=== PATIENT | male | born 1945 | race Caucasian/White ===

== ENCOUNTER 2022-04-25 09:30 | Outpatient (CLI) | payer OTHER, SELFPAY ==
--- NOTE | ~2022-04-25 | US_ITS ---
EXAMINATION: US abdomen complete DATE: 04/25/2022 10:06 INDICATION: Secondary thrombocytopenia TECHNIQUE: Multiple grayscale and Doppler ultrasound images of the abdomen were obtained. COMPARISON: None available FINDINGS: The head of the pancreas appears normal. The remainder of the pancreas is obscured by bowel gas. The liver is normal with normal echogenicity and echotexture. No surface nodularity. Normal hep atopetal flow in the main portal vein. The gallbladder is normal with no abnormal wall thickening, pe richolecystic fluid or stones. The normal common bile duct measures 5 mm. There was no sonographic Mu rphy sign. The visualized portions of the aorta and inferior vena cava are normal. The right kidney measures 10.6 x 5.3 x 5.7 cm. The left kidney measures 11.5 x 4.7 x 4.5 cm. The kidn eys demonstrate normal parenchymal echogenicity. There is no hydronephrosis. Punctate echogenic foci scattered throughout the spleen are consistent with old granulomatous disease. The spleen is otherwis e normal in appearance and measures 11.1 cm. IMPRESSION: 1. No sonographic correlate for the patient's symptoms. Reviewed, dictated and finalized at location A.
== END 2022-04-25 09:31 | disposition home or self-care (01) ==
PROVIDERS: PCP Internal Medicine; Visit Provider Internal Medicine Hematology & Oncology
DX: D69.59 Other secondary thrombocytopenia (principal)
CPT/HCPCS: 76700

== ENCOUNTER 2022-05-09 12:36 | Outpatient (CLI) | payer OTHER, SELFPAY ==
--- NOTE | ~2022-05-09 | PE_ITS ---
EXAMINATION: PET skull to mid thigh DATE: 05/09/2022 15:07 INDICATION: Non-Hodgkin's lymphoma of intra-abdominal lymph nodes TECHNIQUE: Blood glucose level was 91 mg/dL. 12.38 mCi of 18-fluorodeoxyglucose (18-FDG) was administ ered i.v. Low dose computed tomography (CT) images were acquired from the base of the brain to the pr oximal thighs for attenuation correction and anatomic localization. Positron emission tomography (PET ) images were acquired in the same distribution beginning 60 minutes after injection. The dose-length product (DLP) was 480.34 mGy-cm. COMPARISON: None FINDINGS: Head/neck: FDG uptake in the oral cavity without suspicious CT correlate is likely physiologic. No ab normal FDG uptake is identified. There are no pathologically enlarged lymph nodes. Chest: No abnormal FDG uptake is identified. The lungs are free of acute opacities. No pleural effusi on or pneumothorax. No pathologically enlarged thoracic lymph nodes are identified. The heart size is normal. Calcified pulmonary nodules and calcified left hilar lymph nodes are consistent with old gra nulomatous disease. Abdomen/pelvis/proximal thighs: Physiologic FDG activity is present in the bowel and urinary tract. T he liver, pancreas, gallbladder, and adrenal glands are normal. Punctate calcifications in an otherwi se normal spleen likely represent healed granulomatous disease. Although limited by the absence of in travenous contrast, there is an apparent confluent mass of lymph nodes in the small bowel mesentery m easuring approximately 7.6 x 3.8 cm. No definite associated FDG uptake is identified. Nearby FDG upta ke appears to be associated with bowel adjacent to the mass. There is no free intraperitoneal gas. Musculoskeletal: No abnormal FDG uptake is identified. There are changes of anterior fusion from C4 t hrough C6 and cervical spine. There is grade 1 anterolisthesis of L5 on S1 with bilateral L5 pars def ects. IMPRESSION: 1. Apparent confluent mass of lymph nodes in the small bowel mesentery without definite associated FD G uptake. Nearby FDG uptake appears to be associated with bowel adjacent to the mass. No lymphadenopa thy above the diaphragm. Reviewed, dictated and finalized at location B. IMPRESSION: 1. Apparent confluent mass of lymph nodes in the small bowel mesentery without definite associated FDG uptake. Nearby FDG uptake appears to be associated with bowel adjacent to the mass. No lymphadenopathy above the diaphragm.
[2022-05-09 13:27] LABS: Glucose Point of Care 91 mg/dl (65-105)
== END 2022-05-09 12:37 | disposition home or self-care (01) ==
PROVIDERS: PCP Internal Medicine; Visit Provider Internal Medicine Hematology & Oncology
DX: C85.93 Non-Hodgkin lymphoma, unspecified, intra-abdominal lymph nodes (principal)
CPT/HCPCS: 78815; A9552

== ENCOUNTER 2022-05-17 09:15 | Outpatient (CLI) | payer OTHER, SELFPAY ==
[2022-05-17 09:32] LABS: Basophils Percent Auto 0.3 % (0.2-1.2); Eosinophils Absolute Auto 0.1 K/mm3 (0-0.3); Eosinophils Percent Auto 2.6 % (0-4.4); Hematocrit 30.4 % (42.0-52.0); Hemoglobin 8.7 g/dL (14.0-18.0); Immature Granulocyte Absolute 0.02 K/mm3 (0.00-0.031); Immature Granulocyte Percent A 0.5 % (0-0.5); Lymphocytes Absolute Auto 0.69 K/mm3 (0.9-3.2); Lymphocytes Percent Auto 17.7 % (18.3-44.2); Mean Corpuscular HGB Conc 28.6 g/dl (32-36); Mean Corpuscular Hemoglobin 25.7 pg (26-34); Mean Corpuscular Volume 89.9 fl (80-100); Mean Platelet Volume 11.3 fl (7.4-10.4); Monocytes Absolute Auto 0.4 K/mm3 (0.1-0.6); Neutrophils Absolute Auto 2.7 K/mm3 (1.3-6.7); Neutrophils Percent Auto 68.9 % (45.5-73.1); Platelet Count Result 167 k/mm3 (150-375); Red Blood Count 3.38 M/mm3 (4.6-6.20); Red Cell Distribution Width 17.6 % (11.5-14.5); White Blood Count 3.9 K/mm3 (4.5-10.0)
[2022-05-17 09:38] LABS: Hypochromasia 1+ (NORMAL); Platelet Estimate Adequate (Adequate)
[2022-05-17 09:39] LABS: Anisocytosis 1+ (NORMAL); Ovalocytes 1+ (NORMAL); Poikilocytosis 1+ (NORMAL)
[2022-05-17 13:19] LABS: Iron 86 ug/dL (49-181)
[2022-05-17 13:26] LABS: Lactate Dehydrogenase 451 U/L (313-618)
[2022-05-17 13:32] LABS: Percent Iron Saturation 19 % (20-50)
[2022-05-17 14:30] LABS: Vitamin B12 < 159.0 pg/mL (239-931)
== END 2022-05-17 09:16 | disposition home or self-care (01) ==
LOC: ANHLAB 09:17
PROVIDERS: Visit Provider Internal Medicine Hematology & Oncology
DX: D64.9 Anemia, unspecified (principal)
CPT/HCPCS: 36415; 82607; 82728; 83540; 83550; 83615; 85025

== ENCOUNTER 2022-06-30 07:39 | Outpatient (CLI) | payer OTHER, SELFPAY ==
--- NOTE | ~2022-06-30 | CT_ITS ---
EXAMINATION: CT abdomen pelvis w con INDICATION: Mesenteric lymphadenopathy TECHNIQUE: Computed tomographic images of the abdomen and pelvis were obtained after the administrati on of 100 cc of Omnipaque 350 intravenous contrast. The dose-length product (DLP) was 463.52 mGy-cm. Automated exposure control and iterative reconstruction technique were employed. COMPARISON: PET/CT, 05/09/2022 FINDINGS: Minimal dependent atelectasis is present in the lung bases. Cardiomegaly is noted. Calcifie d left hilar lymph nodes are consistent with old granulomatous disease. There is nodularity of the li rob surface. Punctate calcifications in an otherwise normal spleen likely represent healed granulomat ous disease. The pancreas, gallbladder, and adrenal glands are normal. The kidneys are unremarkable. There is calcified atherosclerosis of the aorta and many of the other arteries. There is an approxima tely 8.5 x 4.7 cm infiltrating soft tissue mass of the small bowel mesentery. There is a 3.0 x 1.9 x 6.1 cm soft tissue mass anteriorly in the left lower quadrant (image 154). There is a 4.6 x 2.4 x 5.5 cm soft tissue mass anteriorly in the right lower quadrant (image 149). Although difficult to discer n from bowel on the comparison PET/CT, these appear to be stable in size. There is no free intraperit singh gas or evidence of bowel obstruction. IMPRESSION: 1. Infiltrating soft tissue mass of the small bowel mesentery and bilateral pelvic masses, grossly st able, which could reflect non-Hodgkin's lymphoma. 2. Cirrhosis. Reviewed, dictated and finalized at location B. IMPRESSION: 1. Infiltrating soft tissue mass of the small bowel mesentery and bilateral pel naeem masses, grossly stable, which could reflect non-Hodgkin's lymphoma. 2. Cirrhosis.
[2022-06-30 08:08] LABS: Estimated Glomerular Filt Rate > 60
== END 2022-06-30 07:40 | disposition home or self-care (01) ==
LOC: ANHIMG 07:44
PROVIDERS: PCP Internal Medicine; Visit Provider Internal Medicine Hematology & Oncology
DX: R59.0 Localized enlarged lymph nodes (principal); K76.0 Fatty (change of) liver, not elsewhere classified
CPT/HCPCS: 74177; Q9967

== ENCOUNTER 2022-10-25 08:28 | Outpatient (CLI) | payer OTHER, SELFPAY ==
--- NOTE | ~2022-10-25 | CT_ITS ---
Clinical Indication: Lymphadenopathy CT Scan of the Chest, Abdomen, and Pelvis with Contrast: Technique: Contiguous sections were acquired throughout the chest, abdomen, and pelvis after intraven ous administration of 100 cc of Omnipaque 350. Dose reduction technique was used on this scan by rosalia nunez automated exposure control and iterative reconstruction technique. The dose-length product (DL P) was 597.28 mGy-cm. COMPARISON: 06/30/2022 Findings: There is no evidence of any significant mediastinal, hilar or axillary lymphadenopathy. Small calcifi ed mediastinal and left hilar lymph nodes are present. There are extensive coronary artery calcificat ions, with pacemaker device. No aortic aneurysm or dissection. There is no evidence of pleural or pericardial effusion. The lungs are clear. No pulmonary nodules or infiltrates are noted. The liver, pancreas, gallbladder, adrenals and kidneys are within normal limits. Calcified splenic gr anulomas noted. No evidence of aortic aneurysm. No lymphadenopathy. No bowel obstruction or bowel wall thickening. There is no evidence to suggest acute appendicitis. Co nfluent soft tissue density in the central mesenteric region, encasing enhancing vessels is again pre sent, probably minimally improved in terms of extent from prior exam. Urinary bladder is unremarkable. Prostate gland is enlarged. There are homogeneous soft tissue densit y masslike lesions just deep to the bilateral inferior rectus abdominis muscles, right lesion larger than left (coronal image 37 for example). Right-sided lesion is similar to prior exam, the left-sided lesion may be minimally decreased. Bilateral L5 pars interarticularis defects are present, with grade 1 anterolisthesis of L5 over S1. Impression: Central mesenteric soft tissue density masslike lesion, with additional pelvic masses just deep to th e rectus abdominis musculature, as detailed above. Findings are compatible with lymphoma, stable to m inimally improved from prior exam. Reviewed, dictated and finalized at location M. 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 Findin gs are compatible with lymphoma, stable to minimally improved from prior exam.
[2022-10-25 09:48] LABS: Estimated Glomerular Filt Rate > 60
== END 2022-10-25 08:29 | disposition home or self-care (01) ==
PROVIDERS: PCP Internal Medicine; Visit Provider Internal Medicine Hematology & Oncology
DX: R59.1 Generalized enlarged lymph nodes (principal)
CPT/HCPCS: 71260; 74177; Q9967

== ENCOUNTER 2022-12-14 02:27 | Outpatient (CLI) | payer OTHER, SELFPAY ==
--- NOTE | 2022-11-29 15:31 | PC.NURSE ---
Pre Radiology instructions Report to the outpatient [facility] on date _12/06/22 AT 0900____ Procedure Time: 1100____ YOU MAY BE MONITORED AT HOSPITAL FOR UP TO 4 HOURS AFTER YOUR PROCEDURE. A visitors will be allowed to accompany the patient into the hospital. ?The visitor will be instructed to remain with patient at all times or leave the building due to restrictions.? We will allow the visitor to come back to the postoperative area when patient is ready.? NO children visitors allowed at this time. You and your visitor will be asked to self-screen and do not enter if you have any COVID symptoms. A mask is OPTIONAL within the hospital. Patients are to have no food or drink 6 hours prior to procedure time Driving will be restricted after the procedure, you must have a person to drive you home. Labs will be drawn in preop area and once reviewed, you will be taken to radiology area for procedure. When the procedure is completed, you will be taken to outpatient where you will be monitored for several hours. You may have one visitor in this area. Other than holding anti-coagulants, patient may take other medication(s) as scheduled. Prior to your appointment date patients are instructed to hold anti-coagulants after discussing with ordering provider to stop. If unable to discontinue anti-coagulants please notify radiologist. ? No aspirin or warfarin (Coumadin) for 7 days prior to the procedure. ? No clopidogrel (Plavix), ticagrelor (Brilinta), prasugrel (Effient) or dabigatran (Pradaxa) for 5 days prior to the procedure. ? No rivaroxaban (Xarelto), apixaban (Eliquis), dipyridamole (Aggrenox or Persantine) or cilostazol (Pletal) for 2 days prior to the procedure. Medications to discontinue per physician: __ELIQUIS_2 DAYS Date to take last dose: _12/03/22 Please leave all valuables, including medications, at home the day of procedure. The hospital will not accept responsibility for valuables. Wear comfortable, loose fitting clothing.? Follow any additional instructions given to you from ordering provider. Telephone instructions given to _PATIENT and asked if any additional questions and then verbalized understanding. Patient advised to call scheduling provider office or registration scheduling [phone] if any additional questions.
[2022-11-29 15:50] VITALS: BMI 27.6
--- NOTE | 2022-12-06 11:25 | PC.NURSE ---
Pre Radiology instructions Report to the outpatient [facility] on date _9:00AM ON 12/14/22____ Procedure Time: _11:00AM___ YOU MAY BE MONITORED AT HOSPITAL FOR UP TO 4 HOURS AFTER YOUR PROCEDURE. A visitors will be allowed to accompany the patient into the hospital. ?The visitor will be instructed to remain with patient at all times or leave the building due to restrictions.? We will allow the visitor to come back to the postoperative area when patient is ready.? NO children visitors allowed at this time. You and your visitor will be asked to self-screen and do not enter if you have any COVID symptoms. A mask is OPTIONAL within the hospital. Patients are to have no food or drink 6 hours prior to procedure time--5:00AM Driving will be restricted after the procedure, you must have a person to drive you home. Labs will be drawn in preop area and once reviewed, you will be taken to radiology area for procedure. When the procedure is completed, you will be taken to outpatient where you will be monitored for several hours. You may have one visitor in this area. Other than holding anti-coagulants, patient may take other medication(s) as scheduled. Prior to your appointment date patients are instructed to hold anti-coagulants after discussing with ordering provider to stop. If unable to discontinue anti-coagulants please notify radiologist. ? No aspirin or warfarin (Coumadin) for 7 days prior to the procedure. ? No clopidogrel (Plavix), ticagrelor (Brilinta), prasugrel (Effient) or dabigatran (Pradaxa) for 5 days prior to the procedure. ? No rivaroxaban (Xarelto), apixaban (Eliquis), dipyridamole (Aggrenox or Persantine) or cilostazol (Pletal) for 2 days prior to the procedure. Medications to discontinue per physician: __HOLD ELIQUIS 2 DAYS PRE0 OP Date to take last dose: __12/11/22 Please leave all valuables, including medications, at home the day of procedure. The hospital will not accept responsibility for valuables. Wear comfortable, loose fitting clothing.? Follow any additional instructions given to you from ordering provider. Telephone instructions given to _PATIENT and asked if any additional questions and then verbalized understanding. Patient advised to call scheduling provider office or registration scheduling [phone] if any additional questions.
--- NOTE | ~2022-12-14 | CT_ITS ---
EXAMINATION: CT bx lymph node DATE: 12/14/2022 11:42 INDICATION: Abdominal lymphadenopathy. TECHNIQUE: The procedure including the risks, benefits, and alternatives was discussed with the patie nt. Risks discussed included bleeding and infection. The patient verbalized understanding of the risk s and agreed to proceed. The skin overlying the abdomen was prepped and draped in usual sterile fash ion. Anesthetic was administered with 1% lidocaine subcutaneously. A 16 gauge outer needle was adva nced under CT guidance into the right inferior epigastric lymphadenopathy. An 18 gauge core biopsy ne edle was then used to obtain 6 core biopsy specimens. The mA was adjusted according to patient size. Iterative reconstruction technique was employed. The dose-length product was 164.12 mGy-cm. The needl e was removed and the entry site was cleaned and dressed. There were no immediate complications. FINDINGS: CT images demonstrate the outer needle tip in a 5.7 x 2.8 cm jered mass in the right inferi or epigastric chain. IMPRESSION: 1. CT-guided core needle biopsy of right inferior epigastric lymphadenopathy. Reviewed, dictated and finalized at location A. 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
[2022-12-14 08:05] VITALS: BP 152/57; PULSE 64; RESP 18; TEMP 37.7; O2SAT 97; BMI 27.1
[2022-12-14 08:51] LABS: Platelet Count Result 126 k/mm3 (150-375)
[2022-12-14 09:02] LABS: INR 1.1; Prothrombin Time 13.5 Seconds (11.1-14.7)
[2022-12-14 11:40] VITALS: BP 152/70; PULSE 62; RESP 18; O2SAT 97
[2022-12-14 11:51] LABS: Glucose Point of Care 107 mg/dl (65-105)
[2022-12-14 12:10] VITALS: BP 155/67; PULSE 62; RESP 18; O2SAT 96
[2022-12-14 12:40] VITALS: BP 141/65; PULSE 60; RESP 16; O2SAT 96
== END 2022-12-14 12:49 | disposition home or self-care (01) ==
PROVIDERS: Radiology Diagnostic Radiology; PCP Internal Medicine; Referring Provider Internal Medicine Hematology & Oncology; Visit Provider Radiology Diagnostic Radiology
PROC: (CPT 77012; principal; 2022-12-14 11:00)
DX: C85.13 Unspecified B-cell lymphoma, intra-abdominal lymph nodes (principal)
CPT/HCPCS: 36415; 38505; 82948; 85049; 85610; 88305; 88341; 88342

== ENCOUNTER 2023-02-15 09:56 | Outpatient (CLI) | payer OTHER, SELFPAY ==
[2023-02-15 11:03] LABS: Basophils Percent Auto 0.3 % (0.2-1.2); Eosinophils Absolute Auto 0.1 K/mm3 (0-0.3); Eosinophils Percent Auto 3.7 % (0-4.4); Hematocrit 40.5 % (42.0-52.0); Immature Granulocyte Absolute 0.01 K/mm3 (0.00-0.031); Immature Granulocyte Percent A 0.3 % (0-0.5); Immature Platelet Fraction Pct 9.6 % (0.9-11.2); Lymphocytes Absolute Auto 0.63 K/mm3 (0.9-3.2); Lymphocytes Percent Auto 19.4 % (18.3-44.2); Mean Corpuscular HGB Conc 32.1 g/dl (32-36); Mean Corpuscular Hemoglobin 31.3 pg (26-34); Mean Corpuscular Volume 97.6 fl (80-100); Mean Platelet Volume 12.4 fl (7.4-10.4); Monocytes Absolute Auto 0.4 K/mm3 (0.1-0.6); Monocytes Percent Auto 11.7 % (2.6-8.5); Neutrophils Absolute Auto 2.1 K/mm3 (1.3-6.7); Neutrophils Percent Auto 64.6 % (45.5-73.1); Platelet Count Result 103 k/mm3 (150-375); Red Blood Count 4.15 M/mm3 (4.6-6.20); Red Cell Distribution Width 17.5 % (11.5-14.5); White Blood Count 3.2 K/mm3 (4.5-10.0)
[2023-02-15 11:10] LABS: INR 1.4; Prothrombin Time 16.6 Seconds (11.1-14.7)
[2023-02-15 11:11] LABS: Partial Thromboplastin Time 29.9 SECONDS (22.3-36.8)
[2023-02-15 11:16] LABS: Anion Gap 7 mmol/L (8-16); Blood Urea Nitrogen 16 mg/dL (9-20); Calcium 9.7 mg/dL (8.4-10.2); Carbon Dioxide 28 mmol/L (22-30); Chloride 101 mmol/L (98-107); Estimated Glomerular Filt Rate > 60; Glucose 167 mg/dL (65-110); Sodium 136 mmol/L (137-145)
== END 2023-02-15 09:57 | disposition home or self-care (01) ==
LOC: ANHSURGERY 10:00
PROVIDERS: Anesthesiology; PCP Internal Medicine; Visit Provider Surgery
DX: Z01.818 Encounter for other preprocedural examination (principal); E11.9 Type 2 diabetes mellitus without complications; C85.90 Non-Hodgkin lymphoma, unspecified, unspecified site
CPT/HCPCS: 36415; 80048; 85025; 85055; 85610; 85730

== ENCOUNTER 2023-02-22 02:11 | Day surgery (SDC) | payer OTHER, SELFPAY ==
[2023-02-14 09:33] VITALS: BMI 30.9
--- NOTE | 2023-02-14 10:00 | PC.NURSE ---
PRE-OP INSTRUCTIONS, PLEASE READ CAREFULLY Report to the Outpatient Waiting Room, entrance under the green pavilion located off [facility], at time _0800_ on date _02/22/23_. Planned Procedure Time: _1000_. Time changes happen often and if your time is changed the preop area will call you the afternoon before. - You and your visitor will be asked to self-screen and do not enter if you have any COVID symptoms. - A mask is optional within the hospital at this time. Patients may have clear liquids (water, carbonated beverages, clear teas, apple juice) until 3 hours prior to surgery (0700 AM) with a maximum of 20 ounces. - No food from midnight until time of surgery Take the following medications with a SIP of water the morning of surgery: _METOPROLOL_ DO NOT STOP ANY OF YOUR OTHER PRESCRIPTION MEDICATIONS PRIOR TO SURGERY ?EXCEPT THE FOLLOWING Medications to discontinue per DR. GARCIA - _ELIQUIS 3 DAYS PRIOR TO SURGERY, Date to take last dose 02/18/23_ Please no make-up, nail persian, hairspray, perfume, deodorant, or body powder the day of surgery. No jewelry (including any body piercings) or valuables the day of surgery, leave them at home. Please take a shower or bath the night before, or the morning of, surgery with an antibacterial soap. Wear comfortable, loose fitting clothing. - Jewelry must be removed prior to entering the operating room. Rings and piercings that are not removed may be cut off. - The hospital will not accept responsibility for valuables. - Please leave all valuables, including medications, at home the day of surgery. If you are going home after surgery, a licensed hole digger truck driver must drive you home. - NO public transportation without another adult if you receive anesthesia. - We recommend that an adult stay with you for 24 hours following discharge. - We also recommend that you do not drive, make important decision, drink alcoholic beverages, or take any drugs that were not prescribed by your health care provider for at least 24 hours after your discharge time. Follow any additional instructions given to you from your surgeon. If you or anyone in your household have experienced Covid symptoms in the past week, please notify your surgeon or the nurse liaison at the phone number below for possible testing. Telephone instructions given to _PATIENT & SPOUSE (THOR)_and asked if any additional questions and then verbalized understanding. Patient advised to call surgeon office or pre surgery nurse liaison [phone] if any additional questions.
--- NOTE | ~2023-02-22 | XR_ITS ---
EXAMINATION: XR fl guide central line place DATE: 02/22/2023 11:35 INDICATION: Port catheter insertion TECHNIQUE: 2 fluoroscopic images of the central chest were obtained during right-sided port catheter insertion performed by Dr. Butcher. Radiologist was not present for the imaging or procedure. The amount of fluoroscopy time used during this procedure was 0.6 minutes. COMPARISON: None. FINDINGS: Distal tip of a right internal jugular central venous catheter projects over the mid superior vena ca va. Also extending through the inferior vena cava towards the heart and beyond the margins of the fie ld-of-view are a pair of cardiac pacemaker leads. No evident pneumothorax at the visualized right ape x. Caudal aspect of a likely plate-screw fixation for lower cervical anterior spinal fusion seen at t he cephalad margin of one of the images. IMPRESSION: 1. Right internal jugular central venous catheter tip in the midsuperior vena cava. Reviewed, dictated and finalized at location A. IMPRESSION: 1. Right internal jugular central venous catheter tip in the midsuperior vena c vandana.
--- NOTE | ~2023-02-22 | XR_ITS ---
XR chest port-a-cath/central DATE: 02/22/2023 11:53 INDICATION: Right Port-A-Cath insertion TECHNIQUE: Portable AP views on February 23, 2020 01/13/1943 and 1144 hours COMPARISON: None FINDINGS: Right internal jugular Port-A-Cath catheter, the distal tip of the catheter overlying the s uperior vena cava. Left-sided dual-lead pacemaker with leads overlying right atrium and right ventricle. Normal heart si ze. Is aortic arch calcification, mild aortic unfolding. No hilar or mediastinal enlargement is evident. There is mild elevation of the right diaphragm. There is old pulmonary granulomas disease. No pulmona ry infiltrate or consolidation, pleural effusion or pulmonary vascular congestion or pneumothorax. Status post anterior cervical spine surgical fusion. IMPRESSION: Right Port-A-Cath catheter tip overlies superior vena cava; no evidence of pneumothorax Reviewed, dictated and finalized at Location A. Reviewed, dictated and finalized at location L. IMPRESSION: Right Port-A-Cath catheter tip overlies superior vena cava; no evid ence of pneumothorax
[2023-02-22 08:30] VITALS: BP 145/57; PULSE 60; RESP 16; TEMP 36.7; O2SAT 97
[2023-02-22] MEDS: LACTATED RINGERS 1,000 ML 30 ML IV CONT (08:30)
[2023-02-22 08:32] LABS: Glucose Point of Care 128 mg/dl (65-105)
--- NOTE | 2023-02-22 08:47 | WPDANESEPPF ---
Anes - Initial Pre Proc Eval Procedure: Operation Date: 02/22/23 10:00 Proposed Procedures p Insertion Enzo Cath - West Butcher MD Date/Time: 02/22/23 08:47 Surgeon: West Butcher MD Pre Op Diagnosis: Non Hodgkins Lymphoma Patient Data Age: 77 Gender: M Height: 1.63 m Weight: 81.8 kg Allergies Allergy/AdvReac Type Severity Reaction Status Date / Time cefditoren AdvReac Rash Verified 02/22/23 08:46 tetracycline AdvReac Rash Verified 02/22/23 08:46 Home Medications Medication Instructions Recorded Confirmed Type apixaban 5 mg tablet (Eliquis) 5 mg PO BID 06/19/22 02/22/23 History cholecalciferol (vitamin D3) 25 25 mcg PO DAILY 06/19/22 02/22/23 History mcg (1,000 unit) capsule empagliflozin 25 mg tablet 25 mg PO QAM 06/19/22 02/22/23 History (Jardiance) ferrous sulfate 325 mg (65 mg 325 mg PO BID 06/19/22 02/22/23 History iron) capsule,extended release fluticasone propionate 50 2 spray intranasal DAILY 06/19/22 02/22/23 History mcg/actuation nasal spray,suspension metoprolol succinate 50 mg 50 mg PO BID 06/19/22 02/22/23 History tablet,extended release 24 hr (Toprol XL) nystatin 100,000 unit/gram topical 1 applic topical BID PRN MOUTH 06/19/22 02/22/23 History cream SORES omeprazole 40 mg capsule,delayed 40 mg PO BID 06/19/22 02/22/23 History release simvastatin 20 mg tablet (Zocor) 20 mg PO DAILY 06/19/22 02/22/23 History cyanocobalamin (vitamin B-12) 1,000 mcg PO DAILY 11/29/22 02/22/23 History 1,000 mcg tablet hydrochlorothiazide 12.5 mg tablet 12.5 mg PO DAILY 11/29/22 02/22/23 History vitamin E 400 unit tablet 400 unit PO DAILY 11/29/22 02/22/23 History sitagliptin phosphate 50 mg tablet 50 mg PO BID 12/06/22 02/22/23 History (Januvia) lisinopril 30 mg tablet 30 mg QAM 02/14/23 02/22/23 History metformin 1,000 mg tablet 1,000 mg BID 02/14/23 02/22/23 History Laboratory Tests 02/22/23 02/22/23 08:29 08:34 PT Pending INR Pending APTT Pending POC Capillary Glucose 128 mg/dl H mg/dl (65-105) Patient hx anesthesia problems: none Family hx anesthesia problems: none Results Review: All pre-operative results and documents have been reviewed as part of the pre-operative evaluation. [facility] Past Medical History Medical History (Updated 02/22/23 @ 08:48 by Feliciano Chen MD) Cardiac defibrillator in place Diabetes NHL (non-Hodgkin's lymphoma) Pacemaker Surgical History Surgical History (Updated 02/22/23 @ 08:48 by Feliciano Chen MD) S/P cervical spinal fusion Social History Social History Smoking status: Former smoker Second hand tobacco smoke exposure: No Additional smoking assessment comments: PT UNABLE TO RECALL SMOKING HX - STATES QUIT 25 YRS AGO OR SO Alcohol intake: never Substance use: never Substance use type: does not use Living arrangements: with family Spiritual care concerns: No Anes - Eval Final PreProcedure Day of Procedure 02/22/23 08:47 Patient weight: obese Heart: regular rate and rhythm Lungs: clear to auscultation Airway: Mallampati scale class II Neurological: alert and oriented Last oral intake: >/= 8 hours ASA classification: III Emergent: no Anesthetic plan: proceed Anesthesia type and monitoring: general GIVS and standard monitoring Results Review: All pre-operative results and documents have been reviewed as part of the pre-operative evaluation. Informed Consent: The patient's anesthetic plan and its attendant risks and benefits were discussed with the patient/family/POA. Questions were solicited and answers provided to the satisfaction of the patient/family/POA.
[2023-02-22] MEDS: KETOROLAC 15 MG/ML VIAL (*BKC) IV PUSH (08:49)
[2023-02-22 08:54] LABS: INR 1.1; Prothrombin Time 13.7 Seconds (11.1-14.7)
[2023-02-22 08:55] LABS: Partial Thromboplastin Time 25.5 SECONDS (22.3-36.8)
--- NOTE | 2023-02-22 10:13 | PM.IMHP ---
H&P: HPI History of Present Illness Date/Time: 02/22/23 10:13 Chief Complaint: Non Hodgekin's lymphoma Narrative: Pt with recent dx of Non Hodgekin's lymphoma with abdominal lymphadenopathy. He is to start chemotherapy treatments next week. He has never had a port in the past but did have a pacemaker/defibrillator placed about 1 year ago via the left sided veins. The pacemaker is in the left upper anterior chest. He is on Eliquis but has not taken it for the past 3 days. Review of Systems Review of Systems: The remainder of the review of systems to include constitutional, HEENT, cardiovascular, respiratory, GI, , integumentary, musculoskeletal, endocrine, immunologic, hematologic, psychiatric, and neurologic are all negative except for which is mentioned above in the HPI. [facility] Past Medical History Medical History Cardiac defibrillator in place Diabetes NHL (non-Hodgkin's lymphoma) Pacemaker Surgical History Surgical History S/P cervical spinal fusion Social History Social History Smoking status: Former smoker Second hand tobacco smoke exposure: No Additional smoking assessment comments: PT UNABLE TO RECALL SMOKING HX - STATES QUIT 25 YRS AGO OR SO Alcohol intake: never Substance use: never Substance use type: does not use Living arrangements: with family Spiritual care concerns: No Meds Home Medications and Allergies Home Medications Medication Instructions Recorded Confirmed Type apixaban 5 mg tablet (Eliquis) 5 mg PO BID 06/19/22 02/22/23 History cholecalciferol (vitamin D3) 25 25 mcg PO DAILY 06/19/22 02/22/23 History mcg (1,000 unit) capsule empagliflozin 25 mg tablet 25 mg PO QAM 06/19/22 02/22/23 History (Jardiance) ferrous sulfate 325 mg (65 mg 325 mg PO BID 06/19/22 02/22/23 History iron) capsule,extended release fluticasone propionate 50 2 spray intranasal DAILY 06/19/22 02/22/23 History mcg/actuation nasal spray,suspension metoprolol succinate 50 mg 50 mg PO BID 06/19/22 02/22/23 History tablet,extended release 24 hr (Toprol XL) nystatin 100,000 unit/gram topical 1 applic topical BID PRN MOUTH 06/19/22 02/22/23 History cream SORES omeprazole 40 mg capsule,delayed 40 mg PO BID 06/19/22 02/22/23 History release simvastatin 20 mg tablet (Zocor) 20 mg PO DAILY 06/19/22 02/22/23 History cyanocobalamin (vitamin B-12) 1,000 mcg PO DAILY 11/29/22 02/22/23 History 1,000 mcg tablet hydrochlorothiazide 12.5 mg tablet 12.5 mg PO DAILY 11/29/22 02/22/23 History vitamin E 400 unit tablet 400 unit PO DAILY 11/29/22 02/22/23 History sitagliptin phosphate 50 mg tablet 50 mg PO BID 12/06/22 02/22/23 History (Januvia) lisinopril 30 mg tablet 30 mg QAM 02/14/23 02/22/23 History metformin 1,000 mg tablet 1,000 mg BID 02/14/23 02/22/23 History Allergies Allergy/AdvReac Type Severity Reaction Status Date / Time cefditoren AdvReac Rash Verified 02/22/23 08:46 tetracycline AdvReac Rash Verified 02/22/23 08:46 Vital Signs Vital Signs - 24 hr 02/22/23 08:30 Temperature 36.7 C Pulse Rate 60 Respiratory Rate 16 Blood Pressure 145/57 H Pulse Oximetry 97 Oxygen Delivery Room Air Exam Const: General: comfortable and no acute distress Eyes: General: appearance normal, both eyes and all related structures Sclera: sclerae normal Pupils: Equal, round and reactive pupils present Neck: Neck: supple and no JVD Lymphatic: lymphadenopathy (No cervical LAD) Chest: Other: Left upper anterior chest pacemaker in place. Resp: Effort & Inspection: normal respiratory effort Auscultation: clear to auscultation bilaterally Cardio: Rate: regular rate Rhythm: regular rhythm GI: GI Palp: Yes Soft to palpation, No Firmness to palpation present (GI), No Tenderness to palpation present (GI), N
--- NOTE | 2023-02-22 10:20 | WPDHPUPDATE1 ---
History and Physical Update Update Date/Time: 02/22/23 10:20 History and Physical has been reviewed, including an updated exam of the patient. There are NO changes in the patient's condition. Risks, benefits, and alternatives have been discussed and questions answered. Patient agrees to proceed with procedure.
[2023-02-22] MEDS: ceFAZolin 2 GM/D5W 50 ML 2 GM/50 ML BAG IVPB (10:30)
[2023-02-22] MEDS: HEPARIN SODIUM 5,000 UNITS/ML VIAL 5000 UNITS IRRIGATION (10:51)
[2023-02-22] MEDS: LIDO 1%/EPINEPHRINE 1:100,000 50 ML VIAL 15 ML INFILTRATE (11:02)
[2023-02-22] MEDS: BUPivacaine HCL 0.5% PF 30 ML VIAL 15 ML INFILTRATE (11:03)
--- NOTE | 2023-02-22 11:35 | W.PM.PROC2 ---
Procedure Note - Detailed Date of Procedure 02/22/23 Pre-op Diagnosis Non Hodgkins Lymphoma Post-op Diagnosis Same Procedure Performed Ultrasound-guided placement of right internal jugular vein single-lumen port a catheter with intraoperative fluoroscopy. Surgeon West Butcher MD Machine Builder Joy Watkins, [facility] Anesthesia MAC Indications Patient is a 77-year-old gentleman who was recently diagnosed with Hodgkin's lymphoma with abdominal lymphadenopathy. He presents now for placement of a port a catheter for chemotherapy treatments. Findings None. Description of Procedure After informed consent was obtained the patient brought to the operating room was placed in supine position and then IV sedation was administered by anesthesia. The bilateral upper anterior neck and chest was then prepped and draped in usual sterile fashion. A time-out was then performed correctly identifying the patient as well as procedure to be performed verifying that he had previously been given some preoperative IV antibiotics. The patient already had a left upper anterior chest pacemaker in place and so I approached placing the jeromy catheter into the right-sided central veins. 1% lidocaine mixed with 0.5% Marcaine was injected between the 2 heads of the sternocleidomastoid muscle on the right anterior lateral neck region. Then utilizing real-time ultrasound guidance I imaged the right carotid artery and right internal jugular vein. A 18gauge long spinal needle was then used to percutaneously cannulate the right internal jugular vein under ultrasound guidance in real time. A printed picture of the ultrasound localization of the vein and cannulation with a needle was obtained and placed in the patient's chart. A guidewire was then advanced through the needle into the internal jugular vein and subsequent down into the distal superior vena cava. Intraoperative fluoroscopy was then used to visualize the tip of the guidewire and confirming that it was in the proper position. I then proceeded to anesthetize the area of the port on the right upper anterior chest just below the medial 3rd of the right clavicle. I then used a scalpel to enlarge small incision of the right anterior lateral neck region and then made a transverse incision just below the medial 1/3 of the clavicle. Dissection was carried down through the subcutaneous tissues on the incision until I encountered the right anterior fascia of the pectoralis major muscle. There was electro cautery and blunt finger dissection I created a subcu port pocket below the incision. I then proceeded to advance and a 9.6 Libyan single-lumen catheter between the chest incision and the neck incision. I then advanced a dilator breakaway sheath over the guidewire and then review the guidewire and dilator leaving the sheath in place. The 9.6 Libyan single-lumen catheter was advanced through the sheath into the right internal jugular vein and subsequently down into the right atrium of the heart. Intraoperative fluoroscopy was then used to visualize the tip of the catheter and then I pulled back on the catheter until the tip was at the right atriocaval junction. I then cut the catheter to the appropriate length at the skin level and attached to the Smart Port. The port was then secured the subcutaneous port pocket in 3 positions utilizing 3-0 Prolene sutures. The incisions were then irrigated sterile saline solution hemostasis was good. I then accessed the port and it aspirated blood easily and then flushed easily with heparinized saline solution. The chest incision was then closed utilizing interrupted 3-0 Vicryl sutures in the subcutaneous tissues. Edges were approximated using a running subcuticular 4 Monocryl suture. The small neck incision was closed with a single 4-0 Monocryl suture placed in a U-stitch fashion. Lastly the port was accessed percutaneously and again it jah back blood easily and was flushed with heparinized saline miguel angel
[2023-02-22 11:38] VITALS: BP 106/36; PULSE 96; RESP 16; O2SAT 100
[2023-02-22 12:00] VITALS: BP 107/48; PULSE 60; RESP 20
[2023-02-22 12:30] VITALS: BP 117/45; PULSE 60; RESP 20
== END 2023-02-22 12:33 | disposition home or self-care (01) ==
PROVIDERS: PCP Internal Medicine; Visit Provider Surgery
PROC: (CPT 36561; principal; 2023-02-22 10:00)
DX: C85.93 Non-Hodgkin lymphoma, unspecified, intra-abdominal lymph nodes (principal); E11.9 Type 2 diabetes mellitus without complications; Z95.810 Presence of automatic (implantable) cardiac defibrillator; Z87.891 Personal history of nicotine dependence; Z79.01 Long term (current) use of anticoagulants; Z79.84 Long term (current) use of oral hypoglycemic drugs; Z98.1 Arthrodesis status
CPT/HCPCS: 36561; 36415; 77001; 80048; 82948; 85025; 85055; 85610; 85730; C1788; J0690; J1100; J1644; J1885; J2405; J2704; J3010; J7120

== ENCOUNTER 2023-08-20 09:23 | Outpatient (CLI) | payer OTHER, SELFPAY ==
--- NOTE | ~2023-08-20 | CT_ITS ---
Clinical Indication: Lymphoma CT Scan of the Chest, Abdomen, and Pelvis with Contrast: Technique: Contiguous sections were acquired throughout the chest, abdomen, and pelvis after intraven ous administration of 100 cc of Omnipaque 350. Dose reduction technique was used on this scan by rosalia nunez automated exposure control and iterative reconstruction technique. The dose-length product (DL P) was 510.04 mGy-cm. COMPARISON: 10/25/2022 Findings: Right-sided Mediport and pacemaker device are present. There is no evidence of any significant mediastinal, hilar or axillary lymphadenopathy. Calcified med iastinal and left hilar lymph nodes are present. The mediastinal soft tissues and vascular structures otherwise appear normal. There is no evidence of pleural or pericardial effusion. The lungs are clear. No pulmonary nodules or infiltrates are noted. There is diffuse fatty infiltration of liver. Nodular hepatic contour consistent with cirrhosis. The pancreas, gallbladder, adrenals and kidneys are within normal limits. Spleen is borderline enlarged. No evidence of aortic aneurysm. No lymphadenopathy. No bowel obstruction. There is soft tissue encasement of the central mesenteric vasculature, and abut ting multiple small bowel loops, mildly improved in terms of extent and density as compared to prior exam.. Soft tissue masses seen previously just deep to the inferior rectus abdominis musculature bilaterally , right larger than left, are significantly improved. Right-sided lesion now measures 1.6 cm in maxim um diameter, and the left-sided lesion is nearly completely resolved. Urinary bladder is unremarkable. Prostate gland is enlarged. No ascites. 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 Impression: Partial interval response to therapy. Central mesenteric soft tissue encasing vasculature and abuttin g multiple small bowel loops is decreased in extent and density from prior exam. Soft tissue masses d eep to the inferior rectus abdominis musculature bilaterally are significantly improved. Cirrhotic change of the liver, with diffuse fatty infiltration. Borderline splenomegaly. This may be related to underlying cirrhosis, although lymphomatous involveme nt cannot be completely excluded. Reviewed, dictated and finalized at [facility] M. Impression: Partial interval response to therapy. Central mesenteric soft tissue encasing v asculature and abutting multiple small bowel loops is decreased in extent and d ensity from prior exam. Soft tissue masses deep to the inferior rectus abdomini s musculature bilaterally are significantly improved. Cirrhotic change of the liver, with diffuse fatty infiltration. Borderline splenomegaly. This may be related to underlying cirrhosis, although lymphomatous involvement cannot be completely excluded.
== END 2023-08-20 09:24 | disposition home or self-care (01) ==
PROVIDERS: PCP Internal Medicine; Referring Provider Internal Medicine Gastroenterology; Visit Provider Internal Medicine Hematology & Oncology
DX: C85.93 Non-Hodgkin lymphoma, unspecified, intra-abdominal lymph nodes (principal); K76.0 Fatty (change of) liver, not elsewhere classified; R93.2 Abnormal findings on diagnostic imaging of liver and biliary tract
CPT/HCPCS: 71260; 74177; Q9967

== ENCOUNTER 2023-10-01 13:52 | Outpatient (CLI) | payer OTHER, SELFPAY ==
[2023-10-01 09:37] LABS: Hematocrit 32.2 % (42.0-52.0); Hemoglobin 10.6 g/dL (14.0-18.0); Mean Corpuscular HGB Conc 32.9 g/dl (32-36); Mean Corpuscular Hemoglobin 31.6 pg (26-34); Mean Corpuscular Volume 96.1 fl (80-100); Mean Platelet Volume 10.5 fl (7.4-10.4); Platelet Count Result 127 k/mm3 (150-375); Red Blood Count 3.35 M/mm3 (4.6-6.20); Red Cell Distribution Width 13.3 % (11.5-14.5)
[2023-10-01 13:22] LABS: White Blood Count 0.9 K/mm3 (4.5-10.0)
== END 2023-10-01 13:53 | disposition home or self-care (01) ==
LOC: ANHLAB 13:54
PROVIDERS: PCP Internal Medicine
DX: K56.609 Unspecified intestinal obstruction, unspecified as to partial versus complete obstruction (principal)
CPT/HCPCS: 36415; 85027

== ENCOUNTER 2023-12-24 07:27 | Outpatient (CLI) | payer OTHER, SELFPAY ==
--- NOTE | ~2023-12-24 | CT_ITS ---
Clinical Indication: Non-Hodgkin's lymphoma CT Scan of the Chest, Abdomen, and Pelvis with Contrast: Technique: Contiguous sections were acquired throughout the chest, abdomen, and pelvis after intraven ous administration of 100 cc of Omnipaque 350. Dose reduction technique was used on this scan by rosalia valderramaing automated exposure control and iterative reconstruction technique. The dose-length product (DL P) was 471.23 mGy-cm. COMPARISON: 08/20/2023 Findings: There is no evidence of any significant mediastinal, hilar or axillary lymphadenopathy. The mediastin al soft tissues and vascular structures appear normal. There is no evidence of pleural or pericardial effusion. The lungs are clear. No pulmonary nodules or infiltrates are noted. Nodular liver is consistent with cirrhosis. Calcified splenic granulomas are present. The pancreas, g allbladder, adrenals and kidneys are within normal limits. There are atherosclerotic calcifications o f the aorta. No bowel obstruction or bowel wall thickening. There is probable stable soft tissue encasing the cent ral mesenteric vasculature at the root of the mesentery.. Urinary bladder is unremarkable. Moderate abdominopelvic ascites present. Prostate gland and seminal vesicles are unremarkable. Bilateral L5 pars interarticularis defects are present. Impression: Stable soft tissue encasement of the central mesenteric vasculature, consistent with lymphoma. Cirrhotic liver with moderate abdominopelvic ascites. Reviewed, dictated and finalized at [facility]. 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 Cirrhotic liver with moderate abdominopelvic ascites.
[2023-12-24 07:58] LABS: Estimated Glomerular Filt Rate > 60
== END 2023-12-24 07:28 | disposition home or self-care (01) ==
PROVIDERS: PCP Internal Medicine; Visit Provider Internal Medicine Hematology & Oncology
DX: C85.93 Non-Hodgkin lymphoma, unspecified, intra-abdominal lymph nodes (principal)
CPT/HCPCS: 36415; 71260; 74177; 80048; 82607; 82728; 82746; 83540; 83550; 83615; 85025; 86850; 86900; 86901; 86923; Q9967

== ENCOUNTER 2024-01-02 16:33 | Inpatient (IN) | payer OTHER, SELFPAY ==
[2024-01-02] VITALS (17 sets, daily range): BP systolic 106–135; BP diastolic 45–59; PULSE 60–75; RESP 13–25; TEMP 36.4–36.9; O2SAT 99–100
--- NOTE | ~2024-01-02 | CT_ITS ---
EXAMINATION: CTA abdomen pelvis DATE: 01/02/2024 18:05 INDICATION: Recurrent anemia, guaiac positive stool, history of non-Hodgkin lymphoma TECHNIQUE: Computed tomographic angiography (CTA) of the abdomen and pelvis was performed with 100 mL Omnipaque-350 intravenous contrast. Maximum intensity projection 3D-reconstructions of the aorta and other arteries were constructed by the technologist on a separate workstation. The dose-length produ ct (DLP) was 356.96 mGy-cm. Automated exposure control and iterative reconstruction technique were em ployed. COMPARISON: 12/24/2023 FINDINGS: Minimal dependent atelectasis is present in the lung bases. The heart size is normal. There is cirrhosis of the liver. There is a large volume of ascites. Punctate calcifications in an otherwi se normal spleen likely represent healed granulomatous disease. The pancreas, gallbladder, and adrena l glands are normal. There are perisplenic and epigastric abdominal varices. There is a 3 mm nonobstr ucting stone of the left mid kidney. The right kidney is unremarkable. There is a persistent soft tis elmer density mass of the small bowel mesentery which appears stable but is somewhat obscured by ascite s. No free intraperitoneal gas or evidence of bowel obstruction. No aneurysm or dissection of the abdominal aorta. The celiac axis, superior mesenteric artery, and in ferior mesenteric artery are normal at their origins. There are single renal arteries with mild steno sis seen at the origin of the left renal artery. There is calcified atherosclerosis without hemodynam ically significant stenosis of the pelvic vasculature. No definite correlate for GI bleeding is ident ified. IMPRESSION: 1. No definite correlate for GI bleeding identified. 2. Cirrhosis with portal hypertension. 3. Large volume of ascites. 4. Grossly stable soft tissue density mass of the small bowel mesentery, consistent with history of l ymphoma. Reviewed, dictated and finalized at location F. DIATION BIOANALYTICS CONSULTANT IMPRESSION: 1. No definite correlate for GI bleeding identified. 2. Cirrhosis with portal hypertension. 3. Large volume of ascites. 4. Grossly stable soft tissue density mass of the small bowel mesentery, consis tent with history of lymphoma.
--- NOTE | ~2024-01-02 | US_ITS ---
EXAMINATION: US paracentesis abd w/image DATE: 01/06/2024 11:12 INDICATION: Ascites. TECHNIQUE: The procedure and its risks, benefits, and alternatives were discussed with the patient. P otential risks discussed included bleeding and infection. The skin was prepped and draped in sterile fashion. 1% lidocaine was used for local anesthesia. Under ultrasound guidance, a 5 Fr catheter with trochar was advanced into the ascites in the right lower quadrant. Fluid was aspirated. The catheter was removed, and a dressing was applied. There were no immediate complications. FINDINGS: Ultrasound images demonstrate ascites and the catheter within the fluid. IMPRESSION: 1. Successful ultrasound-guided paracentesis yielding 3300 mL of yellow fluid. Reviewed, dictated and finalized at location A. ITY SYSTEMS SPECIALIST
--- NOTE | ~2024-01-02 | US_ITS ---
EXAMINATION: US paracentesis abd w/image DATE: 01/04/2024 15:57 INDICATION: Ascites. TECHNIQUE: The procedure and its risks, benefits, and alternatives were discussed with the patient. P otential risks discussed included bleeding and infection. The skin was prepped and draped in sterile fashion. 1% lidocaine was used for local anesthesia. Under ultrasound guidance, a 5 Fr catheter with trochar was advanced into the ascites in the right lower quadrant. Fluid was aspirated. The catheter was removed, and a dressing was applied. There were no immediate complications. FINDINGS: Ultrasound images demonstrate ascites and the catheter within the fluid. IMPRESSION: 1. Successful ultrasound-guided paracentesis yielding 2200 mL of clear, yellow fluid. Reviewed, dictated and finalized at location A. R SEWING MACHINE OPERATOR
--- NOTE | 2024-01-02 16:52 | ED.RECABL ---
HPI - Recheck/Abnormal Lab/Rx General Chief Complaint: Recheck/Abnormal Lab/Rx Stated Complaint: low hgb Time Seen by Provider: 01/02/24 16:45 Source: patient and family () Limitations: no limitations History of Present Illness HPI narrative: 78-year-old male past medical history non-Hodgkin's lymphoma/follicular lymphoma (done with therapy at present) presents with report of hemoglobin less than 6. This was obtained on routine labs ordered by his primary care physician, Dr. Moses Conn. He was noted to be anemic recently requiring [address] abdomen pelvis at that time without active bleed. Advised to follow up outpatient with GI for colonoscopy but not yet done. He denies any chest pain difficulty breathing. He has been feeling fatigued and having cold chills. He had covid approximately 1 month ago. No abdominal pain. No fever. Has had a cough. Notes he has chronic diarrhea. Related Data Home Medications Medication Instructions Recorded Confirmed apixaban 5 mg tablet (Eliquis) 5 mg PO BID 06/19/22 01/02/24 cholecalciferol (vitamin D3) 25 25 mcg PO DAILY 06/19/22 01/02/24 mcg (1,000 unit) capsule empagliflozin 25 mg tablet 25 mg PO QAM 06/19/22 01/02/24 (Jardiance) ferrous sulfate 325 mg (65 mg 325 mg PO BID 06/19/22 01/02/24 iron) capsule,extended release fluticasone propionate 50 2 spray intranasal DAILY 06/19/22 01/02/24 mcg/actuation nasal spray,suspension metoprolol succinate 50 mg 50 mg PO BID 06/19/22 01/02/24 tablet,extended release 24 hr (Toprol XL) nystatin 100,000 unit/gram topical 1 applic topical BID PRN MOUTH 06/19/22 01/02/24 cream SORES omeprazole 40 mg capsule,delayed 40 mg PO BID 06/19/22 01/02/24 release simvastatin 20 mg tablet (Zocor) 20 mg PO DAILY 06/19/22 01/02/24 cyanocobalamin (vitamin B-12) 1,000 mcg PO DAILY 11/29/22 01/02/24 1,000 mcg tablet hydrochlorothiazide 12.5 mg tablet 12.5 mg PO DAILY 11/29/22 01/02/24 lisinopril 30 mg tablet 30 mg QAM 02/14/23 01/02/24 metformin 1,000 mg tablet 1,000 mg BID 02/14/23 01/02/24 sucralfate 1 g PO QID 09/04/23 01/02/24 acyclovir 400 mg tablet 400 mg PO BID 12/25/23 01/02/24 aspirin 81 mg tablet 81 mg PO DAILY 12/25/23 01/02/24 Allergies Allergy/AdvReac Type Severity Reaction Status Date / Time cefditoren AdvReac Rash Verified 12/25/23 07:53 tetracycline AdvReac Rash Verified 12/25/23 07:53 [facility] Past Medical History Medical History (Updated 01/03/24 @ 07:18 by Joanna Packer DO) Atrial fibrillation B12 deficiency Cardiac defibrillator in place (~2020) Diabetes GERD (gastroesophageal reflux disease) Hearing loss Hepatitis Hyperlipidemia KINJAL (iron deficiency anemia) NHL (non-Hodgkin's lymphoma) (~02/2023) follicular lymphoma; 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 Perez Pacemaker Skin cancer Surgical History Surgical History (Updated 01/03/24 @ 07:07 by Joanna Packer DO) S/P cervical spinal fusion Status post cataract extraction of both eyes with insertion of intraocular lens Status post implantation of automatic cardioverter/defibrillator (AICD) (~2020) Family History Family History Father Heart problem Mother Heart problem Social History Social History (Updated 01/03/24 @ 07:00 by Joanna Packer DO) Social History: He lives with his of over 40 years. Code status: Full code (per EMR) Surrogate decision maker: Smoking packs per day: 1.5 Smoking cigarettes per day: 30.0 Years smoked: 20 Smoking pack-years: 30.00 Smoking status: Former smoker Tobacco type: cigarettes Second hand tobacco smoke exposure: No Additional smoking assessment comments: PT UNABLE TO RECALL SMOKING HX - STATES QUIT 25 YRS AGO OR SO Alcohol intake: former Substance use: never Substance use type: does not use Do You Feel Safe in your Home?: Yes Lack of Transportation: No Lack of Food: Never True Current Housing:
[2024-01-02 17:17] LABS: Basophils Percent Auto 0.3 % (0.2-1.2); Eosinophils Absolute Auto 0.1 K/mm3 (0-0.3); Eosinophils Percent Auto 2.6 % (0-4.4); Immature Granulocyte Absolute 0.02 K/mm3 (0.00-0.031); Immature Granulocyte Percent A 0.5 % (0-0.5); Lymphocytes Absolute Auto 0.38 K/mm3 (0.9-3.2); Lymphocytes Percent Auto 9.9 % (18.3-44.2); Mean Corpuscular HGB Conc 28.9 g/dl (32-36); Mean Corpuscular Hemoglobin 28.7 pg (26-34); Mean Corpuscular Volume 99.5 fl (80-100); Mean Platelet Volume 11.8 fl (7.4-10.4); Monocytes Absolute Auto 0.6 K/mm3 (0.1-0.6); Monocytes Percent Auto 14.6 % (2.6-8.5); Neutrophils Absolute Auto 2.8 K/mm3 (1.3-6.7); Neutrophils Percent Auto 72.1 % (45.5-73.1); Platelet Count Result 118 k/mm3 (150-375); Red Blood Count 1.95 M/mm3 (4.6-6.20); Red Cell Distribution Width 15.3 % (11.5-14.5); White Blood Count 3.8 K/mm3 (4.5-10.0)
[2024-01-02 17:27] LABS: Alanine Aminotransferase 28 U/L (6-50); Alkaline Phosphatase 105 U/L (38-126); Anion Gap 11 mmol/L (8-16); Aspartate Amino Transferase 27 U/L (17-59); Bilirubin,Total 0.7 mg/dL (0.2-1.3); Blood Urea Nitrogen 28 mg/dL (9-20); Calcium 9.2 mg/dL (8.4-10.2); Carbon Dioxide 18 mmol/L (22-30); Chloride 105 mmol/L (98-107); Estimated CRCL calculation 50 ml/min; Estimated Glomerular Filt Rate > 60; Glucose 254 mg/dL (65-110); Magnesium 2.2 mg/dL (1.6-2.3); Potassium 3.7 mmol/L (3.4-5.0); Sodium 134 mmol/L (137-145)
[2024-01-02 17:30] LABS: Hemoglobin 5.6 g/dL (14.0-18.0)
[2024-01-02 17:31] LABS: Hematocrit 19.4 % (42.0-52.0)
[2024-01-02 17:33] LABS: Platelet Estimate Decreased (Adequate)
[2024-01-02 17:34] LABS: Anisocytosis 2+ (NORMAL); Hypochromasia 1+ (NORMAL); Schistocytes None Seen (NORMAL)
[2024-01-02 17:35] LABS: Microcytosis 1+ (NORMAL)
[2024-01-02] MEDS: TUBING, BLOOD SET 1 EACH XX ×2 (18:50→19:35)
[2024-01-02] MEDS: SODIUM CHLORIDE 0.9% IV 250 ML 30 ML IV CONT (18:50)
[2024-01-02] MEDS: SODIUM CHLORIDE 0.9% IV 250 ML 999 ML IV CONT (19:35)
[2024-01-02] MEDS: SODIUM CHLORIDE 0.9% IV 250 ML 999 ML (19:35)
[2024-01-02] MEDS: IBUPROFEN IV 800 MG/200 ML 800 MG/200 ML BAG 400 MG IVPB (20:51)
[2024-01-02] MEDS: BISACODYL 5 MG TABLET EC PO (20:51)
[2024-01-02] MEDS: polyethylene glycoL 3350 238 GM BOTTLE PO (20:51)
[2024-01-02 21:59] LABS: Hematocrit 22.5 % (42.0-52.0)
--- NOTE | 2024-01-02 22:32 | PC.NURSE ---
called pt Miryam @[phone] to give pt update with permission from pt
--- NOTE | 2024-01-02 22:41 | ADMGEN ---
This patient, Estuardo Renae, was admitted to Medical Room 254-01. Patient/family oriented to hospital policies and general routines including ID bracelet, bed and alarms, visiting hours, pain management, procedures, bathroom and other care routines, personal items, smoking policy, room service/diet, and visiting hours. Information on how to activate the Rapid Response Team has been discussed. Patient/Family are encouraged to report perceived risks to care and to ask questions if they do not understand what they are told or what they should do.
[2024-01-02 23:20] LABS: Influenza A QL RT-PCR Negative (Negative); Influenza B QL RT-PCR Negative (Negative); RSV RNA, RT-PCR Negative (Negative); SARS-CoV-2 RNA PCR Negative (Negative)
[2024-01-03] VITALS (11 sets, daily range): BP systolic 104–150; BP diastolic 40–85; PULSE 59–72; RESP 17–21; TEMP 36.1–37.2; O2SAT 97–100; BMI 25.1
--- NOTE | 2024-01-03 06:51 | PM.IMHP ---
H&P: HPI History of Present Illness Date/Time: 01/03/24 06:00 Chief Complaint: Low hemoglobin Narrative: 78-year-old male with a past medical history of non-Hodgkin's lymphoma on chemotherapy since February, status post pacemaker defibrillator and type 2 diabetes mellitus who presented to the ER via private vehicle due to low hemoglobin. Patient had outpatient labs performed by his primary care provider which demonstrated hemoglobin of 5.7. Patient denied any black or bloody stools. In the ER patient did Hemoccult-positive stool. Approximately 2 weeks ago he was anemic at that time and received 3 units of blood as outpatient. He reported the ER staff that he has chronic diarrhea. At the time of my evaluation the patient is only alert oriented person and time head is confused as to place. He has unable to provide me with any significant past medical history. He recently recovered from COVID. He denies any chest pain or shortness of breath. He does admit to being a little bit fatigued. He has not been having any fevers or chills. He denies any abdominal pain. He does still have some residual cough. He reports a good appetite. Review of Systems Review of Systems: 12 systems were reviewed with pertinent positives and negatives per HPI. Except as documented in the HPI, all other systems were reviewed and are negative. 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 Perez Pacemaker Skin cancer Surgical History Surgical History (Updated 01/03/24 @ 07:07 by Joanna Packer DO) S/P cervical spinal fusion Status post cataract extraction of both eyes with insertion of intraocular lens Status post implantation of automatic cardioverter/defibrillator (AICD) (~2020) Family History Family History Father Heart problem Mother Heart problem Social History Social History (Updated 01/03/24 @ 07:00 by Joanna Packer DO) Social History: He lives with his of over 40 years. Code status: Full code (per EMR) Surrogate decision maker: Smoking packs per day: 1.5 Smoking cigarettes per day: 30.0 Years smoked: 20 Smoking pack-years: 30.00 Smoking status: Former smoker Tobacco type: cigarettes Second hand tobacco smoke exposure: No Additional smoking assessment comments: PT UNABLE TO RECALL SMOKING HX - STATES QUIT 25 YRS AGO OR SO Alcohol intake: former Substance use: never Substance use type: does not use Do You Feel Safe in your Home?: Yes Lack of Transportation: No Lack of Food: Never True Current Housing: I Have Housing Concerned About Future Housing: No Difficulty Paying Gas/Electric Bills: No Difficulty Paying for Meds: No Currently Unemployed: No Education: High School Diploma/GED Difficulty w/ Childcare or Family Care: No Living arrangements: with family Spiritual care concerns: No Meds Home Medications and Allergies Home Medications Medication Instructions Recorded Confirmed Type apixaban 5 mg tablet (Eliquis) 5 mg PO BID 06/19/22 01/02/24 History cholecalciferol (vitamin D3) 25 25 mcg PO DAILY 06/19/22 01/02/24 History mcg (1,000 unit) capsule empagliflozin 25 mg tablet 25 mg PO QAM 06/19/22 01/02/24 History (Jardiance) ferrous sulfate 325 mg (65 mg 325 mg PO BID 06/19/22 01/02/24 History iron) capsule,extended release fluticasone propionate 50 2 spray intranasal DAILY 06/19/22 01/02/24 History mcg/actuation nasal spray,suspension metoprolol succinate 50 mg 50 mg PO BID 06/19/22 01/02/24 History tablet,extended release 24 hr (Toprol XL)
[2024-01-03] MEDS: MAGNESIUM CITRATE 300 ML BTL PO (06:55)
[2024-01-03 07:41] LABS: Hematocrit 28.1 % (42.0-52.0); Hemoglobin 8.4 g/dL (14.0-18.0); Immature Platelet Fraction Pct 8.4 % (0.9-11.2); Mean Corpuscular HGB Conc 29.9 g/dl (32-36); Mean Corpuscular Hemoglobin 28.3 pg (26-34); Mean Corpuscular Volume 94.6 fl (80-100); Mean Platelet Volume 12.4 fl (7.4-10.4); Platelet Count Result 93 k/mm3 (150-375); Red Blood Count 2.97 M/mm3 (4.6-6.20); Red Cell Distribution Width 17.4 % (11.5-14.5)
[2024-01-03 07:52] LABS: Anion Gap 7 mmol/L (8-16); Blood Urea Nitrogen 26 mg/dL (9-20); Calcium 9.5 mg/dL (8.4-10.2); Carbon Dioxide 22 mmol/L (22-30); Chloride 105 mmol/L (98-107); Estimated CRCL calculation 55 ml/min; Estimated Glomerular Filt Rate > 60; Glucose 226 mg/dL (65-110); Potassium 3.6 mmol/L (3.4-5.0); Sodium 134 mmol/L (137-145)
[2024-01-03 08:03] LABS: Glucose Point of Care 237 mg/dl (65-105)
[2024-01-03 08:53] LABS: Hemoglobin A1C 6.6 % (<5.7)
[2024-01-03 11:55] LABS: Glucose Point of Care 197 mg/dl (65-105)
--- NOTE | 2024-01-03 12:32 | WPDANESEPPF ---
Anes - Initial Pre Proc Eval Procedure: Operation Date: 01/03/24 13:00 Proposed Procedures p Esophagogastroduodenoscopy & Colonoscopy - Lauro Musa MD Date/Time: 01/03/24 12:32 Surgeon: Joanna Packer DO Pre Op Diagnosis: Suspect GI Bleed,Anemia Req Blood Transfusion Patient Data Age: 78 Gender: M Height: 1.63 m Weight: 66.5 kg Last Vital Signs Temp 36.3 C L 01/03/24 06:45 Pulse 59 L 01/03/24 06:45 Resp 20 01/03/24 06:45 BP 117/50 L 01/03/24 06:45 Pulse Ox 99 01/03/24 06:45 O2 Del Method Room Air 01/03/24 08:15 Allergies Allergy/AdvReac Type Severity Reaction Status Date / Time cefditoren AdvReac Rash Verified 12/25/23 07:53 tetracycline AdvReac Rash Verified 12/25/23 07:53 Home Medications Medication Instructions Recorded Confirmed Type apixaban 5 mg tablet (Eliquis) 5 mg PO BID 06/19/22 01/02/24 History cholecalciferol (vitamin D3) 25 25 mcg PO DAILY 06/19/22 01/02/24 History mcg (1,000 unit) capsule empagliflozin 25 mg tablet 25 mg PO QAM 06/19/22 01/02/24 History (Jardiance) ferrous sulfate 325 mg (65 mg 325 mg PO BID 06/19/22 01/02/24 History iron) capsule,extended release fluticasone propionate 50 2 spray intranasal DAILY 06/19/22 01/02/24 History mcg/actuation nasal spray,suspension metoprolol succinate 50 mg 50 mg PO BID 06/19/22 01/02/24 History tablet,extended release 24 hr (Toprol XL) nystatin 100,000 unit/gram topical 1 applic topical BID PRN MOUTH 06/19/22 01/02/24 History cream SORES omeprazole 40 mg capsule,delayed 40 mg PO BID 06/19/22 01/02/24 History release simvastatin 20 mg tablet (Zocor) 20 mg PO DAILY 06/19/22 01/02/24 History cyanocobalamin (vitamin B-12) 1,000 mcg PO DAILY 11/29/22 01/02/24 History 1,000 mcg tablet hydrochlorothiazide 12.5 mg tablet 12.5 mg PO DAILY 11/29/22 01/02/24 History lisinopril 30 mg tablet 30 mg QAM 02/14/23 01/02/24 History metformin 1,000 mg tablet 1,000 mg BID 02/14/23 01/02/24 History sucralfate 1 g PO QID 09/04/23 01/02/24 History acyclovir 400 mg tablet 400 mg PO BID 12/25/23 01/02/24 History aspirin 81 mg tablet 81 mg PO DAILY 12/25/23 01/02/24 History Laboratory Tests 01/02/24 01/02/24 01/03/24 17:09 21:50 07:31 WBC 3.8 L K/mm3 3.0 L K/mm3 (4.5-10.0) (4.5-10.0) RBC 1.95 L M/mm3 2.97 L M/mm3 (4.6-6.20) (4.6-6.20) Hgb 5.6 L* g/dL 7.0 L g/dL 8.4 L g/dL (14.0-18.0) (14.0-18.0) (14.0-18.0) Hct 19.4 L* % 22.5 L % 28.1 L % (42.0-52.0) (42.0-52.0) (42.0-52.0) MCV 99.5 fl 94.6 fl (80-100) (80-100) MCH 28.7 pg 28.3 pg (26-34) (26-34) MCHC 28.9 L g/dl 29.9 L g/dl (32-36) (32-36) RDW 15.3 H % 17.4 H % (11.5-14.5) (11.5-14.5) Plt Count 118 L k/mm3 93 L k/mm3 (150-375) (150-375) MPV 11.8 H fl 12.4 H fl (7.4-10.4) (7.4-10.4) Immature Gran % (Auto) 0.5 % (0-0.5) Neut % (Auto) 72.1 % (45.5-73.1) Lymph % (Auto) 9.9 L % (18.3-44.2) [place] % (Auto) 14.6 H % (2.6-8.5) Eos % (Auto) 2.6 % (0-4.4) Baso % (Auto) 0.3 % (0.2-1.2) Lymph # (Auto) 0.38 L K/mm3 (0.9-3.2) [place] # (Auto) 0.6 K/mm3 (0.1-0.6) Eos # (Auto) 0.1 K/mm3 (0-0.3) Baso # (Auto) 0.0 K/mm3 (0.0-0.1) Abs Immat Gran (auto) 0.02 K/mm3 (0.00-0.031) Absolute Neuts (auto) 2.8 K/mm3 (1.3-6.7) Absolute Nucleated RBC 0.0 K/mm3 (0.0-0.012) Nucleated RBC % 0.0 % (0.0-0.2) Platelet Estimate Decreased (Adequate) % Immature Plt Fraction 8.4 % (0.9-11.2) Hypochromasia 1+ (NORMAL) Anisocytosis 2+ (NORMAL) Microcytosis 1+ (NORMAL) Schistocytes None seen (NORMAL) Sodium 134 L mmol/L 134 L mmol/L (137-145) (137-145) Potassium 3.7 mmol/L 3.6 mmol/L (3.4-5.0) (3.4-5.
--- NOTE | 2024-01-03 12:37 | WPDGICN ---
Assessment and Plan Assessment and plan (1) Acute on chronic anemia: Code(s): D64.9 - Anemia, unspecified Status: Acute Assessment and Plan: he has underlying lymphoma and this could be cause of pancytopenia but hgb lower than usual and also found to have occult blood in stool will proceed with egd and colonoscopy to assess if also any GI source will need follow-up with his hem-onc (2) Fecal occult blood test positive: Code(s): R19.5 - Other fecal abnormalities Status: Acute Assessment and Plan: assess with scopes (3) Follicular lymphoma: Code(s): C82.90 - Follicular lymphoma, unspecified, unspecified site Status: Acute (4) Type 2 diabetes mellitus with hyperglycemia, without long-term current use of insulin: Code(s): E11.65 - Type 2 diabetes mellitus with hyperglycemia Status: Acute (5) Pancytopenia: Code(s): D61.818 - Other pancytopenia Status: Acute GI Consult Note Consult date/time: 01/03/24 12:37 Reason for consult: fobt, acute on chronic anemia HPI: Estuardo Renae is a 78 year old male with a past medical history of follicular lymphoma, 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 He has been dealing with anemia and received blood transfusion in the past but recent outpatient hgb worsening anemia 5.7 the instructed to come to ER.? Patient denied any black or bloody stools.? In the ER patient did Hemoccult-positive stool.?He recently recovered from COVID. He thinks that had colonoscopy about 4-5 years ago with polyp. He already received bowel prep. Review of Systems Constitutional: Constitutional: Reports lethargy Eyes: Eyes: Denies blurry vision ENT: Reports Normal hearing present Cardiovascular: Cardiovascular: Denies chest pain Respiratory: Respiratory: Denies cough Gastrointestinal: Gastrointestinal: Denies abdominal pain Genitourinary: Genitourinary: Denies flank pain Musculoskeletal: Musculoskeletal: Denies neck pain Integumentary/Breasts: Skin/Breast: Denies rash Neurologic: Denies confusion Psychiatric: Psychiatric: Denies behavioral changes [facility] Past Medical History Medical History (Updated 01/03/24 @ 12:59 by Lauro Musa MD) Acute on chronic anemia Atrial fibrillation B12 deficiency Cardiac defibrillator in place (~2020) Diabetes GERD (gastroesophageal reflux disease) Hearing loss Hepatitis Hyperlipidemia KINJAL (iron deficiency anemia) NHL (non-Hodgkin's lymphoma) (~02/2023) follicular lymphoma; 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 Perez Pacemaker Skin cancer Surgical History Surgical History S/P cervical spinal fusion Status post cataract extraction of both eyes with insertion of intraocular lens Status post implantation of automatic cardioverter/defibrillator (AICD) (~2020) Family History Family History Father Heart problem Mother Heart problem Social History Social History Social History: He lives with his of over 40 years. Code status: Full code (per EMR) Surrogate decision maker: Smoking packs per day: 1.5 Smoking cigarettes per day: 30.0 Years smoked: 20 Smoking pack-years: 30.00 Smoking status: Former smoker Tobacco type: cigarettes Second hand tobacco smoke exposure: No Additional smoking assessment comments: PT UNABLE TO RECALL SMOKING HX - STATES QUIT 25 YRS AGO OR SO Alcohol intake: former Substance use: never Substance use type: does not use Do You Feel Safe in your Home?: Yes Lack of Transportation: No Lack
[2024-01-03] MEDS: LACTATED RINGERS 1,000 ML 150 ML IV CONT (12:41)
--- NOTE | 2024-01-03 14:04 | SUR.OPER ---
EGD START 1314 END 1317, COLONOSCOPY START 1323 END 1333
[2024-01-03] MEDS: CENTRAL LINE FLUSH 10 ML IV PUSH ×2 (14:30→20:42)
--- NOTE | 2024-01-03 14:42 | PM.IMPN ---
Progress Note: A&P Assessment and Plan (1) Anemia requiring transfusions: Code(s): D64.9 - Anemia, unspecified Status: Acute Assessment and Plan: Patient has recurrent symptomatic anemia iron studies are consistent with iron deficiency anemia. Patient was recently started on iron supplements outpatient due to recent iron studies. Despite being on iron supplementation patient's hemoglobin continues to drop. He does have a history of atrial fibrillation and is on chronic anticoagulation with Eliquis and baby aspirin daily. Will hold the patient's home Eliquis. Gastroenterology has been consulted. Colonoscopy today revealed 3 polyps and small internal hemorrhoids with no active bleeding. EGD showing esophageal varices which were nonbleeding. (2) Fecal occult blood test positive: Code(s): R19.5 - Other fecal abnormalities Status: Acute Assessment and Plan: Will repeat CBC as patient has received 2 units packed red blood cells. Will transfuse as needed for stable hemoglobin. Will continue his PPI therapy but this was be substituted to Protonix. (3) Type 2 diabetes mellitus with hyperglycemia, without long-term current use of insulin: Code(s): E11.65 - Type 2 diabetes mellitus with hyperglycemia Status: Acute Assessment and Plan: Insulin Lispro sliding scale, Accu-checks qAc and HS and Hold oral hypoglycemics Initiate hypoglycemic precautions (4) KINJAL (iron deficiency anemia): Code(s): D50.9 - Iron deficiency anemia, unspecified Status: Acute Assessment and Plan: See 1. Subjective Date/time seen: 01/03/24 14:42 Interval history: Patient feeling good today. He states that he has dark stools for approximately 1 year but he is also been on an iron supplement. He does have history of cancer and states his last chemo treatment was at the end of 2022. He believes he is done with cancer treatment at this time. He states that he is quite frequently 50 but that is not anything new for him. He denies any dizziness, lightheadedness or shortness of breath. Exam Narrative: GENERAL: Comfortable, no acute distress HENMT: moist mucous membranes EYES: EOM intact b/l NECK: no lymphadenopathy RESPIRATORY: clear to auscultation CARDIO: RRR GI: soft, nontender, bowel sounds present SKIN: no rashes EXTREMITIES: no edema, redness or tenderness Objective Data Vital Signs Vital Signs: Vital Signs - 24 hr 01/02/24 16:38 01/02/24 16:57 01/02/24 17:02 Temperature 97.5 F L Pulse Rate 61 66 Respiratory Rate 17 18 Blood Pressure 109/47 L 135/53 L 116/46 L Pulse Oximetry 100 100 100 Oxygen Delivery Room Air 01/02/24 17:17 01/02/24 18:51 01/02/24 18:50 Temperature 98.2 F Pulse Rate 63 66 75 Respiratory Rate 15 18 15 Blood Pressure 122/45 L 121/49 L 121/49 L Pulse Oximetry 100 100 100 Oxygen Delivery 01/02/24 17:18 01/02/24 19:07 01/02/24 19:15 Temperature 98.2 F Pulse Rate 64 65 67 Respiratory Rate 14 20 19 Blood Pressure 111/52 L Pulse Oximetry 100 100 100 Oxygen Delivery 01/02/24 19:45 01/02/24 17:10 01/02/24 20:00 Temperature 98.3 F 98.2 F 98.4 F Pulse Rate 64 60 64 Respiratory Rate 14 13 20 Blood Pressure 106/51 L 106/51 L 113/53 L Pulse Oximetry 100 100 100 Oxygen Delivery 01/02/24 20:30 01/02/24 20:51 01/02/24 20:47 Temperature 98.2 F 98.2 F Pulse Rate 69 66 Respiratory Rate 19 25 H Blood Pressure 111/51 L 115/54 L Pulse Oximetry 100 99 Oxygen Delivery 01/02/24 21:32 01/02/24 20:40 01/02/24 22:48 Temperature 98.2 F Pulse Rate 62 66 Respiratory Rate 18 25 H Blood Pressure 131/59 L 115/54 L Pulse Oximetry 100 99 Oxygen Delivery Room Air 01/03/24 04:13 01/03/24 06:45 01/03/24 08:15 Temperature 97.7 F 97.3 F L Pulse Rate 60 59 L Respiratory Rate 21 H 20 Blood Pressure 147/56 H 117/50 L Pulse Oximetry 100 99 Oxygen Delivery Room Air
[2024-01-03] MEDS: ACYCLOVIR 400 MG TABLET PO (17:06)
[2024-01-03] MEDS: SUCRALFATE 1 GM TABLET PO ×2 (17:06→20:41)
[2024-01-03] MEDS: metFORMIN HCL 500 MG TABLET 1000 MG PO (17:06)
[2024-01-03] MEDS: FERROUS SULFATE 325 MG TABLET DR PO (17:06)
[2024-01-03] MEDS: PANTOPRAZOLE 40 MG TABLET PO (17:06)
[2024-01-03 17:10] LABS: Glucose Point of Care 249 mg/dl (65-105)
[2024-01-03] MEDS: INSULIN ASPART (*BKC) 100 UNITS/ML SUB-Q ×2 (17:13→20:43)
--- NOTE | 2024-01-03 19:25 | PC.NURSE ---
I reviewed the License Pending RN's documentation and agree with the findings.
[2024-01-03] MEDS: METOPROLOL SUCCINATE EXT REL 50 MG TABCR PO (20:41)
[2024-01-03] MEDS: SIMVASTATIN 20 MG TABLET PO (20:42)
[2024-01-03] MEDS: PROPRANOLOL HCL 10 MG TABLET PO (20:42)
[2024-01-04] VITALS (10 sets, daily range): BP systolic 103–132; BP diastolic 45–54; PULSE 60–76; RESP 16–20; TEMP 36.6–36.9; O2SAT 95–100
[2024-01-04 05:50] LABS: Glucose Point of Care 260 mg/dl (65-105)
[2024-01-04] MEDS: SUCRALFATE 1 GM TABLET PO ×3 (06:09→20:26)
[2024-01-04] MEDS: CENTRAL LINE FLUSH 10 ML IV PUSH (06:11)
[2024-01-04] MEDS: CENTRAL LINE FLUSH 20 ML IV PUSH (06:11)
[2024-01-04 07:29] LABS: Hepatitis B Surface Antigen Negative (Negative)
[2024-01-04 07:37] LABS: HAV RESULT Negative (Negative); Hepatitis B Core IgM Result Negative (Negative)
[2024-01-04 07:46] LABS: Hepatitis C Virus Antibody Negative (Negative)
[2024-01-04 08:19] LABS: Glucose Point of Care 249 mg/dl (65-105)
[2024-01-04] MEDS: INSULIN ASPART (*BKC) 100 UNITS/ML SUB-Q (09:05)
[2024-01-04] MEDS: ASPIRIN 81 MG CHEWABLE TABLET PO (09:08)
[2024-01-04] MEDS: FERROUS SULFATE 325 MG TABLET DR PO ×2 (09:08→17:01)
[2024-01-04] MEDS: ACYCLOVIR 400 MG TABLET PO ×2 (09:09→17:01)
[2024-01-04] MEDS: metFORMIN HCL 500 MG TABLET 1000 MG PO ×2 (09:09→17:01)
[2024-01-04] MEDS: CHOLECALCIFEROL 1,000 UNITS TABLET 1000 UNITS PO (09:09)
[2024-01-04] MEDS: EMPAGLIFLOZIN 25 MG TABLET PO (09:09)
[2024-01-04] MEDS: FLUTICASONE PROPIONATE 0.05% NA SPR 16 GM BTL (*BKC) 2 SPRAY NASAL (09:09)
[2024-01-04] MEDS: CYANOCOBALAMIN 1,000 MCG TABLET 1000 MCG PO (09:09)
[2024-01-04] MEDS: lisinopriL 10 MG TABLET 30 MG BY MOUTH (09:10)
[2024-01-04] MEDS: PROPRANOLOL HCL 10 MG TABLET PO ×2 (09:11→20:26)
[2024-01-04] MEDS: PANTOPRAZOLE 40 MG TABLET PO ×2 (09:11→17:01)
[2024-01-04] MEDS: METOPROLOL SUCCINATE EXT REL 50 MG TABCR PO (09:11)
[2024-01-04 09:36] LABS: Hematocrit 22.2 % (42.0-52.0); Immature Platelet Fraction Pct 6.7 % (0.9-11.2); Mean Corpuscular HGB Conc 30.2 g/dl (32-36); Mean Corpuscular Hemoglobin 28.3 pg (26-34); Mean Corpuscular Volume 93.7 fl (80-100); Mean Platelet Volume 12.1 fl (7.4-10.4); Platelet Count Result 75 k/mm3 (150-375); Red Blood Count 2.37 M/mm3 (4.6-6.20); Red Cell Distribution Width 17.5 % (11.5-14.5); White Blood Count 2.1 K/mm3 (4.5-10.0)
[2024-01-04 09:43] LABS: Anion Gap 2 mmol/L (8-16); Blood Urea Nitrogen 18 mg/dL (9-20); Calcium 8.5 mg/dL (8.4-10.2); Carbon Dioxide 24 mmol/L (22-30); Chloride 106 mmol/L (98-107); Estimated CRCL calculation 63 ml/min; Estimated Glomerular Filt Rate > 60; Glucose 276 mg/dL (65-110); Sodium 132 mmol/L (137-145)
[2024-01-04 09:46] LABS: Hemoglobin 6.7 g/dL (14.0-18.0)
--- NOTE | 2024-01-04 11:06 | PCNFU ---
Nutrition Follow-Up Complete: Unintended weight loss as related to cancer as evidenced by 17%(30 ibs) in 3 months. Goal: Adequate Intake at of at least 75% of meals/supplements Patient is meeting goal. No new goal. Pt current nutrition is Regular with nutritional ice cream BID. Last recorded weight is 66.5 kg, stable Bowel Motility: +Bm reported Labs Reviewed:no new labs to report. Meds Noted: Protonix, Jardiance, Metformin, NovoLog Skin: WNL Additional Notes: Diet order has advanced to a regular diet. Oral Intake 90-100% of meals. Diet supplement of nutritional ice cream providing an additional 300 kcals and 9 gms protein. Agree with diet orders. RD will monitor weight, labs, skin, oral intake, meds every 5 days.
--- NOTE | 2024-01-04 11:36 | WPDGIPROGNO ---
Progress Note: A&P Assessment and Plan (1) Acute on chronic anemia: Code(s): D64.9 - Anemia, unspecified Status: Acute Assessment and Plan: probably multifactorial from underlying lymphoma undergoing treatment, also cirrhosis, found erosive gastritis but no active bleeding (2) Erosive gastritis: Code(s): K29.60 - Other gastritis without bleeding Status: Acute Assessment and Plan: ppi daily (3) Cirrhosis: Code(s): K74.60 - Unspecified cirrhosis of liver Status: Acute Assessment and Plan: ? mathur will complete work up hepatitis negative (4) Type 2 diabetes mellitus with hyperglycemia, without long-term current use of insulin: Code(s): E11.65 - Type 2 diabetes mellitus with hyperglycemia Status: Acute (5) Follicular lymphoma: Code(s): C82.90 - Follicular lymphoma, unspecified, unspecified site Status: Acute (6) Ascites: Code(s): R18.8 - Other ascites Status: Acute Assessment and Plan: feeling bloated will get paracentesis, also will check for sbp and calculate saag (never had one) (7) Esophageal varices: Code(s): I85.00 - Esophageal varices without bleeding Status: Acute Assessment and Plan: small size started low dose non selective b-kinga (propranolol) instead of metoprolol that he is using at home (8) Pancytopenia: Code(s): D61.818 - Other pancytopenia Status: Acute Assessment and Plan: from lymphoma, also cirrhosis can play a factor Subjective Date/time seen: 01/04/24 11:36 Interval history: egd yesterday with non bleeding erosive gastritis, also small EV but no signs of bleeding, colonoscopy with few polyps removed denies any bleeding abdomen is distended and he never had paracentesis, daughter at bedside told me that he has been diagnosed with cirrhosis previously, no alcohol use- probably fatty liver Review of Systems Review of Systems: All systems reviewed & are unremarkable except as noted in HPI and below Exam Const: General: comfortable and no acute distress Other: chronically ill HENMT: Face/Nose/Sinus: Normal nares present Eyes: General: appearance normal, both eyes and all related structures Neck: Neck: supple Chest: Other: port in chest Resp: Auscultation: clear to auscultation bilaterally Cardio: Rate: regular rate Rhythm: regular rhythm GI: GI Palp: Yes Soft to palpation and No Tenderness to palpation present (GI) Auscultation: normal bowel sounds Other: ? fluid wave Skin: Other: pallor Neuro: Speech: normal speech Motor exam (neuro): 5/5 motor strength present throughout Extrem: General: normal to inspection Psych: Mental Status: mental status grossly normal Objective Data Vital Signs Vital Signs: Vital Signs - 24 hr 01/03/24 12:38 01/03/24 13:38 01/03/24 13:48 Temperature 96.9 F L Pulse Rate 63 60 60 Respiratory Rate 17 18 17 Blood Pressure 142/40 H 107/48 L 104/47 L Pulse Oximetry 100 100 97 Oxygen Delivery Room Air Room Air Room Air 01/03/24 14:00 01/03/24 15:09 01/03/24 20:41 Temperature 97.7 F Pulse Rate 60 62 72 Respiratory Rate 20 18 Blood Pressure 108/85 143/52 H Pulse Oximetry 100 100 Oxygen Delivery Room Air 01/03/24 20:42 01/03/24 20:00 01/03/24 22:00 Temperature 98.9 F Pulse Rate 72 68 Respiratory Rate 20 Blood Pressure 150/53 H Pulse Oximetry 98 Oxygen Delivery Room Air 01/03/24 23:25 01/04/24 06:00 01/04/24 09:11 Temperature 98.3 F Pulse Rate 60 60 Respiratory Rate 20 Blood Pressure 132/54 L Pulse Oximetry 98 99 Oxygen Delivery Room Air 01/04/24 09:11 Temperature Pulse Rate 60 Respiratory Rate Blood Pressure Pulse Oximetry Oxygen Delivery Intake/Output Intake/Output: Intake & Output 01/01/24 01/02/24 01/03/24 01/04/24 23:59 23:59 23:59 23:59 Intake Total 1400 50 690 Output Total 600 Balance
[2024-01-04 12:10] LABS: Glucose Point of Care 190 mg/dl (65-105)
[2024-01-04 12:39] LABS: INR 1.2; Prothrombin Time 15.6 Seconds (11.1-14.7)
--- NOTE | 2024-01-04 14:34 | PM.IMPN ---
Progress Note: A&P Assessment and Plan (1) Anemia requiring transfusions: Code(s): D64.9 - Anemia, unspecified Status: Acute Assessment and Plan: 01/02/2024 H&H of 5.6/19.4, patient received 2 units of PRBCs. Patient has recurrent symptomatic anemia iron studies are consistent with iron deficiency anemia. Patient was recently started on iron supplements outpatient due to recent iron studies. Despite being on iron supplementation patient's hemoglobin continues to drop. He does have a history of atrial fibrillation and is on chronic anticoagulation with Eliquis and baby aspirin daily. Will hold the patient's home Eliquis. Gastroenterology has been consulted. Colonoscopy today revealed 3 polyps and small internal hemorrhoids with no active bleeding. EGD showing esophageal varices which were nonbleeding. 01/04/2024 H&H 6.7/22.2, 2 units of PRBCs ordered. Recheck H&H 1 hour after completion. Hematology/ oncology consulted due to persistent anemia without known cause (2) Fecal occult blood test positive: Code(s): R19.5 - Other fecal abnormalities Status: Acute Assessment and Plan: Will repeat CBC as patient has received 2 units packed red blood cells. Will transfuse as needed for stable hemoglobin. Will continue his PPI therapy but this was be substituted to Protonix. Colonoscopy today revealed 3 polyps and small internal hemorrhoids with no active bleeding. EGD showing esophageal varices which were nonbleeding. (3) Type 2 diabetes mellitus with hyperglycemia, without long-term current use of insulin: Code(s): E11.65 - Type 2 diabetes mellitus with hyperglycemia Status: Acute Assessment and Plan: Insulin Lispro sliding scale, Accu-checks qAc and HS and Hold oral hypoglycemics Initiate hypoglycemic precautions (4) KINJAL (iron deficiency anemia): Code(s): D50.9 - Iron deficiency anemia, unspecified Status: Acute Assessment and Plan: See 1. (5) Pancytopenia: Code(s): D61.818 - Other pancytopenia Status: Acute Assessment and Plan: Patient does have history of cancer. Last cancer treatment was at the end of 2022. Will consult Hematology/Oncology. Subjective Date/time seen: 01/04/24 14:34 Interval history: patient feeling well today. He does states that he has been having some abdominal fullness but other than that he has no complaints. He denies any chest pain, shortness a breath, nausea, vomiting, dizziness or lightheadedness. Due to patient's history of cancer will consult Oncology/Hematology for further insight. Patient requiring another 2 units of PRBCs today. Exam Narrative: GENERAL: Comfortable, no acute distress HENMT: moist mucous membranes EYES: EOM intact b/l NECK: no lymphadenopathy RESPIRATORY: clear to auscultation CARDIO: RRR GI: soft, nontender, bowel sounds present SKIN: no rashes EXTREMITIES: no edema, redness or tenderness Objective Data Vital Signs Vital Signs: Vital Signs - 24 hr 01/03/24 15:09 01/03/24 20:41 01/03/24 20:42 Temperature 97.7 F Pulse Rate 62 72 72 Respiratory Rate 18 Blood Pressure 143/52 H Pulse Oximetry 100 Oxygen Delivery 01/03/24 20:00 01/03/24 22:00 01/03/24 23:25 Temperature 98.9 F Pulse Rate 68 Respiratory Rate 20 Blood Pressure 150/53 H Pulse Oximetry 98 98 Oxygen Delivery Room Air Room Air 01/04/24 06:00 01/04/24 09:11 01/04/24 09:11 Temperature 98.3 F Pulse Rate 60 60 60 Respiratory Rate 20 Blood Pressure 132/54 L Pulse Oximetry 99 Oxygen Delivery Intake/Output Intake/Output: Intake & Output 01/01/24 01/02/24 01/03/24 01/04/24 23:59 23:59 23:59 23:59 Intake Total 1400 50 690 Output Total 600 Balance 1400 50 90 Meds/Results Medications: Active Medications Generic Name Dose Route Start Last Admin Trade Name Freq PRN Reason Stop Dose Admi
--- NOTE | 2024-01-04 15:04 | PDONCCN ---
HPI - Date of Consult Date/Time: 01/04/24 15:04 Requesting Physician: Joanna Packer DO Primary Care Provider: Moses Conn, - Consult Narrative Reason for consult: Lymphoma and bleeding Narrative: Estuardo Renae is a 78 year old male with a past medical history of liver cirrhosis, vit B12/anemia deficiency, gastritis, anemia, and 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 He completed radiation therapy in Oct 2023 and his maintenance chemotherapy was not approved by insurance. We last saw Estuardo in office 12/27/23 and reported he went to the hospital earlier in Dec and received 2 units of PRBC for a low hemoglobin and was sent home. We suggested he got a f/u with Dr Orellana for GI evaluation. He has been dealing with multifactorial anemia for awhile. We suggested he started taking iron and offered an iron infusion, which has not been given yet. His liver cirrhosis has been known as well as gastritis and Yogi's esophagus. Labs today are notable for Hgb 6.7, WBC 2.1, Plt 25,000 which are consistent with his recent trend in labs. Review of Systems - Review of Systems All systems reviewed & are unremarkable except as noted in HPI and bel - Neurologic Reports hearing normal, Denies behavioral changes, Denies confusion [facility] Medical History: Medical History (Last Updated 01/04/24 @ 11:38 by Lauro Musa MD) Acute on chronic anemia Ascites Atrial fibrillation B12 deficiency Cardiac defibrillator in place Onset Date: ~2020 Cirrhosis Diabetes Erosive gastritis Esophageal varices GERD (gastroesophageal reflux disease) Hearing loss Hepatitis Hyperlipidemia KINJAL (iron deficiency anemia) NHL (non-Hodgkin's lymphoma) Onset Date: ~02/2023 follicular lymphoma; 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 Perez Pacemaker Skin cancer Surgical History: Surgical History (Last Reviewed 01/03/24 @ 12:32 by Feliciano Chen MD) S/P cervical spinal fusion Status post cataract extraction of both eyes with insertion of intraocular lens Status post implantation of automatic cardioverter/defibrillator (AICD) Onset Date: ~2020 Family History: Family History (Last Reviewed 01/03/24 @ 12:32 by Feliciano Chen MD) Father Heart problem Mother Heart problem - Social History Social History: Social History (Last Reviewed 01/03/24 @ 12:32 by Feliciano Chen MD) Alcohol Use: Alcohol intake: former Substance Use: Substance use: never Substance use type: does not use Others: Spiritual care concerns: No Living Arrangements: Living arrangements: with family Smoking Status: Smoking status: Former smoker Tobacco type: cigarettes Second hand tobacco smoke exposure: No Smoking Pack-years: Smoking packs per day: 1.5 Smoking cigarettes per day: 30.0 Years smoked: 20 Smoking pack-years: 30.00 Comments: Additional smoking assessment comments: PT UNABLE TO RECALL SMOKING HX - STATES QUIT 25 YRS AGO OR SO Social Determinants of Health: Do You Feel Safe in your Home?: Yes Has the Lack of Transportation Kept You From Medical Appointments or From Getting Medications?: No Within the Past 12 Months, Were You Worried Whether Your Food Would Run Out Before You Got Money to Buy More?: Never True What is Your Housing Situation Today?: I Have Housing Are You Worried That in the Next 2 Months, You May Not Have Your Own Housing to Live In?: No Do You Have Trouble Paying Your Heating Or Electricity Bill?: No Do You Have Trouble Paying For Medicines?: No Are You Currently Unemployed and Looking for Work?: No Highest Level of Education Completed: High School Diploma/GED Do You Have Trouble With Childcare or the Care of a Family Member?: No Exam - Vital Signs Vital Signs - 24 hr 01/03/24 15:09 01/03/24 20:41 01/03/24 20:42 Temperature 36.5 C Pulse Rate 62 72 72 Respiratory Rate 18 Blood Pressure 143/52 H Pulse Oxi
[2024-01-04 17:17] LABS: Glucose Point of Care 176 mg/dl (65-105)
[2024-01-04 17:44] LABS: Source Peritoneal Fluid Peritoneal Fluid
[2024-01-04 17:45] LABS: Appearance Peritoneal Fluid Hazy (Clear); Color Peritoneal Fluid Yellow (Colorless); Nucleated Cells Peritoneal Flu 118 /uL (0-500)
[2024-01-04 17:46] LABS: Lymphocytes Peritoneal Fluid 17 %; Neutrophils Peritoneal Fluid 2 % (0-25); RBC Peritoneal Fluid < 2000 /uL (0-100000)
[2024-01-04 17:47] LABS: Macrophages Peritoneal Fluid 76 %; Monocytes Peritoneal Fluid 5 %
[2024-01-04 18:44] LABS: Iron 33 ug/dL (49-181)
[2024-01-04 18:53] LABS: Percent Iron Saturation 9 % (20-50)
[2024-01-04 19:53] LABS: Folic Acid 14.7 ng/mL (2.76->20); Vitamin B12 > 1000.0 pg/mL (239-931)
[2024-01-04] MEDS: SIMVASTATIN 20 MG TABLET PO (20:26)
[2024-01-04] MEDS: IRON SUCROSE COMPLEX 500 MG in SODIUM CHLORIDE 0.9% IV 250 ML 79 MG IVPB (20:28)
[2024-01-04 23:09] LABS: Glucose Point of Care 167 mg/dl (65-105)
[2024-01-04 23:25] LABS: Hematocrit 25.9 % (42.0-52.0); Hemoglobin 7.8 g/dL (14.0-18.0)
[2024-01-05] VITALS (12 sets, daily range): BP systolic 102–114; BP diastolic 43–59; PULSE 60–78; RESP 14–16; TEMP 36.4–37.1; O2SAT 97–100
[2024-01-05] MEDS: ONDANSETRON INJ 4 MG/2 ML VIAL IV PUSH (01:28)
[2024-01-05 04:36] LABS: Hematocrit 34.7 % (42.0-52.0); Hemoglobin 10.5 g/dL (14.0-18.0); Immature Platelet Fraction Pct 8.3 % (0.9-11.2); Mean Corpuscular HGB Conc 30.3 g/dl (32-36); Mean Corpuscular Hemoglobin 27.7 pg (26-34); Mean Corpuscular Volume 91.6 fl (80-100); Mean Platelet Volume 12.1 fl (7.4-10.4); Platelet Count Result 87 k/mm3 (150-375); Red Blood Count 3.79 M/mm3 (4.6-6.20); Red Cell Distribution Width 18.2 % (11.5-14.5); White Blood Count 4.2 K/mm3 (4.5-10.0)
[2024-01-05 04:44] LABS: Anion Gap 5 mmol/L (8-16); Blood Urea Nitrogen 18 mg/dL (9-20); Calcium 8.4 mg/dL (8.4-10.2); Carbon Dioxide 20 mmol/L (22-30); Chloride 108 mmol/L (98-107); Estimated CRCL calculation 50 ml/min; Estimated Glomerular Filt Rate > 60; Glucose 246 mg/dL (65-110); Sodium 133 mmol/L (137-145)
[2024-01-05] MEDS: SUCRALFATE 1 GM TABLET PO ×4 (05:56→20:14)
[2024-01-05 08:28] LABS: Glucose Point of Care 251 mg/dl (65-105)
[2024-01-05] MEDS: INSULIN ASPART (*BKC) 100 UNITS/ML SUB-Q ×3 (08:43→17:22)
[2024-01-05] MEDS: metFORMIN HCL 500 MG TABLET 1000 MG PO ×2 (08:46→17:31)
[2024-01-05] MEDS: FERROUS SULFATE 325 MG TABLET DR PO ×2 (08:46→17:31)
[2024-01-05] MEDS: ASPIRIN 81 MG CHEWABLE TABLET PO (08:46)
[2024-01-05] MEDS: PROPRANOLOL HCL 10 MG TABLET PO ×2 (08:46→20:14)
[2024-01-05] MEDS: CHOLECALCIFEROL 1,000 UNITS TABLET 1000 UNITS PO (08:46)
[2024-01-05] MEDS: EMPAGLIFLOZIN 25 MG TABLET PO (08:46)
[2024-01-05] MEDS: ACYCLOVIR 400 MG TABLET PO ×2 (08:46→17:32)
[2024-01-05] MEDS: CYANOCOBALAMIN 1,000 MCG TABLET 1000 MCG PO (08:46)
[2024-01-05] MEDS: FLUTICASONE PROPIONATE 0.05% NA SPR 16 GM BTL (*BKC) 2 SPRAY NASAL (08:47)
[2024-01-05] MEDS: lisinopriL 10 MG TABLET 30 MG BY MOUTH (08:47)
[2024-01-05] MEDS: PANTOPRAZOLE 40 MG TABLET PO ×2 (08:47→17:31)
[2024-01-05 12:07] LABS: Glucose Point of Care 267 mg/dl (65-105)
[2024-01-05] MEDS: CENTRAL LINE FLUSH 10 ML IV PUSH ×2 (14:04→22:10)
--- NOTE | 2024-01-05 14:38 | P.PNIM_ITS ---
Progress Note: A&P Assessment and Plan (1) Anemia requiring transfusions: Code(s): D64.9 - Anemia, unspecified Status: Acute Assessment and Plan: * 01/02/2024 H&H of 5.6/19.4, patient received 2 units of PRBCs. * Patient has recurrent symptomatic anemia iron studies are consistent with iron deficiency anemia. * Patient was recently started on iron supplements outpatient due to recent iron studies. * Despite being on iron supplementation patient's hemoglobin continues to drop. * He does have a history of atrial fibrillation and is on chronic anticoagulation with Eliquis and baby aspirin daily. Will hold the patient's home Eliquis. * Gastroenterology has been consulted. * Colonoscopy today revealed 3 polyps and small internal hemorrhoids with no active bleeding. * EGD showing esophageal varices which were nonbleeding. * 01/04/2024 H&H 6.7/22.2, 2 units of PRBCs ordered. Recheck H&H 1 hour after completion. * Hematology/ oncology consulted due to persistent anemia without known cause (2) Fecal occult blood test positive: Code(s): R19.5 - Other fecal abnormalities Status: Acute Assessment and Plan: * Will repeat CBC as patient has received 2 units packed red blood cells. * Will transfuse as needed for stable hemoglobin. * Will continue his PPI therapy but this was be substituted to Protonix. * Colonoscopy today revealed 3 polyps and small internal hemorrhoids with no active bleeding. * EGD showing esophageal varices which were nonbleeding. (3) Type 2 diabetes mellitus with hyperglycemia, without long-term current use of insulin: Code(s): E11.65 - Type 2 diabetes mellitus with hyperglycemia Status: Acute Assessment and Plan: Insulin Lispro sliding scale, Accu-checks qAc and HS and Hold oral hypoglycemics Initiate hypoglycemic precautions (4) KINJAL (iron deficiency anemia): Code(s): D50.9 - Iron deficiency anemia, unspecified Status: Acute Assessment and Plan: See 1. (5) Pancytopenia: Code(s): D61.818 - Other pancytopenia Status: Acute Assessment and Plan: Patient does have history of cancer. * Last cancer treatment was at the end of 2022. * Will consult Hematology/Oncology. (6) Ascites: Code(s): R18.8 - Other ascites Status: Acute Assessment and Plan: Patient with increased abdominal pressure. Patient had paracentesis with 2200 mL hold off on 01/04/2024. * Fluid with normal white count and pH. * Patient continues to have abdominal distension and abdominal discomfort. Will order another paracentesis today. (7) Cirrhosis: Code(s): K74.60 - Unspecified cirrhosis of liver Status: Acute Assessment and Plan: Patient states that he has been diagnosed with cirrhosis for several months. * He states that he does not know the cause of his cirrhosis in denies alcohol abuse. * He is not on any current medication for his cirrhosis. He does not see hepatology. Subjective Date/time seen: 01/05/24 14:38 Interval history: Patient doing well today. He does state that he has increased abdominal press ure and distention. He had a paracentesis yesterday that yielded 2200 mL. Due to his ongoing symptoms will order another paracentesis. Patient not currently on anything for his cirrhosis nor does he see a big data solutions architect. Exam Narrative: GENERAL: Comfortable, no acute
--- NOTE | 2024-01-05 14:38 | PM.IMPN ---
Progress Note: A&P Assessment and Plan (1) Anemia requiring transfusions: Code(s): D64.9 - Anemia, unspecified Status: Acute Assessment and Plan: 01/02/2024 H&H of 5.6/19.4, patient received 2 units of PRBCs. Patient has recurrent symptomatic anemia iron studies are consistent with iron deficiency anemia. Patient was recently started on iron supplements outpatient due to recent iron studies. Despite being on iron supplementation patient's hemoglobin continues to drop. He does have a history of atrial fibrillation and is on chronic anticoagulation with Eliquis and baby aspirin daily. Will hold the patient's home Eliquis. Gastroenterology has been consulted. Colonoscopy today revealed 3 polyps and small internal hemorrhoids with no active bleeding. EGD showing esophageal varices which were nonbleeding. 01/04/2024 H&H 6.7/22.2, 2 units of PRBCs ordered. Recheck H&H 1 hour after completion. Hematology/ oncology consulted due to persistent anemia without known cause (2) Fecal occult blood test positive: Code(s): R19.5 - Other fecal abnormalities Status: Acute Assessment and Plan: Will repeat CBC as patient has received 2 units packed red blood cells. Will transfuse as needed for stable hemoglobin. Will continue his PPI therapy but this was be substituted to Protonix. Colonoscopy today revealed 3 polyps and small internal hemorrhoids with no active bleeding. EGD showing esophageal varices which were nonbleeding. (3) Type 2 diabetes mellitus with hyperglycemia, without long-term current use of insulin: Code(s): E11.65 - Type 2 diabetes mellitus with hyperglycemia Status: Acute Assessment and Plan: Insulin Lispro sliding scale, Accu-checks qAc and HS and Hold oral hypoglycemics Initiate hypoglycemic precautions (4) KINJAL (iron deficiency anemia): Code(s): D50.9 - Iron deficiency anemia, unspecified Status: Acute Assessment and Plan: See 1. (5) Pancytopenia: Code(s): D61.818 - Other pancytopenia Status: Acute Assessment and Plan: Patient does have history of cancer. Last cancer treatment was at the end of 2022. Will consult Hematology/Oncology. (6) Ascites: Code(s): R18.8 - Other ascites Status: Acute Assessment and Plan: Patient with increased abdominal pressure. Patient had paracentesis with 2200 mL hold off on 01/04/2024. Fluid with normal white count and pH. Patient continues to have abdominal distension and abdominal discomfort. Will order another paracentesis today. (7) Cirrhosis: Code(s): K74.60 - Unspecified cirrhosis of liver Status: Acute Assessment and Plan: Patient states that he has been diagnosed with cirrhosis for several months. He states that he does not know the cause of his cirrhosis in denies alcohol abuse. He is not on any current medication for his cirrhosis. He does not see hepatology. Subjective Date/time seen: 01/05/24 14:38 Interval history: Patient doing well today. He does state that he has increased abdominal pressure and distention. He had a paracentesis yesterday that yielded 2200 mL. Due to his ongoing symptoms will order another paracentesis. Patient not currently on anything for his cirrhosis nor does he see a studio director. Exam Narrative: GENERAL: Comfortable, no acute distress HENMT: moist mucous membranes EYES: EOM intact b/l NECK: no lymphadenopathy RESPIRATORY: clear to auscultation CARDIO: RRR GI: Distended, nontender, bowel sounds present SKIN: no rashes EXTREMITIES: no edema, redness or tenderness Objective Data Vital Signs Vital Signs: Vital Signs - 24 hr 01/04/24 17:25 01/04/24 17:40 01/04/24 18:40 Temperature 97.9 F 98.4 F 98.5 F Pulse Rate 60 61 60 Respiratory Rate 18 18 18 Blood Pressure 122/46 L 116/47 L 103/52 L Pulse Oxi
[2024-01-05 17:13] LABS: Glucose Point of Care 244 mg/dl (65-105)
[2024-01-05 18:00] LABS: INR 1.3; Prothrombin Time 16.5 Seconds (11.1-14.7)
[2024-01-05] MEDS: SIMVASTATIN 20 MG TABLET PO (20:14)
[2024-01-05 22:35] LABS: Glucose Point of Care 196 mg/dl (65-105)
[2024-01-06] MEDS: CENTRAL LINE FLUSH 10 ML IV PUSH (05:51)
[2024-01-06 06:30] VITALS: BP 112/53; PULSE 65; RESP 18; TEMP 36.5; O2SAT 99
[2024-01-06] MEDS: PANTOPRAZOLE 40 MG TABLET PO (08:19)
[2024-01-06] MEDS: ACYCLOVIR 400 MG TABLET PO (08:19)
[2024-01-06] MEDS: PROPRANOLOL HCL 10 MG TABLET PO (08:19)
[2024-01-06] MEDS: CYANOCOBALAMIN 1,000 MCG TABLET 1000 MCG PO (08:19)
[2024-01-06] MEDS: ASPIRIN 81 MG CHEWABLE TABLET PO (08:19)
[2024-01-06] MEDS: SPIRONOLACTONE 50 MG TABLET 100 MG PO (08:19)
[2024-01-06] MEDS: EMPAGLIFLOZIN 25 MG TABLET PO (08:19)
[2024-01-06] MEDS: metFORMIN HCL 500 MG TABLET 1000 MG PO (08:19)
[2024-01-06] MEDS: lisinopriL 10 MG TABLET 30 MG BY MOUTH (08:19)
[2024-01-06] MEDS: CHOLECALCIFEROL 1,000 UNITS TABLET 1000 UNITS PO (08:19)
[2024-01-06] MEDS: FERROUS SULFATE 325 MG TABLET DR PO (08:19)
[2024-01-06] MEDS: FLUTICASONE PROPIONATE 0.05% NA SPR 16 GM BTL (*BKC) 2 SPRAY NASAL (08:20)
[2024-01-06 08:37] LABS: Hematocrit 30.3 % (42.0-52.0); Hemoglobin 9.3 g/dL (14.0-18.0); Immature Platelet Fraction Pct 6.6 % (0.9-11.2); Mean Corpuscular HGB Conc 30.7 g/dl (32-36); Mean Corpuscular Hemoglobin 27.9 pg (26-34); Mean Platelet Volume 11.3 fl (7.4-10.4); Platelet Count Result 97 k/mm3 (150-375); Red Blood Count 3.33 M/mm3 (4.6-6.20); Red Cell Distribution Width 18.4 % (11.5-14.5); White Blood Count 3.8 K/mm3 (4.5-10.0)
[2024-01-06 08:46] LABS: Alanine Aminotransferase 20 U/L (6-50); Albumin Level 2.7 g/dL (3.5-5.1); Alkaline Phosphatase 96 U/L (38-126); Anion Gap 4 mmol/L (8-16); Aspartate Amino Transferase 26 U/L (17-59); Bilirubin,Total 1.1 mg/dL (0.2-1.3); Blood Urea Nitrogen 21 mg/dL (9-20); Calcium 8.7 mg/dL (8.4-10.2); Carbon Dioxide 22 mmol/L (22-30); Chloride 106 mmol/L (98-107); Estimated CRCL calculation 55 ml/min; Estimated Glomerular Filt Rate > 60; Glucose 167 mg/dL (65-110); Potassium 3.8 mmol/L (3.4-5.0); Sodium 132 mmol/L (137-145)
[2024-01-06] MEDS: SUCRALFATE 1 GM TABLET PO (11:20)
--- NOTE | 2024-01-06 11:33 | P.PNIM_ITS ---
Progress Note: A&P Assessment and Plan (1) Anemia requiring transfusions: Code(s): D64.9 - Anemia, unspecified Status: Acute Assessment and Plan: * 01/02/2024 H&H of 5.6/19.4, patient received 2 units of PRBCs. * Patient has recurrent symptomatic anemia iron studies are consistent with iron deficiency anemia. * Patient was recently started on iron supplements outpatient due to recent iron studies. * Despite being on iron supplementation patient's hemoglobin continues to drop. * He does have a history of atrial fibrillation and is on chronic anticoagulation with Eliquis and baby aspirin daily. Will hold the patient's home Eliquis. * Gastroenterology has been consulted. * Colonoscopy today revealed 3 polyps and small internal hemorrhoids with no active bleeding. * EGD showing esophageal varices which were nonbleeding. * 01/04/2024 H&H 6.7/22.2, pt recieved 2 units of PRBCs * Hematology/ oncology consulted due to persistent anemia without known cause. * According to [facility] patient's labs are at his baseline. They recommend maintaining follow-up with them as an outpatient. * 3/3 H&H has remained stable. (2) Fecal occult blood test positive: Code(s): R19.5 - Other fecal abnormalities Status: Acute Assessment and Plan: * Will repeat CBC as patient has received 2 units packed red blood cells. * Will transfuse as needed for stable hemoglobin. * Will continue his PPI therapy but this was be substituted to Protonix. * Colonoscopy today revealed 3 polyps and small internal hemorrhoids with no active bleeding. * EGD showing esophageal varices which were nonbleeding. (3) Type 2 diabetes mellitus with hyperglycemia, without long-term current use of insulin: Code(s): E11.65 - Type 2 diabetes mellitus with hyperglycemia Status: Acute Assessment and Plan: Insulin Lispro sliding scale, Accu-checks qAc and HS and Hold oral hypoglycemics Initiate hypoglycemic precautions (4) KINJAL (iron deficiency anemia): Code(s): D50.9 - Iron deficiency anemia, unspecified Status: Acute Assessment and Plan: See 1. (5) Pancytopenia: Code(s): D61.818 - Other pancytopenia Status: Acute Assessment and Plan: Patient does have history of cancer. * Last cancer treatment was at the end of 2022. * Will consult Hematology/Oncology. (6) Ascites: Code(s): R18.8 - Other ascites Status: Acute Assessment and Plan: Patient with increased abdominal pressure. Patient had paracentesis with 2200 mL hold off on 01/04/2024. * Fluid with normal white count and pH. * Patient continues to have abdominal distension and abdominal discomfort. * 3/3 Paracentesis yielding 3300 mL of fluid. * Patient started on spironolactone. (7) Cirrhosis: Code(s): K74.60 - Unspecified cirrhosis of liver Status: Acute Assessment and Plan: Patient states that he has been diagnosed with cirrhosis for several months. * He states that he does not know the cause of his cirrhosis in denies alcohol abuse. * He is not on any current medication for his cirrhosis. He does not see hepatology. Subjective Date/time seen: 01/06/24 11:33 Exam Narrative: GENERAL: Comfortable, no acute distress HENMT: moist mucous membranes EYES: EOM intact b/l NECK: no lymphadenopathy RESPIRATORY: clear to auscultation CARDIO: RR
--- NOTE | 2024-01-06 11:33 | PM.IMPN ---
Progress Note: A&P Assessment and Plan (1) Anemia requiring transfusions: Code(s): D64.9 - Anemia, unspecified Status: Acute Assessment and Plan: 01/02/2024 H&H of 5.6/19.4, patient received 2 units of PRBCs. Patient has recurrent symptomatic anemia iron studies are consistent with iron deficiency anemia. Patient was recently started on iron supplements outpatient due to recent iron studies. Despite being on iron supplementation patient's hemoglobin continues to drop. He does have a history of atrial fibrillation and is on chronic anticoagulation with Eliquis and baby aspirin daily. Will hold the patient's home Eliquis. Gastroenterology has been consulted. Colonoscopy today revealed 3 polyps and small internal hemorrhoids with no active bleeding. EGD showing esophageal varices which were nonbleeding. 01/04/2024 H&H 6.7/22.2, pt recieved 2 units of PRBCs Hematology/ oncology consulted due to persistent anemia without known cause. According to [facility] patient's labs are at his baseline. They recommend maintaining follow-up with them as an outpatient. 3/ H&H has remained stable. (2) Fecal occult blood test positive: Code(s): R19.5 - Other fecal abnormalities Status: Acute Assessment and Plan: Will repeat CBC as patient has received 2 units packed red blood cells. Will transfuse as needed for stable hemoglobin. Will continue his PPI therapy but this was be substituted to Protonix. Colonoscopy today revealed 3 polyps and small internal hemorrhoids with no active bleeding. EGD showing esophageal varices which were nonbleeding. (3) Type 2 diabetes mellitus with hyperglycemia, without long-term current use of insulin: Code(s): E11.65 - Type 2 diabetes mellitus with hyperglycemia Status: Acute Assessment and Plan: Insulin Lispro sliding scale, Accu-checks qAc and HS and Hold oral hypoglycemics Initiate hypoglycemic precautions (4) KINJAL (iron deficiency anemia): Code(s): D50.9 - Iron deficiency anemia, unspecified Status: Acute Assessment and Plan: See 1. (5) Pancytopenia: Code(s): D61.818 - Other pancytopenia Status: Acute Assessment and Plan: Patient does have history of cancer. Last cancer treatment was at the end of 2022. Will consult Hematology/Oncology. (6) Ascites: Code(s): R18.8 - Other ascites Status: Acute Assessment and Plan: Patient with increased abdominal pressure. Patient had paracentesis with 2200 mL hold off on 01/04/2024. Fluid with normal white count and pH. Patient continues to have abdominal distension and abdominal discomfort. / Paracentesis yielding 3300 mL of fluid. Patient started on spironolactone. (7) Cirrhosis: Code(s): K74.60 - Unspecified cirrhosis of liver Status: Acute Assessment and Plan: Patient states that he has been diagnosed with cirrhosis for several months. He states that he does not know the cause of his cirrhosis in denies alcohol abuse. He is not on any current medication for his cirrhosis. He does not see hepatology. Subjective Date/time seen: 01/06/24 11:33 Exam Narrative: GENERAL: Comfortable, no acute distress HENMT: moist mucous membranes EYES: EOM intact b/l NECK: no lymphadenopathy RESPIRATORY: clear to auscultation CARDIO: RRR GI: Distended, nontender, bowel sounds present SKIN: no rashes EXTREMITIES: no edema, redness or tenderness Objective Data Vital Signs Vital Signs: Vital Signs - 24 hr 01/05/24 13:49 01/05/24 20:14 01/05/24 20:10 Temperature 98 F Pulse Rate 62 78 78 Respiratory Rate 16 16 Blood Pressure 103/43 L Pulse Oximetry 100 100 Oxygen Delivery Room Air 01/05/24 21:53 01/06/24 06:30 01/06/24 08:00 Temperature 98.8 F 97.7 F Pulse Rate 60 65 Respiratory Rate 16 18 Blood Pressure 102
--- NOTE | 2024-01-06 11:36 | P.DS_ITS ---
DS: Admitting Diagnosis Discharge Date 01/06/24 Admitting Diagnosis Anemia, positive Hemoccult DS: Discharge Diagnosis Discharge Diagnosis (1) Anemia requiring transfusions: Code(s): D64.9 - Anemia, unspecified Status: Acute Assessment and Plan: * 01/02/2024 H&H of 5.6/19.4, patient received 2 units of PRBCs. * Patient has recurrent symptomatic anemia iron studies are consistent with iron deficiency anemia. * Patient was recently started on iron supplements outpatient due to recent iron studies. * Despite being on iron supplementation patient's hemoglobin continues to drop. * He does have a history of atrial fibrillation and is on chronic anticoagulation with Eliquis and baby aspirin daily. Will hold the patient's home Eliquis. * Gastroenterology has been consulted. * Colonoscopy today revealed 3 polyps and small internal hemorrhoids with no active bleeding. * EGD showing esophageal varices which were nonbleeding. * 01/04/2024 H&H 6.7/22.2, pt recieved 2 units of PRBCs * Hematology/ oncology consulted due to persistent anemia without known cause. * According to [facility] patient's labs are at his baseline. They recommend maintaining follow-up with them as an outpatient. * 3/ H&H has remained stable. (2) Fecal occult blood test positive: Code(s): R19.5 - Other fecal abnormalities Status: Acute Assessment and Plan: * Will repeat CBC as patient has received 2 units packed red blood cells. * Will transfuse as needed for stable hemoglobin. * Will continue his PPI therapy but this was be substituted to Protonix. * Colonoscopy today revealed 3 polyps and small internal hemorrhoids with no active bleeding. * EGD showing esophageal varices which were nonbleeding. (3) Type 2 diabetes mellitus with hyperglycemia, without long-term current use of insulin: Code(s): E11.65 - Type 2 diabetes mellitus with hyperglycemia Status: Acute Assessment and Plan: Insulin Lispro sliding scale, Accu-checks qAc and HS and Hold oral hypoglycemics Initiate hypoglycemic precautions (4) KINJAL (iron deficiency anemia): Code(s): D50.9 - Iron deficiency anemia, unspecified Status: Acute Assessment and Plan: See 1. (5) Pancytopenia: Code(s): D61.818 - Other pancytopenia Status: Acute Assessment and Plan: Patient does have history of cancer. * Last cancer treatment was at the end of 2022. * Will consult Hematology/Oncology. (6) Ascites: Code(s): R18.8 - Other ascites Status: Acute Assessment and Plan: Patient with increased abdominal pressure. Patient had paracentesis with 2200 mL hold off on 01/04/2024. * Fluid with normal white count and pH. * Patient continues to have abdominal distension and abdominal discomfort. * 3/3 Paracentesis yielding 3300 mL of fluid. * Patient started on spironolactone. (7) Cirrhosis: Code(s): K74.60 - Unspecified cirrhosis of liver Status: Acute Assessment and Plan: Patient states that he has been diagnosed with cirrhosis for several months. * He states that he does not know the cause of his cirrhosis in denies alcohol abuse. * He is not on any current medication for his cirrhosis. He does not see hepatology. DS: Summary Hospital Course Hospital Course: 78-year-old male with a past medical history of non-Hodgkin's lymphoma on chemotherapy since February, status
--- NOTE | 2024-01-06 11:36 | PM.DS ---
DS: Admitting Diagnosis Discharge Date 01/06/24 Admitting Diagnosis Anemia, positive Hemoccult DS: Discharge Diagnosis Discharge Diagnosis (1) Anemia requiring transfusions: Code(s): D64.9 - Anemia, unspecified Status: Acute Assessment and Plan: 01/02/2024 H&H of 5.6/19.4, patient received 2 units of PRBCs. Patient has recurrent symptomatic anemia iron studies are consistent with iron deficiency anemia. Patient was recently started on iron supplements outpatient due to recent iron studies. Despite being on iron supplementation patient's hemoglobin continues to drop. He does have a history of atrial fibrillation and is on chronic anticoagulation with Eliquis and baby aspirin daily. Will hold the patient's home Eliquis. Gastroenterology has been consulted. Colonoscopy today revealed 3 polyps and small internal hemorrhoids with no active bleeding. EGD showing esophageal varices which were nonbleeding. 01/04/2024 H&H 6.7/22.2, pt recieved 2 units of PRBCs Hematology/ oncology consulted due to persistent anemia without known cause. According to [facility] patient's labs are at his baseline. They recommend maintaining follow-up with them as an outpatient. 01/05 H&H has remained stable. (2) Fecal occult blood test positive: Code(s): R19.5 - Other fecal abnormalities Status: Acute Assessment and Plan: Will repeat CBC as patient has received 2 units packed red blood cells. Will transfuse as needed for stable hemoglobin. Will continue his PPI therapy but this was be substituted to Protonix. Colonoscopy today revealed 3 polyps and small internal hemorrhoids with no active bleeding. EGD showing esophageal varices which were nonbleeding. (3) Type 2 diabetes mellitus with hyperglycemia, without long-term current use of insulin: Code(s): E11.65 - Type 2 diabetes mellitus with hyperglycemia Status: Acute Assessment and Plan: Insulin Lispro sliding scale, Accu-checks qAc and HS and Hold oral hypoglycemics Initiate hypoglycemic precautions (4) KINJAL (iron deficiency anemia): Code(s): D50.9 - Iron deficiency anemia, unspecified Status: Acute Assessment and Plan: See 1. (5) Pancytopenia: Code(s): D61.818 - Other pancytopenia Status: Acute Assessment and Plan: Patient does have history of cancer. Last cancer treatment was at the end of 2022. Will consult Hematology/Oncology. (6) Ascites: Code(s): R18.8 - Other ascites Status: Acute Assessment and Plan: Patient with increased abdominal pressure. Patient had paracentesis with 2200 mL hold off on 01/04/2024. Fluid with normal white count and pH. Patient continues to have abdominal distension and abdominal discomfort. 3/3 Paracentesis yielding 3300 mL of fluid. Patient started on spironolactone. (7) Cirrhosis: Code(s): K74.60 - Unspecified cirrhosis of liver Status: Acute Assessment and Plan: Patient states that he has been diagnosed with cirrhosis for several months. He states that he does not know the cause of his cirrhosis in denies alcohol abuse. He is not on any current medication for his cirrhosis. He does not see hepatology. DS: Summary Hospital Course Hospital Course: 78-year-old male with a past medical history of non-Hodgkin's lymphoma on chemotherapy since February, status post pacemaker defibrillator , cirrhosis and type 2 diabetes mellitus who presented to the ER via private vehicle due to low hemoglobin.? Patient had outpatient labs performed by his primary care provider which demonstrated hemoglobin of 5.7.? Patient denied any black or bloody stools.? In the ER patient did Hemoccult-positive stool.? Approximately 2 weeks ago he was anemic at that time and received 3 units of blood as outpatient.? He reported the ER staff that he has chronic diarrhea. Patient
[2024-01-07 17:08] LABS: Methylmalonic Acid 129 nmol/L (87-318)
[2024-01-08 13:08] LABS: Albumin Peritoneal Fluid 0.4 g/dL
[2024-01-09 18:42] LABS: Platelet Antibody, Direct NEGATIVE (NEGATIVE)
[2024-01-09 22:54] LABS: Mitochondrial (M2) Ab (IgG) <=20.0 U (<=20.0)
[2024-01-10 07:38] LABS: Ceruloplasmin 31 mg/dL (18-36)
[2024-01-10 15:18] LABS: Soluble Transferrin Receptor 2.81 mg/L (0.76-1.76)
[2024-01-10 22:09] LABS: Anti Nuclear Antibody Titer 1:40 (Negative)
== END 2024-01-06 12:35 | disposition home or self-care (01) | DRG 812 ==
LOC: ANHED 17:24 → ANH2MED 21:25
PROVIDERS: Internal Medicine Gastroenterology; Nurse Practitioner Family; Admitting Provider Internal Medicine; Emergency Provider Student in an Organized Health Care Education/Training Program; PCP Internal Medicine; Visit Provider Internal Medicine Critical Care Medicine
PROC: 0DJ08ZZ Inspection of Upper Intestinal Tract, Via Natural or Artificial Opening Endoscopic (ICD-10-PCS; CPT 43235; principal; 2024-01-03 13:00)
DX: D50.0 Iron deficiency anemia secondary to blood loss (chronic) (principal); R18.8 Other ascites; E87.1 Hypo-osmolality and hyponatremia; I85.00 Esophageal varices without bleeding; D61.818 Other pancytopenia; C85.10 Unspecified B-cell lymphoma, unspecified site; K29.70 Gastritis, unspecified, without bleeding; D64.81 Anemia due to antineoplastic chemotherapy; D63.0 Anemia in neoplastic disease; D63.8 Anemia in other chronic diseases classified elsewhere; R19.5 Other fecal abnormalities; E11.65 Type 2 diabetes mellitus with hyperglycemia; K64.8 Other hemorrhoids; K63.5 Polyp of colon; K74.60 Unspecified cirrhosis of liver; K21.9 Gastro-esophageal reflux disease without esophagitis; E78.5 Hyperlipidemia, unspecified; E53.8 Deficiency of other specified B group vitamins; I48.91 Unspecified atrial fibrillation; Z95.810 Presence of automatic (implantable) cardiac defibrillator; Z85.828 Personal history of other malignant neoplasm of skin; Z98.1 Arthrodesis status; Z96.1 Presence of intraocular lens; Z98.42 Cataract extraction status, left eye; Z98.41 Cataract extraction status, right eye; Z87.891 Personal history of nicotine dependence; Z79.01 Long term (current) use of anticoagulants; Z79.82 Long term (current) use of aspirin
CPT/HCPCS: 36415; 36430; 49083; 74174; 80048; 80053; 80074; 82042; 82104; 82390; 82607; 82728; 82746; 82948; 83036; 83520; 83540; 83550; 83735; 83921; 84238; 84443; 85014; 85018; 85025; 85027; 85055; 85610; 85730; 86023; 86038; 86039; 86850; 86900; 86901; 86923; 87070; 87075; 87205; 87637; 87799; 88305; 89051; 96365; 99285; A9270; G0378; J1642; J1741; J1756; J1815; J2405; J2704; J7040; J7050; J7120; P9016; Q9967

== ENCOUNTER 2024-01-15 04:53 | Inpatient (IN) | payer OTHER, SELFPAY ==
[2024-01-15] VITALS (26 sets, daily range): BP systolic 99–131; BP diastolic 42–76; PULSE 66–100; RESP 14–19; TEMP 35.8–37; O2SAT 97–100; BMI 24.7
--- NOTE | ~2024-01-15 | CT_ITS ---
CT of the Abdomen and Pelvis: Indication: Abdominal pain Technique: 2.5 mm axial scans were obtained through the abdomen and pelvis following intravenous adm inistration of 100 cc of Omnipaque 350. Dose reduction technique was used on this scan by utilizing a utomated exposure control and iterative reconstruction technique. The dose-length product (DLP) was 7 91.15 mGy-cm. COMPARISON: 01/02/2024 Findings: Scans through the lung bases are unremarkable. Liver demonstrates diffuse nodular contour, compatible cirrhosis. No focal hepatic mass or biliary di latation seen. The spleen, pancreas, gallbladder, adrenals and kidneys are within normal limits. Ther e are atherosclerotic calcifications of the aorta. No lymphadenopathy. No bowel obstruction or bowel wall thickening. There is no evidence to suggest acute appendicitis. Images through the pelvis were performed. Urinary bladder unremarkable. Prostate gland and seminal ve sicles are unremarkable. Moderate to large amount of abdominopelvic ascites present. Bilateral L5 par s interarticularis defects are present, with 5 mm anterolisthesis of L5 over S1. Impression: Cirrhosis with moderate to large amount of abdominopelvic ascites. Reviewed, dictated and finalized at location . Impression: Cirrhosis with moderate to large amount of abdominopelvic ascites.
--- NOTE | ~2024-01-15 | US_ITS ---
EXAMINATION: US paracentesis abd w/image DATE: 01/16/2024 15:22 INDICATION: Ascites. TECHNIQUE: The procedure and its risks, benefits, and alternatives were discussed with the patient. P otential risks discussed included bleeding and infection. The skin was prepped and draped in sterile fashion. 1% lidocaine was used for local anesthesia. Under ultrasound guidance, a 5 Fr catheter with trochar was advanced into the ascites in the left lower quadrant. Fluid was aspirated. The catheter w as removed, and a dressing was applied. There were no immediate complications. FINDINGS: Ultrasound images demonstrate ascites and the catheter within the fluid. IMPRESSION: 1. Successful ultrasound-guided paracentesis yielding 1550 mL of clear, yellow fluid. Reviewed, dictated and finalized at location A.
--- NOTE | ~2024-01-15 | XR_ITS ---
Portable chest x-ray Comparison: 02/22/2023 Clinical History: Weakness Findings: Right-sided Mediport unchanged. Lungs are clear, without focal consolidation or pleural ef fusion. Cardiomediastinal silhouette is stable, with pacemaker device. Bones and soft tissues are un remarkable. Impression: Clear lungs. Mediport and pacemaker device in place. Reviewed, dictated and finalized at location M. Impression: Clear lungs. Mediport and pacemaker device in place.
--- NOTE | ~2024-01-15 | CT_ITS ---
Non-contrast Head CT History: Altered mental status Technique: Axial non-contrast imaging of the brain was performed. Dose reduction technique was used on this scan by utilizing automated exposure control and iterative reconstruction technique. The dose -length product (DLP) was 983.67 mGy-cm. Findings: There is no evidence of intracranial hemorrhage, mass lesion, or acute infarct. Brain par enchyma appears normal. The ventricles and subarachnoid spaces are normal in size. The calvarium ap pears normal. The visualized paranasal sinuses and mastoid air cells are clear. Impression: No significant abnormality seen. Reviewed, dictated and finalized at location . Impression: No significant abnormality seen.
--- NOTE | 2024-01-15 05:42 | ECG_ITS ---
Measurements Intervals [place] Rate: 69 P: -22 [place]: 167 QRS: 14 QRSD: 102 T: 122 QT: 388 QTc: 417 Interpretive Statements SINUS RHYTHM CONSIDER INFERIOR INFARCT, AGE INDETERMINATE BORDERLINE ST-T WAVE ABNORMALITY- ANTEROLAT/HIGH LAT LEADS BASELINE ARTIFACT- I, III, AVR, AVL, V2-V6 ABNORMAL ECG NO PREVIOUS ECG AVAILABLE FOR COMPARISON Electronically Signed On 01-15-2024 6:43:04 CDT by Moises Marcial D.O.
[2024-01-15 05:44] LABS: Basophils Percent Auto 0.4 % (0.2-1.2); Eosinophils Absolute Auto 0.1 K/mm3 (0-0.3); Eosinophils Percent Auto 1.4 % (0-4.4); Hematocrit 21.7 % (42.0-52.0); Immature Granulocyte Absolute 0.09 K/mm3 (0.00-0.031); Immature Granulocyte Percent A 1.6 % (0-0.5); Lymphocytes Absolute Auto 0.37 K/mm3 (0.9-3.2); Lymphocytes Percent Auto 6.6 % (18.3-44.2); Mean Corpuscular HGB Conc 30.9 g/dl (32-36); Mean Corpuscular Hemoglobin 30.2 pg (26-34); Mean Corpuscular Volume 97.7 fl (80-100); Mean Platelet Volume 11.1 fl (7.4-10.4); Monocytes Absolute Auto 0.5 K/mm3 (0.1-0.6); Monocytes Percent Auto 8.2 % (2.6-8.5); Neutrophils Absolute Auto 4.6 K/mm3 (1.3-6.7); Neutrophils Percent Auto 81.8 % (45.5-73.1); Platelet Count Result 189 k/mm3 (150-375); Red Blood Count 2.22 M/mm3 (4.6-6.20); Red Cell Distribution Width 20.2 % (11.5-14.5); White Blood Count 5.6 K/mm3 (4.5-10.0)
--- NOTE | 2024-01-15 05:45 | ED.GENADULT ---
HPI - General Adult General Chief complaint: Abdominal Pain <Isidro Wehat MD - Last Filed: 01/15/24 06:57> Stated complaint: belching <Isidro Wheat MD - Last Filed: 01/15/24 06:57> Time Seen by Provider: 01/15/24 05:36 <Isidro Wheat MD - Last Filed: 01/15/24 06:57> History of Present Illness HPI narrative: patient is a 78-year-old gentleman who presents emergency department with chief complaint of abdominal bloating and feeling very slow and weak. The patient was just discharged from hospital after receiving blood transfusions and had outpatient blood work showed that he was anemic. patient was scheduled for outpatient blood transfusions today but the patient noticed that he is feeling very weak and decided to come to the emergency department. <Isidro Wheat MD - Last Filed: 01/15/24 06:57> Related Data Home medications: Home Medications Medication Instructions Recorded Confirmed apixaban 5 mg tablet (Eliquis) 5 mg PO BID 06/19/22 01/02/24 cholecalciferol (vitamin D3) 25 25 mcg PO DAILY 06/19/22 01/02/24 mcg (1,000 unit) capsule empagliflozin 25 mg tablet 25 mg PO QAM 06/19/22 01/02/24 (Jardiance) ferrous sulfate 325 mg (65 mg 325 mg PO BID 06/19/22 01/02/24 iron) capsule,extended release fluticasone propionate 50 2 spray intranasal DAILY 06/19/22 01/02/24 mcg/actuation nasal spray,suspension nystatin 100,000 unit/gram topical 1 applic topical BID PRN MOUTH 06/19/22 01/02/24 cream SORES omeprazole 40 mg capsule,delayed 40 mg PO BID 06/19/22 01/02/24 release simvastatin 20 mg tablet (Zocor) 20 mg PO DAILY 06/19/22 01/02/24 cyanocobalamin (vitamin B-12) 1,000 mcg PO DAILY 11/29/22 01/02/24 1,000 mcg tablet lisinopril 30 mg tablet 30 mg QAM 02/14/23 01/02/24 metformin 1,000 mg tablet 1,000 mg BID 02/14/23 01/02/24 sucralfate 1 g PO QID 09/04/23 01/02/24 acyclovir 400 mg tablet 400 mg PO BID 12/25/23 01/02/24 aspirin 81 mg tablet 81 mg PO DAILY 12/25/23 01/02/24 <Isidro Wheat MD - Last Filed: 01/15/24 06:57> Allergies/adverse reactions: Allergies Allergy/AdvReac Type Severity Reaction Status Date / Time cefditoren AdvReac Rash Verified 12/25/23 07:53 tetracycline AdvReac Rash Verified 12/25/23 07:53 <Isidro Wheat MD - Last Filed: 01/15/24 06:57> Review of Systems Review of Systems: A 10 system review of systems was completed on the patient and is negative except for what is stated in the HPI. Nursing and ancillary documentation was reviewed. 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 Perez Pacemaker Skin cancer <Isidro Wheat MD - Last Filed: 01/15/24 06:57> Surgical History Surgical History: Surgical History S/P cervical spinal fusion Status post cataract extraction of both eyes with insertion of intraocular lens Status post implantation of automatic cardioverter/defibrillator (AICD) (~2020) <Isidro Wheat MD - Last Filed: 01/15/24 06:57> Family History Family History: Family History Father Heart problem Mother Heart problem <Isidro Wheat MD - Last Filed: 01/15/24 06:57> Social History Social History: Social History Social History:
[2024-01-15 05:46] LABS: Hemoglobin 6.7 g/dL (14.0-18.0)
[2024-01-15 05:47] LABS: Appearance Urine Clear (Clear); Bilirubin Urine Negative (Negative); Blood Urine Negative (Negative); Color Urine Yellow (Yellow); Glucose Urine UA 3+ mg/dL (Negative); Ketones Urine Trace mg/dL (Negative); Leukocyte Esterase Ur Negative LEU/UL (Negative); Nitrate Urine Negative (Negative); Protein Urine Negative (Negative); Specific Grav Ur 1.029 (1.001-1.035); Urobilinogen Urine 0.2 mg/dL (<2.0); pH Urine 5.5 (5.0-9.0)
[2024-01-15 05:58] LABS: Add Urine Microscopic? NO; Alanine Aminotransferase 35 U/L (6-50); Albumin Level 2.7 g/dL (3.5-5.1); Alkaline Phosphatase 129 U/L (38-126); Anion Gap 10 mmol/L (8-16); Aspartate Amino Transferase 33 U/L (17-59); Bilirubin,Total 0.7 mg/dL (0.2-1.3); Blood Urea Nitrogen 33 mg/dL (9-20); Calcium 9.3 mg/dL (8.4-10.2); Carbon Dioxide 17 mmol/L (22-30); Chloride 102 mmol/L (98-107); Estimated CRCL calculation 45 ml/min; Estimated Glomerular Filt Rate > 60; Glucose 367 mg/dL (65-110); Lipase 52 U/L (23-300); Potassium 4.5 mmol/L (3.4-5.0); Sodium 129 mmol/L (137-145)
[2024-01-15 06:01] LABS: Magnesium 2.4 mg/dL (1.6-2.3)
[2024-01-15 06:13] LABS: Troponin I < 0.012 ng/mL (0.000-0.034)
--- NOTE | 2024-01-15 06:14 | PC.NURSE ---
Consent for blood transfusion signed by spouse of patient
[2024-01-15 06:23] LABS: Ammonia 69 umol/L (9-30)
[2024-01-15 06:34] LABS: Procalcitonin 0.1 ng/mL
[2024-01-15 06:36] LABS: Influenza A QL RT-PCR Negative (Negative); Influenza B QL RT-PCR Negative (Negative); RSV RNA, RT-PCR Negative (Negative); SARS-CoV-2 RNA PCR Positive (Negative)
[2024-01-15 06:36] LABS: INR 1.6; Prothrombin Time 20.4 Seconds (11.1-14.7)
[2024-01-15 06:37] LABS: Partial Thromboplastin Time 31.2 SECONDS (22.3-36.8)
[2024-01-15] MEDS: LACTULOSE 20 GM/30 ML UDC PO (06:49)
[2024-01-15] MEDS: SODIUM CHLORIDE 0.9% IV 250 ML 30 ML IV CONT (06:50)
[2024-01-15 06:54] LABS: Lactic Acid Reflex 6.8 mmol/L (0.7-2.0)
[2024-01-15] MEDS: CENTRAL LINE FLUSH 10 ML IV PUSH ×3 (06:55→21:04)
[2024-01-15 09:11] LABS: Reflex Lactic Acid Yes or No Add Lactic
[2024-01-15] MEDS: THIAMINE 500 MG/NS 100 ML 500 MG/100 ML BAG 200 MG IVPB (09:15)
[2024-01-15] MEDS: PANTOPRAZOLE SODIUM IV 40 MG VIAL IV PUSH (09:21)
[2024-01-15] MEDS: CIPROFLOXACIN 400 MG/D5W 200ML 200 ML 200 MG IVPB ×2 (09:26→17:28)
--- NOTE | 2024-01-15 09:53 | ADMGEN ---
This patient, Estuardo Renae, was admitted to IMU Room 213-01. Patient/family oriented to hospital policies and general routines including ID bracelet, bed and alarms, visiting hours, pain management, procedures, bathroom and other care routines, personal items, smoking policy, room service/diet, and visiting hours. Information on how to activate the Rapid Response Team has been discussed. Patient/Family are encouraged to report perceived risks to care and to ask questions if they do not understand what they are told or what they should do.
[2024-01-15 10:14] LABS: Lactic Acid 4.5 mmol/L (0.7-2.0)
--- NOTE | 2024-01-15 10:18 | WPDGICN ---
Assessment and Plan Assessment and plan (1) Ascites: Code(s): R18.8 - Other ascites Status: Acute Assessment and Plan: -CT with moderate/large ascites -this is related to portal htn -Previous paracentesis on 01/04/24 with 2200 mL removed (SAAG consistent with portal htn, no SBP) -Paracentesis 01/06/24 with 3300 mL removed -Will get US guided paracentesis with cell ct, culture and cytology -He should continue Spironolactone 100 mg and add Lasix 40 mg daily. These can be given at the same time -Hospitalist to monitor kidney function and electrolytes -Paracentesis as needed -Low salt diet, less than 2 G daily (2) Hepatic encephalopathy: Code(s): K76.82 - Hepatic encephalopathy Status: Acute Assessment and Plan: Confused on admission, Ammonia 69-head CT negative up moving in bathroom at time of being seen, likely improved given 1 dose of lactulose in ED Will continue Lactulose daily while inpatient, titrate 3-4 BM per day -add xifaxan 550 mg BID, which he should continue at discharge -Monitor signs and symptoms of HE (3) Cirrhosis of liver with ascites: Code(s): K74.60 - Unspecified cirrhosis of liver; R18.8 - Other ascites Status: Acute Assessment and Plan: -Likely related to CLARK, previous acute hepatitis panel negative and AMA negative -Ascites related to portal hypertension -Will complete rest of liver work up labs in AM -No liver masses on recent CT scan -EGD 01/03/24 with small grade 1 varices, repeat EGD in 2 years for variceal screening -Need close f/u with collection support specialist or our office at d/c. (4) Esophageal varices: Code(s): I85.00 - Esophageal varices without bleeding Status: Acute Assessment and Plan: Small Varices Continue propranalol EGD 2 years (5) COVID-19: Code(s): U07.1 - COVID-19 Status: Acute Assessment and Plan: On droplet precautions (6) Acute on chronic anemia: Code(s): D64.9 - Anemia, unspecified Status: Acute Assessment and Plan: hgb 6.7 transfused 2 units Gi work up negative with EGD/ colonoscopy last admission (7) Type 2 diabetes mellitus with hyperglycemia, without long-term current use of insulin: Code(s): E11.65 - Type 2 diabetes mellitus with hyperglycemia Status: Acute (8) Follicular lymphoma: Code(s): C82.90 - Follicular lymphoma, unspecified, unspecified site Status: Acute GI Consult Note Consult date/time: 01/15/24 10:18 Reason for consult: cirrhosis and HE HPI: Estuardo Renae is a 78 year old male asked to be seen at request of hospitalist for cirrhosis and HE. ?past medical history of follicular lymphoma, t(14:18) involving the mesentery, stage II, FLIPI score 2 with bulky disease (>6 cm) involving 3 sites (left pelvis, right pelvis, mesentery) on chemotherapy since February and XRT, status post pacemaker defibrillator and type 2 diabetes mellitus. Patient presented to [facility] ER today around 530 for abdominal bloating feeling slow and week, he was supposed to have a blood transfusion done outpatient through his oncologist but due to him feeling weak decided to come to the ER instead. Found hgb 6.7, received [address] abd/pelvis this admission with cirrhosis with moderate to large amount of abdominopelvic ascites-no liver masses. Mild elevation of ap 129. due to being somewhat confused, ammonia level elevated at 69, head CT negative-lactic acid elevated. Discharged from [facility] on for acute anemia with transfusion, seen by Dr. Shearer with EGD/Colonoscopy with no acute findings to explain acute anemia along with cirrhosis of the liver. EGD with small varices and placed on propranolol. Had paracentesis x 2 last admission and on 01/03 with 2200 mL removed (no sbp, ascites culture negative-SAAG consistent with portal htn). Another paracentesis 01/05 with 3300 mL removed. He was d/c on spironolactone for ascites. He was seen this admission after he
[2024-01-15] MEDS: SODIUM CHLORIDE 0.9% IV 500 ML 125 ML (11:56)
--- NOTE | 2024-01-15 13:34 | PM.IMHP ---
H&P: HPI History of Present Illness Date/Time: 01/15/24 13:30 Chief Complaint: Abdominal pain and weakness. Narrative: This is a 78-year-old male with cirrhosis of the liver, non-Hodgkin lymphoma, hypertension, paroxysmal atrial fibrillation, status post implantation cardioverter/defibrillator, type 2 diabetes mellitus, gastroesophageal reflux disease, and chronic anemia who presented to the emergency department for evaluation of abdominal pain and weakness. The patient provides the following history. He was admitted to the hospital at the end of last month with symptomatic anemia and Hemoccult-positive stools. EGD and colonoscopy per Dr. Musa showed nonbleeding esophageal varices and gastritis and several benign colon polyps and internal hemorrhoids without evidence of active bleeding. He was transfused to a stable hemoglobin and Eliquis was held. He had a paracentesis as well which yielded 3300 mL of fluid and he was started on propranolol, spironolactone, and omeprazole at discharge. Overall he has not been feeling well with generalized weakness and intermittent abdominal bloating and discomfort. He had labs done yesterday which showed that he was once again anemic and needed a blood transfusion which was scheduled for today however due to his weakness he came to the ED for evaluation. He reports that his abdomen feels tight and he believes it is due to the fluid reaccumulation. His appetite has been okay. He denies nausea and vomiting but does report some loose stools. He has not noticed any dark stools or bright red blood in the stools however. He also denies fever, chills, sweats, chest pain, pleuritic pain, and cough. In the ED: He was afebrile on arrival. Blood pressures were initially at the low end of normal but have improved. His lab were significant for WBC count of 5.6, hemoglobin 6.7, hematocrit 21.7%, platelet 189, INR 1.6, sodium 129, carbon dioxide 17, BUN 33, creatinine 1.00, lactic acid 6.8, glucose 365, ammonia 69, total protein 5.0, albumin 2.7. He tested positive for SARS-CoV-[address] showed no acute abnormalities. CT of the abdomen and pelvis showed cirrhosis and moderate to large amount of ascites. Stool was grossly brown but was Hemoccult positive. He was given a dose of IV pantoprazole and ciprofloxacin for possible SBP and he is being admitted in this setting for further treatment and evaluation. Review of Systems Review of Systems: Twelve systems were reviewed and are negative except for as per HPI. [facility] Past Medical History Medical History B12 deficiency Cardiac defibrillator in place (~2020) Chronic obstructive pulmonary disease Cirrhosis Erosive gastritis Esophageal varices Gastroesophageal reflux disease Hearing loss Hepatitis Hyperlipidemia Iron deficiency anemia Non-Hodgkin lymphoma (02/2023) Follicular lymphoma; 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 Paroxysmal atrial fibrillation Skin cancer Type 2 diabetes mellitus Surgical History Surgical History History of automatic internal cardiac defibrillator (AICD) (2020) History of cataract extraction with lens replacement History of fusion of cervical spine History of permanent cardiac pacemaker placement (2020) Family History Family History Father Heart problem Mother Heart problem Social History Social History Social History: Surrogate medical decision maker: Nicki Renae, spouse. Code status: Full code. Smoking packs per day: 2 Smoking cigarettes per day: 40.0 Years smoked: 8 Smoking pack-years: 16.00 Smoking status: Former smoker Tobacco type: cigarettes and cigars Second hand tobacco smoke exposure: No Alcohol intake: former Substance use: never Substance use type: does not use Do Y
[2024-01-15] MEDS: TUBING, BLOOD PLUM PUMP TUBING 1 EACH XX (15:46)
[2024-01-15] MEDS: REMDESIVIR 200 MG/NS 250 ML 200 MG/250 ML BAG 250 MG IVPB (15:49)
[2024-01-15 17:12] LABS: IFOB Positive Control Positive; Immunochemical Fecal Occult Bl Positive (N)
[2024-01-15 17:13] LABS: Creatinine Urine 52.5 mg/dL; Urea Random Urine 514 MG/DL
[2024-01-15 17:17] LABS: Sodium Urine Random 69 meq/L
[2024-01-15 19:15] LABS: Thyroid Stimulating Hormone Reflex 0.985 uIU/mL (0.465-4.68)
[2024-01-15] MEDS: rifAXIMin 550 MG TABLET PO (21:04)
[2024-01-15] MEDS: ACYCLOVIR 400 MG TABLET PO (23:05)
[2024-01-15] MEDS: INSULIN ASPART (*BKC) 100 UNITS/ML SUB-Q (23:06)
[2024-01-15] MEDS: SIMVASTATIN 20 MG TABLET PO (23:06)
[2024-01-15] MEDS: PROPRANOLOL HCL 10 MG TABLET PO (23:06)
[2024-01-15 23:15] LABS: Glucose Point of Care 323 mg/dl (65-105)
[2024-01-16] VITALS (15 sets, daily range): BP systolic 92–134; BP diastolic 44–56; PULSE 60–117; RESP 16–18; TEMP 36.5–37.1; O2SAT 97–99
[2024-01-16] MEDS: CENTRAL LINE FLUSH 10 ML IV PUSH ×3 (05:48→21:39)
[2024-01-16] MEDS: CIPROFLOXACIN 400 MG/D5W 200ML 200 ML 200 MG IVPB ×2 (05:48→17:37)
[2024-01-16 06:06] LABS: Hematocrit 27.6 % (42.0-52.0); Hemoglobin 8.5 g/dL (14.0-18.0); Mean Corpuscular HGB Conc 30.8 g/dl (32-36); Mean Corpuscular Hemoglobin 29.6 pg (26-34); Mean Corpuscular Volume 96.2 fl (80-100); Mean Platelet Volume 11.1 fl (7.4-10.4); Platelet Count Result 102 k/mm3 (150-375); Red Blood Count 2.87 M/mm3 (4.6-6.20); Red Cell Distribution Width 19.7 % (11.5-14.5); White Blood Count 2.5 K/mm3 (4.5-10.0)
[2024-01-16 06:13] LABS: Alanine Aminotransferase 27 U/L (6-50); Albumin Level 2.6 g/dL (3.5-5.1); Alkaline Phosphatase 106 U/L (38-126); Anion Gap 1 mmol/L (8-16); Aspartate Amino Transferase 39 U/L (17-59); Blood Urea Nitrogen 26 mg/dL (9-20); Calcium 9.1 mg/dL (8.4-10.2); Carbon Dioxide 27 mmol/L (22-30); Chloride 107 mmol/L (98-107); Estimated CRCL calculation 55 ml/min; Estimated Glomerular Filt Rate > 60; Glucose 193 mg/dL (65-110); Magnesium 2.3 mg/dL (1.6-2.3); Potassium 3.7 mmol/L (3.4-5.0); Sodium 135 mmol/L (137-145)
[2024-01-16] MEDS: ACYCLOVIR 400 MG TABLET PO ×2 (10:19→20:12)
[2024-01-16] MEDS: CHOLECALCIFEROL 1,000 UNITS TABLET 1000 UNITS PO (10:20)
[2024-01-16] MEDS: SPIRONOLACTONE 50 MG TABLET 100 MG PO (10:20)
[2024-01-16] MEDS: CYANOCOBALAMIN 1,000 MCG TABLET 1000 MCG PO (10:20)
[2024-01-16] MEDS: rifAXIMin 550 MG TABLET PO ×2 (10:20→20:12)
[2024-01-16] MEDS: PANTOPRAZOLE 40 MG TABLET PO ×2 (10:21→17:27)
[2024-01-16] MEDS: SUCRALFATE 1 GM TABLET PO ×3 (10:23→20:12)
[2024-01-16] MEDS: EMPAGLIFLOZIN 25 MG TABLET PO (10:23)
[2024-01-16] MEDS: FERROUS SULFATE 325 MG TABLET DR BY MOUTH ×2 (10:23→17:27)
[2024-01-16] MEDS: FUROSEMIDE 40 MG TABLET PO (10:24)
[2024-01-16] MEDS: LACTULOSE 20 GM/30 ML UDC PO (10:24)
[2024-01-16] MEDS: PROPRANOLOL HCL 10 MG TABLET PO ×2 (10:24→20:12)
[2024-01-16] MEDS: FLUTICASONE PROPIONATE 0.05% NA SPR 16 GM BTL (*BKC) 2 SPRAY NASAL (10:24)
[2024-01-16] MEDS: lisinopriL 10 MG TABLET 30 MG PO (10:34)
[2024-01-16 12:58] LABS: Glucose Point of Care 225 mg/dl (65-105)
[2024-01-16] MEDS: INSULIN ASPART (*BKC) 100 UNITS/ML SUB-Q ×2 (13:07→20:03)
--- NOTE | 2024-01-16 15:58 | WPDGIPROGNO ---
Progress Note: A&P Assessment and Plan (1) Acute on chronic anemia: Code(s): D64.9 - Anemia, unspecified Status: Acute Assessment and Plan: probably multifactorial from underlying lymphoma undergoing treatment, also cirrhosis, found erosive gastritis but no active bleeding just few days ago, no need to repeat scopes (2) Erosive gastritis: Code(s): K29.60 - Other gastritis without bleeding Status: Acute Assessment and Plan: ppi daily (3) Cirrhosis: Code(s): K74.60 - Unspecified cirrhosis of liver Status: Acute Assessment and Plan: ? mathur hepatitis negative had paracentesis, on 2g na diet and diuretics if renal function allows (4) Type 2 diabetes mellitus with hyperglycemia, without long-term current use of insulin: Code(s): E11.65 - Type 2 diabetes mellitus with hyperglycemia Status: Acute (5) Follicular lymphoma: Code(s): C82.90 - Follicular lymphoma, unspecified, unspecified site Status: Acute Assessment and Plan: this also can explain anemia (6) Ascites: Code(s): R18.8 - Other ascites Status: Acute Assessment and Plan: s/p paracentesis on low dose diuretics (7) Esophageal varices: Code(s): I85.00 - Esophageal varices without bleeding Status: Acute Assessment and Plan: small size (8) Pancytopenia: Code(s): D61.818 - Other pancytopenia Status: Acute Assessment and Plan: from lymphoma, also cirrhosis can play a factor (9) COVID: Code(s): U07.1 - COVID-19 Status: Acute Assessment and Plan: on treatment (10) Type 2 diabetes mellitus with hyperglycemia: Code(s): E11.65 - Type 2 diabetes mellitus with hyperglycemia Status: Acute (11) Hepatic encephalopathy: Code(s): K76.82 - Hepatic encephalopathy Status: Acute Assessment and Plan: started on treatment Subjective Date/time seen: 01/16/24 15:58 Interval history: had paracentesis 1.5L today, no new events Review of Systems Review of Systems: All systems reviewed & are unremarkable except as noted in HPI and below Exam Const: General: comfortable and no acute distress HENMT: Face/Nose/Sinus: Normal nares present Eyes: General: appearance normal, both eyes and all related structures Neck: Neck: no JVD Resp: Auscultation: clear to auscultation bilaterally Cardio: Rate: regular rate Rhythm: regular rhythm Heart sounds: Murmur heart sound present GI: Inspection: non-distended GI Palp: No abdominal tenderness, Yes Firmness to palpation present (GI), No Hernia present, No Palpable mass present and Yes Ascites present (with bulging flanks) Percussion: Yes dullness to percussion Auscultation: Hypoactive bowel sounds present Skin: Other: pallor Neuro: General: gait normal Speech: normal speech Motor exam (neuro): No Asterixis during motor activity present Extrem: General: normal to inspection, no edema and no pedal edema Psych: Mental Status: mental status grossly normal Objective Data Vital Signs Vital Signs: Vital Signs - 24 hr 01/15/24 16:00 01/15/24 16:04 01/15/24 16:00 Temperature 98 F 98 F Pulse Rate 74 72 73 Respiratory Rate 18 18 Blood Pressure 131/53 L 131/53 L Pulse Oximetry 100 100 Oxygen Delivery 01/15/24 16:00 01/15/24 16:04 01/15/24 18:00 Temperature 98 F Pulse Rate 72 72 76 Respiratory Rate 18 18 Blood Pressure 131/53 L Pulse Oximetry 100 100 Oxygen Delivery Room Air 01/15/24 19:09 01/15/24 20:00 01/15/24 23:06 Temperature 98 F Pulse Rate 77 77 96 Respiratory Rate 18 18 Blood Pressure 128/51 L Pulse Oximetry 99 99 Oxygen Delivery Room Air 01/15/24 20:00 01/15/24 22:00 01/15/24 23:28 Temperature 97.6 F Pulse Rate 79 75 74 Respiratory Rate 18 Blood Pressure 129/45 L Pulse Oximetry 97 Oxygen Delivery 01/16/24 00:00 01/16/24 00:00 01/16/24 02:00
[2024-01-16 16:41] LABS: Source Peritoneal Fluid Peritoneal Fluid
[2024-01-16 16:42] LABS: Appearance Peritoneal Fluid Hazy (Clear); Color Peritoneal Fluid Yellow (Colorless); Lymphocytes Peritoneal Fluid 27 %; Neutrophils Peritoneal Fluid 2 % (0-25); Nucleated Cells Peritoneal Flu 125 /uL (0-500)
[2024-01-16 16:43] LABS: Macrophages Peritoneal Fluid 2 %; Mesothelial Cells Peritoneal Fluid 6 %; Monocytes Peritoneal Fluid 63 %
--- NOTE | 2024-01-16 18:01 | PM.IMPN ---
Progress Note: A&P Assessment and Plan (1) Type 2 diabetes mellitus with hyperglycemia: Code(s): E11.65 - Type 2 diabetes mellitus with hyperglycemia Status: Acute (2) Hyponatremia: Code(s): E87.1 - Hypo-osmolality and hyponatremia Status: Acute (3) Lactic acidosis: Code(s): E87.20 - Acidosis, unspecified Status: Acute (4) Profound anemia: Code(s): D64.9 - Anemia, unspecified Status: Acute (5) COVID: Code(s): U07.1 - COVID-19 Status: Acute (6) Chronic obstructive pulmonary disease: Code(s): J44.9 - Chronic obstructive pulmonary disease, unspecified Status: Acute (7) Iron deficiency anemia: Code(s): D50.9 - Iron deficiency anemia, unspecified Status: Acute (8) Gastroesophageal reflux disease: Code(s): K21.9 - Gastro-esophageal reflux disease without esophagitis Status: Acute (9) Paroxysmal atrial fibrillation: Code(s): I48.0 - Paroxysmal atrial fibrillation Status: Acute (10) Hepatic encephalopathy: Code(s): K76.82 - Hepatic encephalopathy Status: Acute (11) Cirrhosis of liver with ascites: Code(s): K74.60 - Unspecified cirrhosis of liver; R18.8 - Other ascites Status: Acute (12) COVID-19: Code(s): U07.1 - COVID-19 Status: Acute (13) Encephalopathy acute: Code(s): G93.40 - Encephalopathy, unspecified Status: Acute (14) Esophageal varices: Code(s): I85.00 - Esophageal varices without bleeding Status: Acute (15) Ascites: Code(s): R18.8 - Other ascites Status: Acute (16) Cirrhosis: Code(s): K74.60 - Unspecified cirrhosis of liver Status: Acute (17) Erosive gastritis: Code(s): K29.60 - Other gastritis without bleeding Status: Acute (18) Acute on chronic anemia: Code(s): D64.9 - Anemia, unspecified Status: Acute (19) Type 2 diabetes mellitus with hyperglycemia, without long-term current use of insulin: Code(s): E11.65 - Type 2 diabetes mellitus with hyperglycemia Status: Acute (20) Anemia requiring transfusions: Code(s): D64.9 - Anemia, unspecified Status: Acute (21) Fecal occult blood test positive: Code(s): R19.5 - Other fecal abnormalities Status: Acute (22) Normocytic anemia: Code(s): D64.9 - Anemia, unspecified Status: Acute (23) Pancytopenia: Code(s): D61.818 - Other pancytopenia Status: Acute (24) Non Hodgkin's lymphoma: Code(s): C85.90 - Non-Hodgkin lymphoma, unspecified, unspecified site Status: Acute (25) Follicular lymphoma: Code(s): C82.90 - Follicular lymphoma, unspecified, unspecified site Status: Acute (26) Other dietary vitamin B12 deficiency anemia: Code(s): D51.3 - Other dietary vitamin B12 deficiency anemia Status: Acute (27) Anemia, unspecified: Code(s): D64.9 - Anemia, unspecified Status: Acute Plan Admit patient to medical unit under full inpatient status COVID-19 isolation precautions Patient is clinically stable and not requiring oxygen hence do not qualify for dexamethasone IV remdesivir ordered for 5 days as per COVID-19 treatment protocol Patient started on supplemental treatment with daily multivitamin, zinc, vitamin-C and vitamin-D Consider close monitoring of D-dimer and CRP as COVID-19 monitoring markers as needed Lactic acid was 6.8 on admission which has now resolved Patient undergoing paracentesis today PT OT evaluation and treatment to be considered once patient is more stable His hemoglobin was low at 6.7 Continue to hold apixaban given profound anemia and Hemoccult-positive stool GI and oncology evaluation ordered for management and further treatment recommendations His long-term prognosis remains guarded ? Patient seen and examined at bedside during my morning rounds ? Collaborated with patient's nurse at the bedside in ri
--- NOTE | 2024-01-16 18:12 | PC.NURSE ---
This patient, Estuardo Renae, was transferred to [[facility] [place] ] on 01/16/24 at 1758. Personal belongings sent with patient. Report given to [lincoln ]. Appropriate documentation sent with patient. called and told her new room
[2024-01-16] MEDS: SIMVASTATIN 20 MG TABLET PO (20:12)
[2024-01-16 20:52] LABS: Glucose Point of Care 313 mg/dl (65-105)
[2024-01-16] MEDS: REMDESIVIR 100 MG/NS 250 ML 100 MG/250 ML BAG 250 MG IVPB (21:39)
[2024-01-17] VITALS (7 sets, daily range): BP systolic 92–125; BP diastolic 44–55; PULSE 59–61; RESP 16–18; TEMP 36.3–37; O2SAT 92–100
[2024-01-17 06:09] LABS: Glucose Point of Care 157 mg/dl (65-105)
[2024-01-17] MEDS: CENTRAL LINE FLUSH 10 ML IV PUSH ×3 (06:09→21:14)
[2024-01-17] MEDS: CIPROFLOXACIN 400 MG/D5W 200ML 200 ML 200 MG IVPB ×2 (06:09→17:08)
[2024-01-17 06:17] LABS: RBC Peritoneal Fluid < 2000 /uL (0-100000)
[2024-01-17 06:30] LABS: Basophils Percent Auto 0.4 % (0.2-1.2); Eosinophils Absolute Auto 0.1 K/mm3 (0-0.3); Hematocrit 27.7 % (42.0-52.0); Hemoglobin 8.5 g/dL (14.0-18.0); Immature Granulocyte Absolute 0.01 K/mm3 (0.00-0.031); Immature Granulocyte Percent A 0.4 % (0-0.5); Immature Platelet Fraction Pct 4.4 % (0.9-11.2); Lymphocytes Absolute Auto 0.26 K/mm3 (0.9-3.2); Lymphocytes Percent Auto 11.5 % (18.3-44.2); Mean Corpuscular HGB Conc 30.7 g/dl (32-36); Mean Corpuscular Hemoglobin 29.7 pg (26-34); Mean Corpuscular Volume 96.9 fl (80-100); Mean Platelet Volume 11.3 fl (7.4-10.4); Monocytes Absolute Auto 0.3 K/mm3 (0.1-0.6); Monocytes Percent Auto 14.6 % (2.6-8.5); Neutrophils Absolute Auto 1.6 K/mm3 (1.3-6.7); Neutrophils Percent Auto 69.1 % (45.5-73.1); Platelet Count Result 93 k/mm3 (150-375); Red Blood Count 2.86 M/mm3 (4.6-6.20); Red Cell Distribution Width 19.7 % (11.5-14.5); White Blood Count 2.3 K/mm3 (4.5-10.0)
[2024-01-17 06:36] LABS: Anion Gap 0 mmol/L (8-16); Blood Urea Nitrogen 20 mg/dL (9-20); Calcium 8.4 mg/dL (8.4-10.2); Carbon Dioxide 29 mmol/L (22-30); Chloride 105 mmol/L (98-107); Estimated CRCL calculation 55 ml/min; Estimated Glomerular Filt Rate > 60; Glucose 161 mg/dL (65-110); Phosphorus 3.4 mg/dL (2.5-4.5); Potassium 3.5 mmol/L (3.4-5.0); Sodium 134 mmol/L (137-145)
[2024-01-17 06:43] LABS: Iron 22 ug/dL (49-181)
[2024-01-17 06:53] LABS: Percent Iron Saturation 8 % (20-50)
[2024-01-17 07:25] LABS: Macrocytosis 1+ (NORMAL); Ovalocytes 1+; Platelet Estimate Slightly Decreased (Adequate); Polychromasia 1+; Schistocytes None Seen
[2024-01-17 07:46] LABS: Folic Acid 12.9 ng/mL (2.76->20); Vitamin B12 > 1000.0 pg/mL (239-931)
[2024-01-17 08:33] LABS: Glucose Point of Care 170 mg/dl (65-105)
[2024-01-17] MEDS: IRON SUCROSE COMPLEX 300 MG in SODIUM CHLORIDE 0.9% IV 250 ML 177 MG IVPB (09:16)
[2024-01-17] MEDS: rifAXIMin 550 MG TABLET PO ×2 (09:16→21:13)
[2024-01-17] MEDS: CYANOCOBALAMIN 1,000 MCG TABLET 1000 MCG PO (09:17)
[2024-01-17] MEDS: SPIRONOLACTONE 50 MG TABLET 100 MG PO (09:17)
[2024-01-17] MEDS: lisinopriL 10 MG TABLET 30 MG PO (09:17)
[2024-01-17] MEDS: ACYCLOVIR 400 MG TABLET PO ×2 (09:17→21:13)
[2024-01-17] MEDS: EMPAGLIFLOZIN 25 MG TABLET PO (09:17)
[2024-01-17] MEDS: SUCRALFATE 1 GM TABLET PO ×4 (09:18→21:13)
[2024-01-17] MEDS: PROPRANOLOL HCL 10 MG TABLET PO ×2 (09:18→21:13)
[2024-01-17] MEDS: CHOLECALCIFEROL 1,000 UNITS TABLET 1000 UNITS PO (09:18)
[2024-01-17] MEDS: PANTOPRAZOLE 40 MG TABLET PO ×2 (09:18→17:09)
[2024-01-17] MEDS: FLUTICASONE PROPIONATE 0.05% NA SPR 16 GM BTL (*BKC) 2 SPRAY NASAL (09:19)
[2024-01-17] MEDS: FUROSEMIDE 40 MG TABLET PO (09:23)
[2024-01-17] MEDS: LACTULOSE 20 GM/30 ML UDC PO (09:23)
[2024-01-17 12:12] LABS: Glucose Point of Care 228 mg/dl (65-105)
[2024-01-17] MEDS: INSULIN ASPART (*BKC) 100 UNITS/ML SUB-Q ×3 (12:19→21:18)
[2024-01-17 15:35] LABS: Osmolality, Urine 646 mOsm/kg (50-1200)
--- NOTE | 2024-01-17 16:30 | PM.IMPN ---
Progress Note: A&P Assessment and Plan (1) Type 2 diabetes mellitus with hyperglycemia: Code(s): E11.65 - Type 2 diabetes mellitus with hyperglycemia Status: Acute (2) Hyponatremia: Code(s): E87.1 - Hypo-osmolality and hyponatremia Status: Acute (3) Lactic acidosis: Code(s): E87.20 - Acidosis, unspecified Status: Acute (4) Profound anemia: Code(s): D64.9 - Anemia, unspecified Status: Acute (5) COVID: Code(s): U07.1 - COVID-19 Status: Acute (6) Chronic obstructive pulmonary disease: Code(s): J44.9 - Chronic obstructive pulmonary disease, unspecified Status: Acute (7) Iron deficiency anemia: Code(s): D50.9 - Iron deficiency anemia, unspecified Status: Acute (8) Gastroesophageal reflux disease: Code(s): K21.9 - Gastro-esophageal reflux disease without esophagitis Status: Acute (9) Paroxysmal atrial fibrillation: Code(s): I48.0 - Paroxysmal atrial fibrillation Status: Acute (10) Hepatic encephalopathy: Code(s): K76.82 - Hepatic encephalopathy Status: Acute (11) Cirrhosis of liver with ascites: Code(s): K74.60 - Unspecified cirrhosis of liver; R18.8 - Other ascites Status: Acute (12) COVID-19: Code(s): U07.1 - COVID-19 Status: Acute (13) Encephalopathy acute: Code(s): G93.40 - Encephalopathy, unspecified Status: Acute (14) Esophageal varices: Code(s): I85.00 - Esophageal varices without bleeding Status: Acute (15) Ascites: Code(s): R18.8 - Other ascites Status: Acute (16) Cirrhosis: Code(s): K74.60 - Unspecified cirrhosis of liver Status: Acute (17) Erosive gastritis: Code(s): K29.60 - Other gastritis without bleeding Status: Acute (18) Acute on chronic anemia: Code(s): D64.9 - Anemia, unspecified Status: Acute (19) Type 2 diabetes mellitus with hyperglycemia, without long-term current use of insulin: Code(s): E11.65 - Type 2 diabetes mellitus with hyperglycemia Status: Acute (20) Anemia requiring transfusions: Code(s): D64.9 - Anemia, unspecified Status: Acute (21) Fecal occult blood test positive: Code(s): R19.5 - Other fecal abnormalities Status: Acute (22) Normocytic anemia: Code(s): D64.9 - Anemia, unspecified Status: Acute (23) Pancytopenia: Code(s): D61.818 - Other pancytopenia Status: Acute (24) Non Hodgkin's lymphoma: Code(s): C85.90 - Non-Hodgkin lymphoma, unspecified, unspecified site Status: Acute (25) Follicular lymphoma: Code(s): C82.90 - Follicular lymphoma, unspecified, unspecified site Status: Acute (26) Other dietary vitamin B12 deficiency anemia: Code(s): D51.3 - Other dietary vitamin B12 deficiency anemia Status: Acute Plan Admit patient to medical unit under full inpatient status COVID-19 isolation precautions Patient is clinically stable and not requiring oxygen hence do not qualify for dexamethasone IV remdesivir ordered for 5 days as per COVID-19 treatment protocol Patient started on supplemental treatment with daily multivitamin, zinc, vitamin-C and vitamin-D Consider close monitoring of D-dimer and CRP as COVID-19 monitoring markers as needed Lactic acid was 6.8 on admission which has now resolved Patient underwent ultrasound-guided paracenteses yesterday with drainage of 1550 mL of clear yellow fluid He feels better after paracentesis Continue with oral Lasix and spironolactone for diuresis Strict input and output monitoring PT OT evaluation and treatment to be considered once patient is more stable His hemoglobin was low at 6.7 Iron profile was done which showed iron deficiency with iron level of 22 and iron saturation of 8% which were both severely decreased Patient ordered IV Venofer 300 mg daily for 3 doses Continue to hold apixaban given profound
[2024-01-17 16:54] LABS: Glucose Point of Care 259 mg/dl (65-105)
--- NOTE | 2024-01-17 17:04 | WPDGIPROGNO ---
Progress Note: A&P Assessment and Plan (1) Acute on chronic anemia: Code(s): D64.9 - Anemia, unspecified Status: Acute Assessment and Plan: probably multifactorial from underlying lymphoma undergoing treatment, also cirrhosis, found erosive gastritis but no active bleeding just few days ago, also had colonoscopy with few polyps removed no need to repeat scopes will follow as needed (2) Erosive gastritis: Code(s): K29.60 - Other gastritis without bleeding Status: Acute Assessment and Plan: ppi daily (3) Cirrhosis: Code(s): K74.60 - Unspecified cirrhosis of liver Status: Acute Assessment and Plan: ? mathur hepatitis negative had paracentesis, on 2g na diet also lasix 40mg/aldactone 100mg daily he can follow-up in office in 4-6 weeks after discharge (4) Type 2 diabetes mellitus with hyperglycemia, without long-term current use of insulin: Code(s): E11.65 - Type 2 diabetes mellitus with hyperglycemia Status: Acute (5) Follicular lymphoma: Code(s): C82.90 - Follicular lymphoma, unspecified, unspecified site Status: Acute Assessment and Plan: this also can explain anemia (6) Ascites: Code(s): R18.8 - Other ascites Status: Acute Assessment and Plan: s/p paracentesis on low dose diuretics (7) Esophageal varices: Code(s): I85.00 - Esophageal varices without bleeding Status: Acute Assessment and Plan: small size (8) Pancytopenia: Code(s): D61.818 - Other pancytopenia Status: Acute Assessment and Plan: from lymphoma, also cirrhosis can play a factor (9) COVID: Code(s): U07.1 - COVID-19 Status: Acute Assessment and Plan: on treatment (10) Hepatic encephalopathy: Code(s): K76.82 - Hepatic encephalopathy Status: Acute Assessment and Plan: started on treatment Subjective Date/time seen: 01/17/24 17:04 Interval history: no new issues, he is comfortable still on isolation because of covid Review of Systems Review of Systems: All systems reviewed & are unremarkable except as noted in HPI and below Exam Const: General: comfortable and no acute distress HENMT: Face/Nose/Sinus: Normal nares present Eyes: General: appearance normal, both eyes and all related structures Neck: Neck: no JVD Resp: Auscultation: clear to auscultation bilaterally Cardio: Rate: regular rate Rhythm: regular rhythm Heart sounds: Murmur heart sound present GI: Inspection: non-distended GI Palp: No abdominal tenderness and No Guarding due to palpation present (GI) Percussion: Yes dullness to percussion Skin: General skin exam: normal color Other: pallor Neuro: General: gait normal Speech: normal speech Motor exam (neuro): No Asterixis during motor activity present Extrem: General: normal to inspection, no edema and no pedal edema Psych: Mental Status: mental status grossly normal Objective Data Vital Signs Vital Signs: Vital Signs - 24 hr 01/16/24 18:08 01/16/24 20:12 01/16/24 20:15 Temperature 97.8 F 97.7 F Pulse Rate 70 75 73 Respiratory Rate 16 16 Blood Pressure 104/46 L 92/44 L Pulse Oximetry 99 99 Oxygen Delivery 01/16/24 20:00 01/16/24 20:00 01/17/24 00:00 Temperature Pulse Rate Respiratory Rate Blood Pressure 92/44 L 92/44 L Pulse Oximetry Oxygen Delivery Room Air 01/17/24 04:00 01/16/24 23:35 01/17/24 05:50 Temperature 98.6 F Pulse Rate 61 Respiratory Rate 16 Blood Pressure 92/44 L 125/55 L Pulse Oximetry 98 100 Oxygen Delivery Room Air 01/17/24 09:18 01/17/24 08:00 01/17/24 14:58 Temperature 97.4 F L Pulse Rate 60 61 Respiratory Rate 16 Blood Pressure 101/51 L Pulse Oximetry 98 Oxygen Delivery Room Air Intake/Output Intake/Output: Intake & Output 01/14/24 01/15/24 01/16/24 01/17/24 23:59 23:59 23:59 23:59 Intake Total 1490 650 1
[2024-01-17 21:02] LABS: Glucose Point of Care 217 mg/dl (65-105)
[2024-01-17] MEDS: SIMVASTATIN 20 MG TABLET PO (21:13)
[2024-01-17] MEDS: REMDESIVIR 100 MG/NS 250 ML 100 MG/250 ML BAG 250 MG IVPB (21:17)
[2024-01-18 04:09] VITALS: BP 103/48; PULSE 60; RESP 18; TEMP 36; O2SAT 95
[2024-01-18] MEDS: CIPROFLOXACIN 400 MG/D5W 200ML 200 ML 200 MG IVPB (05:30)
[2024-01-18] MEDS: CENTRAL LINE FLUSH 10 ML IV PUSH ×3 (05:34→21:09)
[2024-01-18 06:11] LABS: Basophils Percent Auto 0.5 % (0.2-1.2); Eosinophils Absolute Auto 0.1 K/mm3 (0-0.3); Eosinophils Percent Auto 4.5 % (0-4.4); Hematocrit 26.8 % (42.0-52.0); Hemoglobin 8.3 g/dL (14.0-18.0); Immature Granulocyte Absolute 0.01 K/mm3 (0.00-0.031); Immature Granulocyte Percent A 0.5 % (0-0.5); Immature Platelet Fraction Pct 4.3 % (0.9-11.2); Lymphocytes Absolute Auto 0.22 K/mm3 (0.9-3.2); Lymphocytes Percent Auto 10.9 % (18.3-44.2); Mean Corpuscular Hemoglobin 30.1 pg (26-34); Mean Corpuscular Volume 97.1 fl (80-100); Mean Platelet Volume 11.5 fl (7.4-10.4); Monocytes Absolute Auto 0.4 K/mm3 (0.1-0.6); Monocytes Percent Auto 17.4 % (2.6-8.5); Neutrophils Absolute Auto 1.3 K/mm3 (1.3-6.7); Neutrophils Percent Auto 66.2 % (45.5-73.1); Platelet Count Result 91 k/mm3 (150-375); Red Blood Count 2.76 M/mm3 (4.6-6.20); Red Cell Distribution Width 19.3 % (11.5-14.5)
[2024-01-18 06:16] LABS: INR 1.4; Prothrombin Time 17.9 Seconds (11.1-14.7)
[2024-01-18 06:22] LABS: Alanine Aminotransferase 28 U/L (6-50); Albumin Level 2.2 g/dL (3.5-5.1); Alkaline Phosphatase 116 U/L (38-126); Aspartate Amino Transferase 33 U/L (17-59); Bilirubin,Total 0.6 mg/dL (0.2-1.3)
[2024-01-18 06:24] LABS: Anion Gap -1 mmol/L (8-16); Blood Urea Nitrogen 15 mg/dL (9-20); Calcium 8.3 mg/dL (8.4-10.2); Carbon Dioxide 29 mmol/L (22-30); Chloride 102 mmol/L (98-107); Estimated CRCL calculation 55 ml/min; Estimated Glomerular Filt Rate > 60; Glucose 154 mg/dL (65-110); Potassium 3.4 mmol/L (3.4-5.0); Sodium 130 mmol/L (137-145)
[2024-01-18 08:11] LABS: Glucose Point of Care 174 mg/dl (65-105)
[2024-01-18] MEDS: ACYCLOVIR 400 MG TABLET PO ×2 (09:27→21:07)
[2024-01-18] MEDS: POTASSIUM CHLORIDE 20 MEQ ER TABLET 40 MEQ PO (09:27)
[2024-01-18] MEDS: CYANOCOBALAMIN 1,000 MCG TABLET 1000 MCG PO (09:28)
[2024-01-18] MEDS: rifAXIMin 550 MG TABLET PO ×2 (09:28→21:07)
[2024-01-18] MEDS: EMPAGLIFLOZIN 25 MG TABLET PO (09:28)
[2024-01-18] MEDS: SUCRALFATE 1 GM TABLET PO ×4 (09:28→21:07)
[2024-01-18] MEDS: LACTULOSE 20 GM/30 ML UDC PO (09:29)
[2024-01-18] MEDS: FLUTICASONE PROPIONATE 0.05% NA SPR 16 GM BTL (*BKC) 2 SPRAY NASAL (09:29)
[2024-01-18] MEDS: IRON SUCROSE COMPLEX 300 MG in SODIUM CHLORIDE 0.9% IV 250 ML 177 MG IVPB (09:29)
[2024-01-18] MEDS: PANTOPRAZOLE 40 MG TABLET PO ×2 (09:29→17:14)
--- NOTE | 2024-01-18 10:09 | PDONCCN ---
HPI - Date of Consult Date/Time: 01/18/24 16:41 <Anish Perez - 01/18/24 16:44> 01/18/24 10:09 <Lisbet Florez - 01/18/24 10:15> Requesting Physician: Chris Ramirez MD <Anish Perez - 01/18/24 16:44> Chris Ramirez MD <Lisbet Florez - 01/18/24 10:15> Primary Care Provider: Moses Conn, <Anish Perez - 01/18/24 16:44> Moses Conn, <Lisbet Florez - 01/18/24 10:15> - Consult Narrative Reason for consult: Pancytopenia <Lisbet Florez - 01/18/24 10:15> Narrative: Estuardo Renae is a 78 year old male <Anish Perez - 01/18/24 16:44> Estuardo Renae is a 78 year old male with a past medical history of liver cirrhosis, vit B12/anemia deficiency, gastritis, anemia, and 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 He completed radiation therapy in Oct 2023 and his maintenance chemotherapy was not approved by insurance. We last saw Estuardo in office 12/27/23 and reported he went to the hospital earlier in Dec and received 2 units of PRBC for a low hemoglobin and was sent home. He was recently admitted again for low hemoglobin and GI was consulted and found gastritis and varices on EGD and polys and hemorrhoid on colonoscopy. He has been dealing with multifactorial anemia for awhile secondary to lymphoma vs blood loss vs iron deficiency. He has now received 2 iron infusions while hospitalized and PRBC. He has known liver cirrhosis as well as gastritis and Sánchez's esophagus. Labs today are notable for Hgb 8.3, WBC 2., Plt 91,000 which are consistent with his recent trend in labs. He reports feeling better overall. He declines any weakness, fatigue, shortness of breath, cough, fever or chills. <Lisbet Florez - 01/18/24 10:23> Review of Systems - Review of Systems All systems reviewed & are unremarkable except as noted in HPI and bel <GautamLisbet - 01/18/24 10:23> - Neurologic Reports hearing normal, Denies headache(s), Denies weakness <GautamLisbet 01/18/24 10:15> [facility] Medical History: Medical History (Last Reviewed 01/15/24 @ 21:20 by Bethanie Freeman PA-C) B12 deficiency Cardiac defibrillator in place Onset Date: ~2020 Chronic obstructive pulmonary disease Cirrhosis Erosive gastritis Esophageal varices Gastroesophageal reflux disease Hearing loss Hepatitis Hyperlipidemia Iron deficiency anemia Non-Hodgkin lymphoma Onset Date: 02/2023 Follicular lymphoma; 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 Paroxysmal atrial fibrillation Skin cancer Type 2 diabetes mellitus <Lisbet Florez 01/18/24 10:15> Surgical History: Surgical History (Last Reviewed 01/15/24 @ 21:20 by Bethanie Freeman PA-C) History of automatic internal cardiac defibrillator (AICD) Onset Date: 2020 History of cataract extraction with lens replacement History of fusion of cervical spine History of permanent cardiac pacemaker placement Onset Date: 2020 <Anish Perez - 01/18/24 16:44> Surgical History (Last Reviewed 01/15/24 @ 21:20 by Bethanie Freeman PA-C) History of automatic internal cardiac defibrillator (AICD) Onset Date: 2020 History of cataract extraction with lens replacement History of fusion of cervical spine History of permanent cardiac pacemaker placement Onset Date: 2020 <Lisbet Florez - 01/18/24 10:15> Family History: Family History (Last Reviewed 01/15/24 @ 21:20 by
[2024-01-18 11:10] LABS: Glucose Point of Care 242 mg/dl (65-105)
[2024-01-18 11:21] VITALS: BP 107/52
[2024-01-18] MEDS: CHOLECALCIFEROL 1,000 UNITS TABLET 1000 UNITS PO (11:21)
[2024-01-18 12:07] LABS: Glucose Point of Care 257 mg/dl (65-105)
[2024-01-18] MEDS: INSULIN ASPART (*BKC) 100 UNITS/ML SUB-Q ×3 (12:40→21:10)
[2024-01-18 14:00] VITALS: BP 109/54; PULSE 64; RESP 18; TEMP 36.7; O2SAT 98
[2024-01-18 16:58] LABS: Glucose Point of Care 208 mg/dl (65-105)
--- NOTE | 2024-01-18 17:11 | P.PNIM_ITS ---
Progress Note: A&P Assessment and Plan (1) Type 2 diabetes mellitus with hyperglycemia: Code(s): E11.65 - Type 2 diabetes mellitus with hyperglycemia Status: Acute (2) Hyponatremia: Code(s): E87.1 - Hypo-osmolality and hyponatremia Status: Acute (3) Lactic acidosis: Code(s): E87.20 - Acidosis, unspecified Status: Acute (4) Profound anemia: Code(s): D64.9 - Anemia, unspecified Status: Acute (5) COVID: Code(s): U07.1 - COVID-19 Status: Acute (6) Chronic obstructive pulmonary disease: Code(s): J44.9 - Chronic obstructive pulmonary disease, unspecified Status: Acute (7) Iron deficiency anemia: Code(s): D50.9 - Iron deficiency anemia, unspecified Status: Acute (8) Gastroesophageal reflux disease: Code(s): K21.9 - Gastro-esophageal reflux disease without esophagitis Status: Acute (9) Paroxysmal atrial fibrillation: Code(s): I48.0 - Paroxysmal atrial fibrillation Status: Acute (10) Hepatic encephalopathy: Code(s): K76.82 - Hepatic encephalopathy Status: Acute (11) Cirrhosis of liver with ascites: Code(s): K74.60 - Unspecified cirrhosis of liver; R18.8 - Other ascites Status: Acute (12) COVID-19: Code(s): U07.1 - COVID-19 Status: Acute (13) Encephalopathy acute: Code(s): G93.40 - Encephalopathy, unspecified Status: Acute (14) Esophageal varices: Code(s): I85.00 - Esophageal varices without bleeding Status: Acute (15) Ascites: Code(s): R18.8 - Other ascites Status: Acute (16) Cirrhosis: Code(s): K74.60 - Unspecified cirrhosis of liver Status: Acute (17) Erosive gastritis: Code(s): K29.60 - Other gastritis without bleeding Status: Acute (18) Acute on chronic anemia: Code(s): D64.9 - Anemia, unspecified Status: Acute (19) Type 2 diabetes mellitus with hyperglycemia, without long-term current use of insulin: Code(s): E11.65 - Type 2 diabetes mellitus with hyperglycemia Status: Acute (20) Anemia requiring transfusions: Code(s): D64.9 - Anemia, unspecified Status: Acute (21) Fecal occult blood test positive: Code(s): R19.5 - Other fecal abnormalities Status: Acute (22) Normocytic anemia: Code(s): D64.9 - Anemia, unspecified Status: Acute (23) Pancytopenia: Code(s): D61.818 - Other pancytopenia Status: Acute (24) Non Hodgkin's lymphoma: Code(s): C85.90 - Non-Hodgkin lymphoma, unspecified, unspecified site Status: Acute (25) Follicular lymphoma: Code(s): C82.90 - Follicular lymphoma, unspecified, unspecified site Status: Acute (26) Other dietary vitamin B12 deficiency anemia: Code(s): D51.3 - Other dietary vitamin B12 deficiency anemia Status: Acute Plan Admit patient to medical unit under full inpatient status COVID-19 isolation precautions Patient is clinically stable and not requiring oxygen hence do not qualify for dexamethasone IV remdesivir ordered for 5 days as per COVID-19 treatment protocol Patient started on supplemental treatment with daily multivitamin, zinc, vitamin-C and vitamin-D Consider close monitoring of D-dimer and CRP as COVID-19 monitoring markers as needed Lactic acid was 6.8 on admission which has now resolved Patient underwent ultrasound-guided paracenteses yesterday with drainage of 1550 mL of clear y
[2024-01-18 19:57] LABS: Glucose Point of Care 224 mg/dl (65-105)
[2024-01-18 20:12] VITALS: BP 132/59; PULSE 67; RESP 18; TEMP 36.8; O2SAT 96
[2024-01-18] MEDS: REMDESIVIR 100 MG/NS 250 ML 100 MG/250 ML BAG 250 MG IVPB (21:05)
[2024-01-18] MEDS: SIMVASTATIN 20 MG TABLET PO (21:07)
[2024-01-19] MEDS: CENTRAL LINE FLUSH 10 ML IV PUSH ×3 (05:11→20:53)
[2024-01-19 05:22] LABS: Eosinophils Absolute Auto 0.1 K/mm3 (0-0.3); Eosinophils Percent Auto 4.4 % (0-4.4); Hematocrit 27.6 % (42.0-52.0); Hemoglobin 8.9 g/dL (14.0-18.0); Immature Granulocyte Absolute 0.03 K/mm3 (0.00-0.031); Immature Granulocyte Percent A 1.3 % (0-0.5); Immature Platelet Fraction Pct 4.4 % (0.9-11.2); Lymphocytes Absolute Auto 0.24 K/mm3 (0.9-3.2); Lymphocytes Percent Auto 10.5 % (18.3-44.2); Mean Corpuscular HGB Conc 32.2 g/dl (32-36); Mean Corpuscular Hemoglobin 31.1 pg (26-34); Mean Corpuscular Volume 96.5 fl (80-100); Mean Platelet Volume 10.9 fl (7.4-10.4); Monocytes Absolute Auto 0.3 K/mm3 (0.1-0.6); Monocytes Percent Auto 14.9 % (2.6-8.5); Neutrophils Absolute Auto 1.6 K/mm3 (1.3-6.7); Neutrophils Percent Auto 68.9 % (45.5-73.1); Platelet Count Result 93 k/mm3 (150-375); Red Blood Count 2.86 M/mm3 (4.6-6.20); Red Cell Distribution Width 19.6 % (11.5-14.5); White Blood Count 2.3 K/mm3 (4.5-10.0)
[2024-01-19 05:39] LABS: Anion Gap 1 mmol/L (8-16); Blood Urea Nitrogen 15 mg/dL (9-20); Calcium 8.4 mg/dL (8.4-10.2); Carbon Dioxide 24 mmol/L (22-30); Chloride 103 mmol/L (98-107); Estimated CRCL calculation 55 ml/min; Estimated Glomerular Filt Rate > 60; Glucose 147 mg/dL (65-110); Potassium 3.9 mmol/L (3.4-5.0); Sodium 128 mmol/L (137-145)
[2024-01-19 05:56] LABS: Platelet Estimate Slightly Decreased (Adequate)
[2024-01-19 05:57] LABS: Anisocytosis 1+; Schistocytes Rare
[2024-01-19 06:00] VITALS: BP 125/54; PULSE 70; RESP 18; TEMP 36.8; O2SAT 96
[2024-01-19 08:21] LABS: Glucose Point of Care 169 mg/dl (65-105)
[2024-01-19] MEDS: IRON SUCROSE COMPLEX 300 MG in SODIUM CHLORIDE 0.9% IV 250 ML 177 MG IVPB (09:17)
[2024-01-19] MEDS: FUROSEMIDE 20 MG TABLET PO (09:18)
[2024-01-19] MEDS: FLUTICASONE PROPIONATE 0.05% NA SPR 16 GM BTL (*BKC) 2 SPRAY NASAL (09:18)
[2024-01-19] MEDS: SPIRONOLACTONE 50 MG TABLET PO (09:20)
[2024-01-19] MEDS: lisinopriL 10 MG TABLET PO (09:20)
[2024-01-19 09:21] VITALS: PULSE 72
[2024-01-19] MEDS: PROPRANOLOL HCL 10 MG TABLET PO ×2 (09:21→20:53)
[2024-01-19] MEDS: rifAXIMin 550 MG TABLET PO ×2 (09:21→20:52)
[2024-01-19] MEDS: ACYCLOVIR 400 MG TABLET PO ×2 (09:21→20:52)
[2024-01-19] MEDS: PANTOPRAZOLE 40 MG TABLET PO ×2 (09:21→17:25)
[2024-01-19] MEDS: SUCRALFATE 1 GM TABLET PO ×4 (09:22→20:52)
[2024-01-19] MEDS: LACTULOSE 20 GM/30 ML UDC PO (09:23)
[2024-01-19] MEDS: CYANOCOBALAMIN 1,000 MCG TABLET 1000 MCG PO (09:23)
[2024-01-19] MEDS: EMPAGLIFLOZIN 25 MG TABLET PO (09:23)
[2024-01-19] MEDS: CHOLECALCIFEROL 1,000 UNITS TABLET 1000 UNITS PO (11:38)
[2024-01-19 12:05] LABS: Glucose Point of Care 196 mg/dl (65-105)
[2024-01-19 14:00] VITALS: BP 107/54; PULSE 60; RESP 20; O2SAT 98
--- NOTE | 2024-01-19 16:30 | PM.IMPN ---
Progress Note: A&P Assessment and Plan (1) Type 2 diabetes mellitus with hyperglycemia: Code(s): E11.65 - Type 2 diabetes mellitus with hyperglycemia Status: Acute (2) Hyponatremia: Code(s): E87.1 - Hypo-osmolality and hyponatremia Status: Acute (3) Lactic acidosis: Code(s): E87.20 - Acidosis, unspecified Status: Acute (4) Profound anemia: Code(s): D64.9 - Anemia, unspecified Status: Acute (5) COVID: Code(s): U07.1 - COVID-19 Status: Acute (6) Chronic obstructive pulmonary disease: Code(s): J44.9 - Chronic obstructive pulmonary disease, unspecified Status: Acute (7) Iron deficiency anemia: Code(s): D50.9 - Iron deficiency anemia, unspecified Status: Acute (8) Gastroesophageal reflux disease: Code(s): K21.9 - Gastro-esophageal reflux disease without esophagitis Status: Acute (9) Paroxysmal atrial fibrillation: Code(s): I48.0 - Paroxysmal atrial fibrillation Status: Acute (10) Hepatic encephalopathy: Code(s): K76.82 - Hepatic encephalopathy Status: Acute (11) Cirrhosis of liver with ascites: Code(s): K74.60 - Unspecified cirrhosis of liver; R18.8 - Other ascites Status: Acute (12) COVID-19: Code(s): U07.1 - COVID-19 Status: Acute (13) Encephalopathy acute: Code(s): G93.40 - Encephalopathy, unspecified Status: Acute (14) Esophageal varices: Code(s): I85.00 - Esophageal varices without bleeding Status: Acute (15) Ascites: Code(s): R18.8 - Other ascites Status: Acute (16) Cirrhosis: Code(s): K74.60 - Unspecified cirrhosis of liver Status: Acute (17) Erosive gastritis: Code(s): K29.60 - Other gastritis without bleeding Status: Acute (18) Acute on chronic anemia: Code(s): D64.9 - Anemia, unspecified Status: Acute (19) Type 2 diabetes mellitus with hyperglycemia, without long-term current use of insulin: Code(s): E11.65 - Type 2 diabetes mellitus with hyperglycemia Status: Acute (20) Anemia requiring transfusions: Code(s): D64.9 - Anemia, unspecified Status: Acute (21) Fecal occult blood test positive: Code(s): R19.5 - Other fecal abnormalities Status: Acute (22) Normocytic anemia: Code(s): D64.9 - Anemia, unspecified Status: Acute (23) Pancytopenia: Code(s): D61.818 - Other pancytopenia Status: Acute (24) Non Hodgkin's lymphoma: Code(s): C85.90 - Non-Hodgkin lymphoma, unspecified, unspecified site Status: Acute (25) Follicular lymphoma: Code(s): C82.90 - Follicular lymphoma, unspecified, unspecified site Status: Acute (26) Other dietary vitamin B12 deficiency anemia: Code(s): D51.3 - Other dietary vitamin B12 deficiency anemia Status: Acute Plan Admit patient to medical unit under full inpatient status COVID-19 isolation precautions Patient is clinically stable and not requiring oxygen hence do not qualify for dexamethasone IV remdesivir ordered for 5 days as per COVID-19 treatment protocol ... which will finish tonight by midnight Patient started on supplemental treatment with daily multivitamin, zinc, vitamin-C and vitamin-D Consider close monitoring of D-dimer and CRP as COVID-19 monitoring markers as needed Lactic acid was 6.8 on admission which has now resolved 01/16/2024: Patient underwent ultrasound-guided paracenteses with drainage of 1550 mL of clear yellow fluid He feels better after paracentesis Continue with oral Lasix and spironolactone for diuresis His systolic blood pressure around 100 hence his BP meds held yesterday Cut down on February, Lasix and spironolactone doses by half Continue with propranolol dose Monitor vitals closely with holding parameters for BP meds Strict input and output monitoring His hemoglobin was low at 6.7 hence received 2 unit of packed RBCs
[2024-01-19 17:25] LABS: Glucose Point of Care 211 mg/dl (65-105)
[2024-01-19] MEDS: INSULIN ASPART (*BKC) 100 UNITS/ML SUB-Q ×2 (17:26→20:53)
[2024-01-19 19:53] VITALS: BP 112/51; PULSE 66; RESP 18; TEMP 36.8; O2SAT 96
[2024-01-19 20:18] LABS: Glucose Point of Care 219 mg/dl (65-105)
[2024-01-19] MEDS: REMDESIVIR 100 MG/NS 250 ML 100 MG/250 ML BAG 250 MG IVPB (20:50)
[2024-01-19] MEDS: SIMVASTATIN 20 MG TABLET PO (20:52)
[2024-01-19 20:53] VITALS: PULSE 66
[2024-01-20] MEDS: CENTRAL LINE FLUSH 10 ML IV PUSH (05:14)
[2024-01-20 05:46] LABS: Basophils Percent Auto 0.4 % (0.2-1.2); Eosinophils Absolute Auto 0.1 K/mm3 (0-0.3); Eosinophils Percent Auto 5.6 % (0-4.4); Hematocrit 28.5 % (42.0-52.0); Immature Granulocyte Absolute 0.04 K/mm3 (0.00-0.031); Immature Granulocyte Percent A 1.6 % (0-0.5); Lymphocytes Absolute Auto 0.26 K/mm3 (0.9-3.2); Lymphocytes Percent Auto 10.5 % (18.3-44.2); Mean Corpuscular HGB Conc 31.6 g/dl (32-36); Mean Corpuscular Hemoglobin 30.5 pg (26-34); Mean Corpuscular Volume 96.6 fl (80-100); Mean Platelet Volume 11.4 fl (7.4-10.4); Monocytes Absolute Auto 0.4 K/mm3 (0.1-0.6); Monocytes Percent Auto 15.3 % (2.6-8.5); Neutrophils Absolute Auto 1.7 K/mm3 (1.3-6.7); Neutrophils Percent Auto 66.6 % (45.5-73.1); Platelet Count Result 106 k/mm3 (150-375); Red Blood Count 2.95 M/mm3 (4.6-6.20); White Blood Count 2.5 K/mm3 (4.5-10.0)
[2024-01-20 06:00] VITALS: BP 105/55; PULSE 60; RESP 18; TEMP 36.8; O2SAT 97
[2024-01-20 06:04] LABS: Anion Gap 0 mmol/L (8-16); Blood Urea Nitrogen 15 mg/dL (9-20); Calcium 8.3 mg/dL (8.4-10.2); Carbon Dioxide 25 mmol/L (22-30); Chloride 104 mmol/L (98-107); Estimated CRCL calculation 55 ml/min; Estimated Glomerular Filt Rate > 60; Glucose 131 mg/dL (65-110); Potassium 3.8 mmol/L (3.4-5.0); Sodium 129 mmol/L (137-145)
[2024-01-20 08:16] LABS: Glucose Point of Care 147 mg/dl (65-105)
[2024-01-20] MEDS: FLUTICASONE PROPIONATE 0.05% NA SPR 16 GM BTL (*BKC) 2 SPRAY NASAL (08:55)
[2024-01-20] MEDS: ACYCLOVIR 400 MG TABLET PO (08:56)
[2024-01-20] MEDS: FUROSEMIDE 20 MG TABLET PO (08:57)
[2024-01-20] MEDS: rifAXIMin 550 MG TABLET PO (08:57)
[2024-01-20] MEDS: CHOLECALCIFEROL 1,000 UNITS TABLET 1000 UNITS PO (08:59)
[2024-01-20] MEDS: EMPAGLIFLOZIN 25 MG TABLET PO (09:00)
[2024-01-20] MEDS: CYANOCOBALAMIN 1,000 MCG TABLET 1000 MCG PO (09:00)
[2024-01-20 09:01] VITALS: PULSE 60
[2024-01-20] MEDS: SPIRONOLACTONE 50 MG TABLET PO (09:01)
[2024-01-20] MEDS: SUCRALFATE 1 GM TABLET PO ×2 (09:01→13:41)
[2024-01-20] MEDS: PROPRANOLOL HCL 10 MG TABLET PO (09:01)
[2024-01-20] MEDS: LACTULOSE 20 GM/30 ML UDC PO (09:02)
[2024-01-20] MEDS: lisinopriL 10 MG TABLET PO (09:02)
[2024-01-20] MEDS: PANTOPRAZOLE 40 MG TABLET PO (09:02)
--- NOTE | 2024-01-20 12:00 | PM.DS ---
DS: Admitting Diagnosis Discharge Date 01/20/2024: Admitting Diagnosis (1) COVID: ?Code(s): U07.1 - COVID-19 ?Status:?Acute (2) Profound anemia: ?Code(s): D64.9 - Anemia, unspecified ?Status:?Acute (3) Lactic acidosis: ?Code(s): E87.20 - Acidosis, unspecified ?Status:?Acute (4) Cirrhosis of liver with ascites: ?Code(s): K74.60 - Unspecified cirrhosis of liver; R18.8 - Other ascites ?Status:?Acute (5) Hyponatremia: ?Code(s): E87.1 - Hypo-osmolality and hyponatremia ?Status:?Acute (6) Fecal occult blood test positive: ?Code(s): R19.5 - Other fecal abnormalities ?Status:?Acute (7) Paroxysmal atrial fibrillation: ?Code(s): I48.0 - Paroxysmal atrial fibrillation ?Status:?Acute (8) Type 2 diabetes mellitus with hyperglycemia: ?Code(s): E11.65 - Type 2 diabetes mellitus with hyperglycemia ?Status:?Acute DS: Discharge Diagnosis Discharge Diagnosis (1) Type 2 diabetes mellitus with hyperglycemia: Code(s): E11.65 - Type 2 diabetes mellitus with hyperglycemia Status: Acute (2) Hyponatremia: Code(s): E87.1 - Hypo-osmolality and hyponatremia Status: Acute (3) Lactic acidosis: Code(s): E87.20 - Acidosis, unspecified Status: Acute (4) Profound anemia: Code(s): D64.9 - Anemia, unspecified Status: Acute (5) Chronic obstructive pulmonary disease: Code(s): J44.9 - Chronic obstructive pulmonary disease, unspecified Status: Acute (6) Iron deficiency anemia: Code(s): D50.9 - Iron deficiency anemia, unspecified Status: Acute (7) Gastroesophageal reflux disease: Code(s): K21.9 - Gastro-esophageal reflux disease without esophagitis Status: Acute (8) Paroxysmal atrial fibrillation: Code(s): I48.0 - Paroxysmal atrial fibrillation Status: Acute (9) Cirrhosis of liver with ascites: Code(s): K74.60 - Unspecified cirrhosis of liver; R18.8 - Other ascites Status: Acute (10) COVID-19: Code(s): U07.1 - COVID-19 Status: Acute (11) Esophageal varices: Code(s): I85.00 - Esophageal varices without bleeding Status: Acute (12) Erosive gastritis: Code(s): K29.60 - Other gastritis without bleeding Status: Acute (13) Acute on chronic anemia: Code(s): D64.9 - Anemia, unspecified Status: Acute (14) Type 2 diabetes mellitus with hyperglycemia, without long-term current use of insulin: Code(s): E11.65 - Type 2 diabetes mellitus with hyperglycemia Status: Acute (15) Anemia requiring transfusions: Code(s): D64.9 - Anemia, unspecified Status: Acute (16) Follicular lymphoma: Code(s): C82.90 - Follicular lymphoma, unspecified, unspecified site Status: Acute (17) Other dietary vitamin B12 deficiency anemia: Code(s): D51.3 - Other dietary vitamin B12 deficiency anemia Status: Acute (18) Anemia, unspecified: Code(s): D64.9 - Anemia, unspecified Status: Acute DS: Summary Hospital Course Reason for hospitalization: Patient presented to the emergency department for evaluation of abdominal pain and weakness Hospital Course: H&P: HPI History of Present Illness Date/Time: 01/15/24? 13:30 Chief Complaint: Abdominal pain and weakness. Narrative: This is a 78-year-old male with cirrhosis of the liver, non-Hodgkin lymphoma, hypertension, paroxysmal atrial fibrillation, status post implantation cardioverter/defibrillator, type 2 diabetes mellitus, gastroesophageal reflux disease, and chronic anemia who presented to the emergency department for evaluation of abdominal pain and weakness. The patient provides the following history. He was admitted to the hospital at the end of last month with symptomatic anemia and Hemoccult-positive stools. EGD and colonoscopy per Dr. Musa showed nonbleeding esophageal varices and gastritis and several brandon
[2024-01-20 12:17] LABS: Glucose Point of Care 195 mg/dl (65-105)
[2024-01-20] MEDS: HEPARIN SODIUM LOCK FLUSH 500 UNITS/5 ML SYRINGE IV PUSH (12:49)
[2024-01-22 20:56] LABS: Albumin Peritoneal Fluid 0.2 g/dL
== END 2024-01-20 13:50 | disposition home or self-care (01) | DRG 178 ==
LOC: ANHED 08:17 → ANHIMU 08:41 → ANH2MED 01-16 17:59
PROVIDERS: Emergency Medicine; Nurse Practitioner; Nurse Practitioner Family; Physician Assistant; Admitting Provider General Practice; Emergency Provider Emergency Medicine; PCP Internal Medicine; Visit Provider Family Medicine
DX: U07.1 COVID-19 (principal); C82.90 Follicular lymphoma, unspecified, unspecified site; E87.1 Hypo-osmolality and hyponatremia; R18.8 Other ascites; E87.21 Acute metabolic acidosis; I85.00 Esophageal varices without bleeding; K22.70 Barrett's esophagus without dysplasia; K74.60 Unspecified cirrhosis of liver; K75.81 Nonalcoholic steatohepatitis (NASH); R19.5 Other fecal abnormalities; I48.0 Paroxysmal atrial fibrillation; E11.65 Type 2 diabetes mellitus with hyperglycemia; K21.9 Gastro-esophageal reflux disease without esophagitis; K76.82 Hepatic encephalopathy; D63.0 Anemia in neoplastic disease; Z95.810 Presence of automatic (implantable) cardiac defibrillator; Z98.1 Arthrodesis status; Z96.1 Presence of intraocular lens; Z98.42 Cataract extraction status, left eye; Z98.41 Cataract extraction status, right eye; Z85.828 Personal history of other malignant neoplasm of skin; Z87.891 Personal history of nicotine dependence; D50.9 Iron deficiency anemia, unspecified; J44.9 Chronic obstructive pulmonary disease, unspecified
CPT/HCPCS: 36415; 36430; 49083; 70450; 71045; 74177; 80048; 80053; 80076; 81003; 82042; 82140; 82274; 82570; 82607; 82728; 82746; 82948; 83540; 83550; 83605; 83690; 83735; 83930; 83935; 84100; 84145; 84300; 84443; 84484; 84540; 85025; 85027; 85055; 85610; 85730; 86850; 86900; 86901; 86923; 87040; 87070; 87075; 87205; 87637; 88108; 88305; 89051; 93005; 97161; 97165; 99285; A9270; C9113; J0248; J0744; J1642; J1756; J1815; J3411; J7040; J7050; P9016; Q9967

== ENCOUNTER 2024-01-15 08:00 | Outpatient (RCR) | payer OTHER, SELFPAY ==
[2023-12-25] VITALS (11 sets, daily range): BP systolic 102–126; BP diastolic 42–53; PULSE 58–62; RESP 13–17; TEMP 36.3–36.8; O2SAT 100
[2023-12-25] MEDS: SODIUM CHLORIDE 0.9% IV 250 ML 30 ML IV CONT (08:21)
[2023-12-25] MEDS: diphenhydrAMINE HCl CAP 25 MG CAPSULE PO (08:21)
[2023-12-25] MEDS: ACETAMINOPHEN 325 MG TABLET 650 MG PO (08:22)
[2023-12-25] MEDS: FUROSEMIDE INJ 40 MG/4 ML VIAL 20 MG IV PUSH (12:02)
== END 2024-03-24 23:59 | disposition home or self-care (01) ==
LOC: ANHCPCTRAN 08:00
PROVIDERS: PCP Internal Medicine; Visit Provider Internal Medicine Hematology & Oncology
DX: D64.9 Anemia, unspecified (principal)
CPT/HCPCS: 36415; 36430; 86850; 86900; 86901; 86923; A9270; J1642; J1940; J7050; P9016

== ENCOUNTER 2024-01-24 15:53 | Emergency (ER) | payer OTHER, SELFPAY ==
--- NOTE | ~2024-01-24 | XR_ITS ---
Portable chest x-ray Comparison: 01/15/2024 Clinical History: Weakness Findings: Right-sided Mediport in place. Lungs are clear, without focal consolidation or pleural eff usion. Probable small calcified left hilar lymph nodes present. Cardiomediastinal silhouette is stab le, with pacemaker device. Bones and soft tissues are unremarkable. Impression: No acute abnormality. Heparin pacemaker device. Reviewed, dictated and finalized at location . Impression: No acute abnormality. Heparin pacemaker device.
[2024-01-24 15:54] VITALS: BP 115/50; PULSE 75; RESP 16; TEMP 36.2; O2SAT 97
--- NOTE | 2024-01-24 16:16 | ED.RECABL ---
HPI - Recheck/Abnormal Lab/Rx General Chief Complaint: Recheck/Abnormal Lab/Rx <RICCO Hernandez Last Filed: 01/24/24 16:30> Stated Complaint: REQUESTING BLOOD TRANSFUSION <RICCO Hernandez Last Filed: 01/24/24 16:30> Time Seen by Provider: 01/24/24 16:16 <RICCO Hernandez Last Filed: 01/24/24 16:30> Focused HPI: Patient is a 78 y/o male, with PMH of Non-Hodgkin's lymphoma, liver cirrhosis, who presents to the ED with c/o N/V. Patient reports he was recently admitted to the hospital here for anemia/covid/hyponatremia, required several blood transfusions, underwent colonoscopy which showed polyps, gastritis, varices, no masses. Anemia felt to be multifactorial. Scheduled to follow-up with oncology and GI as outpatient. Patient reports he developed vomiting around 8:00 a.m. this morning after eating breakfast. Had 1 episode of vomiting. Concerned he may need another blood transfusion. He denies current nausea. Denies abdominal pain. He does report several episodes of diarrhea today. Reports bright red rectal bleeding with melanotic stools. states he feels weak overall. Denies focal weakness or numbness. Denies dizziness or lightheadedness, chest pain, shortness breath. Per records, patient was supposed to be holding his Eliquis due to the bleeding, but he believes he has been taking this twice daily. GENERAL: Well-appearing, well-nourished, and in no acute distress. HEAD: Normocephalic, atraumatic. CHEST: Clear to auscultation. ?No respiratory distress. HEART: Regular rate and rhythm.? NEURO: ?Alert and oriented x3. Patient screened in triage and initial orders placed.? ?Additional care and disposition to be based upon?diagnostic testing and treatment. <RICCO Hernandez Last Filed: 01/24/24 16:30> Source: patient and old records reviewed <RICCO Hernandez Last Filed: 01/24/24 16:30> Mode of arrival: ambulatory <RICCO Hernandez Last Filed: 01/24/24 16:30> Limitations: no limitations <RICCO Hernandez Last Filed: 01/24/24 16:30> Related Data Home Medications: Home Medications Medication Instructions Recorded Confirmed apixaban 5 mg tablet (Eliquis) 5 mg PO BID 06/19/22 01/15/24 cholecalciferol (vitamin D3) 25 25 mcg PO DAILY 06/19/22 01/15/24 mcg (1,000 unit) capsule empagliflozin 25 mg tablet 25 mg PO QAM 06/19/22 01/15/24 (Jardiance) ferrous sulfate 325 mg (65 mg 325 mg PO BID 06/19/22 01/15/24 iron) capsule,extended release fluticasone propionate 50 2 spray intranasal DAILY 06/19/22 01/15/24 mcg/actuation nasal spray,suspension nystatin 100,000 unit/gram topical 1 applic topical BID PRN MOUTH 06/19/22 01/15/24 cream SORES omeprazole 40 mg capsule,delayed 40 mg PO BID 06/19/22 01/15/24 release simvastatin 20 mg tablet (Zocor) 20 mg PO DAILY 06/19/22 01/15/24 cyanocobalamin (vitamin B-12) 1,000 mcg PO DAILY 11/29/22 01/15/24 1,000 mcg tablet metformin 1,000 mg tablet 1,000 mg PO BID 02/14/23 01/15/24 sucralfate 1 g PO QID 09/04/23 01/15/24 acyclovir 400 mg tablet 400 mg PO BID 12/25/23 01/15/24 aspirin 81 mg tablet 81 mg PO DAILY 12/25/23 01/15/24 sitagliptin phosphate 50 mg tablet 100 mg PO DAILY 01/15/24 01/15/24 (Januvia) <RICCO Hernandez Last Filed: 01/24/24 16:30> Allergies/Adverse Reactions: Allergies Allergy/AdvReac Type Severity Reaction Status Date / Time cefditoren AdvReac Rash Verified 12/25/23 07:53 tetracycline AdvReac Rash Verified 12/25/23 07:53 <RICCO Hernandez Last Filed: 01/24/24 16:30> [facility] Past Medical History Medical History: Medical History B12 deficiency Cardiac defibrillator in place (~2020) Chronic obstructive pulmonary disease Cirrhosis Erosive gastritis Esophageal varices Gastroesophageal reflux disease Hearing loss Hepatitis Hyp
[2024-01-24 17:07] LABS: Basophils Percent Auto 0.2 % (0.2-1.2); Eosinophils Absolute Auto 0.1 K/mm3 (0-0.3); Eosinophils Percent Auto 2.2 % (0-4.4); Hematocrit 26.5 % (42.0-52.0); Hemoglobin 8.5 g/dL (14.0-18.0); Immature Granulocyte Absolute 0.03 K/mm3 (0.00-0.031); Immature Granulocyte Percent A 0.7 % (0-0.5); Lymphocytes Absolute Auto 0.58 K/mm3 (0.9-3.2); Lymphocytes Percent Auto 12.9 % (18.3-44.2); Mean Corpuscular HGB Conc 32.1 g/dl (32-36); Mean Corpuscular Hemoglobin 31.5 pg (26-34); Mean Corpuscular Volume 98.1 fl (80-100); Mean Platelet Volume 10.3 fl (7.4-10.4); Monocytes Absolute Auto 0.6 K/mm3 (0.1-0.6); Monocytes Percent Auto 13.1 % (2.6-8.5); Neutrophils Absolute Auto 3.2 K/mm3 (1.3-6.7); Neutrophils Percent Auto 70.9 % (45.5-73.1); Platelet Count Result 196 k/mm3 (150-375); Red Cell Distribution Width 21.4 % (11.5-14.5); White Blood Count 4.5 K/mm3 (4.5-10.0)
[2024-01-24 17:18] LABS: Alanine Aminotransferase 24 U/L (6-50); Albumin Level 2.9 g/dL (3.5-5.1); Alkaline Phosphatase 163 U/L (38-126); Anion Gap 3 mmol/L (8-16); Aspartate Amino Transferase 28 U/L (17-59); Bilirubin,Total 0.8 mg/dL (0.2-1.3); Blood Urea Nitrogen 34 mg/dL (9-20); Calcium 9.3 mg/dL (8.4-10.2); Carbon Dioxide 24 mmol/L (22-30); Chloride 102 mmol/L (98-107); Estimated CRCL calculation 45 ml/min; Estimated Glomerular Filt Rate > 60; Glucose 257 mg/dL (65-110); Potassium 4.1 mmol/L (3.4-5.0); Sodium 129 mmol/L (137-145)
[2024-01-24 17:24] LABS: INR 1.5; Partial Thromboplastin Time 31.8 Seconds (22.3-36.8); Prothrombin Time 19.4 Seconds (11.1-14.7)
[2024-01-24 20:01] VITALS: BP 129/55; PULSE 71; RESP 13; O2SAT 100
[2024-01-24] MEDS: SODIUM CHLORIDE 0.9% IV 1,000 ML 999 ML IV CONT (21:11)
[2024-01-24] MEDS: ONDANSETRON INJ 4 MG/2 ML VIAL IV PUSH (21:11)
[2024-01-24 22:15] VITALS: BP 111/54; PULSE 74; RESP 15; O2SAT 98
[2024-01-24 22:24] LABS: Appearance Urine Clear (Clear); Bilirubin Urine Negative (Negative); Blood Urine Negative (Negative); Color Urine Yellow (Yellow); Glucose Urine UA 3+ mg/dL (Negative); Ketones Urine Trace mg/dL (Negative); Leukocyte Esterase Ur Negative LEU/UL (Negative); Nitrate Urine Negative (Negative); Protein Urine Negative (Negative); Specific Grav Ur 1.027 (1.001-1.035); Urobilinogen Urine 0.2 mg/dL (<2.0)
[2024-01-24 22:25] LABS: Add Urine Microscopic? NO
[2024-01-24 22:48] LABS: Influenza A QL RT-PCR Negative (Negative); Influenza B QL RT-PCR Negative (Negative); RSV RNA, RT-PCR Negative (Negative); SARS-CoV-2 RNA PCR Negative (Negative)
[2024-01-24 23:42] VITALS: BP 124/63; PULSE 75; RESP 17; O2SAT 100
--- NOTE | 2024-01-25 00:22 | ECG_ITS ---
Measurements Intervals [place] Rate: 75 P: 34 MN: 157 QRS: 54 QRSD: 106 T: 0 QT: 365 QTc: 410 Interpretive Statements SINUS RHYTHM MINIMAL Q WAVES- INFERIOR LEADS CONSIDER ANTERIOR INFARCT, AGE INDETERMINATE BORDERLINE ST-T WAVE ABNORMALITY- DIFFUSE LEADS BASELINE ARTIFACT- V2-V3 ABNORMAL ECG COMPARED TO ECG 01/15/2024 06:04:17 NO SIGNIFICANT CHANGES Electronically Signed On 01-25-2024 6:38:58 CDT by Moises Marcial D.O.
[2024-01-25 02:00] VITALS: BP 122/65; PULSE 72; RESP 15; O2SAT 98
== END 2024-01-25 02:25 | disposition home or self-care (01) ==
PROVIDERS: Physician Assistant; Emergency Provider Emergency Medicine; PCP Internal Medicine
DX: R11.2 Nausea with vomiting, unspecified (principal); Z20.822 Contact with and (suspected) exposure to COVID-19; C85.90 Non-Hodgkin lymphoma, unspecified, unspecified site; J44.9 Chronic obstructive pulmonary disease, unspecified; I48.0 Paroxysmal atrial fibrillation; E78.5 Hyperlipidemia, unspecified; E11.9 Type 2 diabetes mellitus without complications; E53.8 Deficiency of other specified B group vitamins; D50.9 Iron deficiency anemia, unspecified; K74.60 Unspecified cirrhosis of liver; K21.9 Gastro-esophageal reflux disease without esophagitis; Z95.810 Presence of automatic (implantable) cardiac defibrillator; Z96.1 Presence of intraocular lens; Z98.49 Cataract extraction status, unspecified eye; Z98.1 Arthrodesis status; Z86.16 Personal history of COVID-19; Z86.010 Personal history of colon polyps; Z85.828 Personal history of other malignant neoplasm of skin; Z87.891 Personal history of nicotine dependence; Z79.84 Long term (current) use of oral hypoglycemic drugs; Z79.01 Long term (current) use of anticoagulants; Z79.82 Long term (current) use of aspirin; R94.31 Abnormal electrocardiogram [ECG] [EKG]
CPT/HCPCS: 36415; 71045; 80053; 85025; 85610; 85730; 86850; 86900; 86901; 87637; 93005; 96361; 96374; 99284; J2405; J7030

== ENCOUNTER 2024-01-30 10:02 | Outpatient (CLI) | payer OTHER, SELFPAY ==
--- NOTE | ~2024-01-30 | US_ITS ---
EXAMINATION: US paracentesis abd w/image DATE: 01/30/2024 11:10 INDICATION: Ascites. TECHNIQUE: The procedure and its risks and benefits were discussed with the patient. Potential risks discussed included bleeding and infection. The skin was prepped and draped in sterile fashion. 1% lid ocaine was used for local anesthesia. Under ultrasound guidance, a 5 Fr catheter with trochar was adv anced into the ascites in the right lower quadrant. Fluid was aspirated into vacuum bottles. The cath eter was removed, and a dressing was applied. There were no immediate complications. FINDINGS: Ultrasound images demonstrate ascites and the catheter within the fluid. IMPRESSION: 1. Successful ultrasound-guided paracentesis yielding 2900 mL of cloudy yellow fluid. Reviewed, dictated and finalized at location A.
== END 2024-01-30 10:03 | disposition home or self-care (01) ==
PROVIDERS: PCP Internal Medicine; Visit Provider Internal Medicine Hematology & Oncology
DX: K70.31 Alcoholic cirrhosis of liver with ascites (principal)
CPT/HCPCS: 49083; 88104; 88108; 88305; 88313; 88342; 88360; 88364; 88365

== ENCOUNTER 2024-01-30 11:24 | Inpatient (IN) | payer OTHER, SELFPAY ==
[2024-01-30] VITALS (22 sets, daily range): BP systolic 87–115; BP diastolic 36–57; PULSE 59–62; RESP 14–19; TEMP 36.1–36.6; O2SAT 96–100; BMI 23.1
--- NOTE | ~2024-01-30 | CT_ITS ---
EXAMINATION: CT brain wo con DATE: 01/30/2024 12:18 INDICATION: Altered mental status. TECHNIQUE: Computed tomography (CT) of the head was performed without intravenous contrast. The mA wa s adjusted according to patient size. Iterative reconstruction technique was employed. The dose-lengt h product was 529.67 mGy-cm. COMPARISON: Head CT 01/15/2024 FINDINGS: There is no intracranial hemorrhage, acute infarction, or abnormal intracranial mass lesion . There are scattered areas of low attenuation in the cerebral white matter, which is within normal l imits for the patient's age. The ventricles are normal in size. The paranasal sinuses are clear. Ther e is a trace right mastoid effusion. There are likely changes of ocular lens replacement surgeries. IMPRESSION: 1. Normal aging brain. Reviewed, dictated and finalized at location A. IMPRESSION: 1. Normal aging brain.
--- NOTE | ~2024-01-30 | XR_ITS ---
XR chest 1V 01/30/2024 12:26 Indication: Altered mental status Procedure: AP view of the chest Comparison: 01/25/2024 Findings: Portacatheter tip in the SVC. Pacemaker leads in the right atrium and right ventricle respe ctively. Heart size normal. No focal air space disease, pulmonary edema, pleural effusion or suspecte d pneumothorax. Elevated right diaphragm. Impression: 1: No acute cardiopulmonary disease. Reviewed, dictated and finalized at location B. Impression: 1: No acute cardiopulmonary disease.
--- NOTE | ~2024-01-30 | BM_ITS ---
EXAMINATION: CCL bone marrow asp w bx diag DATE: 02/01/2024 13:15 INDICATION: B-cell lymphoma. TECHNIQUE: A time-out was performed to verify the patient's name, date of , and procedure to b e performed. The procedure including the risks, benefits, and alternatives was discussed with the pat ient. Risks discussed included bleeding and infection. The patient understood the risks and agreed to proceed. The skin overlying the left ilium was prepped and draped in usual sterile fashion. Anesth etic was administered with 1% lidocaine subcutaneously. 50 mcg fentanyl IV was given for pain control . An 11 gauge needle was inserted into the ilium with fluoroscopic guidance. Bone marrow was aspirat ed. An 8 gauge needle was then inserted into the ilium with fluoroscopic guidance. A core bone marrow biopsy was obtained. There were no immediate complications. Fluoroscopy exposure time was 0.0 minute s. The total number of images was 16. FINDINGS: Real-time fluoroscopy demonstrates a marker overlying the left posterior superior iliac spi ne. IMPRESSION: 1. Fluoro-guided bone marrow aspiration. 2. Fluoro-guided bone marrow core biopsy. Reviewed, dictated and finalized at location A.
--- NOTE | 2024-01-30 11:37 | ECG_ITS ---
Measurements Intervals [place] Rate: 60 P: -89 LA: 225 QRS: 53 QRSD: 106 T: 72 QT: 414 QTc: 414 Interpretive Statements ELECTRONIC ATRIAL PACEMAKER BORDERLINE R WAVE PROGRESSION, ANTERIOR LEADS BORDERLINE T WAVE ABNORMALITY- HIGH LATERAL LEADS BASELINE ARTIFACT- I, II, AVR, AVL, V1-V3 BORDERLINE ECG COMPARED TO ECG 01/25/2024 00:32:06 ELECTRONIC ATRIAL PACEMAKER NOW PRESENT Electronically Signed On 01-30-2024 11:48:52 CDT by Moises Marcial D.O.
--- NOTE | 2024-01-30 11:56 | ED.AMS ---
HPI - Altered Mental Status General Chief Complaint: Altered Mental Status Stated Complaint: need blood? Time Seen by Provider: 01/30/24 11:51 History of Present Illness HPI narrative: Pt presents with altered mental status for the last couple of days per . says this has happened in past when his sodium was low. Pt denies fever, cough, dysuria or frequency. Pt just had fluid drained off his abdomen today. says pt is oriented to person but confused on where he is and getting out of bed and wondering around. Related Data Home Medications Medication Instructions Recorded Confirmed apixaban 5 mg tablet (Eliquis) 5 mg PO BID 06/19/22 01/15/24 cholecalciferol (vitamin D3) 25 25 mcg PO DAILY 06/19/22 01/15/24 mcg (1,000 unit) capsule empagliflozin 25 mg tablet 25 mg PO QAM 06/19/22 01/15/24 (Jardiance) ferrous sulfate 325 mg (65 mg 325 mg PO BID 06/19/22 01/15/24 iron) capsule,extended release fluticasone propionate 50 2 spray intranasal DAILY 06/19/22 01/15/24 mcg/actuation nasal spray,suspension nystatin 100,000 unit/gram topical 1 applic topical BID PRN MOUTH 06/19/22 01/15/24 cream SORES omeprazole 40 mg capsule,delayed 40 mg PO BID 06/19/22 01/15/24 release simvastatin 20 mg tablet (Zocor) 20 mg PO DAILY 06/19/22 01/15/24 cyanocobalamin (vitamin B-12) 1,000 mcg PO DAILY 11/29/22 01/15/24 1,000 mcg tablet metformin 1,000 mg tablet 1,000 mg PO BID 02/14/23 01/15/24 sucralfate 1 g PO QID 09/04/23 01/15/24 acyclovir 400 mg tablet 400 mg PO BID 12/25/23 01/15/24 aspirin 81 mg tablet 81 mg PO DAILY 12/25/23 01/15/24 sitagliptin phosphate 50 mg tablet 100 mg PO DAILY 01/15/24 01/15/24 (Januvia) Allergies Allergy/AdvReac Type Severity Reaction Status Date / Time cefditoren AdvReac Rash Verified 12/25/23 07:53 tetracycline AdvReac Rash Verified 12/25/23 07:53 Review of Systems Review of Systems: ROS unobtainable: Yes unobtainable due to mental status [facility] Past Medical History Medical History B12 deficiency Cardiac defibrillator in place (~2020) Chronic obstructive pulmonary disease Cirrhosis Erosive gastritis Esophageal varices Gastroesophageal reflux disease Hearing loss Hepatitis Hyperlipidemia Iron deficiency anemia Non-Hodgkin lymphoma (02/2023) Follicular lymphoma; 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 Paroxysmal atrial fibrillation Skin cancer Type 2 diabetes mellitus Surgical History Surgical History History of automatic internal cardiac defibrillator (AICD) (2020) History of cataract extraction with lens replacement History of fusion of cervical spine History of permanent cardiac pacemaker placement (2020) Family History Family History Father Heart problem Mother Heart problem Social History Social History Social History: Surrogate medical decision maker: Nicki Renae, spouse. Code status: Full code. Smoking packs per day: 2 Smoking cigarettes per day: 40.0 Years smoked: 8 Smoking pack-years: 16.00 Smoking status: Former smoker Tobacco type: cigarettes and cigars Second hand tobacco smoke exposure: No Alcohol intake: former Substance use: never Substance use type: does not use Do You Feel Safe in your Home?: Yes Lack of Transportation: No Lack of Food: Never True Current Housing: I Have Housing Concerned About Future Housing: No Difficulty Paying Gas/Electric Bills: No Difficulty Paying for Meds: No Currently Unemployed: No Education: High School Diploma/GED Difficulty w/ Childcare or Family Care: No Living arrangements: with family Additional living arrangements comments: Lives with spouse in [place]. Spiritual care concerns: No Exam Const: General: no acute distress Nutritional
[2024-01-30 12:22] LABS: Basophils Percent Auto 0.5 % (0.2-1.2); Eosinophils Absolute Auto 0.1 K/mm3 (0-0.3); Eosinophils Percent Auto 2.5 % (0-4.4); Immature Granulocyte Absolute 0.05 K/mm3 (0.00-0.031); Immature Granulocyte Percent A 1.4 % (0-0.5); Mean Corpuscular HGB Conc 30.7 g/dl (32-36); Mean Corpuscular Hemoglobin 32.3 pg (26-34); Mean Corpuscular Volume 105.1 fl (80-100); Mean Platelet Volume 11.1 fl (7.4-10.4); Monocytes Absolute Auto 0.5 K/mm3 (0.1-0.6); Monocytes Percent Auto 14.8 % (2.6-8.5); Neutrophils Absolute Auto 2.5 K/mm3 (1.3-6.7); Neutrophils Percent Auto 69.8 % (45.5-73.1); Platelet Count Result 162 k/mm3 (150-375); Red Blood Count 1.95 M/mm3 (4.6-6.20); Red Cell Distribution Width 22.7 % (11.5-14.5); White Blood Count 3.6 K/mm3 (4.5-10.0)
[2024-01-30 12:28] LABS: Hematocrit 20.5 % (42.0-52.0); Hemoglobin 6.3 g/dL (14.0-18.0)
[2024-01-30 12:30] LABS: Ammonia 21 umol/L (9-30)
[2024-01-30 12:34] LABS: Appearance Urine Clear (Clear); Bilirubin Urine Negative (Negative); Blood Urine Negative (Negative); Color Urine Yellow (Yellow); Glucose Urine UA 3+ (Negative); Ketones Urine Negative (Negative); Nitrate Urine Negative (Negative); Protein Urine Negative (Negative); pH Urine 5.5 (5.0-8.0)
[2024-01-30 12:35] LABS: Add Urine Microscopic? NO; Leukocyte Esterase Ur Negative LEU/UL (Negative); Urobilinogen Urine 0.2 mg/dL (0.2-1.0)
[2024-01-30 12:37] LABS: INR 1.8; Prothrombin Time 22.1 Seconds (11.1-14.7)
[2024-01-30 12:38] LABS: Partial Thromboplastin Time 45.2 Seconds (22.3-36.8)
[2024-01-30 12:40] LABS: Lactic Acid Reflex 5.3 mmol/L (0.7-2.0)
[2024-01-30 12:47] LABS: Alanine Aminotransferase 27 U/L (6-50); Albumin Level 2.4 g/dL (3.5-5.1); Alkaline Phosphatase 148 U/L (38-126); Anion Gap 7 mmol/L (4-12); Aspartate Amino Transferase 31 U/L (17-59); Bilirubin,Total 0.6 mg/dL (0.2-1.3); Blood Urea Nitrogen 33 mg/dL (9-20); Calcium 9.3 mg/dL (8.4-10.2); Carbon Dioxide 20 mmol/L (22-30); Chloride 106 mmol/L (98-107); Estimated CRCL calculation 50 ml/min; Estimated Glomerular Filt Rate > 60; Glucose 209 mg/dL (65-110); Potassium 4.1 mmol/L (3.4-5.0); Sodium 133 mmol/L (137-145)
[2024-01-30 12:48] LABS: Hypochromasia 2+; Platelet Estimate Adequate (Adequate)
[2024-01-30 12:49] LABS: Anisocytosis 2+; Macrocytosis 2+ (NORMAL); Schistocytes None Seen
[2024-01-30 13:10] LABS: Influenza A QL RT-PCR Negative (Negative); Influenza B QL RT-PCR Negative (Negative); RSV RNA, RT-PCR Negative (Negative); SARS-CoV-2 RNA PCR Negative (Negative)
[2024-01-30] MEDS: SODIUM CHLORIDE 0.9% IV 500 ML 999 ML IV CONT (13:32)
--- NOTE | 2024-01-30 13:48 | PM.IMHP ---
H&P: HPI History of Present Illness Date/Time: 01/30/24 13:48 Chief Complaint: AMS Narrative: 78 y/o M presents here with AMS with PMH of Sánchez's esophagus, liver cirrhosis, vit B12 deficiency, multifactorial anemia, gastritis, HTN, paroxysmal AFib, DM2, and B cell lymphoma diagnosed in Dec 2022 (completed radiation in 10/2023, not on maintenance chemo). Patient presents here with altered mental status that began yesterday. Arrived A/Ox2, unable to provide correct month or year. Patient denies any abdominal pain, chest pain, focal weakness, N/V/D. Increased belching. Stool are dark, ongoing. Has had multiple admissions in the last month: 01/14-01/19 for generalized weakness, intermittent abdominal bloating and discomfort, and anemia and -01/05 for symptomatic anemia, Hemoccult-positive stools, and COVID. Also seen on 01/23 for N/V/D but was ultimately discharged - no BRB per rectum and Hgb was stable. Last EGD done on 01/03/24 which showed small grade 1 varices in the distal esophagus without signs of bleeding, moderate erosive gastritis without bleeding, no ulcers, no masses. Typically needs a paracentesis every few weeks but has had four in the last month. Hgb was Currently reporting improvement (i.e. weakness) with initiation of blood transfusion and feels less foggy . No other complaints this time. Initial VS at presentation: 97.8? F, HR 60, RR 15, 115/45, and 100% on RA. ED workup showed: WBC 3.6, Hgb 6.3, MCV 105.1, MCHC 30.7, INR 1.8, Na 133, creatinine 0.9, glucose 209, lactic acid 5.3, and UA not suggestive of UTI. Head CT showed normal aging brain. CXR showed no acute cardiopulmonary disease. Paracentesis done yielding 2900 mL of cloudy yellow fluid. 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 Paroxysmal atrial fibrillation Skin cancer Type 2 diabetes mellitus Surgical History Surgical History History of automatic internal cardiac defibrillator (AICD) (2020) History of cataract extraction with lens replacement History of fusion of cervical spine History of permanent cardiac pacemaker placement (2020) Family History Family History Father Heart problem Mother Heart problem Social History Social History Social History: Surrogate medical decision maker: Nicki Renae, spouse. Code status: Full code. Smoking packs per day: 1 Smoking cigarettes per day: 20.0 Years smoked: 8 Smoking pack-years: 8.00 Smoking status: Former smoker Tobacco type: cigarettes Second hand tobacco smoke exposure: No Additional smoking assessment comments: quit 1987 Alcohol intake: former Substance use: never Substance use type: does not use Do You Feel Safe in your Home?: Yes Lack of Transportation: No Lack of Food: Never True Current Housing: I Have Housing Concerned About Future Housing: No Difficulty Paying Gas/Electric Bills: No Difficulty Paying for Meds: No Currently Unemployed: YES Education: Grade School Difficulty w/ Childcare or Family Care: No Living arrangements: with family Additional living arrangements comments: Lives with spouse in [place]. Spiritual care concerns: No Meds Home Medications and Allergies Home Medications Medication Instructions Recorded Confirmed Type apixaban 5 mg tablet (Eliquis) 5 mg PO Q12H
[2024-01-30] MEDS: CENTRAL LINE FLUSH 10 ML IV PUSH ×2 (14:09→20:48)
[2024-01-30 15:17] LABS: Reflex Lactic Acid Yes or No Add Lactic
[2024-01-30] MEDS: TUBING, BLOOD SET 1 EACH XX (15:23)
[2024-01-30] MEDS: SODIUM CHLORIDE 0.9% IV 250 ML 30 ML IV CONT (15:23)
--- NOTE | 2024-01-30 16:06 | ADMGEN ---
This patient, Estuardo Renae, was admitted to IMU Room 200-01. Patient/family oriented to hospital policies and general routines including ID bracelet, bed and alarms, visiting hours, pain management, procedures, bathroom and other care routines, personal items, smoking policy, room service/diet, and visiting hours. Information on how to activate the Rapid Response Team has been discussed. Patient/Family are encouraged to report perceived risks to care and to ask questions if they do not understand what they are told or what they should do.
[2024-01-30] MEDS: TUBING, BLOOD PLUM PUMP TUBING 1 EACH XX (18:35)
[2024-01-30] MEDS: SODIUM CHLORIDE 0.9% IV 250 ML 30 ML (18:36)
[2024-01-30] MEDS: PROPRANOLOL HCL 10 MG TABLET PO (20:47)
[2024-01-30] MEDS: ACYCLOVIR 400 MG TABLET PO (20:47)
[2024-01-30] MEDS: SIMVASTATIN 20 MG TABLET PO (20:47)
[2024-01-30] MEDS: rifAXIMin 550 MG TABLET PO (20:47)
[2024-01-30] MEDS: SUCRALFATE 1 GM TABLET PO (20:47)
[2024-01-30] MEDS: PANTOPRAZOLE SODIUM IV 40 MG VIAL IV PUSH (20:52)
[2024-01-30 21:09] LABS: Glucose Point of Care 153 mg/dl (65-105)
[2024-01-30 21:54] LABS: Hematocrit 24.2 % (42.0-52.0); Hemoglobin 7.9 g/dL (14.0-18.0)
[2024-01-31] VITALS (17 sets, daily range): BP systolic 93–106; BP diastolic 43–59; PULSE 59–60; RESP 16–20; TEMP 36.2–36.7; O2SAT 96–100
[2024-01-31] MEDS: ALBUMIN HUMAN 25% 25 GM/100 ML 100 ML IVPB ×2 (02:03→09:20)
[2024-01-31] MEDS: CENTRAL LINE FLUSH 10 ML IV PUSH ×3 (03:39→20:35)
[2024-01-31 06:44] LABS: Basophils Percent Auto 0.6 % (0.2-1.2); Eosinophils Absolute Auto 0.1 K/mm3 (0-0.3); Eosinophils Percent Auto 3.2 % (0-4.4); Hematocrit 23.3 % (42.0-52.0); Hemoglobin 7.5 g/dL (14.0-18.0); Immature Granulocyte Absolute 0.01 K/mm3 (0.00-0.031); Immature Granulocyte Percent A 0.6 % (0-0.5); Immature Platelet Fraction Pct 3.4 % (0.9-11.2); Lymphocytes Absolute Auto 0.27 K/mm3 (0.9-3.2); Lymphocytes Percent Auto 17.3 % (18.3-44.2); Mean Corpuscular HGB Conc 32.2 g/dl (32-36); Mean Corpuscular Hemoglobin 32.5 pg (26-34); Mean Corpuscular Volume 100.9 fl (80-100); Mean Platelet Volume 10.7 fl (7.4-10.4); Monocytes Absolute Auto 0.2 K/mm3 (0.1-0.6); Monocytes Percent Auto 15.4 % (2.6-8.5); Neutrophils Percent Auto 62.9 % (45.5-73.1); Nucleated Red Blood Cells Perc 1.3 % (0.0-0.2); Platelet Count Result 68 k/mm3 (150-375); Red Blood Count 2.31 M/mm3 (4.6-6.20); Red Cell Distribution Width 20.6 % (11.5-14.5)
[2024-01-31 06:54] LABS: Alanine Aminotransferase 24 U/L (6-50); Albumin Level 2.3 g/dL (3.5-5.1); Alkaline Phosphatase 95 U/L (38-126); Anion Gap 3 mmol/L (4-12); Aspartate Amino Transferase 28 U/L (17-59); Bilirubin,Total 1.6 mg/dL (0.2-1.3); Blood Urea Nitrogen 25 mg/dL (9-20); Calcium 8.7 mg/dL (8.4-10.2); Carbon Dioxide 25 mmol/L (22-30); Chloride 105 mmol/L (98-107); Estimated CRCL calculation 55 ml/min; Estimated Glomerular Filt Rate > 60; Glucose 122 mg/dL (65-110); Magnesium 1.8 mg/dL (1.6-2.3); Phosphorus 3.4 mg/dL (2.5-4.5); Potassium 3.4 mmol/L (3.4-5.0); Sodium 133 mmol/L (137-145)
[2024-01-31 06:56] LABS: Lactic Acid Reflex 0.8 mmol/L (0.7-2.0)
[2024-01-31 07:08] LABS: White Blood Count 1.6 K/mm3 (4.5-10.0)
[2024-01-31 07:11] LABS: Anisocytosis 2+; Hypochromasia 2+; Platelet Estimate Decreased (Adequate); Polychromasia 1+; Schistocytes None Seen
[2024-01-31 08:04] LABS: Glucose Point of Care 127 mg/dl (65-105)
--- NOTE | 2024-01-31 08:45 | WPDGICN ---
Assessment and Plan Assessment and plan (1) Acute on chronic anemia: Code(s): D64.9 - Anemia, unspecified Status: Acute Assessment and Plan: Acute on chronic anemia likely multifactorial as he does have underlying follicular lymphoma and cirrhosis. Hemoglobin 6.3 this admission previously was 9 at last discharge on 01/19. Has been transfused. He is reporting 1 black stool per day but is also taking ferrous sulfate 325 mg b.i.d. and black stool likely related to that. Underlying GI blood loss could be excluded though. Last EGD with erosive gastritis with no active bleeding, Colonoscopy with no active bleeding. -Will plan on EGD tomorrow, NPO after midnight -Consider outpatient capsule endoscopy to rule out small bowel source -Oncology has been consulted -Monitor H&H (2) Erosive gastritis: Code(s): K29.60 - Other gastritis without bleeding Status: Acute Assessment and Plan: EGD with erosive gastritis 12/2023-no active bleeding this could explain some anemia Recommend continuing pantoprazole 40 mg BID at this time (3) Follicular lymphoma: Code(s): C82.90 - Follicular lymphoma, unspecified, unspecified site Status: Acute Assessment and Plan: Oncology following and consulted (4) Altered mental status: Qualifiers: Altered mental status type: disorientation Qualified Code(s): R41.0 - Disorientation, unspecified Code(s): R41.82 - Altered mental status, unspecified Status: Acute Assessment and Plan: Improved. ammonia normal On Xifaxan 550 mg BID and lactulose daily for history of HE, okay to continue (5) Gastroesophageal reflux disease: Code(s): K21.9 - Gastro-esophageal reflux disease without esophagitis Status: Acute Assessment and Plan: on PPI (6) Paroxysmal atrial fibrillation: Code(s): I48.0 - Paroxysmal atrial fibrillation Status: Acute Assessment and Plan: Eliquis on hold (7) Hepatic encephalopathy: Code(s): K76.82 - Hepatic encephalopathy Status: Acute Assessment and Plan: Continue Xifaxan 550 mg BID and Lactulose at this time (8) Cirrhosis of liver with ascites: Code(s): K74.60 - Unspecified cirrhosis of liver; R18.8 - Other ascites Status: Acute Assessment and Plan: Likely secondary to CLARK Previous hepatitis negative had paracentesis 01/30/24 with 2900 mL No ascites today Needs to be on 2g na diet Discharge with lasix 40mg/Aldactone 100mg daily-currently only on Lasix 20 and Aldactone 50 mg. b/p are soft follow up in clinic for cirrhosis (9) Esophageal varices: Code(s): I85.00 - Esophageal varices without bleeding Status: Acute Assessment and Plan: small varices last EGD, no banding continue propanolol, monitor blood pressures is they are running soft at this time. (10) Pancytopenia: Code(s): D61.818 - Other pancytopenia Status: Acute (11) Lactic acidosis: Code(s): E87.20 - Acidosis, unspecified Status: Acute (12) Type 2 diabetes mellitus with hyperglycemia: Code(s): E11.65 - Type 2 diabetes mellitus with hyperglycemia Status: Acute GI Consult Note Consult date/time: 01/31/24 08:30 Reason for consult: Well known to our service for underlying decompensated cirrhosis secondary to CLARK, Sánchez's esophagus, erosive gastritis and colon polyps. He also has underlying follicular lymphoma and follows with Dr. Perez with radiation ending in October 2023, denies recent chemo. Recently had COVID during admission 01-14-01/19. Presented to [facility] ER yesterday for altered mental status, found to have a hemoglobin of 6.3, white blood cell count of 3.6. He was transfused 2 units of blood. He states several days ago he had an episode of vomiting while eating breakfast and denies any coffee-grounds or blood in the vomit. He reports 1 stool per day and reports at times they are black. H
[2024-01-31] MEDS: FLUTICASONE PROPIONATE 0.05% NA SPR 16 GM BTL (*BKC) 2 SPRAY NASAL (09:20)
[2024-01-31] MEDS: ACYCLOVIR 400 MG TABLET PO ×2 (09:20→20:33)
[2024-01-31] MEDS: FERROUS SULFATE 325 MG TABLET DR PO ×2 (09:20→16:48)
[2024-01-31] MEDS: EMPAGLIFLOZIN 25 MG TABLET PO (09:20)
[2024-01-31] MEDS: LACTULOSE 20 GM/30 ML UDC PO (09:20)
[2024-01-31] MEDS: CHOLECALCIFEROL 1,000 UNITS TABLET 1000 UNITS PO (09:20)
[2024-01-31] MEDS: CYANOCOBALAMIN 1,000 MCG TABLET 1000 MCG PO (09:20)
[2024-01-31] MEDS: PANTOPRAZOLE SODIUM IV 40 MG VIAL IV PUSH ×2 (09:21→20:34)
[2024-01-31] MEDS: rifAXIMin 550 MG TABLET PO ×2 (09:24→20:40)
[2024-01-31] MEDS: SUCRALFATE 1 GM TABLET PO ×4 (09:24→20:34)
[2024-01-31] MEDS: FUROSEMIDE 20 MG TABLET PO (09:24)
[2024-01-31] MEDS: PROPRANOLOL HCL 10 MG TABLET PO ×2 (09:24→20:34)
[2024-01-31] MEDS: lisinopriL 10 MG TABLET PO (09:24)
[2024-01-31] MEDS: SPIRONOLACTONE 50 MG TABLET PO (09:25)
--- NOTE | 2024-01-31 09:44 | PDONCCN ---
HPI - Date of Consult Date/Time: 01/31/24 12:49 <Anish Perez - 01/31/24 12:53> 01/31/24 09:44 <Lisbet Florez - 01/31/24 09:49> Requesting Physician: Chris Ramirez MD <Anish Perez - 01/31/24 12:53> Chris Ramirez MD <Lisbet Florez - 01/31/24 09:49> Primary Care Provider: Moses Conn, <Anish Perez - 01/31/24 12:53> Moses Conn, <GautamLisbet - 01/31/24 09:49> - Consult Narrative Reason for consult: Lymphoma / Anemia <Lisbet Florez - 01/31/24 09:49> Narrative: Estuardo Renae is a 78 year old male <Anish Perez - 01/31/24 12:53> Estuardo Renae is a 78 year old male with a past medical history of liver cirrhosis, vit B12/anemia deficiency, gastritis, anemia, and 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 He completed radiation therapy in Oct 2023 and his maintenance chemotherapy was not approved by insurance. We last saw Estuardo in office 01/29/24 after being hospitalized for COVID infection and iron deficeincy anemia. He receivied 2 units of PRBC on January 25. Pt had colonoscopy and EGD on Dec which showed internal hemorrhoids with colon polyps and nonbleeding esophageal varices with gastritis. He is getting intermittent paracentesis which cytology does not show any malignancy. We suggested he got a f/u with Dr Orellana for GI evaluation and possible capsule enteroscopy since he has been dealing with blood loss and iron deficiency. He is taking oral iron daily. Reports he is having some blood in his stool and can see it on toliet paper. His last iron infusion was 01/17/24. Iron studies were stable on 01/28. His liver cirrhosis has been known as well as gastritis and Sánchez's esophagus. Labs today are notable for Hgb 7.5, WBC 1.6, Plt 68,000 ANC 1.0. <Lisbet Florez 01/31/24 11:20> Review of Systems - Review of Systems All systems reviewed & are unremarkable except as noted in HPI and bel <Lisbet Florez 01/31/24 10:03> - Neurologic Reports weakness <GautamLisbet 01/31/24 09:49> [facility] Medical History: Medical History (Last Reviewed 01/30/24 @ 16:52 by Myra Armendariz APRN) B12 deficiency Cardiac defibrillator in place Onset Date: ~2020 Chronic obstructive pulmonary disease Cirrhosis Erosive gastritis Esophageal varices Gastroesophageal reflux disease Hearing loss Hepatitis Hyperlipidemia Iron deficiency anemia Non-Hodgkin lymphoma Onset Date: 02/2023 Follicular lymphoma; 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 Paroxysmal atrial fibrillation Skin cancer Type 2 diabetes mellitus <Lisbet Floerz 01/31/24 09:49> Surgical History: Surgical History (Last Reviewed 01/30/24 @ 16:52 by Myra Armendariz APRN) History of automatic internal cardiac defibrillator (AICD) Onset Date: 2020 History of cataract extraction with lens replacement History of fusion of cervical spine History of permanent cardiac pacemaker placement Onset Date: 2020 <Anish Perez - 01/31/24 12:53> Surgical History (Last Reviewed 01/30/24 @ 16:52 by Myra Armendariz APRN) History of automatic internal cardiac defibrillator (AICD) Onset Date: 2020 History of cataract extraction with lens replacement History of fusion of cervical spine History of permanent cardiac pacemaker placement Onset Date: 2020 <Lisbet Florez 01/31/24 09:49> Family History: Family History (Last Review
--- NOTE | 2024-01-31 10:53 | PM.IMPN ---
Progress Note: A&P Assessment and Plan (1) Altered mental status: Qualifiers: Altered mental status type: disorientation Qualified Code(s): R41.0 - Disorientation, unspecified Code(s): R41.82 - Altered mental status, unspecified Status: Acute (2) GI (gastrointestinal bleed): Code(s): K92.2 - Gastrointestinal hemorrhage, unspecified Status: Acute (3) Anemia: Code(s): D64.9 - Anemia, unspecified Status: Acute (4) Type 2 diabetes mellitus with hyperglycemia: Code(s): E11.65 - Type 2 diabetes mellitus with hyperglycemia Status: Acute (5) Hyponatremia: Code(s): E87.1 - Hypo-osmolality and hyponatremia Status: Acute (6) Profound anemia: Code(s): D64.9 - Anemia, unspecified Status: Acute (7) Hepatic encephalopathy: Code(s): K76.82 - Hepatic encephalopathy Status: Acute (8) Cirrhosis of liver with ascites: Code(s): K74.60 - Unspecified cirrhosis of liver; R18.8 - Other ascites Status: Acute Plan (1) GI (gastrointestinal bleed): ?Code(s): K92.2 - Gastrointestinal hemorrhage, unspecified ?Status:?Acute ?Assessment and Plan: - Hgb 6.3 - previously 7.1 on 01/28 - transfuse 2 units, recheck CBC post-transfusion - GI consulted, awaiting recs - pantoprazole IVP BID - continue Carafate 1G QID - EGD, previous (01/03/24): 1. Small grade 1 varcies (small, barely visible varices) were present in the distal esophagus.? The varices had 2 columns.? No signs of bleeding. 2. Moderate erosive gastritis was seen in the antrum.? The gastritis had moderate erythematous, edematous, and erosive changes.? No ulcer or gastric varix.? No mucosal bleeding.? Multiple biopsies taken. 3. The bulb and 2nd portion of duodenum were normal with no ulcers or masses. - colonoscopy, previous (01/03/24): Three 3-7 mm polyps observed in the ascending colon.? Multiple hot snare polypectomies done and polyps were completely excised.? Terminal ileum and colon were examined and were normal.? No colitis, no AVM, and no signs of bleeding.? ?small sized internal hemorrhoids were seen in the rectum.? Hemorrhoids were not actively bleeding. - trend blood counts - hold Eliquis and ASA (2) Anemia: ?Code(s): D64.9 - Anemia, unspecified ?Status:?Acute ?Assessment and Plan: - multifactorial: cirrhosis, GI bleed, B12 deficiency - see previous EGD and colonoscopy above - transfuse 2 units, recheck post - hematology/oncology consulted, awaiting recs - trend (3) Altered mental status: ?Qualifiers: ?Altered mental status type:?disorientation? Qualified Code(s):?R41.0 - Disorientation, unspecified ?Code(s): R41.82 - Altered mental status, unspecified ?Status:?Acute ?Assessment and Plan: - anemic w/Hgb of 6.3 - Head CT Normal aging brain. Trace right mastoid effusion. - UA: 3+ glucose, otherwise unremarkable - appears at baseline after fluids/transfusion started - neurochecks QShift (4) Lactic acidosis: ?Code(s): E87.20 - Acidosis, unspecified ?Status:?Acute ?Assessment and Plan: - lactic:? 5.3 -> 3.0 - lactic acidosis previously seen with GI bleed/anemia on 01/14 - likely multifactorial: poor hepatic clearance (cirrhosis hx) and tissue hypoperfusion (hypotension/anemia) - trend down (5) Cirrhosis of liver with ascites: ?Code(s): K74.60 - Unspecified cirrhosis of liver; R18.8 - Other ascites ?Status:?Acute ?Assessment and Plan: - previous hepatitis panel negative (01/04/24) - paracentesis hx (2023): 01/29: 2900 mL of cloudy yellow fluid. 01/15: 1550 mL of clear, yellow fluid. negative culture. 01/05: 3300 mL of yellow fluid. 01/03: 2200 mL of clear, yellow fluid. WBC seen, no organisms seen, no anaerobes. - continue Lasix 40 mg p.o. daily and Aldactone 100 mg p.o. daily - albumin 2.4, replete - albumin 25G Q6H x2. repeat in AM. - ammonia 21 - continue l
[2024-01-31 12:07] LABS: Glucose Point of Care 156 mg/dl (65-105)
[2024-01-31 12:23] LABS: Basophils Percent Auto 0.5 % (0.2-1.2); Eosinophils Absolute Auto 0.1 K/mm3 (0-0.3); Eosinophils Percent Auto 2.5 % (0-4.4); Hematocrit 26.9 % (42.0-52.0); Hemoglobin 8.7 g/dL (14.0-18.0); Immature Granulocyte Absolute 0.02 K/mm3 (0.00-0.031); Lymphocytes Absolute Auto 0.26 K/mm3 (0.9-3.2); Lymphocytes Percent Auto 12.8 % (18.3-44.2); Mean Corpuscular HGB Conc 32.3 g/dl (32-36); Mean Corpuscular Hemoglobin 32.8 pg (26-34); Mean Corpuscular Volume 101.5 fl (80-100); Mean Platelet Volume 11.5 fl (7.4-10.4); Monocytes Absolute Auto 0.2 K/mm3 (0.1-0.6); Monocytes Percent Auto 11.8 % (2.6-8.5); Neutrophils Absolute Auto 1.5 K/mm3 (1.3-6.7); Neutrophils Percent Auto 71.4 % (45.5-73.1); Platelet Count Result 89 k/mm3 (150-375); Red Blood Count 2.65 M/mm3 (4.6-6.20); Red Cell Distribution Width 20.5 % (11.5-14.5)
[2024-01-31 15:52] LABS: Glucose Point of Care 125 mg/dl (65-105)
[2024-01-31] MEDS: SIMVASTATIN 20 MG TABLET PO (20:34)
[2024-01-31 20:43] LABS: Glucose Point of Care 171 mg/dl (65-105)
[2024-02-01] VITALS (17 sets, daily range): BP systolic 106–135; BP diastolic 46–64; PULSE 60–75; RESP 11–18; TEMP 36.1–36.7; O2SAT 95–100
[2024-02-01] MEDS: CENTRAL LINE FLUSH 10 ML IV PUSH ×3 (05:56→20:52)
[2024-02-01 08:46] LABS: Glucose Point of Care 138 mg/dl (65-105)
--- NOTE | 2024-02-01 10:47 | PM.IMPN ---
Progress Note: A&P Assessment and Plan (1) Altered mental status: Qualifiers: Altered mental status type: disorientation Qualified Code(s): R41.0 - Disorientation, unspecified Code(s): R41.82 - Altered mental status, unspecified Status: Acute (2) GI (gastrointestinal bleed): Code(s): K92.2 - Gastrointestinal hemorrhage, unspecified Status: Acute (3) Anemia: Code(s): D64.9 - Anemia, unspecified Status: Acute (4) Type 2 diabetes mellitus with hyperglycemia: Code(s): E11.65 - Type 2 diabetes mellitus with hyperglycemia Status: Acute (5) Hyponatremia: Code(s): E87.1 - Hypo-osmolality and hyponatremia Status: Acute (6) Hepatic encephalopathy: Code(s): K76.82 - Hepatic encephalopathy Status: Acute (7) Cirrhosis of liver with ascites: Code(s): K74.60 - Unspecified cirrhosis of liver; R18.8 - Other ascites Status: Acute Plan (1) GI (gastrointestinal bleed): ?Code(s): K92.2 - Gastrointestinal hemorrhage, unspecified ?Status:?Acute ?Assessment and Plan: - Hgb 6.3 - previously 7.1 on 01/28 - transfuse 2 units, recheck CBC post-transfusion - GI consulted, awaiting recs - pantoprazole IVP BID - continue Carafate 1G QID - EGD, previous (01/03/24): 1. Small grade 1 varcies (small, barely visible varices) were present in the distal esophagus.? The varices had 2 columns.? No signs of bleeding. 2. Moderate erosive gastritis was seen in the antrum.? The gastritis had moderate erythematous, edematous, and erosive changes.? No ulcer or gastric varix.? No mucosal bleeding.? Multiple biopsies taken. 3. The bulb and 2nd portion of duodenum were normal with no ulcers or masses. - colonoscopy, previous (01/03/24): Three 3-7 mm polyps observed in the ascending colon.? Multiple hot snare polypectomies done and polyps were completely excised.? Terminal ileum and colon were examined and were normal.? No colitis, no AVM, and no signs of bleeding.? ?small sized internal hemorrhoids were seen in the rectum.? Hemorrhoids were not actively bleeding. - trend blood counts - hold Eliquis and ASA 01/31: EGD was done, that showed small esophageal varices in the distal esophagus, without active bleeding (2) Anemia: ?Code(s): D64.9 - Anemia, unspecified ?Status:?Acute ?Assessment and Plan: - multifactorial: cirrhosis, GI bleed, B12 deficiency - see previous EGD and colonoscopy above - transfuse 2 units, recheck post - hematology/oncology consulted, awaiting recs - trend (3) Altered mental status: ?Qualifiers: ?Altered mental status type:?disorientation? Qualified Code(s):?R41.0 - Disorientation, unspecified ?Code(s): R41.82 - Altered mental status, unspecified ?Status:?Acute ?Assessment and Plan: - anemic w/Hgb of 6.3 - Head CT Normal aging brain. Trace right mastoid effusion. - UA: 3+ glucose, otherwise unremarkable - appears at baseline after fluids/transfusion started - neurochecks QShift (4) Lactic acidosis: ?Code(s): E87.20 - Acidosis, unspecified ?Status:?Acute ?Assessment and Plan: - lactic:? 5.3 -> 3.0 - lactic acidosis previously seen with GI bleed/anemia on 01/14 - likely multifactorial: poor hepatic clearance (cirrhosis hx) and tissue hypoperfusion (hypotension/anemia) - trend down (5) Cirrhosis of liver with ascites: ?Code(s): K74.60 - Unspecified cirrhosis of liver; R18.8 - Other ascites ?Status:?Acute ?Assessment and Plan: - previous hepatitis panel negative (01/04/24) - paracentesis hx (2023): 01/29: 2900 mL of cloudy yellow fluid. 01/15: 1550 mL of clear, yellow fluid. negative culture. 01/05: 3300 mL of yellow fluid. 01/03: 2200 mL of clear, yellow fluid. WBC seen, no organisms seen, no anaerobes. - continue Lasix 40 mg p.o. daily and Aldactone 100 mg p.o. daily - albumin 2.4, replete - albumin 25G Q6H x2. repeat in AM. - amm
[2024-02-01] MEDS: LACTATED RINGERS 1,000 ML 150 ML IV CONT (12:33)
[2024-02-01 12:35] LABS: Glucose Point of Care 116 mg/dl (65-105)
[2024-02-01] MEDS: PROPRANOLOL HCL 10 MG TABLET PO ×2 (13:52→20:51)
[2024-02-01] MEDS: rifAXIMin 550 MG TABLET PO ×2 (13:52→20:51)
[2024-02-01] MEDS: CHOLECALCIFEROL 1,000 UNITS TABLET 1000 UNITS PO (13:52)
[2024-02-01] MEDS: CYANOCOBALAMIN 1,000 MCG TABLET 1000 MCG PO (13:52)
[2024-02-01] MEDS: SUCRALFATE 1 GM TABLET PO ×3 (13:52→20:52)
[2024-02-01] MEDS: FERROUS SULFATE 325 MG TABLET DR PO ×2 (13:52→17:06)
[2024-02-01] MEDS: PANTOPRAZOLE SODIUM IV 40 MG VIAL IV PUSH ×2 (13:52→20:50)
[2024-02-01] MEDS: ACYCLOVIR 400 MG TABLET PO ×2 (13:52→20:51)
[2024-02-01] MEDS: FLUTICASONE PROPIONATE 0.05% NA SPR 16 GM BTL (*BKC) 2 SPRAY NASAL (13:53)
[2024-02-01] MEDS: EMPAGLIFLOZIN 25 MG TABLET PO (13:53)
[2024-02-01] MEDS: FUROSEMIDE 20 MG TABLET PO (13:53)
[2024-02-01] MEDS: LACTULOSE 20 GM/30 ML UDC PO (13:53)
[2024-02-01] MEDS: SPIRONOLACTONE 50 MG TABLET PO (13:53)
[2024-02-01 16:56] LABS: Eosinophils Percent Auto 1.6 % (0-4.4); Hematocrit 31.3 % (42.0-52.0); Hemoglobin 10.1 g/dL (14.0-18.0); Immature Granulocyte Absolute 0.02 K/mm3 (0.00-0.031); Immature Granulocyte Percent A 0.8 % (0-0.5); Lymphocytes Absolute Auto 0.21 K/mm3 (0.9-3.2); Lymphocytes Percent Auto 8.2 % (18.3-44.2); Mean Corpuscular HGB Conc 32.3 g/dl (32-36); Mean Corpuscular Hemoglobin 33.1 pg (26-34); Mean Corpuscular Volume 102.6 fl (80-100); Mean Platelet Volume 10.9 fl (7.4-10.4); Monocytes Absolute Auto 0.3 K/mm3 (0.1-0.6); Monocytes Percent Auto 9.7 % (2.6-8.5); Neutrophils Absolute Auto 2.1 K/mm3 (1.3-6.7); Neutrophils Percent Auto 79.7 % (45.5-73.1); Platelet Count Result 120 k/mm3 (150-375); Red Blood Count 3.05 M/mm3 (4.6-6.20); Red Cell Distribution Width 20.9 % (11.5-14.5); White Blood Count 2.6 K/mm3 (4.5-10.0)
[2024-02-01 17:07] LABS: Anion Gap 1 mmol/L (4-12); Blood Urea Nitrogen 15 mg/dL (9-20); Calcium 8.9 mg/dL (8.4-10.2); Carbon Dioxide 28 mmol/L (22-30); Chloride 101 mmol/L (98-107); Estimated CRCL calculation 55 ml/min; Estimated Glomerular Filt Rate > 60; Glucose 215 mg/dL (65-110); Potassium 3.8 mmol/L (3.4-5.0); Sodium 130 mmol/L (137-145)
[2024-02-01 19:44] LABS: Glucose Point of Care 191 mg/dl (65-105)
[2024-02-01 20:49] LABS: Glucose Point of Care 266 mg/dl (65-105)
[2024-02-01] MEDS: INSULIN ASPART (*BKC) 100 UNITS/ML SUB-Q (20:51)
[2024-02-01] MEDS: SIMVASTATIN 20 MG TABLET PO (20:52)
[2024-02-01] MEDS: ACETAMINOPHEN 325 MG TABLET 650 MG PO (20:52)
[2024-02-02] VITALS (13 sets, daily range): BP systolic 104–125; BP diastolic 48–60; PULSE 57–73; RESP 16–18; TEMP 36.3–36.6; O2SAT 96–100
[2024-02-02] MEDS: CENTRAL LINE FLUSH 10 ML IV PUSH ×2 (05:01→20:50)
[2024-02-02 05:21] LABS: Basophils Percent Auto 0.7 % (0.2-1.2); Eosinophils Absolute Auto 0.1 K/mm3 (0-0.3); Eosinophils Percent Auto 3.3 % (0-4.4); Hematocrit 25.7 % (42.0-52.0); Hemoglobin 8.2 g/dL (14.0-18.0); Immature Granulocyte Absolute 0.01 K/mm3 (0.00-0.031); Immature Granulocyte Percent A 0.7 % (0-0.5); Lymphocytes Absolute Auto 0.18 K/mm3 (0.9-3.2); Lymphocytes Percent Auto 11.9 % (18.3-44.2); Mean Corpuscular HGB Conc 31.9 g/dl (32-36); Mean Corpuscular Hemoglobin 32.7 pg (26-34); Mean Corpuscular Volume 102.4 fl (80-100); Mean Platelet Volume 10.5 fl (7.4-10.4); Monocytes Absolute Auto 0.3 K/mm3 (0.1-0.6); Monocytes Percent Auto 17.2 % (2.6-8.5); Neutrophils Percent Auto 66.2 % (45.5-73.1); Platelet Count Result 69 k/mm3 (150-375); Red Blood Count 2.51 M/mm3 (4.6-6.20); Red Cell Distribution Width 20.4 % (11.5-14.5)
[2024-02-02 05:27] LABS: White Blood Count 1.5 K/mm3 (4.5-10.0)
[2024-02-02 05:38] LABS: Anion Gap 0 mmol/L (4-12); Blood Urea Nitrogen 14 mg/dL (9-20); Calcium 8.4 mg/dL (8.4-10.2); Carbon Dioxide 29 mmol/L (22-30); Chloride 102 mmol/L (98-107); Estimated CRCL calculation 55 ml/min; Estimated Glomerular Filt Rate > 60; Glucose 153 mg/dL (65-110); Magnesium 1.9 mg/dL (1.6-2.3); Potassium 3.5 mmol/L (3.4-5.0); Sodium 131 mmol/L (137-145)
[2024-02-02 05:42] LABS: Anisocytosis 1+; Hypochromasia 1+; Microcytosis 1+ (NORMAL); Platelet Estimate Decreased (Adequate); Poikilocytosis 1+; Polychromasia 1+; Schistocytes None Seen
--- NOTE | 2024-02-02 06:58 | WPDANESPN ---
Anes - Prog Note Post-Op Date/Time: 02/02/24 06:58 Cardiovascular status: normal Respiratory status: normal Airway patency: baseline Mental status: baseline Post-Op hydration status: normal Vital Signs: Last Vital Signs Temp 36.4 C 02/02/24 04:55 Pulse 60 02/02/24 04:55 Resp 18 02/02/24 04:55 BP 115/56 L 02/02/24 04:55 Pulse Ox 97 02/02/24 04:55 O2 Del Method Room Air 02/01/24 13:28 Pain Score (VAS): 1 I/O: Intake & Output 02/01/24 02/01/24 02/02/24 15:59 23:59 07:59 Intake Total 72.5 1490 1100 Output Total 380 200 Balance -307.5 1490 900 Laboratory Tests 02/02/24 05:09 02/02/24 05:09 02/01/24 02/01/24 02/01/24 08:43 12:32 15:44 WBC RBC Hgb Hct MCV MCH MCHC RDW Plt Count MPV Immature Gran % (Auto) Neut % (Auto) Lymph % (Auto) [place] % (Auto) Eos % (Auto) Baso % (Auto) Lymph # (Auto) [place] # (Auto) Eos # (Auto) Baso # (Auto) Abs Immat Gran (auto) Absolute Neuts (auto) Absolute Nucleated RBC Nucleated RBC % Platelet Estimate Polychromasia Hypochromasia Poikilocytosis Anisocytosis Microcytosis Schistocytes Sodium Potassium Chloride Carbon Dioxide Anion Gap BUN Creatinine Estim Creat Clear Calc Estimated GFR Glucose POC Capillary Glucose 138 H 116 H 191 H Calcium Magnesium 02/01/24 02/01/24 02/02/24 16:51 20:45 05:09 WBC 2.6 L 1.5 L* RBC 3.05 L 2.51 L Hgb 10.1 L 8.2 L Hct 31.3 L 25.7 L MCV 102.6 H 102.4 H MCH 33.1 32.7 MCHC 32.3 31.9 L RDW 20.9 H 20.4 H Plt Count 120 L 69 L MPV 10.9 H 10.5 H Immature Gran % (Auto) 0.8 H 0.7 H Neut % (Auto) 79.7 H 66.2 Lymph % (Auto) 8.2 L 11.9 L [place] % (Auto) 9.7 H 17.2 H Eos % (Auto) 1.6 3.3 Baso % (Auto) 0.0 L 0.7 Lymph # (Auto) 0.21 L 0.18 L [place] # (Auto) 0.3 0.3 Eos # (Auto) 0.0 0.1 Baso # (Auto) 0.0 0.0 Abs Immat Gran (auto) 0.02 0.01 Absolute Neuts (auto) 2.1 1.0 L Absolute Nucleated RBC 0.000 0.000 Nucleated RBC % 0.0 0.0 Platelet Estimate Decreased Polychromasia 1+ Hypochromasia 1+ Poikilocytosis 1+ Anisocytosis 1+ Microcytosis 1+ Schistocytes None seen Sodium 130 L 131 L Potassium 3.8 3.5 Chloride 101 102 Carbon Dioxide 28 29 Anion Gap 1 L 0 L BUN 15 D 14 Creatinine 0.80 0.80 Estim Creat Clear Calc 55 55 Estimated GFR > 60 > 60 Glucose 215 H 153 H POC Capillary Glucose 266 H Calcium 8.9 8.4 Magnesium 1.9 Post-procedural complaints: none Patient Feedback: Patient satisfied with anesthetic care.
[2024-02-02 08:08] LABS: Glucose Point of Care 167 mg/dl (65-105)
[2024-02-02] MEDS: rifAXIMin 550 MG TABLET PO ×2 (08:20→20:48)
[2024-02-02] MEDS: PROPRANOLOL HCL 10 MG TABLET PO ×2 (08:20→20:48)
[2024-02-02] MEDS: ACYCLOVIR 400 MG TABLET PO ×2 (08:20→20:48)
[2024-02-02] MEDS: CYANOCOBALAMIN 1,000 MCG TABLET 1000 MCG PO (08:21)
[2024-02-02] MEDS: PANTOPRAZOLE SODIUM IV 40 MG VIAL IV PUSH ×2 (08:21→20:50)
[2024-02-02] MEDS: SUCRALFATE 1 GM TABLET PO ×4 (08:21→20:48)
[2024-02-02] MEDS: SPIRONOLACTONE 50 MG TABLET PO (08:22)
[2024-02-02] MEDS: LACTULOSE 20 GM/30 ML UDC PO (08:22)
[2024-02-02] MEDS: FERROUS SULFATE 325 MG TABLET DR PO ×2 (08:22→16:43)
[2024-02-02] MEDS: CHOLECALCIFEROL 1,000 UNITS TABLET 1000 UNITS PO (08:23)
[2024-02-02] MEDS: EMPAGLIFLOZIN 25 MG TABLET PO (08:23)
[2024-02-02] MEDS: FUROSEMIDE 20 MG TABLET PO (08:23)
[2024-02-02] MEDS: FLUTICASONE PROPIONATE 0.05% NA SPR 16 GM BTL (*BKC) 2 SPRAY NASAL (08:23)
--- NOTE | 2024-02-02 09:21 | PM.IMPN ---
Progress Note: A&P Assessment and Plan (1) Altered mental status: Qualifiers: Altered mental status type: disorientation Qualified Code(s): R41.0 - Disorientation, unspecified Code(s): R41.82 - Altered mental status, unspecified Status: Acute (2) GI (gastrointestinal bleed): Code(s): K92.2 - Gastrointestinal hemorrhage, unspecified Status: Acute (3) Anemia: Code(s): D64.9 - Anemia, unspecified Status: Acute (4) Type 2 diabetes mellitus with hyperglycemia: Code(s): E11.65 - Type 2 diabetes mellitus with hyperglycemia Status: Acute (5) Hyponatremia: Code(s): E87.1 - Hypo-osmolality and hyponatremia Status: Acute (6) Hepatic encephalopathy: Code(s): K76.82 - Hepatic encephalopathy Status: Acute (7) Cirrhosis of liver with ascites: Code(s): K74.60 - Unspecified cirrhosis of liver; R18.8 - Other ascites Status: Acute Plan (1) GI (gastrointestinal bleed): ?Code(s): K92.2 - Gastrointestinal hemorrhage, unspecified ?Status:?Acute ?Assessment and Plan: - Hgb 6.3 - previously 7.1 on 01/28 - transfuse 2 units, recheck CBC post-transfusion - GI consulted, awaiting recs - pantoprazole IVP BID - continue Carafate 1G QID - EGD, previous (01/03/24): 1. Small grade 1 varcies (small, barely visible varices) were present in the distal esophagus.? The varices had 2 columns.? No signs of bleeding. 2. Moderate erosive gastritis was seen in the antrum.? The gastritis had moderate erythematous, edematous, and erosive changes.? No ulcer or gastric varix.? No mucosal bleeding.? Multiple biopsies taken. 3. The bulb and 2nd portion of duodenum were normal with no ulcers or masses. - colonoscopy, previous (01/03/24): Three 3-7 mm polyps observed in the ascending colon.? Multiple hot snare polypectomies done and polyps were completely excised.? Terminal ileum and colon were examined and were normal.? No colitis, no AVM, and no signs of bleeding.? ?small sized internal hemorrhoids were seen in the rectum.? Hemorrhoids were not actively bleeding. - trend blood counts - hold Eliquis and ASA 01/31: EGD was done, that showed small esophageal varices in the distal esophagus, without active bleeding (2) Anemia: ?Code(s): D64.9 - Anemia, unspecified ?Status:?Acute ?Assessment and Plan: - multifactorial: cirrhosis, GI bleed, B12 deficiency - see previous EGD and colonoscopy above - transfuse 2 units, recheck post - hematology/oncology consulted, no obvious bleeding but Hb trend down (3) Altered mental status: ?Qualifiers: ?Altered mental status type:?disorientation? Qualified Code(s):?R41.0 - Disorientation, unspecified ?Code(s): R41.82 - Altered mental status, unspecified ?Status:?Acute ?Assessment and Plan: - anemic w/Hgb of 6.3 - Head CT Normal aging brain. Trace right mastoid effusion. - UA: 3+ glucose, otherwise unremarkable - appears at baseline after fluids/transfusion started - neurochecks now resolves (4) Lactic acidosis: ?Code(s): E87.20 - Acidosis, unspecified ?Status:?Acute ?Assessment and Plan: - lactic:? 5.3 -> 3.0 - lactic acidosis previously seen with GI bleed/anemia on 01/14 - likely multifactorial: poor hepatic clearance (cirrhosis hx) and tissue hypoperfusion (hypotension/anemia) - trend down (5) Cirrhosis of liver with ascites: ?Code(s): K74.60 - Unspecified cirrhosis of liver; R18.8 - Other ascites ?Status:?Acute ?Assessment and Plan: - previous hepatitis panel negative (01/04/24) - paracentesis hx (2023): 01/29: 2900 mL of cloudy yellow fluid. 01/15: 1550 mL of clear, yellow fluid. negative culture. 01/05: 3300 mL of yellow fluid. 01/03: 2200 mL of clear, yellow fluid. WBC seen, no organisms seen, no anaerobes. - continue Lasix 40 mg p.o. daily and Aldactone 100 mg p.o. daily - albumin 2.4, replete - albumin 25G Q6
--- NOTE | 2024-02-02 10:28 | PC.NURSE ---
Attempted to update spouse via telephone.
--- NOTE | 2024-02-02 10:33 | PC.NURSE ---
Updated spouse via telephone.
--- NOTE | 2024-02-02 10:50 | WPDGIPROGNO ---
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) call if questions (2) Cirrhosis of liver with ascites: Code(s): K74.60 - Unspecified cirrhosis of liver; R18.8 - Other ascites Status: Acute Assessment and Plan: he can follow-up in our office (3) Hepatic encephalopathy: Code(s): K76.82 - Hepatic encephalopathy Status: Acute Assessment and Plan: on treatment (4) Non Hodgkin's lymphoma: Code(s): C85.90 - Non-Hodgkin lymphoma, unspecified, unspecified site Status: Acute Assessment and Plan: by oncology (5) Erosive gastritis: Code(s): K29.60 - Other gastritis without bleeding Status: Acute Assessment and Plan: no gastritis in egd yesterday on ppi (6) Type 2 diabetes mellitus with hyperglycemia, without long-term current use of insulin: Code(s): E11.65 - Type 2 diabetes mellitus with hyperglycemia Status: Acute Subjective Date/time seen: 02/02/24 10:50 Interval history: egd without signs of bleeding he is comfortable Review of Systems Review of Systems: All systems reviewed & are unremarkable except as noted in HPI and below Exam Const: General: comfortable and no acute distress HENMT: Face/Nose/Sinus: Normal nares present Eyes: General: appearance normal, both eyes and all related structures Neck: Neck: no JVD Resp: Auscultation: clear to auscultation bilaterally Cardio: Rate: regular rate Rhythm: regular rhythm Heart sounds: Murmur heart sound present GI: Inspection: non-distended GI Palp: Yes Soft to palpation Auscultation: normal bowel sounds Skin: Other: pallor Neuro: General: gait normal Speech: normal speech Extrem: General: normal to inspection Psych: Mental Status: mental status grossly normal Affect: normal affect Objective Data Vital Signs Vital Signs: Vital Signs - 24 hr 02/01/24 11:54 02/01/24 12:13 02/01/24 12:00 Temperature 97.6 F 98.0 F Pulse Rate 60 60 75 Respiratory Rate 12 16 Blood Pressure 111/53 L 135/52 L Pulse Oximetry 98 100 Oxygen Delivery Room Air 02/01/24 13:08 02/01/24 13:18 02/01/24 13:28 Temperature Pulse Rate 60 60 60 Respiratory Rate 17 18 18 Blood Pressure 132/64 132/64 132/64 Pulse Oximetry 99 99 98 Oxygen Delivery Room Air Room Air Room Air 02/01/24 15:39 02/01/24 16:00 02/01/24 20:38 Temperature 97.9 F 97.0 F L Pulse Rate 60 60 70 Respiratory Rate 12 18 Blood Pressure 124/51 L 107/50 L Pulse Oximetry 98 98 Oxygen Delivery 02/01/24 20:51 02/02/24 00:10 02/01/24 20:00 Temperature 97.7 F Pulse Rate 70 60 71 Respiratory Rate 18 Blood Pressure 117/51 L Pulse Oximetry 96 Oxygen Delivery 02/02/24 00:00 02/02/24 04:55 02/02/24 04:00 Temperature 97.6 F Pulse Rate 71 60 60 Respiratory Rate 18 Blood Pressure 115/56 L Pulse Oximetry 97 Oxygen Delivery 02/02/24 08:00 02/02/24 08:20 02/02/24 08:00 Temperature 97.6 F Pulse Rate 60 60 Respiratory Rate 18 Blood Pressure 121/60 Pulse Oximetry 98 98 Oxygen Delivery Room Air 02/02/24 08:00 Temperature Pulse Rate 73 Respiratory Rate Blood Pressure Pulse Oximetry Oxygen Delivery Intake/Output Intake/Output: Intake & Output 01/30/24 01/31/24 02/01/24 02/02/24 23:59 23:59 23:59 23:59 Intake Total 3398 511 0188.5 1340 Output Total 400 1500 680 200 Balance 633 -800 1432.5 1140 Meds/Results Medications: Active Medications Generic Name Dos
[2024-02-02] MEDS: INSULIN ASPART (*BKC) 100 UNITS/ML SUB-Q ×3 (11:42→20:50)
[2024-02-02 11:59] LABS: Glucose Point of Care 280 mg/dl (65-105)
[2024-02-02 15:56] LABS: Glucose Point of Care 228 mg/dl (65-105)
[2024-02-02 20:13] LABS: Glucose Point of Care 276 mg/dl (65-105)
[2024-02-02] MEDS: SIMVASTATIN 20 MG TABLET PO (20:48)
[2024-02-02] MEDS: ACETAMINOPHEN 325 MG TABLET 650 MG PO (21:00)
[2024-02-03] VITALS: PULSE 60
[2024-02-03 04:00] VITALS: BP 117/60; PULSE 60; PULSE 67; RESP 16; TEMP 36.9; O2SAT 100
[2024-02-03 05:25] LABS: Basophils Percent Auto 0.5 % (0.2-1.2); Eosinophils Absolute Auto 0.1 K/mm3 (0-0.3); Eosinophils Percent Auto 4.2 % (0-4.4); Hematocrit 25.7 % (42.0-52.0); Hemoglobin 8.4 g/dL (14.0-18.0); Immature Granulocyte Absolute 0.01 K/mm3 (0.00-0.031); Immature Granulocyte Percent A 0.5 % (0-0.5); Immature Platelet Fraction Pct 3.9 % (0.9-11.2); Lymphocytes Absolute Auto 0.17 K/mm3 (0.9-3.2); Lymphocytes Percent Auto 8.9 % (18.3-44.2); Mean Corpuscular HGB Conc 32.7 g/dl (32-36); Mean Corpuscular Hemoglobin 33.3 pg (26-34); Mean Platelet Volume 10.5 fl (7.4-10.4); Monocytes Absolute Auto 0.3 K/mm3 (0.1-0.6); Monocytes Percent Auto 13.5 % (2.6-8.5); Neutrophils Absolute Auto 1.4 K/mm3 (1.3-6.7); Neutrophils Percent Auto 72.4 % (45.5-73.1); Platelet Count Result 79 k/mm3 (150-375); Red Blood Count 2.52 M/mm3 (4.6-6.20); Red Cell Distribution Width 20.2 % (11.5-14.5)
[2024-02-03 05:35] LABS: Anion Gap -1 mmol/L (4-12); Blood Urea Nitrogen 9 mg/dL (9-20); Calcium 8.2 mg/dL (8.4-10.2); Carbon Dioxide 30 mmol/L (22-30); Chloride 101 mmol/L (98-107); Estimated CRCL calculation 55 ml/min; Estimated Glomerular Filt Rate > 60; Glucose 167 mg/dL (65-110); Potassium 3.4 mmol/L (3.4-5.0); Sodium 130 mmol/L (137-145)
[2024-02-03 05:44] LABS: White Blood Count 1.9 K/mm3 (4.5-10.0)
[2024-02-03 05:45] LABS: Anisocytosis 1+; Platelet Estimate Decreased (Adequate)
[2024-02-03 05:46] LABS: Schistocytes Rare
[2024-02-03 08:00] VITALS: BP 115/55; PULSE 60; RESP 16; TEMP 36.9; O2SAT 97
[2024-02-03 09:33] LABS: Glucose Point of Care 175 mg/dl (65-105)
[2024-02-03] MEDS: LACTULOSE 20 GM/30 ML UDC PO (10:02)
[2024-02-03 10:03] VITALS: PULSE 61
[2024-02-03] MEDS: PROPRANOLOL HCL 10 MG TABLET PO (10:03)
[2024-02-03] MEDS: PANTOPRAZOLE SODIUM IV 40 MG VIAL IV PUSH (10:03)
[2024-02-03] MEDS: rifAXIMin 550 MG TABLET PO (10:03)
[2024-02-03] MEDS: CYANOCOBALAMIN 1,000 MCG TABLET 1000 MCG PO (10:04)
[2024-02-03] MEDS: FUROSEMIDE 20 MG TABLET PO (10:04)
[2024-02-03] MEDS: ACYCLOVIR 400 MG TABLET PO (10:04)
[2024-02-03] MEDS: SUCRALFATE 1 GM TABLET PO (10:04)
[2024-02-03] MEDS: CHOLECALCIFEROL 1,000 UNITS TABLET 1000 UNITS PO (10:04)
[2024-02-03] MEDS: EMPAGLIFLOZIN 25 MG TABLET PO (10:04)
[2024-02-03] MEDS: FERROUS SULFATE 325 MG TABLET DR PO (10:04)
[2024-02-03] MEDS: SPIRONOLACTONE 50 MG TABLET PO (10:04)
[2024-02-03] MEDS: CENTRAL LINE FLUSH 10 ML IV PUSH (10:05)
--- NOTE | 2024-02-03 10:12 | PM.IMPN ---
Progress Note: A&P Assessment and Plan (1) Altered mental status: Qualifiers: Altered mental status type: disorientation Qualified Code(s): R41.0 - Disorientation, unspecified Code(s): R41.82 - Altered mental status, unspecified Status: Acute (2) GI (gastrointestinal bleed): Code(s): K92.2 - Gastrointestinal hemorrhage, unspecified Status: Acute (3) Anemia: Code(s): D64.9 - Anemia, unspecified Status: Acute (4) Type 2 diabetes mellitus with hyperglycemia: Code(s): E11.65 - Type 2 diabetes mellitus with hyperglycemia Status: Acute (5) Hyponatremia: Code(s): E87.1 - Hypo-osmolality and hyponatremia Status: Acute (6) Hepatic encephalopathy: Code(s): K76.82 - Hepatic encephalopathy Status: Acute (7) Cirrhosis of liver with ascites: Code(s): K74.60 - Unspecified cirrhosis of liver; R18.8 - Other ascites Status: Acute Plan (1) GI (gastrointestinal bleed): ?Code(s): K92.2 - Gastrointestinal hemorrhage, unspecified ?Status:?Acute ?Assessment and Plan: - Hgb 6.3 - previously 7.1 on 01/28 - transfuse 2 units, recheck CBC post-transfusion - GI consulted, awaiting recs - pantoprazole IVP BID - continue Carafate 1G QID - EGD, previous (01/03/24): 1. Small grade 1 varcies (small, barely visible varices) were present in the distal esophagus.? The varices had 2 columns.? No signs of bleeding. 2. Moderate erosive gastritis was seen in the antrum.? The gastritis had moderate erythematous, edematous, and erosive changes.? No ulcer or gastric varix.? No mucosal bleeding.? Multiple biopsies taken. 3. The bulb and 2nd portion of duodenum were normal with no ulcers or masses. - colonoscopy, previous (01/03/24): Three 3-7 mm polyps observed in the ascending colon.? Multiple hot snare polypectomies done and polyps were completely excised.? Terminal ileum and colon were examined and were normal.? No colitis, no AVM, and no signs of bleeding.? ?small sized internal hemorrhoids were seen in the rectum.? Hemorrhoids were not actively bleeding. - trend blood counts - hold Eliquis and ASA 01/31: EGD was done, that showed small esophageal varices in the distal esophagus, without active bleeding 02/02: Hemoglobin stable, persist GI consultation, GI considers leukopenia likely secondary to lymphoma, (2) Anemia: ?Code(s): D64.9 - Anemia, unspecified ?Status:?Acute ?Assessment and Plan: - multifactorial: cirrhosis, GI bleed, B12 deficiency - see previous EGD and colonoscopy above - transfuse 2 units, recheck post - hematology/oncology consulted, Hemoglobin stable. Possible secondary to lymphoma Patient will see heme oncologist saw patient (3) Altered mental status: ?Qualifiers: ?Altered mental status type:?disorientation? Qualified Code(s):?R41.0 - Disorientation, unspecified ?Code(s): R41.82 - Altered mental status, unspecified ?Status:?Acute ?Assessment and Plan: - anemic w/Hgb of 6.3 - Head CT Normal aging brain. Trace right mastoid effusion. - UA: 3+ glucose, otherwise unremarkable - appears at baseline after fluids/transfusion started - neurochecks now resolves (4) Lactic acidosis: ?Code(s): E87.20 - Acidosis, unspecified ?Status:?Acute ?Assessment and Plan: - lactic:? 5.3 -> 3.0 - lactic acidosis previously seen with GI bleed/anemia on 01/14 - likely multifactorial: poor hepatic clearance (cirrhosis hx) and tissue hypoperfusion (hypotension/anemia) -resolves (5) Cirrhosis of liver with ascites: ?Code(s): K74.60 - Unspecified cirrhosis of liver; R18.8 - Other ascites ?Status:?Acute ?Assessment and Plan: - previous hepatitis panel negative (01/04/24) - paracentesis hx (2023): 01/29: 2900 mL of cloudy yellow fluid. 01/15: 1550 mL of clear, yellow fluid. negative culture. 01/05: 3300 mL of yellow fluid. 01/03: 2200 mL of clear, yel
--- NOTE | 2024-02-03 10:18 | PM.DS ---
DS: Admitting Diagnosis Discharge Date 02/03/24 Admitting Diagnosis (1) Altered mental status: ?Qualifiers: ?Altered mental status type:?disorientation? Qualified Code(s):?R41.0 - Disorientation, unspecified ?Code(s): R41.82 - Altered mental status, unspecified ?Status:?Acute (2) GI (gastrointestinal bleed): ?Code(s): K92.2 - Gastrointestinal hemorrhage, unspecified ?Status:?Acute (3) Anemia: ?Code(s): D64.9 - Anemia, unspecified ?Status:?Acute (4) Type 2 diabetes mellitus with hyperglycemia: ?Code(s): E11.65 - Type 2 diabetes mellitus with hyperglycemia ?Status:?Acute (5) Hyponatremia: ?Code(s): E87.1 - Hypo-osmolality and hyponatremia ?Status:?Acute (6) Hepatic encephalopathy: ?Code(s): K76.82 - Hepatic encephalopathy ?Status:?Acute (7) Cirrhosis of liver with ascites: ?Code(s): K74.60 - Unspecified cirrhosis of liver; R18.8 - Other ascites ?Status:?Acute DS: Discharge Diagnosis Discharge Diagnosis (1) Altered mental status: Qualifiers: Altered mental status type: disorientation Qualified Code(s): R41.0 - Disorientation, unspecified Code(s): R41.82 - Altered mental status, unspecified Status: Acute (2) GI (gastrointestinal bleed): Code(s): K92.2 - Gastrointestinal hemorrhage, unspecified Status: Acute (3) Anemia: Code(s): D64.9 - Anemia, unspecified Status: Acute (4) Type 2 diabetes mellitus with hyperglycemia: Code(s): E11.65 - Type 2 diabetes mellitus with hyperglycemia Status: Acute (5) Hyponatremia: Code(s): E87.1 - Hypo-osmolality and hyponatremia Status: Acute (6) Hepatic encephalopathy: Code(s): K76.82 - Hepatic encephalopathy Status: Acute (7) Cirrhosis of liver with ascites: Code(s): K74.60 - Unspecified cirrhosis of liver; R18.8 - Other ascites Status: Acute DS: Summary Hospital Course Hospital Course: Per H&P, 78 y/o M presents here with AMS with PMH of Sánchez's esophagus, liver cirrhosis, vit B12 deficiency, multifactorial anemia, gastritis, HTN, paroxysmal AFib, DM2, and B cell lymphoma diagnosed in Dec 2022 (completed radiation in 10/2023, not on maintenance chemo).Patient presents here with altered mental status that began yesterday. Arrived A/Ox2, unable to provide correct month or year. Patient denies any abdominal pain, chest pain, focal weakness, N/V/D. Increased belching. Stool are dark, ongoing. Has had multiple admissions in the last month: 01/14-01/19 for generalized weakness, intermittent abdominal bloating and discomfort, and anemia and -01/05 for symptomatic anemia, Hemoccult-positive stools, and COVID. Also seen on 01/23 for N/V/D but was ultimately discharged - no BRB per rectum and Hgb was stable. Last EGD done on 01/03/24 which showed? small grade 1 varices in the distal esophagus without signs of bleeding, moderate erosive gastritis without bleeding, no ulcers, no masses. Typically needs a paracentesis every few weeks but has had four in the last month. Hgb was Currently reporting improvement (i.e. weakness) with initiation of blood transfusion and feels less foggy .? No other complaints this time. Initial VS at presentation:? 97.8? F, HR 60, RR 15, 115/45, and 100% on RA. ED workup showed: WBC 3.6, Hgb 6.3, MCV 105.1, MCHC 30.7, INR 1.8, Na 133, creatinine 0.9, glucose 209, lactic acid 5.3, and UA not suggestive of UTI.? Head CT showed normal aging brain.? CXR showed no acute cardiopulmonary disease.? Paracentesis done yielding 2900 mL of cloudy yellow fluid. The following med issues have been addressed during hospitalization (1) GI (gastrointestinal bleed): ?Code(s): K92.2 - Gastrointestinal hemorrhage, unspecified ?Status:?Acute ?Assessment and Plan: - Hgb 6.3 - previously 7.1 on 01/28 - transfuse 2 units, recheck CBC post-transfusion - GI consulted, awaiting recs - pantopr
== END 2024-02-03 13:50 | disposition home or self-care (01) | DRG 433 ==
LOC: ANHED 13:57 → ANHIMU 15:18
PROVIDERS: Internal Medicine; Internal Medicine Gastroenterology; Radiology Diagnostic Radiology; Student in an Organized Health Care Education/Training Program; Admitting Provider Family Medicine; Emergency Provider Emergency Medicine; PCP Internal Medicine; Visit Provider Hospitalist
PROC: 0DJ08ZZ Inspection of Upper Intestinal Tract, Via Natural or Artificial Opening Endoscopic (ICD-10-PCS; CPT 43235; principal; 2024-02-01 15:00)
DX: K74.60 Unspecified cirrhosis of liver (principal); C82.90 Follicular lymphoma, unspecified, unspecified site; D61.818 Other pancytopenia; E87.20 Acidosis, unspecified; R18.8 Other ascites; E87.1 Hypo-osmolality and hyponatremia; I85.10 Secondary esophageal varices without bleeding; I48.0 Paroxysmal atrial fibrillation; I95.9 Hypotension, unspecified; K76.82 Hepatic encephalopathy; K75.9 Inflammatory liver disease, unspecified; K21.9 Gastro-esophageal reflux disease without esophagitis; E53.8 Deficiency of other specified B group vitamins; E78.5 Hyperlipidemia, unspecified; E11.9 Type 2 diabetes mellitus without complications; D50.9 Iron deficiency anemia, unspecified; J44.9 Chronic obstructive pulmonary disease, unspecified; H91.90 Unspecified hearing loss, unspecified ear; Z79.01 Long term (current) use of anticoagulants; Z95.810 Presence of automatic (implantable) cardiac defibrillator; Z79.82 Long term (current) use of aspirin; Z87.891 Personal history of nicotine dependence; Z92.3 Personal history of irradiation
CPT/HCPCS: 36415; 36430; 38222; 49083; 70450; 71045; 80048; 80053; 81003; 82140; 82948; 83605; 83735; 84100; 85014; 85018; 85025; 85055; 85610; 85730; 86850; 86900; 86901; 86923; 87040; 87637; 88104; 88108; 88305; 88311; 88313; 88342; 88360; 88364; 88365; 93005; 99285; A9270; C9113; J1642; J1815; J2001; J2250; J2704; J3010; J7040; J7050; J7120; P9016; P9047

== ENCOUNTER 2024-03-11 09:13 | Outpatient (CLI) | payer OTHER, SELFPAY ==
--- NOTE | ~2024-03-11 | PE_ITS ---
EXAMINATION: PET skull to mid thigh DATE: 03/11/2024 11:23 INDICATION: Multiple myeloma TECHNIQUE: Blood glucose level was 124 mg/dL. 9.802 mCi of 18-fluorodeoxyglucose (18-FDG) was adminis tered i.v. Low dose computed tomography (CT) images were acquired from the base of the brain to the p roximal thighs for attenuation correction and anatomic localization. Positron emission tomography (PE T) images were acquired in the same distribution beginning 52 minutes after injection. Images includi ng fused PET/CT images were reconstructed in axial, coronal, and sagittal planes. Automated exposure control technique was employed. The dose-length product was 868.09mGy-cm. COMPARISON: CT dated 01/15/2024 FINDINGS: Head/neck: There is symmetric increased activity in the oral cavity and ocular muscles without CT correlate, lik suleiman physiologic. No pathologically enlarged cervical lymphadenopathy or suspicious foci of increased FDG uptake in the visualized head or neck. Chest: Small posterior layering left pleural effusion with dependent passive atelectasis in the left lower l obe. Discoid atelectasis in the right lower lobe. Calcified mediastinal and left hilar and infrahilar lymph nodes consistent with old granulomatous disease. No pathologically enlarged or FDG avid thorac ic lymphadenopathy. Heart size is normal. Atherosclerotic coronary artery calcifications and aortic v alve calcification. No pericardial effusion. Dual-lead cardiac pacemaker with lead tips at the right atrial appendage and at the apex of the right ventricle. Abdomen/pelvis/proximal thighs: There is a nodular cirrhotic liver. Normal degree and heterogenous pattern of increased uptake throug hout the liver without radiologic correlate or dominant FDG avid lesion. Multiple splenic calcificati ons and a few tiny hepatic calcific lesions consistent with old granulomatous disease. Gallbladder, p ancreas, bilateral adrenal glands and right kidney are normal. Physiologic renal accumulation and exc retion of FDG activity in the kidneys, bladder and along portions of ureters.3 mm parenchymal calcifi cation versus peripheral nonobstructing stone at the left kidney. Mild to moderate uptake scattered t hroughout the bowels without radiologic correlate, also likely physiologic. Again seen is subtle incr eased density surrounding the bowel loops and vasculature at the central mesentery which is difficult to distinguish from the adjacent ascites and which remains without evident increased FDG uptake. Pro statomegaly. There is a large amount of ascites scattered throughout the abdomen and pelvis. No other abnormal foci of increased FDG uptake or pathologically enlarged lymphadenopathy in the abdomen, pel vis or proximal thighs. Musculoskeletal: There is a beaded string pattern of likely lymphatic uptake in the right forearm related to extravasa tion at the site of injection. No suspicious lytic, blastic or FDG avid bone lesions. C4-C6 anterior spinal fusion with anterior plate and screw fixation. L5 spondylolysis with bilateral pars intra-sandra cular is defects and 4 mm anterolisthesis on S1. Severe lower cervical and lower lumbar spondylosis. IMPRESSION: 1. No appreciable change in a poorly defined soft tissue density situated amongst the bowel loops and vasculature of the central small bowel mesentery which is difficult to distinguish from the surround ing large pleural effusion and which remains without increased FDG uptake likely related to reported history of prior non-Hodgkin's lymphoma. No FDG avid lesions suspicious for primary or metastatic dis ease. 2. Cirrhotic liver with large amount of ascites. 3. 3 mm parenchymal calcification versus nonobstructing stone at the left kidney. 4. Prostatomegaly. Reviewed, dictated and finalized at location A. C
--- NOTE | ~2024-03-11 | US_ITS ---
EXAMINATION: US paracentesis abd w/image DATE: 03/11/2024 11:22 INDICATION: Ascites. TECHNIQUE: The procedure and its risks and benefits were discussed with the patient. Potential risks discussed included bleeding and infection. The skin was prepped and draped in sterile fashion. 1% lid ocaine was used for local anesthesia. Under ultrasound guidance, a 5 Fr catheter with trochar was adv anced into the ascites in the right lower quadrant. Fluid was aspirated into vacuum bottles. The cath eter was removed, and a dressing was applied. There were no immediate complications. FINDINGS: Ultrasound images demonstrate ascites and the catheter within the fluid. IMPRESSION: 1. Successful ultrasound-guided paracentesis yielding 3300 mL of dark sim-colored fluid. Reviewed, dictated and finalized at location A. IMPRESSION: 1. Successful ultrasound-guided paracentesis yielding 3300 mL of dark sim-co lored fluid.
[2024-03-11 09:40] LABS: Glucose Point of Care 124 mg/dl (65-105)
== END 2024-03-11 09:14 | disposition home or self-care (01) ==
LOC: ANHIMG 09:16
PROVIDERS: PCP Internal Medicine; Visit Provider Internal Medicine Hematology & Oncology
DX: C90.00 Multiple myeloma not having achieved remission (principal); C85.93 Non-Hodgkin lymphoma, unspecified, intra-abdominal lymph nodes; N40.0 Benign prostatic hyperplasia without lower urinary tract symptoms; K74.60 Unspecified cirrhosis of liver; R18.8 Other ascites
CPT/HCPCS: 49083; 78815; A9552

== ENCOUNTER 2024-04-22 11:20 | Outpatient (CLI) | payer OTHER, SELFPAY ==
[2024-04-22 12:02] LABS: Basophils Percent Auto 0.4 % (0.2-1.2); Eosinophils Absolute Auto 0.2 K/mm3 (0-0.3); Eosinophils Percent Auto 6.1 % (0-4.4); Hematocrit 33.4 % (42.0-52.0); Hemoglobin 10.3 g/dL (14.0-18.0); Immature Granulocyte Absolute 0.01 K/mm3 (0.00-0.031); Immature Granulocyte Percent A 0.4 % (0-0.5); Lymphocytes Absolute Auto 0.29 K/mm3 (0.9-3.2); Lymphocytes Percent Auto 10.4 % (18.3-44.2); Mean Corpuscular HGB Conc 30.8 g/dl (32-36); Mean Corpuscular Hemoglobin 29.9 pg (26-34); Mean Corpuscular Volume 96.8 fl (80-100); Mean Platelet Volume 11.2 fl (7.4-10.4); Monocytes Absolute Auto 0.4 K/mm3 (0.1-0.6); Monocytes Percent Auto 13.7 % (2.6-8.5); Neutrophils Absolute Auto 1.9 K/mm3 (1.3-6.7); Platelet Count Result 141 k/mm3 (150-375); Red Blood Count 3.45 M/mm3 (4.6-6.20); White Blood Count 2.8 K/mm3 (4.5-10.0)
[2024-04-22 12:18] LABS: Iron 47 ug/dL (49-181)
[2024-04-22 12:33] LABS: Percent Iron Saturation 19 % (20-50)
== END 2024-04-22 11:21 | disposition home or self-care (01) ==
LOC: ANHLAB 11:24
PROVIDERS: PCP Internal Medicine; Visit Provider Internal Medicine Hematology & Oncology
DX: D64.9 Anemia, unspecified (principal)
CPT/HCPCS: 36415; 82728; 83540; 83550; 85025

== ENCOUNTER 2024-06-18 10:42 | Outpatient (RCR) | payer OTHER, SELFPAY ==
[2024-03-25 10:01] LABS: INR 1.2; Prothrombin Time 15.4 Seconds (11.1-14.7)
[2024-05-20 13:41] LABS: Mean Platelet Volume 10.9 fl (7.4-10.4); Platelet Count Result 166 k/mm3 (150-375)
[2024-05-20 13:53] LABS: INR 1.2; Prothrombin Time 15.6 Seconds (11.1-14.7)
--- NOTE | ~2024-06-18 | US_ITS ---
EXAMINATION: US paracentesis abd w/image DATE: 04/22/2024 12:41 INDICATION: Ascites. TECHNIQUE: The procedure and its risks and benefits were discussed with the patient. Potential risks discussed included bleeding and infection. The skin was prepped and draped in sterile fashion. 1% lid ocaine was used for local anesthesia. Under ultrasound guidance, a 5 Fr catheter with trochar was adv anced into the ascites in the left lower quadrant. Fluid was aspirated into vacuum bottles. The laquita ter was removed, and a dressing was applied. There were no immediate complications. FINDINGS: Ultrasound images demonstrate ascites and the catheter within the fluid. IMPRESSION: 1. Successful ultrasound-guided paracentesis yielding 2700 mL of yellow fluid. Reviewed, dictated and finalized at location A.
--- NOTE | ~2024-06-18 | US_ITS ---
EXAMINATION: US paracentesis abd w/image DATE: 05/06/2024 13:39 INDICATION: Lymphoma. Ascites. TECHNIQUE: The procedure and its risks, benefits, and alternatives were discussed with the patient. P otential risks discussed included bleeding and infection. The skin was prepped and draped in sterile fashion. 1% lidocaine was used for local anesthesia. Under ultrasound guidance, a 5 Fr catheter with trochar was advanced into the ascites in the right lower quadrant. Fluid was aspirated. The catheter was removed, and a dressing was applied. There were no immediate complications. FINDINGS: Ultrasound images demonstrate ascites and the catheter within the fluid. IMPRESSION: 1. Successful ultrasound-guided paracentesis yielding 4900 mL of yellow fluid. Reviewed, dictated and finalized at location A.
--- NOTE | ~2024-06-18 | US_ITS ---
EXAMINATION: US paracentesis abd w/image DATE: 06/03/2024 13:46 INDICATION: Ascites. TECHNIQUE: The procedure and its risks, benefits, and alternatives were discussed with the patient. P otential risks discussed included bleeding and infection. The skin was prepped and draped in sterile fashion. 1% lidocaine was used for local anesthesia. Under ultrasound guidance, a 5 Fr catheter with trochar was advanced into the ascites in the left lower quadrant. Fluid was aspirated. The catheter w as removed, and a dressing was applied. There were no immediate complications. FINDINGS: Ultrasound images demonstrate ascites and the catheter within the fluid. IMPRESSION: 1. Successful ultrasound-guided paracentesis yielding 5000 mL of yellow fluid. Reviewed, dictated and finalized at location A.
--- NOTE | ~2024-06-18 | US_ITS ---
EXAMINATION: US paracentesis abd w/image DATE: 05/20/2024 15:11 INDICATION: Ascites. TECHNIQUE: The procedure and its risks and benefits were discussed with the patient. Potential risks discussed included bleeding and infection. The skin was prepped and draped in sterile fashion. 1% lid ocaine was used for local anesthesia. Under ultrasound guidance, a 5 Fr catheter with trochar was adv anced into the ascites in the right lower quadrant. Fluid was aspirated into vacuum bottles. The cath eter was removed, and a dressing was applied. There were no immediate complications. FINDINGS: Ultrasound images demonstrate ascites and the catheter within the fluid. IMPRESSION: 1. Successful ultrasound-guided paracentesis yielding 5000 mL of light yellow fluid. Reviewed, dictated and finalized at location A.
--- NOTE | ~2024-06-18 | US_ITS ---
EXAMINATION: US paracentesis abd w/image DATE: 03/25/2024 10:41 INDICATION: Ascites. TECHNIQUE: The procedure and its risks, benefits, and alternatives were discussed with the patient. P otential risks discussed included bleeding and infection. The skin was prepped and draped in sterile fashion. 1% lidocaine was used for local anesthesia. Under ultrasound guidance, a 5 Fr catheter with trochar was advanced into the ascites in the right lower quadrant. Fluid was aspirated. The catheter was removed, and a dressing was applied. There were no immediate complications. FINDINGS: Ultrasound images demonstrate ascites and the catheter within the fluid. IMPRESSION: 1. Successful ultrasound-guided paracentesis yielding 3650 mL of clear, yellow fluid. Reviewed, dictated and finalized at location A.
--- NOTE | ~2024-06-18 | US_ITS ---
EXAMINATION: US paracentesis abd w/image DATE: 06/18/2024 12:38 INDICATION: Ascites. TECHNIQUE: The procedure and its risks, benefits, and alternatives were discussed with the patient. P otential risks discussed included bleeding and infection. The skin was prepped and draped in sterile fashion. 1% lidocaine was used for local anesthesia. Under ultrasound guidance, a 5 Fr catheter with trochar was advanced into the ascites in the right lower quadrant. Fluid was aspirated. The catheter was removed, and a dressing was applied. There were no immediate complications. FINDINGS: Ultrasound images demonstrate ascites and the catheter within the fluid. IMPRESSION: 1. Successful ultrasound-guided paracentesis yielding 5000 mL of yellow fluid. Reviewed, dictated and finalized at location A.
--- NOTE | ~2024-06-18 | US_ITS ---
EXAMINATION: US paracentesis abd w/image DATE: 04/08/2024 13:03 INDICATION: Ascites. TECHNIQUE: The procedure and its risks, benefits, and alternatives were discussed with the patient. P otential risks discussed included bleeding and infection. The skin was prepped and draped in sterile fashion. 1% lidocaine was used for local anesthesia. Under ultrasound guidance, a 5 Fr catheter with trochar was advanced into the ascites in the right lower quadrant. Fluid was aspirated. The catheter was removed, and a dressing was applied. There were no immediate complications. FINDINGS: Ultrasound images demonstrate ascites and the catheter within the fluid. IMPRESSION: 1. Successful ultrasound-guided paracentesis yielding 2700 mL of cloudy yellow fluid. Reviewed, dictated and finalized at location A.
== END 2024-06-23 23:59 | disposition home or self-care (01) ==
LOC: ANHIMG 10:42
PROVIDERS: Radiology Diagnostic Radiology; PCP Internal Medicine; Visit Provider Internal Medicine Hematology & Oncology
DX: C85.93 Non-Hodgkin lymphoma, unspecified, intra-abdominal lymph nodes (principal)
CPT/HCPCS: 36415; 49083; 85049; 85610; C1729

== ENCOUNTER 2024-07-15 16:26 | Inpatient (IN) | payer OTHER, SELFPAY ==
--- NOTE | ~2024-07-15 | XR_ITS ---
EXAMINATION: XR chest 1V portable DATE: 07/18/2024 12:58 INDICATION: Pleural effusion. TECHNIQUE: A single frontal view of the chest was obtained. COMPARISON: Chest 2 views 07/16/2024 FINDINGS: The lung volumes are small with relative elevation of right hemidiaphragm. There are airspa ce opacities at the lung bases. No pleural effusion or pneumothorax. The heart size is normal. There is a left chest wall pacer with leads in the right atrium and right ventricle. Calcified left hilar l ymph nodes are consistent with old granulomatous disease. There is a right internal jugular port with tip in superior vena cava. There are changes of anterior fusion procedure in cervical spine. IMPRESSION: 1. Airspace opacities at the lung bases with interval improvement, likely atelectasis. Reviewed, dictated and finalized at location A. IMPRESSION: 1. Airspace opacities at the lung bases with interval improvement, likely atele ctasis.
--- NOTE | ~2024-07-15 | CT_ITS ---
EXAMINATION: CTA chest PE abdomen pel DATE: 07/15/2024 22:18 INDICATION: sob, confusion, pna on cxr TECHNIQUE: Computed tomography angiography (CTA) of the chest was performed with 100 mL Omnipaque-350 intravenous contrast timed to evaluate the pulmonary arteries, followed by portal venous phase imagi ng of the abdomen and pelvis. Coronal maximum intensity projection 3D-reconstructions were created by the technologist. The dose-length product (DLP) was 1069.53 mGy-cm. Automated exposure control and i terative reconstruction technique were employed. COMPARISON: X-ray chest, same date; ultrasound guided paracentesis, same date; PET/CT 03/11/2024; CT ab domen pelvis 01/15/2024. FINDINGS: CHEST: Lung parenchyma and airways: Linear bands of atelectasis in the bilateral lower lungs. Subsegmental c onsolidation in the dependent left lower lobe. Subsegmental lingular and right middle lobe consolidat ion. Pleura: Large volume simple left pleural fluid collection. Thoracic inlet, axillae and chest wall: No thyroid or soft tissue mass. Left chest pacer with intact leads, in good position. Implanted right chest port tip terminating at the cavoatrial junction. Thoracic aorta: No significant dilation. No dissection. Mediastinum: Dilated central pulmonary arteries. Heart and pericardium: Normal. Coronary artery calcifications: Mild. Thoracic bones: No acute osseous finding. Pulmonary arteries: Study quality: Mild motion artifact, overall diagnostic examination.. No pulmonar y emboli detected. ABDOMEN/PELVIS: Liver: Nodular liver border. Biliary/Gallbladder: No bile duct dilation. Pancreas: No mass or duct dilation. Spleen: Normal. Adrenals:No mass. Kidneys: No suspicious mass, obstructing stone, or hydronephrosis. GI tract: No small or large bowel dilation. Appendix not confidently visualized. Mesentery/Peritoneum: Large volume simple ascitic fluid. Upper abdominal varices. Retroperitoneum: No mass. Atherosclerotic abdominal aortic and/or arterial calcifications. Pelvis: Distended urinary bladder without wall thickening. Prostatomegaly with calcification.. Soft Tissues: Moderate diffuse trunk edema Abdominopelvic bones: No acute osseous finding. 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 IMPRESSION: No CT evidence of acute pulmonary embolus. Large left pleural effusion. Subsegmental right middle lobe, lingular, and left lower lobe consolidation, likely atelectasis. Infe ction not excluded. Cirrhosis with portal hypertension. Large volume ascites. Moderate trunk edema. Reviewed, dictated and finalized at location K. IMPRESSION: No CT evidence of acute pulmonary embolus. Large left pleural effusion. Subsegmental right middle lobe, lingular, and left lower lobe consolidation, li troy atelectasis. Infection not excluded. Cirrhosis with portal hypertension. Large volume ascites. Moderate trunk edema.
--- NOTE | ~2024-07-15 | US_ITS ---
EXAMINATION: US paracentesis abd w/image DATE: 07/18/2024 15:24 INDICATION: Ascites. TECHNIQUE: The procedure and its risks, benefits, and alternatives were discussed with the patient. P otential risks discussed included bleeding and infection. The skin was prepped and draped in sterile fashion. 1% lidocaine was used for local anesthesia. Under ultrasound guidance, a 5 Fr catheter with trochar was advanced into the ascites in the left lower quadrant. Fluid was aspirated. The catheter w as removed, and a dressing was applied. There were no immediate complications. FINDINGS: Ultrasound images demonstrate ascites and the catheter within the fluid. IMPRESSION: 1. Successful ultrasound-guided paracentesis yielding 5000 mL of yellow fluid. Reviewed, dictated and finalized at location A.
--- NOTE | ~2024-07-15 | US_ITS ---
EXAMINATION: US thoracentesis DATE: 07/16/2024 13:43 INDICATION: pleural effusion TECHNIQUE: The procedure and its risks, benefits, and alternatives were discussed with the patient. P otential risks discussed included bleeding, infection, and pneumothorax. The patient understood the r isks and agreed to proceed. The skin was prepped and draped in sterile fashion. 1% lidocaine was used for local anesthesia. Under ultrasound guidance, a 5 Fr catheter with trochar was advanced into the left pleural effusion. Fluid was aspirated. The catheter was removed, and a dressing was applied. The re were no immediate complications. FINDINGS: Ultrasound images demonstrate a left pleural effusion and the catheter within the fluid. IMPRESSION: 1. Successful ultrasound-guided thoracentesis yielding 750 mL of sim-colored fluid. Reviewed, dictated and finalized at location A.
--- NOTE | ~2024-07-15 | US_ITS ---
EXAMINATION: US paracentesis abd w/image DATE: 07/16/2024 14:07 INDICATION: Ascites. TECHNIQUE: The procedure and its risks, benefits, and alternatives were discussed with the patient. P otential risks discussed included bleeding and infection. The skin was prepped and draped in sterile fashion. 1% lidocaine was used for local anesthesia. Under ultrasound guidance, a 5 Fr catheter with trochar was advanced into the ascites in the left lower quadrant. Fluid was aspirated. The catheter w as removed, and a dressing was applied. There were no immediate complications. FINDINGS: Ultrasound images demonstrate ascites and the catheter within the fluid. IMPRESSION: 1. Successful ultrasound-guided paracentesis yielding 5000 mL of sim-mckinley fluid. Reviewed, dictated and finalized at location A. IMPRESSION: 1. Successful ultrasound-guided paracentesis yielding 5000 mL of sim-mckinley flu id.
--- NOTE | ~2024-07-15 | CT_ITS ---
EXAMINATION: CT brain wo con DATE: 07/15/2024 22:17 INDICATION: confusion . TECHNIQUE: Computed tomography (CT) of the head was performed without intravenous contrast. The mA wa s adjusted according to patient size. Iterative reconstruction technique was employed. The dose-lengt h product was 605.33 mGy-cm. COMPARISON: 01/30/2024. FINDINGS: No acute intracranial hemorrhage or extra-axial fluid collection. No hydrocephalus, mass, or herniation. No acute ischemic infarct. Unremarkable dural venous sinus attenuation. No acute osseous abnormality. Mild right mastoid fluid, the remaining aerated spaces are clear. Mild atrophy and chronic white matter change. Atherosclerotic intracranial calcification. Bilateral l ens replacements. IMPRESSION: No acute intracranial process. Reviewed, dictated and finalized at location K.
--- NOTE | ~2024-07-15 | XR_ITS ---
XR chest 2V Ordering provider: Elisabeth Owens PA-C History: 79 years Male with . dyspnea X 1 DAY . Comparison: January 30, 2024 FINDINGS: MEDIASTINUM: The cardiac silhouette is not enlarged. Left bipolar pacemaker. A right Port-A-Cath. LUNGS: No effusions or pneumothorax. Opacification in the left lung base suggestive of atelectasis ve rsus pneumonia. Air-fluid level is seen in the right lower lobe area which may be fluid in the loculated pleural cavi ty although this likely versus fluid in a bulla versus subsegmental atelectatic area. CT evaluation a dvised. OTHER: No free air under the diaphragm. IMPRESSION: Left basilar pneumonia. Right basal fluid level versus subsegmental atelectatic changes. Further evaluation with CT is advise d. Reviewed, dictated and finalized at location A. IMPRESSION: Left basilar pneumonia. Right basal fluid level versus subsegmental atelectatic changes. Further evalua tion with CT is advised.
--- NOTE | ~2024-07-15 | XR_ITS ---
EXAMINATION: [id number] DATE: 07/16/2024 14:18 INDICATION: Left pleural effusion status post thoracentesis. TECHNIQUE: Frontal and lateral views of the chest were obtained. COMPARISON: Chest 2 views 07/15/2024 FINDINGS: There are airspace opacities at the lung bases. Calcified left lung nodules and calcified l eft hilar lymph nodes are consistent with old granulomatous disease. No pleural effusion or pneumotho rax. The heart size is normal. There is a left chest wall pacer with leads in the right atrium and ri ght ventricle. There is a right internal jugular port with tip in superior vena cava. There are morales es of anterior fusion procedure in cervical spine. IMPRESSION: 1. Airspace opacities at the lung bases, likely atelectasis. Reviewed, dictated and finalized at location A.
[2024-07-15 16:29] VITALS: BP 121/53; PULSE 87; RESP 18; TEMP 36.6; O2SAT 98
--- NOTE | 2024-07-15 16:32 | ECG_ITS ---
Test Date: 2024-07-15 21:28:46 Measurements Intervals [place] Rate: 60 P: 242 NV: 220 QRS: 44 QRSD: 95 T: 60 QT: 422 QTc: 422 Interpretive Statements ELECTRONIC ATRIAL PACEMAKER ANTERIOR INFARCT, AGE INDETERMINATE BORDERLINE ST-T WAVE ABNORMALITY- INF/LAT LEADS BASELINE ARTIFACT- I, II, III, AVL, AVF, V4-V5 ABNORMAL ECG No previous ECG available for comparison Electronically Signed On 07-16-2024 06:16:17 CDT by Moises Marcial D.O.
--- NOTE | 2024-07-15 16:33 | ED.SOB ---
HPI - SOB/Dyspnea General Chief Complaint: Shortness of Breath/Dyspnea <Elisabeth Owens PA-C - Last Filed: 07/15/24 16:35> Stated Complaint: sob <Elisabeth Owens PA-C - Last Filed: 07/15/24 16:35> Time Seen by Provider: 07/15/24 20:35 <Elisabeth Owens PA-C - Last Filed: 07/15/24 16:35> Focused HPI: 79-year-old male with history of cirrhosis and ascites, CHF, diabetes presents with his at bedside for shortness of breath since this afternoon. Patient's states that the patient had 5 L of fluids removed today and a paracentesis. States normally this helps the shortness of breath, however it has not. Reports shortness of breath that is worse with exertion. Denies chest pain, cough or congestion, pulses, fever, abdominal pain, chest pain. GENERAL: Well-appearing, well-nourished, and in no acute distress. HEAD: Normocephalic, atraumatic. CHEST: Clear to auscultation. ?No respiratory distress. ABD: Distended, soft, nontender. Band-Aid in the left lower quadrant HEART: Regular rate and rhythm.? NEURO: ?Alert and oriented x3. Patient screened in triage and initial orders placed.? ?Additional care and disposition to be based upon?diagnostic testing and treatment. <Elisabeth Owens PA-C - Last Filed: 07/15/24 16:35> Focused HPI: 79-year-old male with history of cirrhosis and ascites, CHF, diabetes presents with his at bedside for shortness of breath since this afternoon. Patient's states that the patient had 5 L of fluids removed today and a paracentesis. States normally this helps the shortness of breath, however it has not. Reports shortness of breath that is worse with exertion. Denies chest pain, cough or congestion, pulses, fever, abdominal pain, chest pain. GENERAL: Well-appearing, well-nourished, and in no acute distress. HEAD: Normocephalic, atraumatic. CHEST: Clear to auscultation. ?No respiratory distress. ABD: Distended, soft, nontender. Band-Aid in the left lower quadrant HEART: Regular rate and rhythm.? NEURO: ?Alert and oriented x3. Patient screened in triage and initial orders placed.? ?Additional care and disposition to be based upon?diagnostic testing and treatment. <RICCO Hernandez Last Filed: 07/16/24 02:18> Source: patient <RICCO Hernandez Last Filed: 07/16/24 02:18> Mode of arrival: ambulatory <RICCO Hernandez Last Filed: 07/16/24 02:18> Limitations: no limitations <RICCO Hernandez Last Filed: 07/16/24 02:18> History of Present Illness HPI Narrative: Agree with above HPI. Has paracentesis performed every 2 weeks. Does report having increased swelling in his lower extremities as well. also did report that patient has been increasingly confused today, forgetting worry is or forgetting what he is doing. <RICCO Hernandez Last Filed: 07/16/24 02:18> Related Data Home Medications: Home Medications Medication Instructions Recorded Confirmed cholecalciferol (vitamin D3) 25 25 mcg PO DAILY 06/19/22 07/16/24 mcg (1,000 unit) capsule empagliflozin 25 mg tablet 25 mg PO QAM 06/19/22 07/16/24 (Jardiance) ferrous sulfate 325 mg (65 mg 325 mg PO BIDWM 06/19/22 07/16/24 iron) capsule,extended release fluticasone propionate 50 2 spray intranasal DAILY 06/19/22 07/16/24 mcg/actuation nasal spray,suspension nystatin 100,000 unit/gram topical 1 applic topical BID PRN MOUTH 06/19/22 07/16/24 cream SORES omeprazole 40 mg capsule,delayed 40 mg PO BID 06/19/22 07/16/24 release simvastatin 20 mg tablet (Zocor) 20 mg PO HS 06/19/22 07/16/24 cyanocobalamin (vitamin B-12) 1,000 mcg PO DAILY 11/29/22 07/16/24 1,000 mcg tablet metformin 1,000 mg tablet 1,000 mg PO BIDWM 02/14/23 07/16/24 acyclovir 400 mg tablet 400 mg PO Q12H 12/25/23 07/16/24 sitagliptin phosphate 50 mg tablet 100 mg PO DAILY 01/15/24 07/16/24 (Novpineda) sucralfate 1 gram tablet 1 g PO QID 03
[2024-07-15 16:47] LABS: Basophils Percent Auto 0.6 % (0.2-1.2); Eosinophils Absolute Auto 0.1 K/mm3 (0-0.3); Eosinophils Percent Auto 3.7 % (0-4.4); Hematocrit 32.7 % (42.0-52.0); Hemoglobin 10.1 g/dL (14.0-18.0); Immature Granulocyte Absolute 0.01 K/mm3 (0.00-0.031); Immature Granulocyte Percent A 0.3 % (0-0.5); Lymphocytes Absolute Auto 0.31 K/mm3 (0.9-3.2); Lymphocytes Percent Auto 9.5 % (18.3-44.2); Mean Corpuscular HGB Conc 30.9 g/dl (32-36); Mean Platelet Volume 11.3 fl (7.4-10.4); Monocytes Absolute Auto 0.4 K/mm3 (0.1-0.6); Monocytes Percent Auto 13.2 % (2.6-8.5); Neutrophils Absolute Auto 2.4 K/mm3 (1.3-6.7); Neutrophils Percent Auto 72.7 % (45.5-73.1); Platelet Count Result 167 k/mm3 (150-375); Red Blood Count 3.37 M/mm3 (4.6-6.20); Red Cell Distribution Width 17.1 % (11.5-14.5); White Blood Count 3.3 K/mm3 (4.5-10.0)
[2024-07-15 16:56] LABS: INR 1.3; Prothrombin Time 16.3 Seconds (11.1-14.7)
[2024-07-15 16:57] LABS: Alanine Aminotransferase 27 U/L (6-50); Alkaline Phosphatase 262 U/L (38-126); Anion Gap 10 mmol/L (4-12); Aspartate Amino Transferase 35 U/L (17-59); Bilirubin,Total 0.9 mg/dL (0.2-1.3); Blood Urea Nitrogen 20 mg/dL (9-20); Carbon Dioxide 24 mmol/L (22-30); Chloride 99 mmol/L (98-107); Estimated CRCL calculation 55 ml/min; Estimated Glomerular Filt Rate > 60; Glucose 307 mg/dL (65-110); Partial Thromboplastin Time 28.9 Seconds (22.3-36.8); Potassium 3.9 mmol/L (3.4-5.0); Sodium 133 mmol/L (137-145)
[2024-07-15 17:08] LABS: NT Pro B Type Natriuretic Pept 675 pg/mL (19.9-100); Troponin I < 0.012 ng/mL (0.000-0.034)
--- NOTE | 2024-07-15 23:29 | PM.IMHP ---
H&P: HPI History of Present Illness Date/Time: 07/15/24 23:29 Chief Complaint: SHORTNESS OF BREATH Narrative: THIS IS A 79-YEAR-OLD MALE WITH PAST MEDICAL HISTORY SIGNIFICANT FOR HEPATIC CIRRHOSIS, RECURRENT ASCITES, RECURRENT PARACENTESES, PATIENT HAS HAD PARACENTESES DRAIN 5 L HOWEVER RETURNS TO THE EMERGENCY ROOM AFTER BEING ADVISED BY HIS PRIMARY CARE PHYSICIAN DUE TO REACCUMULATION ON OF ASCITIC FLUID WITH TENSION ASCITES AND SHORTNESS OF BREATH. PATIENT DENIES ANY FEVERS, RIGORS, CHILLS, NAUSEA, VOMITING, BLEEDING. PRELIMINARY WORKUP WAS SIGNIFICANT FOR CT OF ABDOMEN AND PELVIS WITH MODERATE AMOUNT OF ASCITES CT OF THE CHEST WAS SIGNIFICANT FOR MODERATE PLEURAL EFFUSION BILATERALLY AND PNEUMONIA WELL. PATIENT HAS BEEN ADMITTED FOR FURTHER EVALUATION MANAGEMENT AND TREATMENT XR chest 2V Ordering provider: Elisabeth Owens PA-C History: 79 years Male with . dyspnea X 1 DAY . Comparison: January 30, 2024 FINDINGS: MEDIASTINUM: The cardiac silhouette is not enlarged. Left bipolar pacemaker. A right Port-A-Cath. LUNGS: No effusions or pneumothorax. Opacification in the left lung base suggestive of atelectasis versus pneumonia. Air-fluid level is seen in the right lower lobe area which may be fluid in the loculated pleural cavity although this likely versus fluid in a bulla versus subsegmental atelectatic area. CT evaluation advised. OTHER: No free air under the diaphragm. IMPRESSION: Left basilar pneumonia. Right basal fluid level versus subsegmental atelectatic changes. Further evaluation with CT is advised. EXAMINATION: CT brain wo con DATE: 07/15/2024 22:17 INDICATION: confusion . TECHNIQUE: Computed tomography (CT) of the head was performed without intravenous contrast. The mA was adjusted according to patient size. Iterative reconstruction technique was employed. The dose-length product was 605.33 mGy-cm. COMPARISON: 01/30/2024. FINDINGS: No acute intracranial hemorrhage or extra-axial fluid collection. No hydrocephalus, mass, or herniation. No acute ischemic infarct. Unremarkable dural venous sinus attenuation. No acute osseous abnormality. Mild right mastoid fluid, the remaining aerated spaces are clear. Mild atrophy and chronic white matter change. Atherosclerotic intracranial calcification. Bilateral lens replacements. IMPRESSION: No acute intracranial process. EXAMINATION: CTA chest PE abdomen pel DATE: 07/15/2024 22:18 INDICATION: sob, confusion, pna on cxr TECHNIQUE: Computed tomography angiography (CTA) of the chest was performed with 100 mL Omnipaque-350 intravenous contrast timed to evaluate the pulmonary arteries, followed by portal venous phase imaging of the abdomen and pelvis. Coronal maximum intensity projection 3D-reconstructions were created by the technologist. The dose-length product (DLP) was 1069.53 mGy-cm. Automated exposure control and iterative reconstruction technique were employed. COMPARISON: X-ray chest, same date; ultrasound guided paracentesis, same date; PET/CT 03/11/2024; CT abdomen pelvis 01/15/2024. FINDINGS: CHEST: Lung parenchyma and airways: Linear bands of atelectasis in the bilateral lower lungs. Subsegmental consolidation in the dependent left lower lobe. Subsegmental lingular and right middle lobe consolidation. Pleura: Large volume simple left pleural fluid collection. Thoracic inlet, axillae and chest wall: No thyroid or soft tissue mass. Left chest pacer with intact leads, in good position. Implanted right chest port tip terminating at the cavoatrial junction. Thoracic aorta: No significant dilation. No dissection. Mediastinum: Dilated central pulmonary arteries. Heart and pericardium: Normal. Coronary artery calcifications: Mild. Thoracic bones: No acute osseous finding. Pulmonary arteries: Study quality: Mild motion artifact, overall diagnostic examination.. No pulmonary emboli detected. ABDOMEN/PELVIS: Liver: Nodular liver andres
[2024-07-15 23:43] VITALS: O2SAT 100
[2024-07-15 23:45] VITALS: O2SAT 100
[2024-07-15] MEDS: FUROSEMIDE INJ 40 MG/4 ML VIAL IV PUSH (23:51)
--- NOTE | 2024-07-15 23:51 | PC.NURSE ---
blood cultures x 2 sent to lab. luna used.
[2024-07-15] MEDS: AZITHROMYCIN 500 MG/NS 250 ML 500 MG/250 ML BAG 250 MG IVPB (23:52)
[2024-07-16] VITALS (19 sets, daily range): BP systolic 107–140; BP diastolic 42–74; PULSE 63–98; RESP 16–18; TEMP 36.6–36.7; O2SAT 92–100; BMI 25.0
[2024-07-16 00:41] LABS: Influenza A QL RT-PCR Negative (Negative); Influenza B QL RT-PCR Negative (Negative); RSV RNA, RT-PCR Negative (Negative); SARS-CoV-2 RNA PCR Negative (Negative)
[2024-07-16] MEDS: VANCOMYCIN 1,750 MG/NS 500 ML 1,750 MG/500 ML BAG 250 MG IVPB (01:07)
[2024-07-16 05:45] LABS: Estimated CRCL calculation 62 ml/min; Estimated Glomerular Filt Rate > 60
--- NOTE | 2024-07-16 06:08 | ADMGEN ---
This patient, Estuardo Renae, was admitted to Medical Room 341-01. Patient/family oriented to hospital policies and general routines including ID bracelet, bed and alarms, visiting hours, pain management, procedures, bathroom and other care routines, personal items, smoking policy, room service/diet, and visiting hours. Information on how to activate the Rapid Response Team has been discussed. Patient/Family are encouraged to report perceived risks to care and to ask questions if they do not understand what they are told or what they should do.
[2024-07-16] MEDS: ALBUMIN HUMAN 25% 12.5 GM/50ML 50 ML IVPB ×4 (06:32→23:18)
[2024-07-16] MEDS: FERROUS SULFATE 325 MG TABLET DR PO ×2 (08:41→17:37)
[2024-07-16] MEDS: lisinopriL 10 MG TABLET PO (08:41)
[2024-07-16] MEDS: EMPAGLIFLOZIN 25 MG TABLET PO (08:41)
[2024-07-16] MEDS: ACYCLOVIR 400 MG TABLET PO ×2 (08:41→21:04)
[2024-07-16] MEDS: SPIRONOLACTONE 50 MG TABLET PO (08:42)
[2024-07-16] MEDS: PANTOPRAZOLE 40 MG TABLET PO ×2 (08:42→21:04)
[2024-07-16] MEDS: FLUTICASONE PROPIONATE 0.05% NA SPR 16 GM BTL (*BKC) 2 SPRAY NASAL (08:42)
[2024-07-16] MEDS: rifAXIMin 550 MG TABLET PO ×2 (08:42→21:04)
[2024-07-16] MEDS: PROPRANOLOL HCL 10 MG TABLET PO ×2 (08:44→21:04)
[2024-07-16 09:09] LABS: Glucose Point of Care 192 mg/dl (65-105)
--- NOTE | 2024-07-16 10:50 | PM.IMPN ---
Progress Note: A&P Assessment and Plan (1) Pneumonia: Qualifiers: Laterality: bilateral Lung location: unspecified part of lung Pneumonia type: due to unspecified organism Qualified Code(s): J18.9 - Pneumonia, unspecified organism Code(s): J18.9 - Pneumonia, unspecified organism Status: Acute Assessment and Plan: Patient started on Rocephin Zithromax and vanc, Await cultures (2) Pleural effusion: Code(s): J90 - Pleural effusion, not elsewhere classified Status: Acute Assessment and Plan: Thoracentesis in a.m. (3) Type 2 diabetes mellitus with hyperglycemia: Code(s): E11.65 - Type 2 diabetes mellitus with hyperglycemia Status: Acute Assessment and Plan: Continue [employer] sitagliptin Holding metformin - will add AccuCheck ac/hs - hypoglycemia protocol - 10 units lantus, SS - monitor bs AND adjust therapy (4) Chronic obstructive pulmonary disease: Code(s): J44.9 - Chronic obstructive pulmonary disease, unspecified Status: Acute Assessment and Plan: Continue home med (5) Gastroesophageal reflux disease: Code(s): K21.9 - Gastro-esophageal reflux disease without esophagitis Status: Acute Assessment and Plan: PPI (6) Paroxysmal atrial fibrillation: Code(s): I48.0 - Paroxysmal atrial fibrillation Status: Acute Assessment and Plan: Rate controlled (7) Cirrhosis of liver with ascites: Qualifiers: Hepatic cirrhosis type: unspecified hepatic cirrhosis Qualified Code(s): K74.60 - Unspecified cirrhosis of liver; R18.8 - Other ascites Code(s): K74.60 - Unspecified cirrhosis of liver; R18.8 - Other ascites Status: Acute Assessment and Plan: Continue lactulose (8) Ascites: Code(s): R18.8 - Other ascites Status: Acute Assessment and Plan: Paracentesis in a.m. Time Spent With Patient Time with patient: Greater than 35 minutes Subjective Date/time seen: 07/16/24 10:50 Interval history: SHORTNESS OF BREATH Narrative retrieved from H/P: THIS IS A 79-YEAR-OLD MALE WITH PAST MEDICAL HISTORY SIGNIFICANT FOR HEPATIC CIRRHOSIS, RECURRENT ASCITES, RECURRENT PARACENTESES, PATIENT HAS HAD PARACENTESES DRAIN 5 L HOWEVER RETURNS TO THE EMERGENCY ROOM AFTER BEING ADVISED BY HIS PRIMARY CARE PHYSICIAN DUE TO REACCUMULATION ON OF ASCITIC FLUID WITH TENSION ASCITES AND SHORTNESS OF BREATH. PATIENT DENIES ANY FEVERS, RIGORS, CHILLS, NAUSEA, VOMITING, BLEEDING. PRELIMINARY WORKUP WAS SIGNIFICANT FOR CT OF ABDOMEN AND PELVIS WITH MODERATE AMOUNT OF ASCITES CT OF THE CHEST WAS SIGNIFICANT FOR MODERATE PLEURAL EFFUSION BILATERALLY AND PNEUMONIA WELL. PATIENT HAS BEEN ADMITTED FOR FURTHER EVALUATION MANAGEMENT AND TREATMENT 07/16- pt is seen and examined. He is on rocephin and zithromax for pneumoniA. Will get thoracentesis and thoracentesis today. He is resting with eyes closed. Review of Systems Review of Systems: SHORTNESS OF BREATH, ABDOMINAL DISTENSION, POOR PER ORALLY INTAKE Constitutional: Constitutional: Denies body ache(s) and Denies chills Cardiovascular: Cardiovascular: Denies chest pain Respiratory: Respiratory: Denies chest congestion and Denies cough Gastrointestinal: Gastrointestinal: Denies abdominal pain and Denies melena Exam Narrative: LAYING IN A STRETCHER Const: General: comfortable, no acute distress, well developed, alert, awake, ill appearing chronically and underweight Nutritional Appearance: underweight Orientation/consciousness: patient oriented x3 HENMT: Head: normal to inspection, normocephalic and atraumatic Ears: hearing grossly normal bilaterally Face/Nose/Sinus: normal facial exam Face and sinus: normal facial exam Eyes: General: appearance normal, both eyes and all related structures Pupils: Equal, round and reactive pupils present EOM: EOMs intact bilaterally Neck: Neck: full ROM, no lym
[2024-07-16 12:21] LABS: Glucose Point of Care 169 mg/dl (65-105)
[2024-07-16 14:23] LABS: pH Pleural Fluid > 7.500 (7.210-7.500)
[2024-07-16 15:16] LABS: Appearance Pleural Fluid Cloudy (Clear); Color Pleural Fluid Yellow (Colorless); Lymphocytes Pleural Fluid 36 %; Macrophages Pleural Fluid 34 %; Mesothelial Cells Pleural Flui 15 %; Monocytes Pleural Fluid 5 %; Neutrophils Pleural Fluid 10 % (0-25); Nucleated Cell Pleural Fluid 321 /uL (0-1000); Pleural fluid source Pleural fluid; RBC Pleural Fluid 8000 /uL (0-10000)
[2024-07-16 15:21] LABS: Appearance Peritoneal Fluid Hazy (Clear); Color Peritoneal Fluid Yellow (Colorless); Source Peritoneal Fluid Peritoneal Fluid
[2024-07-16 15:22] LABS: Lymphocytes Peritoneal Fluid 37 %; Macrophages Peritoneal Fluid 11 %; Monocytes Peritoneal Fluid 13 %; Neutrophils Peritoneal Fluid 7 % (0-25); Nucleated Cells Peritoneal Flu 90 /uL (0-500); RBC Peritoneal Fluid 3000 /uL (0-10000)
[2024-07-16 15:23] LABS: Mesothelial Cells Peritoneal Fluid 28 %; Other Cells Peritoneal Fluid 4 %
[2024-07-16 17:29] LABS: Glucose Point of Care 217 mg/dl (65-105)
[2024-07-16] MEDS: SUCRALFATE 1 GM TABLET PO ×2 (17:37→21:04)
[2024-07-16] MEDS: INSULIN ASPART (*BKC) 100 UNITS/ML SUB-Q (17:37)
[2024-07-16] MEDS: INSULIN GLARGINE (*BKC) 100 UNITS/ML 10 UNITS SUB-Q (21:04)
[2024-07-16] MEDS: SIMVASTATIN 20 MG TABLET PO (21:04)
[2024-07-16 21:52] LABS: Glucose Point of Care 267 mg/dl (65-105)
[2024-07-16] MEDS: AZITHROMYCIN 500 MG/NS 250 ML 500 MG/250 ML BAG 250 MG IVPB (23:18)
[2024-07-17] MEDS: VANCOMYCIN 1,250 MG/NS 250 ML 1,250 MG/250 ML BAG 166.67 MG IVPB (01:58)
[2024-07-17 06:00] VITALS: BP 109/47; PULSE 60; RESP 18; TEMP 36.1; O2SAT 96
[2024-07-17] MEDS: ALBUMIN HUMAN 25% 12.5 GM/50ML 50 ML IVPB ×4 (06:00→23:36)
[2024-07-17 07:41] LABS: Estimated CRCL calculation 71 ml/min; Estimated Glomerular Filt Rate > 60
[2024-07-17 08:00] VITALS: PULSE 65; RESP 18; O2SAT 96
[2024-07-17] MEDS: rifAXIMin 550 MG TABLET PO ×2 (08:22→21:16)
[2024-07-17] MEDS: LACTULOSE 20 GM/30 ML UDC PO (08:23)
[2024-07-17] MEDS: EMPAGLIFLOZIN 25 MG TABLET PO (08:23)
[2024-07-17] MEDS: SPIRONOLACTONE 50 MG TABLET PO (08:23)
[2024-07-17] MEDS: lisinopriL 10 MG TABLET PO (08:23)
[2024-07-17] MEDS: ACYCLOVIR 400 MG TABLET PO ×2 (08:23→21:16)
[2024-07-17] MEDS: FERROUS SULFATE 325 MG TABLET DR PO ×2 (08:23→17:09)
[2024-07-17] MEDS: FLUTICASONE PROPIONATE 0.05% NA SPR 16 GM BTL (*BKC) 2 SPRAY NASAL (08:23)
[2024-07-17] MEDS: PANTOPRAZOLE 40 MG TABLET PO ×2 (08:23→21:15)
[2024-07-17] MEDS: SUCRALFATE 1 GM TABLET PO ×4 (08:23→21:15)
[2024-07-17 08:24] VITALS: PULSE 65
[2024-07-17] MEDS: PROPRANOLOL HCL 10 MG TABLET PO ×2 (08:24→21:16)
[2024-07-17 08:53] LABS: Glucose Point of Care 140 mg/dl (65-105)
--- NOTE | 2024-07-17 10:00 | PM.IMPN ---
Progress Note: A&P Assessment and Plan (1) Pneumonia: Qualifiers: Laterality: bilateral Lung location: unspecified part of lung Pneumonia type: due to unspecified organism Qualified Code(s): J18.9 - Pneumonia, unspecified organism Code(s): J18.9 - Pneumonia, unspecified organism Status: Acute Assessment and Plan: Patient started on Rocephin Zithromax and vanc, cultures- negative (2) Pleural effusion: Code(s): J90 - Pleural effusion, not elsewhere classified Status: Acute Assessment and Plan: Thoracentesis in a.m. - cultures collected- pending (3) Type 2 diabetes mellitus with hyperglycemia: Code(s): E11.65 - Type 2 diabetes mellitus with hyperglycemia Status: Acute Assessment and Plan: Continue [employer] sitagliptin Holding metformin - will add AccuCheck ac/hs - hypoglycemia protocol - 10 units lantus, SS - monitor bs AND adjust therapy 07/17- BS elevated- will increase lantus to 13 units at hs (4) Chronic obstructive pulmonary disease: Code(s): J44.9 - Chronic obstructive pulmonary disease, unspecified Status: Acute Assessment and Plan: Continue home med (5) Gastroesophageal reflux disease: Code(s): K21.9 - Gastro-esophageal reflux disease without esophagitis Status: Acute Assessment and Plan: PPI (6) Paroxysmal atrial fibrillation: Code(s): I48.0 - Paroxysmal atrial fibrillation Status: Acute Assessment and Plan: Rate controlled (7) Cirrhosis of liver with ascites: Qualifiers: Hepatic cirrhosis type: unspecified hepatic cirrhosis Qualified Code(s): K74.60 - Unspecified cirrhosis of liver; R18.8 - Other ascites Code(s): K74.60 - Unspecified cirrhosis of liver; R18.8 - Other ascites Status: Acute Assessment and Plan: Continue lactulose (8) Ascites: Code(s): R18.8 - Other ascites Status: Acute Assessment and Plan: Paracentesis in a.m. Time Spent With Patient Time with patient: Greater than 35 minutes Subjective Date/time seen: 07/17/24 10:00 Interval history: SHORTNESS OF BREATH Narrative retrieved from H/P: THIS IS A 79-YEAR-OLD MALE WITH PAST MEDICAL HISTORY SIGNIFICANT FOR HEPATIC CIRRHOSIS, RECURRENT ASCITES, RECURRENT PARACENTESES, PATIENT HAS HAD PARACENTESES DRAIN 5 L HOWEVER RETURNS TO THE EMERGENCY ROOM AFTER BEING ADVISED BY HIS PRIMARY CARE PHYSICIAN DUE TO REACCUMULATION ON OF ASCITIC FLUID WITH TENSION ASCITES AND SHORTNESS OF BREATH. PATIENT DENIES ANY FEVERS, RIGORS, CHILLS, NAUSEA, VOMITING, BLEEDING. PRELIMINARY WORKUP WAS SIGNIFICANT FOR CT OF ABDOMEN AND PELVIS WITH MODERATE AMOUNT OF ASCITES CT OF THE CHEST WAS SIGNIFICANT FOR MODERATE PLEURAL EFFUSION BILATERALLY AND PNEUMONIA WELL. PATIENT HAS BEEN ADMITTED FOR FURTHER EVALUATION MANAGEMENT AND TREATMENT 07/16- pt is seen and examined. He is on rocephin and zithromax for pneumonia. Will get thoracentesis and thoracentesis today. He is resting with eyes closed. 07/17- paracentesis and thorasentesis completed yesterday. he is alert and oriented today, pleasant, denies pain Review of Systems Constitutional: Constitutional: Denies body ache(s) and Denies chills Cardiovascular: Cardiovascular: Denies chest pain Respiratory: Respiratory: Denies chest congestion and Denies cough Gastrointestinal: Gastrointestinal: Denies abdominal pain and Denies melena Exam Narrative: LAYING IN A STRETCHER Const: General: comfortable, no acute distress, well developed, alert, awake, ill appearing chronically and underweight Nutritional Appearance: underweight Orientation/consciousness: patient oriented x3 HENMT: Head: normal to inspection, normocephalic and atraumatic Ears: hearing grossly normal bilaterally Face/Nose/Sinus: normal facial exam Face and sinus: normal facial exam Eyes: General: appearance normal, both eyes and all related str
[2024-07-17 10:10] LABS: Hematocrit 29.7 % (42.0-52.0); Hemoglobin 9.2 g/dL (14.0-18.0); Mean Corpuscular Hemoglobin 30.2 pg (26-34); Mean Corpuscular Volume 97.4 fl (80-100); Platelet Count Result 117 k/mm3 (150-375); Red Blood Count 3.05 M/mm3 (4.6-6.20); Red Cell Distribution Width 17.2 % (11.5-14.5)
[2024-07-17 10:20] LABS: Anion Gap 2 mmol/L (4-12); Blood Urea Nitrogen 18 mg/dL (9-20); Calcium 8.7 mg/dL (8.4-10.2); Carbon Dioxide 31 mmol/L (22-30); Chloride 102 mmol/L (98-107); Estimated CRCL calculation 71 ml/min; Estimated Glomerular Filt Rate > 60; Glucose 167 mg/dL (65-110); Potassium 3.3 mmol/L (3.4-5.0); Sodium 135 mmol/L (137-145)
[2024-07-17] MEDS: POTASSIUM CHLORIDE 20 MEQ PACKET (FOR LIQUID) PO (12:07)
[2024-07-17 12:18] LABS: Glucose Point of Care 203 mg/dl (65-105)
[2024-07-17] MEDS: INSULIN ASPART (*BKC) 100 UNITS/ML SUB-Q ×2 (12:43→17:12)
[2024-07-17 14:00] VITALS: BP 110/32; PULSE 88; RESP 18; TEMP 36.7; O2SAT 100
[2024-07-17 17:06] LABS: Glucose Point of Care 230 mg/dl (65-105)
[2024-07-17] MEDS: INSULIN GLARGINE (*BKC) 100 UNITS/ML 13 UNITS SUB-Q (21:11)
[2024-07-17 21:16] VITALS: PULSE 64
[2024-07-17] MEDS: SIMVASTATIN 20 MG TABLET PO (21:16)
[2024-07-17 22:01] VITALS: BP 116/53; PULSE 70; RESP 18; TEMP 36.6; O2SAT 96
[2024-07-17] MEDS: AZITHROMYCIN 500 MG/NS 250 ML 500 MG/250 ML BAG 250 MG IVPB (23:36)
[2024-07-18 00:42] LABS: Glucose Point of Care 239 mg/dl (65-105)
[2024-07-18 00:58] LABS: Vancomycin Trough 8.9 ug/mL (10.0-20.0)
[2024-07-18] MEDS: VANCOMYCIN 1,250 MG/NS 250 ML 1,250 MG/250 ML BAG 166.67 MG IVPB (02:24)
[2024-07-18] MEDS: ALBUMIN HUMAN 25% 12.5 GM/50ML 50 ML IVPB ×4 (05:53→23:01)
[2024-07-18 06:00] VITALS: BP 104/42; PULSE 60; RESP 20; TEMP 36.6; O2SAT 99
[2024-07-18 07:30] LABS: Hematocrit 30.8 % (42.0-52.0); Hemoglobin 9.5 g/dL (14.0-18.0); Mean Corpuscular HGB Conc 30.8 g/dl (32-36); Mean Corpuscular Hemoglobin 30.2 pg (26-34); Mean Corpuscular Volume 97.8 fl (80-100); Mean Platelet Volume 10.9 fl (7.4-10.4); Platelet Count Result 135 k/mm3 (150-375); Red Blood Count 3.15 M/mm3 (4.6-6.20); Red Cell Distribution Width 17.2 % (11.5-14.5); White Blood Count 3.9 K/mm3 (4.5-10.0)
[2024-07-18 07:46] LABS: Anion Gap 5 mmol/L (4-12); Blood Urea Nitrogen 16 mg/dL (9-20); Calcium 8.6 mg/dL (8.4-10.2); Carbon Dioxide 30 mmol/L (22-30); Chloride 100 mmol/L (98-107); Estimated CRCL calculation 71 ml/min; Estimated Glomerular Filt Rate > 60; Glucose 155 mg/dL (65-110); Potassium 3.6 mmol/L (3.4-5.0); Sodium 135 mmol/L (137-145)
[2024-07-18] MEDS: PANTOPRAZOLE 40 MG TABLET PO ×2 (08:57→20:29)
[2024-07-18] MEDS: EMPAGLIFLOZIN 25 MG TABLET PO (08:57)
[2024-07-18] MEDS: FLUTICASONE PROPIONATE 0.05% NA SPR 16 GM BTL (*BKC) 2 SPRAY NASAL (08:57)
[2024-07-18] MEDS: lisinopriL 10 MG TABLET PO (08:57)
[2024-07-18] MEDS: FERROUS SULFATE 325 MG TABLET DR PO ×2 (08:57→17:36)
[2024-07-18] MEDS: rifAXIMin 550 MG TABLET PO ×2 (08:57→20:28)
[2024-07-18] MEDS: ACYCLOVIR 400 MG TABLET PO ×2 (08:57→20:27)
[2024-07-18] MEDS: SPIRONOLACTONE 50 MG TABLET PO (08:57)
[2024-07-18] MEDS: POTASSIUM CHLORIDE 20 MEQ PACKET (FOR LIQUID) PO (08:57)
[2024-07-18] MEDS: SUCRALFATE 1 GM TABLET PO ×4 (08:57→20:27)
[2024-07-18] MEDS: LACTULOSE 20 GM/30 ML UDC PO (08:57)
[2024-07-18 09:01] VITALS: PULSE 66
[2024-07-18] MEDS: PROPRANOLOL HCL 10 MG TABLET PO ×2 (09:01→20:28)
[2024-07-18 09:21] LABS: Glucose Point of Care 152 mg/dl (65-105)
--- NOTE | 2024-07-18 09:38 | PM.IMPN ---
Progress Note: A&P Assessment and Plan (1) Pneumonia: Qualifiers: Laterality: bilateral Lung location: unspecified part of lung Pneumonia type: due to unspecified organism Qualified Code(s): J18.9 - Pneumonia, unspecified organism Code(s): J18.9 - Pneumonia, unspecified organism Status: Acute Assessment and Plan: Patient started on Rocephin Zithromax and vanc, cultures- negative - switched to PO antibiotics - anticipate discharge home 07/19 if stable overnight (2) Pleural effusion: Code(s): J90 - Pleural effusion, not elsewhere classified Status: Acute Assessment and Plan: Thoracentesis in a.m. - cultures collected- pending (3) Type 2 diabetes mellitus with hyperglycemia: Code(s): E11.65 - Type 2 diabetes mellitus with hyperglycemia Status: Acute Assessment and Plan: Continue [employer] sitagliptin Holding metformin - will add AccuCheck ac/hs - hypoglycemia protocol - 10 units lantus, SS - monitor bs AND adjust therapy 07/17- BS elevated- will increase lantus to 13 units at hs (4) Chronic obstructive pulmonary disease: Code(s): J44.9 - Chronic obstructive pulmonary disease, unspecified Status: Acute Assessment and Plan: Continue home med (5) Gastroesophageal reflux disease: Code(s): K21.9 - Gastro-esophageal reflux disease without esophagitis Status: Acute Assessment and Plan: PPI (6) Paroxysmal atrial fibrillation: Code(s): I48.0 - Paroxysmal atrial fibrillation Status: Acute Assessment and Plan: Rate controlled (7) Cirrhosis of liver with ascites: Qualifiers: Hepatic cirrhosis type: unspecified hepatic cirrhosis Qualified Code(s): K74.60 - Unspecified cirrhosis of liver; R18.8 - Other ascites Code(s): K74.60 - Unspecified cirrhosis of liver; R18.8 - Other ascites Status: Acute Assessment and Plan: Continue lactulose - 07/18 distended today- will order US guided paracentesis (8) Ascites: Code(s): R18.8 - Other ascites Status: Acute Assessment and Plan: Paracentesis in a.m. Subjective Date/time seen: 07/18/24 09:38 Interval history: SHORTNESS OF BREATH Narrative retrieved from H/P: THIS IS A 79-YEAR-OLD MALE WITH PAST MEDICAL HISTORY SIGNIFICANT FOR HEPATIC CIRRHOSIS, RECURRENT ASCITES, RECURRENT PARACENTESES, PATIENT HAS HAD PARACENTESES DRAIN 5 L HOWEVER RETURNS TO THE EMERGENCY ROOM AFTER BEING ADVISED BY HIS PRIMARY CARE PHYSICIAN DUE TO REACCUMULATION ON OF ASCITIC FLUID WITH TENSION ASCITES AND SHORTNESS OF BREATH. PATIENT DENIES ANY FEVERS, RIGORS, CHILLS, NAUSEA, VOMITING, BLEEDING. PRELIMINARY WORKUP WAS SIGNIFICANT FOR CT OF ABDOMEN AND PELVIS WITH MODERATE AMOUNT OF ASCITES CT OF THE CHEST WAS SIGNIFICANT FOR MODERATE PLEURAL EFFUSION BILATERALLY AND PNEUMONIA WELL. PATIENT HAS BEEN ADMITTED FOR FURTHER EVALUATION MANAGEMENT AND TREATMENT 07/16- pt is seen and examined. He is on rocephin and zithromax for pneumonia. Will get thoracentesis and thoracentesis today. He is resting with eyes closed. 07/17- paracentesis and thorasentesis completed yesterday. he is alert and oriented today, pleasant, denies pain 07/18- reports feeling well - but abd is distended. no sob. Review of Systems Review of Systems: SHORTNESS OF BREATH, ABDOMINAL DISTENSION, POOR PER ORALLY INTAKE Constitutional: Constitutional: Denies body ache(s) and Denies chills Cardiovascular: Cardiovascular: Denies chest pain Respiratory: Respiratory: Denies chest congestion and Denies cough Gastrointestinal: Gastrointestinal: Denies abdominal pain and Denies melena Exam Narrative: LAYING IN A STRETCHER Const: General: comfortable, no acute distress, well developed, alert, awake, ill appearing chronically and underweight Nutritional Appearance: underweight Orientation/consciousness: patient oriented x3 HENMT: Head
[2024-07-18 12:47] LABS: Glucose Point of Care 172 mg/dl (65-105)
[2024-07-18 14:00] VITALS: BP 114/45; PULSE 61; RESP 20; TEMP 36.9; O2SAT 99
[2024-07-18 17:34] LABS: Glucose Point of Care 181 mg/dl (65-105)
[2024-07-18 20:28] VITALS: PULSE 68
[2024-07-18] MEDS: levoFLOXacin 750 MG TABLET PO (20:28)
[2024-07-18] MEDS: SIMVASTATIN 20 MG TABLET PO (20:28)
[2024-07-18] MEDS: INSULIN GLARGINE (*BKC) 100 UNITS/ML 13 UNITS SUB-Q (20:29)
[2024-07-18 20:35] LABS: Glucose Point of Care 193 mg/dl (65-105)
[2024-07-18 21:19] VITALS: BP 115/55; PULSE 61; RESP 18; TEMP 37; O2SAT 97
[2024-07-19] MEDS: ALBUMIN HUMAN 25% 12.5 GM/50ML 50 ML IVPB ×2 (05:00→11:24)
[2024-07-19 05:48] LABS: Hematocrit 30.8 % (42.0-52.0); Hemoglobin 9.5 g/dL (14.0-18.0); Mean Corpuscular HGB Conc 30.8 g/dl (32-36); Mean Corpuscular Hemoglobin 30.1 pg (26-34); Mean Corpuscular Volume 97.5 fl (80-100); Mean Platelet Volume 10.9 fl (7.4-10.4); Platelet Count Result 116 k/mm3 (150-375); Red Blood Count 3.16 M/mm3 (4.6-6.20); White Blood Count 3.2 K/mm3 (4.5-10.0)
[2024-07-19 06:00] VITALS: BP 107/58; PULSE 62; RESP 18; TEMP 36.8; O2SAT 97
[2024-07-19 06:00] LABS: Anion Gap 6 mmol/L (4-12); Blood Urea Nitrogen 14 mg/dL (9-20); Calcium 8.9 mg/dL (8.4-10.2); Carbon Dioxide 26 mmol/L (22-30); Chloride 102 mmol/L (98-107); Estimated CRCL calculation 71 ml/min; Estimated Glomerular Filt Rate > 60; Glucose 159 mg/dL (65-110); Sodium 134 mmol/L (137-145)
[2024-07-19] MEDS: rifAXIMin 550 MG TABLET PO (08:29)
[2024-07-19] MEDS: EMPAGLIFLOZIN 25 MG TABLET PO (08:29)
[2024-07-19] MEDS: ACYCLOVIR 400 MG TABLET PO (08:29)
[2024-07-19] MEDS: POTASSIUM CHLORIDE 20 MEQ PACKET (FOR LIQUID) PO (08:29)
[2024-07-19] MEDS: LACTULOSE 20 GM/30 ML UDC PO (08:29)
[2024-07-19 08:30] VITALS: PULSE 64
[2024-07-19] MEDS: lisinopriL 10 MG TABLET PO (08:30)
[2024-07-19] MEDS: SUCRALFATE 1 GM TABLET PO ×2 (08:30→11:38)
[2024-07-19] MEDS: PANTOPRAZOLE 40 MG TABLET PO (08:30)
[2024-07-19] MEDS: SPIRONOLACTONE 50 MG TABLET PO (08:30)
[2024-07-19] MEDS: PROPRANOLOL HCL 10 MG TABLET PO (08:30)
[2024-07-19] MEDS: FLUTICASONE PROPIONATE 0.05% NA SPR 16 GM BTL (*BKC) 2 SPRAY NASAL (08:32)
[2024-07-19] MEDS: FERROUS SULFATE 325 MG TABLET DR PO (08:39)
[2024-07-19 08:45] LABS: Glucose Point of Care 123 mg/dl (65-105)
[2024-07-19 11:37] LABS: Glucose Point of Care 152 mg/dl (65-105)
--- NOTE | 2024-07-19 13:42 | PM.DS ---
DS: Admitting Diagnosis Discharge Date 07/19 Admitting Diagnosis ascites, sob DS: Discharge Diagnosis Discharge Diagnosis (1) Pneumonia: Qualifiers: Laterality: bilateral Lung location: unspecified part of lung Pneumonia type: due to unspecified organism Qualified Code(s): J18.9 - Pneumonia, unspecified organism Code(s): J18.9 - Pneumonia, unspecified organism Status: Acute Assessment and Plan: Patient started on Rocephin Zithromax and vanc, cultures- negative - switched to PO antibiotics - anticipate discharge home 07/19 if stable overnight (2) Pleural effusion: Code(s): J90 - Pleural effusion, not elsewhere classified Status: Acute Assessment and Plan: Thoracentesis in a.m. - cultures collected- pending (3) Type 2 diabetes mellitus with hyperglycemia: Code(s): E11.65 - Type 2 diabetes mellitus with hyperglycemia Status: Acute Assessment and Plan: Continue [employer] sitagliptin Holding metformin - will add AccuCheck ac/hs - hypoglycemia protocol - 10 units lantus, SS - monitor bs AND adjust therapy 07/17- BS elevated- will increase lantus to 13 units at hs (4) Chronic obstructive pulmonary disease: Code(s): J44.9 - Chronic obstructive pulmonary disease, unspecified Status: Acute Assessment and Plan: Continue home med (5) Gastroesophageal reflux disease: Code(s): K21.9 - Gastro-esophageal reflux disease without esophagitis Status: Acute Assessment and Plan: PPI (6) Paroxysmal atrial fibrillation: Code(s): I48.0 - Paroxysmal atrial fibrillation Status: Acute Assessment and Plan: Rate controlled (7) Cirrhosis of liver with ascites: Qualifiers: Hepatic cirrhosis type: unspecified hepatic cirrhosis Qualified Code(s): K74.60 - Unspecified cirrhosis of liver; R18.8 - Other ascites Code(s): K74.60 - Unspecified cirrhosis of liver; R18.8 - Other ascites Status: Acute Assessment and Plan: Continue lactulose - 07/18 distended today- will order US guided paracentesis (8) Ascites: Code(s): R18.8 - Other ascites Status: Acute Assessment and Plan: Paracentesis in a.m. DS: Summary Hospital Course Hospital Course: SHORTNESS OF BREATH Narrative retrieved from H/P: THIS IS A 79-YEAR-OLD MALE WITH PAST MEDICAL HISTORY SIGNIFICANT FOR HEPATIC CIRRHOSIS, RECURRENT ASCITES, RECURRENT PARACENTESES, PATIENT HAS HAD PARACENTESES DRAIN 5 L HOWEVER RETURNS TO THE EMERGENCY ROOM AFTER BEING ADVISED BY HIS PRIMARY CARE PHYSICIAN DUE TO REACCUMULATION ON OF ASCITIC FLUID WITH TENSION ASCITES AND SHORTNESS OF BREATH. PATIENT DENIES ANY FEVERS, RIGORS, CHILLS, NAUSEA, VOMITING, BLEEDING. PRELIMINARY WORKUP WAS SIGNIFICANT FOR CT OF ABDOMEN AND PELVIS WITH MODERATE AMOUNT OF ASCITES CT OF THE CHEST WAS SIGNIFICANT FOR MODERATE PLEURAL EFFUSION BILATERALLY AND PNEUMONIA WELL. PATIENT HAS BEEN ADMITTED FOR FURTHER EVALUATION MANAGEMENT AND TREATMENT 07/16- pt is seen and examined. He is on rocephin and zithromax for pneumonia. Will get thoracentesis and thoracentesis today. He is resting with eyes closed. 07/17- paracentesis and thorasentesis completed yesterday. he is alert and oriented today, pleasant, denies pain 07/18- reports feeling well - but abd is distended. no sob. 07/19 paracentesis completed yesterday- feeling a lot better today. Wants to go home. Has GI in [facility]- he has an jamil next week. Time Spent with Patient Time attestation: Total time spent providing and/or coordinating discharge services: Exam Narrative: LAYING IN A STRETCHER Const: General: comfortable, no acute distress, well developed, alert, awake, ill appearing chronically and underweight Nutritional Appearance: underweight Orientation/consciousness: patient oriented x3 HENMT: Head: normal to inspection, normocephalic and atraumatic Ears: hearing grossl
[2024-07-20 15:18] LABS: Glucose Pleural Fluid 215 mg/dL
[2024-07-21 13:19] LABS: Albumin Pleural Fluid 0.7 g/dL; Amylase, Pleural Fluid 19 U/L; LDH Pleural Fluid 90 U/L; Total Protein Pleural Fluid <3.0 g/dL
[2024-07-21 13:19] LABS: Albumin Peritoneal Fluid 0.3 g/dL; Amylase Peritoneal Fluid <10 U/L; Glucose Peritoneal Fluid 225 mg/dL; Total Protein Peritoneal Fluid <3.0 g/dL
--- NOTE | 2024-07-29 10:25 | PC.NURSE ---
Ascites fluid is negative for Aerobic and Anaerobic bottles.
== END 2024-07-19 14:15 | disposition home or self-care (01) | DRG 186 ==
LOC: ANHED 23:17 → ANH3MEDSUR 07-16 00:29 → ANH3MED 07-16 01:00
PROVIDERS: Physician Assistant; Admitting Provider Internal Medicine; Emergency Provider Physician Assistant; PCP Internal Medicine; Visit Provider Nurse Practitioner
DX: J90 Pleural effusion, not elsewhere classified (principal); J18.9 Pneumonia, unspecified organism; J44.0 Chronic obstructive pulmonary disease with (acute) lower respiratory infection; R18.8 Other ascites; K74.60 Unspecified cirrhosis of liver; E11.65 Type 2 diabetes mellitus with hyperglycemia; I48.0 Paroxysmal atrial fibrillation; K21.9 Gastro-esophageal reflux disease without esophagitis; I50.9 Heart failure, unspecified; E78.5 Hyperlipidemia, unspecified; D50.9 Iron deficiency anemia, unspecified; Z20.822 Contact with and (suspected) exposure to COVID-19; Z96.1 Presence of intraocular lens; Z95.810 Presence of automatic (implantable) cardiac defibrillator; Z85.72 Personal history of non-Hodgkin lymphomas; Z85.828 Personal history of other malignant neoplasm of skin; Z98.49 Cataract extraction status, unspecified eye; Z87.891 Personal history of nicotine dependence; Z98.1 Arthrodesis status; R63.6 Underweight; Z68.22 Body mass index [BMI] 22.0-22.9, adult
CPT/HCPCS: 32555; 36415; 49083; 70450; 71045; 71046; 71275; 74177; 80048; 80053; 80202; 82042; 82150; 82565; 82945; 82948; 83615; 83880; 83986; 84157; 84478; 84484; 85025; 85027; 85610; 85730; 87040; 87070; 87075; 87205; 87637; 88108; 88305; 89051; 93005; 96365; 96368; 96375; 99199; 99285; A9270; G0378; J0456; J0696; J1815; J1940; J3370; P9047; Q9967

== ENCOUNTER 2024-09-23 12:33 | Outpatient (RCR) | payer OTHER, SELFPAY ==
[2024-08-26 10:55] LABS: Mean Platelet Volume 11.4 fl (7.4-10.4); Platelet Count Result 128 k/mm3 (150-375)
[2024-08-26 11:12] LABS: INR 1.2; Prothrombin Time 15.4 Seconds (11.1-14.7)
--- NOTE | ~2024-09-23 | US_ITS ---
EXAMINATION: US paracentesis abd w/image DATE: 08/05/2024 11:31 INDICATION: Ascites. Non-Hodgkin's lymphoma and intra-abdominal lymph nodes. TECHNIQUE: The procedure and its risks and benefits were discussed with the patient. Potential risks discussed included bleeding and infection. The skin was prepped and draped in sterile fashion. 1% lid ocaine was used for local anesthesia. Under ultrasound guidance, a 5 Fr catheter with trochar was adv anced into the ascites in the right lower quadrant. Fluid was aspirated into vacuum bottles. The cath eter was removed, and a dressing was applied. There were no immediate complications. FINDINGS: Ultrasound images demonstrate ascites and the catheter within the fluid. IMPRESSION: 1. Successful ultrasound-guided paracentesis yielding 5000 mL of cloudy yellow fluid. Reviewed, dictated and finalized at location A.
--- NOTE | ~2024-09-23 | US_ITS ---
ULTRASOUND-GUIDED PARACENTESIS INDICATION: ascites due to cirrhosis . COMPARISON: 09/16/2024 TECHNIQUE/FINDINGS: All risks, benefits, and alternatives of this procedure were thoroughly discussed with the patient an d all questions were answered. The time out procedure was performed and the patient was properly taurus ntified. Witnessed written and verbal informed consent was then obtained from the patient. The sonographic ev aluation of the abdomen demonstrated a large amount of anechoic ascitic fluid in the left lower quadr ant of the abdomen which was targeted for paracentesis. Following local analgesia with 1% lidocaine, a centesis catheter was inserted into the left peritoneal cavity, and the needle was removed. A tota l of 3800 cc of clear yellow fluid was drained. The catheter removed and a sterile dressing applied. The patient tolerated the procedure without difficulty and was discharged from the radiology Departme after appropriate observation, as per protocol. Impression: 1. Technically successful ultrasound guided left lower quadrant paracentesis yielding 3800 cc of rema ar yellow fluid. 2. No immediate complications. Reviewed, dictated and finalized at location A. 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 Technically successful ultrasound guided left lower quadrant paracentesis y ielding 3800 cc of clear yellow fluid. 2. No immediate complications.
--- NOTE | ~2024-09-23 | US_ITS ---
EXAMINATION: US paracentesis abd w/image DATE: 08/12/2024 11:06 INDICATION: Ascites. TECHNIQUE: The procedure and its risks, benefits, and alternatives were discussed with the patient. P otential risks discussed included bleeding and infection. The skin was prepped and draped in sterile fashion. 1% lidocaine was used for local anesthesia. Under ultrasound guidance, a 5 Fr catheter with trochar was advanced into the ascites in the left lower quadrant. Fluid was aspirated. The catheter w as removed, and a dressing was applied. There were no immediate complications. FINDINGS: Ultrasound images demonstrate ascites and the catheter within the fluid. IMPRESSION: 1. Successful ultrasound-guided paracentesis yielding 5000 mL of clear, yellow fluid. Reviewed, dictated and finalized at location A.
--- NOTE | ~2024-09-23 | US_ITS ---
EXAMINATION: US paracentesis abd w/image DATE: 07/23/2024 10:23 INDICATION: Ascites. TECHNIQUE: The procedure and its risks, benefits, and alternatives were discussed with the patient. P otential risks discussed included bleeding and infection. The skin was prepped and draped in sterile fashion. 1% lidocaine was used for local anesthesia. Under ultrasound guidance, a 5 Fr catheter with trochar was advanced into the ascites in the left lower quadrant. Fluid was aspirated. The catheter w as removed, and a dressing was applied. There were no immediate complications. FINDINGS: Ultrasound images demonstrate ascites and the catheter within the fluid. IMPRESSION: 1. Successful ultrasound-guided paracentesis yielding 3100 mL of yellow fluid. Reviewed, dictated and finalized at location A.
--- NOTE | ~2024-09-23 | US_ITS ---
EXAMINATION: US paracentesis abd w/image DATE: 09/09/2024 14:32 INDICATION: Ascites. TECHNIQUE: The procedure and its risks, benefits, and alternatives were discussed with the patient. P otential risks discussed included bleeding and infection. The skin was prepped and draped in sterile fashion. 1% lidocaine was used for local anesthesia. Under ultrasound guidance, a 5 Fr catheter with trochar was advanced into the ascites in the left lower quadrant. Fluid was aspirated. The catheter w as removed, and a dressing was applied. There were no immediate complications. FINDINGS: Ultrasound images demonstrate ascites and the catheter within the fluid. IMPRESSION: 1. Successful ultrasound-guided paracentesis yielding 3400 mL of yellow fluid. Reviewed, dictated and finalized at location A. E TOUR
--- NOTE | ~2024-09-23 | US_ITS ---
EXAMINATION: US paracentesis abd w/image DATE: 07/29/2024 13:27 INDICATION: Ascites. TECHNIQUE: The procedure and its risks, benefits, and alternatives were discussed with the patient. P otential risks discussed included bleeding and infection. The skin was prepped and draped in sterile fashion. 1% lidocaine was used for local anesthesia. Under ultrasound guidance, a 5 Fr catheter with trochar was advanced into the ascites in the left lower quadrant. Fluid was aspirated. The catheter w as removed, and a dressing was applied. There were no immediate complications. FINDINGS: Ultrasound images demonstrate ascites and the catheter within the fluid. IMPRESSION: 1. Successful ultrasound-guided paracentesis yielding 4600 mL of yellow fluid. Reviewed, dictated and finalized at location A.
--- NOTE | ~2024-09-23 | US_ITS ---
EXAMINATION: US paracentesis abd w/image DATE: 09/16/2024 11:05 INDICATION: Ascites. TECHNIQUE: The procedure and its risks, benefits, and alternatives were discussed with the patient. P otential risks discussed included bleeding and infection. The skin was prepped and draped in sterile fashion. 1% lidocaine was used for local anesthesia. Under ultrasound guidance, a 5 Fr catheter with trochar was advanced into the ascites in the right lower quadrant. Fluid was aspirated. The catheter was removed, and a dressing was applied. There were no immediate complications. FINDINGS: Ultrasound images demonstrate ascites and the catheter within the fluid. IMPRESSION: 1. Successful ultrasound-guided paracentesis yielding 5000 mL of pale yellow fluid. Reviewed, dictated and finalized at location A. 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 Successful ultrasound-guided paracentesis yielding 5000 mL of pale yellow f luid.
--- NOTE | ~2024-09-23 | US_ITS ---
EXAMINATION: US paracentesis abd w/image DATE: 07/01/2024 14:19 INDICATION: Non-Hodgkin's lymphoma and ascites TECHNIQUE: The procedure and its risks and benefits were discussed with the patient. Potential risks discussed included bleeding and infection. The skin was prepped and draped in sterile fashion. 1% lid ocaine was used for local anesthesia. Under ultrasound guidance, a 5 Fr catheter with trochar was adv anced into the ascites in the right lower quadrant. Fluid was aspirated into vacuum bottles. The cath eter was removed, and a dressing was applied. There were no immediate complications. FINDINGS: Ultrasound images demonstrate ascites and the catheter within the fluid. IMPRESSION: 1. Successful ultrasound-guided paracentesis yielding 5000 mL of yellowish fluid. Reviewed, dictated and finalized at location A. IMPRESSION: 1. Successful ultrasound-guided paracentesis yielding 5000 mL of yellowish flu id.
--- NOTE | ~2024-09-23 | US_ITS ---
EXAMINATION: US paracentesis abd w/image DATE: 08/26/2024 12:15 INDICATION: Ascites. TECHNIQUE: The procedure and its risks, benefits, and alternatives were discussed with the patient. P otential risks discussed included bleeding and infection. The skin was prepped and draped in sterile fashion. 1% lidocaine was used for local anesthesia. Under ultrasound guidance, a 5 Fr catheter with trochar was advanced into the ascites in the right lower quadrant. Fluid was aspirated. The catheter was removed, and a dressing was applied. There were no immediate complications. FINDINGS: Ultrasound images demonstrate ascites and the catheter within the fluid. IMPRESSION: 1. Successful ultrasound-guided paracentesis yielding 4700 mL of yellow fluid. Reviewed, dictated and finalized at location A.
--- NOTE | ~2024-09-23 | US_ITS ---
EXAMINATION: US paracentesis abd w/image DATE: 07/15/2024 13:40 INDICATION: Ascites. Non-Hodgkin lymphoma of intra-abdominal wall. TECHNIQUE: The procedure and its risks, benefits, and alternatives were discussed with the patient. P otential risks discussed included bleeding and infection. The skin was prepped and draped in sterile fashion. 1% lidocaine was used for local anesthesia. Under ultrasound guidance, a 5 Fr catheter with trochar was advanced into the ascites in the left lower quadrant. Fluid was aspirated. The catheter w as removed, and a dressing was applied. There were no immediate complications. FINDINGS: Ultrasound images demonstrate ascites and the catheter within the fluid. IMPRESSION: 1. Successful ultrasound-guided paracentesis yielding 5000 mL of yellow fluid. Reviewed, dictated and finalized at location A.
== END 2024-09-29 23:59 | disposition home or self-care (01) ==
LOC: ANHIMG 12:33
PROVIDERS: Radiology Diagnostic Radiology; PCP Internal Medicine; Visit Provider Internal Medicine Hematology & Oncology
DX: C85.93 Non-Hodgkin lymphoma, unspecified, intra-abdominal lymph nodes (principal); K70.31 Alcoholic cirrhosis of liver with ascites
CPT/HCPCS: 36415; 49083; 85049; 85610

== ENCOUNTER 2024-12-22 11:45 | Outpatient (CLI) | payer OTHER, SELFPAY ==
[2024-12-22 12:09] LABS: Basophils Percent Auto 0.5 % (0.2-1.2); Eosinophils Absolute Auto 0.1 K/mm3 (0-0.3); Eosinophils Percent Auto 2.8 % (0-4.4); Hematocrit 23.5 % (42.0-52.0); Hemoglobin 7.2 g/dL (14.0-18.0); Immature Granulocyte Absolute 0.13 K/mm3 (0.00-0.031); Immature Granulocyte Percent A 3.3 % (0-0.5); Lymphocytes Absolute Auto 0.36 K/mm3 (0.9-3.2); Lymphocytes Percent Auto 9.1 % (18.3-44.2); Mean Corpuscular HGB Conc 30.6 g/dl (32-36); Mean Corpuscular Hemoglobin 31.9 pg (26-34); Mean Platelet Volume 10.9 fl (7.4-10.4); Monocytes Absolute Auto 0.4 K/mm3 (0.1-0.6); Monocytes Percent Auto 10.2 % (2.6-8.5); Neutrophils Absolute Auto 2.9 K/mm3 (1.3-6.7); Neutrophils Percent Auto 74.1 % (45.5-73.1); Platelet Count Result 147 k/mm3 (150-375); Red Blood Count 2.26 M/mm3 (4.6-6.20); White Blood Count 3.9 K/mm3 (4.5-10.0)
[2024-12-22 13:29] LABS: Iron 71 ug/dL (49-181)
[2024-12-22 13:30] LABS: Alanine Aminotransferase 83 U/L (6-50); Albumin Level 2.6 g/dL (3.5-5.1); Alkaline Phosphatase 509 U/L (38-126); Anion Gap 9 mmol/L (4-12); Aspartate Amino Transferase 64 U/L (17-59); Bilirubin,Total 1.2 mg/dL (0.2-1.3); Blood Urea Nitrogen 22 mg/dL (9-20); Calcium 9.1 mg/dL (8.4-10.2); Carbon Dioxide 18 mmol/L (22-30); Chloride 109 mmol/L (98-107); Cholesterol 108 mg/dL (0-200); Estimated Glomerular Filt Rate 53; Glucose 263 mg/dL (65-110); HDL Direct 54 mg/dL; Magnesium 2.1 mg/dL (1.6-2.3); Sodium 136 mmol/L (137-145); Triglycerides 39 mg/dL (<150)
[2024-12-22 13:41] LABS: LDL Cholesterol Direct 40 mg/dL
[2024-12-22 13:44] LABS: Percent Iron Saturation 33 % (20-50)
--- OUTSIDE RECORDS SUMMARY | 2024-12-22 14:36 | XMS_ITS | Encounter Summary ---
Author Organization [facility] Address [address] [place] [address] Care Team Providers Care Proteomics Scientist Name Role Phone Moses Conn MD Primary Care Provider [phone] Encounter Details Date Type Department Care Team ([facility] Contact Info) Description 01/29/2024 Telephone [facility] Oncology and Hematology - [place] [address] [place] [address] Anish Perez MD [facility] [address] [place] [id number] Social History Tobacco Use Types Packs/Day Years Used Date Smoking Tobacco: Former Cigars Smokeless Tobacco: Never Comments:quit over 25 years ago Alcohol Use Standard Drinks/Week Comments Yes 0 (1 standard drink = 0.6 oz pur e alcohol) occasional Sex and Gender Information Value Date Recorded Sex Assigned at Not on file Legal Sex Male 3:06 PM CDT Gender Identity Not on file Sexual Orientation Not on file documented as of this encounter Plan of Treatment Upcoming Encounters Date Type Department Care Team ([facility] Contact Info) Description 01/01/2025 11:30 AM STAFF HOME THERAPY RN Office Visit [facility] Oncology and Hematology - [place] [address] [place] [address] Anish Perez MD [address] [place] [phone] documented as of this encounter Visit Diagnoses Not on filedocumented in this encounter Care Teams Proteomics Scientist Relationship Specialty Start Date End Date Moses Conn MD [address] [place] [id number] PCP - General Internal Medicine 04/12/22 documented as of this encounter
--- OUTSIDE RECORDS SUMMARY | 2024-12-22 14:36 | XMS_ITS | Referral Summary ---
Author Organization [facility] Address [address] [place] [address] Care Team Providers Care Rope Rider Name Role Phone Moses Conn MD Primary Care Provider [phone] Anjelica Fish MD Unavailable [phone] Encounters Date Type Department Care Team Description 12/19/2024 11:30 AM POWER BRAKE OPERATOR Office Visit [facility] [address] [place] [address] [phone] Fanny Hunt MD Nonrheumatic aortic valve stenosis (Primary Dx); Tachy-fela syndrome (CMS/HCC) (HCC); Paroxysmal A-fib (CMS/HCC) (HCC); Benign essential hypertension; Mixed hyperlipidemia 12/16/2024 Telephone [facility] [address] [place] [phone] Fanny Hunt MD blood test results 12/15/2024 Orders Only [facility] [address] [place] [address] [phone] Fanny Hunt MD 12/15/2024 Orders Only [facility] [address] [place] [address] [phone] Fanny Hunt MD 12/03/2024 Telephone [facility] [address] [place] [phone] Fanny Hunt MD 11/26/2024 10:15 AM POWER BRAKE OPERATOR - 11/26/2024 11:59 PM POWER BRAKE OPERATOR Hospital Encounter [facility] OP Cardiac Testing [address] [place] [address] Other form of dyspnea; LBBB (left bundle branch block); Nonrheumatic mitral valve regurgitation; Essential hypertension; Mixed hyperlipidemia; Abdominal aortic atherosclerosis (HCC); Aortic valve stenosis, moderate; Nonrheumatic aortic valve stenosis; Paroxysmal A-fib (CMS/HCC) ([facility]); Pacemaker Discharge Disposition: Discharge to home or self care 10/03/2024 8:45 AM POWER BRAKE OPERATOR Ancillary Procedure [facility] [address] [facility] [address] [phone] Tachy-fela syndrome (CMS/HCC) ([facility]); Pacemaker from Last 3 Months Allergies Active Allergy Reactions Criticality Noted Date Comments Cefditoren Rash Medium 05/27/2012 Tetracycline Rash Medium 05/27/2012 Medications cholecalciferol (VITAMIN D-3) 1,000 unit capsule Take 1 capsule (1,000 Units total) by mouth daily Active metFORMIN (GLUCOPHAGE) 1,000 mg tablet Take 1 tablet (1,000 mg total) by mouth 2 (two) times a day 02/26/20 21 Active nystatin cream Apply 1 application (deactivated) topically as needed 04/19/20 21 Active simvastatin (ZOCOR) 20 mg tablet Take 1 tablet (20 mg total) by mouth daily 03/03/20 21 Active SITagliptin (JANUVIA) 50 mg tablet Take 1 tablet (50 mg total) by mouth 2 (two) times a day Active acetaminophen (TYLENOL) 500 mg tablet Take 1 tablet (500 mg total) by mouth every 6 (six) hours as needed for pain Active fluticasone propionate (FLONASE) 50 mcg/actuation nasal spray Administer 1 spray into each nostril daily Active omeprazole (PriLOSEC) 40 mg capsule Take 1 capsule (40 mg total) by mouth 2 (two) times a day 12/26/19 22 Active ferrous sulfate 325 mg (65 mg of elemental iron) tablet Take 1 tablet (325 mg total) by mouth 2 times daily 01/10/20 22 Active cyanocobalamin (Vitamin B-12) 1,000 mcg tablet Take 1 tablet (1,000 mcg total) by mouth daily Active hydroCHLOROthiazid e (HYDRODIURIL) 12.5 mg tablet Take 1 tablet (12.5 mg total) by mouth daily Active sucralfate (CARAFATE) 1 gram tablet Take 1 tablet (1 g total) by mouth 4 (four) times a day Active Jardiance 25 mg tablet Take 1 tablet (25 mg total) by mouth daily Active furosemide (LASIX) 20 mg tablet Take 2 tablets (40 mg total) by mouth daily Active ondansetron ODT (ZOFRAN-ODT) 4 mg disintegrating tablet Take 1 tablet (4 mg total) by mouth every 8 (eight) hours as needed 01/25/20 24 Active spironolactone (ALDACTONE) 50 mg tablet Take 1 tablet (50 mg total) by mouth every morning 01/20/20 24 Active rifAXIMin (XIFAXAN) 550 mg tablet Take 1 tablet (550 mg total) by mouth 2 (two) times a day 01/20/20 24 Active carvediloL (COREG) 6.25 mg tabletIndications: Paroxysmal atrial fibrillation (CMS/HCC) (HCC) Take 1 tablet (6.25 mg total) by mouth 2 (two) times a day with meals 180 tablet 3 07/04/20 24 Active Active Problems Problem Noted Date Diagnosed Date Decompensated cirrhosis 11/06/2024 Altered mental status 10/23/2024 Fall 10/23/2024 Hepatorenal syndrome (CMS/HCC) 10/23/2024 Encephalopathy, unspecified 09/30/2024 Other dysphagia 09/30/2024 Vitamin B12 deficiency 09/30/2024 Transient alteration of awareness 09/28/2024 Enrolled in chronic care management 09/15/2024 Metabolic dysfunction-associ ated steatotic liver disease (MASLD) 09/02/2024 Chronic obstructive pulmonary disease 07/15/2024 Confusion 07/15/2024 Erosive gastritis 07/15/2024 Esophageal varices 07/15/2024 Fecal occult blood test positive 07/15/2024 Generalized edema 07/15/2024 Hepatic encephalopathy 07/15/2024 Myalgia 07/15/2024 Non-Hodgkin's lymphoma 07/15/2024 Type 2 diabetes mellitus with hyperglycemia (CMS /HCC) 02/14/2024 Iron deficiency anemia 02/14/2024 Other ascites 01/08/2024 Other cirrhosis of liver 01/08/2024 SBO (small bowel obstruction) (CMS/HCC) 09/25/20 23 Chemotherapy-induced neutropenia 09/25/2023 Hyponatremia 09/25/2023 Tachy-fela syndrome (CMS/HCC) 08/10/2023 Syncope and collapse 08/10/2023 Pacemaker 07/18/2023 Overview (06/02/2024): Last Assessment & Plan: Patient has sick sinus syndrome with tachy bradyarrhythmia atrial fibrillation and bradycardia requiring permanent pacemaker which is functioning is being monitored Follicular lymphoma 02/26/2023 Follicular non-Hodgkin's lymphoma 02/26/2023 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 Abdominal aortic atherosclerosis 01/15/2023 Iron deficiency 01/15/2023 Nonrheumatic aortic valve stenosis 11/17/2022 Combined forms of age-related cataract of both e yes 08/18/2022 Other dietary vitamin B12 deficiency anemia 05/06 Mesenteric lymphadenopathy 05/03/2022 Chronic anemia 04/12/2022 Normocytic anemia 04/12/2022 Pancytopenia 04/12/2022 Status post biventricular cardiac pacemaker inse rtion 12/26/2021 Dizziness 12/10/2021 Nonrheumatic aortic valve stenosis 10/12/2021 Paroxysmal A-fib (CMS/HCC) 06/01/2021 Assessment & Plan (03/23/2023 9:45 AM CDT): History of atrial fibrillation with a controlled rate patient is on Eliquis tolerating well no side effects plan to continue same Paroxysmal atrial fibrillation (CMS/HCC) 021 Overview (06/02/2024): Last Assessment & Plan: History of atrial fibrillation with a controlled rate patient is on Eliquis tolerating well no side effects plan to continue same Paroxysmal atrial fibrillation ([facility]) 021 Overview (12/18/2024): Last Assessment & Plan: History of atrial fibrillation with a controlled rate patient is on Eliquis tolerating well no side effects plan to continue same Last Assessment & Plan: History of atrial fibrillation with a controlled rate patient is on Eliquis tolerating well no side effects plan to continue same Last Assessment & Plan: History of atrial fibrillation with a controlled rate patient is on Eliquis tolerating well no side effects plan to continue same LBBB (left bundle branch block) 05/15/2021 Aortic valve stenosis 05/15/2021 Assessment & Plan (03/23/2023 9:45 AM CDT): Calcific aortic valve disease with moderate aortic stenosis gradient is 37 Hg patient not having any symptoms of chest pain shortness breath dizziness patient's 2nd heart sounds audible lost echocardiogram was October of last year will repeat once a year or if there are any new symptoms Mitral valve regurgitation 05/15/2021 Assessment & Plan (03/23/2023 9:46 AM CDT): Patient has mitral regurgitation which is minimal patient is ejection fraction left ventricular size normal patient not having any symptoms of shortness of breath or any other signs of for congestive heart failure plan to continue monitoring Diabetes mellitus type 2 in nonobese ([facility]) 0 05/15/2021 Essential hypertension 05/15/2021 Bradycardia 05/15/2021 ALEMAN (dyspnea on exertion) 05/14/2021 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 02/18/2021 Mitral valve regurgitation 11/04/2020 Overview (06/02/2024): Last Assessment & Plan: Patient has mitral regurgitation which is minimal patient is ejection fraction left ventricular size normal patient not having any symptoms of shortness of breath or any other signs of for congestive heart failure plan to continue monitoring Gastroesophageal reflux disease without esophagi tis 08/26/2020 Actinic keratoses 09/09/2018 Aortic valve stenosis, moderate 08/20/2017 Allergic rhinitis 03/06/2013 Vitamin D deficiency 05/28/2012 Hyperlipidemia 05/27/2012 Type 2 diabetes mellitus 05/27/2012 Benign essential hypertension 05/27/2012 Pacemaker Assessment & Plan (03/23/2023 9:45 AM CDT): Patient has sick sinus syndrome with tachy bradyarrhythmia atrial fibrillation and bradycardia requiring permanent pacemaker which is functioning is being monitored Anemia Resolved Problems Problem Noted Date Diagnosed Date Resolved Date Bradycardia 05/15/2021 08/10/2023 Social History Tobacco Use Types Packs/Day Years Used Date Smoking Tobacco: Former Cigarettes 2 25 1 976 - 2000 Cigars Smokeless Tobacco: Never Tobacco Cessation:Counseling Given: Not Answered Alcohol Use Standard Drinks/Week Comments Not Currently 0 (1 standard drink = 0.6 oz pur e alcohol) occasionally [employer] Utilities Answer Date Recorded In the past 12 months has [employer], gas, oil, or water [employer] threatened to shut off services in your home? No 09/25/2023 Social Connection and Isolat ion Panel [NHANES] Answer Date Recorded In a typical week, how many times do you talk on the phone with family, friends, or neighbors? More than three times a week 09/25/2023 How often do you get togethe r with friends or relatives? Three times a week 09/25/2023 How often do you attend chur ch or caodaism services? Never 09/25/2023 Do you belong to any clubs o r organizations such as voodoo groups, unions, fraternal or athletic groups, or school groups? No 09/25/2023 How often do you attend meet ings of the clubs or organizations you belong to? Never 09/25/2023 Are you , , di vorced, , never , or living with a partner? 09/25/2023 AUDIT-C Answer Date Recorded Q1: How often do you have a drink containing alc ohol? Monthly or less 02/17/2022 Q2: How many drinks containi ng alcohol do you have on a typical day when you are drinking? 1 or 2 02/17/2022 Q3: How often do you have si x or more drinks on one occasion? Never 02/17/2022 Overall Financial Resource Strain (CARDIA) Answe r Date Recorded How hard is it for you to pa y for the very basics like food, housing, medical care, and heating? Not hard at all 09/25/2023 Hunger Vital Sign Answer Date Recorded Within the past 12 months, y ou worried that your food would run out before you got the money to buy more. Never true 09/25/20 23 Within the past 12 months, t he food you bought just didn't last and you didn't have money to get more. Never true 09/25/2023 PRAPARE - Transportation Answer Date Re corded In the past 12 months, has l ack of transportation kept you from medical appointments or from getting medications? No 09/06 In the past 12 months, has l ack of transportation kept you from meetings, work, or from getting things needed for daily living? No 09/25/2023 Housing Stability Vital Sign Answer Jose e Recorded In the last 12 months, was t here a time when you were not able to pay the mortgage or rent on time? No 09/25/2023 In the last 12 months, how many places have you lived? 1 09/25/2023 In the last 12 months, was t here a time when you did not have a steady place to sleep or slept in a custodial (including now)? No 09/25/2023 Personal Safety Answer Date Recorded Have you ever been in or are you currently in a harmful physical or emotional relationship or is someone making you feel afraid or unsafe? Denies 09/25/2023 Sex and Gender Information Value Date Recorded Sex Assigned at Not on file Legal Sex Male 7:49 PM POWER BRAKE OPERATOR Gender Identity Not on file Sexual Orientation Not on file Occupation Industry Job Start Date Job End Date Retired Not on file Not on file Not on file Last Filed Vital Signs Vital Sign Reading Time Taken Comments Blood Pressure 134/60 12/19/2024 12:35 PM POWER BRAKE OPERATOR Pulse 63 12/19/2024 12:35 PM POWER BRAKE OPERATOR Temperature 36.6 C (97.9 F) 09/28/2023 1:07 PM POWER BRAKE OPERATOR Respiratory Rate 16 12/19/2024 12:35 PM POWER BRAKE OPERATOR Oxygen Saturation 99% 12/19/2024 12:35 PM POWER BRAKE OPERATOR Inhaled Oxygen Concentration - - Weight 57.7 kg (127 lb 1.6 oz) 12/19/2024 12:35 PM POWER BRAKE OPERATOR Height 162.6 cm (5' 4 ) 12/19/2024 12:35 PM POWER BRAKE OPERATOR Body Mass Index 21.82 12/19/2024 12:35 PM POWER BRAKE OPERATOR Plan of Treatment Not on file Medical Devices Implanted Type Area Clothes Drier Assembler Device Identifier Shelf Expiration Date Model / Serial / Lot [employer] [id number]/46 Tendril Sts 6fr 46cm Is-1 Connector Bipolar Active Fixation - [id number] Implanted:Qty: 1 on 12/14/2021 by Daily, Harley Mg MD at [facility] Lead [employer] [id number]/46 / / [employer] [id number] Assurity Mri [id number] Chamber Is-1 Connector Thk6mm Pacemaker - [id number] - [id number] Implanted:Qty: 1 on 12/14/2021 by Daily, Harley Mg MD at [facility] Pacemaker [employer] [id number] 04/04/2023 [id number] / [id number] / [employer] [id number] Assurity Mri [id number] 2 Chamber Is-1 Connector Thk6mm Pacemaker - [id number] - [id number] Implanted:Qty: 1 on 12/14/2021 by Daily, Harley Mg MD at [facility] Pacemaker [employer] [id number] 04/04/2023 [id number] / [id number] / Procedures Procedure Name Priority Date/Time Associated Diagnosis Comments SPECIMEN STATUS REPORT Routine 12/15/2024 11:19 AM POWER BRAKE OPERATOR CBC/DIFF AMBIGUOUS DEFAULT Routine 12/15/2024 11:19 AM POWER BRAKE OPERATOR THYROID FUNCTION CASCADE Routine 12/15/2024 11:19 AM POWER BRAKE OPERATOR COMPREHENSIVE METABOLIC PANEL Routine 12/15/2024 11:19 AM POWER BRAKE OPERATOR CBC WITH AUTO DIFFERENTIAL Routine 12/15/2024 11:19 AM POWER BRAKE OPERATOR TRANSTHORACIC ECHO (TTE) COMPLETE W DOPPLER/CF WO CONTRAST Routine 11/26/2024 11:45 AM POWER BRAKE OPERATOR Other form of dyspnea LBBB (left bundle branch block) Nonrheumatic mitral valve regurgitation Essential hypertension Mixed hyperlipidemia Abdominal aortic atherosclerosis (HCC) Aortic valve stenosis, moderate Nonrheumatic aortic valve stenosis Paroxysmal A-fib (CMS/HCC) (HCC) Pacemaker DEVICE CHECK - REMOTE Routine 10/06/2024 9:56 AM POWER BRAKE OPERATOR Tachy-fela syndrome (CMS/HCC) (HCC) Pacemaker LIPID PANEL Routine 05/26/2024 Mixed hyperlipidemia HEMOGLOBIN A1C Routine 12/11/2021 12:52 AM POWER BRAKE OPERATOR from Last 3 Months or Most Recently Relevant to Health Maintenance Results * Specimen Status Report (12/15/2024 11:19 AM POWER BRAKE OPERATOR) Specimen Status Report Comment [facility] - 01 Comment: Jacinta Guzmán CMP14 Default Jacinta Guzmán CMP14 Default A hand-written panel/profile was received from your office. In accordance with the [facility] Ambiguous Test Code Policy dated May 2003, we have completed your order by using the closest currently or formerly recognized AMA panel. We have assigned Comprehensive Metabolic Panel (14), Test Code #892803 to this request. If this is not the testing you wished to receive on this specimen, please contact the [facility] Client Inquiry/Technical Services Department to clarify the test order. We appreciate your business. 12/15/2024 11:1 9 AM POWER BRAKE OPERATOR 12/15/2024 Narrative [facility] - 12/16/2024 7:35 AM POWER BRAKE OPERATOR Performed at: - [address] [id number] [employer] Supervisor: Preston Valdez PhD, Phone: [phone] Fanny Hunt MD LAB BLOOD ORDERABLES Final Result [facility] - 01 * CBC/Diff Ambiguous Default (12/15/2024 11:19 AM POWER BRAKE OPERATOR) 12/15/2024 11:1 9 AM POWER BRAKE OPERATOR us Fanny Hunt MD LAB BLOOD ORDERABLES Final Result [facility] * Thyroid Function [place] (12/15/2024 11:19 AM POWER BRAKE OPERATOR) Pathologist [facility] [place] TSH 0.861 0.450 - 4.500 uIU/mL [facility] - 01 Comment: No apparent thyroid disorder. Additional testing not indicated. In rare instances, Secondary Hypothyroidism as well as Subclinical Hypothyroidism have been reported in some patients with normal TSH values. 12/15/2024 11:1 9 AM POWER BRAKE OPERATOR 12/15/2024 Narrative [facility] - 12/16/2024 4:09 PM POWER BRAKE OPERATOR Performed at: [address] [place] [id number] [employer] Supervisor: Preston Valdez PhD, Phone: [phone] Fanny Hunt MD LAB BLOOD ORDERABLES Final Result Performing Organization Address [facility] Co de Phone Number [facility] - 01 * (ABNORMAL) CBC with auto differential (12/15/2024 11:19 AM POWER BRAKE OPERATOR) Pathologist [facility] [place] WBC 4.8 3.4 - 10.8 x10E3/uL [facility] - 01 RBC 2.54(LL) 4.14 - 5.80 x10E6/uL [facility] - 01 Hgb 7.8(L) 13.0 - 17.7 g/dL [facility] - 01 Hct 25.1(L) 37.5 - 51.0 % [facility] - 01 MCV 99(H) 79 - 97 fL [facility] - 01 MCH 30.7 26.6 - 33.0 pg [facility] - 01 MCHC 31.1(L) 31.5 - 35.7 g/dL [facility] - 01 Rdw 15.6(H) 11.6 - 15.4 % [facility] - 01 Platelets 205 150 - 450 x10E3/uL [facility] - 01 Neutrophils pct 77 Not Estab. % [facility] - 01 Lymphs pct 8 Not Estab. % [facility] - 01 Monocytes pct 10 Not Estab. % [facility] - 01 Eosinophils pct 3 Not Estab. % [facility] - 01 Basophil pct 0 Not Estab. % [facility] - 01 Neutrophil abs 3.7 1.4 - 7.0 x10E3/uL [facility] - 01 Lymphs (Absolute) 0.4(L) 0.7 - 3.1 x10E3/uL [facility] - 01 Monocyte abs 0.5 0.1 - 0.9 x10E3/uL [facility] - 01 Eosinophils, abs 0.2 0.0 - 0.4 x10E3/uL [facility] - 01 Basophils, abs 0.0 0.0 - 0.2 x10E3/uL [facility] - 01 Immature Granulocytes 2 Not Estab. % [facility] - 01 Immature Grans (Abs) 0.1 0.0 - 0.1 x10E3/uL [facility] - 01 12/15/2024 11:1 9 AM POWER BRAKE OPERATOR 12/15/2024 Narrative [facility] - 12/16/2024 7:35 AM POWER BRAKE OPERATOR Performed at: [address] [id number] [employer] Supervisor: Preston Valdez PhD, Phone: [phone] us Fanny Hunt MD LAB BLOOD ORDERABLES Final Result [facility] 01 * (ABNORMAL) Comprehensive metabolic panel (12/15/2024 11:19 AM POWER BRAKE OPERATOR) Glucose 208(H) 70 - 99 mg/dL [facility] - 01 BUN 24 8 - 27 mg/dL [facility] - 01 Creatinine, Serum 1.38(H) 0.76 - 1.27 mg/dL [facility] - 01 eGFR 52(L) >59 mL/min/1.7 3 [facility] - 01 BUN/creat ratio 17 10 - 24 [facility] - 01 Sodium 137 134 - 144 mmol/L [facility] - 01 Potassium, sr 4.6 3.5 - 5.2 mmol/L [facility] - 01 Chloride 105 96 - 106 mmol/L [facility] - 01 CO2 20 20 - 29 mmol/L [facility] - 01 Calcium 9.2 8.6 - 10.2 mg/dL [facility] - 01 Protein, sr 6.3 6.0 - 8.5 g/dL [facility] - 01 Albumin 3.1(L) 3.8 - 4.8 g/dL [facility] - 01 Globulin, Total 3.2 1.5 - 4.5 g/dL [facility] - 01 Bilirubin, Total 0.8 0.0 - 1.2 mg/dL [facility] - 01 Alk phos 485(H) 44 - 121 IU/L [facility] - 01 AST 45(H) 0 - 40 IU/L [facility] - 01 ALT 74(H) 0 - 44 IU/L [facility] - 01 12/15/2024 11:1 9 AM POWER BRAKE OPERATOR 12/15/2024 Narrative [facility] - 12/16/2024 9:36 AM POWER BRAKE OPERATOR Performed at: [address] [place] [id number] [employer] Supervisor: Preston Valdez PhD, Phone: [phone] us Fanny Hunt MD LAB BLOOD ORDERABLES Final Result [facility] - 01 * TRANSTHORACIC ECHO (TTE) COMPLETE W DOPPLER/CF WO CONTRAST (11/26/2024 11:45 AM POWER BRAKE OPERATOR) Anatomical Region Laterality Modality Ultrasound 11/26/2024 10:3 9 AM POWER BRAKE OPERATOR Narrative 11/28/2024 4:11 PM POWER BRAKE OPERATOR Adult Echocardiogram + ----- -------+ :Name: ESTUARDO RENO Study Date: 11/26/2024 Status: MHB : : Patient Location: [address]^MHBHeight: 64 in : : Weight: 149 lbBP: 110/60 mmHg: :: 1945 Gender: Male BSA: 1.7 m2 : :Reason For Study: / MR / LBBB / HTN / cirrhosis : :Ordering Physician: : :FANNY HUNT : :Referring Physician: : :FANNY HUNT : :Performed By: Laure : :JENNIFER Meza : + ----- -------+ Procedure A two-dimensional transthoracic echocardiogram with color flow and Doppler was performed. The study was technically difficult due to patient's 'body habitus'. Left Ventricle The left ventricle is normal in size. There is normal left ventricular wall thickness. Left ventricular systolic function is normal. Ejection Fraction = 50-55%. No regional wall motion abnormalities noted. There is no thrombus. Right Ventricle The right ventricle is normal in size and function. There is a pacemaker lead in the right ventricle. There is normal right ventricular wall thickness. The right ventricular systolic function is normal. No regional wall motion abnormalities are noted. Atria The left atrial size is normal. Right atrial size is normal. The interatrial septum is intact with no evidence for an atrial septal defect. Mitral Valve The mitral valve is not well visualized. The mitral valve leaflets appear thickened, but open well. There is no mitral valve stenosis. There is trace to mild mitral regurgitation. Tricuspid Valve The tricuspid valve is not well visualized. There is no tricuspid stenosis. Right ventricular systolic pressure is '24' mm/HG. Right ventricular systolic pressure is normal. There is trace to mild tricuspid regurgitation. Aortic Valve The aortic valve is not well visualized. Aortic valve sclerosis' moderate'. Mild to moderate valvular aortic stenosis. Aortic valve velocity is 242 cm/s. Aortic valve peak gradient is 24 mm/Hg. Aortic valve mean gradient is 13 mm/Hg. Aortic valve area = 1.10 cm2. No aortic regurgitation is present. Pulmonic Valve The pulmonic valve is not well visualized. There is no pulmonic valvular stenosis. Trace to mild pulmonic valvular regurgitation. Great Vessels The aortic root is not well visualized. The pulmonary artery is not well visualized, but is probably normal size. Subcostal views suboptimal. IVC not well seen. Pericardium There is no pericardial effusion. Diastology Grade I diastolic dysfunction, (abnormal relaxation pattern). E/E prime ratio is 8 -15 which is in the indeterminate zone. Interpretation Summary The left ventricle is normal in size. There is normal left ventricular wall thickness. Left ventricular systolic function is normal. Ejection Fraction = 50-55%. There is a pacemaker lead in the right ventricle. Mild to moderate valvular aortic stenosis. Aortic valve mean gradient is 13 mm/Hg. Aortic valve area = 1.10 cm2. Grade I diastolic dysfunction, (abnormal relaxation pattern). Compared to echo 10/17/2022, no significant change. + + :Measurements with Normals : :IVSd: 0.84 cm (0.6-1.2 cm)LVIDd: 4.1 cm(3.5-5.7 cm) : :LVPWd: 0.90 cm(0.6-1.1 cm)LVIDs: 3.1 cm(3.1-4.6 cm) : + + MMode/2D Measurements & Calculations FS: 24.8 % LVOT diam: 2.0 cm EDV(Teich): 75.1 ml LVOT area: 3.1 cm2 ESV(Teich): 37.9 ml Doppler Measurements & Calculations MV E max lefty: MV dec time: Ao V2 max: LV V1 max P.7 cm/sec 0.18 sec 242.0 cm/sec 2.9 mmHg MV A max lefty: Ao max PG: LV V1 mean P.4 cm/sec 23.4 mmHg 2.0 mmHg MV E/A: 0.74 Ao V2 mean: LV V1 max: 166.0 cm/sec 85.4 cm/sec Ao mean PG: LV V1 mean: 13.0 mmHg 57.4 cm/sec Ao V2 VTI: 58.4 cm LV V1 VTI: 20.4 cm GRACE(I,D): 1.1 cm2 GRACE(V,D): 1.1 cm2 SV(LVOT): 64.1 ml PA V2 max: RV V1 max: TR max lefty: 131.0 cm/sec 65.0 cm/sec 268.0 cm/sec PA max PG: TR max P.9 mmHg 28.7 mmHg Electronically signed by: Fanny Hunt MD 11/28/2024 04:11 PM Procedure Note Fanny Hunt MD - 11/28/2024 Adult Echocardiogram + ----- -------+ :Name: ESTUARDO RENO Study Date: 11/26/2024 Status: MHB: : Patient Location: [address]^MHBHeight: 64in : : Weight: 149lbBP: 110/60 mmHg: :: 1945 Gender: Male BSA: 1.7 m2: :Reason For Study: / MR / LBBB / HTN / cirrhosis: :Ordering Physician:: :FANNY HUNT: :Referring Physician:: :FANNY HUNT: :Performed By: Laure: :JENNIFER Meaz: + ----- -------+ Procedure A two-dimensional transthoracic echocardiogram with color flow and Dopplerwas performed. The study was technically difficult due to patient's 'body habitus'. Left Ventricle The left ventricle is normal in size. There is normal left ventricularwall thickness. Left ventricular systolic function is normal. Ejection Fraction= 50-55%. No regional wall motion abnormalities noted. There is nothrombus. Right Ventricle The right ventricle is normal in size and function. There is a pacemakerlead in the right ventricle. There is normal right ventricular wall thickness.The right ventricular systolic function is normal. No regional wall motion abnormalities are noted. Atria The left atrial size is normal. Right atrial size is normal. Theinteratrial septum is intact with no evidence for an atrial septal defect. Mitral Valve The mitral valve is not well visualized. The mitral valve leafletsappear thickened, but open well. There is no mitral valve stenosis. There istrace to mild mitral regurgitation. Tricuspid Valve The tricuspid valve is not well visualized. There is no tricuspidstenosis. Right ventricular systolic pressure is '24' mm/HG. Right ventricularsystolic pressure is normal. There is trace to mild tricuspid regurgitation. Aortic Valve The aortic valve is not well visualized. Aortic valve sclerosis'moderate'. Mild to moderate valvular aortic stenosis. Aortic valve velocity is 242cm/s. Aortic valve peak gradient is 24 mm/Hg. Aortic valve mean gradient is 13 mm/Hg. Aortic valve area = 1.10 cm2. No aortic regurgitation is present. Pulmonic Valve The pulmonic valve is not well visualized. There is no pulmonic valvular stenosis. Trace to mild pulmonic valvular regurgitation. Great Vessels The aortic root is not well visualized. The pulmonary artery is not well visualized, but is probably normal size. Subcostal views suboptimal. IVCnot well seen. Pericardium There is no pericardial effusion. Diastology Grade I diastolic dysfunction, (abnormal relaxation pattern). E/E primeratio is 8 -15 which is in the indeterminate zone. Interpretation Summary The left ventricle is normal in size. There is normal left ventricular wall thickness. Left ventricular systolic function is normal. Ejection Fraction = 50-55%. There is a pacemaker lead in the right ventricle. Mild to moderate valvular aortic stenosis. Aortic valve mean gradient is 13 mm/Hg. Aortic valve area = 1.10 cm2. Grade I diastolic dysfunction, (abnormal relaxation pattern). Compared to echo 10/17/2022, no significant change. + + :Measurements with Normals: :IVSd: 0.84 cm (0.6-1.2 cm)LVIDd: 4.1 cm(3.5-5.7 cm): :LVPWd: 0.90 cm(0.6-1.1 cm)LVIDs: 3.1 cm(3.1-4.6 cm): + + MMode/2D Measurements & Calculations FS: 24.8 % LVOT diam: 2.0 cm EDV(Teich): 75.1 ml LVOT area: 3.1 cm2 ESV(Teich): 37.9 ml Doppler Measurements & Calculations MV E max lefty: MV dec time: Ao V2 max: LV V1 max P.7 cm/sec 0.18 sec 242.0 cm/sec 2.9 mmHg MV A max lefty: Ao max PG: LV V1 mean P.4 cm/sec 23.4 mmHg 2.0 mmHg MV E/A: 0.74 Ao V2 mean: LV V1 max: 166.0 cm/sec 85.4 cm/sec Ao mean PG: LV V1 mean: 13.0 mmHg 57.4 cm/sec Ao V2 VTI: 58.4 cm LV V1 VTI: 20.4cm GRACE(I,D): 1.1 cm2 GRACE(V,D): 1.1 cm2 SV(LVOT): 64.1 ml PA V2 max: RV V1 max: TR max lefty: 131.0 cm/sec 65.0 cm/sec 268.0 cm/sec PA max PG: TR max P.9 mmHg 28.7 mmHg Electronically signed by: Fanny Hunt MD 11/28/2024 04:11 PM us Fanny Hunt MD CV ECHO PROCEDURES Final R esult * DEVICE CHECK - REMOTE (10/06/2024 9:56 AM POWER BRAKE OPERATOR) Anatomical Region Laterality Modality Other Narrative 12/02/2024 10:18 AM POWER BRAKE OPERATOR Table formatting from the original result was not included. Patient ID: Estuardo Reno is a 79 y.o. male This patient has a(n) Pena dual chamber pacemaker. They had a routine remote transmission on 10/03/2024. Device implant indications: SND, PAF Interrogation of the patient's device demonstrates the following: Presenting EGM: AP/VS Mode: DDDR 60/105 bpm Device Settings Right Atrium Right Ventricle Sensitivity Auto 4.0 mV Pacing outputs 2.0 V @ 0.4 ms Auto 3.0 V @ 0.4 ms Testing Measurements Right Atrium RA previous/trend Right Ventricle RV previous/trend Sensitivity 3.0 mV 2.1 mV >12.0 mV >12.0 mV Impedance 360 ohms 360 ohms 440 ohms 460 ohms Pacing threshold 0.625 V @ 0.4 ms 0.75 V @ 0.4 ms 2.75 V @ 0.4 ms 0.75 V @ 0.4 ms Pacing % 41% 76% <1% <1% Battery Status: 7.1 to 8.2 years to [place]. Episodes last 90 days: 10 AT/AF episode(s), longest duration 1 hour AT/AF [place] <1% 18 high ventricular rate episode(s): mix of RV lead noise, NSVT, and brief AT Comments: Programming appropriate for device measurements. Rise in RV threshold since last check 57 RV noise reversion episodes - known. See attached report. Medications: Anticoagulant(s): n/a Antiarrhythmic(s): carvedilol Plan: Remote device checks quarterly, as scheduled. In-office device check scheduled on 07/10/2025. Refer to outside EP re: RV lead noise/rising threshold as appropriate Crystal Andrews RN Addendum: Significant increase in RV pacing threshold, but still able to capture. RV pacing burden remains low. High frequency high-amplitude noise seen on near and far field channels in the RV lead. Episodes of atrial fibrillation with Rapid Ventricular Response are seen by EGM. Longest episode 1 hour. Near and far field noise on the RV lead now with increasing threshold indicates lead failure. Low RV pacing burden indicates nonemergent. However, she would be referred to other EP to discuss lead revision. Next in office appointment to [phone] Mae. Homer Bullock MD Cardiac Electrophysiology us Homer Bullock MD CV C[facility]AC [facility] Final Result * Lipid panel (05/26/2024) SCRIBED Cholesterol, Total 119 l - h [facility] SCRIBED HDL 49 l - h [facility] SCRIBED LDL 53 l - h [facility] SCRIBED Triglycerides 88 l - h [facility] Blood 05/26/2024 Claribel Lindsey [facility] LAB BLOOD ORDERABLES Final Result [facility] * (ABNORMAL) Hemoglobin A1c (12/11/2021 12:52 AM POWER BRAKE OPERATOR) Hgb A1C 6.3(H) 4.0 - 5.6 % JHONATHAN MEMBRENO Estimated Average Glucose 134 mg/dL JHONATHAN MEMBRENO Comment: The ADA recommends reporting an estimated Average Glucose (eAG) with all Hemoglobin A1c results using the equation derived from a study of 507 normal and diabetic adults. Minority populations were underrepresented and children were not included. (Diabetes Care 31:0706-7825, 2008). The eAG is not equivalent to a fasting glucose. Blood 12/11/2021 12:5 2 AM POWER BRAKE OPERATOR 12/11/2021 12:53 AM POWER BRAKE OPERATOR Rosmery Nelson [facility] LAB BLOOD ORDERABLES Final Result Performing Organization Address City/[facility]/ZIP Co de Phone Number [facility] [address] [facility] Department [place] [address] from Last 3 Months or Most Recently Relevant to Health Maintenance Insurance [facility] Advance Directives For more information, please contact: [phone] * Full Code (Latest Code Status on File) Date Activated Date Inactivated Comments 09/25/2023 12:12 PM 09/28/2023 8:32 PM * Full Code Date Activated Date Inactivated Comments 12/14/2021 10:19 AM 12/15/2021 8:20 PM * Full Code Date Activated Date Inactivated Comments 12/10/2021 9:58 PM 12/14/2021 10:19 AM * Full Code Date Activated Date Inactivated Comments 05/15/2021 12:37 AM 05/16/2021 8:55 PM Care Teams Rope Rider Relationship Specialty Start Date End Date Moses Conn MD [address] [place] [address] PCP - General 10/08/20 Anjelica Fish MD [address] [facility] [address] [address] Care Management Associate Cardiovascular Disease 05/16/21
--- OUTSIDE RECORDS SUMMARY | 2024-12-22 14:36 | XMS_ITS | Clinical Summary ---
Author Organization [facility] Office Center Address [address] [place] [address] Care Team Providers Care Information Technology Analyst Name Role Phone Moses Conn MD Primary Care Provider [phone] Anjelica Fish MD Unavailable [phone] Allergies Active Allergy Reactions Criticality Noted Date [...] day with meals 180 tablet 3 07/04/20 Active Active Problems Problem Noted Date Diagnosed [...] 01/08/2024 SBO (small bowel obstruction) (CMS/HCC) 09/25/20 Chemotherapy-induced neutropenia 09/25/2023 Hyponatremia 09/25/2023 Tachy-fela syndrome [...] plan to continue same Paroxysmal atrial fibrillation ([facility]) 021 Overview (12/18/2024): Last Assessment & Plan: [...] monitoring Diabetes mellitus type 2 in nonobese ([facility]) 0 05/15/2021 Essential hypertension 05/15/2021 Bradycardia 05/15/2021 [...] Diagnosed Date Resolved Date Bradycardia 05/15/2021 08/10/2023 Encounters Date Type Department Care Team Description 12/19/2024 11:30 AM INVENTORY MANAGEMENT SPECIALIST Office Visit [facility] [address] [place] [phone] Fanny Lima MD Nonrheumatic aortic valve stenosis (Primary Dx); Tachy-fela syndrome (CMS/HCC) (HCC); Paroxysmal A-fib (CMS/HCC) (HCC); Benign essential hypertension; Mixed hyperlipidemia 12/16/2024 Telephone [facility] [address] [place] [phone] Fanny Lima MD blood test results 12/15/2024 Orders Only [facility] [address] [place] [phone] Fanny Lima MD 12/15/2024 Orders Only [facility] [address] [place] [phone] Fanny Lima MD 12/03/2024 Telephone [facility] [address] [place] [phone] Fanny Lima MD 11/26/2024 10:15 AM INVENTORY MANAGEMENT SPECIALIST - 11/26/2024 11:59 PM INVENTORY MANAGEMENT SPECIALIST Hospital Encounter [facility] OP Cardiac Testing [address] [place] [phone] Other form of dyspnea; LBBB (left bundle branch block); Nonrheumatic mitral valve regurgitation; Essential hypertension; Mixed hyperlipidemia; Abdominal aortic atherosclerosis (HCC); Aortic valve stenosis, moderate; Nonrheumatic aortic valve stenosis; Paroxysmal A-fib (CMS/HCC) (HCC); Pacemaker Discharge Disposition: Discharge to home or self care 10/03/2024 8:45 AM INVENTORY MANAGEMENT SPECIALIST Ancillary Procedure [facility] [address] [facility] [address] [place] [address] Tachy-fela syndrome (CMS/HCC) (HCC); Pacemaker from Last 3 Months Surgical History Surgery Date Site/Laterality Comments EYE SURGERY COLONOSCOPY NECK SURGERY 1999 GUIDED THORACENTESIS 08/15/2024 N/A Medical History Medical History Date Comments Diabetes mellitus (HCC) Hypertension Diabetes mellitus type 2 in nonobese (CMS/HCC) ( HCC) 05/15/2021 Mitral valve regurgitation 05/15/2021 Essential hypertension 05/15/2021 Anemia Diarrhea Hyperlipidemia Cataract Sinus drainage Non Hodgkin's lymphoma (HCC) Atrial fibrillation (CMS/HCC) ([facility]) Family History Medical History Relation Name Comments Diabetes Father Heart disease Father Hyperlipidemia Father Hypertension Father Diabetes Mother Heart disease Mother Hyperlipidemia Mother Hypertension Mother Relation Name Status Comments Father (Age 88) Mother (Age 67) Other Other Diabetes mellit type 2 in most siblings Social History Tobacco Use Types Packs/Day Years Used Date Smoking Tobacco: Former Cigarettes 2 25 1 976 - 2000 Cigars Smokeless Tobacco: Never Tobacco Cessation:Counseling Given: Not Answered Alcohol Use Standard Drinks/Week Comments Not Currently 0 (1 standard drink = 0.6 oz pur e alcohol) occasionally [employer] Answer Date Recorded In the past 12 months has [employer], [employer], or water [employer] threatened to shut off services in your [...] week 09/25/2023 How often do you attend [facility] or adventist services? Never 09/25/2023 Do you belong to any clubs o r organizations such as protestant groups, unions, fraternal or athletic groups, or [...] place to sleep or slept in a snf (including now)? No 09/25/2023 Personal Safety Answer Date Recorded Have you ever been in or are you currently in a harmful physical or emotional relationship or is someone making you feel afraid or unsafe? Denies 09/25/2023 Sex and Gender Information Value Date Recorded Sex Assigned at Not on file Legal Sex Male 7:49 PM INVENTORY MANAGEMENT SPECIALIST Gender Identity Not on file Sexual Orientation Not on file Occupation Industry Job Start Date Job End Date Retired Not on file Not on file Not on file Obstetrics History Last Filed Vital Signs Vital Sign Reading Time Taken Comments Blood Pressure 134/60 12/19/2024 12:35 PM INVENTORY MANAGEMENT SPECIALIST Pulse 63 12/19/2024 12:35 PM INVENTORY MANAGEMENT SPECIALIST Temperature 36.6 C (97.9 F) 09/28/2023 1:07 PM INVENTORY MANAGEMENT SPECIALIST Respiratory Rate 16 12/19/2024 12:35 PM INVENTORY MANAGEMENT SPECIALIST Oxygen Saturation 99% 12/19/2024 12:35 PM INVENTORY MANAGEMENT SPECIALIST Inhaled Oxygen Concentration - - Weight 57.7 kg (127 lb 1.6 oz) 12/19/2024 12:35 PM INVENTORY MANAGEMENT SPECIALIST Height 162.6 cm (5' 4 ) 12/19/2024 12:35 PM INVENTORY MANAGEMENT SPECIALIST Body Mass Index 21.82 12/19/2024 12:35 PM INVENTORY MANAGEMENT SPECIALIST Plan of Treatment Health Maintenance Due Date Last Done Comments Albumin Creatinine Ratio, Urine 1945 Depression Screening 1945 Hepatitis C Screening 1945 Dilated Eye Exam 1945 Foot Exam 1945 DTaP/Tdap/Td Vaccine (1 - Tdap) 1956 Hepatitis B Screening 1963 Well Visit 65+ 2010 Hemoglobin A1C 06/10/2022 12/11/2021, 05/15/2021 Covid-19 Vaccine (4 - 2023-2 5 season) 2024 09/08/2021, 01/06/2021, 12/10/2020 Fall Risk Assessment 09/28/2024 09/28/2023 Lipid Panel 08/06/2025 08/06/2024, 05/06, 01/01/2024, Additional history exists eGFR 12/15/2025 12/15/2024, 1212/2022, 09/26/2023, Additional history exists Zoster Vaccine Completed 06/13/2018, 02/21/2018 Pneumococcal vaccine 65+ Completed 019, 07/22/2018, 08/08/2016 Influenza Vaccine Completed 09/11/2024, , 08/03/2020, Additional history exists Medical Devices Implanted Type Area Medical Receptionist Medical Assistant Device Identifier Shelf Expiration Date Model / Serial / Lot [employer] [id number]/ Tendril Sts 6fr 46cm Is-1 Connector Bipolar Active Fixation - [id number] Implanted:Qty: 1 on 12/14/2021 by Daily, Harley Mg MD at [facility] Lead [employer] [id number]/ / / [employer] [id number] Assurity Mri [id number] 2 Chamber Is-1 Connector Thk6mm Pacemaker - [id number] - [id number] Implanted:Qty: 1 on 12/14/2021 by Daily, Harley Mg MD at [facility] Pacemaker [employer] [id number] 04/04/2023 [id number] / [id number] / [employer] [id number] Assurity Mri [id number] 2 Chamber Is-1 Connector Thk6mm Pacemaker - [id number] - [id number] Implanted:Qty: 1 on 12/14/2021 by Daily, Harley Mg MD at [facility] Pacemaker [employer] [id number] 04/04/2023 [id number] / [id number] / Procedures Procedure Name Priority Date/Time Associated Diagnosis Comments SPECIMEN STATUS REPORT Routine 12/15/2024 11:19 AM INVENTORY MANAGEMENT SPECIALIST CBC/DIFF AMBIGUOUS DEFAULT Routine 12/15/2024 11:19 AM INVENTORY MANAGEMENT SPECIALIST THYROID FUNCTION CASCADE Routine 12/15/2024 11:19 AM INVENTORY MANAGEMENT SPECIALIST COMPREHENSIVE METABOLIC PANEL Routine 12/15/2024 11:19 AM INVENTORY MANAGEMENT SPECIALIST CBC WITH AUTO DIFFERENTIAL Routine 12/15/2024 11:19 AM INVENTORY MANAGEMENT SPECIALIST TRANSTHORACIC ECHO (TTE) COMPLETE W DOPPLER/CF WO CONTRAST Routine 11/26/2024 11:45 AM INVENTORY MANAGEMENT SPECIALIST Other form of dyspnea LBBB (left bundle branch block) Nonrheumatic mitral valve regurgitation Essential hypertension Mixed hyperlipidemia Abdominal aortic atherosclerosis (HCC) Aortic valve stenosis, moderate Nonrheumatic aortic valve stenosis Paroxysmal A-fib (CMS/HCC) (HCC) Pacemaker DEVICE CHECK - REMOTE Routine 10/06/2024 9:56 AM INVENTORY MANAGEMENT SPECIALIST Tachy-fela syndrome (CMS/HCC) (HCC) Pacemaker LIPID PANEL Routine 05/26/2024 Mixed hyperlipidemia HEMOGLOBIN A1C Routine 12/11/2021 12:52 AM INVENTORY MANAGEMENT SPECIALIST from Last 3 Months or Most Recently Relevant to Health Maintenance Results * Specimen Status Report (12/15/2024 11:19 AM INVENTORY MANAGEMENT SPECIALIST) Specimen Status Report Comment [facility] - 01 Comment: Jacinta Guzmán CMP14 Default Jacinta Guzmán CMP14 Default A hand-written panel/profile was received from your office. In accordance with the [facility] Ambiguous Test Code Policy dated May 2003, we have completed your order by using the closest currently or formerly recognized AMA panel. We have assigned Comprehensive Metabolic Panel (14), Test Code #081790 to this request. If this is not the testing you wished to receive on this specimen, please contact the [facility] Client Inquiry/Technical Services Department to clarify the test order. We appreciate your business. 12/15/2024 11:1 9 AM INVENTORY MANAGEMENT SPECIALIST 12/15/2024 Narrative [facility] - 12/16/2024 7:35 AM INVENTORY MANAGEMENT SPECIALIST Performed at: 01 - [address] [id number] Adzing And Boring Machine Operator: Preston Valdez PhD, Phone: [phone] us Fanny Lima MD LAB BLOOD ORDERABLES Final Result Performing Organization Address City/[facility]/ZIP Co de Phone Number [facility] - 01 * CBC/Diff Ambiguous Default (12/15/2024 11:19 AM INVENTORY MANAGEMENT SPECIALIST) 12/15/2024 11:1 9 AM INVENTORY MANAGEMENT SPECIALIST us Fanny Lima MD LAB BLOOD ORDERABLES Final Result [facility] * Thyroid Function [place] (12/15/2024 11:19 AM INVENTORY MANAGEMENT SPECIALIST) Pathologist [facility] TSH 0.861 0.450 - 4.500 uIU/mL [facility] - 01 Comment: No apparent thyroid disorder. Additional testing not indicated. In rare instances, Secondary Hypothyroidism as well as Subclinical Hypothyroidism have been reported in some patients with normal TSH values. 12/15/2024 11:1 9 AM INVENTORY MANAGEMENT SPECIALIST 12/15/2024 Narrative [facility] - 12/16/2024 4:09 PM INVENTORY MANAGEMENT SPECIALIST Performed at: [address] [id number] Adzing And Boring Machine Operator: Preston Valdez PhD, Phone: [phone] us Fanny Lima MD LAB BLOOD ORDERABLES Final Result [facility] - 01 * (ABNORMAL) CBC with auto differential (12/15/2024 11:19 AM INVENTORY MANAGEMENT SPECIALIST) Pathologist [facility] WBC 4.8 3.4 - 10.8 x10E3/uL [facility] [...] [facility] - 01 12/15/2024 11:1 9 AM INVENTORY MANAGEMENT SPECIALIST 12/15/2024 Narrative [facility] - 12/16/2024 7:35 AM INVENTORY MANAGEMENT SPECIALIST Performed at: [address] [place] [id number] Adzing And Boring Machine Operator: Preston Valdez PhD, Phone: [phone] Fanny Lima MD LAB BLOOD ORDERABLES Final Result [facility] 01 * (ABNORMAL) Comprehensive metabolic panel (12/15/2024 11:19 AM INVENTORY MANAGEMENT SPECIALIST) Glucose 208(H) 70 - 99 mg/dL [facility] [...] [facility] - 01 12/15/2024 11:1 9 AM INVENTORY MANAGEMENT SPECIALIST 12/15/2024 Narrative [facility] - 12/16/2024 9:36 AM INVENTORY MANAGEMENT SPECIALIST Performed at: - [facility] [id number] Adzing And Boring Machine Operator: Preston Valdez PhD, Phone: [phone] us Fanny Lima MD LAB BLOOD ORDERABLES Final Result [facility] - * TRANSTHORACIC ECHO (TTE) COMPLETE W DOPPLER/CF WO CONTRAST (11/26/2024 11:45 AM INVENTORY MANAGEMENT SPECIALIST) Anatomical Region Laterality Modality Ultrasound 11/26/2024 10:3 9 AM INVENTORY MANAGEMENT SPECIALIST Narrative 11/28/2024 4:11 PM INVENTORY MANAGEMENT SPECIALIST Adult Echocardiogram + ----- -------+ :Name: ESTUARDO RENAE Study Date: 11/26/2024 Status: MHB : : Patient Location: [address]^BHeight: 64 in : : Weight: 149 lbBP: 110/60 mmHg: :: 1945 Gender: Male BSA: 1.7 m2 : :Reason For Study: / MR / LBBB / HTN / cirrhosis : :Ordering Physician: : :FANNY LIMA : :Referring Physician: : :FANNY LIMA : :Performed By: Laure : :JENNIFER Meza [...] mmHg 28.7 mmHg Electronically signed by: Fanny Lima MD 11/28/2024 04:11 PM Procedure Note Fanny Lima MD - 11/28/2024 Adult Echocardiogram + ----- -------+ :Name: ESTUARDO RENAE Study Date: 11/26/2024 Status: MHB: : Patient Location: [address]^MHBHeight: 64in : : Weight: 149lbBP: 110/60 mmHg: :: 1945 Gender: Male BSA: 1.7 m2: :Reason For Study: / MR / LBBB / HTN / cirrhosis: :Ordering Physician:: :FANNY LIMA: :Referring Physician:: :FANNY LIMA: :Performed By: Laure: :JENNIFER Meza: + ----- -------+ Procedure A two-dimensional transthoracic [...] mmHg 28.7 mmHg Electronically signed by: Fanny Lima MD 11/28/2024 04:11 PM us Fanny Lima MD CV ECHO PROCEDURES Final R esult * DEVICE CHECK - REMOTE (10/06/2024 9:56 AM INVENTORY MANAGEMENT SPECIALIST) Anatomical Region Laterality Modality Other Narrative 12/02/2024 10:18 AM INVENTORY MANAGEMENT SPECIALIST Table formatting from the original result was not included. Patient ID: Estuardo Renae is a 79 y.o. male This patient [...] AT/AF episode(s), longest duration 1 hour AT/AF [place] <1% 18 high ventricular rate episode(s): mix [...] us Homer Bullock MD [facility] Final Result * Lipid panel (05/26/2024) SCRIBED Cholesterol, Total 119 l - h [facility] SCRIBED HDL 49 l - h [facility] SCRIBED LDL 53 l - h [facility] SCRIBED Triglycerides 88 l - h [facility] Blood 05/26/2024 Claribel Lindsey ALLEY WORKER LAB BLOOD ORDERABLES Final Result [facility] * (ABNORMAL) Hemoglobin A1c (12/11/2021 12:52 AM INVENTORY MANAGEMENT SPECIALIST) Hgb A1C 6.3(H) 4.0 - 5.6 % JHONATHAN Estimated Average Glucose 134 mg/dL JHONATHAN Comment: The ADA recommends reporting an estimated Average Glucose (eAG) with all Hemoglobin A1c results using the equation derived from a study of 507 normal and diabetic adults. Minority populations were underrepresented and children were not included. (Diabetes Care 31:8046-7288, 2008). The eAG is not equivalent to a fasting glucose. Blood 12/11/2021 12:5 2 AM INVENTORY MANAGEMENT SPECIALIST 12/11/2021 12:53 AM INVENTORY MANAGEMENT SPECIALIST Rosmery Nelson NP LAB BLOOD ORDERABLES Final Result [facility] [address] [facility] Department [place] [address] from Last 3 Months or Most Recently Relevant to Health Maintenance Insurance [facility] Member Subscriber Plan / Payer (Ef fective 2015-Present) Name:Estuardo Renae Relation to Subscriber:Self Name:Estuardo Renae Payer ID:[id number] (NAIC) Type:MEDICARE RISK OTHER Address: [place] [id number] [facility] Advance Directives For more information, please contact: [phone] * Full Code (Latest Code Status on File) Date Activated Date Inactivated Comments 09/25/2023 12:12 PM 09/28/2023 8:32 PM * Full Code Date Activated Date Inactivated Comments 12/14/2021 10:19 AM 12/15/2021 8:20 PM * Full Code Date Activated Date Inactivated Comments 12/10/2021 9:58 PM 12/14/2021 10:19 AM * Full Code Date Activated Date Inactivated Comments 05/15/2021 12:37 AM 05/16/2021 8:55 PM Care Teams Information Technology Analyst Relationship Specialty Start Date End Date Moses Conn MD [address] [place] [address] PCP - General 10/08/20 Anjelica Fish MD [address] [place] [address] Comparator Operator Cardiovascular Disease 05/16/21
--- OUTSIDE RECORDS SUMMARY | 2024-12-22 14:36 | XMS_ITS | Clinical Summary ---
Author Organization [facility] Address [address] [place] [address] Care Team Providers Care Strap Setter Name Role Phone Moses Conn MD Primary Care Provider [phone] Source Comments [facility],non-owned Affiliates and Associated Physician Practices is amultiple site organization consisting of ambulatory clinics and hospital sitesin [place], [place], [place] and [place]. This disclosure is being madepursuant to the Care Everywhere program and may not contain all information available regarding this patient. Last updated 18.[facility] Allergies Active Allergy Reactions Criticality Noted Date Comments Cefditoren Rash Medium 05/27/2012 Tetracycline Rash Medium 05/27/2012 Medications * Be aware that medications may not be up to date on this document. Alwaysverify current medications with the patient. Medication Sig Dispensed Refills Start Date End Date Status omeprazole (PriLOSEC) 40 MG capsule Take 1 (one) capsule by mouth two times daily at 4am and 4pm 05/09/2024 Active acyclovir (Zovirax) 400 MG tablet Take 1 (one) tablet by mouth 2 times daily Active sucralfate (Carafate) 1 GM tablet Take 1 (one) tablet by mouth 4 times daily Active Jardiance 25 MG tablet Take 1 (one) tablet by mouth once daily Active Other [facility] dietary supplement Active vitamin D3 (Cholecalciferol ) 25 MCG (1000 UNITS) tablet Take 1 (one) tablet by mouth once daily Active fluticasone propionate (Flonase) 50 MCG/ACT nasal spray [place] 1 (one) spray into the nose once daily Active cyanocobalamin (Vitamin B-12) 1000 MCG tablet Take 1 (one) tablet by mouth once daily Active ferrous sulfate 325 (65 FE) MG tablet Take 1 (one) tablet by mouth once daily Active simvastatin (Zocor) 20 MG tablet Take 1 (one) tablet by mouth once daily Active Nutritional Supplement LIQD Take 1 container by mouth 3 times daily High Calorie High Protein Supplement Examples: Ensure Enlive/Ensure Plus High Protein/Boost Plus/Equate Plus 08/16/2024 Active carvedilol (Coreg) 6.25 MG tablet Take 1 (one) tablet by mouth 2 times daily with morning and evening meal Active Nutritional Supplement LIQD Take 1 container by mouth 3 times daily High Calorie High Protein Supplement Examples: Ensure Enlive/Ensure Plus High Protein/Boost Plus/Equate Plus 09/02/2024 Active zinc gluconate 50 MG tablet Take 1 (one) tablet by mouth 2 times daily for 90 days 60 tablet 2 09/02/2024 Active lactulose (Chronulac) 10 GM/15ML solution Take 30 mL by mouth 3 times daily 946 mL 1 10/28/2024 Active rifAXIMin (Xifaxan) 550 MG tabletIndication s:Hepatic Encephalopathy,b ronze discharge Take 1 (one) tablet by mouth 2 times daily Reasons: 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, bronze discharge 180 tablet 2 11/13/2024 08/10/2025 Active ciprofloxacin (Cipro) 500 MG tablet Take 1 (one) tablet by mouth once daily 60 tablet 3 11/16/2024 Active spironolactone (Aldactone) 100 MG tablet Take 1 (one) tablet by mouth once daily 90 tablet 2 11/14/2024 Active metFORMIN (Glucophage) 1000 MG tablet Take 1 (one) tablet by mouth 2 times daily 12/08/2024 Discontinue d(Clinical Decision) SITagliptin (Januvia) 50 MG tablet Take 2 (two) tablets by mouth once daily 05/21/2023 12/08/2024 Discontinue d(Clinical Decision) acetaminophen (Tylenol) 500 MG tabletIndication s:not to exceed 2g per day Take 1 (one) tablet by mouth every 6 hours as needed Reasons: not to exceed 2g per day 12/08/2024 Discontinue d(List Clean-Up) furosemide (Lasix) 40 MG tablet Take 1 (one) tablet by mouth once daily 30 tablet 1 09/30/2024 12/08/2024 Discontinue d(Clinical Decision) Active Problems Problem Noted Date Diagnosed Date Hypoglycemia associated with diabetes 12/06/2024 Hepatic cirrhosis, unspecifi ed hepatic cirrhosis type, unspecified whether ascites present 12/03/2024 ARAVIND (acute kidney injury) 12/03/2024 Encephalopathy, unspecified type 11/06/2024 Decompensated cirrhosis 11/06/2024 Hepatorenal syndrome 10/23/2024 Altered mental status, unspe cified altered mental status type 10/23/2024 Fall, initial encounter 10/23/2024 Other dysphagia 09/30/2024 Acute encephalopathy 09/30/2024 Vitamin B12 deficiency 09/30/2024 Transient alteration of awareness 09/28/2024 Metabolic dysfunction-associ ated steatotic liver disease (MASLD) 09/02/2024 Allergic rhinitis 08/15/2024 Aortic valve stenosis 08/15/2024 Hepatic encephalopathy 08/13/2024 Chronic obstructive pulmonary disease 07/15/2024 Erosive gastritis 07/15/2024 Esophageal varices 07/15/2024 Generalized edema 07/15/2024 Fecal occult blood test positive 07/15/2024 Myalgia 07/15/2024 Non-Hodgkin's lymphoma 07/15/2024 Other ascites 01/08/2024 Other cirrhosis of liver 01/08/2024 Chemotherapy-induced neutropenia 09/25/2023 Hyponatremia 09/25/2023 SBO (small bowel obstruction) 09/25/2023 Pacemaker 07/18/2023 Overview (08/15/2024): Last Assessment & Plan: Patient has sick sinus syndrome with tachy bradyarrhythmia atrial fibrillation and bradycardia requiring permanent pacemaker which is functioning is being monitored Last Assessment & Plan: Patient has sick sinus syndrome with tachy bradyarrhythmia atrial fibrillation and bradycardia requiring permanent pacemaker which is functioning is being monitored Last Assessment & Plan: Patient has sick sinus syndrome with tachy bradyarrhythmia atrial fibrillation and bradycardia requiring permanent pacemaker which is functioning is being monitored 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 Abdominal aortic atherosclerosis 01/15/2023 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 Iron deficiency 01/15/2023 Combined forms of age-related cataract of both e yes 08/18/2022 Other dietary vitamin B12 deficiency anemia 07/11/2021 Mesenteric lymphadenopathy 05/03/2022 Chronic anemia 04/12/2022 Status post biventricular cardiac pacemaker inse rtion 12/26/2021 Paroxysmal atrial fibrillation 06/01/2021 Overview (08/15/2024): Last Assessment & Plan: History of atrial [...] no side effects plan to continue same Bradycardia 05/15/2021 LBBB (left bundle branch block) 05/15/2021 ALEMAN (dyspnea on exertion) 05/14/2021 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 02/18/2021 Mitral valve regurgitation 11/04/2020 Overview (08/15/2024): Last Assessment & Plan: Patient has mitral regurgitation which is minimal patient is ejection fraction left ventricular size normal patient not having any symptoms of shortness of breath or any other signs of for congestive heart failure plan to continue monitoring Last Assessment & Plan: Patient has mitral regurgitation which is minimal patient is ejection fraction left ventricular size normal patient not having any symptoms of shortness of breath or any other signs of for congestive heart failure plan to continue monitoring Last Assessment & Plan: Patient has mitral regurgitation which is minimal patient is ejection fraction left ventricular size normal patient not having any symptoms of shortness of breath or any other signs of for congestive heart failure plan to continue monitoring Gastroesophageal reflux disease without esophagi tis 08/26/2020 Actinic keratoses 09/09/2018 Vitamin D deficiency 05/28/2012 Benign essential hypertension 05/27/2012 Diabetes mellitus type 2 in nonobese 05/27/2012 Hyperlipidemia 05/27/2012 Encounters Date Type Department Care Team Description 12/09/2024 Transitional Care [facility] CARE [facility]ORDINATION [address] [place] [phone] Lesly Acosta, OLAF Transitions Of Care 12/03/2024 1:55 PM JIGGER ARTISAN - 12/08/2024 2:44 PM JIGGER ARTISAN Hospital Encounter [facility] [address] ACUTE [address] [place] [phone] Julio Torres MD Demars, MD Tai Carroll Alex S, MD Shmais, Manar A, MD Qureshi, Kamran, MD Emergency Medicine Discharge Disposition: Home Health Care [facility] 12/03/2024 Travel 12/02/2024 Telephone [facility] [place] [address] [place] [phone] Luana Alejo, OLAF Cirrhosis (decompensated) 11/14/2024 Transitional Care [facility]ORD[facility] [address] [place] [phone] Lesly Acosta, OLAF Transitions Of Care 11/06/2024 2:03 PM JIGGER ARTISAN - 11/13/2024 4:50 PM JIGGER ARTISAN Hospital Encounter [facility] [address] [address] [place] [phone] Homer Hallman MD Befeler, Alex S, MD Elbeshbeshy, Sly Morrissey MD Gastroenterology Discharge Disposition: Home or Self Care 11/06/2024 10:00 AM JIGGER ARTISAN Office Visit [facility] [address] [place] [phone] Rigoberto Mcclain MD Decompensated hepatic cirrhosis (HCC) (Primary Dx); Portal hypertension (HCC); Other ascites; Hepatic encephalopathy (HCC) 11/06/2024 Travel 10/31/2024 9:30 AM JIGGER ARTISAN - 10/31/2024 11:00 AM JIGGER ARTISAN Surgery [facility] ENDOSCOPY [address] [place] [phone] Procedure, Nursing G_I GASTRIC MOTILITY STUDY 10/31/2024 9:23 AM JIGGER ARTISAN - 10/31/2024 10:20 AM JIGGER ARTISAN Hospital Encounter [facility] OP [address] [place] [phone] Didier Lei MD Surgery General Discharge Disposition: Home or Self Care 10/31/2024 Travel 10/23/2024 2:22 PM JIGGER ARTISAN - 10/28/2024 3:15 PM JIGGER ARTISAN Hospital Encounter [facility] 7N ACUTE [address] [place] [phone] Muna Waller MD Agbim, Uchenna A, MD Qureshi, Kamran, MD Gastroenterology Discharge Disposition: Home or Self Care 10/23/2024 Travel 10/23/2024 Telephone [facility] - Nephrology [address] [place] [phone] Rigoberto Mcclain MD Follow-up; Med Question 09/28/2024 11:35 AM JIGGER ARTISAN - 09/30/2024 12:45 PM JIGGER ARTISAN Hospital Encounter [facility] 7S ACUTE [address] [place] [phone] Carlos Mcclain DO Farmer, Adam D, MD SynFrancy MD Gastroenterology Discharge Disposition: Home or Self Care 09/28/2024 Travel 09/24/2024 Transitional Care [facility] CARE [facility]ORD[facility]ATION [address] [place] [phone] Lesly Acosta RN Transitions Of Care from Last 3 Months Family History Medical History Relation Name Comments Diabetes; unknown type Father Diabetes; unknown type Mother Diabetes; unknown type Sister Other - Hepatic/Liver Neg Hx Relation Name Status Comments Father Mother Sister Social History Tobacco Use Types Packs/Day Years Used Date Smoking Tobacco: Former Cigarettes 2 10 Smokeless Tobacco: Never Tobacco Cessation:Counseling Given: Not Answered Alcohol Use Standard Drinks/Week Comments Not Currently 0 (1 standard drink = 0.6 oz pur e alcohol) AUDIT-C Answer Date Recorded Q1: How often do you have a drink containing alcohol? Never 12/05/2024 Q2: How many drinks containi ng alcohol do you have on a typical day when you are drinking? Patient does not drink Q3: How often do you have si x or more drinks on one occasion? Never 12/05/2024 Overall Financial Resource Strain (CARDIA) Answe r Date Recorded How hard is it for you to pa y for the very basics like food, housing, medical care, and heating? Not hard at all 11/08/2024 [facility] - Occupational Stress Questionnaire Answer Date Recorded Do you feel stress - tense, restless, nervous, or anxious, or unable to sleep at night because your mind is troubled all the time - these days? Not at all 11/08/2024 Hunger Vital Sign Answer Date Recorded Within the past 12 months, y ou worried that your food would run out before you got the money to buy more. Never true 11/08/19 25 Within the past 12 months, t he food you bought just didn't last and you didn't have money to get more. Never true 11/08/2024 PRAPARE - Transportation Answer Date Re corded In the past 12 months, has l ack of transportation kept you from medical appointments or from getting medications? No 02/2025 In the past 12 months, has l ack of transportation kept you from meetings, work, or from getting things needed for daily living? No 11/08/2024 Housing Stability Vital Sign Answer Jose e Recorded In the last 12 months, was t here a time when you were not able to pay the mortgage or rent on time? No 11/08/2024 In the past 12 months, how m any times have you moved where you were living? 0 11/08/2024 At any time in the past 12 m [facility], were you homeless or living in a chcf (including now)? No 11/08/2024 Sex and Gender Information Value Date Recorded Sex Assigned at Not on file Gender Identity Not on file Sexual Orientation Not on file Last Filed Vital Signs Vital Sign Reading Time Taken Comments Blood Pressure 135/61 12/08/2024 12:00 PM JIGGER ARTISAN Pulse 75 12/08/2024 12:00 PM JIGGER ARTISAN Temperature 36.5 C (97.7 F) 12/08/2024 12:00 PM JIGGER ARTISAN Respiratory Rate 17 12/08/2024 12:00 PM JIGGER ARTISAN Oxygen Saturation 98% 12/08/2024 12:00 PM JIGGER ARTISAN Inhaled Oxygen Concentration - - Weight 48 kg (105 lb 12.8 oz) 12/05/2024 6:16 PM JIGGER ARTISAN Height 163 cm (5' 4.17 ) 12/04/2024 8:31 PM JIGGER ARTISAN Body Mass Index 18.06 12/04/2024 8:31 PM JIGGER ARTISAN Plan of Treatment Upcoming Encounters Date Type Department Care Team (Late st Contact Info) Description 01/27/2025 2:00 PM CDT Office Visit [facility] [place] [address] [facility] [place] [phone] Rigoberto Mcclain MD [address] [place] [phone] Health Maintenance Due Date Last Done Comments DTAP/TDAP/TD VACCINES (1 - Tdap) 1964 PNEUMOCOCCAL VACCINE 50+ (1 of 2 - PCV) 1964 ZOSTER VACCINE (1 of 2) 1964 HEPATITIS B VACCINE (1 of 3 - Risk 3-dose series) 2005 Respiratory Syncytial Virus (RSV) Vaccine Pt: or over 60 yrs (1 - 1-dose 75+ series) 2020 COVID-19 VACCINE ( season) 2024 09/08/2021, 01/06/2021, 12/10/2020 DIABETES RETINOPATHY SCREENING 08/15/2024 DIABETES-FOOT EXAM WITH MONOFILAMENT 08/15/2024 DEPRESSION SCREENING 11/05/2024 DIABETES - URINE PROTEIN SCREENING 11/05/2024 01/01/2024 MEDICARE AWV CALENDAR YEAR 2024 DIABETES-HGB A1C 04/24/2025 10/24/2024, 10/2024, 08/14/2024, Additional history exists DIABETES-SERUM CREATININE 12/08/20252024, 12/07/2024, 12/06/2024, Additional history exists INFLUENZA VACCINE Completed 09/11/2024, , 08/17/2021, Additional history exists HIB VACCINE Aged Out No longer eligi ble based on patient's age to complete this topic HPV VACCINE Aged Out No longer eligi ble based on patient's age to complete this topic MENINGOCOCCAL (Group B) VACCINE Aged Out No longer eligible based on patient's age to complete this topic MENINGOCOCCAL VACCINE Aged Out No constantino benito eligible based on patient's age to complete this topic Goals Goal Patient Goal Type Associated Problems Recent Progress Patient-Stated? Author Medication Management General On track( 025 10:45 AM JIGGER ARTISAN) Kandis Dejesus, RN Note: Expected end date: ongoing Interventions: Take all medications as prescribed Let your doctor know right away about any changes in your medications Make sure to request a refill of your medication at least one week prior to your last dose Procedures Procedure Name Priority Date/Time Associated Diagnosis Comments GLUCOSE - POINT OF CARE Routine 12/08/2024 12:03 PM JIGGER ART[facility]AN GLUCOSE - POINT OF CARE Routine 12/08/2024 7:56 AM JIGGER ARTISAN PHOSPHORUS BLOOD Routine 12/08/2024 5:06 AM JIGGER ARTISAN MAGNESIUM BLOOD Routine 12/08/2024 5:06 AM JIGGER ARTISAN COMPREHENSIVE METABOLIC PANEL AM Draw 12/08/2024 5:06 AM JIGGER ARTISAN CBC W AUTO DIFFERENTIAL AM Draw 12/08/2024 5:06 AM JIGGER ARTISAN GLUCOSE - POINT OF CARE Routine 12/08/2024 4:51 AM JIGGER ARTISAN GLUCOSE - POINT OF CARE Routine 12/07/2024 11:59 PM JIGGER ARTISAN GLUCOSE - POINT OF CARE Routine 12/07/2024 8:41 PM JIGGER ARTISAN GLUCOSE - POINT OF CARE Routine 12/07/2024 4:34 PM JIGGER ARTISAN GLUCOSE - POINT OF CARE Routine 12/07/2024 11:56 AM JIGGER ARTISAN GLUCOSE - POINT OF CARE Routine 12/07/2024 8:40 AM JIGGER ARTISAN PHOSPHORUS BLOOD Routine 12/07/2024 5:15 AM JIGGER ARTISAN MAGNESIUM BLOOD Routine 12/07/2024 5:15 AM JIGGER ARTISAN COMPREHENSIVE METABOLIC PANEL AM Draw 12/07/2024 5:15 AM JIGGER ARTISAN CBC W AUTO DIFFERENTIAL AM Draw 12/07/2024 5:15 AM JIGGER ARTISAN GLUCOSE - POINT OF CARE Routine 12/07/2024 5:09 AM JIGGER ARTISAN GLUCOSE - POINT OF CARE Routine 12/06/2024 11:48 PM JIGGER ARTISAN GLUCOSE - POINT OF CARE Routine 12/06/2024 7:57 PM JIGGER ARTISAN GLUCOSE - POINT OF CARE Routine 12/06/2024 4:45 PM JIGGER ARTISAN GLUCOSE - POINT OF CARE Routine 12/06/2024 12:29 PM JIGGER ARTISAN GLUCOSE - POINT OF CARE Routine 12/06/2024 8:17 AM JIGGER ARTISAN PHOSPHORUS BLOOD Routine 12/06/2024 5:39 AM JIGGER ARTISAN MAGNESIUM BLOOD Routine 12/06/2024 5:39 AM JIGGER ARTISAN COMPREHENSIVE METABOLIC PANEL AM Draw 12/06/2024 5:39 AM JIGGER ARTISAN CBC W AUTO DIFFERENTIAL AM Draw 12/06/2024 5:39 AM JIGGER ARTISAN INSULIN FREE + TOTAL Routine 12/06/2024 5:39 AM JIGGER ARTISAN INSULIN LIKE GROWTH FACTOR 2 Routine 12/06/2024 5:39 AM JIGGER ARTISAN IGF BINDING PROTEIN 1 Routine 12/06/2024 5:39 AM JIGGER ARTISAN HYDROXYBUTYRATE BETA Routine 12/06/2024 5:39 AM JIGGER ARTISAN CORTISOL BLOOD AM Timed 12/06/2024 5:3 9 AM [facility] ART[facility]AN PROINSULIN Routine 12/06/2024 5:39 AM JIGGER ARTISAN C-PEPTIDE Routine 12/06/2024 5:39 AM JIGGER ARTISAN GLUCOSE - POINT OF CARE Routine 12/06/2024 4:14 AM JIGGER ARTISAN GLUCOSE - POINT OF CARE Routine 12/05/2024 11:51 PM JIGGER ARTISAN GLUCOSE - POINT OF CARE Routine 12/05/2024 8:38 PM JIGGER ARTISAN GLUCOSE - POINT OF CARE Routine 12/05/2024 3:59 PM JIGGER ARTISAN GLUCOSE - POINT OF CARE Routine 12/05/2024 12:17 PM JIGGER ARTISAN C-PEPTIDE Routine 12/05/2024 10:08 AM JIGGER ARTISAN PROINSULIN AM Draw 12/05/2024 10:07 AM JIGGER ARTISAN INSULIN FREE + TOTAL AM Draw 12/05/2024 10:07 AM JIGGER ARTISAN GLUCOSE - POINT OF CARE Routine 12/05/2024 8:20 AM JIGGER ARTISAN GLUCOSE - POINT OF CARE Routine 12/05/2024 7:48 AM JIGGER ARTISAN GLUCOSE - POINT OF CARE Routine 12/05/2024 7:38 AM JIGGER ARTISAN PHOSPHORUS BLOOD Routine 12/05/2024 6:32 AM JIGGER ARTISAN MAGNESIUM BLOOD Routine 12/05/2024 6:32 AM JIGGER ARTISAN COMPREHENSIVE METABOLIC PANEL AM Draw 12/05/2024 6:32 AM JIGGER ARTISAN CBC W AUTO DIFFERENTIAL AM Draw 12/05/2024 6:32 AM JIGGER ARTISAN GLUCOSE - POINT OF CARE Routine 12/05/2024 3:51 AM JIGGER ARTISAN GLUCOSE - POINT OF CARE Routine 12/05/2024 3:39 AM JIGGER ARTISAN GLUCOSE - POINT OF CARE Routine 12/05/2024 3:32 AM JIGGER ARTISAN GLUCOSE - POINT OF CARE Routine 12/05/2024 3:27 AM JIGGER ARTISAN GLUCOSE - POINT OF CARE Routine 12/05/2024 3:17 AM JIGGER ARTISAN GLUCOSE - POINT OF CARE Routine 12/05/2024 3:05 AM JIGGER ARTISAN GLUCOSE - POINT OF CARE Routine 12/04/2024 7:42 PM JIGGER ARTISAN GLUCOSE - POINT OF CARE Routine 12/04/2024 6:53 PM JIGGER ARTISAN GLUCOSE - POINT OF CARE Routine 12/04/2024 6:30 PM JIGGER ARTISAN GLUCOSE - POINT OF CARE Routine 12/04/2024 6:09 PM JIGGER ARTISAN GLUCOSE - POINT OF CARE Routine 12/04/2024 5:46 PM JIGGER ARTISAN US ABDOMEN LIMITED STAT 12/04/2024 11 :40 AM JIGGER ARTISAN Hepatic cirrhosis, unspecified hepatic cirrhosis type, unspecified whether ascites present (HCC) CARDIAC EKG ORDER 12/04/2024 11: 29 AM JIGGER ARTISAN UREA NITROGEN URINE RANDOM STAT 12/04/2024 9:39 AM JIGGER ARTISAN FERRITIN MICHELLE 12/04/2024 9:38 AM JIGGER ARTISAN VITAMIN B12 MICHELLE 12/04/2024 9:38 AM JIGGER ARTISAN FOLATE MICHELLE 12/04/2024 9:38 AM JIGGER ARTISAN IRON + TRANSFERRIN PANEL STAT 12/04/2024 9:38 AM JIGGER ARTISAN GLUCOSE - POINT OF CARE Routine 12/04/2024 7:48 AM JIGGER ARTISAN GLUCOSE - POINT OF CARE Routine 12/04/2024 5:46 AM JIGGER ARTISAN GLUCOSE - POINT OF CARE Routine 12/04/2024 4:50 AM JIGGER ARTISAN PHOSPHORUS BLOOD STAT 12/04/2024 4:33 AM JIGGER ARTISAN MAGNESIUM BLOOD STAT 12/04/2024 4:33 AM JIGGER ARTISAN COMPREHENSIVE METABOLIC PANEL STAT 12/04/2024 4:33 AM JIGGER ARTISAN CBC W AUTO DIFFERENTIAL STAT 12/04/2024 4:25 AM JIGGER ARTISAN GLUCOSE - POINT OF CARE Routine 12/04/2024 4:20 AM JIGGER ARTISAN GLUCOSE - POINT OF CARE Routine 12/04/2024 2:29 AM JIGGER ARTISAN GLUCOSE - POINT OF CARE Routine 12/04/2024 12:51 AM JIGGER ARTISAN CREATININE URINE RANDOM STAT 12/04/2024 12:17 AM JIGGER ARTISAN LYTES (NA K CL) URINE RANDOM PANEL STAT 12/04/2024 12:17 AM JIGGER ARTISAN URINALYSIS REFLEX MICROSCOPIC REFLEX CULTURE STAT 12/04/2024 12:17 AM JIGGER ARTISAN GLUCOSE - POINT OF CARE Routine 12/03/2024 11:09 PM JIGGER ARTISAN GLUCOSE - POINT OF CARE Routine 12/03/2024 8:33 PM JIGGER ARTISAN GLUCOSE - POINT OF CARE Routine 12/03/2024 8:27 PM JIGGER ARTISAN CULTURE BLOOD Timed 12/03/2024 6:17 PM JIGGER ARTISAN CULTURE BLOOD Timed 12/03/2024 6:[address] HEAD WO CONTRAST STAT 12/03/2024 4 :56 PM JIGGER ARTISAN Altered mental status, unspecified altered mental status type Hepatic cirrhosis, unspecified hepatic cirrhosis type, unspecified whether ascites present (HCC) TROPONIN-I HIGH SENSITIVE REFLEX 1HOUR Timed 12/03/2024 3:26 PM JIGGER ARTISAN SARS-COV-2 (COVID-19) FLU A/B RSV PCR RAPID STAT 12/03/2024 12:36 PM JIGGER ARTISAN PTT [facility] STAT 12/03/2024 12:35 PM JIGGER ARTISAN PT-INR [facility] STAT 12/03/2024 12:35 PM JIGGER ARTISAN AMMONIA STAT 12/03/2024 12:35 PM JIGGER ARTISAN TROPONIN-I HIGH SENSITIVE BASELINE + 1HR STAT 12/03/2024 12:35 PM JIGGER ARTISAN MAGNESIUM BLOOD STAT 12/03/2024 12:35 PM JIGGER ARTISAN COMPREHENSIVE METABOLIC PANEL STAT 12/03/2024 12:35 PM JIGGER ARTISAN CBC W AUTO DIFFERENTIAL STAT 12/03/2024 12:35 PM JIGGER ARTISAN EKG 12-LEAD STAT 12/03/2024 12:21 PM JIGGER ARTISAN Altered mental status, unspecified altered mental status type XR CHEST 2VW STAT 12/03/2024 11:24 AM JIGGER ARTISAN Altered mental status, unspecified altered mental status type GLUCOSE - POINT OF CARE Routine 11/13/2024 3:43 PM JIGGER ARTISAN GLUCOSE - POINT OF CARE Routine 11/13/2024 10:46 AM JIGGER ARTISAN GLUCOSE - POINT OF CARE Routine 11/13/2024 8:48 AM JIGGER ARTISAN CBC W AUTO DIFFERENTIAL Routine 11/13/2024 7:57 AM JIGGER ARTISAN MAGNESIUM BLOOD Routine 11/13/2024 7:57 AM JIGGER ARTISAN PHOSPHORUS BLOOD Routine 11/13/2024 7:57 AM JIGGER ARTISAN COMPREHENSIVE METABOLIC PANEL Routine 11/13/2024 7:57 AM JIGGER ARTISAN GLUCOSE - POINT OF CARE Routine 11/12/2024 8:31 PM JIGGER ARTISAN GLUCOSE - POINT OF CARE Routine 11/12/2024 3:43 PM JIGGER ARTISAN GLUCOSE - POINT OF CARE Routine 11/12/2024 10:56 AM JIGGER ARTISAN CBC W AUTO DIFFERENTIAL Routine 11/12/2024 7:11 AM JIGGER ARTISAN MAGNESIUM BLOOD Routine 11/12/2024 7:11 AM JIGGER ARTISAN PHOSPHORUS BLOOD Routine 11/12/2024 7:11 AM JIGGER ARTISAN COMPREHENSIVE METABOLIC PANEL Routine 11/12/2024 7:11 AM JIGGER ARTISAN GLUCOSE - POINT OF CARE Routine 11/12/2024 6:37 AM JIGGER ARTISAN GLUCOSE - POINT OF CARE Routine 11/11/2024 8:50 PM JIGGER ARTISAN GLUCOSE - POINT OF CARE Routine 11/11/2024 3:10 PM JIGGER ARTISAN CARDIAC EKG ORDER 11/11/2024 12: 23 PM JIGGER ARTISAN GLUCOSE - POINT OF CARE Routine 11/11/2024 11:44 AM JIGGER ARTISAN CBC W AUTO DIFFERENTIAL Routine 11/11/2024 9:07 AM JIGGER ARTISAN MAGNESIUM BLOOD Routine 11/11/2024 9:07 AM JIGGER ARTISAN PHOSPHORUS BLOOD Routine 11/11/2024 9:07 AM JIGGER ARTISAN COMPREHENSIVE METABOLIC PANEL Routine 11/11/2024 9:07 AM JIGGER ARTISAN GLUCOSE - POINT OF CARE Routine 11/11/2024 6:56 AM JIGGER ARTISAN GLUCOSE - POINT OF CARE Routine 11/10/2024 10:52 PM JIGGER ARTISAN GLUCOSE - POINT OF CARE Routine 11/10/2024 4:39 PM JIGGER ARTISAN GLUCOSE - POINT OF CARE Routine 11/10/2024 12:25 PM JIGGER ARTISAN GLUCOSE - POINT OF CARE Routine 11/10/2024 6:59 AM JIGGER ARTISAN CBC W AUTO DIFFERENTIAL Routine 11/10/2024 6:23 AM JIGGER ARTISAN MAGNESIUM BLOOD Routine 11/10/2024 6:23 AM JIGGER ARTISAN PHOSPHORUS BLOOD Routine 11/10/2024 6:23 AM JIGGER ARTISAN COMPREHENSIVE METABOLIC PANEL Routine 11/10/2024 6:23 AM JIGGER ARTISAN GLUCOSE - POINT OF CARE Routine 11/10/2024 1:23 AM JIGGER ARTISAN GLUCOSE - POINT OF CARE Routine 11/09/2024 5:46 PM JIGGER ARTISAN GLUCOSE - POINT OF CARE Routine 11/09/2024 4:10 PM JIGGER ARTISAN GLUCOSE - POINT OF CARE Routine 11/09/2024 11:38 AM [facility] CBC W AUTO DIFFERENTIAL Routine 11/09/2024 7:18 AM [facility] MAGNESIUM BLOOD Routine 11/09/2024 7:18 AM [facility] PHOSPHORUS BLOOD Routine 11/09/2024 7:18 AM [facility] COMPREHENSIVE METABOLIC PANEL Routine 11/09/2024 7:18 AM [facility] GLUCOSE - POINT OF CARE Routine 11/09/2024 7:09 AM [facility] GLUCOSE - POINT OF CARE Routine 11/08/2024 9:45 PM [facility] CBC W AUTO DIFFERENTIAL Routine 11/08/2024 5:13 PM [facility] MAGNESIUM BLOOD Routine 11/08/2024 5:13 PM [facility] PHOSPHORUS BLOOD Routine 11/08/2024 5:13 PM [facility] COMPREHENSIVE METABOLIC PANEL Routine 11/08/2024 5:13 PM [facility] GLUCOSE - POINT OF CARE Routine 11/08/2024 4:27 PM [facility] GLUCOSE - POINT OF CARE Routine 11/08/2024 12:04 PM [facility] GLUCOSE - POINT OF CARE Routine 11/08/2024 6:50 AM [facility] GLUCOSE - POINT OF CARE Routine 11/07/2024 9:06 PM [facility] GLUCOSE - POINT OF CARE Routine 11/07/2024 5:02 PM [facility] GLUCOSE - POINT OF CARE Routine 11/07/2024 2:46 PM [facility] HIV-1 HIV-2 ANTIBODY + HIV P24 AG PANEL STAT 11/07/2024 4:27 AM [facility] TSH REFLEX FREE T4 STAT 11/07/2024 4: 27 AM [facility] VITAMIN B12 MICHELLE 11/07/2024 4:27 AM [facility] FOLATE MICHELLE 11/07/2024 4:27 AM [facility] VITAMIN B1 STAT 11/07/2024 4:27 AM [facility] SYPHILIS ANTIBODY CASCADING REFLEX STAT 11/07/2024 4:27 AM [facility] CBC W AUTO DIFFERENTIAL STAT 11/07/2024 4:27 AM [facility] MAGNESIUM BLOOD STAT 11/07/2024 4:27 AM [facility] PHOSPHORUS BLOOD STAT 11/07/2024 4:27 AM [facility] COMPREHENSIVE METABOLIC PANEL STAT 11/07/2024 4:27 AM [facility] GLUCOSE - POINT OF CARE Routine 11/07/2024 12:21 AM [facility] URINALYSIS W/MICROSCOPIC REFLEX TO CULTURE STAT 11/06/2024 11:44 PM [facility] URINE DRUG SCREEN IMMUNOASSAY STAT 11/06/2024 11:43 PM [facility] DIFFERENTIAL MANUAL FLUID STAT 11/06/2024 8:27 PM [facility] PROTEIN BODY FLUID STAT 11/06/2024 8: 27 PM [facility] GLUCOSE BODY FLUID STAT 11/06/2024 8: 27 PM [facility] CELL COUNT W DIFFERENTIAL FLUID STAT 11/06/2024 8:27 PM [facility] HYDROXYBUTYRATE BETA STAT 11/06/2024 8:26 PM [facility] CULTURE FLUID+GRAM STAIN STAT 11/06/2024 8:15 PM [facility] ED PARACENTESIS Routine 11/06/2024 6:28 PM [facility] Encephalopathy, unspecified type Decompensated cirrhosis (HCC) TROPONIN-I HIGH SENSITIVE REFLEX 1HOUR Timed 11/06/2024 4:33 PM [facility] SARS-COV-2 (COVID-19)+INFLU A+B PCR RAPID STAT 11/06/2024 3:40 PM [facility] TROPONIN-I HIGH SENSITIVE BASELINE + 1HR STAT 11/06/2024 3:30 PM [facility] AMMONIA STAT 11/06/2024 3:30 PM [facility] EKG 12-LEAD STAT 11/06/2024 3:17 PM [facility] Encephalopathy, unspecified type CT HEAD WO CONTRAST STAT 11/06/2024 2 :47 PM [facility] Encephalopathy, unspecified type XR CHEST 1VW PORTABLE STAT 11/06/2024 2:29 PM [facility] Encephalopathy, unspecified type LIPASE BLOOD STAT 11/06/2024 12:54 PM [facility] PT-INR SLH STAT 11/06/2024 12:54 PM [facility] COMPREHENSIVE METABOLIC PANEL STAT 11/06/2024 12:54 PM [facility] CBC W AUTO DIFFERENTIAL STAT 11/06/2024 12:54 PM [facility] PA ESOPHAGUS MOTILITY STUDY 10/31/2024 9:25 AM [facility] Dysphagia, unspecified type GLUCOSE - POINT OF CARE Routine 10/28/2024 10:51 AM [facility] GLUCOSE - POINT OF CARE Routine 10/28/2024 8:12 AM [facility] PT-INR SLH Routine 10/28/2024 6:14 AM [facility] CBC W/O DIFFERENTIAL Routine 10/28/2024 6:14 AM [facility] PHOSPHORUS BLOOD Routine 10/28/2024 6:14 AM [facility] MAGNESIUM BLOOD Routine 10/28/2024 6:14 AM [facility] COMPREHENSIVE METABOLIC PANEL Routine 10/28/2024 6:14 AM [facility] GLUCOSE - POINT OF CARE Routine 10/27/2024 8:28 PM [facility] GLUCOSE - POINT OF CARE Routine 10/27/2024 4:53 PM [facility] GLUCOSE - POINT OF CARE Routine 10/27/2024 12:17 PM [facility] PT-INR SLH Routine 10/27/2024 8:18 AM [facility] CBC W/O DIFFERENTIAL Routine 10/27/2024 8:18 AM [facility] PHOSPHORUS BLOOD Routine 10/27/2024 8:18 AM [facility] MAGNESIUM BLOOD Routine 10/27/2024 8:18 AM [facility] COMPREHENSIVE METABOLIC PANEL Routine 10/27/2024 8:18 AM [facility] GLUCOSE - POINT OF CARE Routine 10/27/2024 8:01 AM [facility] GLUCOSE - POINT OF CARE Routine 10/26/2024 9:12 PM [facility] GLUCOSE - POINT OF CARE Routine 10/26/2024 9:14 AM [facility] VITAMIN D 1,25 DIHYDROXY Routine 10/26/2024 4:00 AM [facility] PT-INR SLH Routine 10/26/2024 4:00 AM [facility] CBC W/O DIFFERENTIAL Routine 10/26/2024 4:00 AM [facility] PHOSPHORUS BLOOD Routine 10/26/2024 4:00 AM [facility] MAGNESIUM BLOOD Routine 10/26/2024 4:00 AM [facility] COMPREHENSIVE METABOLIC PANEL Routine 10/26/2024 4:00 AM [facility] GLUCOSE - POINT OF CARE Routine 10/25/2024 8:57 PM [facility] GLUCOSE - POINT OF CARE Routine 10/25/2024 4:22 PM [facility] GLUCOSE - POINT OF CARE Routine 10/25/2024 12:17 PM [facility] SODIUM URINE RANDOM Routine 10/25/2024 1 0:40 AM [facility] GLUCOSE - POINT OF CARE Routine 10/25/2024 8:59 AM [facility] US ABDOMEN LTD W COMP DOPPLER Routine 10/25/2024 8:20 AM [facility] Hepatic encephalopathy (HCC) PTH RELATED PEPTIDE AM Draw 10/25/2024 4 :54 AM [facility] LDH BLOOD Routine 10/25/2024 4:54 AM [facility] VITAMIN D 25-HYDROXY AM Draw 10/25/2024 4:54 AM [facility] PTH INTACT W/O CALCIUM AM Draw 4:54 AM [facility] PT-INR SLH Routine 10/25/2024 4:54 AM [facility] CBC W/O DIFFERENTIAL Routine 10/25/2024 4:54 AM [facility] PHOSPHORUS BLOOD Routine 10/25/2024 4:54 AM [facility] MAGNESIUM BLOOD Routine 10/25/2024 4:54 AM [facility] COMPREHENSIVE METABOLIC PANEL Routine 10/25/2024 4:54 AM [facility] GLUCOSE - POINT OF CARE Routine 10/24/2024 9:28 PM [facility] GLUCOSE - POINT OF CARE Routine 10/24/2024 5:21 PM [facility] GLUCOSE - POINT OF CARE Routine 10/24/2024 12:31 PM [facility] CALCIUM IONIZED WHOLE BLOOD AM Draw 10/24/2024 8:47 AM [facility] HEMOGLOBIN A1C Routine 10/24/2024 8:47 AM [facility] PT-INR SLH Routine 10/24/2024 8:47 AM [facility] CBC W/O DIFFERENTIAL Routine 10/24/2024 8:47 AM [facility] PHOSPHORUS BLOOD Routine 10/24/2024 8:47 AM [facility] MAGNESIUM BLOOD Routine 10/24/2024 8:47 AM [facility] COMPREHENSIVE METABOLIC PANEL Routine 10/24/2024 8:47 AM [facility] LACTIC ACID BLOOD AM Draw 10/24/2024 8:4 7 AM [facility] GLUCOSE - POINT OF CARE Routine 10/24/2024 8:29 AM [facility] GLUCOSE - POINT OF CARE Routine 10/24/2024 6:14 AM [facility] GLUCOSE - POINT OF CARE Routine 10/23/2024 11:50 PM [facility] GLUCOSE - POINT OF CARE Routine 10/23/2024 9:56 PM [facility] GLUCOSE - POINT OF CARE Routine 10/23/2024 9:[address] HEAD WO CONTRAST STAT 10/23/2024 9 :23 PM [facility] Hepatic encephalopathy (HCC) XR CHEST 1VW PORTABLE STAT 10/23/2024 8:09 PM [facility] Hepatic encephalopathy (HCC) BLOOD GASES REINA + COOX PANEL STAT 10/23/2024 6:25 PM [facility] CULTURE BLOOD Timed 10/23/2024 6:25 PM [facility] HYDROXYBUTYRATE BETA STAT 10/23/2024 6:11 PM [facility] LACTIC ACID BLOOD REFLEX TO REPEAT Timed STAT 10/23/2024 6:11 PM [facility] CULTURE BLOOD Timed 10/23/2024 6:11 PM [facility] DIFFERENTIAL MANUAL FLUID STAT 10/23/2024 5:27 PM [facility] CELL COUNT W DIFFERENTIAL FLUID STAT 10/23/2024 5:27 PM [facility] CULTURE FLUID+GRAM STAIN STAT 10/23/2024 5:27 PM [facility] ED PARACENTESIS Routine 10/23/2024 4:59 PM [facility] LACTIC ACID BLOOD REFLEX TO REPEAT Timed STAT 10/23/2024 3:09 PM [facility] URINALYSIS W/MICROSCOPIC REFLEX TO CULTURE STAT 10/23/2024 3:09 PM [facility] MAGNESIUM BLOOD STAT 10/23/2024 12:54 PM [facility] AMMONIA STAT 10/23/2024 12:54 PM [facility] LACTIC ACID BLOOD REFLEX TO REPEAT STAT 10/23/2024 12:54 PM [facility] PT-INR SLH STAT 10/23/2024 12:54 PM [facility] COMPREHENSIVE METABOLIC PANEL STAT 10/23/2024 12:54 PM [facility] CBC W AUTO DIFFERENTIAL STAT 10/23/2024 12:54 PM [facility] GLUCOSE - POINT OF CARE Routine 09/30/2024 11:54 AM [facility] GLUCOSE - POINT OF CARE Routine 09/30/2024 7:54 AM [facility] COMPREHENSIVE METABOLIC PANEL AM Draw 09/30/2024 12:21 AM [facility] CBC W AUTO DIFFERENTIAL Routine 09/30/2024 12:21 AM [facility] MAGNESIUM BLOOD Routine 09/30/2024 12:21 AM [facility] PHOSPHORUS BLOOD Routine 09/30/2024 12:2 1 AM [facility] GLUCOSE - POINT OF CARE Routine 09/29/2024 9:06 PM [facility] GLUCOSE - POINT OF CARE Routine 09/29/2024 5:49 PM [facility] GLUCOSE - POINT OF CARE Routine 09/29/2024 11:56 AM [facility] GLUCOSE - POINT OF CARE Routine 09/29/2024 8:39 AM [facility] COMPREHENSIVE METABOLIC PANEL AM Draw 09/29/2024 6:03 AM [facility] CBC W AUTO DIFFERENTIAL Routine 09/29/2024 6:03 AM [facility] MAGNESIUM BLOOD Routine 09/29/2024 6:03 AM [facility] PHOSPHORUS BLOOD Routine 09/29/2024 6:03 AM [facility] GLUCOSE - POINT OF CARE Routine 09/28/2024 8:37 PM [facility] GLUCOSE - POINT OF CARE Routine 09/28/2024 6:42 PM [facility] URINALYSIS REFLEX MICROSCOPIC REFLEX CULTURE STAT 09/28/2024 4:48 PM [facility] AMMONIA STAT 09/28/2024 11:53 AM [facility] PT-INR [facility] STAT 09/28/2024 11:53 AM [facility] MAGNESIUM BLOOD STAT 09/28/2024 11:53 AM [facility] COMPREHENSIVE METABOLIC PANEL STAT 09/28/2024 11:53 AM [facility] CBC W AUTO DIFFERENTIAL STAT 09/28/2024 11:53 AM [facility] from Last 3 Months Results * (ABNORMAL) GLUCOSE - POINT OF CARE (12/08/2024 12:03 PM [facility]) Only the most recent of98 resultswithin the time period is included. Pathologist [facility] Glucose WB/POC 246(H) 70 - 99 mg/dL 12/08/2024 12:03 PM [facility] Specimen Type Cap Fingerstick 2024 12:03 PM [facility] Blood BLOOD SPECIMEN / Unknown 12/08/2024 12:03 PM [facility] 12/08/2024 12:03 PM [facility] Darek Teran MD LAB - POINT OF CARE ORDERABLES [facility] [address] [place] [id number], [facility] [phone] * (ABNORMAL) CBC W AUTO DIFFERENTIAL (12/08/2024 5:06 AM [facility]) Only the most recent of18 resultswithin the time period is included. Pathologist [facility] WBC 3.6(L) 4.0 - 10.7 x10E9/L 12/08/2024 5:38 AM [facility] RBC Count 2.38(L) 4.30 - 5.80 x10E12/L 12/08/2024 5:38 AM [facility] Hemoglobin 7.6(L) 13.3 - 17.5 g/dL 12/08/2024 5:[address] [facility] Hematocrit 22.2(L) 38.7 - 51.1 % 12/08/2024 5:[address] [facility] MCV 93.3 80.0 - 98.0 fL 12/08/2024 5:[address] [facility] MCH 31.9 26.7 - 33.6 pg 12/08/2024 5:[address] [facility] MCHC 34.2 31.7 - 36.3 g/dL 12/08/2024 5:[address] [facility] RDW-CV 17.2(H) 11.3 - 14.8 % 12/08/2024 5:[address] [facility] Platelet Count 121(L) 150 - 420 x10E9/L 12/08/2024 5:[address] [facility] MPV 11.1 7.8 - 11.4 fL 12/08/2024 5:[address] [facility] Neutrophil % 76.9(H) 41.0 - 74.0 % 12/08/2024 5:[address] [facility] Lymphocyte % 7.2(L) 17.0 - 47.0 % 12/08/2024 5:[address] [facility] Monocyte % 10.9 3.0 - 11.0 % 12/08/2024 5:[address] [facility] Eosinophil % 3.9 0.0 - 7.0 % 12/08/2024 5:[address] [facility] Basophil % 0.3 0.0 - 1.6 % 12/08/2024 5:[address] [facility] Immature Granulocytes % 0.8 0.0 - 1.0 % 12/08/2024 5:[address] [facility] Neutrophil Absolute 2.76 1.60 - 7.50 x10E9/L 12/08/2024 5:[address] [facility] Lymphocyte Absolute 0.26(L) 1.00 - 4.40 x10E9/L 12/08/2024 5:[address] [facility] Monocyte Absolute 0.39 0.15 - 1.00 x10E9/L 12/08/2024 5:[address] [facility] Eosinophil Absolute 0.14 0.00 - 0.60 x10E9/L 12/08/2024 5:[address] [facility] Basophil Absolute 0.01 0.00 - 0.13 x10E9/L 12/08/2024 5:[address] [facility] Blood BLOOD SPECIMEN / Unknown Venipuncture / Unknown 12/08/2024 5:06 AM [facility] 12/08/2024 5:20 AM [facility] Juancarlos Lujan MD LAB - HEMATOLOGY ORD ERABLES [facility] [address] [place] [address], [facility] [phone] * (ABNORMAL) COMPREHENSIVE METABOLIC PANEL (12/08/2024 5:06 AM [facility]) Only the most recent of23 resultswithin the time period is included. BUN 27(H) 7 - 26 mg/dL 12/08/2024 5:[address] [facility] Creatinine 1.28(H) 0.71 - 1.16 mg/dL 12/08/2024 5:[address] [facility] Sodium 136 136 - 145 mmol/L 12/08/2024 5:[address] [facility] Potassium 3.7 3.5 - 4.5 mmol/L 12/08/2024 5:[address] [facility] Chloride 110(H) 98 - 107 mmol/L 12/08/2024 5:[address] [facility] CO2 16(L) 22 - 29 mmol/L 12/08/2024 5:[address] [facility] Glucose 171(H) 70 - 99 mg/dL 12/08/2024 5:[address] [facility] Calcium 9.5 8.4 - 10.2 mg/dL 12/08/2024 5:[address] [facility] Protein Total 5.9(L) 6.0 - 8.3 g/dL 12/08/2024 5:[address] [facility] Albumin 2.7(L) 3.4 - 5.0 g/dL 12/08/2024 5:[address] [facility] Bilirubin Total 0.9 0.2 - 1.2 mg/dL 12/08/2024 5:[address] [facility] Alkaline Phosphatase 251(H) 40 - 150 U/L 12/08/2024 5:[address] [facility] ALT 31 5 - 55 U/L 12/08/2024 5:[address] [facility] AST 27 5 - 34 U/L 12/08/2024 5:[address] [facility] Anion Gap 10 6 - 16 12/08/2024 5:[address] [facility] BUN/Creatinine Ratio 21 7 - 23 12/08/2024 5:[address] [facility] Osmolality Calculated 291 275 - 295 mOsm/kg 12/08/2024 5:[address] [facility] Albumin/Globulin Ratio 0.8(L) 1.1 - 2.3 12/08/2024 5:[address] [facility] eGFR by CKD-EPI 57(L) >=90 mL/min/1.7 3 m2 12/08/2024 5:[address] [facility] Blood BLOOD SPECIMEN / Unknown Venipuncture / Unknown 12/08/2024 5:06 AM [facility] 12/08/2024 5:28 AM [facility] Juancarlos Lujan MD LAB - CHEMISTRY ORDUlysses RIVAS [address] [address], [facility] [phone] * (ABNORMAL) PHOSPHORUS BLOOD (12/08/2024 5:06 AM [facility]) Only the most recent of19 resultswithin the time period is included. Phosphorus 1.9(L) 2.8 - 5.1 mg/dL 12/08/2024 5:[address] [facility] Blood BLOOD SPECIMEN / Unknown Venipuncture / Unknown 12/08/2024 5:06 AM [facility] 12/08/2024 5:28 AM [facility] Juancarlos Lujan MD LAB - CHEMISTRY JOHN PAUL RIVAS [facility] [address] [place] [phone], [facility] [phone] * MAGNESIUM BLOOD (12/08/2024 5:06 AM [facility]) Only the most recent of22 resultswithin the time period is included. Magnesium 2.1 1.6 - 2.6 mg/dL 12/08/2024 5:56 AM [facility] Blood BLOOD SPECIMEN / Unknown Venipuncture / Unknown 12/08/2024 5:06 AM [facility] 12/08/2024 5:28 AM [facility] Juancarlos Lujan MD LAB - CHEMISTRY JOHN PAUL RIVAS Performing Organization Address City/[facility]/ZIP Co de Phone Number [address] [address], [facility] [phone] * IGF BINDING PROTEIN 1 (12/06/2024 5:39 AM [facility]) Pathologist [facility] IGF Binding Protein-1 19 5 - 34 ng/mL 12/17/2024 3:04 AM J[facility]GER [facility] [employer] ([facility]) Comment: The limit of detection of this assay is 5 ng/mL. A proportion of normal patients will have results less than 5 ng/mL. This test was developed and its analytical performance characteristics have been determined by [employer]. It has not been cleared or approved by FDA. This assay has been validated pursuant to the CLIA regulations and is used for clinical purposes. Performed by: [facility] [address] [phone] Catie Pope MD, PhD, JIMMY, Blood BLOOD SPECIMEN / Unknown Lab Venipuncture / Unknown 12/06/2024 5:39 AM [facility] 12/06/2024 5:58 AM [facility] Juancarlos Lujan MD LAB - CHEMISTRY JOHN PAUL RIVAS [employer] [facility]) [address] [place] [address], [facility] * INSULIN LIKE GROWTH FACTOR 2 (12/06/2024 5:39 AM [facility]) Pathologist [facility] INSULIN-LIKE GROWTH FACTOR (IGF-2) 156 ng/mL 12/09/2024 1:29 PM [facility]AN [facility] ([facility]) Comment: INTERPRETIVE INFORMATION: Insulin-Like Growth Factor 2 Prepubertal (0-11 years old): 127 to 473 ng/mL Postpubertal (12 years and older): 180 to 580 ng/mL This test was developed and its performance characteristics determined by [facility]. It has not been cleared or approved by the [place] Food and Drug Administration. This test was performed in a CLIA certified laboratory and is intended for clinical purposes. Performed By: [facility] [address] [place] [address] Dramatic Critic: Armando Lowe MD, PhD CLIA Number: [id number] Blood BLOOD SPECIMEN / Unknown Lab Venipuncture / Unknown 12/06/2024 5:39 AM [facility] 12/06/2024 5:58 AM [facility] Juancarlos Lujan MD LAB - CHEMISTRY JOHN PAUL RIVAS [facility]) [address] [place] [address] * INSULIN FREE + TOTAL (12/06/2024 5:39 AM [facility]) Only the most recent of2 resultswithin the time period is included. [facility] Insulin Free 9 3 - 25 uIU/mL 12/10/2024 9:36 AM [facility] ([facility]) Insulin 11 3 - 25 uIU/mL 12/10/2024 9:36 AM [facility]) Comment: INTERPRETIVE INFORMATION: Insulin, Free and Total This test reacts on a nearly equimolar basis with the analogs insulin aspart, insulin glargine, and insulin lispro. Insulin detemir exhibits approximately 50 percent cross-reactivity. Test reactivity with insulin glulisine is negligible (<3 percent). To convert to pmol/L, multiply uIU/mL by 6.0. Reference intervals established for fasting specimens. Performed By: [facility] [address] [place] [address] Dramatic Critic: Armando Lowe MD, PhD CLIA Number: [id number] Blood BLOOD SPECIMEN / Unknown Lab Venipuncture / Unknown 12/06/2024 5:39 AM [facility] 12/06/2024 5:58 AM [facility] Juancarlos Lujan MD LAB - CHEMISTRY ORDUlysses RIVAS Performing Organization Address [facility] de Phone Number [facility] [employer] [facility]) [address] [place] [address] * (ABNORMAL) C-PEPTIDE (12/06/2024 5:39 AM [facility]) Only the most recent of2 resultswithin the time period is included. C-Peptide 6.9(H) 0.5 - 3.3 ng/mL 12/08/2024 9:16 PM [facility] [employer] ([facility]) Comment: INTERPRETIVE INFORMATION: Serum, C-Peptide Reference Interval applies to fasting specimens. To convert to nmol/L, multiply by 0.33 Performed By: [facility] [address] [place] [address] Dramatic Critic: Armando Lowe MD, PhD CLIA Number: [id number] Blood BLOOD SPECIMEN / Unknown Lab Venipuncture / Unknown 12/06/2024 5:39 AM [facility] 12/06/2024 5:58 AM [facility] Juancarlos Lujan MD LAB - CHEMISTRY JOHN PAUL RIVAS Performing Organization Address [facility] de Phone Number [facility] [employer] ([facility]) [address] [place] [address] * (ABNORMAL) PROINSULIN (12/06/2024 5:39 AM [facility]) Only the most recent of2 resultswithin the time period is included. Proinsulin 10.1(H) <=7.2 pmol/L 12/10/2024 7:21 AM [facility] [employer] ([facility]) Comment: Performed By: [facility] [address] [place] [address] Dramatic Critic: Armando Lowe MD, PhD CLIA Number: [id number] Blood BLOOD SPECIMEN / Unknown Lab Venipuncture / Unknown 12/06/2024 5:39 AM [facility] 12/06/2024 5:58 AM [facility] Juancarlos Lujan MD LAB - CHEMISTRY JOHN PAUL RIVAS [facility] ([facility]) [address] [place] [address], [facility] * HYDROXYBUTYRATE BETA (12/06/2024 5:39 AM [facility]) Only the most recent of3 resultswithin the time period is included. Beta-Hydroxybu tyrate <0.50 <0.50 mmol/L 12/06/2024 6:29 AM [facility] Blood BLOOD SPECIMEN / Unknown Lab Venipuncture / Unknown 12/06/2024 5:39 AM J[facility] 12/06/2024 6:02 AM [facility] Juancarlos Lujan MD LAB - CHEMISTRY [facility] PAUL RIVAS Performing Organization Address [facility] Co de Phone Number [address] [address], [facility] [phone] * CORTISOL BLOOD AM (12/06/2024 5:39 AM JIGGER ARTISAN) Cortisol AM 11.6 3.7 - 19.4 ug/dL 12/06/2024 6:47 AM [facility] Blood BLOOD SPECIMEN / Unknown Lab Venipuncture / Unknown 12/06/2024 5:39 AM JIG[facility] ART[facility] 12/06/2024 6:02 AM [facility] Narrative [facility] - 12/06/2024 6:47 AM [facility] Normal cortisol levels are generally highest in the morning hours and lowest from late evening through the demo event specialist 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 The PM measurements of cortisol run approximately one-half to one-third of the AM values. Juancarlos Lujan MD LAB - CHEMISTRY JOHN PAUL RIVAS Performing Organization Address City/[facility]/ZIP Co de Phone Number [address] [address], [facility] [phone] * US Abdomen Limited (12/04/2024 11:40 AM JIGGER ARTISAN) Anatomical Region Laterality Modality Abdomen Ultrasound 12/04/2024 11:4 9 AM [facility] Impressions 12/04/2024 1:29 PM [facility] IMPRESSION: 1. Hepatic cirrhosis with sequela of portal hypertension including moderate volume ascites. 2. No cholelithiasis. 3. Moderate to large volume ascites. > Interpreting Provider: Patsy Orellana MD on 12/04/2024 1:29 PM Narrative 12/04/2024 1:29 PM [facility] PROCEDURE: US ABDOMEN LIMITED DATE/TIME OF EXAM: 12/04/2024 11:40 AM CLINICAL INFORMATION: None relevant/not provided if blank. Indication: K74.60: Hepatic cirrhosis, unspecified hepatic cirrhosis type, unspecified whether ascites present (HCC) Additional History: COMPARISON: Ultrasound from 10/25/2024 TECHNIQUE: Real-time ultrasound of the upper abdomen with DICOM image capture performed by fish technologist. FINDINGS: The liver is coarse in echotexture with nodular contour representing hepatic cirrhosis. No focal hepatic lesions are visualized. The gallbladder is not distended with wall thickness measuring 2 mm, within normal limits. No gallstones are visualized. There is no intrahepatic bile duct dilatation. The common bile duct is measured as 4 mm, within normal limits. The right kidney measures 10.3 x 4.4 x 5.4 cm. There is no renal calculi or hydronephrosis. The spleen measures 10.7 cm. The pancreas is not well visualized. Moderate to large volume ascites is seen. Procedure Note Erika Orellana MD - 12/04/2024 PROCEDURE: US ABDOMEN LIMITED DATE/TIME OF EXAM: 12/04/2024 11:40 AM CLINICAL INFORMATION: None relevant/not provided if blank. Indication: K74.60: Hepatic cirrhosis, unspecified hepatic cirrhosistype, unspecified whether ascites present (HCC) Additional History: COMPARISON: Ultrasound from 10/25/2024 TECHNIQUE: Real-time ultrasound of the upper abdomen with DICOM image capture performed by fish technologist. FINDINGS: The liver is coarse in echotexture with nodular contour representing hepatic cirrhosis. No focal hepatic lesions are visualized. Thegallbladder is not distended with wall thickness measuring 2 mm, within normallimits. No gallstones are visualized. There is no intrahepatic bile duct dilatation. The common bile duct is measured as 4 mm, within normallimits. The right kidney measures 10.3 x 4.4 x 5.4 cm. There is no renal calculior hydronephrosis. The spleen measures 10.7 cm. The pancreas is not well visualized. Moderate to large volume ascites is seen. IMPRESSION: 1. Hepatic cirrhosis with sequela of portal hypertension includingmoderate volume ascites. 2. No cholelithiasis. 3. Moderate to large volume ascites. > Interpreting Provider: Patsy Orellana MD on 12/04/2024 1:29 PM Julio Torres MD US ORDERABLES * CARDIAC EKG ORDER (12/04/2024 11:29 AM [facility]) Only the most recent of2 resultswithin the time period is included. Narrative 12/04/2024 11:29 AM [facility] Ordered by an unspecified provider. Scanned Document CARDIAC SERVICES ORD ERABLES * UREA NITROGEN URINE RANDOM (12/04/2024 9:39 AM [facility]) Urea Nitrogen Random Urine 361 Not Established mg/dL 12/04/2024 11:02 AM [facility] Urine URINE SPECIMEN OBTAINED BY CLEAN CATCH PROCEDURE / Unknown Collection / Unknown 12/04/2024 9:39 AM [facility] 12/04/2024 10:13 AM [facility] Juancarlos Lujan MD LAB - URINE CHEMISTR Y ORDERABLES Performing Organization Address [facility]/State/[facility] Co de Phone Number [address] [address], [facility] [phone] * FOLATE (12/04/2024 9:38 AM [facility]) Only the most recent of2 resultswithin the time period is included. Folate 10.1 7.0 - 31.4 ng/mL 12/04/2024 11:27 AM [facility] Blood BLOOD SPECIMEN / Unknown Venipuncture / Unknown 12/04/2024 9:38 AM [facility] 12/04/2024 10:14 AM [facility] Juancarlos Lujan MD LAB - CHEMISTRY JOHN PAUL RIVAS [address] [address], [place] [phone] * (ABNORMAL) VITAMIN B12 (12/04/2024 9:38 AM [facility]) Only the most recent of2 resultswithin the time period is included. Vitamin B12 1,880(H) 213 - 816 pg/mL 12/04/2024 11:27 AM [facility] Blood BLOOD SPECIMEN / Unknown Venipuncture / Unknown 12/04/2024 9:38 AM [facility] 12/04/2024 10:14 AM [facility] Juancarlos Lujan MD LAB - CHEMISTRY JOHN PAUL RIVAS Performing Organization Address City/[facility]/ZIP Co de Phone Number [address] [address], [place] [phone] * (ABNORMAL) IRON + TRANSFERRIN PANEL (12/04/2024 9:38 AM [facility]) Iron 64 50 - 175 ug/dL 12/04/2024 10:[address] [facility] Transferrin 150(L) 174 - 382 mg/dL 12/04/2024 10:[address] [facility] Transferrin Saturation % 34 16 - 50 % 12/04/2024 10:[address] [facility] TIBC Calculated 188(L) 240 - 450 ug/dL 12/04/2024 10:[address] [facility] Blood BLOOD SPECIMEN / Unknown Venipuncture / Unknown 12/04/2024 9:38 AM [facility] 12/04/2024 10:15 AM [facility] Juancarlos Lujan MD LAB - CHEMISTRY JOHN PAUL RIVAS [address] [address], [place] [phone] * (ABNORMAL) FERRITIN (12/04/2024 9:38 AM [facility]) Ferritin 339(H) 22 - 275 ng/mL 12/04/2024 11:[address] [facility] Blood BLOOD SPECIMEN / Unknown Venipuncture / Unknown 12/04/2024 9:38 AM [facility] 12/04/2024 10:15 AM [facility] Juancarlos Lujan MD LAB - CHEMISTRY JOHN PAUL RIVAS [address] [address], [facility] [phone] * (ABNORMAL) URINALYSIS REFLEX MICROSCOPIC REFLEX CULTURE (12/04/2024 12:17 AM [facility]) Only the most recent of2 resultswithin the time period is included. Color UA Yellow Straw, Yellow 12/04/2024 12:[address] [facility] Clarity UA Clear Clear 12/04/2024 12:[address] [facility] Specific Thayer UA 1.010 1.005 - 1.030 12/04/2024 12:[address] [facility] pH UA 5.0 5.0 - 8.0 pH 12/04/2024 12:[address] [facility] Protein UA Negative Negative 12/04/2024 12:[address] [facility] Glucose UA 1+(A) Negative 12/04/2024 12:[address] [facility] Ketone UA Negative Negative 12/04/2024 12:[address] [facility] Bilirubin UA Negative Negative 12/04/2024 12:[address] [facility] Blood UA Negative Negative 12/04/2024 12:[address] [facility] Nitrite UA Negative Negative 12/04/2024 12:[address] [facility] Leukocyte Esterase Negative Negative 12/04/2024 12:[address] [facility] Urobilinogen UA Negative Negative mg/dL 12/04/2024 12:[address] [facility] Comment UA Microscopic not indicated. 12/04/2024 12:[address] [facility] Urine URINE SPECIMEN OBTAINED BY CLEAN CATCH PROCEDURE / Unknown Collection / Unknown 12/04/2024 12:17 AM [facility] 12/04/2024 12:22 AM [facility] Narrative [facility] - 12/04/2024 12:33 AM [facility] Sarika Martin PA-C LAB - URINALY SIS ORDERABLES Performing Organization Address City/[facility]/ZIP Co de Phone Number [address] [address], [place] [phone] * LYTES (NA K CL) URINE RANDOM PANEL (12/04/2024 12:17 AM [facility]) Sodium Urine 52 Not Established mmol/L 12/04/2024 12:47 AM [facility] Potassium Urine 22.9 Not Established mmol/L 12/04/2024 12:47 AM [facility] Chloride Random Urine 82 Not Established mmol/L 12/04/2024 12:47 AM [facility] Urine URINE SPECIMEN OBTAINED BY CLEAN CATCH PROCEDURE / Unknown Collection / Unknown 12/04/2024 12:17 AM [facility] 12/04/2024 12:22 AM [facility] Juancarlos Lujan MD LAB - URINE CHEMISTR Y ORDERABLES Performing Organization Address City/[facility]/ZIP Co de Phone Number [address] [address], [place] [phone] * CREATININE URINE RANDOM (12/04/2024 12:17 AM [facility]) Creatinine Urine 55.70 Not Established mg/dL 12/04/2024 12:47 AM [facility] Urine URINE SPECIMEN OBTAINED BY CLEAN CATCH PROCEDURE / Unknown Collection / Unknown 12/04/2024 12:17 AM [facility] 12/04/2024 12:22 AM [facility] Juancarlos Lujan MD LAB - URINE CHEMISTR Y ORDERABLES [address] [address], [place] [phone] * CULTURE BLOOD (12/03/2024 6:17 PM [facility]) Only the most recent of4 resultswithin the time period is included. Culture No growth day 5 ADOLPH 12/08/2024 11:01 PM [facility] MICROBIOLOGY Blood PERIPHERAL BLOOD / Unknown Lab Venipuncture / Unknown 12/03/2024 6:17 PM [facility] 12/03/2024 6:39 PM [facility] Homer Moran MD LAB - MICROBIO LOGY ORDERABLES [facility] MICROBIOLOGY [address] [place] [address], [facility] [phone] * CT Head Wo Contrast (12/03/2024 4:56 PM [facility]) Only the most recent of3 resultswithin the time period is included. Anatomical Region Laterality Modality Head Computed Tomogra phy 12/03/2024 5:00 PM [facility] Impressions 12/03/2024 5:01 PM [facility] IMPRESSION: 1. No acute intracranial process. > Interpreting Provider: Abraham Mahajan MD on 12/03/2024 5:01 PM Narrative 12/03/2024 5:01 PM [facility] PROCEDURE: CT HEAD WO CONTRAST DATE/TIME OF EXAM: 12/03/2024 4:57 PM CLINICAL INFORMATION: None relevant/not provided if blank. Indication: R41.82: Altered mental status, unspecified altered mental status type K74.60: Hepatic cirrhosis, unspecified hepatic cirrhosis type, unspecified whether ascites present (HCC) Additional History: EXAMINATION: Computed tomography (CT) of the head without contrast HISTORY: R41.82: Altered mental status, unspecified altered mental status type K74.60: Hepatic cirrhosis, unspecified hepatic cirrhosis type, unspecified whether ascites present (HCC) TECHNIQUE: CT of the head was performed without contrast according to standard protocol. FINDINGS: No acute intra- or extra-axial fluid collections are identified. There is yiik-uw-dighkyty cerebral volume loss with associated ex vacuo ventricular dilatation. The basilar cisterns are patent. No mass effect or midline shift is seen. The velásquez-white matter differentiation is normal. Periventricular white matter hypoattenuation is indicative of chronic small vessel ischemic disease. There is vascular calcification of the carotid siphons. Other than bilateral cataract extractions, the visualized portions of the orbits, paranasal sinuses, and mastoids appear normal. No acute fracture is identified. Some vascular calcifications are noted in the carotid siphons and in the vertebral arteries at the level to the skull base. Procedure Note Abraham Mahajan MD - 12/03/2024 PROCEDURE: CT HEAD WO CONTRAST DATE/TIME OF EXAM: 12/03/2024 4:57 PM CLINICAL INFORMATION: None relevant/not provided if blank. Indication: R41.82: Altered mental status, unspecified altered mental status type K74.60: Hepatic cirrhosis, unspecified hepatic cirrhosis type,unspecified whether ascites present (HCC) Additional History: EXAMINATION: Computed tomography (CT) of the head without contrast HISTORY: R41.82: Altered mental status, unspecified altered mentalstatus type K74.60: Hepatic cirrhosis, unspecified hepatic cirrhosis type,unspecified whether ascites present (HCC) TECHNIQUE: CT of the head was performed without contrast according to standard protocol. FINDINGS: No acute intra- or extra-axial fluid collections are identified. Thereis tubu-lo-lpcbbzyr cerebral volume loss with associated ex vacuoventricular dilatation. The basilar cisterns are patent. No mass effect or midline shift is seen. The velásquez-white matter differentiation is normal. Periventricular white matter hypoattenuation is indicative of chronicsmall vessel ischemic disease. There is vascular calcification of the carotid siphons. Other than bilateral cataract extractions, the visualizedportions of the orbits, paranasal sinuses, and mastoids appear normal. No acute fracture is identified. Some vascular calcifications are noted in the carotid siphons and in the vertebral arteries at the level to the skull base. IMPRESSION: 1. No acute intracranial process. > Interpreting Provider: Abraham Mahajan MD on 12/03/2024 5:01 PM Homer Moran MD CT ORDERABLES * TROPONIN-I HIGH SENSITIVE REFLEX 1HOUR (12/03/2024 3:26 PM [facility]) Only the most recent of2 resultswithin the time period is included. Troponin I High Sensitive 11 <=35 ng/L 12/03/2024 4:33 PM [facility] Delta Troponin I HS 12/03/2024 4:33 PM [facility] Comment:Delta value intentio santy not calculated. Baseline to 1 hour specimen collection interval exceeded. Blood BLOOD SPECIMEN / Unknown Venipuncture / Unknown 12/03/2024 3:26 PM [facility] 12/03/2024 3:56 PM [facility] Sarika Martin PA-C LAB - PROCESS ANALYST RY ORDERABLES Performing Organization Address [facility] Co de Phone Number [facility] [address] [place] [phone] [phone] * SARS-COV-2 (COVID-19) FLU A/B RSV PCR RAPID (12/03/2024 12:36 PM [facility]) COVID-19 PCR Not detected Not detected 12/03/19 1:56 PM [facility] Influenza A PCR Not detected Not detected 12/03/2024 1:[address] [facility] Influenza B PCR Not detected Not detected 12/03/2024 1:[address] [facility] RSV PCR Not detected Not detected 12/03/2024 1:56 PM [facility] Microbiology SPECIMEN FROM NASOPHARYNGEAL STRUCTURE / Unknown Collection / Unknown 12/03/2024 12:36 PM [facility] 12/03/2024 12:40 PM [facility] Narrative [facility] - 12/03/2024 1:56 PM [facility] This nucleic acid amplification assay has been authorized by the Food and Drug administration (FDA) under an Emergency Use Authorization (EUA). This test is only authorized for the duration of time the declaration that circumstances exist justifying the authorization of emergency use of in vitro diagnostic tests for detection of SARS-CoV-2 virus and/or diagnosis of COVID-19 infection under section 564(b)(1) of the Act, 21 U.S.C 360bbb-3 (b)(1), unless the authorization is terminated or revoked sooner. Fact Sheets for this EUA assay are available upon request. Sarika Martin PA-C LAB - MICROBI OLOGY ORDERABLES Performing Organization Address [facility]/ZIP Co de Phone Number [facility] [address] [place] [address], [facility] [phone] * PTT [facility] (12/03/2024 12:35 PM [facility]) APTT 26.4 23.0 - 38.4 Seconds 12/03/2024 1:[address] [facility] Comment:Suggested therapeuti c range for full dose I.V. unfractionated heparin therapy for venous thromboembolism is 71 to 109 seconds. Blood BLOOD SPECIMEN / Unknown Venipuncture / Unknown 12/03/2024 12:35 PM [facility] 12/03/2024 12:43 PM [facility] Sarika PERALTAC LAB - COAGULA TION ORDERABLES Performing Organization Address City/[facility] Co de Phone Number [address] [address], [facility] [phone] * PT-INR [facility] (12/03/2024 12:35 PM [facility]) Only the most recent of9 resultswithin the time period is included. PT 14.7 12.1 - 14.8 Seconds 12/03/2024 1:[address] [facility] INR 1.2 See Comment 12/03/2024 1:06 PM [facility] Comment:The suggested therap eutic range for standard coumadin (warfarin) therapy is an INR of 2.0-3.0. For high-risk patients (Mechanical Mitral Valve Prosthesis, etc.), the suggested prophylactic therapeutic range is an INR of 2.5-3.5. Blood BLOOD SPECIMEN / Unknown Venipuncture / Unknown 12/03/2024 12:35 PM [facility] 12/03/2024 12:43 PM [facility] Sarika GALVIN-C LAB - COAGULA TION ORDERABLES [address] [address], [place] [phone] * TROPONIN-I HIGH SENSITIVE BASELINE + 1HR (12/03/2024 12:35 PM [facility]) Only the most recent of2 resultswithin the time period is included. Troponin I High Sensitive 11 <=35 ng/L 12/03/2024 1:15 PM [facility] Blood BLOOD SPECIMEN / Unknown Venipuncture / Unknown 12/03/2024 12:35 PM [facility] 12/03/2024 12:42 PM [facility] Sarika PERALTAYoQueVos LAB - PROCESS ANALYST RY ORDERABLES Performing Organization Address City/[facility]/ZIP Co de Phone Number [address] [address], [facility] [phone] * AMMONIA (12/03/2024 12:35 PM [facility]) Only the most recent of4 resultswithin the time period is included. Ammonia 51 <=72 umol/L 12/03/2024 12:55 PM [facility] Blood BLOOD SPECIMEN / Unknown Venipuncture / Unknown 12/03/2024 12:35 PM [facility] 12/03/2024 12:55 PM [facility] Sarika Martin PA-C LAB - PROCESS ANALYST RY ORDERABLES Performing Organization Address [facility]/ZIP Co de Phone Number [address] [address], [place] [phone] * EKG 12-LEAD (12/03/2024 12:21 PM [facility]) Only the most recent of2 resultswithin the time period is included. Ventricular Rate 66 BPM SL MUSE Atrial Rate 66 BPM [facility] MUSE P-R Interval 110 ms [facility] MUSE QRS Duration ms 86 ms [facility] MUSE Q-T Interval ms 378 ms [facility] MUSE QTC Calculation (Bezet) 396 ms SL MUSE Calculated P [place] 15 degrees SL MUSE Calculated T [place] 85 degrees SL MUSE Interpretation EKG SINUS RHYTHM POSSIBLE INFERIOR INFARCT , AGE UNDETERMINED ANTERIOR INFARCT (CITED ON OR BEFORE 30-AUG-2024) ABNORMAL ECG WHEN COMPARED WITH ECG OF 06-NOV-2024 15:17, BORDERLINE CRITERIA FOR INFERIOR INFARCT ARE NOW PRESENT Confirmed by NESTOR LEE MD ([id number]) on 12/13/2024 11:34:09 AM [facility] MUSE 12/03/2024 12:2 1 PM [facility] 12/13/2024 11:34 AM [facility] Sarika Martin PA-Isha ECG ORDERABLE S [facility] MUSE * XR CHEST 2VW (12/03/2024 11:24 AM [facility]) Anatomical Region Laterality Modality Chest Digital Radiogra phy 12/03/2024 11:4 7 AM [facility] Narrative 12/03/2024 11:53 AM [facility] PROCEDURE: XR CHEST 2VW, DATE/TIME OF EXAM: 12/03/2024 11:33 AM, LOCATION [facility] INDICATION: R41.82: Altered mental status, unspecified altered mental status type ADDITIONAL CLINICAL INFORMATION: Ordering Provider Reason For Exam: r/o ffusion COMPARISON: Chest radiograph from 11/06/2024. FINDINGS/IMPRESSION: Tubes, lines, and hardware: *Right internal jugular approach Port-A-Cath terminates in the distal spine are unremarkable. *Left chest wall cardiac pacemaker device with subclavian approach with leads terminating in the right atrium and right ventricle. *Partially visualized anterior cervical spinal fusion hardware. Low lung volumes with bronchial vascular crowding. Moderate left pleural effusion with adjacent atelectasis and/or airspace disease, worsened compared to prior exam. No right pleural effusion.No pneumothorax is visible. The cardiomediastinal silhouette is partially obscured. Atherosclerotic calcification within the aortic arch. Calcified mediastinal/left hilar lymph nodes. Degenerative changes are noted in the thoracic spine and shoulders. The report was drafted by Yaw Alvarez MD (physical therapy resident) 12/03/2024 11:47 AM. Candice Haddad MD have personally reviewed and interpreted this examination/study. > Interpreting Provider: Candice Gordon MD on 12/03/2024 11:53 AM Procedure Note Candice Gordon MD - 12/03/2024 PROCEDURE: XR CHEST 2VW, DATE/TIME OF EXAM: 12/03/2024 11:33 AM, LOCATION [facility] INDICATION: R41.82: Altered mental status, unspecified altered mental status type ADDITIONAL CLINICAL INFORMATION: Ordering Provider Reason For Exam: r/o ffusion COMPARISON: Chest radiograph from 11/06/2024. FINDINGS/IMPRESSION: Tubes, lines, and hardware: *Right internal jugular approach Port-A-Cath terminates in the distalspine are unremarkable. *Left chest wall cardiac pacemaker device with subclavian approach with leads terminating in the right atrium and right ventricle. *Partially visualized anterior cervical spinal fusion hardware. Low lung volumes with bronchial vascular crowding. Moderate left pleural effusion with adjacent atelectasis and/or airspace disease, worsened compared to prior exam. No right pleural effusion.No pneumothorax is visible. Thecardiomediastinal silhouette is partially obscured. Atherosclerotic calcification withinthe aortic arch. Calcified mediastinal/left hilar lymph nodes. Degenerative changes are noted in the thoracic spine and shoulders. The report was drafted by Yaw Alvarez MD (physical therapy resident) 12/03/2024 11:47 AM. ICandice MD have personally reviewed and interpreted this examination/study. > Interpreting Provider: Candice Gordon MD on 12/03/2024 11:53 AM Sarika Martin PA-C DIAGNOSTIC IM AGING ORDERABLES * SYPHILIS ANTIBODY CASCADING REFLEX (11/07/2024 4:27 AM [facility]) Treponema pallidum Antibody Non-react pepe Non-react pepe 11/07/2024 5:23 AM [facility] Comment: No Laboratory evidence of syphilis infection. Note: Circulating antibodies may be low or undetectable in early infection. If recent exposure is suspected, re-draw sample in 2-4 weeks and repeat testing. Blood BLOOD SPECIMEN / Unknown Venipuncture / Unknown 11/07/2024 4:27 AM [facility] 11/07/2024 4:37 AM [facility] Juancarlos Lujan MD LAB - SEROLOGY ORDER DENISE [facility] [address] [place] [address], [place] [phone] * HIV-1 HIV-2 ANTIBODY + HIV P24 AG PANEL (11/07/2024 4:27 AM [facility]) [facility] HIV Antigen/Antibod y 1 & 2 Non-reacti ve Non-react pepe 11/07/2024 5:23 AM [facility] Comment:No Laboratory eviden ce of HIV infection. Blood BLOOD SPECIMEN / Unknown Venipuncture / Unknown 11/07/2024 4:27 AM [facility] 11/07/2024 4:37 AM [facility] Juancarlos Lujan MD LAB - CHEMISTRY JOHN PAUL RIVAS Performing Organization Address City/[facility]/ZIP Co de Phone Number [address] [address], [place] [phone] * TSH REFLEX FREE T4 (11/07/2024 4:27 AM JIGGER ARTISAN) [facility] TSH 0.697 0.350 - 4.940 uIU/mL 11/07/2024 5:41 AM [facility] Blood BLOOD SPECIMEN / Unknown Venipuncture / Unknown 11/07/2024 4:27 AM [facility] 11/07/2024 4:39 AM [facility] Juancarlos Lujan MD LAB - CHEMISTRY JOHN PAUL RIVAS Performing Organization Address City/[facility]/ZIP Co de Phone Number [address] [address], [place] [phone] * VITAMIN B1 (11/07/2024 4:27 AM JIGGER [facility]ISAN) [facility] Vitamin B1 Whole Blood 96 70 - 180 nmol/L 11/09/2024 12:56 PM [facility] ([facility]) Comment: INTERPRETIVE INFORMATION: Vitamin B1, Whole Blood This assay measures the concentration of thiamine diphosphate (TDP), the primary active form of vitamin B1. Approximately 90 percent of vitamin B1 present in whole blood is TDP. Thiamine and thiamine monophosphate, which comprise the remaining 10 percent, are not measured. This test was developed and its performance characteristics determined by [facility] [employer]. It has not been cleared or approved by the [place] Food and Drug Administration. This test was performed in a CLIA certified laboratory and is intended for clinical purposes. Performed By: [place] [id number] Dramatic Critic: Armando Lowe MD, PhD CLIA Number: [id number] Blood BLOOD SPECIMEN / Unknown Venipuncture / Unknown 11/07/2024 4:27 AM [facility] 11/07/2024 4:37 AM [facility] Juancarlos Lujan MD LAB - CHEMISTRY JOHN PAUL RIVAS [facility] ([facility]) [address] [place] [address], [facility] * (ABNORMAL) URINALYSIS W/MICROSCOPIC REFLEX TO CULTURE (11/06/2024 11:44 PM [facility]) Only the most recent of2 resultswithin the time period is included. Color UA Yellow Straw, Yellow 11/07/2024 12:[address] [facility] Clarity UA Clear Clear 11/07/2024 12:[address] [facility] Specific Thayer UA 1.011 1.005 - 1.030 11/07/2024 12:[address] [facility] pH UA 5.0 5.0 - 8.0 pH 11/07/2024 12:[address] [facility] Protein UA Negative Negative 11/07/2024 12:[address] [facility] Glucose UA 3+(A) Negative 11/07/2024 12:[address] [facility] Ketone UA Negative Negative 11/07/2024 12:[address] [facility] Bilirubin UA Negative Negative 11/07/2024 12:[address] [facility] Blood UA Negative Negative 11/07/2024 12:[address] [facility] Nitrite UA Negative Negative 11/07/2024 12:[address] [facility] Leukocyte Esterase Negative Negative 11/07/2024 12:[address] [facility] Urobilinogen UA Negative Negative mg/dL 11/07/2024 12:[address] [facility] RBC UA 0-2 None Seen, 0-2, 3-5 /HPF 11/07/2024 12:[address] [facility] WBC UA 0-5 None Seen, 0-5 /HPF 11/07/2024 12:[address] [facility] Bacteria UA Trace(A) None /HPF 11/07/2024 12:[address] [facility] Squamous Epithelial Cells UA None Seen None Seen, 0-2, 3-5 /HPF 11/07/2024 12:[address] [facility] Mucus UA 1+ /LPF 11/07/2024 12:[address] [facility] Hyaline Casts UA 0-2 None Seen, 0-2 /LPF 11/07/2024 12:[address] [facility] Urine URINE SPECIMEN OBTAINED BY CLEAN CATCH PROCEDURE / Unknown Collection / Unknown 11/06/2024 11:44 PM [facility] 11/07/2024 12:04 AM [facility] - 11/07/2024 12:16 AM [facility] ART[facility]AN Culture Not Indicated [place] LAB - URINALY SIS ORDERABLES [facility] [address] [place] [phone], [facility] [phone] * URINE DRUG SCREEN IMMUNOASSAY (11/06/2024 11:43 PM [facility]) Pathologist [facility] Amphetamines Screen Urine Negative Negative: < 1000 ng/mL 11/07/2024 12:[address] [facility] Barbiturates Screen Urine Negative Negative: < 200 ng/mL 11/07/2024 12:[address] [facility] Benzodiazepine Screen Urine Negative Negative: < 200 ng/mL 11/07/2024 12:[address] [facility] Opiates Urine Negative Negative: < 300 ng/mL 11/07/2024 12:[address] [facility] Cocaine Metabolites Urine Negative Negative: < 300 ng/mL 11/07/2024 12:[address] [facility] Phencyclidine Screen Urine Negative Negative: < 25 ng/ml 11/07/2024 12:[address] [facility] Cannabinoids Screen Urine Negative Negative: <50 ng/mL 11/07/2024 12:[address] [facility] Methadone Screen Urine Negative Negative: < 300 ng/mL 11/07/2024 12:[address] [facility] Fentanyl Screen Urine Negative Negative: <1.5 ng/mL 11/07/2024 12:[address] [facility] Urine URINE / Unknown Collection / Unknown 11/06/2024 11:43 PM [facility] 11/07/2024 12:04 AM [facility] Narrative [facility] - 11/07/2024 12:43 AM [facility] The Urine Toxicology Screening Panel does not screen for Propoxyphene, Meprobamate, Carisoprodol, Trazodone, mhbo-dja-ejngjpm medications and/or volatiles (Acetone, Isopropanol, Methanol or Ethylene Glycol). Ethanol, Salicylate, Acetaminophen, Tricyclic Antidepressants and several therapeutic drugs may be individually assayed in serum or plasma specimen. Toxicology testing by the [facility] is an aid to medical diagnosis and treatment of patients. No documented chain of custody was maintained. Results are intended to be used for clinical purposes only. Juancarlos Lujan MD LAB - URINE CHEMISTR Y ORDERABLES [address] [address], [facility] [phone] * PROTEIN BODY FLUID (11/06/2024 8:27 PM [facility]) Protein Fluid 1.2 Not Established For Fluids g/dL 11/06/2024 9:[address] [facility] Fluid Type Peritoneal Fluid 11/06/2024 9:[address] [facility] Fluid PERITONEAL FLUID / Unknown Collection / Unknown 11/06/2024 8:27 PM [facility] 11/06/2024 8:32 PM [facility] Narrative [facility] - 11/06/2024 9:22 PM [facility] The analytical performance of this test has been independently validated by the laboratory. A reference range has not been established for this fluid. Comparison of this result with the concentration in blood, serum or plasma is recommended. Homer Hallman MD LAB - BODY FLUID ORD ERABLES [address] [address], [facility] [phone] * GLUCOSE BODY FLUID (11/06/2024 8:27 PM [facility]) Glucose Fluid 126 Not Established For Fluids mg/dL 11/06/2024 9:[address] [facility] Fluid Type Peritoneal Fluid 11/06/2024 9:[address] [facility] Fluid PERITONEAL FLUID / Unknown Collection / Unknown 11/06/2024 8:27 PM [facility] 11/06/2024 8:32 PM [facility] - 11/06/2024 9:55 PM [facility] The analytical performance of this test has been independently validated by the laboratory. A reference range has not been established for this fluid. Comparison of this result with the concentration in blood, serum or plasma is recommended. Homer Hallman MD LAB - BODY FLUID ORD ERABLES Performing Organization Address City/[facility] Co de Phone Number [address] [address], [facility] [phone] * DIFFERENTIAL MANUAL FLUID (11/06/2024 8:27 PM [facility]) Only the most recent of2 resultswithin the time period is included. Fluid Source Peritoneal 11/06/2024 10:[address] [facility] Body Fluid Total Cell Count 100 x10E6/L 11/06/2024 10:[address] [facility] Neutrophils Fluid Percent 16 % 11/06/2024 10:[address] [facility] Lymphocytes Fluid Percent 43 % 11/06/2024 10:[address] [facility] Comment:Reactive Lymphocytes present. Macrophages Fluid Percent 36 % 11/06/2024 10:[address] [facility] Eosinophils Fluid Percent 5 % 11/06/2024 10:[address] [facility] Fluid PERITONEAL FLUID / Unknown Collection / Unknown 11/06/2024 8:27 PM [facility] 11/06/2024 8:32 PM [facility] Narrative [facility] - 11/06/2024 10:05 PM [facility] No reference ranges established for body fluid differential cell counts. The test results must be integrated into the clinical context for interpretation. Homer Hallman MD LAB - BODY FLUID ORD RIVERSIDEBLES Performing Organization Address [facility] Co de Phone Number [address] [address], [facility] [phone] * CELL COUNT W DIFFERENTIAL FLUID (11/06/2024 8:27 PM [facility]) Only the most recent of2 resultswithin the time period is included. Fluid Source Peritoneal 11/06/2024 10:[address] [facility] Fluid Appearance SLIGHTLY HAZY 11/06/2024 10:[address] [facility] Fluid Color PALE YELLOW 11/06/2024 10:[address] [facility] Total Nucleated Cells Fluid 92 Reference Range Not Established x10E6/L 11/06/2024 10:[address] [facility] RBC Count Fluid <2,000 Reference Range Not Established x10E6/L 11/06/2024 10:[address] [facility] Fluid PERITONEAL FLUID / Unknown Collection / Unknown 11/06/2024 8:27 PM [facility] 11/06/2024 8:32 PM [facility] - 11/06/2024 10:05 PM [facility] No reference ranges established for body fluid cell counts. Any reference ranges provided are derived from published literature. The test results must be integrated into the clinical context for interpretation. Homer Hallman MD LAB - BODY FLUID ORD CASSIDY Performing Organization Address [facility] Co de Phone Number [address] [phone], [facility] [phone] * (ABNORMAL) CULTURE FLUID+GRAM STAIN (11/06/2024 8:15 PM [facility]) Only the most recent of2 resultswithin the time period is included. Culture Light Achromobacter species(AA) ADOLPH 11/10/2024 4:24 AM [facility] Comment:Isolate is multi tammy g resistant organism (MDRO). Gram Stain Light Red blood cells 11/10/2024 4:24 AM [facility] Gram Stain Rare Polymorphonuclear cells 11/10/2024 4:24 AM [facility] Gram Stain No organisms seen 025 4:24 AM [facility] Other PERITONEAL FLUID / Unknown Collection / Unknown 11/06/2024 8:15 PM [facility] 11/06/2024 8:32 PM [facility] Narrative [facility] - 11/10/2024 4:24 AM [facility] This isolate is a multidrug resistant organism (MDRO). MDROs are resistant to 3 or more classes of antibiotics. Contact Precautions required. Infectious Diseases consult recommended. Organism Antibiotic Method Susceptibility Achromobacter species Amikacin ADOLPH >=64 ug/mL: Resistant Achromobacter species Cefepime ADOLPH 32 ug/mL: Resistant Achromobacter species Ceftazidime ADOLPH 4 ug/mL: Susceptible Achromobacter species Ciprofloxacin ADOLPH 2 ug/mL: Intermediate Achromobacter species Gentamicin ADOLPH >=16 ug/mL: Resistant Achromobacter species Meropenem ADOLPH <=0.25 ug/mL: Susceptible Achromobacter species Piperacillin-tazobactam ADOLPH 64 ug/mL: Intermediate Achromobacter species Tobramycin ADOLPH 8 ug/mL: Intermediate Achromobacter species Trimethoprim-sulfa methoxazol e ADOLPH <=20 ug/mL: Susceptible Homer Hallman MD LAB - MICROBIOLOGY O RDERABLES [facility] [address] [place], [address] [phone] * Paracentesis (11/06/2024 6:28 PM [facility]) Narrative Homer Hallman MD - 11/06/2024 6:28 PM [facility] Homer Hallman MD 11/06/2024 8:11 PM Paracentesis Date/Time: 11/06/2024 6:28 PM Performed by: Homer Hallman MD Authorized by: Homer Hallman MD Consent: Consent obtained: Verbal Consent given by: Patient Risks, benefits, and alternatives were discussed: yes Risks discussed: Bleeding, bowel perforation, infection and pain Alternatives discussed: No treatment Pre-procedure details: Procedure purpose: Diagnostic Anesthesia: Anesthesia method: Local infiltration Local anesthetic: Lidocaine 1% WITH epi Procedure details: Needle gauge: 18 Puncture site: R lower quadrant Fluid removed amount: 20 Fluid appearance: Yellow and cloudy Dressinx4 sterile gauze Post-procedure details: Procedure completion: Tolerated well, no immediate complications Homer Hallman MD PROCEDURE/MINOR SURG ICAL ORDERABLES * SARS-COV-2 (COVID-19)+INFLU A+B PCR RAPID (11/06/2024 3:40 PM [facility]) COVID-19 PCR Not detected Not detected 11/06/19 5:10 PM [facility] Influenza A Rapid JOHNNIE Not Detected Not Detected 11/06/2024 5:10 PM [facility] Influenza B JOHNNIE Rapid Not Detected Not Detected 11/06/2024 5:10 PM [facility] Microbiology SPECIMEN FROM NASOPHARYNGEAL STRUCTURE / Unknown Collection / Unknown 11/06/2024 3:40 PM [facility] 11/06/2024 4:29 PM [facility] Narrative [facility] - 11/06/2024 5:10 PM [facility] Influenza assay performed by [employer]. Results do not exclude the possibility of a mixed viral infection. NOTE: Detecting and identifying specific viral nucleic acids from individuals exhibiting signs and symptoms of respiratory infection aids in the diagnosis of respiratory infection, if used in conjunction with other clinical and laboratory findings. The results of this test should not be used as the sole basis for diagnosis, treatment, or patient management decisions. This nucleic acid amplification assay performance was validated by [facility]. This test has been authorized by the Food and Drug administration (FDA)under an Emergency Use Authorization (EUA). This test has been validated in accordance with the FDA's guidance document Policy for Diagnostic Testing in Laboratories Certified to perform High Complexity Testing under CLIA prior to Emergency Use Authorization for Coronavirus Disease-2019 during the Public Health Emergency issued on January 03, 2020. FDA independent review of this validation is pending. This test is only authorized for the duration of time the declaration that circumstances exist justifying the authorization of emergency use of in vitro diagnostic tests for detection of SARS-CoV-2 virus and/or diagnosis of COVID-19 infection under section 564(b)(1) of the Act, 21 U.S.C 360bbb-3 (b)(1), unless the authorization is terminated or revoked sooner. Fact Sheets for this EUA assay are available upon request. Homer Hallman MD LAB - MICROBIOLOGY O RDERABLES [facility] [address] [place] [address], [facility] [phone] * XR Chest 1Vw Portable (11/06/2024 2:29 PM [facility]) Only the most recent of2 resultswithin the time period is included. Anatomical Region Laterality Modality Chest Digital Radiogra phy 11/06/2024 2:35 PM [facility] Narrative 11/06/2024 2:46 PM [facility] PROCEDURE: XR CHEST 1VW PORTABLE, DATE/TIME OF EXAM: 11/06/2024 2:30 PM, LOCATION [facility] INDICATION: G93.40: Encephalopathy, unspecified type ADDITIONAL CLINICAL INFORMATION: Ordering Provider Reason For Exam: ams COMPARISON: Chest x-ray 10/23/2024 TECHNIQUE: Frontal radiograph of the chest. FINDINGS/IMPRESSION: Lines/Tubes/Hardware: *Right IJ approach chest port in place with tip superimposing the distal SVC. *Cardiac device in place with leads superimposing the right atrium and right ventricle.' Small left pleural effusion with lower lung atelectasis or airspace disease, improved. Right lung is clear. No pneumothorax. Report dictated by Jonathan Torres MD, ([employer]). I, Christophe Rahman MD have personally reviewed and interpreted this examination/study. > Interpreting Provider: Christophe Rahman MD on 11/06/2024 2:46 PM Procedure Note Christophe Rahman MD - 11/06/2024 PROCEDURE: XR CHEST 1VW PORTABLE, DATE/TIME OF EXAM: 11/06/2024 2:30 PM, LOCATION [facility] INDICATION: G93.40: Encephalopathy, unspecified type ADDITIONAL CLINICAL INFORMATION: Ordering Provider Reason For Exam: ams COMPARISON: Chest x-ray 10/23/2024 TECHNIQUE: Frontal radiograph of the chest. FINDINGS/IMPRESSION: Lines/Tubes/Hardware: *Right IJ approach chest port in place with tip superimposing the distal SVC. *Cardiac device in place with leads superimposing the right atrium and right ventricle.' Small left pleural effusion with lower lung atelectasis or airspace disease, improved. Right lung is clear. No pneumothorax. Report dictated by Jonathan Torres MD, ([employer]). I, Christophe Rahman MD have personally reviewed and interpreted this examination/study. > Interpreting Provider: Christophe Rahman MD on 11/06/2024 2:46 PM Homer Hallman MD DIAGNOSTIC IMAGING O RDERABLES * LIPASE BLOOD (11/06/2024 12:54 PM [facility]) [facility] Lipase 16 8 - 78 U/L 11/06/2024 1:[address] [facility] Blood BLOOD SPECIMEN / Unknown Venipuncture / Unknown 11/06/2024 12:54 PM [facility] 11/06/2024 1:07 PM [facility] Narrative [facility] - 11/06/2024 1:37 PM [facility] Lipase results from the [employer] Al[employer] analyzer may not be comparable with other methodologies. Prais Quintero [employer] LAB - PROCESS ANALYST RY ORDERABLES [address] [address], [facility] [phone] * (ABNORMAL) CBC W/O DIFFERENTIAL (10/28/2024 6:14 AM [facility]) Only the most recent of5 resultswithin the time period is included. [facility] WBC 3.0(L) 4.0 - 10.7 x10E9/L 10/28/2024 6:[address] [facility] RBC Count 2.87(L) 4.30 - 5.80 x10E12/L 10/28/2024 6:[address] [facility] Hemoglobin 8.9(L) 13.3 - 17.5 g/dL 10/28/2024 6:[address] [facility] Hematocrit 26.5(L) 38.7 - 51.1 % 10/28/2024 6:[address] [facility] MCV 92.3 80.0 - 98.0 fL 10/28/2024 6:[address] [facility] MCH 31.0 26.7 - 33.6 pg 10/28/2024 6:[address] [facility] MCHC 33.6 31.7 - 36.3 g/dL 10/28/2024 6:[address] [facility] RDW-CV 16.5(H) 11.3 - 14.8 % 10/28/2024 6:[address] [facility] Platelet Count 109(L) 150 - 420 x10E9/L 10/28/2024 6:[address] [facility] MPV 10.9 7.8 - 11.4 fL 10/28/2024 6:[address] [facility] Blood BLOOD SPECIMEN / Unknown Lab Venipuncture / Unknown 10/28/2024 6:14 AM [facility] 10/28/2024 6:39 AM [facility] Rigoberto Mcclain MD LAB - HEMATOLOGY ORD ERABLES [facility] [address] [place] [phone], [facility] [phone] * (ABNORMAL) VITAMIN D 1,25 DIHYDROXY (10/26/2024 4:00 AM [facility]) Vitamin D, 1,25 Dihydroxy 18.8(L) 19.9 - 79.3 pg/mL 10/29/2024 12:19 AM [facility] [employer] ([facility]) Comment: INTERPRETIVE INFORMATION: Vitamin D, 1,25-Dihydroxy This test is primarily indicated during patient evaluation for hypercalcemia and renal failure. A normal result does not rule out Vitamin D deficiency. The recommended test for diagnosing Vitamin D deficiency is Vitamin D 25-hydroxy. Performed By: [facility] [address] [place] [id number] Dramatic Critic: Armando Lowe MD, PhD CLIA Number: [id number] Blood BLOOD SPECIMEN / Unknown Venipuncture / Unknown 10/26/2024 4:00 AM [facility] 10/26/2024 4:10 AM [facility] Shravan Jessica MD LAB - CHEMISTRY OR DERABLES [facility] [employer] ([facility]) [address] [place] [address], [facility] * SODIUM URINE RANDOM (10/25/2024 10:40 AM [facility]) Sodium Urine 30 Not Established mmol/L 10/25/2024 11:05 AM [facility] Urine URINE SPECIMEN OBTAINED BY CLEAN CATCH PROCEDURE / Unknown Collection / Unknown 10/25/2024 10:40 AM [facility] 10/25/2024 10:47 AM [facility] Shravan Jessica MD LAB - URINE CHEMIS TRY ORDERABLES [facility] [address] [place] [address], [facility] [phone] * US Abdomen Ltd W Comp Doppler (10/25/2024 8:20 AM [facility]) Anatomical Region Laterality Modality Abdomen Ultrasound 10/25/2024 12:3 6 PM [facility] Impressions 10/27/2024 1:43 AM [facility] IMPRESSION: 1.Hepatic cirrhosis with sequela of portal hypertension including moderate to large volume ascites. 2.Mildly decreased velocity of flow within the main portal vein (13.9 cm/s). No portal vein thrombosis. Otherwise, normal hepatic Doppler evaluation. 3.No evidence of cholelithiasis or acute cholecystitis. > Dictated by Tom Barreto DO,(osteopathic resident). I, Lalo St MD have personally reviewed and interpreted this examination/study. > Interpreting Provider: Lalo St MD on 10/27/2024 1:43 AM Narrative 10/27/2024 1:43 AM [facility] PROCEDURE: US ABDOMEN LTD W COMP DOPPLER, DATE/TIME OF EXAM: 10/25/2024 8:54 AM, LOCATION [facility] INDICATION: K76.82: Hepatic encephalopathy (HCC) Ordering Provider Reason For Exam: r/o PVT COMPARISON: None. FINDINGS: Abdomen: The liver has a coarse echotexture and nodular surface, consistent with cirrhosis. No discrete hepatic mass or intrahepatic biliary dilatation is seen. No gallstones or pericholecystic fluid is seen. The gallbladder is decompressed, the gallbladder wall measures 0.4 cm, likely related to decompressed state and chronic edema related to cirrhosis. Sonographic Kauffman's sign is negative. The common bile duct is nondilated, measuring 2.8 mm. The right kidney measures 10.0 x 3.7 x 4.0 cm. Limited views of the right kidney reveal no evidence of hydronephrosis. An echogenic focus compatible with a nonobstructing renal calculus is present within the inferior pole of the right kidney. The spleen measures 11.0 cm in length and contains multiple calcified granulomas. The visible pancreas is normal in echogenicity. Moderate to large volume of ascites is present within all 4 abdominal quadrants. Liver Doppler: Color and spectral Doppler evaluation demonstrates patency of the hepatic veins with appropriate flow direction and multiphasic waveforms. The main, left, and right portal veins appear patent with normal hepatopetal flow. The main portal vein demonstrates a normal phasic waveform and velocity measures 13.9 cm/s. The proper hepatic artery is patent and demonstrates a normal arterial waveform with brisk systolic upstroke and antegrade flow. Resistive index in the proper hepatic artery measures 0.78. Procedure Note Lalo St MD - 10/27/2024 PROCEDURE: US ABDOMEN LTD W COMP DOPPLER, DATE/TIME OF EXAM:10/25/2024 8:54 AM, LOCATION [facility] INDICATION: K76.82: Hepatic encephalopathy (HCC) Ordering Provider Reason For Exam: r/o PVT COMPARISON: None. FINDINGS: Abdomen: The liver has a coarse echotexture and nodular surface, consistent with cirrhosis. No discrete hepatic mass or intrahepatic biliary dilatationis seen. No gallstones or pericholecystic fluid is seen. The gallbladder is decompressed, the gallbladder wall measures 0.4 cm, likely related to decompressed state and chronic edema related to cirrhosis. Sonographic Kauffman's sign is negative. The common bile duct is nondilated, measuring 2.8 mm. The right kidney measures 10.0 x 3.7 x 4.0 cm. Limited views of theright kidney reveal no evidence of hydronephrosis. An echogenic focuscompatible with a nonobstructing renal calculus is present within the inferior poleof the right kidney. The spleen measures 11.0 cm in length and contains multiple calcified granulomas. The visible pancreas is normal in echogenicity. Moderate to large volume of ascites is present within all4 abdominal quadrants. Liver Doppler: Color and spectral Doppler evaluation demonstrates patency of thehepatic veins with appropriate flow direction and multiphasic waveforms. The main, left, and right portal veins appear patent with normal hepatopetal flow. The main portal vein demonstrates a normal phasic waveform and velocity measures 13.9 cm/s. The proper hepatic artery is patent and demonstrates a normal arterial waveform with brisk systolic upstroke and antegrade flow. Resistiveindex in the proper hepatic artery measures 0.78. IMPRESSION: 1.Hepatic cirrhosis with sequela of portal hypertension includingmoderate to large volume ascites. 2.Mildly decreased velocity of flow within the main portal vein (13.9 cm/s). No portal vein thrombosis. Otherwise, normal hepatic Doppler evaluation. 3.No evidence of cholelithiasis or acute cholecystitis. > Dictated by Tom Barreto DO,(osteopathic resident). I, Lalo St MD have personally reviewed and interpreted this examination/study. > Interpreting Provider: Lalo St MD on 10/27/2024 1:43 AM Rigoberto Mcclain MD ORDERABLES * PTH INTACT W/O CALCIUM (10/25/2024 4:54 AM [facility]) [facility] PTH Intact 13.2 8.0 - 77.0 pg/mL 10/25/2024 6:19 AM [facility] Blood BLOOD SPECIMEN / Unknown Lab Venipuncture / Unknown 10/25/2024 4:54 AM [facility] 10/25/2024 5:46 AM [facility] Rigoberto Mcclain MD LAB - CHEMISTRY [facility] Organization Address City/State/ZIP Co de Phone Number [address] [address], [facility] [phone] * (ABNORMAL) PTH RELATED PEPTIDE (10/25/2024 4:54 AM [facility]) PTH Related Peptide 3.1(H) 0.0 - 2.3 pmol/L 11/03/2024 1:05 PM [facility] ([facility]) Comment: INTERPRETIVE INFORMATION: Parathyroid Hormone-Related Peptide This test was developed and its performance characteristics determined by [facility]. It has not been cleared or approved by the US Food and Drug Administration. This test was performed in a CLIA certified laboratory and is intended for clinical purposes. Performed By: [address] [address] Dramatic Critic: Armando Lowe MD, PhD CLIA Number: [id number] Blood BLOOD SPECIMEN / Unknown Lab Venipuncture / Unknown 10/25/2024 4:54 AM [facility] 10/25/2024 5:29 AM [facility] Rigoberto Mcclain MD LAB - CHEMISTRY [facility] Performing Organization Address City/[facility]/ZIP Co de Phone Number [facility]) [address] [place] [address] * (ABNORMAL) VITAMIN D 25-HYDROXY (10/25/2024 4:54 AM [facility]) Pathologist [facility] Vitamin D, 25 Hydroxy 27.0(L) 30.0 - 80.0 ng/mL 10/25/2024 6:33 AM [facility] Comment: The recommendations for 25-Hydroxy Vitamin D clinical decision points are as follows: Deficient: <20.0 ng/mL Insufficient: 20.0 - 29.9 ng/mL Sufficient: 30.0 - 100.0 ng/mL Potential Toxicity: >100 ng/mL Reference: The Endocrine Society Clinical Practice Guidelines. 2011 If the 25-Hydroxy Vitamin D results are inconsitent with clinical evidence, it is recommended that follow-up testing using a method such as LC/MS/MS be performed to confirm the result. Blood BLOOD SPECIMEN / Unknown Lab Venipuncture / Unknown 10/25/2024 4:54 AM [facility] 10/25/2024 5:29 AM [facility] Rigoberto Mcclain MD LAB - CHEMISTRY [facility] [address] [address], [facility] [phone] * LDH BLOOD (10/25/2024 4:54 AM [facility]) Pathologist [facility] LDH Total 203 125 - 243 Units/L 10/25/2024 6:[address] [facility] Blood BLOOD SPECIMEN / Unknown Lab Venipuncture / Unknown 10/25/2024 4:54 AM [facility] 10/25/2024 5:29 AM [facility] Rigoberto Mcclain MD LAB - CHEMISTRY JOHN PAUL RIVAS Performing Organization Address City/[facility]/ZIP Co de Phone Number [facility] [address] [place] [phone], [facility] [phone] * (ABNORMAL) CALCIUM IONIZED WHOLE BLOOD (10/24/2024 8:47 AM [facility]) [facility] Calcium Ionized 1.54 mmol/L 10/24/2024 9:[address] [facility] pH 7.41 7.35 - 7.45 pH 10/24/2024 9:[address] [facility] Ionized Calcium pH Adjusted 1.55(H) 1.19 - 1.34 mmol/L 10/24/2024 9:[address] [facility] Blood BLOOD SPECIMEN / Unknown Lab Venipuncture / Unknown 10/24/2024 8:47 AM [facility] 10/24/2024 8:58 AM [facility] Rigoberto Mcclain MD LAB - CHEMISTRY JOHN PAUL RIVAS Performing Organization Address City/[facility]/ZIP Co de Phone Number [address] [address], [facility] [phone] * (ABNORMAL) HEMOGLOBIN A1C (10/24/2024 8:47 AM [facility]) [facility] Hemoglobin A1c 7.9(H) <=5.6 % 10/24/2024 12:[address] [facility] Estimated Average Glucose 180 mg/dL 10/24/2024 12:[address] [facility] Comment: HbA1c Interpretation: Normal : < 5.7% Pre-diabetes: 5.7-6.4% Diabetes: Equal to or greater than 6.5% Test results diagnostic of diabetes should be repeated for confirmation. Treatment target values recommended by ADA and other clinical organizations should be used to evaluate metabolic control in patients. Reference: [place] [employer], Standards of Care in Diabetes -2020 In patients 70 years and older consider HbA1c target range of 7.0-7.5% (Reference: Armen López et al. ZAKDA. 2012) The Sebia assay for the measurement of HbA1c is a National Glycohemoglobin Standardization Program (NGSP) certified method. Blood BLOOD SPECIMEN / Unknown Lab Venipuncture / Unknown 10/24/2024 8:47 AM [facility] 10/24/2024 9:01 AM [facility] Rigoberto Mcclain MD LAB - CHEMISTRY JOHN PAUL RIVAS Performing Organization Address City/[facility]/ZIP Co de Phone Number [address] [address], [place] [phone] * LACTIC ACID BLOOD (10/24/2024 8:47 AM [facility]) Lactic Acid-Stat 2.0 <=2.0 mmol/L 10/24/2024 9:33 AM [facility] Blood BLOOD SPECIMEN / Unknown Lab Venipuncture / Unknown 10/24/2024 8:47 AM [facility] 10/24/2024 9:02 AM [facility] Rigoberto Mcclain MD LAB - CHEMISTRY JOHN PAUL RIVAS Performing Organization Address City/[facility]/ZIP Co de Phone Number [address] [address], [place] [phone] * (ABNORMAL) BLOOD GASES REINA + COOX PANEL (10/23/2024 6:25 PM [facility]) pH Venous 7.45(H) 7.32 - 7.42 pH 10/23/2024 6:44 PM [facility] pO2 Venous 86(H) 35 - 40 mmHg 10/23/2024 6:44 PM [facility] pCO2 Venous 23(L) 40 - 50 mmHg 10/23/2024 6:44 PM [facility] HCO3 Venous 16.0(L) 20 - 30 mmol/L 10/23/2024 6:[address] [facility] Base Excess Venous -6.8(L) -2.0 - 2.0 mmol/L 10/23/2024 6:[address] [facility] Oxyhemoglobin Venous 96.1 % 10/05 6:[address] [facility] Deoxyhemoglobin (HHB) Venous % 2.1 % 10/23/2024 6:[address] [facility] Methemoglobin 0.8 0.0 - 2.0 % 10/23/2024 6:[address] [facility] Carboxyhemoglobin 1.0 0.0 - 2.0 % 2023 6:[address] [facility] O2 Content Venous 12.4 Interpret within clinical context ml/dL 10/23/2024 6:[address] [facility] Hemoglobin by COOX 9.1(L) 12.0 - 17.6 g/dL 10/23/2024 6:[address] [facility] O2 Saturation Venous 98 >=70 % 10/05 6:[address] [facility] FI O2 Mixed Venous 21.0 % 2023 6:[address] [facility] Blood BLOOD SPECIMEN / Unknown Lab Venipuncture / Unknown 10/23/2024 6:25 PM [facility] 10/23/2024 6:36 PM [facility] - 10/23/2024 6:44 PM [facility] Carboxyhemoglobin Normal Concentration: Non-smokers: 0-2%; Smokers: 0-9%; Toxic: >20% Rigoberto Mcclain MD LAB - BLOOD GASES OR DERABLES [facility] [address] [place] [address], [facility] [phone] * (ABNORMAL) LACTIC ACID BLOOD REFLEX TO REPEAT (10/23/2024 6:11 PM [facility]) Only the most recent of3 resultswithin the time period is included. Lactic Acid-Stat 7.9(HH) <=2.0 mmol/L 10/23/2024 6:[address] [facility] Blood BLOOD SPECIMEN / Unknown Lab Venipuncture / Unknown 10/23/2024 6:11 PM [facility] 10/23/2024 6:18 PM [facility] Paris Quintero CLOTH FOLDER MACHINE-TAKE DOWN SORTER LAB - PROCESS ANALYST RY ORDERABLES [facility] [address] [place] [address], [facility] [phone] * Paracentesis (10/23/2024 4:59 PM [facility]) Narrative Muna Waller MD - 10/23/2024 4:59 PM [facility] Elma Deutsch MD 10/23/2024 5:01 PM Paracentesis Date/Time: 10/23/2024 4:59 PM Performed by: Elma Deutsch MD Authorized by: Muna Waller MD Consent: Consent obtained: Verbal Consent given by: Patient Pre-procedure details: Procedure purpose: Diagnostic Preparation: Patient was prepped and draped in usual sterile fashion Anesthesia: Anesthesia method: Local infiltration Local anesthetic: Lidocaine 1% w/o epi Procedure details: Needle gauge: 18 Ultrasound guidance: yes Fluid removed amount: 50 Fluid appearance: Yellow [id number] sterile gauze Post-procedure details: Procedure completion: Tolerated well, no immediate complications Muna Waller MD PROCEDURE/MINOR SURG ICAL ORDERABLES from Last 3 Months Additional Health Concerns Infection Onset Date Last Indicated MDRO 11/06/2024 11/06/2024 Advance Directives * LIMITED RESUSCITATION-PRIOR AND AFTER ARREST (Latest Code Status on File) Date Activated Date Inactivated Comments 12/03/2024 5:50 PM 12/08/2024 4:08 PM Question Answer Comments Limited Resuscitation: No Chest Compress ionNo Intubation, No Invasive VentilationNo Cardioversion, No Defibrilation, No External or Internal Pacemaker * LIMITED RESUSCITATION-PRIOR AND AFTER ARREST Date Activated Date Inactivated Comments 11/06/2024 7:57 PM 11/13/2024 6:16 PM Question Answer Comments Limited Resuscitation: No Chest Compress ionNo Intubation, No Invasive VentilationNo Cardioversion, No Defibrilation, No External or Internal Pacemaker * Full Code Date Activated Date Inactivated Comments 10/23/2024 5:30 PM 10/28/2024 4:21 PM * Full Code Date Activated Date Inactivated Comments 09/28/2024 2:40 PM 09/30/2024 1:51 PM * Full Code Date Activated Date Inactivated Comments 08/30/2024 9:50 PM 09/02/2024 2:53 PM Care Teams Strap Setter Relationship Specialty Start Date End Date Moses Conn MD [address] [place] [id number] PCP - General 01/04/23
--- OUTSIDE RECORDS SUMMARY | 2024-12-22 14:36 | XMS_ITS ---
Author Organization [facility] Address [address] [place] [address] Care Team Providers Care Tipple Operator Name Role Phone Moses Conn MD Primary Care Provider [phone] Anjelica Fish MD Unavailable [phone] Active Problems Problem Noted Date Diagnosed Date [...] same Paroxysmal atrial fibrillation (CMS/HCC) 021 Overview (12/18/2024): Last Assessment & Plan: [...] monitoring Diabetes mellitus type 2 in nonobese (CMS/[facility]) 0 05/15/2021 Essential hypertension 05/15/2021 Bradycardia 05/15/2021 [...] which is functioning is being monitored Anemia Current Treatment and Therapy Plans No current plan information found. Past Treatment and Therapy Plans No past plan information found. Lifetime Dose Tracking * Chemical Lifetime Dose Automatic Entry Manual Entr y Air kerma at the reference point (Ka,r) 33 mGy 0 mGy 33 mGy Resolved Problems Problem Noted Date Diagnosed Date Resolved Date Bradycardia 05/15/2021 08/10/2023
--- OUTSIDE RECORDS SUMMARY | 2024-12-22 14:36 | XMS_ITS | Referral Summary ---
Author Organization [facility] Address [address] [place] [address] Care Team Providers Care Client Service Representative Name Role Phone Moses Conn MD Primary Care Provider [phone] Source Comments [facility],non-owned Affiliates and Associated Physician Practices is amultiple site organization consisting of ambulatory clinics and hospital sitesin [place], [place], [place] and [place]. This disclosure is being madepursuant to the Care Everywhere program and may not contain all information available regarding this patient. Last updated 18.[email or web address] Encounters Date Type Department Care Team Description 12/09/2024 Transitional Care [facility] CARE COORDINATION [address] [place] [address] Lesly Acosta, RN Transitions Of Care 12/03/2024 1:55 PM ACTIVITIES COUNSELOR - 12/08/2024 2:44 PM ACTIVITIES COUNSELOR Hospital Encounter [facility] 7S ACUTE [address] [place] [address] Julio Torres MD Demars, MD Tai Carroll Alex S, MD Shmais, Manar A, MD Qureshi, Kamran, MD Emergency Medicine Discharge Disposition: Home Health Care Svc 12/03/2024 Travel 12/02/2024 Telephone [facility] - [place] [address] [facility], [place] [address] Luana Alejo, OLAF Cirrhosis (decompensated) 11/14/2024 Transitional Care [facility] CARE COORDINATION [address] [place] [phone] Lesly Acosta, OLAF Transitions Of Care 11/06/2024 2:03 PM ACTIVITIES COUNSELOR - 11/13/2024 4:50 PM ACTIVITIES COUNSELOR Hospital Encounter [facility] 8S ACUTE [address] [place] [address] Homer Hallman MD Befeler, Alex S, MD Elbeshbeshy, Sly Morrissey MD Gastroenterology Discharge Disposition: Home or Self Care 11/06/2024 Travel 11/06/2024 10:00 AM ACTIVITIES COUNSELOR Office Visit [facility] - [place] [address] [place] [phone] Rigoberto Mcclain MD Decompensated hepatic cirrhosis (HCC) (Primary Dx); Portal hypertension (HCC); Other ascites; Hepatic encephalopathy (HCC) 10/31/2024 Travel 10/31/2024 9:30 AM ACTIVITIES COUNSELOR - 10/31/2024 11:00 AM ACTIVITIES COUNSELOR Surgery [facility] ENDOSCOPY [address] [place] [address] Procedure, Nursing G_I GASTRIC MOTILITY STUDY 10/31/2024 9:23 AM ACTIVITIES COUNSELOR - 10/31/2024 10:20 AM ACTIVITIES COUNSELOR Hospital Encounter [facility] OP [address] [place] [address] Didier Lei MD Surgery General Discharge Disposition: Home or Self Care 10/23/2024 2:22 PM ACTIVITIES COUNSELOR - 10/28/2024 3:15 PM ACTIVITIES COUNSELOR Hospital Encounter [facility] 7N ACUTE [address] [place] [address] Muna Waller MD Agbim, Uchenna A, MD Qureshi, Kamran, MD Gastroenterology Discharge Disposition: Home or Self Care 10/23/2024 Travel 10/23/2024 Telephone [facility] - Nephrology [address] [place] [phone] Rigoberto Mcclain MD Follow-up; Med Question 09/28/2024 11:35 AM ACTIVITIES COUNSELOR - 09/30/2024 12:45 PM ACTIVITIES COUNSELOR Hospital Encounter [facility] 7S ACUTE [address] [place] [address] Carlos Mcclain, Didier Rowland MD SynFrancy MD Gastroenterology Discharge Disposition: Home or Self Care 09/28/2024 Travel 09/24/2024 Transitional Care [facility] CARE COORDINATION [address] [place] [address] Lesly Acosta, RN Transitions Of Care from Last 3 Months Allergies Active Allergy [...] fluticasone propionate (Flonase) 50 MCG/ACT nasal spray [place] 1 (one) spray into the nose once [...] 05/06 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 Not hard at all 11/08/2024 [facility] [place] of Occupat ional Health - Occupational Stress [...] any time in the past 12 m [facility], were you homeless or living in a detention (including now)? No 11/08/2024 Sex and Gender Information Value Date Recorded Sex Assigned at Not on file Gender Identity Not on file Sexual Orientation Not on file Last Filed Vital Signs Vital Sign Reading Time Taken Comments Blood Pressure 135/61 12/08/2024 12:00 PM ACTIVITIES COUNSELOR Pulse 75 12/08/2024 12:00 PM ACTIVITIES COUNSELOR Temperature 36.5 C (97.7 F) 12/08/2024 12:00 PM ACTIVITIES COUNSELOR Respiratory Rate 17 12/08/2024 12:00 PM ACTIVITIES COUNSELOR Oxygen Saturation 98% 12/08/2024 12:00 PM ACTIVITIES COUNSELOR Inhaled Oxygen Concentration - - Weight 48 kg (105 lb 12.8 oz) 12/05/2024 6:16 PM ACTIVITIES COUNSELOR Height 163 cm (5' 4.17 ) 12/04/2024 8:31 PM ACTIVITIES COUNSELOR Body Mass Index 18.06 12/04/2024 8:31 PM ACTIVITIES COUNSELOR Functional Status Functional Status Response Date of Assess ment Is person deaf or have serious hearing difficult y? No 12/05/2024 Is person blind or have serious difficulty seein g? No 12/05/2024 Does person have serious dif ficulty walking/climbing stairs? Yes 12/05/2024 Does person have difficulty dressing/bathing? Ye s 12/05/2024 Does person have difficulty doing errands alone? Yes 12/05/2024 Cognitive Status Response Date of Assessm ent Does person have difficulty concentrating/remembering/making decisions? Yes 12/05/2024 Plan of Treatment Upcoming Encounters Date Type Department Care Team (Late st Contact Info) Description 01/27/2025 2:00 PM CDT Office Visit [facility] - [address] [place] [address], [facility] [place] [address] [place] [address] [place] [phone] Goals Goal Patient Goal Type Associated Problems Recent Progress Patient-Stated? Author Medication Management General On track( 025 10:45 AM ACTIVITIES COUNSELOR) Kandis Dejesus, RN Note: Expected end date: ongoing Interventions: Take all medications as prescribed Let your doctor know right away about any changes in your medications Make sure to request a refill of your medication at least one week prior to your last dose Procedures Procedure Name Priority Date/Time Associated Diagnosis Comments GLUCOSE - POINT OF CARE Routine 12/08/2024 12:03 PM ACTIVITIES COUNSELOR GLUCOSE - POINT OF CARE Routine 12/08/2024 7:56 AM ACTIVITIES COUNSELOR PHOSPHORUS BLOOD Routine 12/08/2024 5:06 AM ACTIVITIES COUNSELOR MAGNESIUM BLOOD Routine 12/08/2024 5:06 AM ACTIVITIES COUNSELOR COMPREHENSIVE METABOLIC PANEL AM Draw 12/08/2024 5:06 AM ACTIVITIES COUNSELOR CBC W AUTO DIFFERENTIAL AM Draw 12/08/2024 5:06 AM ACTIVITIES COUNSELOR GLUCOSE - POINT OF CARE Routine 12/08/2024 4:51 AM ACTIVITIES COUNSELOR GLUCOSE - POINT OF CARE Routine 12/07/2024 11:59 PM ACTIVITIES COUNSELOR GLUCOSE - POINT OF CARE Routine 12/07/2024 8:41 PM ACTIVITIES COUNSELOR GLUCOSE - POINT OF CARE Routine 12/07/2024 4:34 PM ACTIVITIES COUNSELOR GLUCOSE - POINT OF CARE Routine 12/07/2024 11:56 AM ACTIVITIES COUNSELOR GLUCOSE - POINT OF CARE Routine 12/07/2024 8:40 AM ACTIVITIES COUNSELOR PHOSPHORUS BLOOD Routine 12/07/2024 5:15 AM ACTIVITIES COUNSELOR MAGNESIUM BLOOD Routine 12/07/2024 5:15 AM ACTIVITIES COUNSELOR COMPREHENSIVE METABOLIC PANEL AM Draw 12/07/2024 5:15 AM ACTIVITIES COUNSELOR CBC W AUTO DIFFERENTIAL AM Draw 12/07/2024 5:15 AM ACTIVITIES COUNSELOR GLUCOSE - POINT OF CARE Routine 12/07/2024 5:09 AM ACTIVITIES COUNSELOR GLUCOSE - POINT OF CARE Routine 12/06/2024 11:48 PM ACTIVITIES COUNSELOR GLUCOSE - POINT OF CARE Routine 12/06/2024 7:57 PM ACTIVITIES COUNSELOR GLUCOSE - POINT OF CARE Routine 12/06/2024 4:45 PM ACTIVITIES COUNSELOR GLUCOSE - POINT OF CARE Routine 12/06/2024 12:29 PM ACTIVITIES COUNSELOR GLUCOSE - POINT OF CARE Routine 12/06/2024 8:17 AM ACTIVITIES COUNSELOR PHOSPHORUS BLOOD Routine 12/06/2024 5:39 AM ACTIVITIES COUNSELOR MAGNESIUM BLOOD Routine 12/06/2024 5:39 AM ACTIVITIES COUNSELOR COMPREHENSIVE METABOLIC PANEL AM Draw 12/06/2024 5:39 AM ACTIVITIES COUNSELOR CBC W AUTO DIFFERENTIAL AM Draw 12/06/2024 5:39 AM ACTIVITIES COUNSELOR INSULIN FREE + TOTAL Routine 12/06/2024 5:39 AM ACTIVITIES COUNSELOR INSULIN LIKE GROWTH FACTOR 2 Routine 12/06/2024 5:39 AM ACTIVITIES COUNSELOR IGF BINDING PROTEIN 1 Routine 12/06/2024 5:39 AM ACTIVITIES COUNSELOR HYDROXYBUTYRATE BETA Routine 12/06/2024 5:39 AM ACTIVITIES COUNSELOR CORTISOL BLOOD AM Timed 12/06/2024 5:3 9 AM ACTIVITIES COUNSELOR PROINSULIN Routine 12/06/2024 5:39 AM ACTIVITIES COUNSELOR C-PEPTIDE Routine 12/06/2024 5:39 AM ACTIVITIES COUNSELOR GLUCOSE - POINT OF CARE Routine 12/06/2024 4:14 AM ACTIVITIES COUNSELOR GLUCOSE - POINT OF CARE Routine 12/05/2024 11:51 PM ACTIVITIES COUNSELOR GLUCOSE - POINT OF CARE Routine 12/05/2024 8:38 PM ACTIVITIES COUNSELOR GLUCOSE - POINT OF CARE Routine 12/05/2024 3:59 PM ACTIVITIES COUNSELOR GLUCOSE - POINT OF CARE Routine 12/05/2024 12:17 PM ACTIVITIES COUNSELOR C-PEPTIDE Routine 12/05/2024 10:08 AM ACTIVITIES COUNSELOR PROINSULIN AM Draw 12/05/2024 10:07 AM ACTIVITIES COUNSELOR INSULIN FREE + TOTAL AM Draw 12/05/2024 10:07 AM ACTIVITIES COUNSELOR GLUCOSE - POINT OF CARE Routine 12/05/2024 8:20 AM ACTIVITIES COUNSELOR GLUCOSE - POINT OF CARE Routine 12/05/2024 7:48 AM ACTIVITIES COUNSELOR GLUCOSE - POINT OF CARE Routine 12/05/2024 7:38 AM ACTIVITIES COUNSELOR PHOSPHORUS BLOOD Routine 12/05/2024 6:32 AM ACTIVITIES COUNSELOR MAGNESIUM BLOOD Routine 12/05/2024 6:32 AM ACTIVITIES COUNSELOR COMPREHENSIVE METABOLIC PANEL AM Draw 12/05/2024 6:32 AM ACTIVITIES COUNSELOR CBC W AUTO DIFFERENTIAL AM Draw 12/05/2024 6:32 AM ACTIVITIES COUNSELOR GLUCOSE - POINT OF CARE Routine 12/05/2024 3:51 AM ACTIVITIES COUNSELOR GLUCOSE - POINT OF CARE Routine 12/05/2024 3:39 AM ACTIVITIES COUNSELOR GLUCOSE - POINT OF CARE Routine 12/05/2024 3:32 AM ACTIVITIES COUNSELOR GLUCOSE - POINT OF CARE Routine 12/05/2024 3:27 AM ACTIVITIES COUNSELOR GLUCOSE - POINT OF CARE Routine 12/05/2024 3:17 AM ACTIVITIES COUNSELOR GLUCOSE - POINT OF CARE Routine 12/05/2024 3:05 AM ACTIVITIES COUNSELOR GLUCOSE - POINT OF CARE Routine 12/04/2024 7:42 PM ACTIVITIES COUNSELOR GLUCOSE - POINT OF CARE Routine 12/04/2024 6:53 PM ACTIVITIES COUNSELOR GLUCOSE - POINT OF CARE Routine 12/04/2024 6:30 PM ACTIVITIES COUNSELOR GLUCOSE - POINT OF CARE Routine 12/04/2024 6:09 PM ACTIVITIES COUNSELOR GLUCOSE - POINT OF CARE Routine 12/04/2024 5:46 PM ACTIVITIES COUNSELOR US ABDOMEN LIMITED STAT 12/04/2024 11 :40 AM ACTIVITIES COUNSELOR Hepatic cirrhosis, unspecified hepatic cirrhosis type, unspecified whether ascites present (HCC) CARDIAC EKG ORDER 12/04/2024 11: 29 AM ACTIVITIES COUNSELOR UREA NITROGEN URINE RANDOM STAT 12/04/2024 9:39 AM ACTIVITIES COUNSELOR FERRITIN MICHELLE 12/04/2024 9:38 AM ACTIVITIES COUNSELOR VITAMIN B12 MICHELLE 12/04/2024 9:38 AM ACTIVITIES COUNSELOR FOLATE MICHELLE 12/04/2024 9:38 AM ACTIVITIES COUNSELOR IRON + TRANSFERRIN PANEL STAT 12/04/2024 9:38 AM ACTIVITIES COUNSELOR GLUCOSE - POINT OF CARE Routine 12/04/2024 7:48 AM ACTIVITIES COUNSELOR GLUCOSE - POINT OF CARE Routine 12/04/2024 5:46 AM ACTIVITIES COUNSELOR GLUCOSE - POINT OF CARE Routine 12/04/2024 4:50 AM ACTIVITIES COUNSELOR PHOSPHORUS BLOOD STAT 12/04/2024 4:33 AM ACTIVITIES COUNSELOR MAGNESIUM BLOOD STAT 12/04/2024 4:33 AM ACTIVITIES COUNSELOR COMPREHENSIVE METABOLIC PANEL STAT 12/04/2024 4:33 AM ACTIVITIES COUNSELOR CBC W AUTO DIFFERENTIAL STAT 12/04/2024 4:25 AM ACTIVITIES COUNSELOR GLUCOSE - POINT OF CARE Routine 12/04/2024 4:20 AM ACTIVITIES COUNSELOR GLUCOSE - POINT OF CARE Routine 12/04/2024 2:29 AM ACTIVITIES COUNSELOR GLUCOSE - POINT OF CARE Routine 12/04/2024 12:51 AM ACTIVITIES COUNSELOR CREATININE URINE RANDOM STAT 12/04/2024 12:17 AM ACTIVITIES COUNSELOR LYTES (NA K CL) URINE RANDOM PANEL STAT 12/04/2024 12:17 AM ACTIVITIES COUNSELOR URINALYSIS REFLEX MICROSCOPIC REFLEX CULTURE STAT 12/04/2024 12:17 AM ACTIVITIES COUNSELOR GLUCOSE - POINT OF CARE Routine 12/03/2024 11:09 PM ACTIVITIES COUNSELOR GLUCOSE - POINT OF CARE Routine 12/03/2024 8:33 PM ACTIVITIES COUNSELOR GLUCOSE - POINT OF CARE Routine 12/03/2024 8:27 PM ACTIVITIES COUNSELOR CULTURE BLOOD Timed 12/03/2024 6:17 PM ACTIVITIES COUNSELOR CULTURE BLOOD Timed 12/03/2024 6:[address] HEAD WO CONTRAST STAT 12/03/2024 4 :56 PM ACTIVITIES COUNSELOR Altered mental status, unspecified altered mental status type Hepatic cirrhosis, unspecified hepatic cirrhosis type, unspecified whether ascites present (HCC) TROPONIN-I HIGH SENSITIVE REFLEX 1HOUR Timed 12/03/2024 3:26 PM ACTIVITIES COUNSELOR SARS-COV-2 (COVID-19) FLU A/B RSV PCR RAPID STAT 12/03/2024 12:36 PM ACTIVITIES COUNSELOR PTT [facility] STAT 12/03/2024 12:35 PM ACTIVITIES COUNSELOR PT-INR [facility] STAT 12/03/2024 12:35 PM ACTIVITIES COUNSELOR AMMONIA STAT 12/03/2024 12:35 PM ACTIVITIES COUNSELOR TROPONIN-I HIGH SENSITIVE BASELINE + 1HR STAT 12/03/2024 12:35 PM ACTIVITIES COUNSELOR MAGNESIUM BLOOD STAT 12/03/2024 12:35 PM ACTIVITIES COUNSELOR COMPREHENSIVE METABOLIC PANEL STAT 12/03/2024 12:35 PM ACTIVITIES COUNSELOR CBC W AUTO DIFFERENTIAL STAT 12/03/2024 12:35 PM ACTIVITIES COUNSELOR EKG 12-LEAD STAT 12/03/2024 12:21 PM ACTIVITIES COUNSELOR Altered mental status, unspecified altered mental status type XR CHEST 2VW STAT 12/03/2024 11:24 AM ACTIVITIES COUNSELOR Altered mental status, unspecified altered mental status type GLUCOSE - POINT OF CARE Routine 11/13/2024 3:43 PM ACTIVITIES COUNSELOR GLUCOSE - POINT OF CARE Routine 11/13/2024 10:46 AM ACTIVITIES COUNSELOR GLUCOSE - POINT OF CARE Routine 11/13/2024 8:48 AM ACTIVITIES COUNSELOR CBC W AUTO DIFFERENTIAL Routine 11/13/2024 7:57 AM ACTIVITIES COUNSELOR MAGNESIUM BLOOD Routine 11/13/2024 7:57 AM ACTIVITIES COUNSELOR PHOSPHORUS BLOOD Routine 11/13/2024 7:57 AM ACTIVITIES COUNSELOR COMPREHENSIVE METABOLIC PANEL Routine 11/13/2024 7:57 AM ACTIVITIES COUNSELOR GLUCOSE - POINT OF CARE Routine 11/12/2024 8:31 PM ACTIVITIES COUNSELOR GLUCOSE - POINT OF CARE Routine 11/12/2024 3:43 PM ACTIVITIES COUNSELOR GLUCOSE - POINT OF CARE Routine 11/12/2024 10:56 AM ACTIVITIES COUNSELOR CBC W AUTO DIFFERENTIAL Routine 11/12/2024 7:11 AM ACTIVITIES COUNSELOR MAGNESIUM BLOOD Routine 11/12/2024 7:11 AM ACTIVITIES COUNSELOR PHOSPHORUS BLOOD Routine 11/12/2024 7:11 AM ACTIVITIES COUNSELOR COMPREHENSIVE METABOLIC PANEL Routine 11/12/2024 7:11 AM ACTIVITIES COUNSELOR GLUCOSE - POINT OF CARE Routine 11/12/2024 6:37 AM ACTIVITIES COUNSELOR GLUCOSE - POINT OF CARE Routine 11/11/2024 8:50 PM ACTIVITIES COUNSELOR GLUCOSE - POINT OF CARE Routine 11/11/2024 3:10 PM ACTIVITIES COUNSELOR CARDIAC EKG ORDER 11/11/2024 12: 23 PM ACTIVITIES COUNSELOR GLUCOSE - POINT OF CARE Routine 11/11/2024 11:44 AM ACTIVITIES COUNSELOR CBC W AUTO DIFFERENTIAL Routine 11/11/2024 9:07 AM ACTIVITIES COUNSELOR MAGNESIUM BLOOD Routine 11/11/2024 9:07 AM ACTIVITIES COUNSELOR PHOSPHORUS BLOOD Routine 11/11/2024 9:07 AM ACTIVITIES COUNSELOR COMPREHENSIVE METABOLIC PANEL Routine 11/11/2024 9:07 AM ACTIVITIES COUNSELOR GLUCOSE - POINT OF CARE Routine 11/11/2024 6:56 AM ACTIVITIES COUNSELOR GLUCOSE - POINT OF CARE Routine 11/10/2024 10:52 PM ACTIVITIES COUNSELOR GLUCOSE - POINT OF CARE Routine 11/10/2024 4:39 PM ACTIVITIES COUNSELOR GLUCOSE - POINT OF CARE Routine 11/10/2024 12:25 PM ACTIVITIES COUNSELOR GLUCOSE - POINT OF CARE Routine 11/10/2024 6:59 AM ACTIVITIES COUNSELOR CBC W AUTO DIFFERENTIAL Routine 11/10/2024 6:23 AM ACTIVITIES COUNSELOR MAGNESIUM BLOOD Routine 11/10/2024 6:23 AM ACTIVITIES COUNSELOR PHOSPHORUS BLOOD Routine 11/10/2024 6:23 AM ACTIVITIES COUNSELOR COMPREHENSIVE METABOLIC PANEL Routine 11/10/2024 6:23 AM ACTIVITIES COUNSELOR GLUCOSE - POINT OF CARE Routine 11/10/2024 1:23 AM ACTIVITIES COUNSELOR GLUCOSE - POINT OF CARE Routine 11/09/2024 5:46 PM ACTIVITIES COUNSELOR GLUCOSE - POINT OF CARE Routine 11/09/2024 4:10 PM ACTIVITIES COUNSELOR GLUCOSE - POINT OF CARE Routine 11/09/2024 11:38 AM ACTIVITIES COUNSELOR CBC W AUTO DIFFERENTIAL Routine 11/09/2024 7:18 AM ACTIVITIES COUNSELOR MAGNESIUM BLOOD Routine 11/09/2024 7:18 AM ACTIVITIES COUNSELOR PHOSPHORUS BLOOD Routine 11/09/2024 7:18 AM ACTIVITIES COUNSELOR COMPREHENSIVE METABOLIC PANEL Routine 11/09/2024 7:18 AM ACTIVITIES COUNSELOR GLUCOSE - POINT OF CARE Routine 11/09/2024 7:09 AM ACTIVITIES COUNSELOR GLUCOSE - POINT OF CARE Routine 11/08/2024 9:45 PM ACTIVITIES COUNSELOR CBC W AUTO DIFFERENTIAL Routine 11/08/2024 5:13 PM ACTIVITIES COUNSELOR MAGNESIUM BLOOD Routine 11/08/2024 5:13 PM ACTIVITIES COUNSELOR PHOSPHORUS BLOOD Routine 11/08/2024 5:13 PM ACTIVITIES COUNSELOR COMPREHENSIVE METABOLIC PANEL Routine 11/08/2024 5:13 PM ACTIVITIES COUNSELOR GLUCOSE - POINT OF CARE Routine 11/08/2024 4:27 PM ACTIVITIES COUNSELOR GLUCOSE - POINT OF CARE Routine 11/08/2024 12:04 PM ACTIVITIES COUNSELOR GLUCOSE - POINT OF CARE Routine 11/08/2024 6:50 AM ACTIVITIES COUNSELOR GLUCOSE - POINT OF CARE Routine 11/07/2024 9:06 PM ACTIVITIES COUNSELOR GLUCOSE - POINT OF CARE Routine 11/07/2024 5:02 PM ACTIVITIES COUNSELOR GLUCOSE - POINT OF CARE Routine 11/07/2024 2:46 PM ACTIVITIES COUNSELOR HIV-1 HIV-2 ANTIBODY + HIV P24 AG PANEL STAT 11/07/2024 4:27 AM ACTIVITIES COUNSELOR TSH REFLEX FREE T4 STAT 11/07/2024 4: 27 AM ACTIVITIES COUNSELOR VITAMIN B12 MICHELLE 11/07/2024 4:27 AM ACTIVITIES COUNSELOR FOLATE MICHELLE 11/07/2024 4:27 AM ACTIVITIES COUNSELOR VITAMIN B1 STAT 11/07/2024 4:27 AM ACTIVITIES COUNSELOR SYPHILIS ANTIBODY CASCADING REFLEX STAT 11/07/2024 4:27 AM ACTIVITIES COUNSELOR CBC W AUTO DIFFERENTIAL STAT 11/07/2024 4:27 AM ACTIVITIES COUNSELOR MAGNESIUM BLOOD STAT 11/07/2024 4:27 AM ACTIVITIES COUNSELOR PHOSPHORUS BLOOD STAT 11/07/2024 4:27 AM ACTIVITIES COUNSELOR COMPREHENSIVE METABOLIC PANEL STAT 11/07/2024 4:27 AM ACTIVITIES COUNSELOR GLUCOSE - POINT OF CARE Routine 11/07/2024 12:21 AM ACTIVITIES COUNSELOR URINALYSIS W/MICROSCOPIC REFLEX TO CULTURE STAT 11/06/2024 11:44 PM ACTIVITIES COUNSELOR URINE DRUG SCREEN IMMUNOASSAY STAT 11/06/2024 11:43 PM ACTIVITIES COUNSELOR DIFFERENTIAL MANUAL FLUID STAT 11/06/2024 8:27 PM ACTIVITIES COUNSELOR PROTEIN BODY FLUID STAT 11/06/2024 8: 27 PM ACTIVITIES COUNSELOR GLUCOSE BODY FLUID STAT 11/06/2024 8: 27 PM ACTIVITIES COUNSELOR CELL COUNT W DIFFERENTIAL FLUID STAT 11/06/2024 8:27 PM ACTIVITIES COUNSELOR HYDROXYBUTYRATE BETA STAT 11/06/2024 8:26 PM ACTIVITIES COUNSELOR CULTURE FLUID+GRAM STAIN STAT 11/06/2024 8:15 PM ACTIVITIES COUNSELOR ED PARACENTESIS Routine 11/06/2024 6:28 PM ACTIVITIES COUNSELOR Encephalopathy, unspecified type Decompensated cirrhosis (HCC) TROPONIN-I HIGH SENSITIVE REFLEX 1HOUR Timed 11/06/2024 4:33 PM ACTIVITIES COUNSELOR SARS-COV-2 (COVID-19)+INFLU A+B PCR RAPID STAT 11/06/2024 3:40 PM ACTIVITIES COUNSELOR TROPONIN-I HIGH SENSITIVE BASELINE + 1HR STAT 11/06/2024 3:30 PM ACTIVITIES COUNSELOR AMMONIA STAT 11/06/2024 3:30 PM ACTIVITIES COUNSELOR EKG 12-LEAD STAT 11/06/2024 3:17 PM ACTIVITIES COUNSELOR Encephalopathy, unspecified type CT HEAD WO CONTRAST STAT 11/06/2024 2 :47 PM ACTIVITIES COUNSELOR Encephalopathy, unspecified type XR CHEST 1VW PORTABLE STAT 11/06/2024 2:29 PM ACTIVITIES COUNSELOR Encephalopathy, unspecified type LIPASE BLOOD STAT 11/06/2024 12:54 PM ACTIVITIES COUNSELOR PT-INR [facility] STAT 11/06/2024 12:54 PM ACTIVITIES COUNSELOR COMPREHENSIVE METABOLIC PANEL STAT 11/06/2024 12:54 PM ACTIVITIES COUNSELOR CBC W AUTO DIFFERENTIAL STAT 11/06/2024 12:54 PM ACTIVITIES COUNSELOR NH ESOPHAGUS MOTILITY STUDY 10/31/2024 9:25 AM ACTIVITIES COUNSELOR Dysphagia, unspecified type GLUCOSE - POINT OF CARE Routine 10/28/2024 10:51 AM ACTIVITIES COUNSELOR GLUCOSE - POINT OF CARE Routine 10/28/2024 8:12 AM ACTIVITIES COUNSELOR PT-INR [facility] Routine 10/28/2024 6:14 AM ACTIVITIES COUNSELOR CBC W/O DIFFERENTIAL Routine 10/28/2024 6:14 AM ACTIVITIES COUNSELOR PHOSPHORUS BLOOD Routine 10/28/2024 6:14 AM ACTIVITIES COUNSELOR MAGNESIUM BLOOD Routine 10/28/2024 6:14 AM ACTIVITIES COUNSELOR COMPREHENSIVE METABOLIC PANEL Routine 10/28/2024 6:14 AM ACTIVITIES COUNSELOR GLUCOSE - POINT OF CARE Routine 10/27/2024 8:28 PM ACTIVITIES COUNSELOR GLUCOSE - POINT OF CARE Routine 10/27/2024 4:53 PM ACTIVITIES COUNSELOR GLUCOSE - POINT OF CARE Routine 10/27/2024 12:17 PM ACTIVITIES COUNSELOR PT-INR [facility] Routine 10/27/2024 8:18 AM ACTIVITIES COUNSELOR CBC W/O DIFFERENTIAL Routine 10/27/2024 8:18 AM ACTIVITIES COUNSELOR PHOSPHORUS BLOOD Routine 10/27/2024 8:18 AM ACTIVITIES COUNSELOR MAGNESIUM BLOOD Routine 10/27/2024 8:18 AM ACTIVITIES COUNSELOR COMPREHENSIVE METABOLIC PANEL Routine 10/27/2024 8:18 AM ACTIVITIES COUNSELOR GLUCOSE - POINT OF CARE Routine 10/27/2024 8:01 AM ACTIVITIES COUNSELOR GLUCOSE - POINT OF CARE Routine 10/26/2024 9:12 PM ACTIVITIES COUNSELOR GLUCOSE - POINT OF CARE Routine 10/26/2024 9:14 AM ACTIVITIES COUNSELOR VITAMIN D 1,25 DIHYDROXY Routine 10/26/2024 4:00 AM ACTIVITIES COUNSELOR PT-INR [facility] Routine 10/26/2024 4:00 AM ACTIVITIES COUNSELOR CBC W/O DIFFERENTIAL Routine 10/26/2024 4:00 AM ACTIVITIES COUNSELOR PHOSPHORUS BLOOD Routine 10/26/2024 4:00 AM ACTIVITIES COUNSELOR MAGNESIUM BLOOD Routine 10/26/2024 4:00 AM ACTIVITIES COUNSELOR COMPREHENSIVE METABOLIC PANEL Routine 10/26/2024 4:00 AM ACTIVITIES COUNSELOR GLUCOSE - POINT OF CARE Routine 10/25/2024 8:57 PM ACTIVITIES COUNSELOR GLUCOSE - POINT OF CARE Routine 10/25/2024 4:22 PM ACTIVITIES COUNSELOR GLUCOSE - POINT OF CARE Routine 10/25/2024 12:17 PM ACTIVITIES COUNSELOR SODIUM URINE RANDOM Routine 10/25/2024 1 0:40 AM ACTIVITIES COUNSELOR GLUCOSE - POINT OF CARE Routine 10/25/2024 8:59 AM ACTIVITIES COUNSELOR US ABDOMEN LTD W COMP DOPPLER Routine 10/25/2024 8:20 AM ACTIVITIES COUNSELOR Hepatic encephalopathy (HCC) PTH RELATED PEPTIDE AM Draw 10/25/2024 4 :54 AM ACTIVITIES COUNSELOR LDH BLOOD Routine 10/25/2024 4:54 AM ACTIVITIES COUNSELOR VITAMIN D 25-HYDROXY AM Draw 10/25/2024 4:54 AM ACTIVITIES COUNSELOR PTH INTACT W/O CALCIUM AM Draw 4:54 AM ACTIVITIES COUNSELOR PT-INR [facility] Routine 10/25/2024 4:54 AM ACTIVITIES COUNSELOR CBC W/O DIFFERENTIAL Routine 10/25/2024 4:54 AM ACTIVITIES COUNSELOR PHOSPHORUS BLOOD Routine 10/25/2024 4:54 AM ACTIVITIES COUNSELOR MAGNESIUM BLOOD Routine 10/25/2024 4:54 AM ACTIVITIES COUNSELOR COMPREHENSIVE METABOLIC PANEL Routine 10/25/2024 4:54 AM ACTIVITIES COUNSELOR GLUCOSE - POINT OF CARE Routine 10/24/2024 9:28 PM ACTIVITIES COUNSELOR GLUCOSE - POINT OF CARE Routine 10/24/2024 5:21 PM ACTIVITIES COUNSELOR GLUCOSE - POINT OF CARE Routine 10/24/2024 12:31 PM ACTIVITIES COUNSELOR CALCIUM IONIZED WHOLE BLOOD AM Draw 10/24/2024 8:47 AM ACTIVITIES COUNSELOR HEMOGLOBIN A1C Routine 10/24/2024 8:47 AM ACTIVITIES COUNSELOR PT-INR [facility] Routine 10/24/2024 8:47 AM ACTIVITIES COUNSELOR CBC W/O DIFFERENTIAL Routine 10/24/2024 8:47 AM ACTIVITIES COUNSELOR PHOSPHORUS BLOOD Routine 10/24/2024 8:47 AM ACTIVITIES COUNSELOR MAGNESIUM BLOOD Routine 10/24/2024 8:47 AM ACTIVITIES COUNSELOR COMPREHENSIVE METABOLIC PANEL Routine 10/24/2024 8:47 AM ACTIVITIES COUNSELOR LACTIC ACID BLOOD AM Draw 10/24/2024 8:4 7 AM ACTIVITIES COUNSELOR GLUCOSE - POINT OF CARE Routine 10/24/2024 8:29 AM ACTIVITIES COUNSELOR GLUCOSE - POINT OF CARE Routine 10/24/2024 6:14 AM ACTIVITIES COUNSELOR GLUCOSE - POINT OF CARE Routine 10/23/2024 11:50 PM ACTIVITIES COUNSELOR GLUCOSE - POINT OF CARE Routine 10/23/2024 9:56 PM ACTIVITIES COUNSELOR GLUCOSE - POINT OF CARE Routine 10/23/2024 9:[address] HEAD WO CONTRAST STAT 10/23/2024 9 :23 PM ACTIVITIES COUNSELOR Hepatic encephalopathy (HCC) XR CHEST 1VW PORTABLE STAT 10/23/2024 8:09 PM ACTIVITIES COUNSELOR Hepatic encephalopathy (HCC) BLOOD GASES REINA + COOX PANEL STAT 10/23/2024 6:25 PM ACTIVITIES COUNSELOR CULTURE BLOOD Timed 10/23/2024 6:25 PM ACTIVITIES COUNSELOR HYDROXYBUTYRATE BETA STAT 10/23/2024 6:11 PM ACTIVITIES COUNSELOR LACTIC ACID BLOOD REFLEX TO REPEAT Timed STAT 10/23/2024 6:11 PM ACTIVITIES COUNSELOR CULTURE BLOOD Timed 10/23/2024 6:11 PM ACTIVITIES COUNSELOR DIFFERENTIAL MANUAL FLUID STAT 10/23/2024 5:27 PM ACTIVITIES COUNSELOR CELL COUNT W DIFFERENTIAL FLUID STAT 10/23/2024 5:27 PM ACTIVITIES COUNSELOR CULTURE FLUID+GRAM STAIN STAT 10/23/2024 5:27 PM ACTIVITIES COUNSELOR ED PARACENTESIS Routine 10/23/2024 4:59 PM ACTIVITIES COUNSELOR LACTIC ACID BLOOD REFLEX TO REPEAT Timed STAT 10/23/2024 3:09 PM ACTIVITIES COUNSELOR URINALYSIS W/MICROSCOPIC REFLEX TO CULTURE STAT 10/23/2024 3:09 PM ACTIVITIES COUNSELOR MAGNESIUM BLOOD STAT 10/23/2024 12:54 PM ACTIVITIES COUNSELOR AMMONIA STAT 10/23/2024 12:54 PM ACTIVITIES COUNSELOR LACTIC ACID BLOOD REFLEX TO REPEAT STAT 10/23/2024 12:54 PM ACTIVITIES COUNSELOR PT-INR SLH STAT 10/23/2024 12:54 PM ACTIVITIES COUNSELOR COMPREHENSIVE METABOLIC PANEL STAT 10/23/2024 12:54 PM ACTIVITIES COUNSELOR CBC W AUTO DIFFERENTIAL STAT 10/23/2024 12:54 PM ACTIVITIES COUNSELOR GLUCOSE - POINT OF CARE Routine 09/30/2024 11:54 AM ACTIVITIES COUNSELOR GLUCOSE - POINT OF CARE Routine 09/30/2024 7:54 AM ACTIVITIES COUNSELOR COMPREHENSIVE METABOLIC PANEL AM Draw 09/30/2024 12:21 AM ACTIVITIES COUNSELOR CBC W AUTO DIFFERENTIAL Routine 09/30/2024 12:21 AM ACTIVITIES COUNSELOR MAGNESIUM BLOOD Routine 09/30/2024 12:21 AM ACTIVITIES COUNSELOR PHOSPHORUS BLOOD Routine 09/30/2024 12:2 1 AM ACTIVITIES COUNSELOR GLUCOSE - POINT OF CARE Routine 09/29/2024 9:06 PM ACTIVITIES COUNSELOR GLUCOSE - POINT OF CARE Routine 09/29/2024 5:49 PM ACTIVITIES COUNSELOR GLUCOSE - POINT OF CARE Routine 09/29/2024 11:56 AM ACTIVITIES COUNSELOR GLUCOSE - POINT OF CARE Routine 09/29/2024 8:39 AM ACTIVITIES COUNSELOR COMPREHENSIVE METABOLIC PANEL AM Draw 09/29/2024 6:03 AM ACTIVITIES COUNSELOR CBC W AUTO DIFFERENTIAL Routine 09/29/2024 6:03 AM ACTIVITIES COUNSELOR MAGNESIUM BLOOD Routine 09/29/2024 6:03 AM ACTIVITIES COUNSELOR PHOSPHORUS BLOOD Routine 09/29/2024 6:03 AM ACTIVITIES COUNSELOR GLUCOSE - POINT OF CARE Routine 09/28/2024 8:37 PM ACTIVITIES COUNSELOR GLUCOSE - POINT OF CARE Routine 09/28/2024 6:42 PM ACTIVITIES COUNSELOR URINALYSIS REFLEX MICROSCOPIC REFLEX CULTURE STAT 09/28/2024 4:48 PM ACTIVITIES COUNSELOR AMMONIA STAT 09/28/2024 11:53 AM ACTIVITIES COUNSELOR PT-INR [facility] STAT 09/28/2024 11:53 AM ACTIVITIES COUNSELOR MAGNESIUM BLOOD STAT 09/28/2024 11:53 AM ACTIVITIES COUNSELOR COMPREHENSIVE METABOLIC PANEL STAT 09/28/2024 11:53 AM ACTIVITIES COUNSELOR CBC W AUTO DIFFERENTIAL STAT 09/28/2024 11:53 AM ACTIVITIES COUNSELOR from Last 3 Months Results * (ABNORMAL) GLUCOSE - POINT OF CARE (12/08/2024 12:03 PM ACTIVITIES COUNSELOR) Only the most recent of98 resultswithin the time period is included. Glucose WB/POC 246(H) 70 - 99 mg/dL 12/08/2024 12:03 PM ACTIVITIES COUNSELOR [facility] Specimen Type Cap Fingerstick 2024 12:03 PM ACTIVITIES COUNSELOR [facility] Blood BLOOD SPECIMEN / Unknown 12/08/2024 12:03 PM ACTIVITIES COUNSELOR 12/08/2024 12:03 PM ACTIVITIES COUNSELOR Darek Teran MD LAB - POINT OF CARE ORDERABLES [facility] [address] [place] [address], [facility] [phone] * (ABNORMAL) CBC W AUTO DIFFERENTIAL (12/08/2024 5:06 AM [facility]) Only the most recent of18 resultswithin the time period is included. WBC 3.6(L) 4.0 - 10.7 x10E9/L 12/08/2024 5:38 AM [facility] RBC Count 2.38(L) 4.30 - 5.80 x10E12/L 12/08/2024 5:38 AM [facility] Hemoglobin 7.6(L) 13.3 - 17.5 g/dL 12/08/2024 5:38 AM [facility] Hematocrit 22.2(L) 38.7 - 51.1 % 12/08/2024 5:38 AM [facility] MCV 93.3 80.0 - 98.0 fL 12/08/2024 5:38 AM [facility] MCH 31.9 26.7 - 33.6 pg 12/08/2024 5:38 AM [facility] MCHC 34.2 31.7 - 36.3 g/dL 12/08/2024 5:38 AM [facility] RDW-CV 17.2(H) 11.3 - 14.8 % 12/08/2024 5:38 AM [facility] Platelet Count 121(L) 150 - 420 x10E9/L 12/08/2024 5:38 AM [facility] MPV 11.1 7.8 - 11.4 fL 12/08/2024 5:38 AM [facility] Neutrophil % 76.9(H) 41.0 - 74.0 % 12/08/2024 5:38 AM [facility] Lymphocyte % 7.2(L) 17.0 - 47.0 % 12/08/2024 5:38 AM [facility] Monocyte % 10.9 3.0 - 11.0 % 12/08/2024 5:38 AM [facility] Eosinophil % 3.9 0.0 - 7.0 % 12/08/2024 5:38 AM [facility] Basophil % 0.3 0.0 - 1.6 % 12/08/2024 5:38 AM [facility] Immature Granulocytes % 0.8 0.0 - 1.0 % 12/08/2024 5:38 AM [facility] Neutrophil Absolute 2.76 1.60 - 7.50 x10E9/L 12/08/2024 5:38 AM [facility] Lymphocyte Absolute 0.26(L) 1.00 - 4.40 x10E9/L 12/08/2024 5:38 AM [facility] Monocyte Absolute 0.39 0.15 - 1.00 x10E9/L 12/08/2024 5:38 AM [facility] Eosinophil Absolute 0.14 0.00 - 0.60 x10E9/L 12/08/2024 5:38 AM [facility] Basophil Absolute 0.01 0.00 - 0.13 x10E9/L 12/08/2024 5:38 AM [facility] Blood BLOOD SPECIMEN / Unknown Venipuncture / Unknown 12/08/2024 5:06 AM [facility] 12/08/2024 5:20 AM [facility] Juancarlos Lujan MD LAB - HEMATOLOGY ORD ERABLES Performing Organization Address City/State/[facility] Co de Phone Number [address] [address], [facility] [phone] * (ABNORMAL) COMPREHENSIVE METABOLIC PANEL (12/08/2024 5:06 AM [facility]) Only the most recent of23 resultswithin the time period is included. BUN 27(H) 7 - 26 mg/dL 12/08/2024 5:56 AM [facility] Creatinine 1.28(H) 0.71 - 1.16 mg/dL 12/08/2024 5:56 AM [facility] Sodium 136 136 - 145 mmol/L 12/08/2024 5:56 AM [facility] Potassium 3.7 3.5 - 4.5 mmol/L 12/08/2024 5:56 AM [facility] Chloride 110(H) 98 - 107 mmol/L 12/08/2024 5:56 AM [facility] CO2 16(L) 22 - 29 mmol/L 12/08/2024 5:56 AM [facility] Glucose 171(H) 70 - 99 mg/dL 12/08/2024 5:56 AM [facility] Calcium 9.5 8.4 - 10.2 mg/dL 12/08/2024 5:56 AM [facility] Protein Total 5.9(L) 6.0 - 8.3 g/dL 12/08/2024 5:56 AM [facility] Albumin 2.7(L) 3.4 - 5.0 g/dL 12/08/2024 5:56 AM [facility] Bilirubin Total 0.9 0.2 - 1.2 mg/dL 12/08/2024 5:56 AM [facility] Alkaline Phosphatase 251(H) 40 - 150 U/L 12/08/2024 5:56 AM [facility] ALT 31 5 - 55 U/L 12/08/2024 5:56 AM [facility] AST 27 5 - 34 U/L 12/08/2024 5:56 AM [facility] Anion Gap 10 6 - 16 12/08/2024 5:56 AM [facility] BUN/Creatinine Ratio 21 7 - 23 12/08/2024 5:56 AM [facility] Osmolality Calculated 291 275 - 295 mOsm/kg 12/08/2024 5:56 AM [facility] Albumin/Globulin Ratio 0.8(L) 1.1 - 2.3 12/08/2024 5:56 AM [facility] eGFR by CKD-EPI 57(L) >=90 mL/min/1.7 3 m2 12/08/2024 5:56 AM [facility] Blood BLOOD SPECIMEN / Unknown Venipuncture / Unknown 12/08/2024 5:06 AM [facility] 12/08/2024 5:28 AM ACTIVITIES COUNSELOR Juancarlos Lujan MD LAB - CHEMISTRY JOHN PAUL RIVAS Performing Organization Address City/[facility]/ZIP Co de Phone Number [address] [address], [facility] [phone] * (ABNORMAL) PHOSPHORUS BLOOD (12/08/2024 5:06 AM ACTIVITIES COUNSELOR) Only the most recent of19 resultswithin the time period is included. Phosphorus 1.9(L) 2.8 - 5.1 mg/dL 12/08/2024 5:56 AM [facility] Blood BLOOD SPECIMEN / Unknown Venipuncture / Unknown 12/08/2024 5:06 AM ACTIVITIES COUNSELOR 12/08/2024 5:28 AM ACTIVITIES COUNSELOR Juancarlos Lujan MD LAB - CHEMISTRY [facility] PAUL RIVAS Performing Organization Address [facility] Co de Phone Number [address] [address], [facility] [phone] * MAGNESIUM BLOOD (12/08/2024 5:06 AM ACTIVITIES COUNSELOR) Only the most recent of22 resultswithin the time period is included. Magnesium 2.1 1.6 - 2.6 mg/dL 12/08/2024 5:56 AM [facility] Blood BLOOD SPECIMEN / Unknown Venipuncture / Unknown 12/08/2024 5:06 AM ACTIVITIES COUNSELOR 12/08/2024 5:28 AM ACTIVITIES COUNSELOR Juancarlos Lujan MD LAB - CHEMISTRY JOHN PAUL RIVAS Performing Organization Address [facility]/ZIP Co de Phone Number [address] [address], [place] [phone] * IGF BINDING PROTEIN 1 (12/06/2024 5:39 AM ACTIVITIES COUNSELOR) IGF Binding Protein-1 19 5 - 34 ng/mL 12/17/2024 3:04 AM [facility]) Comment: The limit of detection of this assay is 5 ng/mL. A proportion of normal patients will have results less than 5 ng/mL. This test was developed and its analytical performance characteristics have been determined by [email or web address]. It has not been cleared or approved by FDA. This assay has been validated pursuant to the CLIA regulations and is used for clinical purposes. Performed by: [email or web address] [facility] [address] [place] [address] Catie Pope MD, PhD, JIMMY, Blood BLOOD SPECIMEN / Unknown Lab Venipuncture / Unknown 12/06/2024 5:39 AM ACTIVITIES COUNSELOR 12/06/2024 5:58 AM ACTIVITIES COUNSELOR Juancarlos Lujan MD LAB - CHEMISTRY JOHN PAUL RIVAS Performing Organization Address [facility] Co de Phone Number [employer] [facility]) [address] [place] [address] * INSULIN LIKE GROWTH FACTOR 2 (12/06/2024 5:39 AM ACTIVITIES COUNSELOR) [facility] INSULIN-LIKE GROWTH FACTOR (IGF-2) 156 ng/mL 12/09/2024 1:29 PM ACTIVITIES COUNSELOR [facility] [employer] [facility] ([facility]) Comment: INTERPRETIVE INFORMATION: Insulin-Like Growth Factor 2 Prepubertal (0-11 years old): 127 to 473 ng/mL Postpubertal (12 years and older): 180 to 580 ng/mL This test was developed and its performance characteristics determined by [facility]. It has not been cleared or approved by the US Food and Drug Administration. This test was performed in a CLIA certified laboratory and is intended for clinical purposes. Performed By: [facility] [address] [place] [address] [employer] T[employer] Slitter: Armando Lowe MD, PhD CLIA Number: [id number] Blood BLOOD SPECIMEN / Unknown Lab Venipuncture / Unknown 12/06/2024 5:39 AM ACTIVITIES COUNSELOR 12/06/2024 5:58 AM ACTIVITIES COUNSELOR Juancarlos Lujan MD LAB - CHEMISTRY JOHN PAUL RIVAS Performing Organization Address [facility]/ZIP Co de Phone Number [facility]) [address] [place] [address] * INSULIN FREE + TOTAL (12/06/2024 5:39 AM ACTIVITIES COUNSELOR) Only the most recent of2 resultswithin the time period is included. Pathologist [facility] Insulin Free 9 3 - 25 uIU/mL 12/10/2024 9:36 AM ACTIVITIES COUNSELOR [facility] [employer] ([facility]) Insulin 11 3 - 25 uIU/mL 12/10/2024 9:36 AM ACTIVITIES COUNSELOR [facility] [employer] ([facility]) Comment: INTERPRETIVE INFORMATION: Insulin, Free and Total This test reacts on a nearly equimolar basis with the analogs insulin aspart, insulin glargine, and insulin lispro. Insulin detemir exhibits approximately 50 percent cross-reactivity. Test reactivity with insulin glulisine is negligible (<3 percent). To convert to pmol/L, multiply uIU/mL by 6.0. Reference intervals established for fasting specimens. Performed By: [facility] [address] [place] [address] Electric Tape Slitter: Armando Lowe MD, PhD CLIA Number: [id number] Blood BLOOD SPECIMEN / Unknown Lab Venipuncture / Unknown 12/06/2024 5:39 AM ACTIVITIES COUNSELOR 12/06/2024 5:58 AM ACTIVITIES COUNSELOR Juancarlos Lujan MD LAB - CHEMISTRY ORDUlysses RIVAS [facility] [employer] [facility]) [address] * (ABNORMAL) C-PEPTIDE (12/06/2024 5:39 AM ACTIVITIES COUNSELOR) Only the most recent of2 resultswithin the time period is included. Pathologist [facility] C-Peptide 6.9(H) 0.5 - 3.3 ng/mL 12/08/2024 9:16 PM ACTIVITIES COUNSELOR [facility] ([facility]) Comment: INTERPRETIVE INFORMATION: Serum, C-Peptide Reference Interval applies to fasting specimens. To convert to nmol/L, multiply by 0.33 Performed By: [facility] [address] [place] [address] Electric Tape Slitter: Armando Lowe MD, PhD CLIA Number: [id number] Blood BLOOD SPECIMEN / Unknown Lab Venipuncture / Unknown 12/06/2024 5:39 AM ACTIVITIES COUNSELOR 12/06/2024 5:58 AM ACTIVITIES COUNSELOR Juancarlos Lujan MD LAB - CHEMISTRY JOHN PAUL RIVAS Performing Organization Address City/[facility]/ZIP Co de Phone Number [facility] [employer] [facility]) [address] [place] [address] * (ABNORMAL) PROINSULIN (12/06/2024 5:39 AM ACTIVITIES COUNSELOR) Only the most recent of2 resultswithin the time period is included. Proinsulin 10.1(H) <=7.2 pmol/L 12/10/2024 7:21 AM ACTIVITIES COUNSELOR [facility] ([facility]) Comment: Performed By: [facility] [address] [place] [address] Electric Tape Slitter: Armando Lowe MD, PhD CLIA Number: [id number] Blood BLOOD SPECIMEN / Unknown Lab Venipuncture / Unknown 12/06/2024 5:39 AM ACTIVITIES COUNSELOR 12/06/2024 5:58 AM ACTIVITIES COUNSELOR Juancarlos Lujan MD LAB - CHEMISTRY JOHN PAUL RIVAS Performing Organization Address [facility] Co de Phone Number [facility] ([facility]) [address] [place] [address] * HYDROXYBUTYRATE BETA (12/06/2024 5:39 AM ACTIVITIES COUNSELOR) Only the most recent of3 resultswithin the time period is included. Beta-Hydroxybu tyrate <0.50 <0.50 mmol/L 12/06/2024 6:29 AM ACTIVITIES COUNSELOR [facility] Blood BLOOD SPECIMEN / Unknown Lab Venipuncture / Unknown 12/06/2024 5:39 AM ACTIVITIES COUNSELOR 12/06/2024 6:02 AM ACTIVITIES COUNSELOR Juancarlos Lujan MD LAB - CHEMISTRY JOHN PAUL RIVAS [address] [address], [facility] [phone] * CORTISOL BLOOD AM (12/06/2024 5:39 AM ACTIVITIES COUNSELOR) Cortisol AM 11.6 3.7 - 19.4 ug/dL 12/06/2024 6:47 AM ACTIVITIES COUNSELOR [facility] Blood BLOOD SPECIMEN / Unknown Lab Venipuncture / Unknown 12/06/2024 5:39 AM ACTIVITIES COUNSELOR 12/06/2024 6:02 AM ACTIVITIES COUNSELOR Narrative [facility] - 12/06/2024 6:47 AM ACTIVITIES COUNSELOR Normal cortisol levels are generally highest in the morning hours and lowest from late evening through the manager program management 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 The PM measurements of cortisol run approximately one-half to one-third of the AM values. Juancarlos Lujan MD LAB - CHEMISTRY JOHN PAUL RIVAS [address] [address], [facility] [phone] * US Abdomen Limited (12/04/2024 11:40 AM ACTIVITIES COUNSELOR) Anatomical Region Laterality Modality Abdomen Ultrasound 12/04/2024 11:4 9 AM ACTIVITIES COUNSELOR Impressions 12/04/2024 1:29 PM ACTIVITIES COUNSELOR IMPRESSION: 1. Hepatic cirrhosis with sequela of portal hypertension including moderate volume ascites. 2. No cholelithiasis. 3. Moderate to large volume ascites. > Interpreting Provider: Patsy Orellana MD on 12/04/2024 1:29 PM Narrative 12/04/2024 1:29 PM ACTIVITIES COUNSELOR PROCEDURE: US ABDOMEN LIMITED DATE/TIME OF EXAM: 12/04/2024 11:40 AM CLINICAL INFORMATION: None relevant/not provided if blank. Indication: K74.60: Hepatic cirrhosis, unspecified hepatic cirrhosis type, unspecified whether ascites present (HCC) Additional History: COMPARISON: Ultrasound from 10/25/2024 TECHNIQUE: Real-time ultrasound of the upper abdomen with DICOM image capture performed by cytotechnologist/cytology supervisor. FINDINGS: The liver is coarse in echotexture [...] abdomen with DICOM image capture performed by cytotechnologist/cytology supervisor. FINDINGS: The liver is coarse in echotexture [...] * CARDIAC EKG ORDER (12/04/2024 11:29 AM ACTIVITIES COUNSELOR) Only the most recent of2 resultswithin the time period is included. Narrative 12/04/2024 11:29 AM ACTIVITIES COUNSELOR Ordered by an unspecified provider. Scanned Document CARDIAC SERVICES ORD ERABLES * UREA NITROGEN URINE RANDOM (12/04/2024 9:39 AM ACTIVITIES COUNSELOR) Urea Nitrogen Random Urine 361 Not Established mg/dL 12/04/2024 11:02 AM ACTIVITIES COUNSELOR [facility] Urine URINE SPECIMEN OBTAINED BY CLEAN CATCH PROCEDURE / Unknown Collection / Unknown 12/04/2024 9:39 AM ACTIVITIES COUNSELOR 12/04/2024 10:13 AM ACTIVITIES COUNSELOR Narrative Authorizing Provider Result Vanna Lujan MD LAB - URINE CHEMISTR Y ORDERABLES Performing Organization Address City/[facility]/ZIP Co de Phone Number [address] [address], [facility] [phone] * FOLATE (12/04/2024 9:38 AM ACTIVITIES COUNSELOR) Only the most recent of2 resultswithin the time period is included. Folate 10.1 7.0 - 31.4 ng/mL 12/04/2024 11:27 AM ACTIVITIES COUNSELOR [facility] Blood BLOOD SPECIMEN / Unknown Venipuncture / Unknown 12/04/2024 9:38 AM ACTIVITIES COUNSELOR 12/04/2024 10:14 AM ACTIVITIES COUNSELOR Juancarlos Lujan MD LAB - CHEMISTRY JOHN PAUL RIVAS Performing Organization Address [facility] Co de Phone Number [address] [address], [place] [phone] * (ABNORMAL) VITAMIN B12 (12/04/2024 9:38 AM ACTIVITIES COUNSELOR) Only the most recent of2 resultswithin the time period is included. Vitamin B12 1,880(H) 213 - 816 pg/mL 12/04/2024 11:27 AM ACTIVITIES COUNSELOR [facility] Blood BLOOD SPECIMEN / Unknown Venipuncture / Unknown 12/04/2024 9:38 AM ACTIVITIES COUNSELOR 12/04/2024 10:14 AM ACTIVITIES COUNSELOR Narrative Authorizing Provider Result Vanna Lujan MD LAB - CHEMISTRY JOHN PAUL RIVAS Performing Organization Address [facility]/ZIP Co de Phone Number [address] [address], [place] [phone] * (ABNORMAL) IRON + TRANSFERRIN PANEL (12/04/2024 9:38 AM ACTIVITIES COUNSELOR) Iron 64 50 - 175 ug/dL 12/04/2024 10:48 AM [facility] Transferrin 150(L) 174 - 382 mg/dL 12/04/2024 10:48 AM [facility] Transferrin Saturation % 34 16 - 50 % 12/04/2024 10:48 AM [facility] TIBC Calculated 188(L) 240 - 450 ug/dL 12/04/2024 10:48 AM [facility] Blood BLOOD SPECIMEN / Unknown Venipuncture / Unknown 12/04/2024 9:38 AM ACTIVITIES COUNSELOR 12/04/2024 10:15 AM ACTIVITIES COUNSELOR Juancarlos Lujan MD LAB - CHEMISTRY JOHN PAUL RIVAS [address] [address], [facility] [phone] * (ABNORMAL) FERRITIN (12/04/2024 9:38 AM ACTIVITIES COUNSELOR) Ferritin 339(H) 22 - 275 ng/mL 12/04/2024 11:05 AM [facility] Blood BLOOD SPECIMEN / Unknown Venipuncture / Unknown 12/04/2024 9:38 AM ACTIVITIES COUNSELOR 12/04/2024 10:15 AM ACTIVITIES COUNSELOR Juancarlos Lujan MD LAB - CHEMISTRY ORDUlysses RIVAS Performing Organization Address City/[facility]/ZIP Co de Phone Number [address] [address], [place] [phone] * (ABNORMAL) URINALYSIS REFLEX MICROSCOPIC REFLEX CULTURE (12/04/2024 12:17 AM ACTIVITIES COUNSELOR) Only the most recent of2 resultswithin the time period is included. Color UA Yellow Straw, Yellow 12/04/2024 12:33 AM [facility] Clarity UA Clear Clear 12/04/2024 12:33 AM [facility] Specific [place] UA 1.010 1.005 - 1.030 12/04/2024 12:33 AM [facility] pH UA 5.0 5.0 - 8.0 pH 12/04/2024 12:33 AM [facility] Protein UA Negative Negative 12/04/2024 12:33 AM [facility] Glucose UA 1+(A) Negative 12/04/2024 12:33 AM [facility] Ketone UA Negative Negative 12/04/2024 12:33 AM [facility] Bilirubin UA Negative Negative 12/04/2024 12:33 AM [facility] Blood UA Negative Negative 12/04/2024 12:33 AM [facility] Nitrite UA Negative Negative 12/04/2024 12:33 AM [facility] Leukocyte Esterase Negative Negative 12/04/2024 12:33 AM [facility] Urobilinogen UA Negative Negative mg/dL 12/04/2024 12:33 AM [facility] Comment UA Microscopic not indicated. 12/04/2024 12:33 AM [facility] Urine URINE SPECIMEN OBTAINED BY CLEAN CATCH PROCEDURE / Unknown Collection / Unknown 12/04/2024 12:17 AM ACTIVITIES COUNSELOR 12/04/2024 12:22 AM ACTIVITIES COUNSELOR Narrative [facility] - 12/04/2024 12:33 AM ACTIVITIES COUNSELOR Sarika Martin PA-C LAB - URINALY SIS ORDERABLES [facility] [address] [phone], [facility] [phone] * LYTES (NA K CL) URINE RANDOM PANEL (12/04/2024 12:17 AM ACTIVITIES COUNSELOR) Sodium Urine 52 Not Established mmol/L 12/04/2024 12:47 AM [facility] Potassium Urine 22.9 Not Established mmol/L 12/04/2024 12:47 AM [facility] Chloride Random Urine 82 Not Established mmol/L 12/04/2024 12:47 AM [facility] Urine URINE SPECIMEN OBTAINED BY CLEAN CATCH PROCEDURE / Unknown Collection / Unknown 12/04/2024 12:17 AM ACTIVITIES COUNSELOR 12/04/2024 12:22 AM ACTIVITIES COUNSELOR Juancarlos Lujan MD LAB - URINE CHEMISTR Y ORDERABLES [address] [address], [facility] [phone] * CREATININE URINE RANDOM (12/04/2024 12:17 AM ACTIVITIES COUNSELOR) Creatinine Urine 55.70 Not Established mg/dL 12/04/2024 12:47 AM ACTIVITIES COUNSELOR [facility] Urine URINE SPECIMEN OBTAINED BY CLEAN CATCH PROCEDURE / Unknown Collection / Unknown 12/04/2024 12:17 AM ACTIVITIES COUNSELOR 12/04/2024 12:22 AM ACTIVITIES COUNSELOR Juancarlos Lujan MD LAB - URINE CHEMISTR Y ORDERABLES Performing Organization Address City/[facility]/ZIP Co de Phone Number [address] [address], [facility] [phone] * CULTURE BLOOD (12/03/2024 6:17 PM ACTIVITIES COUNSELOR) Only the most recent of4 resultswithin the time period is included. Culture No growth day 5 ADOLPH 12/08/2024 11:01 PM ACTIVITIES COUNSELOR [facility] MICROBIOLOGY Blood PERIPHERAL BLOOD / Unknown Lab Venipuncture / Unknown 12/03/2024 6:17 PM ACTIVITIES COUNSELOR 12/03/2024 6:39 PM ACTIVITIES COUNSELOR Homer Moran MD LAB - MICROBIO LOGY ORDERABLES Performing Organization Address City/[facility]/ZIP Co de Phone Number [facility] MICROBIOLOGY [address] [place] [address], [facility] [phone] * CT Head Wo Contrast (12/03/2024 4:56 PM ACTIVITIES COUNSELOR) Only the most recent of3 resultswithin the time period is included. Anatomical Region Laterality Modality Head Computed Tomogra phy 12/03/2024 5:00 PM ACTIVITIES COUNSELOR Impressions 12/03/2024 5:01 PM ACTIVITIES COUNSELOR IMPRESSION: 1. No acute intracranial process. > Interpreting Provider: Abraham Mahajan MD on 12/03/2024 5:01 PM Narrative 12/03/2024 5:01 PM ACTIVITIES COUNSELOR PROCEDURE: CT HEAD WO CONTRAST DATE/TIME OF [...] extra-axial fluid collections are identified. There is [id number]-[id number] cerebral volume loss with associated ex vacuo [...] or extra-axial fluid collections are identified. Thereis dkdh-rn-bwehliqh cerebral volume loss with associated ex vacuoventricular [...] HIGH SENSITIVE REFLEX 1HOUR (12/03/2024 3:26 PM ACTIVITIES COUNSELOR) Only the most recent of2 resultswithin the time period is included. [facility] Troponin I High Sensitive 11 <=35 ng/L 12/03/2024 4:33 PM ACTIVITIES COUNSELOR [facility] Delta Troponin I HS 12/03/2024 4:33 PM ACTIVITIES COUNSELOR [facility] Comment:Delta value intentio santy not calculated. Baseline to 1 hour specimen collection interval exceeded. Blood BLOOD SPECIMEN / Unknown Venipuncture / Unknown 12/03/2024 3:26 PM ACTIVITIES COUNSELOR 12/03/2024 3:56 PM ACTIVITIES COUNSELOR Sarika Martin PA-C LAB - BIOINFORMATICS SPECIALIST RY ORDERABLES [facility] [address] [place] [id number], [facility] [phone] * SARS-COV-2 (COVID-19) FLU A/B RSV PCR RAPID (12/03/2024 12:36 PM ACTIVITIES COUNSELOR) [facility] COVID-19 PCR Not detected Not detected 12/03/19 1:56 PM ACTIVITIES COUNSELOR [facility] Influenza A PCR Not detected Not detected 12/03/2024 1:56 PM ACTIVITIES COUNSELOR [facility] Influenza B PCR Not detected Not detected 12/03/2024 1:56 PM ACTIVITIES COUNSELOR [facility] RSV PCR Not detected Not detected 12/03/2024 1:56 PM ACTIVITIES COUNSELOR [facility] Microbiology SPECIMEN FROM NASOPHARYNGEAL STRUCTURE / Unknown Collection / Unknown 12/03/2024 12:36 PM ACTIVITIES COUNSELOR 12/03/2024 12:40 PM ACTIVITIES COUNSELOR Narrative [facility] - 12/03/2024 1:56 PM ACTIVITIES COUNSELOR This nucleic acid amplification assay has been [...] EUA assay are available upon request. Sarika GALVIN-C LAB - MICROBI OLOGY ORDERABLES [address] [address], [facility] [phone] * PTT [facility] (12/03/2024 12:35 PM ACTIVITIES COUNSELOR) APTT 26.4 23.0 - 38.4 Seconds 12/03/2024 1:06 PM ACTIVITIES COUNSELOR [facility] Comment:Suggested therapeuti c range for full dose I.V. unfractionated heparin therapy for venous thromboembolism is 71 to 109 seconds. Blood BLOOD SPECIMEN / Unknown Venipuncture / Unknown 12/03/2024 12:35 PM ACTIVITIES COUNSELOR 12/03/2024 12:43 PM ACTIVITIES COUNSELOR Sarika Carvajal[facility] PA-C LAB - COAGULA TION ORDERABLES [address] [address], [place] [phone] * PT-INR [facility] (12/03/2024 12:35 PM ACTIVITIES COUNSELOR) Only the most recent of9 resultswithin the time period is included. PT 14.7 12.1 - 14.8 Seconds 12/03/2024 1:06 PM ACTIVITIES COUNSELOR [facility] INR 1.2 See Comment 12/03/2024 1:06 PM ACTIVITIES COUNSELOR [facility] Comment:The suggested therap eutic range for standard coumadin (warfarin) therapy is an INR of 2.0-3.0. For high-risk patients (Mechanical Mitral Valve Prosthesis, etc.), the suggested prophylactic therapeutic range is an INR of 2.5-3.5. Blood BLOOD SPECIMEN / Unknown Venipuncture / Unknown 12/03/2024 12:35 PM ACTIVITIES COUNSELOR 12/03/2024 12:43 PM ACTIVITIES COUNSELOR Sarika Martin PA-C LAB - COAGULA TION ORDERABLES Performing Organization Address City/[facility]/ZIP Co de Phone Number [address] [address], [facility] [phone] * TROPONIN-I HIGH SENSITIVE BASELINE + 1HR (12/03/2024 12:35 PM ACTIVITIES COUNSELOR) Only the most recent of2 resultswithin the time period is included. Troponin I High Sensitive 11 <=35 ng/L 12/03/2024 1:15 PM ACTIVITIES COUNSELOR [facility] Blood BLOOD SPECIMEN / Unknown Venipuncture / Unknown 12/03/2024 12:35 PM ACTIVITIES COUNSELOR 12/03/2024 12:42 PM ACTIVITIES COUNSELOR Sarika Martin PA-C LAB - BIOINFORMATICS SPECIALIST RY ORDERABLES [address] [address], [facility] [phone] * AMMONIA (12/03/2024 12:35 PM ACTIVITIES COUNSELOR) Only the most recent of4 resultswithin the time period is included. Ammonia 51 <=72 umol/L 12/03/2024 12:55 PM ACTIVITIES COUNSELOR [facility] Blood BLOOD SPECIMEN / Unknown Venipuncture / Unknown 12/03/2024 12:35 PM ACTIVITIES COUNSELOR 12/03/2024 12:55 PM ACTIVITIES COUNSELOR Sarika Martin PA-C LAB - BIOINFORMATICS SPECIALIST RY ORDERABLES Performing Organization Address [facility]/ZIP Co de Phone Number [facility] [place] [id number] [place] [address], [facility] [phone] * EKG 12-LEAD (12/03/2024 12:21 PM ACTIVITIES COUNSELOR) Only the most recent of2 resultswithin the time period is included. Ventricular Rate 66 BPM [facility] MUSE Atrial Rate 66 BPM [facility] MUSE P-R Interval 110 ms [facility] MUSE QRS Duration ms 86 ms [facility] MUSE Q-T Interval ms 378 ms [facility] MUSE QTC Calculation (Bezet) 396 ms [facility] MUSE Calculated P Somers 15 degrees [facility] MUSE Calculated T Somers 85 degrees [facility] MUSE Interpretation EKG SINUS RHYTHM POSSIBLE INFERIOR INFARCT , AGE UNDETERMINED ANTERIOR INFARCT (CITED ON OR BEFORE 30-AUG-2024) ABNORMAL ECG WHEN COMPARED WITH ECG OF 06-NOV-2024 15:17, BORDERLINE CRITERIA FOR INFERIOR INFARCT ARE NOW PRESENT Confirmed by [facility] ([id number] on 12/13/2024 11:34:09 AM [facility] MUSE 12/03/2024 12:2 1 PM ACTIVITIES COUNSELOR 12/13/2024 11:34 AM ACTIVITIES COUNSELOR Sarika Martin PA-C ECG ORDERABLE S Performing Organization Address [facility] de Phone Number [facility] MUSE * XR CHEST 2VW (12/03/2024 11:24 AM ACTIVITIES COUNSELOR) Anatomical Region Laterality Modality Chest Digital Radiogra phy 12/03/2024 11:4 7 AM ACTIVITIES COUNSELOR Narrative 12/03/2024 11:53 AM ACTIVITIES COUNSELOR PROCEDURE: XR CHEST 2VW, DATE/TIME OF EXAM: 12/03/2024 11:33 AM, LOCATION [facility] INDICATION: R41.82: Altered mental status, [...] report was drafted by Yaw Alvarez MD (student services vice president) 12/03/2024 11:47 AM. Candice Haddad MD have personally reviewed and interpreted this examination/study. > Interpreting Provider: Candice Gordon MD on 12/03/2024 11:53 AM Procedure Note Candice Gordon MD - 12/03/2024 PROCEDURE: XR CHEST 2VW, DATE/TIME OF EXAM: 12/03/2024 11:33 AM, LOCATION [facility] INDICATION: R41.82: Altered mental status, [...] report was drafted by Yaw Alvarez MD (student services vice president) 12/03/2024 11:47 AM. Candice Haddad MD have personally reviewed and interpreted this examination/study. > Interpreting Provider: Candice Gordon MD on 12/03/2024 11:53 AM Sarika Martin PA-C DIAGNOSTIC IM AGING ORDERABLES * SYPHILIS ANTIBODY CASCADING REFLEX (11/07/2024 4:27 AM ACTIVITIES COUNSELOR) Treponema pallidum Antibody Non-react pepe Non-react pepe 11/07/2024 5:23 AM ACTIVITIES COUNSELOR [facility] Comment: No Laboratory evidence of syphilis infection. Note: Circulating antibodies may be low or undetectable in early infection. If recent exposure is suspected, re-draw sample in 2-4 weeks and repeat testing. Blood BLOOD SPECIMEN / Unknown Venipuncture / Unknown 11/07/2024 4:27 AM ACTIVITIES COUNSELOR 11/07/2024 4:37 AM ACTIVITIES COUNSELOR Juancarlos Lujan MD LAB - SEROLOGY ORDER DENISE [address] [address], [facility] [phone] * HIV-1 HIV-2 ANTIBODY + HIV P24 AG PANEL (11/07/2024 4:27 AM ACTIVITIES COUNSELOR) HIV Antigen/Antibod y 1 & 2 Non-reacti ve Non-react pepe 11/07/2024 5:23 AM ACTIVITIES COUNSELOR [facility] Comment:No Laboratory eviden ce of HIV infection. Blood BLOOD SPECIMEN / Unknown Venipuncture / Unknown 11/07/2024 4:27 AM ACTIVITIES COUNSELOR 11/07/2024 4:37 AM ACTIVITIES COUNSELOR Juancarlos Lujan MD LAB - CHEMISTRY ORDE EVELYN [address] [address], [place] [phone] * TSH REFLEX FREE T4 (11/07/2024 4:27 AM ACTIVITIES COUNSELOR) TSH 0.697 0.350 - 4.940 uIU/mL 11/07/2024 5:41 AM ACTIVITIES COUNSELOR [facility] Blood BLOOD SPECIMEN / Unknown Venipuncture / Unknown 11/07/2024 4:27 AM ACTIVITIES COUNSELOR 11/07/2024 4:39 AM ACTIVITIES COUNSELOR Juancarlos Lujan MD LAB - CHEMISTRY JOHN PAUL RIVAS Performing Organization Address City/[facility]/ZIP Co de Phone Number [facility] [address] [place] [address], [facility] [phone] * VITAMIN B1 (11/07/2024 4:27 AM ACTIVITIES COUNSELOR) Pathologist [facility] Vitamin B1 Whole Blood 96 70 - 180 nmol/L 11/09/2024 12:56 PM ACTIVITIES COUNSELOR [facility] [employer] ([facility]) Comment: INTERPRETIVE INFORMATION: Vitamin B1, Whole Blood This assay measures the concentration of thiamine diphosphate (TDP), the primary active form of vitamin B1. Approximately 90 percent of vitamin B1 present in whole blood is TDP. Thiamine and thiamine monophosphate, which comprise the remaining 10 percent, are not measured. This test was developed and its performance characteristics determined by [facility]. It has not been cleared or approved by the [place] Food and Drug Administration. This test was performed in a CLIA certified laboratory and is intended for clinical purposes. Performed By: [facility] [address] [place] [address] Electric Tape Slitter: Armando Lowe MD, PhD CLIA Number: [id number] Blood BLOOD SPECIMEN / Unknown Venipuncture / Unknown 11/07/2024 4:27 AM ACTIVITIES COUNSELOR 11/07/2024 4:37 AM ACTIVITIES COUNSELOR Juancarlos Lujan MD LAB - CHEMISTRY JOHN PAUL RIVAS Performing Organization Address City/[facility]/ZIP Co de Phone Number [facility] [employer] [facility]) [address] * (ABNORMAL) URINALYSIS W/MICROSCOPIC REFLEX TO CULTURE (11/06/2024 11:44 PM ACTIVITIES COUNSELOR) Only the most recent of2 resultswithin the time period is included. Color UA Yellow Straw, Yellow 11/07/2024 12:16 AM ACTIVITIES COUNSELOR [facility] Clarity UA Clear Clear 11/07/2024 12:16 AM ACTIVITIES COUNSELOR [facility] Specific [place] UA 1.011 1.005 - 1.030 11/07/2024 12:16 AM [facility] pH UA 5.0 5.0 - 8.0 pH 11/07/2024 12:16 AM [facility] Protein UA Negative Negative 11/07/2024 12:16 AM [facility] Glucose UA 3+(A) Negative 11/07/2024 12:16 AM [facility] Ketone UA Negative Negative 11/07/2024 12:16 AM [facility] Bilirubin UA Negative Negative 11/07/2024 12:16 AM [facility] Blood UA Negative Negative 11/07/2024 12:16 AM [facility] Nitrite UA Negative Negative 11/07/2024 12:16 AM [facility] Leukocyte Esterase Negative Negative 11/07/2024 12:16 AM [facility] Urobilinogen UA Negative Negative mg/dL 11/07/2024 12:16 AM [facility] RBC UA 0-2 None Seen, 0-2, 3-5 /HPF 11/07/2024 12:16 AM [facility] WBC UA 0-5 None Seen, 0-5 /HPF 11/07/2024 12:16 AM [facility] Bacteria UA Trace(A) None /HPF 11/07/2024 12:16 AM [facility] Squamous Epithelial Cells UA None Seen None Seen, 0-2, 3-5 /HPF 11/07/2024 12:16 AM [facility] Mucus UA 1+ /LPF 11/07/2024 12:16 AM [facility] Hyaline Casts UA 0-2 None Seen, 0-2 /LPF 11/07/2024 12:16 AM [facility] Urine URINE SPECIMEN OBTAINED BY CLEAN CATCH PROCEDURE / Unknown Collection / Unknown 11/06/2024 11:44 PM ACTIVITIES COUNSELOR 11/07/2024 12:04 AM [facility] - 11/07/2024 12:16 AM [facility] Culture Not Indicated Paris Quintero VP CORPORATE DEVELOPMENT-HOUSE MOVER SUPERVISOR LAB - URINALY SIS ORDERABLES [facility] [address] [place] [address], [facility] [phone] * URINE DRUG SCREEN IMMUNOASSAY (11/06/2024 11:43 PM [facility]) [facility] Amphetamines Screen Urine Negative Negative: < 1000 ng/mL 11/07/2024 12:43 AM [facility] Barbiturates Screen Urine Negative Negative: < 200 ng/mL 11/07/2024 12:43 AM [facility] Benzodiazepine Screen Urine Negative Negative: < 200 ng/mL 11/07/2024 12:43 AM [facility] Opiates Urine Negative Negative: < 300 ng/mL 11/07/2024 12:43 AM [facility] Cocaine Metabolites Urine Negative Negative: < 300 ng/mL 11/07/2024 12:43 AM [facility] Phencyclidine Screen Urine Negative Negative: < 25 ng/ml 11/07/2024 12:43 AM [facility] Cannabinoids Screen Urine Negative Negative: <50 ng/mL 11/07/2024 12:43 AM [facility] Methadone Screen Urine Negative Negative: < 300 ng/mL 11/07/2024 12:43 AM [facility] Fentanyl Screen Urine Negative Negative: <1.5 ng/mL 11/07/2024 12:43 AM [facility] Urine URINE / Unknown Collection / Unknown 11/06/2024 11:43 PM [facility] 11/07/2024 12:04 AM [facility] - 11/07/2024 12:43 AM [facility] The Urine Toxicology Screening Panel does not screen for Propoxyphene, Meprobamate, Carisoprodol, Trazodone, affp-uhb-hswtncl medications and/or volatiles (Acetone, Isopropanol, Methanol or Ethylene Glycol). Ethanol, Salicylate, Acetaminophen, Tricyclic Antidepressants and several therapeutic drugs may be individually assayed in serum or plasma specimen. Toxicology testing by the [facility] is an aid to medical diagnosis and treatment of patients. No documented chain of custody was maintained. Results are intended to be used for clinical purposes only. Juancarlos Lujan MD LAB - URINE CHEMISTR Y ORDERABLES [facility] [address] [place] [address], [facility] [phone] * PROTEIN BODY FLUID (11/06/2024 8:27 PM ACTIVITIES COUNSELOR) Protein Fluid 1.2 Not Established For Fluids g/dL 11/06/2024 9:22 PM ACTIVITIES COUNSELOR [facility] Fluid Type Peritoneal Fluid 11/06/2024 9:22 PM ACTIVITIES COUNSELOR [facility] Fluid PERITONEAL FLUID / Unknown Collection / Unknown 11/06/2024 8:27 PM ACTIVITIES COUNSELOR 11/06/2024 8:32 PM ACTIVITIES COUNSELOR Narrative [facility] - 11/06/2024 9:22 PM ACTIVITIES COUNSELOR The analytical performance of this test has been independently validated by the laboratory. A reference range has not been established for this fluid. Comparison of this result with the concentration in blood, serum or plasma is recommended. Homer Hallman MD LAB - BODY FLUID ORD ERABLES Performing Organization Address City/[facility]/ZIP Co de Phone Number [address] [address], [facility] [phone] * GLUCOSE BODY FLUID (11/06/2024 8:27 PM ACTIVITIES COUNSELOR) Glucose Fluid 126 Not Established For Fluids mg/dL 11/06/2024 9:55 PM ACTIVITIES COUNSELOR [facility] Fluid Type Peritoneal Fluid 11/06/2024 9:55 PM ACTIVITIES COUNSELOR [facility] Fluid PERITONEAL FLUID / Unknown Collection / Unknown 11/06/2024 8:27 PM ACTIVITIES COUNSELOR 11/06/2024 8:32 PM ACTIVITIES COUNSELOR Narrative [facility] - 11/06/2024 9:55 PM ACTIVITIES COUNSELOR The analytical performance of this test has been independently validated by the laboratory. A reference range has not been established for this fluid. Comparison of this result with the concentration in blood, serum or plasma is recommended. Homer Hallman MD LAB - BODY FLUID ORD ERABLES [address] [address], [facility] [phone] * DIFFERENTIAL MANUAL FLUID (11/06/2024 8:27 PM ACTIVITIES COUNSELOR) Only the most recent of2 resultswithin the time period is included. Fluid Source Peritoneal 11/06/2024 10:05 PM [facility] Body Fluid Total Cell Count 100 x10E6/L 11/06/2024 10:05 PM [facility] Neutrophils Fluid Percent 16 % 11/06/2024 10:05 PM [facility] Lymphocytes Fluid Percent 43 % 11/06/2024 10:05 PM [facility] Comment:Reactive Lymphocytes present. Macrophages Fluid Percent 36 % 11/06/2024 10:05 PM [facility] Eosinophils Fluid Percent 5 % 11/06/2024 10:05 PM [facility] Fluid PERITONEAL FLUID / Unknown Collection / Unknown 11/06/2024 8:27 PM ACTIVITIES COUNSELOR 11/06/2024 8:32 PM [facility] - 11/06/2024 10:05 PM ACTIVITIES COUNSELOR No reference ranges established for body fluid differential cell counts. The test results must be integrated into the clinical context for interpretation. Homer Hallman MD LAB - BODY FLUID ORD ERABLES [facility] [address] [place] [address], [facility] [phone] * CELL COUNT W DIFFERENTIAL FLUID (11/06/2024 8:27 PM ACTIVITIES COUNSELOR) Only the most recent of2 resultswithin the time period is included. Fluid Source Peritoneal 11/06/2024 10:05 PM [facility] Fluid Appearance SLIGHTLY HAZY 11/06/2024 10:05 PM [facility] Fluid Color PALE YELLOW 11/06/2024 10:05 PM [facility] Total Nucleated Cells Fluid 92 Reference Range Not Established x10E6/L 11/06/2024 10:05 PM [facility] RBC Count Fluid <2,000 Reference Range Not Established x10E6/L 11/06/2024 10:05 PM [facility] Fluid PERITONEAL FLUID / Unknown Collection / Unknown 11/06/2024 8:27 PM ACTIVITIES COUNSELOR 11/06/2024 8:32 PM [facility] - 11/06/2024 10:05 PM ACTIVITIES COUNSELOR No reference ranges established for body fluid cell counts. Any reference ranges provided are derived from published literature. The test results must be integrated into the clinical context for interpretation. Homer Hallman MD LAB - BODY FLUID ORD ERABLES [facility] [address] [place] [address], [facility] [phone] * (ABNORMAL) CULTURE FLUID+GRAM STAIN (11/06/2024 8:15 PM ACTIVITIES COUNSELOR) Only the most recent of2 resultswithin the time period is included. Culture Light Achromobacter species(AA) ADOLPH 11/10/2024 4:24 AM [facility] Comment:Isolate is multi atmmy g resistant organism (MDRO). Gram Stain Light Red blood cells 11/10/2024 4:24 AM [facility] Gram Stain Rare Polymorphonuclear cells 11/10/2024 4:24 AM [facility] Gram Stain No organisms seen 025 4:24 AM [facility] Other PERITONEAL FLUID / Unknown Collection / Unknown 11/06/2024 8:15 PM ACTIVITIES COUNSELOR 11/06/2024 8:32 PM ACTIVITIES COUNSELOR Narrative [facility]CRO[facility] - 11/10/2024 4:24 AM ACTIVITIES COUNSELOR This isolate is a multidrug resistant organism [...] Hallman MD LAB - MICROBIOLOGY O RDERABLES [facility] MICROBIOLOGY [address] [place] [address], [facility] [phone] * Paracentesis (11/06/2024 6:28 PM ACTIVITIES COUNSELOR) Narrative Homer Hallman MD - 11/06/2024 6:28 PM ACTIVITIES COUNSELOR Homer Hallman MD 11/06/2024 8:11 PM Paracentesis [...] (COVID-19)+INFLU A+B PCR RAPID (11/06/2024 3:40 PM ACTIVITIES COUNSELOR) COVID-19 PCR Not detected Not detected 11/06/19 5:10 PM ACTIVITIES COUNSELOR [facility] Influenza A Rapid JOHNNIE Not Detected Not Detected 11/06/2024 5:10 PM ACTIVITIES COUNSELOR [facility] Influenza B JOHNNIE Rapid Not Detected Not Detected 11/06/2024 5:10 PM ACTIVITIES COUNSELOR [facility] Microbiology SPECIMEN FROM NASOPHARYNGEAL STRUCTURE / Unknown Collection / Unknown 11/06/2024 3:40 PM ACTIVITIES COUNSELOR 11/06/2024 4:29 PM ACTIVITIES COUNSELOR Narrative [facility] - 11/06/2024 5:10 PM ACTIVITIES COUNSELOR Influenza assay performed by [employer]. [...] acid amplification assay performance was validated by [facility]. This test has been authorized by the [...] Hallman MD LAB - MICROBIOLOGY O RDERABLES [address] [address], [facility] [phone] * XR Chest 1Vw Portable (11/06/2024 2:29 PM ACTIVITIES COUNSELOR) Only the most recent of2 resultswithin the time period is included. Anatomical Region Laterality Modality Chest Digital Radiogra phy 11/06/2024 2:35 PM ACTIVITIES COUNSELOR Narrative 11/06/2024 2:46 PM ACTIVITIES COUNSELOR PROCEDURE: XR CHEST 1VW PORTABLE, DATE/TIME OF EXAM: 11/06/2024 2:30 PM, LOCATION [facility] INDICATION: G93.40: Encephalopathy, unspecified type [...] pneumothorax. Report dictated by Jonathan Torres MD, (Lead Assembler). Christophe Haddad MD have personally reviewed and interpreted this examination/study. > Interpreting Provider: Christophe Rahman MD on 11/06/2024 2:46 PM Procedure Note Christophe Rahman MD - 11/06/2024 PROCEDURE: XR CHEST 1VW PORTABLE, DATE/TIME OF EXAM: 11/06/2024 2:30 PM, LOCATION [facility] INDICATION: G93.40: Encephalopathy, unspecified type [...] pneumothorax. Report dictated by Jonathan Torres MD, (Lead Assembler). Christophe Haddad MD have personally reviewed and interpreted this examination/study. > Interpreting Provider: Christophe Rahman MD on 11/06/2024 2:46 PM Homer Hallman MD DIAGNOSTIC IMAGING O RDERABLES * LIPASE BLOOD (11/06/2024 12:54 PM ACTIVITIES COUNSELOR) Lipase 16 8 - 78 U/L 11/06/2024 1:37 PM ACTIVITIES COUNSELOR [facility] Blood BLOOD SPECIMEN / Unknown Venipuncture / Unknown 11/06/2024 12:54 PM ACTIVITIES COUNSELOR 11/06/2024 1:07 PM ACTIVITIES COUNSELOR Narrative [facility] - 11/06/2024 1:37 PM ACTIVITIES COUNSELOR Lipase results from the [employer] analyzer may not be comparable with other methodologies. Paris Quintero APRN-HOUSE MOVER SUPERVISOR LAB - BIOINFORMATICS SPECIALIST RY ORDERABLES [facility] [address] [place] [address], [facility] [phone] * (ABNORMAL) CBC W/O DIFFERENTIAL (10/28/2024 6:14 AM ACTIVITIES COUNSELOR) Only the most recent of5 resultswithin the time period is included. WBC 3.0(L) 4.0 - 10.7 x10E9/L 10/28/2024 6:55 AM [facility] RBC Count 2.87(L) 4.30 - 5.80 x10E12/L 10/28/2024 6:55 AM [facility] Hemoglobin 8.9(L) 13.3 - 17.5 g/dL 10/28/2024 6:55 AM [facility] Hematocrit 26.5(L) 38.7 - 51.1 % 10/28/2024 6:55 AM [facility] MCV 92.3 80.0 - 98.0 fL 10/28/2024 6:55 AM [facility] MCH 31.0 26.7 - 33.6 pg 10/28/2024 6:55 AM [facility] MCHC 33.6 31.7 - 36.3 g/dL 10/28/2024 6:55 AM [facility] RDW-CV 16.5(H) 11.3 - 14.8 % 10/28/2024 6:55 AM [facility] Platelet Count 109(L) 150 - 420 x10E9/L 10/28/2024 6:55 AM [facility] MPV 10.9 7.8 - 11.4 fL 10/28/2024 6:55 AM [facility] Blood BLOOD SPECIMEN / Unknown Lab Venipuncture / Unknown 10/28/2024 6:14 AM ACTIVITIES COUNSELOR 10/28/2024 6:39 AM ACTIVITIES COUNSELOR Rigoberto Mcclain MD LAB - HEMATOLOGY ORD ERABLES [facility] [address] [place] [address], [facility] [phone] * (ABNORMAL) VITAMIN D 1,25 DIHYDROXY (10/26/2024 4:00 AM ACTIVITIES COUNSELOR) Vitamin D, 1,25 Dihydroxy 18.8(L) 19.9 - 79.3 pg/mL 10/29/2024 12:19 AM ACTIVITIES COUNSELOR [facility] ([facility]) Comment: INTERPRETIVE INFORMATION: Vitamin D, 1,25-Dihydroxy This test is primarily indicated during patient evaluation for hypercalcemia and renal failure. A normal result does not rule out Vitamin D deficiency. The recommended test for diagnosing Vitamin D deficiency is Vitamin D 25-hydroxy. Performed By: [employer] [address] [place] [address] Electric Tape Slitter: Armando Lowe MD, PhD CLIA Number: [id number] Blood BLOOD SPECIMEN / Unknown Venipuncture / Unknown 10/26/2024 4:00 AM ACTIVITIES COUNSELOR 10/26/2024 4:10 AM ACTIVITIES COUNSELOR Shravan Jessica MD LAB - CHEMISTRY OR DERABLES Performing Organization Address City/[facility]/ZIP Co de Phone Number [facility]) [address] [place] [address] * SODIUM URINE RANDOM (10/25/2024 10:40 AM ACTIVITIES COUNSELOR) Pathologist [facility] Sodium Urine 30 Not Established mmol/L 10/25/2024 11:05 AM ACTIVITIES COUNSELOR [facility] Urine URINE SPECIMEN OBTAINED BY CLEAN CATCH PROCEDURE / Unknown Collection / Unknown 10/25/2024 10:40 AM ACTIVITIES COUNSELOR 10/25/2024 10:47 AM ACTIVITIES COUNSELOR Shravan Jessica MD LAB - URINE CHEMIS TRY ORDERABLES [address] [address], [facility] [phone] * US Abdomen Ltd W Comp Doppler (10/25/2024 8:20 AM ACTIVITIES COUNSELOR) Anatomical Region Laterality Modality Abdomen Ultrasound 10/25/2024 12:3 6 PM ACTIVITIES COUNSELOR Impressions 10/27/2024 1:43 AM ACTIVITIES COUNSELOR IMPRESSION: 1.Hepatic cirrhosis with sequela of portal hypertension including moderate to large volume ascites. 2.Mildly decreased velocity of flow within the main portal vein (13.9 cm/s). No portal vein thrombosis. Otherwise, normal hepatic Doppler evaluation. 3.No evidence of cholelithiasis or acute cholecystitis. > Dictated by Tom Barreto DO,(radiology technician). I, Lalo St MD have personally reviewed and interpreted this examination/study. > Interpreting Provider: Lalo St MD on 10/27/2024 1:43 AM Narrative 10/27/2024 1:43 AM ACTIVITIES COUNSELOR PROCEDURE: US ABDOMEN LTD W COMP DOPPLER, DATE/TIME OF EXAM: 10/25/2024 8:54 AM, LOCATION [facility] INDICATION: K76.82: Hepatic encephalopathy (HCC) [...] DOPPLER, DATE/TIME OF EXAM:10/25/2024 8:54 AM, LOCATION [facility] INDICATION: K76.82: Hepatic encephalopathy (HCC) [...] acute cholecystitis. > Dictated by Tom Barreto DO,(radiology technician). I, Lalo St MD have personally reviewed and interpreted this examination/study. > Interpreting Provider: Lalo St MD on 10/27/2024 1:43 AM Rigoberto Mcclain MD US ORDERABLES * PTH INTACT W/O CALCIUM (10/25/2024 4:54 AM ACTIVITIES COUNSELOR) PTH Intact 13.2 8.0 - 77.0 pg/mL 10/25/2024 6:19 AM ACTIVITIES COUNSELOR [facility] Blood BLOOD SPECIMEN / Unknown Lab Venipuncture / Unknown 10/25/2024 4:54 AM ACTIVITIES COUNSELOR 10/25/2024 5:46 AM ACTIVITIES COUNSELOR Rigoberto Mcclain MD LAB - CHEMISTRY [facility] PA[facility] RIVAS [facility] [address] [place] [address], [facility] [phone] * (ABNORMAL) PTH RELATED PEPTIDE (10/25/2024 4:54 AM ACTIVITIES COUNSELOR) PTH Related Peptide 3.1(H) 0.0 - 2.3 pmol/L 11/03/2024 1:05 PM ACTIVITIES COUNSELOR [place] ([facility]) Comment: INTERPRETIVE INFORMATION: Parathyroid Hormone-Related Peptide This test was developed and its performance characteristics determined by [facility]. It has not been cleared or approved by the [place] Food and Drug Administration. This test was performed in a CLIA certified laboratory and is intended for clinical purposes. Performed By: [facility] [address] [place] [address] Electric Tape Slitter: Armando Lowe MD, PhD CLIA Number: [id number] Blood BLOOD SPECIMEN / Unknown Lab Venipuncture / Unknown 10/25/2024 4:54 AM ACTIVITIES COUNSELOR 10/25/2024 5:29 AM ACTIVITIES COUNSELOR Rigoberto Mcclain MD LAB - CHEMISTRY [facility] [employer] [facility]) [address] [place] [address] * (ABNORMAL) VITAMIN D 25-HYDROXY (10/25/2024 4:54 AM ACTIVITIES COUNSELOR) Vitamin D, 25 Hydroxy 27.0(L) 30.0 - 80.0 ng/mL 10/25/2024 6:33 AM ACTIVITIES COUNSELOR [facility] Comment: The recommendations for 25-Hydroxy Vitamin D [...] Lab Venipuncture / Unknown 10/25/2024 4:54 AM ACTIVITIES COUNSELOR 10/25/2024 5:29 AM ACTIVITIES COUNSELOR Rigoberto Mcclain MD LAB - CHEMISTRY [facility] PAUL RIVAS Performing Organization Address City/[facility]/ZIP Co de Phone Number [address] [address], [facility] [phone] * LDH BLOOD (10/25/2024 4:54 AM ACTIVITIES COUNSELOR) LDH Total 203 125 - 243 Units/L 10/25/2024 6:19 AM [facility] Blood BLOOD SPECIMEN / Unknown Lab Venipuncture / Unknown 10/25/2024 4:54 AM ACTIVITIES COUNSELOR 10/25/2024 5:29 AM ACTIVITIES COUNSELOR Rigoberto Mcclain MD LAB - CHEMISTRY [facility] PAUL RIVAS Performing Organization Address City/[facility]/ZIP Co de Phone Number [address] [address], [place] [phone] * (ABNORMAL) CALCIUM IONIZED WHOLE BLOOD (10/24/2024 8:47 AM ACTIVITIES COUNSELOR) Calcium Ionized 1.54 mmol/L 10/24/2024 9:03 AM [facility] pH 7.41 7.35 - 7.45 pH 10/24/2024 9:03 AM [facility] Ionized Calcium pH Adjusted 1.55(H) 1.19 - 1.34 mmol/L 10/24/2024 9:03 AM [facility] Blood BLOOD SPECIMEN / Unknown Lab Venipuncture / Unknown 10/24/2024 8:47 AM ACTIVITIES COUNSELOR 10/24/2024 8:58 AM ACTIVITIES COUNSELOR Rigoberto Mcclain MD LAB - CHEMISTRY JOHN PAUL RIVAS Performing Organization Address City/[facility]/ZIP Co de Phone Number [facility] [address] [place] [address], [facility] [phone] * (ABNORMAL) HEMOGLOBIN A1C (10/24/2024 8:47 AM ACTIVITIES COUNSELOR) Hemoglobin A1c 7.9(H) <=5.6 % 10/24/2024 12:41 PM ACTIVITIES COUNSELOR [facility] Estimated Average Glucose 180 mg/dL 10/24/2024 12:41 PM [facility] Comment: HbA1c Interpretation: Normal : < 5.7% Pre-diabetes: 5.7-6.4% Diabetes: Equal to or greater than 6.5% Test results diagnostic of diabetes should be repeated for confirmation. Treatment target values recommended by ADA and other clinical organizations should be used to evaluate metabolic control in patients. Reference: [place] [employer], Standards of Care in Diabetes -2020 In patients 70 years and older consider HbA1c target range of 7.0-7.5% (Reference: Armen López et al. JAMDA. 2012) The Sebia assay for the measurement of HbA1c is a National Glycohemoglobin Standardization Program (NGSP) certified method. Blood BLOOD SPECIMEN / Unknown Lab Venipuncture / Unknown 10/24/2024 8:47 AM ACTIVITIES COUNSELOR 10/24/2024 9:01 AM ACTIVITIES COUNSELOR Rigoberto Mcclain MD LAB - CHEMISTRY [facility] PAUL RIVAS [facility] [address] [place] [address], [facility] [phone] * LACTIC ACID BLOOD (10/24/2024 8:47 AM ACTIVITIES COUNSELOR) Lactic Acid-Stat 2.0 <=2.0 mmol/L 10/24/2024 9:33 AM ACTIVITIES COUNSELOR [facility] Blood BLOOD SPECIMEN / Unknown Lab Venipuncture / Unknown 10/24/2024 8:47 AM ACTIVITIES COUNSELOR 10/24/2024 9:02 AM ACTIVITIES COUNSELOR Rigoberto Mcclain MD LAB - CHEMISTRY [facility] PA[facility] RIVAS [facility] [address] [place] [address], [facility] [phone] * (ABNORMAL) BLOOD GASES REINA + COOX PANEL (10/23/2024 6:25 PM ACTIVITIES COUNSELOR) pH Venous 7.45(H) 7.32 - 7.42 pH 10/23/2024 6:44 PM [facility] pO2 Venous 86(H) 35 - 40 mmHg 10/23/2024 6:44 PM [facility] pCO2 Venous 23(L) 40 - 50 mmHg 10/23/2024 6:44 PM [facility] HCO3 Venous 16.0(L) 20 - 30 mmol/L 10/23/2024 6:44 PM [facility] Base Excess Venous -6.8(L) -2.0 - 2.0 mmol/L 10/23/2024 6:44 PM [facility] Oxyhemoglobin Venous 96.1 % 10/05 6:44 PM [facility] Deoxyhemoglobin (HHB) Venous % 2.1 % 10/23/2024 6:44 PM [facility] Methemoglobin 0.8 0.0 - 2.0 % 10/23/2024 6:44 PM [facility] Carboxyhemoglobin 1.0 0.0 - 2.0 % 2023 6:44 PM [facility] O2 Content Venous 12.4 Interpret within clinical context ml/dL 10/23/2024 6:44 PM [facility] Hemoglobin by COOX 9.1(L) 12.0 - 17.6 g/dL 10/23/2024 6:44 PM [facility] O2 Saturation Venous 98 >=70 % 10/05 6:44 PM [facility] FI O2 Mixed Venous 21.0 % 2023 6:44 PM [facility] Blood BLOOD SPECIMEN / Unknown Lab Venipuncture / Unknown 10/23/2024 6:25 PM ACTIVITIES COUNSELOR 10/23/2024 6:36 PM ACTIVITIES COUNSELOR Narrative [facility] - 10/23/2024 6:44 PM ACTIVITIES COUNSELOR Carboxyhemoglobin Normal Concentration: Non-smokers: 0-2%; Smokers: 0-9%; Toxic: >20% Rigoberto Mcclain MD LAB - BLOOD GASES OR DERABLES Performing Organization Address City/[facility]/ZIP Co de Phone Number [address] [address], [facility] [phone] * (ABNORMAL) LACTIC ACID BLOOD REFLEX TO REPEAT (10/23/2024 6:11 PM ACTIVITIES COUNSELOR) Only the most recent of3 resultswithin the time period is included. Lactic Acid-Stat 7.9(HH) <=2.0 mmol/L 10/23/2024 6:46 PM ACTIVITIES COUNSELOR [facility] Blood BLOOD SPECIMEN / Unknown Lab Venipuncture / Unknown 10/23/2024 6:11 PM ACTIVITIES COUNSELOR 10/23/2024 6:18 PM ACTIVITIES COUNSELOR Paris Quintero APRN-SUSAN LAB - BIOINFORMATICS SPECIALIST RY ORDERABLES Performing Organization Address City/[facility] Co de Phone Number [address] [address], [facility] [phone] * Paracentesis (10/23/2024 4:59 PM ACTIVITIES COUNSELOR) Narrative Muna Waller MD - 10/23/2024 4:59 PM ACTIVITIES COUNSELOR Elma Deutsch MD 10/23/2024 5:01 PM Paracentesis [...] 9:50 PM 09/02/2024 2:53 PM Care Teams Client Service Representative Relationship Specialty Start Date End Date Moses Conn MD [address] [place] [id number] PCP - General 01/04/23
--- OUTSIDE RECORDS SUMMARY | 2024-12-22 14:37 | XMS_ITS | Patient Health Summary ---
Author Organization [facility] Address [address] [place] [address] Care Team Providers [facility] Name Role Phone Moses Conn MD Primary Care Provider [phone] Note from [facility],non-owned Affiliates and Associated Physician Practices is amultiple site organization consisting of ambulatory clinics and hospital sitesin [place], [place], [place]. This disclosure is being madepursuant to the Care Everywhere program and may not contain all information available regarding this patient. Last updated 18.[facility] Allergies * Cefditoren(Rash) -Medium Criticality * Tetracycline(Rash) -Medium Criticality Medications * Be aware that medications may not be up to date on this document. Alwaysverify current medications with the patient. * omeprazole (PriLOSEC) 40 MG capsule(Started 05/09/2024) Take 1 (one) capsule by mouth two times daily at 4am and 4pm * acyclovir (Zovirax) 400 MG tablet Take 1 (one) tablet by mouth 2 times daily * sucralfate (Carafate) 1 GM tablet Take 1 (one) tablet by mouth 4 times daily * Jardiance 25 MG tablet Take 1 (one) tablet by mouth once daily * Other [facility] dietary supplement * vitamin D3 (Cholecalciferol) 25 MCG (1000 UNITS) tablet Take 1 (one) tablet by mouth once daily * fluticasone propionate (Flonase) 50 MCG/ACT nasal spray [place] 1 (one) spray into the nose once daily * cyanocobalamin (Vitamin B-12) 1000 MCG tablet Take 1 (one) tablet by mouth once daily * ferrous sulfate 325 (65 FE) MG tablet Take 1 (one) tablet by mouth once daily * simvastatin (Zocor) 20 MG tablet Take 1 (one) tablet by mouth once daily * Nutritional Supplement LIQD(Started 08/16/2024) Take 1 container by mouth 3 times daily High Calorie High Protein Supplement Examples: Ensure Enlive/Ensure Plus High Protein/Boost Plus/Equate Plus * carvedilol (Coreg) 6.25 MG tablet Take 1 (one) tablet by mouth 2 times daily with morning and evening meal * Nutritional Supplement LIQD(Started 09/02/2024) Take 1 container by mouth 3 times daily High Calorie High Protein Supplement Examples: Ensure Enlive/Ensure Plus High Protein/Boost Plus/Equate Plus * zinc gluconate 50 MG tablet(Started 09/02/2024) Take 1 (one) tablet by mouth 2 times daily for 90 days 2 refills by 09/02/2025 * lactulose (Chronulac) 10 GM/15ML solution(Started 10/28/2024) Take 30 mL by mouth 3 times daily 2 refills by 10/28/2025 * rifAXIMin (Xifaxan) 550 MG tablet(Started 11/13/2024) Take 1 (one) tablet by mouth 2 times daily Reasons: 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, bronze discharge 2 refills by 11/13/2025 * ciprofloxacin (Cipro) 500 MG tablet(Started 11/16/2024) Take 1 (one) tablet by mouth once daily 3 refills by 11/13/2025 * spironolactone (Aldactone) 100 MG tablet(Started 11/14/2024) Take 1 (one) tablet by mouth once daily 2 refills by 11/13/2025 Ended Medications* metFORMIN (Glucophage) 1000 MG tablet(Discontinued) Take 1 (one) tablet by mouth 2 times daily * SITagliptin (Januvia) 50 MG tablet(Started 05/21/2023)(Discontinued) Take 2 (two) tablets by mouth once daily * acetaminophen (Tylenol) 500 MG tablet(Discontinued) Take 1 (one) tablet by mouth every 6 hours as needed Reasons: not to exceed 2g per day * furosemide (Lasix) 40 MG tablet(Started 09/30/2024)(Discontinued) Take 1 (one) tablet by mouth once daily 1 refill by 09/30/2025 Active Problems Problem Noted Date Diagnosed Date [...] SBO (small bowel obstruction) 09/25/2023 Pacemaker 07/18/2023 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 Abdominal aortic atherosclerosis 01/15/2023 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 Iron deficiency 01/15/2023 Combined forms of age-related cataract of both e yes 08/18/2022 Other dietary vitamin B12 deficiency anemia 05/06 Mesenteric lymphadenopathy 05/03/2022 Chronic anemia 04/12/2022 Status post biventricular cardiac pacemaker inse rtion 12/26/2021 Paroxysmal atrial fibrillation 06/01/2021 Bradycardia 05/15/2021 LBBB (left bundle branch block) 05/15/2021 ALEMAN (dyspnea on exertion) 05/14/2021 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 Not hard at all 11/08/2024 [facility] - Occupational Stress [...] any time in the past 12 m [facility], were you homeless or living in a usp (including now)? No 11/08/2024 Sex and Gender Information Value Date Recorded Sex Assigned at Not on file Gender Identity Not on file Sexual Orientation Not on file Last Filed Vital Signs Vital Sign Reading Time Taken Comments Blood Pressure 135/61 12/08/2024 12:00 PM PROJECT ASSOCIATE Pulse 75 12/08/2024 12:00 PM PROJECT ASSOCIATE Temperature 36.5 C (97.7 F) 12/08/2024 12:00 PM PROJECT ASSOCIATE Respiratory Rate 17 12/08/2024 12:00 PM PROJECT ASSOCIATE Oxygen Saturation 98% 12/08/2024 12:00 PM PROJECT ASSOCIATE Inhaled Oxygen Concentration - - Weight 48 kg (105 lb 12.8 oz) 12/05/2024 6:16 PM PROJECT ASSOCIATE Height 163 cm (5' 4.17 ) 12/04/2024 8:31 PM PROJECT ASSOCIATE Body Mass Index 18.06 12/04/2024 8:31 PM PROJECT ASSOCIATE Procedures * GLUCOSE - POINT OF CARE(Performed 12/08/2024) * GLUCOSE - POINT OF CARE(Performed 12/08/2024) * PHOSPHORUS BLOOD(Performed 12/08/2024) * MAGNESIUM BLOOD(Performed 12/08/2024) * COMPREHENSIVE METABOLIC PANEL(Performed 12/08/2024) * CBC W AUTO DIFFERENTIAL(Performed 12/08/2024) * GLUCOSE - POINT OF CARE(Performed 12/08/2024) * GLUCOSE - POINT OF CARE(Performed 12/07/2024) * GLUCOSE - POINT OF CARE(Performed 12/07/2024) * GLUCOSE - POINT OF CARE(Performed 12/07/2024) * GLUCOSE - POINT OF CARE(Performed 12/07/2024) * GLUCOSE - POINT OF CARE(Performed 12/07/2024) * PHOSPHORUS BLOOD(Performed 12/07/2024) * MAGNESIUM BLOOD(Performed 12/07/2024) * COMPREHENSIVE METABOLIC PANEL(Performed 12/07/2024) * CBC W AUTO DIFFERENTIAL(Performed 12/07/2024) * GLUCOSE - POINT OF CARE(Performed 12/07/2024) * GLUCOSE - POINT OF CARE(Performed 12/06/2024) * GLUCOSE - POINT OF CARE(Performed 12/06/2024) * GLUCOSE - POINT OF CARE(Performed 12/06/2024) * GLUCOSE - POINT OF CARE(Performed 12/06/2024) * GLUCOSE - POINT OF CARE(Performed 12/06/2024) * PHOSPHORUS BLOOD(Performed 12/06/2024) * MAGNESIUM BLOOD(Performed 12/06/2024) * COMPREHENSIVE METABOLIC PANEL(Performed 12/06/2024) * CBC W AUTO DIFFERENTIAL(Performed 12/06/2024) * INSULIN FREE + TOTAL(Performed 12/06/2024) * INSULIN LIKE GROWTH FACTOR 2(Performed 12/06/2024) * IGF BINDING PROTEIN 1(Performed 12/06/2024) * HYDROXYBUTYRATE BETA(Performed 12/06/2024) * CORTISOL BLOOD AM(Performed 12/06/2024) * PROINSULIN(Performed 12/06/2024) * C-PEPTIDE(Performed 12/06/2024) * GLUCOSE - POINT OF CARE(Performed 12/06/2024) * GLUCOSE - POINT OF CARE(Performed 12/05/2024) * GLUCOSE - POINT OF CARE(Performed 12/05/2024) * GLUCOSE - POINT OF CARE(Performed 12/05/2024) * GLUCOSE - POINT OF CARE(Performed 12/05/2024) * C-PEPTIDE(Performed 12/05/2024) * PROINSULIN(Performed 12/05/2024) * INSULIN FREE + TOTAL(Performed 12/05/2024) * GLUCOSE - POINT OF CARE(Performed 12/05/2024) * GLUCOSE - POINT OF CARE(Performed 12/05/2024) * GLUCOSE - POINT OF CARE(Performed 12/05/2024) * PHOSPHORUS BLOOD(Performed 12/05/2024) * MAGNESIUM BLOOD(Performed 12/05/2024) * COMPREHENSIVE METABOLIC PANEL(Performed 12/05/2024) * CBC W AUTO DIFFERENTIAL(Performed 12/05/2024) * GLUCOSE - POINT OF CARE(Performed 12/05/2024) * GLUCOSE - POINT OF CARE(Performed 12/05/2024) * GLUCOSE - POINT OF CARE(Performed 12/05/2024) * GLUCOSE - POINT OF CARE(Performed 12/05/2024) * GLUCOSE - POINT OF CARE(Performed 12/05/2024) * GLUCOSE - POINT OF CARE(Performed 12/05/2024) * GLUCOSE - POINT OF CARE(Performed 12/04/2024) * GLUCOSE - POINT OF CARE(Performed 12/04/2024) * GLUCOSE - POINT OF CARE(Performed 12/04/2024) * GLUCOSE - POINT OF CARE(Performed 12/04/2024) * GLUCOSE - POINT OF CARE(Performed 12/04/2024) * US ABDOMEN LIMITED(Performed 12/04/2024) Performed for Hepatic cirrhosis, unspecified hepatic cirrhosis type, unspecified whether ascites present (HCC) * CARDIAC EKG ORDER(Performed 12/04/2024) * UREA NITROGEN URINE RANDOM(Performed 12/04/2024) * FERRITIN(Performed 12/04/2024) * VITAMIN B12(Performed 12/04/2024) * FOLATE(Performed 12/04/2024) * IRON + TRANSFERRIN PANEL(Performed 12/04/2024) * GLUCOSE - POINT OF CARE(Performed 12/04/2024) * GLUCOSE - POINT OF CARE(Performed 12/04/2024) * GLUCOSE - POINT OF CARE(Performed 12/04/2024) * PHOSPHORUS BLOOD(Performed 12/04/2024) * MAGNESIUM BLOOD(Performed 12/04/2024) * COMPREHENSIVE METABOLIC PANEL(Performed 12/04/2024) * CBC W AUTO DIFFERENTIAL(Performed 12/04/2024) * GLUCOSE - POINT OF CARE(Performed 12/04/2024) * GLUCOSE - POINT OF CARE(Performed 12/04/2024) * GLUCOSE - POINT OF CARE(Performed 12/04/2024) * CREATININE URINE RANDOM(Performed 12/04/2024) * LYTES (NA K CL) URINE RANDOM PANEL(Performed 12/04/2024) * URINALYSIS REFLEX MICROSCOPIC REFLEX CULTURE(Performed 12/04/2024) * GLUCOSE - POINT OF CARE(Performed 12/03/2024) * GLUCOSE - POINT OF CARE(Performed 12/03/2024) * GLUCOSE - POINT OF CARE(Performed 12/03/2024) * CULTURE BLOOD(Performed 12/03/2024) * CULTURE BLOOD(Performed 12/03/2024) * CT HEAD WO CONTRAST(Performed 12/03/2024) Performed for Altered mental status, unspecified altered mental status type, Hepatic cirrhosis, unspecified hepatic cirrhosis type, unspecified whether ascites present (HCC) * TROPONIN-I HIGH SENSITIVE REFLEX 1HOUR(Performed 12/03/2024) * SARS-COV-2 (COVID-19) FLU A/B RSV PCR RAPID(Performed 12/03/2024) * PTT SLH(Performed 12/03/2024) * PT-INR SLH(Performed 12/03/2024) * AMMONIA(Performed 12/03/2024) * TROPONIN-I HIGH SENSITIVE BASELINE + 1HR(Performed 12/03/2024) * MAGNESIUM BLOOD(Performed 12/03/2024) * COMPREHENSIVE METABOLIC PANEL(Performed 12/03/2024) * CBC W AUTO DIFFERENTIAL(Performed 12/03/2024) * EKG 12-LEAD(Performed 12/03/2024) Performed for Altered mental status, unspecified altered mental status type * XR CHEST 2VW(Performed 12/03/2024) Performed for Altered mental status, unspecified altered mental status type * GLUCOSE - POINT OF CARE(Performed 11/13/2024) * GLUCOSE - POINT OF CARE(Performed 11/13/2024) * GLUCOSE - POINT OF CARE(Performed 11/13/2024) * CBC W AUTO DIFFERENTIAL(Performed 11/13/2024) * MAGNESIUM BLOOD(Performed 11/13/2024) * PHOSPHORUS BLOOD(Performed 11/13/2024) * COMPREHENSIVE METABOLIC PANEL(Performed 11/13/2024) * GLUCOSE - POINT OF CARE(Performed 11/12/2024) * GLUCOSE - POINT OF CARE(Performed 11/12/2024) * GLUCOSE - POINT OF CARE(Performed 11/12/2024) * CBC W AUTO DIFFERENTIAL(Performed 11/12/2024) * MAGNESIUM BLOOD(Performed 11/12/2024) * PHOSPHORUS BLOOD(Performed 11/12/2024) * COMPREHENSIVE METABOLIC PANEL(Performed 11/12/2024) * GLUCOSE - POINT OF CARE(Performed 11/12/2024) * GLUCOSE - POINT OF CARE(Performed 11/11/2024) * GLUCOSE - POINT OF CARE(Performed 11/11/2024) * CARDIAC EKG ORDER(Performed 11/11/2024) * GLUCOSE - POINT OF CARE(Performed 11/11/2024) * CBC W AUTO DIFFERENTIAL(Performed 11/11/2024) * MAGNESIUM BLOOD(Performed 11/11/2024) * PHOSPHORUS BLOOD(Performed 11/11/2024) * COMPREHENSIVE METABOLIC PANEL(Performed 11/11/2024) * GLUCOSE - POINT OF CARE(Performed 11/11/2024) * GLUCOSE - POINT OF CARE(Performed 11/10/2024) * GLUCOSE - POINT OF CARE(Performed 11/10/2024) * GLUCOSE - POINT OF CARE(Performed 11/10/2024) * GLUCOSE - POINT OF CARE(Performed 11/10/2024) * CBC W AUTO DIFFERENTIAL(Performed 11/10/2024) * MAGNESIUM BLOOD(Performed 11/10/2024) * PHOSPHORUS BLOOD(Performed 11/10/2024) * COMPREHENSIVE METABOLIC PANEL(Performed 11/10/2024) * GLUCOSE - POINT OF CARE(Performed 11/10/2024) * GLUCOSE - POINT OF CARE(Performed 11/09/2024) * GLUCOSE - POINT OF CARE(Performed 11/09/2024) * GLUCOSE - POINT OF CARE(Performed 11/09/2024) * CBC W AUTO DIFFERENTIAL(Performed 11/09/2024) * MAGNESIUM BLOOD(Performed 11/09/2024) * PHOSPHORUS BLOOD(Performed 11/09/2024) * COMPREHENSIVE METABOLIC PANEL(Performed 11/09/2024) * GLUCOSE - POINT OF CARE(Performed 11/09/2024) * GLUCOSE - POINT OF CARE(Performed 11/08/2024) * CBC W AUTO DIFFERENTIAL(Performed 11/08/2024) * MAGNESIUM BLOOD(Performed 11/08/2024) * PHOSPHORUS BLOOD(Performed 11/08/2024) * COMPREHENSIVE METABOLIC PANEL(Performed 11/08/2024) * GLUCOSE - POINT OF CARE(Performed 11/08/2024) * GLUCOSE - POINT OF CARE(Performed 11/08/2024) * GLUCOSE - POINT OF CARE(Performed 11/08/2024) * GLUCOSE - POINT OF CARE(Performed 11/07/2024) * GLUCOSE - POINT OF CARE(Performed 11/07/2024) * GLUCOSE - POINT OF CARE(Performed 11/07/2024) * HIV-1 HIV-2 ANTIBODY + HIV P24 AG PANEL(Performed 11/07/2024) * TSH REFLEX FREE T4(Performed 11/07/2024) * VITAMIN B12(Performed 11/07/2024) * FOLATE(Performed 11/07/2024) * VITAMIN B1(Performed 11/07/2024) * SYPHILIS ANTIBODY CASCADING REFLEX(Performed 11/07/2024) * CBC W AUTO DIFFERENTIAL(Performed 11/07/2024) * MAGNESIUM BLOOD(Performed 11/07/2024) * PHOSPHORUS BLOOD(Performed 11/07/2024) * COMPREHENSIVE METABOLIC PANEL(Performed 11/07/2024) * GLUCOSE - POINT OF CARE(Performed 11/07/2024) * URINALYSIS W/MICROSCOPIC REFLEX TO CULTURE(Performed 11/06/2024) * URINE DRUG SCREEN IMMUNOASSAY(Performed 11/06/2024) * DIFFERENTIAL MANUAL FLUID(Performed 11/06/2024) * PROTEIN BODY FLUID(Performed 11/06/2024) * GLUCOSE BODY FLUID(Performed 11/06/2024) * CELL COUNT W DIFFERENTIAL FLUID(Performed 11/06/2024) * HYDROXYBUTYRATE BETA(Performed 11/06/2024) * CULTURE FLUID+GRAM STAIN(Performed 11/06/2024) * ED PARACENTESIS(Performed 11/06/2024) Performed for Encephalopathy, unspecified type, Decompensated cirrhosis (HCC) * TROPONIN-I HIGH SENSITIVE REFLEX 1HOUR(Performed 11/06/2024) * SARS-COV-2 (COVID-19)+INFLU A+B PCR RAPID(Performed 11/06/2024) * TROPONIN-I HIGH SENSITIVE BASELINE + 1HR(Performed 11/06/2024) * AMMONIA(Performed 11/06/2024) * EKG 12-LEAD(Performed 11/06/2024) Performed for Encephalopathy, unspecified type * CT HEAD WO CONTRAST(Performed 11/06/2024) Performed for Encephalopathy, unspecified type * XR CHEST 1VW PORTABLE(Performed 11/06/2024) Performed for Encephalopathy, unspecified type * LIPASE BLOOD(Performed 11/06/2024) * PT-INR SLH(Performed 11/06/2024) * COMPREHENSIVE METABOLIC PANEL(Performed 11/06/2024) * CBC W AUTO DIFFERENTIAL(Performed 11/06/2024) * [place] ESOPHAGUS MOTILITY STUDY(Performed 10/31/2024) Performed for Dysphagia, unspecified type * GLUCOSE - POINT OF CARE(Performed 10/28/2024) * GLUCOSE - POINT OF CARE(Performed 10/28/2024) * PT-INR SLH(Performed 10/28/2024) * CBC W/O DIFFERENTIAL(Performed 10/28/2024) * PHOSPHORUS BLOOD(Performed 10/28/2024) * MAGNESIUM BLOOD(Performed 10/28/2024) * COMPREHENSIVE METABOLIC PANEL(Performed 10/28/2024) * GLUCOSE - POINT OF CARE(Performed 10/27/2024) * GLUCOSE - POINT OF CARE(Performed 10/27/2024) * GLUCOSE - POINT OF CARE(Performed 10/27/2024) * PT-INR SLH(Performed 10/27/2024) * CBC W/O DIFFERENTIAL(Performed 10/27/2024) * PHOSPHORUS BLOOD(Performed 10/27/2024) * MAGNESIUM BLOOD(Performed 10/27/2024) * COMPREHENSIVE METABOLIC PANEL(Performed 10/27/2024) * GLUCOSE - POINT OF CARE(Performed 10/27/2024) * GLUCOSE - POINT OF CARE(Performed 10/26/2024) * GLUCOSE - POINT OF CARE(Performed 10/26/2024) * VITAMIN D 1,25 DIHYDROXY(Performed 10/26/2024) * PT-INR SLH(Performed 10/26/2024) * CBC W/O DIFFERENTIAL(Performed 10/26/2024) * PHOSPHORUS BLOOD(Performed 10/26/2024) * MAGNESIUM BLOOD(Performed 10/26/2024) * COMPREHENSIVE METABOLIC PANEL(Performed 10/26/2024) * GLUCOSE - POINT OF CARE(Performed 10/25/2024) * GLUCOSE - POINT OF CARE(Performed 10/25/2024) * GLUCOSE - POINT OF CARE(Performed 10/25/2024) * SODIUM URINE RANDOM(Performed 10/25/2024) * GLUCOSE - POINT OF CARE(Performed 10/25/2024) * US ABDOMEN LTD W COMP DOPPLER(Performed 10/25/2024) Performed for Hepatic encephalopathy (HCC) * PTH RELATED PEPTIDE(Performed 10/25/2024) * LDH BLOOD(Performed 10/25/2024) * VITAMIN D 25-HYDROXY(Performed 10/25/2024) * PTH INTACT W/O CALCIUM(Performed 10/25/2024) * PT-INR SLH(Performed 10/25/2024) * CBC W/O DIFFERENTIAL(Performed 10/25/2024) * PHOSPHORUS BLOOD(Performed 10/25/2024) * MAGNESIUM BLOOD(Performed 10/25/2024) * COMPREHENSIVE METABOLIC PANEL(Performed 10/25/2024) * GLUCOSE - POINT OF CARE(Performed 10/24/2024) * GLUCOSE - POINT OF CARE(Performed 10/24/2024) * GLUCOSE - POINT OF CARE(Performed 10/24/2024) * CALCIUM IONIZED WHOLE BLOOD(Performed 10/24/2024) * HEMOGLOBIN A1C(Performed 10/24/2024) * PT-INR SLH(Performed 10/24/2024) * CBC W/O DIFFERENTIAL(Performed 10/24/2024) * PHOSPHORUS BLOOD(Performed 10/24/2024) * MAGNESIUM BLOOD(Performed 10/24/2024) * COMPREHENSIVE METABOLIC PANEL(Performed 10/24/2024) * LACTIC ACID BLOOD(Performed 10/24/2024) * GLUCOSE - POINT OF CARE(Performed 10/24/2024) * GLUCOSE - POINT OF CARE(Performed 10/24/2024) * GLUCOSE - POINT OF CARE(Performed 10/23/2024) * GLUCOSE - POINT OF CARE(Performed 10/23/2024) * GLUCOSE - POINT OF CARE(Performed 10/23/2024) * CT HEAD WO CONTRAST(Performed 10/23/2024) Performed for Hepatic encephalopathy (HCC) * XR CHEST 1VW PORTABLE(Performed 10/23/2024) Performed for Hepatic encephalopathy (HCC) * BLOOD GASES REINA + COOX PANEL(Performed 10/23/2024) * CULTURE BLOOD(Performed 10/23/2024) * HYDROXYBUTYRATE BETA(Performed 10/23/2024) * LACTIC ACID BLOOD REFLEX TO REPEAT(Performed 10/23/2024) * CULTURE BLOOD(Performed 10/23/2024) * DIFFERENTIAL MANUAL FLUID(Performed 10/23/2024) * CELL COUNT W DIFFERENTIAL FLUID(Performed 10/23/2024) * CULTURE FLUID+GRAM STAIN(Performed 10/23/2024) * ED PARACENTESIS(Performed 10/23/2024) * LACTIC ACID BLOOD REFLEX TO REPEAT(Performed 10/23/2024) * URINALYSIS W/MICROSCOPIC REFLEX TO CULTURE(Performed 10/23/2024) * MAGNESIUM BLOOD(Performed 10/23/2024) * AMMONIA(Performed 10/23/2024) * LACTIC ACID BLOOD REFLEX TO REPEAT(Performed 10/23/2024) * PT-INR SLH(Performed 10/23/2024) * COMPREHENSIVE METABOLIC PANEL(Performed 10/23/2024) * CBC W AUTO DIFFERENTIAL(Performed 10/23/2024) * GLUCOSE - POINT OF CARE(Performed 09/30/2024) * GLUCOSE - POINT OF CARE(Performed 09/30/2024) * COMPREHENSIVE METABOLIC PANEL(Performed 09/30/2024) * CBC W AUTO DIFFERENTIAL(Performed 09/30/2024) * MAGNESIUM BLOOD(Performed 09/30/2024) * PHOSPHORUS BLOOD(Performed 09/30/2024) * GLUCOSE - POINT OF CARE(Performed 09/29/2024) * GLUCOSE - POINT OF CARE(Performed 09/29/2024) * GLUCOSE - POINT OF CARE(Performed 09/29/2024) * GLUCOSE - POINT OF CARE(Performed 09/29/2024) * COMPREHENSIVE METABOLIC PANEL(Performed 09/29/2024) * CBC W AUTO DIFFERENTIAL(Performed 09/29/2024) * MAGNESIUM BLOOD(Performed 09/29/2024) * PHOSPHORUS BLOOD(Performed 09/29/2024) * GLUCOSE - POINT OF CARE(Performed 09/28/2024) * GLUCOSE - POINT OF CARE(Performed 09/28/2024) * URINALYSIS REFLEX MICROSCOPIC REFLEX CULTURE(Performed 09/28/2024) * AMMONIA(Performed 09/28/2024) * PT-INR SLH(Performed 09/28/2024) * MAGNESIUM BLOOD(Performed 09/28/2024) * COMPREHENSIVE METABOLIC PANEL(Performed 09/28/2024) * CBC W AUTO DIFFERENTIAL(Performed 09/28/2024) * GLUCOSE - POINT OF CARE(Performed 09/02/2024) * CBC W AUTO DIFFERENTIAL(Performed 09/02/2024) * MAGNESIUM BLOOD(Performed 09/02/2024) * RENAL FUNCTION PANEL(Performed 09/02/2024) * GLUCOSE - POINT OF CARE(Performed 09/01/2024) * GLUCOSE - POINT OF CARE(Performed 09/01/2024) * GLUCOSE - POINT OF CARE(Performed 09/01/2024) * CBC W AUTO DIFFERENTIAL(Performed 09/01/2024) * MAGNESIUM BLOOD(Performed 09/01/2024) * RENAL FUNCTION PANEL(Performed 09/01/2024) * GLUCOSE - POINT OF CARE(Performed 08/31/2024) * LACTIC ACID BLOOD(Performed 08/31/2024) * CBC W AUTO DIFFERENTIAL(Performed 08/31/2024) * XR CHEST 1VW PORTABLE(Performed 08/31/2024) Performed for Altered mental status, unspecified altered mental status type * MAGNESIUM BLOOD(Performed 08/31/2024) * RENAL FUNCTION PANEL(Performed 08/31/2024) * LACTIC ACID BLOOD(Performed 08/31/2024) * CREATININE URINE RANDOM(Performed 08/31/2024) * UREA NITROGEN URINE RANDOM(Performed 08/31/2024) * LYTES (NA K CL) URINE RANDOM PANEL(Performed 08/31/2024) * URINALYSIS REFLEX MICROSCOPIC REFLEX CULTURE(Performed 08/31/2024) * CULTURE URINE(Performed 08/31/2024) * LACTIC ACID BLOOD(Performed 08/30/2024) * CULTURE BLOOD(Performed 08/30/2024) * CULTURE BLOOD(Performed 08/30/2024) * GLUCOSE - POINT OF CARE(Performed 08/30/2024) * BLOOD GASES REINA + COOX PANEL(Performed 08/30/2024) * BASIC METABOLIC PANEL (CALCIUM TOTAL)(Performed 08/30/2024) * TROPONIN-I HIGH SENSITIVE REFLEX 1HOUR(Performed 08/30/2024) * CT HEAD WO CONTRAST(Performed 08/30/2024) Performed for Altered mental status, unspecified altered mental status type * TROPONIN-I HIGH SENSITIVE BASELINE + 1HR(Performed 08/30/2024) * AMMONIA(Performed 08/30/2024) * PT-INR SLH(Performed 08/30/2024) * LIPASE BLOOD(Performed 08/30/2024) * COMPREHENSIVE METABOLIC PANEL(Performed 08/30/2024) * CBC W AUTO DIFFERENTIAL(Performed 08/30/2024) * EKG 12-LEAD(Performed 08/30/2024) Performed for Altered mental status, unspecified altered mental status type * GLUCOSE - POINT OF CARE(Performed 08/19/2024) * GLUCOSE - POINT OF CARE(Performed 08/19/2024) * PT-INR [facility](Performed 08/19/2024) * PHOSPHORUS BLOOD(Performed 08/19/2024) * MAGNESIUM BLOOD(Performed 08/19/2024) * COMPREHENSIVE METABOLIC PANEL(Performed 08/19/2024) * CBC W AUTO DIFFERENTIAL(Performed 08/19/2024) * GLUCOSE - POINT OF CARE(Performed 08/18/2024) * GLUCOSE - POINT OF CARE(Performed 08/18/2024) * GLUCOSE - POINT OF CARE(Performed 08/18/2024) * PT-INR [facility](Performed 08/18/2024) * PHOSPHORUS BLOOD(Performed 08/18/2024) * MAGNESIUM BLOOD(Performed 08/18/2024) * COMPREHENSIVE METABOLIC PANEL(Performed 08/18/2024) * CBC W AUTO DIFFERENTIAL(Performed 08/18/2024) * GLUCOSE - POINT OF CARE(Performed 08/18/2024) * GLUCOSE - POINT OF CARE(Performed 08/17/2024) * GLUCOSE - POINT OF CARE(Performed 08/17/2024) * GLUCOSE - POINT OF CARE(Performed 08/17/2024) * GLUCOSE - POINT OF CARE(Performed 08/17/2024) * PTT [facility](Performed 08/17/2024) * PT-INR [facility](Performed 08/17/2024) * PHOSPHORUS BLOOD(Performed 08/17/2024) * MAGNESIUM BLOOD(Performed 08/17/2024) * COMPREHENSIVE METABOLIC PANEL(Performed 08/17/2024) * CBC W AUTO DIFFERENTIAL(Performed 08/17/2024) * GLUCOSE - POINT OF CARE(Performed 08/16/2024) * GLUCOSE - POINT OF CARE(Performed 08/16/2024) * GLUCOSE - POINT OF CARE(Performed 08/16/2024) * URINALYSIS REFLEX TO MICROSCOPIC NO CULTURE(Performed 08/16/2024) * GLUCOSE - POINT OF CARE(Performed 08/16/2024) * GLUCOSE - POINT OF CARE(Performed 08/16/2024) * XR CHEST 1VW PORTABLE(Performed 08/16/2024) Performed for ALEMAN (dyspnea on exertion) * CULTURE BLOOD(Performed 08/16/2024) * PHOSPHORUS BLOOD(Performed 08/16/2024) * MAGNESIUM BLOOD(Performed 08/16/2024) * COMPREHENSIVE METABOLIC PANEL(Performed 08/16/2024) * CBC W AUTO DIFFERENTIAL(Performed 08/16/2024) * PTT [facility](Performed 08/16/2024) * PT-INR [facility](Performed 08/16/2024) * CULTURE BLOOD(Performed 08/16/2024) * HEMOGLOBIN A1C(Performed 08/16/2024) * PTT [facility](Performed 08/16/2024) * PT-INR [facility](Performed 08/16/2024) * AMMONIA(Performed 08/16/2024) * PHOSPHORUS BLOOD(Performed 08/16/2024) * MAGNESIUM BLOOD(Performed 08/16/2024) * LACTIC ACID BLOOD(Performed 08/16/2024) * COMPREHENSIVE METABOLIC PANEL(Performed 08/16/2024) * CBC W AUTO DIFFERENTIAL(Performed 08/16/2024) * GLUCOSE - POINT OF CARE(Performed 08/15/2024) * LDH BLOOD(Performed 06/26/2024) Performed for Plasma cell disorder * IGM BLOOD(Performed 06/26/2024) Performed for Plasma cell disorder * IGA BLOOD(Performed 06/26/2024) Performed for Plasma cell disorder * IGG BLOOD(Performed 06/26/2024) Performed for Plasma cell disorder * KAPPA/[place]AMBDA LITE CHAIN FREE PANEL(Performed 06/26/2024) Performed for Plasma cell disorder * IMMUNOFIXATION BLOOD(Performed 06/26/2024) Performed for Plasma cell disorder * PROTEIN ELECTROPHORESIS BLOOD(Performed 06/26/2024) Performed for Plasma cell disorder * COMPREHENSIVE METABOLIC PANEL(Performed 06/26/2024) Performed for Plasma cell disorder * CBC W AUTO DIFFERENTIAL(Performed 06/26/2024) Performed for Plasma cell disorder * HEPATITIS B SURFACE ANTIGEN W RFLX CONFIRMATION(Performed 06/17/2024) Performed for Decompensated hepatic cirrhosis (HCC) * PT-INR SLH(Performed 06/17/2024) Performed for Decompensated hepatic cirrhosis (HCC) * [id number] BLOOD(Performed 06/17/2024) Performed for Decompensated hepatic cirrhosis (HCC) * HEPATITIS B CORE ANTIBODY TOTAL(Performed 06/17/2024) Performed for Decompensated hepatic cirrhosis (HCC), Encounter for screening for other viral diseases * HEPATITIS B SURFACE ANTIBODY(Performed 06/17/2024) Performed for Decompensated hepatic cirrhosis (HCC), Encounter for screening for other viral diseases * HEPATITIS A ANTIBODY(Performed 06/17/2024) Performed for Decompensated hepatic cirrhosis (HCC), Encounter for screening for other viral diseases * ALPHA FETOPROTEIN BLOOD TUMOR MARKER(Performed 06/17/2024) Performed for Decompensated hepatic cirrhosis (HCC) * BILIRUBIN DIRECT(Performed 06/17/2024) Performed for Decompensated hepatic cirrhosis (HCC) * COMPREHENSIVE METABOLIC PANEL(Performed 06/17/2024) Performed for Decompensated hepatic cirrhosis (HCC) * CBC W AUTO DIFFERENTIAL(Performed 06/17/2024) Performed for Decompensated hepatic cirrhosis (HCC) * FLOW CYTOMETRY BONE MARROW(Performed 02/01/2024) Performed for Follicular lymphoma, unspecified, unspecified site (HCC), Non- Hodgkin lymphoma, unspecified, unspecified site (HCC) * BONE MARROW BIOPSY (STL)(Performed 02/01/2024) Performed for Illness, unspecified * PATHOLOGY TISSUE(Performed 12/14/2022) Performed for Illness, unspecified * DERMATOPATHOLOGY(Performed 09/20/2020) Results * (ABNORMAL) GLUCOSE - POINT OF CARE (12/08/2024 12:03 PM PROJECT ASSOCIATE) Only the most recent of120 resultswithin the time period is included. [facility] Glucose WB/POC 246(H) 70 - 99 mg/dL 12/08/2024 12:03 PM [facility] Specimen Type Cap Fingerstick 2024 12:03 PM [facility] Blood BLOOD SPECIMEN / Unknown 12/08/2024 12:03 PM PROJECT ASSOCIATE 12/08/2024 12:03 PM PROJECT ASSOCIATE Darek Teran MD LAB - POINT OF CARE ORDERABLES [facility] [address] [place] [address], [facility] [phone] * (ABNORMAL) CBC W AUTO DIFFERENTIAL (12/08/2024 5:06 AM PROJECT ASSOCIATE) Only the most recent of29 resultswithin the time period is included. [facility] WBC 3.6(L) 4.0 - 10.7 x10E9/L 12/08/2024 5:38 AM [facility] RBC Count 2.38(L) 4.30 - 5.80 x10E12/L 12/08/2024 5:38 AM [facility] Hemoglobin 7.6(L) 13.3 - 17.5 g/dL 12/08/2024 5:38 AM [facility] Hematocrit 22.2(L) 38.7 - 51.1 % 12/08/2024 5:38 AM [facility] MCV 93.3 80.0 - 98.0 fL 12/08/2024 5:38 AM [facility] MCH 31.9 26.7 - 33.6 pg 12/08/2024 5:38 AM [facility] MCHC 34.2 31.7 - 36.3 g/dL 12/08/2024 5:38 AM [facility] RDW-CV 17.2(H) 11.3 - 14.8 % 12/08/2024 5:38 AM [facility] Platelet Count 121(L) 150 - 420 x10E9/L 12/08/2024 5:38 AM [facility] MPV 11.1 7.8 - 11.4 fL 12/08/2024 5:38 AM [facility] Neutrophil % 76.9(H) 41.0 - 74.0 % 12/08/2024 5:38 AM [facility] Lymphocyte % 7.2(L) 17.0 - 47.0 % 12/08/2024 5:38 AM [facility] Monocyte % 10.9 3.0 - 11.0 % 12/08/2024 5:38 AM [facility] Eosinophil % 3.9 0.0 - 7.0 % 12/08/2024 5:38 AM [facility] Basophil % 0.3 0.0 - 1.6 % 12/08/2024 5:38 AM [facility] Immature Granulocytes % 0.8 0.0 - 1.0 % 12/08/2024 5:38 AM [facility] Neutrophil Absolute 2.76 1.60 - 7.50 x10E9/L 12/08/2024 5:38 AM [facility] Lymphocyte Absolute 0.26(L) 1.00 - 4.40 x10E9/L 12/08/2024 5:38 AM [facility] Monocyte Absolute 0.39 0.15 - 1.00 x10E9/L 12/08/2024 5:38 AM [facility] Eosinophil Absolute 0.14 0.00 - 0.60 x10E9/L 12/08/2024 5:38 AM [facility] Basophil Absolute 0.01 0.00 - 0.13 x10E9/L 12/08/2024 5:38 AM [facility] Blood BLOOD SPECIMEN / Unknown Venipuncture / Unknown 12/08/2024 5:06 AM [facility] 12/08/2024 5:20 AM [facility] Juancarlos Lujan MD LAB - HEMATOLOGY ORD ERABLES [facility] [address] [place] [address], [facility] [phone] * (ABNORMAL) COMPREHENSIVE METABOLIC PANEL (12/08/2024 5:06 AM [facility]) Only the most recent of31 resultswithin the time period is included. BUN 27(H) 7 - 26 mg/dL 12/08/2024 5:56 AM [facility] Creatinine 1.28(H) 0.71 - 1.16 mg/dL 12/08/2024 5:56 AM [facility] Sodium 136 136 - 145 mmol/L 12/08/2024 5:56 AM [facility] Potassium 3.7 3.5 - 4.5 mmol/L 12/08/2024 5:56 AM [facility] Chloride 110(H) 98 - 107 mmol/L 12/08/2024 5:56 AM [facility] CO2 16(L) 22 - 29 mmol/L 12/08/2024 5:56 AM [facility] Glucose 171(H) 70 - 99 mg/dL 12/08/2024 5:56 AM [facility] Calcium 9.5 8.4 - 10.2 mg/dL 12/08/2024 5:56 AM [facility] Protein Total 5.9(L) 6.0 - 8.3 g/dL 12/08/2024 5:56 AM [facility] Albumin 2.7(L) 3.4 - 5.0 g/dL 12/08/2024 5:56 AM [facility] Bilirubin Total 0.9 0.2 - 1.2 mg/dL 12/08/2024 5:56 AM [facility] Alkaline Phosphatase 251(H) 40 - 150 U/L 12/08/2024 5:56 AM [facility] ALT 31 5 - 55 U/L 12/08/2024 5:56 AM [facility] AST 27 5 - 34 U/L 12/08/2024 5:56 AM [facility] Anion Gap 10 6 - 16 12/08/2024 5:56 AM [facility] BUN/Creatinine Ratio 21 7 - 23 12/08/2024 5:56 AM [facility] Osmolality Calculated 291 275 - 295 mOsm/kg 12/08/2024 5:56 AM [facility] Albumin/Globulin Ratio 0.8(L) 1.1 - 2.3 12/08/2024 5:56 AM [facility] eGFR by CKD-EPI 57(L) >=90 mL/min/1.7 3 m2 12/08/2024 5:56 AM [facility] Blood BLOOD SPECIMEN / Unknown Venipuncture / Unknown 12/08/2024 5:06 AM PROJECT ASSOCIATE 12/08/2024 5:28 AM PROJECT ASSOCIATE Juancarlos Lujan MD LAB - CHEMISTRY JOHN PAUL RIVAS Performing Organization Address City/[facility]/ZIP Co de Phone Number [address] [address], [facility] [phone] * (ABNORMAL) PHOSPHORUS BLOOD (12/08/2024 5:06 AM PROJECT ASSOCIATE) Only the most recent of24 resultswithin the time period is included. Phosphorus 1.9(L) 2.8 - 5.1 mg/dL 12/08/2024 5:56 AM [facility] Blood BLOOD SPECIMEN / Unknown Venipuncture / Unknown 12/08/2024 5:06 AM PROJECT ASSOCIATE 12/08/2024 5:28 AM PROJECT ASSOCIATE Juancarlos Lujan MD LAB - CHEMISTRY ORDUlysses RIVAS [address] [address], [facility] [phone] * MAGNESIUM BLOOD (12/08/2024 5:06 AM PROJECT ASSOCIATE) Only the most recent of30 resultswithin the time period is included. Magnesium 2.1 1.6 - 2.6 mg/dL 12/08/2024 5:56 AM [facility] Blood BLOOD SPECIMEN / Unknown Venipuncture / Unknown 12/08/2024 5:06 AM PROJECT ASSOCIATE 12/08/2024 5:28 AM PROJECT ASSOCIATE Narrative Authorizing Provider Result Vanna Lujan MD LAB - CHEMISTRY JOHN PAUL RIVAS Performing Organization Address City/[facility]/ZIP Co de Phone Number [facility] [address] [place] [address], [facility] [phone] * IGF BINDING PROTEIN 1 (12/06/2024 5:39 AM PROJECT ASSOCIATE) IGF Binding Protein-1 19 5 - 34 ng/mL 12/17/2024 3:04 AM PROJECT ASSOCIATE [employer] ([facility]) Comment: The limit of detection of this assay is 5 ng/mL. A proportion of normal patients will have results less than 5 ng/mL. This test was developed and its analytical performance characteristics have been determined by [employer]. It has not been cleared or approved by FDA. This assay has been validated pursuant to the CLIA regulations and is used for clinical purposes. Performed by: [employer] [facility] [address] [place] [address] Catie Pope MD, PhD, JIMMY, Blood BLOOD SPECIMEN / Unknown Lab Venipuncture / Unknown 12/06/2024 5:39 AM PROJECT ASSOCIATE 12/06/2024 5:58 AM PROJECT ASSOCIATE Juancarlos uLjan MD LAB - CHEMISTRY JOHN PAUL RIVAS Performing Organization Address City/[facility]/ZIP Co de Phone Number [facility]) [address] * INSULIN LIKE GROWTH FACTOR 2 (12/06/2024 5:39 AM PROJECT ASSOCIATE) INSULIN-LIKE GROWTH FACTOR (IGF-2) 156 ng/mL 12/09/2024 1:29 PM PROJECT ASSOCIATE [employer] ([facility]) Comment: INTERPRETIVE INFORMATION: Insulin-Like Growth Factor 2 Prepubertal (0-11 years old): 127 to 473 ng/mL Postpubertal (12 years and older): 180 to 580 ng/mL This test was developed and its performance characteristics determined by [employer]. It has not been cleared or approved by the US Food and Drug Administration. This test was performed in a CLIA certified laboratory and is intended for clinical purposes. Performed By: [facility] [employer] [address] [place] [address] Director Writing: Armando Lowe MD, PhD CLIA Number: [id number] Blood BLOOD SPECIMEN / Unknown Lab Venipuncture / Unknown 12/06/2024 5:39 AM PROJECT ASSOCIATE 12/06/2024 5:58 AM PROJECT ASSOCIATE Juancarlos Lujan MD LAB - CHEMISTRY JOHN PAUL RIVAS Performing Organization Address City/[facility]/ZIP Co de Phone Number [facility] [employer] [facility]) [address] [place] [address] * INSULIN FREE + TOTAL (12/06/2024 5:39 AM PROJECT ASSOCIATE) Only the most recent of2 resultswithin the time period is included. Pathologist [facility] Insulin Free 9 3 - 25 uIU/mL 12/10/2024 9:36 AM PROJECT ASSOCIATE [employer] ([facility]) Insulin 11 3 - 25 uIU/mL 12/10/2024 9:36 AM PROJECT ASSOCIATE [employer] ([facility]) Comment: INTERPRETIVE INFORMATION: Insulin, Free and Total This test reacts on a nearly equimolar basis with the analogs insulin aspart, insulin glargine, and insulin lispro. Insulin detemir exhibits approximately 50 percent cross-reactivity. Test reactivity with insulin glulisine is negligible (<3 percent). To convert to pmol/L, multiply uIU/mL by 6.0. Reference intervals established for fasting specimens. Performed By: [employer] [address] [place] [address] Director Writing: Armando Lowe MD, PhD CLIA Number: [id number] Blood BLOOD SPECIMEN / Unknown Lab Venipuncture / Unknown 12/06/2024 5:39 AM PROJECT ASSOCIATE 12/06/2024 5:58 AM PROJECT ASSOCIATE Juancarlos Lujan MD LAB - CHEMISTRY JOHN PAUL RIVAS Performing Organization Address City/[facility]/ZIP Co de Phone Number [employer] ([facility]) [address] [place] [address] * (ABNORMAL) C-PEPTIDE (12/06/2024 5:39 AM PROJECT ASSOCIATE) Only the most recent of2 resultswithin the time period is included. [facility] C-Peptide 6.9(H) 0.5 - 3.3 ng/mL 12/08/2024 9:16 PM PROJECT ASSOCIATE [facility] ([facility]) Comment: INTERPRETIVE INFORMATION: Serum, C-Peptide Reference Interval applies to fasting specimens. To convert to nmol/L, multiply by 0.33 Performed By: [employer] [address] [place] [address] Director Writing: Armando Lowe MD, PhD CLIA Number: [id number] Blood BLOOD SPECIMEN / Unknown Lab Venipuncture / Unknown 12/06/2024 5:39 AM PROJECT ASSOCIATE 12/06/2024 5:58 AM PROJECT ASSOCIATE Juancarlos Lujan MD LAB - CHEMISTRY ORDUlysses RIVAS Performing Organization Address [facility]/ZIP Co de Phone Number [facility]) [address] [place] [address] * (ABNORMAL) PROINSULIN (12/06/2024 5:39 AM PROJECT ASSOCIATE) Only the most recent of2 resultswithin the time period is included. [facility] Proinsulin 10.1(H) <=7.2 pmol/L 12/10/2024 7:21 AM PROJECT ASSOCIATE [facility] ([facility]) Comment: Performed By: [employer] [address] [place] [address] Director Writing: Armando Lowe MD, PhD CLIA Number: [id number] Blood BLOOD SPECIMEN / Unknown Lab Venipuncture / Unknown 12/06/2024 5:39 AM PROJECT ASSOCIATE 12/06/2024 5:58 AM PROJECT ASSOCIATE Juancarlos Lujan MD LAB - CHEMISTRY JOHN PAUL RIVAS Performing Organization Address [facility]/ZIP Co de Phone Number [facility]) [address] [place] [address] * HYDROXYBUTYRATE BETA (12/06/2024 5:39 AM PROJECT ASSOCIATE) Only the most recent of3 resultswithin the time period is included. Beta-Hydroxybu tyrate <0.50 <0.50 mmol/L 12/06/2024 6:29 AM PROJECT ASSOCIATE [facility] Blood BLOOD SPECIMEN / Unknown Lab Venipuncture / Unknown 12/06/2024 5:39 AM PROJECT ASSOCIATE 12/06/2024 6:02 AM PROJECT ASSOCIATE Juancarlos Lujan MD LAB - CHEMISTRY JOHN PAUL RIVAS Performing Organization Address [facility]/ZIP Co de Phone Number [address] [address], [facility] [phone] * CORTISOL BLOOD AM (12/06/2024 5:39 AM PROJECT ASSOCIATE) Cortisol AM 11.6 3.7 - 19.4 ug/dL 12/06/2024 6:47 AM PROJECT ASSOCIATE [facility] Blood BLOOD SPECIMEN / Unknown Lab Venipuncture / Unknown 12/06/2024 5:39 AM PROJECT ASSOCIATE 12/06/2024 6:02 AM PROJECT ASSOCIATE Narrative [facility] - 12/06/2024 6:47 AM PROJECT ASSOCIATE Normal cortisol levels are generally highest in the morning hours and lowest from late evening through the washroom attendant 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 The PM measurements of cortisol run approximately one-half to one-third of the AM values. Juancarlos Lujan MD LAB - CHEMISTRY JOHN PAUL RIVAS Performing Organization Address [facility]/ZIP Co de Phone Number [address] [address], [facility] [phone] * US Abdomen Limited (12/04/2024 11:40 AM PROJECT ASSOCIATE) Anatomical Region Laterality Modality Abdomen Ultrasound 12/04/2024 11:4 9 AM PROJECT ASSOCIATE Impressions 12/04/2024 1:29 PM PROJECT ASSOCIATE IMPRESSION: 1. Hepatic cirrhosis with sequela of portal hypertension including moderate volume ascites. 2. No cholelithiasis. 3. Moderate to large volume ascites. > Interpreting Provider: Patsy Orellana MD on 12/04/2024 1:29 PM Narrative 12/04/2024 1:29 PM PROJECT ASSOCIATE PROCEDURE: US ABDOMEN LIMITED DATE/TIME OF EXAM: 12/04/2024 11:40 AM CLINICAL INFORMATION: None relevant/not provided if blank. Indication: K74.60: Hepatic cirrhosis, unspecified hepatic cirrhosis type, unspecified whether ascites present (HCC) Additional History: COMPARISON: Ultrasound from 10/25/2024 TECHNIQUE: Real-time ultrasound of the upper abdomen with DICOM image capture performed by nuclear cardiology technologist. FINDINGS: The liver is coarse in [...] abdomen with DICOM image capture performed by nuclear cardiology technologist. FINDINGS: The liver is coarse in [...] * CARDIAC EKG ORDER (12/04/2024 11:29 AM PROJECT ASSOCIATE) Only the most recent of2 resultswithin the time period is included. Narrative 12/04/2024 11:29 AM PROJECT ASSOCIATE Ordered by an unspecified provider. Scanned Document CARDIAC SERVICES ORD ERABLES * UREA NITROGEN URINE RANDOM (12/04/2024 9:39 AM PROJECT ASSOCIATE) Only the most recent of2 resultswithin the time period is included. Urea Nitrogen Random Urine 361 Not Established mg/dL 12/04/2024 11:02 AM PROJECT ASSOCIATE [facility] Urine URINE SPECIMEN OBTAINED BY CLEAN CATCH PROCEDURE / Unknown Collection / Unknown 12/04/2024 9:39 AM PROJECT ASSOCIATE 12/04/2024 10:13 AM PROJECT ASSOCIATE Juancarlos Lujan MD LAB - URINE CHEMISTR Y ORDERABLES [address] [address], [facility] [phone] * FOLATE (12/04/2024 9:38 AM PROJECT ASSOCIATE) Only the most recent of2 resultswithin the time period is included. Folate 10.1 7.0 - 31.4 ng/mL 12/04/2024 11:27 AM PROJECT ASSOCIATE [facility] Blood BLOOD SPECIMEN / Unknown Venipuncture / Unknown 12/04/2024 9:38 AM PROJECT ASSOCIATE 12/04/2024 10:14 AM PROJECT ASSOCIATE Juancarlos Lujan MD LAB - CHEMISTRY ORDE RABLES [address] [address], [place] [phone] * (ABNORMAL) VITAMIN B12 (12/04/2024 9:38 AM PROJECT ASSOCIATE) Only the most recent of2 resultswithin the time period is included. Vitamin B12 1,880(H) 213 - 816 pg/mL 12/04/2024 11:27 AM [facility] Blood BLOOD SPECIMEN / Unknown Venipuncture / Unknown 12/04/2024 9:38 AM PROJECT ASSOCIATE 12/04/2024 10:14 AM PROJECT ASSOCIATE Juancarlos Lujan MD LAB - CHEMISTRY JOHN PAUL RIVAS [address] [address], [place] [phone] * (ABNORMAL) IRON + TRANSFERRIN PANEL (12/04/2024 9:38 AM PROJECT ASSOCIATE) Iron 64 50 - 175 ug/dL 12/04/2024 10:48 AM [facility] Transferrin 150(L) 174 - 382 mg/dL 12/04/2024 10:48 AM [facility] Transferrin Saturation % 34 16 - 50 % 12/04/2024 10:48 AM [facility] TIBC Calculated 188(L) 240 - 450 ug/dL 12/04/2024 10:48 AM [facility] Blood BLOOD SPECIMEN / Unknown Venipuncture / Unknown 12/04/2024 9:38 AM PROJECT ASSOCIATE 12/04/2024 10:15 AM PROJECT ASSOCIATE Juancarlos Lujan MD LAB - CHEMISTRY JOHN PAUL RIVAS Performing Organization Address City/[facility]/ZIP Co de Phone Number [address] [address], [place] [phone] * (ABNORMAL) FERRITIN (12/04/2024 9:38 AM PROJECT ASSOCIATE) Ferritin 339(H) 22 - 275 ng/mL 12/04/2024 11:05 AM [facility] Blood BLOOD SPECIMEN / Unknown Venipuncture / Unknown 12/04/2024 9:38 AM PROJECT ASSOCIATE 12/04/2024 10:15 AM PROJECT ASSOCIATE Juancarlos Lujan MD LAB - CHEMISTRY JOHN PAUL RIVAS [address] [address], [facility] [phone] * (ABNORMAL) URINALYSIS REFLEX MICROSCOPIC REFLEX CULTURE (12/04/2024 12:17 AM PROJECT ASSOCIATE) Only the most recent of3 resultswithin the time period is included. Color UA Yellow Straw, Yellow 12/04/2024 12:33 AM [facility] Clarity UA Clear Clear 12/04/2024 12:33 AM [facility] Specific [place] UA 1.010 1.005 - 1.030 12/04/2024 12:33 AM [facility] pH UA 5.0 5.0 - 8.0 pH 12/04/2024 12:33 AM [facility] Protein UA Negative Negative 12/04/2024 12:33 AM [facility] Glucose UA 1+(A) Negative 12/04/2024 12:33 AM [facility] Ketone UA Negative Negative 12/04/2024 12:33 AM [facility] Bilirubin UA Negative Negative 12/04/2024 12:33 AM [facility] Blood UA Negative Negative 12/04/2024 12:33 AM [facility] Nitrite UA Negative Negative 12/04/2024 12:33 AM [facility] Leukocyte Esterase Negative Negative 12/04/2024 12:33 AM [facility] Urobilinogen UA Negative Negative mg/dL 12/04/2024 12:33 AM [facility] Comment UA Microscopic not indicated. 12/04/2024 12:33 AM [facility] Urine URINE SPECIMEN OBTAINED BY CLEAN CATCH PROCEDURE / Unknown Collection / Unknown 12/04/2024 12:17 AM PROJECT ASSOCIATE 12/04/2024 12:22 AM PROJECT ASSOCIATE Narrative [facility] - 12/04/2024 12:33 AM PROJECT ASSOCIATE Sarika Martin PA-C LAB - URINALY SIS ORDERABLES Performing Organization Address City/[facility]/ZIP Co de Phone Number [address] [address], [facility] [phone] * LYTES (NA K CL) URINE RANDOM PANEL (12/04/2024 12:17 AM PROJECT ASSOCIATE) Only the most recent of2 resultswithin the time period is included. Sodium Urine 52 Not Established mmol/L 12/04/2024 12:47 AM [facility] Potassium Urine 22.9 Not Established mmol/L 12/04/2024 12:47 AM [facility] Chloride Random Urine 82 Not Established mmol/L 12/04/2024 12:47 AM [facility] Urine URINE SPECIMEN OBTAINED BY CLEAN CATCH PROCEDURE / Unknown Collection / Unknown 12/04/2024 12:17 AM PROJECT ASSOCIATE 12/04/2024 12:22 AM PROJECT ASSOCIATE Juancarlos Lujan MD LAB - URINE CHEMISTR Y ORDERABLES [address] [address], [facility] [phone] * CREATININE URINE RANDOM (12/04/2024 12:17 AM PROJECT ASSOCIATE) Only the most recent of2 resultswithin the time period is included. Creatinine Urine 55.70 Not Established mg/dL 12/04/2024 12:47 AM [facility] Urine URINE SPECIMEN OBTAINED BY CLEAN CATCH PROCEDURE / Unknown Collection / Unknown 12/04/2024 12:17 AM PROJECT ASSOCIATE 12/04/2024 12:22 AM PROJECT ASSOCIATE Juancarlos Lujan MD LAB - URINE CHEMISTR Y ORDERABLES [address] [address], [facility] [phone] * CULTURE BLOOD (12/03/2024 6:17 PM PROJECT ASSOCIATE) Only the most recent of8 resultswithin the time period is included. Culture No growth day 5 ADOLPH 12/08/2024 11:01 PM PROJECT ASSOCIATE [facility] Blood PERIPHERAL BLOOD / Unknown Lab Venipuncture / Unknown 12/03/2024 6:17 PM PROJECT ASSOCIATE 12/03/2024 6:39 PM PROJECT ASSOCIATE Homer Moran MD LAB - MICROBIO LOGY ORDERABLES [facility] [address] [place], [place] [address], [facility] [phone] * CT Head Wo Contrast (12/03/2024 4:56 PM PROJECT ASSOCIATE) Only the most recent of4 resultswithin the time period is included. Anatomical Region Laterality Modality Head Computed Tomogra phy 12/03/2024 5:00 PM PROJECT ASSOCIATE Impressions 12/03/2024 5:01 PM PROJECT ASSOCIATE IMPRESSION: 1. No acute intracranial process. > Interpreting Provider: Abraham Mahajan MD on 12/03/2024 5:01 PM Narrative 12/03/2024 5:01 PM PROJECT ASSOCIATE PROCEDURE: CT HEAD WO CONTRAST DATE/TIME OF [...] extra-axial fluid collections are identified. There is [id number] cerebral volume loss with associated ex vacuo [...] or extra-axial fluid collections are identified. Thereis [id number] cerebral volume loss with associated ex vacuoventricular [...] HIGH SENSITIVE REFLEX 1HOUR (12/03/2024 3:26 PM PROJECT ASSOCIATE) Only the most recent of3 resultswithin the time period is included. Troponin I High Sensitive 11 <=35 ng/L 12/03/2024 4:33 PM [facility] Delta Troponin I HS 12/03/2024 4:33 PM [facility] Comment:Delta value intentio sanyt not calculated. Baseline to 1 hour specimen collection interval exceeded. Blood BLOOD SPECIMEN / Unknown Venipuncture / Unknown 12/03/2024 3:26 PM PROJECT ASSOCIATE 12/03/2024 3:56 PM PROJECT ASSOCIATE aSrika Martin PA-C LAB - FIRE PROTECTION SPECIALIST RY ORDERABLES Performing Organization Address City/[facility]/ZIP Co de Phone Number [facility] [address] [place] [address], [facility] [phone] * SARS-COV-2 (COVID-19) FLU A/B RSV PCR RAPID (12/03/2024 12:36 PM PROJECT ASSOCIATE) COVID-19 PCR Not detected Not detected 12/03/19 1:56 PM PROJECT ASSOCIATE [facility] Influenza A PCR Not detected Not detected 12/03/2024 1:56 PM PROJECT ASSOCIATE [facility] Influenza B PCR Not detected Not detected 12/03/2024 1:56 PM PROJECT ASSOCIATE [facility] RSV PCR Not detected Not detected 12/03/2024 1:56 PM PROJECT ASSOCIATE [facility] Microbiology SPECIMEN FROM NASOPHARYNGEAL STRUCTURE / Unknown Collection / Unknown 12/03/2024 12:36 PM PROJECT ASSOCIATE 12/03/2024 12:40 PM PROJECT ASSOCIATE Narrative [facility] - 12/03/2024 1:56 PM PROJECT ASSOCIATE This nucleic acid amplification assay has been [...] - MICROBI OLOGY ORDERABLES Performing Organization Address [facility] Co de Phone Number [address] [address], [place] [phone] * PTT [facility] (12/03/2024 12:35 PM PROJECT ASSOCIATE) Only the most recent of4 resultswithin the time period is included. APTT 26.4 23.0 - 38.4 Seconds 12/03/2024 1:06 PM [facility] Comment:Suggested therapeuti c range for full dose I.V. unfractionated heparin therapy for venous thromboembolism is 71 to 109 seconds. Blood BLOOD SPECIMEN / Unknown Venipuncture / Unknown 12/03/2024 12:35 PM PROJECT ASSOCIATE 12/03/2024 12:43 PM PROJECT ASSOCIATE Sarika Citlaly [employer] PA-C LAB - COAGULA TION ORDERABLES [facility] [address] [place] [address], [facility] [phone] * PT-INR [facility] (12/03/2024 12:35 PM PROJECT ASSOCIATE) Only the most recent of16 resultswithin the time period is included. Pathologist [facility] PT 14.7 12.1 - 14.8 Seconds 12/03/2024 1:06 PM [facility] INR 1.2 See Comment 12/03/2024 1:06 PM PROJECT ASSOCIATE [facility] Comment:The suggested therap eutic range for standard coumadin (warfarin) therapy is an INR of 2.0-3.0. For high-risk patients (Mechanical Mitral Valve Prosthesis, etc.), the suggested prophylactic therapeutic range is an INR of 2.5-3.5. Blood BLOOD SPECIMEN / Unknown Venipuncture / Unknown 12/03/2024 12:35 PM PROJECT ASSOCIATE 12/03/2024 12:43 PM PROJECT ASSOCIATE Sarika Citlaly [employer] PA-C LAB - COAGULA TION ORDERABLES [facility] [address] [place] [address], [place] [phone] * TROPONIN-I HIGH SENSITIVE BASELINE + 1HR (12/03/2024 12:35 PM PROJECT ASSOCIATE) Only the most recent of3 resultswithin the time period is included. Pathologist [facility] Troponin I High Sensitive 11 <=35 ng/L 12/03/2024 1:15 PM PROJECT ASSOCIATE [facility] Blood BLOOD SPECIMEN / Unknown Venipuncture / Unknown 12/03/2024 12:35 PM PROJECT ASSOCIATE 12/03/2024 12:42 PM PROJECT ASSOCIATE Sarika PERALTAC LAB - FIRE PROTECTION SPECIALIST RY ORDERABLES Performing Organization Address City/[facility]/ZIP Co de Phone Number [address] [address], [facility] [phone] * AMMONIA (12/03/2024 12:35 PM PROJECT ASSOCIATE) Only the most recent of6 resultswithin the time period is included. [facility] Ammonia 51 <=72 umol/L 12/03/2024 12:55 PM PROJECT ASSOCIATE [facility] Blood BLOOD SPECIMEN / Unknown Venipuncture / Unknown 12/03/2024 12:35 PM PROJECT ASSOCIATE 12/03/2024 12:55 PM PROJECT ASSOCIATE Sarika Citlaly [employer] LAB - FIRE PROTECTION SPECIALIST RY ORDERABLES Performing Organization Address [facility] Co de Phone Number [address] [address], [facility] [phone] * EKG 12-LEAD (12/03/2024 12:21 PM PROJECT ASSOCIATE) Only the most recent of3 resultswithin the time period is included. [facility] Ventricular Rate 66 BPM [facility] M[facility] Atrial Rate 66 BPM [facility] P-R Interval 110 ms [facility] QRS Duration ms 86 ms [facility] Q-T Interval ms 378 ms [facility] QTC Calculation (Bezet) 396 ms [facility] Calculated P [place] 15 degrees [facility] Calculated T [place] 85 degrees [facility] Interpretation EKG SINUS RHYTHM POSSIBLE INFERIOR INFARCT , AGE UNDETERMINED ANTERIOR INFARCT (CITED ON OR BEFORE 30-AUG-2024) ABNORMAL ECG WHEN COMPARED WITH ECG OF 06-NOV-2024 15:17, BORDERLINE CRITERIA FOR INFERIOR INFARCT ARE NOW PRESENT Confirmed by JESUS MESA, NESTOR ([id number]) on 12/13/2024 11:34:09 AM [facility] MUSE 12/03/2024 12:2 1 PM PROJECT ASSOCIATE 12/13/2024 11:34 AM PROJECT ASSOCIATE Sarika Boucher Mario PA-C ECG ORDERABLE S [facility] ANDREA * XR CHEST 2VW (12/03/2024 11:24 AM PROJECT ASSOCIATE) Anatomical Region Laterality Modality Chest Digital Radiogra phy 12/03/2024 11:4 7 AM PROJECT ASSOCIATE Narrative 12/03/2024 11:53 AM PROJECT ASSOCIATE PROCEDURE: XR CHEST 2VW, DATE/TIME OF EXAM: 12/03/2024 11:33 AM, LOCATION [facility] INDICATION: R41.82: Altered mental status, unspecified [...] report was drafted by Yaw Alvarez MD (resident in diagnostic radiology) 12/03/2024 11:47 AM. ICandice MD have personally reviewed and interpreted this examination/study. > Interpreting Provider: Candice Gordon MD on 12/03/2024 11:53 AM Procedure Note Candice Gordon MD - 12/03/2024 PROCEDURE: XR CHEST 2VW, DATE/TIME OF EXAM: 12/03/2024 11:33 AM, LOCATION [facility] INDICATION: R41.82: Altered mental status, unspecified [...] report was drafted by Yaw Alvarez MD (resident in diagnostic radiology) 12/03/2024 11:47 AM. ICandice MD have personally reviewed and interpreted this examination/study. > Interpreting Provider: Candice Gordon MD on 12/03/2024 11:53 AM Sarika Martin PA-C DIAGNOSTIC IM AGING ORDERABLES * SYPHILIS ANTIBODY CASCADING REFLEX (11/07/2024 4:27 AM PROJECT ASSOCIATE) Treponema pallidum Antibody Non-react pepe Non-react pepe 11/07/2024 5:23 AM PROJECT ASSOCIATE [facility] Comment: No Laboratory evidence of syphilis infection. Note: Circulating antibodies may be low or undetectable in early infection. If recent exposure is suspected, re-draw sample in 2-4 weeks and repeat testing. Blood BLOOD SPECIMEN / Unknown Venipuncture / Unknown 11/07/2024 4:27 AM PROJECT ASSOCIATE 11/07/2024 4:37 AM PROJECT ASSOCIATE Juancarlos Lujan MD LAB - SEROLOGY ORDER DENISE [facility] [address] [place] [address], [facility] [phone] * HIV-1 HIV-2 ANTIBODY + HIV P24 AG PANEL (11/07/2024 4:27 AM PROJECT ASSOCIATE) Pathologist [facility] HIV Antigen/Antibod y 1 & 2 Non-reacti ve Non-react pepe 11/07/2024 5:23 AM PROJECT ASSOCIATE [facility] Comment:No Laboratory eviden ce of HIV infection. Blood BLOOD SPECIMEN / Unknown Venipuncture / Unknown 11/07/2024 4:27 AM PROJECT ASSOCIATE 11/07/2024 4:37 AM PROJECT ASSOCIATE Juancarlos Lujan MD LAB - CHEMISTRY [facility] PA[facility] RIVAS Performing Organization Address City/[facility]/ZIP Co de Phone Number [address] [address], [facility] [phone] * TSH REFLEX FREE T4 (11/07/2024 4:27 AM PROJECT ASSOCIATE) [facility] TSH 0.697 0.350 - 4.940 uIU/mL 11/07/2024 5:41 AM PROJECT ASSOCIATE [facility] Blood BLOOD SPECIMEN / Unknown Venipuncture / Unknown 11/07/2024 4:27 AM PROJECT ASSOCIATE 11/07/2024 4:39 AM PROJECT ASSOCIATE Juancarlos Lujan MD LAB - CHEMISTRY JOHN PAUL RIVAS Performing Organization Address City/[facility]/ZIP Co de Phone Number [address] [address], [facility] [phone] * VITAMIN B1 (11/07/2024 4:27 AM PROJECT ASSOCIATE) [facility] Vitamin B1 Whole Blood 96 70 - 180 nmol/L 11/09/2024 12:56 PM PROJECT ASSOCIATE [facility] ([facility]) Comment: INTERPRETIVE INFORMATION: Vitamin B1, Whole Blood This assay measures the concentration of thiamine diphosphate (TDP), the primary active form of vitamin B1. Approximately 90 percent of vitamin B1 present in whole blood is TDP. Thiamine and thiamine monophosphate, which comprise the remaining 10 percent, are not measured. This test was developed and its performance characteristics determined by [employer]. It has not been cleared or approved by the [place] Food and Drug Administration. This test was performed in a CLIA certified laboratory and is intended for clinical purposes. Performed By: [facility] [address] [place] [address] Director Writing: Armando Lowe MD, PhD CLIA Number: [id number] Blood BLOOD SPECIMEN / Unknown Venipuncture / Unknown 11/07/2024 4:27 AM PROJECT ASSOCIATE 11/07/2024 4:37 AM PROJECT ASSOCIATE Juancarlos Lujan MD LAB - CHEMISTRY JOHN PAUL RIVAS [facility] ([facility]) [address] [place] [address], [facility] * (ABNORMAL) URINALYSIS W/MICROSCOPIC REFLEX TO CULTURE (11/06/2024 11:44 PM PROJECT ASSOCIATE) Only the most recent of2 resultswithin the time period is included. Color UA Yellow Straw, Yellow 11/07/2024 12:16 AM [facility] Clarity UA Clear Clear 11/07/2024 12:16 AM [facility] Specific [place] UA 1.011 1.005 - 1.030 11/07/2024 12:16 AM [facility] pH UA 5.0 5.0 - 8.0 pH 11/07/2024 12:16 AM [facility] Protein UA Negative Negative 11/07/2024 12:16 AM [facility] Glucose UA 3+(A) Negative 11/07/2024 12:16 AM [facility] Ketone UA Negative Negative 11/07/2024 12:16 AM [facility] Bilirubin UA Negative Negative 11/07/2024 12:16 AM [facility] Blood UA Negative Negative 11/07/2024 12:16 AM [facility] Nitrite UA Negative Negative 11/07/2024 12:16 AM [facility] Leukocyte Esterase Negative Negative 11/07/2024 12:16 AM [facility] Urobilinogen UA Negative Negative mg/dL 11/07/2024 12:16 AM [facility] RBC UA 0-2 None Seen, 0-2, 3-5 /HPF 11/07/2024 12:16 AM [facility] WBC UA 0-5 None Seen, 0-5 /HPF 11/07/2024 12:16 AM [facility] Bacteria UA Trace(A) None /HPF 11/07/2024 12:16 AM [facility] Squamous Epithelial Cells UA None Seen None Seen, 0-2, 3-5 /HPF 11/07/2024 12:16 AM [facility] Mucus UA 1+ /LPF 11/07/2024 12:16 AM [facility] Hyaline Casts UA 0-2 None Seen, 0-2 /LPF 11/07/2024 12:16 AM [facility] Urine URINE SPECIMEN OBTAINED BY CLEAN CATCH PROCEDURE / Unknown Collection / Unknown 11/06/2024 11:44 PM PROJECT ASSOCIATE 11/07/2024 12:04 AM [facility] - 11/07/2024 12:16 AM [facility] Culture Not Indicated [place] Lydia Quintero FRYER LINE HELPER-TRANSFORMER MECHANIC LAB - URINALY SIS ORDERABLES Performing Organization Address [facility] Co de Phone Number [address] [phone] [phone] * URINE DRUG SCREEN IMMUNOASSAY (11/06/2024 11:43 PM PROJECT ASSOCIATE) Pathologist [facility] Amphetamines Screen Urine Negative Negative: < 1000 ng/mL 11/07/2024 12:43 AM [facility] Barbiturates Screen Urine Negative Negative: < 200 ng/mL 11/07/2024 12:43 AM [facility] Benzodiazepine Screen Urine Negative Negative: < 200 ng/mL 11/07/2024 12:43 AM [facility] Opiates Urine Negative Negative: < 300 ng/mL 11/07/2024 12:43 AM [facility] Cocaine Metabolites Urine Negative Negative: < 300 ng/mL 11/07/2024 12:43 AM [facility] Phencyclidine Screen Urine Negative Negative: < 25 ng/ml 11/07/2024 12:43 AM [facility] Cannabinoids Screen Urine Negative Negative: <50 ng/mL 11/07/2024 12:43 AM [facility] Methadone Screen Urine Negative Negative: < 300 ng/mL 11/07/2024 12:43 AM [facility] Fentanyl Screen Urine Negative Negative: <1.5 ng/mL 11/07/2024 12:43 AM [facility] Urine URINE / Unknown Collection / Unknown 11/06/2024 11:43 PM PROJECT ASSOCIATE 11/07/2024 12:04 AM PROJECT ASSOCIATE [facility] - 11/07/2024 12:43 AM PROJECT ASSOCIATE The Urine Toxicology Screening Panel does not screen for Propoxyphene, Meprobamate, Carisoprodol, Trazodone, obeq-amo-miyyggm medications and/or volatiles (Acetone, Isopropanol, Methanol or Ethylene Glycol). Ethanol, Salicylate, Acetaminophen, Tricyclic Antidepressants and several therapeutic drugs may be individually assayed in serum or plasma specimen. Toxicology testing by the [facility] is an aid to medical diagnosis and treatment of patients. No documented chain of custody was maintained. Results are intended to be used for clinical purposes only. Juancarlos Lujan MD LAB - URINE CHEMISTR Y ORDERABLES Performing Organization Address [facility]/ZIP Co de Phone Number [address] [address], [facility] [phone] * PROTEIN BODY FLUID (11/06/2024 8:27 PM PROJECT ASSOCIATE) Protein Fluid 1.2 Not Established For Fluids g/dL 11/06/2024 9:22 PM [facility] Fluid Type Peritoneal Fluid 11/06/2024 9:22 PM [facility] Fluid PERITONEAL FLUID / Unknown Collection / Unknown 11/06/2024 8:27 PM PROJECT ASSOCIATE 11/06/2024 8:32 PM PROJECT ASSOCIATE [facility] - 11/06/2024 9:22 PM PROJECT ASSOCIATE The analytical performance of this test has been independently validated by the laboratory. A reference range has not been established for this fluid. Comparison of this result with the concentration in blood, serum or plasma is recommended. Homer Hallman MD LAB - BODY FLUID ORD ERABLES Performing Organization Address [facility] Co de Phone Number [address] [address], [facility] [phone] * GLUCOSE BODY FLUID (11/06/2024 8:27 PM PROJECT ASSOCIATE) Glucose Fluid 126 Not Established For Fluids mg/dL 11/06/2024 9:55 PM [facility] Fluid Type Peritoneal Fluid 11/06/2024 9:55 PM [facility] Fluid PERITONEAL FLUID / Unknown Collection / Unknown 11/06/2024 8:27 PM PROJECT ASSOCIATE 11/06/2024 8:32 PM PROJECT ASSOCIATE [facility] - 11/06/2024 9:55 PM PROJECT ASSOCIATE The analytical performance of this test has been independently validated by the laboratory. A reference range has not been established for this fluid. Comparison of this result with the concentration in blood, serum or plasma is recommended. Homer Hallman MD LAB - BODY FLUID ORD ERABLES [facility] [address] [place] [address], [facility] [phone] * DIFFERENTIAL MANUAL FLUID (11/06/2024 8:27 PM PROJECT ASSOCIATE) Only the most recent of2 resultswithin the time period is included. Fluid Source Peritoneal 11/06/2024 10:05 PM [facility] Body Fluid Total Cell Count 100 x10E6/L 11/06/2024 10:05 PM [facility] Neutrophils Fluid Percent 16 % 11/06/2024 10:05 PM [facility] Lymphocytes Fluid Percent 43 % 11/06/2024 10:05 PM [facility] Comment:Reactive Lymphocytes present. Macrophages Fluid Percent 36 % 11/06/2024 10:05 PM [facility] Eosinophils Fluid Percent 5 % 11/06/2024 10:05 PM [facility] Fluid PERITONEAL FLUID / Unknown Collection / Unknown 11/06/2024 8:27 PM PROJECT ASSOCIATE 11/06/2024 8:32 PM [facility] - 11/06/2024 10:05 PM PROJECT ASSOCIATE No reference ranges established for body fluid differential cell counts. The test results must be integrated into the clinical context for interpretation. Homer Hallman MD LAB - BODY FLUID ORD ERABLES Performing Organization Address [facility] Co de Phone Number [address] [address], [facility] [phone] * CELL COUNT W DIFFERENTIAL FLUID (11/06/2024 8:27 PM PROJECT ASSOCIATE) Only the most recent of2 resultswithin the time period is included. Fluid Source Peritoneal 11/06/2024 10:05 PM [facility] Fluid Appearance SLIGHTLY HAZY 11/06/2024 10:05 PM [facility] Fluid Color PALE YELLOW 11/06/2024 10:05 PM [facility] Total Nucleated Cells Fluid 92 Reference Range Not Established x10E6/L 11/06/2024 10:05 PM [facility] RBC Count Fluid <2,000 Reference Range Not Established x10E6/L 11/06/2024 10:05 PM [facility] Fluid PERITONEAL FLUID / Unknown Collection / Unknown 11/06/2024 8:27 PM PROJECT ASSOCIATE 11/06/2024 8:32 PM PROJECT ASSOCIATE [facility] - 11/06/2024 10:05 PM PROJECT ASSOCIATE No reference ranges established for body fluid cell counts. Any reference ranges provided are derived from published literature. The test results must be integrated into the clinical context for interpretation. Homer Hallman MD LAB - BODY FLUID ORD ERABLES Performing Organization Address [facility] Co de Phone Number [address] [address], [facility] [phone] * (ABNORMAL) CULTURE FLUID+GRAM STAIN (11/06/2024 8:15 PM PROJECT ASSOCIATE) Only the most recent of2 resultswithin the time period is included. Culture Light Achromobacter species(AA) ADOLPH 11/10/2024 4:24 AM [facility] Comment:Isolate is multi tammy g resistant organism (MDRO). Gram Stain Light Red blood cells 11/10/2024 4:24 AM PROJECT ASSOCIATE [facility] Gram Stain Rare Polymorphonuclear cells 11/10/2024 4:24 AM [facility] Gram Stain No organisms seen 025 4:24 AM PROJECT ASSOCIATE [facility] Other PERITONEAL FLUID / Unknown Collection / Unknown 11/06/2024 8:15 PM PROJECT ASSOCIATE 11/06/2024 8:32 PM PROJECT ASSOCIATE Narrative [facility] - 11/10/2024 4:24 AM PROJECT ASSOCIATE This isolate is a multidrug resistant organism [...] Homer Hallman MD LAB - MICROBIOLOGY O RDBOURBONBLES [facility] [address] [place], [address] [phone] * Paracentesis (11/06/2024 6:28 PM PROJECT ASSOCIATE) Narrative Homer Hallman MD - 11/06/2024 6:28 PM PROJECT ASSOCIATE Homer Hallman MD 11/06/2024 8:11 PM Paracentesis [...] (COVID-19)+INFLU A+B PCR RAPID (11/06/2024 3:40 PM PROJECT ASSOCIATE) COVID-19 PCR Not detected Not detected 11/06/19 5:10 PM PROJECT ASSOCIATE [facility] Influenza A Rapid JOHNNIE Not Detected Not Detected 11/06/2024 5:10 PM PROJECT ASSOCIATE [facility] Influenza B JOHNNIE Rapid Not Detected Not Detected 11/06/2024 5:10 PM PROJECT ASSOCIATE [facility] Microbiology SPECIMEN FROM NASOPHARYNGEAL STRUCTURE / Unknown Collection / Unknown 11/06/2024 3:40 PM PROJECT ASSOCIATE 11/06/2024 4:29 PM PROJECT ASSOCIATE Narrative [facility] - 11/06/2024 5:10 PM PROJECT ASSOCIATE Influenza assay performed by [employer]. [...] acid amplification assay performance was validated by [facility]. This test has been authorized by [...] Hallman MD LAB - MICROBIOLOGY O RDERABLES [facility] [place] [address], [facility] [phone] * XR Chest 1Vw Portable (11/06/2024 2:29 PM PROJECT ASSOCIATE) Only the most recent of4 resultswithin the time period is included. Anatomical Region Laterality Modality Chest Digital Radiogra phy 11/06/2024 2:35 PM PROJECT ASSOCIATE Narrative 11/06/2024 2:46 PM PROJECT ASSOCIATE PROCEDURE: XR CHEST 1VW PORTABLE, DATE/TIME OF EXAM: 11/06/2024 2:30 PM, LOCATION [facility] INDICATION: G93.40: Encephalopathy, unspecified type ADDITIONAL [...] pneumothorax. Report dictated by Jonathan Torres MD, (Pipe Coverer Helper). I, Christophe Rahman MD have personally reviewed and interpreted this examination/study. > Interpreting Provider: Christophe Rahman MD on 11/06/2024 2:46 PM Procedure Note Christophe Rahman MD - 11/06/2024 PROCEDURE: XR CHEST 1VW PORTABLE, DATE/TIME OF EXAM: 11/06/2024 2:30 PM, LOCATION [facility] INDICATION: G93.40: Encephalopathy, unspecified type ADDITIONAL [...] pneumothorax. Report dictated by Jonathan Torres MD, (Pipe Coverer Helper). I, Christophe Rahman MD have personally reviewed and interpreted this examination/study. > Interpreting Provider: Christophe Rahman MD on 11/06/2024 2:46 PM Homer Hallman MD DIAGNOSTIC IMAGING O RDERABLES * LIPASE BLOOD (11/06/2024 12:54 PM PROJECT ASSOCIATE) Only the most recent of2 resultswithin the time period is included. [facility] Lipase 16 8 - 78 U/L 11/06/2024 1:37 PM [facility] Blood BLOOD SPECIMEN / Unknown Venipuncture / Unknown 11/06/2024 12:54 PM PROJECT ASSOCIATE 11/06/2024 1:07 PM PROJECT ASSOCIATE Narrative [facility] - 11/06/2024 1:37 PM PROJECT ASSOCIATE Lipase results from the [employer] Al[employer] analyzer may not be comparable with other methodologies. [place] Quintero APRN-TRANSFORMER MECHANIC LAB - FIRE PROTECTION SPECIALIST RY ORDERABLES [address] [address], [facility] [phone] * (ABNORMAL) CBC W/O DIFFERENTIAL (10/28/2024 6:14 AM PROJECT ASSOCIATE) Only the most recent of5 resultswithin the time period is included. Pathologist [facility] WBC 3.0(L) 4.0 - 10.7 x10E9/L 10/28/2024 6:55 AM [facility] RBC Count 2.87(L) 4.30 - 5.80 x10E12/L 10/28/2024 6:55 AM [facility] Hemoglobin 8.9(L) 13.3 - 17.5 g/dL 10/28/2024 6:55 AM [facility] Hematocrit 26.5(L) 38.7 - 51.1 % 10/28/2024 6:55 AM [facility] MCV 92.3 80.0 - 98.0 fL 10/28/2024 6:55 AM [facility] MCH 31.0 26.7 - 33.6 pg 10/28/2024 6:55 AM [facility] MCHC 33.6 31.7 - 36.3 g/dL 10/28/2024 6:55 AM [facility] RDW-CV 16.5(H) 11.3 - 14.8 % 10/28/2024 6:55 AM [facility] Platelet Count 109(L) 150 - 420 x10E9/L 10/28/2024 6:55 AM [facility] MPV 10.9 7.8 - 11.4 fL 10/28/2024 6:55 AM [facility] Blood BLOOD SPECIMEN / Unknown Lab Venipuncture / Unknown 10/28/2024 6:14 AM PROJECT ASSOCIATE 10/28/2024 6:39 AM PROJECT ASSOCIATE Rigoberto Mcclain MD LAB - HEMATOLOGY ORD ERABLES Performing Organization Address [facility] Co de Phone Number [address] [phone] [phone] * (ABNORMAL) VITAMIN D 1,25 DIHYDROXY (10/26/2024 4:00 AM PROJECT ASSOCIATE) Pathologist [facility] Vitamin D, 1,25 Dihydroxy 18.8(L) 19.9 - 79.3 pg/mL 10/29/2024 12:19 AM PROJECT ASSOCIATE [facility] ([facility]) Comment: INTERPRETIVE INFORMATION: Vitamin D, 1,25-Dihydroxy This test is primarily indicated during patient evaluation for hypercalcemia and renal failure. A normal result does not rule out Vitamin D deficiency. The recommended test for diagnosing Vitamin D deficiency is Vitamin D 25-hydroxy. Performed By: [employer] [address] [place] [id number] Director Writing: Armando Lowe MD, PhD CLIA Number: [id number] Blood BLOOD SPECIMEN / Unknown Venipuncture / Unknown 10/26/2024 4:00 AM PROJECT ASSOCIATE 10/26/2024 4:10 AM PROJECT ASSOCIATE Shravan Jessica MD LAB - CHEMISTRY OR DERABLES [facility] ([facility]) [address] [place] [address], [facility] * SODIUM URINE RANDOM (10/25/2024 10:40 AM PROJECT ASSOCIATE) Sodium Urine 30 Not Established mmol/L 10/25/2024 11:05 AM PROJECT ASSOCIATE [facility] Urine URINE SPECIMEN OBTAINED BY CLEAN CATCH PROCEDURE / Unknown Collection / Unknown 10/25/2024 10:40 AM PROJECT ASSOCIATE 10/25/2024 10:47 AM PROJECT ASSOCIATE Shravan Jessica MD LAB - URINE CHEMIS TRY ORDERABLES [address] [place] [address], [facility] [phone] * US Abdomen Ltd W Comp Doppler (10/25/2024 8:20 AM PROJECT ASSOCIATE) Anatomical Region Laterality Modality Abdomen Ultrasound 10/25/2024 12:3 6 PM PROJECT ASSOCIATE Impressions 10/27/2024 1:43 AM PROJECT ASSOCIATE IMPRESSION: 1.Hepatic cirrhosis with sequela of portal hypertension including moderate to large volume ascites. 2.Mildly decreased velocity of flow within the main portal vein (13.9 cm/s). No portal vein thrombosis. Otherwise, normal hepatic Doppler evaluation. 3.No evidence of cholelithiasis or acute cholecystitis. > Dictated by Tom Barreto DO,(radiology technologist). I, Lalo St MD have personally reviewed and interpreted this examination/study. > Interpreting Provider: Lalo St MD on 10/27/2024 1:43 AM Narrative 10/27/2024 1:43 AM PROJECT ASSOCIATE PROCEDURE: US ABDOMEN LTD W COMP DOPPLER, DATE/TIME OF EXAM: 10/25/2024 8:54 AM, LOCATION [facility] INDICATION: K76.82: Hepatic encephalopathy (HCC) Ordering [...] DOPPLER, DATE/TIME OF EXAM:10/25/2024 8:54 AM, LOCATION [facility] INDICATION: K76.82: Hepatic encephalopathy (HCC) Ordering [...] cholecystitis. > Dictated by Tom Barreto DO,(radiology technologist). I, Lalo St MD have personally reviewed and interpreted this examination/study. > Interpreting Provider: Lalo St MD on 10/27/2024 1:43 AM Rigoberto Mcclain MD ORDERABLES * PTH INTACT W/O CALCIUM (10/25/2024 4:54 AM PROJECT ASSOCIATE) PTH Intact 13.2 8.0 - 77.0 pg/mL 10/25/2024 6:19 AM PROJECT ASSOCIATE [facility] Blood BLOOD SPECIMEN / Unknown Lab Venipuncture / Unknown 10/25/2024 4:54 AM PROJECT ASSOCIATE 10/25/2024 5:46 AM PROJECT ASSOCIATE Rigoberto Mcclain MD LAB [facility] Organization Address City/State/ZIP Co de Phone Number [address] [address], [facility] [phone] * (ABNORMAL) PTH RELATED PEPTIDE (10/25/2024 4:54 AM PROJECT ASSOCIATE) PTH Related Peptide 3.1(H) 0.0 - 2.3 pmol/L 11/03/2024 1:05 PM PROJECT ASSOCIATE [facility] ([facility]) Comment: INTERPRETIVE INFORMATION: Parathyroid Hormone-Related Peptide This test was developed and its performance characteristics determined by [facility]. It has not been cleared or approved by the US Food and Drug Administration. This test was performed in a CLIA certified laboratory and is intended for clinical purposes. Performed By: [employer] [address] [place], [place] [id number] Director Writing: Armando Lowe MD, PhD CLIA Number: [id number] Blood BLOOD SPECIMEN / Unknown Lab Venipuncture / Unknown 10/25/2024 4:54 AM PROJECT ASSOCIATE 10/25/2024 5:29 AM PROJECT ASSOCIATE Rigoberto Mcclain MD LAB - CHEMISTRY JOHN PAUL RIVAS Performing Organization Address City/[facility]/ZIP Co de Phone Number [facility] ([facility]) [address] [place], [place] [id number] * (ABNORMAL) VITAMIN D 25-HYDROXY (10/25/2024 4:54 AM PROJECT ASSOCIATE) [facility] Vitamin D, 25 Hydroxy 27.0(L) 30.0 - 80.0 ng/mL 10/25/2024 6:33 AM PROJECT ASSOCIATE [facility] Comment: The recommendations for 25-Hydroxy Vitamin [...] Lab Venipuncture / Unknown 10/25/2024 4:54 AM PROJECT ASSOCIATE 10/25/2024 5:29 AM PROJECT ASSOCIATE Rigoberto Mcclain MD LAB - CHEMISTRY JOHN PAUL RIVAS [address] [address], [place] [phone] * LDH BLOOD (10/25/2024 4:54 AM PROJECT ASSOCIATE) Only the most recent of2 resultswithin the time period is included. LDH Total 203 125 - 243 Units/L 10/25/2024 6:19 AM [facility] Blood BLOOD SPECIMEN / Unknown Lab Venipuncture / Unknown 10/25/2024 4:54 AM PROJECT ASSOCIATE 10/25/2024 5:29 AM PROJECT ASSOCIATE Rigoberto Mcclain MD LAB - CHEMISTRY JOHN PAUL RIVAS Performing Organization Address [facility] Co de Phone Number [address] [address], [facility] [phone] * (ABNORMAL) CALCIUM IONIZED WHOLE BLOOD (10/24/2024 8:47 AM PROJECT ASSOCIATE) [facility] Calcium Ionized 1.54 mmol/L 10/24/2024 9:03 AM [facility] pH 7.41 7.35 - 7.45 pH 10/24/2024 9:03 AM [facility] Ionized Calcium pH Adjusted 1.55(H) 1.19 - 1.34 mmol/L 10/24/2024 9:03 AM [facility] Blood BLOOD SPECIMEN / Unknown Lab Venipuncture / Unknown 10/24/2024 8:47 AM PROJECT ASSOCIATE 10/24/2024 8:58 AM PROJECT ASSOCIATE Rigoberto Mcclain MD LAB - CHEMISTRY JOHN PAUL RIVAS Performing Organization Address [facility] Co de Phone Number [address] [address], [facility] [phone] * (ABNORMAL) HEMOGLOBIN A1C (10/24/2024 8:47 AM PROJECT ASSOCIATE) Only the most recent of2 resultswithin the time period is included. Pathologist [facility] Hemoglobin A1c 7.9(H) <=5.6 % 10/24/2024 12:41 PM [facility] Estimated Average Glucose 180 mg/dL 10/24/2024 12:41 PM [facility] Comment: HbA1c Interpretation: Normal : < 5.7% Pre-diabetes: 5.7-6.4% Diabetes: Equal to or greater than 6.5% Test results diagnostic of diabetes should be repeated for confirmation. Treatment target values recommended by ADA and other clinical organizations should be used to evaluate metabolic control in patients. Reference: [place] Diabetes Association, Standards of Care in Diabetes -2020 In patients 70 years and older consider HbA1c target range of 7.0-7.5% (Reference: Armen López et al. JAMDA. 2012) The Sebia assay for the measurement of HbA1c is a National Glycohemoglobin Standardization Program (NGSP) certified method. Blood BLOOD SPECIMEN / Unknown Lab Venipuncture / Unknown 10/24/2024 8:47 AM PROJECT ASSOCIATE 10/24/2024 9:01 AM PROJECT ASSOCIATE Rigoberto Mcclain MD LAB - CHEMISTRY JOHN PAUL RIVAS Performing Organization Address City/[facility]/ZIP Co de Phone Number [address] [address], [facility] [phone] * LACTIC ACID BLOOD (10/24/2024 8:47 AM PROJECT ASSOCIATE) Only the most recent of5 resultswithin the time period is included. Lactic Acid-Stat 2.0 <=2.0 mmol/L 10/24/2024 9:33 AM PROJECT ASSOCIATE [facility] Blood BLOOD SPECIMEN / Unknown Lab Venipuncture / Unknown 10/24/2024 8:47 AM PROJECT ASSOCIATE 10/24/2024 9:02 AM PROJECT ASSOCIATE Rigoberto Mcclain MD LAB - CHEMISTRY JOHN PAUL RIVAS Performing Organization Address City/[facility]/ZIP Co de Phone Number [address] [address], [place] [phone] * (ABNORMAL) BLOOD GASES REINA + COOX PANEL (10/23/2024 6:25 PM PROJECT ASSOCIATE) Only the most recent of2 resultswithin the time period is included. pH Venous 7.45(H) 7.32 - 7.42 pH 10/23/2024 6:44 PM PROJECT ASSOCIATE [facility] pO2 Venous 86(H) 35 - 40 mmHg 10/23/2024 6:44 PM [facility] pCO2 Venous 23(L) 40 - 50 mmHg 10/23/2024 6:44 PM [facility] HCO3 Venous 16.0(L) 20 - 30 mmol/L 10/23/2024 6:44 PM [facility] Base Excess Venous -6.8(L) -2.0 - 2.0 mmol/L 10/23/2024 6:44 PM [facility] Oxyhemoglobin Venous 96.1 % 10/05 6:44 PM [facility] Deoxyhemoglobin (HHB) Venous % 2.1 % 10/23/2024 6:44 PM [facility] Methemoglobin 0.8 0.0 - 2.0 % 10/23/2024 6:44 PM [facility] Carboxyhemoglobin 1.0 0.0 - 2.0 % 2023 6:44 PM [facility] O2 Content Venous 12.4 Interpret within clinical context ml/dL 10/23/2024 6:44 PM [facility] Hemoglobin by COOX 9.1(L) 12.0 - 17.6 g/dL 10/23/2024 6:44 PM [facility] O2 Saturation Venous 98 >=70 % 10/05 6:44 PM [facility] FI O2 Mixed Venous 21.0 % 2023 6:44 PM [facility] Blood BLOOD SPECIMEN / Unknown Lab Venipuncture / Unknown 10/23/2024 6:25 PM PROJECT ASSOCIATE 10/23/2024 6:36 PM [facility] - 10/23/2024 6:44 PM PROJECT ASSOCIATE Carboxyhemoglobin Normal Concentration: Non-smokers: 0-2%; Smokers: 0-9%; Toxic: >20% Rigoberto Mcclain MD LAB - BLOOD GASES OR DERABLES [facility] [address] [place] [address], [facility] [phone] * (ABNORMAL) LACTIC ACID BLOOD REFLEX TO REPEAT (10/23/2024 6:11 PM PROJECT ASSOCIATE) Only the most recent of3 resultswithin the time period is included. Lactic Acid-Stat 7.9(HH) <=2.0 mmol/L 10/23/2024 6:46 PM PROJECT ASSOCIATE [facility] Blood BLOOD SPECIMEN / Unknown Lab Venipuncture / Unknown 10/23/2024 6:11 PM PROJECT ASSOCIATE 10/23/2024 6:18 PM PROJECT ASSOCIATE Paris G Quintero FRYER LINE HELPER-TRANSFORMER MECHANIC LAB - FIRE PROTECTION SPECIALIST RY ORDERABLES [facility] [address] [place] [address], [facility] [phone] * Paracentesis (10/23/2024 4:59 PM PROJECT ASSOCIATE) Narrative Muna Waller MD - 10/23/2024 4:59 PM PROJECT ASSOCIATE Elma Deutsch MD 10/23/2024 5:01 PM Paracentesis [...] Muna Waller MD PROCEDURE/MINOR SURG ICAL ORDERABLES * (ABNORMAL) RENAL FUNCTION PANEL (09/02/2024 6:57 AM CDT) Only the most recent of3 resultswithin the time period is included. BUN 18 7 - 26 mg/dL 09/02/2024 8:23 AM [facility] Creatinine 0.69(L) 0.71 - 1.16 mg/dL 09/02/2024 8:23 AM T [facility] Sodium 135(L) 136 - 145 mmol/L 09/02/2024 8:23 AM [facility] Potassium 3.5 3.5 - 4.5 mmol/L 09/02/2024 8:23 AM [facility] Chloride 107 98 - 107 mmol/L 09/02/2024 8:23 AM [facility] CO2 23 22 - 29 mmol/L 09/02/2024 8:23 AM [facility] Glucose 193(H) 70 - 99 mg/dL 09/02/2024 8:23 AM [facility] Albumin 2.3(L) 3.4 - 5.0 g/dL 09/02/2024 8:23 AM [facility] Calcium 8.9 8.4 - 10.2 mg/dL 09/02/2024 8:23 AM [facility] Phosphorus 2.1(L) 2.8 - 5.1 mg/dL 09/02/2024 8:23 AM [facility] Anion Gap 5(L) 6 - 16 09/02/2024 8:23 AM [facility] BUN/Creatinine Ratio 26(H) 7 - 23 09/02/2024 8:23 AM [facility] Osmolality Calculated 287 275 - 295 mOsm/kg 09/02/2024 8:23 AM [facility] eGFR by CKD-EPI >90 >=90 mL/min/1.7 3 m2 09/02/2024 8:23 AM [facility] Blood BLOOD SPECIMEN / Unknown Lab Venipuncture / Unknown 09/02/2024 6:57 AM CDT 09/02/2024 7:57 AM CDT Juancarlos Lujan MD LAB - CHEMISTRY JOHN PAUL RIVAS [facility] Organization Address City/State/ZIP Co de Phone Number [facility] [address] [place] [address], [facility] [phone] * CULTURE URINE (08/31/2024 12:37 AM CDT) Culture Urine <10,000 CFU/mL urogenital sujit ADOLPH 09/01/2024 7:51 AM T [facility] Urine URINE SPECIMEN OBTAINED BY CLEAN CATCH PROCEDURE / Unknown Collection / Unknown 08/31/2024 12:37 AM CDT 08/31/2024 12:56 AM CDT Juancarlos Lujan MD LAB - MICROBIOLOGY O RDERABLES [facility] [address] [place] [address], [facility] [phone] * (ABNORMAL) BASIC METABOLIC PANEL (CALCIUM TOTAL) (08/30/2024 8:04 PM CDT) BUN 37(H) 7 - 26 mg/dL 08/30/2024 8:57 PM [facility] Creatinine 1.06 0.71 - 1.16 mg/dL 08/30/2024 8:57 PM [facility] Sodium 133(L) 136 - 145 mmol/L 08/30/2024 8:57 PM [facility] Potassium 4.5 3.5 - 4.5 mmol/L 08/30/2024 8:57 PM [facility] Chloride 101 98 - 107 mmol/L 08/30/2024 8:57 PM [facility] CO2 18(L) 22 - 29 mmol/L 08/30/2024 8:57 PM [facility] Glucose 211(H) 70 - 99 mg/dL 08/30/2024 8:57 PM [facility] Calcium 9.8 8.4 - 10.2 mg/dL 08/30/2024 8:57 PM [facility] Anion Gap 14 6 - 16 08/30/2024 8:57 PM [facility] BUN/Creatinine Ratio 35(H) 7 - 23 08/30/2024 8:57 PM [facility] Osmolality Calculated 291 275 - 295 mOsm/kg 08/30/2024 8:57 PM [facility] eGFR by CKD-EPI 71(L) >=90 mL/min/1.7 3 m2 08/30/2024 8:57 PM [facility] Blood BLOOD SPECIMEN / Unknown Venipuncture / Unknown 08/30/2024 8:04 PM CDT 08/30/2024 8:14 PM CDT Kayli Kennedy MD LAB - CHEMISTRY JOHN PAUL RIVAS [facility] [address] [place] [address], [facility] [phone] * (ABNORMAL) URINALYSIS REFLEX TO MICROSCOPIC NO CULTURE (08/16/2024 12:45 PM CDT) Color UA Yellow Straw, Yellow 08/16/2024 1:17 PM [facility] Clarity UA Clear Clear 08/16/2024 1:17 PM [facility] Specific [place] UA 1.018 1.005 - 1.030 08/16/2024 1:17 PM [facility] pH UA 5.0 5.0 - 8.0 pH 08/16/2024 1:17 PM [facility] Protein UA Negative Negative 08/16/2024 1:17 PM [facility] Glucose UA 3+(A) Negative 08/16/2024 1:17 PM [facility] Ketone UA Negative Negative 08/16/2024 1:17 PM [facility] Bilirubin UA Negative Negative 08/16/2024 1:17 PM [facility] Blood UA Negative Negative 08/16/2024 1:17 PM [facility] Nitrite UA Negative Negative 08/16/2024 1:17 PM [facility] Leukocyte Esterase Negative Negative 08/16/2024 1:17 PM [facility] Urobilinogen UA Negative Negative mg/dL 08/16/2024 1:17 PM [facility] RBC UA 0-2 None Seen, 0-2, 3-5 /HPF 08/16/2024 1:17 PM [facility] WBC UA 0-5 None Seen, 0-5 /HPF 08/16/2024 1:17 PM [facility] Squamous Epithelial Cells UA None Seen None Seen, 0-2, 3-5 /HPF 08/16/2024 1:17 PM [facility] Mucus UA 1+ /LPF 08/16/2024 1:17 PM [facility] Hyaline Casts UA 3-5(A) None Seen, 0-2 /LPF 08/16/2024 1:17 PM CDT [facility] Urine URINE SPECIMEN OBTAINED BY CLEAN CATCH PROCEDURE / Unknown Collection / Unknown 08/16/2024 12:45 PM CDT 08/16/2024 12:59 PM CDT Narrative [facility] - 08/16/2024 1:17 PM CDT Talisha Pretty MD LAB - URINALYSIS ORDERABLES Performing Organization Address [facility] Co de Phone Number [address] [address], [facility] [phone] * (ABNORMAL) IMMUNOFIXATION BLOOD (06/26/2024 2:09 PM CDT) [facility] Immunofixation Serum Abnormal Pattern(A) Normal Pattern 06/30/2024 3:13 PM CDT [facility] Comment: Serum immunofixation electrophoresis shows polyclonal IgG, IgA, and IgM immunoglobulins. Serum immunofixation electrophoresis identifies an IgG kappa monoclonal immunoglobulin. Mary Flowers MD Attending Physician Department of Pathology Transfusion Medicine *The electrophoresis pattern and the interpretation have been reviewed and verified by the teaching physician. Blood BLOOD SPECIMEN / Unknown Lab Venipuncture / Unknown 06/26/2024 2:09 PM CDT 06/26/2024 2:10 PM CDT Lily James MD LAB - CHEMISTRY JOHN PAUL RIVAS Performing Organization Address [facility] Co de Phone Number [address] [address], [facility] [phone] * (ABNORMAL) KAPPA/LAMBDA LITE CHAIN FREE PANEL (06/26/2024 2:09 PM CDT) [facility] Quant Free Light Chain 58.79(H) 3.30 - 19.40 mg/L 06/28/2024 7:41 AM CDT [facility] ([facility]) Comment: INTERPRETIVE INFORMATION: Homeland Qnt Free Light Chains Undetected antigen excess is a rare event but cannot be excluded. Free light chain results should always be interpreted in conjunction with other clinical and laboratory findings. Lambda Free Light Chain Quantitative 44.88(H) 5.71 - 26.30 mg/L 06/28/2024 7:41 AM CDT [facility]) Comment: INTERPRETIVE INFORMATION: Lambda Qnt Free Light Chains Undetected antigen excess is a rare event but cannot be excluded. Free light chain results should always be interpreted in conjunction with other clinical and laboratory findings. Homeland/Lambda Free Light Chain ratio 1.31 0.26 - 1.65 06/28/2024 7:41 AM CDT [facility]) Comment: Performed By: [employer] [address] [place] [address] Director Writing: Armando Lowe MD, PhD CLIA Number: [id number] Blood BLOOD SPECIMEN / Unknown Lab Venipuncture / Unknown 06/26/2024 2:09 PM CDT 06/26/2024 2:10 PM CDT Lily James MD LAB - CHEMISTRY EWELINAE EVELYN [facility] Organization Address City/State/ZIP Co de Phone Number [facility]) [address] [place] [address], [facility] * (ABNORMAL) PROTEIN ELECTROPHORESIS BLOOD (06/26/2024 2:09 PM CDT) Interpretation Serum PE Abnormal Pattern(A) Normal Pattern 06/30/2024 3:13 PM CDT [facility] Comment: Serum capillary electrophoresis shows characteristic bands corresponding to albumin, alpha and beta globulins and polyclonal immunoglobulins. There is a band of restricted electrophoretic mobility in the gamma region that may represent a monoclonal immunoglobulin. Serum immunosubtraction studies to follow. Mary Flowers MD Attending Physician Department of Pathology Transfusion Medicine *The electrophoresis pattern and the interpretation have been reviewed and verified by the teaching physician. Protein Total 6.5 6.0 - 8.3 g/dL 06/30/2024 3:13 PM CDT [facility] Albumin 2.7(L) 3.3 - 5.6 g/dL 06/30/2024 3:13 PM CDT [facility] Alpha-1 Globulins 0.5(H) 0.2 - 0.4 g/dL 06/30/2024 3:13 PM CDT [facility] Alpha-2 Globulins 0.8 0.5 - 1.0 g/dL 06/30/2024 3:13 PM CDT [facility] Beta Globulins 0.7 0.6 - 1.1 g/dL 06/30/2024 3:13 PM CDT [facility] Gamma Globulins 1.8(H) 0.6 - 1.6 g/dL 06/30/2024 3:13 PM CDT [facility] Blood BLOOD SPECIMEN / Unknown Lab Venipuncture / Unknown 06/26/2024 2:09 PM CDT 06/26/2024 2:10 PM CDT Lily James MD LAB - CHEMISTRY JOHN PAUL RIVAS Performing Organization Address City/[facility]/ZIP Co de Phone Number [address] [address], [place] [phone] * IGM BLOOD (06/26/2024 2:09 PM CDT) IgM 64 37 - 286 mg/dL 06/26/2024 2:44 PM CDT [facility] Blood BLOOD SPECIMEN / Unknown Lab Venipuncture / Unknown 06/26/2024 2:09 PM CDT 06/26/2024 2:10 PM CDT Lily James MD LAB - CHEMISTRY JOHN PAUL RIVAS Performing Organization Address City/[facility]/ZIP Co de Phone Number [address] [address], [place] [phone] * (ABNORMAL) IGG BLOOD (06/26/2024 2:09 PM CDT) IgG 2,181(H) 767 - 1,590 mg/dL 06/26/2024 2:44 PM CDT [facility] Blood BLOOD SPECIMEN / Unknown Lab Venipuncture / Unknown 06/26/2024 2:09 PM CDT 06/26/2024 2:10 PM CDT Lily James MD LAB - CHEMISTRY JOHN PAUL RIVAS [address] [address], [facility] [phone] * IGA BLOOD (06/26/2024 2:09 PM CDT) [facility] IgA 219 61 - 356 mg/dL 06/26/2024 2:44 PM CDT [facility] Blood BLOOD SPECIMEN / Unknown Lab Venipuncture / Unknown 06/26/2024 2:09 PM CDT 06/26/2024 2:10 PM CDT Lily James MD LAB - CHEMISTRY JOHN PAUL RIVAS Performing Organization Address [facility] Co de Phone Number [address] [address], [facility] [phone] * ALPHA FETOPROTEIN BLOOD TUMOR MARKER (06/17/2024 1:54 PM CDT) [facility] Alpha-Fetoprote in Tumor Marker <2.0 <=8.3 ng/mL 06/17/2024 3:41 PM CDT [facility] Comment: AFP values will vary depending on testing procedure used. Results are not comparable across different methods. AFP values obtained by [facility] using an [employer] Alinity Immunoassay. Blood BLOOD SPECIMEN / Unknown Lab Venipuncture / Unknown 06/17/2024 1:54 PM CDT 06/17/2024 2:51 PM CDT Rigoberto Mcclain MD LAB - CHEMISTRY JOHN PAUL RIVAS Performing Organization Address City/[facility]/ZIP Co de Phone Number [address] [address], [facility] [phone] * (ABNORMAL) HTSBL-2-PSXMUPRPTYB BLOOD (06/17/2024 1:54 PM CDT) [facility] Uoajp-7-Hyowkc ypsin 247(H) 90 - 200 mg/dL 06/17/2024 3:15 PM CDT [facility] Blood BLOOD SPECIMEN / Unknown Lab Venipuncture / Unknown 06/17/2024 1:54 PM CDT 06/17/2024 2:56 PM CDT Rigoberto Mcclain MD LAB - CHEMISTRY JOHN PAUL RIVAS Performing Organization Address City/[facility]/ZIP Co de Phone Number [facility] [address] [place] [address], [facility] [phone] * HEPATITIS B SURFACE ANTIBODY (06/17/2024 1:54 PM CDT) Hepatitis B Virus Surface Antibody Non-react pepe Non-react pepe 06/17/2024 3:28 PM CDT [facility] Comment: < 8 mIU/mL Hepatitis B surface Antibody (HBsAb). Nonreactive for HBsAb - individual is considered not immune to Hepatitis B Virus infection. Hepatitis B Surface Antibody Quantitative 0.5 <8.0 mIU/mL 06/17/2024 3:28 PM CDT [facility] Comment: Hepatitis B Surface Antibody Numeric Result Interpretation: Nonreactive: <8.0 mIU/mL Indeterminate: 8.0 - 12.0 mIU/mL Reactive: >12.0 mIU/mL Blood BLOOD SPECIMEN / Unknown Lab Venipuncture / Unknown 06/17/2024 1:54 PM CDT 06/17/2024 2:56 PM CDT Rigoberto Mcclain MD LAB - CHEMISTRY JOHN PAUL RIVAS Performing Organization Address City/[facility]/ZIP Co de Phone Number [facility] [address] [place] [address], [facility] [phone] * HEPATITIS B CORE ANTIBODY TOTAL (06/17/2024 1:54 PM CDT) HBc Antibody Total Non-reacti ve Non-reacti ve 06/17/2024 3:28 PM CDT [facility] Blood BLOOD SPECIMEN / Unknown Lab Venipuncture / Unknown 06/17/2024 1:54 PM CDT 06/17/2024 2:56 PM CDT Rigoberto Mcclain MD LAB - CHEMISTRY [facility] Performing Organization Address [facility]/ZIP Co de Phone Number [address] [phone], [facility] [phone] * HEPATITIS B SURFACE ANTIGEN W RFLX CONFIRMATION (06/17/2024 1:54 PM CDT) [facility] Hepatitis B Virus Surface Antigen Non-reacti ve Non-reacti ve 06/17/2024 3:28 PM CDT [facility] Blood BLOOD SPECIMEN / Unknown Lab Venipuncture / Unknown 06/17/2024 1:54 PM CDT 06/17/2024 2:56 PM CDT Rigoberto Mcclain MD LAB - CHEMISTRY [facility] Performing Organization Address [facility] Co de Phone Number [address] [phone], [facility] [phone] * BILIRUBIN DIRECT (06/17/2024 1:54 PM CDT) [facility] Bilirubin Conjugated 0.3 0.1 - 0.5 mg/dL 06/17/2024 3:23 PM CDT [facility] Blood BLOOD SPECIMEN / Unknown Lab Venipuncture / Unknown 06/17/2024 1:54 PM CDT 06/17/2024 2:51 PM CDT Rigoberto Mcclain MD LAB - CHEMISTRY [facility] PA[facility]IVAS Performing Organization Address [facility] Co de Phone Number [address] [address], [facility] [phone] * (ABNORMAL) HEPATITIS A ANTIBODY (06/17/2024 1:54 PM CDT) [facility] Hepatitis A Virus Antibody Total Positive( A) Negative 06/18/2024 9:49 PM CDT [facility] ([facility]) Comment: The positive anti-HAV is consistent with recent or remote Hepatitis A infection or antibody response to HAV vaccination. False positive anti-HAV can occur. Performed By: [employer] [address] [place] [id number] Director Writing: Armando Lowe MD, PhD CLIA Number: [id number] Blood BLOOD SPECIMEN / Unknown Lab Venipuncture / Unknown 06/17/2024 1:54 PM CDT 06/17/2024 2:56 PM CDT Rigoberto Mcclain MD LAB - CHEMISTRY [facility] PAUL RIVAS [facility]) [address] [place] [id number] * FLOW CYTOMETRY BONE MARROW (02/01/2024 9:30 AM CDT) Case Report Flow Cytometry Case: [id number] Authorizing Provider: Kadeem Mcclelland Collected: 02/01/2024 09:30 AM MD Bola Ordering Location: [facility] - Received: 02/01/2024 12:23 PM Pathology Lab Pathologist: Rosa Maria Murry MD Specimen: Bone Marrow 4 12:02 PM CDT [facility] Final Diagnosis Bone marrow, flow cytometric immunophenotyping: -Mild T-cell aberrancy identified (see comment) - No evidence of a monoclonal B-cell population, plasma cell neoplasm, or increased blasts (0.7% of total) Comment: T-cells show mildly increased CD2 and CD7 expression compared to CD3 and CD5. This is a common feature of activated T-cells in reactive processes. The mild nature of the aberrancy favors a reactive process, but if clinically suspicious for a T-cell lymphoproliferative disorder consider T-cell receptor gene rearrangement analysis. Correlation with histologic review of the bone marrow is needed. There is no flow cytometric evidence of involvement of the bone marrow by the patient's reported B-cell lymphoma. 4 12:02 PM CDT [facility] Flow Cytometry Interpretation Viability: 85% B-cells: polytypic, kappa:lambda ratio 1.9:1. There is no significant CD10 positive B-cell population identified. T-cells: immunophenotypic aberrancy detected. CD2 and CD7 expression is increased compared to CD3 and CD5 (61% and 70% versus 30% and 32%, respectively). The CD4:CD8 ratio 0.6:1. An expanded T-cell panel reveals all T-cells express TCR alpha-beta. Up to 25% of events within the lymphocyte gate represent natural killer cells. Blasts: present, 0.7% of total cells Plasma cells: not detected MRD sent: No A bone marrow aspirate smear prepared from the flow cytometry specimen has been reviewed for senior software quality engineer purposes. Please correlate with histologic review of the bone marrow ([id number]). 4 12:02 PM [facility] Flow Cytometry Results Differential Result Comment Flow Cell Count /uL 10,200 Total Viability % 85.0 Lymphocytes % 19 Dim CD45 Region % 5 Monocytes % 20 Granulocytes % 56 4 12:02 PM [facility] Reason for test Follicular lymphoma, unspecified, unspecified site (HCC) Non-Hodgkin lymphoma, unspecified, unspecified site (HCC) 4 12:02 PM [facility] Client Specimen ID # [id number] 12:02 PM [facility] Number of markers 22 were performed. A-1 Flow CD10 A-3 Flow CD20 A-4 Flow CD23 A-9 Flow CD2 A-10 Flow CD3 A-11 Flow CD4 A-15 Flow CD1a A-17 FLow CD16 A-2 Flow CD19 A-5 Flow CD34 A-6 Flow CD45 A-12 Flow CD5 A-13 Flow CD7 A-14 Flow CD8 A-16 Flow CD30 A-18 Flow CD26 A-19 Flow CD56 A-20 Flow CD57 A-21 TCR-AB A-22 TCR-GD A-7 Homeland+CD19+ A-8 Lambda+CD19+ 4 12:02 PM [facility] Pathologist Location at [facility] 4 12:02 PM [facility] Disclaimer Test performed at [facility], [address] [place] [address], [id number]. *The established laboratory minimum viability is 70%. Values below the minimum may result in the failure to find an abnormal population of cells. This test was developed and its performance characteristics determined by the Flow Cytometry Laboratory. It has not been cleared by the [place] Food and Drug Administration (FDA). The FDA has determined that such clearance or approval is not necessary. This test is used for clinical purposes. It should not be regarded as investigational or for research. This laboratory is regulated under the Clinical Laboratory Improvement Amendments of 1998 (CLIA) as a qualified to perform high complexity clinical testing. 12:02 PM CDT [facility] Embedded Images 12:02 PM CDT [facility] Pathology/Cytolo gy BONE MARROW SPECIMEN / Unknown 02/01/2024 9:30 AM CDT 02/01/2024 12:23 PM CDT Kadeem Mcclelland MD LAB - PATHO LOGY/CYTOLOGY ORDERABLES Performing Organization Address City/State/[facility] Co de Phone Number [facility] [address] [phone] * BONE MARROW BIOPSY (STL) (02/01/2024 8:32 AM CDT) Case Report Bone Marrow Patholog y Report Case: [id number] Authorizing Provider: Kadeem Mcclelland Collected: 02/01/2024 08:32 AM MD Bola Ordering Location: [facility] - Received: 02/04/2024 03:11 PM Pathology Lab Pathologist: Rosa Maria Murry MD Specimens: A) - Bone Marrow Clot B) - Bone Marrow Core 02/06/2024 12:21 PM CDT [facility] Final Diagnosis Bone marrow, iliac crest, core biopsy, clot section, and aspirate: - Plasma cell neoplasm (up to 20% plasma cells with kappa light chain restriction) involving a markedly hypocellular marrow (5-10% cellular), see comment - No evidence of B-cell lymphoma - Adequate iron stores - No significant increase in reticulin fibrosis (MF-0) 02/06/2024 12:21 PM CDT [facility] Comment The patient 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 There is no morphologic or flow cytometric evidence of involvement of the bone marrow by B-cell lymphoma. However, up to 20% plasma cells are identified by morphology which show kappa light chain restriction by in situ hybridization consistent with a plasma cell neoplasm. Correlation with clinical history, laboratory data, and imaging studies are required definitive classification of the patient's plasma cell neoplasm. Clonal plasma cells are not identified by flow cytometry which may be explained due to the fragility of plasma cells and their propensity for degeneration in flow cytometry specimens. Correlation with relevant genetic and molecular data is needed. 02/06/2024 12:21 PM [facility] Peripheral Smear Description Manual Differential Count (100 cells): 79% neutrophils, 7% lymphocytes, 12% monocytes, 0% eosinophils, and 2% basophils. 0 nRBCs / 100 WBCs. Leukocyte number: decreased. Granulocyte morphology: prominent cytoplasmic vacuoles. Lymphocyte morphology: abnormal; rare mature forms with cleaved nuclear contours are identified. Erythrocyte number: decreased. Erythrocyte morphology: macrocytic. Anisopoikilocytosis: mild. Polychromasia: not significant. Platelet number: decreased. Platelet morphology: normal. 02/06/2024 12:21 PM [facility] Bone Marrow Aspirate Differential count not performed as the aspirate smears are markedly hemodilute. On scanning, the majority of nucleated cells represent peripheral blood elements with rare scattered hematopoietic cells identified. Very rare plasma cells are noted. A significant number of megakaryocytes are not seen. Storage iron (by special stain): not identified but evaluation is suboptimal given the lack of cellular spicules. Sideroblastic iron (by special stain): no ring sideroblasts. 02/06/2024 12:21 PM [facility] Bone Marrow Core Biopsy and Clot Section Description Specimen quality: adequate with 1.5 cm of evaluable marrow. Cellularity: ~5 % Trilineage Hematopoiesis: markedly reduced. Myeloid to Erythroid ratio: decreased. Myeloid maturation and localization: very rare myeloid cells are identified. Erythroid maturation and localization: hypoplastic, right-shift in maturation noted. Megakaryocyte number: decreased. Megakaryocyte distribution: normal. Lymphoid aggregates: absent. Bone trabeculae: normal. Blood vessels: normal. Plasma cells: increased with focal clustering noted. Plasma cells are scattered throughout the interstitium. Clot section marrow particles: present. Clot section morphology: similar to core biopsy. 02/06/2024 12:21 PM [facility] Flow Cytometry Summary Bone marrow, flow cytometric immunophenotyping ([id number]): - Mild T-cell aberrancy identified (see comment) - No evidence of a monoclonal B-cell population, plasma cell neoplasm, or increased blasts (0.7% of total) Comment: T-cells show mildly increased CD2 and CD7 expression compared to CD3 and CD5. This is a common feature of activated T-cells in reactive processes. The mild nature of the aberrancy favors a reactive process, but if clinically suspicious for a T-cell lymphoproliferative disorder consider T-cell receptor gene rearrangement analysis. Correlation with histologic review of the bone marrow is needed. There is no flow cytometric evidence of involvement of the bone marrow by the patient's reported B-cell lymphoma. 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 He presented for evaluation of pancytopenia. 02/06/2024 12:21 PM [facility] Materials Received Received are 21 slide(s) and 3 blocks labeled [id number] along with a copy of the outside pathology report. [place] [address] . All original materials are returned to the referring institution, along with a copy of our final report. 02/06/2024 12:21 PM [facility] Microscopic Description Immunohistochemistry and special stains are performed on the core biopsy and clot section to further characterize the marrow. Immunohistochemistry stains are performed in addition to flow cytometry given the cellular heterogeneity marrow. All stains reacted with appropriate controls. An iron stain of the clot section shows adequate iron stores. An iron stain of the clot section highlight scant storage iron. A reticulin stain of the core biopsy shows no significant increase in reticulin fibrosis. CD138, a marker of plasma cells, highlights up to 20% of cells in the core biopsy and clot section. PAX5, a B-cell marker, highlights approximately 1% of all cells without abnormal clustering. Homeland and lambda in situ hybridization stains (core and clot) show the plasma cells to be kappa restricted, with a kappa to lambda ratio of approximately 10:1. Cyclin D1 is positive in the plasma cells in the core biopsy and clot section. CD3 and CD5 performed on the core biopsy and clot section highlights up to 5% of all cells. 02/06/2024 12:21 PM CDT [facility] Pathologist Location at [facility] 02/06/2024 12:21 PM CDT [facility] Disclaimer The performance characteristics of all immunohistochemical and indirect immunofluorescence stains (if any) cited in this report were determined by the [facility] of [facility]. Some of these tests were developed by our own laboratory and have not been cleared or approved by the US Food and Drug Administration. The FDA does not require this test to go through premarket FDA review. These tests are used for clinical purposes. They should not be regarded as investigational or for research. This laboratory is certified under the Clinical Laboratory Improvement Amendments (CLIA) as qualified to perform high complexity clinical laboratory testing. This case has been personally reviewed and interpreted by the attending (teaching) pathologist. 02/06/2024 12:21 PM CDT [facility] Embedded Images 02/06/2024 12:21 PM CDT [facility] Pathology/Cytology BONE MARROW SPECIMEN / Unknown 02/01/2024 8:32 AM CDT 02/04/2024 3:11 PM CDT Miscellaneous samples (specimen) BONE MARROW SPECIMEN / Unknown 02/01/2024 8:32 AM CDT 02/04/2024 3:11 PM CDT Kadeem Mcclelland MD LAB - PATHO LOGY/CYTOLOGY ORDERABLES Performing Organization Address City/State/[facility] Co de Phone Number [facility] [address] [phone] * PATHOLOGY TISSUE (12/14/2022 11:29 AM PROJECT ASSOCIATE) Case Report Surgical Pathology Report Case: [id number] Authorizing Provider: Indio Montoya MD Collected: 12/14/2022 11:29 AM Ordering Location: [facility] Received: 12/19/2022 08:29 AM Pathologist: Nataliya Pena MD Specimen: Lymph Node Biopsy 12/20/2022 11:59 AM PROJECT ASSOCIATE [facility] Final Diagnosis Abdominal lymph node, core biopsy: - B-cell lymphoma - See description. 12/20/2022 11:59 AM PROJECT ASSOCIATE [facility] Microscopic Description and Comment H&E stained sections of the lymph node biopsy needle cores show a predominantly diffuse pattern composed of lymphoid cells which are mostly small to intermediate in size, and have nuclear membrane indentations and angulation. Obvious sheets of large cells, necrosis, or apoptotic debris are not obvious. Immunohistochemical stains are performed on block A1 with appropriately reactive controls, and demonstrate the following: CD10, BCL-6, BCL-2 and CD23 diffusely highlight the neoplastic cells. Cyclin D1 highlights endothelial cells and is negative in neoplastic cells. CD21 is negative for a nodular dendritic cell meshwork. 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 Overall, the biopsy is too small for definitive subclassification. The angulated appearance in many lymphoma cells is reminiscent of follicular lymphoma, but no associated nodularity, typical of this entity is appreciated. Clear sheets of large cells are not evident either, that could support the diagnosis of diffuse large B-cell lymphoma. Therefore, an excisional biopsy of an enlarged lymph node is recommended to better appreciate the lymphoma growth pattern, and for final subclassification. 12/20/2022 11:59 AM [facility] Clinical History The patient is a 77 year-old man with abdominal lymphadenopathy. 12/20/2022 11:59 AM [facility] Materials Received Received are three slides and one block (A1) labeled [id number] along with a copy of the outside pathology report. [place] [address]. All original materials are returned to the referring institution, along with a copy of our final report. 12/20/2022 11:59 AM [facility] Disclaimer The performance characteristics of all immunohistochemical and indirect immunofluorescence stains (if any) cited in this report were determined by the [facility]. Some of these tests were developed by our own laboratory and have not been cleared or approved by the US Food and Drug Administration. The FDA does not require this test to go through premarket FDA review. These tests are used for clinical purposes. They should not be regarded as investigational or for research. This laboratory is certified under the Clinical Laboratory Improvement Amendments (CLIA) as qualified to perform high complexity clinical laboratory testing. This case has been personally reviewed and interpreted by the attending (teaching) pathologist. 12/20/2022 11:59 AM PROJECT ASSOCIATE [facility] Embedded Images 12/20/2022 11:59 AM [facility] Pathology/Cytolo gy BIOPSY OF LYMPH NODE / Unknown 12/14/2022 11:29 AM PROJECT ASSOCIATE 12/19/2022 8:29 AM PROJECT ASSOCIATE Indio Montoya MD LAB - PATHOLOGY/CYTO LOGY ORDERABLES [facility] [address] [phone] * DERMATOPATHOLOGY (09/20/2020 12:00 AM PROJECT ASSOCIATE) Case Report Dermatopathology Report Case: [id number] Authorizing Provider: Armen Orozco MD Collected: 09/20/2020 12:00 AM Ordering Location: [facility] Received: 09/21/2020 06:45 AM Pathologist: Lola Reyes MD Specimen: Skin, right helix 0 3:50 PM PROJECT ASSOCIATE DERMATOPATHOLOGY LABORATORY Final Diagnosis Specimen A. 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 Path # [id number]. 0 3:50 PM PROJECT ASSOCIATE DERMATOPATHOLOGY LABORATORY Gross Description Specimen A: Received is one formalin filled container labeled with the patient's name and designated right helix. The specimen consists of a shave biopsy measuring [id number]. Jar 0. 0 3:50 PM PROJECT ASSOCIATE DERMATOPATHOLOGY LABORATORY Microscopic Description Specimen A. SKIN, right helix: The epidermis shows parakeratosis, full thickness disorderly maturation of keratinocytes, mitoses at different levels, and dyskeratotic cells. The lesion extends to the base of the biopsy. There are nests of melanocytes at the dermal-epidermal junction and within the dermis. MART-1/Melan-A immunohistochemical stain highlights the melanocytes as above. COMMENT: An invasive squamous cell carcinoma cannot be ruled out. 0 3:50 PM PROJECT ASSOCIATE DERMATOPATHOLOGY LABORATORY Disclaimer An external and internal positive and negative controls are appropriate for the histochemical, immunohistochemical and immunofluorescence stain(s) in this case (if any), except where stated explicitly. The performance characteristics of the stain(s) cited in this report were developed and its performance characteristic determined by the Dermatopathology Laboratory at [facility], directed by Dr. Quincy Perez. These tests need not be, and therefore are not, approved by the [place] Food and Drug Administration. The tests are used for clinical purposes. Billing Codes Specimen Charges Stain Charges 77658 1 77081 1 0 3:50 PM PROJECT ASSOCIATE DERMATOPATHOLOGY LABORATORY Embedded Images 0 3:50 PM PROJECT ASSOCIATE DERMATOPATHOLOGY LABORATORY Pathology/Cytolog y TISSUE SPECIMEN FROM SKIN / Unknown 09/20/2020 09/21/2020 6:45 AM PROJECT ASSOCIATE Armen Orozco MD LAB - PATHOLOGY/CYTO LOGY ORDERABLES DERMATOPATHOLOGY LABORATORY [facility] - Department of Dermatology [facility] [address] [place] [address], [address] [phone] Care Teams Cone Sewer Relationship Specialty Start Date End Date Moses Conn MD [address] [place] [id number] PCP - General 01/04/23
--- OUTSIDE RECORDS SUMMARY | 2024-12-22 14:37 | XMS_ITS | Encounter Summary ---
Author Organization [facility] Health Address [address] [place] [place] [address] Care Team Providers Care Advanced Manufacturing Consultant Name Role Phone Moses Conn MD Primary Care Provider [phone] Encounter Details Date Type Department Care Team (Late Contact Info) Description 09/21/2020 Lab Requisition [facility] [address] [place] [phone] Armen Orozco MD [address] [place] [address] Social History Tobacco Use Types Packs/Day Years Used Date Smoking Tobacco: Never Assessed Sex and Gender Information Value Date Recorded Sex Assigned at Not on file Gender Identity Not on file Sexual Orientation Not on file documented as of this encounter Plan of Treatment Upcoming Encounters Date Type Department Care Team (Late Contact Info) Description 01/27/2025 2:00 PM CDT Office Visit [facility] - [address] [place] [phone] Rigoberto Mcclain MD [address] [place] [phone] documented as of this encounter Procedures Procedure Name Priority Date/Time Associated Diagnosis Comments DERMATOPATHOLOGY Routine 09/20/2020 12:0 0 AM GROUP MANAGING DIRECTOR documented in this encounter Results * DERMATOPATHOLOGY (09/20/2020 12:00 AM GROUP MANAGING DIRECTOR) Case Report Dermatopathology Report Case: [id number] Authorizing Provider: Armen Orozco MD Collected: 09/20/2020 12:00 AM Ordering Location: [facility] Lab Received: 09/21/2020 06:45 AM Pathologist: Lola Reyes MD Specimen: Skin, right helix 0 3:50 PM [facility] DERMATOPATHOLOGY LABORATORY Final Diagnosis Specimen A. 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 Path # [id number]. 0 3:50 PM [facility] DERMATOPATHOLOGY LABORATORY Gross Description Specimen A: Received is one formalin filled container labeled with the patient's name and designated right helix. The specimen consists of a shave biopsy measuring [id number]. Jar 0. 0 3:50 PM [facility] DERMATOPATHOLOGY LABORATORY Microscopic Description Specimen A. SKIN, [...] cannot be ruled out. 0 3:50 PM [facility]ERMATOPATHOLOGY [facility]OR[facility]ORY Disclaimer An external and internal positive and negative controls are appropriate for the histochemical, immunohistochemical and immunofluorescence stain(s) in this case (if any), except where stated explicitly. The performance characteristics of the stain(s) cited in this report were developed and its performance characteristic determined by the Dermatopathology Laboratory at [facility], directed by Dr. Quincy Perez. These tests need not be, and therefore are not, approved by the [place] Food and Drug Administration. The tests are used for clinical purposes. Billing Codes Specimen Charges Stain Charges 12806 1 80455 1 0 3:50 PM [facility] DERMATOPATHOLOGY LABORATORY Embedded Images 0 3:50 PM GROUP MANAGING DIRECTOR DERMATOPATHOLOGY LABORATORY Pathology/Cytolog y TISSUE SPECIMEN FROM SKIN / Unknown 09/20/2020 09/21/2020 6:45 AM GROUP MANAGING DIRECTOR Armen Orozco MD LAB - PATHOLOGY/CYTO LOGY ORDERABLES DERMATOPATHOLOGY LABORATORY [facility] Department of Dermatology [address], [address] [phone] documented in this encounter Visit Diagnoses Not on filedocumented in this encounter Additional Health Concerns Infection Onset Date Last Indicated Resolved Time COVID-19 Under Investigation 11/06/2024 11/06/2024 11/06/2024 5:10 PM GROUP MANAGING DIRECTOR MDRO 11/06/2024 11/06/2024 COVID-19 Under Investigation 12/03/2024 12/03/2024 12/03/2024 1:56 PM GROUP MANAGING DIRECTOR documented as of this encounter Care Teams Advanced Manufacturing Consultant Relationship Specialty Start Date End Date Moses Conn MD [address] [place] [id number] PCP - General 01/04/23 documented as of this encounter
--- OUTSIDE RECORDS SUMMARY | 2024-12-22 14:37 | XMS_ITS | Clinical Summary ---
Author Organization [facility] Marcell Smiley Address [address] [place] [address] Care Team Providers Care Foot Setter Name Role Phone Moses Conn MD Primary Care Provider [phone] Allergies Active Allergy Reactions Criticality Noted Date Comments Cefditoren Rash Medium 05/27/2012 Tetracycline Rash Medium 05/27/2012 Medications acetaminophen (TYLENOL) 500 mg tablet Take 500 mg by mouth. Active cholecalcifer ol, Vitamin D3, (VITAMIN D3) 25 mcg (1,000 unit) Capsule Take 1 Capsule by mouth daily. Active empagliflozin (JARDIANCE) 25 mg tablet 1 Tablet. 04/28/20 21 Active ferrous sulfate 325 mg (65 mg iron) Tablet, Delayed Release (E.C.) Take 325 mg by mouth 2 times daily. 01/10/20 22 Active fluticasone propionate (FLONASE) 50 mcg/spray [place], Suspension nasal inhaler Administer 1 [place] in each nostril daily. Active metoprolol succinate (TOPROL XL) 50 mg Extended Release 24 hour tablet Take 50 mg by mouth 2 times daily. 05/25/20 22 Active nystatin (MYCOSTATIN) 100,000 unit/gram Cream Apply to affected area. 02/23/20 21 Active omeprazole (PriLOSEC) 40 mg Capsule, Delayed Release(E.C.) Take 40 mg by mouth 2 times daily. 05/19/20 22 Active simvastatin (ZOCOR) 20 mg tablet Take 20 mg by mouth daily. 05/12/20 22 Active SITagliptin (JANUVIA) 50 mg Tablet as directed Active lidocaine-joseph locaine (EMLA) 2.5-2.5 % Cream APPLY TO AFFECTED AREA SEE ADMINISTRATION INSTRUCTIONS. 30 Gram 1 02/23/20 23 Active cyanocobalami n 1,000 mcg Tablet Take 1,000 mcg by mouth daily. Active spironolacton e (ALDACTONE) 50 mg tablet Take 50 mg by mouth daily. 01/20/20 24 2024 Active acyclovir (ZOVIRAX) 400 mg tablet TAKE 1 TABLET BY MOUTH TWICE A DAY 180 Tablet 1 12/18/19 25 Active rifAXIMin (XIFAXAN) 550 mg Tablet Take 550 mg by mouth 2 times daily. 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 Other dietary vitamin B12 deficiency anemia /11/2021 Mesenteric lymphadenopathy 05/03/2022 Pancytopenia 04/12/2022 Chronic anemia 04/12/2022 Encounters Date Type Department Care Team Description 12/22/2024 2:15 PM GEAR SHAPER Office Visit [facility] Oncology and Hematology [facility] [address] [place] [phone] Anish Perez MD Arrived 12/18/2024 Orders Only [facility] Oncology and Hematology [facility] [address] [place] [phone] Anish Perez MD Chronic anemia (Primary Dx); Pancytopenia (CMS/HCC); Other dietary vitamin B12 deficiency anemia 12/18/2024 Refill [facility] Oncology and Hematology [facility] [address] [place] [address] Anish Perez MD 12/16/2024 Telephone [facility] Oncology and Hematology [facility] [address] [place] [phone] Anish Perez MD Lab Results 12/10/2024 4:30 PM GEAR SHAPER Telephone Check Up [facility] Oncology and Hematology [facility] [address] [place] [address] Anish Perez MD Multiple myeloma, remission status unspecified (CMS/HCC) (Primary Dx) 12/08/2024 Abstract [facility] - [place] [address] [place] [address] Anish Perez MD 12/05/2024 Abstract [facility] Oncology and Hematology - [place] [address] [place] [phone] Anish Perez MD 12/05/2024 Orders Only [facility] Oncology and Hematology - [place] [address] [place] [address] Anish Perez MD 12/04/2024 Orders Only [facility] Oncology and Hematology - [place] [address] [place] [address] Anish Perez MD 12/02/2024 Orders Only [facility] Oncology and Hematology - [place] [address] [place] [address] Anish Perez MD 11/26/2024 External Device Data STL ABSTRACTION Provider, Abstract 11/25/2024 External Device Data STL ABSTRACTION Provider, Abstract 11/25/2024 Orders Only [facility] Oncology and Hematology - [place] [address] [place] [address] Anish Perez MD 11/20/2024 Abstract [facility] Oncology and Hematology - [place] [address] [place] [address] Anish Perez MD 11/18/2024 Orders Only [facility] Oncology and Hematology - [place] [address] [place] [address] Anish Perez MD 11/18/2024 Telephone [facility] Oncology and Hematology - [place] [address] [place] [phone] Anish ePrez MD Paracentesis 11/06/2024 Orders Only [facility] Oncology and Hematology - [place] [address] [place] [address] Anish Perez MD 10/22/2024 Orders Only [facility] Oncology and Hematology - [place] [address] [place] [address] Anish Perez MD 10/15/2024 Orders Only [facility] Oncology and Hematology - [place] [address] [place] [address] Anish Perez MD 10/08/2024 Orders Only [facility] Oncology and Hematology - [place] [address] [place] [address] Anish Perez MD 10/07/2024 Orders Only [facility] Oncology and Hematology - [place] [address] [place] [address] Anish Perez MD 09/24/2024 Orders Only [facility] Oncology and Hematology - [place] [address] [place] [phone] Anish Perez MD from Last 3 Months Family History Relation Name Status Comments Brother Daughter 1 Alive Daughter 2 Alive Father Mother Sister 1 Sister 2 Sister 3 Sister 4 Son Alive Social History Tobacco Use Types Packs/Day Years Used Date Smoking Tobacco: Former Cigars Smokeless Tobacco: Never Tobacco Cessation:Counseling Given: Not Answered Comments:quit over 25 years ago Alcohol Use Standard Drinks/Week Comments Yes 0 (1 standard drink = 0.6 oz pur e alcohol) occasional Sex and Gender Information Value Date Recorded Sex Assigned at Not on file Legal Sex Male 3:06 PM CDT Gender Identity Not on file Sexual Orientation Not on file Last Filed Vital Signs Vital Sign Reading Time Taken Comments Blood Pressure 128/65 12/22/2024 2:03 PM GEAR SHAPER Pulse 66 12/22/2024 2:03 PM GEAR SHAPER Temperature 37.1 C (98.7 F) 12/22/2024 2:03 PM GEAR SHAPER Respiratory Rate 14 12/22/2024 2:03 PM GEAR SHAPER Oxygen Saturation 96% 12/22/2024 2:0 3 PM GEAR SHAPER Inhaled Oxygen Concentration - - Weight 62.1 kg (137 lb) 12/22/2024 2:03 PM GEAR SHAPER Patient stated that this is the correct weight Height 162.6 cm (5' 4 ) 06/19/2023 9:19 AM CDT Body Mass Index 23.52 06/19/2023 9:19 AM CDT Plan of Treatment Upcoming Encounters Date Type Department Care Team (Late st Contact Info) Description 01/01/2025 11:30 AM GEAR SHAPER Office Visit [facility] Oncology and Hematology - [place] [address] [facility] [address] [place] [address] Anish Perez MD [address] [facility] [address] [place] [address] Health Maintenance Due Date Last Done Comments DIABETES ANNUAL FOOT EXAM 1963 DIABETES ANNUAL RETINAL EXAM 1963 DIABETES MICROALBUMIN ANNUAL SCREEN 1963 LDL CHOLESTEROL ANNUAL 1963 DTAP/TDAP/TD VACCINES (1 - Tdap) 1964 RSV VACCINE (60+ or ) (1 - 1-dose 75+ series) 2020 COVID-19 Vaccine ( - 2023-2 5 season) 2024 09/08/2021, 01/06/2021, 12/10/2020 [place] Preventative Visit/Annual Wellness Visit 11/05/2024 DIABETES HBA1C Q 6 MONTHS 04/24/20252023, 08/16/2024, 08/14/2024, Additional history exists ZOSTER VACCINE Completed 06/13/2018, 02/21/2018 PNEUMOCOCCAL VACCINE 65+ YEARS Completed 1 11/06/2018, 07/22/2018, 08/08/2016 COLORECTAL SCREENING Discontinued 01/03/2024, 02/18/20 22 Colorectal Cancer Screening Discontinued INFLUENZA VACCINE Completed 09/11/2024, , 08/17/2021, Additional history exists FIT-DNA Q 3 years Discontinued FIT/FOBT Q 1 year Discontinued Flex Sig/CT Colonography Q 5 years Discontinued Procedures Procedure Name Priority Date/Time Associated Diagnosis Comments CBC WITH AUTODIFFERENTIAL Routine 2024 1:01 PM GEAR SHAPER COMPREHENSIVE METABOLIC PANEL Routine 12/01/2024 12:55 PM GEAR SHAPER KAPPA/LAMBDA LIGHT CHAINS Routine 2024 11:50 AM GEAR SHAPER PROTEIN ELECTROPHORESIS, CSF Routine 12/01/2024 10:51 AM GEAR SHAPER PARACENTESIS REPORT Routine 11/25/2024 2 :07 PM GEAR SHAPER PROTIME-INR Routine 11/18/2024 3:17 PM GEAR SHAPER PARACENTESIS REPORT Routine 11/18/2024 3:10 PM GEAR SHAPER PARACENTESIS REPORT Routine 11/03/2024 1 0:54 AM GEAR SHAPER US ASPIRATION ABDOMEN Routine 10/21/2024 10:52 AM GEAR SHAPER PARACENTESIS REPORT Routine 10/14/2024 9 :01 AM GEAR SHAPER PROTIME-INR Routine 10/07/2024 3:44 PM GEAR SHAPER PARACENTESIS REPORT Routine 10/07/2024 2 :00 PM GEAR SHAPER PARACENTESIS REPORT Routine 09/23/2024 9 :56 AM GEAR SHAPER from Last 3 Months Results * CBC WITH AUTODIFFERENTIAL (12/01/2024 1:01 PM GEAR SHAPER) Blood us Anish Perez MD HEMATOLOGY ORDERABLES Final Res ult * COMPREHENSIVE METABOLIC PANEL (12/01/2024 12:55 PM GEAR SHAPER) Blood us Anish Perez MD CHEMISTRY ORDERABLES Final Resu lt * KAPPA/LAMBDA, FREE LIGHT CHAINS (12/01/2024 11:50 AM GEAR SHAPER) Blood us Anish Perez MD CHEMISTRY ORDERABLES Final Resu lt * PROTEIN ELECTROPHORESIS, CSF (12/01/2024 10:51 AM GEAR SHAPER) Cerebrospinal fluid CEREBROSPINAL FLUID / Unknown us Oconnell M Chris MD BODY FLUIDS AND STOOLS Final Re sult * PARACENTESIS REPORT (11/25/2024 2:07 PM GEAR SHAPER) Result Paula Perez MD GI PROCEDURE ORDERABLES Final R esult * PROTIME-INR (11/18/2024 3:17 PM GEAR SHAPER) Only the most recent of2 resultswithin the time period is included. Blood Result Paula Perez MD HEMATOLOGY ORDERABLES Final Res ult * PARACENTESIS REPORT (11/18/2024 3:10 PM GEAR SHAPER) Result Paula Perez MD GI PROCEDURE ORDERABLES Final R esult * PARACENTESIS REPORT (11/03/2024 10:54 AM GEAR SHAPER) Result Paula Perez MD GI PROCEDURE ORDERABLES Final R esult * US ASPIRATION ABDOMEN (10/21/2024 10:52 AM GEAR SHAPER) Anatomical Region Laterality Modality Abdomen Other Result Paula Perez MD US ORDERABLES Final Result * PARACENTESIS REPORT (10/14/2024 9:01 AM GEAR SHAPER) Result Paula Perez MD GI PROCEDURE ORDERABLES Final R esult * PARACENTESIS REPORT (10/07/2024 2:00 PM GEAR SHAPER) Result Paula Perez MD GI PROCEDURE ORDERABLES Final R esult * PARACENTESIS REPORT (09/23/2024 9:56 AM GEAR SHAPER) Result Paula Perez MD GI PROCEDURE ORDERABLES Final R esult from Last 3 Months Insurance [facility] Care Teams Foot Setter Relationship Specialty Start Date End Date Moses Conn MD [address] [place] [address] PCP - General Internal Medicine 04/12/22
--- OUTSIDE RECORDS SUMMARY | 2024-12-22 14:37 | XMS_ITS | Encounter Summary ---
Author Organization [facility] Address [address] [facility] [place] [address] Care Team Providers Care Senior Java Programmer Analyst Name Role Phone Moses Conn MD Primary Care Provider [phone] Encounter Details Date Type Department Care Team (Late Contact Info) Description 12/19/2022 Lab Requisition [facility] Care Pathology Lab [address] [place] [address] Indio Montoya MD [address] [place] [address] Illness, unspecified Social History Tobacco Use Types Packs/Day Years Used Date Smoking Tobacco: Never Assessed Sex and Gender Information Value Date Recorded Sex Assigned at Not on file Gender Identity Not on file Sexual Orientation Not on file documented as of this encounter Plan of Treatment Upcoming Encounters Date Type Department Care Team ([facility] Contact Info) Description 01/27/2025 2:00 PM CDT Office Visit [facility] - GI [address] [facility] [place] [address] Rigoberto Mcclain MD [address] [place] [address] documented as of this encounter Procedures Procedure Name Priority Date/Time Associated Diagnosis Comments PATHOLOGY TISSUE Routine 12/14/2022 11:2 9 AM FRAME REPAIRER Illness, unspecified documented in this encounter Results * PATHOLOGY TISSUE (12/14/2022 11:29 AM FRAME REPAIRER) Case Report Surgical Pathology Report Case: [id number] Authorizing Provider: Indio Montoya MD Collected: 12/14/2022 11:29 AM Ordering Location: [facility] Pathology Lab Received: 12/19/2022 08:29 AM Pathologist: Nataliya Pena MD Specimen: Lymph Node Biopsy 12/20/2022 11:59 AM [facility] Final Diagnosis Abdominal lymph node, core biopsy: - B-cell lymphoma - See description. 12/20/2022 11:59 AM [facility] Microscopic Description and Comment H&E [...] lymph node flow cytometry detects a monoclonal [id number] mature B-cell lymphoma. Overall, the biopsy is [...] and for final subclassification. 12/20/2022 11:59 AM [facility] Clinical History The patient is a 77 year-old man with abdominal lymphadenopathy. 12/20/2022 11:59 AM [facility] Materials Received Received are three slides and one block (A1) labeled [id number] along with a copy of the outside pathology report. [place] [id number]. All original materials are returned to the referring institution, along with a copy of our final report. 12/20/2022 11:59 AM [facility] Disclaimer The performance characteristics of all immunohistochemical and indirect immunofluorescence stains (if any) cited in this report were determined by the Histopathology Laboratory of [facility]. Some of these tests were developed [...] the attending (teaching) pathologist. 12/20/2022 11:59 AM [facility] Embedded Images 12/20/2022 11:59 AM [facility] Pathology/Cytolo gy BIOPSY OF LYMPH NODE / Unknown 12/14/2022 11:29 AM FRAME REPAIRER 12/19/2022 8:29 AM FRAME REPAIRER Indio Montoya MD LAB - PATHOLOGY/CYTO LOGY ORDERABLES Performing Organization Address City/State/[facility] Co de Phone Number [facility] PATHOLOGY LAB [address] [phone] documented in this encounter Visit Diagnoses Diagnosis Illness, unspecified documented in this encounter Additional Health Concerns Infection Onset Date Last Indicated Resolved Time COVID-19 Under Investigation 11/06/2024 11/06/2024 11/06/2024 5:10 PM FRAME REPAIRER MDRO 11/06/2024 11/06/2024 COVID-19 Under Investigation 12/03/2024 12/03/2024 12/03/2024 1:56 PM FRAME REPAIRER documented as of this encounter Care Teams Senior Java Programmer Analyst Relationship Specialty Start Date End Date Moses Conn MD [address] [place], [place] [id number] PCP - General 01/04/23 documented as of this encounter
--- OUTSIDE RECORDS SUMMARY | 2024-12-22 14:37 | XMS_ITS | Encounter Summary ---
Author Organization [facility] Address [address] [facility] [place] [address] Care Team Providers Care Camera Control Operator Name Role Phone Moses Conn MD Primary Care Provider [phone] Reason for Visit * Reason Comments Cirrhosis decompensated Encounter Details Date Type Department Care Team (Late st Contact Info) Description 12/02/2024 Telephone [facility] - [address] [address] Luana Alejo, OLAF Cirrhosis (decompensated) Social History Tobacco Use Types Packs/Day Years Used Date Smoking Tobacco: Former Cigarettes 2 10 Smokeless Tobacco: Never Alcohol Use Standard Drinks/Week Comments Not Currently [...] and heating? Not hard at all 11/08/2024 [facility] [place] of Occupat ional Health - Occupational Stress [...] any time in the past 12 m [facility], were you homeless or living in a [facility] (including now)? No 11/08/2024 Sex and Gender Information Value Date Recorded Sex Assigned at Not on file Gender Identity Not on file Sexual Orientation Not on file documented as of this encounter Functional Status Functional Status Response Date of Assess ment Is person deaf or have serious hearing difficult y? No 11/08/2024 Is person blind or have serious difficulty seein g? Yes 11/08/2024 Does person have serious dif ficulty walking/climbing stairs? Yes 11/08/2024 Does person have difficulty dressing/bathing? No 11/08/2024 Does person have difficulty doing errands alone? Yes 11/08/2024 Cognitive Status Response Date of Assessm ent Does person have difficulty concentrating/remembering/making decisions? Yes 11/08/2024 documented as of this encounter Miscellaneous Notes * Telephone Encounter - Luana Alejo RN - 12/02/2024 5:06 PM CST Call received from pt's to report worsening confusion and disorientation. RN inquires about doses of lactulose. Nicki reports to be giving 2 doses/day. RN reports need to have 4 BM daily, or pt will need to report to ER. RN instructs to give 30 ml every 2 hours for next 24 hours. Nicki reports need to report to [facility] for weekly paracentesis on Sun. Weekly tap generally 3 L. Re-evaluation at that time. [place] message sent to Dr. Mcclain. LWORKING INSTRUCTOR documented in this encounter Plan of Treatment Upcoming Encounters Date Type Department Care Team (Late st Contact Info) Description 01/27/2025 2:00 PM CDT Office Visit [facility] - [address] [facility] [place] [phone] Rigoberto Mcclain MD [address] [place] [address] documented as of this encounter Goals Goal Patient Goal Type Associated Problems Recent Progress Patient-Stated? Author Medication Management General On track( 025 10:45 AM METALWORKING INSTRUCTOR) Kandis Dejesus, RN Note: Expected end date: ongoing Interventions: Take all medications as prescribed Let your doctor know right away about any changes in your medications Make sure to request a refill of your medication at least one week prior to your last dose documented as of this encounter Visit Diagnoses Not on filedocumented in this encounter Additional Health Concerns Infection Onset Date Last Indicated Resolved Time MDRO 11/06/2024 11/06/2024 COVID-19 Under Investigation 12/03/2024 12/03/2024 12/03/2024 1:56 PM METALWORKING INSTRUCTOR documented as of this encounter Care Teams Camera Control Operator Relationship Specialty Start Date End Date Moses Conn MD [address] [place] [id number] PCP - General 01/04/23 documented as of this encounter
--- OUTSIDE RECORDS SUMMARY | 2024-12-22 14:37 | XMS_ITS | Encounter Summary ---
Author Organization [facility] Address [address] [facility] [place] [address] Care Team Providers Care Benefits Specialist Name Role Phone Moses Conn MD Primary Care Provider [phone] Reason for Visit * Reason Onset Date Comments Results 06/19/2024 Encounter Details Date Type Department Care Team (Late st Contact Info) Description 06/19/2024 Telephone [facility] - [address] [facility] [place] [address] Rigoberto Mcclain MD [address] [place] [address] Results Social History Tobacco Use Types Packs/Day Years Used Date Smoking Tobacco: Never Smokeless Tobacco: Never Alcohol Use Standard Drinks/Week Comments Not Currently 0 (1 standard drink = 0.6 oz pur e alcohol) Sex and Gender Information Value Date Recorded Sex Assigned at Not on file Gender Identity Not on file Sexual Orientation Not on file documented as of this encounter Miscellaneous Notes * Telephone Encounter - Kandis Ledesma RN - 06/19/2024 3:41 PM CDT ----- Message from Rigoberto Mcclain MD sent at 06/17/2024 4:35 PM CDT ----- Please let patient know that we will start spironolactone 50 mg and furosemide 20 mg. Im sending the Rx in right now. He needs to get a CMP in 1 week? Where would he like that. Have him call us when he obtains it. Thanks documented in this encounter Plan of Treatment Upcoming Encounters Date Type Department Care Team (Late st Contact Info) Description 01/27/2025 2:00 PM CDT Office Visit [facility] - [address] [facility] [place] [address] Rigoberto Mcclain MD [address] [place] [phone] documented as of this encounter Goals Goal Patient Goal Type Associated Problems Recent Progress Patient-Stated? Author Medication Management General On track( 025 10:45 AM PLATING STRIPPER) No Kandis Ledesma, RN Note: Expected end date: ongoing Interventions: [...] Under Investigation 11/06/2024 11/06/2024 11/06/2024 5:10 PM PLATING STRIPPER MDRO 11/06/2024 11/06/2024 COVID-19 Under Investigation 12/03/2024 12/03/2024 12/03/2024 1:56 PM PLATING STRIPPER documented as of this encounter Care Teams Benefits Specialist Relationship Specialty Start Date End Date Moses Conn MD [address] [place] [id number] PCP - General 01/04/23 documented as of this encounter
--- OUTSIDE RECORDS SUMMARY | 2024-12-22 14:37 | XMS_ITS | Encounter Summary ---
Author Organization [facility] Health Address [address] [facility] [place] [address] Care Team Providers Care Boom Worker Name Role Phone Moses Conn MD Primary Care Provider [phone] Encounter Details Date Type Department Care Team (Late st Contact Info) Description 02/04/2024 Lab Requisition [facility] - Pathology Lab [address] [place] [address] Kadeem Mcclelland MD [address] [address] Illness, unspecified Social History Tobacco Use Types [...] CDT Office Visit [facility] - GI [address] [facility], [place] [phone] Rigoberto Mcclain MD [address] [place] [phone] documented as of this encounter Procedures Procedure Name Priority Date/Time Associated Diagnosis Comments BONE MARROW BIOPSY (STL) Routine 02/01/2024 8:32 AM CDT Illness, unspecified documented in this encounter Results * BONE MARROW BIOPSY (STL) (02/01/2024 8:32 AM CDT) Case Report Bone Marrow Patholog y Report Case: [id number] Authorizing Provider: Kadeem Mcclelland Collected: 02/01/2024 08:32 AM MD Bola Ordering Location: [facility] - Received: 02/04/2024 03:11 PM Pathology Lab Pathologist: Rosa Maria Murry MD Specimens: A) - Bone Marrow Clot B) - Bone Marrow Core 02/06/2024 12:21 PM CDT [facility] Final Diagnosis Bone marrow, iliac crest, core biopsy, clot section, and aspirate: - Plasma cell neoplasm (up to 20% plasma cells with kappa light chain restriction) involving a markedly hypocellular marrow (5-10% cellular), see comment - No evidence of B-cell lymphoma - Adequate iron stores - No significant increase in reticulin fibrosis (MF-0) 02/06/2024 12:21 PM T [facility] Comment The patient has a [...] molecular data is needed. 02/06/2024 12:21 PM CDT [facility] Peripheral Smear Description Manual Differential [...] decreased. Platelet morphology: normal. 02/06/2024 12:21 PM [facility] Bone Marrow Aspirate Differential count [...] stain): no ring sideroblasts. 02/06/2024 12:21 PM [facility] Bone Marrow Core Biopsy and [...] similar to core biopsy. 02/06/2024 12:21 PM [facility] Flow Cytometry Summary Bone marrow, flow cytometric immunophenotyping ([id number]): - Mild T-cell aberrancy identified (see comment) [...] patient's reported B-cell lymphoma. 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 He presented for evaluation of pancytopenia. 02/06/2024 12:21 PM [facility] Materials Received Received are 21 slide(s) and 3 blocks labeled [id number] along with a copy of the outside pathology report. [place] [address] . All original materials are returned to the referring institution, along with a copy of our final report. 02/06/2024 12:21 PM [facility] Microscopic Description Immunohistochemistry and special [...] 1% of all cells without abnormal clustering. [place] and lambda in situ hybridization stains (core and clot) show the plasma cells to be kappa restricted, with a kappa to lambda ratio of approximately 10:1. Cyclin D1 is positive in the plasma cells in the core biopsy and clot section. CD3 and CD5 performed on the core biopsy and clot section highlights up to 5% of all cells. 02/06/2024 12:21 PM [facility] Pathologist Location at [facility] 02/06/2024 12:21 PM [facility] Disclaimer The performance characteristics of all immunohistochemical and indirect immunofluorescence stains (if any) cited in this report were determined by the Histopathology Laboratory of [facility]. Some of these tests were developed by [...] the attending (teaching) pathologist. 02/06/2024 12:21 PM [facility] Embedded Images 02/06/2024 12:21 PM [facility] Pathology/Cytology BONE MARROW SPECIMEN / Unknown 02/01/2024 8:32 AM CDT 02/04/2024 3:11 PM CDT Miscellaneous samples (specimen) BONE MARROW SPECIMEN / Unknown 02/01/2024 8:32 AM CDT 02/04/2024 3:11 PM CDT Kadeem Mcclelland MD LAB - PATHO LOGY/CYTOLOGY ORDERABLES Performing Organization Address City/State/[facility] Co de Phone Number [facility] [address] [phone] documented in this encounter Visit Diagnoses Diagnosis Illness, unspecified documented in this encounter Additional Health Concerns Infection Onset Date Last Indicated Resolved Time COVID-19 Under Investigation 11/06/2024 11/06/2024 11/06/2024 5:10 PM FINANCIAL PLANNER MDRO 11/06/2024 11/06/2024 COVID-19 Under Investigation 12/03/2024 12/03/2024 12/03/2024 1:56 PM FINANCIAL PLANNER documented as of this encounter Care Teams Boom Worker Relationship Specialty Start Date End Date Moses Conn MD [address] [place] [phone] PCP - General 01/04/23 documented as of this encounter
--- OUTSIDE RECORDS SUMMARY | 2024-12-22 14:37 | XMS_ITS | Encounter Summary ---
Author Organization [facility] Health Address [address] [place] [address] Care Team Providers Care Binder Folder Operator Name Role Phone Moses Conn MD Primary Care Provider [phone] Encounter Details Date Type Department Care Team (Late Contact Info) Description 02/01/2024 Lab Requisition [facility] - Pathology Lab [address] [place] [address] Kadeem Mcclelland MD [address] [address] Follicular lymphoma, unspecified, unspecified site (HCC); Non-Hodgkin lymphoma, unspecified, unspecified site (HCC) Social History Tobacco Use Types Packs/Day Years Used Date Smoking Tobacco: Never Assessed Sex and Gender Information Value Date Recorded Sex Assigned at Not on file Gender Identity Not on file Sexual Orientation Not on file documented as of this encounter Plan of Treatment Upcoming Encounters Date Type Department Care Team (Late Contact Info) Description 01/27/2025 2:00 PM CDT Office Visit [facility] - GI [address] [facility] [place] [address] Rigoberto Mcclain MD [address] [place] [phone] documented as of this encounter Procedures Procedure Name Priority Date/Time Associated Diagnosis Comments FLOW CYTOMETRY BONE MARROW Routine 02/01/2024 9:30 AM CDT Follicular lymphoma, unspecified, unspecified site (HCC) Non-Hodgkin lymphoma, unspecified, unspecified site (HCC) documented in this encounter Results * FLOW CYTOMETRY BONE MARROW (02/01/2024 9:30 AM CDT) Case Report Flow Cytometry Case: [id number] Authorizing Provider: Stas Kadeem Collected: 02/01/2024 09:30 AM MD Bola Ordering Location: [facility] - Received: 02/01/2024 12:23 PM Pathology Lab Pathologist: Rosa Maria Murry MD Specimen: Bone Marrow 4 12:02 PM CDT [facility] Final Diagnosis Bone marrow, flow [...] reported B-cell lymphoma. 4 12:02 PM CDT [facility] Flow Cytometry Interpretation Viability: 85% [...] flow cytometry specimen has been reviewed for research quality assurance analyst purposes. Please correlate with histologic review of the bone marrow ([id number]). 4 12:02 PM [facility] Flow Cytometry Results Differential Result Comment Flow Cell Count /uL 10,200 Total Viability % 85.0 Lymphocytes % 19 Dim CD45 Region % 5 Monocytes % 20 Granulocytes % 56 4 12:02 PM [facility] Reason for test Follicular lymphoma, unspecified, unspecified site (HCC) Non-Hodgkin lymphoma, unspecified, unspecified site (HCC) 4 12:02 PM [facility] Client Specimen ID # [id number] 4 12:02 PM [facility] Number of markers 22 were [...] Flow CD57 A-21 TCR-AB A-22 TCR-GD A-7 [place]+CD19+ A-8 Lambda+CD19+ 4 12:02 PM [facility] Pathologist Location at [facility] 4 12:02 PM [facility] Disclaimer Test performed at [facility], [address] [place] [address], [address]. *The established laboratory minimum viability is 70%. [...] qualified to perform high complexity clinical testing. 4 12:02 PM [facility] Embedded Images 12:02 PM [facility] Pathology/Cytolo gy BONE MARROW SPECIMEN / Unknown 02/01/2024 9:30 AM CDT 02/01/2024 12:23 PM CDT Kadeem Mcclelland MD LAB - PATHO LOGY/CYTOLOGY ORDERABLES Performing Organization Address City/State/[facility] Co de Phone Number [facility] [address] [phone] documented in this encounter Visit Diagnoses Diagnosis Follicular lymphoma, unspecified, unspecified site (HCC) Non-Hodgkin lymphoma, unspecified, unspecified site (HCC) documented in this encounter Additional Health Concerns Infection Onset Date Last Indicated Resolved Time COVID-19 Under Investigation 11/06/2024 11/06/2024 11/06/2024 5:10 PM CAMPAIGN DIRECTOR MDRO 11/06/2024 11/06/2024 COVID-19 Under Investigation 12/03/2024 12/03/2024 12/03/2024 1:56 PM CAMPAIGN DIRECTOR documented as of this encounter Care Teams Binder Folder Operator Relationship Specialty Start Date End Date Moses Conn MD [address] [place] [address] PCP - General 01/04/23 documented as of this encounter
[2024-12-22 16:01] LABS: Folic Acid 7.9 ng/mL (2.76->20); Vitamin B12 > 1000.0 pg/mL (239-931)
== END 2024-12-22 11:46 | disposition home or self-care (01) ==
LOC: ANHLAB 11:47
PROVIDERS: PCP Internal Medicine; Referring Provider Internal Medicine Cardiovascular Disease; Visit Provider Internal Medicine Hematology & Oncology
DX: D64.9 Anemia, unspecified (principal); D61.818 Other pancytopenia; D51.3 Other dietary vitamin B12 deficiency anemia; I10 Essential (primary) hypertension; I35.0 Nonrheumatic aortic (valve) stenosis; I49.5 Sick sinus syndrome; I48.0 Paroxysmal atrial fibrillation; E78.2 Mixed hyperlipidemia
CPT/HCPCS: 36415; 80053; 80061; 82607; 82728; 82746; 83540; 83550; 83735; 85025

== ENCOUNTER 2024-12-23 12:47 | Outpatient (CLI) | payer OTHER, SELFPAY ==
--- NOTE | ~2024-12-23 | US_ITS ---
EXAMINATION: US paracentesis abd w/image DATE: 12/23/2024 13:53 INDICATION: Ascites. TECHNIQUE: The procedure and its risks and benefits were discussed with the patient. Potential risks discussed included bleeding and infection. The skin was prepped and draped in sterile fashion. 1% lid ocaine was used for local anesthesia. Under ultrasound guidance, a 5 Fr catheter with trochar was adv anced into the ascites in the left lower quadrant. Fluid was aspirated into vacuum bottles. The laquita ter was removed, and a dressing was applied. There were no immediate complications. FINDINGS: Ultrasound images demonstrate ascites and the catheter within the fluid. IMPRESSION: 1. Successful ultrasound-guided paracentesis yielding 4700 mL of cloudy yellow fluid. Reviewed, dictated and finalized at location A. INTERN
--- OUTSIDE RECORDS SUMMARY | 2024-12-23 12:55 | XMS_ITS | Clinical Summary ---
Author Organization [facility] Address [address] [place] [address] Care Team Providers Care Wheel Assembler Name Role Phone Moses Conn MD Primary Care Provider [phone] Anjelica Fish MD Unavailable [phone] Allergies Active Allergy Reactions Criticality Noted Date [...] plan to continue same Paroxysmal atrial fibrillation ([facility]) 021 Overview (12/18/2024): Last Assessment [...] monitoring Diabetes mellitus type 2 in nonobese ([facility]) 0 05/15/2021 Essential hypertension 05/15/2021 [...] Department Care Team Description 12/19/2024 11:30 AM WASHTUB WORKER Office Visit [facility] Cardiology [address] [place] [phone] Fanny Lima MD Nonrheumatic aortic valve stenosis (Primary Dx); Tachy-fela syndrome (CMS/HCC) (HCC); Paroxysmal A-fib (CMS/HCC) (HCC); Benign essential hypertension; Mixed hyperlipidemia 12/16/2024 Telephone [facility] Cardiology [address] [place] [phone] Fanny Lima MD blood test results 12/15/2024 Orders Only [facility] Cardiology [address] [place] [phone] Fanny Lima MD 12/15/2024 Orders Only [facility] Cardiology [address] [place] [phone] Fanny Lima MD 12/03/2024 Telephone [facility] Cardiology [address] [place] [phone] Fanny Lima MD 11/26/2024 10:15 AM WASHTUB WORKER - 11/26/2024 11:59 PM WASHTUB WORKER Hospital Encounter [facility] OP Cardiac Testing [address] [place] [phone] Other form of dyspnea; LBBB (left bundle branch block); Nonrheumatic mitral valve regurgitation; Essential hypertension; Mixed hyperlipidemia; Abdominal aortic atherosclerosis (HCC); Aortic valve stenosis, moderate; Nonrheumatic aortic valve stenosis; Paroxysmal A-fib (CMS/HCC) (HCC); Pacemaker Discharge Disposition: Discharge to home or self care 10/03/2024 8:45 AM WASHTUB WORKER Ancillary Procedure [facility] Cardiology [address] [facility] [address] [place] [address] Tachy-fela syndrome (CMS/HCC) (HCC); Pacemaker [...] Non Hodgkin's lymphoma (HCC) Atrial fibrillation (CMS/HCC) ([facility]) Family History Medical History Relation Name Comments [...] = 0.6 oz pur e alcohol) occasionally [employer] Answer Date Recorded In the past 12 months has unrival, [employer], or water [employer] threatened to shut off services in your [...] week 09/25/2023 How often do you attend [facility] or buddhist services? Never 09/25/2023 Do you belong to any clubs o r organizations such as christian groups, unions, fraternal or athletic groups, or [...] place to sleep or slept in a longterm (including now)? No 09/25/2023 Personal Safety Answer Date Recorded Have you ever been in or are you currently in a harmful physical or emotional relationship or is someone making you feel afraid or unsafe? Denies 09/25/2023 Sex and Gender Information Value Date Recorded Sex Assigned at Not on file Legal Sex Male 7:49 PM WASHTUB WORKER Gender Identity Not on file Sexual Orientation Not on file Occupation Industry Job Start Date Job End Date Retired Not on file Not on file Not on file Obstetrics History Last Filed Vital Signs Vital Sign Reading Time Taken Comments Blood Pressure 134/60 12/19/2024 12:35 PM WASHTUB WORKER Pulse 63 12/19/2024 12:35 PM WASHTUB WORKER Temperature 36.6 C (97.9 F) 09/28/2023 1:07 PM WASHTUB WORKER Respiratory Rate 16 12/19/2024 12:35 PM WASHTUB WORKER Oxygen Saturation 99% 12/19/2024 12:35 PM WASHTUB WORKER Inhaled Oxygen Concentration - - Weight 57.7 kg (127 lb 1.6 oz) 12/19/2024 12:35 PM WASHTUB WORKER Height 162.6 cm (5' 4 ) 12/19/2024 12:35 PM WASHTUB WORKER Body Mass Index 21.82 12/19/2024 12:35 PM WASHTUB WORKER Plan of Treatment Health Maintenance Due Date [...] history exists Medical Devices Implanted Type Area Emergency Response Technician Device Identifier Shelf Expiration Date Model / Serial / Lot [employer] 2087tc/ Tendril Sts 6fr 46cm Is-1 Connector Bipolar Active Fixation - [id number] Implanted:Qty: 1 on 12/14/2021 by Daily, Harley Mg MD at [facility] Lead [employer] 2087TC/ / / [employer] [id number] Assurity Mri [id number] Chamber Is-1 Connector Thk6mm Pacemaker - [id number] - [id number] Implanted:Qty: 1 on 12/14/2021 by Daily, Harley Mg MD at [facility] Pacemaker [employer] [id number] 04/04/2023 [id number] / [id number] / [employer] [id number] Assurity Mri [id number] 2 Chamber Is-1 Connector Thk6mm Pacemaker - [id number] - [id number] Implanted:Qty: 1 on 12/14/2021 by Daily, Harley Mg MD at [facility] Pacemaker [employer] [id number] 04/04/2023 [id number] / [id number] / Procedures Procedure Name Priority Date/Time Associated Diagnosis Comments SPECIMEN STATUS REPORT Routine 12/15/2024 11:19 AM WASHTUB WORKER CBC/DIFF AMBIGUOUS DEFAULT Routine 12/15/2024 11:19 AM WASHTUB WORKER THYROID FUNCTION CASCADE Routine 12/15/2024 11:19 AM WASHTUB WORKER COMPREHENSIVE METABOLIC PANEL Routine 12/15/2024 11:19 AM WASHTUB WORKER CBC WITH AUTO DIFFERENTIAL Routine 12/15/2024 11:19 AM WASHTUB WORKER TRANSTHORACIC ECHO (TTE) COMPLETE W DOPPLER/CF WO CONTRAST Routine 11/26/2024 11:45 AM WASHTUB WORKER Other form of dyspnea LBBB (left bundle branch block) Nonrheumatic mitral valve regurgitation Essential hypertension Mixed hyperlipidemia Abdominal aortic atherosclerosis (HCC) Aortic valve stenosis, moderate Nonrheumatic aortic valve stenosis Paroxysmal A-fib (CMS/HCC) (HCC) Pacemaker DEVICE CHECK - REMOTE Routine 10/06/2024 9:56 AM WASHTUB WORKER Tachy-fela syndrome (CMS/HCC) (HCC) Pacemaker LIPID PANEL Routine 05/26/2024 Mixed hyperlipidemia HEMOGLOBIN A1C Routine 12/11/2021 12:52 AM WASHTUB WORKER from Last 3 Months or Most Recently Relevant to Health Maintenance Results * Specimen Status Report (12/15/2024 11:19 AM WASHTUB WORKER) Specimen Status Report Comment [facility] - 01 Comment: Jacinta Guzmán CMP14 Default Jacinta Guzmán CMP14 Default A hand-written panel/profile was received from your office. In accordance with the [facility] Ambiguous Test Code Policy dated May 2003, we have completed your order by using the closest currently or formerly recognized AMA panel. We have assigned Comprehensive Metabolic Panel (14), Test Code #057464 to this request. If this is not the testing you wished to receive on this specimen, please contact the [facility]Technical Services Department to clarify the test order. We appreciate your business. 12/15/2024 11:1 9 AM WASHTUB WORKER 12/15/2024 Narrative [facility] - 12/16/2024 7:35 AM WASHTUB WORKER Performed at: [address] [id number] Retirement Actuary: Preston Valdez PhD, Phone: [phone] us Fanny Lima MD LAB BLOOD ORDERABLES Final Result Performing Organization Address City/[facility]/ZIP Co de Phone Number [facility] - 01 * CBC/Diff Ambiguous Default (12/15/2024 11:19 AM WASHTUB WORKER) 12/15/2024 11:1 9 AM WASHTUB WORKER us Fanny Lima MD LAB BLOOD ORDERABLES Final Result [facility] * Thyroid Function [place] (12/15/2024 11:19 AM WASHTUB WORKER) Pathologist [facility] TSH 0.861 0.450 - 4.500 uIU/mL [facility] - 01 Comment: No apparent thyroid disorder. Additional testing not indicated. In rare instances, Secondary Hypothyroidism as well as Subclinical Hypothyroidism have been reported in some patients with normal TSH values. 12/15/2024 11:1 9 AM WASHTUB WORKER 12/15/2024 Narrative [facility] - 12/16/2024 4:09 PM WASHTUB WORKER Performed at: [address] [id number] Retirement Actuary: Preston Valdez PhD, Phone: [phone] us Fanny Lima MD LAB BLOOD ORDERABLES Final Result [facility] - 01 * (ABNORMAL) CBC with auto differential (12/15/2024 11:19 AM WASHTUB WORKER) Pathologist [facility] WBC 4.8 3.4 - 10.8 x10E3/uL [facility] [...] [facility] - 01 12/15/2024 11:1 9 AM WASHTUB WORKER 12/15/2024 Narrative [facility] - 12/16/2024 7:35 AM WASHTUB WORKER Performed at: [address] [place] [id number] Retirement Actuary: Preston Valdez PhD, Phone: [phone] Fanny Lima MD LAB BLOOD ORDERABLES Final Result [facility] 01 * (ABNORMAL) Comprehensive metabolic panel (12/15/2024 11:19 AM WASHTUB WORKER) Glucose 208(H) 70 - 99 mg/dL [facility] [...] [facility] - 01 12/15/2024 11:1 9 AM WASHTUB WORKER 12/15/2024 Narrative [facility] - 12/16/2024 9:36 AM WASHTUB WORKER Performed at: - [facility] [id number] Retirement Actuary: Preston Valdez PhD, Phone: [phone] us Fanny Lima MD LAB BLOOD ORDERABLES Final Result [facility] - * TRANSTHORACIC ECHO (TTE) COMPLETE W DOPPLER/CF WO CONTRAST (11/26/2024 11:45 AM WASHTUB WORKER) Anatomical Region Laterality Modality Ultrasound 11/26/2024 10:3 9 AM WASHTUB WORKER Narrative 11/28/2024 4:11 PM WASHTUB WORKER Adult Echocardiogram + ----- -------+ :Name: ESTUARDO RENAE Study Date: 11/26/2024 Status: MHB : : Patient [address]: [address]^BHeight: 64 in : : Weight: 149 [...] Date: 11/26/2024 Status: MHB: : Patient [address]: [address]^MHBHeight: 64in : : Weight: 149lbBP: 110/60 [...] DEVICE CHECK - REMOTE (10/06/2024 9:56 AM WASHTUB WORKER) Anatomical Region Laterality Modality Other Narrative 12/02/2024 10:18 AM WASHTUB WORKER Table formatting from the original result was [...] AT/AF episode(s), longest duration 1 hour AT/AF [place] <1% 18 high ventricular rate episode(s): mix [...] us Homer Bullock MD CV CARDIAC SERVICES [facility] Final Result * Lipid panel (05/26/2024) SCRIBED Cholesterol, Total 119 l - h [facility] SCRIBED HDL 49 l - h [facility] SCRIBED LDL 53 l - h [facility] SCRIBED Triglycerides 88 l - h [facility] Blood 05/26/2024 Claribel Lindsey BUILDING SUPERVISOR LAB BLOOD ORDERABLES Final Result [facility] * (ABNORMAL) Hemoglobin A1c (12/11/2021 12:52 AM WASHTUB WORKER) Hgb A1C 6.3(H) 4.0 - 5.6 % [facility]ONATH[facility] Estimated Average Glucose 134 mg/dL [facility] Comment: The ADA recommends reporting an estimated Average Glucose (eAG) with all Hemoglobin A1c results using the equation derived from a study of 507 normal and diabetic adults. Minority populations were underrepresented and children were not included. (Diabetes Care 31:8398-9025, 2008). The eAG is not equivalent to a fasting glucose. Blood 12/11/2021 12:5 2 AM WASHTUB WORKER 12/11/2021 12:53 AM WASHTUB WORKER Rosmery Nelson NP LAB BLOOD ORDERABLES Final Result [facility] [address] [facility] Department [place] [address] from Last 3 Months or Most Recently Relevant to Health Maintenance Insurance [facility] Member Subscriber Plan / Payer (Ef fective 2015-Present) Name:Estuardo Renae Relation to Subscriber:Self Name:Estuardo Renae Payer ID:[id number] (NAIC) Type:MEDICARE RISK OTHER Address: [place] [id number] [facility] Advance Directives For more information, please contact: [phone] * Full Code (Latest Code Status on File) Date Activated Date Inactivated Comments 09/25/2023 12:12 PM 09/28/2023 8:32 PM * Full Code Date Activated Date Inactivated Comments 12/14/2021 10:19 AM 12/15/2021 8:20 PM * Full Code Date Activated Date Inactivated Comments 12/10/2021 9:58 PM 12/14/2021 10:19 AM * Full Code Date Activated Date Inactivated Comments 05/15/2021 12:37 AM 05/16/2021 8:55 PM Care Teams Wheel Assembler Relationship Specialty Start Date End Date Moses Conn MD [address] [place] [address] PCP - General 10/08/20 Anjelica Fish MD [address] [place] [address] Laborer [facility] Cardiovascular Disease 05/16/21
--- OUTSIDE RECORDS SUMMARY | 2024-12-23 12:55 | XMS_ITS | Encounter Summary ---
Author Organization [facility] IDA Valdes [facility] Address [address] [place] [address] Care Team Providers Care News Videotape Editor Name Role Phone Moses Conn MD Primary Care Provider [phone] Reason for Visit * Reason Comments Cancer Follow Up Encounter Details Date Type Department Care Team ([facility] st Contact Info) Description 12/22/2024 2:15 PM DIGITAL MUSIC INSTRUCTOR Office Visit [facility] Oncology and Hematology - [place] [address] [facility] [address] [place] [address] Anish Perez MD [address] [facility] [address] [place] [address] Multiple myeloma, remission status unspecified (CMS/HCC) (Primary Dx) Social History Tobacco Use Types Packs/Day Years [...] on file documented as of this encounter Last Filed Vital Signs Vital Sign Reading Time Taken Comments Blood Pressure 128/65 12/22/2024 2:03 PM DIGITAL MUSIC INSTRUCTOR Pulse 66 12/22/2024 2:03 PM DIGITAL MUSIC INSTRUCTOR Temperature 37.1 C (98.7 F) 12/22/2024 2:03 PM DIGITAL MUSIC INSTRUCTOR Respiratory Rate 14 12/22/2024 2:03 PM DIGITAL MUSIC INSTRUCTOR Oxygen Saturation 96% 12/22/2024 2:0 3 PM DIGITAL MUSIC INSTRUCTOR Inhaled Oxygen Concentration - - Weight 62.1 kg (137 lb) 12/22/2024 2:03 PM DIGITAL MUSIC INSTRUCTOR Patient stated that this is the correct weight Height - - Body Mass Index 23.52 06/19/2023 9:19 AM CDT documented in this encounter Progress Notes * Anish Perez MD - 12/22/2024 3:05 PM CST HEMATOLOGY / ONCOLOGY PROGRESS NOTE Patient Identification: Name: Estuardo Renae Age: 79 y.o. 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 FISH study showed rearrangement of Bcl-2/18 q. 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 Multiple myeloma status post bone marrow aspiration and biopsy done on February 01, 2024 showed normalmale karyotype with plasma cell neoplasm up to 20% with kappa light chain restriction with no evidence of B-cell lymphoma. Anemia Pancytopenia Liver cirrhosis CURRENT TREATMENT Surveillance TREATMENT HISTORY Bendamustine Rituxan cycle 1/6 started on February 27, 2023. Cycle 6 completed on July 24, 2023. Patient completed involved site radiation therapy treatment for bulky disease on October 08, 2023. Patient received 2 units of packed red blood cells on December 25, 2023. Patient had colonoscopy and EGD done on January 03, 2024. Colonoscopy showed internal hemorrhoids with colon polyps. EGD showed nonbleeding esophageal varices with gastritis. SUBJECTIVE Patient came to the office for follow-up visit accompanied by his . He remains tired and fatigued. No bleeding and bruising. No bone pain and neuropathy. No other new complaints. Review of system HEENT: Patient did not mention sinus congestion, hearing or vision problems, complain of tiredness and fatigue respiratory: Patient did not mention cough, dyspnea, wheeze Cardiovascular: Patient did not mention chest pain, exertional chest pressure/discomfort, nausea, syncope, shortness of breath GI: Patient did not mention constipation, diarrhea, dsyphagia, reflux symptoms, vomiting, denies any melena hematochezia, complain of abdominal distention : Patient did not mention dysuria, frequency, incontinence, urgency Integumentary system: no lymphadenopathy, sweats, flushing Musculoskeletal: Patient not mention: myalgia, arthralgia, bilateral lower extremity edema Neurological: Patient did not mention blurry or disturbed vision, numbness/weakness, dizziness Skin: No lumps, bumps or rashes. 12 point review of system was reviewed Objective: Vital signs in last 24 hours: As per nursing note Exam: General appearance: alert, cooperative, no distress, appears stated age Head: normocephalic, without obvious abnormality, atraumatic Eyes: conjunctivae/corneas clear, EOM's intact Ears: normal external ear canals AU Nose: Nares normal. Septum midline. Mucosa normal. No drainage or sinus tenderness Throat: Lips, mucosa, and tongue normal. Teeth and gums normal Neck: supple, symmetrical, trachea midline. Lungs: clear to auscultation bilaterally Heart: regular rate and rhythm, S1, S2 normal, no murmur, click, rub or gallop Abdomen: soft, non-tender. Bowel sounds normal. No masses, No organomegaly, abdomen distended with ascites extremities: extremities normal, atraumatic, 2+ bilateral lower extremity edema Skin: Skin color, texture, turgor normal. No rashes or lesions Lymph nodes: No lymphadenopathy Neuro: No obvious focal deficit Exam as above LABS Labs from April 28, 2022 showed WC 3.7 hemoglobin 9.4 MCV 85 platelet 155,000 neutrophils 70% lymphocyte 17% iron 22 iron saturation 5% ferritin 16 Labs from May 17 showed WBC 3.9 hemoglobin 8.7 platelet 167,000 iron 86 iron saturation 19% ferritin 10.8 vitamin B12 less than 159 Labs July 03 showed iron 99 ferritin 198 WBC 3.6 hemoglobin 11 MCV 93.8 platelet 164,000 vitamin B12 300 iron saturation 29% Labs from October 09 showed iron saturation 13% ferritin 8.7 vitamin B12 444. Lab from November 20 showed WBC 3.0 hemoglobin 11.2 platelet 133,000 neutrophils 66% lymphocyte 19%. Labs from November 20 showed WBC 3.0 hemoglobin 11.2 platelet 133,000 iron 70 saturation 15% ferritin 8.89 vitamin B12 447. Labs from February 02 showed iron 91 iron saturation 27% vitamin B12 764 WBC 2.5 hemoglobin 12.8 platelet 115,000 Labs from March 27, 2023 showed WBC 2.3 hemoglobin 12.8 platelet 98,000 ANC 1600 Labs from April 24 showed WBC 1.8 ANC 1200 hemoglobin 12.1 platelet 86,000 creatinine 0.9 Labs from May 22 showed WBC 1.7 hemoglobin 11.8 platelet 91,000 ANC 1000 creatinine 1.0 Labs from June 19 showed sodium 137 WBC 1.4 ANC 600 hemoglobin 11.9 platelets 79,000 Labs from July 24 showed WBC 3.7 hemoglobin 10.7 platelet 111,000 ANC 2900 creatinine 1.0 Labs from August 27 showed WBC 1.4 hemoglobin 10.8 MCV 92.8 ANC 0.7 Labs from November 13 showed WBC 1.4 hemoglobin 8.9 platelet 77,000 neutrophils 66% lymphocyte 10% creatinine 0.9 Labs from December 24 showed WBC 2.7 hemoglobin 5.7 platelet 145,000 iron 30 saturation 7 ferritin 9.8 vitamin B12 more than 1000 creatinine 0.9 Labs from January 28 showed WBC 4.2 hemoglobin 7.1 platelet 162,000 MCV 102 creatinine 1.3 iron 76 saturation 23% ferritin 190 Labs from February 25 showed WBC 2.6 hemoglobin 9.6 platelet 1 67,000 ANC 1800 Labs from February 25 showed kappa light chain 36 lambda light chain 29 ratio 1.24 serum protein electrophoresis showed M spike of 1.0 g/dL iron 49 saturation 18 ferritin 101 WBC 2.6 hemoglobin 9.6 platelet count 167,000 Labs from May 15 showed WBC 3.2 hemoglobin 9.9 platelet 154,000 creatinine 0.6 calcium 9.6 IgG 1857 IgA 181 IgM 57 Labs from June 27 showed WBC 3.4 hemoglobin 10.4 platelet 1 67,000 creatinine 0.7 Labs from December 01 showed hemoglobin 11.2 platelet 1 35,000 creatinine 1.6 calcium 9.9 M spike of1.6 g Cavour light chain 122 lambda light chain 78 ratio 1.5 IgG 2304 Labs from December 22 showed hemoglobin 7.2 WBC 3.9 platelet 147,000 creatinine 1.3 GFR 53 iron 71 iron saturation 33% serum protein electrophoresis showed M spike of 1.6 g IgG level 2304 Cavour lightchain 122 lambda light chain 78 ratio 1.5 Assessment: Plan: Patient Active Problem List Diagnosis Date Noted Follicular lymphoma (CMS/HCC) 02/26/2023 Other dietary vitamin B12 deficiency anemia 05/25/2022 Mesenteric lymphadenopathy 05/03/2022 Pancytopenia (CMS/HCC) 04/12/2022 Chronic anemia 04/12/2022 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 FISH studies showed Bcl-2 rearrangement/18 q. 14:18 translocation found in 80 to 90% cases of follicular lymphoma. PET scan from May 09, 2022 showed 7.6 x 3.8 cm confluent mass of the lymph node in the small bowel mesentery. There is no other evidence of lymphoma. Patient is started chemotherapy with Bendamustine Rituxan cycle 1/6 on February 27, 2023. Completed cycle 6 on July 24, 2023. Patient completed radiation therapy to the involved site for bulky disease on October 08, 2023. Maintenance Rituxan was not approved by the insurance. Lymphoma is in remission. PET scan has been ordered. Multiple myeloma status post bone marrow aspiration and biopsy done on February 01, 2024 showed normalmale karyotype with plasma cell neoplasm up to 20% with kappa light chain restriction with no evidence of B-cell lymphoma. Serum protein electrophoresis showed M spike of 1 g. PET scan showed no evidence of lytic lesion or any other myeloma deposits. Patient was seen by Dr. James and case was discussed with her. 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 Patient had bone marrow biopsy done on January 31 showed no evidence of lymphoma. Patient is clinically asymptomatic with no evidence of neuropathy and bone pain. Serum protein electrophoresis showed elevated M spike of 1.6 g. PET scan has been ordered and we will discuss that in 1 week to see if any treatment for myeloma is required. Anemia of chronic kidney disease. This is multifactorial with chronic kidney disease and liver disease. Will start Procrit 20,000 units on a biweekly basis. He will continue vitamin B12 and iron daily. Liver cirrhosis and ascites. He will follow-up with the flat locker at [facility]. Patient will be getting periodic paracentesis for ascites. Bilateral lower extremity edema. Stable on Lasix and Aldactone. Atrial fibrillation. Holding Eliquis due to iron deficiency anemia. Follow-up in 1 week. 12/22/2024 Anish Perez MD TAL MUSIC INSTRUCTOR documented in this encounter Plan of Treatment Upcoming Encounters Date Type Department Care Team (Late st Contact Info) Description 01/01/2025 4:30 PM DIGITAL MUSIC INSTRUCTOR Telephone Check Up [facility] - [place] [address] [facility] [address] [place] [address] Anish Perez MD [address] [facility] [address] [place] [address] documented as of this encounter Visit Diagnoses Diagnosis Multiple myeloma, remission status unspecified (CMS/HCC)- Primary documented in this encounter Care Teams News Videotape Editor Relationship Specialty Start Date End Date Moses Conn MD [address] [place] [address] PCP - General Internal Medicine 04/12/22 documented as of this encounter
--- OUTSIDE RECORDS SUMMARY | 2024-12-23 12:55 | XMS_ITS | Referral Summary ---
Author Organization [facility] Address [address] [place] [address] Care Team Providers Care Robotic Machine Operator Name Role Phone Moses Conn MD Primary Care Provider [phone] Anjelica Fish MD Unavailable [phone] Encounters Date Type Department Care Team Description 12/19/2024 11:30 AM MANAGER POKER Office Visit [facility] Cardiology [address] [place] [address] [address] Fanny Hunt MD Nonrheumatic aortic valve stenosis (Primary Dx); Tachy-fela syndrome (CMS/HCC) (HCC); Paroxysmal A-fib (CMS/HCC) (HCC); Benign essential hypertension; Mixed hyperlipidemia 12/16/2024 Telephone [facility] Cardiology [address] [place] [phone] Fanny Hunt MD blood test results 12/15/2024 Orders Only [facility] Cardiology [address] [place] [address] [address] Fanny Hunt MD 12/15/2024 Orders Only [facility] Cardiology [address] [place] [address] [address] Fanny Hunt MD 12/03/2024 Telephone [facility] Cardiology [address] [place] [phone] Fanny Hunt MD 11/26/2024 10:15 AM MANAGER POKER - 11/26/2024 11:59 PM MANAGER POKER Hospital Encounter [facility] Cardiac Testing [address] [place] [address] Other form of dyspnea; LBBB (left bundle branch block); Nonrheumatic mitral valve regurgitation; Essential hypertension; Mixed hyperlipidemia; Abdominal aortic atherosclerosis (HCC); Aortic valve stenosis, moderate; Nonrheumatic aortic valve stenosis; Paroxysmal A-fib (CMS/HCC) ([facility]); Pacemaker Discharge Disposition: Discharge to home or self care 10/03/2024 8:45 AM MANAGER POKER Ancillary Procedure [facility] Cardiology [address] [facility] [address] [address] Tachy-fela syndrome (CMS/HCC) ([facility]); Pacemaker from Last 3 Months Allergies Active [...] plan to continue same Paroxysmal atrial fibrillation ([facility]) 021 Overview (12/18/2024): Last Assessment & Plan: [...] monitoring Diabetes mellitus type 2 in nonobese ([facility]) 0 05/15/2021 Essential hypertension 05/15/2021 Bradycardia 05/15/2021 [...] = 0.6 oz pur e alcohol) occasionally [employer] Answer Date Recorded In the past 12 months has [employer], gas, oil, or water [employer] threatened to shut off services in your [...] often do you attend chur ch or church services? Never 09/25/2023 Do you belong to any clubs o r organizations such as pentecostal groups, unions, fraternal or athletic groups, or [...] place to sleep or slept in a fdc (including now)? No 09/25/2023 Personal Safety Answer Date Recorded Have you ever been in or are you currently in a harmful physical or emotional relationship or is someone making you feel afraid or unsafe? Denies 09/25/2023 Sex and Gender Information Value Date Recorded Sex Assigned at Not on file Legal Sex Male 7:49 PM MANAGER POKER Gender Identity Not on file Sexual Orientation Not on file Occupation Industry Job Start Date Job End Date Retired Not on file Not on file Not on file Last Filed Vital Signs Vital Sign Reading Time Taken Comments Blood Pressure 134/60 12/19/2024 12:35 PM MANAGER POKER Pulse 63 12/19/2024 12:35 PM MANAGER POKER Temperature 36.6 C (97.9 F) 09/28/2023 1:07 PM MANAGER POKER Respiratory Rate 16 12/19/2024 12:35 PM MANAGER POKER Oxygen Saturation 99% 12/19/2024 12:35 PM MANAGER POKER Inhaled Oxygen Concentration - - Weight 57.7 kg (127 lb 1.6 oz) 12/19/2024 12:35 PM MANAGER POKER Height 162.6 cm (5' 4 ) 12/19/2024 12:35 PM MANAGER POKER Body Mass Index 21.82 12/19/2024 12:35 PM MANAGER POKER Plan of Treatment Not on file Medical Devices Implanted Type Area Penal Officer Device Identifier Shelf Expiration Date Model / Serial / Lot [employer] [id number]/46 Tendril Sts 6fr 46cm Is-1 Connector Bipolar Active Fixation - [id number] Implanted:Qty: 1 on 12/14/2021 by Daily, Harley Mg MD at [facility] Lead [employer] [id number] / / [employer] [id number] Assurity Mri [id number] Chamber Is-1 Connector Thk6mm Pacemaker - [id number] - [id number] Implanted:Qty: 1 on 12/14/2021 by Daily, Harley Mg MD at [facility] Pacemaker [employer] [id number] 04/04/2023 [id number] / [id number] / [employer] [id number] Assurity Mri [id number] Chamber Is-1 Connector Thk6mm Pacemaker - [id number] - [id number] Implanted:Qty: 1 on 12/14/2021 by Daily, Harley Mg MD at [facility] Pacemaker [employer] [id number] 04/04/2023 [id number] / [id number] / Procedures Procedure Name Priority Date/Time Associated Diagnosis Comments SPECIMEN STATUS REPORT Routine 12/15/2024 11:19 AM MANAGER POKER CBC/DIFF AMBIGUOUS DEFAULT Routine 12/15/2024 11:19 AM MANAGER POKER THYROID FUNCTION CASCADE Routine 12/15/2024 11:19 AM MANAGER POKER COMPREHENSIVE METABOLIC PANEL Routine 12/15/2024 11:19 AM MANAGER POKER CBC WITH AUTO DIFFERENTIAL Routine 12/15/2024 11:19 AM MANAGER POKER TRANSTHORACIC ECHO (TTE) COMPLETE W DOPPLER/CF WO CONTRAST Routine 11/26/2024 11:45 AM MANAGER POKER Other form of dyspnea LBBB (left bundle branch block) Nonrheumatic mitral valve regurgitation Essential hypertension Mixed hyperlipidemia Abdominal aortic atherosclerosis (HCC) Aortic valve stenosis, moderate Nonrheumatic aortic valve stenosis Paroxysmal A-fib (CMS/HCC) (HCC) Pacemaker DEVICE CHECK - REMOTE Routine 10/06/2024 9:56 AM MANAGER POKER Tachy-fela syndrome (CMS/HCC) (HCC) Pacemaker LIPID PANEL Routine 05/26/2024 Mixed hyperlipidemia HEMOGLOBIN A1C Routine 12/11/2021 12:52 AM MANAGER POKER from Last 3 Months or Most Recently Relevant to Health Maintenance Results * Specimen Status Report (12/15/2024 11:19 AM MANAGER POKER) Specimen Status Report Comment [facility] - 01 Comment: Jacinta Guzmán CMP14 Default Jacinta Guzmán CMP14 Default A hand-written panel/profile was received from your office. In accordance with the [facility] Ambiguous Test Code Policy dated May 2003, we have completed your order by using the closest currently or formerly recognized AMA panel. We have assigned Comprehensive Metabolic Panel (14), Test Code #550784 to this request. If this is not the testing you wished to receive on this specimen, please contact the [facility] Client Inquiry/Technical Services Department to clarify the test order. We appreciate your business. 12/15/2024 11:1 9 AM MANAGER POKER 12/15/2024 Narrative [facility] - 12/16/2024 7:35 AM MANAGER POKER Performed at: - [address] [id number] Asbestos Worker Helper: Preston Valdez PhD, Phone: [phone] Fanny Hunt MD LAB BLOOD ORDERABLES Final Result [facility] - 01 * CBC/Diff Ambiguous Default (12/15/2024 11:19 AM MANAGER POKER) 12/15/2024 11:1 9 AM MANAGER POKER us Fanny Hunt MD LAB BLOOD ORDERABLES Final Result [facility] * Thyroid Function [place] (12/15/2024 11:19 AM MANAGER POKER) Pathologist [facility] TSH 0.861 0.450 - 4.500 uIU/mL [facility] - 01 Comment: No apparent thyroid disorder. Additional testing not indicated. In rare instances, Secondary Hypothyroidism as well as Subclinical Hypothyroidism have been reported in some patients with normal TSH values. 12/15/2024 11:1 9 AM MANAGER POKER 12/15/2024 Narrative [facility] - 12/16/2024 4:09 PM MANAGER POKER Performed at: [address] [place] [id number] Asbestos Worker Helper: Preston Valdez PhD, Phone: [phone] Fanny Hunt MD LAB BLOOD ORDERABLES Final Result Performing Organization Address [facility] Co de Phone Number [facility] - 01 * (ABNORMAL) CBC with auto differential (12/15/2024 11:19 AM MANAGER POKER) Pathologist [facility] WBC 4.8 3.4 - 10.8 x10E3/uL [facility] [...] [facility] - 01 12/15/2024 11:1 9 AM MANAGER POKER 12/15/2024 Narrative [facility] - 12/16/2024 7:35 AM MANAGER POKER Performed at: [address] [id number] Asbestos Worker Helper: Preston Valdez PhD, Phone: [phone] us Fanny Hunt MD LAB BLOOD ORDERABLES Final Result [facility] 01 * (ABNORMAL) Comprehensive metabolic panel (12/15/2024 11:19 AM MANAGER POKER) Glucose 208(H) 70 - 99 mg/dL [facility] [...] [facility] - 01 12/15/2024 11:1 9 AM MANAGER POKER 12/15/2024 Narrative [facility] - 12/16/2024 9:36 AM MANAGER POKER Performed at: [address] [place] [id number] Asbestos Worker Helper: Preston Valdez PhD, Phone: [phone] us Fanny Hunt MD LAB BLOOD ORDERABLES Final [facility] - 01 * TRANSTHORACIC ECHO (TTE) COMPLETE W DOPPLER/CF WO CONTRAST (11/26/2024 11:45 AM MANAGER POKER) Anatomical Region Laterality Modality Ultrasound 11/26/2024 10:3 9 AM MANAGER POKER Narrative 11/28/2024 4:11 PM MANAGER POKER Adult Echocardiogram + ----- -------+ :Name: ESTUARDO RENO Study Date: 11/26/2024 Status: MHB : : Patient Location: [address]^MHBHeight: 64 in : : Weight: 149 [...] Date: 11/26/2024 Status: MHB: : Patient Location: [address]^MHBHeight: 64in : : Weight: 149lbBP: 110/60 mmHg: :: 1945 Gender: Male BSA: 1.7 m2: :Reason For Study: / MR / LBBB / HTN / cirrhosis: :Ordering Physician:: :FANNY HUNT: :Referring Physician:: :FANNY HUNT: :Performed By: Laure: :JENNIFER Meza: + ----- [...] DEVICE CHECK - REMOTE (10/06/2024 9:56 AM MANAGER POKER) Anatomical Region Laterality Modality Other Narrative 12/02/2024 10:18 AM MANAGER POKER Table formatting from the original result was [...] AT/AF episode(s), longest duration 1 hour AT/AF [place] <1% 18 high ventricular rate episode(s): mix [...] us Homer Bullock MD [facility] Final Result * Lipid panel (05/26/2024) SCRIBED Cholesterol, Total 119 l - h [facility] SCRIBED HDL 49 l - h [facility] SCRIBED LDL 53 l - h [facility] SCRIBED Triglycerides 88 l - h [facility] Blood 05/26/2024 Claribel Lindsey EMPLOYMENT AGENCY MANAGER LAB BLOOD ORDERABLES Final Result [facility] * (ABNORMAL) Hemoglobin A1c (12/11/2021 12:52 AM MANAGER POKER) Hgb A1C 6.3(H) 4.0 - 5.6 % [facility] Estimated Average Glucose 134 mg/dL [facility] Comment: The ADA recommends reporting an estimated Average Glucose (eAG) with all Hemoglobin A1c results using the equation derived from a study of 507 normal and diabetic adults. Minority populations were underrepresented and children were not included. (Diabetes Care 31:1328-4222, 2008). The eAG is not equivalent to a fasting glucose. Blood 12/11/2021 12:5 2 AM MANAGER POKER 12/11/2021 12:53 AM MANAGER POKER Rosmery Nelson EMPLOYMENT AGENCY MANAGER LAB BLOOD ORDERABLES Final Result Performing Organization Address [facility]/ZIP Co de Phone Number [facility] [address] [facility] Department [place] [address] from Last 3 Months or Most Recently Relevant to Health Maintenance Insurance [facility] Advance Directives For more information, please contact: [phone] * Full Code (Latest Code Status on File) Date Activated Date Inactivated Comments 09/25/2023 12:12 PM 09/28/2023 8:32 PM * Full Code Date Activated Date Inactivated Comments 12/14/2021 10:19 AM 12/15/2021 8:20 PM * Full Code Date Activated Date Inactivated Comments 12/10/2021 9:58 PM 12/14/2021 10:19 AM * Full Code Date Activated Date Inactivated Comments 05/15/2021 12:37 AM 05/16/2021 8:55 PM Care Teams Robotic Machine Operator Relationship Specialty Start Date End Date Moses Conn MD [address] [place] [address] PCP - General 10/08/20 Anjelica Fish MD [address] [facility] [address] [address] Marine Extension Agent Cardiovascular Disease 05/16/21
--- OUTSIDE RECORDS SUMMARY | 2024-12-23 12:55 | XMS_ITS | Encounter Summary ---
Author Organization [facility] / [facility] Address [facility] [place] [address] Care Team Providers Care Mushroom Grower Name Role Phone Moses Conn MD Primary Care Provider [phone] Cristy Brantley RN Unavailable [phone] Moses Conn MD Unavailable [phone] Reason for Visit * Auth/Cert (Routine) Specialty Diagnoses / Procedures Referred By Duy t Referred To Contact Home Health Services Referral ID Status Reason Start Date Expiration Date Visits Re quested Visits Authorized [id number] 11 30 Encounter Details Date Type Department Care Team (Late st Contact Info) Description 12/22/2024 10:15 AM DEHYDROGENATION SUPERVISOR Home Care Visit [facility] Care [address] [place] [address] Marshall Anguiano, JOURNEYMAN PIPE WELDER [address] [place], [place] [id number] PT HOME VISIT Social History Tobacco Use Types Packs/Day Years Used Date Smoking Tobacco: Former Cigarettes 2 10 0 11/05/1987 - 11/05/1997 Cigars Passive Smoke Exposure: Never Smokeless Tobacco: Never Alcohol Use Standard Drinks/Week Comments Not Currently 0 (1 standard drink = 0.6 oz pur e alcohol) OASIS D0700: Social Isolation Answer Da te Recorded Frequency of experiencing loneliness or isolatio n Never 12/10/2024 OASIS A1250: Transportation Answer Date Recorded Lack of Transportation (Medical) No 12/10/2024 Lack of Transportation (Non-Medical) No 12/10/2024 Patient Unable or Declines to Respond No 12/10/2024 OASIS B1300: Health Literacy Answer Jose e Recorded Frequency of needing help to read materials from doctor or pharmacy Never 12/10/2024 B1300 Health Literacy Answer Date Recor ded How often do you need to hav e someone help you when you read instructions, pamphlets, or other written material from your doctor or pharmacy? Often 08/14/2024 [facility] Utilities Answer Date Recorded In the past 12 months has e [employer], gas, oil, or water [employer] threatened to shut off services in your home? No 08/14/2024 Humiliation, Afraid, Rape, and Kick questionnair e Answer Date Recorded Within the last year, have y ou been afraid of your partner or ex-partner? No 08/14/2024 Within the last year, have y ou been humiliated or emotionally abused in other ways by your partner or ex-partner? No Within the last year, have y ou been kicked, hit, slapped, or otherwise physically hurt by your partner or ex-partner? No 08/14/2024 Within the last year, have y ou been raped or forced to have any kind of sexual activity by your partner or ex-partner? No 08/14/2024 AUDIT-C Answer Date Recorded Frequency of Alcohol Consumption Monthly or less 08/26/2019 Average Number of Drinks 1 or 2 019 Frequency of Binge Drinking Never 08/06 Overall Financial Resource Strain (CARDIA) Answe r Date Recorded How hard is it for you to pa y for the very basics like food, housing, medical care, and heating? Not hard at all 08/14/2024 PHQ-2 Answer Date Recorded Patient Health Questionnaire-2 Score 0 12/16/2024 [facility] Occupat ional Health - Occupational Stress Questionnaire Answer Date Recorded Do you feel stress - tense, restless, nervous, or anxious, or unable to sleep at night because your mind is troubled all the time - these days? Not at all 08/14/2024 Exercise Vital Sign Answer Date Recorde d On average, how many days pe r week do you engage in moderate to strenuous exercise (like a brisk walk)? 0 days 08/14/2024 On average, how many minutes do you engage in exercise at this level? 0 min 08/14/2024 Hunger Vital Sign Answer Date Recorded Within the past 12 months, y ou worried that your food would run out before you got the money to buy more. Never true 08/14/20 24 Within the past 12 months, t he food you bought just didn't last and you didn't have money to get more. Never true 08/14/2024 PRAPARE - Transportation Answer Date Re corded In the past 12 months, has l ack of transportation kept you from medical appointments or from getting medications? No 08/05 In the past 12 months, has l ack of transportation kept you from meetings, work, or from getting things needed for daily living? No 08/14/2024 Housing Stability Vital Sign Answer Jose e Recorded In the last 12 months, was t here a time when you were not able to pay the mortgage or rent on time? No 08/14/2024 In the past 12 months, how m any times have you moved where you were living? 0 08/14/2024 At any time in the past 12 m [facility], were you homeless or living in a correction (including now)? No 08/14/2024 Sex and Gender Information Value Date Recorded Sex Assigned at Male 02/25/2019 9:28 AM CDT Legal Sex Male 10:23 PM CDT Gender Identity Male 02/25/2019 9:28 AM CDT Sexual Orientation Straight 02/25/2019 9: 28 AM CDT documented as of this encounter Last Filed Vital Signs Vital Sign Reading Time Taken Comments Blood Pressure 110/64 12/22/2024 10:16 AM DEHYDROGENATION SUPERVISOR Pulse 66 12/22/2024 10:16 AM DEHYDROGENATION SUPERVISOR Temperature 36.9 C (98.5 F) 12/22/2024 10:16 AM DEHYDROGENATION SUPERVISOR Respiratory Rate 18 12/22/2024 10:16 AM DEHYDROGENATION SUPERVISOR Oxygen Saturation 99% 12/22/2024 10:16 AM DEHYDROGENATION SUPERVISOR Inhaled Oxygen Concentration - - Weight - - Height - - Body Mass Index - - documented in this encounter Functional Status * Are you deaf or do you have serious difficulty hearing Answer Date of Assessment Author Status No 08/14/2024 3:25 PM CDT Carol Valencia RN Active * Are you blind or do you have serious difficulty seeing, even when wearing glasses? Answer Date of Assessment Author Status No 08/14/2024 3:25 PM Carol Angulo RN Active * Do you have serious difficulty walking or climbing stairs? Answer Date of Assessment Author Status Yes 08/14/2024 3:25 PM Carol Angulo RN Active * Do you have difficulty dressing or bathing? Answer Date of Assessment Author Status Yes 08/14/2024 3:25 PM Carol Angulo RN Active * Because of a physical, mental, or emotional condition, do you have difficulty doing errands alone such as visiting a doctor's office or shopping? Answer Date of Assessment Author Status No 08/14/2024 3:25 PM Carol Angulo RN Active documented as of this encounter Mental Status * Because of a physical, mental, or emotional condition, do you have serious difficulty concentrating, remembering, or making decisions? Answer Entry Date Author Status No 08/14/2024 3:25 PM Carol Angulo RN Active documented in this encounter Plan of Treatment Upcoming Encounters Date Type Department Care Team (Late st Contact Info) Description 12/25/2024 9:00 AM DEHYDROGENATION SUPERVISOR Home Care Visit [address] [address] Marshall Anguiano, JOURNEYMAN PIPE WELDER [address] [place], [place] [address] 12/26/2024 10:45 AM DEHYDROGENATION SUPERVISOR Home Care Visit [facility] Care [address] [address] Alma Gunderson OT [address] [place], [place] [address] 12/26/2024 12:00 PM DEHYDROGENATION SUPERVISOR Home Care Visit [facility] Care [address] [address] Jeanne Bey, RN 12/29/2024 10:00 AM DEHYDROGENATION SUPERVISOR Home Care Visit [facility] Care [address] [place] [address] Marshall Anguiano, JOURNEYMAN PIPE WELDER [address] [place], [place] [address] 12/31/2024 9:00 AM DEHYDROGENATION SUPERVISOR Home Care Visit [facility] Care [address] [place] [address] [place] [address] Cindy Houser, PT [address] [place], [place] [address] 01/01/2025 11:20 AM DEHYDROGENATION SUPERVISOR Office Visit [facility] Family [facility] Internal Medicine - [address] [phone] Moses Conn MD [address] [place] [address] documented as of this encounter Goals Goal Patient Goal Type Associated Problems Recent Progress Patient-Stated? Author Health - patient able to perform ADLs independently Lifestyle On track(2024 12:07 PM DEHYDROGENATION SUPERVISOR) No Cristy Brantley RN Consistently take medications as Prescribed Lifestyle On track(2024 12:07 PM DEHYDROGENATION SUPERVISOR) No Cristy Brantley RN Establish Plan for Symptom Monitoring Lifestyle On track(2024 12:07 PM DEHYDROGENATION SUPERVISOR) No Cristy Brantley RN Note: Interventions for HTN include: 1) patient will recognize symptoms of HTN to report to physician including: headache, sob, nosebleed, severe anxiety, vision changes, feelings of pulsations in neck or head 2) patient will monitor b/p as directed by physician 3) patient will follow diet low in salt 4) b/p goal of <140/90 5) patient will take all medications as prescribed Establish Plan for Symptom Monitoring Lifestyle On track(2024 12:07 PM DEHYDROGENATION SUPERVISOR) No Cristy Brantley, RN Note: Hepatic encephalopathy goals: Patient and spouse will be aware of symptoms such as confusion, stomach distention to report. Patient and spouse will understand importance of lactulose. documented as of this encounter Visit Diagnoses Not on filedocumented in this encounter Additional Health Concerns Assessment Noted Time PHQ-9 Depression Total Score: 2 09/19/20 21 9:31 AM DEHYDROGENATION SUPERVISOR documented as of this encounter Home Health Visit - Care Plan Visit Details Visit Type -PT - Home Visit Discipline -Physical Therapy Problems Problem Description Start Date Status Goals Interve ntions Decreased Functional Mobility Disciplines: PT 11/21/2024 Active 1 goal linked to scheduled/document ed intervention 1 goal intervention scheduled/documen ever in this visit Collaboration of Care Disciplines: PT Collaboration for safe care. 11/21/2024 Active 3 goals linked to scheduled/document ed interventions 5 goal interventions scheduled/documen ever in this visit PT - Fall Precautions Disciplines: PT Patient at risk for falls or has had recent fall occurrence(s). 11/21/2024 Active 1 goal linked to scheduled/document ed intervention 1 goal intervention scheduled/documen ever in this visit Decreased Strength Disciplines: PT Decreased strength in lower extremities related to weakness due to recent hospital stay. 11/21/2024 Active 1 goal linked to scheduled/document ed intervention 1 goal intervention scheduled/documen ever in this visit Balance Deficit Disciplines: PT Impaired dynamic balance with potential safety problems related to increased fall risk . 11/21/2024 Active 1 goal linked to scheduled/document ed intervention 1 goal intervention scheduled/documen ever in this visit Goals Goal Associated Problem Outcome Goal Met? Visit Notes Patient improves functional mobility Description: Patietn to asc/desc 5 steps with supervision by 12/19 to enter/leave home for appts. Patient to ambulate independently indoors without device with improve step length to decrease fall risk as needed for 200-300 ft to assist with doctor appointments by 01/02/25 Decreased Functional Mobility Progressing No Patient verbalizes understanding of medication regimen Description: will verbalize understanding of medication regimen by 01/02/25 Collaboration of Care Met This Shift No Patient safety met through collaboration for safe care. Description: Clinicians will communicate patient care and safety needs during episode of care through 01/02/25. Collaboration of Care Met This Shift No PT - Homebound Status Description: Patient meets requirements of homebound status as evidenced by impared gait and stability, decreased cardiac reserve taxing effort to enter and exit the home, inability to leave home without caregiver present, walker required to leave the home Collaboration of Care Met This Shift No Patient/caregiver maintains a safe environment. Description: Patient/caregiver will verbalize a go0d understanding of home safety and fall prevention measures for a decreased risk of falling by 12/19 Patient/caregiver will demonstrate ability to maintain a safe environment without injuries or falls by 01/02 PT - Fall Precautions Met This Shift No Patient increases strength and/or functional mobility Description: Patient to demonstrate independence with LE HEP with increased LE MMT to 4/5 to promote improved mobility in/out of the home by 12/19/24 Patient to demonstrate independence with LE HEP with increased LE MMT to 4+/5 to promote improved mobility in/out of the home by 01/02/25 Decreased Strength Progressing No Patient improves balance and reduces fall risk Description: Patient to complete 1 stage of 4-stage balance test by 12/19 Patient to complete 2 stages of 4-stage balance test by 01/02 Balance Deficit Met This Shift No Interventions Intervention Associated Problem/Goal Status Variance Visit Notes Gait Deficit Description: Gait training. Problem:Decreased Functional Mobility Goal:Patient improves functional mobility Completed Instructed patient in ambulation to improve gait pattern, endurance and functional mobility. Patient ambulates 200' with cane on level surfaces in home and slight lateral deviation from pathway at times again today but no LOB. Verbal cues to increase step length, hand picker feet to improve foot clearance and increase heel strike/push off with more cues towards end of trial today as patient fatigued. Seated rest break after trial due to reports of fatigue. Medication Reconciliation Description: Clinician to review medications with patient each visit and report any changes to caseworker protective services and/or supervising PT . Problem:Collaboration of Care Goal:Patient verbalizes understanding of medication regimen Completed No changes noted this date. Assess Vital Signs Description: Obtain and record vital signs. Report to MD when vitals outside established parameters. BP: systolic blood pressure <90 or >160; diastolic blood pressure <60 or >90. Temperature: >100.5 F. Pulse: <60 or >100 bpm. Respiratory Rate: <12 or >28 /min. SPO2: <90%. May check SPO2 as needed for initial assessment or dyspnea. Problem:Collaboration of Care Goal:Patient safety met through collaboration for safe care. Completed Vitals taken and within appropriate parameters. Plan Towards Discharge Description: Document Patient and progress towards discharge. Problem:Collaboration of Care Goal:Patient safety met through collaboration for safe care. Completed Patient progressing towards goals. Care Coordination Description: Clinician to review plan of care with patient/caregivers(s) . Patient/Caregiver(s) agree(s) to plan of care and agrees to participate in care. Disciplines RN, JOURNEYMAN PIPE WELDER, OT and HDEZ and PCP Dr Conn Problem:Collaboration of Care Goal:Patient safety met through collaboration for safe care. Completed Reviewed plan of care with patient and patient in agreement. Plan for Next Visit Description: Next visit plan summation Problem:Collaboration of Care Goal:Patient safety met through collaboration for safe care. Completed Continue working on fall prevention techniques, lower extremity exercises, gait training and balance next therapy visit. Informed patient/caregiver of next therapy visit on 12/25/24 with both in agreement. Instruct on Fall Prevention Description: Educate Patient and about fall prevention. Problem:PT - Fall Precautions Goal:Patient/caregiver maintains a safe environment. Completed Patient and Caregiver was instructed on home safety and fall prevention techniques including 1. Keep all pathways clear. 2. Remove or tape down throw rugs. 3. Wear well fitting shoes when transferring or ambulating. 4. Use assist device when ambulating. 5. Night light at night in event of being up to toilet in night. 6. Change position slowly. 7. Stand for one or two minutes before walking. 8. All electrical cords should be along mulligan and not running across pathways. 9. Non slip mats in bathroom. 10. Regular activity. 11. Grab bars in bathroom. Patient verbalized a good understanding of all instructions. Decreased Strength Description: - Therapeutic exercise. - Establish/Upgrade home exercise program. Problem:Decreased Strength Goal:Patient increases strength and/or functional mobility Completed Instructed patient in lower extremity exercises to improve strength, range of motion and functional mobility. Patient performed the following seated exercises: heel/toe raises, knee extensions, hip flexion and hip abduction x 20 each. In standing with upper extremity support patient performed heel raises, hip flexion, hip abduction, hamstring curls and partial knee bends x 10 each. Visual cues for demonstration and verbal cues for technique, slow controlled movements, end range hold times and increase range of motion with patient showing improvement. Duration of rest breaks less today than last week. Instructed patient to continue performing exercises as directed laine patient verbalizing understanding. Balance Deficit Description: - Therapeutic exercise. - Establish or upgrade home program. - Implement balance training. Problem:Balance Deficit Goal:Patient improves balance and reduces fall risk Completed Instructed patient in balance exercises to improve functional mobility and reduce risk of falls. Patient performed the following unsupported standing static balance exercises with stand by/contact guard assistance: decreased base of support eyes closed for 30 seconds, decreased base of support eyes open with cervical rotations and flexion/extension, modified tandem stance for 15 seconds, tandem stance for 4-20 seconds x 6, decreased base of support with arm lifts and decreased base of support with mild/moderate perturbation's from all directions. LOB at beginning of tandem stance due to increase lateral sway but patient held position longer as reps progressed. Verbal cues to improve ankle strategies and trunk control with patient showing improvement. Will continue to progress as tolerated. documented in this encounter Care Teams Mushroom Grower Relationship Specialty Start Date End Date Moses Conn MD [address] [place] [address] PCP - General INTERNAL MEDICINE 11/29/18 Moses Conn MD [address] [place] [id number] PCP - Hospice Attending 12/17/24 Cristy Brantley RN [address] [place] [address] Medical Assistant Dermatology (Ambulatory) REGISTERED NURSE 09/15/24 documented as of this encounter
--- OUTSIDE RECORDS SUMMARY | 2024-12-23 12:55 | XMS_ITS | Encounter Summary ---
Author Organization [facility]IEX[facility]ong[facility] Address [address] [place] [address] Care Team Providers Care Glucose And Syrup Weigher Name Role Phone Moses Conn MD Primary Care Provider [phone] Encounter Details Date Type Department Care Team ([facility] Contact Info) Description 01/29/[address] [facility] Oncology and Hematology - [place] [address] [place] [address] Anish Perez MD [facility] [email or web address] [address] [place] [phone] Social History Tobacco Use Types Packs/Day [...] Upcoming Encounters Date Type Department Care Team ([facility] Contact Info) Description 01/01/2025 4:30 PM ANIMAL HERDER Telephone Check Up [facility] Oncology and Hematology - [place] [address] [place] [address] Anish Perez MD [email or web address] [place] [phone] documented as of this encounter Visit Diagnoses Not on filedocumented in this encounter Care Teams Glucose And Syrup Weigher Relationship Specialty Start Date End Date Moses Conn MD [address] [place] [id number] PCP - General Internal Medicine 04/12/22 documented as of this encounter
--- OUTSIDE RECORDS SUMMARY | 2024-12-23 12:55 | XMS_ITS | Clinical Summary ---
Author Organization [facility] Address [facility] [place] [address] Care Team Providers Care [employer] Worker Name Role Phone Moses Conn MD Primary Care Provider [phone] Cristy Brantley RN Unavailable [phone] Moses Conn MD Unavailable [phone] Allergies Active Allergy Reactions Criticality Noted Date Comments Cefditoren Rash Medium 05/27/2012 Tetracycline Rash Medium 05/27/2012 Medications fluticasone propionate 50 MCG/ACT nasal sprayIndications:N elian congestion 2 sprays by Each Nostril route daily as needed for Allergies. Indications: Nasal congestion 013 Active Vitamin D, Cholecalciferol, 1000 units CapIndications:sup plement Take 25 mcg by mouth daily. Indications: supplement Active ferrous sulfate EC 325 (65 Fe) MG tabletIndications: Iron Deficiency Take 1 tablet (325 mg total) by mouth 2 (two) times daily with meals. 60 tablet 5 022 Active NON FORMULARYIndicatio ns:Vitamin and/or Mineral Deficiency Take 1 tablet by mouth daily. Indications: Vitamin and/or Mineral Deficiency Eye Promise Active acyclovir (ZOVIRAX) 400 MG tabletIndications: Viral Infection Take 1 tablet (400 mg total) by mouth 2 (two) times daily. Indications: Viral Infection Active empagliflozin (JARDIANCE) 25 MG tabletIndications: Diabetes Mellitus Take 1 tablet (25 mg total) by mouth daily. 90 tablet 3 023 Active Additional Information Patient not taking.Reported on 12/16/2024 vitamin B-12 (CYANOCOBALAMIN) (CYANOCOBALAMIN) 1000 mcg tabletIndications: supplement Take 1 tablet (1,000 mcg total) by mouth daily. Indications: supplement Active nystatin (MYCOSTATIN) creamIndications:S kin Irritation APPLY TO AFFECTED AREA(S) TWO TIMES A DAY 30 g 3 023 Active simvastatin (ZOCOR) 20 MG tabletIndications: Hyperlipidemia take 1 tablet by mouth every day 90 tablet 3 024 Active carvedilol (COREG) 6.25 MG tabletIndications: Hypertension Take 1 tablet (6.25 mg total) by mouth 2 (two) times daily. Indications: High Blood Pressure 024 Active furosemide (LASIX) 40 MG tabletIndications: Diuretic Therapy Take 1 tablet (40 mg total) by mouth daily. Indications: Treatment with Diuretic Therapy Active sucralfate (CARAFATE) 1 G tabletIndications: Stomach Discomfort Take 1 tablet (1 g total) by mouth 4 (four) times daily. Indications: Stomach Discomfort 120 tablet 3 024 Active zinc gluconate 50 MG TabIndications:Vit santacruz and/or Mineral Deficiency Take 1 tablet (50 mg total) by mouth 2 (two) times daily. Indications: Vitamin and/or Mineral Deficiency 60 tablet 3 024 Active glimepiride (AMARYL) 2 MG tabletIndications: Diabetes Mellitus Take 1 tablet (2 mg total) by mouth every morning before breakfast. 30 tablet 2 Active Additional Information Patient not taking.Reported on 12/16/2024 lactulose (CHRONULAC) 10 GM/15ML solutionIndication s:Cirrhosis take 30 milliliters by mouth every 6 hours. indications: increased ammonia in the blood 3784 mL 2 024 Active ondansetron (ZOFRAN-ODT) 4 MG disintegrating tabletIndications: Nausea Take 1 tablet (4 mg total) by mouth every 8 (eight) hours as needed for Nausea. Indications: Nausea 20 tablet 024 Active rifAXIMin (XIFAXAN) 550 MG TabIndications:Meliza rrhea Take 1 tablet (550 mg total) by mouth 2 (two) times daily. Indications: Diarrhea 024 2024 Active omeprazole (PRILOSEC) 40 MG capsuleIndications :Nonerosive Gastroesophagel Reflux Disease TAKE 1 CAPSULE BY MOUTH TWICE A DAY 180 capsule 1 Active spironolactone (ALDACTONE) 100 MG tabletIndications: Edema Take 1 tablet (100 mg total) by mouth daily. Indications: Edema Active ciprofloxacin (CIPRO) 500 MG tabletIndications: Antibiotic Therapy Take 1 tablet (500 mg total) by mouth daily. Indications: Infection Treatment Active spironolactone (ALDACTONE) 50 MG tabletIndications: Diuretic Therapy Take 1 tablet (50 mg total) by mouth daily. Indications: Treatment with Diuretic Therapy 2024 Discontinued(D ose adjustment) SITagliptin (JANUVIA) 100 MG tabletIndications: Diabetes Mellitus Take 1 tablet (100 mg total) by mouth daily. 30 tablet 5 024 2024 Discontinued(C ost of medication) metFORMIN (GLUCOPHAGE) 1000 MG tabletIndications: Diabetes Mellitus Take 1 tablet (1,000 mg total) by mouth 2 (two) times daily with meals. Indications: Diabetes 180 tablet 024 2024 Discontinued metFORMIN (GLUCOPHAGE) 1000 MG tabletIndications: Diabetes Mellitus TAKE 1 TABLET (1,000 MG TOTAL) BY MOUTH 2 (TWO) TIMES DAILY WITH MEALS. INDICATIONS: DIABETES 180 tablet 025 2024 Discontinued(D iscontinued by another clinician) Hospital, Clinic, or Other Facility Administered Medication Ordered Dose Route Frequency Start Date End Date Status sodium chloride 0.9% infusionIndications:Vitamin and/or Mineral Deficiency IV Once 08/17/2021 Active Active Problems Problem Noted Date Diagnosed Date Care Management 09/15/2024 Metabolic dysfunction-associ ated steatotic liver disease (MASLD) 09/02/2024 Non-Hodgkin's lymphoma (CMS/HCC HHS/HCC) Hepatic encephalopathy (CMS/HCC HHS/HCC) Fecal occult blood test positive 07/15/2024 Esophageal varices (CMS/HCC HHS/HCC) 07/15/2024 Erosive gastritis 07/15/2024 Chronic obstructive pulmonary disease (CMS/HCC H HS/HCC) 07/15/2024 Confusion 07/15/2024 Myalgia 07/15/2024 Generalized edema 07/15/2024 Type 2 diabetes mellitus wit h hyperglycemia ([facility]/HCC) 02/14/2024 Normocytic anemia 02/14/2024 Iron deficiency anemia 02/14/2024 Other ascites 01/08/2024 Other cirrhosis of liver ([facility]/HCC) 01/07 SBO (small bowel obstruction) ([facility]) 09/25/2023 Chemotherapy-induced neutropenia 09/25/2023 Pacemaker 07/18/2023 Overview (07/18/2023): Last Assessment & Plan: Patient has sick sinus syndrome with tachy bradyarrhythmia atrial fibrillation and bradycardia requiring permanent pacemaker which is functioning is being monitored Follicular non-Hodgkin's lymphoma ([facility]/ CC) 02/26/2023 Intestinal lymphoma ([facility]) 02/16/2023 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 ([facility]) 01/15/2023 Abdominal aortic atherosclerosis 01/15/2023 Iron deficiency 01/15/2023 Combined forms of age-related cataract of both e yes 08/18/2022 Other dietary vitamin B12 deficiency anemia 05/06 Mesenteric lymphadenopathy 05/03/2022 Normocytic anemia 04/12/2022 Chronic anemia 04/12/2022 Pancytopenia ([facility]) 04/12/2022 Status post biventricular cardiac pacemaker inse rtion 12/26/2021 Paroxysmal atrial fibrillation ([facility]) 06/01/2021 Overview (02/14/2024): Last Assessment & Plan: History of atrial fibrillation with a controlled rate patient is on Eliquis tolerating well no side effects plan to continue same LBBB (left bundle branch block) 05/15/2021 Bradycardia 05/15/2021 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 02/18/2021 Mitral valve regurgitation 11/04/2020 Overview (07/18/2023): Last Assessment & Plan: Patient has mitral regurgitation which is minimal patient is ejection fraction left ventricular size normal patient not having any symptoms of shortness of breath or any other signs of for congestive heart failure plan to continue monitoring Gastroesophageal reflux disease without esophagi tis 08/26/2020 Actinic keratoses 09/09/2018 BMI 27.0-27.9,adult 08/27/2018 Aortic valve stenosis, moderate 08/20/2017 Allergic rhinitis 03/06/2013 Vitamin D deficiency 05/28/2012 Benign essential hypertension 05/27/2012 Hyperlipidemia 05/27/2012 Type 2 diabetes mellitus ([facility]) 05/27 Resolved Problems Problem Noted Date Diagnosed Date Resolved Date ALEMAN (dyspnea on exertion) 05/14/2021 Encounters Date Type Department Care Team Description 12/23/2024 9:00 AM DEHYDRATION UNIT OPERATOR Home Care Visit [address] [address] Natividad Amato OTA HDEZ HOME VISIT 12/22/2024 10:15 AM DEHYDRATION UNIT OPERATOR Home Care Visit [address] [address] Marshall Anguiano L, [employer] PT HOME VISIT 12/18/2024 11:45 AM DEHYDRATION UNIT OPERATOR Home Care Visit [address] [address] Marshall Anguiano, [employer] PT HOME VISIT 12/18/2024 9:00 AM DEHYDRATION UNIT OPERATOR Home Care Visit [address] [address] Natividad Amato OTA HDEZ HOME VISIT 12/17/2024 Patient Outreach [facility] Medical [facility] Family & Internal Medicine [address] [phone] Cristy Brantley, OLAF Care Management 12/16/2024 2:00 PM DEHYDRATION UNIT OPERATOR Office Visit [facility] Family & Internal [address] [address] Moses Conn MD TCM ([facility] D/C 2/3 for hepatic cirrhosis); Medication ([facility] D/C'd januvia, metformin, and Furosemide. Patient's is worried that glucose has been running 300's fasting and patient's legs are swelling) 12/16/2024 Travel 12/15/2024 2:00 PM DEHYDRATION UNIT OPERATOR Home Care Visit [address] [place] [address] Cindy Houser, PT PT HOME VISIT 12/15/2024 1:00 PM DEHYDRATION UNIT OPERATOR Home Care Visit [address] [address] Alma Gunderson, OT OT INITIAL EVALUATION 12/15/2024 Telephone [facility] Family & Internal [address] [address] Moses Conn MD Referral Request 12/11/2024 9:00 AM DEHYDRATION UNIT OPERATOR Home Care Visit [address] [address] Cindy Houser, PT PT INITIAL EVALUATION 12/11/2024 Patient Outreach [facility] Family & Internal [address] [address] Kandis Bo, FREIGHT ELEVATOR ERECTOR Care Management 12/10/2024 11:00 AM DEHYDRATION UNIT OPERATOR Home Care Visit [address] [address] Basilia Curtis, RN SN OASIS RESUMPTION OF CARE 12/10/2024 Scan HEALTH INFO SRVCS Scanned, Doc Med Group 12/10/2024 Telephone [facility] Family & Internal [address] [address] Moses Conn MD Information (Fall/home health) 12/10/2024 Plan of Care Documentation [address] [address] 12/09/2024 Scan MG HEALTH INFO SRVCS Scanned, Doc Med Group Procedure (SCAN) 12/09/2024 Telephone [facility] Family & Internal [address] [place] [address] Moses Conn MD Lab Order 12/09/2024 Patient Outreach [facility] & Internal [address] [place] [phone] Cristy Brantley, RN [facility] (slu 12/03-12/08) 12/09/2024 Home Care Visit [address] [place] [address] Michelle Kamara RN SN NON ADMIT HOLLIE 12/08/2024 Scan nChannel INFO SRVCS Scanned, Doc Med Group 12/05/2024 Home Care Visit [address] [place] [address] Michelle Olivo RN SN OASIS TRANSFER W/OUT DC 12/05/2024 Patient Outreach [facility] Family & Internal [address] [place] [address] Cristy Brantley, OLAF Hospital Follow Up 12/04/2024 Scan nChannel INFO SRVCS Scanned, Doc Med Group 12/04/2024 Patient Outreach [facility] & Internal [address] [place] [phone] Campos Sparrow, [facility] Medication (Xifaxin Patient assistance has been approved) 12/03/2024 Home Care Visit [address] [place] [address] Xavi Dave LPN SN TELEPHONE CALL 12/02/2024 6:00 PM DEHYDRATION UNIT OPERATOR Home Care Visit [address] [address] Natividad Amato OTA HDEZ HOME VISIT 12/02/2024 12:15 PM DEHYDRATION UNIT OPERATOR Home Care Visit [address] [place] [facility] [address] Xavi Dave LPN SN HOME VISIT 12/01/2024 2:00 PM DEHYDRATION UNIT OPERATOR Home Care Visit [address] [address] Marshall Anguiano, WO[employer] HOME VISIT 12/01/2024 10:40 AM DEHYDRATION UNIT OPERATOR Office Visit [facility] & Internal [address] [phone] Moses Conn MD TCM ([facility] f/u 11/06-11/13 for encephalopathy); Confusion (Patient has increased confusion today. ) 12/01/2024 Scan Mimetas SRVCS Scanned, Doc Med Group Lab (SCAN) 12/01/[address] [address] Moses Conn MD Information 12/01/2024 Travel 11/28/2024 Patient Outreach [facility] Internal [address] [address] Campos Sparrow, clinical study manager Medication (Xifaxin Patient Assistance ) 11/27/2024 2:15 PM DEHYDRATION UNIT OPERATOR Home Care Visit [address] [address] Marshall Anguiano, [employer] HOME VISIT 11/27/2024 1:30 PM DEHYDRATION UNIT OPERATOR Home Care Visit [address] [address] Jeanne Bey RN SN HOME VISIT 11/27/2024 9:00 AM DEHYDRATION UNIT OPERATOR Home Care Visit [address] [address] Natividad Amato OTA HDEZ HOME VISIT 11/26/2024 12:45 PM DEHYDRATION UNIT OPERATOR Home Care Visit [address] [address] Short, Marshall L, [employer] HOME VISIT 11/26/2024 Patient Outreach [facility] Family & Internal [address] [phone] Campos Sparrow, clinical study manager Medication (Xifaxin pap follow up) 11/25/2024 Scan HEALTH INFO SRVCS Scanned, Doc Med Group Ultrasound (SCAN) 11/25/2024 Patient Outreach [facility] Internal [address] [address] Cristy Brantley, RN Care Management 11/24/2024 1:15 PM DEHYDRATION UNIT OPERATOR Home Care Visit [address] [phone] Alma Gunderson, OT OT INITIAL EVALUATION 11/21/2024 9:30 AM DEHYDRATION UNIT OPERATOR Home Care Visit [address] [phone] Vidhya Sanabria, PT PT INITIAL EVALUATION 11/19/2024 9:30 AM DEHYDRATION UNIT OPERATOR Home Care Visit [address] [phone] Miki Mcarthur, RN SN OASIS START OF CARE 11/19/2024 Plan of Care Documentation [address] [phone] 11/18/2024 Scan HEALTH INFO SRVCS Scanned, Doc Med Group Procedure (SCAN); Lab (SCAN) 11/13/2024 Scan MG HEALTH INFO SRVCS Scanned, Doc Med Group 11/13/[address] [phone] Moses Conn MD Advise 11/13/[address] [phone] Moses Conn MD Advise 11/13/[address] [address] Scanned, Doc [facility] 11/13/2024 Telephone [facility] Family Internal [address] [place] [address] Moses Conn MD Referral; Information 11/07/2024 Scan MG HEALTH INFO SRVCS Scanned, Doc Med Group 11/07/2024 Patient Outreach [facility] Internal [address] [place] [address] Campos Sparrow clinical study manager Medication (Xifaxin patient assistance program ) 11/06/2024 Scan MG HEALTH INFO SRVCS Scanned, Doc Med Group 11/06/2024 Patient Outreach [facility] Internal [address] [place] [address] Campos Sparrow clinical study manager Medication (Xifaxin Patient Assistance 2024) 11/03/2024 Scan MG HEALTH INFO SRVCS Scanned, Doc Med Group Procedure (SCAN) 10/30/2024 Patient Outreach [facility] Internal [address] [place] [address] Kerri Brewer, OLAF TCM ([facility] 10/23-10/28) 10/28/2024 Scan MG HEALTH INFO SRVCS Scanned, Doc Med Group 10/28/2024 Telephone [address] [place] [address] Moses Conn MD Referral 10/27/2024 Scan MG HEALTH INFO SRVCS Scanned, Doc Med Group 10/27/2024 Patient Outreach [facility] Internal [address] [place] [address] Kerri Berwer RN Hospital Follow Up (SLU admission notification) 10/21/2024 Scan MG HEALTH INFO SRVCS Scanned, Doc Med Group Ultrasound (SCAN) 10/21/2024 Telephone [facility] Internal [address] [place] [address] Moses Conn MD Referral 10/17/2024 Scan MG HEALTH INFO SRVCS Scanned, Doc Med Group 10/15/2024 Scan MG HEALTH INFO SRVCS Scanned, Doc Med Group 10/14/2024 Scan MG HEALTH INFO SRVCS Scanned, Doc Med Group Procedure (SCAN) 10/14/2024 Telephone [facility] Internal [address] [phone] Moses Conn MD Forms 10/14/2024 Patient Outreach [facility] Internal [address] [address] Cristy Brantley, RN Care Management 10/09/2024 10:40 AM DEHYDRATION UNIT OPERATOR Office Visit [address] [phone] Moses Conn MD TCM ([facility] f/u 09/30); Diabetes (Patient report BS are elevated. ) 10/09/2024 Travel 10/07/2024 Scan MG HEALTH INFO SRVCS Scanned, Doc Med Group Procedure (SCAN); Lab (SCAN) 10/01/[address] [address] Moses Conn MD Referral 10/01/2024 Patient Outreach [address] [phone] Cristy Brantley, RN TCM ([facility] 09/28-09/30) 09/30/2024 Scan MG HEALTH INFO SRVCS Scanned, Doc Med Group 09/29/2024 Patient Outreach [address] [phone] Cristy Brantley, RN Hospital Follow Up (Tcm #1) 09/28/2024 Scan MG HEALTH INFO SRVCS Scanned, Doc Med Group 09/24/[address] [address] Moses Conn MD Medication 09/23/2024 Scan MG HEALTH INFO SRVCS Scanned, Doc Med Group Procedure (SCAN) 09/22/2024 10:30 AM DEHYDRATION UNIT OPERATOR Home Care Visit [facility] Home Care [address] [place] [address] Jenna Gale, RN SN OASIS DISCHARGE/ASSESSME NT from Last 3 Months Immunizations Name Administration Dates Next Due Fluzone 6 Months+ Quad (0.5 mL Prefilled Syringe) 08/03/2020 Fluzone High Dose (IIV, triv alent, 0.5mL) 09/11/2024 Fluzone High Dose - >Age 65 (Prefilled Syringe) 07/31/2022,08/17/2021 Influenza (Generic) 08/27/2012 Influenza Adult (Generic) 07/31/2022,,08/07/2019,2016,08/08/2016,08/03/2015,07/30/2014 PFIZER COVID-19 (ORIGINAL FORMULATION, PURPLE CAP) mRNA, LNP-S, PF, 30 MCG/0.3 ML DOSE 09/08/2021,01/06/2021,12/10/2020 Pneumococcal (Pneumovax 23) 07/22/2018 Pneumococcal (Prevnar 13) 09/06/2019,08/08/2016 Shingrix 06/13/2018,02/21/2018 Family History Medical History Relation Comments Diabetes Father Heart Disease Father Diabetes Mother Heart Disease Mother Relation Status Comments Father Mother Social History Tobacco Use Types Packs/Day Years Used Date Smoking Tobacco: Former Cigarettes 2 10 0 11/05/1987 - 11/05/1997 Cigars Passive Smoke Exposure: Never Smokeless Tobacco: Never Tobacco Cessation:Counseling Given: Yes Alcohol Use Standard Drinks/Week Comments Not Currently [...] from your doctor or pharmacy? Often 08/14/2024 [facility] Utilities Answer Date Recorded In the past 12 months has th e [employer], [employer], oil, or water [employer] threatened to shut off services in your [...] Recorded Patient Health Questionnaire-2 Score 0 12/16/2024 [facility] - Occupational Stress [...] in the past 12 m [facility], were you homeless or living in a snf (including now)? No 08/14/2024 Sex and Gender Information Value Date Recorded Sex Assigned at Male 02/25/2019 9:28 AM CDT Legal Sex Male 10:23 PM CDT Gender Identity Male 02/25/2019 9:28 AM CDT Sexual Orientation Straight 02/25/2019 9: 28 AM CDT Last Filed Vital Signs Vital Sign Reading Time Taken Comments Blood Pressure 127/80 12/23/2024 9:34 AM DEHYDRATION UNIT OPERATOR Pulse 80 12/23/2024 9:34 AM DEHYDRATION UNIT OPERATOR Temperature 36.7 C (98 F) 12/23/2024 9:34 AM DEHYDRATION UNIT OPERATOR Respiratory Rate 18 12/23/2024 9:34 AM DEHYDRATION UNIT OPERATOR Oxygen Saturation 99% 12/22/2024 10:16 AM DEHYDRATION UNIT OPERATOR Inhaled Oxygen Concentration - - Weight 54.7 kg (120 lb 8 oz) 12/16/2024 2:51 PM DEHYDRATION UNIT OPERATOR Height 162.6 cm (5' 4 ) 12/16/2024 2:51 PM DEHYDRATION UNIT OPERATOR Body Mass Index 20.68 12/16/2024 2:51 PM DEHYDRATION UNIT OPERATOR Plan of Treatment Upcoming Encounters Date Type Department Care Team (Late st Contact Info) Description 12/25/2024 9:00 AM DEHYDRATION UNIT OPERATOR Home Care Visit [address] [address] Marshall Anguiano, [employer] [address] [place], [place] [phone] 12/26/2024 10:45 AM DEHYDRATION UNIT OPERATOR Home Care Visit [facility] Care [address] [address] Alma Gunderson, OT [address] [place], [place] [phone] 12/26/2024 12:00 PM DEHYDRATION UNIT OPERATOR Home Care Visit [address] [address] Jeanne Bey RN 12/29/2024 10:00 AM DEHYDRATION UNIT OPERATOR Home Care Visit [address] [address] Marshall Anguiano, [employer] [address] [place], [place] [phone] 12/31/2024 9:00 AM DEHYDRATION UNIT OPERATOR Home Care Visit [address] [address] Cindy Houser, PT [address] [place], [place] [id number] 01/01/2025 11:20 AM DEHYDRATION UNIT OPERATOR Office Visit [facility] Medical Group Family & Internal Medicine [address] [place] [address] Moses [place] MD [address] [place] [phone] Health Maintenance Due Date Last Done Comments Annual Medicare Wellness Visit 09/20/2022 09/19/2021 Colorectal Cancer Screening FIT-DNA (3 Years) 10/25/2023 10/25/2020, 10/25/2020, 10/12/2017 Kidney Health Evaluation 01/01/2025 01/01/2024 Diabetes: Retinopathy Eye Exam 02/04/2025 02/05/2024, 01/30/2023, 04/09/2020 Hemoglobin A1C 04/24/2025 10/24/2024, 08/05, 08/14/2024, Additional history exists Lipid Panel 08/06/2025 08/06/2024, 12/07, 07/13/2022, Additional history exists COVID-19 Vaccine ( season) 2025 09/08/2021, 01/06/2021, 12/10/2020 Postponed from 07/06/2024 (Patient Refused) DTaP, Tdap and Td Vaccines (1 - Tdap) 09/11/2025 Postponed from 1964 (Going to Outside Clinic) RSV Immunization or 60+ Years (1 - 1-dose 75+ series) 09/11/2025 Postponed from 2020 (Going to Outside Clinic) Zoster Vaccines Completed 06/13/2018, 02/21/2018 Pneumococcal Vaccine: 65+ Years Completed 09/06/2019, 07/22/2018, 08/08/2016 Hepatitis C Completed 06/17/2024, 06/05, 06/17/2024, Additional history exists Influenza Adult Completed 09/11/2024, 07/07, 07/31/2022, Additional history exists PHQ-2 (Physician [place]) Completed 12/16/2024 Meningococcal B Vaccine Aged Out No l onger eligible based on patient's age to complete this topic Meningococcal Vaccine Aged Out No constantino benito eligible based on patient's age to complete this topic RSV Immunizations Under 20 Months Aged Out No longer eligible based on patient's age to complete this topic Goals Goal Patient Goal Type Associated Problems Recent Progress Patient-Stated? Author Health - patient able to perform ADLs independently Lifestyle On track(2024 12:07 PM DEHYDRATION UNIT OPERATOR) No Cristy Brantley RN Consistently take medications as Prescribed Lifestyle On track(2024 12:07 PM DEHYDRATION UNIT OPERATOR) No Ko[place], Cristy N, RN Establish Plan for Symptom Monitoring Lifestyle On track(2024 12:07 PM DEHYDRATION UNIT OPERATOR) No Cristy Brantley RN Note: Interventions for [...] Symptom Monitoring Lifestyle On track(2024 12:07 PM DEHYDRATION UNIT OPERATOR) No Cristy Brantley, RN Note: Hepatic encephalopathy goals: Patient and spouse will be aware of symptoms such as confusion, stomach distention to report. Patient and spouse will understand importance of lactulose. Procedures Procedure Name Priority Date/Time Associated Diagnosis Comments CBC W/DIFF AUTOMATED Routine 12/16/2024 3:37 PM DEHYDRATION UNIT OPERATOR Other cirrhosis of liver (CMS/HCC HHS/HCC) Anemia, unspecified type COLLECTION VENOUS BLOOD VENIPUNCTURE Routine 12/16/2024 2:40 PM DEHYDRATION UNIT OPERATOR Other cirrhosis of liver (CMS/HCC HHS/HCC) COMPREHENSIVE METABOLIC PANEL Routine 12/16/2024 2:40 PM DEHYDRATION UNIT OPERATOR Other cirrhosis of liver (CMS/HCC HHS/HCC) PROCEDURE GENERIC (SCAN ORDER) 12/09/2024 OUTSIDE LAB (SCAN ORDER) 12/01/2024 OUTSIDE LAB (SCAN ORDER) 12/01/2024 OUTSIDE LAB (SCAN ORDER) 12/01/2024 OUTSIDE LAB (SCAN ORDER) 12/01/2024 ULTRASOUND GENERIC (SCAN ORDER) 11/25/2024 OUTSIDE PT/INR (SCAN ORDER) 11/18/2024 PROCEDURE GENERIC (SCAN ORDER) 11/18/2024 PROCEDURE GENERIC (SCAN ORDER) 11/03/2024 ULTRASOUND GENERIC (SCAN ORDER) 10/21/2024 PROCEDURE GENERIC (SCAN ORDER) 10/14/2024 OUTSIDE PT/INR (SCAN ORDER) 10/07/2024 PROCEDURE GENERIC (SCAN ORDER) 10/07/2024 PROCEDURE GENERIC (SCAN ORDER) 09/23/2024 HEMOGLOBIN, GLYCOSYLATED Routine 08/14/2024 4:13 PM CDT LIPID PANEL Routine 08/06/2024 11:00 AM CDT Diffuse large B-cell lymphoma of intra-abdominal lymph nodes (CMS/HCC HHS/HCC) Benign essential hypertension DIABETIC RETINOPATHY EXAM (POSITIVE)(SCAN ORDER) Routine 02/05/2024 HEPATITIS C ANTIBODY 06/28/2021 8:41 AM CDT COLOGUARD (SCAN ORDER) Routine 10/25/2020 from Last 3 Months or Most Recently Relevant to Health Maintenance Results * (ABNORMAL) CBC W/DIFF AUTOMATED (12/16/2024 3:37 PM DEHYDRATION UNIT OPERATOR) [facility] WBC 3.56(L) 4.00 - 10.80 x10'3/uL 12/16/2024 7:27 PM DEHYDRATION UNIT OPERATOR [facility] RBC 2.40(L) 4.50 - 6.10 x10'6/uL 12/16/2024 7:27 PM DEHYDRATION UNIT OPERATOR [facility] HGB 7.5(L) 13.0 - 18.0 G/DL 12/16/2024 7:27 PM DEHYDRATION UNIT OPERATOR [facility] HCT 24.0(L) 37.0 - 52.0 % 12/16/2024 7:27 PM DEHYDRATION UNIT OPERATOR [facility] MCV 100.0 78.0 - 100.0 FL 12/16/2024 7:27 PM DEHYDRATION UNIT OPERATOR [facility] MCH 31.3(H) 27.0 - 31.0 PG 12/16/2024 7:27 PM DEHYDRATION UNIT OPERATOR [facility] MCHC 31.3(L) 33.0 - 36.0 G/DL 12/16/2024 7:27 PM DEHYDRATION UNIT OPERATOR [facility] RDW 17.2(H) 11.5 - 14.5 % 12/16/2024 7:27 PM DEHYDRATION UNIT OPERATOR [facility] PLT 153 150 - 350 x10'3/uL 12/16/2024 7:27 PM [facility] MPV 11.5(H) 7.4 - 10.4 FL 12/16/2024 7:27 PM [facility] DIFFERENTIAL TYPE AUTOMATED DIFFERENTIAL 12/16/2024 7:27 PM [facility] NEUTROPHILS % 78.7 % 12/16/2024 7:27 PM [facility] LYMPHOCYTES % 8.4 % 12/16/2024 7:27 PM [facility] MONOCYTES % 8.1 % 12/16/2024 7:27 PM [facility] EOSINOPHILS % 3.7 % 12/16/2024 7:27 PM [facility] BASOPHILS % 0.3 % 12/16/2024 7:27 PM [facility] IMMATURE GRANS % 0.8 % 12/16/2024 7:27 PM [facility] ABS. NEUTROPHILS 2.80 1.60 - 8.30 x10'3/uL 12/16/2024 7:27 PM [facility] ABS. LYMPHOCYTES 0.30(L) 0.80 - 4.70 x10'3/uL 12/16/2024 7:27 PM [facility] ABS. MONOCYTES 0.29 0.00 - 1.50 x10'3/uL 12/16/2024 7:27 PM [facility] ABS. EOSINOPHILS 0.13 0.00 - 0.40 x10'3/uL 12/16/2024 7:27 PM [facility] ABS. BASOPHILS 0.01 0.00 - 0.20 x10'3/uL 12/16/2024 7:27 PM [facility] ABS. IMMATURE GRANULOCYTES 0.03 0.00 - 0.03 x10'3/uL 12/16/2024 7:27 PM [facility] 12/16/2024 3:37 PM DEHYDRATION UNIT OPERATOR Moses Conn MD LABORATORY Final Result -[facility] [address] [place] [address], [place] [phone] * (ABNORMAL) COMPREHENSIVE METABOLIC PANEL (12/16/2024 2:40 PM DEHYDRATION UNIT OPERATOR) Pathologist [facility] SODIUM S/P/B 136 136 - 145 MMOL/L 12/17/2024 12:11 PM DEHYDRATION UNIT OPERATOR [facility] POTASSIUM S/P/B 4.2 3.5 - 5.1 MMOL/L 12/17/2024 12:11 PM DEHYDRATION UNIT OPERATOR [facility] CHLORIDE S/P/B 105 98 - 107 MMOL/L 12/17/2024 12:11 PM DEHYDRATION UNIT OPERATOR [facility] CO2 21.9 21 - 32 MMOL/L 12/17/2024 12:11 PM DEHYDRATION UNIT OPERATOR [facility] GLUCOSE 352(H) 70 - 99 MG/DL 12/17/2024 12:11 PM [facility] BUN 23(H) 7 - 18 MG/DL 12/17/2024 12:11 PM DEHYDRATION UNIT OPERATOR [facility] CREATININE S/P/B 1.72(H) 0.70 - 1.30 MG/DL 12/17/2024 12:11 PM DEHYDRATION UNIT OPERATOR [facility] CALCIUM S/P/B 8.8 8.4 - 10.5 MG/DL 12/17/2024 12:11 PM DEHYDRATION UNIT OPERATOR [facility] BILIRUBIN TOTAL S/P/B 0.6 0.2 - 1.0 MG/DL 12/17/2024 12:11 PM [facility] ALKALINE PHOSPHATASE S/P/B 514(H) 45 - 115 U/L 12/17/2024 12:41 PM DEHYDRATION UNIT OPERATOR [facility] Comment:RESULTS CONFIRMED-TE ST REPEATED AST 68(H) 15 - 37 U/L 12/17/2024 12:11 PM [facility] ALT 97(H) 16 - 63 U/L 12/17/2024 12:11 PM [facility] TOTAL PROTEIN S/P/B 6.1(L) 6.4 - 8.2 G/DL 12/17/2024 12:11 PM [facility] ALBUMIN S/P/B 2.4(L) 3.4 - 5.0 G/DL 12/17/2024 12:11 PM [facility] ANION GAP 9.1 5 - 15 MMOL/L 12/17/2024 12:11 PM [facility] Comment:REFERENCE RANGE NOT ESTABLISHED OSMOLALITY (CALC) 300 MOSM/KG 025 12:11 PM [facility] Comment:REFERENCE RANGE NOT ESTABLISHED GFR ESTIMATE 40(L) >90 ML/MIN/1. 73 M2 12/17/2024 12:11 PM [facility] GFR NOTES GFR REFERENCE S: 12/17/2024 12:11 PM [facility] Comment: THE ESTIMATED GFR IS CALCULATED USING THE 2020 CKD-EPI EQUATION. THE FOLLOWING CATEGORIES FOR GRADING RENAL FUNCTION ARE RECOMMENDED BY THE INTERNATIONAL SOCIETY OF NEPHROLOGY (KDIGO 2012 CLINICAL PRACTICE GUIDELINE). G1,NORMAL OR HIGH: >89 ml/min/1.73 m2 G2,MILDLY DECREASED: 60-89 ml/min/1.73 m2 G3A,MILDLY TO MODERATELY DECREASED: 45-59 ml/min/1.73 m2 G3B,MODERATELY TO SEVERELY DECREASED: 30-44 ml/min/1.73 m2 G4,SEVERELY DECREASED: 15-29 ml/min/1.73 m2 G5,KIDNEY FAILURE: <15 ml/min/1.73 m2 12/16/2024 2:40 PM DEHYDRATION UNIT OPERATOR Moses Conn MD LABORATORY Final Result [facility] [address] [place] [address], * PROCEDURE GENERIC (SCAN ORDER) (12/09/2024) 12/09/2024 [facility] Scanned SCANNING Final Resu lt * OUTSIDE LAB (SCAN ORDER) (12/01/2024) Only the most recent of4 resultswithin the time period is included. 12/01/2024 [facility] Scanned SCANNING Final Resu lt * ULTRASOUND GENERIC (SCAN ORDER) (11/25/2024) Only the most recent of2 resultswithin the time period is included. Anatomical Region Laterality Modality Other 11/25/2024 [facility] Scanned SCANNING Final Resu lt * OUTSIDE PT/INR (SCAN ORDER) (11/18/2024) Only the most recent of2 resultswithin the time period is included. 11/18/2024 [facility] Scanned SCANNING Final Resu lt * PROCEDURE GENERIC (SCAN ORDER) (11/18/2024) 11/18/2024 [facility] Scanned SCANNING Final Resu lt * PROCEDURE GENERIC (SCAN ORDER) (11/03/2024) 11/03/2024 [facility] Scanned SCANNING Final Resu lt * PROCEDURE GENERIC (SCAN ORDER) (10/14/2024) 10/14/2024 [facility] Scanned SCANNING Final Resu lt * PROCEDURE GENERIC (SCAN ORDER) (10/07/2024) 10/07/2024 [facility] Scanned SCANNING Final Resu lt * PROCEDURE GENERIC (SCAN ORDER) (09/23/2024) 09/23/2024 [facility] Scanned SCANNING Final Resu lt * LIPID PANEL (08/06/2024 11:00 AM CDT) CHOLESTEROL 117 <200 MG/DL 08/06/2024 4:50 PM CDT [facility] TRIGLYCERIDES 40 <150 MG/DL 08/06/2024 4:50 PM CDT [facility] HDL 57 >40 MG/DL 08/06/2024 4:50 PM CDT [facility] LDL-C 52 <100 MG/DL 08/06/2024 4:50 PM CDT [facility] VLDL CALCULATION 8 5 - 28 MG/DL 08/06/2024 4:50 PM CDT [facility] CHOL/HDL RATIO 2.1 0.0 - 4.0 08/06/2024 4:50 PM CDT [facility] LDL/HDL 0.9 0.41 - 2.13 08/06/2024 4:50 PM CDT [facility] NON HDL CHOLESTEROL 60 <140 MG/DL 08/06/2024 4:50 PM CDT [facility] 08/06/2024 11:0 0 AM CDT Moses Conn MD LABORATORY Final Result [facility] [address] [facility] [place] [address], * DIABETIC RETINOPATHY EXAM (POSITIVE) (02/05/2024) [facility] Scanned SCANNING Final Resu lt [facility] * HEPATITIS C ANTIBODY (06/28/2021 8:41 AM CDT) HEPATITIS C AB <0.1 0.0 - 0.9 s/co ratio [facility] 1 Comment: Negative: < 0.8 Indeterminate: 0.8 - 0.9 Positive: > 0.9 The CDC recommends that a positive HCV antibody result be followed up with a HCV Nucleic Acid Amplification test (049718). 06/28/2021 8:41 AM CDT 06/28/2021 Narrative [facility] - 06/29/2021 8:15 AM CDT Performed at: - [facility] [id number] Provider Network Analyst: Preston Valdez PhD, Phone: [phone] us Moses Conn MD LABORATORY Final Result Performing Organization Address [facility] Co de Phone Number [facility] [address] [place] [address] [facility] 1 * COLOGUARD (SCAN) (10/25/2020) COLOGUARD NEGATIVE [facility] Stool specimen (specimen) 10/25/2020 Documents Scanned SCANNING Final Result [facility] from Last 3 Months or Most Recently Relevant to Health Maintenance Insurance [employer] Advance Directives * Full Code (Latest Code Status on File) Date Activated Date Inactivated Comments 11/19/2024 10:01 AM * Full Code Date Activated Date Inactivated Comments 09/03/2024 1:19 PM 11/19/2024 10:01 AM * Full Code Date Activated Date Inactivated Comments 08/21/2024 8:49 AM 09/03/2024 1:19 PM * Full Code Date Activated Date Inactivated Comments 08/14/2024 2:08 PM 08/15/2024 10:57 PM * Full Code Date Activated Date Inactivated Comments 07/25/2024 9:43 AM 08/13/2024 2:26 PM Care Teams Metal Casting Trades Worker Relationship Specialty Start Date End Date Moses Conn MD [address] [place] [address] PCP - General INTERNAL MEDICINE 11/29/18 Moses Conn MD [address] [place] [address] PCP - Hospice Attending 12/17/24 Cristy Brantley, RN [address] [place] [address] Proof Technician (Ambulatory) REGISTERED NURSE 09/15/24
--- OUTSIDE RECORDS SUMMARY | 2024-12-23 12:55 | XMS_ITS | Encounter Summary ---
Author Organization [facility] Address [facility] [place] [address] Care Team Providers Care Tile Installer Name Role Phone Moses Conn MD Primary Care Provider [phone] Cristy Brantley RN Unavailable [phone] Moses Conn MD Unavailable [phone] Reason for Visit * Reason Comments Procedure (SCAN) Encounter Details Date Type Department Care Team ([facility] Contact Info) Description 12/09/2024 Scan HEALTH INFO SRVCS Scanned, [facility] Procedure (SCAN) Social History Tobacco Use Types Packs/Day Years [...] from your doctor or pharmacy? Often 08/14/2024 [facility] Utilities Answer Date Recorded In the past [address] [facility] [employer], oil, or [employer] threatened to shut off services in your [...] Recorded Patient Health Questionnaire-2 Score 0 12/16/2024 [facility] [place] [facility] Occupat ional Health - Occupational Stress [...] time in the past 12 m [facility], were you homeless or living in a fpc (including now)? No 08/14/2024 Sex and Gender Information Value Date Recorded Sex Assigned at Male 02/25/2019 9:28 AM CDT Legal Sex Male 10:23 PM CDT Gender Identity Male 02/25/2019 9:28 AM CDT Sexual Orientation Straight 02/25/2019 9: 28 AM CDT documented as of this encounter Functional Status * Are you deaf or do you have serious difficulty hearing Answer Date of Assessment Author Status No 08/14/2024 3:25 PM CDT Carol Valencia RN Active * Are you blind or do you have serious difficulty seeing, even when wearing glasses? Answer Date of Assessment Author Status No 08/14/2024 3:25 PM CDT Carol Valencia RN Active * Do you have serious difficulty walking or climbing stairs? Answer Date of Assessment Author Status Yes 08/14/2024 3:25 PM CDT Carol Valencia RN Active * Do you have difficulty dressing or bathing? Answer Date of Assessment Author Status Yes 08/14/2024 3:25 PM CDT Carol Valencia RN Active * Because of a physical, mental, or emotional condition, do you have difficulty doing errands alone such as visiting a doctor's office or shopping? Answer Date of Assessment Author Status No 08/14/2024 3:25 PM KATINAT Carol Valencia RN Active documented as of this encounter Mental Status * Because of a physical, mental, or emotional condition, do you have serious difficulty concentrating, remembering, or making decisions? Answer Entry Date Author Status No 08/14/2024 3:25 PM CDT Carol Valencia , RN Active documented in this encounter Plan of Treatment Upcoming Encounters Date Type Department Care Team (Late st Contact Info) Description 12/25/2024 9:00 AM DIETETIC TECH Home Care Visit [address] [address] Marshall Anguiano, AEROSPACE QUALITY ENGINEER [address] [place], [place] [address] 12/26/2024 10:45 AM DIETETIC TECH Home Care Visit [facility] [address] [address] Alma Gunderson, OT [address] [place], [place] [address] 12/26/2024 12:00 PM DIETETIC TECH Home Care Visit [address] [address] Jeanne Bey, OLAF 12/29/2024 10:00 AM DIETETIC TECH Home Care Visit [facility] Care [address] [address] Marshall Anguiano, AEROSPACE QUALITY ENGINEER [address] [place], [place] [address] 12/31/2024 9:00 AM DIETETIC TECH Home Care Visit [address] [address] Cindy Houser, PT [address] [place], [place] [address] 01/01/2025 11:20 AM DIETETIC TECH Office Visit [facility] Family & Internal Medicine [address] [address] Moses Conn MD [address] [place] [address] documented as of this encounter Goals Goal Patient Goal Type Associated Problems Recent Progress Patient-Stated? Author Health - patient able to perform ADLs independently Lifestyle On track(2024 12:07 PM DIETETIC TECH) Cristy Coronado RN Consistently take medications as Prescribed Lifestyle On track(2024 12:07 PM DIETETIC TECH) Cristy Coronado RN Establish Plan for Symptom Monitoring Lifestyle On track(2024 12:07 PM DIETETIC TECH) Cristy Coronado RN Note: Interventions for HTN include: 1) [...] Symptom Monitoring Lifestyle On track(2024 12:07 PM DIETETIC TECH) No Cristy Brantley RN Note: Hepatic encephalopathy goals: Patient and spouse will be aware of symptoms such as confusion, stomach distention to report. Patient and spouse will understand importance of lactulose. documented as of this encounter Procedures Procedure Name Priority Date/Time Associated Diagnosis Comments PROCEDURE GENERIC (SCAN ORDER) 12/09/2024 documented in this encounter Results * PROCEDURE GENERIC (SCAN ORDER) (12/09/2024) 12/09/2024 [facility] Scanned SCANNING Final Resu lt documented in this encounter Visit Diagnoses Not on filedocumented in this encounter Additional Health Concerns Assessment Noted Time PHQ-9 Depression Total Score: 2 09/19/20 21 9:31 AM DIETETIC TECH documented as of this encounter Care Teams Tile Installer Relationship Specialty Start Date End Date Moses Conn MD [address] [place] [address] PCP - General INTERNAL MEDICINE 11/29/18 Moses Conn MD [address] [place] [address] PCP - Hospice Attending 12/17/24 Cristy Brantley, RN [address] [place], [place] [phone] Cocoa Press Operator (Ambulatory) REGISTERED NURSE 09/15/24 documented as of this encounter
--- OUTSIDE RECORDS SUMMARY | 2024-12-23 12:55 | XMS_ITS | Encounter Summary ---
Author Organization [facility] Address [facility] [place] [address] Care Team Providers Care Label Operator Name Role Phone Moses Conn MD Primary Care Provider Cristy Brantley RN Unavailable [phone] Moses Conn MD Unavailable [phone] Encounter Details Date Type Department Care Team (Latest Contact Info) Description 12/08/2024 Scan MG HEALTH INFO SRVCS Scanned, [facility] Social History Tobacco Use Types Packs/Day Years [...] from your doctor or pharmacy? Often 08/14/2024 [facility] Utilities Answer Date Recorded In the past 12 months has th e electric, gas, oil, or water company threatened to shut off services in your [...] Recorded Patient Health Questionnaire-2 Score 0 12/16/2024 [facility] of Occupat ional [facility] - Occupational Stress Questionnaire Answer Date Recorded [...] were you homeless or living in a halfway (including now)? No 08/14/2024 Sex and Gender [...] 3:25 PM KATINAT Carol Valencia RN Active * Do you have serious difficulty walking or climbing stairs? Answer Date of Assessment Author Status Yes 08/14/2024 3:25 PM KATINAT Carol Valencia RN Active * Do you have difficulty dressing or bathing? Answer Date of Assessment Author Status Yes 08/14/2024 3:25 PM KATINAT Carol Valencia RN Active * Because of [...] Author Status No 08/14/2024 3:25 PM CDT Valencia, Carol K , RN Active documented in this encounter Plan of Treatment Upcoming Encounters Date Type Department Care Team (Late st Contact Info) Description 12/25/2024 9:00 AM SENIOR WINDOWS ADMINISTRATOR Home Care Visit [address] [address] Marshall Anguiano, APRICOT WASHER [address] [place], [place] [id number] 12/26/2024 10:45 AM SENIOR WINDOWS ADMINISTRATOR Home Care Visit [address] [address] Alma Gunderson, OT [address] [place], [place] [phone] 12/26/2024 12:00 PM SENIOR WINDOWS ADMINISTRATOR Home Care Visit [address] [address] Jeanne Bey, OLAF 12/29/2024 10:00 AM SENIOR WINDOWS ADMINISTRATOR Home Care Visit [address] [address] Marshall Anguiano, APRICOT WASHER [address] [place], [place] [address] 12/31/2024 9:00 AM SENIOR WINDOWS ADMINISTRATOR Home Care Visit [address] [address] Cindy Houser, PT [address] [place], [place] [address] 01/01/2025 11:20 AM SENIOR WINDOWS ADMINISTRATOR Office Visit [facility] Family & Internal Medicine [address] [address] Moses Conn MD [address] [place] [address] documented as of this encounter Goals Goal Patient Goal Type Associated Problems Recent Progress Patient-Stated? Author Health - patient able to perform ADLs independently Lifestyle On track(2024 12:07 PM SENIOR WINDOWS ADMINISTRATOR) Cristy Coronado RN Consistently take medications as Prescribed Lifestyle On track(2024 12:07 PM SENIOR WINDOWS ADMINISTRATOR) Cristy Coronado RN Establish Plan for Symptom Monitoring Lifestyle On track(2024 12:07 PM SENIOR WINDOWS ADMINISTRATOR) No Cristy Brantley RN Note: Interventions for [...] Symptom Monitoring Lifestyle On track(2024 12:07 PM SENIOR WINDOWS ADMINISTRATOR) No Cristy Brantley RN Note: Hepatic encephalopathy goals: Patient and spouse will be aware of symptoms such as confusion, stomach distention to report. Patient and spouse will understand importance of lactulose. documented as of this encounter Visit Diagnoses Not on filedocumented in this encounter Additional Health Concerns Assessment Noted Time PHQ-9 Depression Total Score: 2 09/19/20 21 9:31 AM SENIOR WINDOWS ADMINISTRATOR documented as of this encounter Care Teams Label Operator Relationship Specialty Start Date End Date Moses Conn MD [address] [place] [address] PCP - General INTERNAL MEDICINE 11/29/18 Moses Conn MD [address] [place] [address] PCP - Hospice Attending 12/17/24 Cristy Brantley RN [address] [place] [address] Insurance Claims Processor (Ambulatory) REGISTERED NURSE 11/11/24 documented as of this encounter
--- OUTSIDE RECORDS SUMMARY | 2024-12-23 12:55 | XMS_ITS ---
Author Organization [facility] Address [address] [place] [address] Care Team Providers Care Car Examiner Name Role Phone Moses Conn MD Primary Care Provider [phone] Anjelica Fish MD Unavailable [phone] Active Problems Problem Noted Date Diagnosed Date [...] monitoring Diabetes mellitus type 2 in nonobese (CMS/[facility]) 0 05/15/2021 Essential [...]
--- OUTSIDE RECORDS SUMMARY | 2024-12-23 12:55 | XMS_ITS | Encounter Summary ---
Author Organization [facility] Address [facility] [place] [address] Care Team Providers Care Security Guard Supervisor Name Role Phone Moses Conn MD Primary Care Provider [phone] Cristy Brantley RN Unavailable [phone] Moses Conn MD Unavailable [phone] Reason for Visit * Auth/Cert (Routine) Specialty Diagnoses / Procedures Referred By Duy t Referred To Contact Home Health Services Referral ID Status Reason Start Date Expiration Date Visits Re quested Visits Authorized [id number] 11 30 Encounter Details Date Type Department Care Team (Late st Contact Info) Description 12/23/2024 9:00 AM CLAY PLANT TREATER Home Care Visit [facility] Home Care [address] [place] [address] Natividad Amato, MADELAINE [address] [place], [place] [address] [facility] HOME VISIT Social History Tobacco Use Types [...] from your doctor or pharmacy? Often 08/14/2024 [facility] Utilities Answer Date Recorded In the past 12 months has th e [employer], [employer], oil, or water [employer] threatened to shut off services in your [...] Recorded Patient Health Questionnaire-2 Score 0 12/16/2024 [facility] [place] of Occupat ional Health - Occupational Stress [...] any time in the past 12 m [facility], were you homeless or living [...] Comments Blood Pressure 127/80 12/23/2024 9:34 AM CLAY PLANT TREATER Pulse 80 12/23/2024 9:34 AM CLAY PLANT TREATER Temperature 36.7 C (98 F) 12/23/2024 9:34 AM CLAY PLANT TREATER Respiratory Rate 18 12/23/2024 9:34 AM CLAY PLANT TREATER Oxygen Saturation - - Inhaled Oxygen Concentration - - Weight - [...] Angulo RN Active documented in this encounter Progress Notes * MADELAINE Zambrano - 12/23/2024 10:29 AM CSTPatient had a fall yesterday 12/22 around 4PM. Patient was walking in from garage and fell onto a occupational therapy teacher. Patient family was danisha to get him up. Patient reports no injury, esides soreness in the ack and right side. PLANT TREATER * MADELAINE Zambrano - 12/23/2024 10:29 AM CSTPatient has been seen on 3 occasions with 0 missed visits. Patient is compliant/non compliant with home program. Patient is progressing with current plan of care. Patient can now complete HEP, transfers, and ADLs Barriers to progress: continues to fall patient is ready for OT discharge. PLANT TREATER documented in this encounter Plan of Treatment Upcoming Encounters Date Type Department Care Team (Late st Contact Info) Description 12/25/2024 9:00 AM CLAY PLANT TREATER [place] [address] Marshall Anguiano, CALL CENTER TRAINER [address] [place] [address] 12/26/2024 10:45 AM CLAY PLANT TREATER Home Care Visit [address] [address] Alma Gunderson, OT [address] [place], [place] [phone] 12/26/2024 12:00 PM CLAY PLANT TREATER Home Care Visit [address] [id number] Jeanne Bey, RN 12/29/2024 10:00 AM CLAY PLANT TREATER Home Care Visit [address] [id number] Marshall Anguiano, CALL CENTER TRAINER [address] [place], [place] [id number] 12/31/2024 9:00 AM CLAY PLANT TREATER Home Care Visit [address] [phone] Cindy Houser, PT [address] [place], [place] [address] 01/01/2025 11:20 AM CLAY PLANT TREATER Office Visit [facility] Family & Internal Medicine - [address] [phone] Moses Conn MD [address] [place] [id number] documented as of this encounter Goals Goal Patient Goal Type Associated Problems Recent Progress Patient-Stated? Author Health - patient able to perform ADLs independently Lifestyle On track(2024 12:07 PM CLAY PLANT TREATER) No Cristy Brantley, RN Consistently take medications as Prescribed Lifestyle On track(2024 12:07 PM CLAY PLANT TREATER) No Cristy Brantley, RN Establish Plan for Symptom Monitoring Lifestyle On track(2024 12:07 PM CLAY PLANT TREATER) Cristy Coronado, RN Note: Interventions for HTN include: 1) [...] Symptom Monitoring Lifestyle On track(2024 12:07 PM CLAY PLANT TREATER) Cristy Coronado, RN Note: Hepatic encephalopathy goals: Patient and spouse will be aware of symptoms such as confusion, stomach distention to report. Patient and spouse will understand importance of lactulose. documented as of this encounter Visit Diagnoses Not on filedocumented in this encounter Additional Health Concerns Assessment Noted Time PHQ-9 Depression Total Score: 2 09/19/20 21 9:31 AM CLAY PLANT TREATER documented as of this encounter Home Health Visit - Care Plan Visit Details Visit Type -HDEZ - Home Visi t Discipline -Occupational Therapy Problems Problem Description Start Date Status Goals Interve ntions Decreased ADL/IADLs Disciplines: OT Decreased independence in self-care including dressing and bathing. 11/24/2024 Active 1 goal linked to scheduled/document ed intervention 1 goal intervention scheduled/document ed in this visit Home Exercise Program Disciplines: OT Requires instruction of home program for B UE HEP. 11/24/2024 Active 1 goal linked to scheduled/document ed intervention 1 problem intervention scheduled/document ed in this visit Collaboration of Care Disciplines: OT Collaboration for safe care. 11/24/2024 Active 3 goals linked to scheduled/document ed interventions 5 goal interventions scheduled/document ed in this visit Transfer Deficit Disciplines: OT - Decreased transfer ability requiring Renetta with shower transfer. - Requires caregiver instruction. 11/24/2024 Active 1 goal linked to scheduled/document ed intervention 1 goal intervention scheduled/document ed in this visit Goals Goal Associated Problem Outcome Goal Met? Visit Notes Patient improves with ADLs and/or IADLs Description: Patient to complete UB dressing independently after set-up of needed items with good safety awareness by 12/26/24. Patient to complete LB dressing with Mod I after set-up of needed items with good safety awareness by 12/26/24. Patient to complete bathing with supervision with good safety awareness by 12/26/24. Decreased ADL/IADLs Completed Yes mod I for dressing task. supervision for athing task while seated. OT Therapeutic Exercise Description: Patient to demonstrate good understanding in B UE HEP 12/19/24. Patient to tolerate 15 reps of B UE exercises for decreased endurance to complete dressing by 12/26/24. Home Exercise Program Completed Yes ind in HEP Patient verbalizes understanding of medication regimen Description: Patient will verbalize understanding of medication regimen by 12/26/24. Collaboration of Care Progressing No Patient safety met through collaboration for safe care. Description: Clinicians will communicate patient care and safety needs during episode of care through 12/26/24. Collaboration of Care Progressing No OT - Homebound Status Description: Patient meets requirements of homebound status as evidenced by decreased balance, endurance and safety to leave home without assistance from caregiver. Collaboration of Care Met This Shift No Patient improves transfer ability Description: Patient to demonstrate increased stanidng balance as evidenced by an increase in step 3 balance assessment to 7 by 12/26/24. Patient to complete shower transfer with Mod I and use of appropriate DME with proper transfer technqiues by 12/26/24. Transfer Deficit Met This Shift No mod I for shower transfer with DME Interventions Intervention Associated Problem/Goal Status Variance Visit Notes Decreased ADLs Description: - Instruct in self-care including bathing/dressing. - Instruct in use of adaptive equipment and environmental adaptations. - Activities of daily living mobility training without device. - Assess and make recommendations for increased safety. - Instruct in energy conservation and breathing techniques. - Patient education. Problem:Decreased ADL/IADLs Goal:Patient improves with ADLs and/or IADLs Completed Reviewed adaptive strategies and techniques for increased ind and safety in ADLs. Patient mod I for L dressing task while seated with good safety. Patient completing showering task while seated in shower with supervision. Therapeutic Exercise Description: -Instruct in B UE HEP. Problem:Home Exercise Program Completed Instructed patient in B UE HEP to increase strength and endurance for functional transfers and ADLs. Patient completed ther ex in shoulder flexion, horizontal abduction, chest press, ceiling punch, elbow flexion/extension, and shoulder shrugs. Patient completed 15 reps in all planes while seated. Patient tolerated well. Patient veralizes follow thorugh in HEP. Medication Reconciliation Description: Nursing to complete weekly medication bottle checks. Therapy to complete med reconciliation with any daily medication changes. OT to notify nurse of medication changes so that medication list may be updated. Problem:Collaboration of Care Goal:Patient verbalizes understanding of medication regimen Completed no medication changes, updated list in home Assess Vital Signs Description: OT, keycase assembler and/or physician to be contacted if pulse ox is consistently below 88%, temp greater than 100.5, systolic BP greater than 180 or less than 90 and diastolic BP greater than 90 or less than 50 and respirations less tahn 12 or greater than 24. Problem:Collaboration of Care Goal:Patient safety met through collaboration for safe care. Completed vitals WNL Plan Towards Discharge Description: Document patient progress towards discharge. Problem:Collaboration of Care Goal:Patient safety met through collaboration for safe care. Completed patient progressing well. d/c prep this date. Care Coordination Description: Clinician to review plan of care with patient/caregivers(s). Patient/Caregiver(s) agree(s) to plan of care and agrees to participate in care. Problem:Collaboration of Care Goal:Patient safety met through collaboration for safe care. Completed collaboration with care plan Plan for Next Visit Description: Next visit plan summation Problem:Collaboration of Care Goal:Patient safety met through collaboration for safe care. Completed Patient made aware of next scheduled visit on 12/26 for discharge with understanding verbalized. Calendar up to date. Transfer Deficit/Training Description: - Therapeutic Exercise. - Transfer Training Problem:Transfer Deficit Goal:Patient improves transfer ability Completed Reviewed safe transfer techniques and fall prevention measures. Patient demo increased alance with funcitonal tasks. Patient completed shower transfer mod I with good safety awareness. documented in this encounter Care Teams Security Guard Supervisor Relationship Specialty Start Date End Date Moses Conn MD [address] [place] [id number] PCP - General INTERNAL MEDICINE 11/29/18 Moses Conn MD [address] [place] [address] PCP - Hospice Attending 12/17/24 Cristy Brantley, RN [address] [place] [address] Double Cutter (Ambulatory) REGISTERED NURSE 09/15/24 documented as of this encounter
--- OUTSIDE RECORDS SUMMARY | 2024-12-23 12:55 | XMS_ITS | Encounter Summary ---
Author Organization [facility] Address [facility] [place] [address] Care Team Providers Care Solder Leveler [employer] Name Role Phone Moses Conn MD Primary Care Provider [phone] Cristy Brantley RN Unavailable [phone] Moses Conn MD Unavailable [phone] Encounter Details Date Type Department Care Team (Latest Contact Info) Description 12/10/2024 Scan [facility] SRVCS Scanned, Doc [...] from your doctor or pharmacy? Often 08/14/2024 [facility] Utilities Answer Date Recorded In the past [...] Recorded Patient Health Questionnaire-2 Score 0 12/16/2024 [facility] of Occupat ional [facility] - Occupational Stress Questionnaire Answer Date [...] any time in the past 12 m [facility], were you homeless or living [...] Contact Info) Description 12/25/2024 9:00 AM SENIOR PROCUREMENT SPECIALIST Home Care Visit [address] [address] Marshall Anguiano, STEERSMAN [address] [place], [place] [phone] 12/26/2024 10:45 AM SENIOR PROCUREMENT SPECIALIST Home Care Visit [address] [address] Alma Gunderson, OT [address] [place], [place] [id number] 12/26/2024 12:00 PM SENIOR PROCUREMENT SPECIALIST Home Care Visit [address] [address] Jeanne Bey, OLAF 12/29/2024 10:00 AM SENIOR PROCUREMENT SPECIALIST Home Care Visit [address] [address] Marshall Anguiano, STEERSMAN [address] [place], [place] [phone] 12/31/2024 9:00 AM SENIOR PROCUREMENT SPECIALIST Home Care Visit [address] [address] Cindy Houser, PT [address] [place], [place] [id number] 01/01/2025 11:20 AM SENIOR PROCUREMENT SPECIALIST Office Visit [facility] Family & Internal Medicine [address] [phone] Moses Conn MD [address] [place] [address] documented as of this encounter Goals Goal Patient Goal Type Associated Problems Recent Progress Patient-Stated? Author Health - patient able to perform ADLs independently Lifestyle On track(2024 12:07 PM SENIOR PROCUREMENT SPECIALIST) Cristy Coronado RN Consistently take medications as Prescribed Lifestyle On track(2024 12:07 PM SENIOR PROCUREMENT SPECIALIST) Cristy Coronado RN Establish Plan for Symptom Monitoring Lifestyle On track(2024 12:07 PM SENIOR PROCUREMENT SPECIALIST) No Cristy Brantley RN Note: Interventions for [...] Monitoring Lifestyle On track(2024 12:07 PM SENIOR PROCUREMENT SPECIALIST) No Cristy Brantley RN Note: Hepatic encephalopathy goals: Patient and spouse will be aware of symptoms such as confusion, stomach distention to report. Patient and spouse will understand importance of lactulose. documented as of this encounter Visit Diagnoses Not on filedocumented in this encounter Additional Health Concerns Assessment Noted Time PHQ-9 Depression Total Score: 2 09/19/20 21 9:31 AM SENIOR PROCUREMENT SPECIALIST documented as of this encounter Care Teams Solder Leveler [employer] Relationship Specialty Start Date End Date Moses Conn MD [address] [place] [id number] PCP - General INTERNAL MEDICINE 11/29/18 Moses Conn MD [address] [place] [id number] PCP - Hospice Attending 12/17/24 Cristy Brantley RN [address] [place] [address] Statistics Tutor (Ambulatory) REGISTERED NURSE 11/11/24 documented as of this encounter
--- OUTSIDE RECORDS SUMMARY | 2024-12-23 12:56 | XMS_ITS | Patient Health Summary ---
Author Organization [facility] Address [address] [place] [address] Care Team Providers Care Consumer Affairs Specialist Name Role Phone Moses Conn MD Primary Care Provider [phone] [facility],non-owned Affiliates and Associated Physician Practices is amultiple site organization consisting of ambulatory clinics and hospital sitesin [place], [place], [place] and [place]. This disclosure is being madepursuant to the Care Everywhere program and may not contain all information available regarding this patient. Last updated 18.[facility] Allergies * Cefditoren(Rash) -Medium Criticality * Tetracycline(Rash) [...] fluticasone propionate (Flonase) 50 MCG/ACT nasal spray Dawson 1 (one) spray into the nose once [...] and heating? Not hard at all 11/08/2024 [facility] - Occupational Stress [...] any time in the past 12 [facility], were you homeless or living in a fpc (including now)? No 11/08/2024 Sex and Gender Information Value Date Recorded Sex Assigned at Not on file Gender Identity Not on file Sexual Orientation Not on file Last Filed Vital Signs Vital Sign Reading Time Taken Comments Blood Pressure 135/61 12/08/2024 12:00 PM [employer] Pulse 75 12/08/2024 12:00 PM [employer] Temperature 36.5 C (97.7 F) 12/08/2024 12:00 PM [employer] Respiratory Rate 17 12/08/2024 12:00 PM [employer] Oxygen Saturation 98% 12/08/2024 12:00 PM [employer] Inhaled Oxygen Concentration - - Weight 48 kg (105 lb 12.8 oz) 12/05/2024 6:16 PM [employer] Height 163 cm (5' 4.17 ) 12/04/2024 8:31 PM [employer] Body Mass Index 18.06 12/04/2024 8:31 PM [employer] Procedures * GLUCOSE - POINT OF CARE(Performed [...] * CBC W AUTO DIFFERENTIAL(Performed 11/06/2024) * WI ESOPHAGUS MOTILITY STUDY(Performed 10/31/2024) Performed for Dysphagia, [...] Performed for Decompensated hepatic cirrhosis (HCC) * [id number] BLOOD(Performed 06/17/2024) Performed for Decompensated hepatic cirrhosis [...] - POINT OF CARE (12/08/2024 12:03 PM [employer]) Only the most recent of120 resultswithin the time period is included. [facility] Glucose WB/POC 246(H) 70 - 99 mg/dL 12/08/2024 12:03 PM [facility] Specimen Type Cap Fingerstick 2024 12:03 PM [facility] Blood BLOOD SPECIMEN / Unknown 12/08/2024 12:03 PM [employer] 12/08/2024 12:03 PM [employer] Darek Teran MD LAB - POINT OF CARE ORDERABLES [facility] [address] [place] [address], [place] [phone] * (ABNORMAL) CBC W AUTO DIFFERENTIAL (12/08/2024 5:06 AM [employer]) Only the most recent of29 resultswithin the time period is included. [facility] WBC 3.6(L) 4.0 - 10.7 x10E9/L 12/08/2024 [...] Unknown Venipuncture / Unknown 12/08/2024 5:06 AM [facility] 12/08/2024 5:20 AM [facility] Juancarlos Lujan MD LAB - HEMATOLOGY ORD ERABLES [facility] [address] [place] [address], [place] [phone] * (ABNORMAL) COMPREHENSIVE METABOLIC PANEL (12/08/2024 5:06 AM [facility]) Only the most recent of31 resultswithin the [...] Unknown Venipuncture / Unknown 12/08/2024 5:06 AM [employer] 12/08/2024 5:28 AM [employer] Juancarlos Lujan MD LAB - CHEMISTRY JOHN PAUL RIVAS Performing Organization Address City/[facility]/ZIP Co de Phone Number [address] [address], [place] [phone] * (ABNORMAL) PHOSPHORUS BLOOD (12/08/2024 5:06 AM [employer]) Only the most recent of24 resultswithin the time period is included. Phosphorus 1.9(L) 2.8 - 5.1 mg/dL 12/08/2024 5:56 AM [facility] Blood BLOOD SPECIMEN / Unknown Venipuncture / Unknown 12/08/2024 5:06 AM [employer] 12/08/2024 5:28 AM [employer] Juancarlos Lujan MD LAB - CHEMISTRY ORDUlysses RIVAS [address] [address], [place] [phone] * MAGNESIUM BLOOD (12/08/2024 5:06 AM [employer]) Only the most recent of30 resultswithin the time period is included. Magnesium 2.1 1.6 - 2.6 mg/dL 12/08/2024 5:56 AM [facility] Blood BLOOD SPECIMEN / Unknown Venipuncture / Unknown 12/08/2024 5:06 AM [employer] 12/08/2024 5:28 AM [employer] Narrative Authorizing Provider Result Vanna Lujan MD LAB - CHEMISTRY JOHN PAUL RIVAS Performing Organization Address City/[facility]/ZIP Co de Phone Number [facility] [address] [place] [address], [place] [phone] * IGF BINDING PROTEIN 1 (12/06/2024 5:39 AM [employer]) IGF Binding Protein-1 19 5 - 34 ng/mL 12/17/2024 3:04 AM [employer] ([facility]) Comment: The limit of detection of this assay is 5 ng/mL. A proportion of normal patients will have results less than 5 ng/mL. This test was developed and its analytical performance characteristics have been determined by [employer]. It has not been cleared or approved by FDA. This assay has been validated pursuant to the CLIA regulations and is used for clinical purposes. Performed by: [employer] [facility] [address] [place] [address] Catie Pope MD, PhD, JIMMY, Blood BLOOD SPECIMEN / Unknown Lab Venipuncture / Unknown 12/06/2024 5:39 AM [employer] 12/06/2024 5:58 AM [employer] Juancarlos Lujan MD LAB - CHEMISTRY JOHN PAUL RIVAS Performing Organization Address City/[facility]/ZIP Co de Phone Number [facility]) [address] * INSULIN LIKE GROWTH FACTOR 2 (12/06/2024 5:39 AM [employer]) INSULIN-LIKE GROWTH FACTOR (IGF-2) 156 ng/mL 12/09/2024 1:29 PM [employer] ([facility]) Comment: INTERPRETIVE INFORMATION: Insulin-Like Growth Factor 2 Prepubertal (0-11 years old): 127 to 473 ng/mL Postpubertal (12 years and older): 180 to 580 ng/mL This test was developed and its performance characteristics determined by [employer]. It has not been cleared or approved by the US Food and Drug Administration. This test was performed in a CLIA certified laboratory and is intended for clinical purposes. Performed By: [facility] [employer] [address] [place] [address] Front Worker: Armando Lowe MD, PhD CLIA Number: [id number] Blood BLOOD SPECIMEN / Unknown Lab Venipuncture / Unknown 12/06/2024 5:39 AM [employer] 12/06/2024 5:58 AM [employer] Juancarlos Lujan MD LAB - CHEMISTRY JOHN PAUL RIVAS Performing Organization Address City/[facility]/ZIP Co de Phone Number [facility] [employer] [facility]) [address] [place] [address] * INSULIN FREE + TOTAL (12/06/2024 5:39 AM [employer]) Only the most recent of2 resultswithin the time period is included. Pathologist [facility] Insulin Free 9 3 - 25 uIU/mL 12/10/2024 9:36 AM [employer] ([facility]) Insulin 11 3 - 25 uIU/mL 12/10/2024 9:36 AM [employer] ([facility]) Comment: INTERPRETIVE INFORMATION: Insulin, Free and Total This test reacts on a nearly equimolar basis with the analogs insulin aspart, insulin glargine, and insulin lispro. Insulin detemir exhibits approximately 50 percent cross-reactivity. Test reactivity with insulin glulisine is negligible (<3 percent). To convert to pmol/L, multiply uIU/mL by 6.0. Reference intervals established for fasting specimens. Performed By: [employer] [address] [place] [address] Front Worker: Armando Lowe MD, PhD CLIA Number: [id number] Blood BLOOD SPECIMEN / Unknown Lab Venipuncture / Unknown 12/06/2024 5:39 AM [employer] 12/06/2024 5:58 AM [employer] Juancarlos Lujan MD LAB - CHEMISTRY JOHN PAUL RIVAS Performing Organization Address City/[facility]/ZIP Co de Phone Number [employer] ([facility]) [address] [place] [address] * (ABNORMAL) C-PEPTIDE (12/06/2024 5:39 AM [employer]) Only the most recent of2 resultswithin the time period is included. [facility] C-Peptide 6.9(H) 0.5 - 3.3 ng/mL 12/08/2024 9:16 PM [employer] ([facility]) Comment: INTERPRETIVE INFORMATION: Serum, C-Peptide Reference Interval applies to fasting specimens. To convert to nmol/L, multiply by 0.33 Performed By: [employer] [address] [place] [address] Front Worker: Armando Lowe MD, PhD CLIA Number: [id number] Blood BLOOD SPECIMEN / Unknown Lab Venipuncture / Unknown 12/06/2024 5:39 AM [employer] 12/06/2024 5:58 AM [employer] Juancarlos Lujan MD LAB - CHEMISTRY ORDUlysses RIVAS Performing Organization Address [facility]/ZIP Co de Phone Number [facility]) [address] [place] [address] * (ABNORMAL) PROINSULIN (12/06/2024 5:39 AM [employer]) Only the most recent of2 resultswithin the time period is included. [facility] Proinsulin 10.1(H) <=7.2 pmol/L 12/10/2024 7:21 AM [employer] [facility] ([facility]) Comment: Performed By: [employer] [address] [place] [address] Front Worker: Armando Lowe MD, PhD CLIA Number: [id number] Blood BLOOD SPECIMEN / Unknown Lab Venipuncture / Unknown 12/06/2024 5:39 AM [employer] 12/06/2024 5:58 AM [employer] Juancarlos Lujan MD LAB - CHEMISTRY JOHN PAUL RIVAS Performing Organization Address [facility]/ZIP Co de Phone Number [facility]) [address] [place] [address] * HYDROXYBUTYRATE BETA (12/06/2024 5:39 AM [employer]) Only the most recent of3 resultswithin the time period is included. Beta-Hydroxybu tyrate <0.50 <0.50 mmol/L 12/06/2024 6:29 AM [employer] [facility] Blood BLOOD SPECIMEN / Unknown Lab Venipuncture / Unknown 12/06/2024 5:39 AM [employer] 12/06/2024 6:02 AM [employer] Juancarlos Lujan MD LAB - CHEMISTRY JOHN PAUL RIVAS Performing Organization Address [facility]/ZIP Co de Phone Number [address] [address], [place] [phone] * CORTISOL BLOOD AM (12/06/2024 5:39 AM [employer]) Cortisol AM 11.6 3.7 - 19.4 ug/dL 12/06/2024 6:47 AM [employer] [facility] Blood BLOOD SPECIMEN / Unknown Lab Venipuncture / Unknown 12/06/2024 5:39 AM [employer] 12/06/2024 6:02 AM [employer] Narrative [facility] - 12/06/2024 6:47 AM [employer] Normal cortisol levels are generally highest in the morning hours and lowest from late evening through the telegraphic typewriter mechanic 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 The PM measurements of cortisol run approximately one-half to one-third of the AM values. Juancarlos Lujan MD LAB - CHEMISTRY JOHN PAUL RIVAS Performing Organization Address [facility]/ZIP Co de Phone Number [address] [address], [place] [phone] * US Abdomen Limited (12/04/2024 11:40 AM [employer]) Anatomical Region Laterality Modality Abdomen Ultrasound 12/04/2024 11:4 9 AM [employer] Impressions 12/04/2024 1:29 PM [employer] IMPRESSION: 1. Hepatic cirrhosis with sequela of portal hypertension including moderate volume ascites. 2. No cholelithiasis. 3. Moderate to large volume ascites. > Interpreting Provider: Patsy Orellana MD on 12/04/2024 1:29 PM Narrative 12/04/2024 1:29 PM [employer] PROCEDURE: US ABDOMEN LIMITED DATE/TIME OF EXAM: 12/04/2024 11:40 AM CLINICAL INFORMATION: None relevant/not provided if blank. Indication: K74.60: Hepatic cirrhosis, unspecified hepatic cirrhosis type, unspecified whether ascites present (HCC) Additional History: COMPARISON: Ultrasound from 10/25/2024 TECHNIQUE: Real-time ultrasound of the upper abdomen with DICOM image capture performed by radiological technologist. FINDINGS: The liver is coarse in [...] abdomen with DICOM image capture performed by radiological technologist. FINDINGS: The liver is coarse in [...] * CARDIAC EKG ORDER (12/04/2024 11:29 AM [employer]) Only the most recent of2 resultswithin the time period is included. Narrative 12/04/2024 11:29 AM [employer] Ordered by an unspecified provider. Scanned Document CARDIAC SERVICES ORD ERABLES * UREA NITROGEN URINE RANDOM (12/04/2024 9:39 AM [employer]) Only the most recent of2 resultswithin the time period is included. Urea Nitrogen Random Urine 361 Not Established mg/dL 12/04/2024 11:02 AM [employer] [facility] Urine URINE SPECIMEN OBTAINED BY CLEAN CATCH PROCEDURE / Unknown Collection / Unknown 12/04/2024 9:39 AM [employer] 12/04/2024 10:13 AM [employer] Juancarlos Lujan MD LAB - URINE CHEMISTR Y ORDERABLES [address] [address], [place] [phone] * FOLATE (12/04/2024 9:38 AM [employer]) Only the most recent of2 resultswithin the time period is included. Folate 10.1 7.0 - 31.4 ng/mL 12/04/2024 11:27 AM [employer] [facility] Blood BLOOD SPECIMEN / Unknown Venipuncture / Unknown 12/04/2024 9:38 AM [employer] 12/04/2024 10:14 AM [employer] Juancarlos Lujan MD LAB - CHEMISTRY ORDE RABLES [address] [address], [place] [phone] * (ABNORMAL) VITAMIN B12 (12/04/2024 9:38 AM [employer]) Only the most recent of2 resultswithin the time period is included. Vitamin B12 1,880(H) 213 - 816 pg/mL 12/04/2024 11:27 AM [facility] Blood BLOOD SPECIMEN / Unknown Venipuncture / Unknown 12/04/2024 9:38 AM [employer] 12/04/2024 10:14 AM [employer] Juancarlos Lujan MD LAB - CHEMISTRY JOHN PAUL RIVAS [address] [address], [place] [phone] * (ABNORMAL) IRON + TRANSFERRIN PANEL (12/04/2024 9:38 AM [employer]) Iron 64 50 - 175 ug/dL 12/04/2024 [...] Unknown Venipuncture / Unknown 12/04/2024 9:38 AM [employer] 12/04/2024 10:15 AM [employer] Juancarlos Lujan MD LAB - CHEMISTRY JOHN PAUL RIVAS Performing Organization Address City/[facility]/ZIP Co de Phone Number [address] [address], [place] [phone] * (ABNORMAL) FERRITIN (12/04/2024 9:38 AM [employer]) Ferritin 339(H) 22 - 275 ng/mL 12/04/2024 11:05 AM [facility] Blood BLOOD SPECIMEN / Unknown Venipuncture / Unknown 12/04/2024 9:38 AM [employer] 12/04/2024 10:15 AM [employer] Juancarlos Lujan MD LAB - CHEMISTRY JOHN PAUL RIVAS [address] [address], [place] [phone] * (ABNORMAL) URINALYSIS REFLEX MICROSCOPIC REFLEX CULTURE (12/04/2024 12:17 AM [employer]) Only the most recent of3 resultswithin the time period is included. Color UA Yellow Straw, Yellow 12/04/2024 12:33 AM [facility] Clarity UA Clear Clear 12/04/2024 12:33 AM [facility] Specific [place] UA 1.010 1.005 - 1.030 12/04/2024 12:33 [...] Unknown Collection / Unknown 12/04/2024 12:17 AM [employer] 12/04/2024 12:22 AM [employer] Narrative [facility] - 12/04/2024 12:33 AM [employer] Sarika Martin PA-C LAB - URINALY SIS ORDERABLES Performing Organization Address City/[facility]/ZIP Co de Phone Number [address] [address], [place] [phone] * LYTES (NA K CL) URINE RANDOM PANEL (12/04/2024 12:17 AM [employer]) Only the most recent of2 resultswithin the [...] Unknown Collection / Unknown 12/04/2024 12:17 AM [employer] 12/04/2024 12:22 AM [employer] Juancarlos Lujan MD LAB - URINE CHEMISTR Y ORDERABLES [address] [address], [place] [phone] * CREATININE URINE RANDOM (12/04/2024 12:17 AM [employer]) Only the most recent of2 resultswithin the time period is included. Creatinine Urine 55.70 Not Established mg/dL 12/04/2024 12:47 AM [facility] Urine URINE SPECIMEN OBTAINED BY CLEAN CATCH PROCEDURE / Unknown Collection / Unknown 12/04/2024 12:17 AM [employer] 12/04/2024 12:22 AM [employer] Juancarlos Lujan MD LAB - URINE CHEMISTR Y ORDERABLES [address] [address], [place] [phone] * CULTURE BLOOD (12/03/2024 6:17 PM [employer]) Only the most recent of8 resultswithin the time period is included. Culture No growth day 5 ADOLPH 12/08/2024 11:01 PM [employer] [facility] MICROBIOLOGY Blood PERIPHERAL BLOOD / Unknown Lab Venipuncture / Unknown 12/03/2024 6:17 PM [employer] 12/03/2024 6:39 PM [employer] Homer Moran MD LAB - MICROBIO LOGY ORDERABLES [facility] [address] [place], [place] [address], [place] [phone] * CT Head Wo Contrast (12/03/2024 4:56 PM [employer]) Only the most recent of4 resultswithin the time period is included. Anatomical Region Laterality Modality Head Computed Tomogra phy 12/03/2024 5:00 PM [employer] Impressions 12/03/2024 5:01 PM [employer] IMPRESSION: 1. No acute intracranial process. > Interpreting Provider: Abraham Mahajan MD on 12/03/2024 5:01 PM Narrative 12/03/2024 5:01 PM [employer] PROCEDURE: CT HEAD WO CONTRAST DATE/TIME OF [...] extra-axial fluid collections are identified. There is oqcp-pt-rfgdtsuk cerebral volume loss with associated ex vacuo [...] or extra-axial fluid collections are identified. Thereis uzfm-wz-wglukeuq cerebral volume loss with associated ex vacuoventricular [...] HIGH SENSITIVE REFLEX 1HOUR (12/03/2024 3:26 PM [employer]) Only the most recent of3 resultswithin the time period is included. Troponin I High Sensitive 11 <=35 ng/L 12/03/2024 4:33 PM [facility] Delta Troponin I HS 12/03/2024 4:33 PM [facility] Comment:Delta value intentio santy not calculated. Baseline to 1 hour specimen collection interval exceeded. Blood BLOOD SPECIMEN / Unknown Venipuncture / Unknown 12/03/2024 3:26 PM [employer] 12/03/2024 3:56 PM [employer] Sarika Martin PA-C LAB - CONTROL CHEMIST RY ORDERABLES Performing Organization Address City/[facility]/ZIP Co de Phone Number [facility] [address] [place] [address], [place] [phone] * SARS-COV-2 (COVID-19) FLU A/B RSV PCR RAPID (12/03/2024 12:36 PM [employer]) COVID-19 PCR Not detected Not detected 12/03/19 1:56 PM [employer] [facility] Influenza A PCR Not detected Not detected 12/03/2024 1:56 PM [employer] [facility] Influenza B PCR Not detected Not detected 12/03/2024 1:56 PM [employer] [facility] RSV PCR Not detected Not detected 12/03/2024 1:56 PM [employer] [facility] Microbiology SPECIMEN FROM NASOPHARYNGEAL STRUCTURE / Unknown Collection / Unknown 12/03/2024 12:36 PM [employer] 12/03/2024 12:40 PM [employer] Narrative [facility] - 12/03/2024 1:56 PM [employer] This nucleic acid amplification assay has been [...] - MICROBI OLOGY ORDERABLES Performing Organization Address [facility] Co de Phone Number [address] [address], [place] [phone] * PTT [facility] (12/03/2024 12:35 PM [employer]ER) Only the most recent of4 resultswithin the time period is included. APTT 26.4 23.0 - 38.4 Seconds 12/03/2024 1:06 PM [facility] Comment:Suggested therapeuti c range for full dose I.V. unfractionated heparin therapy for venous thromboembolism is 71 to 109 seconds. Blood BLOOD SPECIMEN / Unknown Venipuncture / Unknown 12/03/2024 12:35 PM [employer] 12/03/2024 12:43 PM [employer] Sarika Citlaly Wintegra PA-C LAB - COAGULA TION ORDERABLES [facility] [address] [place] [address], [place] [phone] * PT-INR [facility] (12/03/2024 12:35 PM [employer]ER) Only the most recent of16 resultswithin the time period is included. Pathologist [facility] PT 14.7 12.1 - 14.8 Seconds 12/03/2024 1:06 PM [facility] INR 1.2 See Comment 12/03/2024 1:06 PM [employer] [facility] Comment:The suggested therap eutic range for standard coumadin (warfarin) therapy is an INR of 2.0-3.0. For high-risk patients (Mechanical Mitral Valve Prosthesis, etc.), the suggested prophylactic therapeutic range is an INR of 2.5-3.5. Blood BLOOD SPECIMEN / Unknown Venipuncture / Unknown 12/03/2024 12:35 PM [employer] 12/03/2024 12:43 PM [employer] Sarika Citlaly Wintegra PA-C LAB - COAGULA TION ORDERABLES [facility] [address] [place] [address], [place] [phone] * TROPONIN-I HIGH SENSITIVE BASELINE + 1HR (12/03/2024 12:35 PM [employer]) Only the most recent of3 resultswithin the time period is included. Pathologist [facility] Troponin I High Sensitive 11 <=35 ng/L 12/03/2024 1:15 PM [employer] [facility] Blood BLOOD SPECIMEN / Unknown Venipuncture / Unknown 12/03/2024 12:35 PM [employer] 12/03/2024 12:42 PM [employer]ER Sarika PERALTAC LAB - CONTROL CHEMIST RY ORDERABLES Performing Organization Address City/[facility]/ZIP Co de Phone Number [address] [address], [place] [phone] * AMMONIA (12/03/2024 12:35 PM THERM[employer]ER) Only the most recent of6 resultswithin the time period is included. [facility] Ammonia 51 <=72 umol/L 12/03/2024 12:55 PM [employer] [facility] Blood BLOOD SPECIMEN / Unknown Venipuncture / Unknown 12/03/2024 12:35 PM [employer]ER 12/03/2024 12:55 PM [employer]ADER Sarika Citlaly PER[employer]AC LAB - CONTROL CHEMIST RY ORDERABLES Performing Organization Address [facility] Co de Phone Number [address] [address], [place] [phone] * EKG 12-LEAD (12/03/2024 12:21 PM THERM[employer] BOM[employer]ER) Only the most recent of3 resultswithin the time period is included. [facility] Ventricular Rate 66 BPM [facility] Atrial Rate 66 BPM [facility] P-R Interval 110 ms [facility] QRS Duration ms 86 ms [facility] Q-T Interval ms 378 ms [facility] QTC Calculation (Bezet) 396 ms [facility] Calculated P [place] 15 degrees [facility] Calculated T [place] 85 degrees [facility] Interpretation EKG SINUS RHYTHM POSSIBLE INFERIOR INFARCT , AGE UNDETERMINED ANTERIOR INFARCT (CITED ON OR BEFORE 30-AUG-2024) ABNORMAL ECG WHEN COMPARED WITH ECG OF 06-NOV-2024 15:17, BORDERLINE CRITERIA FOR INFERIOR INFARCT ARE NOW PRESENT Confirmed by JESUS MESA, NESTOR ([id number]) on 12/13/2024 11:34:09 AM [facility] MUSE 12/03/2024 12:2 1 PM [employer] 12/13/2024 11:34 AM [employer] Sarika Boucher Mario PA-C ECG ORDERABLE S [facility] ANDREA * XR CHEST 2VW (12/03/2024 11:24 AM THERM[employer]ER) Anatomical Region Laterality Modality Chest Digital Radiogra phy 12/03/2024 11:4 7 AM [employer]ER Narrative 12/03/2024 11:53 AM [employer]ER PROCEDURE: XR CHEST 2VW, DATE/TIME OF EXAM: 12/03/2024 11:33 AM, LOCATION [facility] INDICATION: R41.82: Altered mental status, unspecified altered [...] report was drafted by Yaw Alvarez MD (president and cmo) 12/03/2024 11:47 AM. ICandice MD have personally reviewed and interpreted this examination/study. > Interpreting Provider: Candice Gordon MD on 12/03/2024 11:53 AM Procedure Note Candice Gordon MD - 12/03/2024 PROCEDURE: XR CHEST 2VW, DATE/TIME OF EXAM: 12/03/2024 11:33 AM, LOCATION [facility] INDICATION: R41.82: Altered mental status, unspecified altered [...] report was drafted by Yaw Alvarez MD (president and cmo) 12/03/2024 11:47 AM. ICandice MD have personally reviewed and interpreted this examination/study. > Interpreting Provider: Candice Gordon MD on 12/03/2024 11:53 AM Sarika Martin PA-C DIAGNOSTIC IM AGING ORDERABLES * SYPHILIS ANTIBODY CASCADING REFLEX (11/07/2024 4:27 AM THERMITE BOMB LOADER) Treponema pallidum Antibody Non-react pepe Non-react pepe 11/07/2024 5:23 AM THERMITE BOMB LOADER [facility] Comment: No Laboratory evidence of syphilis infection. Note: Circulating antibodies may be low or undetectable in early infection. If recent exposure is suspected, re-draw sample in 2-4 weeks and repeat testing. Blood BLOOD SPECIMEN / Unknown Venipuncture / Unknown 11/07/2024 4:27 AM [employer]ADER 11/07/2024 4:37 AM THERMITE BOMB LOADER Juancarlos Lujan MD LAB - SEROLOGY ORDER DENISE [facility] [address] [place] [address], [place] [phone] * HIV-1 HIV-2 ANTIBODY + HIV P24 AG PANEL (11/07/2024 4:27 AM THERMITE BOMB LOADER) Pathologist [facility] HIV Antigen/Antibod y 1 & 2 Non-reacti ve Non-react pepe 11/07/2024 5:23 AM THERMITE BOMB LOADER [facility] Comment:No Laboratory eviden ce of HIV infection. Blood BLOOD SPECIMEN / Unknown Venipuncture / Unknown 11/07/2024 4:27 AM THERM[employer] BOMB LOADER 11/07/2024 4:37 AM THERMITE BOMB LOADER Juancarlos Lujan MD LAB - CHEMISTRY JOHN PAUL RIVAS Performing Organization Address City/[facility]/ZIP Co de Phone Number [address] [address], [place] [phone] * TSH REFLEX FREE T4 (11/07/2024 4:27 AM THERMITE BOMB LOADER) [facility] TSH 0.697 0.350 - 4.940 uIU/mL 11/07/2024 5:41 AM THERMITE BOMB LOADER [facility] Blood BLOOD SPECIMEN / Unknown Venipuncture / Unknown 11/07/2024 4:27 AM THERMITE BOMB LOADER 11/07/2024 4:39 AM THERM[employer] BOMB LOADER Juancarlos Lujan MD LAB - CHEMISTRY JOHN PAUL RIVAS Performing Organization Address City/[facility]/ZIP Co de Phone Number [address] [address], [place] [phone] * VITAMIN B1 (11/07/2024 4:27 AM THERMITE BOMB LOADER) [facility] Vitamin B1 Whole Blood 96 70 - 180 nmol/L 11/09/2024 12:56 PM THERMITE BOMB LOADER [facility] ([facility]) Comment: INTERPRETIVE INFORMATION: Vitamin B1, Whole Blood This assay measures the concentration of thiamine diphosphate (TDP), the primary active form of vitamin B1. Approximately 90 percent of vitamin B1 present in whole blood is TDP. Thiamine and thiamine monophosphate, which comprise the remaining 10 percent, are not measured. This test was developed and its performance characteristics determined by [facility] [employer]. It has not been cleared or approved by the US Food and Drug Administration. This test was performed in a CLIA certified laboratory and is intended for clinical purposes. Performed By: [facility] [address] [place] [address] Front Worker: Armando Lowe MD, PhD CLIA Number: [id number] Blood BLOOD SPECIMEN / Unknown Venipuncture / Unknown 11/07/2024 4:27 AM THERMITE BOMB LOADER 11/07/2024 4:37 AM THERMITE BOMB LOADER Juancarlos Lujan MD LAB - CHEMISTRY JOHN PAUL RIVAS [facility] ([facility]) [address] [place] [address], [place] * (ABNORMAL) URINALYSIS W/MICROSCOPIC REFLEX TO CULTURE (11/06/2024 11:44 PM THERMITE BOMB LOADER) Only the most recent of2 resultswithin the time period is included. Color UA Yellow Straw, Yellow 11/07/2024 12:16 AM [facility] Clarity UA Clear Clear 11/07/2024 12:16 AM [facility] Specific [place] UA 1.011 1.005 - 1.030 11/07/2024 12:16 [...] Unknown Collection / Unknown 11/06/2024 11:44 PM THERMITE BOMB LOADER 11/07/2024 12:04 AM [facility] - 11/07/2024 12:16 AM [facility] Culture Not Indicated [place] Lydia Quintero M[employer] CAN[employer] LAB - URINALY SIS ORDERABLES Performing Organization Address [facility] Co de Phone Number [address] [address] [phone] * URINE DRUG SCREEN IMMUNOASSAY (11/06/2024 11:43 PM THERMITE BOMB LOADER) Pathologist [facility] Amphetamines Screen Urine Negative Negative: < [...] Unknown Collection / Unknown 11/06/2024 11:43 PM THERMITE BOMB LOADER 11/07/2024 12:04 AM THERMITE BOMB LOADER [facility] - 11/07/2024 12:43 AM THERMITE BOMB LOADER The Urine Toxicology Screening Panel does not screen for Propoxyphene, Meprobamate, Carisoprodol, Trazodone, ymzw-xrn-opwhotj medications and/or volatiles (Acetone, Isopropanol, Methanol or Ethylene Glycol). Ethanol, Salicylate, Acetaminophen, Tricyclic Antidepressants and several therapeutic drugs may be individually assayed in serum or plasma specimen. Toxicology testing by the [facility] is an aid to medical diagnosis and treatment of patients. No documented chain of custody was maintained. Results are intended to be used for clinical purposes only. Juancarlos Lujan MD LAB - URINE CHEMISTR Y ORDERABLES Performing Organization Address [facility]/ZIP Co de Phone Number [address] [address], [place] [phone] * PROTEIN BODY FLUID (11/06/2024 8:27 PM THERMITE BOMB LOADER) Protein Fluid 1.2 Not Established For Fluids g/dL 11/06/2024 9:22 PM [facility] Fluid Type Peritoneal Fluid 11/06/2024 9:22 PM [facility] Fluid PERITONEAL FLUID / Unknown Collection / Unknown 11/06/2024 8:27 PM THERM[employer] BOMB LOADER 11/06/2024 8:32 PM THERMITE BOMB LOADER [facility] - 11/06/2024 9:22 PM THERMITE BOMB LOADER The analytical performance of this test has been independently validated by the laboratory. A reference range has not been established for this fluid. Comparison of this result with the concentration in blood, serum or plasma is recommended. Homer Hallman MD LAB - BODY FLUID ORD ERABLES Performing Organization Address [facility] Co de Phone Number [address] [address], [place] [phone] * GLUCOSE BODY FLUID (11/06/2024 8:27 PM THERMITE BOMB LOADER) Glucose Fluid 126 Not Established For Fluids mg/dL 11/06/2024 9:55 PM [facility] Fluid Type Peritoneal Fluid 11/06/2024 9:55 PM [facility] Fluid PERITONEAL FLUID / Unknown Collection / Unknown 11/06/2024 8:27 PM TH[employer] BOMB LOADER 11/06/2024 8:32 PM THERMITE BOMB LOADER [facility] - 11/06/2024 9:55 PM THERMITE BOMB LOADER The analytical performance of this test has been independently validated by the laboratory. A reference range has not been established for this fluid. Comparison of this result with the concentration in blood, serum or plasma is recommended. Homer Hallman MD LAB - BODY FLUID ORD ERABLES [facility] [address] [place] [address], [place] [phone] * DIFFERENTIAL MANUAL FLUID (11/06/2024 8:27 PM THERMITE BOMB LOADER) Only the most recent of2 resultswithin the [...] Unknown Collection / Unknown 11/06/2024 8:27 PM THERMITE BOMB LOADER 11/06/2024 8:32 PM [facility] - 11/06/2024 10:05 PM THERMITE BOMB LOADER No reference ranges established for body fluid differential cell counts. The test results must be integrated into the clinical context for interpretation. Homer Hallman MD LAB - BODY FLUID ORD ERABLES Performing Organization Address [facility] Co de Phone Number [address] [address], [place] [phone] * CELL COUNT W DIFFERENTIAL FLUID (11/06/2024 8:27 PM THERMITE BOMB LOADER) Only the most recent of2 resultswithin the [...] Unknown Collection / Unknown 11/06/2024 8:27 PM THERMITE BOMB LOADER 11/06/2024 8:32 PM THERMITE BOMB LOADER [facility] - 11/06/2024 10:05 PM THERMITE BOMB LOADER No reference ranges established for body fluid cell counts. Any reference ranges provided are derived from published literature. The test results must be integrated into the clinical context for interpretation. Homer Hallman MD LAB - BODY FLUID ORD ERABLES Performing Organization Address [facility] Co de Phone Number [address] [address], [place] [phone] * (ABNORMAL) CULTURE FLUID+GRAM STAIN (11/06/2024 8:15 PM THERMITE BOMB LOADER) Only the most recent of2 resultswithin the time period is included. Culture Light Achromobacter species(AA) ADOLPH 11/10/2024 4:24 AM [facility] Comment:Isolate is multi tammy g resistant organism (MDRO). Gram Stain Light Red blood cells 11/10/2024 4:24 AM THERMITE BOMB LOADER [facility] Gram Stain Rare Polymorphonuclear cells 11/10/2024 4:24 AM [facility] Gram Stain No organisms seen 025 4:24 AM THERMITE BOMB LOADER [facility] Other PERITONEAL FLUID / Unknown Collection / Unknown 11/06/2024 8:15 PM THERMITE BOMB LOADER 11/06/2024 8:32 PM THERMITE BOMB LOADER Narrative [facility] - 11/10/2024 4:24 AM THERMITE BOMB LOADER This isolate is a multidrug resistant organism [...] Homer Hallman MD LAB - MICROBIOLOGY O RDISLETONBLES [facility] [address] [place], [address] [phone] * Paracentesis (11/06/2024 6:28 PM THERMITE BOMB LOADER) Narrative Homer Hallman MD - 11/06/2024 6:28 PM THERMITE BOMB LOADER Homer Hallman MD 11/06/2024 8:11 PM Paracentesis [...] (COVID-19)+INFLU A+B PCR RAPID (11/06/2024 3:40 PM THERMITE BOMB LOADER) COVID-19 PCR Not detected Not detected 11/06/19 5:10 PM THERMITE BOMB LOADER [facility] Influenza A Rapid JOHNNIE Not Detected Not Detected 11/06/2024 5:10 PM THERMITE BOMB LOADER [facility] Influenza B JOHNNIE Rapid Not Detected Not Detected 11/06/2024 5:10 PM THERMITE BOMB LOADER [facility] Microbiology SPECIMEN FROM NASOPHARYNGEAL STRUCTURE / Unknown Collection / Unknown 11/06/2024 3:40 PM THERMITE BOMB LOADER 11/06/2024 4:29 PM THERMITE BOMB LOADER Narrative [facility] - 11/06/2024 5:10 PM THERMITE BOMB LOADER Influenza assay performed by [employer]. [...] acid amplification assay performance was validated by [facility]. This test has been authorized by [...] Hallman MD LAB - MICROBIOLOGY O RDERABLES [facility] [place] [address], [place] [phone] * XR Chest 1Vw Portable (11/06/2024 2:29 PM THERMITE BOMB LOADER) Only the most recent of4 resultswithin the time period is included. Anatomical Region Laterality Modality Chest Digital Radiogra phy 11/06/2024 2:35 PM THERMITE BOMB LOADER Narrative 11/06/2024 2:46 PM THERMITE BOMB LOADER PROCEDURE: XR CHEST 1VW PORTABLE, DATE/TIME OF EXAM: 11/06/2024 2:30 PM, LOCATION [facility] INDICATION: G93.40: Encephalopathy, unspecified type ADDITIONAL CLINICAL [...] pneumothorax. Report dictated by Jonathan Torres MD, (Hr Consultant). I, Christophe Rahman MD have personally reviewed and interpreted this examination/study. > Interpreting Provider: Christophe Rahman MD on 11/06/2024 2:46 PM Procedure Note Christophe Rahman MD - 11/06/2024 PROCEDURE: XR CHEST 1VW PORTABLE, DATE/TIME OF EXAM: 11/06/2024 2:30 PM, LOCATION [facility] INDICATION: G93.40: Encephalopathy, unspecified type ADDITIONAL CLINICAL [...] pneumothorax. Report dictated by Jonathan Torres MD, (Hr Consultant). I, Christophe Rahman MD have personally reviewed and interpreted this examination/study. > Interpreting Provider: Christophe Rahman MD on 11/06/2024 2:46 PM Homer Hallman MD DIAGNOSTIC IMAGING O RDERABLES * LIPASE BLOOD (11/06/2024 12:54 PM THERMITE BOMB LOADER) Only the most recent of2 resultswithin the time period is included. [facility] Lipase 16 8 - 78 U/L 11/06/2024 1:37 PM [facility] Blood BLOOD SPECIMEN / Unknown Venipuncture / Unknown 11/06/2024 12:54 PM THERMITE BOMB LOADER 11/06/2024 1:07 PM THERMITE BOMB LOADER Narrative [facility] - 11/06/2024 1:37 PM THERMITE BOMB LOADER Lipase results from the [employer] Al[employer] analyzer may not be comparable with other methodologies. Paris Quintero APRN-[employer] LAB - CONTROL CHEMIST RY ORDERABLES [address] [address], [place] [phone] * (ABNORMAL) CBC W/O DIFFERENTIAL (10/28/2024 6:14 AM THERMITE BOMB LOADER) Only the most recent of5 resultswithin the time period is included. Pathologist [facility] WBC 3.0(L) 4.0 - 10.7 x10E9/L 10/28/2024 [...] Lab Venipuncture / Unknown 10/28/2024 6:14 AM THERMITE BOMB LOADER 10/28/2024 6:39 AM THERMITE BOMB LOADER Rigoberto Mcclain MD LAB - HEMATOLOGY ORD ERABLES Performing Organization Address [facility] Co de Phone Number [address] [address] [phone] * (ABNORMAL) VITAMIN D 1,25 DIHYDROXY (10/26/2024 4:00 AM THERMITE BOMB LOADER) Pathologist [facility] Vitamin D, 1,25 Dihydroxy 18.8(L) 19.9 - 79.3 pg/mL 10/29/2024 12:19 AM THERMITE BOMB LOADER [facility] ([facility]) Comment: INTERPRETIVE INFORMATION: Vitamin D, 1,25-Dihydroxy This test is primarily indicated during patient evaluation for hypercalcemia and renal failure. A normal result does not rule out Vitamin D deficiency. The recommended test for diagnosing Vitamin D deficiency is Vitamin D 25-hydroxy. Performed By: [facility] [employer] [address] [place] [address] Front Worker: Armando Lowe MD, PhD CLIA Number: [id number] Blood BLOOD SPECIMEN / Unknown Venipuncture / Unknown 10/26/2024 4:00 AM THERMITE BOMB LOADER 10/26/2024 4:10 AM THERMITE BOMB LOADER Shravan Jessica MD LAB - CHEMISTRY OR DERABLES [facility] ([facility]) [address] [place] [address], [place] * SODIUM URINE RANDOM (10/25/2024 10:40 AM THERMITE BOMB LOADER) Sodium Urine 30 Not Established mmol/L 10/25/2024 11:05 AM THERMITE BOMB LOADER [facility] Urine URINE SPECIMEN OBTAINED BY CLEAN CATCH PROCEDURE / Unknown Collection / Unknown 10/25/2024 10:40 AM THERMITE BOMB LOADER 10/25/2024 10:47 AM THERMITE BOMB LOADER Shravan Jessica MD LAB - URINE CHEMIS TRY ORDERABLES [place] [id number] [place] [address], [place] [phone] * US Abdomen Ltd W Comp Doppler (10/25/2024 8:20 AM THERMITE BOMB LOADER) Anatomical Region Laterality Modality Abdomen Ultrasound 10/25/2024 12:3 6 PM THERMITE BOMB LOADER Impressions 10/27/2024 1:43 AM THERMITE BOMB LOADER IMPRESSION: 1.Hepatic cirrhosis with sequela of portal hypertension including moderate to large volume ascites. 2.Mildly decreased velocity of flow within the main portal vein (13.9 cm/s). No portal vein thrombosis. Otherwise, normal hepatic Doppler evaluation. 3.No evidence of cholelithiasis or acute cholecystitis. > Dictated by Tom Barreto DO,(medical transcription radiology). I, Lalo St MD have personally reviewed and interpreted this examination/study. > Interpreting Provider: Lalo St MD on 10/27/2024 1:43 AM Narrative 10/27/2024 1:43 AM THERMITE BOMB LOADER PROCEDURE: US ABDOMEN LTD W COMP DOPPLER, DATE/TIME OF EXAM: 10/25/2024 8:54 AM, LOCATION [facility] INDICATION: K76.82: Hepatic encephalopathy (HCC) Ordering Provider [...] DOPPLER, DATE/TIME OF EXAM:10/25/2024 8:54 AM, LOCATION [facility] INDICATION: K76.82: Hepatic encephalopathy (HCC) Ordering Provider [...] acute cholecystitis. > Dictated by Tom Barreto DO,(medical transcription radiology). I, Lalo St MD have personally reviewed and interpreted this examination/study. > Interpreting Provider: Lalo St MD on 10/27/2024 1:43 AM Rigoberto Mcclain MD ORDERABLES * PTH INTACT W/O CALCIUM (10/25/2024 4:54 AM THERMITE BOMB LOADER) PTH Intact 13.2 8.0 - 77.0 pg/mL 10/25/2024 6:19 AM THERMITE BOMB LOADER [facility] Blood BLOOD SPECIMEN / Unknown Lab Venipuncture / Unknown 10/25/2024 4:54 AM THERM[employer] B[employer] LOADER 10/25/2024 5:46 AM THERMITE BOMB LOADER Rigoberto Mcclain MD LAB - [facility]MISTRY [facility] Organization Address City/State/ZIP Co de Phone Number [address] [address], [place] [phone] * (ABNORMAL) PTH RELATED PEPTIDE (10/25/2024 4:54 AM THERMITE BOMB LOADER) PTH Related Peptide 3.1(H) 0.0 - 2.3 pmol/L 11/03/2024 1:05 PM THERMITE BOMB LOADER [facility] ([facility]) Comment: INTERPRETIVE INFORMATION: Parathyroid Hormone-Related Peptide This test was developed and its performance characteristics determined by [facility]. It has not been cleared or approved by the US Food and Drug Administration. This test was performed in a CLIA certified laboratory and is intended for clinical purposes. Performed By: [facility] [address] [place], [place] [id number] Front Worker: Armando Lowe MD, PhD CLIA Number: [id number] Blood BLOOD SPECIMEN / Unknown Lab Venipuncture / Unknown 10/25/2024 4:54 AM THERMITE BOMB LOADER 10/25/2024 5:29 AM THERMITE BOMB LOADER Rigoberto Mcclain MD LAB - CHEMISTRY JOHN PAUL RIVAS Performing Organization Address City/[facility]/ZIP Co de Phone Number [facility] ([facility]) [address] [place], [place] [id number] * (ABNORMAL) VITAMIN D 25-HYDROXY (10/25/2024 4:54 AM THERMITE BOMB LOADER) [facility] Vitamin D, 25 Hydroxy 27.0(L) 30.0 - 80.0 ng/mL 10/25/2024 6:33 AM THERMITE BOMB LOADER [facility] Comment: The recommendations for 25-Hydroxy Vitamin [...] Lab Venipuncture / Unknown 10/25/2024 4:54 AM THERMITE BOMB LOADER 10/25/2024 5:29 AM THERMITE BOMB LOADER Rigoberto Mcclain MD LAB - CHEMISTRY JOHN PAUL RIVAS [address] [address], [place] [phone] * LDH BLOOD (10/25/2024 4:54 AM THERMITE BOMB LOADER) Only the most recent of2 resultswithin the time period is included. LDH Total 203 125 - 243 Units/L 10/25/2024 6:19 AM [facility] Blood BLOOD SPECIMEN / Unknown Lab Venipuncture / Unknown 10/25/2024 4:54 AM THERMITE BOMB LOADER 10/25/2024 5:29 AM THERMITE BOMB LOADER Rigoberto Mcclain MD LAB - CHEMISTRY JOHN PAUL RIVAS Performing Organization Address [facility] Co de Phone Number [address] [address], [place] [phone] * (ABNORMAL) CALCIUM IONIZED WHOLE BLOOD (10/24/2024 8:47 AM THERMITE BOMB LOADER) [facility] Calcium Ionized 1.54 mmol/L 10/24/2024 9:03 AM [facility] pH 7.41 7.35 - 7.45 pH 10/24/2024 9:03 AM [facility] Ionized Calcium pH Adjusted 1.55(H) 1.19 - 1.34 mmol/L 10/24/2024 9:03 AM [facility] Blood BLOOD SPECIMEN / Unknown Lab Venipuncture / Unknown 10/24/2024 8:47 AM THERM[employer] BOMB LOADER 10/24/2024 8:58 AM THERM[employer] BOMB LOADER Rigoberto Mcclain MD LAB - CHEMISTRY JOHN PAUL RIVAS Performing Organization Address [facility] Co de Phone Number [address] [address], [place] [phone] * (ABNORMAL) HEMOGLOBIN A1C (10/24/2024 8:47 AM THERMITE BOMB LOADER) Only the most recent of2 resultswithin the time period is included. Pathologist [facility] Hemoglobin A1c 7.9(H) <=5.6 % 10/24/2024 12:41 [...] to evaluate metabolic control in patients. Reference: [place] [employer], Standards of Care in Diabetes -2020 In patients 70 years and older consider HbA1c target range of 7.0-7.5% (Reference: Armen Lópze et al. JAMDA. 2012) The Sebia assay for the measurement of HbA1c is a National Glycohemoglobin Standardization Program (NGSP) certified method. Blood BLOOD SPECIMEN / Unknown Lab Venipuncture / Unknown 10/24/2024 8:47 AM THERM[employer] BOMB LOADER 10/24/2024 9:01 AM THERMITE BOMB LOADER Rigoberto Mcclain MD LAB - CHEMISTRY JOHN PAUL RIVAS Performing Organization Address City/[facility]/ZIP Co de Phone Number [address] [address], [place] [phone] * LACTIC ACID BLOOD (10/24/2024 8:47 AM THERMITE BOMB LOADER) Only the most recent of5 resultswithin the time period is included. Lactic Acid-Stat 2.0 <=2.0 mmol/L 10/24/2024 9:33 AM THERMITE BOMB LOADER [facility] Blood BLOOD SPECIMEN / Unknown Lab Venipuncture / Unknown 10/24/2024 8:47 AM THERMITE BOMB LOADER 10/24/2024 9:02 AM THERMITE BOMB LOADER Rigoberto Mcclain MD LAB - CHEMISTRY JOHN PAUL RIVAS Performing Organization Address City/[facility]/ZIP Co de Phone Number [address] [address], [place] [phone] * (ABNORMAL) BLOOD GASES REINA + COOX PANEL (10/23/2024 6:25 PM THERMITE BOMB LOADER) Only the most recent of2 resultswithin the time period is included. pH Venous 7.45(H) 7.32 - 7.42 pH 10/23/2024 6:44 PM THERMITE BOMB LOADER [facility] pO2 Venous 86(H) 35 - 40 [...] Lab Venipuncture / Unknown 10/23/2024 6:25 PM THERMITE BOMB LOADER 10/23/2024 6:36 PM [facility] - 10/23/2024 6:44 PM THERMITE BOMB LOADER Carboxyhemoglobin Normal Concentration: Non-smokers: 0-2%; Smokers: 0-9%; Toxic: >20% Rigoberto Mcclain MD LAB - BLOOD GASES OR DERABLES [facility] [address] [place] [address], [place] [phone] * (ABNORMAL) LACTIC ACID BLOOD REFLEX TO REPEAT (10/23/2024 6:11 PM THERMITE BOMB LOADER) Only the most recent of3 resultswithin the time period is included. Lactic Acid-Stat 7.9(HH) <=2.0 mmol/L 10/23/2024 6:46 PM THERMITE BOMB LOADER [facility] Blood BLOOD SPECIMEN / Unknown Lab Venipuncture / Unknown 10/23/2024 6:11 PM THERMITE BOMB LOADER 10/23/2024 6:18 PM THERMITE BOMB LOADER [place] G Quintero [employer] LAB - CONTROL CHEMIST RY ORDERABLES [facility] [address] [place] [address], [place] [phone] * Paracentesis (10/23/2024 4:59 PM THERMITE BOMB LOADER) Narrative Muna Waller MD - 10/23/2024 4:59 PM THERMITE BOMB LOADER Elma Deutsch MD 10/23/2024 5:01 PM Paracentesis [...] 7 - 26 mg/dL 09/02/2024 8:23 AM [facility] Creatinine 0.69(L) 0.71 - 1.16 mg/dL 09/02/2024 8:23 AM T [facility] Sodium 135(L) 136 - 145 mmol/L 09/02/2024 8:23 AM [facility] Potassium 3.5 3.5 - 4.5 mmol/L 09/02/2024 8:23 AM [facility] Chloride 107 98 - 107 mmol/L 09/02/2024 8:23 AM [facility] CO2 23 22 - 29 mmol/L 09/02/2024 8:23 AM [facility] Glucose 193(H) 70 - 99 mg/dL 09/02/2024 8:23 AM [facility] Albumin 2.3(L) 3.4 - 5.0 g/dL 09/02/2024 8:23 AM [facility] Calcium 8.9 8.4 - 10.2 mg/dL 09/02/2024 8:23 AM [facility] Phosphorus 2.1(L) 2.8 - 5.1 mg/dL 09/02/2024 8:23 AM [facility] Anion Gap 5(L) 6 - 16 09/02/2024 8:23 AM [facility] BUN/Creatinine Ratio 26(H) 7 - 23 09/02/2024 8:23 AM [facility] Osmolality Calculated 287 275 - 295 mOsm/kg 09/02/2024 8:23 AM [facility] eGFR by CKD-EPI >90 >=90 mL/min/1.7 3 m2 09/02/2024 8:23 AM [facility] Blood BLOOD SPECIMEN / Unknown Lab Venipuncture / Unknown 09/02/2024 6:57 AM CDT 09/02/2024 7:57 AM CDT Juancarlos Lujan MD LAB - CHEMISTRY JOHN PAUL RIVAS [facility] Organization Address City/State/ZIP Co de Phone Number [facility] [address] [place] [address], [place] [phone] * CULTURE URINE (08/31/2024 12:37 AM CDT) Culture Urine <10,000 CFU/mL urogenital sujit ADOLPH 09/01/2024 7:51 AM T [facility] Urine URINE SPECIMEN OBTAINED BY CLEAN CATCH PROCEDURE / Unknown Collection / Unknown 08/31/2024 12:37 AM CDT 08/31/2024 12:56 AM CDT Juancarlos Lujan MD LAB - MICROBIOLOGY O RDERABLES [facility] MICROBIOLOGY [address] [place] [address], [place] [phone] * (ABNORMAL) BASIC METABOLIC PANEL (CALCIUM TOTAL) (08/30/2024 8:04 PM CDT) BUN 37(H) 7 - 26 mg/dL 08/30/2024 8:57 PM [facility] Creatinine 1.06 0.71 - 1.16 mg/dL 08/30/2024 8:57 PM [facility] Sodium 133(L) 136 - 145 mmol/L 08/30/2024 8:57 PM [facility] Potassium 4.5 3.5 - 4.5 mmol/L 08/30/2024 8:57 PM [facility] Chloride 101 98 - 107 mmol/L 08/30/2024 8:57 PM [facility] CO2 18(L) 22 - 29 mmol/L 08/30/2024 8:57 PM [facility] Glucose 211(H) 70 - 99 mg/dL 08/30/2024 8:57 PM [facility] Calcium 9.8 8.4 - 10.2 mg/dL 08/30/2024 8:57 PM [facility] Anion Gap 14 6 - 16 08/30/2024 8:57 PM [facility] BUN/Creatinine Ratio 35(H) 7 - 23 08/30/2024 8:57 PM [facility] Osmolality Calculated 291 275 - 295 mOsm/kg 08/30/2024 8:57 PM [facility] eGFR by CKD-EPI 71(L) >=90 mL/min/1.7 3 m2 08/30/2024 8:57 PM [facility] Blood BLOOD SPECIMEN / Unknown Venipuncture / Unknown 08/30/2024 8:04 PM CDT 08/30/2024 8:14 PM CDT Kayli Kennedy MD LAB - CHEMISTRY JOHN PAUL RIVAS [facility] [address] [place] [phone], [place] [phone] * (ABNORMAL) URINALYSIS REFLEX TO MICROSCOPIC NO CULTURE (08/16/2024 12:45 PM CDT) Color UA Yellow Straw, Yellow 08/16/2024 1:17 PM [facility] Clarity UA Clear Clear 08/16/2024 1:17 PM [facility] Specific [place] UA 1.018 1.005 - 1.030 08/16/2024 1:17 PM [facility] pH UA 5.0 5.0 - 8.0 pH 08/16/2024 1:17 PM [facility] Protein UA Negative Negative 08/16/2024 1:17 PM [facility] Glucose UA 3+(A) Negative 08/16/2024 1:17 PM [facility] Ketone UA Negative Negative 08/16/2024 1:17 PM [facility] Bilirubin UA Negative Negative 08/16/2024 1:17 PM [facility] Blood UA Negative Negative 08/16/2024 1:17 PM [facility] Nitrite UA Negative Negative 08/16/2024 1:17 PM [facility] Leukocyte Esterase Negative Negative 08/16/2024 1:17 PM [facility] Urobilinogen UA Negative Negative mg/dL 08/16/2024 1:17 PM [facility] RBC UA 0-2 None Seen, 0-2, 3-5 /HPF 08/16/2024 1:17 PM [facility] WBC UA 0-5 None Seen, 0-5 /HPF 08/16/2024 1:17 PM [facility] Squamous Epithelial Cells UA None Seen None Seen, 0-2, 3-5 /HPF 08/16/2024 1:17 PM [facility] Mucus UA 1+ /LPF 08/16/2024 1:17 PM [facility] Hyaline Casts UA 3-5(A) None Seen, 0-2 /LPF 08/16/2024 1:17 PM CDT [facility] Urine URINE SPECIMEN OBTAINED BY CLEAN CATCH PROCEDURE / Unknown Collection / Unknown 08/16/2024 12:45 PM CDT 08/16/2024 12:59 PM CDT Narrative [facility] - 08/16/2024 1:17 PM CDT Talisha Pretty MD LAB - URINALYSIS ORDERABLES Performing Organization Address [facility] Co de Phone Number [address] [phone], [place] [phone] * (ABNORMAL) IMMUNOFIXATION BLOOD (06/26/2024 2:09 PM CDT) [facility] Immunofixation Serum Abnormal Pattern(A) Normal Pattern 06/30/2024 3:13 PM CDT [facility] Comment: Serum immunofixation electrophoresis shows polyclonal [...] CHEMISTRY JOHN PAUL RIVAS Performing Organization Address [facility] Co de Phone Number [address] [phone], [place] [phone] * (ABNORMAL) KAPPA/LAMBDA LITE CHAIN FREE PANEL (06/26/2024 2:09 PM CDT) [place] Quant Free Light Chain 58.79(H) 3.30 - 19.40 mg/L 06/28/2024 7:41 AM CDT [facility] ([facility]) Comment: INTERPRETIVE INFORMATION: [place] Qnt Free Light Chains Undetected antigen excess is a rare event but cannot be excluded. Free light chain results should always be interpreted in conjunction with other clinical and laboratory findings. Lambda Free Light Chain Quantitative 44.88(H) 5.71 - 26.30 mg/L 06/28/2024 7:41 AM CDT [facility]) Comment: INTERPRETIVE INFORMATION: Lambda Qnt Free Light Chains Undetected antigen excess is a rare event but cannot be excluded. Free light chain results should always be interpreted in conjunction with other clinical and laboratory findings. [place]/Lambda Free Light Chain ratio 1.31 0.26 - 1.65 06/28/2024 7:41 AM CDT [facility]) Comment: Performed By: [facility] [employer] [address] [place] [address] Front Worker: Armando Lowe MD, PhD CLIA Number: [id number] Blood BLOOD SPECIMEN / Unknown Lab Venipuncture / Unknown 06/26/2024 2:09 PM CDT 06/26/2024 2:10 PM CDT Lily James MD LAB - CHEMISTRY EWELINAE EVELYN [facility] Organization Address City/State/ZIP Co de Phone Number [facility]) [address] [place] [address], [place] * (ABNORMAL) PROTEIN ELECTROPHORESIS BLOOD (06/26/2024 2:09 PM CDT) Interpretation Serum PE Abnormal Pattern(A) Normal Pattern 06/30/2024 3:13 PM CDT [facility] Comment: Serum capillary electrophoresis shows characteristic [...] - 8.3 g/dL 06/30/2024 3:13 PM CDT [facility] Albumin 2.7(L) 3.3 - 5.6 g/dL 06/30/2024 3:13 PM CDT [facility] Alpha-1 Globulins 0.5(H) 0.2 - 0.4 g/dL 06/30/2024 3:13 PM CDT [facility] Alpha-2 Globulins 0.8 0.5 - 1.0 g/dL 06/30/2024 3:13 PM CDT [facility] Beta Globulins 0.7 0.6 - 1.1 g/dL 06/30/2024 3:13 PM CDT [facility] Gamma Globulins 1.8(H) 0.6 - 1.6 g/dL 06/30/2024 3:13 PM CDT [facility] LABORATORY [facility] Blood BLOOD SPECIMEN / Unknown Lab Venipuncture / Unknown 06/26/2024 2:09 PM CDT 06/26/2024 2:10 PM CDT Lily James MD LAB - CHEMISTRY JOHN PAUL RIVAS Performing Organization Address City/[facility]/ZIP Co de Phone Number [address] [address], [place] [phone] * IGM BLOOD (06/26/2024 2:09 PM CDT) IgM 64 37 - 286 mg/dL 06/26/2024 2:44 PM CDT [facility] Blood BLOOD SPECIMEN / Unknown Lab Venipuncture / Unknown 06/26/2024 2:09 PM CDT 06/26/2024 2:10 PM CDT Lily James MD LAB - CHEMISTRY JOHN PAUL RIVAS Performing Organization Address City/[facility]/ZIP Co de Phone Number [address] [address], [place] [phone] * (ABNORMAL) IGG BLOOD (06/26/2024 2:09 PM CDT) IgG 2,181(H) 767 - 1,590 mg/dL 06/26/2024 2:44 PM CDT [facility] Blood BLOOD SPECIMEN / Unknown Lab Venipuncture / Unknown 06/26/2024 2:09 PM CDT 06/26/2024 2:10 PM CDT Lily James MD LAB - CHEMISTRY JOHN PAUL RIVAS [address] [address], [place] [phone] * IGA BLOOD (06/26/2024 2:09 PM CDT) [facility] IgA 219 61 - 356 mg/dL 06/26/2024 2:44 PM CDT [facility] Blood BLOOD SPECIMEN / Unknown Lab Venipuncture / Unknown 06/26/2024 2:09 PM CDT 06/26/2024 2:10 PM CDT Lily James MD LAB - CHEMISTRY JOHN PAUL RIVAS Performing Organization Address [facility] Co de Phone Number [address] [address], [place] [phone] * ALPHA FETOPROTEIN BLOOD TUMOR MARKER (06/17/2024 1:54 PM CDT) [facility] Alpha-Fetoprote in Tumor Marker <2.0 <=8.3 ng/mL 06/17/2024 3:41 PM CDT [facility] Comment: AFP values will vary depending on testing procedure used. Results are not comparable across different methods. AFP values obtained by [facility] using an Muncher[employer] Alinity Immunoassay. Blood BLOOD SPECIMEN / Unknown Lab Venipuncture / Unknown 06/17/2024 1:54 PM CDT 06/17/2024 2:51 PM CDT Rigoberto Mcclain MD LAB - CHEMISTRY JOHN PAUL RIVAS Performing Organization Address City/[facility]/ZIP Co de Phone Number [address] [address], [place] [phone] * (ABNORMAL) [id number] BLOOD (06/17/2024 1:54 PM CDT) [facility] Jmfwa-4-Bsrxmm ypsin 247(H) 90 - 200 mg/dL 06/17/2024 3:15 PM CDT [facility] Blood BLOOD SPECIMEN / Unknown Lab Venipuncture / Unknown 06/17/2024 1:54 PM CDT 06/17/2024 2:56 PM CDT Rigoberto Mcclain MD LAB - CHEMISTRY JOHN PAUL RIVAS Performing Organization Address City/[facility]/ZIP Co de Phone Number [facility] [address] [place] [address], [place] [phone] * HEPATITIS B SURFACE ANTIBODY (06/17/2024 1:54 PM CDT) Hepatitis B Virus Surface Antibody Non-react pepe Non-react pepe 06/17/2024 3:28 PM CDT [facility] Comment: < 8 mIU/mL Hepatitis B surface Antibody (HBsAb). Nonreactive for HBsAb - individual is considered not immune to Hepatitis B Virus infection. Hepatitis B Surface Antibody Quantitative 0.5 <8.0 mIU/mL 06/17/2024 3:28 PM CDT [facility] Comment: Hepatitis B Surface Antibody Numeric Result Interpretation: Nonreactive: <8.0 mIU/mL Indeterminate: 8.0 - 12.0 mIU/mL Reactive: >12.0 mIU/mL Blood BLOOD SPECIMEN / Unknown Lab Venipuncture / Unknown 06/17/2024 1:54 PM CDT 06/17/2024 2:56 PM CDT Rigoberto Mcclain MD LAB - CHEMISTRY JOHN PAUL RIVAS Performing Organization Address City/[facility]/ZIP Co de Phone Number [facility] [address] [place] [address], [place] [phone] * HEPATITIS B CORE ANTIBODY TOTAL (06/17/2024 1:54 PM CDT) HBc Antibody Total Non-reacti ve Non-reacti ve 06/17/2024 3:28 PM CDT [facility] Blood BLOOD SPECIMEN / Unknown Lab Venipuncture / Unknown 06/17/2024 1:54 PM CDT 06/17/2024 2:56 PM CDT Rigoberto Mcclain MD LAB - CHEMISTRY JOHN PAUL RIVAS Performing Organization Address [facility]/ZIP Co de Phone Number [address] [address], [place] [phone] * HEPATITIS B SURFACE ANTIGEN W RFLX CONFIRMATION (06/17/2024 1:54 PM CDT) [facility] Hepatitis B Virus Surface Antigen Non-reacti ve Non-reacti ve 06/17/2024 3:28 PM CDT [facility] Blood BLOOD SPECIMEN / Unknown Lab Venipuncture / Unknown 06/17/2024 1:54 PM CDT 06/17/2024 2:56 PM CDT Rigoberto Mcclain MD LAB - CHEMISTRY JOHN PAUL RIVAS Performing Organization Address [facility] Co de Phone Number [address] [address], [place] [phone] * BILIRUBIN DIRECT (06/17/2024 1:54 PM CDT) [facility] Bilirubin Conjugated 0.3 0.1 - 0.5 mg/dL 06/17/2024 3:23 PM CDT [facility] Blood BLOOD SPECIMEN / Unknown Lab Venipuncture / Unknown 06/17/2024 1:54 PM CDT 06/17/2024 2:51 PM CDT Rigoberto Mcclain MD LAB - CHEMISTRY JOHN PAUL RIVAS Performing Organization Address [facility] Co de Phone Number [address] [address], [place] [phone] * (ABNORMAL) HEPATITIS A ANTIBODY (06/17/2024 1:54 PM CDT) [facility] Hepatitis A Virus Antibody Total Positive( A) Negative 06/18/2024 9:49 PM CDT [facility] ([facility]) Comment: The positive anti-HAV is consistent with recent or remote Hepatitis A infection or antibody response to HAV vaccination. False positive anti-HAV can occur. Performed By: [employer] [address] [place] [id number] Front Worker: Armando Lowe MD, PhD CLIA Number: [id number] Blood BLOOD SPECIMEN / Unknown Lab Venipuncture / Unknown 06/17/2024 1:54 PM CDT 06/17/2024 2:56 PM CDT Rigoberto Mcclain MD LAB - CHEMISTRY JOHN PAUL RIVAS [facility]) [address] [place] [id number] * FLOW CYTOMETRY BONE MARROW (02/01/2024 9:30 AM CDT) Case Report Flow Cytometry Case: [id number] Authorizing Provider: Kadeem Mcclelland Collected: 02/01/2024 09:30 AM MD Bola Ordering Location: [facility] - Received: 02/01/2024 12:23 PM Pathology Lab Pathologist: Rosa Maria Murry MD Specimen: Bone Marrow 4 12:02 PM CDT [facility] Final Diagnosis Bone marrow, flow [...] reported B-cell lymphoma. 4 12:02 PM CDT [facility] Flow Cytometry Interpretation Viability: 85% [...] flow cytometry specimen has been reviewed for quality assurance consultant purposes. Please correlate with histologic review of the bone marrow ([id number]). 4 12:02 PM [facility] Flow Cytometry Results Differential Result Comment Flow Cell Count /uL 10,200 Total Viability % 85.0 Lymphocytes % 19 Dim CD45 Region % 5 Monocytes % 20 Granulocytes % 56 4 12:02 PM [facility] Reason for test Follicular lymphoma, unspecified, unspecified site (HCC) Non-Hodgkin lymphoma, unspecified, unspecified site (HCC) 4 12:02 PM [facility] Client Specimen ID # [id number] 12:02 PM [facility] Number of markers 22 [...] Flow CD57 A-21 TCR-AB A-22 TCR-GD A-7 [place]+CD19+ A-8 Lambda+CD19+ 4 12:02 PM [facility] Pathologist Location at [facility] 4 12:02 PM [facility] Disclaimer Test performed at [facility], [address] [place] [address], [id number]. *The established laboratory minimum viability is 70%. [...] high complexity clinical testing. 12:02 PM CDT [facility] Embedded Images 12:02 PM CDT [facility] Pathology/Cytolo gy BONE MARROW SPECIMEN / Unknown 02/01/2024 9:30 AM CDT 02/01/2024 12:23 PM CDT Kadeem Mcclelland MD LAB - PATHO LOGY/CYTOLOGY ORDERABLES Performing Organization Address City/State/[facility] Co de Phone Number [facility] [address] [phone] * BONE MARROW BIOPSY (STL) (02/01/2024 8:32 AM CDT) Case Report Bone Marrow Patholog y Report Case: [id number] Authorizing Provider: Kadeem Mcclelland Collected: 02/01/2024 08:32 AM MD Bola Ordering Location: [facility] - Received: 02/04/2024 03:11 PM Pathology Lab Pathologist: Rosa Maria Murry MD Specimens: A) - Bone Marrow Clot B) - Bone Marrow Core 02/06/2024 12:21 PM CDT [facility] Final Diagnosis Bone marrow, iliac [...] molecular data is needed. 02/06/2024 12:21 PM [facility] Peripheral Smear Description Manual Differential [...] decreased. Platelet morphology: normal. 02/06/2024 12:21 PM [facility] Bone Marrow Aspirate Differential count [...] stain): no ring sideroblasts. 02/06/2024 12:21 PM [facility] Bone Marrow Core Biopsy and [...] similar to core biopsy. 02/06/2024 12:21 PM [facility] Flow Cytometry Summary Bone marrow, flow cytometric immunophenotyping ([id number]): - Mild T-cell aberrancy identified (see comment) [...] patient's reported B-cell lymphoma. 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 He presented for evaluation of pancytopenia. 02/06/2024 12:21 PM [facility] Materials Received Received are 21 slide(s) and 3 blocks labeled [id number] along with a copy of the outside pathology report. [place] [address] . All original materials are returned to the referring institution, along with a copy of our final report. 02/06/2024 12:21 PM [facility] Microscopic Description Immunohistochemistry and special [...] 1% of all cells without abnormal clustering. [place] and lambda in situ hybridization stains (core [...] CDT [facility] Pathologist Location at [facility] 02/06/2024 12:21 PM CDT [facility] Disclaimer The performance characteristics of all immunohistochemical and indirect immunofluorescence stains (if any) cited in this report were determined by the Histopathology Laboratory of [facility]. Some of these tests were developed by [...] LAB Embedded Images 02/06/2024 12:21 PM CDT [facility] Pathology/Cytology BONE MARROW SPECIMEN / Unknown 02/01/2024 8:32 AM CDT 02/04/2024 3:11 PM CDT Miscellaneous samples (specimen) BONE MARROW SPECIMEN / Unknown 02/01/2024 8:32 AM CDT 02/04/2024 3:11 PM CDT Kadeem Mcclelland MD LAB - PATHO LOGY/CYTOLOGY ORDERABLES Performing Organization Address City/State/[facility] Co de Phone Number [facility] [address] [phone] * PATHOLOGY TISSUE (12/14/2022 11:29 AM [facility] [employer]) Case Report Surgical Pathology Report Case: [id number] Authorizing Provider: Indio Montoya MD Collected: 12/14/2022 11:29 AM Ordering Location: [facility] Pathology Lab Received: 12/19/2022 08:29 AM Pathologist: Nataliya Pena MD Specimen: Lymph Node Biopsy 12/20/2022 11:59 AM [facility] PATH[facility] Final Diagnosis Abdominal lymph node, core biopsy: - B-cell lymphoma - See description. 12/20/2022 11:59 AM [employer] Microscopic Description and Comment H&E [...] lymph node flow cytometry detects a monoclonal [id number] mature B-cell lymphoma. Overall, the biopsy is [...] and for final subclassification. 12/20/2022 11:59 AM [facility] Clinical History The patient is a 77 year-old man with abdominal lymphadenopathy. 12/20/2022 11:59 AM [facility] Materials Received Received are three slides and one block (A1) labeled [id number] along with a copy of the outside pathology report. [place] [address]. All original materials are returned to the referring institution, along with a copy of our final report. 12/20/2022 11:59 AM [facility] Disclaimer The performance characteristics of all immunohistochemical and indirect immunofluorescence stains (if any) cited in this report were determined by the Histopathology Laboratory of [facility]. Some of these tests were developed by [...] the attending (teaching) pathologist. 12/20/2022 11:59 AM [employer] [facility] Embedded Images 12/20/2022 11:59 AM [facility] Pathology/Cytolo gy BIOPSY OF LYMPH NODE / Unknown 12/14/2022 11:29 AM [employer] 12/19/2022 8:29 AM [employer] Indio Montoya MD LAB - PATHOLOGY/CYTO LOGY ORDERABLES [facility] [address] [phone] * DERMATOPATHOLOGY (09/20/2020 12:00 AM [employer]) Case Report Dermatopathology Report Case: [id number] Authorizing Provider: Armen Orozco MD Collected: 09/20/2020 12:00 AM Ordering Location: [facility] DermPath Lab Received: 09/21/2020 06:45 AM Pathologist: Lola Reyes MD Specimen: Skin, right helix 0 3:50 PM [facility] DERMATOPATHOLOGY LABORATORY Final Diagnosis Specimen A. 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 Path # [id number]. 0 3:50 PM [facility] DERMATOPATHOLOGY LABORATORY Gross Description Specimen A: Received is one formalin filled container labeled with the patient's name and designated right helix. The specimen consists of a shave biopsy measuring [id number]. Jar 0. 0 3:50 PM [facility] DERMATOPATHOLOGY LABORATORY Microscopic Description Specimen A. SKIN, [...] cannot be ruled out. 0 3:50 PM [facility] DERMATOPATHOLOGY LABORATORY Disclaimer An external and internal positive and negative controls are appropriate for the histochemical, immunohistochemical and immunofluorescence stain(s) in this case (if any), except where stated explicitly. The performance characteristics of the stain(s) cited in this report were developed and its performance characteristic determined by the Dermatopathology Laboratory at [facility], directed by Dr. Quincy Perez. These tests need not be, and therefore are not, approved by the [place] Food and Drug Administration. The tests are used for clinical purposes. Billing Codes Specimen Charges Stain Charges 05447 1 85165 1 0 3:50 PM [facility] DERMATOPATHOLOGY LABORATORY Embedded Images 0 3:50 PM [facility] DERMATOPATHOLOGY LABORATORY Pathology/Cytolog y TISSUE SPECIMEN FROM SKIN / Unknown 09/20/2020 09/21/2020 6:45 AM [employer] Armen Orozco MD LAB - PATHOLOGY/CYTO LOGY ORDERABLES DERMATOPATHOLOGY LABORATORY [facility] - Department of Dermatology [facility] Specialized Medicine [address] [place] [address], [address] [phone] Care Teams Consumer Affairs Specialist Relationship Specialty Start Date End Date Moses Conn MD [address] [place] [id number] PCP - General 01/04/23
--- OUTSIDE RECORDS SUMMARY | 2024-12-23 12:56 | XMS_ITS | Encounter Summary ---
Author Organization [facility] Address [address] [place] [address] Care Team Providers Care Digital Circuit Designer Name Role Phone Moses Conn MD Primary Care Provider [phone] Encounter Details Date Type Department Care Team (Late Contact Info) Description 12/19/2022 Lab Requisition [facility] Care Pathology Lab [address] [place] [address] Indio Montoya MD [address] [place] [address] Illness, unspecified Social History Tobacco Use Types Packs/Day Years Used Date Smoking Tobacco: Never Assessed Sex and Gender Information Value Date Recorded Sex Assigned at Not on file Gender Identity Not on file Sexual Orientation Not on file documented as of this encounter Plan of Treatment Upcoming Encounters Date Type Department Care Team ([facility] Contact Info) Description 01/27/2025 2:00 PM CDT Office Visit [facility] [address] [facility], [place] [phone] Rigoberto Mcclain MD [address] [place] [phone] documented as of this encounter Procedures Procedure Name Priority Date/Time Associated Diagnosis Comments PATHOLOGY TISSUE Routine 12/14/2022 11:2 9 AM [employer] Illness, unspecified documented in this encounter Results * PATHOLOGY TISSUE (12/14/2022 11:29 AM [employer]) Case Report Surgical Pathology Report Case: [id number] Authorizing Provider: Indio Montoya MD Collected: 12/14/2022 11:29 AM Ordering Location: [facility] Pathology Lab Received: 12/19/2022 08:29 AM Pathologist: Nataliya Pena MD Specimen: Lymph Node Biopsy 12/20/2022 11:59 AM [facility] Final Diagnosis Abdominal lymph node, core biopsy: - B-cell lymphoma - See description. 12/20/2022 11:59 AM [facility] Microscopic Description and Comment H&E [...] lymph node flow cytometry detects a monoclonal SR66-dlulwgnr mature B-cell lymphoma. Overall, the biopsy is [...] and for final subclassification. 12/20/2022 11:59 AM [facility] Clinical History The patient is a 77 year-old man with abdominal lymphadenopathy. 12/20/2022 11:59 AM [facility] Materials Received Received are three slides and one block (A1) labeled [id number] along with a copy of the outside pathology report. [place] [address]. All original materials are returned to the referring institution, along with a copy of our final report. 12/20/2022 11:59 AM [facility] Disclaimer The performance characteristics of all immunohistochemical and indirect immunofluorescence stains (if any) cited in this report were determined by the Histopathology Laboratory of [facility]. Some of these tests were developed by [...] the attending (teaching) pathologist. 12/20/2022 11:59 AM [facility] Embedded Images 12/20/2022 11:59 AM [facility] Pathology/Cytolo gy BIOPSY OF LYMPH NODE / Unknown 12/14/2022 11:29 AM [employer] 12/19/2022 8:29 AM [employer] Indio Montoya MD LAB - PATHOLOGY/CYTO LOGY ORDERABLES Performing Organization Address City/State/[facility] Co de Phone Number [facility] PATH[facility] LAB [address] [phone] documented in this encounter Visit Diagnoses Diagnosis Illness, unspecified documented in this encounter Additional Health Concerns Infection Onset Date Last Indicated Resolved Time COVID-19 Under Investigation 11/06/2024 11/06/2024 11/06/2024 5:10 PM [employer] MDRO 11/06/2024 11/06/2024 COVID-19 Under Investigation 12/03/2024 12/03/2024 12/03/2024 1:56 PM [employer] documented as of this encounter Care Teams Digital Circuit Designer Relationship Specialty Start Date End Date Moses Conn MD [address] [place], [place] [id number] PCP - General 01/04/23 documented as of this encounter
--- OUTSIDE RECORDS SUMMARY | 2024-12-23 12:56 | XMS_ITS | Referral Summary ---
Author Organization [facility] Address [address] [facility] [place] [address] Care Team Providers Care Bone Char Kiln Tender Name Role Phone Moses Conn MD Primary Care Provider [phone] [facility],non-owned Affiliates and Associated Physician Practices is amultiple site organization consisting of ambulatory clinics and hospital sitesin [place], [place], [place] and [place]. This disclosure is being madepursuant to the Care Everywhere program and may not contain all information available regarding this patient. Last updated 18.[facility] Encounters Date Type Department Care Team Description 12/09/2024 Transitional Care [facility] CARE COORDINATION [address] [place] [address] Lesly Acosta, RN Transitions Of Care 12/03/2024 1:55 PM PONY CYLINDER PRESS OPERATOR - 12/08/2024 2:44 PM PONY CYLINDER PRESS OPERATOR Hospital Encounter [facility] 7S ACUTE [address] [place] [address] Julio Torres MD Demars, MD Tai Carroll Alex S, MD Shmais, Manar A, MD Qureshi, Kamran, MD Emergency Medicine Discharge Disposition: Home Health Care Svc 12/03/2024 Travel 12/02/2024 Telephone [facility] - GI [address] [facility], [place] [address] Luana Alejo, OLAF Cirrhosis (decompensated) 11/14/2024 Transitional Care [facility] CARE COORDINATION [address] [place] [phone] Lesly Acosta, OLAF Transitions Of Care 11/06/2024 2:03 PM PONY CYLINDER PRESS OPERATOR - 11/13/2024 4:50 PM PONY CYLINDER PRESS OPERATOR Hospital Encounter [facility] 8S ACUTE [address] [place] [address] Homer Hallman MD Befeler, Alex S, MD Elbeshbeshy, Sly Morrissey MD Gastroenterology Discharge Disposition: Home or Self Care 11/06/2024 Travel 11/06/2024 10:00 AM PONY CYLINDER PRESS OPERATOR Office Visit [facility] [address] [place] [phone] Rigoberto Mcclain MD Decompensated hepatic cirrhosis (HCC) (Primary Dx); Portal hypertension (HCC); Other ascites; Hepatic encephalopathy (HCC) 10/31/2024 Travel 10/31/2024 9:30 AM PONY CYLINDER PRESS OPERATOR - 10/31/2024 11:00 AM PONY CYLINDER PRESS OPERATOR Surgery [facility] ENDOSCOPY [address] [place] [address] Procedure, Nursing G_I GASTRIC MOTILITY STUDY 10/31/2024 9:23 AM PONY CYLINDER PRESS OPERATOR - 10/31/2024 10:20 AM PONY CYLINDER PRESS OPERATOR Hospital Encounter [facility]ILA OP [address] [place] [address] Didier Lei MD Surgery General Discharge Disposition: Home or Self Care 10/23/2024 2:22 PM PONY CYLINDER PRESS OPERATOR - 10/28/2024 3:15 PM PONY CYLINDER PRESS OPERATOR Hospital Encounter [facility] 7N ACUTE [address] [place] [address] Muna Waller MD Agbim, Uchenna A, MD Qureshi, Kamran, MD Gastroenterology Discharge Disposition: Home or Self Care 10/23/2024 Travel 10/23/2024 Telephone [facility] - Nephrology [address] [place] [phone] Rigoberto Mcclain MD Follow-up; Med Question 09/28/2024 11:35 AM PONY CYLINDER PRESS OPERATOR - 09/30/2024 12:45 PM PONY CYLINDER PRESS OPERATOR Hospital Encounter [facility] 7S ACUTE [address] [place] [address] Carlos Mcclain, Didier Rowland MD SynFrancy MD Gastroenterology Discharge Disposition: Home or Self Care 09/28/2024 Travel 09/24/2024 Transitional Care [facility] CARE COORDINATION [address] [place] [address] Lesly Acosat, RN Transitions Of Care from Last 3 [...] fluticasone propionate (Flonase) 50 MCG/ACT nasal spray [place] 1 (one) spray into the nose once [...] and heating? Not hard at all 11/08/2024 [facility] [place] [facility] Occupat ional Health - Occupational Stress [...] any time in the past 12 [address] [place], were you homeless or living in a snf (including now)? No 11/08/2024 Sex and Gender Information Value Date Recorded Sex Assigned at Not on file Gender Identity Not on file Sexual Orientation Not on file Last Filed Vital Signs Vital Sign Reading Time Taken Comments Blood Pressure 135/61 12/08/2024 12:00 PM PONY CYLINDER PRESS OPERATOR Pulse 75 12/08/2024 12:00 PM PONY CYLINDER PRESS OPERATOR Temperature 36.5 C (97.7 F) 12/08/2024 12:00 PM PONY CYLINDER PRESS OPERATOR Respiratory Rate 17 12/08/2024 12:00 PM PONY CYLINDER PRESS OPERATOR Oxygen Saturation 98% 12/08/2024 12:00 PM PONY CYLINDER PRESS OPERATOR Inhaled Oxygen Concentration - - Weight 48 kg (105 lb 12.8 oz) 12/05/2024 6:16 PM PONY CYLINDER PRESS OPERATOR Height 163 cm (5' 4.17 ) 12/04/2024 8:31 PM PONY CYLINDER PRESS OPERATOR Body Mass Index 18.06 12/04/2024 8:31 PM PONY CYLINDER PRESS OPERATOR Functional Status Functional Status Response Date of [...] CDT Office Visit [facility] - [address] [place] [address], [facility] [place] [address] [place] [address] [place] [phone] Goals Goal Patient Goal Type Associated Problems Recent Progress Patient-Stated? Author Medication Management General On track( 025 10:45 AM PONY CYLINDER PRESS OPERATOR) Kandis Dejesus, RN Note: Expected end date: ongoing Interventions: Take all medications as prescribed Let your doctor know right away about any changes in your medications Make sure to request a refill of your medication at least one week prior to your last dose Procedures Procedure Name Priority Date/Time Associated Diagnosis Comments GLUCOSE - POINT OF CARE Routine 12/08/2024 12:03 PM PONY CYLINDER PRESS OPERATOR GLUCOSE - POINT OF CARE Routine 12/08/2024 7:56 AM PONY CYLINDER PRESS OPERATOR PHOSPHORUS BLOOD Routine 12/08/2024 5:06 AM PONY CYLINDER PRESS OPERATOR MAGNESIUM BLOOD Routine 12/08/2024 5:06 AM PONY CYLINDER PRESS OPERATOR COMPREHENSIVE METABOLIC PANEL AM Draw 12/08/2024 5:06 AM PONY CYLINDER PRESS OPERATOR CBC W AUTO DIFFERENTIAL AM Draw 12/08/2024 5:06 AM PONY CYLINDER PRESS OPERATOR GLUCOSE - POINT OF CARE Routine 12/08/2024 4:51 AM PONY CYLINDER PRESS OPERATOR GLUCOSE - POINT OF CARE Routine 12/07/2024 11:59 PM PONY CYLINDER PRESS OPERATOR GLUCOSE - POINT OF CARE Routine 12/07/2024 8:41 PM PONY CYLINDER PRESS OPERATOR GLUCOSE - POINT OF CARE Routine 12/07/2024 4:34 PM PONY CYLINDER PRESS OPERATOR GLUCOSE - POINT OF CARE Routine 12/07/2024 11:56 AM PONY CYLINDER PRESS OPERATOR GLUCOSE - POINT OF CARE Routine 12/07/2024 8:40 AM PONY CYLINDER PRESS OPERATOR PHOSPHORUS BLOOD Routine 12/07/2024 5:15 AM PONY CYLINDER PRESS OPERATOR MAGNESIUM BLOOD Routine 12/07/2024 5:15 AM PONY CYLINDER PRESS OPERATOR COMPREHENSIVE METABOLIC PANEL AM Draw 12/07/2024 5:15 AM PONY CYLINDER PRESS OPERATOR CBC W AUTO DIFFERENTIAL AM Draw 12/07/2024 5:15 AM PONY CYLINDER PRESS OPERATOR GLUCOSE - POINT OF CARE Routine 12/07/2024 5:09 AM PONY CYLINDER PRESS OPERATOR GLUCOSE - POINT OF CARE Routine 12/06/2024 11:48 PM PONY CYLINDER PRESS OPERATOR GLUCOSE - POINT OF CARE Routine 12/06/2024 7:57 PM PONY CYLINDER PRESS OPERATOR GLUCOSE - POINT OF CARE Routine 12/06/2024 4:45 PM PONY CYLINDER PRESS OPERATOR GLUCOSE - POINT OF CARE Routine 12/06/2024 12:29 PM PONY CYLINDER PRESS OPERATOR GLUCOSE - POINT OF CARE Routine 12/06/2024 8:17 AM PONY CYLINDER PRESS OPERATOR PHOSPHORUS BLOOD Routine 12/06/2024 5:39 AM PONY CYLINDER PRESS OPERATOR MAGNESIUM BLOOD Routine 12/06/2024 5:39 AM PONY CYLINDER PRESS OPERATOR COMPREHENSIVE METABOLIC PANEL AM Draw 12/06/2024 5:39 AM PONY CYLINDER PRESS OPERATOR CBC W AUTO DIFFERENTIAL AM Draw 12/06/2024 5:39 AM PONY CYLINDER PRESS OPERATOR INSULIN FREE + TOTAL Routine 12/06/2024 5:39 AM PONY CYLINDER PRESS OPERATOR INSULIN LIKE GROWTH FACTOR 2 Routine 12/06/2024 5:39 AM PONY CYLINDER PRESS OPERATOR IGF BINDING PROTEIN 1 Routine 12/06/2024 5:39 AM PONY CYLINDER PRESS OPERATOR HYDROXYBUTYRATE BETA Routine 12/06/2024 5:39 AM PONY CYLINDER PRESS OPERATOR CORTISOL BLOOD AM Timed 12/06/2024 5:3 9 AM PONY CYLINDER PRESS OPERATOR PROINSULIN Routine 12/06/2024 5:39 AM PONY CYLINDER PRESS OPERATOR C-PEPTIDE Routine 12/06/2024 5:39 AM PONY CYLINDER PRESS OPERATOR GLUCOSE - POINT OF CARE Routine 12/06/2024 4:14 AM PONY CYLINDER PRESS OPERATOR GLUCOSE - POINT OF CARE Routine 12/05/2024 11:51 PM PONY CYLINDER PRESS OPERATOR GLUCOSE - POINT OF CARE Routine 12/05/2024 8:38 PM PONY CYLINDER PRESS OPERATOR GLUCOSE - POINT OF CARE Routine 12/05/2024 3:59 PM PONY CYLINDER PRESS OPERATOR GLUCOSE - POINT OF CARE Routine 12/05/2024 12:17 PM PONY CYLINDER PRESS OPERATOR C-PEPTIDE Routine 12/05/2024 10:08 AM PONY CYLINDER PRESS OPERATOR PROINSULIN AM Draw 12/05/2024 10:07 AM PONY CYLINDER PRESS OPERATOR INSULIN FREE + TOTAL AM Draw 12/05/2024 10:07 AM PONY CYLINDER PRESS OPERATOR GLUCOSE - POINT OF CARE Routine 12/05/2024 8:20 AM PONY CYLINDER PRESS OPERATOR GLUCOSE - POINT OF CARE Routine 12/05/2024 7:48 AM PONY CYLINDER PRESS OPERATOR GLUCOSE - POINT OF CARE Routine 12/05/2024 7:38 AM PONY CYLINDER PRESS OPERATOR PHOSPHORUS BLOOD Routine 12/05/2024 6:32 AM PONY CYLINDER PRESS OPERATOR MAGNESIUM BLOOD Routine 12/05/2024 6:32 AM PONY CYLINDER PRESS OPERATOR COMPREHENSIVE METABOLIC PANEL AM Draw 12/05/2024 6:32 AM PONY CYLINDER PRESS OPERATOR CBC W AUTO DIFFERENTIAL AM Draw 12/05/2024 6:32 AM PONY CYLINDER PRESS OPERATOR GLUCOSE - POINT OF CARE Routine 12/05/2024 3:51 AM PONY CYLINDER PRESS OPERATOR GLUCOSE - POINT OF CARE Routine 12/05/2024 3:39 AM PONY CYLINDER PRESS OPERATOR GLUCOSE - POINT OF CARE Routine 12/05/2024 3:32 AM PONY CYLINDER PRESS OPERATOR GLUCOSE - POINT OF CARE Routine 12/05/2024 3:27 AM PONY CYLINDER PRESS OPERATOR GLUCOSE - POINT OF CARE Routine 12/05/2024 3:17 AM PONY CYLINDER PRESS OPERATOR GLUCOSE - POINT OF CARE Routine 12/05/2024 3:05 AM PONY CYLINDER PRESS OPERATOR GLUCOSE - POINT OF CARE Routine 12/04/2024 7:42 PM PONY CYLINDER PRESS OPERATOR GLUCOSE - POINT OF CARE Routine 12/04/2024 6:53 PM PONY CYLINDER PRESS OPERATOR GLUCOSE - POINT OF CARE Routine 12/04/2024 6:30 PM PONY CYLINDER PRESS OPERATOR GLUCOSE - POINT OF CARE Routine 12/04/2024 6:09 PM PONY CYLINDER PRESS OPERATOR GLUCOSE - POINT OF CARE Routine 12/04/2024 5:46 PM PONY CYLINDER PRESS OPERATOR US ABDOMEN LIMITED STAT 12/04/2024 11 :40 AM PONY CYLINDER PRESS OPERATOR Hepatic cirrhosis, unspecified hepatic cirrhosis type, unspecified whether ascites present (HCC) CARDIAC EKG ORDER 12/04/2024 11: 29 AM PONY CYLINDER PRESS OPERATOR UREA NITROGEN URINE RANDOM STAT 12/04/2024 9:39 AM PONY CYLINDER PRESS OPERATOR FERRITIN MICHELLE 12/04/2024 9:38 AM PONY CYLINDER PRESS OPERATOR VITAMIN B12 MICHELLE 12/04/2024 9:38 AM PONY CYLINDER PRESS OPERATOR FOLATE MICHELLE 12/04/2024 9:38 AM PONY CYLINDER PRESS OPERATOR IRON + TRANSFERRIN PANEL STAT 12/04/2024 9:38 AM PONY CYLINDER PRESS OPERATOR GLUCOSE - POINT OF CARE Routine 12/04/2024 7:48 AM PONY CYLINDER PRESS OPERATOR GLUCOSE - POINT OF CARE Routine 12/04/2024 5:46 AM PONY CYLINDER PRESS OPERATOR GLUCOSE - POINT OF CARE Routine 12/04/2024 4:50 AM PONY CYLINDER PRESS OPERATOR PHOSPHORUS BLOOD STAT 12/04/2024 4:33 AM PONY CYLINDER PRESS OPERATOR MAGNESIUM BLOOD STAT 12/04/2024 4:33 AM PONY CYLINDER PRESS OPERATOR COMPREHENSIVE METABOLIC PANEL STAT 12/04/2024 4:33 AM PONY CYLINDER PRESS OPERATOR CBC W AUTO DIFFERENTIAL STAT 12/04/2024 4:25 AM PONY CYLINDER PRESS OPERATOR GLUCOSE - POINT OF CARE Routine 12/04/2024 4:20 AM PONY CYLINDER PRESS OPERATOR GLUCOSE - POINT OF CARE Routine 12/04/2024 2:29 AM PONY CYLINDER PRESS OPERATOR GLUCOSE - POINT OF CARE Routine 12/04/2024 12:51 AM PONY CYLINDER PRESS OPERATOR CREATININE URINE RANDOM STAT 12/04/2024 12:17 AM PONY CYLINDER PRESS OPERATOR LYTES (NA K CL) URINE RANDOM PANEL STAT 12/04/2024 12:17 AM PONY CYLINDER PRESS OPERATOR URINALYSIS REFLEX MICROSCOPIC REFLEX CULTURE STAT 12/04/2024 12:17 AM PONY CYLINDER PRESS OPERATOR GLUCOSE - POINT OF CARE Routine 12/03/2024 11:09 PM PONY CYLINDER PRESS OPERATOR GLUCOSE - POINT OF CARE Routine 12/03/2024 8:33 PM PONY CYLINDER PRESS OPERATOR GLUCOSE - POINT OF CARE Routine 12/03/2024 8:27 PM PONY CYLINDER PRESS OPERATOR CULTURE BLOOD Timed 12/03/2024 6:17 PM PONY CYLINDER PRESS OPERATOR CULTURE BLOOD Timed 12/03/2024 6:12 PM PONY CYLINDER PRESS OPERATOR CT HEAD WO CONTRAST STAT 12/03/2024 4 :56 PM PONY CYLINDER PRESS OPERATOR Altered mental status, unspecified altered mental status type Hepatic cirrhosis, unspecified hepatic cirrhosis type, unspecified whether ascites present (HCC) TROPONIN-I HIGH SENSITIVE REFLEX 1HOUR Timed 12/03/2024 3:26 PM PONY CYLINDER PRESS OPERATOR SARS-COV-2 (COVID-19) FLU A/B RSV PCR RAPID STAT 12/03/2024 12:36 PM PONY CYLINDER PRESS OPERATOR PTT [facility] STAT 12/03/2024 12:35 PM PONY CYLINDER PRESS OPERATOR PT-INR [facility] STAT 12/03/2024 12:35 PM PONY CYLINDER PRESS OPERATOR AMMONIA STAT 12/03/2024 12:35 PM PONY CYLINDER PRESS OPERATOR TROPONIN-I HIGH SENSITIVE BASELINE + 1HR STAT 12/03/2024 12:35 PM PONY CYLINDER PRESS OPERATOR MAGNESIUM BLOOD STAT 12/03/2024 12:35 PM PONY CYLINDER PRESS OPERATOR COMPREHENSIVE METABOLIC PANEL STAT 12/03/2024 12:35 PM PONY CYLINDER PRESS OPERATOR CBC W AUTO DIFFERENTIAL STAT 12/03/2024 12:35 PM PONY CYLINDER PRESS OPERATOR EKG 12-LEAD STAT 12/03/2024 12:21 PM PONY CYLINDER PRESS OPERATOR Altered mental status, unspecified altered mental status type XR CHEST 2VW STAT 12/03/2024 11:24 AM PONY CYLINDER PRESS OPERATOR Altered mental status, unspecified altered mental status type GLUCOSE - POINT OF CARE Routine 11/13/2024 3:43 PM PONY CYLINDER PRESS OPERATOR GLUCOSE - POINT OF CARE Routine 11/13/2024 10:46 AM PONY CYLINDER PRESS OPERATOR GLUCOSE - POINT OF CARE Routine 11/13/2024 8:48 AM PONY CYLINDER PRESS OPERATOR CBC W AUTO DIFFERENTIAL Routine 11/13/2024 7:57 AM PONY CYLINDER PRESS OPERATOR MAGNESIUM BLOOD Routine 11/13/2024 7:57 AM PONY CYLINDER PRESS OPERATOR PHOSPHORUS BLOOD Routine 11/13/2024 7:57 AM PONY CYLINDER PRESS OPERATOR COMPREHENSIVE METABOLIC PANEL Routine 11/13/2024 7:57 AM PONY CYLINDER PRESS OPERATOR GLUCOSE - POINT OF CARE Routine 11/12/2024 8:31 PM PONY CYLINDER PRESS OPERATOR GLUCOSE - POINT OF CARE Routine 11/12/2024 3:43 PM PONY CYLINDER PRESS OPERATOR GLUCOSE - POINT OF CARE Routine 11/12/2024 10:56 AM PONY CYLINDER PRESS OPERATOR CBC W AUTO DIFFERENTIAL Routine 11/12/2024 7:11 AM PONY CYLINDER PRESS OPERATOR MAGNESIUM BLOOD Routine 11/12/2024 7:11 AM PONY CYLINDER PRESS OPERATOR PHOSPHORUS BLOOD Routine 11/12/2024 7:11 AM PONY CYLINDER PRESS OPERATOR COMPREHENSIVE METABOLIC PANEL Routine 11/12/2024 7:11 AM PONY CYLINDER PRESS OPERATOR GLUCOSE - POINT OF CARE Routine 11/12/2024 6:37 AM PONY CYLINDER PRESS OPERATOR GLUCOSE - POINT OF CARE Routine 11/11/2024 8:50 PM PONY CYLINDER PRESS OPERATOR GLUCOSE - POINT OF CARE Routine 11/11/2024 3:10 PM PONY CYLINDER PRESS OPERATOR CARDIAC EKG ORDER 11/11/2024 12: 23 PM PONY CYLINDER PRESS OPERATOR GLUCOSE - POINT OF CARE Routine 11/11/2024 11:44 AM PONY CYLINDER PRESS OPERATOR CBC W AUTO DIFFERENTIAL Routine 11/11/2024 9:07 AM PONY CYLINDER PRESS OPERATOR MAGNESIUM BLOOD Routine 11/11/2024 9:07 AM PONY CYLINDER PRESS OPERATOR PHOSPHORUS BLOOD Routine 11/11/2024 9:07 AM PONY CYLINDER PRESS OPERATOR COMPREHENSIVE METABOLIC PANEL Routine 11/11/2024 9:07 AM PONY CYLINDER PRESS OPERATOR GLUCOSE - POINT OF CARE Routine 11/11/2024 6:56 AM PONY CYLINDER PRESS OPERATOR GLUCOSE - POINT OF CARE Routine 11/10/2024 10:52 PM PONY CYLINDER PRESS OPERATOR GLUCOSE - POINT OF CARE Routine 11/10/2024 4:39 PM PONY CYLINDER PRESS OPERATOR GLUCOSE - POINT OF CARE Routine 11/10/2024 12:25 PM PONY CYLINDER PRESS OPERATOR GLUCOSE - POINT OF CARE Routine 11/10/2024 6:59 AM PONY CYLINDER PRESS OPERATOR CBC W AUTO DIFFERENTIAL Routine 11/10/2024 6:23 AM PONY CYLINDER PRESS OPERATOR MAGNESIUM BLOOD Routine 11/10/2024 6:23 AM PONY CYLINDER PRESS OPERATOR PHOSPHORUS BLOOD Routine 11/10/2024 6:23 AM PONY CYLINDER PRESS OPERATOR COMPREHENSIVE METABOLIC PANEL Routine 11/10/2024 6:23 AM PONY CYLINDER PRESS OPERATOR GLUCOSE - POINT OF CARE Routine 11/10/2024 1:23 AM PONY CYLINDER PRESS OPERATOR GLUCOSE - POINT OF CARE Routine 11/09/2024 5:46 PM PONY CYLINDER PRESS OPERATOR GLUCOSE - POINT OF CARE Routine 11/09/2024 4:10 PM PONY CYLINDER PRESS OPERATOR GLUCOSE - POINT OF CARE Routine 11/09/2024 11:38 AM PONY CYLINDER PRESS OPERATOR CBC W AUTO DIFFERENTIAL Routine 11/09/2024 7:18 AM PONY CYLINDER PRESS OPERATOR MAGNESIUM BLOOD Routine 11/09/2024 7:18 AM PONY CYLINDER PRESS OPERATOR PHOSPHORUS BLOOD Routine 11/09/2024 7:18 AM PONY CYLINDER PRESS OPERATOR COMPREHENSIVE METABOLIC PANEL Routine 11/09/2024 7:18 AM PONY CYLINDER PRESS OPERATOR GLUCOSE - POINT OF CARE Routine 11/09/2024 7:09 AM PONY CYLINDER PRESS OPERATOR GLUCOSE - POINT OF CARE Routine 11/08/2024 9:45 PM PONY CYLINDER PRESS OPERATOR CBC W AUTO DIFFERENTIAL Routine 11/08/2024 5:13 PM PONY CYLINDER PRESS OPERATOR MAGNESIUM BLOOD Routine 11/08/2024 5:13 PM PONY CYLINDER PRESS OPERATOR PHOSPHORUS BLOOD Routine 11/08/2024 5:13 PM PONY CYLINDER PRESS OPERATOR COMPREHENSIVE METABOLIC PANEL Routine 11/08/2024 5:13 PM PONY CYLINDER PRESS OPERATOR GLUCOSE - POINT OF CARE Routine 11/08/2024 4:27 PM PONY CYLINDER PRESS OPERATOR GLUCOSE - POINT OF CARE Routine 11/08/2024 12:04 PM PONY CYLINDER PRESS OPERATOR GLUCOSE - POINT OF CARE Routine 11/08/2024 6:50 AM PONY CYLINDER PRESS OPERATOR GLUCOSE - POINT OF CARE Routine 11/07/2024 9:06 PM PONY CYLINDER PRESS OPERATOR GLUCOSE - POINT OF CARE Routine 11/07/2024 5:02 PM PONY CYLINDER PRESS OPERATOR GLUCOSE - POINT OF CARE Routine 11/07/2024 2:46 PM PONY CYLINDER PRESS OPERATOR HIV-1 HIV-2 ANTIBODY + HIV P24 AG PANEL STAT 11/07/2024 4:27 AM PONY CYLINDER PRESS OPERATOR TSH REFLEX FREE T4 STAT 11/07/2024 4: 27 AM PONY CYLINDER PRESS OPERATOR VITAMIN B12 MICHELLE 11/07/2024 4:27 AM PONY CYLINDER PRESS OPERATOR FOLATE MICHELLE 11/07/2024 4:27 AM PONY CYLINDER PRESS OPERATOR VITAMIN B1 STAT 11/07/2024 4:27 AM PONY CYLINDER PRESS OPERATOR SYPHILIS ANTIBODY CASCADING REFLEX STAT 11/07/2024 4:27 AM PONY CYLINDER PRESS OPERATOR CBC W AUTO DIFFERENTIAL STAT 11/07/2024 4:27 AM PONY CYLINDER PRESS OPERATOR MAGNESIUM BLOOD STAT 11/07/2024 4:27 AM PONY CYLINDER PRESS OPERATOR PHOSPHORUS BLOOD STAT 11/07/2024 4:27 AM PONY CYLINDER PRESS OPERATOR COMPREHENSIVE METABOLIC PANEL STAT 11/07/2024 4:27 AM PONY CYLINDER PRESS OPERATOR GLUCOSE - POINT OF CARE Routine 11/07/2024 12:21 AM PONY CYLINDER PRESS OPERATOR URINALYSIS W/MICROSCOPIC REFLEX TO CULTURE STAT 11/06/2024 11:44 PM PONY CYLINDER PRESS OPERATOR URINE DRUG SCREEN IMMUNOASSAY STAT 11/06/2024 11:43 PM PONY CYLINDER PRESS OPERATOR DIFFERENTIAL MANUAL FLUID STAT 11/06/2024 8:27 PM PONY CYLINDER PRESS OPERATOR PROTEIN BODY FLUID STAT 11/06/2024 8: 27 PM PONY CYLINDER PRESS OPERATOR GLUCOSE BODY FLUID STAT 11/06/2024 8: 27 PM PONY CYLINDER PRESS OPERATOR CELL COUNT W DIFFERENTIAL FLUID STAT 11/06/2024 8:27 PM PONY CYLINDER PRESS OPERATOR HYDROXYBUTYRATE BETA STAT 11/06/2024 8:26 PM PONY CYLINDER PRESS OPERATOR CULTURE FLUID+GRAM STAIN STAT 11/06/2024 8:15 PM PONY CYLINDER PRESS OPERATOR ED PARACENTESIS Routine 11/06/2024 6:28 PM PONY CYLINDER PRESS OPERATOR Encephalopathy, unspecified type Decompensated cirrhosis (HCC) TROPONIN-I HIGH SENSITIVE REFLEX 1HOUR Timed 11/06/2024 4:33 PM PONY CYLINDER PRESS OPERATOR SARS-COV-2 (COVID-19)+INFLU A+B PCR RAPID STAT 11/06/2024 3:40 PM PONY CYLINDER PRESS OPERATOR TROPONIN-I HIGH SENSITIVE BASELINE + 1HR STAT 11/06/2024 3:30 PM PONY CYLINDER PRESS OPERATOR AMMONIA STAT 11/06/2024 3:30 PM PONY CYLINDER PRESS OPERATOR EKG 12-LEAD STAT 11/06/2024 3:17 PM PONY CYLINDER PRESS OPERATOR Encephalopathy, unspecified type CT HEAD WO CONTRAST STAT 11/06/2024 2 :47 PM PONY CYLINDER PRESS OPERATOR Encephalopathy, unspecified type XR CHEST 1VW PORTABLE STAT 11/06/2024 2:29 PM PONY CYLINDER PRESS OPERATOR Encephalopathy, unspecified type LIPASE BLOOD STAT 11/06/2024 12:54 PM PONY CYLINDER PRESS OPERATOR PT-INR [facility] STAT 11/06/2024 12:54 PM PONY CYLINDER PRESS OPERATOR COMPREHENSIVE METABOLIC PANEL STAT 11/06/2024 12:54 PM PONY CYLINDER PRESS OPERATOR CBC W AUTO DIFFERENTIAL STAT 11/06/2024 12:54 PM PONY CYLINDER PRESS OPERATOR NH ESOPHAGUS MOTILITY STUDY 10/31/2024 9:25 AM PONY CYLINDER PRESS OPERATOR Dysphagia, unspecified type GLUCOSE - POINT OF CARE Routine 10/28/2024 10:51 AM PONY CYLINDER PRESS OPERATOR GLUCOSE - POINT OF CARE Routine 10/28/2024 8:12 AM PONY CYLINDER PRESS OPERATOR PT-INR [facility] Routine 10/28/2024 6:14 AM PONY CYLINDER PRESS OPERATOR CBC W/O DIFFERENTIAL Routine 10/28/2024 6:14 AM PONY CYLINDER PRESS OPERATOR PHOSPHORUS BLOOD Routine 10/28/2024 6:14 AM PONY CYLINDER PRESS OPERATOR MAGNESIUM BLOOD Routine 10/28/2024 6:14 AM PONY CYLINDER PRESS OPERATOR COMPREHENSIVE METABOLIC PANEL Routine 10/28/2024 6:14 AM PONY CYLINDER PRESS OPERATOR GLUCOSE - POINT OF CARE Routine 10/27/2024 8:28 PM PONY CYLINDER PRESS OPERATOR GLUCOSE - POINT OF CARE Routine 10/27/2024 4:53 PM PONY CYLINDER PRESS OPERATOR GLUCOSE - POINT OF CARE Routine 10/27/2024 12:17 PM [employer] PRESS OPERATOR PT-INR SLH Routine 10/27/2024 8:18 AM [employer] PR[employer] OPERATOR CBC W/O DIFFERENTIAL Routine 10/27/2024 8:18 AM [employer] PR[employer] OPERATOR PHOSPHORUS BLOOD Routine 10/27/2024 8:18 AM [employer] PR[employer] OPERATOR MAGNESIUM BLOOD Routine 10/27/2024 8:18 AM [employer] PR[employer] OPERATOR COMPREHENSIVE METABOLIC PANEL Routine 10/27/2024 8:18 AM P[employer] PRESS OPERATOR GLUCOSE - POINT OF CARE Routine 10/27/2024 8:01 AM [employer] PRESS OPERATOR GLUCOSE - POINT OF CARE Routine 10/26/2024 9:12 PM [employer] PR[employer] OPERATOR GLUCOSE - POINT OF CARE Routine 10/26/2024 9:14 AM [employer] PR[employer] OPERATOR VITAMIN D 1,25 DIHYDROXY Routine 10/26/2024 4:00 AM [employer] PRESS OPERATOR PT-INR SLH Routine 10/26/2024 4:00 AM [employer] PRESS OPERATOR CBC W/O DIFFERENTIAL Routine 10/26/2024 4:00 AM [employer] PR[employer] OPERATOR PHOSPHORUS BLOOD Routine 10/26/2024 4:00 AM [employer] PR[employer] OPERATOR MAGNESIUM BLOOD Routine 10/26/2024 4:00 AM [employer] PR[employer] OPERATOR COMPREHENSIVE METABOLIC PANEL Routine 10/26/2024 4:00 AM [employer] PR[employer] OPERATOR GLUCOSE - POINT OF CARE Routine 10/25/2024 8:57 PM [employer] PR[employer] OPERATOR GLUCOSE - POINT OF CARE Routine 10/25/2024 4:22 PM [employer] PR[employer] OPERATOR GLUCOSE - POINT OF CARE Routine 10/25/2024 12:17 PM [employer] PR[employer] OPERATOR SODIUM URINE RANDOM Routine 10/25/2024 1 0:40 AM [employer] PR[employer] OPERATOR GLUCOSE - POINT OF CARE Routine 10/25/2024 8:59 AM [employer] PR[employer] OPERATOR US ABDOMEN LTD W COMP DOPPLER Routine 10/25/2024 8:20 AM [employer] PR[employer] OPERATOR Hepatic encephalopathy (HCC) PTH RELATED PEPTIDE AM Draw 10/25/2024 4 :54 AM [employer] PR[employer] OPERATOR LDH BLOOD Routine 10/25/2024 4:54 AM [employer] PR[employer] OPERATOR VITAMIN D 25-HYDROXY AM Draw 10/25/2024 4:54 AM [employer] PR[employer] OPERATOR PTH INTACT W/O CALCIUM AM Draw 4:54 AM [employer] PRESS OPERATOR PT-INR SLH Routine 10/25/2024 4:54 AM [employer] PR[employer] OPERATOR CBC W/O DIFFERENTIAL Routine 10/25/2024 4:54 AM [employer] PR[employer] OPERATOR PHOSPHORUS BLOOD Routine 10/25/2024 4:54 AM [employer] PR[employer] OPERATOR MAGNESIUM BLOOD Routine 10/25/2024 4:54 AM [employer] PR[employer] OPERATOR COMPREHENSIVE METABOLIC PANEL Routine 10/25/2024 4:54 AM [employer] PR[employer] OPERATOR GLUCOSE - POINT OF CARE Routine 10/24/2024 9:28 PM P[employer] PR[employer] OPERATOR GLUCOSE - POINT OF CARE Routine 10/24/2024 5:21 PM P[employer] PR[employer] OPERATOR GLUCOSE - POINT OF CARE Routine 10/24/2024 12:31 PM [employer] PR[employer] OPERATOR CALCIUM IONIZED WHOLE BLOOD AM Draw 10/24/2024 8:47 AM [employer] PR[employer] OPERATOR HEMOGLOBIN A1C Routine 10/24/2024 8:47 AM [employer] PR[employer] OPERATOR PT-INR SLH Routine 10/24/2024 8:47 AM [employer] PR[employer] OPERATOR CBC W/O DIFFERENTIAL Routine 10/24/2024 8:47 AM [employer] PR[employer] OPERATOR PHOSPHORUS BLOOD Routine 10/24/2024 8:47 AM [employer] PR[employer] OPERATOR MAGNESIUM BLOOD Routine 10/24/2024 8:47 AM [employer] PR[employer] OPERATOR COMPREHENSIVE METABOLIC PANEL Routine 10/24/2024 8:47 AM [employer] PR[employer] OPERATOR LACTIC ACID BLOOD AM Draw 10/24/2024 8:4 7 AM [employer]IND[employer] PRESS OPERATOR GLUCOSE - POINT OF CARE Routine 10/24/2024 8:29 AM PONY CYLINDER PRESS OPERATOR GLUCOSE - POINT OF CARE Routine 10/24/2024 6:14 AM PONY CYLINDER PRESS OPERATOR GLUCOSE - POINT OF CARE Routine 10/23/2024 11:50 PM PONY CYLINDER PRESS OPERATOR GLUCOSE - POINT OF CARE Routine 10/23/2024 9:56 PM PONY CYLINDER PRESS OPERATOR GLUCOSE - POINT OF CARE Routine 10/23/2024 9:26 PM PONY CYLINDER PRESS OPERATOR CT HEAD WO CONTRAST STAT 10/23/2024 9 :23 PM PONY CYLINDER PRESS OPERATOR Hepatic encephalopathy (HCC) XR CHEST 1VW PORTABLE STAT 10/23/2024 8:09 PM PONY CYLINDER PRESS OPERATOR Hepatic encephalopathy (HCC) BLOOD GASES REINA + COOX PANEL STAT 10/23/2024 6:25 PM PONY CYLINDER PRESS OPERATOR CULTURE BLOOD Timed 10/23/2024 6:25 PM PONY CYLINDER PRESS OPERATOR HYDROXYBUTYRATE BETA STAT 10/23/2024 6:11 PM PONY CYLINDER PRESS OPERATOR LACTIC ACID BLOOD REFLEX TO REPEAT Timed STAT 10/23/2024 6:11 PM PONY CYLINDER PRESS OPERATOR CULTURE BLOOD Timed 10/23/2024 6:11 PM PONY CYLINDER PRESS OPERATOR DIFFERENTIAL MANUAL FLUID STAT 10/23/2024 5:27 PM P[employer]Y CYLINDER PRESS OPERATOR CELL COUNT W DIFFERENTIAL FLUID STAT 10/23/2024 5:27 PM PONY CYLINDER PRESS OPERATOR CULTURE FLUID+GRAM STAIN STAT 10/23/2024 5:27 PM PONY CYLINDER PRESS OPERATOR ED PARACENTESIS Routine 10/23/2024 4:59 PM PONY CYLINDER PRESS OPERATOR LACTIC ACID BLOOD REFLEX TO REPEAT Timed STAT 10/23/2024 3:09 PM PONY CYLINDER PRESS OPERATOR URINALYSIS W/MICROSCOPIC REFLEX TO CULTURE STAT 10/23/2024 3:09 PM PONY CYLINDER PRESS OPERATOR MAGNESIUM BLOOD STAT 10/23/2024 12:54 PM PONY CYLINDER PRESS OPERATOR AMMONIA STAT 10/23/2024 12:54 PM PONY CYLINDER PRESS OPERATOR LACTIC ACID BLOOD REFLEX TO REPEAT STAT 10/23/2024 12:54 PM PONY CYLINDER PRESS OPERATOR PT-INR [facility] STAT 10/23/2024 12:54 PM PONY CYLINDER PRESS OPERATOR COMPREHENSIVE METABOLIC PANEL STAT 10/23/2024 12:54 PM PONY CYLINDER PRESS OPERATOR CBC W AUTO DIFFERENTIAL STAT 10/23/2024 12:54 PM PONY CYLINDER PRESS OPERATOR GLUCOSE - POINT OF CARE Routine 09/30/2024 11:54 AM PONY CYLINDER PRESS OPERATOR GLUCOSE - POINT OF CARE Routine 09/30/2024 7:54 AM PONY CYLINDER PRESS OPERATOR COMPREHENSIVE METABOLIC PANEL AM Draw 09/30/2024 12:21 AM PONY CYLINDER PRESS OPERATOR CBC W AUTO DIFFERENTIAL Routine 09/30/2024 12:21 AM P[employer]Y CYLINDER PRESS OPERATOR MAGNESIUM BLOOD Routine 09/30/2024 12:21 AM P[employer]Y CYLINDER PRESS OPERATOR PHOSPHORUS BLOOD Routine 09/30/2024 12:2 1 AM P[employer]Y CYLINDER PRESS OPERATOR GLUCOSE - POINT OF CARE Routine 09/29/2024 9:06 PM PONY CYLINDER PRESS OPERATOR GLUCOSE - POINT OF CARE Routine 09/29/2024 5:49 PM PONY CYLINDER PRESS OPERATOR GLUCOSE - POINT OF CARE Routine 09/29/2024 11:56 AM PONY CYLINDER PRESS OPERATOR GLUCOSE - POINT OF CARE Routine 09/29/2024 8:39 AM PONY CYLINDER PRESS OPERATOR COMPREHENSIVE METABOLIC PANEL AM Draw 09/29/2024 6:03 AM PONY CYLINDER PRESS OPERATOR CBC W AUTO DIFFERENTIAL Routine 09/29/2024 6:03 AM PONY CYLINDER PRESS OPERATOR MAGNESIUM BLOOD Routine 09/29/2024 6:03 AM PONY CYLINDER PRESS OPERATOR PHOSPHORUS BLOOD Routine 09/29/2024 6:03 AM PONY CYLINDER PRESS OPERATOR GLUCOSE - POINT OF CARE Routine 09/28/2024 8:37 PM PONY CYLINDER PRESS OPERATOR GLUCOSE - POINT OF CARE Routine 09/28/2024 6:42 PM PONY CYLINDER PRESS OPERATOR URINALYSIS REFLEX MICROSCOPIC REFLEX CULTURE STAT 09/28/2024 4:48 PM PONY CYLINDER PRESS OPERATOR AMMONIA STAT 09/28/2024 11:53 AM PONY CYLINDER PRESS OPERATOR PT-INR [facility] STAT 09/28/2024 11:53 AM PONY CYLINDER PRESS OPERATOR MAGNESIUM BLOOD STAT 09/28/2024 11:53 AM PONY CYLINDER PRESS OPERATOR COMPREHENSIVE METABOLIC PANEL STAT 09/28/2024 11:53 AM PONY CYLINDER PRESS OPERATOR CBC W AUTO DIFFERENTIAL STAT 09/28/2024 11:53 AM PONY CYLINDER PRESS OPERATOR from Last 3 Months Results * (ABNORMAL) GLUCOSE - POINT OF CARE (12/08/2024 12:03 PM PONY CYLINDER PRESS OPERATOR) Only the most recent of98 resultswithin the time period is included. Glucose WB/POC 246(H) 70 - 99 mg/dL 12/08/2024 12:03 PM PONY CYLINDER PRESS OPERATOR [facility] Specimen Type Cap Fingerstick 2024 12:03 PM PONY CYLINDER PRESS OPERATOR [facility] Blood BLOOD SPECIMEN / Unknown 12/08/2024 12:03 PM PONY CYLINDER PRESS OPERATOR 12/08/2024 12:03 PM PONY CYLINDER PRESS OPERATOR Darek Teran MD LAB - POINT OF CARE ORDERABLES [facility] [address] [place] [address], [facility] [phone] * (ABNORMAL) CBC W AUTO DIFFERENTIAL (12/08/2024 5:06 AM [facility]) Only the most recent of18 resultswithin the time period is included. WBC 3.6(L) 4.0 - 10.7 x10E9/L 12/08/2024 5:38 AM [facility] RBC Count 2.38(L) 4.30 - 5.80 x10E12/L 12/08/2024 5:38 AM [facility] Hemoglobin 7.6(L) 13.3 - 17.5 g/dL 12/08/2024 5:38 AM [facility] Hematocrit 22.2(L) 38.7 - 51.1 % 12/08/2024 5:38 AM [facility] MCV 93.3 80.0 - 98.0 fL 12/08/2024 5:38 AM [facility] MCH 31.9 26.7 - 33.6 pg 12/08/2024 5:38 AM [facility] MCHC 34.2 31.7 - 36.3 g/dL 12/08/2024 5:38 AM [facility] RDW-CV 17.2(H) 11.3 - 14.8 % 12/08/2024 5:38 AM [facility] Platelet Count 121(L) 150 - 420 x10E9/L 12/08/2024 5:38 AM [facility] MPV 11.1 7.8 - 11.4 fL 12/08/2024 5:38 AM [facility] Neutrophil % 76.9(H) 41.0 - 74.0 % 12/08/2024 5:38 AM [facility] Lymphocyte % 7.2(L) 17.0 - 47.0 % 12/08/2024 5:38 AM [facility] Monocyte % 10.9 3.0 - 11.0 % 12/08/2024 5:38 AM [facility] Eosinophil % 3.9 0.0 - 7.0 % 12/08/2024 5:38 AM [facility] Basophil % 0.3 0.0 - 1.6 % 12/08/2024 5:38 AM [facility] Immature Granulocytes % 0.8 0.0 - 1.0 % 12/08/2024 5:38 AM [facility] Neutrophil Absolute 2.76 1.60 - 7.50 x10E9/L 12/08/2024 5:38 AM [facility] Lymphocyte Absolute 0.26(L) 1.00 - 4.40 x10E9/L 12/08/2024 5:38 AM [facility] Monocyte Absolute 0.39 0.15 - 1.00 x10E9/L 12/08/2024 5:38 AM [facility] Eosinophil Absolute 0.14 0.00 - 0.60 x10E9/L 12/08/2024 5:38 AM [facility] Basophil Absolute 0.01 0.00 - 0.13 x10E9/L 12/08/2024 5:38 AM [facility] Blood BLOOD SPECIMEN / Unknown Venipuncture / Unknown 12/08/2024 5:06 AM [facility] 12/08/2024 5:20 AM [facility] Juancarlos Lujan MD LAB - HEMATOLOGY ORD ERABLES Performing Organization Address City/State/[facility] Co de Phone Number [address] [address], [facility] [phone] * (ABNORMAL) COMPREHENSIVE METABOLIC PANEL (12/08/2024 5:06 AM [facility]) Only the most recent of23 resultswithin the time period is included. BUN 27(H) 7 - 26 mg/dL 12/08/2024 5:56 AM [facility] Creatinine 1.28(H) 0.71 - 1.16 mg/dL 12/08/2024 5:56 AM [facility] Sodium 136 136 - 145 mmol/L 12/08/2024 5:56 AM [facility] Potassium 3.7 3.5 - 4.5 mmol/L 12/08/2024 5:56 AM [facility] Chloride 110(H) 98 - 107 mmol/L 12/08/2024 5:56 AM [facility] CO2 16(L) 22 - 29 mmol/L 12/08/2024 5:56 AM [facility] Glucose 171(H) 70 - 99 mg/dL 12/08/2024 5:56 AM [facility] Calcium 9.5 8.4 - 10.2 mg/dL 12/08/2024 5:56 AM [facility] Protein Total 5.9(L) 6.0 - 8.3 g/dL 12/08/2024 5:56 AM [facility] Albumin 2.7(L) 3.4 - 5.0 g/dL 12/08/2024 5:56 AM [facility] Bilirubin Total 0.9 0.2 - 1.2 mg/dL 12/08/2024 5:56 AM [facility] Alkaline Phosphatase 251(H) 40 - 150 U/L 12/08/2024 5:56 AM [facility] ALT 31 5 - 55 U/L 12/08/2024 5:56 AM [facility] AST 27 5 - 34 U/L 12/08/2024 5:56 AM [facility] Anion Gap 10 6 - 16 12/08/2024 5:56 AM [facility] BUN/Creatinine Ratio 21 7 - 23 12/08/2024 5:56 AM [facility] Osmolality Calculated 291 275 - 295 mOsm/kg 12/08/2024 5:56 AM [facility] Albumin/Globulin Ratio 0.8(L) 1.1 - 2.3 12/08/2024 5:56 AM [facility] eGFR by CKD-EPI 57(L) >=90 mL/min/1.7 3 m2 12/08/2024 5:56 AM [facility] Blood BLOOD SPECIMEN / Unknown Venipuncture / Unknown 12/08/2024 5:06 AM [facility] 12/08/2024 5:28 AM PON[employer] CYLINDER PRESS OPERATOR Juancarlos Lujan MD LAB - CHEMISTRY JOHN PAUL RIVAS Performing Organization Address City/[facility]/ZIP Co de Phone Number [address] [address], [facility] [phone] * (ABNORMAL) PHOSPHORUS BLOOD (12/08/2024 5:06 AM PONY CYLINDER PRESS OPERATOR) Only the most recent of19 resultswithin the time period is included. Phosphorus 1.9(L) 2.8 - 5.1 mg/dL 12/08/2024 5:56 AM [facility] Blood BLOOD SPECIMEN / Unknown Venipuncture / Unknown 12/08/2024 5:06 AM P[employer] CYLINDER PRESS OPERATOR 12/08/2024 5:28 AM PONY CYLINDER PRESS OPERATOR Juancarlos Lujan MD LAB - CHEMISTRY JOHN PAUL RIVAS Performing Organization Address [facility] Co de Phone Number [address] [address], [facility] [phone] * MAGNESIUM BLOOD (12/08/2024 5:06 AM PONY CYLINDER PRESS OPERATOR) Only the most recent of22 resultswithin the time period is included. Magnesium 2.1 1.6 - 2.6 mg/dL 12/08/2024 5:56 AM [facility] Blood BLOOD SPECIMEN / Unknown Venipuncture / Unknown 12/08/2024 5:06 AM PONY CYLINDER PRESS OPERATOR 12/08/2024 5:28 AM PONY CYLINDER PRESS OPERATOR Juancarlos Lujan MD LAB - CHEMISTRY JOHN PAUL RIVAS Performing Organization Address [facility]/ZIP Co de Phone Number [address] [address], [place] [phone] * IGF BINDING PROTEIN 1 (12/06/2024 5:39 AM PONY CYLINDER PRESS OPERATOR) IGF Binding Protein-1 19 5 - 34 ng/mL 12/17/2024 3:04 AM [facility] ([facility]) Comment: The limit of detection of this assay is 5 ng/mL. A proportion of normal patients will have results less than 5 ng/mL. This test was developed and its analytical performance characteristics have been determined by [facility]. It has not been cleared or approved by FDA. This assay has been validated pursuant to the CLIA regulations and is used for clinical purposes. Performed by: [facility] [address] [place] [address] Catie Pope MD, PhD, JIMMY, Blood BLOOD SPECIMEN / Unknown Lab Venipuncture / Unknown 12/06/2024 5:39 AM P[employer]Y CYLINDER PRESS OPERATOR 12/06/2024 5:58 AM P[employer]Y CYLINDER PRESS OPERATOR Juancarlos Lujan MD LAB - CHEMISTRY JOHN PAUL RIVAS Performing Organization Address [facility] Co de Phone Number [employer] Peak Rx #2 [facility]) [address] [place] [address] * INSULIN LIKE GROWTH FACTOR 2 (12/06/2024 5:39 AM PONY CYLINDER PRESS OPERATOR) [facility] INSULIN-LIKE GROWTH FACTOR (IGF-2) 156 ng/mL 12/09/2024 1:29 PM PONY CYLINDER PRESS OPERATOR [facility] ([facility]) Comment: INTERPRETIVE INFORMATION: Insulin-Like Growth Factor 2 Prepubertal (0-11 years old): 127 to 473 ng/mL Postpubertal (12 years and older): 180 to 580 ng/mL This test was developed and its performance characteristics determined by [facility]. It has not been cleared or approved by the US Food and Drug Administration. This test was performed in a CLIA certified laboratory and is intended for clinical purposes. Performed By: [facility] [address] [place] [address] [employer] Grinding Machine Feeder: Armando Lowe MD, PhD CLIA Number: [id number] Blood BLOOD SPECIMEN / Unknown Lab Venipuncture / Unknown 12/06/2024 5:39 AM PONY CYLINDER PRESS OPERATOR 12/06/2024 5:58 AM P[employer]Y CYLINDER PRESS OPERATOR Juancarlos Luajn MD LAB - CHEMISTRY JOHN PAUL RIVAS Performing Organization Address [facility]/ZIP Co de Phone Number [facility]) [address] [place] [address] * INSULIN FREE + TOTAL (12/06/2024 5:39 AM PONY CYLINDER PRESS OPERATOR) Only the most recent of2 resultswithin the time period is included. Pathologist [facility] Insulin Free 9 3 - 25 uIU/mL 12/10/2024 9:36 AM PONY CYLINDER PRESS OPERATOR [facility] ([facility]) Insulin 11 3 - 25 uIU/mL 12/10/2024 9:36 AM PONY CYLINDER PRESS OPERATOR [facility] ([facility]) Comment: INTERPRETIVE INFORMATION: Insulin, Free and Total This test reacts on a nearly equimolar basis with the analogs insulin aspart, insulin glargine, and insulin lispro. Insulin detemir exhibits approximately 50 percent cross-reactivity. Test reactivity with insulin glulisine is negligible (<3 percent). To convert to pmol/L, multiply uIU/mL by 6.0. Reference intervals established for fasting specimens. Performed By: [facility] [address] [place] [address] [employer] Pad Grinding Machine Feeder: Armando Lowe MD, PhD CLIA Number: [id number] Blood BLOOD SPECIMEN / Unknown Lab Venipuncture / Unknown 12/06/2024 5:39 AM PONY CYLINDER PRESS OPERATOR 12/06/2024 5:58 AM PONY CYLINDER PRESS OPERATOR Juancarlos Lujan MD LAB - CHEMISTRY ORDUlysses RIVAS [facility] Peak Rx #2 [facility]) [address] * (ABNORMAL) C-PEPTIDE (12/06/2024 5:39 AM PONY CYLINDER PRESS OPERATOR) Only the most recent of2 resultswithin the time period is included. Pathologist [facility] C-Peptide 6.9(H) 0.5 - 3.3 ng/mL 12/08/2024 9:16 PM PONY CYLINDER PRESS OPERATOR [facility] ([facility]) Comment: INTERPRETIVE INFORMATION: Serum, C-Peptide Reference Interval applies to fasting specimens. To convert to nmol/L, multiply by 0.33 Performed By: [facility] [address] [place] [address] [employer] Pad Grinding Machine Feeder: Armando Lowe MD, PhD CLIA Number: [id number] Blood BLOOD SPECIMEN / Unknown Lab Venipuncture / Unknown 12/06/2024 5:39 AM PONY CYLINDER PRESS OPERATOR 12/06/2024 5:58 AM PONY CYLINDER PRESS OPERATOR Juancarlos Lujan MD LAB - CHEMISTRY JOHN PAUL RIVAS Performing Organization Address City/[facility]/ZIP Co de Phone Number [facility] Peak Rx #2 [facility]) [address] [place] [address] * (ABNORMAL) PROINSULIN (12/06/2024 5:39 AM PONY CYLINDER PRESS OPERATOR) Only the most recent of2 resultswithin the time period is included. Proinsulin 10.1(H) <=7.2 pmol/L 12/10/2024 7:21 AM PONY CYLINDER PRESS OPERATOR [facility] ([facility]) Comment: Performed By: [facility] [address] [place] [address] [employer] Pad Grinding Machine Feeder: Armando Lowe MD, PhD CLIA Number: [id number] Blood BLOOD SPECIMEN / Unknown Lab Venipuncture / Unknown 12/06/2024 5:39 AM PONY CYLINDER PRESS OPERATOR 12/06/2024 5:58 AM PONY CYLINDER PRESS OPERATOR Juancarlos Lujan MD LAB - CHEMISTRY JOHN PAUL RIVAS Performing Organization Address [facility] Co de Phone Number [facility] ([facility]) [address] [place] [address] * HYDROXYBUTYRATE BETA (12/06/2024 5:39 AM PONY CYLINDER PRESS OPERATOR) Only the most recent of3 resultswithin the time period is included. Beta-Hydroxybu tyrate <0.50 <0.50 mmol/L 12/06/2024 6:29 AM PONY CYLINDER PRESS OPERATOR [facility] Blood BLOOD SPECIMEN / Unknown Lab Venipuncture / Unknown 12/06/2024 5:39 AM PONY CYLINDER PRESS OPERATOR 12/06/2024 6:02 AM PONY CYLINDER PRESS OPERATOR Juancarlos Lujan MD LAB - CHEMISTRY JOHN PAUL RIVAS [address] [address], [facility] [phone] * CORTISOL BLOOD AM (12/06/2024 5:39 AM PONY CYLINDER PRESS OPERATOR) Cortisol AM 11.6 3.7 - 19.4 ug/dL 12/06/2024 6:47 AM PONY CYLINDER PRESS OPERATOR [facility] Blood BLOOD SPECIMEN / Unknown Lab Venipuncture / Unknown 12/06/2024 5:39 AM PONY CYLINDER PRESS OPERATOR 12/06/2024 6:02 AM PONY CYLINDER PRESS OPERATOR Narrative [facility] - 12/06/2024 6:47 AM PONY CYLINDER PRESS OPERATOR Normal cortisol levels are generally highest in the morning hours and lowest from late evening through the dietitian 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 The PM measurements of cortisol run approximately one-half to one-third of the AM values. Juancarlos Lujan MD LAB - CHEMISTRY JOHN PAUL RIVAS [address] [address], [facility] [phone] * US Abdomen Limited (12/04/2024 11:40 AM PONY CYLINDER PRESS OPERATOR) Anatomical Region Laterality Modality Abdomen Ultrasound 12/04/2024 11:4 9 AM PONY CYLINDER PRESS OPERATOR Impressions 12/04/2024 1:29 PM PONY CYLINDER PRESS OPERATOR IMPRESSION: 1. Hepatic cirrhosis with sequela of portal hypertension including moderate volume ascites. 2. No cholelithiasis. 3. Moderate to large volume ascites. > Interpreting Provider: Patsy Orellana MD on 12/04/2024 1:29 PM Narrative 12/04/2024 1:29 PM PONY CYLINDER PRESS OPERATOR PROCEDURE: US ABDOMEN LIMITED DATE/TIME OF EXAM: 12/04/2024 11:40 AM CLINICAL INFORMATION: None relevant/not provided if blank. Indication: K74.60: Hepatic cirrhosis, unspecified hepatic cirrhosis type, unspecified whether ascites present (HCC) Additional History: COMPARISON: Ultrasound from 10/25/2024 TECHNIQUE: Real-time ultrasound of the upper abdomen with DICOM image capture performed by arrt technologist. FINDINGS: The liver is coarse in [...] abdomen with DICOM image capture performed by arrt technologist. FINDINGS: The liver is coarse in [...] * CARDIAC EKG ORDER (12/04/2024 11:29 AM PONY CYLINDER PRESS OPERATOR) Only the most recent of2 resultswithin the time period is included. Narrative 12/04/2024 11:29 AM PONY CYLINDER PRESS OPERATOR Ordered by an unspecified provider. Scanned Document CARDIAC SERVICES ORD ERABLES * UREA NITROGEN URINE RANDOM (12/04/2024 9:39 AM PONY CYLINDER PRESS OPERATOR) Urea Nitrogen Random Urine 361 Not Established mg/dL 12/04/2024 11:02 AM PONY CYLINDER PRESS OPERATOR [facility] Urine URINE SPECIMEN OBTAINED BY CLEAN CATCH PROCEDURE / Unknown Collection / Unknown 12/04/2024 9:39 AM PONY CYLINDER PRESS OPERATOR 12/04/2024 10:13 AM PONY CYLINDER PRESS OPERATOR Narrative Authorizing Provider Result Vanna Lujan MD LAB - URINE CHEMISTR Y ORDERABLES Performing Organization Address City/[facility]/ZIP Co de Phone Number [address] [address], [facility] [phone] * FOLATE (12/04/2024 9:38 AM PONY CYLINDER PRESS OPERATOR) Only the most recent of2 resultswithin the time period is included. Folate 10.1 7.0 - 31.4 ng/mL 12/04/2024 11:27 AM PONY CYLINDER PRESS OPERATOR [facility] Blood BLOOD SPECIMEN / Unknown Venipuncture / Unknown 12/04/2024 9:38 AM PONY CYLINDER PRESS OPERATOR 12/04/2024 10:14 AM PONY CYLINDER PRESS OPERATOR Juancarlos Lujan MD LAB - CHEMISTRY JOHN PAUL RIVAS Performing Organization Address [facility] Co de Phone Number [address] [address], [place] [phone] * (ABNORMAL) VITAMIN B12 (12/04/2024 9:38 AM PONY CYLINDER PRESS OPERATOR) Only the most recent of2 resultswithin the time period is included. Vitamin B12 1,880(H) 213 - 816 pg/mL 12/04/2024 11:27 AM PONY CYLINDER PRESS OPERATOR [facility] Blood BLOOD SPECIMEN / Unknown Venipuncture / Unknown 12/04/2024 9:38 AM PONY CYLINDER PRESS OPERATOR 12/04/2024 10:14 AM PONY CYLINDER PRESS OPERATOR Narrative Authorizing Provider Result Vanna Lujan MD LAB - CHEMISTRY JOHN PAUL RIVAS Performing Organization Address [facility]/ZIP Co de Phone Number [address] [address], [place] [phone] * (ABNORMAL) IRON + TRANSFERRIN PANEL (12/04/2024 9:38 AM PONY CYLINDER PRESS OPERATOR) Iron 64 50 - 175 ug/dL 12/04/2024 10:48 AM [facility] Transferrin 150(L) 174 - 382 mg/dL 12/04/2024 10:48 AM [facility] Transferrin Saturation % 34 16 - 50 % 12/04/2024 10:48 AM [facility] TIBC Calculated 188(L) 240 - 450 ug/dL 12/04/2024 10:48 AM [facility] Blood BLOOD SPECIMEN / Unknown Venipuncture / Unknown 12/04/2024 9:38 AM PONY CYLINDER PRESS OPERATOR 12/04/2024 10:15 AM PONY CYLINDER PRESS OPERATOR Juancarlos Lujan MD LAB - CHEMISTRY JOHN PAUL RIVAS [address] [address], [facility] [phone] * (ABNORMAL) FERRITIN (12/04/2024 9:38 AM PONY CYLINDER PRESS OPERATOR) Ferritin 339(H) 22 - 275 ng/mL 12/04/2024 11:05 AM [facility] Blood BLOOD SPECIMEN / Unknown Venipuncture / Unknown 12/04/2024 9:38 AM PONY CYLINDER PRESS OPERATOR 12/04/2024 10:15 AM PONY CYLINDER PRESS OPERATOR Juancarlos Lujan MD LAB - CHEMISTRY ORDUlysses RIVAS Performing Organization Address City/[facility]/ZIP Co de Phone Number [address] [address], [place] [phone] * (ABNORMAL) URINALYSIS REFLEX MICROSCOPIC REFLEX CULTURE (12/04/2024 12:17 AM PONY CYLINDER PRESS OPERATOR) Only the most recent of2 resultswithin the time period is included. Color UA Yellow Straw, Yellow 12/04/2024 12:33 AM [facility] Clarity UA Clear Clear 12/04/2024 12:33 AM [facility] Specific [place] UA 1.010 1.005 - 1.030 12/04/2024 12:33 AM [facility] pH UA 5.0 5.0 - 8.0 pH 12/04/2024 12:33 AM [facility] Protein UA Negative Negative 12/04/2024 12:33 AM [facility] Glucose UA 1+(A) Negative 12/04/2024 12:33 AM [facility] Ketone UA Negative Negative 12/04/2024 12:33 AM [facility] Bilirubin UA Negative Negative 12/04/2024 12:33 AM [facility] Blood UA Negative Negative 12/04/2024 12:33 AM [facility] Nitrite UA Negative Negative 12/04/2024 12:33 AM [facility] Leukocyte Esterase Negative Negative 12/04/2024 12:33 AM [facility] Urobilinogen UA Negative Negative mg/dL 12/04/2024 12:33 AM [facility] Comment UA Microscopic not indicated. 12/04/2024 12:33 AM [facility] Urine URINE SPECIMEN OBTAINED BY CLEAN CATCH PROCEDURE / Unknown Collection / Unknown 12/04/2024 12:17 AM [facility] [employer] 12/04/2024 12:22 AM [facility] [employer] Narrative [facility] - 12/04/2024 12:33 AM [facility] [employer] Sarika Martin PA-C LAB - URINALY SIS ORDERABLES [facility] [address] [id number], [facility] [phone] * LYTES (NA K CL) URINE RANDOM PANEL (12/04/2024 12:17 AM [facility] [employer]) Sodium Urine 52 Not Established mmol/L 12/04/2024 12:47 AM [facility] Potassium Urine 22.9 Not Established mmol/L 12/04/2024 12:47 AM [facility] Chloride Random Urine 82 Not Established mmol/L 12/04/2024 12:47 AM [facility] Urine URINE SPECIMEN OBTAINED BY CLEAN CATCH PROCEDURE / Unknown Collection / Unknown 12/04/2024 12:17 AM [facility] [employer] 12/04/2024 12:22 AM [facility] [employer] Juancarlos Lujan MD LAB - URINE CHEMISTR Y ORDERABLES [address] [id number], [facility] [phone] * CREATININE URINE RANDOM (12/04/2024 12:17 AM [facility] [employer]) Creatinine Urine 55.70 Not Established mg/dL 12/04/2024 12:47 AM [facility] [employer] [facility] Urine URINE SPECIMEN OBTAINED BY CLEAN CATCH PROCEDURE / Unknown Collection / Unknown 12/04/2024 12:17 AM [facility] CYLINDER PRESS OPERATOR 12/04/2024 12:22 AM PONY CYLINDER PRESS OPERATOR Juancarlos Lujan MD LAB - URINE CHEMISTR Y ORDERABLES Performing Organization Address City/[facility]/ZIP Co de Phone Number [address] [address], [facility] [phone] * CULTURE BLOOD (12/03/2024 6:17 PM PONY CYLINDER PRESS OPERATOR) Only the most recent of4 resultswithin the time period is included. Culture No growth day 5 ADOLPH 12/08/2024 11:01 PM PONY CYLINDER PRESS OPERATOR [facility] MICRO[facility]OLOG[facility] Blood PERIPHERAL BLOOD / Unknown Lab Venipuncture / Unknown 12/03/2024 6:17 PM PONY CYLINDER PRESS OPERATOR 12/03/2024 6:39 PM PONY CYLINDER PRESS OPERATOR Homer Moran MD LAB - MICROBIO LOGY ORDERABLES Performing Organization Address City/[facility]/ZIP Co de Phone Number [facility]CROBIOLOG[facility] [address] [place] [address], [facility] [phone] * CT Head Wo Contrast (12/03/2024 4:56 PM PONY CYLINDER PRESS OPERATOR) Only the most recent of3 resultswithin the time period is included. Anatomical Region Laterality Modality Head Computed Tomogra phy 12/03/2024 5:00 PM PONY CYLINDER PRESS OPERATOR Impressions 12/03/2024 5:01 PM PONY CYLINDER PRESS OPERATOR IMPRESSION: 1. No acute intracranial process. > Interpreting Provider: Abraham Mahajan MD on 12/03/2024 5:01 PM Narrative 12/03/2024 5:01 PM PONY CYLINDER PRESS OPERATOR PROCEDURE: CT HEAD WO CONTRAST DATE/TIME OF [...] extra-axial fluid collections are identified. There is ugew-vo-ijvomerm cerebral volume loss with associated ex vacuo [...] or extra-axial fluid collections are identified. Thereis snjm-ef-hyjcatyb cerebral volume loss with associated ex vacuoventricular [...] HIGH SENSITIVE REFLEX 1HOUR (12/03/2024 3:26 PM PONY CYLINDER PRESS OPERATOR) Only the most recent of2 resultswithin the time period is included. [facility] Troponin I High Sensitive 11 <=35 ng/L 12/03/2024 4:33 PM PONY CYLINDER PRESS OPERATOR [facility] Delta Troponin I HS 12/03/2024 4:33 PM PONY CYLINDER PRESS OPERATOR [facility] Comment:Delta value intentio santy not calculated. Baseline to 1 hour specimen collection interval exceeded. Blood BLOOD SPECIMEN / Unknown Venipuncture / Unknown 12/03/2024 3:26 PM PONY CYLINDER PRESS OPERATOR 12/03/2024 3:56 PM PONY CYLINDER PRESS OPERATOR Sarika Martin PA-C LAB - MAINTENANCE ASSOCIATE RY ORDERABLES [facility] [address] [place] [address], [facility] [phone] * SARS-COV-2 (COVID-19) FLU A/B RSV PCR RAPID (12/03/2024 12:36 PM PONY CYLINDER PRESS OPERATOR) [facility] COVID-19 PCR Not detected Not detected 12/03/19 1:56 PM PONY CYLINDER PRESS OPERATOR [facility] Influenza A PCR Not detected Not detected 12/03/2024 1:56 PM PONY CYLINDER PRESS OPERATOR [facility] Influenza B PCR Not detected Not detected 12/03/2024 1:56 PM PONY CYLINDER PRESS OPERATOR [facility] RSV PCR Not detected Not detected 12/03/2024 1:56 PM PONY CYLINDER PRESS OPERATOR [facility] Microbiology SPECIMEN FROM NASOPHARYNGEAL STRUCTURE / Unknown Collection / Unknown 12/03/2024 12:36 PM PONY CYLINDER PRESS OPERATOR 12/03/2024 12:40 PM PONY CYLINDER PRESS OPERATOR Narrative [facility] - 12/03/2024 1:56 PM PONY CYLINDER PRESS OPERATOR This nucleic acid amplification assay has been [...] Sarika GALVIN-C LAB - MICROBI OLOGY ORDERABLES [address] [address], [facility] [phone] * PTT [facility] (12/03/2024 12:35 PM PONY CYLINDER PRESS OPERATOR) APTT 26.4 23.0 - 38.4 Seconds 12/03/2024 1:06 PM PONY CYLINDER PRESS OPERATOR [facility] Comment:Suggested therapeuti c range for full dose I.V. unfractionated heparin therapy for venous thromboembolism is 71 to 109 seconds. Blood BLOOD SPECIMEN / Unknown Venipuncture / Unknown 12/03/2024 12:35 PM PONY CYLINDER PRESS OPERATOR 12/03/2024 12:43 PM PONY CYLINDER PRESS OPERATOR Sarika Carvajalbeth [employer] PA-C LAB - COAGULA TION ORDERABLES [address] [address], [place] [phone] * PT-INR [facility] (12/03/2024 12:35 PM PONY CYLINDER PRESS OPERATOR) Only the most recent of9 resultswithin the time period is included. PT 14.7 12.1 - 14.8 Seconds 12/03/2024 1:06 PM PONY CYLINDER PRESS OPERATOR [facility] INR 1.2 See Comment 12/03/2024 1:06 PM PONY CYLINDER PRESS OPERATOR [facility] Comment:The suggested therap eutic range for standard coumadin (warfarin) therapy is an INR of 2.0-3.0. For high-risk patients (Mechanical Mitral Valve Prosthesis, etc.), the suggested prophylactic therapeutic range is an INR of 2.5-3.5. Blood BLOOD SPECIMEN / Unknown Venipuncture / Unknown 12/03/2024 12:35 PM PONY CYLINDER PRESS OPERATOR 12/03/2024 12:43 PM PONY CYLINDER PRESS OPERATOR Sarika Martin PA-C LAB - COAGULA TION ORDERABLES Performing Organization Address City/[facility]/ZIP Co de Phone Number [address] [address], [facility] [phone] * TROPONIN-I HIGH SENSITIVE BASELINE + 1HR (12/03/2024 12:35 PM PONY CYLINDER PRESS OPERATOR) Only the most recent of2 resultswithin the time period is included. Troponin I High Sensitive 11 <=35 ng/L 12/03/2024 1:15 PM PONY CYLINDER PRESS OPERATOR [facility] Blood BLOOD SPECIMEN / Unknown Venipuncture / Unknown 12/03/2024 12:35 PM PONY CYLINDER PRESS OPERATOR 12/03/2024 12:42 PM PONY CYLINDER PRESS OPERATOR Sarika Martin PA-C LAB - MAINTENANCE ASSOCIATE RY ORDERABLES [address] [address], [facility] [phone] * AMMONIA (12/03/2024 12:35 PM PONY CYLINDER PRESS OPERATOR) Only the most recent of4 resultswithin the time period is included. Ammonia 51 <=72 umol/L 12/03/2024 12:55 PM PONY CYLINDER PRESS OPERATOR [facility] Blood BLOOD SPECIMEN / Unknown Venipuncture / Unknown 12/03/2024 12:35 PM PONY CYLINDER PRESS OPERATOR 12/03/2024 12:55 PM PONY CYLINDER PRESS OPERATOR Sarika Martin PA-C LAB - MAINTENANCE ASSOCIATE RY ORDERABLES Performing Organization Address [facility]/ZIP Co de Phone Number [facility] [place] [id number] [place] [address], [facility] [phone] * EKG 12-LEAD (12/03/2024 12:21 PM PONY CYLINDER PRESS OPERATOR) Only the most recent of2 resultswithin the time period is included. Ventricular Rate 66 BPM [facility] MUSE Atrial Rate 66 BPM [facility] MUSE P-R Interval 110 ms [facility] MUSE QRS Duration ms 86 ms [facility] MUSE Q-T Interval ms 378 ms [facility] MUSE QTC Calculation (Bezet) 396 ms [facility] MUSE Calculated P [place] 15 degrees [facility] MUSE Calculated T [place] 85 degrees [facility] MUSE Interpretation EKG SINUS RHYTHM POSSIBLE INFERIOR INFARCT , AGE UNDETERMINED ANTERIOR INFARCT (CITED ON OR BEFORE 30-AUG-2024) ABNORMAL ECG WHEN COMPARED WITH ECG OF 06-NOV-2024 15:17, BORDERLINE CRITERIA FOR INFERIOR INFARCT ARE NOW PRESENT Confirmed by [facility] ([id number]) on 12/13/2024 11:34:09 AM [facility] MUSE 12/03/2024 12:2 1 PM PONY CYLINDER PRESS OPERATOR 12/13/2024 11:34 AM PONY CYLINDER PRESS OPERATOR Sarika Martin PA-C ECG ORDERABLE S Performing Organization Address [facility] de Phone Number [facility] MUSE * XR CHEST 2VW (12/03/2024 11:24 AM PONY CYLINDER PRESS OPERATOR) Anatomical Region Laterality Modality Chest Digital Radiogra phy 12/03/2024 11:4 7 AM PONY CYLINDER PRESS OPERATOR Narrative 12/03/2024 11:53 AM PONY CYLINDER PRESS OPERATOR PROCEDURE: XR CHEST 2VW, DATE/TIME OF EXAM: 12/03/2024 11:33 AM, LOCATION [facility] INDICATION: R41.82: Altered mental status, [...] was drafted by Yaw Alvarez MD (resident physician) 12/03/2024 11:47 AM. Candice Haddad MD have personally reviewed and interpreted this examination/study. > Interpreting Provider: Candice Gordon MD on 12/03/2024 11:53 AM Procedure Note Candice Gordon MD - 12/03/2024 PROCEDURE: XR CHEST 2VW, DATE/TIME OF EXAM: 12/03/2024 11:33 AM, LOCATION [facility] INDICATION: R41.82: Altered mental status, [...] was drafted by Yaw Alvarez MD (resident physician) 12/03/2024 11:47 AM. Candice Haddad MD have personally reviewed and interpreted this examination/study. > Interpreting Provider: Candice Gordon MD on 12/03/2024 11:53 AM Sarika Martin PA-C DIAGNOSTIC IM AGING ORDERABLES * SYPHILIS ANTIBODY CASCADING REFLEX (11/07/2024 4:27 AM PONY CYLINDER PRESS OPERATOR) Treponema pallidum Antibody Non-react pepe Non-react pepe 11/07/2024 5:23 AM PONY CYLINDER PRESS OPERATOR [facility] Comment: No Laboratory evidence of syphilis infection. Note: Circulating antibodies may be low or undetectable in early infection. If recent exposure is suspected, re-draw sample in 2-4 weeks and repeat testing. Blood BLOOD SPECIMEN / Unknown Venipuncture / Unknown 11/07/2024 4:27 AM PONY CYLINDER PRESS OPERATOR 11/07/2024 4:37 AM PONY CYLINDER PRESS OPERATOR Juancarlos Lujan MD LAB - SEROLOGY ORDER DENISE [address] [address], [facility] [phone] * HIV-1 HIV-2 ANTIBODY + HIV P24 AG PANEL (11/07/2024 4:27 AM PONY CYLINDER PRESS OPERATOR) HIV Antigen/Antibod y 1 & 2 Non-reacti ve Non-react pepe 11/07/2024 5:23 AM PONY CYLINDER PRESS OPERATOR [facility] Comment:No Laboratory eviden ce of HIV infection. Blood BLOOD SPECIMEN / Unknown Venipuncture / Unknown 11/07/2024 4:27 AM PONY CYLINDER PRESS OPERATOR 11/07/2024 4:37 AM PONY CYLINDER PRESS OPERATOR Juancarlos Lujan MD LAB - CHEMISTRY ORDE EVELYN [address] [address], [place] [phone] * TSH REFLEX FREE T4 (11/07/2024 4:27 AM PONY CYLINDER PRESS OPERATOR) TSH 0.697 0.350 - 4.940 uIU/mL 11/07/2024 5:41 AM PONY CYLINDER PRESS OPERATOR [facility] Blood BLOOD SPECIMEN / Unknown Venipuncture / Unknown 11/07/2024 4:27 AM PONY CYLINDER PRESS OPERATOR 11/07/2024 4:39 AM PONY CYLINDER PRESS OPERATOR Juancarlos Lujan MD LAB - CHEMISTRY JOHN PAUL RIVAS Performing Organization Address City/[facility]/ZIP Co de Phone Number [facility] [address] [place] [address], [facility] [phone] * VITAMIN B1 (11/07/2024 4:27 AM PONY CYLINDER PRESS OPERATOR) Pathologist [facility] Vitamin B1 Whole Blood 96 70 - 180 nmol/L 11/09/2024 12:56 PM PONY CYLINDER PRESS OPERATOR [facility] Peak Rx #2 ([facility]) Comment: INTERPRETIVE INFORMATION: Vitamin B1, Whole Blood This assay measures the concentration of thiamine diphosphate (TDP), the primary active form of vitamin B1. Approximately 90 percent of vitamin B1 present in whole blood is TDP. Thiamine and thiamine monophosphate, which comprise the remaining 10 percent, are not measured. This test was developed and its performance characteristics determined by [facility]. It has not been cleared or approved by the [place] Food and Drug Administration. This test was performed in a CLIA certified laboratory and is intended for clinical purposes. Performed By: [facility] [address] [place] [address] Disc Pad Grinding Machine Feeder: Armando Lowe MD, PhD CLIA Number: [id number] Blood BLOOD SPECIMEN / Unknown Venipuncture / Unknown 11/07/2024 4:27 AM PONY CYLINDER PRESS OPERATOR 11/07/2024 4:37 AM PONY CYLINDER PRESS OPERATOR Juancarlos Lujan MD LAB - CHEMISTRY JOHN PAUL RIVAS Performing Organization Address City/[facility]/ZIP Co de Phone Number [facility] Peak Rx #2 [facility]) [address] * (ABNORMAL) URINALYSIS W/MICROSCOPIC REFLEX TO CULTURE (11/06/2024 11:44 PM PONY CYLINDER PRESS OPERATOR) Only the most recent of2 resultswithin the time period is included. Color UA Yellow Straw, Yellow 11/07/2024 12:16 AM PONY CYLINDER PRESS OPERATOR [facility] Clarity UA Clear Clear 11/07/2024 12:16 AM PONY CYLINDER PRESS OPERATOR [facility] Specific [place] UA 1.011 1.005 - 1.030 11/07/2024 12:16 AM [facility] pH UA 5.0 5.0 - 8.0 pH 11/07/2024 12:16 AM [facility] Protein UA Negative Negative 11/07/2024 12:16 AM [facility] Glucose UA 3+(A) Negative 11/07/2024 12:16 AM [facility] Ketone UA Negative Negative 11/07/2024 12:16 AM [facility] Bilirubin UA Negative Negative 11/07/2024 12:16 AM [facility] Blood UA Negative Negative 11/07/2024 12:16 AM [facility] Nitrite UA Negative Negative 11/07/2024 12:16 AM [facility] Leukocyte Esterase Negative Negative 11/07/2024 12:16 AM [facility] Urobilinogen UA Negative Negative mg/dL 11/07/2024 12:16 AM [facility] RBC UA 0-2 None Seen, 0-2, 3-5 /HPF 11/07/2024 12:16 AM [facility] WBC UA 0-5 None Seen, 0-5 /HPF 11/07/2024 12:16 AM [facility] Bacteria UA Trace(A) None /HPF 11/07/2024 12:16 AM [facility] Squamous Epithelial Cells UA None Seen None Seen, 0-2, 3-5 /HPF 11/07/2024 12:16 AM [facility] Mucus UA 1+ /LPF 11/07/2024 12:16 AM [facility] Hyaline Casts UA 0-2 None Seen, 0-2 /LPF 11/07/2024 12:16 AM [facility] Urine URINE SPECIMEN OBTAINED BY CLEAN CATCH PROCEDURE / Unknown Collection / Unknown 11/06/2024 11:44 PM PONY CYLINDER PRESS OPERATOR 11/07/2024 12:04 AM [facility] - 11/07/2024 12:16 AM [facility] Culture Not Indicated [place] Quintero TYING MACHINE OPERATOR LUMBER-PRIMER PRESS OPERATOR LAB - URINALY SIS ORDERABLES [facility] [address] [place] [address], [facility] [phone] * URINE DRUG SCREEN IMMUNOASSAY (11/06/2024 11:43 PM [facility]) [facility] Amphetamines Screen Urine Negative Negative: < 1000 ng/mL 11/07/2024 12:43 AM [facility] Barbiturates Screen Urine Negative Negative: < 200 ng/mL 11/07/2024 12:43 AM [facility] Benzodiazepine Screen Urine Negative Negative: < 200 ng/mL 11/07/2024 12:43 AM [facility] Opiates Urine Negative Negative: < 300 ng/mL 11/07/2024 12:43 AM [facility] Cocaine Metabolites Urine Negative Negative: < 300 ng/mL 11/07/2024 12:43 AM [facility] Phencyclidine Screen Urine Negative Negative: < 25 ng/ml 11/07/2024 12:43 AM [facility] Cannabinoids Screen Urine Negative Negative: <50 ng/mL 11/07/2024 12:43 AM [facility] Methadone Screen Urine Negative Negative: < 300 ng/mL 11/07/2024 12:43 AM [facility] Fentanyl Screen Urine Negative Negative: <1.5 ng/mL 11/07/2024 12:43 AM [facility] Urine URINE / Unknown Collection / Unknown 11/06/2024 11:43 PM [facility] 11/07/2024 12:04 AM [facility] - 11/07/2024 12:43 AM [facility] The Urine Toxicology Screening Panel does not screen for Propoxyphene, Meprobamate, Carisoprodol, Trazodone, ttzb-mas-dwmqwbr medications and/or volatiles (Acetone, Isopropanol, Methanol or Ethylene Glycol). Ethanol, Salicylate, Acetaminophen, Tricyclic Antidepressants and several therapeutic drugs may be individually assayed in serum or plasma specimen. Toxicology testing by the [facility] is an aid to medical diagnosis and treatment of patients. No documented chain of custody was maintained. Results are intended to be used for clinical purposes only. Juancarlos Lujan MD LAB - URINE CHEMISTR Y ORDERABLES [facility] [address] [place] [address], [facility] [phone] * PROTEIN BODY FLUID (11/06/2024 8:27 PM PONY CYLINDER PRESS OPERATOR) Protein Fluid 1.2 Not Established For Fluids g/dL 11/06/2024 9:22 PM PONY CYLINDER PRESS OPERATOR [facility] Fluid Type Peritoneal Fluid 11/06/2024 9:22 PM PONY CYLINDER PRESS OPERATOR [facility] Fluid PERITONEAL FLUID / Unknown Collection / Unknown 11/06/2024 8:27 PM PONY CYLINDER PRESS OPERATOR 11/06/2024 8:32 PM PONY CYLINDER PRESS OPERATOR Narrative [facility] - 11/06/2024 9:22 PM PONY CYLINDER PRESS OPERATOR The analytical performance of this test has been independently validated by the laboratory. A reference range has not been established for this fluid. Comparison of this result with the concentration in blood, serum or plasma is recommended. Homer Hallman MD LAB - BODY FLUID ORD ERABLES Performing Organization Address City/[facility]/ZIP Co de Phone Number [address] [address], [facility] [phone] * GLUCOSE BODY FLUID (11/06/2024 8:27 PM PONY CYLINDER PRESS OPERATOR) Glucose Fluid 126 Not Established For Fluids mg/dL 11/06/2024 9:55 PM PONY CYLINDER PRESS OPERATOR [facility] Fluid Type Peritoneal Fluid 11/06/2024 9:55 PM PONY CYLINDER PRESS OPERATOR [facility] Fluid PERITONEAL FLUID / Unknown Collection / Unknown 11/06/2024 8:27 PM PONY CYLINDER PRESS OPERATOR 11/06/2024 8:32 PM PONY CYLINDER PRESS OPERATOR Narrative [facility] - 11/06/2024 9:55 PM PONY CYLINDER PRESS OPERATOR The analytical performance of this test has been independently validated by the laboratory. A reference range has not been established for this fluid. Comparison of this result with the concentration in blood, serum or plasma is recommended. Homer Hallman MD LAB - BODY FLUID ORD ERABLES [address] [address], [facility] [phone] * DIFFERENTIAL MANUAL FLUID (11/06/2024 8:27 PM PONY CYLINDER PRESS OPERATOR) Only the most recent of2 resultswithin the time period is included. Fluid Source Peritoneal 11/06/2024 10:05 PM [facility] Body Fluid Total Cell Count 100 x10E6/L 11/06/2024 10:05 PM [facility] Neutrophils Fluid Percent 16 % 11/06/2024 10:05 PM [facility] Lymphocytes Fluid Percent 43 % 11/06/2024 10:05 PM [facility] Comment:Reactive Lymphocytes present. Macrophages Fluid Percent 36 % 11/06/2024 10:05 PM [facility] Eosinophils Fluid Percent 5 % 11/06/2024 10:05 PM [facility] Fluid PERITONEAL FLUID / Unknown Collection / Unknown 11/06/2024 8:27 PM PONY CYLINDER PRESS OPERATOR 11/06/2024 8:32 PM [facility] - 11/06/2024 10:05 PM PONY CYLINDER PRESS OPERATOR No reference ranges established for body fluid differential cell counts. The test results must be integrated into the clinical context for interpretation. Homer Hallman MD LAB - BODY FLUID ORD ERABLES [facility] [address] [place] [address], [facility] [phone] * CELL COUNT W DIFFERENTIAL FLUID (11/06/2024 8:27 PM PONY CYLINDER PRESS OPERATOR) Only the most recent of2 resultswithin the time period is included. Fluid Source Peritoneal 11/06/2024 10:05 PM [facility] Fluid Appearance SLIGHTLY HAZY 11/06/2024 10:05 PM [facility] Fluid Color PALE YELLOW 11/06/2024 10:05 PM [facility] Total Nucleated Cells Fluid 92 Reference Range Not Established x10E6/L 11/06/2024 10:05 PM [facility] RBC Count Fluid <2,000 Reference Range Not Established x10E6/L 11/06/2024 10:05 PM [facility] Fluid PERITONEAL FLUID / Unknown Collection / Unknown 11/06/2024 8:27 PM PONY CYLINDER PRESS OPERATOR 11/06/2024 8:32 PM [facility] - 11/06/2024 10:05 PM PONY CYLINDER PRESS OPERATOR No reference ranges established for body fluid cell counts. Any reference ranges provided are derived from published literature. The test results must be integrated into the clinical context for interpretation. Homer Hallman MD LAB - BODY FLUID ORD ERABLES [facility] [address] [place] [address], [facility] [phone] * (ABNORMAL) CULTURE FLUID+GRAM STAIN (11/06/2024 8:15 PM PONY CYLINDER PRESS OPERATOR) Only the most recent of2 resultswithin the time period is included. Culture Light Achromobacter species(AA) ADOLPH 11/10/2024 4:24 AM [facility] Comment:Isolate is multi tammy g resistant organism (MDRO). Gram Stain Light Red blood cells 11/10/2024 4:24 AM [facility] Gram Stain Rare Polymorphonuclear cells 11/10/2024 4:24 AM [facility] Gram Stain No organisms seen 025 4:24 AM [facility] Other PERITONEAL FLUID / Unknown Collection / Unknown 11/06/2024 8:15 PM PONY CYLINDER PRESS OPERATOR 11/06/2024 8:32 PM PONY CYLINDER PRESS OPERATOR Narrative [facility] - 11/10/2024 4:24 AM PONY CYLINDER PRESS OPERATOR This isolate is a multidrug resistant organism [...] Hallman MD LAB - MICROBIOLOGY O RDERABLES [facility] [address] [place] [address], [facility] [phone] * Paracentesis (11/06/2024 6:28 PM PONY CYLINDER PRESS OPERATOR) Narrative Homer Hallman MD - 11/06/2024 6:28 PM PONY CYLINDER PRESS OPERATOR Homer Hallman MD 11/06/2024 8:11 PM Paracentesis [...] (COVID-19)+INFLU A+B PCR RAPID (11/06/2024 3:40 PM PONY CYLINDER PRESS OPERATOR) COVID-19 PCR Not detected Not detected 11/06/19 5:10 PM PONY CYLINDER PRESS OPERATOR [facility] Influenza A Rapid JOHNNIE Not Detected Not Detected 11/06/2024 5:10 PM PONY CYLINDER PRESS OPERATOR [facility] Influenza B JOHNNIE Rapid Not Detected Not Detected 11/06/2024 5:10 PM PONY CYLINDER PRESS OPERATOR [facility] Microbiology SPECIMEN FROM NASOPHARYNGEAL STRUCTURE / Unknown Collection / Unknown 11/06/2024 3:40 PM PONY CYLINDER PRESS OPERATOR 11/06/2024 4:29 PM PONY CYLINDER PRESS OPERATOR Narrative [facility] - 11/06/2024 5:10 PM PONY CYLINDER PRESS OPERATOR Influenza assay performed by [employer]. [...] acid amplification assay performance was validated by [facility]. This test has been authorized by the [...] Hallman MD LAB - MICROBIOLOGY O RDERABLES [address] [address], [facility] [phone] * XR Chest 1Vw Portable (11/06/2024 2:29 PM PONY CYLINDER PRESS OPERATOR) Only the most recent of2 resultswithin the time period is included. Anatomical Region Laterality Modality Chest Digital Radiogra phy 11/06/2024 2:35 PM PONY CYLINDER PRESS OPERATOR Narrative 11/06/2024 2:46 PM PONY CYLINDER PRESS OPERATOR PROCEDURE: XR CHEST 1VW PORTABLE, DATE/TIME OF EXAM: 11/06/2024 2:30 PM, LOCATION [facility] INDICATION: G93.40: Encephalopathy, unspecified type [...] pneumothorax. Report dictated by Jonathan Torres MD, ([employer]). Christophe Haddad MD have personally reviewed and interpreted this examination/study. > Interpreting Provider: Christophe Rahman MD on 11/06/2024 2:46 PM Procedure Note Christophe Rahman MD - 11/06/2024 PROCEDURE: XR CHEST 1VW PORTABLE, DATE/TIME OF EXAM: 11/06/2024 2:30 PM, LOCATION [facility] INDICATION: G93.40: Encephalopathy, unspecified type [...] pneumothorax. Report dictated by Jonathan Torres MD, ([employer]). Christophe Haddad MD have personally reviewed and interpreted this examination/study. > Interpreting Provider: Christophe Rahman MD on 11/06/2024 2:46 PM Homer Hallman MD DIAGNOSTIC IMAGING O RDERABLES * LIPASE BLOOD (11/06/2024 12:54 PM PONY CYLINDER PRESS OPERATOR) Lipase 16 8 - 78 U/L 11/06/2024 1:37 PM PONY CYLINDER PRESS OPERATOR [facility] Blood BLOOD SPECIMEN / Unknown Venipuncture / Unknown 11/06/2024 12:54 PM PONY CYLINDER PRESS OPERATOR 11/06/2024 1:07 PM PONY CYLINDER PRESS OPERATOR Narrative [facility] - 11/06/2024 1:37 PM PONY CYLINDER PRESS OPERATOR Lipase results from the Pena Alinity analyzer may not be comparable with other methodologies. Paris Quintero APRN-PRIMER PRESS OPERATOR LAB - MAINTENANCE ASSOCIATE RY ORDERABLES [facility] [address] [place] [address], [facility] [phone] * (ABNORMAL) CBC W/O DIFFERENTIAL (10/28/2024 6:14 AM PONY CYLINDER PRESS OPERATOR) Only the most recent of5 resultswithin the time period is included. WBC 3.0(L) 4.0 - 10.7 x10E9/L 10/28/2024 6:55 AM [facility] RBC Count 2.87(L) 4.30 - 5.80 x10E12/L 10/28/2024 6:55 AM [facility] Hemoglobin 8.9(L) 13.3 - 17.5 g/dL 10/28/2024 6:55 AM [facility] Hematocrit 26.5(L) 38.7 - 51.1 % 10/28/2024 6:55 AM [facility] MCV 92.3 80.0 - 98.0 fL 10/28/2024 6:55 AM [facility] MCH 31.0 26.7 - 33.6 pg 10/28/2024 6:55 AM [facility] MCHC 33.6 31.7 - 36.3 g/dL 10/28/2024 6:55 AM [facility] RDW-CV 16.5(H) 11.3 - 14.8 % 10/28/2024 6:55 AM [facility] Platelet Count 109(L) 150 - 420 x10E9/L 10/28/2024 6:55 AM [facility] MPV 10.9 7.8 - 11.4 fL 10/28/2024 6:55 AM [facility] Blood BLOOD SPECIMEN / Unknown Lab Venipuncture / Unknown 10/28/2024 6:14 AM PONY CYLINDER PRESS OPERATOR 10/28/2024 6:39 AM PONY CYLINDER PRESS OPERATOR Rigoberto Mcclain MD LAB - HEMATOLOGY ORD ERABLES [facility] [address] [place] [address], [facility] [phone] * (ABNORMAL) VITAMIN D 1,25 DIHYDROXY (10/26/2024 4:00 AM PONY CYLINDER PRESS OPERATOR) Vitamin D, 1,25 Dihydroxy 18.8(L) 19.9 - 79.3 pg/mL 10/29/2024 12:19 AM PONY CYLINDER PRESS OPERATOR [facility] ([facility]) Comment: INTERPRETIVE INFORMATION: Vitamin D, 1,25-Dihydroxy This test is primarily indicated during patient evaluation for hypercalcemia and renal failure. A normal result does not rule out Vitamin D deficiency. The recommended test for diagnosing Vitamin D deficiency is Vitamin D 25-hydroxy. Performed By: [facility] [address] [place] [address] Disc Pad Grinding Machine Feeder: Armando Lowe MD, PhD CLIA Number: [id number] Blood BLOOD SPECIMEN / Unknown Venipuncture / Unknown 10/26/2024 4:00 AM PONY CYLINDER PRESS OPERATOR 10/26/2024 4:10 AM PONY CYLINDER PRESS OPERATOR Shravan Jessica MD LAB - CHEMISTRY OR DERABLES Performing Organization Address City/[facility]/ZIP Co de Phone Number [facility]) [address] [place] [address] * SODIUM URINE RANDOM (10/25/2024 10:40 AM PONY CYLINDER PRESS OPERATOR) Pathologist [facility] Sodium Urine 30 Not Established mmol/L 10/25/2024 11:05 AM PONY CYLINDER PRESS OPERATOR [facility] Urine URINE SPECIMEN OBTAINED BY CLEAN CATCH PROCEDURE / Unknown Collection / Unknown 10/25/2024 10:40 AM PONY CYLINDER PRESS OPERATOR 10/25/2024 10:47 AM PONY CYLINDER PRESS OPERATOR Shravan Jessica MD LAB - URINE CHEMIS TRY ORDERABLES [address] [address], [facility] [phone] * US Abdomen Ltd W Comp Doppler (10/25/2024 8:20 AM PONY CYLINDER PRESS OPERATOR) Anatomical Region Laterality Modality Abdomen Ultrasound 10/25/2024 12:3 6 PM PONY CYLINDER PRESS OPERATOR Impressions 10/27/2024 1:43 AM PONY CYLINDER PRESS OPERATOR IMPRESSION: 1.Hepatic cirrhosis with sequela of portal hypertension including moderate to large volume ascites. 2.Mildly decreased velocity of flow within the main portal vein (13.9 cm/s). No portal vein thrombosis. Otherwise, normal hepatic Doppler evaluation. 3.No evidence of cholelithiasis or acute cholecystitis. > Dictated by Tom Barreto DO,(radiology clerk). I, Lalo St MD have personally reviewed and interpreted this examination/study. > Interpreting Provider: Lalo St MD on 10/27/2024 1:43 AM Narrative 10/27/2024 1:43 AM PONY CYLINDER PRESS OPERATOR PROCEDURE: US ABDOMEN LTD W COMP DOPPLER, DATE/TIME OF EXAM: 10/25/2024 8:54 AM, LOCATION [facility] INDICATION: K76.82: Hepatic encephalopathy (HCC) [...] DOPPLER, DATE/TIME OF EXAM:10/25/2024 8:54 AM, LOCATION [facility] INDICATION: K76.82: Hepatic encephalopathy (HCC) [...] cholecystitis. > Dictated by Tom Barreto DO,(radiology clerk). I, Lalo St MD have personally reviewed and interpreted this examination/study. > Interpreting Provider: Lalo St MD on 10/27/2024 1:43 AM Rigoberto Mcclain MD US ORDERABLES * PTH INTACT W/O CALCIUM (10/25/2024 4:54 AM PONY CYLINDER PRESS OPERATOR) PTH Intact 13.2 8.0 - 77.0 pg/mL 10/25/2024 6:19 AM PONY CYLINDER PRESS OPERATOR [facility] Blood BLOOD SPECIMEN / Unknown Lab Venipuncture / Unknown 10/25/2024 4:54 AM PONY CYLINDER PRESS OPERATOR 10/25/2024 5:46 AM PONY CYLINDER PRESS OPERATOR Rigoberto Mcclain MD LAB - CHEMISTRY JOHN PAUL RIVAS [facility] [address] [place] [address], [facility] [phone] * (ABNORMAL) PTH RELATED PEPTIDE (10/25/2024 4:54 AM PONY CYLINDER PRESS OPERATOR) PTH Related Peptide 3.1(H) 0.0 - 2.3 pmol/L 11/03/2024 1:05 PM PONY CYLINDER PRESS OPERATOR [email or web address] ([facility]) Comment: INTERPRETIVE INFORMATION: Parathyroid Hormone-Related Peptide This test was developed and its performance characteristics determined by [facility]. It has not been cleared or approved by the [place] Food and Drug Administration. This test was performed in a CLIA certified laboratory and is intended for clinical purposes. Performed By: [facility] [address] [place] [address] Disc Pad Grinding Machine Feeder: Armando Lowe MD, PhD CLIA Number: [id number] Blood BLOOD SPECIMEN / Unknown Lab Venipuncture / Unknown 10/25/2024 4:54 AM PONY CYLINDER PRESS OPERATOR 10/25/2024 5:29 AM PONY CYLINDER PRESS OPERATOR Rigoberto Mcclain MD LAB - CHEMISTRY JOHN PAUL RIVAS [facility] Peak Rx #2 [facility]) [address] [place] [address] * (ABNORMAL) VITAMIN D 25-HYDROXY (10/25/2024 4:54 AM PONY CYLINDER PRESS OPERATOR) Vitamin D, 25 Hydroxy 27.0(L) 30.0 - 80.0 ng/mL 10/25/2024 6:33 AM PONY CYLINDER PRESS OPERATOR [facility] Comment: The recommendations for 25-Hydroxy [...] Lab Venipuncture / Unknown 10/25/2024 4:54 AM PONY CYLINDER PRESS OPERATOR 10/25/2024 5:29 AM PONY CYLINDER PRESS OPERATOR Rigoberto Mcclain MD LAB - CHEMISTRY JOHN PAUL RIVAS Performing Organization Address City/[facility]/ZIP Co de Phone Number [address] [address], [facility] [phone] * LDH BLOOD (10/25/2024 4:54 AM PONY CYLINDER PRESS OPERATOR) LDH Total 203 125 - 243 Units/L 10/25/2024 6:19 AM [facility] Blood BLOOD SPECIMEN / Unknown Lab Venipuncture / Unknown 10/25/2024 4:54 AM PONY CYLINDER PRESS OPERATOR 10/25/2024 5:29 AM PONY CYLINDER PRESS OPERATOR Rigoberto Mcclain MD LAB - CHEMISTRY JOHN PAUL RIVAS Performing Organization Address City/[facility]/ZIP Co de Phone Number [address] [address], [place] [phone] * (ABNORMAL) CALCIUM IONIZED WHOLE BLOOD (10/24/2024 8:47 AM PONY CYLINDER PRESS OPERATOR) Calcium Ionized 1.54 mmol/L 10/24/2024 9:[address] [facility] pH 7.41 7.35 - 7.45 pH 10/24/2024 9:03 AM [facility] Ionized Calcium pH Adjusted 1.55(H) 1.19 - 1.34 mmol/L 10/24/2024 9:03 AM [facility] Blood BLOOD SPECIMEN / Unknown Lab Venipuncture / Unknown 10/24/2024 8:47 AM PONY CYLINDER PRESS OPERATOR 10/24/2024 8:58 AM PONY CYLINDER PRESS OPERATOR Rigoberto Mcclain MD LAB - CHEMISTRY JOHN PAUL RIVAS Performing Organization Address City/[facility]/ZIP Co de Phone Number [facility] [address] [place] [address], [facility] [phone] * (ABNORMAL) HEMOGLOBIN A1C (10/24/2024 8:47 AM PONY CYLINDER PRESS OPERATOR) Hemoglobin A1c 7.9(H) <=5.6 % 10/24/2024 12:41 PM PONY CYLINDER PRESS OPERATOR [facility] Estimated Average Glucose 180 mg/dL 10/24/2024 12:[address] [facility] Comment: HbA1c Interpretation: Normal : < [...] Lab Venipuncture / Unknown 10/24/2024 8:47 AM PONY CYLINDER PRESS OPERATOR 10/24/2024 9:01 AM PONY CYLINDER PRESS OPERATOR Rigoberto Mcclain MD LAB - CHEMISTRY JOHN PAUL RIVAS [facility] [address] [place] [address], [facility] [phone] * LACTIC ACID BLOOD (10/24/2024 8:47 AM PONY CYLINDER PRESS OPERATOR) Lactic Acid-Stat 2.0 <=2.0 mmol/L 10/24/2024 9:33 AM PONY CYLINDER PRESS OPERATOR [facility] Blood BLOOD SPECIMEN / Unknown Lab Venipuncture / Unknown 10/24/2024 8:47 AM PONY CYLINDER PRESS OPERATOR 10/24/2024 9:02 AM PONY CYLINDER PRESS OPERATOR Rigoberto Mcclain MD LAB - CHEMISTRY JOHN PAUL RIVAS [facility] [address] [place] [address], [facility] [phone] * (ABNORMAL) BLOOD GASES REINA + COOX PANEL (10/23/2024 6:25 PM PONY CYLINDER PRESS OPERATOR) pH Venous 7.45(H) 7.32 - 7.42 pH 10/23/2024 6:44 PM [facility] pO2 Venous 86(H) 35 - 40 mmHg 10/23/2024 6:44 PM [facility] pCO2 Venous 23(L) 40 - 50 mmHg 10/23/2024 6:44 PM [facility] HCO3 Venous 16.0(L) 20 - 30 mmol/L 10/23/2024 6:44 PM [facility] Base Excess Venous -6.8(L) -2.0 - 2.0 mmol/L 10/23/2024 6:44 PM [facility] Oxyhemoglobin Venous 96.1 % 10/05 6:44 PM [facility] Deoxyhemoglobin (HHB) Venous % 2.1 % 10/23/2024 6:44 PM [facility] Methemoglobin 0.8 0.0 - 2.0 % 10/23/2024 6:44 PM [facility] Carboxyhemoglobin 1.0 0.0 - 2.0 % 2023 6:44 PM [facility] O2 Content Venous 12.4 Interpret within clinical context ml/dL 10/23/2024 6:44 PM [facility] Hemoglobin by COOX 9.1(L) 12.0 - 17.6 g/dL 10/23/2024 6:44 PM [facility] O2 Saturation Venous 98 >=70 % 10/05 6:44 PM [facility] FI O2 Mixed Venous 21.0 % 2023 6:44 PM [facility] Blood BLOOD SPECIMEN / Unknown Lab Venipuncture / Unknown 10/23/2024 6:25 PM PONY CYLINDER PRESS OPERATOR 10/23/2024 6:36 PM PONY CYLINDER PRESS OPERATOR Narrative [facility] - 10/23/2024 6:44 PM PONY CYLINDER PRESS OPERATOR Carboxyhemoglobin Normal Concentration: Non-smokers: 0-2%; Smokers: 0-9%; Toxic: >20% Rigoberto Mcclain MD LAB - BLOOD GASES OR DERABLES Performing Organization Address City/[facility]/ZIP Co de Phone Number [address] [address], [facility] [phone] * (ABNORMAL) LACTIC ACID BLOOD REFLEX TO REPEAT (10/23/2024 6:11 PM PONY CYLINDER PRESS OPERATOR) Only the most recent of3 resultswithin the time period is included. Lactic Acid-Stat 7.9(HH) <=2.0 mmol/L 10/23/2024 6:46 PM PONY CYLINDER PRESS OPERATOR [facility] Blood BLOOD SPECIMEN / Unknown Lab Venipuncture / Unknown 10/23/2024 6:11 PM PONY CYLINDER PRESS OPERATOR 10/23/2024 6:18 PM PONY CYLINDER PRESS OPERATOR Paris Quintero APRN-SUSAN LAB - MAINTENANCE ASSOCIATE RY ORDERABLES Performing Organization Address City/[facility] Co de Phone Number [address] [address], [facility] [phone] * Paracentesis (10/23/2024 4:59 PM PONY CYLINDER PRESS OPERATOR) Narrative Mnua Waller MD - 10/23/2024 4:59 PM PONY CYLINDER PRESS OPERATOR Elma Deutsch MD 10/23/2024 5:01 PM Paracentesis [...] 9:50 PM 09/02/2024 2:53 PM Care Teams Bone Char Kiln Tender Relationship Specialty Start Date End Date Moses Conn MD [address] [place] [id number] PCP - General 01/04/23
--- OUTSIDE RECORDS SUMMARY | 2024-12-23 12:56 | XMS_ITS | Clinical Summary ---
Author Organization [facility] Marcell Smiley Address [address] [place] [address] Care Team Providers Care Emergency Room Tech Name Role Phone Moses Conn MD Primary Care Provider [phone] Allergies Active Allergy Reactions Criticality Noted Date [...] 22 Active fluticasone propionate (FLONASE) 50 mcg/spray [place], Suspension nasal inhaler Administer 1 [place] in each nostril daily. Active metoprolol succinate [...] 02/26/2023 Other dietary vitamin B12 deficiency anemia 05/06 Mesenteric lymphadenopathy 05/03/2022 Pancytopenia 04/12/2022 Chronic anemia 04/12/2022 Encounters Date Type Department Care Team Description 12/22/2024 2:15 PM CLOTH PRINTER Office Visit [facility] Oncology and Hematology [facility] [address] [place] [id number] Anish Perez MD Multiple myeloma, remission status unspecified (CMS/HCC) (Primary Dx) 12/18/2024 Orders Only [facility] Oncology and Hematology [facility] [address] [place] [address] Anish Perez MD Chronic anemia (Primary Dx); Pancytopenia (CMS/HCC); Other dietary vitamin B12 deficiency anemia 12/18/2024 Refill [facility] Oncology and Hematology [facility] [address] [place] [address] Anish Perez MD 12/16/2024 Telephone [facility] Oncology and Hematology [facility] [address] [place] [address] Anish Perez MD Lab Results 12/10/2024 4:30 PM CLOTH PRINTER Telephone Check Up [facility] Oncology and Hematology [facility] [address] [place] [address] Anish Perez MD Multiple myeloma, remission status unspecified (CMS/HCC) (Primary Dx) 12/08/2024 [facility] [place] [address] [place] [address] Anish Perez MD 12/05/2024 Abstract [facility] - [place] [address] [place] [id number] Anish Perez MD 12/05/2024 Orders Only [facility] - [place] [address] [place] [id number] Anish Perez MD 12/04/2024 Orders Only [facility] - [place] [address] [place] [phone] Anish Perez MD 12/02/2024 Orders Only [facility] [place] [address] [place] [address] Anish Perez MD 11/26/2024 External Device Data STL ABSTRACTION Provider, Abstract 11/25/2024 External Device Data STL ABSTRACTION Provider, Abstract 11/25/2024 Orders Only [facility] - [place] [address] [place] [address] Anish Perez MD 11/20/2024 [facility] Oncology and Hematology - [place] [address] [place] [address] Anish Perez MD 11/18/2024 Orders Only [facility] - [place] [address] [place] [address] Anish Perez MD 11/18/2024 Telephone [facility] - [place] [address] [place] [address] Anish Perez MD Paracentesis 11/06/2024 Orders Only [facility] Oncology and Hematology - [place] [address] [place] [address] Anish Perez MD 10/22/2024 Orders Only [facility] Oncology and Hematology - [place] [address] [place] [address] Anish Perez MD 10/15/2024 Orders Only [facility] Oncology and Hematology - [place] [address] [place] [address] Anish Perez MD 10/08/2024 Orders Only [facility] Oncology and Hematology - [place] [address] [place] [address] Anish Perez MD 10/07/2024 Orders Only [facility] Oncology and Hematology - [place] [address] [place] [address] Anish Perez MD 09/24/2024 Orders Only [facility] Oncology and Hematology - [place] [address] [place] [address] Anish Perez MD from Last 3 Months [...] Comments Blood Pressure 128/65 12/22/2024 2:03 PM CLOTH PRINTER Pulse 66 12/22/2024 2:03 PM CLOTH PRINTER Temperature 37.1 C (98.7 F) 12/22/2024 2:03 PM CLOTH PRINTER Respiratory Rate 14 12/22/2024 2:03 PM CLOTH PRINTER Oxygen Saturation 96% 12/22/2024 2:0 3 PM CLOTH PRINTER Inhaled Oxygen Concentration - - Weight 62.1 kg (137 lb) 12/22/2024 2:03 PM CLOTH PRINTER Patient stated that this is the correct weight Height 162.6 cm (5' 4 ) 06/19/2023 9:19 AM CDT Body Mass Index 23.52 06/19/2023 9:19 AM CDT Plan of Treatment Upcoming Encounters Date Type Department Care Team (Late st Contact Info) Description 01/01/2025 4:30 PM CLOTH PRINTER Telephone Check Up [facility] Oncology and Hematology - [place] [address] [facility] [address] [place] [address] Anish Perez MD [address] [facility] [employer] [address] [place] [address] Health Maintenance Due Date Last Done Comments DIABETES ANNUAL FOOT EXAM 1963 DIABETES ANNUAL RETINAL EXAM 1963 DIABETES MICROALBUMIN ANNUAL SCREEN 1963 LDL CHOLESTEROL ANNUAL 1963 DTAP/TDAP/TD VACCINES (1 - Tdap) 1964 RSV VACCINE (60+ or ) (1 - 1-dose 75+ series) 2020 COVID-19 Vaccine (4 - 2023-2 5 season) 2024 09/08/2021, 01/06/2021, 12/10/2020 Medicare [place] ([place]) Preventative Visit/Annual Wellness Visit 11/05/2024 DIABETES HBA1C [...] CBC WITH AUTODIFFERENTIAL Routine 2024 1:01 PM CLOTH PRINTER COMPREHENSIVE METABOLIC PANEL Routine 12/01/2024 12:55 PM CLOTH PRINTER KAPPA/LAMBDA LIGHT CHAINS Routine 2024 11:50 AM CLOTH PRINTER PROTEIN ELECTROPHORESIS, CSF Routine 12/01/2024 10:51 AM CLOTH PRINTER PARACENTESIS REPORT Routine 11/25/2024 2 :07 PM CLOTH PRINTER PROTIME-INR Routine 11/18/2024 3:17 PM CLOTH PRINTER PARACENTESIS REPORT Routine 11/18/2024 3 :10 PM CLOTH PRINTER PARACENTESIS REPORT Routine 11/03/2024 1 0:54 AM CLOTH PRINTER US ASPIRATION ABDOMEN Routine 10/21/2024 10:52 AM CLOTH PRINTER PARACENTESIS REPORT Routine 10/14/2024 9 :01 AM CLOTH PRINTER PROTIME-INR Routine 10/07/2024 3:44 PM CLOTH PRINTER PARACENTESIS REPORT Routine 10/07/2024 2 :00 PM CLOTH PRINTER PARACENTESIS REPORT Routine 09/23/2024 9 :56 AM CLOTH PRINTER from Last 3 Months Results * CBC WITH AUTODIFFERENTIAL (12/01/2024 1:01 PM CLOTH PRINTER) Blood Anish Perez MD HEMATOLOGY ORDERABLES Final Res ult * COMPREHENSIVE METABOLIC PANEL (12/01/2024 12:55 PM CLOTH PRINTER) Blood Anish Perez MD CHEMISTRY ORDERABLES Final Resu lt * KAPPA/LAMBDA, FREE LIGHT CHAINS (12/01/2024 11:50 AM CLOTH PRINTER) Blood Anish Perez MD CHEMISTRY ORDERABLES Final Resu lt * PROTEIN ELECTROPHORESIS, CSF (12/01/2024 10:51 AM CLOTH PRINTER) Cerebrospinal fluid CEREBROSPINAL FLUID / Unknown us Anish Perez MD BODY FLUIDS AND STOOLS Final Re sult * PARACENTESIS REPORT (11/25/2024 2:07 PM CLOTH PRINTER) Result Paula Perez MD GI PROCEDURE ORDERABLES Final R esult * PROTIME-INR (11/18/2024 3:17 PM CLOTH PRINTER) Only the most recent of2 resultswithin the time period is included. Blood Result Paula Perez MD HEMATOLOGY ORDERABLES Final Res ult * PARACENTESIS REPORT (11/18/2024 3:10 PM CLOTH PRINTER) Result Paula Perez MD GI PROCEDURE ORDERABLES Final R esult * PARACENTESIS REPORT (11/03/2024 10:54 AM CLOTH PRINTER) Result Paula Perez MD GI PROCEDURE ORDERABLES Final R esult * US ASPIRATION ABDOMEN (10/21/2024 10:52 AM CLOTH PRINTER) Anatomical Region Laterality Modality Abdomen Other Result Paula Perez MD US ORDERABLES Final Result * PARACENTESIS REPORT (10/14/2024 9:01 AM CLOTH PRINTER) Result Paula Perez MD GI PROCEDURE ORDERABLES Final R esult * PARACENTESIS REPORT (10/07/2024 2:00 PM CLOTH PRINTER) Result Paula Perez MD GI PROCEDURE ORDERABLES Final R esult * PARACENTESIS REPORT (09/23/2024 9:56 AM CLOTH PRINTER) Result Paula Perez MD GI PROCEDURE ORDERABLES Final R esult from Last 3 Months Insurance [facility] MCR Care Teams Emergency Room Tech Relationship Specialty Start Date End Date Moses Conn MD [address] [place] [address] PCP - General Internal Medicine 04/12/22
--- OUTSIDE RECORDS SUMMARY | 2024-12-23 12:56 | XMS_ITS | Encounter Summary ---
Author Organization [facility] Health Address [address] [facility] [place] [address] Care Team Providers Care Mva Operator Name Role Phone Moses Conn MD Primary Care Provider [phone] Encounter Details Date Type Department Care Team (Late Contact Info) Description 09/21/2020 Lab Requisition [facility] [address] [place] [phone] Armen Orozco MD [address] [place] [address] Social History Tobacco Use Types Packs/Day Years Used Date Smoking Tobacco: Never Assessed Sex and Gender Information Value Date Recorded Sex Assigned at Not on file Gender Identity Not on file Sexual Orientation Not on file documented as of this encounter Plan of Treatment Upcoming Encounters Date Type Department Care Team (Late Contact Info) Description 01/27/2025 2:00 PM CDT Office Visit [facility] - [address] [place] [phone] Rigoberto Mcclain MD [address] [place] [phone] documented as of this encounter Procedures Procedure Name Priority Date/Time Associated Diagnosis Comments DERMATOPATHOLOGY Routine 09/20/2020 12:0 0 AM CARPET CLEANER documented in this encounter Results * DERMATOPATHOLOGY (09/20/2020 12:00 AM CARPET CLEANER) Case Report Dermatopathology Report Case: [id number] Authorizing Provider: Armen Orozco MD Collected: 09/20/2020 12:00 AM Ordering Location: [facility] Received: 09/21/2020 06:45 AM Pathologist: Lola Reyes MD Specimen: Skin, right helix 0 3:50 PM [facility] Final Diagnosis Specimen A. 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 Path # [id number]. 0 3:50 PM [facility] Gross Description Specimen A: Received is one formalin filled container labeled with the patient's name and designated right helix. The specimen consists of a shave biopsy measuring [id number]. Jar 0. 0 3:50 PM [facility] Microscopic Description Specimen A. SKIN, [...] cannot be ruled out. 0 3:50 PM [facility] Disclaimer An external and internal positive and negative controls are appropriate for the histochemical, immunohistochemical and immunofluorescence stain(s) in this case (if any), except where stated explicitly. The performance characteristics of the stain(s) cited in this report were developed and its performance characteristic determined by the Dermatopathology Laboratory at [facility], directed by Dr. Quincy Perez. These tests need not be, and therefore are not, approved by the [place] Food and Drug Administration. The tests are used for clinical purposes. Billing Codes Specimen Charges Stain Charges 97498 1 58235 1 0 3:50 PM [facility] Embedded Images 0 3:50 PM [facility] Pathology/Cytolog y TISSUE SPECIMEN FROM SKIN / Unknown 09/20/2020 09/21/2020 6:45 AM CARPET CLEANER Armen Orozco MD LAB - PATHOLOGY/[facility]TO [facility] DERMATOPATHOLOGY LABORATORY [facility] Department of Dermatology [address], [address] [phone] documented in this encounter Visit Diagnoses Not on filedocumented in this encounter Additional Health Concerns Infection Onset Date Last Indicated Resolved Time COVID-19 Under Investigation 11/06/2024 11/06/2024 11/06/2024 5:10 PM CARPET CLE[employer]ER MDRO 11/06/2024 11/06/2024 COVID-19 Under Investigation 12/03/2024 12/03/2024 12/03/2024 1:56 PM CARPET CLE[employer]ER documented as of this encounter Care Teams Mva Operator Relationship Specialty Start Date End Date Moses Conn MD [address] [place] [id number] PCP - General 01/04/23 documented as of this encounter
--- OUTSIDE RECORDS SUMMARY | 2024-12-23 12:56 | XMS_ITS | Encounter Summary ---
Author Organization [facility] Health Address [address] [place] [address] Care Team Providers Care Range Aid Name Role Phone Moses Conn MD Primary Care Provider [phone] Reason for Visit * Reason Onset Date Comments Results 06/19/2024 Encounter Details Date Type Department Care Team (Late st Contact Info) Description 06/19/2024 Telephone [facility] - [address] [facility] [place] [phone] Rigoberto Mcclain MD [address] [place] [phone] Results Social History Tobacco Use [...] Office Visit [facility] - [address] [facility] [place] [phone] Rigoberto Mcclain MD [address] [place] [phone] documented as of this encounter Goals Goal Patient Goal Type Associated Problems Recent Progress Patient-Stated? Author Medication Management General On track( 025 10:45 AM BLOCK PLACER) No Kandis Ledesma, RN Note: Expected end [...] Under Investigation 11/06/2024 11/06/2024 11/06/2024 5:10 PM BLOCK PLACER MDRO 11/06/2024 11/06/2024 COVID-19 Under Investigation 12/03/2024 12/03/2024 12/03/2024 1:56 PM BLOCK PLACER documented as of this encounter Care Teams Range Aid Relationship Specialty Start Date End Date Moses Conn MD [address] [place] [id number] PCP - General 01/04/23 documented as of this encounter
--- OUTSIDE RECORDS SUMMARY | 2024-12-23 12:56 | XMS_ITS | Clinical Summary ---
Author Organization [facility] Address [address] [place] [address] Care Team Providers Care Speech And Hearing Clinic Director Name Role Phone Moses Conn MD Primary Care Provider [phone] Source Comments [facility],non-owned Affiliates and Associated Physician Practices is amultiple site organization consisting of ambulatory clinics and hospital sitesin [place], [place], [place]. This disclosure is being madepursuant to the Care Everywhere program and may not contain all information available regarding this patient. Last updated 18.[facility] Allergies Active Allergy Reactions Criticality Noted Date [...] fluticasone propionate (Flonase) 50 MCG/ACT nasal spray [place] 1 (one) spray into the nose once [...] Department Care Team Description 12/09/2024 Transitional Care [facility] CARE COORDINATION [address] [place] [phone] Lesly Acosta, OLAF Transitions Of Care 12/03/2024 1:55 PM [employer] ME[employer] - 12/08/2024 2:44 PM [employer] Hospital Encounter [facility] 7S ACUTE [address] [place] [phone] Julio Torres MD Demars, MD Tai Carroll Alex S, MD Shmais, Manar A, MD Qureshi, Kamran, MD Emergency Medicine Discharge Disposition: Home Health Care [facility] [place] 12/03/2024 Travel 12/02/2024 [place]phone [facility] [place] [address] [place] [phone] Luana Alejo, OLAF Cirrhosis (decompensated) 11/14/2024 Transitional Care [facility] CARE COORDINATION [address] [place] [phone] Lesly Acosta, OLAF Transitions Of Care 11/06/2024 2:03 PM [employer] ME[employer] - 11/13/2024 4:50 PM [employer] Hospital Encounter [facility] [address]S ACUTE [address] [place] [phone] Homer Hallman MD Befeler, Alex S, MD Elbeshbeshy, Sly Morrissey MD Gastroenterology Discharge Disposition: Home or Self Care 11/06/2024 10:00 AM [employer] ME[employer] Office Visit [facility] [address] [place] [address] Rigoberto Mcclain MD Decompensated hepatic cirrhosis (HCC) (Primary Dx); Portal hypertension (HCC); Other ascites; Hepatic encephalopathy (HCC) 11/06/2024 Travel 10/31/2024 9:30 AM [employer] ME[employer]TER - 10/31/2024 11:00 AM [employer] ME[employer] Surgery [facility] ENDOSCOPY [address] [place] [phone] Procedure, Nursing G_I GASTRIC MOTILITY STUDY 10/31/2024 9:23 AM [employer] ME[employer]TER - 10/31/2024 10:20 AM [employer] Hospital Encounter [facility]ILA OP [address] [place] [phone] Didier Lei MD Surgery General Discharge Disposition: Home or Self Care 10/31/2024 Travel 10/23/2024 2:22 PM [employer] - 10/28/2024 3:15 PM [employer] Hospital Encounter [facility] 7N ACUTE [address] [place] [phone] Muna Waller MD Agbim, Uchenna A, MD Qureshi, Kamran, MD Gastroenterology Discharge Disposition: Home or Self Care 10/23/2024 Travel 10/23/2024 Telephone [facility] - Nephrology [address] [place] [phone] Rigoberto Mcclain MD Follow-up; Med Question 09/28/2024 11:35 AM [employer] ME[employer] - 09/30/2024 12:45 PM [employer] Hospital Encounter [facility] 7S ACUTE [address] [place] [phone] Carlos Mcclain DO Farmer, Adam D, MD SynFrancy MD Gastroenterology Discharge Disposition: Home or Self Care 09/28/2024 Travel 09/24/2024 Transitional Care [facility] CARE COORDINATION [address] [place] [phone] Lesly Acosta RN Transitions Of Care from [...] and heating? Not hard at all 11/08/2024 [facility] - [facility] [...] any time in the past 12 m [facility], were you homeless or living in a senior living (including now)? No 11/08/2024 Sex and Gender Information Value Date Recorded Sex Assigned at Not on file Gender Identity Not on file Sexual Orientation Not on file Last Filed Vital Signs Vital Sign Reading Time Taken Comments Blood Pressure 135/61 12/08/2024 12:00 PM [employer] Pulse 75 12/08/2024 12:00 PM [employer] Temperature 36.5 C (97.7 F) 12/08/2024 12:00 PM [employer] Respiratory Rate 17 12/08/2024 12:00 PM [employer] Oxygen Saturation 98% 12/08/2024 12:00 PM [employer] Inhaled Oxygen Concentration - - Weight 48 kg (105 lb 12.8 oz) 12/05/2024 6:16 PM [employer] ME[employer] C[employer]TER Height 163 cm (5' 4.17 ) 12/04/2024 8:31 PM [employer] Body Mass Index 18.06 12/04/2024 8:31 PM [employer] ME[employer] C[employer] Plan of Treatment Upcoming Encounters Date Type Department Care Team (Late st Contact Info) Description 01/27/2025 2:00 PM CDT Office Visit [facility] - [place] [address] [facility] [place] [phone] Rigoberto Mcclain MD [address] [place] [phone] Health Maintenance Due Date Last Done Comments [...] Management General On track( 025 10:45 AM [employer]PLE ME[employer] C[employer]TER) Kandis Dejesus, RN Note: Expected end date: ongoing Interventions: Take all medications as prescribed Let your doctor know right away about any changes in your medications Make sure to request a refill of your medication at least one week prior to your last dose Procedures Procedure Name Priority Date/Time Associated Diagnosis Comments GLUCOSE - POINT OF CARE Routine 12/08/2024 12:03 PM [employer] GLUCOSE - POINT OF CARE Routine 12/08/2024 7:56 AM [employer] ME[employer] C[employer]TER PHOSPHORUS BLOOD Routine 12/08/2024 5:06 AM [employer] ME[employer] C[employer]TER MAGNESIUM BLOOD Routine 12/08/2024 5:06 AM [employer] ME[employer]TER COMPREHENSIVE METABOLIC PANEL AM Draw 12/08/2024 5:06 AM [employer]PLE ME[employer] C[employer]TER CBC W AUTO DIFFERENTIAL AM Draw 12/08/2024 5:06 AM [employer] C[employer]TER GLUCOSE - POINT OF CARE Routine 12/08/2024 4:51 AM [employer] ME[employer] C[employer]TER GLUCOSE - POINT OF CARE Routine 12/07/2024 11:59 PM [employer] ME[employer] C[employer]TER GLUCOSE - POINT OF CARE Routine 12/07/2024 8:41 PM [employer] C[employer]TER GLUCOSE - POINT OF CARE Routine 12/07/2024 4:34 PM [employer] C[employer]TER GLUCOSE - POINT OF CARE Routine 12/07/2024 11:56 AM [employer] ME[employer] C[employer]TER GLUCOSE - POINT OF CARE Routine 12/07/2024 8:40 AM [employer] C[employer]TER PHOSPHORUS BLOOD Routine 12/07/2024 5:15 AM [employer] C[employer]TER MAGNESIUM BLOOD Routine 12/07/2024 5:15 AM [employer] ME[employer] C[employer]TER COMPREHENSIVE METABOLIC PANEL AM Draw 12/07/2024 5:15 AM [employer] ME[employer] C[employer]TER CBC W AUTO DIFFERENTIAL AM Draw 12/07/2024 5:15 AM [employer] ME[employer]TER GLUCOSE - POINT OF CARE Routine 12/07/2024 5:09 AM [employer] C[employer]TER GLUCOSE - POINT OF CARE Routine 12/06/2024 11:48 PM [employer] C[employer]TER GLUCOSE - POINT OF CARE Routine 12/06/2024 7:57 PM [employer]TER GLUCOSE - POINT OF CARE Routine 12/06/2024 4:45 PM [employer] C[employer]TER GLUCOSE - POINT OF CARE Routine 12/06/2024 12:29 PM [employer] ME[employer] C[employer]TER GLUCOSE - POINT OF CARE Routine 12/06/2024 8:17 AM [employer]PLE ME[employer] C[employer]TER PHOSPHORUS BLOOD Routine 12/06/2024 5:39 AM [employer] ME[employer] C[employer]TER MAGNESIUM BLOOD Routine 12/06/2024 5:39 AM [employer] ME[employer]TER COMPREHENSIVE METABOLIC PANEL AM Draw 12/06/2024 5:39 AM [employer]PLE ME[employer] C[employer]TER CBC W AUTO DIFFERENTIAL AM Draw 12/06/2024 5:39 AM [employer]PLE ME[employer] C[employer]TER INSULIN FREE + TOTAL Routine 12/06/2024 5:39 AM [employer] ME[employer]TER INSULIN LIKE GROWTH FACTOR 2 Routine 12/06/2024 5:39 AM [employer]PLE ME[employer] C[employer]TER IGF BINDING PROTEIN 1 Routine 12/06/2024 5:39 AM [employer]PLE ME[employer]TER HYDROXYBUTYRATE BETA Routine 12/06/2024 5:39 AM [employer]TER CORTISOL BLOOD AM Timed 12/06/2024 5:3 9 AM [employer]TER PROINSULIN Routine 12/06/2024 5:39 AM TEMPLE ME[employer] C[employer]TER C-PEPTIDE Routine 12/06/2024 5:39 AM TEMPLE ME[employer] C[employer]TER GLUCOSE - POINT OF CARE Routine 12/06/2024 4:14 AM [employer]PLE ME[employer] C[employer]TER GLUCOSE - POINT OF CARE Routine 12/05/2024 11:51 PM [employer] ME[employer] C[employer]TER GLUCOSE - POINT OF CARE Routine 12/05/2024 8:38 PM [employer]PLE ME[employer] C[employer]TER GLUCOSE - POINT OF CARE Routine 12/05/2024 3:59 PM [employer] ME[employer] C[employer]TER GLUCOSE - POINT OF CARE Routine 12/05/2024 12:17 PM [employer]PLE ME[employer] C[employer]TER C-PEPTIDE Routine 12/05/2024 10:08 AM [employer]PLE ME[employer] C[employer]TER PROINSULIN AM Draw 12/05/2024 10:07 AM [employer]PLE ME[employer] C[employer]TER INSULIN FREE + TOTAL AM Draw 12/05/2024 10:07 AM [employer] ME[employer] C[employer]TER GLUCOSE - POINT OF CARE Routine 12/05/2024 8:20 AM [employer]PLE ME[employer] C[employer]TER GLUCOSE - POINT OF CARE Routine 12/05/2024 7:48 AM [employer] ME[employer] C[employer]TER GLUCOSE - POINT OF CARE Routine 12/05/2024 7:38 AM [employer] ME[employer] C[employer]TER PHOSPHORUS BLOOD Routine 12/05/2024 6:32 AM [employer] ME[employer] C[employer]TER MAGNESIUM BLOOD Routine 12/05/2024 6:32 AM [employer] C[employer]TER COMPREHENSIVE METABOLIC PANEL AM Draw 12/05/2024 6:32 AM TEMPLE ME[employer] C[employer]TER CBC W AUTO DIFFERENTIAL AM Draw 12/05/2024 6:32 AM [employer] ME[employer] C[employer]TER GLUCOSE - POINT OF CARE Routine 12/05/2024 3:51 AM [employer]PLE ME[employer] C[employer]TER GLUCOSE - POINT OF CARE Routine 12/05/2024 3:39 AM [employer]PLE ME[employer] C[employer]TER GLUCOSE - POINT OF CARE Routine 12/05/2024 3:32 AM [employer]PLE ME[employer] C[employer]TER GLUCOSE - POINT OF CARE Routine 12/05/2024 3:27 AM [employer] ME[employer] C[employer]TER GLUCOSE - POINT OF CARE Routine 12/05/2024 3:17 AM [employer] ME[employer] C[employer]TER GLUCOSE - POINT OF CARE Routine 12/05/2024 3:05 AM [employer] ME[employer] C[employer]TER GLUCOSE - POINT OF CARE Routine 12/04/2024 7:42 PM [employer] ME[employer] C[employer]TER GLUCOSE - POINT OF CARE Routine 12/04/2024 6:53 PM [employer]TER GLUCOSE - POINT OF CARE Routine 12/04/2024 6:30 PM [employer] C[employer]TER GLUCOSE - POINT OF CARE Routine 12/04/2024 6:09 PM [employer] ME[employer]TER GLUCOSE - POINT OF CARE Routine 12/04/2024 5:46 PM [employer] ME[employer] US ABDOMEN LIMITED STAT 12/04/2024 11 :40 AM [employer] ME[employer] C[employer]TER Hepatic cirrhosis, unspecified hepatic cirrhosis type, unspecified whether ascites present (HCC) CARDIAC EKG ORDER 12/04/2024 11: 29 AM [employer]TER UREA NITROGEN URINE RANDOM STAT 12/04/2024 9:39 AM [employer] ME[employer]TER FERRITIN MICHELLE 12/04/2024 9:38 AM [employer]PLE ME[employer] C[employer]TER VITAMIN B12 MICHELLE 12/04/2024 9:38 AM [employer]PLE ME[employer] C[employer]TER FOLATE MICHELLE 12/04/2024 9:38 AM [employer]PLE ME[employer] C[employer]TER IRON + TRANSFERRIN PANEL STAT 12/04/2024 9:38 AM TEMPLE ME[employer] C[employer]TER GLUCOSE - POINT OF CARE Routine 12/04/2024 7:48 AM [employer]PLE ME[employer] C[employer]TER GLUCOSE - POINT OF CARE Routine 12/04/2024 5:46 AM [employer]PLE ME[employer] C[employer]TER GLUCOSE - POINT OF CARE Routine 12/04/2024 4:50 AM [employer]PLE ME[employer] C[employer]TER PHOSPHORUS BLOOD STAT 12/04/2024 4:33 AM [employer] ME[employer] C[employer]TER MAGNESIUM BLOOD STAT 12/04/2024 4:33 AM [employer] ME[employer] C[employer]TER COMPREHENSIVE METABOLIC PANEL STAT 12/04/2024 4:33 AM TEMPLE MEAT C[employer]TER CBC W AUTO DIFFERENTIAL STAT 12/04/2024 4:25 AM [employer] ME[employer] C[employer]TER GLUCOSE - POINT OF CARE Routine 12/04/2024 4:20 AM [employer]PLE ME[employer] C[employer]TER GLUCOSE - POINT OF CARE Routine 12/04/2024 2:29 AM [employer]TER GLUCOSE - POINT OF CARE Routine 12/04/2024 12:51 AM [employer]PLE ME[employer] C[employer]TER CREATININE URINE RANDOM STAT 12/04/2024 12:17 AM [employer]PLE ME[employer] C[employer]TER LYTES (NA K CL) URINE RANDOM PANEL STAT 12/04/2024 12:17 AM TEMPLE ME[employer] C[employer]TER URINALYSIS REFLEX MICROSCOPIC REFLEX CULTURE STAT 12/04/2024 12:17 AM [employer] ME[employer] C[employer]TER GLUCOSE - POINT OF CARE Routine 12/03/2024 11:09 PM [employer] ME[employer] C[employer]TER GLUCOSE - POINT OF CARE Routine 12/03/2024 8:33 PM [employer]TER GLUCOSE - POINT OF CARE Routine 12/03/2024 8:27 PM [employer]TER CULTURE BLOOD Timed 12/03/2024 6:17 PM [employer]TER CULTURE BLOOD Timed 12/03/2024 6:[address] HEAD WO CONTRAST STAT 12/03/2024 4 :56 PM [employer] ME[employer] C[employer]TER Altered mental status, unspecified altered mental status type Hepatic cirrhosis, unspecified hepatic cirrhosis type, unspecified whether ascites present (HCC) TROPONIN-I HIGH SENSITIVE REFLEX 1HOUR Timed 12/03/2024 3:26 PM [employer] SARS-COV-2 (COVID-19) FLU A/B RSV PCR RAPID STAT 12/03/2024 12:36 PM TEMPLE ME[employer] C[employer]TER PTT [facility] STAT 12/03/2024 12:35 PM [employer]PLE ME[employer] C[employer]TER PT-INR [facility] STAT 12/03/2024 12:35 PM [employer]PLE ME[employer] C[employer]TER AMMONIA STAT 12/03/2024 12:35 PM TEMPLE ME[employer] C[employer]TER TROPONIN-I HIGH SENSITIVE BASELINE + 1HR STAT 12/03/2024 12:35 PM [employer]PLE ME[employer] C[employer]TER MAGNESIUM BLOOD STAT 12/03/2024 12:35 PM [employer] ME[employer] C[employer]TER COMPREHENSIVE METABOLIC PANEL STAT 12/03/2024 12:35 PM [employer]PLE ME[employer] C[employer]TER CBC W AUTO DIFFERENTIAL STAT 12/03/2024 12:35 PM TEMPLE ME[employer] C[employer]TER EKG 12-LEAD STAT 12/03/2024 12:21 PM [employer]PLE ME[employer] C[employer]TER Altered mental status, unspecified altered mental status type XR CHEST 2VW STAT 12/03/2024 11:24 AM [employer]PLE ME[employer] C[employer]TER Altered mental status, unspecified altered mental status type GLUCOSE - POINT OF CARE Routine 11/13/2024 3:43 PM [employer] ME[employer]TER GLUCOSE - POINT OF CARE Routine 11/13/2024 10:46 AM [employer]PLE ME[employer] C[employer]TER GLUCOSE - POINT OF CARE Routine 11/13/2024 8:48 AM TEMPLE MEAT C[employer]TER CBC W AUTO DIFFERENTIAL Routine 11/13/2024 7:57 AM [employer]PLE ME[employer] C[employer]TER MAGNESIUM BLOOD Routine 11/13/2024 7:57 AM [employer] ME[employer] C[employer]TER PHOSPHORUS BLOOD Routine 11/13/2024 7:57 AM [employer] ME[employer] C[employer]TER COMPREHENSIVE METABOLIC PANEL Routine 11/13/2024 7:57 AM TEMPLE MEAT C[employer]TER GLUCOSE - POINT OF CARE Routine 11/12/2024 8:31 PM [employer]PLE ME[employer] C[employer]TER GLUCOSE - POINT OF CARE Routine 11/12/2024 3:43 PM [employer]PLE ME[employer] C[employer]TER GLUCOSE - POINT OF CARE Routine 11/12/2024 10:56 AM TEMPLE MEAT C[employer]TER CBC W AUTO DIFFERENTIAL Routine 11/12/2024 7:11 AM TEMPLE ME[employer] C[employer]TER MAGNESIUM BLOOD Routine 11/12/2024 7:11 AM TEMPLE ME[employer] C[employer]TER PHOSPHORUS BLOOD Routine 11/12/2024 7:11 AM [employer] MEAT C[employer]TER COMPREHENSIVE METABOLIC PANEL Routine 11/12/2024 7:11 AM [employer] ME[employer]TER GLUCOSE - POINT OF CARE Routine 11/12/2024 6:37 AM [employer] ME[employer] C[employer]TER GLUCOSE - POINT OF CARE Routine 11/11/2024 8:50 PM [employer]TER GLUCOSE - POINT OF CARE Routine 11/11/2024 3:10 PM [employer]PLE ME[employer] C[employer]TER CARDIAC EKG ORDER 11/11/2024 12: 23 PM [employer]PLE ME[employer]TER GLUCOSE - POINT OF CARE Routine 11/11/2024 11:44 AM TEMPLE ME[employer] C[employer]TER CBC W AUTO DIFFERENTIAL Routine 11/11/2024 9:07 AM TEMPLE ME[employer] C[employer]TER MAGNESIUM BLOOD Routine 11/11/2024 9:07 AM TEMPLE ME[employer] C[employer]TER PHOSPHORUS BLOOD Routine 11/11/2024 9:07 AM [employer] ME[employer] C[employer]TER COMPREHENSIVE METABOLIC PANEL Routine 11/11/2024 9:07 AM TEMPLE ME[employer] C[employer]TER GLUCOSE - POINT OF CARE Routine 11/11/2024 6:56 AM TEMPLE ME[employer] C[employer]TER GLUCOSE - POINT OF CARE Routine 11/10/2024 10:52 PM [employer]PLE ME[employer] C[employer]TER GLUCOSE - POINT OF CARE Routine 11/10/2024 4:39 PM [employer]PLE ME[employer] C[employer]TER GLUCOSE - POINT OF CARE Routine 11/10/2024 12:25 PM [employer]PLE ME[employer] C[employer]TER GLUCOSE - POINT OF CARE Routine 11/10/2024 6:59 AM TEMPLE MEAT C[employer]TER CBC W AUTO DIFFERENTIAL Routine 11/10/2024 6:23 AM TEMPLE ME[employer] C[employer]TER MAGNESIUM BLOOD Routine 11/10/2024 6:23 AM TEMPLE ME[employer] C[employer]TER PHOSPHORUS BLOOD Routine 11/10/2024 6:23 AM [employer]TER COMPREHENSIVE METABOLIC PANEL Routine 11/10/2024 6:23 AM TEMPLE ME[employer] C[employer]TER GLUCOSE - POINT OF CARE Routine 11/10/2024 1:23 AM [employer]PLE ME[employer] C[employer]TER GLUCOSE - POINT OF CARE Routine 11/09/2024 5:46 PM [employer]PLE [employer]TER GLUCOSE - POINT OF CARE Routine 11/09/2024 4:10 PM [employer]TER GLUCOSE - POINT OF CARE Routine 11/09/2024 11:38 AM [employer]PLE ME[employer] C[employer]TER CBC W AUTO DIFFERENTIAL Routine 11/09/2024 7:18 AM [employer]PLE [employer] C[employer]TER MAGNESIUM BLOOD Routine 11/09/2024 7:18 AM [employer]PLE ME[employer] C[employer]TER PHOSPHORUS BLOOD Routine 11/09/2024 7:18 AM [employer]TER COMPREHENSIVE METABOLIC PANEL Routine 11/09/2024 7:18 AM [employer]PLE [employer]TER GLUCOSE - POINT OF CARE Routine 11/09/2024 7:09 AM [employer]PLE [employer]TER GLUCOSE - POINT OF CARE Routine 11/08/2024 9:45 PM [employer] CBC W AUTO DIFFERENTIAL Routine 11/08/2024 5:13 PM [employer]TER MAGNESIUM BLOOD Routine 11/08/2024 5:13 PM [employer]TER PHOSPHORUS BLOOD Routine 11/08/2024 5:13 PM [employer]TER COMPREHENSIVE METABOLIC PANEL Routine 11/08/2024 5:13 PM [employer]TER GLUCOSE - POINT OF CARE Routine 11/08/2024 4:27 PM [employer]TER GLUCOSE - POINT OF CARE Routine 11/08/2024 12:04 PM [employer]TER GLUCOSE - POINT OF CARE Routine 11/08/2024 6:50 AM [employer]PLE [employer] C[employer]TER GLUCOSE - POINT OF CARE Routine 11/07/2024 9:06 PM [employer]TER GLUCOSE - POINT OF CARE Routine 11/07/2024 5:02 PM [employer]TER GLUCOSE - POINT OF CARE Routine 11/07/2024 2:46 PM [employer] HIV-1 HIV-2 ANTIBODY + HIV P24 AG PANEL STAT 11/07/2024 4:27 AM [employer]PLE ME[employer] C[employer]TER TSH REFLEX FREE T4 STAT 11/07/2024 4: 27 AM [employer]TER VITAMIN B12 MICHELLE 11/07/2024 4:27 AM [employer]TER FOLATE MICHELLE 11/07/2024 4:27 AM [employer]TER VITAMIN B1 STAT 11/07/2024 4:27 AM [employer]TER SYPHILIS ANTIBODY CASCADING REFLEX STAT 11/07/2024 4:27 AM [employer]PLE ME[employer] C[employer]TER CBC W AUTO DIFFERENTIAL STAT 11/07/2024 4:27 AM [employer]PLE ME[employer]TER MAGNESIUM BLOOD STAT 11/07/2024 4:27 AM [employer]PLE [employer] C[employer]TER PHOSPHORUS BLOOD STAT 11/07/2024 4:27 AM [employer]TER COMPREHENSIVE METABOLIC PANEL STAT 11/07/2024 4:27 AM [employer]TER GLUCOSE - POINT OF CARE Routine 11/07/2024 12:21 AM [employer] ME[employer] C[employer]TER URINALYSIS W/MICROSCOPIC REFLEX TO CULTURE STAT 11/06/2024 11:44 PM [employer] C[employer]TER URINE DRUG SCREEN IMMUNOASSAY STAT 11/06/2024 11:43 PM [employer]TER DIFFERENTIAL MANUAL FLUID STAT 11/06/2024 8:27 PM [employer]TER PROTEIN BODY FLUID STAT 11/06/2024 8: 27 PM [employer]TER GLUCOSE BODY FLUID STAT 11/06/2024 8: 27 PM [employer]TER CELL COUNT W DIFFERENTIAL FLUID STAT 11/06/2024 8:27 PM [employer]TER HYDROXYBUTYRATE BETA STAT 11/06/2024 8:26 PM [employer]TER CULTURE FLUID+GRAM STAIN STAT 11/06/2024 8:15 PM [employer]TER ED PARACENTESIS Routine 11/06/2024 6:28 PM [employer]TER Encephalopathy, unspecified type Decompensated cirrhosis (HCC) TROPONIN-I HIGH SENSITIVE REFLEX 1HOUR Timed 11/06/2024 4:33 PM [employer]TER SARS-COV-2 (COVID-19)+INFLU A+B PCR RAPID STAT 11/06/2024 3:40 PM [employer]TER TROPONIN-I HIGH SENSITIVE BASELINE + 1HR STAT 11/06/2024 3:30 PM [employer]TER AMMONIA STAT 11/06/2024 3:30 PM [employer]PLE ME[employer]TER EKG 12-LEAD STAT 11/06/2024 3:17 PM [employer] Encephalopathy, unspecified type CT HEAD WO CONTRAST STAT 11/06/2024 2 :47 PM [employer] Encephalopathy, unspecified type XR CHEST 1VW PORTABLE STAT 11/06/2024 2:29 PM [employer] Encephalopathy, unspecified type LIPASE BLOOD STAT 11/06/2024 12:54 PM [employer]PLE ME[employer] C[employer]TER PT-INR [facility] STAT 11/06/2024 12:54 PM [employer]TER COMPREHENSIVE METABOLIC PANEL STAT 11/06/2024 12:54 PM [employer]TER CBC W AUTO DIFFERENTIAL STAT 11/06/2024 12:54 PM [employer] NC ESOPHAGUS MOTILITY STUDY 10/31/2024 9:25 AM [employer]TER Dysphagia, unspecified type GLUCOSE - POINT OF CARE Routine 10/28/2024 10:51 AM [employer] ME[employer] C[employer]TER GLUCOSE - POINT OF CARE Routine 10/28/2024 8:12 AM [employer]PLE ME[employer] C[employer]TER PT-INR [facility] Routine 10/28/2024 6:14 AM [employer]PLE ME[employer] C[employer]TER CBC W/O DIFFERENTIAL Routine 10/28/2024 6:14 AM [employer]PLE [employer] C[employer]TER PHOSPHORUS BLOOD Routine 10/28/2024 6:14 AM [employer] C[employer]TER MAGNESIUM BLOOD Routine 10/28/2024 6:14 AM [employer]TER COMPREHENSIVE METABOLIC PANEL Routine 10/28/2024 6:14 AM [employer] C[employer]TER GLUCOSE - POINT OF CARE Routine 10/27/2024 8:28 PM [employer] C[employer]TER GLUCOSE - POINT OF CARE Routine 10/27/2024 4:53 PM [employer]TER GLUCOSE - POINT OF CARE Routine 10/27/2024 12:17 PM [employer]PLE [employer] C[employer]TER PT-INR SLH Routine 10/27/2024 8:18 AM [employer]PLE [employer] C[employer]TER CBC W/O DIFFERENTIAL Routine 10/27/2024 8:18 AM [employer] C[employer]TER PHOSPHORUS BLOOD Routine 10/27/2024 8:18 AM [employer] C[employer]TER MAGNESIUM BLOOD Routine 10/27/2024 8:18 AM [employer]TER COMPREHENSIVE METABOLIC PANEL Routine 10/27/2024 8:18 AM [employer]TER GLUCOSE - POINT OF CARE Routine 10/27/2024 8:01 AM [employer]TER GLUCOSE - POINT OF CARE Routine 10/26/2024 9:12 PM [employer]TER GLUCOSE - POINT OF CARE Routine 10/26/2024 9:14 AM [employer]TER VITAMIN D 1,25 DIHYDROXY Routine 10/26/2024 4:00 AM [employer]PLE ME[employer] C[employer]TER PT-INR SLH Routine 10/26/2024 4:00 AM [employer]PLE [employer] C[employer]TER CBC W/O DIFFERENTIAL Routine 10/26/2024 4:00 AM [employer]TER PHOSPHORUS BLOOD Routine 10/26/2024 4:00 AM [employer]TER MAGNESIUM BLOOD Routine 10/26/2024 4:00 AM [employer]TER COMPREHENSIVE METABOLIC PANEL Routine 10/26/2024 4:00 AM [employer]TER GLUCOSE - POINT OF CARE Routine 10/25/2024 8:57 PM [employer]TER GLUCOSE - POINT OF CARE Routine 10/25/2024 4:22 PM [employer]TER GLUCOSE - POINT OF CARE Routine 10/25/2024 12:17 PM [employer]TER SODIUM URINE RANDOM Routine 10/25/2024 1 0:40 AM [employer]TER GLUCOSE - POINT OF CARE Routine 10/25/2024 8:59 AM [employer] US ABDOMEN LTD W COMP DOPPLER Routine 10/25/2024 8:20 AM [employer] Hepatic encephalopathy (HCC) PTH RELATED PEPTIDE AM Draw 10/25/2024 4 :54 AM [employer]TER LDH BLOOD Routine 10/25/2024 4:54 AM [employer]TER VITAMIN D 25-HYDROXY AM Draw 10/25/2024 4:54 AM [employer] PTH INTACT W/O CALCIUM AM Draw 4:54 AM [employer]PLE [employer]TER PT-INR [facility] Routine 10/25/2024 4:54 AM [employer]TER CBC W/O DIFFERENTIAL Routine 10/25/2024 4:54 AM [employer]TER PHOSPHORUS BLOOD Routine 10/25/2024 4:54 AM [employer]TER MAGNESIUM BLOOD Routine 10/25/2024 4:54 AM [employer] COMPREHENSIVE METABOLIC PANEL Routine 10/25/2024 4:54 AM [employer]TER GLUCOSE - POINT OF CARE Routine 10/24/2024 9:28 PM [employer]TER GLUCOSE - POINT OF CARE Routine 10/24/2024 5:21 PM [employer] GLUCOSE - POINT OF CARE Routine 10/24/2024 12:31 PM [employer] CALCIUM IONIZED WHOLE BLOOD AM Draw 10/24/2024 8:47 AM [employer] HEMOGLOBIN A1C Routine 10/24/2024 8:47 AM [employer] PT-INR SLH Routine 10/24/2024 8:47 AM [facility] [employer] CBC W/O DIFFERENTIAL Routine 10/24/2024 8:47 AM [employer] [employer] PHOSPHORUS BLOOD Routine 10/24/2024 8:47 AM [employer] [employer] MAGNESIUM BLOOD Routine 10/24/2024 8:47 AM [facility] [employer] COMPREHENSIVE METABOLIC PANEL Routine 10/24/2024 8:47 AM [employer] [employer] LACTIC ACID BLOOD AM Draw 10/24/2024 8:4 7 AM [facility] [employer] GLUCOSE - POINT OF CARE Routine 10/24/2024 8:29 AM [facility] [employer] GLUCOSE - POINT OF CARE Routine 10/24/2024 6:14 AM [employer] [employer] GLUCOSE - POINT OF CARE Routine 10/23/2024 11:50 PM [facility] [employer] GLUCOSE - POINT OF CARE Routine 10/23/2024 9:56 PM [facility] [employer] GLUCOSE - POINT OF CARE Routine 10/23/2024 9:26 PM [facility] [employer] CT HEAD WO CONTRAST STAT 10/23/2024 9 :23 PM [facility] [employer] Hepatic encephalopathy (HCC) XR CHEST 1VW PORTABLE STAT 10/23/2024 8:09 PM [employer] [employer] Hepatic encephalopathy (HCC) BLOOD GASES REINA + COOX PANEL STAT 10/23/2024 6:25 PM [employer] [employer] CULTURE BLOOD Timed 10/23/2024 6:25 PM [employer] [employer] HYDROXYBUTYRATE BETA STAT 10/23/2024 6:11 PM [employer] [employer] LACTIC ACID BLOOD REFLEX TO REPEAT Timed STAT 10/23/2024 6:11 PM [employer] [employer] CULTURE BLOOD Timed 10/23/2024 6:11 PM [facility] [employer] DIFFERENTIAL MANUAL FLUID STAT 10/23/2024 5:27 PM [employer] [employer] CELL COUNT W DIFFERENTIAL FLUID STAT 10/23/2024 5:27 PM [employer] [employer] CULTURE FLUID+GRAM STAIN STAT 10/23/2024 5:27 PM [employer] [employer] ED PARACENTESIS Routine 10/23/2024 4:59 PM [employer] [employer] LACTIC ACID BLOOD REFLEX TO REPEAT Timed STAT 10/23/2024 3:09 PM [employer] [employer] URINALYSIS W/MICROSCOPIC REFLEX TO CULTURE STAT 10/23/2024 3:09 PM [employer] [employer] MAGNESIUM BLOOD STAT 10/23/2024 12:54 PM [employer] [employer] AMMONIA STAT 10/23/2024 12:54 PM [employer] [employer] LACTIC ACID BLOOD REFLEX TO REPEAT STAT 10/23/2024 12:54 PM [employer] [employer] PT-INR [facility] STAT 10/23/2024 12:54 PM [employer] [employer] COMPREHENSIVE METABOLIC PANEL STAT 10/23/2024 12:54 PM [employer] [employer] CBC W AUTO DIFFERENTIAL STAT 10/23/2024 12:54 PM [facility] [employer] GLUCOSE - POINT OF CARE Routine 09/30/2024 11:54 AM [facility] [employer] GLUCOSE - POINT OF CARE Routine 09/30/2024 7:54 AM [employer] COMPREHENSIVE METABOLIC PANEL AM Draw 09/30/2024 12:21 AM [employer] [employer] CBC W AUTO DIFFERENTIAL Routine 09/30/2024 12:21 AM [employer] [employer] MAGNESIUM BLOOD Routine 09/30/2024 12:21 AM [employer] PHOSPHORUS BLOOD Routine 09/30/2024 12:2 1 AM [facility] [employer] GLUCOSE - POINT OF CARE Routine 09/29/2024 9:06 PM [facility] MEAT CUTTER GLUCOSE - POINT OF CARE Routine 09/29/2024 5:49 PM [employer] [facility] GLUCOSE - POINT OF CARE Routine 09/29/2024 11:56 AM [employer] [employer] GLUCOSE - POINT OF CARE Routine 09/29/2024 8:39 AM [employer] COMPREHENSIVE METABOLIC PANEL AM Draw 09/29/2024 6:03 AM [employer] CBC W AUTO DIFFERENTIAL Routine 09/29/2024 6:03 AM [employer] MAGNESIUM BLOOD Routine 09/29/2024 6:03 AM [employer] PHOSPHORUS BLOOD Routine 09/29/2024 6:03 AM [employer] GLUCOSE - POINT OF CARE Routine 09/28/2024 8:37 PM [employer] GLUCOSE - POINT OF CARE Routine 09/28/2024 6:42 PM [employer] URINALYSIS REFLEX MICROSCOPIC REFLEX CULTURE STAT 09/28/2024 4:48 PM [employer] AMMONIA STAT 09/28/2024 11:53 AM [employer] PT-INR [facility] STAT 09/28/2024 11:53 AM [employer] MAGNESIUM BLOOD STAT 09/28/2024 11:53 AM [employer] COMPREHENSIVE METABOLIC PANEL STAT 09/28/2024 11:53 AM [employer] CBC W AUTO DIFFERENTIAL STAT 09/28/2024 11:53 AM [employer] from Last 3 Months Results * (ABNORMAL) GLUCOSE - POINT OF CARE (12/08/2024 12:03 PM [employer]) Only the most recent of98 resultswithin the time period is included. Pathologist [facility] Glucose WB/POC 246(H) 70 - 99 mg/dL 12/08/2024 12:03 PM [employer] [facility] LABORATORY [place] [employer] Specimen Type Cap Fingerstick 2024 12:03 PM [employer]TER [facility] Blood BLOOD SPECIMEN / Unknown 12/08/2024 12:03 PM [employer] 12/08/2024 12:03 PM [employer] Darek Teran MD LAB - POINT OF CARE ORDERABLES [facility] [address] [place] [address], [facility] [phone] * (ABNORMAL) CBC W AUTO DIFFERENTIAL (12/08/2024 5:06 AM [employer]) Only the most recent of18 resultswithin the time period is included. Pathologist [facility] WBC 3.6(L) 4.0 - 10.7 x10E9/L 12/08/2024 5:38 AM [employer] [facility] RBC Count 2.38(L) 4.30 - 5.80 x10E12/L 12/08/2024 5:38 AM [employer] [facility] Hemoglobin 7.6(L) 13.3 - 17.5 g/dL 12/08/2024 5:38 AM [facility] Hematocrit 22.2(L) 38.7 - 51.1 % 12/08/2024 5:38 AM [facility] MCV 93.3 80.0 - 98.0 fL 12/08/2024 5:38 AM [facility] MCH 31.9 26.7 - 33.6 pg 12/08/2024 5:38 AM [facility] MCHC 34.2 31.7 - 36.3 g/dL 12/08/2024 5:38 AM [facility] RDW-CV 17.2(H) 11.3 - 14.8 % 12/08/2024 5:38 AM [facility] Platelet Count 121(L) 150 - 420 x10E9/L 12/08/2024 5:38 AM [facility] MPV 11.1 7.8 - 11.4 fL 12/08/2024 5:38 AM [facility] Neutrophil % 76.9(H) 41.0 - 74.0 % 12/08/2024 5:38 AM [facility] Lymphocyte % 7.2(L) 17.0 - 47.0 % 12/08/2024 5:38 AM [facility] Monocyte % 10.9 3.0 - 11.0 % 12/08/2024 5:38 AM [facility] Eosinophil % 3.9 0.0 - 7.0 % 12/08/2024 5:38 AM [facility] Basophil % 0.3 0.0 - 1.6 % 12/08/2024 5:38 AM [facility] Immature Granulocytes % 0.8 0.0 - 1.0 % 12/08/2024 5:38 AM [facility] Neutrophil Absolute 2.76 1.60 - 7.50 x10E9/L 12/08/2024 5:38 AM [facility] Lymphocyte Absolute 0.26(L) 1.00 - 4.40 x10E9/L 12/08/2024 5:38 AM [facility] Monocyte Absolute 0.39 0.15 - 1.00 x10E9/L 12/08/2024 5:38 AM [facility] Eosinophil Absolute 0.14 0.00 - 0.60 x10E9/L 12/08/2024 5:38 AM [facility] Basophil Absolute 0.01 0.00 - 0.13 x10E9/L 12/08/2024 5:38 AM [facility] Blood BLOOD SPECIMEN / Unknown Venipuncture / Unknown 12/08/2024 5:06 AM [facility] 12/08/2024 5:20 AM [facility] Juancarlos Lujan MD LAB - HEMATOLOGY ORD ERABLES [facility] [address] [place] [address], [facility] [phone] * (ABNORMAL) COMPREHENSIVE METABOLIC PANEL (12/08/2024 5:06 AM [facility]) Only the most recent of23 resultswithin the time period is included. BUN 27(H) 7 - 26 mg/dL 12/08/2024 5:56 AM [facility] Creatinine 1.28(H) 0.71 - 1.16 mg/dL 12/08/2024 5:56 AM [facility] Sodium 136 136 - 145 mmol/L 12/08/2024 5:56 AM [facility] Potassium 3.7 3.5 - 4.5 mmol/L 12/08/2024 5:56 AM [facility] Chloride 110(H) 98 - 107 mmol/L 12/08/2024 5:56 AM [facility] CO2 16(L) 22 - 29 mmol/L 12/08/2024 5:56 AM [facility] Glucose 171(H) 70 - 99 mg/dL 12/08/2024 5:56 AM [facility] Calcium 9.5 8.4 - 10.2 mg/dL 12/08/2024 5:56 AM [facility] Protein Total 5.9(L) 6.0 - 8.3 g/dL 12/08/2024 5:56 AM [facility] Albumin 2.7(L) 3.4 - 5.0 g/dL 12/08/2024 5:56 AM [facility] Bilirubin Total 0.9 0.2 - 1.2 mg/dL 12/08/2024 5:56 AM [facility] Alkaline Phosphatase 251(H) 40 - 150 U/L 12/08/2024 5:56 AM [facility] ALT 31 5 - 55 U/L 12/08/2024 5:56 AM [facility] AST 27 5 - 34 U/L 12/08/2024 5:56 AM [facility] Anion Gap 10 6 - 16 12/08/2024 5:56 AM [facility] BUN/Creatinine Ratio 21 7 - 23 12/08/2024 5:56 AM [facility] Osmolality Calculated 291 275 - 295 mOsm/kg 12/08/2024 5:56 AM [facility] Albumin/Globulin Ratio 0.8(L) 1.1 - 2.3 12/08/2024 5:56 AM [facility] eGFR by CKD-EPI 57(L) >=90 mL/min/1.7 3 m2 12/08/2024 5:56 AM [facility] Blood BLOOD SPECIMEN / Unknown Venipuncture / Unknown 12/08/2024 5:06 AM [employer] [employer] 12/08/2024 5:28 AM [employer] [employer] Juancarlos Lujan MD LAB - CHEMISTRY ORDUlysses RIVAS [address] [address], [facility] [phone] * (ABNORMAL) PHOSPHORUS BLOOD (12/08/2024 5:06 AM [employer]) Only the most recent of19 resultswithin the time period is included. Phosphorus 1.9(L) 2.8 - 5.1 mg/dL 12/08/2024 5:56 AM [facility] Blood BLOOD SPECIMEN / Unknown Venipuncture / Unknown 12/08/2024 5:06 AM [employer] [employer] 12/08/2024 5:28 AM [employer] Juancarlos Lujan MD LAB - CHEMISTRY JOHN PAUL RIVAS [facility] [address] [place] [address], [facility] [phone] * MAGNESIUM BLOOD (12/08/2024 5:06 AM [employer]) Only the most recent of22 resultswithin the time period is included. Magnesium 2.1 1.6 - 2.6 mg/dL 12/08/2024 5:56 AM [employer] [facility] Blood BLOOD SPECIMEN / Unknown Venipuncture / Unknown 12/08/2024 5:06 AM [employer] 12/08/2024 5:28 AM [employer] Juancarlos Lujan MD LAB - CHEMISTRY JOHN PAUL RIVAS Performing Organization Address City/[facility]/ZIP Co de Phone Number [address] [address], [facility] [phone] * IGF BINDING PROTEIN 1 (12/06/2024 5:39 AM [employer]) Pathologist [facility] IGF Binding Protein-1 19 5 - 34 ng/mL 12/17/2024 3:04 AM [employer] [email or web address] ([facility]) Comment: The limit of detection of this assay is 5 ng/mL. A proportion of normal patients will have results less than 5 ng/mL. This test was developed and its analytical performance characteristics have been determined by [facility]. It has not been cleared or approved by FDA. This assay has been validated pursuant to the CLIA regulations and is used for clinical purposes. Performed by: [facility] [address] [address] Catie Pope MD, PhD, JIMMY, Blood BLOOD SPECIMEN / Unknown Lab Venipuncture / Unknown 12/06/2024 5:39 AM [employer] 12/06/2024 5:58 AM [employer] Juancarlos Lujan MD LAB - CHEMISTRY JOHN PAUL RIVAS [email or web address]) [address] [place] [address], [facility] * INSULIN LIKE GROWTH FACTOR 2 (12/06/2024 5:39 AM [employer]) Pathologist [facility] INSULIN-LIKE GROWTH FACTOR (IGF-2) 156 ng/mL 12/09/2024 1:29 PM [employer] ([facility]) Comment: INTERPRETIVE INFORMATION: Insulin-Like Growth Factor 2 Prepubertal (0-11 years old): 127 to 473 ng/mL Postpubertal (12 years and older): 180 to 580 ng/mL This test was developed and its performance characteristics determined by [facility]. It has not been cleared or approved by the US Food and Drug Administration. This test was performed in a CLIA certified laboratory and is intended for clinical purposes. Performed By: [facility] [address] [place] [address] Cardiovascular Operating Room Nurse: Armando Lowe MD, PhD CLIA Number: [id number] Blood BLOOD SPECIMEN / Unknown Lab Venipuncture / Unknown 12/06/2024 5:39 AM [employer] 12/06/2024 5:58 AM [employer] Juancarlos Lujan MD LAB - CHEMISTRY JOHN PAUL RIVAS [facility]) [address] [place] [address] * INSULIN FREE + TOTAL (12/06/2024 5:39 AM [employer]) Only the most recent of2 resultswithin the time period is included. [facility] Insulin Free 9 3 - 25 uIU/mL 12/10/2024 9:36 AM [employer] ([facility]) Insulin 11 3 - 25 uIU/mL 12/10/2024 9:36 AM [employer]TER [facility]) Comment: INTERPRETIVE INFORMATION: Insulin, Free and Total This test reacts on a nearly equimolar basis with the analogs insulin aspart, insulin glargine, and insulin lispro. Insulin detemir exhibits approximately 50 percent cross-reactivity. Test reactivity with insulin glulisine is negligible (<3 percent). To convert to pmol/L, multiply uIU/mL by 6.0. Reference intervals established for fasting specimens. Performed By: [facility] [address] [place] [address] Cardiovascular Operating Room Nurse: Armando Lowe MD, PhD CLIA Number: [id number] Blood BLOOD SPECIMEN / Unknown Lab Venipuncture / Unknown 12/06/2024 5:39 AM [employer] 12/06/2024 5:58 AM [employer] Juancarlos Lujan MD LAB - CHEMISTRY ORDUlysses RIVAS Performing Organization Address [facility] de Phone Number [facility]) [address] [place] [address] * (ABNORMAL) C-PEPTIDE (12/06/2024 5:39 AM [employer]) Only the most recent of2 resultswithin the time period is included. C-Peptide 6.9(H) 0.5 - 3.3 ng/mL 12/08/2024 9:16 PM [employer] [facility] ([facility]) Comment: INTERPRETIVE INFORMATION: Serum, C-Peptide Reference Interval applies to fasting specimens. To convert to nmol/L, multiply by 0.33 Performed By: [facility] [address] [place] [address] Cardiovascular Operating Room Nurse: Armando Lowe MD, PhD CLIA Number: [id number] Blood BLOOD SPECIMEN / Unknown Lab Venipuncture / Unknown 12/06/2024 5:39 AM [employer] 12/06/2024 5:58 AM [employer] Juancarlos Lujan MD LAB - CHEMISTRY JOHN PAUL RIVAS Performing Organization Address [facility] de Phone Number [facility] ([facility]) [address] [place] [address] * (ABNORMAL) PROINSULIN (12/06/2024 5:39 AM [employer]) Only the most recent of2 resultswithin the time period is included. Proinsulin 10.1(H) <=7.2 pmol/L 12/10/2024 7:21 AM [employer] [facility] | [facility] ([facility]) Comment: Performed By: [facility] [address] [place] [address] Cardiovascular Operating Room Nurse: Armando Lowe MD, PhD CLIA Number: [id number] Blood BLOOD SPECIMEN / Unknown Lab Venipuncture / Unknown 12/06/2024 5:39 AM [employer] 12/06/2024 5:58 AM [employer] Juancarlos Lujan MD LAB - CHEMISTRY JOHN PAUL RIVAS [facility] ([facility]) [address] [place] [address], [facility] * HYDROXYBUTYRATE BETA (12/06/2024 5:39 AM [employer]) Only the most recent of3 resultswithin the time period is included. Beta-Hydroxybu tyrate <0.50 <0.50 mmol/L 12/06/2024 6:29 AM [employer] [facility] Blood BLOOD SPECIMEN / Unknown Lab Venipuncture / Unknown 12/06/2024 5:39 AM [employer] 12/06/2024 6:02 AM [employer] Juancarlos Lujan MD LAB - CHEMISTRY JOHN PAUL RIVAS Performing Organization Address [facility] Co de Phone Number [address] [address], [facility] [phone] * CORTISOL BLOOD AM (12/06/2024 5:39 AM [employer]) Cortisol AM 11.6 3.7 - 19.4 ug/dL 12/06/2024 6:47 AM [employer] [facility] Blood BLOOD SPECIMEN / Unknown Lab Venipuncture / Unknown 12/06/2024 5:39 AM [employer] 12/06/2024 6:02 AM [employer] Narrative [facility] - 12/06/2024 6:47 AM [employer] Normal cortisol levels are generally highest in the morning hours and lowest from late evening through the hospital carrier 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 The PM measurements of cortisol run approximately one-half to one-third of the AM values. Juancarlos Lujan MD LAB - CHEMISTRY JOHN PAUL RIVAS Performing Organization Address City/[facility]/ZIP Co de Phone Number [address] [address], [facility] [phone] * US Abdomen Limited (12/04/2024 11:40 AM [employer]) Anatomical Region Laterality Modality Abdomen Ultrasound 12/04/2024 11:4 9 AM [employer] Impressions 12/04/2024 1:29 PM [employer] IMPRESSION: 1. Hepatic cirrhosis with sequela of portal hypertension including moderate volume ascites. 2. No cholelithiasis. 3. Moderate to large volume ascites. > Interpreting Provider: Patsy Orellana MD on 12/04/2024 1:29 PM Narrative 12/04/2024 1:29 PM [employer] PROCEDURE: US ABDOMEN LIMITED DATE/TIME OF EXAM: 12/04/2024 11:40 AM CLINICAL INFORMATION: None relevant/not provided if blank. Indication: K74.60: Hepatic cirrhosis, unspecified hepatic cirrhosis type, unspecified whether ascites present (HCC) Additional History: COMPARISON: Ultrasound from 10/25/2024 TECHNIQUE: Real-time ultrasound of the upper abdomen with DICOM image capture performed by pet technologist. FINDINGS: The liver is coarse in [...] abdomen with DICOM image capture performed by pet technologist. FINDINGS: The liver is coarse in [...] * CARDIAC EKG ORDER (12/04/2024 11:29 AM [employer]) Only the most recent of2 resultswithin the time period is included. Narrative 12/04/2024 11:29 AM [employer] Ordered by an unspecified provider. Scanned Document CARDIAC SERVICES ORD ERABLES * UREA NITROGEN URINE RANDOM (12/04/2024 9:39 AM [employer]) Urea Nitrogen Random Urine 361 Not Established mg/dL 12/04/2024 11:02 AM [employer] [facility] Urine URINE SPECIMEN OBTAINED BY CLEAN CATCH PROCEDURE / Unknown Collection / Unknown 12/04/2024 9:39 AM [employer] 12/04/2024 10:13 AM [employer] Juancarlos Lujan MD LAB - URINE CHEMISTR Y ORDERABLES Performing Organization Address [facility]/State/[facility] Co de Phone Number [address] [address], [facility] [phone] * FOLATE (12/04/2024 9:38 AM [employer]) Only the most recent of2 resultswithin the time period is included. Folate 10.1 7.0 - 31.4 ng/mL 12/04/2024 11:27 AM [employer] [facility] Blood BLOOD SPECIMEN / Unknown Venipuncture / Unknown 12/04/2024 9:38 AM [employer] 12/04/2024 10:14 AM [employer] Juancarlos Lujan MD LAB - CHEMISTRY JOHN PAUL RIVAS [address] [address], [place] [phone] * (ABNORMAL) VITAMIN B12 (12/04/2024 9:38 AM [employer]) Only the most recent of2 resultswithin the time period is included. Vitamin B12 1,880(H) 213 - 816 pg/mL 12/04/2024 11:27 AM [employer] [facility] Blood BLOOD SPECIMEN / Unknown Venipuncture / Unknown 12/04/2024 9:38 AM [employer] 12/04/2024 10:14 AM [employer] Juancarlos Lujan MD LAB - CHEMISTRY JOHN PAUL RIVAS Performing Organization Address City/[facility]/ZIP Co de Phone Number [address] [address], [place] [phone] * (ABNORMAL) IRON + TRANSFERRIN PANEL (12/04/2024 9:38 AM [employer]) Iron 64 50 - 175 ug/dL 12/04/2024 10:48 AM [facility] Transferrin 150(L) 174 - 382 mg/dL 12/04/2024 10:48 AM [facility] Transferrin Saturation % 34 16 - 50 % 12/04/2024 10:48 AM [facility] TIBC Calculated 188(L) 240 - 450 ug/dL 12/04/2024 10:48 AM [facility] Blood BLOOD SPECIMEN / Unknown Venipuncture / Unknown 12/04/2024 9:38 AM [employer] 12/04/2024 10:15 AM [employer] Juancarlos Lujan MD LAB - CHEMISTRY JOHN PAUL RIVAS [address] [address], [place] [phone] * (ABNORMAL) FERRITIN (12/04/2024 9:38 AM [employer]) Ferritin 339(H) 22 - 275 ng/mL 12/04/2024 11:05 AM [facility] Blood BLOOD SPECIMEN / Unknown Venipuncture / Unknown 12/04/2024 9:38 AM [employer] 12/04/2024 10:15 AM [employer] Juancarlos Lujan MD LAB - CHEMISTRY JOHN PAUL RIVAS [address] [address], [facility] [phone] * (ABNORMAL) URINALYSIS REFLEX MICROSCOPIC REFLEX CULTURE (12/04/2024 12:17 AM [employer]) Only the most recent of2 resultswithin the time period is included. Color UA Yellow Straw, Yellow 12/04/2024 12:33 AM [facility] Clarity UA Clear Clear 12/04/2024 12:33 AM [facility] Specific [place] UA 1.010 1.005 - 1.030 12/04/2024 12:33 AM [facility] pH UA 5.0 5.0 - 8.0 pH 12/04/2024 12:33 AM [facility] Protein UA Negative Negative 12/04/2024 12:33 AM [facility] Glucose UA 1+(A) Negative 12/04/2024 12:33 AM [facility] Ketone UA Negative Negative 12/04/2024 12:33 AM [facility] Bilirubin UA Negative Negative 12/04/2024 12:33 AM [facility] Blood UA Negative Negative 12/04/2024 12:33 AM [facility] Nitrite UA Negative Negative 12/04/2024 12:33 AM [facility] Leukocyte Esterase Negative Negative 12/04/2024 12:33 AM [facility] Urobilinogen UA Negative Negative mg/dL 12/04/2024 12:33 AM [facility] Comment UA Microscopic not indicated. 12/04/2024 12:33 AM [facility] Urine URINE SPECIMEN OBTAINED BY CLEAN CATCH PROCEDURE / Unknown Collection / Unknown 12/04/2024 12:17 AM [employer] 12/04/2024 12:22 AM [employer] Narrative [facility] - 12/04/2024 12:33 AM [employer] Sarika Martin PA-C LAB - URINALY SIS ORDERABLES Performing Organization Address City/[facility]/ZIP Co de Phone Number [address] [address], [place] [phone] * LYTES (NA K CL) URINE RANDOM PANEL (12/04/2024 12:17 AM [employer]) Sodium Urine 52 Not Established mmol/L 12/04/2024 12:47 AM [employer] [facility] Potassium Urine 22.9 Not Established mmol/L 12/04/2024 12:47 AM [employer] [facility] Chloride Random Urine 82 Not Established mmol/L 12/04/2024 12:47 AM [employer] [facility] Urine URINE SPECIMEN OBTAINED BY CLEAN CATCH PROCEDURE / Unknown Collection / Unknown 12/04/2024 12:17 AM [employer] 12/04/2024 12:22 AM [employer] Juancarlos Lujan MD LAB - URINE CHEMISTR Y ORDERABLES Performing Organization Address City/[facility]/ZIP Co de Phone Number [address] [address], [place] [phone] * CREATININE URINE RANDOM (12/04/2024 12:17 AM [employer]) Creatinine Urine 55.70 Not Established mg/dL 12/04/2024 12:47 AM [employer] [facility] Urine URINE SPECIMEN OBTAINED BY CLEAN CATCH PROCEDURE / Unknown Collection / Unknown 12/04/2024 12:17 AM [employer] 12/04/2024 12:22 AM [employer] Juancarlos Lujan MD LAB - URINE CHEMISTR Y ORDERABLES [address] [address], [place] [phone] * CULTURE BLOOD (12/03/2024 6:17 PM [employer]) Only the most recent of4 resultswithin the time period is included. Culture No growth day 5 ADOLPH 12/08/2024 11:01 PM [employer] [facility] MICROBIOLOGY Blood PERIPHERAL BLOOD / Unknown Lab Venipuncture / Unknown 12/03/2024 6:17 PM [employer] 12/03/2024 6:39 PM [employer] Homer Moran MD LAB - MICROBIO LOGY ORDERABLES [facility] MICROBIOLOGY [address] [place] [address], [facility] [phone] * CT Head Wo Contrast (12/03/2024 4:56 PM [employer]) Only the most recent of3 resultswithin the time period is included. Anatomical Region Laterality Modality Head Computed Tomogra phy 12/03/2024 5:00 PM [employer] Impressions 12/03/2024 5:01 PM [employer] IMPRESSION: 1. No acute intracranial process. > Interpreting Provider: Abraham Mahajan MD on 12/03/2024 5:01 PM Narrative 12/03/2024 5:01 PM [employer] PROCEDURE: CT HEAD WO CONTRAST DATE/TIME OF [...] extra-axial fluid collections are identified. There is [id number] cerebral volume loss with associated ex vacuo [...] or extra-axial fluid collections are identified. Thereis [id number] cerebral volume loss with associated ex vacuoventricular [...] HIGH SENSITIVE REFLEX 1HOUR (12/03/2024 3:26 PM [employer]) Only the most recent of2 resultswithin the time period is included. Troponin I High Sensitive 11 <=35 ng/L 12/03/2024 4:33 PM [employer] [facility] Delta Troponin I HS 12/03/2024 4:33 PM [employer]TER [facility] Comment:Delta value intentio santy not calculated. Baseline to 1 hour specimen collection interval exceeded. Blood BLOOD SPECIMEN / Unknown Venipuncture / Unknown 12/03/2024 3:26 PM [employer] 12/03/2024 3:56 PM [employer] Sarika Martin PA-C LAB - VICE PRESIDENT OF TALENT MANAGEMENT RY ORDERABLES Performing Organization Address [facility] Co de Phone Number [facility] [address] [place] [phone] [phone] * SARS-COV-2 (COVID-19) FLU A/B RSV PCR RAPID (12/03/2024 12:36 PM [employer] [employer]) COVID-19 PCR Not detected Not detected 12/03/19 1:56 PM [employer] [facility] Influenza A PCR Not detected Not detected 12/03/2024 1:56 PM [facility] Influenza B PCR Not detected Not detected 12/03/2024 1:56 PM [facility] RSV PCR Not detected Not detected 12/03/2024 1:56 PM [employer] [facility] Microbiology SPECIMEN FROM NASOPHARYNGEAL STRUCTURE / Unknown Collection / Unknown 12/03/2024 12:36 PM [employer] 12/03/2024 12:40 PM [employer] Narrative [facility] - 12/03/2024 1:56 PM [employer] This nucleic acid amplification assay has been [...] - MICROBI OLOGY ORDERABLES Performing Organization Address [facility]/ZIP Co de Phone Number [facility] [address] [place] [address], [facility] [phone] * [facility] (12/03/2024 12:35 PM [employer]) APTT 26.4 23.0 - 38.4 Seconds 12/03/2024 1:06 PM [facility] Comment:Suggested therapeuti c range for full dose I.V. unfractionated heparin therapy for venous thromboembolism is 71 to 109 seconds. Blood BLOOD SPECIMEN / Unknown Venipuncture / Unknown 12/03/2024 12:35 PM [employer] 12/03/2024 12:43 PM [employer] [facility] - COAGULA TION ORDERABLES Performing Organization Address City/Select [facility] Co de Phone Number [address] [address], [facility] [phone] * PT-INR [facility] (12/03/2024 12:35 PM TEMPLE MEAT CUTTER) Only the most recent of9 resultswithin the time period is included. PT 14.7 12.1 - 14.8 Seconds 12/03/2024 1:06 PM [facility] INR 1.2 See Comment 12/03/2024 1:06 PM TEMPLE MEAT CUTTER [facility] Comment:The suggested therap eutic range for standard coumadin (warfarin) therapy is an INR of 2.0-3.0. For high-risk patients (Mechanical Mitral Valve Prosthesis, etc.), the suggested prophylactic therapeutic range is an INR of 2.5-3.5. Blood BLOOD SPECIMEN / Unknown Venipuncture / Unknown 12/03/2024 12:35 PM TEMPLE MEAT CUTTER 12/03/2024 12:43 PM TEMPLE MEAT CUTTER Sarika GALVIN-C LAB - COAGULA TION ORDERABLES [address] [address], [place] [phone] * TROPONIN-I HIGH SENSITIVE BASELINE + 1HR (12/03/2024 12:35 PM TEMPLE MEAT CUTTER) Only the most recent of2 resultswithin the time period is included. Troponin I High Sensitive 11 <=35 ng/L 12/03/2024 1:15 PM TEMPLE MEAT CUTTER [facility] Blood BLOOD SPECIMEN / Unknown Venipuncture / Unknown 12/03/2024 12:35 PM TEMPLE MEAT CUTTER 12/03/2024 12:42 PM TEMPLE MEAT CUTTER Sarika [employer] LAB - VICE PRESIDENT OF TALENT MANAGEMENT RY ORDERABLES Performing Organization Address City/[facility]/ZIP Co de Phone Number [address] [address], [facility] [phone] * AMMONIA (12/03/2024 12:35 PM TEMPLE MEAT CUTTER) Only the most recent of4 resultswithin the time period is included. Ammonia 51 <=72 umol/L 12/03/2024 12:55 PM TEMPLE MEAT CUTTER [facility] Blood BLOOD SPECIMEN / Unknown Venipuncture / Unknown 12/03/2024 12:35 PM TEMPLE MEAT CUTTER 12/03/2024 12:55 PM TEMPLE MEAT CUTTER Sarika Martin PA-C LAB - VICE PRESIDENT OF TALENT MANAGEMENT RY ORDERABLES Performing Organization Address [facility]/ZIP Co de Phone Number [address] [address], [place] [phone] * EKG 12-LEAD (12/03/2024 12:21 PM TEMPLE MEAT CUTTER) Only the most recent of2 resultswithin the time period is included. Ventricular Rate 66 BPM SL MUSE Atrial Rate 66 BPM [facility] MUSE P-R Interval 110 ms [facility] MUSE QRS Duration ms 86 ms [facility] MUSE Q-T Interval ms 378 ms [facility] MUSE QTC Calculation (Bezet) 396 ms SL MUSE Calculated P [place] 15 degrees SL MUSE Calculated T [place] 85 degrees SL MUSE Interpretation EKG SINUS RHYTHM POSSIBLE INFERIOR INFARCT , AGE UNDETERMINED ANTERIOR INFARCT (CITED ON OR BEFORE 30-AUG-2024) ABNORMAL ECG WHEN COMPARED WITH ECG OF 06-NOV-2024 15:17, BORDERLINE CRITERIA FOR INFERIOR INFARCT ARE NOW PRESENT Confirmed by NESTOR LEE MD ([id number]) on 12/13/2024 11:34:09 AM [facility] MUSE 12/03/2024 12:2 1 PM TEMPLE MEAT CUTTER 12/13/2024 11:34 AM TEMPLE MEAT CUTTER Sarika Martin PA-Isha ECG ORDERABLE S [facility] MUSE * XR CHEST 2VW (12/03/2024 11:24 AM TEMPLE MEAT CUTTER) Anatomical Region Laterality Modality Chest Digital Radiogra phy 12/03/2024 11:4 7 AM TEMPLE MEAT CUTTER Narrative 12/03/2024 11:53 AM TEMPLE MEAT CUTTER PROCEDURE: XR CHEST 2VW, DATE/TIME OF EXAM: 12/03/2024 11:33 AM, LOCATION [facility] INDICATION: R41.82: Altered mental status, unspecified altered [...] was drafted by Yaw Alvarez MD (resident care technician) 12/03/2024 11:47 AM. Candice Haddad MD have personally reviewed and interpreted this examination/study. > Interpreting Provider: Candice Gordon MD on 12/03/2024 11:53 AM Procedure Note Candice Gordon MD - 12/03/2024 PROCEDURE: XR CHEST 2VW, DATE/TIME OF EXAM: 12/03/2024 11:33 AM, LOCATION [facility] INDICATION: R41.82: Altered mental status, unspecified altered [...] was drafted by Yaw Alvarez MD (resident care technician) 12/03/2024 11:47 AM. ICandice MD have personally reviewed and interpreted this examination/study. > Interpreting Provider: Candice Gordon MD on 12/03/2024 11:53 AM Sarika Martin PA-C DIAGNOSTIC IM AGING ORDERABLES * SYPHILIS ANTIBODY CASCADING REFLEX (11/07/2024 4:27 AM TEMPLE MEAT CUTTER) Treponema pallidum Antibody Non-react pepe Non-react pepe 11/07/2024 5:23 AM TEMPLE MEAT CUTTER [facility] Comment: No Laboratory evidence of syphilis infection. Note: Circulating antibodies may be low or undetectable in early infection. If recent exposure is suspected, re-draw sample in 2-4 weeks and repeat testing. Blood BLOOD SPECIMEN / Unknown Venipuncture / Unknown 11/07/2024 4:27 AM TEMPLE MEAT CUTTER 11/07/2024 4:37 AM TEMPLE MEAT CUTTER Juancarlos Lujan MD LAB - SEROLOGY ORDER DENISE [facility] [address] [place] [address], [place] [phone] * HIV-1 HIV-2 ANTIBODY + HIV P24 AG PANEL (11/07/2024 4:27 AM TEMPLE MEAT CUTTER) [facility] HIV Antigen/Antibod y 1 & 2 Non-reacti ve Non-react pepe 11/07/2024 5:23 AM TEMPLE MEAT CUTTER [facility] Comment:No Laboratory eviden ce of HIV infection. Blood BLOOD SPECIMEN / Unknown Venipuncture / Unknown 11/07/2024 4:27 AM TEMPLE MEAT CUTTER 11/07/2024 4:37 AM TEMPLE MEAT CUTTER Juancarlos Lujan MD LAB - CHEMISTRY [facility] Performing Organization Address City/[facility]/ZIP Co de Phone Number [address] [address], [place] [phone] * TSH REFLEX FREE T4 (11/07/2024 4:27 AM TEMPLE MEAT CUTTER) [facility] TSH 0.697 0.350 - 4.940 uIU/mL 11/07/2024 5:41 AM TEMPLE MEAT CUTTER [facility] Blood BLOOD SPECIMEN / Unknown Venipuncture / Unknown 11/07/2024 4:27 AM TEMPLE MEAT CUTTER 11/07/2024 4:39 AM TEMPLE MEAT CUTTER Juancarlos Lujan MD LAB - CHEMISTRY [facility] Performing Organization Address City/[facility]/ZIP Co de Phone Number [address] [address], [place] [phone] * VITAMIN B1 (11/07/2024 4:27 AM TEMPLE MEAT CUTTER) [facility] Vitamin B1 Whole Blood 96 70 - 180 nmol/L 11/09/2024 12:56 PM TEMPLE MEAT CUTTER [facility] ([facility]) Comment: INTERPRETIVE INFORMATION: Vitamin B1, Whole Blood This assay measures the concentration of thiamine diphosphate (TDP), the primary active form of vitamin B1. Approximately 90 percent of vitamin B1 present in whole blood is TDP. Thiamine and thiamine monophosphate, which comprise the remaining 10 percent, are not measured. This test was developed and its performance characteristics determined by [facility] [employer]. It has not been cleared or approved by the US Food and Drug Administration. This test was performed in a CLIA certified laboratory and is intended for clinical purposes. Performed By: [place] [id number] Cardiovascular Operating Room Nurse: Armando Lowe MD, PhD CLIA Number: [id number] Blood BLOOD SPECIMEN / Unknown Venipuncture / Unknown 11/07/2024 4:27 AM TEMPLE MEAT CUTTER 11/07/2024 4:37 AM TEMPLE MEAT CUTTER Juancarlos Lujan MD LAB - CHEMISTRY [facility] ([facility]) [address] [place] [address], [facility] * (ABNORMAL) URINALYSIS W/MICROSCOPIC REFLEX TO CULTURE (11/06/2024 11:44 PM TEMPLE MEAT CUTTER) Only the most recent of2 resultswithin the time period is included. Color UA Yellow Straw, Yellow 11/07/2024 12:16 AM [facility] Clarity UA Clear Clear 11/07/2024 12:16 AM [facility] Specific [place] UA 1.011 1.005 - 1.030 11/07/2024 12:16 AM [facility] pH UA 5.0 5.0 - 8.0 pH 11/07/2024 12:16 AM [facility] Protein UA Negative Negative 11/07/2024 12:16 AM [facility] Glucose UA 3+(A) Negative 11/07/2024 12:16 AM [facility] Ketone UA Negative Negative 11/07/2024 12:16 AM [facility] Bilirubin UA Negative Negative 11/07/2024 12:16 AM [facility] Blood UA Negative Negative 11/07/2024 12:16 AM [facility] Nitrite UA Negative Negative 11/07/2024 12:16 AM [facility] Leukocyte Esterase Negative Negative 11/07/2024 12:16 AM [facility] Urobilinogen UA Negative Negative mg/dL 11/07/2024 12:16 AM [facility] RBC UA 0-2 None Seen, 0-2, 3-5 /HPF 11/07/2024 12:16 AM [facility] WBC UA 0-5 None Seen, 0-5 /HPF 11/07/2024 12:16 AM [facility] Bacteria UA Trace(A) None /HPF 11/07/2024 12:16 AM [facility] Squamous Epithelial Cells UA None Seen None Seen, 0-2, 3-5 /HPF 11/07/2024 12:16 AM [facility] Mucus UA 1+ /LPF 11/07/2024 12:16 AM [facility] Hyaline Casts UA 0-2 None Seen, 0-2 /LPF 11/07/2024 12:16 AM [facility] Urine URINE SPECIMEN OBTAINED BY CLEAN CATCH PROCEDURE / Unknown Collection / Unknown 11/06/2024 11:44 PM TEMPLE MEAT CUTTER 11/07/2024 12:04 AM TEMPLE MEAT CUTTER [facility] - 11/07/2024 12:16 AM TEMPLE MEAT CUTTER Culture Not Indicated Paris Quintero LAP CUTTER TRUER OPERATOR-TYPING CHECKER LAB - URINALY SIS ORDERABLES [facility] [address] [place] [address], [facility] [phone] * URINE DRUG SCREEN IMMUNOASSAY (11/06/2024 11:43 PM TEMPLE MEAT CUTTER) Pathologist [facility] Amphetamines Screen Urine Negative Negative: < 1000 ng/mL 11/07/2024 12:43 AM [facility] Barbiturates Screen Urine Negative Negative: < 200 ng/mL 11/07/2024 12:43 AM [facility] Benzodiazepine Screen Urine Negative Negative: < 200 ng/mL 11/07/2024 12:43 AM [facility] Opiates Urine Negative Negative: < 300 ng/mL 11/07/2024 12:43 AM [facility] Cocaine Metabolites Urine Negative Negative: < 300 ng/mL 11/07/2024 12:43 AM [facility] Phencyclidine Screen Urine Negative Negative: < 25 ng/ml 11/07/2024 12:43 AM [facility] Cannabinoids Screen Urine Negative Negative: <50 ng/mL 11/07/2024 12:43 AM [facility] Methadone Screen Urine Negative Negative: < 300 ng/mL 11/07/2024 12:43 AM [facility] Fentanyl Screen Urine Negative Negative: <1.5 ng/mL 11/07/2024 12:43 AM [facility] Urine URINE / Unknown Collection / Unknown 11/06/2024 11:43 PM TEMPLE MEAT CUTTER 11/07/2024 12:04 AM [facility] Narrative [facility] - 11/07/2024 12:43 AM [facility] The Urine Toxicology Screening Panel does not screen for Propoxyphene, Meprobamate, Carisoprodol, Trazodone, bjab-sxk-lomfmqo medications and/or volatiles (Acetone, Isopropanol, Methanol or Ethylene Glycol). Ethanol, Salicylate, Acetaminophen, Tricyclic Antidepressants and several therapeutic drugs may be individually assayed in serum or plasma specimen. Toxicology testing by the [facility] is an aid to medical diagnosis and treatment of patients. No documented chain of custody was maintained. Results are intended to be used for clinical purposes only. Juancarlos uLjan MD LAB - URINE CHEMISTR Y ORDERABLES [address] [address], [facility] [phone] * PROTEIN BODY FLUID (11/06/2024 8:27 PM TEMPLE MEAT CUTTER) Protein Fluid 1.2 Not Established For Fluids g/dL 11/06/2024 9:22 PM [facility] Fluid Type Peritoneal Fluid 11/06/2024 9:22 PM [facility] Fluid PERITONEAL FLUID / Unknown Collection / Unknown 11/06/2024 8:27 PM TEMPLE MEAT CUTTER 11/06/2024 8:32 PM [facility] Narrative [facility] - 11/06/2024 9:22 PM [facility] The analytical performance of this test has been independently validated by the laboratory. A reference range has not been established for this fluid. Comparison of this result with the concentration in blood, serum or plasma is recommended. Homer Hallman MD LAB - BODY FLUID ORD ERABLES [address] [address], [facility] [phone] * GLUCOSE BODY FLUID (11/06/2024 8:27 PM TEMPLE MEAT CUTTER) Glucose Fluid 126 Not Established For Fluids mg/dL 11/06/2024 9:55 PM [facility] Fluid Type Peritoneal Fluid 11/06/2024 9:55 PM [facility] Fluid PERITONEAL FLUID / Unknown Collection / Unknown 11/06/2024 8:27 PM TEMPLE MEAT CUTTER 11/06/2024 8:32 PM TEMPLE MEAT CUTTER [facility] - 11/06/2024 9:55 PM TEMPLE MEAT CUTTER The analytical performance of this test has been independently validated by the laboratory. A reference range has not been established for this fluid. Comparison of this result with the concentration in blood, serum or plasma is recommended. Homer Hallman MD LAB - BODY FLUID ORD ERABLES Performing Organization Address City/[facility] Co de Phone Number [address] [address], [facility] [phone] * DIFFERENTIAL MANUAL FLUID (11/06/2024 8:27 PM TEMPLE MEAT CUTTER) Only the most recent of2 resultswithin the time period is included. Fluid Source Peritoneal 11/06/2024 10:05 PM [facility] Body Fluid Total Cell Count 100 x10E6/L 11/06/2024 10:05 PM [facility] Neutrophils Fluid Percent 16 % 11/06/2024 10:05 PM [facility] Lymphocytes Fluid Percent 43 % 11/06/2024 10:05 PM [facility] Comment:Reactive Lymphocytes present. Macrophages Fluid Percent 36 % 11/06/2024 10:05 PM [facility] Eosinophils Fluid Percent 5 % 11/06/2024 10:05 PM [facility] Fluid PERITONEAL FLUID / Unknown Collection / Unknown 11/06/2024 8:27 PM TEMPLE MEAT CUTTER 11/06/2024 8:32 PM TEMPLE MEAT CUTTER Narrative [facility] - 11/06/2024 10:05 PM TEMPLE MEAT CUTTER No reference ranges established for body fluid differential cell counts. The test results must be integrated into the clinical context for interpretation. Homer Hallman MD LAB - BODY FLUID ORD ITALYBLES Performing Organization Address [facility] Co de Phone Number [address] [address], [facility] [phone] * CELL COUNT W DIFFERENTIAL FLUID (11/06/2024 8:27 PM TEMPLE MEAT CUTTER) Only the most recent of2 resultswithin the time period is included. Fluid Source Peritoneal 11/06/2024 10:05 PM [facility] Fluid Appearance SLIGHTLY HAZY 11/06/2024 10:05 PM [facility] Fluid Color PALE YELLOW 11/06/2024 10:05 PM [facility] Total Nucleated Cells Fluid 92 Reference Range Not Established x10E6/L 11/06/2024 10:05 PM [facility] RBC Count Fluid <2,000 Reference Range Not Established x10E6/L 11/06/2024 10:05 PM [facility] Fluid PERITONEAL FLUID / Unknown Collection / Unknown 11/06/2024 8:27 PM TEMPLE MEAT CUTTER 11/06/2024 8:32 PM TEMPLE MEAT CUTTER [facility] - 11/06/2024 10:05 PM TEMPLE MEAT CUTTER No reference ranges established for body fluid cell counts. Any reference ranges provided are derived from published literature. The test results must be integrated into the clinical context for interpretation. Homer Hallman MD LAB - BODY FLUID ORD CASSIDY Performing Organization Address [facility] Co de Phone Number [address] [address], [facility] [phone] * (ABNORMAL) CULTURE FLUID+GRAM STAIN (11/06/2024 8:15 PM TEMPLE MEAT CUTTER) Only the most recent of2 resultswithin the time period is included. Culture Light Achromobacter species(AA) ADOLPH 11/10/2024 4:24 AM [facility] Comment:Isolate is multi tammy g resistant organism (MDRO). Gram Stain Light Red blood cells 11/10/2024 4:24 AM [facility]CRO[facility] Gram Stain Rare Polymorphonuclear cells 11/10/2024 4:24 AM [facility]CRO[facility] Gram Stain No organisms seen 025 4:24 AM [facility] MICRO[facility] Other PERITONEAL FLUID / Unknown Collection / Unknown 11/06/2024 8:15 PM TEMPLE MEAT CUTTER 11/06/2024 8:32 PM TEMPLE MEAT CUTTER Narrative [facility] MICRO[facility]OLOG[facility] - 11/10/2024 4:24 AM TEMPLE MEAT CUTTER This isolate is a multidrug resistant organism [...] Hallman MD LAB - MICROBIOLOGY O RDERABLES [facility]CRO[facility] [address] [place], [address] [phone] * Paracentesis (11/06/2024 6:28 PM TEMPLE MEAT CUTTER) Narrative Homer Hallman MD - 11/06/2024 6:28 PM TEMPLE MEAT CUTTER Homer Hallman MD 11/06/2024 8:11 PM Paracentesis [...] (COVID-19)+INFLU A+B PCR RAPID (11/06/2024 3:40 PM TEMPLE MEAT CUTTER) COVID-19 PCR Not detected Not detected 11/06/19 5:10 PM TEMPLE MEAT CUTTER [facility] Influenza A Rapid JOHNNIE Not Detected Not Detected 11/06/2024 5:10 PM TEMPLE MEAT CUTTER [facility] Influenza B JOHNNIE Rapid Not Detected Not Detected 11/06/2024 5:10 PM TEMPLE MEAT CUTTER [facility] Microbiology SPECIMEN FROM NASOPHARYNGEAL STRUCTURE / Unknown Collection / Unknown 11/06/2024 3:40 PM TEMPLE MEAT CUTTER 11/06/2024 4:29 PM TEMPLE MEAT CUTTER Narrative [facility] - 11/06/2024 5:10 PM TEMPLE MEAT CUTTER Influenza assay performed by [employer]. [...] amplification assay performance was validated by [facility]. This test has been authorized by [...] Hallman MD LAB - MICROBIOLOGY O RDERABLES [facility] [address] [place] [address], [facility] [phone] * XR Chest 1Vw Portable (11/06/2024 2:29 PM TEMPLE MEAT CUTTER) Only the most recent of2 resultswithin the time period is included. Anatomical Region Laterality Modality Chest Digital Radiogra phy 11/06/2024 2:35 PM TEMPLE MEAT CUTTER Narrative 11/06/2024 2:46 PM TEMPLE MEAT CUTTER PROCEDURE: XR CHEST 1VW PORTABLE, DATE/TIME OF EXAM: 11/06/2024 2:30 PM, LOCATION [facility] INDICATION: G93.40: Encephalopathy, unspecified type ADDITIONAL CLINICAL [...] pneumothorax. Report dictated by Jonathan Torres MD, (Hospital Orderly). I, Christophe Rahman MD have personally reviewed and interpreted this examination/study. > Interpreting Provider: Christophe Rahman MD on 11/06/2024 2:46 PM Procedure Note Christophe Rahman MD - 11/06/2024 PROCEDURE: XR CHEST 1VW PORTABLE, DATE/TIME OF EXAM: 11/06/2024 2:30 PM, LOCATION [facility] INDICATION: G93.40: Encephalopathy, unspecified type ADDITIONAL CLINICAL [...] pneumothorax. Report dictated by Jonathan Torres MD, (Hospital Orderly). I, Christophe Rahman MD have personally reviewed and interpreted this examination/study. > Interpreting Provider: Christophe Rahman MD on 11/06/2024 2:46 PM Homer Hallman MD DIAGNOSTIC IMAGING O RDERABLES * LIPASE BLOOD (11/06/2024 12:54 PM TEMPLE MEAT CUTTER) [facility] Lipase 16 8 - 78 U/L 11/06/2024 1:37 PM [facility] Blood BLOOD SPECIMEN / Unknown Venipuncture / Unknown 11/06/2024 12:54 PM TEMPLE MEAT CUTTER 11/06/2024 1:07 PM TEMPLE MEAT CUTTER Narrative [facility] - 11/06/2024 1:37 PM TEMPLE MEAT CUTTER Lipase results from the [employer] Alinity analyzer may not be comparable with other methodologies. Paris Quintero LAP CUTTER TRUER OPERATOR-TYPING CHECKER LAB - VICE PRESIDENT OF TALENT MANAGEMENT RY ORDERABLES [address] [address], [facility] [phone] * (ABNORMAL) CBC W/O DIFFERENTIAL (10/28/2024 6:14 AM TEMPLE MEAT CUTTER) Only the most recent of5 resultswithin the time period is included. [facility] WBC 3.0(L) 4.0 - 10.7 x10E9/L 10/28/2024 6:55 AM [facility] RBC Count 2.87(L) 4.30 - 5.80 x10E12/L 10/28/2024 6:55 AM [facility] Hemoglobin 8.9(L) 13.3 - 17.5 g/dL 10/28/2024 6:55 AM [facility] Hematocrit 26.5(L) 38.7 - 51.1 % 10/28/2024 6:55 AM [facility] MCV 92.3 80.0 - 98.0 fL 10/28/2024 6:55 AM [facility] MCH 31.0 26.7 - 33.6 pg 10/28/2024 6:55 AM [facility] MCHC 33.6 31.7 - 36.3 g/dL 10/28/2024 6:55 AM [facility] RDW-CV 16.5(H) 11.3 - 14.8 % 10/28/2024 6:55 AM [facility] Platelet Count 109(L) 150 - 420 x10E9/L 10/28/2024 6:55 AM [facility] MPV 10.9 7.8 - 11.4 fL 10/28/2024 6:55 AM [facility] Blood BLOOD SPECIMEN / Unknown Lab Venipuncture / Unknown 10/28/2024 6:14 AM TEMPLE MEAT CUTTER 10/28/2024 6:39 AM TEMPLE MEAT CUTTER Rigoberto Mcclain MD LAB - HEMATOLOGY ORD ERABLES [facility] [address] [place] [address], [facility] [phone] * (ABNORMAL) VITAMIN D 1,25 DIHYDROXY (10/26/2024 4:00 AM TEMPLE MEAT CUTTER) Vitamin D, 1,25 Dihydroxy 18.8(L) 19.9 - 79.3 pg/mL 10/29/2024 12:19 AM TEMPLE MEAT CUTTER [email or web address] ([facility]) Comment: INTERPRETIVE INFORMATION: Vitamin D, 1,25-Dihydroxy This test is primarily indicated during patient evaluation for hypercalcemia and renal failure. A normal result does not rule out Vitamin D deficiency. The recommended test for diagnosing Vitamin D deficiency is Vitamin D 25-hydroxy. Performed By: [facility] [address] [place] [id number] Cardiovascular Operating Room Nurse: Armando Lowe MD, PhD CLIA Number: [id number] Blood BLOOD SPECIMEN / Unknown Venipuncture / Unknown 10/26/2024 4:00 AM TEMPLE MEAT CUTTER 10/26/2024 4:10 AM TEMPLE MEAT CUTTER Shravan Jessica MD LAB - CHEMISTRY OR DERABLES [facility] [employer] [facility] [employer] ([facility]) [address] [place] [address], [facility] * SODIUM URINE RANDOM (10/25/2024 10:40 AM TEMPLE MEAT CUTTER) Sodium Urine 30 Not Established mmol/L 10/25/2024 11:05 AM TEMPLE MEAT CUTTER [facility] Urine URINE SPECIMEN OBTAINED BY CLEAN CATCH PROCEDURE / Unknown Collection / Unknown 10/25/2024 10:40 AM TEMPLE MEAT CUTTER 10/25/2024 10:47 AM TEMPLE MEAT CUTTER Shravan Jessica MD LAB - URINE CHEMIS TRY ORDERABLES [facility] [address] [place] [address], [facility] [phone] * US Abdomen Ltd W Comp Doppler (10/25/2024 8:20 AM TEMPLE MEAT CUTTER) Anatomical Region Laterality Modality Abdomen Ultrasound 10/25/2024 12:3 6 PM TEMPLE MEAT CUTTER Impressions 10/27/2024 1:43 AM TEMPLE MEAT CUTTER IMPRESSION: 1.Hepatic cirrhosis with sequela of portal hypertension including moderate to large volume ascites. 2.Mildly decreased velocity of flow within the main portal vein (13.9 cm/s). No portal vein thrombosis. Otherwise, normal hepatic Doppler evaluation. 3.No evidence of cholelithiasis or acute cholecystitis. > Dictated by Tom Barreto DO,(manager residential). I, Lalo St MD have personally reviewed and interpreted this examination/study. > Interpreting Provider: Lalo St MD on 10/27/2024 1:43 AM Narrative 10/27/2024 1:43 AM [employer]PLE MEAT CUTTER PROCEDURE: US ABDOMEN LTD W COMP DOPPLER, DATE/TIME OF EXAM: 10/25/2024 8:54 AM, LOCATION [facility] INDICATION: K76.82: Hepatic encephalopathy (HCC) Ordering Provider [...] DOPPLER, DATE/TIME OF EXAM:10/25/2024 8:54 AM, LOCATION [facility] INDICATION: K76.82: Hepatic encephalopathy (HCC) Ordering Provider [...] acute cholecystitis. > Dictated by Tom Barreto DO,(manager residential). I, Lalo St MD have personally reviewed and interpreted this examination/study. > Interpreting Provider: Llao St MD on 10/27/2024 1:43 AM Rigoberto Mcclain MD ORDERABLES * PTH INTACT W/O CALCIUM (10/25/2024 4:54 AM TEMPLE MEAT CUTTER) [facility] PTH Intact 13.2 8.0 - 77.0 pg/mL 10/25/2024 6:19 AM TEMPLE MEAT CUTTER [facility] Blood BLOOD SPECIMEN / Unknown Lab Venipuncture / Unknown 10/25/2024 4:54 AM TEMPLE MEAT CUTTER 10/25/2024 5:46 AM TEMPLE MEAT CUTTER Rigoberto Mcclain MD LAB - CHEMISTRY [facility] Organization Address City/State/ZIP Co de Phone Number [address] [address], [facility] [phone] * (ABNORMAL) PTH RELATED PEPTIDE (10/25/2024 4:54 AM TEMPLE MEAT CUTTER) PTH Related Peptide 3.1(H) 0.0 - 2.3 pmol/L 11/03/2024 1:05 PM TEMPLE MEAT CUTTER [facility] ([facility]) Comment: INTERPRETIVE INFORMATION: Parathyroid Hormone-Related Peptide This test was developed and its performance characteristics determined by [facility]. It has not been cleared or approved by the US Food and Drug Administration. This test was performed in a CLIA certified laboratory and is intended for clinical purposes. Performed By: [address] [address] Cardiovascular Operating Room Nurse: Armando Lowe MD, PhD CLIA Number: [id number] Blood BLOOD SPECIMEN / Unknown Lab Venipuncture / Unknown 10/25/2024 4:54 AM TEMPLE MEAT CUTTER 10/25/2024 5:29 AM TEMPLE MEAT CUTTER Rigoberto Mcclain MD LAB - CHEMISTRY [facility] PA[facility] RIVAS Performing Organization Address City/[facility]/ZIP Co de Phone Number [facility]) [address] [place] [phone] * (ABNORMAL) VITAMIN D 25-HYDROXY (10/25/2024 4:54 AM TEMPLE MEAT CUTTER) Pathologist [facility] Vitamin D, 25 Hydroxy 27.0(L) 30.0 - 80.0 ng/mL 10/25/2024 6:33 AM TEMPLE MEAT CUTTER [facility] Comment: The recommendations for 25-Hydroxy Vitamin [...] Lab Venipuncture / Unknown 10/25/2024 4:54 AM TEMPLE MEAT CUTTER 10/25/2024 5:29 AM TEMPLE MEAT CUTTER Rigoberto Mcclain MD LAB - CHEMISTRY JOHN PAUL RIVAS [address] [address], [facility] [phone] * LDH BLOOD (10/25/2024 4:54 AM TEMPLE MEAT CUTTER) Pathologist [facility] LDH Total 203 125 - 243 Units/L 10/25/2024 6:19 AM [facility] Blood BLOOD SPECIMEN / Unknown Lab Venipuncture / Unknown 10/25/2024 4:54 AM TEMPLE MEAT CUTTER 10/25/2024 5:29 AM TEMPLE MEAT CUTTER Rigoberto Mcclain MD LAB - CHEMISTRY JOHN PAUL RIVAS Performing Organization Address City/[facility]/ZIP Co de Phone Number [facility] [address] [place] [address], [facility] [phone] * (ABNORMAL) CALCIUM IONIZED WHOLE BLOOD (10/24/2024 8:47 AM TEMPLE MEAT CUTTER) [facility] Calcium Ionized 1.54 mmol/L 10/24/2024 9:03 AM [facility] pH 7.41 7.35 - 7.45 pH 10/24/2024 9:03 AM [facility] Ionized Calcium pH Adjusted 1.55(H) 1.19 - 1.34 mmol/L 10/24/2024 9:03 AM [facility] Blood BLOOD SPECIMEN / Unknown Lab Venipuncture / Unknown 10/24/2024 8:47 AM TEMPLE MEAT CUTTER 10/24/2024 8:58 AM TEMPLE MEAT CUTTER Rigoberto Mcclain MD LAB - CHEMISTRY JOHN PAUL RIVAS Performing Organization Address City/[facility]/ZIP Co de Phone Number [address] [address], [facility] [phone] * (ABNORMAL) HEMOGLOBIN A1C (10/24/2024 8:47 AM [facility]) [facility] Hemoglobin A1c 7.9(H) <=5.6 % 10/24/2024 12:41 PM [facility] Estimated Average Glucose 180 mg/dL 10/24/2024 12:41 PM [facility] Comment: HbA1c Interpretation: Normal : < 5.7% Pre-diabetes: 5.7-6.4% Diabetes: Equal to or greater than 6.5% Test results diagnostic of diabetes should be repeated for confirmation. Treatment target values recommended by ADA and other clinical organizations should be used to evaluate metabolic control in patients. Reference: [place] [employer], Standards of Care in Diabetes -2020 In patients 70 years and older consider HbA1c target range of 7.0-7.5% (Reference: Armen López et al. ZAKDA. 2012) The Sebia assay for the measurement of HbA1c is a National Glycohemoglobin Standardization Program (NGSP) certified method. Blood BLOOD SPECIMEN / Unknown Lab Venipuncture / Unknown 10/24/2024 8:47 AM TEMPLE MEAT CUTTER 10/24/2024 9:01 AM TEMPLE MEAT CUTTER Rigoberto Mcclain MD LAB - CHEMISTRY JOHN PAUL RIVAS Performing Organization Address City/[facility]/ZIP Co de Phone Number [address] [address], [place] [phone] * LACTIC ACID BLOOD (10/24/2024 8:47 AM TEMPLE MEAT CUTTER) Lactic Acid-Stat 2.0 <=2.0 mmol/L 10/24/2024 9:33 AM TEMPLE MEAT CUTTER [facility] Blood BLOOD SPECIMEN / Unknown Lab Venipuncture / Unknown 10/24/2024 8:47 AM TEMPLE MEAT CUTTER 10/24/2024 9:02 AM TEMPLE MEAT CUTTER Rigoberto Mcclain MD LAB - CHEMISTRY JOHN PAUL RIVAS Performing Organization Address City/[facility]/ZIP Co de Phone Number [address] [address], [place] [phone] * (ABNORMAL) BLOOD GASES REINA + COOX PANEL (10/23/2024 6:25 PM TEMPLE MEAT CUTTER) pH Venous 7.45(H) 7.32 - 7.42 pH 10/23/2024 6:44 PM TEMPLE MEAT CUTTER [facility] pO2 Venous 86(H) 35 - 40 mmHg 10/23/2024 6:44 PM TEMPLE MEAT CUTTER [facility] pCO2 Venous 23(L) 40 - 50 mmHg 10/23/2024 6:44 PM TEMPLE MEAT CUTTER [facility] HCO3 Venous 16.0(L) 20 - 30 mmol/L 10/23/2024 6:44 PM [facility] Base Excess Venous -6.8(L) -2.0 - 2.0 mmol/L 10/23/2024 6:44 PM [facility] Oxyhemoglobin Venous 96.1 % 10/05 6:44 PM [facility] Deoxyhemoglobin (HHB) Venous % 2.1 % 10/23/2024 6:44 PM [facility] Methemoglobin 0.8 0.0 - 2.0 % 10/23/2024 6:44 PM [facility] Carboxyhemoglobin 1.0 0.0 - 2.0 % 2023 6:44 PM [facility] O2 Content Venous 12.4 Interpret within clinical context ml/dL 10/23/2024 6:44 PM [facility] Hemoglobin by COOX 9.1(L) 12.0 - 17.6 g/dL 10/23/2024 6:44 PM [facility] O2 Saturation Venous 98 >=70 % 10/05 6:44 PM [facility] FI O2 Mixed Venous 21.0 % 2023 6:44 PM [facility] Blood BLOOD SPECIMEN / Unknown Lab Venipuncture / Unknown 10/23/2024 6:25 PM TEMPLE MEAT CUTTER 10/23/2024 6:36 PM [facility] - 10/23/2024 6:44 PM TEMPLE MEAT CUTTER Carboxyhemoglobin Normal Concentration: Non-smokers: 0-2%; Smokers: 0-9%; Toxic: >20% Rigoberto Mcclain MD LAB - BLOOD GASES OR DERABLES [facility] [address] [place] [address], [facility] [phone] * (ABNORMAL) LACTIC ACID BLOOD REFLEX TO REPEAT (10/23/2024 6:11 PM TEMPLE MEAT CUTTER) Only the most recent of3 resultswithin the time period is included. Lactic Acid-Stat 7.9(HH) <=2.0 mmol/L 10/23/2024 6:46 PM [facility] Blood BLOOD SPECIMEN / Unknown Lab Venipuncture / Unknown 10/23/2024 6:11 PM TEMPLE MEAT CUTTER 10/23/2024 6:18 PM TEMPLE MEAT CUTTER Paris Quintero LAP CUTTER TRUER OPERATOR-TYPING CHECKER LAB - VICE PRESIDENT OF TALENT MANAGEMENT RY ORDERABLES [facility] [address] [place] [address], [facility] [phone] * Paracentesis (10/23/2024 4:59 PM TEMPLE MEAT CUTTER) Narrative Muna Waller MD - 10/23/2024 4:59 PM TEMPLE MEAT CUTTER Elma Deutsch MD 10/23/2024 5:01 PM Paracentesis [...] 9:50 PM 09/02/2024 2:53 PM Care Teams [facility] Director Relationship Specialty Start Date End Date Moses Conn MD [address] [place] [address] PCP - General 01/04/23"
--- OUTSIDE RECORDS SUMMARY | 2024-12-23 12:56 | XMS_ITS | Encounter Summary ---
Author Organization [facility] Health Address [address] [place] [address] Care Team Providers Care Engine Mechanic Name Role Phone Moses Conn MD Primary Care Provider [phone] Reason for Visit * Reason Comments Cirrhosis decompensated Encounter Details Date Type Department Care Team (Late st Contact Info) Description 12/02/2024 Telephone [facility] - [address] [address] Luana Alejo, OLAF Cirrhosis (decompensated) [...] and heating? Not hard at all 11/08/2024 [facility] Occupat ional Health - Occupational Stress [...] time in the past 12 [address] [facility], were you homeless or living [...] generally 3 L. Re-evaluation at that time. bookletmobile message sent to Dr. Mcclain. T METAL ASSEMBLER AND RIVETER documented in this encounter Plan of Treatment Upcoming Encounters Date Type Department Care Team (Late st Contact Info) Description 01/27/2025 2:00 PM CDT Office Visit [facility] - [address] [facility], [facility] [place] [phone] Rigoberto Mcclain MD [address] [place] [address] documented as of this encounter Goals Goal Patient Goal Type Associated Problems Recent Progress Patient-Stated? Author Medication Management General On track( 025 10:45 AM SHEET METAL ASSEMBLER AND RIVETER) Kandis Dejesus, RN Note: Expected end date: [...] Under Investigation 12/03/2024 12/03/2024 12/03/2024 1:56 PM SHEET METAL ASSEMBLER AND RIVETER documented as of this encounter Care Teams Engine Mechanic Relationship Specialty Start Date End Date Moses Conn MD [address] [place] [address] PCP - General 01/04/23 documented as of this encounter
--- OUTSIDE RECORDS SUMMARY | 2024-12-23 12:56 | XMS_ITS | Encounter Summary ---
Author Organization [facility] Health Address [address] [facility] [place] [address] Care Team Providers Care Mushroom Spawn Maker Name Role Phone Moses Conn MD Primary Care Provider [phone] Encounter Details Date Type Department Care Team (Late Contact Info) Description 02/01/2024 Lab Requisition [facility] - Pathology Lab [address] [place] [address] Kadeem Mcclelland MD [address] [address] Follicular lymphoma, unspecified, unspecified site [...] Visit [facility] - GI [address] [facility], [place] [address] Rigoberto Mcclain MD [address] [place] [address] documented as of this encounter Procedures Procedure Name Priority Date/Time Associated Diagnosis Comments FLOW CYTOMETRY BONE MARROW Routine 02/01/2024 9:30 AM CDT Follicular lymphoma, unspecified, unspecified site (HCC) Non-Hodgkin lymphoma, unspecified, unspecified site (HCC) documented in this encounter Results * FLOW CYTOMETRY BONE MARROW (02/01/2024 9:30 AM CDT) Case Report Flow Cytometry Case: [id number] Authorizing Provider: Stas Kadeem Collected: 02/01/2024 09:30 AM MD Bola Ordering Location: [facility] - Received: 02/01/2024 12:23 PM Pathology Lab Pathologist: Rosa Maria Murry MD Specimen: Bone Marrow 4 12:02 PM CDT [facility] Final Diagnosis Bone marrow, [...] reported B-cell lymphoma. 4 12:02 PM CDT [facility] Flow Cytometry Interpretation Viability: [...] flow cytometry specimen has been reviewed for water quality technician purposes. Please correlate with histologic review of the bone marrow ([id number]). 4 12:02 PM [facility] Flow Cytometry Results Differential Result Comment Flow Cell Count /uL 10,200 Total Viability % 85.0 Lymphocytes % 19 Dim CD45 Region % 5 Monocytes % 20 Granulocytes % 56 4 12:02 PM [facility] Reason for test Follicular lymphoma, unspecified, unspecified site (HCC) Non-Hodgkin lymphoma, unspecified, unspecified site (HCC) 4 12:02 PM [facility] Client Specimen ID # [id number] 4 12:02 PM [facility] Number of markers 22 [...] Flow CD57 A-21 TCR-AB A-22 TCR-GD A-7 Pauline+CD19+ A-8 Lambda+CD19+ 4 12:02 PM [facility] Pathologist Location at [facility] 4 12:02 PM [facility] Disclaimer Test performed at [facility], [address] [place] [address], [address]. *The established laboratory minimum viability is 70%. [...] high complexity clinical testing. 4 12:02 PM [facility] Embedded Images 12:02 PM [facility] Pathology/Cytolo gy BONE MARROW SPECIMEN / Unknown 02/01/2024 9:30 AM CDT 02/01/2024 12:23 PM CDT Kadeem Mcclelland MD LAB - PATHO LOGY/CYTOLOGY ORDERABLES Performing Organization Address City/State/[facility] Co de Phone Number [facility] [address] [phone] documented in this encounter Visit Diagnoses Diagnosis Follicular lymphoma, unspecified, unspecified site (HCC) Non-Hodgkin lymphoma, unspecified, unspecified site (HCC) documented in this encounter Additional Health Concerns Infection Onset Date Last Indicated Resolved Time COVID-19 Under Investigation 11/06/2024 11/06/2024 11/06/2024 5:10 PM OCEAN FISHING GUIDE MDRO 11/06/2024 11/06/2024 COVID-19 Under Investigation 12/03/2024 12/03/2024 12/03/2024 1:56 PM OCEAN FISHING GUIDE documented as of this encounter Care Teams Mushroom Spawn Maker Relationship Specialty Start Date End Date Moses Conn MD [address] [place] [address] PCP - General 01/04/23 documented as of this encounter
--- OUTSIDE RECORDS SUMMARY | 2024-12-23 12:56 | XMS_ITS | Encounter Summary ---
Author Organization [facility] Health Address [address] [facility] [place] [address] Care Team Providers Care Battery Checker Name Role Phone Moses Conn MD Primary Care Provider [phone] Encounter Details Date Type Department Care Team (Late st Contact Info) Description 02/04/2024 Lab Requisition [facility] - Pathology Lab [address] [place] [address] Kadeem Mcclelland MD [address] [address] Illness, unspecified Social History Tobacco [...] Visit [facility] - GI [address] [facility], [place] [address] Rigoberto Mcclain MD [address] [place] [address] documented as of this encounter Procedures Procedure Name Priority Date/Time Associated Diagnosis Comments BONE MARROW BIOPSY (STL) Routine 02/01/2024 8:32 AM CDT Illness, unspecified documented in this encounter Results * BONE MARROW BIOPSY (STL) (02/01/2024 8:32 AM CDT) Case Report Bone Marrow Patholog y Report Case: [id number] Authorizing Provider: Kadeem Mcclelland Collected: 02/01/2024 08:32 AM MD Bola Ordering Location: [facility] - Received: 02/04/2024 03:11 PM Pathology Lab Pathologist: Rosa Maria Murry MD Specimens: A) - Bone Marrow Clot B) - Bone Marrow Core 02/06/2024 12:21 PM CDT [facility] Final Diagnosis Bone marrow, iliac crest, core biopsy, clot section, and aspirate: - Plasma cell neoplasm (up to 20% plasma cells with kappa light chain restriction) involving a markedly hypocellular marrow (5-10% cellular), see comment - No evidence of B-cell lymphoma - Adequate iron stores - No significant increase in reticulin fibrosis (MF-0) 02/06/2024 12:21 PM T [facility] Comment The patient has a [...] data is needed. 02/06/2024 12:21 PM CDT [facility] Peripheral Smear Description Manual Differential [...] decreased. Platelet morphology: normal. 02/06/2024 12:21 PM [facility] Bone Marrow Aspirate Differential count [...] stain): no ring sideroblasts. 02/06/2024 12:21 PM [facility] Bone Marrow Core Biopsy and [...] similar to core biopsy. 02/06/2024 12:21 PM [facility] Flow Cytometry Summary Bone marrow, flow cytometric immunophenotyping ([id number]): - Mild T-cell aberrancy identified (see comment) [...] patient's reported B-cell lymphoma. 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 He presented for evaluation of pancytopenia. 02/06/2024 12:21 PM [facility] Materials Received Received are 21 slide(s) and 3 blocks labeled [id number] along with a copy of the outside pathology report. [place] [address] . All original materials are returned to the referring institution, along with a copy of our final report. 02/06/2024 12:21 PM [facility] Microscopic Description Immunohistochemistry and special [...] 1% of all cells without abnormal clustering. [place] and lambda in situ hybridization stains (core and clot) show the plasma cells to be kappa restricted, with a kappa to lambda ratio of approximately 10:1. Cyclin D1 is positive in the plasma cells in the core biopsy and clot section. CD3 and CD5 performed on the core biopsy and clot section highlights up to 5% of all cells. 02/06/2024 12:21 PM [facility] Pathologist Location at [facility] 02/06/2024 12:21 PM [facility] Disclaimer The performance characteristics of all immunohistochemical and indirect immunofluorescence stains (if any) cited in this report were determined by the Histopathology Laboratory of [facility]. Some of these tests were developed [...] the attending (teaching) pathologist. 02/06/2024 12:21 PM [facility] Embedded Images 02/06/2024 12:21 PM [facility] Pathology/Cytology BONE MARROW SPECIMEN / Unknown 02/01/2024 8:32 AM CDT 02/04/2024 3:11 PM CDT Miscellaneous samples (specimen) BONE MARROW SPECIMEN / Unknown 02/01/2024 8:32 AM CDT 02/04/2024 3:11 PM CDT Kadeem Mcclelland MD LAB - PATHO LOGY/CYTOLOGY ORDERABLES Performing Organization Address City/State/[place] Co de Phone Number [facility] [address] [phone] documented in this encounter Visit Diagnoses Diagnosis Illness, unspecified documented in this encounter Additional Health Concerns Infection Onset Date Last Indicated Resolved Time COVID-19 Under Investigation 11/06/2024 11/06/2024 11/06/2024 5:10 PM FIELD STAFF MANAGER MDRO 11/06/2024 11/06/2024 COVID-19 Under Investigation 12/03/2024 12/03/2024 12/03/2024 1:56 PM FIELD STAFF MANAGER documented as of this encounter Care Teams Battery Checker Relationship Specialty Start Date End Date Moses Conn MD [address] [place] [address] PCP - General 01/04/23 documented as of this encounter
== END 2024-12-23 12:48 | disposition home or self-care (01) ==
PROVIDERS: PCP Internal Medicine; Visit Provider Internal Medicine Hematology & Oncology
DX: K70.31 Alcoholic cirrhosis of liver with ascites (principal)
CPT/HCPCS: 49083

== ENCOUNTER 2024-12-25 08:49 | Outpatient (CLI) | payer OTHER, SELFPAY ==
--- NOTE | ~2024-12-25 | PE_ITS ---
EXAMINATION: PET skull to mid thigh DATE: 12/25/2024 11:27 INDICATION: Multiple myeloma TECHNIQUE: Blood glucose level was 145 mg/dL. 10.669 mCi of 18-fluorodeoxyglucose (18-FDG) was admini stered i.v. Low dose computed tomography (CT) images were acquired from the base of the brain to the proximal thighs for attenuation correction and anatomic localization. Positron emission tomography (P ET) images were acquired in the same distribution beginning 64 minutes after injection. Images includ ing fused PET/CT images were reconstructed in axial, coronal, and sagittal planes. Automated exposure control technique was employed. The dose-length product was 744.76mGy-cm. COMPARISON: PET/CT dated 03/11/2024 FINDINGS: Head/neck: There is symmetric increased activity in the oral cavity and ocular muscles without CT correlate, lik suleiman physiologic. No pathologically enlarged cervical lymphadenopathy or suspicious foci of increased FDG uptake in the visualized head or neck. Atherosclerotic calcifications at the bilateral carotid ar teries. C4-C6 anterior spinal fusion with anterior plate and screw fixation. No suspicious lytic, avila stic or FDG avid bone lesions. Chest: Right internal jugular central venous port catheter with distal tip at the caudal superior vena cava. Unilateral moderate to large posterior layering left pleural effusion with dependent compressive ate lectasis in the left lung. Mild discoid atelectasis at the lingula and in the right lower lobe. No ot her evident lung disease in the aerated portions the lungs, pulmonary edema or right-sided pleural ef fusion. Heart size is normal. Atherosclerotic coronary artery calcifications and aortic valve calcifi cations. Cardiac pacemaker lead tips at the right atrium and near the apex of the right ventricle. No pericardial effusion. Thoracic aorta is normal in caliber. No pathologically enlarged abdominal or p elvic lymphadenopathy. There is mild uptake associated with a couple nondisplaced fractures of the an terior left second and third ribs. There is additional old healed left rib fractures without increase d uptake. There are bands of increased uptake along the lateral aspect of the bilateral chest mulligan w hich appears to be associated with the intercostal musculature most likely physiologic. Could not exc lude that there is some misregistration artifact in the pelvis is located within the ribs however the re are no evident corresponding lytic or blastic bone lesions. Abdomen/pelvis/proximal thighs and upper extremities: Nodular cirrhotic liver. Normal degree and heterogenous pattern of increased uptake throughout the li rob without radiologic correlate or dominant FDG avid lesion.There is diffuse mesenteric edema with l arge amount of ascites throughout the abdomen and pelvis. There is additional diffuse increased activ ity at the left and right lateral abdominal wall musculature also without radiologic correlate and li troy physiologic. Calcified gallstones in the dependent neck of the normal partially decompressed gal lbladder. Multiple splenic calcifications consistent with old granulomatous disease. Splenorenal pat aterals consistent with portal venous hypertension related to cirrhosis. Physiologic renal accumulati on and excretion of FDG activity in the kidneys, bladder and along portions of ureters. The pancreas and bilateral adrenal glands are normal. Mild uptake scattered throughout the bowels without radiolog ic correlate, also likely physiologic. Fluid in the colon consistent with nonspecific diarrhea. No andres wel obstruction. Prostatomegaly. No other abnormal foci of increased FDG uptake or pathologically enl arged lymphadenopathy in the abdomen, pelvis or proximal thighs. Chronic appearing mild anterior wedg ing at L3. L5 spondylolysis with bilateral pars interarticularis defects and 6 mm anterolisthesis L5 on S1. No suspicious lytic, blastic or abnormally FDG avid bone lesions. There is extravasated soft t issue activity extending over the soft tissues of the the right hand along the soft tissues of the ri ght forearm. IMPRESSION: 1. Mild uptake associated with a couple likely recent anterior left second and third rib fractures. N o other suspicious lytic, blastic or abnormally FDG avid bone lesions. 2. No other FDG avid lesions suspicious for primary malignancy or metastatic disease. 3. Large left pleural effusion with dependent atelectasis in the left lung. 4. Cirrhosis with left splenorenal collaterals consistent with secondary portal venous hypertension. 5. Large amount of ascites. 6. Prostatomegaly. 7. Cholelithiasis. 8. Chronic L5 pars interarticularis defects. Reviewed, dictated and finalized at location A. ER INSPECTOR IMPRESSION: 1. Mild uptake associated with a couple likely recent anterior left second and third rib fractures. No other suspicious lytic, blastic or abnormally FDG avid bone lesions. 2. No other FDG avid lesions suspicious for primary malignancy or metastatic di sease. 3. Large left pleural effusion with dependent atelectasis in the left lung. 4. Cirrhosis with left splenorenal collaterals consistent with secondary portal venous hypertension. 5. Large amount of ascites. 6. Prostatomegaly. 7. Cholelithiasis. 8. Chronic L5 pars interarticularis defects.
--- OUTSIDE RECORDS SUMMARY | 2024-12-25 09:04 | XMS_ITS | Encounter Summary ---
Author Organization [facility] Address [address] [place] [address] Care Team Providers Care Welfare Project Manager Name Role Phone Moses Conn MD Primary Care Provider [phone] Encounter Details Date Type Department Care Team (Late Contact Info) Description 12/23/2024 External Device Data [facility] ABSTRACTION Provider, Abstract NO ADDRESS ON FILE Social History Tobacco Use Types Packs/Day Years [...] Department Care Team (Late Contact Info) Description 01/01/2025 4:30 PM BUSINESS ASSOCIATE Telephone Check Up [facility] Oncology and Hematology - [place] [address] [facility] [address] [address] Anish Perez MD [address] [facility] [address] [place] [address] documented as of this encounter Visit Diagnoses Not on filedocumented in this encounter Care Teams Welfare Project Manager Relationship Specialty Start Date End Date Moses Conn MD [address] [place] [phone] PCP - General Internal Medicine 04/12/22 documented as of this encounter
--- OUTSIDE RECORDS SUMMARY | 2024-12-25 09:04 | XMS_ITS | Encounter Summary ---
Author Organization [facility]3] [employer] [facility] Address [address] [place] [address] Care Team Providers Care Receiving And Processing Supervisor Name Role Phone Moses Conn MD Primary Care Provider [phone] Encounter Details Date Type Department Care Team ([facility] Contact Info) Description 01/29/2024 Telephone [facility] Oncology and Hematology - [place] [address] [place] [address] Anish Perez MD [facility] [address] [place] [address] Social History Tobacco Use Types Packs/Day [...] Encounters Date Type Department Care Team ([facility] Contact Info) Description 01/01/2025 4:30 PM SWEATBAND DRUMMER Telephone Check Up [facility] Oncology and Hematology - [place] [address] [place] [address] Anish Perez MD [address] [place] [address] documented as of this encounter Visit Diagnoses Not on filedocumented in this encounter Care Teams Receiving And Processing Supervisor Relationship Specialty Start Date End Date Moses Conn MD [address] [place] [phone] PCP - General Internal Medicine 04/12/22 documented as of this encounter
--- OUTSIDE RECORDS SUMMARY | 2024-12-25 09:04 | XMS_ITS | Clinical Summary ---
Author Organization [facility] Address [address] [place] [address] Care Team Providers Care Product/Device Technologist Name Role Phone Moses Conn MD Primary Care Provider [phone] Anjelica Fish MD Unavailable [phone] Allergies Active Allergy Reactions Criticality Noted Date [...] plan to continue same Paroxysmal atrial fibrillation ([facility]) 021 Overview (12/18/2024): Last Assessment [...] monitoring Diabetes mellitus type 2 in nonobese ([facility]) 0 05/15/2021 Essential hypertension 05/15/2021 [...] Encounters Date Type Department Care Team Description 12/24/[address] [address] Fanny Hunt MD 12/19/2024 11:30 AM CRANE MANAGER Office Visit [address] [address] Fanny Hunt MD Nonrheumatic aortic valve stenosis (Primary Dx); Tachy-fela syndrome (CMS/HCC) (HCC); Paroxysmal A-fib (CMS/HCC) (HCC); Benign essential hypertension; Mixed hyperlipidemia 12/16/[address] [address] Fanny Hunt MD blood test results 12/15/2024 Orders Only [address] [address] Fanny Hunt MD 12/15/2024 Orders Only [address] [address] Fanny Hunt MD 12/03/[address] [address] Fanny Hunt MD 11/26/2024 10:15 AM CRANE MANAGER - 11/26/2024 11:59 PM CRANE MANAGER Hospital Encounter [facility] OP Cardiac Testing [address] [place] [address] Other form of dyspnea; LBBB (left bundle branch block); Nonrheumatic mitral valve regurgitation; Essential hypertension; Mixed hyperlipidemia; Abdominal aortic atherosclerosis (HCC); Aortic valve stenosis, moderate; Nonrheumatic aortic valve stenosis; Paroxysmal A-fib (CMS/HCC) (HCC); Pacemaker Discharge Disposition: Discharge to home or self care 10/03/2024 8:45 AM CRANE MANAGER Ancillary Procedure [facility] [address] [facility] [address] [place] [address] Tachy-fela syndrome (CMS/HCC) (HCC); Pacemaker from Last 3 Months Surgical History Surgery Date Site/Laterality Comments EYE SURGERY COLONOSCOPY NECK SURGERY 1999 US GUIDED THORACENTESIS 08/15/2024 N/A Medical History Medical History Date Comments Diabetes mellitus (HCC) Hypertension Diabetes mellitus type 2 in nonobese (CMS/HCC) ( HCC) 05/15/2021 Mitral valve regurgitation 05/15/2021 Essential hypertension 05/15/2021 Anemia Diarrhea Hyperlipidemia Cataract Sinus drainage Non Hodgkin's lymphoma (HCC) Atrial fibrillation (CMS/HCC) (HCC) Family History Medical History Relation Name Comments Diabetes Father Heart disease Father Hyperlipidemia Father Hypertension Father Diabetes Mother Heart disease Mother Hyperlipidemia Mother Hypertension Mother Relation Name Status Comments Father (Age 88) Mother (Age 67) Other Other Diabetes mellit us type 2 in most siblings Social History Tobacco Use Types Packs/Day Years Used Date Smoking Tobacco: Former Cigarettes 2 25 1 976 - 2000 Cigars Smokeless Tobacco: Never Tobacco Cessation:Counseling Given: Not Answered Alcohol Use Standard Drinks/Week Comments Not Currently 0 (1 standard drink = 0.6 oz pur e alcohol) occasionally [employer] Answer Date Recorded In the past 12 months has [employer] gas, oil, or water [email or web address] threatened to shut off services in your [...] often do you attend chur ch or baptism services? Never 09/25/2023 Do you belong to any clubs o r organizations such as adventist groups, unions, fraternal or athletic groups, or [...] place to sleep or slept in a fpc (including now)? No 09/25/2023 Personal Safety Answer Date Recorded Have you ever been in or are you currently in a harmful physical or emotional relationship or is someone making you feel afraid or unsafe? Denies 09/25/2023 Sex and Gender Information Value Date Recorded Sex Assigned at Not on file Legal Sex Male 7:49 PM CRANE MANAGER Gender Identity Not on file Sexual Orientation Not on file Occupation Industry Job Start Date Job End Date Retired Not on file Not on file Not on file Obstetrics History Last Filed Vital Signs Vital Sign Reading Time Taken Comments Blood Pressure 134/60 12/19/2024 12:35 PM CRANE MANAGER Pulse 63 12/19/2024 12:35 PM CRANE MANAGER Temperature 36.6 C (97.9 F) 09/28/2023 1:07 PM CRANE MANAGER Respiratory Rate 16 12/19/2024 12:35 PM CRANE MANAGER Oxygen Saturation 99% 12/19/2024 12:35 PM CRANE MANAGER Inhaled Oxygen Concentration - - Weight 57.7 kg (127 lb 1.6 oz) 12/19/2024 12:35 PM CRANE MANAGER Height 162.6 cm (5' 4 ) 12/19/2024 12:35 PM CRANE MANAGER Body Mass Index 21.82 12/19/2024 12:35 PM CRANE MANAGER Plan of Treatment Health Maintenance Due Date Last Done Comments Albumin Creatinine Ratio, Urine 1945 Depression Screening 1945 Hepatitis C Screening 1945 Dilated Eye Exam 1945 Foot Exam 1945 DTaP/Tdap/Td Vaccine (1 - Tdap) 1956 Hepatitis B Screening 1963 Well Visit 65+ 2010 Hemoglobin A1C 06/10/2022 12/11/2021, 05/15/2021 Covid-19 Vaccine (2023-2 5 season) 2024 09/08/2021, 01/06/2021, 12/10/2020 Fall Risk Assessment 09/28/2024 09/28/2023 Lipid Panel 08/06/2025 08/06/2024, 05/06, 01/01/2024, Additional history exists eGFR 12/15/2025 12/15/2024, 12/0 12/2022, 09/26/2023, Additional history exists Zoster Vaccine Completed 06/13/2018, 02/21/2018 Pneumococcal vaccine 65+ Completed 019, 07/22/2018, 08/08/2016 Influenza Vaccine Completed 09/11/2024, , 08/03/2020, Additional history exists Medical Devices Implanted Type Area Bobj Developer Device Identifier Shelf Expiration Date Model / Serial / Lot [employer] 8tc/[address]s 6fr 46cm Is-1 Connector Bipolar Active Fixation - [id number] Implanted:Qty: 1 on 12/14/2021 by Daily, Harley Mg MD at [facility] Lead [employer] 8TC/46 / / [employer] [id number] Assurity Mri [id number] Chamber Is-1 Connector Thk6mm Pacemaker - [id number] - [id number] Implanted:Qty: 1 on 12/14/2021 by Daily, Harley Mg MD at [facility] Pacemaker [employer] [id number] 04/04/2023 [id number] / [id number] / [employer] [id number] Assurity Mri [id number] Chamber Is-1 Connector Thk6mm Pacemaker - [id number] - [id number] Implanted:Qty: 1 on 12/14/2021 by Daily, Harley Mg MD at [facility] Pacemaker [employer] [id number] 04/04/2023 [id number] / [id number] / Procedures Procedure Name Priority Date/Time Associated Diagnosis Comments SPECIMEN STATUS REPORT Routine 12/15/2024 11:19 AM CRANE MANAGER CBC/DIFF AMBIGUOUS DEFAULT Routine 12/15/2024 11:19 AM CRANE MANAGER THYROID FUNCTION CASCADE Routine 12/15/2024 11:19 AM CRANE MANAGER COMPREHENSIVE METABOLIC PANEL Routine 12/15/2024 11:19 AM CRANE MANAGER CBC WITH AUTO DIFFERENTIAL Routine 12/15/2024 11:19 AM CRANE MANAGER TRANSTHORACIC ECHO (TTE) COMPLETE W DOPPLER/CF WO CONTRAST Routine 11/26/2024 11:45 AM CRANE MANAGER Other form of dyspnea LBBB (left bundle branch block) Nonrheumatic mitral valve regurgitation Essential hypertension Mixed hyperlipidemia Abdominal aortic atherosclerosis (HCC) Aortic valve stenosis, moderate Nonrheumatic aortic valve stenosis Paroxysmal A-fib (CMS/HCC) (HCC) Pacemaker DEVICE CHECK - REMOTE Routine 10/06/2024 9:56 AM CRANE MANAGER Tachy-fela syndrome (CMS/HCC) (HCC) Pacemaker LIPID PANEL Routine 05/26/2024 Mixed hyperlipidemia HEMOGLOBIN A1C Routine 12/11/2021 12:52 AM CRANE MANAGER from Last 3 Months or Most Recently Relevant to Health Maintenance Results * Specimen Status Report (12/15/2024 11:19 AM CRANE MANAGER) Specimen Status Report Comment [facility] - 01 Comment: Jacinta Guzmán CMP14 Default Jacinta Guzmán CMP14 Default A hand-written panel/profile was received from your office. In accordance with the [facility] Ambiguous Test Code Policy dated May 2003, we have completed your order by using the closest currently or formerly recognized AMA panel. We have assigned Comprehensive Metabolic Panel (14), Test Code #618238 to this request. If this is not the testing you wished to receive on this specimen, please contact the [facility] Client Inquiry/Technical Services Department to clarify the test order. We appreciate your business. 12/15/2024 11:1 9 AM CRANE MANAGER 12/15/2024 Narrative [facility] - 12/16/2024 7:35 AM CRANE MANAGER Performed at: - [address] [id number] Dictaphone Typist: Preston Valdez PhD, Phone: [phone] us Fanny Hunt MD LAB BLOOD ORDERABLES Final Result [facility] - 01 * CBC/Diff Ambiguous Default (12/15/2024 11:19 AM CRANE MANAGER) 12/15/2024 11:1 9 AM CRANE MANAGER us Fanny Hunt MD LAB BLOOD ORDERABLES Final Result Performing Organization Address City/[facility]/ZIP Co de Phone Number [facility] * Thyroid Function [place] (12/15/2024 11:19 AM CRANE MANAGER) [facility] TSH 0.861 0.450 - 4.500 uIU/mL [facility] - 01 Comment: No apparent thyroid disorder. Additional testing not indicated. In rare instances, Secondary Hypothyroidism as well as Subclinical Hypothyroidism have been reported in some patients with normal TSH values. 12/15/2024 11:1 9 AM CRANE MANAGER 12/15/2024 Narrative [facility] - 12/16/2024 4:09 PM CRANE MANAGER Performed at: [address] [id number] Dictaphone Typist: Preston Valdez PhD, Phone: [phone] Fanny Hunt MD LAB BLOOD ORDERABLES Final Result Performing Organization Address [facility] Co de Phone Number [facility] - 01 * (ABNORMAL) CBC with auto differential (12/15/2024 11:19 AM CRANE MANAGER) [facility] WBC 4.8 3.4 - 10.8 x10E3/uL [facility] [...] [facility] - 01 12/15/2024 11:1 9 AM CRANE MANAGER 12/15/2024 Narrative [facility] - 12/16/2024 7:35 AM CRANE MANAGER Performed at: [address] [id number] Dictaphone Typist: Preston Valdez PhD, Phone: [phone] us Fanny Hunt MD LAB BLOOD ORDERABLES Final Result [facility] * (ABNORMAL) Comprehensive metabolic panel (12/15/2024 11:19 AM CRANE MANAGER) Glucose 208(H) 70 - 99 mg/dL [facility] [...] [facility] - 01 12/15/2024 11:1 9 AM CRANE MANAGER 12/15/2024 Narrative [facility] - 12/16/2024 9:36 AM CRANE MANAGER Performed at: 01 - [address] [id number] Dictaphone Typist: Preston Valdez PhD, Phone: [phone] us Fanny Hunt MD LAB BLOOD ORDERABLES Final Result [facility] - 01 * TRANSTHORACIC ECHO (TTE) COMPLETE W DOPPLER/CF WO CONTRAST (11/26/2024 11:45 AM CRANE MANAGER) Anatomical Region Laterality Modality Ultrasound 11/26/2024 10:3 9 AM CRANE MANAGER Narrative 11/28/2024 4:11 PM CRANE MANAGER Adult Echocardiogram + ----- -------+ :Name: ESTUARDO RENO Study Date: 11/26/2024 Status: MHB : : [address] 64 in : : Weight: 149 lbBP: [...] Date: 11/26/2024 Status: MHB: : Patient Location: MHBMOB2 CRDT^^^MHBHeight: 64in : : Weight: 149lbBP: 110/60 mmHg: [...] DEVICE CHECK - REMOTE (10/06/2024 9:56 AM CRANE MANAGER) Anatomical Region Laterality Modality Other Narrative 12/02/2024 10:18 AM CRANE MANAGER Table formatting from the original result was not included. Patient ID: Estuardo Reno is a 79 y.o. male This patient has a(n) Pean dual chamber pacemaker. They had a routine [...] AT/AF episode(s), longest duration 1 hour AT/AF [place] <1% 18 high ventricular rate episode(s): mix [...] us Homer Bullock MD CV CARDI[facility] Final Result * Lipid panel (05/26/2024) SCRIBED Cholesterol, Total 119 l - h [facility] SCRIBED HDL 49 l - h [facility] SCRIBED LDL 53 l - h [facility] SCRIBED Triglycerides 88 l - h [facility] Blood 05/26/2024 Claribel Lindsey [employer] LAB BLOOD ORDERABLES Final Result [facility] * (ABNORMAL) Hemoglobin A1c (12/11/2021 12:52 AM CRANE MANAGER) Hgb A1C 6.3(H) 4.0 - 5.6 % [facility] Estimated Average Glucose 134 mg/dL [facility] Comment: The ADA recommends reporting an estimated Average Glucose (eAG) with all Hemoglobin A1c results using the equation derived from a study of 507 normal and diabetic adults. Minority populations were underrepresented and children were not included. (Diabetes Care 31:6008-9220, 2008). The eAG is not equivalent to a fasting glucose. Blood 12/11/2021 12:5 2 AM CRANE MANAGER 12/11/2021 12:53 AM CRANE MANAGER Rosmery Nelson [employer] LAB BLOOD ORDERABLES Final Result Performing Organization Address City/[facility]/ZIP Co de Phone Number [facility] [address] [facility] [place] [address] from Last 3 Months or Most Recently Relevant to Health Maintenance Insurance [facility] HEALTHCARE Advance Directives For more information, please contact: [phone] * Full Code (Latest Code Status on File) Date Activated Date Inactivated Comments 09/25/2023 12:12 PM 09/28/2023 8:32 PM * Full Code Date Activated Date Inactivated Comments 12/14/2021 10:19 AM 12/15/2021 8:20 PM * Full Code Date Activated Date Inactivated Comments 12/10/2021 9:58 PM 12/14/2021 10:19 AM * Full Code Date Activated Date Inactivated Comments 05/15/2021 12:37 AM 05/16/2021 8:55 PM Care Teams Product/Device Technologist Relationship Specialty Start Date End Date Moses Conn MD [address] [place] [address] PCP - General 10/08/20 Anjelica Fish MD [address] [address] Embedded Software Engineer Cardiovascular Disease 05/16/21
--- OUTSIDE RECORDS SUMMARY | 2024-12-25 09:04 | XMS_ITS | Referral Summary ---
Author Organization [facility] Address [address] [place] [address] Care Team Providers Care Home Health Scheduler Name Role Phone Moses Conn MD Primary Care Provider Anjelica Fish MD Unavailable [phone] Encounters Date Type Department Care Team Description 12/24/2024 Telephone [facility] Cardiology [address] [place] [phone] Fanny Hunt MD 12/19/2024 11:30 AM CONTACT CENTRE SUPERVISOR Office Visit [facility] Cardiology [address] [place] [phone] Fanny Hunt MD Nonrheumatic aortic valve stenosis (Primary Dx); Tachy-fela syndrome (CMS/HCC) (HCC); Paroxysmal A-fib (CMS/HCC) (HCC); Benign essential hypertension; Mixed hyperlipidemia 12/16/2024 Telephone [facility] Cardiology [address] [place] [phone] Fanny Hunt MD blood test results 12/15/2024 Orders Only [facility] Cardiology [address] [place] [phone] Fanny Hunt MD 12/15/2024 Orders Only [facility] Cardiology [address] [place] [phone] Fanny Hunt MD 12/03/2024 Telephone [facility] Cardiology [address] [place] [address] [address] [place] [phone] Fanny Hunt MD 11/26/2024 10:15 AM CONTACT CENTRE SUPERVISOR - 11/26/2024 11:59 PM CONTACT CENTRE SUPERVISOR Hospital Encounter [facility] OP Cardiac Testing [address] [place] [address] Other form of dyspnea; LBBB (left bundle branch block); Nonrheumatic mitral valve regurgitation; Essential hypertension; Mixed hyperlipidemia; Abdominal aortic atherosclerosis (HCC); Aortic valve stenosis, moderate; Nonrheumatic aortic valve stenosis; Paroxysmal A-fib (CMS/HCC) (HCC); Pacemaker Discharge Disposition: Discharge to home or self care 10/03/2024 8:45 AM CONTACT CENTRE SUPERVISOR Ancillary Procedure [facility] Cardiology [facility] [address] [phone] Tachy-fela syndrome (CMS/HCC) ([facility] [...] every 8 (eight) hours as needed 01/25/20 Active spironolactone (ALDACTONE) 50 mg tablet Take [...] plan to continue same Paroxysmal atrial fibrillation ([facility]) 021 Overview (12/18/2024): [...] monitoring Diabetes mellitus type 2 in nonobese ([facility]) 0 05/15/2021 Essential [...] Former Cigarettes 2 25 1 976 - 2001 Cigars Smokeless Tobacco: Never Tobacco Cessation:Counseling Given: Not Answered Alcohol Use Standard Drinks/Week Comments Not Currently 0 (1 standard drink = 0.6 oz pur e alcohol) occasionally [employer] Util[employer] Answer Date Recorded In the past 12 months has Social IQ (Social Influence Quotient), gas, oil, or water [employer] threatened to shut off services in your [...] often do you attend chur ch or scientology services? Never 09/25/2023 Do you belong to any clubs o r organizations such as mormonism groups, unions, fraternal or athletic groups, or [...] place to sleep or slept in a retirement (including now)? No 09/25/2023 Personal Safety Answer Date Recorded Have you ever been in or are you currently in a harmful physical or emotional relationship or is someone making you feel afraid or unsafe? Denies 09/25/2023 Sex and Gender Information Value Date Recorded Sex Assigned at Not on file Legal Sex Male 7:49 PM CONTACT CENTRE SUPERVISOR Gender Identity Not on file Sexual Orientation Not on file Occupation Industry Job Start Date Job End Date Retired Not on file Not on file Not on file Last Filed Vital Signs Vital Sign Reading Time Taken Comments Blood Pressure 134/60 12/19/2024 12:35 PM CONTACT CENTRE SUPERVISOR Pulse 63 12/19/2024 12:35 PM CONTACT CENTRE SUPERVISOR Temperature 36.6 C (97.9 F) 09/28/2023 1:07 PM CONTACT CENTRE SUPERVISOR Respiratory Rate 16 12/19/2024 12:35 PM CONTACT CENTRE SUPERVISOR Oxygen Saturation 99% 12/19/2024 12:35 PM CONTACT CENTRE SUPERVISOR Inhaled Oxygen Concentration - - Weight 57.7 kg (127 lb 1.6 oz) 12/19/2024 12:35 PM CONTACT CENTRE SUPERVISOR Height 162.6 cm (5' 4 ) 12/19/2024 12:35 PM CONTACT CENTRE SUPERVISOR Body Mass Index 21.82 12/19/2024 12:35 PM CONTACT CENTRE SUPERVISOR Plan of Treatment Not on file Medical Devices Implanted Type Area Outbound Sales Executive Device Identifier Shelf Expiration Date Model / Serial / Lot [employer] [id number]/ Tendril Sts 6fr 46cm Is-1 Connector Bipolar Active Fixation - [id number] Implanted:Qty: 1 on 12/14/2021 by Daily, Harley Mg MD at [facility] Lead [employer] [id number] / / [employer] [id number] Assurity Mri [id number] Chamber Is-1 Connector Thk6mm Pacemaker - [id number] - [id number] Implanted:Qty: 1 on 12/14/2021 by Daily, Harley Mg MD at [facility] Pacemaker [employer] [id number] 04/04/2023 [id number] / [id number] / [employer] [id number] Assurity Mri [id number] 2 Chamber Is-1 Connector Thk6mm Pacemaker - [id number] - [id number] Implanted:Qty: 1 on 12/14/2021 by Daily, Harley Mg MD at [facility] Pacemaker [employer] [id number] 04/04/2023 [id number] / [id number] / Procedures Procedure Name Priority Date/Time Associated Diagnosis Comments SPECIMEN STATUS REPORT Routine 12/15/2024 11:19 AM CONTACT CENTRE SUPERVISOR CBC/DIFF AMBIGUOUS DEFAULT Routine 12/15/2024 11:19 AM CONTACT CENTRE SUPERVISOR THYROID FUNCTION CASCADE Routine 12/15/2024 11:19 AM CONTACT CENTRE SUPERVISOR COMPREHENSIVE METABOLIC PANEL Routine 12/15/2024 11:19 AM CONTACT CENTRE SUPERVISOR CBC WITH AUTO DIFFERENTIAL Routine 12/15/2024 11:19 AM CONTACT CENTRE SUPERVISOR TRANSTHORACIC ECHO (TTE) COMPLETE W DOPPLER/CF WO CONTRAST Routine 11/26/2024 11:45 AM CONTACT CENTRE SUPERVISOR Other form of dyspnea LBBB (left bundle branch block) Nonrheumatic mitral valve regurgitation Essential hypertension Mixed hyperlipidemia Abdominal aortic atherosclerosis (HCC) Aortic valve stenosis, moderate Nonrheumatic aortic valve stenosis Paroxysmal A-fib (CMS/HCC) (HCC) Pacemaker DEVICE CHECK - REMOTE Routine 10/06/2024 9:56 AM CONTACT CENTRE SUPERVISOR Tachy-fela syndrome (CMS/HCC) (HCC) Pacemaker LIPID PANEL Routine 05/26/2024 Mixed hyperlipidemia HEMOGLOBIN A1C Routine 12/11/2021 12:52 AM CONTACT CENTRE SUPERVISOR from Last 3 Months or Most Recently Relevant to Health Maintenance Results * Specimen Status Report (12/15/2024 11:19 AM CONTACT CENTRE SUPERVISOR) Specimen Status Report Comment [facility] - 01 Comment: Jacinta Abbrev CMP14 Default Ambnishi Abbrev CMP14 Default A hand-written panel/profile was received from your office. In accordance with the [facility] Ambiguous Test Code Policy dated May 2003, we have completed your order by using the closest currently or formerly recognized AMA panel. We have assigned Comprehensive Metabolic Panel (14), Test Code #472227 to this request. If this is not the testing you wished to receive on this specimen, please contact the [facility] Client Inquiry/Technical Services Department to clarify the test order. We appreciate your business. 12/15/2024 11:1 9 AM CONTACT CENTRE SUPERVISOR 12/15/2024 Narrative [facility] - 12/16/2024 7:35 AM CONTACT CENTRE SUPERVISOR Performed at: - [address] [id number] Industrial Gas Production Operator: Preston Valdez PhD, Phone: [phone] us Fanny Hunt MD LAB BLOOD ORDERABLES Final Result [facility] - 01 * CBC/Diff Ambiguous Default (12/15/2024 11:19 AM CONTACT CENTRE SUPERVISOR) 12/15/2024 11:1 9 AM CONTACT CENTRE SUPERVISOR Fanny Hunt MD LAB BLOOD ORDERABLES Final Result Performing Organization Address [facility] Co de Phone Number [facility] * Thyroid Function Sharon (12/15/2024 11:19 AM CONTACT CENTRE SUPERVISOR) Pathologist [facility] TSH 0.861 0.450 - 4.500 uIU/mL [facility] - 01 Comment: No apparent thyroid disorder. Additional testing not indicated. In rare instances, Secondary Hypothyroidism as well as Subclinical Hypothyroidism have been reported in some patients with normal TSH values. 12/15/2024 11:1 9 AM CONTACT CENTRE SUPERVISOR 12/15/2024 Narrative [facility] - 12/16/2024 4:09 PM CONTACT CENTRE SUPERVISOR Performed at: [address] [place] [id number] Industrial [employer] Production Operator: Preston Valdez PhD, Phone: [phone] Fanny Hunt MD LAB BLOOD ORDERABLES Final Result Performing Organization Address [facility] Co de Phone Number [facility] - 01 * (ABNORMAL) CBC with auto differential (12/15/2024 11:19 AM CONTACT CENTRE SUPERVISOR) Pathologist [facility] WBC 4.8 [...] [facility] - 01 12/15/2024 11:1 9 AM CONTACT CENTRE SUPERVISOR 12/15/2024 Narrative [facility] - 12/16/2024 7:35 AM CONTACT CENTRE SUPERVISOR Performed at: [address] [place] [id number] [employer] Production Operator: Preston Valdez PhD, Phone: [phone] us Fanny Hunt MD LAB BLOOD ORDERABLES Final Result [facility] * (ABNORMAL) Comprehensive metabolic panel (12/15/2024 11:19 AM CONTACT CENTRE SUPERVISOR) [facility] Glucose 208(H) 70 - 99 mg/dL [facility] [...] [facility] - 01 12/15/2024 11:1 9 AM CONTACT CENTRE SUPERVISOR 12/15/2024 Narrative [facility] - 12/16/2024 9:36 AM CONTACT CENTRE SUPERVISOR Performed at: - [address] [id number] Industrial [employer] Production Operator: Preston Valdez PhD, Phone: [phone] us Fanny Hunt MD LAB BLOOD ORDERABLES Final Result [facility] - 01 * TRANSTHORACIC ECHO (TTE) COMPLETE W DOPPLER/CF WO CONTRAST (11/26/2024 11:45 AM CONTACT CENTRE SUPERVISOR) Anatomical Region Laterality Modality Ultrasound 11/26/2024 10:3 9 AM CONTACT CENTRE SUPERVISOR Narrative 11/28/2024 4:11 PM CONTACT CENTRE SUPERVISOR Adult Echocardiogram + ----- -------+ :Name: ESTUARDO RENO Date: 11/26/2024 Status: MHB : : Patient Location: [address]^MHBHeight: 64 in : : Weight: 149 [...] :Name: ESTUARDO RENO Study Date: 11/26/2024 Status: TEMIB: : Patient Location: [address]^MHBHeight: 64in : : Weight: 149lbBP: 110/60 [...] DEVICE CHECK - REMOTE (10/06/2024 9:56 AM CONTACT CENTRE SUPERVISOR) Anatomical Region Laterality Modality Other Narrative 12/02/2024 10:18 AM CONTACT CENTRE SUPERVISOR Table formatting from the original result was [...] AT/AF episode(s), longest duration 1 hour AT/AF Dows <1% 18 high ventricular rate episode(s): mix [...] lead revision. Next in office appointment to [id number] Mae. Homer Bullock MD Cardiac Electrophysiology us Homer Bullock MD [facility] Final Result * Lipid panel (05/26/2024) SCRIBED Cholesterol, Total 119 l - h [facility] SCRIBED HDL 49 l - h [facility] SCRIBED LDL 53 l - h [facility] SCRIBED Triglycerides 88 l - h [facility] Blood 05/26/2024 us Claribel Lindsey PIPE LINE REPAIRER LAB BLOOD ORDERABLES Final Result [facility] * (ABNORMAL) Hemoglobin A1c (12/11/2021 12:52 AM CONTACT CENTRE SUPERVISOR) Hgb A1C 6.3(H) 4.0 - 5.6 % [facility] Estimated Average Glucose 134 mg/dL [facility] Comment: The ADA recommends reporting an estimated Average Glucose (eAG) with all Hemoglobin A1c results using the equation derived from a study of 507 normal and diabetic adults. Minority populations were underrepresented and children were not included. (Diabetes Care 31:2225-1221, 2008). The eAG is not equivalent to a fasting glucose. Blood 12/11/2021 12:5 2 AM CONTACT CENTRE SUPERVISOR 12/11/2021 12:53 AM CONTACT CENTRE SUPERVISOR Rosmery Nelson NP LAB BLOOD ORDERABLES Final Result [facility] [address] [facility] Department [place] [address] from Last 3 Months or Most Recently Relevant to Health Maintenance Insurance [facility] Member Subscriber Plan / Payer (Ef fective 2015-Present) Name:SelamEstuardo del rosario Sarah Relation to Subscriber:Self Name:Esutardo Reno Payer ID:[id number] ([facility]) Type:MEDICARE RISK OTHER Address: [place] [id number] [facility] Advance Directives For more information, please contact: [phone] * Full Code (Latest Code Status on File) Date Activated Date Inactivated Comments 09/25/2023 12:12 PM 09/28/2023 8:32 PM * Full Code Date Activated Date Inactivated Comments 12/14/2021 10:19 AM 12/15/2021 8:20 PM * Full Code Date Activated Date Inactivated Comments 12/10/2021 9:58 PM 12/14/2021 10:19 AM * Full Code Date Activated Date Inactivated Comments 05/15/2021 12:37 AM 05/16/2021 8:55 PM Care Teams Home Health Scheduler Relationship Specialty Start Date End Date Moses Conn MD [address] [place] [address] PCP - General 10/08/20 Anjelica Fish MD [address] [facility] [address] [place] [address] [address] [employer] Cardiovascular Disease 05/16/21
--- OUTSIDE RECORDS SUMMARY | 2024-12-25 09:04 | XMS_ITS | Clinical Summary ---
Author Organization [facility] Address [facility] [place] [address] Care Team Providers Care Car Blocker Name Role Phone Moses Conn MD Primary Care Provider [phone] Cristy Brantley RN Unavailable [phone] Moses Conn MD Unavailable [phone] Allergies Active Allergy Reactions Criticality Noted [...] (two) times daily. Indications: Viral Infection Active vitamin B-12 (CYANOCOBALAMIN) (CYANOCOBALAMIN) 1000 mcg tabletIndications: [...] (two) times daily. Indications: High Blood Pressure Active furosemide (LASIX) 40 MG tabletIndications: Diuretic Therapy Take 1 tablet (40 mg total) by mouth daily. Indications: Treatment with Diuretic Therapy Active zinc gluconate 50 MG TabIndications:Vit santacruz [...] ammonia in the blood 3784 mL 2 Active ondansetron (ZOFRAN-ODT) 4 MG disintegrating tabletIndications: Nausea Take 1 tablet (4 mg total) by mouth every 8 (eight) hours as needed for Nausea. Indications: Nausea 20 tablet Active rifAXIMin (XIFAXAN) 550 MG TabIndications:Meliza rrhea [...] by mouth daily. Indications: Infection Treatment Active JARDIANCE 25 MG tabletIndications: Type 2 diabetes mellitus without complication, without long-term current use of insulin ([facility]/HCC HHS/HCC) TAKE 1 TABLET (25 MG TOTAL) BY MOUTH DAILY. 90 tablet 3 025 Active sucralfate (CARAFATE) 1 G tabletIndications: Stomach Discomfort TAKE 1 TABLET (1 G TOTAL) BY MOUTH 4 (FOUR) TIMES DAILY. INDICATIONS: STOMACH DISCOMFORT 360 tablet 1 025 Active empagliflozin (JARDIANCE) 25 MG tabletIndications: Diabetes Mellitus Take 1 tablet (25 mg total) by mouth daily. 90 tablet 3 023 2024 Discontinued spironolactone (ALDACTONE) 50 MG tabletIndications: Diuretic Therapy Take 1 tablet (50 mg total) by mouth daily. Indications: Treatment with Diuretic Therapy 024 2024 Discontinued(D ose adjustment) SITagliptin (JANUVIA) 100 MG tabletIndications: Diabetes Mellitus Take 1 tablet (100 mg total) by mouth daily. 30 tablet 5 024 2024 Discontinued(C ost of medication) sucralfate (CARAFATE) 1 G tabletIndications: Stomach Discomfort Take 1 tablet (1 g total) by mouth 4 (four) times daily. Indications: Stomach Discomfort 120 tablet 3 024 2024 Discontinued metFORMIN (GLUCOPHAGE) 1000 MG [...] steatotic liver disease (MASLD) 09/02/2024 Non-Hodgkin's lymphoma ([facility]/HCC HHS/HCC) 024 Hepatic encephalopathy (CMS/HCC HHS/HCC) 024 Fecal occult blood test positive 07/15/2024 Esophageal varices ([facility]/HCC HHS/HCC) 07/15/2024 Erosive gastritis 07/15/2024 Chronic obstructive pulmonary disease (CMS/[facility] H HS/HCC) 07/15/2024 Confusion 07/15/2024 Myalgia 07/15/2024 Generalized edema 07/15/2024 Type 2 diabetes mellitus wit h hyperglycemia ([facility]/HCC HHS/HCC) 02/14/2024 Normocytic anemia 02/14/2024 Iron deficiency anemia 02/14/2024 Other ascites 01/08/2024 Other cirrhosis of liver (CMS/HCC HHS/HCC) 01/07 SBO (small bowel obstruction) ([facility] HHS/HCC) 09/25/2023 Chemotherapy-induced neutropenia 09/25/2023 Pacemaker 07/18/2023 Overview (07/18/2023): Last Assessment & Plan: Patient has sick sinus syndrome with tachy bradyarrhythmia atrial fibrillation and bradycardia requiring permanent pacemaker which is functioning is being monitored Follicular non-Hodgkin's lymphoma ([facility] HHS/H CC) 02/26/2023 Intestinal lymphoma ([facility] HHS/HCC) 02/16/2023 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 ([facility] HHS/HCC) 01/15/2023 Abdominal aortic atherosclerosis 01/15/2023 Iron deficiency 01/15/2023 Combined forms of age-related cataract of both e yes 08/18/2022 Other dietary vitamin B12 deficiency anemia 05/06 Mesenteric lymphadenopathy 05/03/2022 Normocytic anemia 04/12/2022 Chronic anemia 04/12/2022 Pancytopenia ([facility]/HCC HHS/HCC) 04/12/2022 Status post biventricular cardiac pacemaker inse rtion 12/26/2021 Paroxysmal atrial fibrillation ([facility] HHS/HCC) 06/01/2021 Overview (02/14/2024): Last Assessment & Plan: [...] 05/27/2012 Hyperlipidemia 05/27/2012 Type 2 diabetes mellitus ([facility]) 05/27 Resolved Problems Problem Noted Date Diagnosed Date Resolved Date ALEMAN (dyspnea on exertion) 05/14/2021 Encounters Date Type Department Care Team Description 12/23/2024 9:00 AM SPEARER Home Care Visit [address] [address] Natividad Amato OTA HDEZ HOME VISIT 12/22/2024 10:15 AM SPEARER Home Care Visit [address] [address] Marshall Anguiano, [employer] PT HOME VISIT 12/18/2024 11:45 AM SPEARER Home Care Visit [address] [place] [address] Marshall Anguiano, [employer] PT HOME VISIT 12/18/2024 9:00 AM SPEARER Home Care Visit [address] [place] [address] Natividad Amato OTA HDEZ HOME VISIT 12/17/2024 Patient Outreach [facility] Family & Internal [address] [address] Cristy Brantley, RN Care Management 12/16/2024 2:00 PM SPEARER Office Visit [facility] Family & Internal [address] [address] Moses Conn MD TCM ([facility] D/C 2/3 for hepatic cirrhosis); Medication ([facility] D/C'd januvia, metformin, and Furosemide. Patient's is worried that glucose has been running 300's fasting and patient's legs are swelling) 12/16/2024 Travel 12/15/2024 2:00 PM SPEARER Home Care Visit [address] [address] Cindy Houser, PT PT HOME VISIT 12/15/2024 1:00 PM SPEARER Home Care Visit [address] [address] Alma Gunderson, OT OT INITIAL EVALUATION 12/15/2024 Telephone [facility] Family & Internal [address] [address] Moses Conn MD Referral Request 12/11/2024 9:00 AM SPEARER Home Care Visit [address] [address] Cindy Houser, PT PT INITIAL EVALUATION 12/11/2024 Patient Outreach [facility] Family & Internal [address] [address] Kandis Bo, BRIDGER Care Management 12/10/2024 11:00 AM SPEARER Home Care Visit [address] [address] Basilia Curtis RN SN OASIS RESUMPTION OF CARE 12/10/2024 Scan Havsjo Delikatesser SRVCS Scanned, Doc Med Group 12/10/2024 Telephone [facility] Family & Internal Medicine [place] [address] [place] [phone] Moses Conn MD Information (Fall/home health) 12/10/2024 Plan of Care Documentation [address] [place] [address] 12/09/2024 Scan MG HEALTH INFO SRVCS Scanned, Doc Med Group Procedure (SCAN) 12/09/2024 Telephone [facility] Family & Internal [address] [address] Moses Conn MD Lab Order 12/09/2024 Patient Outreach [facility] Internal [address] [phone] Cristy Brantley, RN TCM (u 12/03-12/08) 12/09/2024 Home Care Visit [address] [address] Michelle Kamara RN SN NON ADMIT HOLLIE 12/08/2024 Scan MG HEALTH INFO SRVCS Scanned, Doc Med Group 12/05/2024 Home Care Visit [place] [phone] Michelle Olivo RN SN OASIS TRANSFER W/OUT DC 12/05/2024 Patient Outreach [facility] Family & Internal [address] [phone] Cristy Brantley, RN Hospital Follow Up 12/04/2024 Scan MG HEALTH INFO SRVCS Scanned, Doc Med Group 12/04/2024 Patient Outreach [facility] Internal [address] [phone] Campos Sparrow CPhT Medication (Xifaxin Patient assistance has been approved) 12/03/2024 Home Care Visit [address] [place] [address] Xavi Dave LPN SN TELEPHONE CALL 12/02/2024 6:00 PM SPEARER Home Care Visit [address] [address] Natividad Amato OTA HDEZ HOME VISIT 12/02/2024 12:15 PM SPEARER Home Care Visit [address] [address] Xavi Dave LPN SN HOME VISIT 12/01/2024 2:00 PM SPEARER Home Care Visit [address] [phone] Marshall Anguiano, [employer]ER HOME VISIT 12/01/2024 10:40 AM SPEARER Office Visit [facility] & Internal [address] [phone] Moses Conn MD TCM ([facility] f/u 11/06-11/13 for encephalopathy); Confusion (Patient has increased confusion today. ) 12/01/2024 Scan Exepron SRVCS Scanned, Doc Med Group Lab (SCAN) 12/01/2024 Telephone [facility] Internal [address] [phone] Mosse Conn MD Information 12/01/2024 Travel 11/28/2024 Patient Outreach [facility] Internal [address] [phone] Campos Sparrow, security vehicle patrol officer Medication (Xifaxin Patient Assistance ) 11/27/2024 2:15 PM SPEARER Home Care Visit [address] [phone] Marshall Anguiano, [employer] HOME VISIT 11/27/2024 1:30 PM SPEARER Home Care Visit [address] [phone] Jeanne Bey, RN SN HOME VISIT 11/27/2024 9:00 AM SPEARER Home Care Visit [address] [place] [address] Natividad Amato OTA HDEZ HOME VISIT 11/26/2024 12:45 PM SPEARER Home Care Visit [address] [place] [address] Marshall Anguiano L, [employer]ER [employer]ER HOME VISIT 11/26/2024 Patient Outreach [facility] Family & Internal [address] [phone] Campos Sparrow, security vehicle patrol officer Medication (Xifaxin pap follow up) 11/25/2024 Scan MG HEALTH INFO SRVCS Scanned, Doc Med Group Ultrasound (SCAN) 11/25/2024 Patient Outreach [facility] Internal [address] [phone] Cristy Brantley, OLAF Care Management 11/24/2024 1:15 PM SPEARER Home Care Visit [address] [phone] Alma Gunderson, OT OT INITIAL EVALUATION 11/21/2024 9:30 AM SPEARER Home Care Visit [address] [address] Vidhya Sanabria, PT PT INITIAL EVALUATION 11/19/2024 9:30 AM SPEARER Home Care Visit [address] [phone] Miki Mcarthur, RN SN OASIS START OF CARE 11/19/2024 Plan of Care Documentation [address] [phone] 11/18/2024 Scan [facility] HEALTH INFO SRVCS Scanned, Doc Med Group Procedure (SCAN); Lab (SCAN) 11/13/2024 Scan [facility] HEALTH INFO SRVCS Scanned, Doc Med Group 11/13/[address] [place] [address] [place] [address] Moses Conn MD Advise 11/13/[address] Care [facility] [place] [address] [place] [address] Moses Conn MD Advise 11/13/[address] [place] [address] [place] [address] Scanned, Doc [facility] 11/13/2024 Telephone [facility] Family & Internal [facility] [address] [place] [address] Moses Conn MD Referral; Information 11/07/2024 Scan MG HEALTH INFO SRVCS Scanned, Doc Med Group 11/07/2024 Patient Outreach [facility] Internal [place] [address] [place] [address] Campos Sparrow CPhT Medication (Xifaxin patient assistance program ) 11/06/2024 Scan MG HEALTH INFO SRVCS Scanned, Doc Med Group 11/06/2024 Patient Outreach [facility] Family Internal [facility] [address] [place] [address] Campos Sparrow CPhT Medication (Xifaxin Patient Assistance 2024) 11/03/2024 Scan MG HEALTH INFO SRVCS Scanned, Doc Med Group Procedure (SCAN) 10/30/2024 Patient Outreach [facility] Family & Internal [facility] [address] [place] [address] Kerri Brewer RN TCM (U 10/23-10/28) 10/28/2024 Scan MG HEALTH INFO SRVCS Scanned, Doc Med Group 10/28/2024 Telephone [facility] Internal [facility] [address] [place] [address] Moses Conn MD Referral 10/27/2024 Scan MG HEALTH INFO SRVCS Scanned, Doc Med Group 10/27/2024 Patient Outreach [facility] Internal [address] [phone] Kerri Brewer RN Hospital Follow Up (SLU admission notification) 10/21/2024 Scan [facility] HEALTH INFO SRVCS Scanned, Doc Med Group Ultrasound (SCAN) 10/21/[address] [phone] Moses Conn MD Referral 10/17/2024 Scan MG HEALTH INFO SRVCS Scanned, Doc Med Group 10/15/2024 Scan [facility] HEALTH INFO SRVCS Scanned, Doc Med Group 10/14/2024 Scan [facility] INFO SRVCS Scanned, Doc [facility] Procedure (SCAN) 10/14/[address] [phone] Moses Conn MD Forms 10/14/2024 Patient Outreach [address] [phone] Cristy Brantley RN Care Management 10/09/2024 10:40 AM SPEARER Office Visit [address] [phone] Moses Conn MD TCM ([facility] f/u 09/30); Diabetes (Patient report BS are elevated. ) 10/09/2024 Travel 10/07/2024 Scan MG HEALTH INFO SRVCS Scanned, Doc Med Group Procedure (SCAN); Lab (SCAN) 10/01/[address] [address] Moses Conn MD Referral 10/01/2024 Patient Outreach [address] [phone] Cristy Brantley RN TCM ([facility] 09/28-09/30) 09/30/2024 Scan MG HEALTH INFO SRVCS Scanned, Doc Med Group 09/29/2024 Patient Outreach [facility] Family & Internal Medicine [address] [phone] Cristy Brantley RN Hospital Follow Up (Tcm #1) 09/28/2024 Scan MG HEALTH INFO SRVCS Scanned, Doc Med Group 09/24/2024 Telephone [facility] Family & Internal Medicine [address] [phone] Moses Conn MD Medication from Last 3 Months Immunizations Name Administration [...] from your doctor or pharmacy? Often 08/14/2024 [facility] Utilities Answer Date Recorded In the past 12 months has e [employer], [employer], or water [employer] threatened to shut off services in your [...] Recorded Patient Health Questionnaire-2 Score 0 12/16/2024 [facility] of Occupat ional Health - Occupational Stress [...] any time in the past 12 m [facility], were you homeless or living in a alf (including now)? No 08/14/2024 Sex and Gender Information Value Date Recorded Sex Assigned at Male 02/25/2019 9:28 AM CDT Legal Sex Male 10:23 PM CDT Gender Identity Male 02/25/2019 9:28 AM CDT Sexual Orientation Straight 02/25/2019 9: 28 AM CDT Last Filed Vital Signs Vital Sign Reading Time Taken Comments Blood Pressure 127/80 12/23/2024 9:34 AM SPEARER Pulse 80 12/23/2024 9:34 AM SPEARER Temperature 36.7 C (98 F) 12/23/2024 9:34 AM SPEARER Respiratory Rate 18 12/23/2024 9:34 AM SPEARER Oxygen Saturation 99% 12/22/2024 10:16 AM SPEARER Inhaled Oxygen Concentration - - Weight 54.7 kg (120 lb 8 oz) 12/16/2024 2:51 PM SPEARER Height 162.6 cm (5' 4 ) 12/16/2024 2:51 PM SPEARER Body Mass Index 20.68 12/16/2024 2:51 PM SPEARER Plan of Treatment Upcoming Encounters Date Type Department Care Team (Late st Contact Info) Description 12/25/2024 2:15 PM SPEARER Home Care Visit [address] [address] Marshall Anguiano, [employer] [address] [place], [place] [phone] 12/26/2024 10:00 AM SPEARER Home Care Visit [address] [address] Xavi Dave LPN 12/26/2024 10:45 AM SPEARER Home Care Visit [address] [address] Alma Gunderson, OT [address] [place], [place] [address] 12/29/2024 10:00 AM SPEARER Home Care Visit [address] [address] Marshall Anguiano, [employer] [address] [place], [place] [address] 12/31/2024 9:00 AM SPEARER Home Care Visit [address] [address] Cindy Houser, PT [address] [place], [place] [address] 01/01/2025 11:20 AM SPEARER Office Visit [facility] Family & Internal Medicine - [place] [address] [place] [address] Moses Conn MD [facility] [place] [address] 01/12/2025 1:00 PM CDT Office Visit Josué JiménezO'Fall on [facility] [place] [address] [place] [address] Yana Alfonso MD [facility]. [address] [place] [address] Health Maintenance Due Date Last Done Comments [...] 07/07, 07/31/2022, Additional history exists PHQ-2 (Physician [place]) Completed 12/16/2024 Meningococcal B Vaccine Aged Out [...] ADLs independently Lifestyle On track(2024 12:07 PM SPEARER) No Cristy Brantley RN Consistently take medications as Prescribed Lifestyle On track(2024 12:07 PM SPEARER) No Cristy Brantley RN Establish Plan for Symptom Monitoring Lifestyle On track(2024 12:07 PM SPEARER) No Cristy Brantley RN Note: Interventions for [...] Symptom Monitoring Lifestyle On track(2024 12:07 PM SPEARER) No Cristy Brantley, RN Note: Hepatic encephalopathy goals: Patient and spouse will be aware of symptoms such as confusion, stomach distention to report. Patient and spouse will understand importance of lactulose. Procedures Procedure Name Priority Date/Time Associated Diagnosis Comments CBC W/DIFF AUTOMATED Routine 12/16/2024 3:37 PM SPEARER Other cirrhosis of liver (CMS/HCC HHS/HCC) Anemia, unspecified type COLLECTION VENOUS BLOOD VENIPUNCTURE Routine 12/16/2024 2:40 PM SPEARER Other cirrhosis of liver (CMS/HCC HHS/HCC) COMPREHENSIVE METABOLIC PANEL Routine 12/16/2024 2:40 PM SPEARER Other cirrhosis of liver (CMS/HCC HHS/HCC) PROCEDURE [...] ORDER) 10/07/2024 PROCEDURE GENERIC (SCAN ORDER) 10/07/2024 HEMOGLOBIN, GLYCOSYLATED Routine 08/14/2024 4:13 PM CDT [...] (ABNORMAL) CBC W/DIFF AUTOMATED (12/16/2024 3:37 PM SPEARER) Pathologist [facility] WBC 3.56(L) 4.00 - 10.80 x10'3/uL 12/16/2024 7:27 PM SPEARER [facility] RBC 2.40(L) 4.50 - 6.10 x10'6/uL 12/16/2024 7:27 PM SPEARER [facility] HGB 7.5(L) 13.0 - 18.0 G/DL 12/16/2024 7:27 PM SPEARER [facility] HCT 24.0(L) 37.0 - 52.0 % 12/16/2024 7:27 PM SPEARER [facility] MCV 100.0 78.0 - 100.0 FL 12/16/2024 7:27 PM SPEARER [facility] MCH 31.3(H) 27.0 - 31.0 PG 12/16/2024 7:27 PM [facility] MCHC 31.3(L) 33.0 - 36.0 G/DL 12/16/2024 7:27 PM [facility] RDW 17.2(H) 11.5 - 14.5 % 12/16/2024 7:27 PM [facility] PLT 153 150 - 350 x10'3/uL 12/16/2024 7:27 PM [facility] MPV 11.5(H) 7.4 - 10.4 FL 12/16/2024 7:27 PM [facility] DIFFERENTIAL TYPE AUTOMATED DIFFERENTIAL 12/16/2024 7:27 PM [facility] NEUTROPHILS % 78.7 % 12/16/2024 7:27 PM [facility] LYMPHOCYTES % 8.4 % 12/16/2024 7:27 PM [facility] MONOCYTES % 8.1 % 12/16/2024 7:27 PM [facility] EOSINOPHILS % 3.7 % 12/16/2024 7:27 PM [facility] BASOPHILS % 0.3 % 12/16/2024 7:27 PM [facility] IMMATURE GRANS % 0.8 % 12/16/2024 7:27 PM [facility] ABS. NEUTROPHILS 2.80 1.60 - 8.30 x10'3/uL 12/16/2024 7:27 PM [facility] ABS. LYMPHOCYTES 0.30(L) 0.80 - 4.70 x10'3/uL 12/16/2024 7:27 PM [facility] ABS. MONOCYTES 0.29 0.00 - 1.50 x10'3/uL 12/16/2024 7:27 PM [facility] ABS. EOSINOPHILS 0.13 0.00 - 0.40 x10'3/uL 12/16/2024 7:27 PM SPEARER [facility] ABS. BASOPHILS 0.01 0.00 - 0.20 x10'3/uL 12/16/2024 7:27 PM SPEARER [facility] ABS. IMMATURE GRANULOCYTES 0.03 0.00 - 0.03 x10'3/uL 12/16/2024 7:27 PM SPEARER [facility] 12/16/2024 3:37 PM SPEARER us Moses Conn MD LABORATORY Final Result [facility] [address] [place] [address], * (ABNORMAL) COMPREHENSIVE METABOLIC PANEL (12/16/2024 2:40 PM SPEARER) [facility] SODIUM S/P/B 136 136 - 145 MMOL/L 12/17/2024 12:11 PM [facility] POTASSIUM S/P/B 4.2 3.5 - 5.1 MMOL/L 12/17/2024 12:11 PM [facility] CHLORIDE S/P/B 105 98 - 107 MMOL/L 12/17/2024 12:11 PM [facility] CO2 21.9 21 - 32 MMOL/L 12/17/2024 12:11 PM [facility] GLUCOSE 352(H) 70 - 99 MG/DL 12/17/2024 12:11 PM [facility] BUN 23(H) 7 - 18 MG/DL 12/17/2024 12:11 PM [facility] CREATININE S/P/B 1.72(H) 0.70 - 1.30 MG/DL 12/17/2024 12:11 PM [facility] CALCIUM S/P/B 8.8 8.4 - 10.5 MG/DL 12/17/2024 12:11 PM [facility] BILIRUBIN TOTAL S/P/B 0.6 0.2 - 1.0 MG/DL 12/17/2024 12:11 PM [facility] ALKALINE PHOSPHATASE S/P/B 514(H) 45 - 115 U/L 12/17/2024 12:41 PM [facility] Comment:RESULTS CONFIRMED-TE ST REPEATED AST 68(H) 15 - 37 U/L 12/17/2024 12:11 PM [facility] ALT 97(H) 16 - 63 U/L 12/17/2024 12:11 PM [facility] TOTAL PROTEIN S/P/B 6.1(L) 6.4 - 8.2 G/DL 12/17/2024 12:11 PM [facility] ALBUMIN S/P/B 2.4(L) 3.4 - 5.0 G/DL 12/17/2024 12:11 PM [facility] ANION GAP 9.1 5 - 15 MMOL/L 12/17/2024 12:11 PM [facility] Comment:REFERENCE RANGE NOT ESTABLISHED OSMOLALITY (CALC) 300 MOSM/KG 025 12:11 PM [facility] Comment:REFERENCE RANGE NOT ESTABLISHED GFR ESTIMATE 40(L) >90 ML/MIN/1. 73 M2 12/17/2024 12:11 PM [facility] GFR NOTES GFR REFERENCE S: 12/17/2024 12:11 PM [facility] Comment: THE ESTIMATED GFR IS CALCULATED USING [...] FAILURE: <15 ml/min/1.73 m2 12/16/2024 2:40 PM SPEARER Result [facility] Moses Conn MD LABORATORY Final Result [facility] [address] [place] [address], * PROCEDURE GENERIC (SCAN ORDER) (12/09/2024) 12/09/2024 us Doc [facility] Scanned SCANNING Final Resu lt * OUTSIDE LAB (SCAN ORDER) (12/01/2024) Only the most recent of4 resultswithin the time period is included. 12/01/2024 Result [facility] [email or web address] [facility] Group Scanned SCANNING Final Resu lt * ULTRASOUND GENERIC (SCAN ORDER) (11/25/2024) Only the most recent of2 resultswithin the time period is included. Anatomical Region Laterality Modality Other 11/25/2024 [email or web address] Doc Med Group Scanned SCANNING Final Resu lt * OUTSIDE PT/INR (SCAN ORDER) (11/18/2024) Only the most recent of2 resultswithin the time period is included. 11/18/2024 us [facility] Scanned SCANNING Final Resu lt * PROCEDURE GENERIC (SCAN ORDER) (11/18/2024) 11/18/2024 us Doc [facility] Scanned SCANNING Final Resu lt * PROCEDURE GENERIC (SCAN ORDER) (11/03/2024) 11/03/2024 Result [facility] Group Scanned SCANNING Final Resu lt * PROCEDURE GENERIC (SCAN ORDER) (10/14/2024) 10/14/2024 [facility] Group Scanned SCANNING Final Resu lt * PROCEDURE GENERIC (SCAN ORDER) (10/07/2024) 10/07/2024 Result [facility] Group Scanned SCANNING Final Resu lt * LIPID PANEL (08/06/2024 11:00 AM CDT) CHOLESTEROL 117 <200 MG/DL 08/06/2024 4:50 PM CDT [facility] TRIGLYCERIDES 40 <150 MG/DL 08/06/2024 4:50 PM CDT [facility] HDL 57 >40 MG/DL 08/06/2024 4:50 PM CDT [facility] LDL-C 52 <100 MG/DL 08/06/2024 4:50 PM CDT [facility] VLDL CALCULATION 8 5 - 28 MG/DL 08/06/2024 4:50 PM CDT [facility] CHOL/HDL RATIO 2.1 0.0 - 4.0 08/06/2024 4:50 PM CDT [facility] LDL/HDL 0.9 0.41 - 2.13 08/06/2024 4:50 PM CDT [facility] NON HDL CHOLESTEROL 60 <140 MG/DL 08/06/2024 4:50 PM CDT [facility] 08/06/2024 11:0 0 AM CDT Moses Conn MD LABORATORY Final Result -[facility] [address] [place] [address], [place] [phone] * DIABETIC RETINOPATHY EXAM (POSITIVE) (02/05/2024) us [...] with a HCV Nucleic Acid Amplification test ([id number]). 06/28/2021 8:41 AM CDT 06/28/2021 Narrative [facility] - 06/29/2021 8:15 AM CDT Performed at: [facility] [id number] [employer] Patternmaker: Preston Valdez PhD, Phone: [phone] Moses Conn MD LABORATORY Final Result Performing Organization Address City/[facility] Co de Phone Number [facility] [address] [place] [address] [facility] 1 * COLOGUARD (SCAN) (10/25/2020) COLOGUARD NEGATIVE [facility] Stool specimen (specimen) 10/25/2020 us Documents Scanned SCANNING Final Result [facility] [...] 9:43 AM 08/13/2024 2:26 PM Care Teams Car Blocker Relationship Specialty Start Date End Date Moses Conn MD [address] [place] [id number] PCP - General INTERNAL MEDICINE 11/29/18 Moses Conn MD [address] [place] [id number] PCP - Hospice Attending 12/17/24 Cristy Brantley, OLAF [address] [place] [address] Senior Mechanical Technician (Ambulatory) REGISTERED NURSE 09/15/24
--- OUTSIDE RECORDS SUMMARY | 2024-12-25 09:04 | XMS_ITS | Encounter Summary ---
Author Organization [facility] Healthcare Address [address] [place] [address] Care Team Providers Care Bottom Brusher Name Role Phone Moses Conn MD Primary Care Provider Anjelica Fish MD Unavailable [phone] Encounter Details Date Type Department Care Team (Late Contact Info) Description 12/24/2024 Telephone [facility] Medical Group Cardiology [address] [facility] [address] [address] Pablito Hunt MD [facility] [address] [address] Social History Tobacco Use Types Packs/Day Years Used Date Smoking Tobacco: Former Cigarettes 2 25 1 976 - 2000 Cigars Smokeless Tobacco: Never Alcohol Use Standard Drinks/Week Comments Not Currently 0 (1 standard drink = 0.6 oz pur e alcohol) occasionally [facility] Utilities Answer Date Recorded In the past 12 months has [employer] electric, gas, oil, or water company threatened [...] week 09/25/2023 How often do you attend [facility] or [facility] services? Never 09/25/2023 Do you belong to any clubs o r organizations such as uatsdin groups, unions, fraternal or athletic groups, or [...] place to sleep or slept in a chcf (including now)? No 09/25/2023 Personal Safety Answer Date Recorded Have you ever been in or are you currently in a harmful physical or emotional relationship or is someone making you feel afraid or unsafe? Denies 09/25/2023 Sex and Gender Information Value Date Recorded Sex Assigned at Not on file Legal Sex Male 7:49 PM OCCUPATIONAL HEALTH NURSE Gender Identity Not on file Sexual Orientation Not on file Occupation Industry Job Start Date Job End Date Retired Not on file Not on file Not on file documented as of this encounter Miscellaneous Notes * Telephone Encounter - Elisa Stanton RN - 12/24/2024 4:04 PM CST Resent referral today to fax number given. PATIONAL HEALTH NURSE * Telephone Encounter - Radha Stern - 12/24/2024 12:01 PM CST The patients called and says that they need a referral sent over to Dr Alfonso's office. Patient has an appointment scheduled but they need the referral still. Roderick [phone]- Attn: Marybeth Soliman [phone] Please advise. PATIONAL HEALTH NURSE documented in this encounter Plan of Treatment Not on file documented as of this encounter Visit Diagnoses Not on filedocumented in this encounter Care Teams Bottom Brusher Relationship Specialty Start Date End Date Moses Conn MD [address] [place] [address] PCP - General 10/08/20 Anjelica Fish MD [address] [facility] [place] [address] Bilingual Instructor Cardiovascular Disease 05/16/21 documented as of this encounter
--- OUTSIDE RECORDS SUMMARY | 2024-12-25 09:04 | XMS_ITS | Encounter Summary ---
Author Organization [facility] Address [address] [place] [address] Care Team Providers Care Communications Equipment Supervisor Name Role Phone Moses Conn MD Primary Care Provider [phone] Encounter Details Date Type Department Care Team (Late Contact Info) Description 12/24/2024 External Device Data [facility] ABSTRACTION Provider, Abstract [...] (Late Contact Info) Description 01/01/2025 4:30 PM STENCILER Telephone Check Up [facility] Oncology and Hematology - [place] [address] [facility] [address] [address] Anish Perez MD [address] [facility] [address] [place] [address] documented as of this encounter Visit Diagnoses Not on filedocumented in this encounter Care Teams Communications Equipment Supervisor Relationship Specialty Start Date End Date Moses Conn MD [address] [place] [phone] PCP - General Internal Medicine 04/12/22 documented as of this encounter
--- OUTSIDE RECORDS SUMMARY | 2024-12-25 09:04 | XMS_ITS | Clinical Summary ---
Author Organization [facility] Address [address] [address] Care Team Providers Care Log Check Scaler Name Role Phone Moses Conn MD Primary Care Provider [phone] Source Comments [facility],non-owned Affiliates and Associated Physician Practices is amultiple site organization consisting of ambulatory clinics and hospital sitesin [place], [place], [place] and [place]. This disclosure is being madepursuant to the Care Everywhere program and may not contain all information available regarding this patient. Last updated 18.[facility] Allergies Active Allergy Reactions Criticality Noted Date [...] fluticasone propionate (Flonase) 50 MCG/ACT nasal spray [place] 1 (one) spray into the nose once [...] Department Care Team Description 12/09/2024 Transitional Care [facility] [address] [place] [phone] Lesly Acosta, OLAF Transitions Of Care 12/03/2024 1:55 PM EMS DIRECTOR - 12/08/2024 2:44 PM EMS DIRECTOR Hospital Encounter [facility] 7S ACUTE [address] [place] [phone] Julio Torres MD Demars, MD Tai Carroll Alex S, MD Shmais, Manar A, MD Qureshi, Kamran, MD Emergency Medicine Discharge Disposition: Home Health Care [facility] 12/03/2024 Travel 12/02/2024 Telephone [facility] [place] [address] [place] [phone] Luana Alejo, OLAF Cirrhosis (decompensated) 11/14/2024 Transitional Care [facility] [address] [place] [phone] Lesly Acosta, OLAF Transitions Of Care 11/06/2024 2:03 PM EMS DIRECTOR - 11/13/2024 4:50 PM EMS DIRECTOR Hospital Encounter [facility] [address]S ACUTE [address] [place] [phone] Homer Hallamn MD Befeler, Alex S, MD Elbeshbeshy, Sly Morrissey MD Gastroenterology Discharge Disposition: Home or Self Care 11/06/2024 10:00 AM EMS DIRECTOR Office Visit [facility] [address] [place] [phone] Rigoberto Mcclain MD Decompensated hepatic cirrhosis (HCC) (Primary Dx); Portal hypertension (HCC); Other ascites; Hepatic encephalopathy (HCC) 11/06/2024 Travel 10/31/2024 9:30 AM EMS DIRECTOR - 10/31/2024 11:00 AM EMS DIRECTOR Surgery [facility] ENDOSCOPY [address] [place] [phone] Procedure, Nursing G_I GASTRIC MOTILITY STUDY 10/31/2024 9:23 AM EMS DIRECTOR - 10/31/2024 10:20 AM EMS DIRECTOR Hospital Encounter [facility] LAILA OP [address] [place] [phone] Didier Lei MD Surgery General Discharge Disposition: Home or Self Care 10/31/2024 Travel 10/23/2024 2:22 PM EMS DIRECTOR - 10/28/2024 3:15 PM EMS DIRECTOR Hospital Encounter [facility] 7N ACUTE [address] [place] [phone] Muna Waller MD Agbim, Uchenna A, MD Qureshi, Kamran, MD Gastroenterology Discharge Disposition: Home or Self Care 10/23/2024 Travel 10/23/2024 Telephone [facility] - Nephrology [address] [place] [phone] Rigoberto Mcclain MD Follow-up; Med Question 09/28/2024 11:35 AM EMS DIRECTOR - 09/30/2024 12:45 PM EMS DIRECTOR Hospital Encounter [facility] 7S ACUTE [address] [place] [phone] Carlos Mcclain DO Farmer, Adam D, MD SynFrancy MD Gastroenterology Discharge Disposition: Home or Self Care 09/28/2024 Travel 09/24/2024 Transitional Care [facility] [address] [place] [phone] Lesly Acosta RN Transitions Of Care from [...] and heating? Not hard at all 11/08/2024 [facility] - [...] any time in the past 12 m [facility], were you homeless or living in a retirement (including now)? No 11/08/2024 Sex and Gender Information Value Date Recorded Sex Assigned at Not on file Gender Identity Not on file Sexual Orientation Not on file Last Filed Vital Signs Vital Sign Reading Time Taken Comments Blood Pressure 135/61 12/08/2024 12:00 PM EMS DIRECTOR Pulse 75 12/08/2024 12:00 PM EMS DIRECTOR Temperature 36.5 C (97.7 F) 12/08/2024 12:00 PM EMS DIRECTOR Respiratory Rate 17 12/08/2024 12:00 PM EMS DIRECTOR Oxygen Saturation 98% 12/08/2024 12:00 PM EMS DIRECTOR Inhaled Oxygen Concentration - - Weight 48 kg (105 lb 12.8 oz) 12/05/2024 6:16 PM EMS DIRECTOR Height 163 cm (5' 4.17 ) 12/04/2024 8:31 PM EMS DIRECTOR Body Mass Index 18.06 12/04/2024 8:31 PM EMS DIRECTOR Plan of Treatment Upcoming Encounters Date Type Department Care Team (Late st Contact Info) Description 01/27/2025 2:00 PM CDT Office Visit [facility] [address] [facility] ([place], [place]), [facility] [place] [phone] Rigoberto Mcclain MD [address] [place] [phone] Health Maintenance Due Date Last Done Comments [...] Management General On track( 025 10:45 AM EMS DIRECTOR) Kandis Dejesus, RN Note: Expected end date: ongoing Interventions: Take all medications as prescribed Let your doctor know right away about any changes in your medications Make sure to request a refill of your medication at least one week prior to your last dose Procedures Procedure Name Priority Date/Time Associated Diagnosis Comments GLUCOSE - POINT OF CARE Routine 12/08/2024 12:03 PM EMS DIRECTOR GLUCOSE - POINT OF CARE Routine 12/08/2024 7:56 AM EMS DIRECTOR PHOSPHORUS BLOOD Routine 12/08/2024 5:06 AM EMS DIRECTOR MAGNESIUM BLOOD Routine 12/08/2024 5:06 AM EMS DIRECTOR COMPREHENSIVE METABOLIC PANEL AM Draw 12/08/2024 5:06 AM EMS DIRECTOR CBC W AUTO DIFFERENTIAL AM Draw 12/08/2024 5:06 AM EMS DIRECTOR GLUCOSE - POINT OF CARE Routine 12/08/2024 4:51 AM EMS DIRECTOR GLUCOSE - POINT OF CARE Routine 12/07/2024 11:59 PM EMS DIRECTOR GLUCOSE - POINT OF CARE Routine 12/07/2024 8:41 PM EMS DIRECTOR GLUCOSE - POINT OF CARE Routine 12/07/2024 4:34 PM EMS DIRECTOR GLUCOSE - POINT OF CARE Routine 12/07/2024 11:56 AM EMS DIRECTOR GLUCOSE - POINT OF CARE Routine 12/07/2024 8:40 AM EMS DIRECTOR PHOSPHORUS BLOOD Routine 12/07/2024 5:15 AM EMS DIRECTOR MAGNESIUM BLOOD Routine 12/07/2024 5:15 AM EMS DIRECTOR COMPREHENSIVE METABOLIC PANEL AM Draw 12/07/2024 5:15 AM EMS DIRECTOR CBC W AUTO DIFFERENTIAL AM Draw 12/07/2024 5:15 AM EMS DIRECTOR GLUCOSE - POINT OF CARE Routine 12/07/2024 5:09 AM EMS DIRECTOR GLUCOSE - POINT OF CARE Routine 12/06/2024 11:48 PM EMS DIRECTOR GLUCOSE - POINT OF CARE Routine 12/06/2024 7:57 PM EMS DIRECTOR GLUCOSE - POINT OF CARE Routine 12/06/2024 4:45 PM EMS DIRECTOR GLUCOSE - POINT OF CARE Routine 12/06/2024 12:29 PM EMS DIRECTOR GLUCOSE - POINT OF CARE Routine 12/06/2024 8:17 AM EMS DIRECTOR PHOSPHORUS BLOOD Routine 12/06/2024 5:39 AM EMS DIRECTOR MAGNESIUM BLOOD Routine 12/06/2024 5:39 AM EMS DIRECTOR COMPREHENSIVE METABOLIC PANEL AM Draw 12/06/2024 5:39 AM EMS DIRECTOR CBC W AUTO DIFFERENTIAL AM Draw 12/06/2024 5:39 AM EMS DIRECTOR INSULIN FREE + TOTAL Routine 12/06/2024 5:39 AM EMS DIRECTOR INSULIN LIKE GROWTH FACTOR 2 Routine 12/06/2024 5:39 AM EMS DIRECTOR IGF BINDING PROTEIN 1 Routine 12/06/2024 5:39 AM EMS DIRECTOR HYDROXYBUTYRATE BETA Routine 12/06/2024 5:39 AM EMS DIRECTOR CORTISOL BLOOD AM Timed 12/06/2024 5:3 9 AM EMS DIRECTOR PROINSULIN Routine 12/06/2024 5:39 AM EMS DIRECTOR C-PEPTIDE Routine 12/06/2024 5:39 AM EMS DIRECTOR GLUCOSE - POINT OF CARE Routine 12/06/2024 4:14 AM EMS DIRECTOR GLUCOSE - POINT OF CARE Routine 12/05/2024 11:51 PM EMS DIRECTOR GLUCOSE - POINT OF CARE Routine 12/05/2024 8:38 PM EMS DIRECTOR GLUCOSE - POINT OF CARE Routine 12/05/2024 3:59 PM EMS DIRECTOR GLUCOSE - POINT OF CARE Routine 12/05/2024 12:17 PM EMS DIRECTOR C-PEPTIDE Routine 12/05/2024 10:08 AM EMS DIRECTOR PROINSULIN AM Draw 12/05/2024 10:07 AM EMS DIRECTOR INSULIN FREE + TOTAL AM Draw 12/05/2024 10:07 AM EMS DIRECTOR GLUCOSE - POINT OF CARE Routine 12/05/2024 8:20 AM EMS DIRECTOR GLUCOSE - POINT OF CARE Routine 12/05/2024 7:48 AM EMS DIRECTOR GLUCOSE - POINT OF CARE Routine 12/05/2024 7:38 AM EMS DIRECTOR PHOSPHORUS BLOOD Routine 12/05/2024 6:32 AM EMS DIRECTOR MAGNESIUM BLOOD Routine 12/05/2024 6:32 AM EMS DIRECTOR COMPREHENSIVE METABOLIC PANEL AM Draw 12/05/2024 6:32 AM EMS DIRECTOR CBC W AUTO DIFFERENTIAL AM Draw 12/05/2024 6:32 AM EMS DIRECTOR GLUCOSE - POINT OF CARE Routine 12/05/2024 3:51 AM EMS DIRECTOR GLUCOSE - POINT OF CARE Routine 12/05/2024 3:39 AM EMS DIRECTOR GLUCOSE - POINT OF CARE Routine 12/05/2024 3:32 AM EMS DIRECTOR GLUCOSE - POINT OF CARE Routine 12/05/2024 3:27 AM EMS DIRECTOR GLUCOSE - POINT OF CARE Routine 12/05/2024 3:17 AM EMS DIRECTOR GLUCOSE - POINT OF CARE Routine 12/05/2024 3:05 AM EMS DIRECTOR GLUCOSE - POINT OF CARE Routine 12/04/2024 7:42 PM EMS DIRECTOR GLUCOSE - POINT OF CARE Routine 12/04/2024 6:53 PM EMS DIRECTOR GLUCOSE - POINT OF CARE Routine 12/04/2024 6:30 PM EMS DIRECTOR GLUCOSE - POINT OF CARE Routine 12/04/2024 6:09 PM EMS DIRECTOR GLUCOSE - POINT OF CARE Routine 12/04/2024 5:46 PM EMS DIRECTOR US ABDOMEN LIMITED STAT 12/04/2024 11 :40 AM EMS DIRECTOR Hepatic cirrhosis, unspecified hepatic cirrhosis type, unspecified whether ascites present (HCC) CARDIAC EKG ORDER 12/04/2024 11: 29 AM EMS DIRECTOR UREA NITROGEN URINE RANDOM STAT 12/04/2024 9:39 AM EMS DIRECTOR FERRITIN MICHELLE 12/04/2024 9:38 AM EMS DIRECTOR VITAMIN B12 MICHELLE 12/04/2024 9:38 AM EMS DIRECTOR FOLATE MICHELLE 12/04/2024 9:38 AM EMS DIRECTOR IRON + TRANSFERRIN PANEL STAT 12/04/2024 9:38 AM EMS DIRECTOR GLUCOSE - POINT OF CARE Routine 12/04/2024 7:48 AM EMS DIRECTOR GLUCOSE - POINT OF CARE Routine 12/04/2024 5:46 AM EMS DIRECTOR GLUCOSE - POINT OF CARE Routine 12/04/2024 4:50 AM EMS DIRECTOR PHOSPHORUS BLOOD STAT 12/04/2024 4:33 AM EMS DIRECTOR MAGNESIUM BLOOD STAT 12/04/2024 4:33 AM EMS DIRECTOR COMPREHENSIVE METABOLIC PANEL STAT 12/04/2024 4:33 AM EMS DIRECTOR CBC W AUTO DIFFERENTIAL STAT 12/04/2024 4:25 AM EMS DIRECTOR GLUCOSE - POINT OF CARE Routine 12/04/2024 4:20 AM EMS DIRECTOR GLUCOSE - POINT OF CARE Routine 12/04/2024 2:29 AM EMS DIRECTOR GLUCOSE - POINT OF CARE Routine 12/04/2024 12:51 AM EMS DIRECTOR CREATININE URINE RANDOM STAT 12/04/2024 12:17 AM EMS DIRECTOR LYTES (NA K CL) URINE RANDOM PANEL STAT 12/04/2024 12:17 AM EMS DIRECTOR URINALYSIS REFLEX MICROSCOPIC REFLEX CULTURE STAT 12/04/2024 12:17 AM EMS DIRECTOR GLUCOSE - POINT OF CARE Routine 12/03/2024 11:09 PM EMS DIRECTOR GLUCOSE - POINT OF CARE Routine 12/03/2024 8:33 PM EMS DIRECTOR GLUCOSE - POINT OF CARE Routine 12/03/2024 8:27 PM EMS DIRECTOR CULTURE BLOOD Timed 12/03/2024 6:17 PM EMS DIRECTOR CULTURE BLOOD Timed 12/03/2024 6:[address] HEAD WO CONTRAST STAT 12/03/2024 4 :56 PM EMS DIRECTOR Altered mental status, unspecified altered mental status type Hepatic cirrhosis, unspecified hepatic cirrhosis type, unspecified whether ascites present (HCC) TROPONIN-I HIGH SENSITIVE REFLEX 1HOUR Timed 12/03/2024 3:26 PM EMS DIRECTOR SARS-COV-2 (COVID-19) FLU A/B RSV PCR RAPID STAT 12/03/2024 12:36 PM EMS DIRECTOR PTT [facility] STAT 12/03/2024 12:35 PM EMS DIRECTOR PT-INR [facility] STAT 12/03/2024 12:35 PM EMS DIRECTOR AMMONIA STAT 12/03/2024 12:35 PM EMS DIRECTOR TROPONIN-I HIGH SENSITIVE BASELINE + 1HR STAT 12/03/2024 12:35 PM EMS DIRECTOR MAGNESIUM BLOOD STAT 12/03/2024 12:35 PM EMS DIRECTOR COMPREHENSIVE METABOLIC PANEL STAT 12/03/2024 12:35 PM EMS DIRECTOR CBC W AUTO DIFFERENTIAL STAT 12/03/2024 12:35 PM EMS DIRECTOR EKG 12-LEAD STAT 12/03/2024 12:21 PM EMS DIRECTOR Altered mental status, unspecified altered mental status type XR CHEST 2VW STAT 12/03/2024 11:24 AM EMS DIRECTOR Altered mental status, unspecified altered mental status type GLUCOSE - POINT OF CARE Routine 11/13/2024 3:43 PM EMS DIRECTOR GLUCOSE - POINT OF CARE Routine 11/13/2024 10:46 AM EMS DIRECTOR GLUCOSE - POINT OF CARE Routine 11/13/2024 8:48 AM EMS DIRECTOR CBC W AUTO DIFFERENTIAL Routine 11/13/2024 7:57 AM EMS DIRECTOR MAGNESIUM BLOOD Routine 11/13/2024 7:57 AM EMS DIRECTOR PHOSPHORUS BLOOD Routine 11/13/2024 7:57 AM EMS DIRECTOR COMPREHENSIVE METABOLIC PANEL Routine 11/13/2024 7:57 AM EMS DIRECTOR GLUCOSE - POINT OF CARE Routine 11/12/2024 8:31 PM EMS DIRECTOR GLUCOSE - POINT OF CARE Routine 11/12/2024 3:43 PM EMS DIRECTOR GLUCOSE - POINT OF CARE Routine 11/12/2024 10:56 AM EMS DIRECTOR CBC W AUTO DIFFERENTIAL Routine 11/12/2024 7:11 AM EMS DIRECTOR MAGNESIUM BLOOD Routine 11/12/2024 7:11 AM EMS DIRECTOR PHOSPHORUS BLOOD Routine 11/12/2024 7:11 AM EMS DIRECTOR COMPREHENSIVE METABOLIC PANEL Routine 11/12/2024 7:11 AM EMS DIRECTOR GLUCOSE - POINT OF CARE Routine 11/12/2024 6:37 AM EMS DIRECTOR GLUCOSE - POINT OF CARE Routine 11/11/2024 8:50 PM EMS DIRECTOR GLUCOSE - POINT OF CARE Routine 11/11/2024 3:10 PM EMS DIRECTOR CARDIAC EKG ORDER 11/11/2024 12: 23 PM EMS DIRECTOR GLUCOSE - POINT OF CARE Routine 11/11/2024 11:44 AM EMS DIRECTOR CBC W AUTO DIFFERENTIAL Routine 11/11/2024 9:07 AM EMS DIRECTOR MAGNESIUM BLOOD Routine 11/11/2024 9:07 AM EMS DIRECTOR PHOSPHORUS BLOOD Routine 11/11/2024 9:07 AM EMS DIRECTOR COMPREHENSIVE METABOLIC PANEL Routine 11/11/2024 9:07 AM EMS DIRECTOR GLUCOSE - POINT OF CARE Routine 11/11/2024 6:56 AM EMS DIRECTOR GLUCOSE - POINT OF CARE Routine 11/10/2024 10:52 PM EMS DIRECTOR GLUCOSE - POINT OF CARE Routine 11/10/2024 4:39 PM EMS DIRECTOR GLUCOSE - POINT OF CARE Routine 11/10/2024 12:25 PM EMS DIRECTOR GLUCOSE - POINT OF CARE Routine 11/10/2024 6:59 AM EMS DIRECTOR CBC W AUTO DIFFERENTIAL Routine 11/10/2024 6:23 AM EMS DIRECTOR MAGNESIUM BLOOD Routine 11/10/2024 6:23 AM EMS DIRECTOR PHOSPHORUS BLOOD Routine 11/10/2024 6:23 AM EMS DIRECTOR COMPREHENSIVE METABOLIC PANEL Routine 11/10/2024 6:23 AM EMS DIRECTOR GLUCOSE - POINT OF CARE Routine 11/10/2024 1:23 AM EMS DIRECTOR GLUCOSE - POINT OF CARE Routine 11/09/2024 5:46 PM EMS DIRECTOR GLUCOSE - POINT OF CARE Routine 11/09/2024 4:10 PM EMS DIRECTOR GLUCOSE - POINT OF CARE Routine 11/09/2024 11:38 AM EMS DIRECTOR CBC W AUTO DIFFERENTIAL Routine 11/09/2024 7:18 AM EMS DIRECTOR MAGNESIUM BLOOD Routine 11/09/2024 7:18 AM EMS DIRECTOR PHOSPHORUS BLOOD Routine 11/09/2024 7:18 AM EMS DIRECTOR COMPREHENSIVE METABOLIC PANEL Routine 11/09/2024 7:18 AM EMS DIRECTOR GLUCOSE - POINT OF CARE Routine 11/09/2024 7:09 AM EMS DIRECTOR GLUCOSE - POINT OF CARE Routine 11/08/2024 9:45 PM EMS DIRECTOR CBC W AUTO DIFFERENTIAL Routine 11/08/2024 5:13 PM EMS DIRECTOR MAGNESIUM BLOOD Routine 11/08/2024 5:13 PM EMS DIRECTOR PHOSPHORUS BLOOD Routine 11/08/2024 5:13 PM EMS DIRECTOR COMPREHENSIVE METABOLIC PANEL Routine 11/08/2024 5:13 PM EMS DIRECTOR GLUCOSE - POINT OF CARE Routine 11/08/2024 4:27 PM EMS DIRECTOR GLUCOSE - POINT OF CARE Routine 11/08/2024 12:04 PM EMS DIRECTOR GLUCOSE - POINT OF CARE Routine 11/08/2024 6:50 AM EMS DIRECTOR GLUCOSE - POINT OF CARE Routine 11/07/2024 9:06 PM EMS DIRECTOR GLUCOSE - POINT OF CARE Routine 11/07/2024 5:02 PM EMS DIRECTOR GLUCOSE - POINT OF CARE Routine 11/07/2024 2:46 PM EMS DIRECTOR HIV-1 HIV-2 ANTIBODY + HIV P24 AG PANEL STAT 11/07/2024 4:27 AM EMS DIRECTOR TSH REFLEX FREE T4 STAT 11/07/2024 4: 27 AM EMS DIRECTOR VITAMIN B12 MICHELLE 11/07/2024 4:27 AM EMS DIRECTOR FOLATE MICHELLE 11/07/2024 4:27 AM EMS DIRECTOR VITAMIN B1 STAT 11/07/2024 4:27 AM EMS DIRECTOR SYPHILIS ANTIBODY CASCADING REFLEX STAT 11/07/2024 4:27 AM EMS DIRECTOR CBC W AUTO DIFFERENTIAL STAT 11/07/2024 4:27 AM EMS DIRECTOR MAGNESIUM BLOOD STAT 11/07/2024 4:27 AM EMS DIRECTOR PHOSPHORUS BLOOD STAT 11/07/2024 4:27 AM EMS DIRECTOR COMPREHENSIVE METABOLIC PANEL STAT 11/07/2024 4:27 AM EMS DIRECTOR GLUCOSE - POINT OF CARE Routine 11/07/2024 12:21 AM EMS DIRECTOR URINALYSIS W/MICROSCOPIC REFLEX TO CULTURE STAT 11/06/2024 11:44 PM EMS DIRECTOR URINE DRUG SCREEN IMMUNOASSAY STAT 11/06/2024 11:43 PM EMS DIRECTOR DIFFERENTIAL MANUAL FLUID STAT 11/06/2024 8:27 PM EMS DIRECTOR PROTEIN BODY FLUID STAT 11/06/2024 8: 27 PM EMS DIRECTOR GLUCOSE BODY FLUID STAT 11/06/2024 8: 27 PM EMS DIRECTOR CELL COUNT W DIFFERENTIAL FLUID STAT 11/06/2024 8:27 PM EMS DIRECTOR HYDROXYBUTYRATE BETA STAT 11/06/2024 8:26 PM EMS DIRECTOR CULTURE FLUID+GRAM STAIN STAT 11/06/2024 8:15 PM EMS DIRECTOR ED PARACENTESIS Routine 11/06/2024 6:28 PM EMS DIRECTOR Encephalopathy, unspecified type Decompensated cirrhosis (HCC) TROPONIN-I HIGH SENSITIVE REFLEX 1HOUR Timed 11/06/2024 4:33 PM EMS DIRECTOR SARS-COV-2 (COVID-19)+INFLU A+B PCR RAPID STAT 11/06/2024 3:40 PM EMS DIRECTOR TROPONIN-I HIGH SENSITIVE BASELINE + 1HR STAT 11/06/2024 3:30 PM EMS DIRECTOR AMMONIA STAT 11/06/2024 3:30 PM EMS DIRECTOR EKG 12-LEAD STAT 11/06/2024 3:17 PM EMS DIRECTOR Encephalopathy, unspecified type CT HEAD WO CONTRAST STAT 11/06/2024 2 :47 PM EMS DIRECTOR Encephalopathy, unspecified type XR CHEST 1VW PORTABLE STAT 11/06/2024 2:29 PM EMS DIRECTOR Encephalopathy, unspecified type LIPASE BLOOD STAT 11/06/2024 12:54 PM EMS DIRECTOR PT-INR [facility] STAT 11/06/2024 12:54 PM EMS DIRECTOR COMPREHENSIVE METABOLIC PANEL STAT 11/06/2024 12:54 PM EMS DIRECTOR CBC W AUTO DIFFERENTIAL STAT 11/06/2024 12:54 PM EMS DIRECTOR OR ESOPHAGUS MOTILITY STUDY 10/31/2024 9:25 AM EMS DIRECTOR Dysphagia, unspecified type GLUCOSE - POINT OF CARE Routine 10/28/2024 10:51 AM EMS DIRECTOR GLUCOSE - POINT OF CARE Routine 10/28/2024 8:12 AM EMS DIRECTOR PT-INR SL[facility] Routine 10/28/2024 6:14 AM EMS DIRECTOR CBC W/O DIFFERENTIAL Routine 10/28/2024 6:14 AM EMS DIRECTOR PHOSPHORUS BLOOD Routine 10/28/2024 6:14 AM EMS DIRECTOR MAGNESIUM BLOOD Routine 10/28/2024 6:14 AM EMS DIRECTOR COMPREHENSIVE METABOLIC PANEL Routine 10/28/2024 6:14 AM EMS DIRECTOR GLUCOSE - POINT OF CARE Routine 10/27/2024 8:28 PM EMS DIRECTOR GLUCOSE - POINT OF CARE Routine 10/27/2024 4:53 PM EMS DIRECTOR GLUCOSE - POINT OF CARE Routine 10/27/2024 12:17 PM EMS DIRECTOR PT-INR [facility] Routine 10/27/2024 8:18 AM EMS DIRECTOR CBC W/O DIFFERENTIAL Routine 10/27/2024 8:18 AM EMS DIRECTOR PHOSPHORUS BLOOD Routine 10/27/2024 8:18 AM EMS DIRECTOR MAGNESIUM BLOOD Routine 10/27/2024 8:18 AM EMS DIRECTOR COMPREHENSIVE METABOLIC PANEL Routine 10/27/2024 8:18 AM EMS DIRECTOR GLUCOSE - POINT OF CARE Routine 10/27/2024 8:01 AM EMS DIRECTOR GLUCOSE - POINT OF CARE Routine 10/26/2024 9:12 PM EMS DIRECTOR GLUCOSE - POINT OF CARE Routine 10/26/2024 9:14 AM EMS DIRECTOR VITAMIN D 1,25 DIHYDROXY Routine 10/26/2024 4:00 AM EMS DIRECTOR PT-INR [facility] Routine 10/26/2024 4:00 AM EMS DIRECTOR CBC W/O DIFFERENTIAL Routine 10/26/2024 4:00 AM EMS DIRECTOR PHOSPHORUS BLOOD Routine 10/26/2024 4:00 AM EMS DIRECTOR MAGNESIUM BLOOD Routine 10/26/2024 4:00 AM EMS DIRECTOR COMPREHENSIVE METABOLIC PANEL Routine 10/26/2024 4:00 AM EMS DIRECTOR GLUCOSE - POINT OF CARE Routine 10/25/2024 8:57 PM EMS DIRECTOR GLUCOSE - POINT OF CARE Routine 10/25/2024 4:22 PM EMS DIRECTOR GLUCOSE - POINT OF CARE Routine 10/25/2024 12:17 PM EMS DIRECTOR SODIUM URINE RANDOM Routine 10/25/2024 1 0:40 AM EMS DIRECTOR GLUCOSE - POINT OF CARE Routine 10/25/2024 8:59 AM EMS DIRECTOR US ABDOMEN LTD W COMP DOPPLER Routine 10/25/2024 8:20 AM EMS DIRECTOR Hepatic encephalopathy (HCC) PTH RELATED PEPTIDE AM Draw 10/25/2024 4 :54 AM EMS DIRECTOR LDH BLOOD Routine 10/25/2024 4:54 AM EMS DIRECTOR VITAMIN D 25-HYDROXY AM Draw 10/25/2024 4:54 AM EMS DIRECTOR PTH INTACT W/O CALCIUM AM Draw 4:54 AM EMS DIRECTOR PT-INR [facility] Routine 10/25/2024 4:54 AM EMS DIRECTOR CBC W/O DIFFERENTIAL Routine 10/25/2024 4:54 AM EMS DIRECTOR PHOSPHORUS BLOOD Routine 10/25/2024 4:54 AM EMS DIRECTOR MAGNESIUM BLOOD Routine 10/25/2024 4:54 AM EMS DIRECTOR COMPREHENSIVE METABOLIC PANEL Routine 10/25/2024 4:54 AM EMS DIRECTOR GLUCOSE - POINT OF CARE Routine 10/24/2024 9:28 PM EMS DIRECTOR GLUCOSE - POINT OF CARE Routine 10/24/2024 5:21 PM EMS DIRECTOR GLUCOSE - POINT OF CARE Routine 10/24/2024 12:31 PM EMS DIRECTOR CALCIUM IONIZED WHOLE BLOOD AM Draw 10/24/2024 8:47 AM EMS DIRECTOR HEMOGLOBIN A1C Routine 10/24/2024 8:47 AM EMS DIRECTOR PT-INR [facility] Routine 10/24/2024 8:47 AM EMS DIRECTOR CBC W/O DIFFERENTIAL Routine 10/24/2024 8:47 AM EMS DIRECTOR PHOSPHORUS BLOOD Routine 10/24/2024 8:47 AM EMS DIRECTOR MAGNESIUM BLOOD Routine 10/24/2024 8:47 AM EMS DIRECTOR COMPREHENSIVE METABOLIC PANEL Routine 10/24/2024 8:47 AM EMS DIRECTOR LACTIC ACID BLOOD AM Draw 10/24/2024 8:4 7 AM EMS DIRECTOR GLUCOSE - POINT OF CARE Routine 10/24/2024 8:29 AM EMS DIRECTOR GLUCOSE - POINT OF CARE Routine 10/24/2024 6:14 AM EMS DIRECTOR GLUCOSE - POINT OF CARE Routine 10/23/2024 11:50 PM EMS DIRECTOR GLUCOSE - POINT OF CARE Routine 10/23/2024 9:56 PM EMS DIRECTOR GLUCOSE - POINT OF CARE Routine 10/23/2024 9:[address] HEAD WO CONTRAST STAT 10/23/2024 9 :23 PM EMS DIRECTOR Hepatic encephalopathy (HCC) XR CHEST 1VW PORTABLE STAT 10/23/2024 8:09 PM EMS DIRECTOR Hepatic encephalopathy (HCC) BLOOD GASES REINA + COOX PANEL STAT 10/23/2024 6:25 PM EMS DIRECTOR CULTURE BLOOD Timed 10/23/2024 6:25 PM EMS DIRECTOR HYDROXYBUTYRATE BETA STAT 10/23/2024 6:11 PM EMS DIRECTOR LACTIC ACID BLOOD REFLEX TO REPEAT Timed STAT 10/23/2024 6:11 PM EMS DIRECTOR CULTURE BLOOD Timed 10/23/2024 6:11 PM EMS DIRECTOR DIFFERENTIAL MANUAL FLUID STAT 10/23/2024 5:27 PM EMS DIRECTOR CELL COUNT W DIFFERENTIAL FLUID STAT 10/23/2024 5:27 PM EMS DIRECTOR CULTURE FLUID+GRAM STAIN STAT 10/23/2024 5:27 PM EMS DIRECTOR ED PARACENTESIS Routine 10/23/2024 4:59 PM EMS DIRECTOR LACTIC ACID BLOOD REFLEX TO REPEAT Timed STAT 10/23/2024 3:09 PM EMS DIRECTOR URINALYSIS W/MICROSCOPIC REFLEX TO CULTURE STAT 10/23/2024 3:09 PM EMS DIRECTOR MAGNESIUM BLOOD STAT 10/23/2024 12:54 PM EMS DIRECTOR AMMONIA STAT 10/23/2024 12:54 PM EMS DIRECTOR LACTIC ACID BLOOD REFLEX TO REPEAT STAT 10/23/2024 12:54 PM EMS DIRECTOR PT-INR SL[facility] STAT 10/23/2024 12:54 PM EMS DIRECTOR COMPREHENSIVE METABOLIC PANEL STAT 10/23/2024 12:54 PM EMS DIRECTOR CBC W AUTO DIFFERENTIAL STAT 10/23/2024 12:54 PM EMS DIRECTOR GLUCOSE - POINT OF CARE Routine 09/30/2024 11:54 AM EMS DIRECTOR GLUCOSE - POINT OF CARE Routine 09/30/2024 7:54 AM EMS DIRECTOR COMPREHENSIVE METABOLIC PANEL AM Draw 09/30/2024 12:21 AM EMS DIRECTOR CBC W AUTO DIFFERENTIAL Routine 09/30/2024 12:21 AM EMS DIRECTOR MAGNESIUM BLOOD Routine 09/30/2024 12:21 AM EMS DIRECTOR PHOSPHORUS BLOOD Routine 09/30/2024 12:2 1 AM EMS DIRECTOR GLUCOSE - POINT OF CARE Routine 09/29/2024 9:06 PM EMS DIRECTOR GLUCOSE - POINT OF CARE Routine 09/29/2024 5:49 PM EMS DIRECTOR GLUCOSE - POINT OF CARE Routine 09/29/2024 11:56 AM EMS DIRECTOR GLUCOSE - POINT OF CARE Routine 09/29/2024 8:39 AM EMS DIRECTOR COMPREHENSIVE METABOLIC PANEL AM Draw 09/29/2024 6:03 AM EMS DIRECTOR CBC W AUTO DIFFERENTIAL Routine 09/29/2024 6:03 AM EMS DIRECTOR MAGNESIUM BLOOD Routine 09/29/2024 6:03 AM EMS DIRECTOR PHOSPHORUS BLOOD Routine 09/29/2024 6:03 AM EMS DIRECTOR GLUCOSE - POINT OF CARE Routine 09/28/2024 8:37 PM EMS DIRECTOR GLUCOSE - POINT OF CARE Routine 09/28/2024 6:42 PM EMS DIRECTOR URINALYSIS REFLEX MICROSCOPIC REFLEX CULTURE STAT 09/28/2024 4:48 PM EMS DIRECTOR AMMONIA STAT 09/28/2024 11:53 AM EMS DIRECTOR PT-INR [facility] STAT 09/28/2024 11:53 AM EMS DIRECTOR MAGNESIUM BLOOD STAT 09/28/2024 11:53 AM EMS DIRECTOR COMPREHENSIVE METABOLIC PANEL STAT 09/28/2024 11:53 AM EMS DIRECTOR CBC W AUTO DIFFERENTIAL STAT 09/28/2024 11:53 AM EMS DIRECTOR from Last 3 Months Results * (ABNORMAL) GLUCOSE - POINT OF CARE (12/08/2024 12:03 PM EMS DIRECTOR) Only the most recent of98 resultswithin the time period is included. Pathologist [facility] Glucose WB/POC 246(H) 70 - 99 mg/dL 12/08/2024 12:03 PM EMS DIRECTOR [facility] Specimen Type Cap Fingerstick 2024 12:03 PM EMS DIRECTOR [facility] Blood BLOOD SPECIMEN / Unknown 12/08/2024 12:03 PM EMS DIRECTOR 12/08/2024 12:03 PM EMS DIRECTOR Darek Teran MD LAB - POINT OF CARE ORDERABLES [facility] [address] [place] [id number], [facility] [phone] * (ABNORMAL) CBC W AUTO DIFFERENTIAL (12/08/2024 5:06 AM EMS DIRECTOR) Only the most recent of18 resultswithin the time period is included. Pathologist [facility] WBC 3.6(L) 4.0 - 10.7 x10E9/L 12/08/2024 5:38 AM EMS DIRECTOR [facility] RBC Count 2.38(L) 4.30 - 5.80 x10E12/L 12/08/2024 5:38 AM EMS DIRECTOR [facility] Hemoglobin 7.6(L) 13.3 - 17.5 g/dL 12/08/2024 5:38 AM [facility] Hematocrit 22.2(L) 38.7 - 51.1 % 12/08/2024 5:38 AM [facility] MCV 93.3 80.0 - 98.0 fL 12/08/2024 5:38 AM [facility] MCH 31.9 26.7 - 33.6 pg 12/08/2024 5:38 AM [facility] MCHC 34.2 31.7 - 36.3 g/dL 12/08/2024 5:38 AM [facility] RDW-CV 17.2(H) 11.3 - 14.8 % 12/08/2024 5:38 AM [facility] Platelet Count 121(L) 150 - 420 x10E9/L 12/08/2024 5:38 AM [facility] MPV 11.1 7.8 - 11.4 fL 12/08/2024 5:38 AM [facility] Neutrophil % 76.9(H) 41.0 - 74.0 % 12/08/2024 5:38 AM [facility] Lymphocyte % 7.2(L) 17.0 - 47.0 % 12/08/2024 5:38 AM [facility] Monocyte % 10.9 3.0 - 11.0 % 12/08/2024 5:38 AM [facility] Eosinophil % 3.9 0.0 - 7.0 % 12/08/2024 5:38 AM [facility] Basophil % 0.3 0.0 - 1.6 % 12/08/2024 5:38 AM [facility] Immature Granulocytes % 0.8 0.0 - 1.0 % 12/08/2024 5:38 AM [facility] Neutrophil Absolute 2.76 1.60 - 7.50 x10E9/L 12/08/2024 5:38 AM [facility] Lymphocyte Absolute 0.26(L) 1.00 - 4.40 x10E9/L 12/08/2024 5:38 AM [facility] Monocyte Absolute 0.39 0.15 - 1.00 x10E9/L 12/08/2024 5:38 AM [facility] Eosinophil Absolute 0.14 0.00 - 0.60 x10E9/L 12/08/2024 5:38 AM [facility] Basophil Absolute 0.01 0.00 - 0.13 x10E9/L 12/08/2024 5:38 AM [facility] Blood BLOOD SPECIMEN / Unknown Venipuncture / Unknown 12/08/2024 5:06 AM [facility] 12/08/2024 5:20 AM [facility] Juancarlos Lujan MD LAB - HEMATOLOGY ORD ERABLES [facility] [address] [place] [address], [facility] [phone] * (ABNORMAL) COMPREHENSIVE METABOLIC PANEL (12/08/2024 5:06 AM [facility]) Only the most recent of23 resultswithin the time period is included. BUN 27(H) 7 - 26 mg/dL 12/08/2024 5:56 AM [facility] Creatinine 1.28(H) 0.71 - 1.16 mg/dL 12/08/2024 5:56 AM [facility] Sodium 136 136 - 145 mmol/L 12/08/2024 5:56 AM [facility] Potassium 3.7 3.5 - 4.5 mmol/L 12/08/2024 5:56 AM [facility] Chloride 110(H) 98 - 107 mmol/L 12/08/2024 5:56 AM [facility] CO2 16(L) 22 - 29 mmol/L 12/08/2024 5:56 AM [facility] Glucose 171(H) 70 - 99 mg/dL 12/08/2024 5:56 AM [facility] Calcium 9.5 8.4 - 10.2 mg/dL 12/08/2024 5:56 AM [facility] Protein Total 5.9(L) 6.0 - 8.3 g/dL 12/08/2024 5:56 AM [facility] Albumin 2.7(L) 3.4 - 5.0 g/dL 12/08/2024 5:56 AM [facility] Bilirubin Total 0.9 0.2 - 1.2 mg/dL 12/08/2024 5:56 AM [facility] Alkaline Phosphatase 251(H) 40 - 150 U/L 12/08/2024 5:56 AM [facility] ALT 31 5 - 55 U/L 12/08/2024 5:56 AM [facility] AST 27 5 - 34 U/L 12/08/2024 5:56 AM [facility] Anion Gap 10 6 - 16 12/08/2024 5:56 AM [facility] BUN/Creatinine Ratio 21 7 - 23 12/08/2024 5:56 AM [facility] Osmolality Calculated 291 275 - 295 mOsm/kg 12/08/2024 5:56 AM [facility] Albumin/Globulin Ratio 0.8(L) 1.1 - 2.3 12/08/2024 5:56 AM [facility] eGFR by CKD-EPI 57(L) >=90 mL/min/1.7 3 m2 12/08/2024 5:56 AM [facility] Blood BLOOD SPECIMEN / Unknown Venipuncture / Unknown 12/08/2024 5:06 AM EMS DIRECTOR 12/08/2024 5:28 AM EMS DIRECTOR Juancarlos Lujan MD LAB - CHEMISTRY ORDUlysses RIVAS [address] [address], [facility] [phone] * (ABNORMAL) PHOSPHORUS BLOOD (12/08/2024 5:06 AM EMS DIRECTOR) Only the most recent of19 resultswithin the time period is included. Phosphorus 1.9(L) 2.8 - 5.1 mg/dL 12/08/2024 5:56 AM [facility] Blood BLOOD SPECIMEN / Unknown Venipuncture / Unknown 12/08/2024 5:06 AM EMS DIRECTOR 12/08/2024 5:28 AM EMS DIRECTOR Juancarlos Lujan MD LAB - CHEMISTRY JOHN PAUL RIVAS [facility] [address] [place] [address], [facility] [phone] * MAGNESIUM BLOOD (12/08/2024 5:06 AM EMS DIRECTOR) Only the most recent of22 resultswithin the time period is included. Magnesium 2.1 1.6 - 2.6 mg/dL 12/08/2024 5:56 AM EMS DIRECTOR [facility] Blood BLOOD SPECIMEN / Unknown Venipuncture / Unknown 12/08/2024 5:06 AM EMS DIRECTOR 12/08/2024 5:28 AM EMS DIRECTOR Juancarlos Lujan MD LAB - CHEMISTRY JOHN PAUL RIVAS Performing Organization Address City/[facility]/ZIP Co de Phone Number [address] [address], [facility] [phone] * IGF BINDING PROTEIN 1 (12/06/2024 5:39 AM EMS DIRECTOR) Pathologist [facility] IGF Binding Protein-1 19 5 - 34 ng/mL 12/17/2024 3:04 AM EMS DIRECTOR [employer] ([facility]) Comment: The limit of detection of this assay is 5 ng/mL. A proportion of normal patients will have results less than 5 ng/mL. This test was developed and its analytical performance characteristics have been determined by [facility]. It has not been cleared or approved by FDA. This assay has been validated pursuant to the CLIA regulations and is used for clinical purposes. Performed by: [facility] [address] [address] Catie Pope MD, PhD, JIMMY, Blood BLOOD SPECIMEN / Unknown Lab Venipuncture / Unknown 12/06/2024 5:39 AM EMS DIRECTOR 12/06/2024 5:58 AM EMS DIRECTOR Juancarlos Lujan MD LAB - CHEMISTRY JHON PAUL RIVAS [employer] [facility]) [address] [place] [address], [facility] * INSULIN LIKE GROWTH FACTOR 2 (12/06/2024 5:39 AM EMS DIRECTOR) Pathologist [facility] INSULIN-LIKE GROWTH FACTOR (IGF-2) 156 ng/mL 12/09/2024 1:29 PM EMS DIRECTOR [facility] ([facility]) Comment: INTERPRETIVE INFORMATION: Insulin-Like Growth Factor 2 Prepubertal (0-11 years old): 127 to 473 ng/mL Postpubertal (12 years and older): 180 to 580 ng/mL This test was developed and its performance characteristics determined by [facility]. It has not been cleared or approved by the US Food and Drug Administration. This test was performed in a CLIA certified laboratory and is intended for clinical purposes. Performed By: [facility] [address] [place] [address] Town Administrator: Armando Lowe MD, PhD CLIA Number: [id number] Blood BLOOD SPECIMEN / Unknown Lab Venipuncture / Unknown 12/06/2024 5:39 AM EMS DIRECTOR 12/06/2024 5:58 AM EMS DIRECTOR Juancarlos Lujan MD LAB - CHEMISTRY JOHN PAUL RIVAS [facility]) [address] [place] [address] * INSULIN FREE + TOTAL (12/06/2024 5:39 AM EMS DIRECTOR) Only the most recent of2 resultswithin the time period is included. [facility] Insulin Free 9 3 - 25 uIU/mL 12/10/2024 9:36 AM EMS DIRECTOR [facility] ([facility]) Insulin 11 3 - 25 uIU/mL 12/10/2024 9:36 AM EMS DIRECTOR [facility]) Comment: INTERPRETIVE INFORMATION: Insulin, Free and Total This test reacts on a nearly equimolar basis with the analogs insulin aspart, insulin glargine, and insulin lispro. Insulin detemir exhibits approximately 50 percent cross-reactivity. Test reactivity with insulin glulisine is negligible (<3 percent). To convert to pmol/L, multiply uIU/mL by 6.0. Reference intervals established for fasting specimens. Performed By: [facility] [address] [place] [address] Town Administrator: Armando Lowe MD, PhD CLIA Number: [id number] Blood BLOOD SPECIMEN / Unknown Lab Venipuncture / Unknown 12/06/2024 5:39 AM EMS DIRECTOR 12/06/2024 5:58 AM EMS DIRECTOR Juancarlos Lujan MD LAB - CHEMISTRY ORDUlysses RIVAS Performing Organization Address [facility] de Phone Number [facility]) [address] [place] [address] * (ABNORMAL) C-PEPTIDE (12/06/2024 5:39 AM EMS DIRECTOR) Only the most recent of2 resultswithin the time period is included. C-Peptide 6.9(H) 0.5 - 3.3 ng/mL 12/08/2024 9:16 PM EMS DIRECTOR [facility] ([facility]) Comment: INTERPRETIVE INFORMATION: Serum, C-Peptide Reference Interval applies to fasting specimens. To convert to nmol/L, multiply by 0.33 Performed By: [facility] [address] [place] [address] Town Administrator: Armando Lowe MD, PhD CLIA Number: [id number] Blood BLOOD SPECIMEN / Unknown Lab Venipuncture / Unknown 12/06/2024 5:39 AM EMS DIRECTOR 12/06/2024 5:58 AM EMS DIRECTOR Juancarlos Lujan MD LAB - CHEMISTRY JOHN PAUL RIVAS Performing Organization Address [facility] de Phone Number [facility] ([facility]) [address] [place] [address] * (ABNORMAL) PROINSULIN (12/06/2024 5:39 AM EMS DIRECTOR) Only the most recent of2 resultswithin the time period is included. Proinsulin 10.1(H) <=7.2 pmol/L 12/10/2024 7:21 AM EMS DIRECTOR [facility] ([facility]) Comment: Performed By: [facility] [address] [place] [address] Town Administrator: Armando Lowe MD, PhD CLIA Number: [id number] Blood BLOOD SPECIMEN / Unknown Lab Venipuncture / Unknown 12/06/2024 5:39 AM EMS DIRECTOR 12/06/2024 5:58 AM EMS DIRECTOR Juancarlos Lujan MD LAB - CHEMISTRY JOHN PAUL RIVAS [facility] ([facility]) [address] [place] [address], [facility] * HYDROXYBUTYRATE BETA (12/06/2024 5:39 AM EMS DIRECTOR) Only the most recent of3 resultswithin the time period is included. Beta-Hydroxybu tyrate <0.50 <0.50 mmol/L 12/06/2024 6:29 AM EMS DIRECTOR [facility] Blood BLOOD SPECIMEN / Unknown Lab Venipuncture / Unknown 12/06/2024 5:39 AM EMS DIRECTOR 12/06/2024 6:02 AM EMS DIRECTOR Juancarlos Lujan MD LAB - CHEMISTRY JOHN PAUL RIVAS Performing Organization Address [facility] Co de Phone Number [address] [address], [facility] [phone] * CORTISOL BLOOD AM (12/06/2024 5:39 AM EMS DIRECTOR) Cortisol AM 11.6 3.7 - 19.4 ug/dL 12/06/2024 6:47 AM EMS DIRECTOR [facility] Blood BLOOD SPECIMEN / Unknown Lab Venipuncture / Unknown 12/06/2024 5:39 AM EMS DIRECTOR 12/06/2024 6:02 AM EMS DIRECTOR Narrative [facility] - 12/06/2024 6:47 AM EMS DIRECTOR Normal cortisol levels are generally highest in the morning hours and lowest from late evening through the truck sales manager 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 The PM measurements of cortisol run approximately one-half to one-third of the AM values. Juancarlos Lujan MD LAB - CHEMISTRY JOHN PAUL RIVAS Performing Organization Address City/[facility]/ZIP Co de Phone Number [address] [address], [facility] [phone] * US Abdomen Limited (12/04/2024 11:40 AM EMS DIRECTOR) Anatomical Region Laterality Modality Abdomen Ultrasound 12/04/2024 11:4 9 AM EMS DIRECTOR Impressions 12/04/2024 1:29 PM EMS DIRECTOR IMPRESSION: 1. Hepatic cirrhosis with sequela of portal hypertension including moderate volume ascites. 2. No cholelithiasis. 3. Moderate to large volume ascites. > Interpreting Provider: Patsy Orellana MD on 12/04/2024 1:29 PM Narrative 12/04/2024 1:29 PM EMS DIRECTOR PROCEDURE: US ABDOMEN LIMITED DATE/TIME OF EXAM: 12/04/2024 11:40 AM CLINICAL INFORMATION: None relevant/not provided if blank. Indication: K74.60: Hepatic cirrhosis, unspecified hepatic cirrhosis type, unspecified whether ascites present (HCC) Additional History: COMPARISON: Ultrasound from 10/25/2024 TECHNIQUE: Real-time ultrasound of the upper abdomen with DICOM image capture performed by eeg technologist. FINDINGS: The liver is coarse in [...] abdomen with DICOM image capture performed by eeg technologist. FINDINGS: The liver is coarse in [...] * CARDIAC EKG ORDER (12/04/2024 11:29 AM EMS DIRECTOR) Only the most recent of2 resultswithin the time period is included. Narrative 12/04/2024 11:29 AM EMS DIRECTOR Ordered by an unspecified provider. Scanned Document CARDIAC SERVICES ORD ERABLES * UREA NITROGEN URINE RANDOM (12/04/2024 9:39 AM EMS DIRECTOR) Urea Nitrogen Random Urine 361 Not Established mg/dL 12/04/2024 11:02 AM EMS DIRECTOR [facility] Urine URINE SPECIMEN OBTAINED BY CLEAN CATCH PROCEDURE / Unknown Collection / Unknown 12/04/2024 9:39 AM EMS DIRECTOR 12/04/2024 10:13 AM EMS DIRECTOR Juancarlos Lujan MD LAB - URINE CHEMISTR Y ORDERABLES Performing Organization Address [facility]/State/[facility] Co de Phone Number [address] [address], [facility] [phone] * FOLATE (12/04/2024 9:38 AM EMS DIRECTOR) Only the most recent of2 resultswithin the time period is included. Folate 10.1 7.0 - 31.4 ng/mL 12/04/2024 11:27 AM EMS DIRECTOR [facility] Blood BLOOD SPECIMEN / Unknown Venipuncture / Unknown 12/04/2024 9:38 AM EMS DIRECTOR 12/04/2024 10:14 AM EMS DIRECTOR Juancarlos Lujan MD LAB - CHEMISTRY JOHN PAUL RIVAS [address] [address], [place] [phone] * (ABNORMAL) VITAMIN B12 (12/04/2024 9:38 AM EMS DIRECTOR) Only the most recent of2 resultswithin the time period is included. Vitamin B12 1,880(H) 213 - 816 pg/mL 12/04/2024 11:27 AM EMS DIRECTOR [facility] Blood BLOOD SPECIMEN / Unknown Venipuncture / Unknown 12/04/2024 9:38 AM EMS DIRECTOR 12/04/2024 10:14 AM EMS DIRECTOR Juancarlos Lujan MD LAB - CHEMISTRY JOHN PAUL RIVAS Performing Organization Address City/[facility]/ZIP Co de Phone Number [address] [address], [place] [phone] * (ABNORMAL) IRON + TRANSFERRIN PANEL (12/04/2024 9:38 AM EMS DIRECTOR) Iron 64 50 - 175 ug/dL 12/04/2024 10:48 AM [facility] Transferrin 150(L) 174 - 382 mg/dL 12/04/2024 10:48 AM [facility] Transferrin Saturation % 34 16 - 50 % 12/04/2024 10:48 AM [facility] TIBC Calculated 188(L) 240 - 450 ug/dL 12/04/2024 10:48 AM [facility] Blood BLOOD SPECIMEN / Unknown Venipuncture / Unknown 12/04/2024 9:38 AM EMS DIRECTOR 12/04/2024 10:15 AM EMS DIRECTOR Juancarlos Lujan MD LAB - CHEMISTRY JOHN PAUL RIVAS [address] [address], [place] [phone] * (ABNORMAL) FERRITIN (12/04/2024 9:38 AM EMS DIRECTOR) Ferritin 339(H) 22 - 275 ng/mL 12/04/2024 11:05 AM [facility] Blood BLOOD SPECIMEN / Unknown Venipuncture / Unknown 12/04/2024 9:38 AM EMS DIRECTOR 12/04/2024 10:15 AM EMS DIRECTOR Juancarlos Lujan MD LAB - CHEMISTRY JOHN PAUL RIVAS [address] [address], [facility] [phone] * (ABNORMAL) URINALYSIS REFLEX MICROSCOPIC REFLEX CULTURE (12/04/2024 12:17 AM EMS DIRECTOR) Only the most recent of2 resultswithin the time period is included. Color UA Yellow Straw, Yellow 12/04/2024 12:33 AM [facility] Clarity UA Clear Clear 12/04/2024 12:33 AM [facility] Specific [place] UA 1.010 1.005 - 1.030 12/04/2024 12:33 AM [facility] pH UA 5.0 5.0 - 8.0 pH 12/04/2024 12:33 AM [facility] Protein UA Negative Negative 12/04/2024 12:33 AM [facility] Glucose UA 1+(A) Negative 12/04/2024 12:33 AM [facility] Ketone UA Negative Negative 12/04/2024 12:33 AM [facility] Bilirubin UA Negative Negative 12/04/2024 12:33 AM [facility] Blood UA Negative Negative 12/04/2024 12:33 AM [facility] Nitrite UA Negative Negative 12/04/2024 12:33 AM [facility] Leukocyte Esterase Negative Negative 12/04/2024 12:33 AM [facility] Urobilinogen UA Negative Negative mg/dL 12/04/2024 12:33 AM [facility] Comment UA Microscopic not indicated. 12/04/2024 12:33 AM [facility] Urine URINE SPECIMEN OBTAINED BY CLEAN CATCH PROCEDURE / Unknown Collection / Unknown 12/04/2024 12:17 AM EMS DIRECTOR 12/04/2024 12:22 AM EMS DIRECTOR Narrative [facility] - 12/04/2024 12:33 AM EMS DIRECTOR Sarika Martin PA-C LAB - URINALY SIS ORDERABLES Performing Organization Address City/[facility]/ZIP Co de Phone Number [address] [address], [place] [phone] * LYTES (NA K CL) URINE RANDOM PANEL (12/04/2024 12:17 AM EMS DIRECTOR) Sodium Urine 52 Not Established mmol/L 12/04/2024 12:47 AM EMS DIRECTOR [facility] Potassium Urine 22.9 Not Established mmol/L 12/04/2024 12:47 AM EMS DIRECTOR [facility] Chloride Random Urine 82 Not Established mmol/L 12/04/2024 12:47 AM EMS DIRECTOR [facility] Urine URINE SPECIMEN OBTAINED BY CLEAN CATCH PROCEDURE / Unknown Collection / Unknown 12/04/2024 12:17 AM EMS DIRECTOR 12/04/2024 12:22 AM EMS DIRECTOR Juancarlos Lujan MD LAB - URINE CHEMISTR Y ORDERABLES Performing Organization Address City/[facility]/ZIP Co de Phone Number [address] [address], [place] [phone] * CREATININE URINE RANDOM (12/04/2024 12:17 AM EMS DIRECTOR) Creatinine Urine 55.70 Not Established mg/dL 12/04/2024 12:47 AM EMS DIRECTOR [facility] Urine URINE SPECIMEN OBTAINED BY CLEAN CATCH PROCEDURE / Unknown Collection / Unknown 12/04/2024 12:17 AM EMS DIRECTOR 12/04/2024 12:22 AM EMS DIRECTOR Juancarlos Lujan MD LAB - URINE CHEMISTR Y ORDERABLES [address] [address], [place] [phone] * CULTURE BLOOD (12/03/2024 6:17 PM EMS DIRECTOR) Only the most recent of4 resultswithin the time period is included. Culture No growth day 5 ADOLPH 12/08/2024 11:01 PM EMS DIRECTOR [facility] Blood PERIPHERAL BLOOD / Unknown Lab Venipuncture / Unknown 12/03/2024 6:17 PM EMS DIRECTOR 12/03/2024 6:39 PM EMS DIRECTOR Homer Moran MD LAB - MICROBIO LOGY ORDERABLES [facility] [address] [place] [address], [facility] [phone] * CT Head Wo Contrast (12/03/2024 4:56 PM EMS DIRECTOR) Only the most recent of3 resultswithin the time period is included. Anatomical Region Laterality Modality Head Computed Tomogra phy 12/03/2024 5:00 PM EMS DIRECTOR Impressions 12/03/2024 5:01 PM EMS DIRECTOR IMPRESSION: 1. No acute intracranial process. > Interpreting Provider: Abraham Mahajan MD on 12/03/2024 5:01 PM Narrative 12/03/2024 5:01 PM EMS DIRECTOR PROCEDURE: CT HEAD WO CONTRAST DATE/TIME OF [...] extra-axial fluid collections are identified. There is [id number] cerebral volume loss with associated ex vacuo [...] or extra-axial fluid collections are identified. Thereis xevg-tv-tcywntvd cerebral volume loss with associated ex vacuoventricular [...] HIGH SENSITIVE REFLEX 1HOUR (12/03/2024 3:26 PM EMS DIRECTOR) Only the most recent of2 resultswithin the time period is included. Troponin I High Sensitive 11 <=35 ng/L 12/03/2024 4:33 PM EMS DIRECTOR [facility] Delta Troponin I HS 12/03/2024 4:33 PM EMS DIRECTOR [facility] Comment:Delta value intentio santy not calculated. Baseline to 1 hour specimen collection interval exceeded. Blood BLOOD SPECIMEN / Unknown Venipuncture / Unknown 12/03/2024 3:26 PM EMS DIRECTOR 12/03/2024 3:56 PM EMS DIRECTOR Sarika Martin PA-C LAB - RACE ENGINE BUILDER RY ORDERABLES Performing Organization Address [facility] Co de Phone Number [facility] [address] [place] [id number] [phone] * SARS-COV-2 (COVID-19) FLU A/B RSV PCR RAPID (12/03/2024 12:36 PM EMS DIRECTOR) COVID-19 PCR Not detected Not detected 12/03/19 1:56 PM EMS DIRECTOR [facility] Influenza A PCR Not detected Not detected 12/03/2024 1:56 PM [facility] Influenza B PCR Not detected Not detected 12/03/2024 1:56 PM [facility] RSV PCR Not detected Not detected 12/03/2024 1:56 PM EMS DIRECTOR [facility] Microbiology SPECIMEN FROM NASOPHARYNGEAL STRUCTURE / Unknown Collection / Unknown 12/03/2024 12:36 PM EMS DIRECTOR 12/03/2024 12:40 PM EMS DIRECTOR Narrative [facility] - 12/03/2024 1:56 PM EMS DIRECTOR This nucleic acid amplification assay has been [...] - MICROBI OLOGY ORDERABLES Performing Organization Address [facility]/ZIP Co de Phone Number [facility] [address] [place] [address], [facility] [phone] * PTT [facility] (12/03/2024 12:35 PM EMS DIRECTOR) APTT 26.4 23.0 - 38.4 Seconds 12/03/2024 1:06 PM [facility] Comment:Suggested therapeuti c range for full dose I.V. unfractionated heparin therapy for venous thromboembolism is 71 to 109 seconds. Blood BLOOD SPECIMEN / Unknown Venipuncture / Unknown 12/03/2024 12:35 PM EMS DIRECTOR 12/03/2024 12:43 PM EMS DIRECTOR Sarika PERALTAC LAB - COAGULA TION ORDERABLES Performing Organization Address City/[facility] Co de Phone Number [address] [address], [facility] [phone] * PT-INR [facility] (12/03/2024 12:35 PM EMS DIRECTOR) Only the most recent of9 resultswithin the time period is included. PT 14.7 12.1 - 14.8 Seconds 12/03/2024 1:06 PM [facility] INR 1.2 See Comment 12/03/2024 1:06 PM EMS DIRECTOR [facility] Comment:The suggested therap eutic range for standard coumadin (warfarin) therapy is an INR of 2.0-3.0. For high-risk patients (Mechanical Mitral Valve Prosthesis, etc.), the suggested prophylactic therapeutic range is an INR of 2.5-3.5. Blood BLOOD SPECIMEN / Unknown Venipuncture / Unknown 12/03/2024 12:35 PM EMS DIRECTOR 12/03/2024 12:43 PM EMS DIRECTOR Sarika GALVIN-C LAB - COAGULA TION ORDERABLES [address] [address], [place] [phone] * TROPONIN-I HIGH SENSITIVE BASELINE + 1HR (12/03/2024 12:35 PM EMS DIRECTOR) Only the most recent of2 resultswithin the time period is included. Troponin I High Sensitive 11 <=35 ng/L 12/03/2024 1:15 PM EMS DIRECTOR [facility] Blood BLOOD SPECIMEN / Unknown Venipuncture / Unknown 12/03/2024 12:35 PM EMS DIRECTOR 12/03/2024 12:42 PM EMS DIRECTOR Sarika PERALTADocLanding LAB - RACE ENGINE BUILDER RY ORDERABLES Performing Organization Address City/[facility]/ZIP Co de Phone Number [address] [address], [facility] [phone] * AMMONIA (12/03/2024 12:35 PM EMS DIRECTOR) Only the most recent of4 resultswithin the time period is included. Ammonia 51 <=72 umol/L 12/03/2024 12:55 PM EMS DIRECTOR [facility] Blood BLOOD SPECIMEN / Unknown Venipuncture / Unknown 12/03/2024 12:35 PM EMS DIRECTOR 12/03/2024 12:55 PM EMS DIRECTOR Sarika Martin PA-C LAB - RACE ENGINE BUILDER RY ORDERABLES Performing Organization Address [facility]/ZIP Co de Phone Number [address] [address], [place] [phone] * EKG 12-LEAD (12/03/2024 12:21 PM EMS DIRECTOR) Only the most recent of2 resultswithin the time period is included. Ventricular Rate 66 BPM SL MUSE Atrial Rate 66 BPM [facility] MUSE P-R Interval 110 ms [facility] MUSE QRS Duration ms 86 ms [facility] MUSE Q-T Interval ms 378 ms [facility] MUSE QTC Calculation (Bezet) 396 ms SL MUSE Calculated P [place] 15 degrees SL MUSE Calculated T [place] 85 degrees SL MUSE Interpretation EKG SINUS RHYTHM POSSIBLE INFERIOR INFARCT , AGE UNDETERMINED ANTERIOR INFARCT (CITED ON OR BEFORE 30-AUG-2024) ABNORMAL ECG WHEN COMPARED WITH ECG OF 06-NOV-2024 15:17, BORDERLINE CRITERIA FOR INFERIOR INFARCT ARE NOW PRESENT Confirmed by NESTOR LEE MD ([id number]) on 12/13/2024 11:34:09 AM [facility] MUSE 12/03/2024 12:2 1 PM EMS DIRECTOR 12/13/2024 11:34 AM EMS DIRECTOR Sarika Martin PA-Isha ECG ORDERABLE S [facility] MUSE * XR CHEST 2VW (12/03/2024 11:24 AM EMS DIRECTOR) Anatomical Region Laterality Modality Chest Digital Radiogra phy 12/03/2024 11:4 7 AM EMS DIRECTOR Narrative 12/03/2024 11:53 AM EMS DIRECTOR PROCEDURE: XR CHEST 2VW, DATE/TIME OF EXAM: 12/03/2024 11:33 AM, LOCATION [facility] INDICATION: R41.82: Altered mental status, [...] report was drafted by Yaw Alvarez MD (vice president supply chain) 12/03/2024 11:47 AM. Candice Haddad MD have personally reviewed and interpreted this examination/study. > Interpreting Provider: Candice Gordon MD on 12/03/2024 11:53 AM Procedure Note Candice Gordon MD - 12/03/2024 PROCEDURE: XR CHEST 2VW, DATE/TIME OF EXAM: 12/03/2024 11:33 AM, LOCATION [facility] INDICATION: R41.82: Altered mental status, [...] report was drafted by Yaw Alvarez MD (vice president supply chain) 12/03/2024 11:47 AM. ICandice MD have personally reviewed and interpreted this examination/study. > Interpreting Provider: Candice Gordon MD on 12/03/2024 11:53 AM Sarika Martin PA-C DIAGNOSTIC IM AGING ORDERABLES * SYPHILIS ANTIBODY CASCADING REFLEX (11/07/2024 4:27 AM EMS DIRECTOR) Treponema pallidum Antibody Non-react pepe Non-react pepe 11/07/2024 5:23 AM EMS DIRECTOR [facility] Comment: No Laboratory evidence of syphilis infection. Note: Circulating antibodies may be low or undetectable in early infection. If recent exposure is suspected, re-draw sample in 2-4 weeks and repeat testing. Blood BLOOD SPECIMEN / Unknown Venipuncture / Unknown 11/07/2024 4:27 AM EMS DIRECTOR 11/07/2024 4:37 AM EMS DIRECTOR Juancarlos Lujan MD LAB - SEROLOGY ORDER DENISE [facility] [address] [place] [address], [place] [phone] * HIV-1 HIV-2 ANTIBODY + HIV P24 AG PANEL (11/07/2024 4:27 AM EMS DIRECTOR) [facility] HIV Antigen/Antibod y 1 & 2 Non-reacti ve Non-react pepe 11/07/2024 5:23 AM EMS DIRECTOR [facility] Comment:No Laboratory eviden ce of HIV infection. Blood BLOOD SPECIMEN / Unknown Venipuncture / Unknown 11/07/2024 4:27 AM EMS DIRECTOR 11/07/2024 4:37 AM EMS DIRECTOR Juancarlos Lujan MD LAB - CHEMISTRY [facility] Performing Organization Address City/[facility]/ZIP Co de Phone Number [address] [address], [place] [phone] * TSH REFLEX FREE T4 (11/07/2024 4:27 AM EMS DIRECTOR) [facility] TSH 0.697 0.350 - 4.940 uIU/mL 11/07/2024 5:41 AM EMS DIRECTOR [facility] Blood BLOOD SPECIMEN / Unknown Venipuncture / Unknown 11/07/2024 4:27 AM EMS DIRECTOR 11/07/2024 4:39 AM EMS DIRECTOR Juancarlos Lujan MD LAB - CHEMISTRY [facility] Performing Organization Address City/[facility]/ZIP Co de Phone Number [address] [address], [place] [phone] * VITAMIN B1 (11/07/2024 4:27 AM EMS DIRECTOR) [facility] Vitamin B1 Whole Blood 96 70 - 180 nmol/L 11/09/2024 12:56 PM EMS DIRECTOR [facility] ([facility]) Comment: INTERPRETIVE INFORMATION: Vitamin B1, Whole Blood This assay measures the concentration of thiamine diphosphate (TDP), the primary active form of vitamin B1. Approximately 90 percent of vitamin B1 present in whole blood is TDP. Thiamine and thiamine monophosphate, which comprise the remaining 10 percent, are not measured. This test was developed and its performance characteristics determined by [facility] [employer]. It has not been cleared or approved by the US Food and Drug Administration. This test was performed in a CLIA certified laboratory and is intended for clinical purposes. Performed By: [place] [id number] Town Administrator: Armando Lowe MD, PhD CLIA Number: [id number] Blood BLOOD SPECIMEN / Unknown Venipuncture / Unknown 11/07/2024 4:27 AM EMS DIRECTOR 11/07/2024 4:37 AM EMS DIRECTOR Juancarlos Lujan MD LAB - CHEMISTRY [facility] ([facility]) [address] [place] [address], [facility] * (ABNORMAL) URINALYSIS W/MICROSCOPIC REFLEX TO CULTURE (11/06/2024 11:44 PM EMS DIRECTOR) Only the most recent of2 resultswithin the time period is included. Color UA Yellow Straw, Yellow 11/07/2024 12:16 AM [facility] Clarity UA Clear Clear 11/07/2024 12:16 AM [facility] Specific [place] UA 1.011 1.005 - 1.030 11/07/2024 12:16 AM [facility] pH UA 5.0 5.0 - 8.0 pH 11/07/2024 12:16 AM [facility] Protein UA Negative Negative 11/07/2024 12:16 AM [facility] Glucose UA 3+(A) Negative 11/07/2024 12:16 AM [facility] Ketone UA Negative Negative 11/07/2024 12:16 AM [facility] Bilirubin UA Negative Negative 11/07/2024 12:16 AM [facility] Blood UA Negative Negative 11/07/2024 12:16 AM [facility] Nitrite UA Negative Negative 11/07/2024 12:16 AM [facility] Leukocyte Esterase Negative Negative 11/07/2024 12:16 AM [facility] Urobilinogen UA Negative Negative mg/dL 11/07/2024 12:16 AM [facility] RBC UA 0-2 None Seen, 0-2, 3-5 /HPF 11/07/2024 12:16 AM [facility] WBC UA 0-5 None Seen, 0-5 /HPF 11/07/2024 12:16 AM [facility] Bacteria UA Trace(A) None /HPF 11/07/2024 12:16 AM [facility] Squamous Epithelial Cells UA None Seen None Seen, 0-2, 3-5 /HPF 11/07/2024 12:16 AM [facility] Mucus UA 1+ /LPF 11/07/2024 12:16 AM [facility] Hyaline Casts UA 0-2 None Seen, 0-2 /LPF 11/07/2024 12:16 AM [facility] Urine URINE SPECIMEN OBTAINED BY CLEAN CATCH PROCEDURE / Unknown Collection / Unknown 11/06/2024 11:44 PM EMS DIRECTOR 11/07/2024 12:04 AM EMS DIRECTOR [facility] - 11/07/2024 12:16 AM EMS DIRECTOR Culture Not Indicated Parsi Quintero BUILDING CONSULTANT-SUPERVISOR BOILER REPAIR LAB - URINALY SIS ORDERABLES [facility] [address] [place] [address], [facility] [phone] * URINE DRUG SCREEN IMMUNOASSAY (11/06/2024 11:43 PM EMS DIRECTOR) Pathologist [facility] Amphetamines Screen Urine Negative Negative: < 1000 ng/mL 11/07/2024 12:43 AM [facility] Barbiturates Screen Urine Negative Negative: < 200 ng/mL 11/07/2024 12:43 AM [facility] Benzodiazepine Screen Urine Negative Negative: < 200 ng/mL 11/07/2024 12:43 AM [facility] Opiates Urine Negative Negative: < 300 ng/mL 11/07/2024 12:43 AM [facility] Cocaine Metabolites Urine Negative Negative: < 300 ng/mL 11/07/2024 12:43 AM [facility] Phencyclidine Screen Urine Negative Negative: < 25 ng/ml 11/07/2024 12:43 AM [facility] Cannabinoids Screen Urine Negative Negative: <50 ng/mL 11/07/2024 12:43 AM [facility] Methadone Screen Urine Negative Negative: < 300 ng/mL 11/07/2024 12:43 AM [facility] Fentanyl Screen Urine Negative Negative: <1.5 ng/mL 11/07/2024 12:43 AM [facility] Urine URINE / Unknown Collection / Unknown 11/06/2024 11:43 PM EMS DIRECTOR 11/07/2024 12:04 AM [facility] Narrative [facility] - 11/07/2024 12:43 AM [facility] The Urine Toxicology Screening Panel does not screen for Propoxyphene, Meprobamate, Carisoprodol, Trazodone, mqbh-kgc-sommvso medications and/or volatiles (Acetone, Isopropanol, Methanol or Ethylene Glycol). Ethanol, Salicylate, Acetaminophen, Tricyclic Antidepressants and several therapeutic drugs may be individually assayed in serum or plasma specimen. Toxicology testing by the [facility] is an aid to medical diagnosis and treatment of patients. No documented chain of custody was maintained. Results are intended to be used for clinical purposes only. Juancarlos Lujan MD LAB - URINE CHEMISTR Y ORDERABLES [address] [address], [facility] [phone] * PROTEIN BODY FLUID (11/06/2024 8:27 PM EMS DIRECTOR) Protein Fluid 1.2 Not Established For Fluids g/dL 11/06/2024 9:22 PM [facility] Fluid Type Peritoneal Fluid 11/06/2024 9:22 PM [facility] Fluid PERITONEAL FLUID / Unknown Collection / Unknown 11/06/2024 8:27 PM EMS DIRECTOR 11/06/2024 8:32 PM [facility] Narrative [facility] - 11/06/2024 9:22 PM [facility] The analytical performance of this test has been independently validated by the laboratory. A reference range has not been established for this fluid. Comparison of this result with the concentration in blood, serum or plasma is recommended. Homer Hallman MD LAB - BODY FLUID ORD ERABLES [address] [address], [facility] [phone] * GLUCOSE BODY FLUID (11/06/2024 8:27 PM EMS DIRECTOR) Glucose Fluid 126 Not Established For Fluids mg/dL 11/06/2024 9:55 PM [facility] Fluid Type Peritoneal Fluid 11/06/2024 9:55 PM [facility] Fluid PERITONEAL FLUID / Unknown Collection / Unknown 11/06/2024 8:27 PM EMS DIRECTOR 11/06/2024 8:32 PM EMS DIRECTOR [facility] - 11/06/2024 9:55 PM EMS DIRECTOR The analytical performance of this test has been independently validated by the laboratory. A reference range has not been established for this fluid. Comparison of this result with the concentration in blood, serum or plasma is recommended. Homer Hallman MD LAB - BODY FLUID ORD ERABLES Performing Organization Address City/[facility] Co de Phone Number [address] [address], [facility] [phone] * DIFFERENTIAL MANUAL FLUID (11/06/2024 8:27 PM EMS DIRECTOR) Only the most recent of2 resultswithin the time period is included. Fluid Source Peritoneal 11/06/2024 10:05 PM [facility] Body Fluid Total Cell Count 100 x10E6/L 11/06/2024 10:05 PM [facility] Neutrophils Fluid Percent 16 % 11/06/2024 10:05 PM [facility] Lymphocytes Fluid Percent 43 % 11/06/2024 10:05 PM [facility] Comment:Reactive Lymphocytes present. Macrophages Fluid Percent 36 % 11/06/2024 10:05 PM [facility] Eosinophils Fluid Percent 5 % 11/06/2024 10:05 PM [facility] Fluid PERITONEAL FLUID / Unknown Collection / Unknown 11/06/2024 8:27 PM EMS DIRECTOR 11/06/2024 8:32 PM EMS DIRECTOR Narrative [facility] - 11/06/2024 10:05 PM EMS DIRECTOR No reference ranges established for body fluid differential cell counts. The test results must be integrated into the clinical context for interpretation. Homer Hallman MD LAB - BODY FLUID ORD CAMPBELLBLES Performing Organization Address [facility] Co de Phone Number [address] [address], [facility] [phone] * CELL COUNT W DIFFERENTIAL FLUID (11/06/2024 8:27 PM EMS DIRECTOR) Only the most recent of2 resultswithin the time period is included. Fluid Source Peritoneal 11/06/2024 10:05 PM [facility] Fluid Appearance SLIGHTLY HAZY 11/06/2024 10:05 PM [facility] Fluid Color PALE YELLOW 11/06/2024 10:05 PM [facility] Total Nucleated Cells Fluid 92 Reference Range Not Established x10E6/L 11/06/2024 10:05 PM [facility] RBC Count Fluid <2,000 Reference Range Not Established x10E6/L 11/06/2024 10:05 PM [facility] Fluid PERITONEAL FLUID / Unknown Collection / Unknown 11/06/2024 8:27 PM EMS DIRECTOR 11/06/2024 8:32 PM EMS DIRECTOR [facility] - 11/06/2024 10:05 PM EMS DIRECTOR No reference ranges established for body fluid cell counts. Any reference ranges provided are derived from published literature. The test results must be integrated into the clinical context for interpretation. Homer Hallman MD LAB - BODY FLUID ORD CASSIDY Performing Organization Address [facility] Co de Phone Number [address] [address], [facility] [phone] * (ABNORMAL) CULTURE FLUID+GRAM STAIN (11/06/2024 8:15 PM EMS DIRECTOR) Only the most recent of2 resultswithin the time period is included. Culture Light Achromobacter species(AA) ADOLPH 11/10/2024 4:24 AM [facility] Comment:Isolate is multi tammy g resistant organism (MDRO). Gram Stain Light Red blood cells 11/10/2024 4:24 AM [facility] Gram Stain Rare Polymorphonuclear cells 11/10/2024 4:24 AM [facility] Gram Stain No organisms seen 025 4:24 AM [facility] Other PERITONEAL FLUID / Unknown Collection / Unknown 11/06/2024 8:15 PM EMS DIRECTOR 11/06/2024 8:32 PM EMS DIRECTOR Narrative [facility] - 11/10/2024 4:24 AM EMS DIRECTOR This isolate is a multidrug resistant organism [...] Hallman MD LAB - MICROBIOLOGY O RDERABLES [facility] [address] [place], [address] [phone] * Paracentesis (11/06/2024 6:28 PM EMS DIRECTOR) Narrative Homer Hallman MD - 11/06/2024 6:28 PM EMS DIRECTOR Homre Hallman MD 11/06/2024 8:11 PM Paracentesis Date/Time: [...] (COVID-19)+INFLU A+B PCR RAPID (11/06/2024 3:40 PM EMS DIRECTOR) COVID-19 PCR Not detected Not detected 11/06/19 5:10 PM EMS DIRECTOR [facility] Influenza A Rapid JOHNNIE Not Detected Not Detected 11/06/2024 5:10 PM EMS DIRECTOR [facility] Influenza B JOHNNIE Rapid Not Detected Not Detected 11/06/2024 5:10 PM EMS DIRECTOR [facility] Microbiology SPECIMEN FROM NASOPHARYNGEAL STRUCTURE / Unknown Collection / Unknown 11/06/2024 3:40 PM EMS DIRECTOR 11/06/2024 4:29 PM EMS DIRECTOR Narrative [facility] - 11/06/2024 5:10 PM EMS DIRECTOR Influenza assay performed by [employer]. [...] acid amplification assay performance was validated by [facility]. This test has been authorized by [...] Hallman MD LAB - MICROBIOLOGY O RDERABLES [facility] [address] [place] [address], [facility] [phone] * XR Chest 1Vw Portable (11/06/2024 2:29 PM EMS DIRECTOR) Only the most recent of2 resultswithin the time period is included. Anatomical Region Laterality Modality Chest Digital Radiogra phy 11/06/2024 2:35 PM EMS DIRECTOR Narrative 11/06/2024 2:46 PM EMS DIRECTOR PROCEDURE: XR CHEST 1VW PORTABLE, DATE/TIME OF EXAM: 11/06/2024 2:30 PM, LOCATION [facility] INDICATION: G93.40: Encephalopathy, unspecified type [...] pneumothorax. Report dictated by Jonathan Torres MD, (Pathology Manager). I, Christophe Rahman MD have personally reviewed and interpreted this examination/study. > Interpreting Provider: Christophe Rahman MD on 11/06/2024 2:46 PM Procedure Note Christophe Rahman MD - 11/06/2024 PROCEDURE: XR CHEST 1VW PORTABLE, DATE/TIME OF EXAM: 11/06/2024 2:30 PM, LOCATION [facility] INDICATION: G93.40: Encephalopathy, unspecified type [...] pneumothorax. Report dictated by Jonathan Torres MD, (Pathology Manager). I, Christophe Rahman MD have personally reviewed and interpreted this examination/study. > Interpreting Provider: Christophe Rahman MD on 11/06/2024 2:46 PM Homer Hallman MD DIAGNOSTIC IMAGING O RDERABLES * LIPASE BLOOD (11/06/2024 12:54 PM EMS DIRECTOR) [facility] Lipase 16 8 - 78 U/L 11/06/2024 1:37 PM [facility] Blood BLOOD SPECIMEN / Unknown Venipuncture / Unknown 11/06/2024 12:54 PM EMS DIRECTOR 11/06/2024 1:07 PM EMS DIRECTOR Narrative [facility] - 11/06/2024 1:37 PM EMS DIRECTOR Lipase results from the [employer] Al[employer] analyzer may not be comparable with other methodologies. Paris Quintero BUILDING CONSULTANT-SUPERVISOR BOILER REPAIR LAB - RACE ENGINE BUILDER RY ORDERABLES [address] [address], [facility] [phone] * (ABNORMAL) CBC W/O DIFFERENTIAL (10/28/2024 6:14 AM EMS DIRECTOR) Only the most recent of5 resultswithin the time period is included. [facility] WBC 3.0(L) 4.0 - 10.7 x10E9/L 10/28/2024 6:55 AM [facility] RBC Count 2.87(L) 4.30 - 5.80 x10E12/L 10/28/2024 6:55 AM [facility] Hemoglobin 8.9(L) 13.3 - 17.5 g/dL 10/28/2024 6:55 AM [facility] Hematocrit 26.5(L) 38.7 - 51.1 % 10/28/2024 6:55 AM [facility] MCV 92.3 80.0 - 98.0 fL 10/28/2024 6:55 AM [facility] MCH 31.0 26.7 - 33.6 pg 10/28/2024 6:55 AM [facility] MCHC 33.6 31.7 - 36.3 g/dL 10/28/2024 6:55 AM [facility] RDW-CV 16.5(H) 11.3 - 14.8 % 10/28/2024 6:55 AM [facility] Platelet Count 109(L) 150 - 420 x10E9/L 10/28/2024 6:55 AM [facility] MPV 10.9 7.8 - 11.4 fL 10/28/2024 6:55 AM [facility] Blood BLOOD SPECIMEN / Unknown Lab Venipuncture / Unknown 10/28/2024 6:14 AM EMS DIRECTOR 10/28/2024 6:39 AM EMS DIRECTOR Rigoberto Mcclain MD LAB - HEMATOLOGY ORD ERABLES [facility] [address] [place] [address], [facility] [phone] * (ABNORMAL) VITAMIN D 1,25 DIHYDROXY (10/26/2024 4:00 AM EMS DIRECTOR) Vitamin D, 1,25 Dihydroxy 18.8(L) 19.9 - 79.3 pg/mL 10/29/2024 12:19 AM EMS DIRECTOR [employer] ([facility]) Comment: INTERPRETIVE INFORMATION: Vitamin D, 1,25-Dihydroxy This test is primarily indicated during patient evaluation for hypercalcemia and renal failure. A normal result does not rule out Vitamin D deficiency. The recommended test for diagnosing Vitamin D deficiency is Vitamin D 25-hydroxy. Performed By: [employer] [address] [place] [id number] Town Administrator: Armando Lowe MD, PhD CLIA Number: [id number] Blood BLOOD SPECIMEN / Unknown Venipuncture / Unknown 10/26/2024 4:00 AM EMS DIRECTOR 10/26/2024 4:10 AM EMS DIRECTOR Shravan Jessica MD LAB - CHEMISTRY OR DERABLES [facility] [employer] ([facility]) [address] [place] [address], [facility] * SODIUM URINE RANDOM (10/25/2024 10:40 AM EMS DIRECTOR) Sodium Urine 30 Not Established mmol/L 10/25/2024 11:05 AM EMS DIRECTOR [facility] Urine URINE SPECIMEN OBTAINED BY CLEAN CATCH PROCEDURE / Unknown Collection / Unknown 10/25/2024 10:40 AM EMS DIRECTOR 10/25/2024 10:47 AM EMS DIRECTOR Shravan Jessica MD LAB - URINE CHEMIS TRY ORDERABLES [facility] [address] [place] [address], [facility] [phone] * US Abdomen Ltd W Comp Doppler (10/25/2024 8:20 AM EMS DIRECTOR) Anatomical Region Laterality Modality Abdomen Ultrasound 10/25/2024 12:3 6 PM EMS DIRECTOR Impressions 10/27/2024 1:43 AM EMS DIRECTOR IMPRESSION: 1.Hepatic cirrhosis with sequela of portal hypertension including moderate to large volume ascites. 2.Mildly decreased velocity of flow within the main portal vein (13.9 cm/s). No portal vein thrombosis. Otherwise, normal hepatic Doppler evaluation. 3.No evidence of cholelithiasis or acute cholecystitis. > Dictated by Tom Barreto DO,(residential door unit installer). I, Lalo St MD have personally reviewed and interpreted this examination/study. > Interpreting Provider: Lalo St MD on 10/27/2024 1:43 AM Narrative 10/27/2024 1:43 AM EMS DIRECTOR PROCEDURE: US ABDOMEN LTD W COMP DOPPLER, DATE/TIME OF EXAM: 10/25/2024 8:54 AM, LOCATION [facility] INDICATION: K76.82: Hepatic encephalopathy (HCC) [...] DOPPLER, DATE/TIME OF EXAM:10/25/2024 8:54 AM, LOCATION [facility] INDICATION: K76.82: Hepatic encephalopathy (HCC) [...] acute cholecystitis. > Dictated by Tom Barreto DO,(residential door unit installer). I, Lalo St MD have personally reviewed and interpreted this examination/study. > Interpreting Provider: Lalo St MD on 10/27/2024 1:43 AM Rigoberto Mcclain MD ORDERABLES * PTH INTACT W/O CALCIUM (10/25/2024 4:54 AM EMS DIRECTOR) [facility] PTH Intact 13.2 8.0 - 77.0 pg/mL 10/25/2024 6:19 AM EMS DIRECTOR [facility] Blood BLOOD SPECIMEN / Unknown Lab Venipuncture / Unknown 10/25/2024 4:54 AM EMS DIRECTOR 10/25/2024 5:46 AM EMS DIRECTOR Rigoberto Mcclain MD LAB - CHEMISTRY [facility] Organization Address City/State/ZIP Co de Phone Number [address] [address], [facility] [phone] * (ABNORMAL) PTH RELATED PEPTIDE (10/25/2024 4:54 AM EMS DIRECTOR) PTH Related Peptide 3.1(H) 0.0 - 2.3 pmol/L 11/03/2024 1:05 PM EMS DIRECTOR [facility] ([facility]) Comment: INTERPRETIVE INFORMATION: Parathyroid Hormone-Related Peptide This test was developed and its performance characteristics determined by [facility]. It has not been cleared or approved by the US Food and Drug Administration. This test was performed in a CLIA certified laboratory and is intended for clinical purposes. Performed By: [address] [address] Town Administrator: Armando Lowe MD, PhD CLIA Number: [id number] Blood BLOOD SPECIMEN / Unknown Lab Venipuncture / Unknown 10/25/2024 4:54 AM EMS DIRECTOR 10/25/2024 5:29 AM EMS DIRECTOR Rigoberto Mcclain MD LAB - CHEMISTRY [facility] Performing Organization Address City/[facility]/ZIP Co de Phone Number [facility]) [address] [place] [id number] * (ABNORMAL) VITAMIN D 25-HYDROXY (10/25/2024 4:54 AM EMS DIRECTOR) Pathologist [facility] Vitamin D, 25 Hydroxy 27.0(L) 30.0 - 80.0 ng/mL 10/25/2024 6:33 AM EMS DIRECTOR [facility] Comment: The recommendations for 25-Hydroxy Vitamin D [...] Lab Venipuncture / Unknown 10/25/2024 4:54 AM EMS DIRECTOR 10/25/2024 5:29 AM EMS DIRECTOR Rigoberto Mcclain MD LAB - CHEMISTRY [facility] [address] [address], [facility] [phone] * LDH BLOOD (10/25/2024 4:54 AM EMS DIRECTOR) Pathologist [facility] LDH Total 203 125 - 243 Units/L 10/25/2024 6:19 AM [facility] Blood BLOOD SPECIMEN / Unknown Lab Venipuncture / Unknown 10/25/2024 4:54 AM EMS DIRECTOR 10/25/2024 5:29 AM EMS DIRECTOR Rigoberto Mcclain MD LAB - CHEMISTRY [facility] Performing Organization Address City/[facility]/ZIP Co de Phone Number [facility] [address] [place] [address], [facility] [phone] * (ABNORMAL) CALCIUM IONIZED WHOLE BLOOD (10/24/2024 8:47 AM EMS DIRECTOR) [facility] Calcium Ionized 1.54 mmol/L 10/24/2024 9:03 AM [facility] pH 7.41 7.35 - 7.45 pH 10/24/2024 9:03 AM [facility] Ionized Calcium pH Adjusted 1.55(H) 1.19 - 1.34 mmol/L 10/24/2024 9:03 AM [facility] Blood BLOOD SPECIMEN / Unknown Lab Venipuncture / Unknown 10/24/2024 8:47 AM EMS DIRECTOR 10/24/2024 8:58 AM EMS DIRECTOR Rigoberto Mcclain MD LAB - CHEMISTRY [facility] Performing Organization Address City/[facility]/ZIP Co de Phone Number [address] [address], [facility] [phone] * (ABNORMAL) HEMOGLOBIN A1C (10/24/2024 8:47 AM [facility]) [facility] Hemoglobin A1c 7.9(H) <=5.6 % 10/24/2024 12:41 PM [facility] Estimated Average Glucose 180 mg/dL 10/24/2024 12:41 PM [facility] Comment: HbA1c Interpretation: Normal : < 5.7% Pre-diabetes: 5.7-6.4% Diabetes: Equal to or greater than 6.5% Test results diagnostic of diabetes should be repeated for confirmation. Treatment target values recommended by ADA and other clinical organizations should be used to evaluate metabolic control in patients. Reference: [place] [employer], Standards of Care in Diabetes -2020 In patients 70 years and older consider HbA1c target range of 7.0-7.5% (Reference: Armen López et al. ZAKDA. 2012) The Sebia assay for the measurement of HbA1c is a National Glycohemoglobin Standardization Program (NGSP) certified method. Blood BLOOD SPECIMEN / Unknown Lab Venipuncture / Unknown 10/24/2024 8:47 AM EMS DIRECTOR 10/24/2024 9:01 AM EMS DIRECTOR Rigoberto Mcclain MD LAB - CHEMISTRY [facility] Performing Organization Address City/[facility]/ZIP Co de Phone Number [address] [address], [place] [phone] * LACTIC ACID BLOOD (10/24/2024 8:47 AM EMS DIRECTOR) Lactic Acid-Stat 2.0 <=2.0 mmol/L 10/24/2024 9:33 AM EMS DIRECTOR [facility] Blood BLOOD SPECIMEN / Unknown Lab Venipuncture / Unknown 10/24/2024 8:47 AM EMS DIRECTOR 10/24/2024 9:02 AM EMS DIRECTOR Rigoberto Mcclain MD LAB - CHEMISTRY [facility] Performing Organization Address City/[facility]/ZIP Co de Phone Number [address] [address], [place] [phone] * (ABNORMAL) BLOOD GASES REINA + COOX PANEL (10/23/2024 6:25 PM EMS DIRECTOR) pH Venous 7.45(H) 7.32 - 7.42 pH 10/23/2024 6:44 PM EMS DIRECTOR [facility] pO2 Venous 86(H) 35 - 40 mmHg 10/23/2024 6:44 PM EMS DIRECTOR [facility] pCO2 Venous 23(L) 40 - 50 mmHg 10/23/2024 6:44 PM EMS DIRECTOR [facility] HCO3 Venous 16.0(L) 20 - 30 mmol/L 10/23/2024 6:44 PM [facility] Base Excess Venous -6.8(L) -2.0 - 2.0 mmol/L 10/23/2024 6:44 PM [facility] Oxyhemoglobin Venous 96.1 % 10/05 6:44 PM [facility] Deoxyhemoglobin (HHB) Venous % 2.1 % 10/23/2024 6:44 PM [facility] Methemoglobin 0.8 0.0 - 2.0 % 10/23/2024 6:44 PM [facility] Carboxyhemoglobin 1.0 0.0 - 2.0 % 2023 6:44 PM [facility] O2 Content Venous 12.4 Interpret within clinical context ml/dL 10/23/2024 6:44 PM [facility] Hemoglobin by COOX 9.1(L) 12.0 - 17.6 g/dL 10/23/2024 6:44 PM [facility] O2 Saturation Venous 98 >=70 % 10/05 6:44 PM [facility] FI O2 Mixed Venous 21.0 % 2023 6:44 PM [facility] Blood BLOOD SPECIMEN / Unknown Lab Venipuncture / Unknown 10/23/2024 6:25 PM EMS DIRECTOR 10/23/2024 6:36 PM [facility] - 10/23/2024 6:44 PM EMS DIRECTOR Carboxyhemoglobin Normal Concentration: Non-smokers: 0-2%; Smokers: 0-9%; Toxic: >20% Rigoberto Mcclain MD LAB - BLOOD GASES OR DERABLES [facility] [address] [place] [address], [facility] [phone] * (ABNORMAL) LACTIC ACID BLOOD REFLEX TO REPEAT (10/23/2024 6:11 PM EMS DIRECTOR) Only the most recent of3 resultswithin the time period is included. Lactic Acid-Stat 7.9(HH) <=2.0 mmol/L 10/23/2024 6:46 PM [facility] Blood BLOOD SPECIMEN / Unknown Lab Venipuncture / Unknown 10/23/2024 6:11 PM EMS DIRECTOR 10/23/2024 6:18 PM EMS DIRECTOR Paris Quintero BUILDING CONSULTANT-SUPERVISOR BOILER REPAIR LAB - RACE ENGINE BUILDER RY ORDERABLES [facility] [address] [place] [address], [facility] [phone] * Paracentesis (10/23/2024 4:59 PM EMS DIRECTOR) Narrative Muna Waller MD - 10/23/2024 4:59 PM EMS DIRECTOR Elma Deutsch MD 10/23/2024 5:01 PM Paracentesis [...] 9:50 PM 09/02/2024 2:53 PM Care Teams Log Check Scaler Relationship Specialty Start Date End Date Moses Conn MD [address] [place] [address] PCP - General 01/04/23
--- OUTSIDE RECORDS SUMMARY | 2024-12-25 09:04 | XMS_ITS ---
Author Organization [facility] Address [address] [place] [address] Care Team Providers Care Solar Project Manager Name Role Phone Moses Conn MD Primary Care Provider [phone] Anjelica Fish MD Unavailable [phone] Active Problems Problem Noted Date Diagnosed Date [...] monitoring Diabetes mellitus type 2 in nonobese (CMS/[facility]) 0 05/15/2021 Essential hypertension 05/15/2021 Bradycardia [...]
--- OUTSIDE RECORDS SUMMARY | 2024-12-25 09:05 | XMS_ITS | Encounter Summary ---
Author Organization [facility] Health Address [address] [facility] [place] [address] Care Team Providers Care Portable Pinch Riveter Name Role Phone Moses Conn MD Primary Care Provider Reason for Visit * Reason Onset Date Comments Results 06/19/2024 Encounter Details Date Type Department Care Team (Late st Contact Info) Description 06/19/2024 Telephone [facility] - [address], [place] [address] Rigoberto Mcclain MD [address] [place] [address] Results Social History Tobacco Use [...] Office Visit [facility] - [address], [place] [address] Rigoberto Mcclain MD [address] [place] [address] documented as of this encounter Goals Goal Patient Goal Type Associated Problems Recent Progress Patient-Stated? Author Medication Management General On track( 025 10:45 AM STATION INSTALLER AND REPAIRER) No Kandis Ledesma, RN Note: Expected end [...] Under Investigation 11/06/2024 11/06/2024 11/06/2024 5:10 PM STATION INSTALLER AND REPAIRER MDRO 11/06/2024 11/06/2024 COVID-19 Under Investigation 12/03/2024 12/03/2024 12/03/2024 1:56 PM STATION INSTALLER AND REPAIRER documented as of this encounter Care Teams Portable Pinch Riveter Relationship Specialty Start Date End Date Moses Conn MD [address] [place] [address] PCP - General 01/04/23 documented as of this encounter
--- OUTSIDE RECORDS SUMMARY | 2024-12-25 09:05 | XMS_ITS | Encounter Summary ---
Author Organization [facility] Health Address [address] [facility] [place] [address] Care Team Providers Care Dye Line Operator Name Role Phone Moses Conn MD Primary Care Provider [phone] Encounter Details Date Type Department Care Team (Late Contact Info) Description 12/19/2022 Lab Requisition [facility] Care Pathology Lab [address] [place] [address] Indio Montoya MD [facility] [address] [address] Illness, unspecified Social History Tobacco Use Types Packs/Day Years Used Date Smoking Tobacco: Never Assessed Sex and Gender Information Value Date Recorded Sex Assigned at Not on file Gender Identity Not on file Sexual Orientation Not on file documented as of this encounter Plan of Treatment Upcoming Encounters Date Type Department Care Team (Late Contact Info) Description 01/27/2025 2:00 PM CDT Office Visit [facility] - GI [address] [facility], [place] [phone] Rigoberto Mcclain MD [address] [place] [phone] documented as of this encounter Procedures Procedure Name Priority Date/Time Associated Diagnosis Comments PATHOLOGY TISSUE Routine 12/14/2022 11:2 9 AM CLOTH BOLT BANDER Illness, unspecified documented in this encounter Results * PATHOLOGY TISSUE (12/14/2022 11:29 AM CLOTH BOLT BANDER) Case Report Surgical Pathology Report Case: [id number] Authorizing Provider: Indio Montoya MD Collected: 12/14/2022 11:29 AM Ordering Location: [facility] Pathology Lab Received: 12/19/2022 08:29 AM Pathologist: Nataliya Pena MD Specimen: Lymph Node Biopsy 12/20/2022 11:59 AM [facility] Final Diagnosis Abdominal lymph node, core biopsy: - B-cell lymphoma - See description. 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 Overall, the biopsy is [...] and for final subclassification. 12/20/2022 11:59 AM [facility] Clinical History The patient is a 77 year-old man with abdominal lymphadenopathy. 12/20/2022 11:59 AM [facility] Materials Received Received are three slides and one block (A1) labeled [id number] along with a copy of the outside pathology report. [place] [address]. All original materials are returned to the referring institution, along with a copy of our final report. 12/20/2022 11:59 AM [facility] Disclaimer The performance characteristics of all immunohistochemical and indirect immunofluorescence stains (if any) cited in this report were determined by the Histopathology Laboratory of [facility]. Some of these tests were developed by [...] the attending (teaching) pathologist. 12/20/2022 11:59 AM [facility] Embedded Images 12/20/2022 11:59 AM [facility] Pathology/Cytolo gy BIOPSY OF LYMPH NODE / Unknown 12/14/2022 11:29 AM CLOTH BOLT BANDER 12/19/2022 8:29 AM CLOTH BOLT BANDER Indio Montoya MD LAB - PATHOLOGY/CYTO LOGY ORDERABLES Performing Organization Address City/State/[facility] Co de Phone Number [facility] PATH[facility] [address] [phone] documented in this encounter Visit Diagnoses Diagnosis Illness, unspecified documented in this encounter Additional Health Concerns Infection Onset Date Last Indicated Resolved Time COVID-19 Under Investigation 11/06/2024 11/06/2024 11/06/2024 5:10 PM CLOTH BOLT BANDER MDRO 11/06/2024 11/06/2024 COVID-19 Under Investigation 12/03/2024 12/03/2024 12/03/2024 1:56 PM CLOTH BOLT BANDER documented as of this encounter Care Teams Dye Line Operator Relationship Specialty Start Date End Date Moses Conn MD [address] [place] [address] PCP - General 01/04/23 documented as of this encounter
--- OUTSIDE RECORDS SUMMARY | 2024-12-25 09:05 | XMS_ITS | Clinical Summary ---
Author Organization [facility] Address [address] [place] [address] Care Team Providers Care Ginner Name Role Phone Moses Conn MD Primary Care Provider [phone] Allergies Active Allergy Reactions Criticality Noted Date [...] 22 Active fluticasone propionate (FLONASE) 50 mcg/spray [place], Suspension nasal inhaler Administer 1 [place] in each nostril daily. Active metoprolol succinate [...] Date Type Department Care Team Description 12/24/2024 External Device Data STL ABSTRACTION Provider, Abstract 12/23/2024 External Device Data STL ABSTRACTION Provider, Abstract 12/22/2024 2:15 PM CCU NURSE Office Visit [facility] [address] [place] [address] Anish Perez MD Multiple myeloma, remission status unspecified (CMS/HCC) (Primary Dx) 12/18/2024 Orders Only [facility] [address] [place] [address] Anish Perez MD Chronic anemia (Primary Dx); Pancytopenia (CMS/HCC); Other dietary vitamin B12 deficiency anemia 12/18/2024 Refill [facility] [address] [place] [address] Anish Perez MD 12/16/2024 Telephone [facility] Hemat[facility] [address] [place] [address] Anish Perez MD Lab Results 12/10/2024 4:30 PM CCU NURSE Telephone Check Up [facility] and [facility] - [place] [address] Anish Perez MD Multiple myeloma, remission status unspecified (CMS/HCC) (Primary Dx) 12/08/2024 Abstract [facility] - [place] [address] Anish Perez MD 12/05/2024 Abstract [facility] - [place] [address] [place] [phone] Anish Perez MD 12/05/2024 Orders Only [facility] - [place] [address] [place] [phone] Anish Perez MD 12/04/2024 Orders Only [facility] - [place] [address] [place] [phone] Anish Perez MD 12/02/2024 Orders Only [facility] - [place] [address] [place] [phone] Anish Perez MD 11/26/2024 External Device Data STL ABSTRACTION Provider, Abstract 11/25/2024 External Device Data STL ABSTRACTION Provider, Abstract 11/25/2024 Orders Only [facility] On[facility] and Hematology - [place] [address] [place] [phone] Anish Perez MD 11/20/2024 Abstract [facility] - [place] [address] [place] [phone] Anish Perez MD 11/18/2024 Orders Only [facility] - [place] [address] [place] [phone] Anish Perez MD 11/18/2024 Telephone [facility] On[facility] and [facility]emat[facility] - [place] [address] [place] [address] Anish Perez MD Paracentesis 11/06/2024 Orders Only [facility] Oncology and Hematology - [place] [address] [place] [address] Anish Perez MD 10/22/2024 Orders Only [facility] On[facility] and Hematology - [place] [address] [place] [address] Anish Perez MD 10/15/2024 Orders Only [facility] On[facility] and Hematology - [place] [address] [place] [address] Anish Perez MD 10/08/2024 Orders Only [facility] On[facility] and Hematology - [place] [address] [place] [address] Anish Perez MD 10/07/2024 Orders Only [facility] On[facility] and Hematology - [place] [address] [place] [address] Anish Perez MD 09/24/2024 Orders Only [facility] On[facility] and [facility]emat[facility] - [place] [address] [place] [phone] Anish Perez MD from Last 3 Months [...] Comments Blood Pressure 128/65 12/22/2024 2:03 PM CCU NURSE Pulse 66 12/22/2024 2:03 PM CCU NURSE Temperature 37.1 C (98.7 F) 12/22/2024 2:03 PM CCU NURSE Respiratory Rate 14 12/22/2024 2:03 PM CCU NURSE Oxygen Saturation 96% 12/22/2024 2:0 3 PM CCU NURSE Inhaled Oxygen Concentration - - Weight 62.1 kg (137 lb) 12/22/2024 2:03 PM CCU NURSE Patient stated that this is the correct weight Height 162.6 cm (5' 4 ) 06/19/2023 9:19 AM CDT Body Mass Index 23.52 06/19/2023 9:19 AM CDT Plan of Treatment Upcoming Encounters Date Type Department Care Team (Late st Contact Info) Description 01/01/2025 4:30 PM CCU NURSE Telephone Check Up [facility] and H[facility] [address] [facility] [address] [place] [address] Anish Perez MD [address] [facility] [address] [place] [address] Health Maintenance Due Date Last Done Comments DIABETES ANNUAL FOOT EXAM 1963 DIABETES ANNUAL RETINAL EXAM 1963 DIABETES MICROALBUMIN ANNUAL SCREEN 1963 LDL CHOLESTEROL ANNUAL 1963 DTAP/TDAP/TD VACCINES (1 - Tdap) 1964 RSV VACCINE (60+ or ) (1 - 1-dose 75+ series) 2020 COVID-19 Vaccine ( - 2023-2 5 season) 2024 09/08/2021, 01/06/2021, 12/10/2020 [place] Preventative Visit/Annual Wellness Visit 11/05/2024 DIABETES HBA1C [...] CBC WITH AUTODIFFERENTIAL Routine 2024 1:01 PM CCU NURSE COMPREHENSIVE METABOLIC PANEL Routine 12/01/2024 12:55 PM CCU NURSE KAPPA/LAMBDA LIGHT CHAINS Routine 2024 11:50 AM CCU NURSE PROTEIN ELECTROPHORESIS, CSF Routine 12/01/2024 10:51 AM CCU NURSE PARACENTESIS REPORT Routine 11/25/2024 2 :07 PM CCU NURSE PROTIME-INR Routine 11/18/2024 3:17 PM CCU NURSE PARACENTESIS REPORT Routine 11/18/2024 3 :10 PM CCU NURSE PARACENTESIS REPORT Routine 11/03/2024 1 0:54 AM CCU NURSE US ASPIRATION ABDOMEN Routine 10/21/2024 10:52 AM CCU NURSE PARACENTESIS REPORT Routine 10/14/2024 9 :01 AM CCU NURSE PROTIME-INR Routine 10/07/2024 3:44 PM CCU NURSE PARACENTESIS REPORT Routine 10/07/2024 2 :00 PM CCU NURSE from Last 3 Months Results * CBC WITH AUTODIFFERENTIAL (12/01/2024 1:01 PM CCU NURSE) Blood Anish Perez MD HEMATOLOGY ORDERABLES Final Res ult * COMPREHENSIVE METABOLIC PANEL (12/01/2024 12:55 PM CCU NURSE) Blood Anish Perez MD CHEMISTRY ORDERABLES Final Resu lt * KAPPA/LAMBDA, FREE LIGHT CHAINS (12/01/2024 11:50 AM CCU NURSE) Blood Anish Perez MD CHEMISTRY ORDERABLES Final Resu lt * PROTEIN ELECTROPHORESIS, CSF (12/01/2024 10:51 AM CCU NURSE) Cerebrospinal fluid CEREBROSPINAL FLUID / Unknown us Anish Perez MD BODY FLUIDS AND STOOLS Final Re sult * PARACENTESIS REPORT (11/25/2024 2:07 PM CCU NURSE) Result Paula Perez MD GI PROCEDURE ORDERABLES Final R esult * PROTIME-INR (11/18/2024 3:17 PM CCU NURSE) Only the most recent of2 resultswithin the time period is included. Blood Result Paula Perez MD HEMATOLOGY ORDERABLES Final Res ult * PARACENTESIS REPORT (11/18/2024 3:10 PM CCU NURSE) Result Paula Perez MD GI PROCEDURE ORDERABLES Final R esult * PARACENTESIS REPORT (11/03/2024 10:54 AM CCU NURSE) Result Paula Perez MD GI PROCEDURE ORDERABLES Final R esult * US ASPIRATION ABDOMEN (10/21/2024 10:52 AM CCU NURSE) Anatomical Region Laterality Modality Abdomen Other Result Paula Perez MD US ORDERABLES Final Result * PARACENTESIS REPORT (10/14/2024 9:01 AM CCU NURSE) Result Paula Perez MD GI PROCEDURE ORDERABLES Final R esult * PARACENTESIS REPORT (10/07/2024 2:00 PM CCU NURSE) Result Paula Perez MD GI PROCEDURE ORDERABLES Final R esult from Last 3 Months Insurance [facility] MCR Care Teams Ginner Relationship Specialty Start Date End Date Moses Conn MD [address] [place] [address] PCP - General Internal Medicine 04/12/22
--- OUTSIDE RECORDS SUMMARY | 2024-12-25 09:05 | XMS_ITS | Encounter Summary ---
Author Organization [facility] Health Address [address] [place] [address] Care Team Providers Care Lumber Inspector Name Role Phone Moses Conn MD Primary Care Provider [phone] Encounter Details Date Type Department Care Team (Late Contact Info) Description 09/21/2020 Lab Requisition [facility] [address] [place] [address] Armen Orozco MD [address] [facility] [place] [address] Social History Tobacco Use Types Packs/Day Years Used Date Smoking Tobacco: Never Assessed Sex and Gender Information Value Date Recorded Sex Assigned at Not on file Gender Identity Not on file Sexual Orientation Not on file documented as of this encounter Plan of Treatment Upcoming Encounters Date Type Department Care Team (Late Contact Info) Description 01/27/2025 2:00 PM CDT Office Visit [facility] - [address] [place] [phone] Rigoberto Mcclain MD [address] [place] [phone] documented as of this encounter Procedures Procedure Name Priority Date/Time Associated Diagnosis Comments DERMATOPATHOLOGY Routine 09/20/2020 12:0 0 AM MACHINE FILLER documented in this encounter Results * DERMATOPATHOLOGY (09/20/2020 12:00 AM MACHINE FILLER) Case Report Dermatopathology Report Case: [id number] Authorizing Provider: Armen Orozco MD Collected: 09/20/2020 12:00 AM Ordering Location: [facility] DermPath Lab Received: 09/21/2020 06:45 AM Pathologist: Lola Reyes MD Specimen: Skin, right helix 0 3:50 PM [facility] DERMATOPATHOLOGY [facility]ORATORY Final Diagnosis Specimen A. 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 Path # [id number]. 0 3:50 PM [facility] DERMATOPATHOLOGY [facility]ORATORY Gross Description Specimen A: Received is one formalin filled container labeled with the patient's name and designated right helix. The specimen consists of a shave biopsy measuring [id number]. Jar 0. 0 3:50 PM [facility] DERMATOPATHOLOGY LABORATORY Microscopic Description Specimen A. SKIN, [...] cannot be ruled out. 0 3:50 PM [facility] DERMATOPATHOLOGY [facility]ORATORY Disclaimer An external and internal positive and negative controls are appropriate for the histochemical, immunohistochemical and immunofluorescence stain(s) in this case (if any), except where stated explicitly. The performance characteristics of the stain(s) cited in this report were developed and its performance characteristic determined by the Dermatopathology Laboratory at [facility], directed by Dr. Quincy Perez. These tests need not be, and therefore are not, approved by the [place] Food and Drug Administration. The tests are used for clinical purposes. Billing Codes Specimen Charges Stain Charges 45592 1 84582 1 0 3:50 PM [facility] DERMATOPATHOLOGY LABORATORY Embedded Images 0 3:50 PM MACHINE FILLER DERMATOPATHOLOGY LABORATORY Pathology/Cytolog y TISSUE SPECIMEN FROM SKIN / Unknown 09/20/2020 09/21/2020 6:45 AM MACHINE FILLER Armen Orozco MD LAB - PATHOLOGY/CYTO LOGY ORDERABLES DERMATOPATHOLOGY LABORATORY [facility] Department of Dermatology [address], [address] [phone] documented in this encounter Visit Diagnoses Not on filedocumented in this encounter Additional Health Concerns Infection Onset Date Last Indicated Resolved Time COVID-19 Under Investigation 11/06/2024 11/06/2024 11/06/2024 5:10 PM MACHINE FILLER MDRO 11/06/2024 11/06/2024 COVID-19 Under Investigation 12/03/2024 12/03/2024 12/03/2024 1:56 PM MACHINE FILLER documented as of this encounter Care Teams Lumber Inspector Relationship Specialty Start Date End Date Moses Conn MD [address] [place] [id number] PCP - General 01/04/23 documented as of this encounter
--- OUTSIDE RECORDS SUMMARY | 2024-12-25 09:05 | XMS_ITS | Encounter Summary ---
Author Organization [facility] Health Address [address] [place] [address] Care Team Providers Care Header Up Name Role Phone Moses Conn MD Primary Care Provider [phone] Encounter Details Date Type Department Care Team (Late st Contact Info) Description 02/04/2024 Lab Requisition [facility] - Pathology Lab [address] [place] [address] Kadeem Mcclelland MD [address] [address] Illness, unspecified Social History Tobacco [...] Visit [facility] - GI [address] [facility], [place] [address] Rigoberto Mcclain MD [address] [place] [address] documented as of this encounter Procedures Procedure Name Priority Date/Time Associated Diagnosis Comments BONE MARROW BIOPSY (STL) Routine 02/01/2024 8:32 AM CDT Illness, unspecified documented in this encounter Results * BONE MARROW BIOPSY (STL) (02/01/2024 8:32 AM CDT) Case Report Bone Marrow Patholog y Report Case: [id number] Authorizing Provider: Kadeem Mcclelland Collected: 02/01/2024 08:32 AM MD Bola Ordering Location: [facility] - Received: 02/04/2024 03:11 PM Pathology Lab Pathologist: Rosa Maria Murry MD Specimens: A) - Bone Marrow Clot B) - Bone Marrow Core 02/06/2024 12:21 PM CDT [facility] Final Diagnosis Bone marrow, iliac crest, core biopsy, clot section, and aspirate: - Plasma cell neoplasm (up to 20% plasma cells with kappa light chain restriction) involving a markedly hypocellular marrow (5-10% cellular), see comment - No evidence of B-cell lymphoma - Adequate iron stores - No significant increase in reticulin fibrosis (MF-0) 02/06/2024 12:21 PM T [facility] Comment The patient has a [...] data is needed. 02/06/2024 12:21 PM CDT [facility] Peripheral Smear Description Manual [...] Cytometry Summary Bone marrow, flow cytometric immunophenotyping ([id number]): - Mild T-cell aberrancy identified (see comment) [...] outside pathology report. [place] [address] . All original materials are returned to [...] 1% of all cells without abnormal clustering. [place] and lambda in situ hybridization stains (core [...] [facility] Pathologist Location at [facility] 02/06/2024 12:21 PM [facility] Disclaimer The performance characteristics of all immunohistochemical and indirect immunofluorescence stains (if any) cited in this report were determined by the Histopathology Laboratory of [facility]. Some of these tests were developed [...] - PATHO LOGY/CYTOLOGY ORDERABLES Performing Organization Address City/State/[facility] Co de Phone Number [facility] [address] [phone] documented in this encounter Visit Diagnoses Diagnosis Illness, unspecified documented in this encounter Additional Health Concerns Infection Onset Date Last Indicated Resolved Time COVID-19 Under Investigation 11/06/2024 11/06/2024 11/06/2024 5:10 PM DISTRICT PLANT SUPERVISOR MDRO 11/06/2024 11/06/2024 COVID-19 Under Investigation 12/03/2024 12/03/2024 12/03/2024 1:56 PM DISTRICT PLANT SUPERVISOR documented as of this encounter Care Teams Header Up Relationship Specialty Start Date End Date Moses Conn MD [address] [place] [phone] PCP - General 01/04/23 documented as of this encounter
--- OUTSIDE RECORDS SUMMARY | 2024-12-25 09:05 | XMS_ITS | Patient Health Summary ---
Author Organization [facility] Address [address] 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 This disclosure is being madepursuant to the Care Everywhere program and may not contain all information available regarding this patient. Last updated 18.[facility] Allergies * Cefditoren(Rash) -Medium Criticality [...] fluticasone propionate (Flonase) 50 MCG/ACT nasal spray [place] 1 (one) spray into the nose once [...] and heating? Not hard at all 11/08/2024 [facility] - [facility] [...] time in the past 12 m [facility], were you homeless or living in a halfway (including now)? No 11/08/2024 Sex and Gender Information Value Date Recorded Sex Assigned at Not on file Gender Identity Not on file Sexual Orientation Not on file Last Filed Vital Signs Vital Sign Reading Time Taken Comments Blood Pressure 135/61 12/08/2024 12:00 PM DIGITAL MEDIA DIRECTOR Pulse 75 12/08/2024 12:00 PM DIGITAL MEDIA DIRECTOR Temperature 36.5 C (97.7 F) 12/08/2024 12:00 PM DIGITAL MEDIA DIRECTOR Respiratory Rate 17 12/08/2024 12:00 PM DIGITAL MEDIA DIRECTOR Oxygen Saturation 98% 12/08/2024 12:00 PM DIGITAL MEDIA DIRECTOR Inhaled Oxygen Concentration - - Weight 48 kg (105 lb 12.8 oz) 12/05/2024 6:16 PM DIGITAL MEDIA DIRECTOR Height 163 cm (5' 4.17 ) 12/04/2024 8:31 PM DIGITAL MEDIA DIRECTOR Body Mass Index 18.06 12/04/2024 8:31 PM DIGITAL MEDIA DIRECTOR Procedures * GLUCOSE - POINT OF CARE(Performed [...] * CBC W AUTO DIFFERENTIAL(Performed 11/06/2024) * FL ESOPHAGUS MOTILITY STUDY(Performed 10/31/2024) Performed for Dysphagia, [...] Performed for Decompensated hepatic cirrhosis (HCC) * [id number] BLOOD(Performed 06/17/2024) Performed for Decompensated hepatic cirrhosis [...] - POINT OF CARE (12/08/2024 12:03 PM DIGITAL MEDIA DIRECTOR) Only the most recent of120 resultswithin the time period is included. [facility] Glucose WB/POC 246(H) 70 - 99 mg/dL 12/08/2024 12:03 PM [facility] Specimen Type Cap Fingerstick 2024 12:03 PM [facility] Blood BLOOD SPECIMEN / Unknown 12/08/2024 12:03 PM DIGITAL MEDIA DIRECTOR 12/08/2024 12:03 PM DIGITAL MEDIA DIRECTOR Darek Teran MD LAB - POINT OF CARE ORDERABLES [facility] [address] [place] [address], [facility] [phone] * (ABNORMAL) CBC W AUTO DIFFERENTIAL (12/08/2024 5:06 AM DIGITAL MEDIA DIRECTOR) Only the most recent of29 resultswithin the time period is included. [facility] WBC 3.6(L) 4.0 - 10.7 x10E9/L 12/08/2024 5:38 AM [facility] RBC Count 2.38(L) 4.30 - 5.80 x10E12/L 12/08/2024 5:38 AM [facility] Hemoglobin 7.6(L) 13.3 - 17.5 g/dL 12/08/2024 5:38 AM [facility] Hematocrit 22.2(L) 38.7 - 51.1 % 12/08/2024 5:38 AM [facility] MCV 93.3 80.0 - 98.0 fL 12/08/2024 5:38 AM [facility] MCH 31.9 26.7 - 33.6 pg 12/08/2024 5:38 AM [facility] MCHC 34.2 31.7 - 36.3 g/dL 12/08/2024 5:38 AM [facility] RDW-CV 17.2(H) 11.3 - 14.8 % 12/08/2024 5:38 AM [facility] Platelet Count 121(L) 150 - 420 x10E9/L 12/08/2024 5:38 AM [facility] MPV 11.1 7.8 - 11.4 fL 12/08/2024 5:38 AM [facility] Neutrophil % 76.9(H) 41.0 - 74.0 % 12/08/2024 5:38 AM [facility] Lymphocyte % 7.2(L) 17.0 - 47.0 % 12/08/2024 5:38 AM [facility] Monocyte % 10.9 3.0 - 11.0 % 12/08/2024 5:38 AM [facility] Eosinophil % 3.9 0.0 - 7.0 % 12/08/2024 5:38 AM [facility] Basophil % 0.3 0.0 - 1.6 % 12/08/2024 5:38 AM [facility] Immature Granulocytes % 0.8 0.0 - 1.0 % 12/08/2024 5:38 AM [facility] Neutrophil Absolute 2.76 1.60 - 7.50 x10E9/L 12/08/2024 5:38 AM [facility] Lymphocyte Absolute 0.26(L) 1.00 - 4.40 x10E9/L 12/08/2024 5:38 AM [facility] Monocyte Absolute 0.39 0.15 - 1.00 x10E9/L 12/08/2024 5:38 AM [facility] Eosinophil Absolute 0.14 0.00 - 0.60 x10E9/L 12/08/2024 5:38 AM [facility] Basophil Absolute 0.01 0.00 - 0.13 x10E9/L 12/08/2024 5:38 AM [facility] Blood BLOOD SPECIMEN / Unknown Venipuncture / Unknown 12/08/2024 5:06 AM [facility] 12/08/2024 5:20 AM [facility] Juancarlos Lujan MD LAB - HEMATOLOGY ORD ERABLES [facility] [address] [place] [address], [facility] [phone] * (ABNORMAL) COMPREHENSIVE METABOLIC PANEL (12/08/2024 5:06 AM [facility]) Only the most recent of31 resultswithin the time period is included. BUN 27(H) 7 - 26 mg/dL 12/08/2024 5:56 AM [facility] Creatinine 1.28(H) 0.71 - 1.16 mg/dL 12/08/2024 5:56 AM [facility] Sodium 136 136 - 145 mmol/L 12/08/2024 5:56 AM [facility] Potassium 3.7 3.5 - 4.5 mmol/L 12/08/2024 5:56 AM [facility] Chloride 110(H) 98 - 107 mmol/L 12/08/2024 5:56 AM [facility] CO2 16(L) 22 - 29 mmol/L 12/08/2024 5:56 AM [facility] Glucose 171(H) 70 - 99 mg/dL 12/08/2024 5:56 AM [facility] Calcium 9.5 8.4 - 10.2 mg/dL 12/08/2024 5:56 AM [facility] Protein Total 5.9(L) 6.0 - 8.3 g/dL 12/08/2024 5:56 AM [facility] Albumin 2.7(L) 3.4 - 5.0 g/dL 12/08/2024 5:56 AM [facility] Bilirubin Total 0.9 0.2 - 1.2 mg/dL 12/08/2024 5:56 AM [facility] Alkaline Phosphatase 251(H) 40 - 150 U/L 12/08/2024 5:56 AM [facility] ALT 31 5 - 55 U/L 12/08/2024 5:56 AM [facility] AST 27 5 - 34 U/L 12/08/2024 5:56 AM [facility] Anion Gap 10 6 - 16 12/08/2024 5:56 AM [facility] BUN/Creatinine Ratio 21 7 - 23 12/08/2024 5:56 AM [facility] Osmolality Calculated 291 275 - 295 mOsm/kg 12/08/2024 5:56 AM [facility] Albumin/Globulin Ratio 0.8(L) 1.1 - 2.3 12/08/2024 5:56 AM [facility] eGFR by CKD-EPI 57(L) >=90 mL/min/1.7 3 m2 12/08/2024 5:56 AM [facility] Blood BLOOD SPECIMEN / Unknown Venipuncture / Unknown 12/08/2024 5:06 AM DIGITAL MEDIA DIRECTOR 12/08/2024 5:28 AM DIGITAL MEDIA DIRECTOR Juancarlos Lujan MD LAB - CHEMISTRY JOHN PAUL RIVAS Performing Organization Address City/[facility]/ZIP Co de Phone Number [address] [address], [facility] [phone] * (ABNORMAL) PHOSPHORUS BLOOD (12/08/2024 5:06 AM DIGITAL MEDIA DIRECTOR) Only the most recent of24 resultswithin the time period is included. Phosphorus 1.9(L) 2.8 - 5.1 mg/dL 12/08/2024 5:56 AM [facility] Blood BLOOD SPECIMEN / Unknown Venipuncture / Unknown 12/08/2024 5:06 AM DIGITAL MEDIA DIRECTOR 12/08/2024 5:28 AM DIGITAL MEDIA DIRECTOR Juancarlos Lujan MD LAB - CHEMISTRY ORDUlysses RIVAS [address] [address], [facility] [phone] * MAGNESIUM BLOOD (12/08/2024 5:06 AM DIGITAL MEDIA DIRECTOR) Only the most recent of30 resultswithin the time period is included. Magnesium 2.1 1.6 - 2.6 mg/dL 12/08/2024 5:56 AM [facility] Blood BLOOD SPECIMEN / Unknown Venipuncture / Unknown 12/08/2024 5:06 AM DIGITAL MEDIA DIRECTOR 12/08/2024 5:28 AM DIGITAL MEDIA DIRECTOR Narrative Authorizing Provider Result Vanna Lujan MD LAB - CHEMISTRY JOHN PAUL RIVAS Performing Organization Address City/[facility]/ZIP Co de Phone Number [facility] [address] [place] [address], [facility] [phone] * IGF BINDING PROTEIN 1 (12/06/2024 5:39 AM DIGITAL MEDIA DIRECTOR) IGF Binding Protein-1 19 5 - 34 ng/mL 12/17/2024 3:04 AM DIGITAL MEDIA DIRECTOR [employer] ([facility]) Comment: The limit of detection of this assay is 5 ng/mL. A proportion of normal patients will have results less than 5 ng/mL. This test was developed and its analytical performance characteristics have been determined by [facility]. It has not been cleared or approved by FDA. This assay has been validated pursuant to the CLIA regulations and is used for clinical purposes. Performed by: [facility] [address] [place] [address] Catie Pope MD, PhD, JIMMY, Blood BLOOD SPECIMEN / Unknown Lab Venipuncture / Unknown 12/06/2024 5:39 AM DIGITAL MEDIA DIRECTOR 12/06/2024 5:58 AM DIGITAL MEDIA DIRECTOR Juancarlos Lujan MD LAB - CHEMISTRY JOHN PAUL RIVAS Performing Organization Address City/[facility]/ZIP Co de Phone Number [facility]) [address] * INSULIN LIKE GROWTH FACTOR 2 (12/06/2024 5:39 AM DIGITAL MEDIA DIRECTOR) INSULIN-LIKE GROWTH FACTOR (IGF-2) 156 ng/mL 12/09/2024 1:29 PM DIGITAL MEDIA DIRECTOR [employer] ([facility]) Comment: INTERPRETIVE INFORMATION: Insulin-Like Growth Factor 2 Prepubertal (0-11 years old): 127 to 473 ng/mL Postpubertal (12 years and older): 180 to 580 ng/mL This test was developed and its performance characteristics determined by [employer]. It has not been cleared or approved by the US Food and Drug Administration. This test was performed in a CLIA certified laboratory and is intended for clinical purposes. Performed By: [facility] [employer] [address] [place] [address] Track Laborer: Armando Lowe MD, PhD CLIA Number: [id number] Blood BLOOD SPECIMEN / Unknown Lab Venipuncture / Unknown 12/06/2024 5:39 AM DIGITAL MEDIA DIRECTOR 12/06/2024 5:58 AM DIGITAL MEDIA DIRECTOR Juancarlos Lujan MD LAB - CHEMISTRY JOHN PAUL RIVAS Performing Organization Address City/[facility]/ZIP Co de Phone Number [facility] [employer] [facility]) [address] [place] [address] * INSULIN FREE + TOTAL (12/06/2024 5:39 AM DIGITAL MEDIA DIRECTOR) Only the most recent of2 resultswithin the time period is included. Pathologist [facility] Insulin Free 9 3 - 25 uIU/mL 12/10/2024 9:36 AM DIGITAL MEDIA DIRECTOR [employer] ([facility]) Insulin 11 3 - 25 uIU/mL 12/10/2024 9:36 AM DIGITAL MEDIA DIRECTOR [employer] ([facility]) Comment: INTERPRETIVE INFORMATION: Insulin, Free and Total This test reacts on a nearly equimolar basis with the analogs insulin aspart, insulin glargine, and insulin lispro. Insulin detemir exhibits approximately 50 percent cross-reactivity. Test reactivity with insulin glulisine is negligible (<3 percent). To convert to pmol/L, multiply uIU/mL by 6.0. Reference intervals established for fasting specimens. Performed By: [employer] [address] [place] [address] Track Laborer: Armando Lowe MD, PhD CLIA Number: [id number] Blood BLOOD SPECIMEN / Unknown Lab Venipuncture / Unknown 12/06/2024 5:39 AM DIGITAL MEDIA DIRECTOR 12/06/2024 5:58 AM DIGITAL MEDIA DIRECTOR Juancarlos Lujan MD LAB - CHEMISTRY JOHN PAUL RIVAS Performing Organization Address City/[facility]/ZIP Co de Phone Number [employer] ([facility]) [address] [place] [address] * (ABNORMAL) C-PEPTIDE (12/06/2024 5:39 AM DIGITAL MEDIA DIRECTOR) Only the most recent of2 resultswithin the time period is included. [facility] C-Peptide 6.9(H) 0.5 - 3.3 ng/mL 12/08/2024 9:16 PM DIGITAL MEDIA DIRECTOR [facility] ([facility]) Comment: INTERPRETIVE INFORMATION: Serum, C-Peptide Reference Interval applies to fasting specimens. To convert to nmol/L, multiply by 0.33 Performed By: [facility] [address] [place] [address] Track Laborer: Armando Lowe MD, PhD CLIA Number: [id number] Blood BLOOD SPECIMEN / Unknown Lab Venipuncture / Unknown 12/06/2024 5:39 AM DIGITAL MEDIA DIRECTOR 12/06/2024 5:58 AM DIGITAL MEDIA DIRECTOR Juancarlos Lujan MD LAB - CHEMISTRY ORDUlysses RIVAS Performing Organization Address [facility]/ZIP Co de Phone Number [facility]) [address] [place] [address] * (ABNORMAL) PROINSULIN (12/06/2024 5:39 AM DIGITAL MEDIA DIRECTOR) Only the most recent of2 resultswithin the time period is included. [facility] Proinsulin 10.1(H) <=7.2 pmol/L 12/10/2024 7:21 AM DIGITAL MEDIA DIRECTOR [facility] ([facility]) Comment: Performed By: [facility] [address] [place] [address] Track Laborer: Armando Lowe MD, PhD CLIA Number: [id number] Blood BLOOD SPECIMEN / Unknown Lab Venipuncture / Unknown 12/06/2024 5:39 AM DIGITAL MEDIA DIRECTOR 12/06/2024 5:58 AM DIGITAL MEDIA DIRECTOR Juancarlos Lujan MD LAB - CHEMISTRY JOHN PAUL RIVAS Performing Organization Address [facility]/ZIP Co de Phone Number [facility]) [address] [place] [address] * HYDROXYBUTYRATE BETA (12/06/2024 5:39 AM DIGITAL MEDIA DIRECTOR) Only the most recent of3 resultswithin the time period is included. Beta-Hydroxybu tyrate <0.50 <0.50 mmol/L 12/06/2024 6:29 AM DIGITAL MEDIA DIRECTOR [facility] Blood BLOOD SPECIMEN / Unknown Lab Venipuncture / Unknown 12/06/2024 5:39 AM DIGITAL MEDIA DIRECTOR 12/06/2024 6:02 AM DIGITAL MEDIA DIRECTOR Juancarlos Lujan MD LAB - CHEMISTRY JOHN PAUL RIVAS Performing Organization Address [facility]/ZIP Co de Phone Number [address] [address], [facility] [phone] * CORTISOL BLOOD AM (12/06/2024 5:39 AM DIGITAL MEDIA DIRECTOR) Cortisol AM 11.6 3.7 - 19.4 ug/dL 12/06/2024 6:47 AM DIGITAL MEDIA DIRECTOR [facility] Blood BLOOD SPECIMEN / Unknown Lab Venipuncture / Unknown 12/06/2024 5:39 AM DIGITAL MEDIA DIRECTOR 12/06/2024 6:02 AM DIGITAL MEDIA DIRECTOR Narrative [facility] - 12/06/2024 6:47 AM DIGITAL MEDIA DIRECTOR Normal cortisol levels are generally highest in the morning hours and lowest from late evening through the munitions handler 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 The PM measurements of cortisol run approximately one-half to one-third of the AM values. Juancarlos Lujan MD LAB - CHEMISTRY JOHN PAUL RIVAS Performing Organization Address [facility]/ZIP Co de Phone Number [address] [address], [facility] [phone] * US Abdomen Limited (12/04/2024 11:40 AM DIGITAL MEDIA DIRECTOR) Anatomical Region Laterality Modality Abdomen Ultrasound 12/04/2024 11:4 9 AM DIGITAL MEDIA DIRECTOR Impressions 12/04/2024 1:29 PM DIGITAL MEDIA DIRECTOR IMPRESSION: 1. Hepatic cirrhosis with sequela of portal hypertension including moderate volume ascites. 2. No cholelithiasis. 3. Moderate to large volume ascites. > Interpreting Provider: Patsy Orellana MD on 12/04/2024 1:29 PM Narrative 12/04/2024 1:29 PM DIGITAL MEDIA DIRECTOR PROCEDURE: US ABDOMEN LIMITED DATE/TIME OF EXAM: 12/04/2024 11:40 AM CLINICAL INFORMATION: None relevant/not provided if blank. Indication: K74.60: Hepatic cirrhosis, unspecified hepatic cirrhosis type, unspecified whether ascites present (HCC) Additional History: COMPARISON: Ultrasound from 10/25/2024 TECHNIQUE: Real-time ultrasound of the upper abdomen with DICOM image capture performed by cardiac cath lab radiology technologist. FINDINGS: The liver is coarse in [...] abdomen with DICOM image capture performed by cardiac cath lab radiology technologist. FINDINGS: The liver is coarse in [...] * CARDIAC EKG ORDER (12/04/2024 11:29 AM DIGITAL MEDIA DIRECTOR) Only the most recent of2 resultswithin the time period is included. Narrative 12/04/2024 11:29 AM DIGITAL MEDIA DIRECTOR Ordered by an unspecified provider. Scanned Document CARDIAC SERVICES ORD ERABLES * UREA NITROGEN URINE RANDOM (12/04/2024 9:39 AM DIGITAL MEDIA DIRECTOR) Only the most recent of2 resultswithin the time period is included. Urea Nitrogen Random Urine 361 Not Established mg/dL 12/04/2024 11:02 AM DIGITAL MEDIA DIRECTOR [facility] Urine URINE SPECIMEN OBTAINED BY CLEAN CATCH PROCEDURE / Unknown Collection / Unknown 12/04/2024 9:39 AM DIGITAL MEDIA DIRECTOR 12/04/2024 10:13 AM DIGITAL MEDIA DIRECTOR Juancarlos Lujan MD LAB - URINE CHEMISTR Y ORDERABLES [address] [address], [facility] [phone] * FOLATE (12/04/2024 9:38 AM DIGITAL MEDIA DIRECTOR) Only the most recent of2 resultswithin the time period is included. Folate 10.1 7.0 - 31.4 ng/mL 12/04/2024 11:27 AM DIGITAL MEDIA DIRECTOR [facility] Blood BLOOD SPECIMEN / Unknown Venipuncture / Unknown 12/04/2024 9:38 AM DIGITAL MEDIA DIRECTOR 12/04/2024 10:14 AM DIGITAL MEDIA DIRECTOR Juancarlos Lujan MD LAB - CHEMISTRY ORDE RABLES [address] [address], [place] [phone] * (ABNORMAL) VITAMIN B12 (12/04/2024 9:38 AM DIGITAL MEDIA DIRECTOR) Only the most recent of2 resultswithin the time period is included. Vitamin B12 1,880(H) 213 - 816 pg/mL 12/04/2024 11:27 AM [facility] Blood BLOOD SPECIMEN / Unknown Venipuncture / Unknown 12/04/2024 9:38 AM DIGITAL MEDIA DIRECTOR 12/04/2024 10:14 AM DIGITAL MEDIA DIRECTOR Juancarlos Lujan MD LAB - CHEMISTRY JOHN PAUL RIVAS [address] [address], [place] [phone] * (ABNORMAL) IRON + TRANSFERRIN PANEL (12/04/2024 9:38 AM DIGITAL MEDIA DIRECTOR) Iron 64 50 - 175 ug/dL 12/04/2024 10:48 AM [facility] Transferrin 150(L) 174 - 382 mg/dL 12/04/2024 10:48 AM [facility] Transferrin Saturation % 34 16 - 50 % 12/04/2024 10:48 AM [facility] TIBC Calculated 188(L) 240 - 450 ug/dL 12/04/2024 10:48 AM [facility] Blood BLOOD SPECIMEN / Unknown Venipuncture / Unknown 12/04/2024 9:38 AM DIGITAL MEDIA DIRECTOR 12/04/2024 10:15 AM DIGITAL MEDIA DIRECTOR Juancarlos Lujan MD LAB - CHEMISTRY JOHN PAUL RIVAS Performing Organization Address City/[facility]/ZIP Co de Phone Number [address] [address], [place] [phone] * (ABNORMAL) FERRITIN (12/04/2024 9:38 AM DIGITAL MEDIA DIRECTOR) Ferritin 339(H) 22 - 275 ng/mL 12/04/2024 11:05 AM [facility] Blood BLOOD SPECIMEN / Unknown Venipuncture / Unknown 12/04/2024 9:38 AM DIGITAL MEDIA DIRECTOR 12/04/2024 10:15 AM DIGITAL MEDIA DIRECTOR Juancarlos Lujan MD LAB - CHEMISTRY JOHN PAUL RIVAS [address] [address], [facility] [phone] * (ABNORMAL) URINALYSIS REFLEX MICROSCOPIC REFLEX CULTURE (12/04/2024 12:17 AM DIGITAL MEDIA DIRECTOR) Only the most recent of3 resultswithin the time period is included. Color UA Yellow Straw, Yellow 12/04/2024 12:33 AM [facility] Clarity UA Clear Clear 12/04/2024 12:33 AM [facility] Specific [place] UA 1.010 1.005 - 1.030 12/04/2024 12:33 AM [facility] pH UA 5.0 5.0 - 8.0 pH 12/04/2024 12:33 AM [facility] Protein UA Negative Negative 12/04/2024 12:33 AM [facility] Glucose UA 1+(A) Negative 12/04/2024 12:33 AM [facility] Ketone UA Negative Negative 12/04/2024 12:33 AM [facility] Bilirubin UA Negative Negative 12/04/2024 12:33 AM [facility] Blood UA Negative Negative 12/04/2024 12:33 AM [facility] Nitrite UA Negative Negative 12/04/2024 12:33 AM [facility] Leukocyte Esterase Negative Negative 12/04/2024 12:33 AM [facility] Urobilinogen UA Negative Negative mg/dL 12/04/2024 12:33 AM [facility] Comment UA Microscopic not indicated. 12/04/2024 12:33 AM [facility] Urine URINE SPECIMEN OBTAINED BY CLEAN CATCH PROCEDURE / Unknown Collection / Unknown 12/04/2024 12:17 AM DIGITAL MEDIA DIRECTOR 12/04/2024 12:22 AM DIGITAL MEDIA DIRECTOR Narrative [facility] - 12/04/2024 12:33 AM DIGITAL MEDIA DIRECTOR Sarika Martin PA-C LAB - URINALY SIS ORDERABLES Performing Organization Address City/[facility]/ZIP Co de Phone Number [address] [address], [facility] [phone] * LYTES (NA K CL) URINE RANDOM PANEL (12/04/2024 12:17 AM DIGITAL MEDIA DIRECTOR) Only the most recent of2 resultswithin the time period is included. Sodium Urine 52 Not Established mmol/L 12/04/2024 12:47 AM [facility] Potassium Urine 22.9 Not Established mmol/L 12/04/2024 12:47 AM [facility] Chloride Random Urine 82 Not Established mmol/L 12/04/2024 12:47 AM [facility] Urine URINE SPECIMEN OBTAINED BY CLEAN CATCH PROCEDURE / Unknown Collection / Unknown 12/04/2024 12:17 AM DIGITAL MEDIA DIRECTOR 12/04/2024 12:22 AM DIGITAL MEDIA DIRECTOR Juancarlos Lujan MD LAB - URINE CHEMISTR Y ORDERABLES [address] [address], [facility] [phone] * CREATININE URINE RANDOM (12/04/2024 12:17 AM DIGITAL MEDIA DIRECTOR) Only the most recent of2 resultswithin the time period is included. Creatinine Urine 55.70 Not Established mg/dL 12/04/2024 12:47 AM [facility] Urine URINE SPECIMEN OBTAINED BY CLEAN CATCH PROCEDURE / Unknown Collection / Unknown 12/04/2024 12:17 AM DIGITAL MEDIA DIRECTOR 12/04/2024 12:22 AM DIGITAL MEDIA DIRECTOR Juancarlos Lujan MD LAB - URINE CHEMISTR Y ORDERABLES [address] [address], [facility] [phone] * CULTURE BLOOD (12/03/2024 6:17 PM DIGITAL MEDIA DIRECTOR) Only the most recent of8 resultswithin the time period is included. Culture No growth day 5 ADOLPH 12/08/2024 11:01 PM DIGITAL MEDIA DIRECTOR [facility] MICROBIOLOGY Blood PERIPHERAL BLOOD / Unknown Lab Venipuncture / Unknown 12/03/2024 6:17 PM DIGITAL MEDIA DIRECTOR 12/03/2024 6:39 PM DIGITAL MEDIA DIRECTOR Homer Moran MD LAB - MICROBIO LOGY ORDERABLES [facility] MICROBIOLOGY [address] [place], [place] [address], [facility] [phone] * CT Head Wo Contrast (12/03/2024 4:56 PM DIGITAL MEDIA DIRECTOR) Only the most recent of4 resultswithin the time period is included. Anatomical Region Laterality Modality Head Computed Tomogra phy 12/03/2024 5:00 PM DIGITAL MEDIA DIRECTOR Impressions 12/03/2024 5:01 PM DIGITAL MEDIA DIRECTOR IMPRESSION: 1. No acute intracranial process. > Interpreting Provider: Abraham Mahajan MD on 12/03/2024 5:01 PM Narrative 12/03/2024 5:01 PM DIGITAL MEDIA DIRECTOR PROCEDURE: CT HEAD WO CONTRAST DATE/TIME [...] extra-axial fluid collections are identified. There is [id number] cerebral volume loss with associated ex vacuo [...] or extra-axial fluid collections are identified. Thereis jgzg-tj-imxyxhvw cerebral volume loss with associated ex vacuoventricular [...] HIGH SENSITIVE REFLEX 1HOUR (12/03/2024 3:26 PM DIGITAL MEDIA DIRECTOR) Only the most recent of3 resultswithin the time period is included. Troponin I High Sensitive 11 <=35 ng/L 12/03/2024 4:33 PM [facility] Delta Troponin I HS 12/03/2024 4:33 PM [facility] Comment:Delta value intentio santy not calculated. Baseline to 1 hour specimen collection interval exceeded. Blood BLOOD SPECIMEN / Unknown Venipuncture / Unknown 12/03/2024 3:26 PM DIGITAL MEDIA DIRECTOR 12/03/2024 3:56 PM DIGITAL MEDIA DIRECTOR Sarika Martin PA-C LAB - SENIOR C SOFTWARE DEVELOPER RY ORDERABLES Performing Organization Address City/[facility]/ZIP Co de Phone Number [facility] [address] [place] [address], [facility] [phone] * SARS-COV-2 (COVID-19) FLU A/B RSV PCR RAPID (12/03/2024 12:36 PM DIGITAL MEDIA DIRECTOR) COVID-19 PCR Not detected Not detected 12/03/19 1:56 PM DIGITAL MEDIA DIRECTOR [facility] Influenza A PCR Not detected Not detected 12/03/2024 1:56 PM DIGITAL MEDIA DIRECTOR [facility] Influenza B PCR Not detected Not detected 12/03/2024 1:56 PM DIGITAL MEDIA DIRECTOR [facility] RSV PCR Not detected Not detected 12/03/2024 1:56 PM DIGITAL MEDIA DIRECTOR [facility] Microbiology SPECIMEN FROM NASOPHARYNGEAL STRUCTURE / Unknown Collection / Unknown 12/03/2024 12:36 PM DIGITAL MEDIA DIRECTOR 12/03/2024 12:40 PM DIGITAL MEDIA DIRECTOR Narrative [facility] - 12/03/2024 1:56 PM DIGITAL MEDIA DIRECTOR This nucleic acid amplification assay has [...] - MICROBI OLOGY ORDERABLES Performing Organization Address [facility] Co de Phone Number [address] [address], [place] [phone] * PTT [facility] (12/03/2024 12:35 PM DIGITAL MEDIA DIRECTOR) Only the most recent of4 resultswithin the time period is included. APTT 26.4 23.0 - 38.4 Seconds 12/03/2024 1:06 PM [facility] Comment:Suggested therapeuti c range for full dose I.V. unfractionated heparin therapy for venous thromboembolism is 71 to 109 seconds. Blood BLOOD SPECIMEN / Unknown Venipuncture / Unknown 12/03/2024 12:35 PM DIGITAL MEDIA DIRECTOR 12/03/2024 12:43 PM DIGITAL MEDIA DIRECTOR Sarika Citlaly [employer] PA-C LAB - COAGULA TION ORDERABLES [facility] [address] [place] [address], [facility] [phone] * PT-INR [facility] (12/03/2024 12:35 PM DIGITAL MEDIA DIRECTOR) Only the most recent of16 resultswithin the time period is included. Pathologist [facility] PT 14.7 12.1 - 14.8 Seconds 12/03/2024 1:06 PM [facility] INR 1.2 See Comment 12/03/2024 1:06 PM DIGITAL MEDIA DIRECTOR [facility] Comment:The suggested therap eutic range for standard coumadin (warfarin) therapy is an INR of 2.0-3.0. For high-risk patients (Mechanical Mitral Valve Prosthesis, etc.), the suggested prophylactic therapeutic range is an INR of 2.5-3.5. Blood BLOOD SPECIMEN / Unknown Venipuncture / Unknown 12/03/2024 12:35 PM DIGITAL MEDIA DIRECTOR 12/03/2024 12:43 PM DIGITAL MEDIA DIRECTOR Sarika Citlaly [employer] PA-C LAB - COAGULA TION ORDERABLES [facility] [address] [place] [address], [place] [phone] * TROPONIN-I HIGH SENSITIVE BASELINE + 1HR (12/03/2024 12:35 PM DIGITAL MEDIA DIRECTOR) Only the most recent of3 resultswithin the time period is included. Pathologist [facility] Troponin I High Sensitive 11 <=35 ng/L 12/03/2024 1:15 PM DIGITAL MEDIA DIRECTOR [facility] Blood BLOOD SPECIMEN / Unknown Venipuncture / Unknown 12/03/2024 12:35 PM DIGITAL MEDIA DIRECTOR 12/03/2024 12:42 PM DIGITAL MEDIA DIRECTOR Sarika PERALTAC LAB - SENIOR C SOFTWARE DEVELOPER RY ORDERABLES Performing Organization Address City/[facility]/ZIP Co de Phone Number [address] [address], [facility] [phone] * AMMONIA (12/03/2024 12:35 PM DIGITAL MEDIA DIRECTOR) Only the most recent of6 resultswithin the time period is included. [facility] Ammonia 51 <=72 umol/L 12/03/2024 12:55 PM DIGITAL MEDIA DIRECTOR [facility] Blood BLOOD SPECIMEN / Unknown Venipuncture / Unknown 12/03/2024 12:35 PM DIGITAL MEDIA DIRECTOR 12/03/2024 12:55 PM DIGITAL MEDIA DIRECTOR Sarika Citlaly PERALT[employer] LAB - SENIOR C SOFTWARE DEVELOPER RY ORDERABLES Performing Organization Address [facility] Co de Phone Number [address] [address], [facility] [phone] * EKG 12-LEAD (12/03/2024 12:21 PM DIGITAL MEDIA DIRECTOR) Only the most recent of3 resultswithin the time period is included. [facility] Ventricular Rate 66 BPM [facility] Atrial Rate 66 BPM [facility] P-R Interval 110 ms [facility] QRS Duration ms 86 ms [facility] Q-T Interval ms 378 ms [facility] QTC Calculation (Bezet) 396 ms [facility] Calculated P [place] 15 degrees [facility] Calculated T [place] 85 degrees [facility] Interpretation EKG SINUS RHYTHM POSSIBLE INFERIOR INFARCT , AGE UNDETERMINED ANTERIOR INFARCT (CITED ON OR BEFORE 30-AUG-2024) ABNORMAL ECG WHEN COMPARED WITH ECG OF 06-NOV-2024 15:17, BORDERLINE CRITERIA FOR INFERIOR INFARCT ARE NOW PRESENT Confirmed by JESUS MESA, NESTOR ([id number]) on 12/13/2024 11:34:09 AM [facility] MUSE 12/03/2024 12:2 1 PM DIGITAL MEDIA DIRECTOR 12/13/2024 11:34 AM DIGITAL MEDIA DIRECTOR Sarika Boucher Mario PA-C ECG ORDERABLE S [facility] ANDREA * XR CHEST 2VW (12/03/2024 11:24 AM DIGITAL MEDIA DIRECTOR) Anatomical Region Laterality Modality Chest Digital Radiogra phy 12/03/2024 11:4 7 AM DIGITAL MEDIA DIRECTOR Narrative 12/03/2024 11:53 AM DIGITAL MEDIA DIRECTOR PROCEDURE: XR CHEST 2VW, DATE/TIME OF EXAM: 12/03/2024 11:33 AM, LOCATION [facility] INDICATION: R41.82: Altered mental status, unspecified [...] report was drafted by Yaw Alvarez MD (business services vice president) 12/03/2024 11:47 AM. ICandice MD have personally reviewed and interpreted this examination/study. > Interpreting Provider: Candice Gordon MD on 12/03/2024 11:53 AM Procedure Note Candice Gordon MD - 12/03/2024 PROCEDURE: XR CHEST 2VW, DATE/TIME OF EXAM: 12/03/2024 11:33 AM, LOCATION [facility] INDICATION: R41.82: Altered mental status, unspecified [...] report was drafted by Yaw Alvarez MD (business services vice president) 12/03/2024 11:47 AM. ICandice MD have personally reviewed and interpreted this examination/study. > Interpreting Provider: Candice Gordon MD on 12/03/2024 11:53 AM Sarika Martin PA-C DIAGNOSTIC IM AGING ORDERABLES * SYPHILIS ANTIBODY CASCADING REFLEX (11/07/2024 4:27 AM DIGITAL MEDIA DIRECTOR) Treponema pallidum Antibody Non-react pepe Non-react pepe 11/07/2024 5:23 AM DIGITAL MEDIA DIRECTOR [facility] Comment: No Laboratory evidence of syphilis infection. Note: Circulating antibodies may be low or undetectable in early infection. If recent exposure is suspected, re-draw sample in 2-4 weeks and repeat testing. Blood BLOOD SPECIMEN / Unknown Venipuncture / Unknown 11/07/2024 4:27 AM DIGITAL MEDIA DIRECTOR 11/07/2024 4:37 AM DIGITAL MEDIA DIRECTOR Juancarlos Lujan MD LAB - SEROLOGY ORDER DENISE [facility] [address] [place] [address], [facility] [phone] * HIV-1 HIV-2 ANTIBODY + HIV P24 AG PANEL (11/07/2024 4:27 AM DIGITAL MEDIA DIRECTOR) Pathologist [facility] HIV Antigen/Antibod y 1 & 2 Non-reacti ve Non-react pepe 11/07/2024 5:23 AM DIGITAL MEDIA DIRECTOR [facility] Comment:No Laboratory eviden ce of HIV infection. Blood BLOOD SPECIMEN / Unknown Venipuncture / Unknown 11/07/2024 4:27 AM DIGITAL MEDIA DIRECTOR 11/07/2024 4:37 AM DIGITAL MEDIA DIRECTOR Juancarlos Lujan MD LAB - CHEMISTRY [facility] Performing Organization Address City/[facility]/ZIP Co de Phone Number [address] [address], [facility] [phone] * TSH REFLEX FREE T4 (11/07/2024 4:27 AM DIGITAL MEDIA DIRECTOR) [facility] TSH 0.697 0.350 - 4.940 uIU/mL 11/07/2024 5:41 AM DIGITAL MEDIA DIRECTOR [facility] Blood BLOOD SPECIMEN / Unknown Venipuncture / Unknown 11/07/2024 4:27 AM DIGITAL MEDIA DIRECTOR 11/07/2024 4:39 AM DIGITAL MEDIA DIRECTOR Juancarlos Lujan MD LAB - CHEMISTRY [facility] PA[facility] RIVAS Performing Organization Address City/[facility]/ZIP Co de Phone Number [address] [address], [facility] [phone] * VITAMIN B1 (11/07/2024 4:27 AM DIGITAL MEDIA DIRECTOR) [facility] Vitamin B1 Whole Blood 96 70 - 180 nmol/L 11/09/2024 12:56 PM DIGITAL MEDIA DIRECTOR [employer] ([facility]) Comment: INTERPRETIVE INFORMATION: Vitamin B1, Whole Blood This assay measures the concentration of thiamine diphosphate (TDP), the primary active form of vitamin B1. Approximately 90 percent of vitamin B1 present in whole blood is TDP. Thiamine and thiamine monophosphate, which comprise the remaining 10 percent, are not measured. This test was developed and its performance characteristics determined by [employer]. It has not been cleared or approved by the [place] Food and Drug Administration. This test was performed in a CLIA certified laboratory and is intended for clinical purposes. Performed By: [facility] [address] [place] [address] Track Laborer: Armando Lowe MD, PhD CLIA Number: [id number] Blood BLOOD SPECIMEN / Unknown Venipuncture / Unknown 11/07/2024 4:27 AM DIGITAL MEDIA DIRECTOR 11/07/2024 4:37 AM DIGITAL MEDIA DIRECTOR Juancarlos Lujan MD LAB - CHEMISTRY [facility] ([facility]) [address] [place] [address], [facility] * (ABNORMAL) URINALYSIS W/MICROSCOPIC REFLEX TO CULTURE (11/06/2024 11:44 PM DIGITAL MEDIA DIRECTOR) Only the most recent of2 resultswithin the time period is included. Color UA Yellow Straw, Yellow 11/07/2024 12:16 AM [facility] Clarity UA Clear Clear 11/07/2024 12:16 AM [facility] Specific [place] UA 1.011 1.005 - 1.030 11/07/2024 12:16 AM [facility] pH UA 5.0 5.0 - 8.0 pH 11/07/2024 12:16 AM [facility] Protein UA Negative Negative 11/07/2024 12:16 AM [facility] Glucose UA 3+(A) Negative 11/07/2024 12:16 AM [facility] Ketone UA Negative Negative 11/07/2024 12:16 AM [facility] Bilirubin UA Negative Negative 11/07/2024 12:16 AM [facility] Blood UA Negative Negative 11/07/2024 12:16 AM [facility] Nitrite UA Negative Negative 11/07/2024 12:16 AM [facility] Leukocyte Esterase Negative Negative 11/07/2024 12:16 AM [facility] Urobilinogen UA Negative Negative mg/dL 11/07/2024 12:16 AM [facility] RBC UA 0-2 None Seen, 0-2, 3-5 /HPF 11/07/2024 12:16 AM [facility] WBC UA 0-5 None Seen, 0-5 /HPF 11/07/2024 12:16 AM [facility] Bacteria UA Trace(A) None /HPF 11/07/2024 12:16 AM [facility] Squamous Epithelial Cells UA None Seen None Seen, 0-2, 3-5 /HPF 11/07/2024 12:16 AM [facility] Mucus UA 1+ /LPF 11/07/2024 12:16 AM [facility] Hyaline Casts UA 0-2 None Seen, 0-2 /LPF 11/07/2024 12:16 AM [facility] Urine URINE SPECIMEN OBTAINED BY CLEAN CATCH PROCEDURE / Unknown Collection / Unknown 11/06/2024 11:44 PM DIGITAL MEDIA DIRECTOR 11/07/2024 12:04 AM [facility] - 11/07/2024 12:16 AM [facility] Culture Not Indicated [place] Lydia Quintero MERCHANDISING REPRESENTATIVE-EXECUTIVE VICE PRESIDENT AND CHIEF FINANCIAL OFFICER LAB - URINALY SIS ORDERABLES Performing Organization Address [facility] Co de Phone Number [address] [phone] [phone] * URINE DRUG SCREEN IMMUNOASSAY (11/06/2024 11:43 PM DIGITAL MEDIA DIRECTOR) Pathologist [facility] Amphetamines Screen Urine Negative Negative: < 1000 ng/mL 11/07/2024 12:43 AM [facility] Barbiturates Screen Urine Negative Negative: < 200 ng/mL 11/07/2024 12:43 AM [facility] Benzodiazepine Screen Urine Negative Negative: < 200 ng/mL 11/07/2024 12:43 AM [facility] Opiates Urine Negative Negative: < 300 ng/mL 11/07/2024 12:43 AM [facility] Cocaine Metabolites Urine Negative Negative: < 300 ng/mL 11/07/2024 12:43 AM [facility] Phencyclidine Screen Urine Negative Negative: < 25 ng/ml 11/07/2024 12:43 AM [facility] Cannabinoids Screen Urine Negative Negative: <50 ng/mL 11/07/2024 12:43 AM [facility] Methadone Screen Urine Negative Negative: < 300 ng/mL 11/07/2024 12:43 AM [facility] Fentanyl Screen Urine Negative Negative: <1.5 ng/mL 11/07/2024 12:43 AM [facility] Urine URINE / Unknown Collection / Unknown 11/06/2024 11:43 PM DIGITAL MEDIA DIRECTOR 11/07/2024 12:04 AM DIGITAL MEDIA DIRECTOR [facility] - 11/07/2024 12:43 AM DIGITAL MEDIA DIRECTOR The Urine Toxicology Screening Panel does not screen for Propoxyphene, Meprobamate, Carisoprodol, Trazodone, jold-fxb-awbetdm medications and/or volatiles (Acetone, Isopropanol, Methanol or Ethylene Glycol). Ethanol, Salicylate, Acetaminophen, Tricyclic Antidepressants and several therapeutic drugs may be individually assayed in serum or plasma specimen. Toxicology testing by the [facility] is an aid to medical diagnosis and treatment of patients. No documented chain of custody was maintained. Results are intended to be used for clinical purposes only. Juancarlos Lujan MD LAB - URINE CHEMISTR Y ORDERABLES Performing Organization Address [facility]/ZIP Co de Phone Number [address] [address], [facility] [phone] * PROTEIN BODY FLUID (11/06/2024 8:27 PM DIGITAL MEDIA DIRECTOR) Protein Fluid 1.2 Not Established For Fluids g/dL 11/06/2024 9:22 PM [facility] Fluid Type Peritoneal Fluid 11/06/2024 9:22 PM [facility] Fluid PERITONEAL FLUID / Unknown Collection / Unknown 11/06/2024 8:27 PM DIGITAL MEDIA DIRECTOR 11/06/2024 8:32 PM DIGITAL MEDIA DIRECTOR [facility] - 11/06/2024 9:22 PM DIGITAL MEDIA DIRECTOR The analytical performance of this test has been independently validated by the laboratory. A reference range has not been established for this fluid. Comparison of this result with the concentration in blood, serum or plasma is recommended. Homer Hallman MD LAB - BODY FLUID ORD ERABLES Performing Organization Address [facility] Co de Phone Number [address] [address], [facility] [phone] * GLUCOSE BODY FLUID (11/06/2024 8:27 PM DIGITAL MEDIA DIRECTOR) Glucose Fluid 126 Not Established For Fluids mg/dL 11/06/2024 9:55 PM [facility] Fluid Type Peritoneal Fluid 11/06/2024 9:55 PM [facility] Fluid PERITONEAL FLUID / Unknown Collection / Unknown 11/06/2024 8:27 PM DIGITAL MEDIA DIRECTOR 11/06/2024 8:32 PM DIGITAL MEDIA DIRECTOR [facility] - 11/06/2024 9:55 PM DIGITAL MEDIA DIRECTOR The analytical performance of this test has been independently validated by the laboratory. A reference range has not been established for this fluid. Comparison of this result with the concentration in blood, serum or plasma is recommended. Homer Hallman MD LAB - BODY FLUID ORD ERABLES [facility] [address] [place] [address], [facility] [phone] * DIFFERENTIAL MANUAL FLUID (11/06/2024 8:27 PM DIGITAL MEDIA DIRECTOR) Only the most recent of2 resultswithin the time period is included. Fluid Source Peritoneal 11/06/2024 10:05 PM [facility] Body Fluid Total Cell Count 100 x10E6/L 11/06/2024 10:05 PM [facility] Neutrophils Fluid Percent 16 % 11/06/2024 10:05 PM [facility] Lymphocytes Fluid Percent 43 % 11/06/2024 10:05 PM [facility] Comment:Reactive Lymphocytes present. Macrophages Fluid Percent 36 % 11/06/2024 10:05 PM [facility] Eosinophils Fluid Percent 5 % 11/06/2024 10:05 PM [facility] Fluid PERITONEAL FLUID / Unknown Collection / Unknown 11/06/2024 8:27 PM DIGITAL MEDIA DIRECTOR 11/06/2024 8:32 PM [facility] - 11/06/2024 10:05 PM DIGITAL MEDIA DIRECTOR No reference ranges established for body fluid differential cell counts. The test results must be integrated into the clinical context for interpretation. Homer Hallman MD LAB - BODY FLUID ORD ERABLES Performing Organization Address [facility] Co de Phone Number [address] [address], [facility] [phone] * CELL COUNT W DIFFERENTIAL FLUID (11/06/2024 8:27 PM DIGITAL MEDIA DIRECTOR) Only the most recent of2 resultswithin the time period is included. Fluid Source Peritoneal 11/06/2024 10:05 PM [facility] Fluid Appearance SLIGHTLY HAZY 11/06/2024 10:05 PM [facility] Fluid Color PALE YELLOW 11/06/2024 10:05 PM [facility] Total Nucleated Cells Fluid 92 Reference Range Not Established x10E6/L 11/06/2024 10:05 PM [facility] RBC Count Fluid <2,000 Reference Range Not Established x10E6/L 11/06/2024 10:05 PM [facility] Fluid PERITONEAL FLUID / Unknown Collection / Unknown 11/06/2024 8:27 PM DIGITAL MEDIA DIRECTOR 11/06/2024 8:32 PM DIGITAL MEDIA DIRECTOR [facility] - 11/06/2024 10:05 PM DIGITAL MEDIA DIRECTOR No reference ranges established for body fluid cell counts. Any reference ranges provided are derived from published literature. The test results must be integrated into the clinical context for interpretation. Homer Hallman MD LAB - BODY FLUID ORD ERABLES Performing Organization Address [facility] Co de Phone Number [address] [address], [facility] [phone] * (ABNORMAL) CULTURE FLUID+GRAM STAIN (11/06/2024 8:15 PM DIGITAL MEDIA DIRECTOR) Only the most recent of2 resultswithin the time period is included. Culture Light Achromobacter species(AA) ADOLPH 11/10/2024 4:24 AM [facility]CRO[facility] Comment:Isolate is multi tammy g resistant organism (MDRO). Gram Stain Light Red blood cells 11/10/2024 4:24 AM DIGITAL MEDIA DIRECTOR [facility] MICROBIOLOGY Gram Stain Rare Polymorphonuclear cells 11/10/2024 4:24 AM [facility] Gram Stain No organisms seen 025 4:24 AM DIGITAL MEDIA DIRECTOR [facility]CRO[facility] Other PERITONEAL FLUID / Unknown Collection / Unknown 11/06/2024 8:15 PM DIGITAL MEDIA DIRECTOR 11/06/2024 8:32 PM DIGITAL MEDIA DIRECTOR Narrative [facility] - 11/10/2024 4:24 AM DIGITAL MEDIA DIRECTOR This isolate is a multidrug resistant [...] Homer Hallman MD LAB - MICROBIOLOGY O RDWESTONBLES [facility] [address] [place], [address] [phone] * Paracentesis (11/06/2024 6:28 PM DIGITAL MEDIA DIRECTOR) Narrative Homer Hallman MD - 11/06/2024 6:28 PM DIGITAL MEDIA DIRECTOR Homer Hallman MD 11/06/2024 8:11 PM Paracentesis [...] (COVID-19)+INFLU A+B PCR RAPID (11/06/2024 3:40 PM DIGITAL MEDIA DIRECTOR) COVID-19 PCR Not detected Not detected 11/06/19 5:10 PM DIGITAL MEDIA DIRECTOR [facility] Influenza A Rapid JOHNNIE Not Detected Not Detected 11/06/2024 5:10 PM DIGITAL MEDIA DIRECTOR [facility] Influenza B JOHNNIE Rapid Not Detected Not Detected 11/06/2024 5:10 PM DIGITAL MEDIA DIRECTOR [facility] Microbiology SPECIMEN FROM NASOPHARYNGEAL STRUCTURE / Unknown Collection / Unknown 11/06/2024 3:40 PM DIGITAL MEDIA DIRECTOR 11/06/2024 4:29 PM DIGITAL MEDIA DIRECTOR Narrative [facility] - 11/06/2024 5:10 PM DIGITAL MEDIA DIRECTOR Influenza assay performed by Nucleic Acid [...] acid amplification assay performance was validated by [facility]. This test has been authorized by the [...] Hallman MD LAB - MICROBIOLOGY O RDERABLES [facility] [place] [address], [facility] [phone] * XR Chest 1Vw Portable (11/06/2024 2:29 PM DIGITAL MEDIA DIRECTOR) Only the most recent of4 resultswithin the time period is included. Anatomical Region Laterality Modality Chest Digital Radiogra phy 11/06/2024 2:35 PM DIGITAL MEDIA DIRECTOR Narrative 11/06/2024 2:46 PM DIGITAL MEDIA DIRECTOR PROCEDURE: XR CHEST 1VW PORTABLE, DATE/TIME OF EXAM: 11/06/2024 2:30 PM, LOCATION [facility] INDICATION: G93.40: Encephalopathy, unspecified type ADDITIONAL [...] pneumothorax. Report dictated by Jonathan Torres MD, (Data Miner). I, Christophe Rahman MD have personally reviewed and interpreted this examination/study. > Interpreting Provider: Christophe Rahman MD on 11/06/2024 2:46 PM Procedure Note Christophe Rahman MD - 11/06/2024 PROCEDURE: XR CHEST 1VW PORTABLE, DATE/TIME OF EXAM: 11/06/2024 2:30 PM, LOCATION [facility] INDICATION: G93.40: Encephalopathy, unspecified type ADDITIONAL [...] pneumothorax. Report dictated by Jonathan Torres MD, (Data Miner). I, Christophe Rahman MD have personally reviewed and interpreted this examination/study. > Interpreting Provider: Christophe Rahman MD on 11/06/2024 2:46 PM Homer Hallman MD DIAGNOSTIC IMAGING O RDERABLES * LIPASE BLOOD (11/06/2024 12:54 PM DIGITAL MEDIA DIRECTOR) Only the most recent of2 resultswithin the time period is included. [facility] Lipase 16 8 - 78 U/L 11/06/2024 1:37 PM [facility] Blood BLOOD SPECIMEN / Unknown Venipuncture / Unknown 11/06/2024 12:54 PM DIGITAL MEDIA DIRECTOR 11/06/2024 1:07 PM DIGITAL MEDIA DIRECTOR Narrative [facility] - 11/06/2024 1:37 PM DIGITAL MEDIA DIRECTOR Lipase results from the [employer] analyzer may not be comparable with other methodologies. [place] Quintero APRN-EXECUTIVE VICE PRESIDENT AND CHIEF FINANCIAL OFFICER LAB - SENIOR C SOFTWARE DEVELOPER RY ORDERABLES [address] [address], [facility] [phone] * (ABNORMAL) CBC W/O DIFFERENTIAL (10/28/2024 6:14 AM DIGITAL MEDIA DIRECTOR) Only the most recent of5 resultswithin the time period is included. Pathologist [facility] WBC 3.0(L) 4.0 - 10.7 x10E9/L 10/28/2024 6:55 AM [facility] RBC Count 2.87(L) 4.30 - 5.80 x10E12/L 10/28/2024 6:55 AM [facility] Hemoglobin 8.9(L) 13.3 - 17.5 g/dL 10/28/2024 6:55 AM [facility] Hematocrit 26.5(L) 38.7 - 51.1 % 10/28/2024 6:55 AM [facility] MCV 92.3 80.0 - 98.0 fL 10/28/2024 6:55 AM [facility] MCH 31.0 26.7 - 33.6 pg 10/28/2024 6:55 AM [facility] MCHC 33.6 31.7 - 36.3 g/dL 10/28/2024 6:55 AM [facility] RDW-CV 16.5(H) 11.3 - 14.8 % 10/28/2024 6:55 AM [facility] Platelet Count 109(L) 150 - 420 x10E9/L 10/28/2024 6:55 AM [facility] MPV 10.9 7.8 - 11.4 fL 10/28/2024 6:55 AM [facility] Blood BLOOD SPECIMEN / Unknown Lab Venipuncture / Unknown 10/28/2024 6:14 AM DIGITAL MEDIA DIRECTOR 10/28/2024 6:39 AM DIGITAL MEDIA DIRECTOR Rigoberto Mcclain MD LAB - HEMATOLOGY ORD ERABLES Performing Organization Address [facility] Co de Phone Number [address] [phone] [phone] * (ABNORMAL) VITAMIN D 1,25 DIHYDROXY (10/26/2024 4:00 AM DIGITAL MEDIA DIRECTOR) Pathologist [facility] Vitamin D, 1,25 Dihydroxy 18.8(L) 19.9 - 79.3 pg/mL 10/29/2024 12:19 AM DIGITAL MEDIA DIRECTOR [employer] ([facility]) Comment: INTERPRETIVE INFORMATION: Vitamin D, 1,25-Dihydroxy This test is primarily indicated during patient evaluation for hypercalcemia and renal failure. A normal result does not rule out Vitamin D deficiency. The recommended test for diagnosing Vitamin D deficiency is Vitamin D 25-hydroxy. Performed By: [facility] [address] [place] [address] Track Laborer: Armando Lowe MD, PhD CLIA Number: [id number] Blood BLOOD SPECIMEN / Unknown Venipuncture / Unknown 10/26/2024 4:00 AM DIGITAL MEDIA DIRECTOR 10/26/2024 4:10 AM DIGITAL MEDIA DIRECTOR Shravan Jessica MD LAB - CHEMISTRY OR DERABLES [employer] ([facility]) [address] [place] [address], [facility] * SODIUM URINE RANDOM (10/25/2024 10:40 AM DIGITAL MEDIA DIRECTOR) Sodium Urine 30 Not Established mmol/L 10/25/2024 11:05 AM DIGITAL MEDIA DIRECTOR [facility] Urine URINE SPECIMEN OBTAINED BY CLEAN CATCH PROCEDURE / Unknown Collection / Unknown 10/25/2024 10:40 AM DIGITAL MEDIA DIRECTOR 10/25/2024 10:47 AM DIGITAL MEDIA DIRECTOR Shravan Jessica MD LAB - URINE CHEMIS TRY ORDERABLES [place] [id number] [place] [address], [facility] [phone] * US Abdomen Ltd W Comp Doppler (10/25/2024 8:20 AM DIGITAL MEDIA DIRECTOR) Anatomical Region Laterality Modality Abdomen Ultrasound 10/25/2024 12:3 6 PM DIGITAL MEDIA DIRECTOR Impressions 10/27/2024 1:43 AM DIGITAL MEDIA DIRECTOR IMPRESSION: 1.Hepatic cirrhosis with sequela of portal hypertension including moderate to large volume ascites. 2.Mildly decreased velocity of flow within the main portal vein (13.9 cm/s). No portal vein thrombosis. Otherwise, normal hepatic Doppler evaluation. 3.No evidence of cholelithiasis or acute cholecystitis. > Dictated by Tom Barreto DO,(radiology ct technologist). I, Lalo St MD have personally reviewed and interpreted this examination/study. > Interpreting Provider: Lalo St MD on 10/27/2024 1:43 AM Narrative 10/27/2024 1:43 AM DIGITAL MEDIA DIRECTOR PROCEDURE: US ABDOMEN LTD W COMP DOPPLER, DATE/TIME OF EXAM: 10/25/2024 8:54 AM, LOCATION [facility] INDICATION: K76.82: Hepatic encephalopathy (HCC) Ordering [...] DOPPLER, DATE/TIME OF EXAM:10/25/2024 8:54 AM, LOCATION [facility] INDICATION: K76.82: Hepatic encephalopathy (HCC) Ordering [...] cholecystitis. > Dictated by Tom Barreto DO,(radiology ct technologist). I, Lalo St MD have personally reviewed and interpreted this examination/study. > Interpreting Provider: Lalo St MD on 10/27/2024 1:43 AM Rigoberto Mcclain MD ORDERABLES * PTH INTACT W/O CALCIUM (10/25/2024 4:54 AM DIGITAL MEDIA DIRECTOR) PTH Intact 13.2 8.0 - 77.0 pg/mL 10/25/2024 6:19 AM DIGITAL MEDIA DIRECTOR [facility] Blood BLOOD SPECIMEN / Unknown Lab Venipuncture / Unknown 10/25/2024 4:54 AM DIGITAL MEDIA DIRECTOR 10/25/2024 5:46 AM DIGITAL MEDIA DIRECTOR Rigoberto Mcclain MD LAB - [facility] Organization Address City/State/ZIP Co de Phone Number [address] [address], [facility] [phone] * (ABNORMAL) PTH RELATED PEPTIDE (10/25/2024 4:54 AM DIGITAL MEDIA DIRECTOR) PTH Related Peptide 3.1(H) 0.0 - 2.3 pmol/L 11/03/2024 1:05 PM DIGITAL MEDIA DIRECTOR [employer] ([facility]) Comment: INTERPRETIVE INFORMATION: Parathyroid Hormone-Related Peptide This test was developed and its performance characteristics determined by [employer]. It has not been cleared or approved by the US Food and Drug Administration. This test was performed in a CLIA certified laboratory and is intended for clinical purposes. Performed By: [facility] [address] [place], [place] [id number] Track Laborer: Armando Lowe MD, PhD CLIA Number: [id number] Blood BLOOD SPECIMEN / Unknown Lab Venipuncture / Unknown 10/25/2024 4:54 AM DIGITAL MEDIA DIRECTOR 10/25/2024 5:29 AM DIGITAL MEDIA DIRECTOR Rigoberto Mcclain MD LAB - CHEMISTRY JOHN PAUL RIVAS Performing Organization Address City/[facility]/ZIP Co de Phone Number [facility] ([facility]) [address] [place], [place] [address] * (ABNORMAL) VITAMIN D 25-HYDROXY (10/25/2024 4:54 AM DIGITAL MEDIA DIRECTOR) [facility] Vitamin D, 25 Hydroxy 27.0(L) 30.0 - 80.0 ng/mL 10/25/2024 6:33 AM DIGITAL MEDIA DIRECTOR [facility] Comment: The recommendations for 25-Hydroxy Vitamin D [...] Lab Venipuncture / Unknown 10/25/2024 4:54 AM DIGITAL MEDIA DIRECTOR 10/25/2024 5:29 AM DIGITAL MEDIA DIRECTOR Rigoberto Mcclain MD LAB - CHEMISTRY JOHN PAUL RIVAS [address] [address], [place] [phone] * LDH BLOOD (10/25/2024 4:54 AM DIGITAL MEDIA DIRECTOR) Only the most recent of2 resultswithin the time period is included. LDH Total 203 125 - 243 Units/L 10/25/2024 6:19 AM [facility] Blood BLOOD SPECIMEN / Unknown Lab Venipuncture / Unknown 10/25/2024 4:54 AM DIGITAL MEDIA DIRECTOR 10/25/2024 5:29 AM DIGITAL MEDIA DIRECTOR Rigoberto Mcclain MD LAB - CHEMISTRY JOHN PAUL RIVAS Performing Organization Address [facility] Co de Phone Number [address] [address], [facility] [phone] * (ABNORMAL) CALCIUM IONIZED WHOLE BLOOD (10/24/2024 8:47 AM DIGITAL MEDIA DIRECTOR) [facility] Calcium Ionized 1.54 mmol/L 10/24/2024 9:03 AM [facility] pH 7.41 7.35 - 7.45 pH 10/24/2024 9:03 AM [facility] Ionized Calcium pH Adjusted 1.55(H) 1.19 - 1.34 mmol/L 10/24/2024 9:03 AM [facility] Blood BLOOD SPECIMEN / Unknown Lab Venipuncture / Unknown 10/24/2024 8:47 AM DIGITAL MEDIA DIRECTOR 10/24/2024 8:58 AM DIGITAL MEDIA DIRECTOR Rigoberto Mcclain MD LAB - CHEMISTRY JOHN PAUL RIVAS Performing Organization Address [facility] Co de Phone Number [address] [address], [facility] [phone] * (ABNORMAL) HEMOGLOBIN A1C (10/24/2024 8:47 AM DIGITAL MEDIA DIRECTOR) Only the most recent of2 resultswithin the time period is included. Pathologist [facility] Hemoglobin A1c 7.9(H) <=5.6 % 10/24/2024 12:41 PM [facility] Estimated Average Glucose 180 mg/dL 10/24/2024 12:41 PM [facility] Comment: HbA1c Interpretation: Normal : < 5.7% Pre-diabetes: 5.7-6.4% Diabetes: Equal to or greater than 6.5% Test results diagnostic of diabetes should be repeated for confirmation. Treatment target values recommended by ADA and other clinical organizations should be used to evaluate metabolic control in patients. Reference: [place] [employer], Standards of Care in Diabetes -2020 In patients 70 years and older consider HbA1c target range of 7.0-7.5% (Reference: Armen López et al. JAMDA. 2012) The Sebia assay for the measurement of HbA1c is a National Glycohemoglobin Standardization Program (NGSP) certified method. Blood BLOOD SPECIMEN / Unknown Lab Venipuncture / Unknown 10/24/2024 8:47 AM DIGITAL MEDIA DIRECTOR 10/24/2024 9:01 AM DIGITAL MEDIA DIRECTOR Rigoberto Mcclain MD LAB - CHEMISTRY JOHN PAUL RIVAS Performing Organization Address City/[facility]/ZIP Co de Phone Number [address] [address], [facility] [phone] * LACTIC ACID BLOOD (10/24/2024 8:47 AM DIGITAL MEDIA DIRECTOR) Only the most recent of5 resultswithin the time period is included. Lactic Acid-Stat 2.0 <=2.0 mmol/L 10/24/2024 9:33 AM DIGITAL MEDIA DIRECTOR [facility] Blood BLOOD SPECIMEN / Unknown Lab Venipuncture / Unknown 10/24/2024 8:47 AM DIGITAL MEDIA DIRECTOR 10/24/2024 9:02 AM DIGITAL MEDIA DIRECTOR Rigoberto Mcclain MD LAB - CHEMISTRY JOHN PAUL RIVAS Performing Organization Address City/[facility]/ZIP Co de Phone Number [address] [address], [place] [phone] * (ABNORMAL) BLOOD GASES REINA + COOX PANEL (10/23/2024 6:25 PM DIGITAL MEDIA DIRECTOR) Only the most recent of2 resultswithin the time period is included. pH Venous 7.45(H) 7.32 - 7.42 pH 10/23/2024 6:44 PM DIGITAL MEDIA DIRECTOR [facility] pO2 Venous 86(H) 35 - 40 mmHg 10/23/2024 6:44 PM [facility] pCO2 Venous 23(L) 40 - 50 mmHg 10/23/2024 6:44 PM [facility] HCO3 Venous 16.0(L) 20 - 30 mmol/L 10/23/2024 6:44 PM [facility] Base Excess Venous -6.8(L) -2.0 - 2.0 mmol/L 10/23/2024 6:44 PM [facility] Oxyhemoglobin Venous 96.1 % 10/05 6:44 PM [facility] Deoxyhemoglobin (HHB) Venous % 2.1 % 10/23/2024 6:44 PM [facility] Methemoglobin 0.8 0.0 - 2.0 % 10/23/2024 6:44 PM [facility] Carboxyhemoglobin 1.0 0.0 - 2.0 % 2023 6:44 PM [facility] O2 Content Venous 12.4 Interpret within clinical context ml/dL 10/23/2024 6:44 PM [facility] Hemoglobin by COOX 9.1(L) 12.0 - 17.6 g/dL 10/23/2024 6:44 PM [facility] O2 Saturation Venous 98 >=70 % 10/05 6:44 PM [facility] FI O2 Mixed Venous 21.0 % 2023 6:44 PM [facility] Blood BLOOD SPECIMEN / Unknown Lab Venipuncture / Unknown 10/23/2024 6:25 PM DIGITAL MEDIA DIRECTOR 10/23/2024 6:36 PM [facility] - 10/23/2024 6:44 PM DIGITAL MEDIA DIRECTOR Carboxyhemoglobin Normal Concentration: Non-smokers: 0-2%; Smokers: 0-9%; Toxic: >20% Rigoberto Mcclain MD LAB - BLOOD GASES OR DERABLES [facility] [address] [place] [address], [facility] [phone] * (ABNORMAL) LACTIC ACID BLOOD REFLEX TO REPEAT (10/23/2024 6:11 PM DIGITAL MEDIA DIRECTOR) Only the most recent of3 resultswithin the time period is included. Lactic Acid-Stat 7.9(HH) <=2.0 mmol/L 10/23/2024 6:46 PM DIGITAL MEDIA DIRECTOR [facility] Blood BLOOD SPECIMEN / Unknown Lab Venipuncture / Unknown 10/23/2024 6:11 PM DIGITAL MEDIA DIRECTOR 10/23/2024 6:18 PM DIGITAL MEDIA DIRECTOR Paris G Quintero MERCHANDISING REPRESENTATIVE-EXECUTIVE VICE PRESIDENT AND CHIEF FINANCIAL OFFICER LAB - SENIOR C SOFTWARE DEVELOPER RY ORDERABLES [facility] [address] [place] [address], [facility] [phone] * Paracentesis (10/23/2024 4:59 PM DIGITAL MEDIA DIRECTOR) Narrative Muna Waller MD - 10/23/2024 4:59 PM DIGITAL MEDIA DIRECTOR Elma Deutsch MD 10/23/2024 5:01 PM [...] 7 - 26 mg/dL 09/02/2024 8:23 AM [facility] Creatinine 0.69(L) 0.71 - 1.16 mg/dL 09/02/2024 8:23 AM T [facility] Sodium 135(L) 136 - 145 mmol/L 09/02/2024 8:23 AM [facility] Potassium 3.5 3.5 - 4.5 mmol/L 09/02/2024 8:23 AM [facility] Chloride 107 98 - 107 mmol/L 09/02/2024 8:23 AM [facility] CO2 23 22 - 29 mmol/L 09/02/2024 8:23 AM [facility] Glucose 193(H) 70 - 99 mg/dL 09/02/2024 8:23 AM [facility] Albumin 2.3(L) 3.4 - 5.0 g/dL 09/02/2024 8:23 AM [facility] Calcium 8.9 8.4 - 10.2 mg/dL 09/02/2024 8:23 AM [facility] Phosphorus 2.1(L) 2.8 - 5.1 mg/dL 09/02/2024 8:23 AM [facility] Anion Gap 5(L) 6 - 16 09/02/2024 8:23 AM [facility] BUN/Creatinine Ratio 26(H) 7 - 23 09/02/2024 8:23 AM [facility] Osmolality Calculated 287 275 - 295 mOsm/kg 09/02/2024 8:23 AM [facility] eGFR by CKD-EPI >90 >=90 mL/min/1.7 3 m2 09/02/2024 8:23 AM [facility] Blood BLOOD SPECIMEN / Unknown Lab Venipuncture / Unknown 09/02/2024 6:57 AM CDT 09/02/2024 7:57 AM CDT Juancarlos Lujan MD LAB - CHEMISTRY JOHN PAUL RIVAS [facility] Organization Address City/State/ZIP Co de Phone Number [facility] [address] [place] [address], [facility] [phone] * CULTURE URINE (08/31/2024 12:37 AM CDT) Culture Urine <10,000 CFU/mL urogenital sujit ADOLPH 09/01/2024 7:51 AM T [facility] MICRO[facility]OLOG[facility] Urine URINE SPECIMEN OBTAINED BY CLEAN CATCH PROCEDURE / Unknown Collection / Unknown 08/31/2024 12:37 AM CDT 08/31/2024 12:56 AM CDT Juancarlos Lujan MD LAB - MICROBIOLOGY O RDERABLES [facility] MICRO[facility] [address] [place] [address], [facility] [phone] * (ABNORMAL) BASIC METABOLIC PANEL (CALCIUM TOTAL) (08/30/2024 8:04 PM CDT) BUN 37(H) 7 - 26 mg/dL 08/30/2024 8:57 PM [facility] Creatinine 1.06 0.71 - 1.16 mg/dL 08/30/2024 8:57 PM [facility] Sodium 133(L) 136 - 145 mmol/L 08/30/2024 8:57 PM [facility] Potassium 4.5 3.5 - 4.5 mmol/L 08/30/2024 8:57 PM [facility] Chloride 101 98 - 107 mmol/L 08/30/2024 8:57 PM [facility] CO2 18(L) 22 - 29 mmol/L 08/30/2024 8:57 PM [facility] Glucose 211(H) 70 - 99 mg/dL 08/30/2024 8:57 PM [facility] Calcium 9.8 8.4 - 10.2 mg/dL 08/30/2024 8:57 PM [facility] Anion Gap 14 6 - 16 08/30/2024 8:57 PM [facility] BUN/Creatinine Ratio 35(H) 7 - 23 08/30/2024 8:57 PM [facility] Osmolality Calculated 291 275 - 295 mOsm/kg 08/30/2024 8:57 PM [facility] eGFR by CKD-EPI 71(L) >=90 mL/min/1.7 3 m2 08/30/2024 8:57 PM [facility] Blood BLOOD SPECIMEN / Unknown Venipuncture / Unknown 08/30/2024 8:04 PM CDT 08/30/2024 8:14 PM CDT Kayli Kennedy MD LAB - CHEMISTRY JOHN PAUL RIVAS [facility] [address] [place] [address], [facility] [phone] * (ABNORMAL) URINALYSIS REFLEX TO MICROSCOPIC NO CULTURE (08/16/2024 12:45 PM CDT) Color UA Yellow Straw, Yellow 08/16/2024 1:17 PM [facility] Clarity UA Clear Clear 08/16/2024 1:17 PM [facility] Specific [place] UA 1.018 1.005 - 1.030 08/16/2024 1:17 PM [facility] pH UA 5.0 5.0 - 8.0 pH 08/16/2024 1:17 PM [facility] Protein UA Negative Negative 08/16/2024 1:17 PM [facility] Glucose UA 3+(A) Negative 08/16/2024 1:17 PM [facility] Ketone UA Negative Negative 08/16/2024 1:17 PM [facility] Bilirubin UA Negative Negative 08/16/2024 1:17 PM [facility] Blood UA Negative Negative 08/16/2024 1:17 PM [facility] Nitrite UA Negative Negative 08/16/2024 1:17 PM [facility] Leukocyte Esterase Negative Negative 08/16/2024 1:17 PM [facility] Urobilinogen UA Negative Negative mg/dL 08/16/2024 1:17 PM [facility] RBC UA 0-2 None Seen, 0-2, 3-5 /HPF 08/16/2024 1:17 PM [facility] WBC UA 0-5 None Seen, 0-5 /HPF 08/16/2024 1:17 PM [facility] Squamous Epithelial Cells UA None Seen None Seen, 0-2, 3-5 /HPF 08/16/2024 1:17 PM [facility] Mucus UA 1+ /LPF 08/16/2024 1:17 PM [facility] Hyaline Casts UA 3-5(A) None Seen, 0-2 /LPF 08/16/2024 1:17 PM CDT [facility] Urine URINE SPECIMEN OBTAINED BY CLEAN CATCH PROCEDURE / Unknown Collection / Unknown 08/16/2024 12:45 PM CDT 08/16/2024 12:59 PM CDT Narrative [facility] - 08/16/2024 1:17 PM CDT Talisha Pretty MD LAB - URINALYSIS ORDERABLES Performing Organization Address [facility] Co de Phone Number [address] [address], [facility] [phone] * (ABNORMAL) IMMUNOFIXATION BLOOD (06/26/2024 2:09 PM CDT) [facility] Immunofixation Serum Abnormal Pattern(A) Normal Pattern 06/30/2024 3:13 PM CDT [facility] Comment: Serum immunofixation electrophoresis shows polyclonal IgG, [...] CHEMISTRY JOHN PAUL RIVAS Performing Organization Address [facility] Co de Phone Number [address] [address], [facility] [phone] * (ABNORMAL) KAPPA/LAMBDA LITE CHAIN FREE PANEL (06/26/2024 2:09 PM CDT) Amoret Quant Free Light Chain 58.79(H) 3.30 - 19.40 mg/L 06/28/2024 7:41 AM CDT [employer] ([facility]) Comment: INTERPRETIVE INFORMATION: Amoret Qnt Free Light Chains Undetected antigen excess is a rare event but cannot be excluded. Free light chain results should always be interpreted in conjunction with other clinical and laboratory findings. Lambda Free Light Chain Quantitative 44.88(H) 5.71 - 26.30 mg/L 06/28/2024 7:41 AM CDT [facility]) Comment: INTERPRETIVE INFORMATION: Lambda Qnt Free Light Chains Undetected antigen excess is a rare event but cannot be excluded. Free light chain results should always be interpreted in conjunction with other clinical and laboratory findings. Amoret/Lambda Free Light Chain ratio 1.31 0.26 - 1.65 06/28/2024 7:41 AM CDT [facility]) Comment: Performed By: [facility] [address] [place] [address] Track Laborer: Armando Lowe MD, PhD CLIA Number: [id number] Blood BLOOD SPECIMEN / Unknown Lab Venipuncture / Unknown 06/26/2024 2:09 PM CDT 06/26/2024 2:10 PM CDT Lily James MD LAB - CHEMISTRY EWELINAE EVELYN [facility] Organization Address City/State/ZIP Co de Phone Number [facility]) [address] [place] [address], [facility] * (ABNORMAL) PROTEIN ELECTROPHORESIS BLOOD (06/26/2024 2:09 PM CDT) Interpretation Serum PE Abnormal Pattern(A) Normal Pattern 06/30/2024 3:13 PM CDT [facility] Comment: Serum capillary electrophoresis shows characteristic bands [...] - 8.3 g/dL 06/30/2024 3:13 PM CDT [facility] Albumin 2.7(L) 3.3 - 5.6 g/dL 06/30/2024 3:13 PM CDT [facility] Alpha-1 Globulins 0.5(H) 0.2 - 0.4 g/dL 06/30/2024 3:13 PM CDT [facility] Alpha-2 Globulins 0.8 0.5 - 1.0 g/dL 06/30/2024 3:13 PM CDT [facility] Beta Globulins 0.7 0.6 - 1.1 g/dL 06/30/2024 3:13 PM CDT [facility] Gamma Globulins 1.8(H) 0.6 - 1.6 g/dL 06/30/2024 3:13 PM CDT [facility] Blood BLOOD SPECIMEN / Unknown Lab Venipuncture / Unknown 06/26/2024 2:09 PM CDT 06/26/2024 2:10 PM CDT Lily James MD LAB - CHEMISTRY JOHN PAUL RIVAS Performing Organization Address City/[facility]/ZIP Co de Phone Number [address] [address], [place] [phone] * IGM BLOOD (06/26/2024 2:09 PM CDT) IgM 64 37 - 286 mg/dL 06/26/2024 2:44 PM CDT [facility] Blood BLOOD SPECIMEN / Unknown Lab Venipuncture / Unknown 06/26/2024 2:09 PM CDT 06/26/2024 2:10 PM CDT Lily James MD LAB - CHEMISTRY JOHN PAUL RIVAS Performing Organization Address City/[facility]/ZIP Co de Phone Number [address] [address], [place] [phone] * (ABNORMAL) IGG BLOOD (06/26/2024 2:09 PM CDT) IgG 2,181(H) 767 - 1,590 mg/dL 06/26/2024 2:44 PM CDT [facility] Blood BLOOD SPECIMEN / Unknown Lab Venipuncture / Unknown 06/26/2024 2:09 PM CDT 06/26/2024 2:10 PM CDT Lily James MD LAB - CHEMISTRY JOHN PAUL RIVAS [address] [address], [facility] [phone] * IGA BLOOD (06/26/2024 2:09 PM CDT) [facility] IgA 219 61 - 356 mg/dL 06/26/2024 2:44 PM CDT [facility] Blood BLOOD SPECIMEN / Unknown Lab Venipuncture / Unknown 06/26/2024 2:09 PM CDT 06/26/2024 2:10 PM CDT Lily James MD LAB - CHEMISTRY JOHN PAUL RIVAS Performing Organization Address [facility] Co de Phone Number [address] [address], [facility] [phone] * ALPHA FETOPROTEIN BLOOD TUMOR MARKER (06/17/2024 1:54 PM CDT) [facility] Alpha-Fetoprote in Tumor Marker <2.0 <=8.3 ng/mL 06/17/2024 3:41 PM CDT [facility] Comment: AFP values will vary depending on testing procedure used. Results are not comparable across different methods. AFP values obtained by [facility] using an AudioTrip Alinity Immunoassay. Blood BLOOD SPECIMEN / Unknown Lab Venipuncture / Unknown 06/17/2024 1:54 PM CDT 06/17/2024 2:51 PM CDT Rigoberto Mcclain MD LAB - CHEMISTRY JOHN PAUL RIVAS Performing Organization Address City/[facility]/ZIP Co de Phone Number [address] [address], [facility] [phone] * (ABNORMAL) NDDOF-2-AMENZKIUQDI BLOOD (06/17/2024 1:54 PM CDT) [facility] Usylq-7-Ubihin ypsin 247(H) 90 - 200 mg/dL 06/17/2024 3:15 PM CDT [facility] Blood BLOOD SPECIMEN / Unknown Lab Venipuncture / Unknown 06/17/2024 1:54 PM CDT 06/17/2024 2:56 PM CDT Rigoberto Mcclain MD LAB - CHEMISTRY JOHN PAUL RIVAS Performing Organization Address City/[facility]/ZIP Co de Phone Number [facility] [address] [place] [address], [facility] [phone] * HEPATITIS B SURFACE ANTIBODY (06/17/2024 1:54 PM CDT) Hepatitis B Virus Surface Antibody Non-react pepe Non-react pepe 06/17/2024 3:28 PM CDT [facility] Comment: < 8 mIU/mL Hepatitis B surface Antibody (HBsAb). Nonreactive for HBsAb - individual is considered not immune to Hepatitis B Virus infection. Hepatitis B Surface Antibody Quantitative 0.5 <8.0 mIU/mL 06/17/2024 3:28 PM CDT [facility] Comment: Hepatitis B Surface Antibody Numeric Result Interpretation: Nonreactive: <8.0 mIU/mL Indeterminate: 8.0 - 12.0 mIU/mL Reactive: >12.0 mIU/mL Blood BLOOD SPECIMEN / Unknown Lab Venipuncture / Unknown 06/17/2024 1:54 PM CDT 06/17/2024 2:56 PM CDT Rigoberto Mcclain MD LAB - CHEMISTRY JOHN PAUL RIVAS Performing Organization Address City/[facility]/ZIP Co de Phone Number [facility] [address] [place] [address], [facility] [phone] * HEPATITIS B CORE ANTIBODY TOTAL (06/17/2024 1:54 PM CDT) HBc Antibody Total Non-reacti ve Non-reacti ve 06/17/2024 3:28 PM CDT [facility] Blood BLOOD SPECIMEN / Unknown Lab Venipuncture / Unknown 06/17/2024 1:54 PM CDT 06/17/2024 2:56 PM CDT Rigoberto Mcclain MD LAB - CHEMISTRY JOHN PAUL RIVAS Performing Organization Address [facility]/ZIP Co de Phone Number [address] [address], [facility] [phone] * HEPATITIS B SURFACE ANTIGEN W RFLX CONFIRMATION (06/17/2024 1:54 PM CDT) [facility] Hepatitis B Virus Surface Antigen Non-reacti ve Non-reacti ve 06/17/2024 3:28 PM CDT [facility] Blood BLOOD SPECIMEN / Unknown Lab Venipuncture / Unknown 06/17/2024 1:54 PM CDT 06/17/2024 2:56 PM CDT Rigoberto Mcclain MD LAB - CHEMISTRY JOHN PAUL RIVAS Performing Organization Address [facility] Co de Phone Number [address] [address], [facility] [phone] * BILIRUBIN DIRECT (06/17/2024 1:54 PM CDT) [facility] Bilirubin Conjugated 0.3 0.1 - 0.5 mg/dL 06/17/2024 3:23 PM CDT [facility] Blood BLOOD SPECIMEN / Unknown Lab Venipuncture / Unknown 06/17/2024 1:54 PM CDT 06/17/2024 2:51 PM CDT Rigoberto Mcclain MD LAB - CHEMISTRY [facility] Performing Organization Address [facility] Co de Phone Number [address] [phone], [facility] [phone] * (ABNORMAL) HEPATITIS A ANTIBODY (06/17/2024 1:54 PM CDT) [facility] Hepatitis A Virus Antibody Total Positive( A) Negative 06/18/2024 9:49 PM CDT [employer] ([facility]) Comment: The positive anti-HAV is consistent with recent or remote Hepatitis A infection or antibody response to HAV vaccination. False positive anti-HAV can occur. Performed By: [facility] [address] [place] [id number] Track Laborer: Armando Lowe MD, PhD CLIA Number: [id number] Blood BLOOD SPECIMEN / Unknown Lab Venipuncture / Unknown 06/17/2024 1:54 PM CDT 06/17/2024 2:56 PM CDT Rigobetro Mcclain MD LAB - CHEMISTRY [facility]) [address] [place] [id number] [facility] * FLOW CYTOMETRY BONE MARROW (02/01/2024 9:30 AM CDT) Case Report Flow Cytometry Case: [id number] Authorizing Provider: Kadeem Mcclelland Collected: 02/01/2024 09:30 AM MD Bola Ordering Location: [facility] - Received: 02/01/2024 12:23 PM Pathology Lab Pathologist: Rosa Maria Murry MD Specimen: Bone Marrow 4 12:02 PM CDT [facility] Final Diagnosis Bone marrow, flow [...] reported B-cell lymphoma. 4 12:02 PM CDT [facility] Flow Cytometry Interpretation Viability: 85% [...] cytometry specimen has been reviewed for quality facilitator purposes. Please correlate with histologic review of the bone marrow ([id number]). 4 12:02 PM [facility] Flow Cytometry Results Differential Result Comment Flow Cell Count /uL 10,200 Total Viability % 85.0 Lymphocytes % 19 Dim CD45 Region % 5 Monocytes % 20 Granulocytes % 56 4 12:02 PM [facility] Reason for test Follicular lymphoma, unspecified, unspecified site (HCC) Non-Hodgkin lymphoma, unspecified, unspecified site (HCC) 4 12:02 PM [facility] Client Specimen ID # [id number] 4 12:02 PM [facility] Number of markers [...] Flow CD57 A-21 TCR-AB A-22 TCR-GD A-7 Amoret+CD19+ A-8 Lambda+CD19+ 4 12:02 PM [facility] Pathologist Location at [facility] 4 12:02 PM [facility] Disclaimer Test performed at [facility], [address] [place] [address], [address]. *The established laboratory minimum viability is 70%. [...] high complexity clinical testing. 12:02 PM CDT [facility] Embedded Images 12:02 PM CDT [facility] Pathology/Cytolo gy BONE MARROW SPECIMEN / Unknown 02/01/2024 9:30 AM CDT 02/01/2024 12:23 PM CDT Kadeem Mcclelland MD LAB - PATHO LOGY/CYTOLOGY ORDERABLES Performing Organization Address City/State/[facility] Co de Phone Number [facility] [address] [phone] * BONE MARROW BIOPSY (STL) (02/01/2024 8:32 AM CDT) Case Report Bone Marrow Patholog y Report Case: [id number] Authorizing Provider: Kadeem Mcclelland Collected: 02/01/2024 08:32 AM MD Bola Ordering Location: [facility] - Received: 02/04/2024 03:11 PM Pathology Lab Pathologist: Rosa Maria Murry MD Specimens: A) - Bone Marrow Clot B) - Bone Marrow Core 02/06/2024 12:21 PM CDT [facility] Final Diagnosis Bone marrow, [...] molecular data is needed. 02/06/2024 12:21 PM [facility] Peripheral Smear Description Manual [...] decreased. Platelet morphology: normal. 02/06/2024 12:21 PM [facility] Bone Marrow Aspirate Differential [...] stain): no ring sideroblasts. 02/06/2024 12:21 PM [facility] Bone Marrow Core Biopsy [...] similar to core biopsy. 02/06/2024 12:21 PM [facility] Flow Cytometry Summary Bone marrow, flow cytometric immunophenotyping ([id number]): - Mild T-cell aberrancy identified (see comment) [...] patient's reported B-cell lymphoma. 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 He presented for evaluation of pancytopenia. 02/06/2024 12:21 PM [facility] Materials Received Received are 21 slide(s) and 3 blocks labeled [id number] along with a copy of the outside pathology report. [place] [address] . All original materials are returned to the referring institution, along with a copy of our final report. 02/06/2024 12:21 PM [facility] Microscopic Description Immunohistochemistry and [...] 1% of all cells without abnormal clustering. Amoret and lambda in situ hybridization stains (core [...] CDT [facility] Pathologist Location at [facility] 02/06/2024 12:21 PM CDT [facility] Disclaimer The performance characteristics of all immunohistochemical and indirect immunofluorescence stains (if any) cited in this report were determined by the Histopathology Laboratory of [facility]. Some of these tests were [...] LAB Embedded Images 02/06/2024 12:21 PM CDT [facility] Pathology/Cytology BONE MARROW SPECIMEN / Unknown 02/01/2024 8:32 AM CDT 02/04/2024 3:11 PM CDT Miscellaneous samples (specimen) BONE MARROW SPECIMEN / Unknown 02/01/2024 8:32 AM CDT 02/04/2024 3:11 PM CDT Kadeem Mcclelland MD LAB - PATHO LOGY/CYTOLOGY ORDERABLES Performing Organization Address City/State/[facility] Co de Phone Number [facility] [address] [phone] * PATHOLOGY TISSUE (12/14/2022 11:29 AM DIGITAL MEDIA DIRECTOR) Case Report Surgical Pathology Report Case: [id number] Authorizing Provider: Indio Montoya MD Collected: 12/14/2022 11:29 AM Ordering Location: [facility] Received: 12/19/2022 08:29 AM Pathologist: Nataliya Pena MD Specimen: Lymph Node Biopsy 12/20/2022 11:59 AM DIGITAL MEDIA DIRECTOR [facility] Final Diagnosis Abdominal lymph node, core biopsy: - B-cell lymphoma - See description. 12/20/2022 11:59 AM DIGITAL MEDIA DIRECTOR [facility] Microscopic Description and [...] lymph node flow cytometry detects a monoclonal KV17-vhranvji mature B-cell lymphoma. Overall, the biopsy is [...] and for final subclassification. 12/20/2022 11:59 AM [facility] Clinical History The patient is a 77 year-old man with abdominal lymphadenopathy. 12/20/2022 11:59 AM [facility] Materials Received Received are three slides and one block (A1) labeled [id number] along with a copy of the outside pathology report. [place] [address]. All original materials are returned to the referring institution, along with a copy of our final report. 12/20/2022 11:59 AM [facility] Disclaimer The performance characteristics of all immunohistochemical and indirect immunofluorescence stains (if any) cited in this report were determined by the Histopathology Laboratory of [facility]. Some of these tests were [...] the attending (teaching) pathologist. 12/20/2022 11:59 AM DIGITAL MEDIA DIRECTOR [facility] Embedded Images 12/20/2022 11:59 AM [facility] Pathology/Cytolo gy BIOPSY OF LYMPH NODE / Unknown 12/14/2022 11:29 AM DIGITAL MEDIA DIRECTOR 12/19/2022 8:29 AM DIGITAL MEDIA DIRECTOR Indio Montoya MD LAB - PATHOLOGY/CYTO LOGY ORDERABLES [facility] [address] [phone] * DERMATOPATHOLOGY (09/20/2020 12:00 AM DIGITAL MEDIA DIRECTOR) Case Report Dermatopathology Report Case: [id number] Authorizing Provider: Armen Orozco MD Collected: 09/20/2020 12:00 AM Ordering Location: [facility] Received: 09/21/2020 06:45 AM Pathologist: Lola Reyes MD Specimen: Skin, right helix 0 3:50 PM DIGITAL MEDIA DIRECTOR DERMATOPATHOLOGY LABORATORY Final Diagnosis Specimen A. 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 Path # [id number]. 0 3:50 PM DIGITAL MEDIA DIRECTOR DERMATOPATHOLOGY LABORATORY Gross Description Specimen A: Received is one formalin filled container labeled with the patient's name and designated right helix. The specimen consists of a shave biopsy measuring 2l4a5zo. Jar 0. 0 3:50 PM DIGITAL MEDIA DIRECTOR DERMATOPATHOLOGY LABORATORY Microscopic Description Specimen A. SKIN, [...] cannot be ruled out. 0 3:50 PM DIGITAL MEDIA DIRECTOR DERMATOPATHOLOGY LABORATORY Disclaimer An external and internal positive and negative controls are appropriate for the histochemical, immunohistochemical and immunofluorescence stain(s) in this case (if any), except where stated explicitly. The performance characteristics of the stain(s) cited in this report were developed and its performance characteristic determined by the Dermatopathology Laboratory at [facility], directed by Dr. Quincy Perez. These tests need not be, and therefore are not, approved by the [place] Food and Drug Administration. The tests are used for clinical purposes. Billing Codes Specimen Charges Stain Charges 04667 1 31010 1 0 3:50 PM DIGITAL MEDIA DIRECTOR DERMATOPATHOLOGY LABORATORY Embedded Images 0 3:50 PM DIGITAL MEDIA DIRECTOR DERMATOPATHOLOGY LABORATORY Pathology/Cytolog y TISSUE SPECIMEN FROM SKIN / Unknown 09/20/2020 09/21/2020 6:45 AM DIGITAL MEDIA DIRECTOR Armen Orozco MD LAB - PATHOLOGY/CYTO LOGY ORDERABLES DERMATOPATHOLOGY LABORATORY [facility] - Department of Dermatology [facility] Specialized Medicine [address] [place] [address], [address] [phone] Care Teams Airplane Pilot Commercial Relationship Specialty Start Date End Date Moses Conn MD [address] [place] [id number] PCP - General 01/04/23
--- OUTSIDE RECORDS SUMMARY | 2024-12-25 09:05 | XMS_ITS | Encounter Summary ---
Author Organization [facility] Health Address [address] [place] [address] Care Team Providers Care Polygraph Examiner Name Role Phone Moses Conn MD Primary Care Provider [phone] Encounter Details Date Type Department Care Team (Late Contact Info) Description 02/01/2024 Lab Requisition [facility] - Pathology Lab [address] [place] [address] Kadeem Mcclelland MD [address] [address] Follicular lymphoma, unspecified, unspecified site [...] Visit [facility] - GI [address] [facility], [place] [address] Rigoberto Mcclain MD [address] [place] [phone] documented as of this encounter Procedures Procedure Name Priority Date/Time Associated Diagnosis Comments FLOW CYTOMETRY BONE MARROW Routine 02/01/2024 9:30 AM CDT Follicular lymphoma, unspecified, unspecified site (HCC) Non-Hodgkin lymphoma, unspecified, unspecified site (HCC) documented in this encounter Results * FLOW CYTOMETRY BONE MARROW (02/01/2024 9:30 AM CDT) Case Report Flow Cytometry Case: [id number] Authorizing Provider: Stas Kadeem Collected: 02/01/2024 09:30 AM MD Bola Ordering Location: [facility] - Received: 02/01/2024 12:23 PM Pathology Lab Pathologist: Rosa Maria Murry MD Specimen: Bone Marrow 4 12:02 PM CDT [facility] Final Diagnosis Bone marrow, [...] reported B-cell lymphoma. 4 12:02 PM CDT [facility] Flow Cytometry Interpretation Viability: [...] flow cytometry specimen has been reviewed for manufacturing quality technician purposes. Please correlate with histologic review of the bone marrow ([id number]). 4 12:02 PM [facility] Flow Cytometry Results Differential Result Comment Flow Cell Count /uL 10,200 Total Viability % 85.0 Lymphocytes % 19 Dim CD45 Region % 5 Monocytes % 20 Granulocytes % 56 4 12:02 PM [facility] Reason for test Follicular lymphoma, unspecified, unspecified site (HCC) Non-Hodgkin lymphoma, unspecified, unspecified site (HCC) 4 12:02 PM [facility] Client Specimen ID # [id number] 4 12:02 PM [facility] Number of markers 22 were [...] Flow CD57 A-21 TCR-AB A-22 TCR-GD A-7 [place]+CD19+ A-8 Lambda+CD19+ 4 12:02 PM [facility] Pathologist Location at [facility] 4 12:02 PM [facility] Disclaimer Test performed at [facility], [address] [place] [address], [address]. *The established laboratory minimum viability is 70%. [...] high complexity clinical testing. 4 12:02 PM [facility] Embedded Images 12:02 PM [facility] Pathology/Cytolo gy BONE MARROW SPECIMEN / Unknown 02/01/2024 9:30 AM CDT 02/01/2024 12:23 PM CDT Kadeem Mcclelland MD LAB - PATHO LOGY/CYTOLOGY ORDERABLES Performing Organization Address City/State/[facility] Co de Phone Number [facility] [address] [phone] documented in this encounter Visit Diagnoses Diagnosis Follicular lymphoma, unspecified, unspecified site (HCC) Non-Hodgkin lymphoma, unspecified, unspecified site (HCC) documented in this encounter Additional Health Concerns Infection Onset Date Last Indicated Resolved Time COVID-19 Under Investigation 11/06/2024 11/06/2024 11/06/2024 5:10 PM MARBLEIZER MDRO 11/06/2024 11/06/2024 COVID-19 Under Investigation 12/03/2024 12/03/2024 12/03/2024 1:56 PM MARBLEIZER documented as of this encounter Care Teams Polygraph Examiner Relationship Specialty Start Date End Date Moses Conn MD [address] [place] [id number] PCP - General 01/04/23 documented as of this encounter
--- OUTSIDE RECORDS SUMMARY | 2024-12-25 09:05 | XMS_ITS | Encounter Summary ---
Author Organization [facility] Health Address [address] [facility] [place] [address] Care Team Providers Care Aircraft Worker Name Role Phone Moses Conn MD Primary Care Provider [phone] Reason for Visit * Reason Comments Cirrhosis decompensated Encounter Details Date Type Department Care Team (Late st Contact Info) Description 12/02/2024 Telephone [facility] - [address] [address] Luana Alejo, OLAF Cirrhosis (decompensated) [...] and heating? Not hard at all 11/08/2024 [facility] [place] [facility] - Occupational Stress [...] time in the past 12 m [facility], were you homeless or living in a [place] health care facility (including now)? No 11/08/2024 Sex and Gender [...] generally 3 L. Re-evaluation at that time. Dogi message sent to Dr. Mcclain. [employer] documented in this encounter Plan of Treatment Upcoming Encounters Date Type Department Care Team (Late st Contact Info) Description 01/27/2025 2:00 PM CDT Office Visit [facility] - [address] [facility] [place] [phone] Rigoberto Mcclain MD [address] [place] [address] documented as of this encounter Goals Goal Patient Goal Type Associated Problems Recent Progress Patient-Stated? Author Medication Management General On track( 025 10:45 AM [employer]) Kandis Dejesus, RN Note: Expected end date: [...] Under Investigation 12/03/2024 12/03/2024 12/03/2024 1:56 PM [employer] documented as of this encounter Care Teams Aircraft Worker Relationship Specialty Start Date End Date Moses Conn MD [address] [place] [id number] PCP - General 01/04/23 documented as of this encounter
--- OUTSIDE RECORDS SUMMARY | 2024-12-25 09:05 | XMS_ITS | Referral Summary ---
Author Organization [facility] Address [address] [facility] [place] [address] Care Team Providers Care Web User Experience Strategist Name Role Phone Moses Conn MD Primary Care Provider [phone] Source Comments [facility],non-owned Affiliates and Associated Physician Practices is amultiple site organization consisting of ambulatory clinics and hospital sitesin [place], [place], [place] and [place]. This disclosure is being madepursuant to the Care Everywhere program and may not contain all information available regarding this patient. Last updated 18.[facility] Encounters Date Type Department Care Team Description 12/09/2024 Transitional Care [facility] CARE COORDINATION [address] [place] [address] Lesly Acosta, RN Transitions Of Care 12/03/2024 1:55 PM REPRODUCTION ORDER PROCESSOR - 12/08/2024 2:44 PM REPRODUCTION ORDER PROCESSOR Hospital Encounter [facility] 7S ACUTE [address] [place] [address] Julio Torres MD Demars, MD Tai Carroll Alex S, MD Shmais, Manar A, MD Qureshi, Kamran, MD Emergency Medicine Discharge Disposition: Home Health Care Svc 12/03/2024 Travel 12/02/2024 Telephone [facility] - GI [address] [facility], [place] [address] Luana Alejo, OLAF Cirrhosis (decompensated) 11/14/2024 Transitional Care [facility] CARE COORDINATION [address] [place] [id number] Lesly Acosta, OLAF Transitions Of Care 11/06/2024 2:03 PM REPRODUCTION ORDER PROCESSOR - 11/13/2024 4:50 PM REPRODUCTION ORDER PROCESSOR Hospital Encounter [facility] 8S ACUTE [address] [place] [address] Homer Hallman MD Befeler, Alex S, MD Elbeshbeshy, Sly Morrissey MD Gastroenterology Discharge Disposition: Home or Self Care 11/06/2024 Travel 11/06/2024 10:00 AM REPRODUCTION ORDER PROCESSOR Office Visit [facility] - GI [address] [place] [phone] Rigoberto Mcclain MD Decompensated hepatic cirrhosis (HCC) (Primary Dx); Portal hypertension (HCC); Other ascites; Hepatic encephalopathy (HCC) 10/31/2024 Travel 10/31/2024 9:30 AM REPRODUCTION ORDER PROCESSOR - 10/31/2024 11:00 AM REPRODUCTION ORDER PROCESSOR Surgery [facility] ENDOSCOPY [address] [place] [address] Procedure, Nursing G_I GASTRIC MOTILITY STUDY 10/31/2024 9:23 AM REPRODUCTION ORDER PROCESSOR - 10/31/2024 10:20 AM REPRODUCTION ORDER PROCESSOR Hospital Encounter [facility] LAILA OP [address] [place] [address] Didier Lei MD Surgery General Discharge Disposition: Home or Self Care 10/23/2024 2:22 PM REPRODUCTION ORDER PROCESSOR - 10/28/2024 3:15 PM REPRODUCTION ORDER PROCESSOR Hospital Encounter [facility] 7N ACUTE [address] [place] [address] Muna Waller MD Agbim, Uchenna A, MD Qureshi, Kamran, MD Gastroenterology Discharge Disposition: Home or Self Care 10/23/2024 Travel 10/23/2024 Telephone [facility] - Nephrology [address] [place] [phone] Rigoberto Mcclain MD Follow-up; Med Question 09/28/2024 11:35 AM REPRODUCTION ORDER PROCESSOR - 09/30/2024 12:45 PM REPRODUCTION ORDER PROCESSOR Hospital Encounter [facility] 7S ACUTE [address] [place] [address] Carlos Mcclani, Didier Rowland MD SynFrancy MD Gastroenterology Discharge Disposition: Home or Self Care 09/28/2024 Travel 09/24/2024 Transitional Care [facility] CARE COORDINATION [address] [place] [address] Lesly Acosta, RN Transitions Of Care from [...] fluticasone propionate (Flonase) 50 MCG/ACT nasal spray [place] 1 (one) spray into the nose once [...] and heating? Not hard at all 11/08/2024 [facility] [place] [facility] - Occupational Stress [...] Comments Blood Pressure 135/61 12/08/2024 12:00 PM REPRODUCTION ORDER PROCESSOR Pulse 75 12/08/2024 12:00 PM REPRODUCTION ORDER PROCESSOR Temperature 36.5 C (97.7 F) 12/08/2024 12:00 PM REPRODUCTION ORDER PROCESSOR Respiratory Rate 17 12/08/2024 12:00 PM REPRODUCTION ORDER PROCESSOR Oxygen Saturation 98% 12/08/2024 12:00 PM REPRODUCTION ORDER PROCESSOR Inhaled Oxygen Concentration - - Weight 48 kg (105 lb 12.8 oz) 12/05/2024 6:16 PM REPRODUCTION ORDER PROCESSOR Height 163 cm (5' 4.17 ) 12/04/2024 8:31 PM REPRODUCTION ORDER PROCESSOR Body Mass Index 18.06 12/04/2024 8:31 PM REPRODUCTION ORDER PROCESSOR Functional Status Functional Status Response Date of [...] CDT Office Visit [facility] - [address] [place] [address], [facility] [place] [address] [place] [address] [place] [phone] Goals Goal Patient Goal Type Associated Problems Recent Progress Patient-Stated? Author Medication Management General On track( 025 10:45 AM REPRODUCTION ORDER PROCESSOR) Kandis Dejesus, RN Note: Expected end date: ongoing Interventions: Take all medications as prescribed Let your doctor know right away about any changes in your medications Make sure to request a refill of your medication at least one week prior to your last dose Procedures Procedure Name Priority Date/Time Associated Diagnosis Comments GLUCOSE - POINT OF CARE Routine 12/08/2024 12:03 PM REPRODUCTION ORDER PROCESSOR GLUCOSE - POINT OF CARE Routine 12/08/2024 7:56 AM REPRODUCTION ORDER PROCESSOR PHOSPHORUS BLOOD Routine 12/08/2024 5:06 AM REPRODUCTION ORDER PROCESSOR MAGNESIUM BLOOD Routine 12/08/2024 5:06 AM REPRODUCTION ORDER PROCESSOR COMPREHENSIVE METABOLIC PANEL AM Draw 12/08/2024 5:06 AM REPRODUCTION ORDER PROCESSOR CBC W AUTO DIFFERENTIAL AM Draw 12/08/2024 5:06 AM REPRODUCTION ORDER PROCESSOR GLUCOSE - POINT OF CARE Routine 12/08/2024 4:51 AM REPRODUCTION ORDER PROCESSOR GLUCOSE - POINT OF CARE Routine 12/07/2024 11:59 PM REPRODUCTION ORDER PROCESSOR GLUCOSE - POINT OF CARE Routine 12/07/2024 8:41 PM REPRODUCTION ORDER PROCESSOR GLUCOSE - POINT OF CARE Routine 12/07/2024 4:34 PM REPRODUCTION ORDER PROCESSOR GLUCOSE - POINT OF CARE Routine 12/07/2024 11:56 AM REPRODUCTION ORDER PROCESSOR GLUCOSE - POINT OF CARE Routine 12/07/2024 8:40 AM REPRODUCTION ORDER PROCESSOR PHOSPHORUS BLOOD Routine 12/07/2024 5:15 AM REPRODUCTION ORDER PROCESSOR MAGNESIUM BLOOD Routine 12/07/2024 5:15 AM REPRODUCTION ORDER PROCESSOR COMPREHENSIVE METABOLIC PANEL AM Draw 12/07/2024 5:15 AM REPRODUCTION ORDER PROCESSOR CBC W AUTO DIFFERENTIAL AM Draw 12/07/2024 5:15 AM REPRODUCTION ORDER PROCESSOR GLUCOSE - POINT OF CARE Routine 12/07/2024 5:09 AM REPRODUCTION ORDER PROCESSOR GLUCOSE - POINT OF CARE Routine 12/06/2024 11:48 PM REPRODUCTION ORDER PROCESSOR GLUCOSE - POINT OF CARE Routine 12/06/2024 7:57 PM REPRODUCTION ORDER PROCESSOR GLUCOSE - POINT OF CARE Routine 12/06/2024 4:45 PM REPRODUCTION ORDER PROCESSOR GLUCOSE - POINT OF CARE Routine 12/06/2024 12:29 PM REPRODUCTION ORDER PROCESSOR GLUCOSE - POINT OF CARE Routine 12/06/2024 8:17 AM REPRODUCTION ORDER PROCESSOR PHOSPHORUS BLOOD Routine 12/06/2024 5:39 AM REPRODUCTION ORDER PROCESSOR MAGNESIUM BLOOD Routine 12/06/2024 5:39 AM REPRODUCTION ORDER PROCESSOR COMPREHENSIVE METABOLIC PANEL AM Draw 12/06/2024 5:39 AM REPRODUCTION ORDER PROCESSOR CBC W AUTO DIFFERENTIAL AM Draw 12/06/2024 5:39 AM REPRODUCTION ORDER PROCESSOR INSULIN FREE + TOTAL Routine 12/06/2024 5:39 AM REPRODUCTION ORDER PROCESSOR INSULIN LIKE GROWTH FACTOR 2 Routine 12/06/2024 5:39 AM REPRODUCTION ORDER PROCESSOR IGF BINDING PROTEIN 1 Routine 12/06/2024 5:39 AM REPRODUCTION ORDER PROCESSOR HYDROXYBUTYRATE BETA Routine 12/06/2024 5:39 AM REPRODUCTION ORDER PROCESSOR CORTISOL BLOOD AM Timed 12/06/2024 5:3 9 AM REPRODUCTION ORDER PROCESSOR PROINSULIN Routine 12/06/2024 5:39 AM REPRODUCTION ORDER PROCESSOR C-PEPTIDE Routine 12/06/2024 5:39 AM REPRODUCTION ORDER PROCESSOR GLUCOSE - POINT OF CARE Routine 12/06/2024 4:14 AM REPRODUCTION ORDER PROCESSOR GLUCOSE - POINT OF CARE Routine 12/05/2024 11:51 PM REPRODUCTION ORDER PROCESSOR GLUCOSE - POINT OF CARE Routine 12/05/2024 8:38 PM REPRODUCTION ORDER PROCESSOR GLUCOSE - POINT OF CARE Routine 12/05/2024 3:59 PM REPRODUCTION ORDER PROCESSOR GLUCOSE - POINT OF CARE Routine 12/05/2024 12:17 PM REPRODUCTION ORDER PROCESSOR C-PEPTIDE Routine 12/05/2024 10:08 AM REPRODUCTION ORDER PROCESSOR PROINSULIN AM Draw 12/05/2024 10:07 AM REPRODUCTION ORDER PROCESSOR INSULIN FREE + TOTAL AM Draw 12/05/2024 10:07 AM REPRODUCTION ORDER PROCESSOR GLUCOSE - POINT OF CARE Routine 12/05/2024 8:20 AM REPRODUCTION ORDER PROCESSOR GLUCOSE - POINT OF CARE Routine 12/05/2024 7:48 AM REPRODUCTION ORDER PROCESSOR GLUCOSE - POINT OF CARE Routine 12/05/2024 7:38 AM REPRODUCTION ORDER PROCESSOR PHOSPHORUS BLOOD Routine 12/05/2024 6:32 AM REPRODUCTION ORDER PROCESSOR MAGNESIUM BLOOD Routine 12/05/2024 6:32 AM REPRODUCTION ORDER PROCESSOR COMPREHENSIVE METABOLIC PANEL AM Draw 12/05/2024 6:32 AM REPRODUCTION ORDER PROCESSOR CBC W AUTO DIFFERENTIAL AM Draw 12/05/2024 6:32 AM REPRODUCTION ORDER PROCESSOR GLUCOSE - POINT OF CARE Routine 12/05/2024 3:51 AM REPRODUCTION ORDER PROCESSOR GLUCOSE - POINT OF CARE Routine 12/05/2024 3:39 AM REPRODUCTION ORDER PROCESSOR GLUCOSE - POINT OF CARE Routine 12/05/2024 3:32 AM REPRODUCTION ORDER PROCESSOR GLUCOSE - POINT OF CARE Routine 12/05/2024 3:27 AM REPRODUCTION ORDER PROCESSOR GLUCOSE - POINT OF CARE Routine 12/05/2024 3:17 AM REPRODUCTION ORDER PROCESSOR GLUCOSE - POINT OF CARE Routine 12/05/2024 3:05 AM REPRODUCTION ORDER PROCESSOR GLUCOSE - POINT OF CARE Routine 12/04/2024 7:42 PM REPRODUCTION ORDER PROCESSOR GLUCOSE - POINT OF CARE Routine 12/04/2024 6:53 PM REPRODUCTION ORDER PROCESSOR GLUCOSE - POINT OF CARE Routine 12/04/2024 6:30 PM REPRODUCTION ORDER PROCESSOR GLUCOSE - POINT OF CARE Routine 12/04/2024 6:09 PM REPRODUCTION ORDER PROCESSOR GLUCOSE - POINT OF CARE Routine 12/04/2024 5:46 PM REPRODUCTION ORDER PROCESSOR US ABDOMEN LIMITED STAT 12/04/2024 11 :40 AM REPRODUCTION ORDER PROCESSOR Hepatic cirrhosis, unspecified hepatic cirrhosis type, unspecified whether ascites present (HCC) CARDIAC EKG ORDER 12/04/2024 11: 29 AM REPRODUCTION ORDER PROCESSOR UREA NITROGEN URINE RANDOM STAT 12/04/2024 9:39 AM REPRODUCTION ORDER PROCESSOR FERRITIN MICHELLE 12/04/2024 9:38 AM REPRODUCTION ORDER PROCESSOR VITAMIN B12 MICHELLE 12/04/2024 9:38 AM REPRODUCTION ORDER PROCESSOR FOLATE MICHELLE 12/04/2024 9:38 AM REPRODUCTION ORDER PROCESSOR IRON + TRANSFERRIN PANEL STAT 12/04/2024 9:38 AM REPRODUCTION ORDER PROCESSOR GLUCOSE - POINT OF CARE Routine 12/04/2024 7:48 AM REPRODUCTION ORDER PROCESSOR GLUCOSE - POINT OF CARE Routine 12/04/2024 5:46 AM REPRODUCTION ORDER PROCESSOR GLUCOSE - POINT OF CARE Routine 12/04/2024 4:50 AM REPRODUCTION ORDER PROCESSOR PHOSPHORUS BLOOD STAT 12/04/2024 4:33 AM REPRODUCTION ORDER PROCESSOR MAGNESIUM BLOOD STAT 12/04/2024 4:33 AM REPRODUCTION ORDER PROCESSOR COMPREHENSIVE METABOLIC PANEL STAT 12/04/2024 4:33 AM REPRODUCTION ORDER PROCESSOR CBC W AUTO DIFFERENTIAL STAT 12/04/2024 4:25 AM REPRODUCTION ORDER PROCESSOR GLUCOSE - POINT OF CARE Routine 12/04/2024 4:20 AM REPRODUCTION ORDER PROCESSOR GLUCOSE - POINT OF CARE Routine 12/04/2024 2:29 AM REPRODUCTION ORDER PROCESSOR GLUCOSE - POINT OF CARE Routine 12/04/2024 12:51 AM REPRODUCTION ORDER PROCESSOR CREATININE URINE RANDOM STAT 12/04/2024 12:17 AM REPRODUCTION ORDER PROCESSOR LYTES (NA K CL) URINE RANDOM PANEL STAT 12/04/2024 12:17 AM REPRODUCTION ORDER PROCESSOR URINALYSIS REFLEX MICROSCOPIC REFLEX CULTURE STAT 12/04/2024 12:17 AM REPRODUCTION ORDER PROCESSOR GLUCOSE - POINT OF CARE Routine 12/03/2024 11:09 PM REPRODUCTION ORDER PROCESSOR GLUCOSE - POINT OF CARE Routine 12/03/2024 8:33 PM REPRODUCTION ORDER PROCESSOR GLUCOSE - POINT OF CARE Routine 12/03/2024 8:27 PM REPRODUCTION ORDER PROCESSOR CULTURE BLOOD Timed 12/03/2024 6:17 PM REPRODUCTION ORDER PROCESSOR CULTURE BLOOD Timed 12/03/2024 6:12 PM REPRODUCTION ORDER PROCESSOR CT HEAD WO CONTRAST STAT 12/03/2024 4 :56 PM REPRODUCTION ORDER PROCESSOR Altered mental status, unspecified altered mental status type Hepatic cirrhosis, unspecified hepatic cirrhosis type, unspecified whether ascites present (HCC) TROPONIN-I HIGH SENSITIVE REFLEX 1HOUR Timed 12/03/2024 3:26 PM REPRODUCTION ORDER PROCESSOR SARS-COV-2 (COVID-19) FLU A/B RSV PCR RAPID STAT 12/03/2024 12:36 PM REPRODUCTION ORDER PROCESSOR PTT [facility] STAT 12/03/2024 12:35 PM REPRODUCTION ORDER PROCESSOR PT-INR [facility] STAT 12/03/2024 12:35 PM REPRODUCTION ORDER PROCESSOR AMMONIA STAT 12/03/2024 12:35 PM REPRODUCTION ORDER PROCESSOR TROPONIN-I HIGH SENSITIVE BASELINE + 1HR STAT 12/03/2024 12:35 PM REPRODUCTION ORDER PROCESSOR MAGNESIUM BLOOD STAT 12/03/2024 12:35 PM REPRODUCTION ORDER PROCESSOR COMPREHENSIVE METABOLIC PANEL STAT 12/03/2024 12:35 PM REPRODUCTION ORDER PROCESSOR CBC W AUTO DIFFERENTIAL STAT 12/03/2024 12:35 PM REPRODUCTION ORDER PROCESSOR EKG 12-LEAD STAT 12/03/2024 12:21 PM REPRODUCTION ORDER PROCESSOR Altered mental status, unspecified altered mental status type XR CHEST 2VW STAT 12/03/2024 11:24 AM REPRODUCTION ORDER PROCESSOR Altered mental status, unspecified altered mental status type GLUCOSE - POINT OF CARE Routine 11/13/2024 3:43 PM REPRODUCTION ORDER PROCESSOR GLUCOSE - POINT OF CARE Routine 11/13/2024 10:46 AM REPRODUCTION ORDER PROCESSOR GLUCOSE - POINT OF CARE Routine 11/13/2024 8:48 AM REPRODUCTION ORDER PROCESSOR CBC W AUTO DIFFERENTIAL Routine 11/13/2024 7:57 AM REPRODUCTION ORDER PROCESSOR MAGNESIUM BLOOD Routine 11/13/2024 7:57 AM REPRODUCTION ORDER PROCESSOR PHOSPHORUS BLOOD Routine 11/13/2024 7:57 AM REPRODUCTION ORDER PROCESSOR COMPREHENSIVE METABOLIC PANEL Routine 11/13/2024 7:57 AM REPRODUCTION ORDER PROCESSOR GLUCOSE - POINT OF CARE Routine 11/12/2024 8:31 PM REPRODUCTION ORDER PROCESSOR GLUCOSE - POINT OF CARE Routine 11/12/2024 3:43 PM REPRODUCTION ORDER PROCESSOR GLUCOSE - POINT OF CARE Routine 11/12/2024 10:56 AM REPRODUCTION ORDER PROCESSOR CBC W AUTO DIFFERENTIAL Routine 11/12/2024 7:11 AM REPRODUCTION ORDER PROCESSOR MAGNESIUM BLOOD Routine 11/12/2024 7:11 AM REPRODUCTION ORDER PROCESSOR PHOSPHORUS BLOOD Routine 11/12/2024 7:11 AM REPRODUCTION ORDER PROCESSOR COMPREHENSIVE METABOLIC PANEL Routine 11/12/2024 7:11 AM REPRODUCTION ORDER PROCESSOR GLUCOSE - POINT OF CARE Routine 11/12/2024 6:37 AM REPRODUCTION ORDER PROCESSOR GLUCOSE - POINT OF CARE Routine 11/11/2024 8:50 PM REPRODUCTION ORDER PROCESSOR GLUCOSE - POINT OF CARE Routine 11/11/2024 3:10 PM REPRODUCTION ORDER PROCESSOR CARDIAC EKG ORDER 11/11/2024 12: 23 PM REPRODUCTION ORDER PROCESSOR GLUCOSE - POINT OF CARE Routine 11/11/2024 11:44 AM REPRODUCTION ORDER PROCESSOR CBC W AUTO DIFFERENTIAL Routine 11/11/2024 9:07 AM REPRODUCTION ORDER PROCESSOR MAGNESIUM BLOOD Routine 11/11/2024 9:07 AM REPRODUCTION ORDER PROCESSOR PHOSPHORUS BLOOD Routine 11/11/2024 9:07 AM REPRODUCTION ORDER PROCESSOR COMPREHENSIVE METABOLIC PANEL Routine 11/11/2024 9:07 AM REPRODUCTION ORDER PROCESSOR GLUCOSE - POINT OF CARE Routine 11/11/2024 6:56 AM REPRODUCTION ORDER PROCESSOR GLUCOSE - POINT OF CARE Routine 11/10/2024 10:52 PM REPRODUCTION ORDER PROCESSOR GLUCOSE - POINT OF CARE Routine 11/10/2024 4:39 PM REPRODUCTION ORDER PROCESSOR GLUCOSE - POINT OF CARE Routine 11/10/2024 12:25 PM REPRODUCTION ORDER PROCESSOR GLUCOSE - POINT OF CARE Routine 11/10/2024 6:59 AM REPRODUCTION ORDER PROCESSOR CBC W AUTO DIFFERENTIAL Routine 11/10/2024 6:23 AM REPRODUCTION ORDER PROCESSOR MAGNESIUM BLOOD Routine 11/10/2024 6:23 AM REPRODUCTION ORDER PROCESSOR PHOSPHORUS BLOOD Routine 11/10/2024 6:23 AM REPRODUCTION ORDER PROCESSOR COMPREHENSIVE METABOLIC PANEL Routine 11/10/2024 6:23 AM REPRODUCTION ORDER PROCESSOR GLUCOSE - POINT OF CARE Routine 11/10/2024 1:23 AM REPRODUCTION ORDER PROCESSOR GLUCOSE - POINT OF CARE Routine 11/09/2024 5:46 PM REPRODUCTION ORDER PROCESSOR GLUCOSE - POINT OF CARE Routine 11/09/2024 4:10 PM REPRODUCTION ORDER PROCESSOR GLUCOSE - POINT OF CARE Routine 11/09/2024 11:38 AM REPRODUCTION ORDER PROCESSOR CBC W AUTO DIFFERENTIAL Routine 11/09/2024 7:18 AM REPRODUCTION ORDER PROCESSOR MAGNESIUM BLOOD Routine 11/09/2024 7:18 AM REPRODUCTION ORDER PROCESSOR PHOSPHORUS BLOOD Routine 11/09/2024 7:18 AM REPRODUCTION ORDER PROCESSOR COMPREHENSIVE METABOLIC PANEL Routine 11/09/2024 7:18 AM REPRODUCTION ORDER PROCESSOR GLUCOSE - POINT OF CARE Routine 11/09/2024 7:09 AM REPRODUCTION ORDER PROCESSOR GLUCOSE - POINT OF CARE Routine 11/08/2024 9:45 PM REPRODUCTION ORDER PROCESSOR CBC W AUTO DIFFERENTIAL Routine 11/08/2024 5:13 PM REPRODUCTION ORDER PROCESSOR MAGNESIUM BLOOD Routine 11/08/2024 5:13 PM REPRODUCTION ORDER PROCESSOR PHOSPHORUS BLOOD Routine 11/08/2024 5:13 PM REPRODUCTION ORDER PROCESSOR COMPREHENSIVE METABOLIC PANEL Routine 11/08/2024 5:13 PM REPRODUCTION ORDER PROCESSOR GLUCOSE - POINT OF CARE Routine 11/08/2024 4:27 PM REPRODUCTION ORDER PROCESSOR GLUCOSE - POINT OF CARE Routine 11/08/2024 12:04 PM REPRODUCTION ORDER PROCESSOR GLUCOSE - POINT OF CARE Routine 11/08/2024 6:50 AM REPRODUCTION ORDER PROCESSOR GLUCOSE - POINT OF CARE Routine 11/07/2024 9:06 PM REPRODUCTION ORDER PROCESSOR GLUCOSE - POINT OF CARE Routine 11/07/2024 5:02 PM REPRODUCTION ORDER PROCESSOR GLUCOSE - POINT OF CARE Routine 11/07/2024 2:46 PM REPRODUCTION ORDER PROCESSOR HIV-1 HIV-2 ANTIBODY + HIV P24 AG PANEL STAT 11/07/2024 4:27 AM REPRODUCTION ORDER PROCESSOR TSH REFLEX FREE T4 STAT 11/07/2024 4: 27 AM REPRODUCTION ORDER PROCESSOR VITAMIN B12 MICHELLE 11/07/2024 4:27 AM REPRODUCTION ORDER PROCESSOR FOLATE MICHELLE 11/07/2024 4:27 AM REPRODUCTION ORDER PROCESSOR VITAMIN B1 STAT 11/07/2024 4:27 AM REPRODUCTION ORDER PROCESSOR SYPHILIS ANTIBODY CASCADING REFLEX STAT 11/07/2024 4:27 AM REPRODUCTION ORDER PROCESSOR CBC W AUTO DIFFERENTIAL STAT 11/07/2024 4:27 AM REPRODUCTION ORDER PROCESSOR MAGNESIUM BLOOD STAT 11/07/2024 4:27 AM REPRODUCTION ORDER PROCESSOR PHOSPHORUS BLOOD STAT 11/07/2024 4:27 AM REPRODUCTION ORDER PROCESSOR COMPREHENSIVE METABOLIC PANEL STAT 11/07/2024 4:27 AM REPRODUCTION ORDER PROCESSOR GLUCOSE - POINT OF CARE Routine 11/07/2024 12:21 AM REPRODUCTION ORDER PROCESSOR URINALYSIS W/MICROSCOPIC REFLEX TO CULTURE STAT 11/06/2024 11:44 PM REPRODUCTION ORDER PROCESSOR URINE DRUG SCREEN IMMUNOASSAY STAT 11/06/2024 11:43 PM REPRODUCTION ORDER PROCESSOR DIFFERENTIAL MANUAL FLUID STAT 11/06/2024 8:27 PM REPRODUCTION ORDER PROCESSOR PROTEIN BODY FLUID STAT 11/06/2024 8: 27 PM REPRODUCTION ORDER PROCESSOR GLUCOSE BODY FLUID STAT 11/06/2024 8: 27 PM REPRODUCTION ORDER PROCESSOR CELL COUNT W DIFFERENTIAL FLUID STAT 11/06/2024 8:27 PM REPRODUCTION ORDER PROCESSOR HYDROXYBUTYRATE BETA STAT 11/06/2024 8:26 PM REPRODUCTION ORDER PROCESSOR CULTURE FLUID+GRAM STAIN STAT 11/06/2024 8:15 PM REPRODUCTION ORDER PROCESSOR ED PARACENTESIS Routine 11/06/2024 6:28 PM REPRODUCTION ORDER PROCESSOR Encephalopathy, unspecified type Decompensated cirrhosis (HCC) TROPONIN-I HIGH SENSITIVE REFLEX 1HOUR Timed 11/06/2024 4:33 PM REPRODUCTION ORDER PROCESSOR SARS-COV-2 (COVID-19)+INFLU A+B PCR RAPID STAT 11/06/2024 3:40 PM REPRODUCTION ORDER PROCESSOR TROPONIN-I HIGH SENSITIVE BASELINE + 1HR STAT 11/06/2024 3:30 PM REPRODUCTION ORDER PROCESSOR AMMONIA STAT 11/06/2024 3:30 PM REPRODUCTION ORDER PROCESSOR EKG 12-LEAD STAT 11/06/2024 3:17 PM REPRODUCTION ORDER PROCESSOR Encephalopathy, unspecified type CT HEAD WO CONTRAST STAT 11/06/2024 2 :47 PM REPRODUCTION ORDER PROCESSOR Encephalopathy, unspecified type XR CHEST 1VW PORTABLE STAT 11/06/2024 2:29 PM REPRODUCTION ORDER PROCESSOR Encephalopathy, unspecified type LIPASE BLOOD STAT 11/06/2024 12:54 PM REPRODUCTION ORDER PROCESSOR PT-INR [facility] STAT 11/06/2024 12:54 PM REPRODUCTION ORDER PROCESSOR COMPREHENSIVE METABOLIC PANEL STAT 11/06/2024 12:54 PM REPRODUCTION ORDER PROCESSOR CBC W AUTO DIFFERENTIAL STAT 11/06/2024 12:54 PM REPRODUCTION ORDER PROCESSOR HI ESOPHAGUS MOTILITY STUDY 10/31/2024 9:25 AM REPRODUCTION ORDER PROCESSOR Dysphagia, unspecified type GLUCOSE - POINT OF CARE Routine 10/28/2024 10:51 AM REPRODUCTION ORDER PROCESSOR GLUCOSE - POINT OF CARE Routine 10/28/2024 8:12 AM REPRODUCTION ORDER PROCESSOR PT-INR [facility] Routine 10/28/2024 6:14 AM REPRODUCTION ORDER PROCESSOR CBC W/O DIFFERENTIAL Routine 10/28/2024 6:14 AM REPRODUCTION ORDER PROCESSOR PHOSPHORUS BLOOD Routine 10/28/2024 6:14 AM REPRODUCTION ORDER PROCESSOR MAGNESIUM BLOOD Routine 10/28/2024 6:14 AM REPRODUCTION ORDER PROCESSOR COMPREHENSIVE METABOLIC PANEL Routine 10/28/2024 6:14 AM REPRODUCTION ORDER PROCESSOR GLUCOSE - POINT OF CARE Routine 10/27/2024 8:28 PM REPRODUCTION ORDER PROCESSOR GLUCOSE - POINT OF CARE Routine 10/27/2024 4:53 PM REPRODUCTION ORDER PROCESSOR GLUCOSE - POINT OF CARE Routine 10/27/2024 12:17 PM REPRODUCTION ORDER PROCESSOR PT-INR [facility] Routine 10/27/2024 8:18 AM REPRODUCTION ORDER PROCESSOR CBC W/O DIFFERENTIAL Routine 10/27/2024 8:18 AM REPRODUCTION ORDER PROCESSOR PHOSPHORUS BLOOD Routine 10/27/2024 8:18 AM REPRODUCTION ORDER PROCESSOR MAGNESIUM BLOOD Routine 10/27/2024 8:18 AM REPRODUCTION ORDER PROCESSOR COMPREHENSIVE METABOLIC PANEL Routine 10/27/2024 8:18 AM REPRODUCTION ORDER PROCESSOR GLUCOSE - POINT OF CARE Routine 10/27/2024 8:01 AM REPRODUCTION ORDER PROCESSOR GLUCOSE - POINT OF CARE Routine 10/26/2024 9:12 PM REPRODUCTION ORDER PROCESSOR GLUCOSE - POINT OF CARE Routine 10/26/2024 9:14 AM REPRODUCTION ORDER PROCESSOR VITAMIN D 1,25 DIHYDROXY Routine 10/26/2024 4:00 AM REPRODUCTION ORDER PROCESSOR PT-INR [facility] Routine 10/26/2024 4:00 AM REPRODUCTION ORDER PROCESSOR CBC W/O DIFFERENTIAL Routine 10/26/2024 4:00 AM REPRODUCTION ORDER PROCESSOR PHOSPHORUS BLOOD Routine 10/26/2024 4:00 AM REPRODUCTION ORDER PROCESSOR MAGNESIUM BLOOD Routine 10/26/2024 4:00 AM REPRODUCTION ORDER PROCESSOR COMPREHENSIVE METABOLIC PANEL Routine 10/26/2024 4:00 AM REPRODUCTION ORDER PROCESSOR GLUCOSE - POINT OF CARE Routine 10/25/2024 8:57 PM REPRODUCTION ORDER PROCESSOR GLUCOSE - POINT OF CARE Routine 10/25/2024 4:22 PM REPRODUCTION ORDER PROCESSOR GLUCOSE - POINT OF CARE Routine 10/25/2024 12:17 PM REPRODUCTION ORDER PROCESSOR SODIUM URINE RANDOM Routine 10/25/2024 1 0:40 AM REPRODUCTION ORDER PROCESSOR GLUCOSE - POINT OF CARE Routine 10/25/2024 8:59 AM REPRODUCTION ORDER PROCESSOR US ABDOMEN LTD W COMP DOPPLER Routine 10/25/2024 8:20 AM REPRODUCTION ORDER PROCESSOR Hepatic encephalopathy (HCC) PTH RELATED PEPTIDE AM Draw 10/25/2024 4 :54 AM REPRODUCTION ORDER PROCESSOR LDH BLOOD Routine 10/25/2024 4:54 AM REPRODUCTION ORDER PROCESSOR VITAMIN D 25-HYDROXY AM Draw 10/25/2024 4:54 AM REPRODUCTION ORDER PROCESSOR PTH INTACT W/O CALCIUM AM Draw 4:54 AM REPRODUCTION ORDER PROCESSOR PT-INR [facility] Routine 10/25/2024 4:54 AM REPRODUCTION ORDER PROCESSOR CBC W/O DIFFERENTIAL Routine 10/25/2024 4:54 AM REPRODUCTION ORDER PROCESSOR PHOSPHORUS BLOOD Routine 10/25/2024 4:54 AM REPRODUCTION ORDER PROCESSOR MAGNESIUM BLOOD Routine 10/25/2024 4:54 AM REPRODUCTION ORDER PROCESSOR COMPREHENSIVE METABOLIC PANEL Routine 10/25/2024 4:54 AM REPRODUCTION ORDER PROCESSOR GLUCOSE - POINT OF CARE Routine 10/24/2024 9:28 PM REPRODUCTION ORDER PROCESSOR GLUCOSE - POINT OF CARE Routine 10/24/2024 5:21 PM REPRODUCTION ORDER PROCESSOR GLUCOSE - POINT OF CARE Routine 10/24/2024 12:31 PM REPRODUCTION ORDER PROCESSOR CALCIUM IONIZED WHOLE BLOOD AM Draw 10/24/2024 8:47 AM REPRODUCTION ORDER PROCESSOR HEMOGLOBIN A1C Routine 10/24/2024 8:47 AM REPRODUCTION ORDER PROCESSOR PT-INR [facility] Routine 10/24/2024 8:47 AM REPRODUCTION ORDER PROCESSOR CBC W/O DIFFERENTIAL Routine 10/24/2024 8:47 AM REPRODUCTION ORDER PROCESSOR PHOSPHORUS BLOOD Routine 10/24/2024 8:47 AM REPRODUCTION ORDER PROCESSOR MAGNESIUM BLOOD Routine 10/24/2024 8:47 AM REPRODUCTION ORDER PROCESSOR COMPREHENSIVE METABOLIC PANEL Routine 10/24/2024 8:47 AM REPRODUCTION ORDER PROCESSOR LACTIC ACID BLOOD AM Draw 10/24/2024 8:4 7 AM REPRODUCTION ORDER PROCESSOR GLUCOSE - POINT OF CARE Routine 10/24/2024 8:29 AM REPRODUCTION ORDER PROCESSOR GLUCOSE - POINT OF CARE Routine 10/24/2024 6:14 AM REPRODUCTION ORDER PROCESSOR GLUCOSE - POINT OF CARE Routine 10/23/2024 11:50 PM REPRODUCTION ORDER PROCESSOR GLUCOSE - POINT OF CARE Routine 10/23/2024 9:56 PM REPRODUCTION ORDER PROCESSOR GLUCOSE - POINT OF CARE Routine 10/23/2024 9:26 PM REPRODUCTION ORDER PROCESSOR CT HEAD WO CONTRAST STAT 10/23/2024 9 :23 PM REPRODUCTION ORDER PROCESSOR Hepatic encephalopathy (HCC) XR CHEST 1VW PORTABLE STAT 10/23/2024 8:09 PM REPRODUCTION ORDER PROCESSOR Hepatic encephalopathy (HCC) BLOOD GASES REINA + COOX PANEL STAT 10/23/2024 6:25 PM REPRODUCTION ORDER PROCESSOR CULTURE BLOOD Timed 10/23/2024 6:25 PM REPRODUCTION ORDER PROCESSOR HYDROXYBUTYRATE BETA STAT 10/23/2024 6:11 PM REPRODUCTION ORDER PROCESSOR LACTIC ACID BLOOD REFLEX TO REPEAT Timed STAT 10/23/2024 6:11 PM REPRODUCTION ORDER PROCESSOR CULTURE BLOOD Timed 10/23/2024 6:11 PM REPRODUCTION ORDER PROCESSOR DIFFERENTIAL MANUAL FLUID STAT 10/23/2024 5:27 PM REPRODUCTION ORDER PROCESSOR CELL COUNT W DIFFERENTIAL FLUID STAT 10/23/2024 5:27 PM REPRODUCTION ORDER PROCESSOR CULTURE FLUID+GRAM STAIN STAT 10/23/2024 5:27 PM REPRODUCTION ORDER PROCESSOR ED PARACENTESIS Routine 10/23/2024 4:59 PM REPRODUCTION ORDER PROCESSOR LACTIC ACID BLOOD REFLEX TO REPEAT Timed STAT 10/23/2024 3:09 PM REPRODUCTION ORDER PROCESSOR URINALYSIS W/MICROSCOPIC REFLEX TO CULTURE STAT 10/23/2024 3:09 PM REPRODUCTION ORDER PROCESSOR MAGNESIUM BLOOD STAT 10/23/2024 12:54 PM REPRODUCTION ORDER PROCESSOR AMMONIA STAT 10/23/2024 12:54 PM REPRODUCTION ORDER PROCESSOR LACTIC ACID BLOOD REFLEX TO REPEAT STAT 10/23/2024 12:54 PM REPRODUCTION ORDER PROCESSOR PT-INR SLH STAT 10/23/2024 12:54 PM REPRODUCTION ORDER PROCESSOR COMPREHENSIVE METABOLIC PANEL STAT 10/23/2024 12:54 PM REPRODUCTION ORDER PROCESSOR CBC W AUTO DIFFERENTIAL STAT 10/23/2024 12:54 PM REPRODUCTION ORDER PROCESSOR GLUCOSE - POINT OF CARE Routine 09/30/2024 11:54 AM REPRODUCTION ORDER PROCESSOR GLUCOSE - POINT OF CARE Routine 09/30/2024 7:54 AM REPRODUCTION ORDER PROCESSOR COMPREHENSIVE METABOLIC PANEL AM Draw 09/30/2024 12:21 AM REPRODUCTION ORDER PROCESSOR CBC W AUTO DIFFERENTIAL Routine 09/30/2024 12:21 AM REPRODUCTION ORDER PROCESSOR MAGNESIUM BLOOD Routine 09/30/2024 12:21 AM REPRODUCTION ORDER PROCESSOR PHOSPHORUS BLOOD Routine 09/30/2024 12:2 1 AM REPRODUCTION ORDER PROCESSOR GLUCOSE - POINT OF CARE Routine 09/29/2024 9:06 PM REPRODUCTION ORDER PROCESSOR GLUCOSE - POINT OF CARE Routine 09/29/2024 5:49 PM REPRODUCTION ORDER PROCESSOR GLUCOSE - POINT OF CARE Routine 09/29/2024 11:56 AM REPRODUCTION ORDER PROCESSOR GLUCOSE - POINT OF CARE Routine 09/29/2024 8:39 AM REPRODUCTION ORDER PROCESSOR COMPREHENSIVE METABOLIC PANEL AM Draw 09/29/2024 6:03 AM REPRODUCTION ORDER PROCESSOR CBC W AUTO DIFFERENTIAL Routine 09/29/2024 6:03 AM REPRODUCTION ORDER PROCESSOR MAGNESIUM BLOOD Routine 09/29/2024 6:03 AM REPRODUCTION ORDER PROCESSOR PHOSPHORUS BLOOD Routine 09/29/2024 6:03 AM REPRODUCTION ORDER PROCESSOR GLUCOSE - POINT OF CARE Routine 09/28/2024 8:37 PM REPRODUCTION ORDER PROCESSOR GLUCOSE - POINT OF CARE Routine 09/28/2024 6:42 PM REPRODUCTION ORDER PROCESSOR URINALYSIS REFLEX MICROSCOPIC REFLEX CULTURE STAT 09/28/2024 4:48 PM REPRODUCTION ORDER PROCESSOR AMMONIA STAT 09/28/2024 11:53 AM REPRODUCTION ORDER PROCESSOR PT-INR SLH STAT 09/28/2024 11:53 AM REPRODUCTION ORDER PROCESSOR MAGNESIUM BLOOD STAT 09/28/2024 11:53 AM REPRODUCTION ORDER PROCESSOR COMPREHENSIVE METABOLIC PANEL STAT 09/28/2024 11:53 AM REPRODUCTION ORDER PROCESSOR CBC W AUTO DIFFERENTIAL STAT 09/28/2024 11:53 AM REPRODUCTION ORDER PROCESSOR from Last 3 Months Results * (ABNORMAL) GLUCOSE - POINT OF CARE (12/08/2024 12:03 PM REPRODUCTION ORDER PROCESSOR) Only the most recent of98 resultswithin the time period is included. Glucose WB/POC 246(H) 70 - 99 mg/dL 12/08/2024 12:03 PM REPRODUCTION ORDER PROCESSOR [facility] Specimen Type Cap Fingerstick 2024 12:03 PM REPRODUCTION ORDER PROCESSOR [facility] Blood BLOOD SPECIMEN / Unknown 12/08/2024 12:03 PM REPRODUCTION ORDER PROCESSOR 12/08/2024 12:03 PM REPRODUCTION ORDER PROCESSOR Darek Teran MD LAB - POINT OF CARE ORDERABLES [facility] [address] [place] [address], [facility] [phone] * (ABNORMAL) CBC W AUTO DIFFERENTIAL (12/08/2024 5:06 AM [facility]) Only the most recent of18 resultswithin the time period is included. WBC 3.6(L) 4.0 - 10.7 x10E9/L 12/08/2024 5:38 AM [facility] RBC Count 2.38(L) 4.30 - 5.80 x10E12/L 12/08/2024 5:38 AM [facility] Hemoglobin 7.6(L) 13.3 - 17.5 g/dL 12/08/2024 5:38 AM [facility] Hematocrit 22.2(L) 38.7 - 51.1 % 12/08/2024 5:38 AM [facility] MCV 93.3 80.0 - 98.0 fL 12/08/2024 5:38 AM [facility] MCH 31.9 26.7 - 33.6 pg 12/08/2024 5:38 AM [facility] MCHC 34.2 31.7 - 36.3 g/dL 12/08/2024 5:38 AM [facility] RDW-CV 17.2(H) 11.3 - 14.8 % 12/08/2024 5:38 AM [facility] Platelet Count 121(L) 150 - 420 x10E9/L 12/08/2024 5:38 AM [facility] MPV 11.1 7.8 - 11.4 fL 12/08/2024 5:38 AM [facility] Neutrophil % 76.9(H) 41.0 - 74.0 % 12/08/2024 5:38 AM [facility] Lymphocyte % 7.2(L) 17.0 - 47.0 % 12/08/2024 5:38 AM [facility] Monocyte % 10.9 3.0 - 11.0 % 12/08/2024 5:38 AM [facility] Eosinophil % 3.9 0.0 - 7.0 % 12/08/2024 5:38 AM [facility] Basophil % 0.3 0.0 - 1.6 % 12/08/2024 5:38 AM [facility] Immature Granulocytes % 0.8 0.0 - 1.0 % 12/08/2024 5:38 AM [facility] Neutrophil Absolute 2.76 1.60 - 7.50 x10E9/L 12/08/2024 5:38 AM [facility] Lymphocyte Absolute 0.26(L) 1.00 - 4.40 x10E9/L 12/08/2024 5:38 AM [facility] Monocyte Absolute 0.39 0.15 - 1.00 x10E9/L 12/08/2024 5:38 AM [facility] Eosinophil Absolute 0.14 0.00 - 0.60 x10E9/L 12/08/2024 5:38 AM [facility] Basophil Absolute 0.01 0.00 - 0.13 x10E9/L 12/08/2024 5:38 AM [facility] Blood BLOOD SPECIMEN / Unknown Venipuncture / Unknown 12/08/2024 5:06 AM [facility] 12/08/2024 5:20 AM [facility] Juancarlos Lujan MD LAB - HEMATOLOGY ORD ERABLES Performing Organization Address City/State/[facility] Co de Phone Number [address] [address], [facility] [phone] * (ABNORMAL) COMPREHENSIVE METABOLIC PANEL (12/08/2024 5:06 AM [facility]) Only the most recent of23 resultswithin the time period is included. BUN 27(H) 7 - 26 mg/dL 12/08/2024 5:56 AM [facility] Creatinine 1.28(H) 0.71 - 1.16 mg/dL 12/08/2024 5:56 AM [facility] Sodium 136 136 - 145 mmol/L 12/08/2024 5:56 AM [facility] Potassium 3.7 3.5 - 4.5 mmol/L 12/08/2024 5:56 AM [facility] Chloride 110(H) 98 - 107 mmol/L 12/08/2024 5:56 AM [facility] CO2 16(L) 22 - 29 mmol/L 12/08/2024 5:56 AM [facility] Glucose 171(H) 70 - 99 mg/dL 12/08/2024 5:56 AM [facility] Calcium 9.5 8.4 - 10.2 mg/dL 12/08/2024 5:56 AM [facility] Protein Total 5.9(L) 6.0 - 8.3 g/dL 12/08/2024 5:56 AM [facility] Albumin 2.7(L) 3.4 - 5.0 g/dL 12/08/2024 5:56 AM [facility] Bilirubin Total 0.9 0.2 - 1.2 mg/dL 12/08/2024 5:56 AM [facility] Alkaline Phosphatase 251(H) 40 - 150 U/L 12/08/2024 5:56 AM [facility] ALT 31 5 - 55 U/L 12/08/2024 5:56 AM [facility] AST 27 5 - 34 U/L 12/08/2024 5:56 AM [facility] Anion Gap 10 6 - 16 12/08/2024 5:56 AM [facility] BUN/Creatinine Ratio 21 7 - 23 12/08/2024 5:56 AM [facility] Osmolality Calculated 291 275 - 295 mOsm/kg 12/08/2024 5:56 AM [facility] Albumin/Globulin Ratio 0.8(L) 1.1 - 2.3 12/08/2024 5:56 AM [facility] eGFR by CKD-EPI 57(L) >=90 mL/min/1.7 3 m2 12/08/2024 5:56 AM [facility] Blood BLOOD SPECIMEN / Unknown Venipuncture / Unknown 12/08/2024 5:06 AM [facility] 12/08/2024 5:28 AM REPRODUCTION ORDER PROCESSOR Juancarlos Lujan MD LAB - CHEMISTRY JOHN PAUL RIVAS Performing Organization Address City/[facility]/ZIP Co de Phone Number [address] [address], [facility] [phone] * (ABNORMAL) PHOSPHORUS BLOOD (12/08/2024 5:06 AM REPRODUCTION ORDER PROCESSOR) Only the most recent of19 resultswithin the time period is included. Phosphorus 1.9(L) 2.8 - 5.1 mg/dL 12/08/2024 5:56 AM [facility] Blood BLOOD SPECIMEN / Unknown Venipuncture / Unknown 12/08/2024 5:06 AM REPRODUCTION ORDER PROCESSOR 12/08/2024 5:28 AM REPRODUCTION ORDER PROCESSOR Juancarlos Lujan MD LAB - CHEMISTRY JOHN PAUL RIVAS Performing Organization Address [facility] Co de Phone Number [address] [address], [facility] [phone] * MAGNESIUM BLOOD (12/08/2024 5:06 AM REPRODUCTION ORDER PROCESSOR) Only the most recent of22 resultswithin the time period is included. Magnesium 2.1 1.6 - 2.6 mg/dL 12/08/2024 5:56 AM [facility] Blood BLOOD SPECIMEN / Unknown Venipuncture / Unknown 12/08/2024 5:06 AM REPRODUCTION ORDER PROCESSOR 12/08/2024 5:28 AM REPRODUCTION ORDER PROCESSOR Juancarlos Lujan MD LAB - CHEMISTRY JOHN PAUL RIVAS Performing Organization Address [facility]/ZIP Co de Phone Number [address] [address], [place] [phone] * IGF BINDING PROTEIN 1 (12/06/2024 5:39 AM REPRODUCTION ORDER PROCESSOR) IGF Binding Protein-1 19 5 - 34 ng/mL 12/17/2024 3:04 AM [facility] ([facility]) Comment: The limit of detection of this assay is 5 ng/mL. A proportion of normal patients will have results less than 5 ng/mL. This test was developed and its analytical performance characteristics have been determined by [facility]. It has not been cleared or approved by FDA. This assay has been validated pursuant to the CLIA regulations and is used for clinical purposes. Performed by: [facility] [address] [place] [address] Catie Pope MD, PhD, JIMMY, Blood BLOOD SPECIMEN / Unknown Lab Venipuncture / Unknown 12/06/2024 5:39 AM REPRODUCTION ORDER PROCESSOR 12/06/2024 5:58 AM REPRODUCTION ORDER PROCESSOR Juancarlos Lujan MD LAB - CHEMISTRY JOHN PAUL RIVAS Performing Organization Address [facility] Co de Phone Number [employer] [facility]) [address] [place] [address] * INSULIN LIKE GROWTH FACTOR 2 (12/06/2024 5:39 AM REPRODUCTION ORDER PROCESSOR) [facility] INSULIN-LIKE GROWTH FACTOR (IGF-2) 156 ng/mL 12/09/2024 1:29 PM REPRODUCTION ORDER PROCESSOR [facility] ([facility]) Comment: INTERPRETIVE INFORMATION: Insulin-Like Growth Factor 2 Prepubertal (0-11 years old): 127 to 473 ng/mL Postpubertal (12 years and older): 180 to 580 ng/mL This test was developed and its performance characteristics determined by [facility]. It has not been cleared or approved by the US Food and Drug Administration. This test was performed in a CLIA certified laboratory and is intended for clinical purposes. Performed By: [facility] [address] [place] [address] Associate Store Manager: Armando Lowe MD, PhD CLIA Number: [id number] Blood BLOOD SPECIMEN / Unknown Lab Venipuncture / Unknown 12/06/2024 5:39 AM REPRODUCTION ORDER PROCESSOR 12/06/2024 5:58 AM REPRODUCTION ORDER PROCESSOR Juancarlos Lujan MD LAB - CHEMISTRY JOHN PAUL RIVAS Performing Organization Address [facility]/ZIP Co de Phone Number [facility]) [address] [place] [address] * INSULIN FREE + TOTAL (12/06/2024 5:39 AM REPRODUCTION ORDER PROCESSOR) Only the most recent of2 resultswithin the time period is included. Pathologist [facility] [place] Insulin Free 9 3 - 25 uIU/mL 12/10/2024 9:36 AM REPRODUCTION ORDER PROCESSOR [facility] ([facility]) Insulin 11 3 - 25 uIU/mL 12/10/2024 9:36 AM REPRODUCTION ORDER PROCESSOR [facility] ([facility]) Comment: INTERPRETIVE INFORMATION: Insulin, Free and Total This test reacts on a nearly equimolar basis with the analogs insulin aspart, insulin glargine, and insulin lispro. Insulin detemir exhibits approximately 50 percent cross-reactivity. Test reactivity with insulin glulisine is negligible (<3 percent). To convert to pmol/L, multiply uIU/mL by 6.0. Reference intervals established for fasting specimens. Performed By: [facility] [address] [place] [address] Associate Store Manager: Armando Lowe MD, PhD CLIA Number: [id number] Blood BLOOD SPECIMEN / Unknown Lab Venipuncture / Unknown 12/06/2024 5:39 AM REPRODUCTION ORDER PROCESSOR 12/06/2024 5:58 AM REPRODUCTION ORDER PROCESSOR Juancarlos Lujan MD LAB - CHEMISTRY ORDUlysses RIVAS [facility] [employer] [facility]) [address] * (ABNORMAL) C-PEPTIDE (12/06/2024 5:39 AM REPRODUCTION ORDER PROCESSOR) Only the most recent of2 resultswithin the time period is included. Pathologist [facility] [place] C-Peptide 6.9(H) 0.5 - 3.3 ng/mL 12/08/2024 9:16 PM REPRODUCTION ORDER PROCESSOR [facility] ([facility]) Comment: INTERPRETIVE INFORMATION: Serum, C-Peptide Reference Interval applies to fasting specimens. To convert to nmol/L, multiply by 0.33 Performed By: [facility] [address] [place] [address] Associate Store Manager: Armando Lowe MD, PhD CLIA Number: [id number] Blood BLOOD SPECIMEN / Unknown Lab Venipuncture / Unknown 12/06/2024 5:39 AM REPRODUCTION ORDER PROCESSOR 12/06/2024 5:58 AM REPRODUCTION ORDER PROCESSOR Juancarlos Lujan MD LAB - CHEMISTRY JOHN PAUL RIVAS Performing Organization Address City/[facility]/ZIP Co de Phone Number [facility] [employer] [facility]) [address] [place] [address] * (ABNORMAL) PROINSULIN (12/06/2024 5:39 AM REPRODUCTION ORDER PROCESSOR) Only the most recent of2 resultswithin the time period is included. Proinsulin 10.1(H) <=7.2 pmol/L 12/10/2024 7:21 AM REPRODUCTION ORDER PROCESSOR [facility] ([facility]) Comment: Performed By: [facility] [address] [place] [address] Associate Store Manager: Armando Lowe MD, PhD CLIA Number: [id number] Blood BLOOD SPECIMEN / Unknown Lab Venipuncture / Unknown 12/06/2024 5:39 AM REPRODUCTION ORDER PROCESSOR 12/06/2024 5:58 AM REPRODUCTION ORDER PROCESSOR Juancarlos Lujan MD LAB - CHEMISTRY JOHN PAUL RIVAS Performing Organization Address [facility] Co de Phone Number [facility] ([facility]) [address] [place] [address] * HYDROXYBUTYRATE BETA (12/06/2024 5:39 AM REPRODUCTION ORDER PROCESSOR) Only the most recent of3 resultswithin the time period is included. Beta-Hydroxybu tyrate <0.50 <0.50 mmol/L 12/06/2024 6:29 AM REPRODUCTION ORDER PROCESSOR [facility] Blood BLOOD SPECIMEN / Unknown Lab Venipuncture / Unknown 12/06/2024 5:39 AM REPRODUCTION ORDER PROCESSOR 12/06/2024 6:02 AM REPRODUCTION ORDER PROCESSOR Juancarlos Lujan MD LAB - CHEMISTRY JOHN PAUL RIVAS [address] [address], [facility] [phone] * CORTISOL BLOOD AM (12/06/2024 5:39 AM REPRODUCTION ORDER PROCESSOR) Cortisol AM 11.6 3.7 - 19.4 ug/dL 12/06/2024 6:47 AM REPRODUCTION ORDER PROCESSOR [facility] Blood BLOOD SPECIMEN / Unknown Lab Venipuncture / Unknown 12/06/2024 5:39 AM REPRODUCTION ORDER PROCESSOR 12/06/2024 6:02 AM REPRODUCTION ORDER PROCESSOR Narrative [facility] - 12/06/2024 6:47 AM REPRODUCTION ORDER PROCESSOR Normal cortisol levels are generally highest in the morning hours and lowest from late evening through the clarifier operator helper 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 The PM measurements of cortisol run approximately one-half to one-third of the AM values. Juancarlos Lujan MD LAB - CHEMISTRY JOHN PAUL RIVAS [address] [address], [facility] [phone] * US Abdomen Limited (12/04/2024 11:40 AM REPRODUCTION ORDER PROCESSOR) Anatomical Region Laterality Modality Abdomen Ultrasound 12/04/2024 11:4 9 AM REPRODUCTION ORDER PROCESSOR Impressions 12/04/2024 1:29 PM REPRODUCTION ORDER PROCESSOR IMPRESSION: 1. Hepatic cirrhosis with sequela of portal hypertension including moderate volume ascites. 2. No cholelithiasis. 3. Moderate to large volume ascites. > Interpreting Provider: Patsy Orellana MD on 12/04/2024 1:29 PM Narrative 12/04/2024 1:29 PM REPRODUCTION ORDER PROCESSOR PROCEDURE: US ABDOMEN LIMITED DATE/TIME OF EXAM: 12/04/2024 11:40 AM CLINICAL INFORMATION: None relevant/not provided if blank. Indication: K74.60: Hepatic cirrhosis, unspecified hepatic cirrhosis type, unspecified whether ascites present (HCC) Additional History: COMPARISON: Ultrasound from 10/25/2024 TECHNIQUE: Real-time ultrasound of the upper abdomen with DICOM image capture performed by chief nuclear medicine technologist. FINDINGS: The liver is coarse in [...] abdomen with DICOM image capture performed by chief nuclear medicine technologist. FINDINGS: The liver is coarse in [...] * CARDIAC EKG ORDER (12/04/2024 11:29 AM REPRODUCTION ORDER PROCESSOR) Only the most recent of2 resultswithin the time period is included. Narrative 12/04/2024 11:29 AM REPRODUCTION ORDER PROCESSOR Ordered by an unspecified provider. Scanned Document CARDIAC SERVICES ORD ERABLES * UREA NITROGEN URINE RANDOM (12/04/2024 9:39 AM REPRODUCTION ORDER PROCESSOR) Urea Nitrogen Random Urine 361 Not Established mg/dL 12/04/2024 11:02 AM REPRODUCTION ORDER PROCESSOR [facility] Urine URINE SPECIMEN OBTAINED BY CLEAN CATCH PROCEDURE / Unknown Collection / Unknown 12/04/2024 9:39 AM REPRODUCTION ORDER PROCESSOR 12/04/2024 10:13 AM REPRODUCTION ORDER PROCESSOR Narrative Authorizing Provider Result Vanna Lujan MD LAB - URINE CHEMISTR Y ORDERABLES Performing Organization Address City/[facility]/ZIP Co de Phone Number [address] [address], [facility] [phone] * FOLATE (12/04/2024 9:38 AM REPRODUCTION ORDER PROCESSOR) Only the most recent of2 resultswithin the time period is included. Folate 10.1 7.0 - 31.4 ng/mL 12/04/2024 11:27 AM REPRODUCTION ORDER PROCESSOR [facility] Blood BLOOD SPECIMEN / Unknown Venipuncture / Unknown 12/04/2024 9:38 AM REPRODUCTION ORDER PROCESSOR 12/04/2024 10:14 AM REPRODUCTION ORDER PROCESSOR Juancarlos Lujan MD LAB - CHEMISTRY JOHN PAUL RIVAS Performing Organization Address [facility] Co de Phone Number [address] [address], [place] [phone] * (ABNORMAL) VITAMIN B12 (12/04/2024 9:38 AM REPRODUCTION ORDER PROCESSOR) Only the most recent of2 resultswithin the time period is included. Vitamin B12 1,880(H) 213 - 816 pg/mL 12/04/2024 11:27 AM REPRODUCTION ORDER PROCESSOR [facility] Blood BLOOD SPECIMEN / Unknown Venipuncture / Unknown 12/04/2024 9:38 AM REPRODUCTION ORDER PROCESSOR 12/04/2024 10:14 AM REPRODUCTION ORDER PROCESSOR Narrative Authorizing Provider Result Vanna Lujan MD LAB - CHEMISTRY JOHN PAUL RIVAS Performing Organization Address [facility]/ZIP Co de Phone Number [address] [address], [place] [phone] * (ABNORMAL) IRON + TRANSFERRIN PANEL (12/04/2024 9:38 AM REPRODUCTION ORDER PROCESSOR) Iron 64 50 - 175 ug/dL 12/04/2024 10:48 AM [facility] Transferrin 150(L) 174 - 382 mg/dL 12/04/2024 10:48 AM [facility] Transferrin Saturation % 34 16 - 50 % 12/04/2024 10:48 AM [facility] TIBC Calculated 188(L) 240 - 450 ug/dL 12/04/2024 10:48 AM [facility] Blood BLOOD SPECIMEN / Unknown Venipuncture / Unknown 12/04/2024 9:38 AM REPRODUCTION ORDER PROCESSOR 12/04/2024 10:15 AM REPRODUCTION ORDER PROCESSOR Juancarlos Lujan MD LAB - CHEMISTRY JOHN PAUL RIVAS [address] [address], [facility] [phone] * (ABNORMAL) FERRITIN (12/04/2024 9:38 AM REPRODUCTION ORDER PROCESSOR) Ferritin 339(H) 22 - 275 ng/mL 12/04/2024 11:05 AM [facility] Blood BLOOD SPECIMEN / Unknown Venipuncture / Unknown 12/04/2024 9:38 AM REPRODUCTION ORDER PROCESSOR 12/04/2024 10:15 AM REPRODUCTION ORDER PROCESSOR Juancarlos Lujan MD LAB - CHEMISTRY ORDUlysses RIVAS Performing Organization Address City/[facility]/ZIP Co de Phone Number [address] [address], [place] [phone] * (ABNORMAL) URINALYSIS REFLEX MICROSCOPIC REFLEX CULTURE (12/04/2024 12:17 AM REPRODUCTION ORDER PROCESSOR) Only the most recent of2 resultswithin the time period is included. Color UA Yellow Straw, Yellow 12/04/2024 12:33 AM [facility] Clarity UA Clear Clear 12/04/2024 12:33 AM [facility] Specific [place] UA 1.010 1.005 - 1.030 12/04/2024 12:33 AM [facility] pH UA 5.0 5.0 - 8.0 pH 12/04/2024 12:33 AM [facility] Protein UA Negative Negative 12/04/2024 12:33 AM [facility] Glucose UA 1+(A) Negative 12/04/2024 12:33 AM [facility] Ketone UA Negative Negative 12/04/2024 12:33 AM [facility] Bilirubin UA Negative Negative 12/04/2024 12:33 AM [facility] Blood UA Negative Negative 12/04/2024 12:33 AM [facility] Nitrite UA Negative Negative 12/04/2024 12:33 AM [facility] Leukocyte Esterase Negative Negative 12/04/2024 12:33 AM [facility] Urobilinogen UA Negative Negative mg/dL 12/04/2024 12:33 AM [facility] Comment UA Microscopic not indicated. 12/04/2024 12:33 AM [facility] Urine URINE SPECIMEN OBTAINED BY CLEAN CATCH PROCEDURE / Unknown Collection / Unknown 12/04/2024 12:17 AM REPRODUCTION ORDER PROCESSOR 12/04/2024 12:22 AM REPRODUCTION ORDER PROCESSOR Narrative [facility] - 12/04/2024 12:33 AM REPRODUCTION ORDER PROCESSOR Sarika Martin PA-C LAB - URINALY SIS ORDERABLES [facility] [address] [phone], [facility] [phone] * LYTES (NA K CL) URINE RANDOM PANEL (12/04/2024 12:17 AM REPRODUCTION ORDER PROCESSOR) Sodium Urine 52 Not Established mmol/L 12/04/2024 12:47 AM [facility] Potassium Urine 22.9 Not Established mmol/L 12/04/2024 12:47 AM [facility] Chloride Random Urine 82 Not Established mmol/L 12/04/2024 12:47 AM [facility] Urine URINE SPECIMEN OBTAINED BY CLEAN CATCH PROCEDURE / Unknown Collection / Unknown 12/04/2024 12:17 AM REPRODUCTION ORDER PROCESSOR 12/04/2024 12:22 AM REPRODUCTION ORDER PROCESSOR Juancarlos Lujan MD LAB - URINE CHEMISTR Y ORDERABLES [address] [address], [facility] [phone] * CREATININE URINE RANDOM (12/04/2024 12:17 AM REPRODUCTION ORDER PROCESSOR) Creatinine Urine 55.70 Not Established mg/dL 12/04/2024 12:47 AM REPRODUCTION ORDER PROCESSOR [facility] Urine URINE SPECIMEN OBTAINED BY CLEAN CATCH PROCEDURE / Unknown Collection / Unknown 12/04/2024 12:17 AM REPRODUCTION ORDER PROCESSOR 12/04/2024 12:22 AM REPRODUCTION ORDER PROCESSOR Juancarlos Lujan MD LAB - URINE CHEMISTR Y ORDERABLES Performing Organization Address City/[facility]/ZIP Co de Phone Number [address] [address], [facility] [phone] * CULTURE BLOOD (12/03/2024 6:17 PM REPRODUCTION ORDER PROCESSOR) Only the most recent of4 resultswithin the time period is included. Culture No growth day 5 ADOLPH 12/08/2024 11:01 PM REPRODUCTION ORDER PROCESSOR [facility] Blood PERIPHERAL BLOOD / Unknown Lab Venipuncture / Unknown 12/03/2024 6:17 PM REPRODUCTION ORDER PROCESSOR 12/03/2024 6:39 PM REPRODUCTION ORDER PROCESSOR Homer Moran MD LAB - MICROBIO LOGY ORDERABLES Performing Organization Address City/[facility]/ZIP Co de Phone Number [facility] [address] [place] [id number], [facility] [phone] * CT Head Wo Contrast (12/03/2024 4:56 PM REPRODUCTION ORDER PROCESSOR) Only the most recent of3 resultswithin the time period is included. Anatomical Region Laterality Modality Head Computed Tomogra phy 12/03/2024 5:00 PM REPRODUCTION ORDER PROCESSOR Impressions 12/03/2024 5:01 PM REPRODUCTION ORDER PROCESSOR IMPRESSION: 1. No acute intracranial process. > Interpreting Provider: Abraham Mahajan MD on 12/03/2024 5:01 PM Narrative 12/03/2024 5:01 PM REPRODUCTION ORDER PROCESSOR PROCEDURE: CT HEAD WO CONTRAST DATE/TIME OF [...] extra-axial fluid collections are identified. There is hvoe-gp-ufimzcrz cerebral volume loss with associated ex vacuo [...] or extra-axial fluid collections are identified. Thereis cxjw-rb-zsmebrne cerebral volume loss with associated ex vacuoventricular [...] HIGH SENSITIVE REFLEX 1HOUR (12/03/2024 3:26 PM REPRODUCTION ORDER PROCESSOR) Only the most recent of2 resultswithin the time period is included. [facility] Troponin I High Sensitive 11 <=35 ng/L 12/03/2024 4:33 PM REPRODUCTION ORDER PROCESSOR [facility] Delta Troponin I HS 12/03/2024 4:33 PM REPRODUCTION ORDER PROCESSOR [facility] Comment:Delta value intentio santy not calculated. Baseline to 1 hour specimen collection interval exceeded. Blood BLOOD SPECIMEN / Unknown Venipuncture / Unknown 12/03/2024 3:26 PM REPRODUCTION ORDER PROCESSOR 12/03/2024 3:56 PM REPRODUCTION ORDER PROCESSOR Sarika Martin PA-C LAB - BOOM CAT OPERATOR RY ORDERABLES [facility] [address] [place] [address], [facility] [phone] * SARS-COV-2 (COVID-19) FLU A/B RSV PCR RAPID (12/03/2024 12:36 PM REPRODUCTION ORDER PROCESSOR) [facility] COVID-19 PCR Not detected Not detected 12/03/19 1:56 PM REPRODUCTION ORDER PROCESSOR [facility] Influenza A PCR Not detected Not detected 12/03/2024 1:56 PM REPRODUCTION ORDER PROCESSOR [facility] Influenza B PCR Not detected Not detected 12/03/2024 1:56 PM REPRODUCTION ORDER PROCESSOR [facility] RSV PCR Not detected Not detected 12/03/2024 1:56 PM REPRODUCTION ORDER PROCESSOR [facility] Microbiology SPECIMEN FROM NASOPHARYNGEAL STRUCTURE / Unknown Collection / Unknown 12/03/2024 12:36 PM REPRODUCTION ORDER PROCESSOR 12/03/2024 12:40 PM REPRODUCTION ORDER PROCESSOR Narrative [facility] - 12/03/2024 1:56 PM REPRODUCTION ORDER PROCESSOR This nucleic acid amplification assay has been [...] Sarika GALVIN-C LAB - MICROBI OLOGY ORDERABLES [address] [address], [facility] [phone] * PTT [facility] (12/03/2024 12:35 PM REPRODUCTION ORDER PROCESSOR) APTT 26.4 23.0 - 38.4 Seconds 12/03/2024 1:06 PM REPRODUCTION ORDER PROCESSOR [facility] Comment:Suggested therapeuti c range for full dose I.V. unfractionated heparin therapy for venous thromboembolism is 71 to 109 seconds. Blood BLOOD SPECIMEN / Unknown Venipuncture / Unknown 12/03/2024 12:35 PM REPRODUCTION ORDER PROCESSOR 12/03/2024 12:43 PM REPRODUCTION ORDER PROCESSOR Sarika Carvajalbeth [employer] PA-C LAB - COAGULA TION ORDERABLES [address] [address], [place] [phone] * PT-INR [facility] (12/03/2024 12:35 PM REPRODUCTION ORDER PROCESSOR) Only the most recent of9 resultswithin the time period is included. PT 14.7 12.1 - 14.8 Seconds 12/03/2024 1:06 PM REPRODUCTION ORDER PROCESSOR [facility] INR 1.2 See Comment 12/03/2024 1:06 PM REPRODUCTION ORDER PROCESSOR [facility] Comment:The suggested therap eutic range for standard coumadin (warfarin) therapy is an INR of 2.0-3.0. For high-risk patients (Mechanical Mitral Valve Prosthesis, etc.), the suggested prophylactic therapeutic range is an INR of 2.5-3.5. Blood BLOOD SPECIMEN / Unknown Venipuncture / Unknown 12/03/2024 12:35 PM REPRODUCTION ORDER PROCESSOR 12/03/2024 12:43 PM REPRODUCTION ORDER PROCESSOR Sarika Martin PA-C LAB - COAGULA TION ORDERABLES Performing Organization Address City/[facility]/ZIP Co de Phone Number [address] [address], [facility] [phone] * TROPONIN-I HIGH SENSITIVE BASELINE + 1HR (12/03/2024 12:35 PM REPRODUCTION ORDER PROCESSOR) Only the most recent of2 resultswithin the time period is included. Troponin I High Sensitive 11 <=35 ng/L 12/03/2024 1:15 PM REPRODUCTION ORDER PROCESSOR [facility] Blood BLOOD SPECIMEN / Unknown Venipuncture / Unknown 12/03/2024 12:35 PM REPRODUCTION ORDER PROCESSOR 12/03/2024 12:42 PM REPRODUCTION ORDER PROCESSOR Sarika Martin PA-C LAB - BOOM CAT OPERATOR RY ORDERABLES [address] [address], [facility] [phone] * AMMONIA (12/03/2024 12:35 PM REPRODUCTION ORDER PROCESSOR) Only the most recent of4 resultswithin the time period is included. Ammonia 51 <=72 umol/L 12/03/2024 12:55 PM REPRODUCTION ORDER PROCESSOR [facility] Blood BLOOD SPECIMEN / Unknown Venipuncture / Unknown 12/03/2024 12:35 PM REPRODUCTION ORDER PROCESSOR 12/03/2024 12:55 PM REPRODUCTION ORDER PROCESSOR Sarika Martin PA-C LAB - BOOM CAT OPERATOR RY ORDERABLES Performing Organization Address [facility]/ZIP Co de Phone Number [facility] [place] [id number] [place] [address], [facility] [phone] * EKG 12-LEAD (12/03/2024 12:21 PM REPRODUCTION ORDER PROCESSOR) Only the most recent of2 resultswithin the time period is included. Ventricular Rate 66 BPM [facility] MUSE Atrial Rate 66 BPM [facility] MUSE P-R Interval 110 ms [facility] MUSE QRS Duration ms 86 ms [facility] MUSE Q-T Interval ms 378 ms [facility] MUSE QTC Calculation (Bezet) 396 ms [facility] MUSE Calculated P Rutledge 15 degrees [facility] MUSE Calculated T Rutledge 85 degrees [facility] MUSE Interpretation EKG SINUS RHYTHM POSSIBLE INFERIOR INFARCT , AGE UNDETERMINED ANTERIOR INFARCT (CITED ON OR BEFORE 30-AUG-2024) ABNORMAL ECG WHEN COMPARED WITH ECG OF 06-NOV-2024 15:17, BORDERLINE CRITERIA FOR INFERIOR INFARCT ARE NOW PRESENT Confirmed by JESUS MESA, [facility] ([id number]) on 12/13/2024 11:34:09 AM [facility] MUSE 12/03/2024 12:2 1 PM REPRODUCTION ORDER PROCESSOR 12/13/2024 11:34 AM REPRODUCTION ORDER PROCESSOR Sarika Martin PA-C ECG ORDERABLE S Performing Organization Address [facility] de Phone Number [facility] MUSE * XR CHEST 2VW (12/03/2024 11:24 AM REPRODUCTION ORDER PROCESSOR) Anatomical Region Laterality Modality Chest Digital Radiogra phy 12/03/2024 11:4 7 AM REPRODUCTION ORDER PROCESSOR Narrative 12/03/2024 11:53 AM REPRODUCTION ORDER PROCESSOR PROCEDURE: XR CHEST 2VW, DATE/TIME OF EXAM: 12/03/2024 11:33 AM, LOCATION [facility] INDICATION: R41.82: Altered mental status, unspecified altered [...] report was drafted by Yaw Alvarez MD (residential support worker) 12/03/2024 11:47 AM. Candice Haddad MD have personally reviewed and interpreted this examination/study. > Interpreting Provider: Candice Gordon MD on 12/03/2024 11:53 AM Procedure Note Candice Gordon MD - 12/03/2024 PROCEDURE: XR CHEST 2VW, DATE/TIME OF EXAM: 12/03/2024 11:33 AM, LOCATION [facility] INDICATION: R41.82: Altered mental status, unspecified altered [...] report was drafted by Yaw Alvarez MD (residential support worker) 12/03/2024 11:47 AM. Candice Haddad MD have personally reviewed and interpreted this examination/study. > Interpreting Provider: Candice Gordon MD on 12/03/2024 11:53 AM Sarika Martin PA-C DIAGNOSTIC IM AGING ORDERABLES * SYPHILIS ANTIBODY CASCADING REFLEX (11/07/2024 4:27 AM REPRODUCTION ORDER PROCESSOR) Treponema pallidum Antibody Non-react pepe Non-react pepe 11/07/2024 5:23 AM REPRODUCTION ORDER PROCESSOR [facility] Comment: No Laboratory evidence of syphilis infection. Note: Circulating antibodies may be low or undetectable in early infection. If recent exposure is suspected, re-draw sample in 2-4 weeks and repeat testing. Blood BLOOD SPECIMEN / Unknown Venipuncture / Unknown 11/07/2024 4:27 AM REPRODUCTION ORDER PROCESSOR 11/07/2024 4:37 AM REPRODUCTION ORDER PROCESSOR Juancarlos Lujan MD LAB - SEROLOGY ORDER DENISE [address] [address], [facility] [phone] * HIV-1 HIV-2 ANTIBODY + HIV P24 AG PANEL (11/07/2024 4:27 AM REPRODUCTION ORDER PROCESSOR) HIV Antigen/Antibod y 1 & 2 Non-reacti ve Non-react pepe 11/07/2024 5:23 AM REPRODUCTION ORDER PROCESSOR [facility] Comment:No Laboratory eviden ce of HIV infection. Blood BLOOD SPECIMEN / Unknown Venipuncture / Unknown 11/07/2024 4:27 AM REPRODUCTION ORDER PROCESSOR 11/07/2024 4:37 AM REPRODUCTION ORDER PROCESSOR Juancarlos Lujan MD LAB - CHEMISTRY ORDE EVELYN [address] [address], [place] [phone] * TSH REFLEX FREE T4 (11/07/2024 4:27 AM REPRODUCTION ORDER PROCESSOR) TSH 0.697 0.350 - 4.940 uIU/mL 11/07/2024 5:41 AM REPRODUCTION ORDER PROCESSOR [facility] Blood BLOOD SPECIMEN / Unknown Venipuncture / Unknown 11/07/2024 4:27 AM REPRODUCTION ORDER PROCESSOR 11/07/2024 4:39 AM REPRODUCTION ORDER PROCESSOR Juancarlos Lujan MD LAB - CHEMISTRY JOHN PAUL RIVAS Performing Organization Address City/[facility]/ZIP Co de Phone Number [facility] [address] [place] [address], [facility] [phone] * VITAMIN B1 (11/07/2024 4:27 AM REPRODUCTION ORDER PROCESSOR) Pathologist [facility] Vitamin B1 Whole Blood 96 70 - 180 nmol/L 11/09/2024 12:56 PM REPRODUCTION ORDER PROCESSOR [facility] [employer] ([facility]) Comment: INTERPRETIVE INFORMATION: Vitamin B1, Whole Blood This assay measures the concentration of thiamine diphosphate (TDP), the primary active form of vitamin B1. Approximately 90 percent of vitamin B1 present in whole blood is TDP. Thiamine and thiamine monophosphate, which comprise the remaining 10 percent, are not measured. This test was developed and its performance characteristics determined by [employer]. It has not been cleared or approved by the [place] Food and Drug Administration. This test was performed in a CLIA certified laboratory and is intended for clinical purposes. Performed By: [employer] [address] [place] [address] Associate Store Manager: Armando Lowe MD, PhD CLIA Number: [id number] Blood BLOOD SPECIMEN / Unknown Venipuncture / Unknown 11/07/2024 4:27 AM REPRODUCTION ORDER PROCESSOR 11/07/2024 4:37 AM REPRODUCTION ORDER PROCESSOR Juancarlos Lujan MD LAB - CHEMISTRY JOHN PAUL RIVAS Performing Organization Address City/[facility]/ZIP Co de Phone Number [facility] [employer] [facility]) [address] * (ABNORMAL) URINALYSIS W/MICROSCOPIC REFLEX TO CULTURE (11/06/2024 11:44 PM REPRODUCTION ORDER PROCESSOR) Only the most recent of2 resultswithin the time period is included. Color UA Yellow Straw, Yellow 11/07/2024 12:16 AM REPRODUCTION ORDER PROCESSOR [facility] Clarity UA Clear Clear 11/07/2024 12:16 AM REPRODUCTION ORDER PROCESSOR [facility] Specific [place] UA 1.011 1.005 - 1.030 11/07/2024 12:16 AM [facility] pH UA 5.0 5.0 - 8.0 pH 11/07/2024 12:16 AM [facility] Protein UA Negative Negative 11/07/2024 12:16 AM [facility] Glucose UA 3+(A) Negative 11/07/2024 12:16 AM [facility] Ketone UA Negative Negative 11/07/2024 12:16 AM [facility] Bilirubin UA Negative Negative 11/07/2024 12:16 AM [facility] Blood UA Negative Negative 11/07/2024 12:16 AM [facility] Nitrite UA Negative Negative 11/07/2024 12:16 AM [facility] Leukocyte Esterase Negative Negative 11/07/2024 12:16 AM [facility] Urobilinogen UA Negative Negative mg/dL 11/07/2024 12:16 AM [facility] RBC UA 0-2 None Seen, 0-2, 3-5 /HPF 11/07/2024 12:16 AM [facility] WBC UA 0-5 None Seen, 0-5 /HPF 11/07/2024 12:16 AM [facility] Bacteria UA Trace(A) None /HPF 11/07/2024 12:16 AM [facility] Squamous Epithelial Cells UA None Seen None Seen, 0-2, 3-5 /HPF 11/07/2024 12:16 AM [facility] Mucus UA 1+ /LPF 11/07/2024 12:16 AM [facility] Hyaline Casts UA 0-2 None Seen, 0-2 /LPF 11/07/2024 12:16 AM [facility] Urine URINE SPECIMEN OBTAINED BY CLEAN CATCH PROCEDURE / Unknown Collection / Unknown 11/06/2024 11:44 PM REPRODUCTION ORDER PROCESSOR 11/07/2024 12:04 AM [facility] - 11/07/2024 12:16 AM [facility] Culture Not Indicated Paris Quintero PROPERTY CLERK-COLLEGE INTERN LAB - URINALY SIS ORDERABLES [facility] [address] [place] [address], [facility] [phone] * URINE DRUG SCREEN IMMUNOASSAY (11/06/2024 11:43 PM [facility]) [facility] Amphetamines Screen Urine Negative Negative: < 1000 ng/mL 11/07/2024 12:43 AM [facility] Barbiturates Screen Urine Negative Negative: < 200 ng/mL 11/07/2024 12:43 AM [facility] Benzodiazepine Screen Urine Negative Negative: < 200 ng/mL 11/07/2024 12:43 AM [facility] Opiates Urine Negative Negative: < 300 ng/mL 11/07/2024 12:43 AM [facility] Cocaine Metabolites Urine Negative Negative: < 300 ng/mL 11/07/2024 12:43 AM [facility] Phencyclidine Screen Urine Negative Negative: < 25 ng/ml 11/07/2024 12:43 AM [facility] Cannabinoids Screen Urine Negative Negative: <50 ng/mL 11/07/2024 12:43 AM [facility] Methadone Screen Urine Negative Negative: < 300 ng/mL 11/07/2024 12:43 AM [facility] Fentanyl Screen Urine Negative Negative: <1.5 ng/mL 11/07/2024 12:43 AM [facility] Urine URINE / Unknown Collection / Unknown 11/06/2024 11:43 PM [facility] 11/07/2024 12:04 AM [facility] - 11/07/2024 12:43 AM [facility] The Urine Toxicology Screening Panel does not screen for Propoxyphene, Meprobamate, Carisoprodol, Trazodone, efkl-xos-ybpklco medications and/or volatiles (Acetone, Isopropanol, Methanol or Ethylene Glycol). Ethanol, Salicylate, Acetaminophen, Tricyclic Antidepressants and several therapeutic drugs may be individually assayed in serum or plasma specimen. Toxicology testing by the [facility] is an aid to medical diagnosis and treatment of patients. No documented chain of custody was maintained. Results are intended to be used for clinical purposes only. Juancarlos Lujan MD LAB - URINE CHEMISTR Y ORDERABLES [facility] [address] [place] [address], [facility] [phone] * PROTEIN BODY FLUID (11/06/2024 8:27 PM REPRODUCTION ORDER PROCESSOR) Protein Fluid 1.2 Not Established For Fluids g/dL 11/06/2024 9:22 PM REPRODUCTION ORDER PROCESSOR [facility] Fluid Type Peritoneal Fluid 11/06/2024 9:22 PM REPRODUCTION ORDER PROCESSOR [facility] Fluid PERITONEAL FLUID / Unknown Collection / Unknown 11/06/2024 8:27 PM REPRODUCTION ORDER PROCESSOR 11/06/2024 8:32 PM REPRODUCTION ORDER PROCESSOR Narrative [facility] - 11/06/2024 9:22 PM REPRODUCTION ORDER PROCESSOR The analytical performance of this test has been independently validated by the laboratory. A reference range has not been established for this fluid. Comparison of this result with the concentration in blood, serum or plasma is recommended. Homer Hallman MD LAB - BODY FLUID ORD ERABLES Performing Organization Address City/[facility]/ZIP Co de Phone Number [address] [address], [facility] [phone] * GLUCOSE BODY FLUID (11/06/2024 8:27 PM REPRODUCTION ORDER PROCESSOR) Glucose Fluid 126 Not Established For Fluids mg/dL 11/06/2024 9:55 PM REPRODUCTION ORDER PROCESSOR [facility] Fluid Type Peritoneal Fluid 11/06/2024 9:55 PM REPRODUCTION ORDER PROCESSOR [facility] Fluid PERITONEAL FLUID / Unknown Collection / Unknown 11/06/2024 8:27 PM REPRODUCTION ORDER PROCESSOR 11/06/2024 8:32 PM REPRODUCTION ORDER PROCESSOR Narrative [facility] - 11/06/2024 9:55 PM REPRODUCTION ORDER PROCESSOR The analytical performance of this test has been independently validated by the laboratory. A reference range has not been established for this fluid. Comparison of this result with the concentration in blood, serum or plasma is recommended. Homer Hallman MD LAB - BODY FLUID ORD ERABLES [address] [address], [facility] [phone] * DIFFERENTIAL MANUAL FLUID (11/06/2024 8:27 PM REPRODUCTION ORDER PROCESSOR) Only the most recent of2 resultswithin the time period is included. Fluid Source Peritoneal 11/06/2024 10:05 PM [facility] Body Fluid Total Cell Count 100 x10E6/L 11/06/2024 10:05 PM [facility] Neutrophils Fluid Percent 16 % 11/06/2024 10:05 PM [facility] Lymphocytes Fluid Percent 43 % 11/06/2024 10:05 PM [facility] Comment:Reactive Lymphocytes present. Macrophages Fluid Percent 36 % 11/06/2024 10:05 PM [facility] Eosinophils Fluid Percent 5 % 11/06/2024 10:05 PM [facility] Fluid PERITONEAL FLUID / Unknown Collection / Unknown 11/06/2024 8:27 PM REPRODUCTION ORDER PROCESSOR 11/06/2024 8:32 PM [facility] - 11/06/2024 10:05 PM REPRODUCTION ORDER PROCESSOR No reference ranges established for body fluid differential cell counts. The test results must be integrated into the clinical context for interpretation. Homer Hallman MD LAB - BODY FLUID ORD ERABLES [facility] [address] [place] [address], [facility] [phone] * CELL COUNT W DIFFERENTIAL FLUID (11/06/2024 8:27 PM REPRODUCTION ORDER PROCESSOR) Only the most recent of2 resultswithin the time period is included. Fluid Source Peritoneal 11/06/2024 10:05 PM [facility] Fluid Appearance SLIGHTLY HAZY 11/06/2024 10:05 PM [facility] Fluid Color PALE YELLOW 11/06/2024 10:05 PM [facility] Total Nucleated Cells Fluid 92 Reference Range Not Established x10E6/L 11/06/2024 10:05 PM [facility] RBC Count Fluid <2,000 Reference Range Not Established x10E6/L 11/06/2024 10:05 PM [facility] Fluid PERITONEAL FLUID / Unknown Collection / Unknown 11/06/2024 8:27 PM REPRODUCTION ORDER PROCESSOR 11/06/2024 8:32 PM [facility] - 11/06/2024 10:05 PM REPRODUCTION ORDER PROCESSOR No reference ranges established for body fluid cell counts. Any reference ranges provided are derived from published literature. The test results must be integrated into the clinical context for interpretation. Homer Hallman MD LAB - BODY FLUID ORD ERABLES [facility] [address] [place] [address], [facility] [phone] * (ABNORMAL) CULTURE FLUID+GRAM STAIN (11/06/2024 8:15 PM REPRODUCTION ORDER PROCESSOR) Only the most recent of2 resultswithin the time period is included. Culture Light Achromobacter species(AA) ADOLPH 11/10/2024 4:24 AM [facility] Comment:Isolate is multi tammy g resistant organism (MDRO). Gram Stain Light Red blood cells 11/10/2024 4:24 AM [facility] Gram Stain Rare Polymorphonuclear cells 11/10/2024 4:24 AM [facility] Gram Stain No organisms seen 025 4:24 AM [facility] Other PERITONEAL FLUID / Unknown Collection / Unknown 11/06/2024 8:15 PM REPRODUCTION ORDER PROCESSOR 11/06/2024 8:32 PM REPRODUCTION ORDER PROCESSOR Narrative [facility] - 11/10/2024 4:24 AM REPRODUCTION ORDER PROCESSOR This isolate is a multidrug resistant organism [...] Hallman MD LAB - MICROBIOLOGY O RDERABLES [facility] [address] [place] [address], [facility] [phone] * Paracentesis (11/06/2024 6:28 PM REPRODUCTION ORDER PROCESSOR) Narrative Homer Hallman MD - 11/06/2024 6:28 PM REPRODUCTION ORDER PROCESSOR Homer Hallman MD 11/06/2024 8:11 PM Paracentesis [...] (COVID-19)+INFLU A+B PCR RAPID (11/06/2024 3:40 PM REPRODUCTION ORDER PROCESSOR) COVID-19 PCR Not detected Not detected 11/06/19 5:10 PM REPRODUCTION ORDER PROCESSOR [facility] Influenza A Rapid JOHNNIE Not Detected Not Detected 11/06/2024 5:10 PM REPRODUCTION ORDER PROCESSOR [facility] Influenza B JOHNNIE Rapid Not Detected Not Detected 11/06/2024 5:10 PM REPRODUCTION ORDER PROCESSOR [facility] Microbiology SPECIMEN FROM NASOPHARYNGEAL STRUCTURE / Unknown Collection / Unknown 11/06/2024 3:40 PM REPRODUCTION ORDER PROCESSOR 11/06/2024 4:29 PM REPRODUCTION ORDER PROCESSOR Narrative [facility] - 11/06/2024 5:10 PM REPRODUCTION ORDER PROCESSOR Influenza assay performed by [employer]. [...] acid amplification assay performance was validated by [facility]. This test has been authorized by [...] Hallman MD LAB - MICROBIOLOGY O RDERABLES [address] [address], [facility] [phone] * XR Chest 1Vw Portable (11/06/2024 2:29 PM REPRODUCTION ORDER PROCESSOR) Only the most recent of2 resultswithin the time period is included. Anatomical Region Laterality Modality Chest Digital Radiogra phy 11/06/2024 2:35 PM REPRODUCTION ORDER PROCESSOR Narrative 11/06/2024 2:46 PM REPRODUCTION ORDER PROCESSOR PROCEDURE: XR CHEST 1VW PORTABLE, DATE/TIME OF EXAM: 11/06/2024 2:30 PM, LOCATION [facility] INDICATION: G93.40: Encephalopathy, unspecified type ADDITIONAL CLINICAL [...] pneumothorax. Report dictated by Jonathan Torres MD, (Gin Operator). Christophe Haddad MD have personally reviewed and interpreted this examination/study. > Interpreting Provider: Christophe Rahman MD on 11/06/2024 2:46 PM Procedure Note Christophe Rahman MD - 11/06/2024 PROCEDURE: XR CHEST 1VW PORTABLE, DATE/TIME OF EXAM: 11/06/2024 2:30 PM, LOCATION [facility] INDICATION: G93.40: Encephalopathy, unspecified type ADDITIONAL CLINICAL [...] pneumothorax. Report dictated by Jonathan Torres MD, (Gin Operator). Christophe Haddad MD have personally reviewed and interpreted this examination/study. > Interpreting Provider: Christophe Rahman MD on 11/06/2024 2:46 PM Homer Hallman MD DIAGNOSTIC IMAGING O RDERABLES * LIPASE BLOOD (11/06/2024 12:54 PM REPRODUCTION ORDER PROCESSOR) Lipase 16 8 - 78 U/L 11/06/2024 1:37 PM REPRODUCTION ORDER PROCESSOR [facility] Blood BLOOD SPECIMEN / Unknown Venipuncture / Unknown 11/06/2024 12:54 PM REPRODUCTION ORDER PROCESSOR 11/06/2024 1:07 PM REPRODUCTION ORDER PROCESSOR Narrative [facility] - 11/06/2024 1:37 PM REPRODUCTION ORDER PROCESSOR Lipase results from the [employer] Al[employer] analyzer may not be comparable with other methodologies. Paris Quintero APRN-COLLEGE INTERN LAB - BOOM CAT OPERATOR RY ORDERABLES [facility] [address] [place] [address], [facility] [phone] * (ABNORMAL) CBC W/O DIFFERENTIAL (10/28/2024 6:14 AM REPRODUCTION ORDER PROCESSOR) Only the most recent of5 resultswithin the time period is included. WBC 3.0(L) 4.0 - 10.7 x10E9/L 10/28/2024 6:55 AM [facility] RBC Count 2.87(L) 4.30 - 5.80 x10E12/L 10/28/2024 6:55 AM [facility] Hemoglobin 8.9(L) 13.3 - 17.5 g/dL 10/28/2024 6:55 AM [facility] Hematocrit 26.5(L) 38.7 - 51.1 % 10/28/2024 6:55 AM [facility] MCV 92.3 80.0 - 98.0 fL 10/28/2024 6:55 AM [facility] MCH 31.0 26.7 - 33.6 pg 10/28/2024 6:55 AM [facility] MCHC 33.6 31.7 - 36.3 g/dL 10/28/2024 6:55 AM [facility] RDW-CV 16.5(H) 11.3 - 14.8 % 10/28/2024 6:55 AM [facility] Platelet Count 109(L) 150 - 420 x10E9/L 10/28/2024 6:55 AM [facility] MPV 10.9 7.8 - 11.4 fL 10/28/2024 6:55 AM [facility] Blood BLOOD SPECIMEN / Unknown Lab Venipuncture / Unknown 10/28/2024 6:14 AM REPRODUCTION ORDER PROCESSOR 10/28/2024 6:39 AM REPRODUCTION ORDER PROCESSOR Rigoberto Mcclain MD LAB - HEMATOLOGY ORD ERABLES [facility] [address] [place] [address], [facility] [phone] * (ABNORMAL) VITAMIN D 1,25 DIHYDROXY (10/26/2024 4:00 AM REPRODUCTION ORDER PROCESSOR) Vitamin D, 1,25 Dihydroxy 18.8(L) 19.9 - 79.3 pg/mL 10/29/2024 12:19 AM REPRODUCTION ORDER PROCESSOR [facility] ([facility]) Comment: INTERPRETIVE INFORMATION: Vitamin D, 1,25-Dihydroxy This test is primarily indicated during patient evaluation for hypercalcemia and renal failure. A normal result does not rule out Vitamin D deficiency. The recommended test for diagnosing Vitamin D deficiency is Vitamin D 25-hydroxy. Performed By: [facility] [address] [place] [address] Associate Store Manager: Armando Lowe MD, PhD CLIA Number: [id number] Blood BLOOD SPECIMEN / Unknown Venipuncture / Unknown 10/26/2024 4:00 AM REPRODUCTION ORDER PROCESSOR 10/26/2024 4:10 AM REPRODUCTION ORDER PROCESSOR Shravan Jessica MD LAB - CHEMISTRY OR DERABLES Performing Organization Address City/[facility]/ZIP Co de Phone Number [facility]) [address] [place] [address] * SODIUM URINE RANDOM (10/25/2024 10:40 AM REPRODUCTION ORDER PROCESSOR) Pathologist [facility] [place] Sodium Urine 30 Not Established mmol/L 10/25/2024 11:05 AM REPRODUCTION ORDER PROCESSOR [facility] Urine URINE SPECIMEN OBTAINED BY CLEAN CATCH PROCEDURE / Unknown Collection / Unknown 10/25/2024 10:40 AM REPRODUCTION ORDER PROCESSOR 10/25/2024 10:47 AM REPRODUCTION ORDER PROCESSOR Shravan Jessica MD LAB - URINE CHEMIS TRY ORDERABLES [address] [address], [facility] [phone] * US Abdomen Ltd W Comp Doppler (10/25/2024 8:20 AM REPRODUCTION ORDER PROCESSOR) Anatomical Region Laterality Modality Abdomen Ultrasound 10/25/2024 12:3 6 PM REPRODUCTION ORDER PROCESSOR Impressions 10/27/2024 1:43 AM REPRODUCTION ORDER PROCESSOR IMPRESSION: 1.Hepatic cirrhosis with sequela of portal hypertension including moderate to large volume ascites. 2.Mildly decreased velocity of flow within the main portal vein (13.9 cm/s). No portal vein thrombosis. Otherwise, normal hepatic Doppler evaluation. 3.No evidence of cholelithiasis or acute cholecystitis. > Dictated by Tom Barreto DO,(radiology specialist). I, Lalo St MD have personally reviewed and interpreted this examination/study. > Interpreting Provider: Lalo St MD on 10/27/2024 1:43 AM Narrative 10/27/2024 1:43 AM REPRODUCTION ORDER PROCESSOR PROCEDURE: US ABDOMEN LTD W COMP DOPPLER, DATE/TIME OF EXAM: 10/25/2024 8:54 AM, LOCATION [facility] INDICATION: K76.82: Hepatic encephalopathy (HCC) Ordering Provider [...] DOPPLER, DATE/TIME OF EXAM:10/25/2024 8:54 AM, LOCATION [facility] INDICATION: K76.82: Hepatic encephalopathy (HCC) Ordering Provider [...] cholecystitis. > Dictated by Tom Barreto DO,(radiology specialist). I, Lalo St MD have personally reviewed and interpreted this examination/study. > Interpreting Provider: Lalo St MD on 10/27/2024 1:43 AM Rigoberto Mcclain MD US ORDERABLES * PTH INTACT W/O CALCIUM (10/25/2024 4:54 AM REPRODUCTION ORDER PROCESSOR) PTH Intact 13.2 8.0 - 77.0 pg/mL 10/25/2024 6:19 AM REPRODUCTION ORDER PROCESSOR [facility] Blood BLOOD SPECIMEN / Unknown Lab Venipuncture / Unknown 10/25/2024 4:54 AM REPRODUCTION ORDER PROCESSOR 10/25/2024 5:46 AM REPRODUCTION ORDER PROCESSOR Rigoberto Mcclain MD LAB - CHEMISTRY JOHN PAUL RIVAS [facility] [address] [place] [address], [facility] [phone] * (ABNORMAL) PTH RELATED PEPTIDE (10/25/2024 4:54 AM REPRODUCTION ORDER PROCESSOR) PTH Related Peptide 3.1(H) 0.0 - 2.3 pmol/L 11/03/2024 1:05 PM REPRODUCTION ORDER PROCESSOR [employer] ([facility]) Comment: INTERPRETIVE INFORMATION: Parathyroid Hormone-Related Peptide This test was developed and its performance characteristics determined by [facility]. It has not been cleared or approved by the US Food and Drug Administration. This test was performed in a CLIA certified laboratory and is intended for clinical purposes. Performed By: [facility] [address] [place] [address] Associate Store Manager: Armando Lowe MD, PhD CLIA Number: [id number] Blood BLOOD SPECIMEN / Unknown Lab Venipuncture / Unknown 10/25/2024 4:54 AM REPRODUCTION ORDER PROCESSOR 10/25/2024 5:29 AM REPRODUCTION ORDER PROCESSOR Rigoberto Mcclain MD LAB - CHEMISTRY JOHN PAUL RIVAS [facility] [employer] [facility]) [address] [place] [address] * (ABNORMAL) VITAMIN D 25-HYDROXY (10/25/2024 4:54 AM REPRODUCTION ORDER PROCESSOR) Vitamin D, 25 Hydroxy 27.0(L) 30.0 - 80.0 ng/mL 10/25/2024 6:33 AM REPRODUCTION ORDER PROCESSOR [facility] Comment: The recommendations for 25-Hydroxy [...] Lab Venipuncture / Unknown 10/25/2024 4:54 AM REPRODUCTION ORDER PROCESSOR 10/25/2024 5:29 AM REPRODUCTION ORDER PROCESSOR Rigoberto Mcclain MD LAB - CHEMISTRY JOHN PAUL RIVAS Performing Organization Address City/[facility]/ZIP Co de Phone Number [address] [address], [facility] [phone] * LDH BLOOD (10/25/2024 4:54 AM REPRODUCTION ORDER PROCESSOR) LDH Total 203 125 - 243 Units/L 10/25/2024 6:19 AM [facility] Blood BLOOD SPECIMEN / Unknown Lab Venipuncture / Unknown 10/25/2024 4:54 AM REPRODUCTION ORDER PROCESSOR 10/25/2024 5:29 AM REPRODUCTION ORDER PROCESSOR Rigoberto Mcclain MD LAB - CHEMISTRY [facility] PAUL RIVAS Performing Organization Address City/[facility]/ZIP Co de Phone Number [address] [address], [place] [phone] * (ABNORMAL) CALCIUM IONIZED WHOLE BLOOD (10/24/2024 8:47 AM REPRODUCTION ORDER PROCESSOR) Calcium Ionized 1.54 mmol/L 10/24/2024 9:03 AM [facility] pH 7.41 7.35 - 7.45 pH 10/24/2024 9:03 AM [facility] Ionized Calcium pH Adjusted 1.55(H) 1.19 - 1.34 mmol/L 10/24/2024 9:03 AM [facility] Blood BLOOD SPECIMEN / Unknown Lab Venipuncture / Unknown 10/24/2024 8:47 AM REPRODUCTION ORDER PROCESSOR 10/24/2024 8:58 AM REPRODUCTION ORDER PROCESSOR Rigoberto Mcclain MD LAB - CHEMISTRY JOHN PAUL RIVAS Performing Organization Address City/[facility]/ZIP Co de Phone Number [facility] [address] [place] [address], [facility] [phone] * (ABNORMAL) HEMOGLOBIN A1C (10/24/2024 8:47 AM REPRODUCTION ORDER PROCESSOR) Hemoglobin A1c 7.9(H) <=5.6 % 10/24/2024 12:41 PM REPRODUCTION ORDER PROCESSOR [facility] Estimated Average Glucose 180 mg/dL 10/24/2024 12:41 PM [facility] Comment: HbA1c Interpretation: Normal : < 5.7% Pre-diabetes: 5.7-6.4% Diabetes: Equal to or greater than 6.5% Test results diagnostic of diabetes should be repeated for confirmation. Treatment target values recommended by ADA and other clinical organizations should be used to evaluate metabolic control in patients. Reference: [place] [employer], Standards of Care in Diabetes -2020 In patients 70 years and older consider HbA1c target range of 7.0-7.5% (Reference: Armen López et al. JAMDA. 2012) The Sebia assay for the measurement of HbA1c is a National Glycohemoglobin Standardization Program (NGSP) certified method. Blood BLOOD SPECIMEN / Unknown Lab Venipuncture / Unknown 10/24/2024 8:47 AM REPRODUCTION ORDER PROCESSOR 10/24/2024 9:01 AM REPRODUCTION ORDER PROCESSOR Rigoberto Mcclain MD LAB - CHEMISTRY JOHN PAUL RIVAS [facility] [address] [place] [address], [facility] [phone] * LACTIC ACID BLOOD (10/24/2024 8:47 AM REPRODUCTION ORDER PROCESSOR) Lactic Acid-Stat 2.0 <=2.0 mmol/L 10/24/2024 9:33 AM REPRODUCTION ORDER PROCESSOR [facility] Blood BLOOD SPECIMEN / Unknown Lab Venipuncture / Unknown 10/24/2024 8:47 AM REPRODUCTION ORDER PROCESSOR 10/24/2024 9:02 AM REPRODUCTION ORDER PROCESSOR Rigoberto Mcclain MD LAB - CHEMISTRY [facility] PAUL RIVAS [facility] [address] [place] [address], [facility] [phone] * (ABNORMAL) BLOOD GASES REINA + COOX PANEL (10/23/2024 6:25 PM REPRODUCTION ORDER PROCESSOR) pH Venous 7.45(H) 7.32 - 7.42 pH 10/23/2024 6:44 PM [facility] pO2 Venous 86(H) 35 - 40 mmHg 10/23/2024 6:44 PM [facility] pCO2 Venous 23(L) 40 - 50 mmHg 10/23/2024 6:44 PM [facility] HCO3 Venous 16.0(L) 20 - 30 mmol/L 10/23/2024 6:44 PM [facility] Base Excess Venous -6.8(L) -2.0 - 2.0 mmol/L 10/23/2024 6:44 PM [facility] Oxyhemoglobin Venous 96.1 % 10/05 6:44 PM [facility] Deoxyhemoglobin (HHB) Venous % 2.1 % 10/23/2024 6:44 PM [facility] Methemoglobin 0.8 0.0 - 2.0 % 10/23/2024 6:44 PM [facility] Carboxyhemoglobin 1.0 0.0 - 2.0 % 2023 6:44 PM [facility] O2 Content Venous 12.4 Interpret within clinical context ml/dL 10/23/2024 6:44 PM [facility] Hemoglobin by COOX 9.1(L) 12.0 - 17.6 g/dL 10/23/2024 6:44 PM [facility] O2 Saturation Venous 98 >=70 % 10/05 6:44 PM [facility] FI O2 Mixed Venous 21.0 % 2023 6:44 PM [facility] Blood BLOOD SPECIMEN / Unknown Lab Venipuncture / Unknown 10/23/2024 6:25 PM REPRODUCTION ORDER PROCESSOR 10/23/2024 6:36 PM REPRODUCTION ORDER PROCESSOR Narrative [facility] - 10/23/2024 6:44 PM REPRODUCTION ORDER PROCESSOR Carboxyhemoglobin Normal Concentration: Non-smokers: 0-2%; Smokers: 0-9%; Toxic: >20% Rigoberto Mcclain MD LAB - BLOOD GASES OR DERABLES Performing Organization Address City/[facility]/ZIP Co de Phone Number [address] [address], [facility] [phone] * (ABNORMAL) LACTIC ACID BLOOD REFLEX TO REPEAT (10/23/2024 6:11 PM REPRODUCTION ORDER PROCESSOR) Only the most recent of3 resultswithin the time period is included. Lactic Acid-Stat 7.9(HH) <=2.0 mmol/L 10/23/2024 6:46 PM REPRODUCTION ORDER PROCESSOR [facility] Blood BLOOD SPECIMEN / Unknown Lab Venipuncture / Unknown 10/23/2024 6:11 PM REPRODUCTION ORDER PROCESSOR 10/23/2024 6:18 PM REPRODUCTION ORDER PROCESSOR Paris Quintero APRN-SUSAN LAB - BOOM CAT OPERATOR RY ORDERABLES Performing Organization Address City/[facility] Co de Phone Number [address] [address], [facility] [phone] * Paracentesis (10/23/2024 4:59 PM REPRODUCTION ORDER PROCESSOR) Narrative Muna Waller MD - 10/23/2024 4:59 PM REPRODUCTION ORDER PROCESSOR Elma Deutsch MD 10/23/2024 5:01 PM Paracentesis [...] 9:50 PM 09/02/2024 2:53 PM Care Teams Web User Experience Strategist Relationship Specialty Start Date End Date Moses Conn MD [address] [place] [id number] PCP - General 01/04/23
[2024-12-25 09:36] LABS: Glucose Point of Care 145 mg/dl (65-105)
== END 2024-12-25 08:50 | disposition home or self-care (01) ==
PROVIDERS: PCP Internal Medicine; Visit Provider Internal Medicine Hematology & Oncology
DX: C90.00 Multiple myeloma not having achieved remission (principal); K74.60 Unspecified cirrhosis of liver; R18.8 Other ascites; J90 Pleural effusion, not elsewhere classified; J98.11 Atelectasis; N40.0 Benign prostatic hyperplasia without lower urinary tract symptoms; K80.20 Calculus of gallbladder without cholecystitis without obstruction; M43.06 Spondylolysis, lumbar region
CPT/HCPCS: 78815; A9552

== ENCOUNTER 2024-12-30 11:07 | Outpatient (RCR) | payer OTHER, SELFPAY ==
[2024-10-07 11:42] LABS: Mean Platelet Volume 11.2 fl (7.4-10.4); Platelet Count Result 127 k/mm3 (150-375)
[2024-10-07 11:59] LABS: INR 1.2; Prothrombin Time 15.9 Seconds (11.1-14.7)
[2024-11-18 11:42] LABS: Mean Platelet Volume 10.8 fl (7.4-10.4); Platelet Count Result 252 k/mm3 (150-375)
[2024-11-18 11:55] LABS: INR 1.3; Prothrombin Time 17.1 Seconds (11.1-14.7)
--- NOTE | ~2024-12-30 | US_ITS ---
EXAMINATION: US paracentesis abd w/image DATE: 10/14/2024 13:29 INDICATION: Alcoholic cirrhosis with ascites TECHNIQUE: The procedure and its risks and benefits were discussed with the patient. Potential risks discussed included bleeding and infection. The skin was prepped and draped in sterile fashion. 1% lid ocaine was used for local anesthesia. Under ultrasound guidance, a 5 Fr catheter with trochar was adv anced into the ascites in the right lower quadrant. Fluid was aspirated into vacuum bottles. The cath eter was removed, and a dressing was applied. There were no immediate complications. FINDINGS: Ultrasound images demonstrate ascites and the catheter within the fluid. IMPRESSION: 1. Successful ultrasound-guided paracentesis yielding 4650 mL of yellowish fluid. Reviewed, dictated and finalized at location A. SAW INSPECTOR IMPRESSION: 1. Successful ultrasound-guided paracentesis yielding 4650 mL of yellowish flu id.
--- NOTE | ~2024-12-30 | US_ITS ---
EXAMINATION: US paracentesis abd w/image DATE: 11/18/2024 12:38 INDICATION: Ascites. TECHNIQUE: The procedure and its risks, benefits, and alternatives were discussed with the patient. P otential risks discussed included bleeding and infection. The skin was prepped and draped in sterile fashion. 1% lidocaine was used for local anesthesia. Under ultrasound guidance, a 5 Fr catheter with trochar was advanced into the ascites in the left lower quadrant. Fluid was aspirated. The catheter w as removed, and a dressing was applied. There were no immediate complications. FINDINGS: Ultrasound images demonstrate ascites and the catheter within the fluid. IMPRESSION: 1. Successful ultrasound-guided paracentesis yielding 3250 mL of yellow fluid. Reviewed, dictated and finalized at location A. PHYSICIAN OFFICE
--- NOTE | ~2024-12-30 | US_ITS ---
EXAMINATION: US paracentesis abd w/image DATE: 10/21/2024 13:03 INDICATION: Non-Hodgkin's lymphoma. Ascites. TECHNIQUE: The procedure and its risks and benefits were discussed with the patient. Potential risks discussed included bleeding and infection. The skin was prepped and draped in sterile fashion. 1% lid ocaine was used for local anesthesia. Under ultrasound guidance, a 5 Fr catheter with trochar was adv anced into the ascites in the right lower quadrant. Fluid was aspirated into vacuum bottles. The cath eter was removed, and a dressing was applied. There were no immediate complications. FINDINGS: Ultrasound images demonstrate ascites and the catheter within the fluid. IMPRESSION: 1. Successful ultrasound-guided paracentesis yielding 3500 mL of yellowish fluid. Reviewed, dictated and finalized at location A. N OUT DRILLER IMPRESSION: 1. Successful ultrasound-guided paracentesis yielding 3500 mL of yellowish flu id.
--- NOTE | ~2024-12-30 | US_ITS ---
EXAMINATION: US paracentesis abd w/image DATE: 11/03/2024 13:23 INDICATION: Ascites. TECHNIQUE: The skin was prepped and draped in sterile fashion. 1% lidocaine was used for local anesth esia. Under ultrasound guidance, a 5 Fr catheter with trochar was advanced into the ascites in the [facility] lower quadrant. Fluid was aspirated. The catheter was removed, and a dressing was applied. There were no immediate complications. FINDINGS: Ultrasound images demonstrate ascites and the catheter within the fluid. IMPRESSION: 1. Successful ultrasound-guided paracentesis yielding 2900 mL of yellow fluid. Reviewed, dictated and finalized at location A. ENGINE LATHE SET UP OPERATOR
--- NOTE | ~2024-12-30 | US_ITS ---
EXAMINATION: US paracentesis abd w/image DATE: 11/25/2024 11:50 INDICATION: Ascites. TECHNIQUE: The procedure and its risks and benefits were discussed with the patient. Potential risks discussed included bleeding and infection. The skin was prepped and draped in sterile fashion. 1% lid ocaine was used for local anesthesia. Under ultrasound guidance, a 5 Fr catheter with trochar was adv anced into the ascites in the right lower quadrant. Fluid was aspirated into vacuum bottles. The cath eter was removed, and a dressing was applied. There were no immediate complications. FINDINGS: Ultrasound images demonstrate ascites and the catheter within the fluid. IMPRESSION: 1. Successful ultrasound-guided paracentesis yielding 3000 mL of yellowish fluid. Reviewed, dictated and finalized at location A. AND YARD SUPERVISOR IMPRESSION: 1. Successful ultrasound-guided paracentesis yielding 3000 mL of yellowish flu id.
--- NOTE | ~2024-12-30 | US_ITS ---
EXAMINATION: US paracentesis abd w/image DATE: 10/07/2024 12:53 INDICATION: Ascites. TECHNIQUE: The skin was prepped and draped in sterile fashion. 1% lidocaine was used for local anesth esia. Under ultrasound guidance, a 5 Fr catheter with trochar was advanced into the ascites in the [facility] lower quadrant. Fluid was aspirated. The catheter was removed, and a dressing was applied. There were no immediate complications. FINDINGS: Ultrasound images demonstrate ascites and the catheter within the fluid. IMPRESSION: 1. Successful ultrasound-guided paracentesis yielding 3250 mL of yellow fluid. Reviewed, dictated and finalized at location A. RVISOR CONTACT LENS
--- NOTE | ~2024-12-30 | US_ITS ---
EXAMINATION: US paracentesis abd w/image DATE: 12/16/2024 14:15 INDICATION: Ascites due to alcoholic cirrhosis. TECHNIQUE: The skin was prepped and draped in sterile fashion. 1% lidocaine was used for local anesth esia. Under ultrasound guidance, a 5 Fr catheter with trochar was advanced into the ascites in the [facility] lower quadrant. Fluid was aspirated. The catheter was removed, and a dressing was applied. There were no immediate complications. FINDINGS: Ultrasound images demonstrate ascites and the catheter within the fluid. IMPRESSION: 1. Successful ultrasound-guided paracentesis yielding 3700 mL of yellow fluid. Reviewed, dictated and finalized at location A. INVESTIGATOR
--- NOTE | ~2024-12-30 | US_ITS ---
EXAMINATION: US paracentesis abd w/image DATE: 12/30/2024 12:05 INDICATION: Ascites. TECHNIQUE: The procedure and its risks, benefits, and alternatives were discussed with the patient. P otential risks discussed included bleeding and infection. The skin was prepped and draped in sterile fashion. 1% lidocaine was used for local anesthesia. Under ultrasound guidance, a 5 Fr catheter with trochar was advanced into the ascites in the left lower quadrant. Fluid was aspirated. The catheter w as removed, and a dressing was applied. There were no immediate complications. FINDINGS: Ultrasound images demonstrate ascites and the catheter within the fluid. IMPRESSION: 1. Successful ultrasound-guided paracentesis yielding 4800 mL of yellow fluid. Reviewed, dictated and finalized at location A. ORATE TRAVEL AGENT
--- NOTE | ~2024-12-30 | US_ITS ---
EXAMINATION: US paracentesis abd w/image DATE: 12/09/2024 11:20 INDICATION: Ascites. TECHNIQUE: The procedure and its risks, benefits, and alternatives were discussed with the patient. P otential risks discussed included bleeding and infection. The skin was prepped and draped in sterile fashion. 1% lidocaine was used for local anesthesia. Under ultrasound guidance, a 5 Fr catheter with trochar was advanced into the ascites in the right lower quadrant. Fluid was aspirated. The catheter was removed, and a dressing was applied. There were no immediate complications. FINDINGS: Ultrasound images demonstrate ascites and the catheter within the fluid. IMPRESSION: 1. Successful ultrasound-guided paracentesis yielding 1950 mL of yellow fluid. Reviewed, dictated and finalized at location A. ENT REGISTRATION REPRESENTATIVE
== END 2025-01-05 23:59 | disposition home or self-care (01) ==
LOC: ANHIMG 11:07
PROVIDERS: Radiology Diagnostic Radiology; PCP Internal Medicine; Visit Provider Internal Medicine Hematology & Oncology
DX: K70.31 Alcoholic cirrhosis of liver with ascites (principal)
CPT/HCPCS: 36415; 49083; 85049; 85610

== ENCOUNTER 2025-04-02 09:59 | Outpatient (RCR) | payer OTHER, SELFPAY ==
[2025-01-06 14:33] LABS: Mean Platelet Volume 10.9 fl (7.4-10.4); Platelet Count Result 137 k/mm3 (150-375)
[2025-01-06 15:06] LABS: INR 1.3; Prothrombin Time 16.9 Seconds (11.1-14.7)
[2025-02-24 13:51] LABS: Mean Platelet Volume 11.3 fl (7.4-10.4); Platelet Count Result 156 k/mm3 (150-375)
[2025-02-24 14:04] LABS: INR 1.4; Prothrombin Time 17.3 Seconds (11.1-14.7)
--- NOTE | ~2025-04-02 | US_ITS ---
EXAMINATION: US paracentesis abd w/image DATE: 03/26/2025 12:08 INDICATION: Ascites acute alcoholic cirrhosis TECHNIQUE: The procedure and its risks and benefits were discussed with the patient. Potential risks discussed included bleeding and infection. The skin was prepped and draped in sterile fashion. 1% lid ocaine was used for local anesthesia. Under ultrasound guidance, a 5 Fr catheter with trochar was adv anced into the ascites in the left lower quadrant. Fluid was aspirated into vacuum bottles. The laquita ter was removed, and a dressing was applied. There were no immediate complications. FINDINGS: Ultrasound images demonstrate ascites and the catheter within the fluid. IMPRESSION: 1. Successful ultrasound-guided paracentesis yielding 4000 mL of clear yellow fluid. Reviewed, dictated and finalized at location A.
--- NOTE | ~2025-04-02 | US_ITS ---
ULTRASOUND-GUIDED PARACENTESIS INDICATION: Lymphoma with malignant ascites. TECHNIQUE/FINDINGS: All risks, benefits, and alternatives of this procedure were thoroughly discussed with the patient an d all questions were answered. The time out procedure was performed and the patient was properly taurus ntified. Witnessed written and verbal informed consent was then obtained from the patient. The sonographic ev aluation of the abdomen demonstrated a large amount of anechoic ascitic fluid in the right upper quad rant of the abdomen which was targeted for paracentesis. Following local analgesia with 1% lidocaine , a centesis catheter was inserted into the right peritoneal cavity, and the needle was removed. A to naeem of 5000 cc of thin cream-colored fluid was drained. The catheter removed and a sterile dressing a pplied. The patient tolerated the procedure without difficulty and was discharged from the radiology Department after appropriate observation, as per protocol. Impression: 1. Technically successful ultrasound guided right upper quadrant paracentesis yielding 5000 cc of th in increasing colored fluid. 2. No immediate complications. 3. A specimen will be sent for triglycerides evaluation. Reviewed, dictated and finalized at location A. Impression: 1. Technically successful ultrasound guided right upper quadrant paracentesis yielding 5000 cc of thin increasing colored fluid. 2. No immediate complications. 3. A specimen will be sent for triglycerides evaluation.
--- NOTE | ~2025-04-02 | US_ITS ---
EXAMINATION: US paracentesis abd w/image DATE: 02/24/2025 14:55 INDICATION: Ascites. TECHNIQUE: The procedure and its risks and benefits were discussed with the patient. Potential risks discussed included bleeding and infection. The skin was prepped and draped in sterile fashion. 1% lid ocaine was used for local anesthesia. Under ultrasound guidance, a 5 Fr catheter with trochar was adv anced into the ascites in the left lower quadrant. Fluid was aspirated into vacuum bottles. The laquita ter was removed, and a dressing was applied. There were no immediate complications. FINDINGS: Ultrasound images demonstrate ascites and the catheter within the fluid. IMPRESSION: 1. Successful ultrasound-guided paracentesis yielding 5000 mL of yellow fluid. Reviewed, dictated and finalized at location A.
--- NOTE | ~2025-04-02 | US_ITS ---
EXAMINATION: US paracentesis abd w/image DATE: 02/19/2025 13:41 INDICATION: Ascites due to alcoholic cirrhosis. TECHNIQUE: The procedure and its risks and benefits were discussed with the patient. Potential risks discussed included bleeding and infection. The skin was prepped and draped in sterile fashion. 1% lid ocaine was used for local anesthesia. Under ultrasound guidance, a 5 Fr catheter with trochar was adv anced into the ascites in the left lower quadrant. Fluid was aspirated into vacuum bottles. The laquita ter was removed, and a dressing was applied. There were no immediate complications. FINDINGS: Ultrasound images demonstrate ascites and the catheter within the fluid. IMPRESSION: 1. Successful ultrasound-guided paracentesis yielding 5000 mL of yellow fluid. Reviewed, dictated and finalized at location A.
--- NOTE | ~2025-04-02 | US_ITS ---
EXAMINATION: US paracentesis abd w/image DATE: 03/09/2025 11:44 INDICATION: Ascites due to cirrhosis TECHNIQUE: The procedure and its risks and benefits were discussed with the patient. Potential risks discussed included bleeding and infection. The skin was prepped and draped in sterile fashion. 1% lid ocaine was used for local anesthesia. Under ultrasound guidance, a 5 Fr catheter with trochar was adv anced into the ascites in the left lower quadrant. Fluid was aspirated into vacuum bottles. The laquita ter was removed, and a dressing was applied. There were no immediate complications. FINDINGS: Ultrasound images demonstrate ascites and the catheter within the fluid. IMPRESSION: 1. Successful ultrasound-guided paracentesis yielding 5000 mL of yellow-colored fluid. Reviewed, dictated and finalized at location A. IMPRESSION: 1. Successful ultrasound-guided paracentesis yielding 5000 mL of yellow-colore d fluid.
--- NOTE | ~2025-04-02 | US_ITS ---
Procedure: Ultrasound guided paracentesis. Indication: Ascites Operating Physician: Mitch Stewart MD Consent: After a detailed discussion of the procedure, risks, benefits and alternative treatment opti ons, informed consent was obtained from the patient. Time Out: A time out for procedure was performed in presence of Dr. Stewart. The patient's identificati on was verified. Informed consent with agreement of procedure was reviewed. All necessary equipment w as available prior to procedure. Complications: None. Anesthesia: Local. Medication: 1% lidocaine locally. Procedure: Survey ultrasound of the abdomen was performed. Right lower quadrant of abdomen was preppe d and draped in usual sterile fashion. Local anesthesia was administered. The peritoneal cavity was a ccessed and 5 L serous fluid was removed. The catheter was removed and sterile dressing was applied. Patient tolerated the procedure. The procedure was personally performed by Dr. Stewart. Findings: Sonographic images demonstrate ascites. Impression: Successful ultrasound guided paracentesis. Reviewed, dictated and finalized at location A. Impression: Successful ultrasound guided paracentesis.
--- NOTE | ~2025-04-02 | US_ITS ---
EXAMINATION: US paracentesis abd w/image DATE: 02/03/2025 14:03 INDICATION: Ascites acute alcoholic cirrhosis TECHNIQUE: The procedure and its risks and benefits were discussed with the patient. Potential risks discussed included bleeding and infection. The skin was prepped and draped in sterile fashion. 1% lid ocaine was used for local anesthesia. Under ultrasound guidance, a 5 Fr catheter with trochar was adv anced into the ascites in the left lower quadrant. Fluid was aspirated into vacuum bottles. The laquita ter was removed, and a dressing was applied. There were no immediate complications. FINDINGS: Ultrasound images demonstrate ascites and the catheter within the fluid. IMPRESSION: 1. Successful ultrasound-guided paracentesis yielding 5000 mL of foamy light yellow-colored fluid. Reviewed, dictated and finalized at location A. IMPRESSION: 1. Successful ultrasound-guided paracentesis yielding 5000 mL of foamy light y ellow-colored fluid.
--- NOTE | ~2025-04-02 | US_ITS ---
EXAMINATION: US paracentesis abd w/image DATE: 04/02/2025 10:57 INDICATION: Ascites. TECHNIQUE: The procedure and its risks and benefits were discussed with the patient. Potential risks discussed included bleeding and infection. The skin was prepped and draped in sterile fashion. 1% lid ocaine was used for local anesthesia. Under ultrasound guidance, a 5 Fr catheter with trochar was adv anced into the ascites in the left lower quadrant. Fluid was aspirated into vacuum bottles. The laquita ter was removed, and a dressing was applied. There were no immediate complications. FINDINGS: Ultrasound images demonstrate ascites and the catheter within the fluid. IMPRESSION: 1. Successful ultrasound-guided paracentesis yielding 3900 mL of straw-colored fluid. Reviewed, dictated and finalized at location A.
--- NOTE | ~2025-04-02 | US_ITS ---
EXAMINATION: US paracentesis abd w/image DATE: 01/06/2025 13:58 INDICATION: Ascites. TECHNIQUE: The skin was prepped and draped in sterile fashion. 1% lidocaine was used for local anesth esia. Under ultrasound guidance, a 5 Fr catheter with trochar was advanced into the ascites in the le ft lower quadrant. Fluid was aspirated. The catheter was removed, and a dressing was applied. There w ere no immediate complications. FINDINGS: Ultrasound images demonstrate ascites and the catheter within the fluid. IMPRESSION: 1. Successful ultrasound-guided paracentesis yielding 5000 mL of yellow fluid. Reviewed, dictated and finalized at location A. [employer]
--- NOTE | ~2025-04-02 | US_ITS ---
EXAMINATION: US paracentesis abd w/image DATE: 01/20/2025 14:02 INDICATION: Ascites acute alcoholic cirrhosis. TECHNIQUE: The procedure and its risks and benefits were discussed with the patient. Potential risks discussed included bleeding and infection. The skin was prepped and draped in sterile fashion. 1% lid ocaine was used for local anesthesia. Under ultrasound guidance, a 5 Fr catheter with trochar was adv anced into the ascites in the left lower quadrant. Fluid was aspirated into vacuum bottles. The laquita ter was removed, and a dressing was applied. There were no immediate complications. FINDINGS: Ultrasound images demonstrate ascites and the catheter within the fluid. IMPRESSION: 1. Successful ultrasound-guided paracentesis yielding 5000 mL of clear yellow fluid. Reviewed, dictated and finalized at location A.
== END 2025-04-06 23:59 | disposition home or self-care (01) ==
LOC: ANHIMG 09:59
PROVIDERS: Radiology Diagnostic Radiology; PCP Internal Medicine; Visit Provider Internal Medicine Hematology & Oncology
DX: K70.31 Alcoholic cirrhosis of liver with ascites (principal); C85.90 Non-Hodgkin lymphoma, unspecified, unspecified site
CPT/HCPCS: 36415; 49083; 84478; 85049; 85610; C1729

== ENCOUNTER 2025-04-09 12:57 | Outpatient (RCR) | payer OTHER, SELFPAY ==
--- NOTE | ~2025-04-09 | US_ITS ---
EXAMINATION: US paracentesis abd w/image DATE: 04/09/2025 13:54 INDICATION: Ascites. TECHNIQUE: The procedure and its risks and benefits were discussed with the patient. Potential risks discussed included bleeding and infection. The skin was prepped and draped in sterile fashion. 1% lid ocaine was used for local anesthesia. Under ultrasound guidance, a 5 Fr catheter with trochar was adv anced into the ascites in the left lower quadrant. Fluid was aspirated into vacuum bottles. The laquita ter was removed, and a dressing was applied. There were no immediate complications. FINDINGS: Ultrasound images demonstrate ascites and the catheter within the fluid. IMPRESSION: 1. Successful ultrasound-guided paracentesis yielding 1500 mL of yellowish fluid. Reviewed, dictated and finalized at location A. IMPRESSION: 1. Successful ultrasound-guided paracentesis yielding 1500 mL of yellowish flu id.
[2025-04-09 13:10] LABS: Platelet Count Result 138 k/mm3 (150-375)
[2025-04-09 13:38] LABS: INR 1.9; Prothrombin Time 21.5 Seconds (11.1-14.7)
== END 2025-07-08 23:59 | disposition home or self-care (01) ==
LOC: ANHIMG 12:57
PROVIDERS: Radiology Diagnostic Radiology; PCP Internal Medicine; Visit Provider Internal Medicine Hematology & Oncology
DX: K70.31 Alcoholic cirrhosis of liver with ascites (principal)
CPT/HCPCS: 36415; 49083; 85049; 85610